=== PATIENT | male | born 1950 | race Caucasian/White ===

== ENCOUNTER 2019-05-14 08:26 | Inpatient (IN) | payer MEDICARE, OTHER ==
[2019-05-14] VITALS (20 sets, daily range): BP systolic 97–162; BP diastolic 40–79
[~2019-05-14] VITALS: Ht 182.9 cm; Wt 151.0 kg
[~2019-05-14 08:26] MED LIST: ASP81TEC PO; GLIM2TAB PO; LISI1TAB10 PO; METO25TA PO; MTF500T PO; MULT-974 PO; NAPR220C11 PO; PRV20T PO
--- OUTSIDE RECORDS SUMMARY | 2019-05-14 09:27 | XMS REPORT ---
Author Author CONSTANCE HERNANDEZ Organization [facility] Address [address] [place] [address] Care Team Providers Care Traverse Rod Assembler Name Role Phone CONSTANCE HERNANDEZ Unavailable PROBLEMS Type Condition ICD9-CM Code QLN17-SU Code Onset Dates Condition Status SNOMED Code Assessment Dental examination Z01.20 Oct, Active [id number] ALLERGIES Substance Reaction Event Type Date Status N.K.D.A. Unknown Non Drug Allergy Oct, Unknown SOCIAL HISTORY No smoking Hx information available PLAN OF CARE VITAL SIGNS Blood pressure systolic 158 mmHg 2016-11-06 Blood pressure diastolic 88 mmHg 2016-11-06 MEDICATIONS Medication Instructions Dosage Frequency Start Date End Date Duration Status Amoxicillin 500 MG Orally 4 times a day 1 capsule 6h 7 days Active Metoprolol-HCTZ ER Active Pravastatin Sodium Active Metformin HCl Active Lisinopril Active RESULTS No Results PROCEDURES Procedure Date Ordered Related Diagnosis Body Site COMP ORAL EVALUATION - NEW/EST PT Nov 06, 2016 BITEWINGS - FOUR FILMS Nov 06, 2016 Full mouth debridement Nov 06, 2016 PANORAMIC FILM SEE ALSO CODE [id number] Nov 06, 2016 IMMUNIZATIONS No Known Immunizations
--- OUTSIDE RECORDS SUMMARY | 2019-05-14 09:28 | XMS REPORT ---
Author Author EDILSON Fong [facility] Address Unknown Care Team Providers Care Stitch Bonding Machine Tender Helper Name Role Phone EDILSON Fong Unavailable PROBLEMS Unknown Problems ALLERGIES Substance Reaction Event Type Date Status N.K.D.A. Unknown Non Drug Allergy Oct, Unknown SOCIAL HISTORY No smoking Hx information available PLAN OF CARE Activity Details Follow Up prn Reason:celestino/hygiene VITAL SIGNS Blood pressure systolic 154 mmHg 2016-10-14 Blood pressure diastolic 75 mmHg 2016-10-14 MEDICATIONS Medication Instructions Dosage Frequency Start Date End Date Duration Status Lisinopril Active Pravastatin Sodium Active Amoxicillin 500 MG Orally 4 times a day 1 capsule 6h 7 days Active Metformin HCl Active Metoprolol-HCTZ ER Active RESULTS No Results PROCEDURES Procedure Date Ordered Related Diagnosis Body Site EXTRAC ERUPTED TOOTH/EXPOSED ROOT Oct 14, 2016 IMMUNIZATIONS No Known Immunizations
--- OUTSIDE RECORDS SUMMARY | 2019-05-14 09:28 | XMS REPORT ---
Author Author EDILSON Fong [facility] Address Unknown Care Team Providers Care Centrifugal Screen Tender Name Role Phone EDILSON Fong Unavailable PROBLEMS Unknown Problems ALLERGIES Substance Reaction Event Type Date Status N.K.D.A. Unknown Non Drug Allergy Dec, Unknown SOCIAL HISTORY No smoking Hx information available PLAN OF CARE VITAL SIGNS Blood pressure systolic 140 mmHg 2016-12-31 Blood pressure diastolic 93 mmHg 2016-12-31 MEDICATIONS Medication Instructions Dosage Frequency Start Date End Date Duration Status Metoprolol-HCTZ ER Active Amoxicillin 500 MG Orally 4 times a day 1 capsule 6h 7 days Active Pravastatin Sodium Active Metformin HCl Active Lisinopril Active RESULTS No Results PROCEDURES Procedure Date Ordered Related Diagnosis Body Site RESIN COMPOS - 3 SURFACES POSTERIOR Dec 31, 2016 Billing Notes on claim Dec 31, 2016 IMMUNIZATIONS No Known Immunizations
--- OUTSIDE RECORDS SUMMARY | 2019-05-14 09:28 | XMS REPORT | Continuity of Care Document ---
Author Author [facility] Organization [facility] Address Unknown Phone Unavailable Care Team Providers Care Refuge Manager Name Role Phone NO, LOCAL PHYSICIAN PP Unavailable Insurance Providers Payer Name Policy Number Subscriber Name Relationship Self Pay ShefaliMaranda Carrie 01 Self / Same As Patient Advance Directives Directive Response Recorded Date Advance Directives N 08/23/13 3:39pm Health Care Power of Mercury Cracking Tester N 08/23/13 3:39pm Organ Donor N 08/23/13 3:39pm Problems No Known Problems or Medical conditions. Family History History Response Recorded Date/Time Hx Family Cancer Y 08/23/13 3:34pm Hx Family Breast Cancer Y Mother 08/23/13 3:34pm Hx Family Colorectal Cancer Y Mother's side 08/23/13 3:34pm Hx Family Cardiac Disorders Y 08/23/13 3:34pm Hx Family Stroke N 08/23/13 3:34pm Hx Family Hypertension Y 08/23/13 3:34pm Hx Family Myocardial Infarction Y 08/23/13 3:34pm Hx Family Cystic Fibrosis N 08/23/13 3:34pm Social History History Response Recorded Date/Time Alcohol Use Denies Use 08/23/13 3:26pm Recreational Drug Use N 08/23/13 3:26pm Recent Foreign Travel N 08/23/13 3:26pm Recent Infectious Disease Exposure N 08/23/13 3:26pm Hospitalization with Isolation Denies 08/24/13 8:59pm Allergies, Adverse Reactions, Alerts Allergen Type Severity Reaction Last Updated No Known Drug Allergies 08/23/13 Medications Medication Dose Units Route Sig Qty Days Naproxen Sodium (Aleve) 2 Tab PO DAILY PRN Multivitamin (Multi Vitamin Daily) 1 Each PO DAILY Aspirin (Aspirin Ec 81 Mg) 81 Mg PO DAILY Glimepiride 2 Mg PO DAILY HCTZ/Lisinopril (Lisinopril-Hctz 20-25MG Tab) 20 Each PO DAILY Pravastatin Sod (Pravachol (Non-Formulary)) 40 Mg PO DAILY Metformin HCl (Metformin 500 Mg) 2 Each PO BID Metoprolol Succinate 12.5 Mg PO DAILY Response Recorded Date/Time Status not known Unknown Results Test Date Result Interp. Ref. Range Activated Partial Thromboplast Time August 23, 2013 11:40am 32 SEC N 24-35 Alanine Aminotransferase (ALT/SGPT) August 23, 2013 11:40am 52 U/L N 30-65 Albumin August 23, 2013 11:40am 3.7 G/DL N 3.4-5.0 Alkaline Phosphatase August 23, 2013 11:40am 96 U/L N 50-136 Amylase Level August 23, 2013 11:40am 38 U/L N 25-115 Aspartate Amino Transf (AST/SGOT) August 23, 2013 11:40am 29 U/L N 15-37 BUN/Creatinine Ratio August 23, 2013 11:40am 18 - Basophils # (Auto) August 23, 2013 11:40am 0.0 10^3/uL N 0.0-0.1 Basophils (%) (Auto) August 23, 2013 11:40am 1 % N 0-10 Blood Urea Nitrogen August 23, 2013 11:40am 16 MG/DL N 7-18 Calcium Level August 23, 2013 11:40am 8.9 MG/DL N 8.5-10.1 Carbon Dioxide Level August 23, 2013 11:40am 31 MMOL/L N 21-32 Chloride Level August 23, 2013 11:40am 103 MMOL/L N 101-110 Creatine Kinase MB August 23, 2013 11:40am 1.6 NG/ML N 0.0-3.6 Creatinine August 23, 2013 11:40am 0.9 MG/DL N 0.6-1.3 D-Dimer August 23, 2013 11:40am 0.24 UG/ML N 0.00-0.49 Eosinophils # (Auto) August 23, 2013 11:40am 0.3 10^3/uL N 0.0-0.3 Eosinophils (%) (Auto) August 23, 2013 11:40am 4 % N 0-10 Glucose Level August 23, 2013 11:40am 124 MG/DL H 74-106 Hematocrit August 23, 2013 11:40am 47 % N 40-54 Hemoglobin August 23, 2013 11:40am 15.9 G/DL N 13.3-17.7 Lipase August 23, 2013 11:40am 242 U/L N 73-393 Lymphocytes # (Auto) August 23, 2013 11:40am 2.5 X 10^3 N 1.0-4.0 Lymphocytes (%) (Auto) August 23, 2013 11:40am 30 % N 12-44 Magnesium Level August 23, 2013 11:40am 1.4 MG/DL L 1.8-2.4 Mean Corpuscular Hemoglobin August 23, 2013 11:40am 32 PG N 25-34 Mean Corpuscular Hemoglobin Concent August 23, 2013 11:40am 34 G/DL N 32-36 Mean Corpuscular Volume August 23, 2013 11:40am 93 FL N 80-99 Mean Platelet Volume August 23, 2013 11:40am 11.5 FL H 7.4-10.4 Monocytes # (Auto) August 23, 2013 11:40am 0.7 X 10^3 N 0.0-1.0 Monocytes (%) (Auto) August 23, 2013 11:40am 8 % N 0-12 Neutrophils # (Auto) August 23, 2013 11:40am 5.0 X 10^3 N 1.8-7.8 Neutrophils (%) (Auto) August 23, 2013 11:40am 58 % N 42-75 Platelet Count August 23, 2013 11:40am 170 10^3/uL N 130-400 Potassium Level August 23, 2013 11:40am 4.5 MMOL/L N 3.6-5.0 Prothrombin Time August 23, 2013 11:40am 12.6 SEC N 12.2-14.7 Red Blood Count August 23, 2013 11:40am 5.04 10^6/uL N 4.35-5.85 Red Cell Distribution Width August 23, 2013 11:40am 14.8 % H 10.0-14.5 Sodium Level August 23, 2013 11:40am 139 MMOL/L N 135-145 Total Bilirubin August 23, 2013 11:40am 0.3 MG/DL N 0.0-1.0 Total Creatine Kinase August 23, 2013 11:40am 92 U/L N 1-205 Total Protein August 23, 2013 11:40am 7.5 G/DL N 6.4-8.2 Troponin I August 23, 2013 11:40am < 0.10 NG/ML 0.00-0.10 White Blood Count August 23, 2013 11:40am 8.5 10^3/uL N 4.3-11.0 Pro-B-Type Natriuretic Peptide August 23, 2013 11:40am 34.7 PG/ML N -125 Estimat Glomerular Filtration Rate August 23, 2013 11:40am > 60 - INR Comment August 23, 2013 11:40am 1.0 N 0.8-1.4 Encounters Encounter Location Date/Time Discharged Inpatient [facility] 08/23/13 1:35pm
--- OUTSIDE RECORDS SUMMARY | 2019-05-14 09:28 | XMS REPORT | Continuity of Care Document ---
Author Organization Unknown Address Unknown Allergies Active Description Code Type Severity Reaction Onset Reported/Identified Relationship to Patient Clinical Status Yes NO KNOWN DRUG ALLERGIES NO KNOWN DRUG ALLERG UNKNOWN Yes NO KNOWN DRUG ALLERGIES UNKNOWN NO KNOWN DRUG ALLERG Yes NO KNOWN DRUG ALLERGIES UNKNOWN UNKNOWN Yes No Known Drug Allergies [id number] Drug Allergy Unknown N/A 08/23/2013 Medications Medication Packaging Start Date Stop Date Route Dosage Sig ORPHENADRINE INJ 60 MG/2CC (NORFLEX) MG 11/25/2016 11/25/2016 ONCE&2210 KETOROLAC VIAL INJ 30 MG/CC (TORADOL VIAL) MG 11/25/2016 11/25/2016 ONCE&2210 CYCLOBENZAPRINE TAB 10 MG (FLEXERIL) MG 11/25/2016 11/25/2016 PRN ONCE METFORMIN TAB 500 MG (GLUCOPHAGE) Dose(s) 08/03/2018 08/10/2018 BID&0800,2000 FAMOTIDINE TAB 20 MG (PEPCID) Dose(s) 08/03/2018 08/10/2018 BID&0800,2000 GLIMEPIRIDE TAB 2 MG (AMARYL) Dose(s) 08/03/2018 08/10/2018 BID&0800,2000 METOPROLOL TAB 25 MG (LOPRESSOR) Dose(s) 08/03/2018 08/10/2018 BID&0800,2000 NORMAL SALINE 500CC IV BAG INJ 0.9 % (NS 500CC IV BAG) ml 08/03/2018 08/18/2018 CONTINUOUSEVERY 0 Hour DICLOFENAC GEL GEL 1 % (VOLTAREN GEL) Dose(s) 08/03/2018 08/10/2018 PRN Q6H CLOPIDOGREL TAB 75 MG (PLAVIX) Dose(s) 08/04/2018 08/10/2018 Daily&0900 ASPIRIN 81MG CHEWABLE TAB 81 MG (BABY ASPIRIN) Dose(s) 08/04/2018 08/10/2018 Daily&0900 MultiVits (Thera M Plus) (hyvwkpbc-pigb-zukpyhu) oral tablet Dose(s) 08/04/2018 09/02/2018 Daily&0900 LISINOPRIL TAB 10 MG (ZESTRIL) Dose(s) 08/04/2018 08/10/2018 Daily&0900 LACTATED RINGERS 1000CC IV BAG INJ ml 10/05/2018 10/12/2018 CONTINUOUSEVERY 0 Hour Problems Date Dx Coded Attending Type Code Diagnosis Diagnosed By 11/25/2016 NAIMA GAN 250.00 DIABETES MELLITUS WITHOUT MENTION OF COMPLICATION, TYPE II OR UNSPECIFIED TYPE, NOT STATED UNCONTROLLED 11/25/2016 NAIMA GAN 272.4 OTHER AND UNSPECIFIED HYPERLIPIDEMIA 11/25/2016 NAIMA GAN 401.9 UNSPECIFIED ESSENTIAL HYPERTENSION 11/25/2016 NAIMA GAN 719.41 PAIN IN JOINT INVOLVING SHOULDER REGION 11/25/2016 NAIMA GAN 847.0 11/25/2016 NAIMA GAN E11.9 TYPE 2 DIABETES MELLITUS WITHOUT COMPLICATIONS 11/25/2016 NAIMA GAN E78.5 HYPERLIPIDEMIA, UNSPECIFIED 11/25/2016 NAIMA GAN I10 ESSENTIAL (PRIMARY) HYPERTENSION 11/25/2016 NAIMA GAN M25.512 PAIN IN LEFT SHOULDER 11/25/2016 NAIMA GAN S16.1XXA STRAIN OF MUSCLE, FASCIA AND TENDON AT NECK LEVEL, INITIAL ENCOUNTER 09/17/2017 Paris Moreno 443.9 PERIPHERAL VASCULAR DISEASE, UNSPECIFIED 09/17/2017 Paris Moreno 443.9 PERIPHERAL VASCULAR DISEASE, UNSPECIFIED 02/24/2018 A 491.20 OBSTRUCTIVE CHRONIC BRONCHITIS, WITHOUT EXACERBATION 02/24/2018 A J44.9 CHRONIC OBSTRUCTIVE PULMONARY DISEASE, UNSPECIFIED 06/02/2018 Andry Arroyo A 491.20 OBSTRUCTIVE CHRONIC BRONCHITIS, WITHOUT EXACERBATION 06/02/2018 Andry Arroyo J44.9 CHRONIC OBSTRUCTIVE PULMONARY DISEASE, UNSPECIFIED 06/19/2018 ARIADNA KAUFMAN 726.11 CALCIFYING TENDINITIS OF SHOULDER 06/19/2018 ARIADNA KAUFMAN 726.2 OTHER AFFECTIONS OF SHOULDER REGION, NOT ELSEWHERE CLASSIFIED 06/19/2018 ARIADNA KAUFMAN M75.32 CALCIFIC TENDINITIS OF LEFT SHOULDER 06/19/2018 ARIADNA KAUFMAN M75.42 IMPINGEMENT SYNDROME OF LEFT SHOULDER 07/31/2018 ARIADNA KAUFMAN 726.11 CALCIFYING TENDINITIS OF SHOULDER 07/31/2018 ARIADNA KAUFMAN 726.2 OTHER AFFECTIONS OF SHOULDER REGION, NOT ELSEWHERE CLASSIFIED 07/31/2018 ARIADNA KAUFMAN M75.32 CALCIFIC TENDINITIS OF LEFT SHOULDER 07/31/2018 ARIADNA KAUFMAN M75.42 IMPINGEMENT SYNDROME OF LEFT SHOULDER 08/03/2018 Josh, Paris W 250.00 DIABETES MELLITUS WITHOUT MENTION OF COMPLICATION, TYPE II OR UNSPECIFIED TYPE, NOT STATED UNCONTROLLED 08/03/2018 Nidhi Morenoa W 272.4 OTHER AND UNSPECIFIED HYPERLIPIDEMIA 08/03/2018 Josh, Paris W 401.9 UNSPECIFIED ESSENTIAL HYPERTENSION 08/03/2018 Josh, Paris W 496 CHRONIC AIRWAY OBSTRUCTION, NOT ELSEWHERE CLASSIFIED 08/03/2018 Josh Paris W 782.0 DISTURBANCE OF SKIN SENSATION 08/03/2018 Josh Paris W E11.9 TYPE 2 DIABETES MELLITUS WITHOUT COMPLICATIONS 08/03/2018 Josh, Paris W E78.5 HYPERLIPIDEMIA, UNSPECIFIED 08/03/2018 Josh, Paris W I10 ESSENTIAL (PRIMARY) HYPERTENSION 08/03/2018 Josh Paris W J44.9 CHRONIC OBSTRUCTIVE PULMONARY DISEASE, UNSPECIFIED 08/03/2018 Josh, Paris W R20.2 PARESTHESIA OF SKIN 08/04/2018 Josh, Paris W 250.00 DIABETES MELLITUS WITHOUT MENTION OF COMPLICATION, TYPE II OR UNSPECIFIED TYPE, NOT STATED UNCONTROLLED 08/04/2018 Nidhi Morenoa W 272.4 OTHER AND UNSPECIFIED HYPERLIPIDEMIA 08/04/2018 Josh, Paris W 401.9 UNSPECIFIED ESSENTIAL HYPERTENSION 08/04/2018 Josh, Paris W 496 CHRONIC AIRWAY OBSTRUCTION, NOT ELSEWHERE CLASSIFIED 08/04/2018 Josh, Paris W 782.0 DISTURBANCE OF SKIN SENSATION 08/04/2018 Josh, Paris W E11.9 TYPE 2 DIABETES MELLITUS WITHOUT COMPLICATIONS 08/04/2018 Josh, Paris W E78.5 HYPERLIPIDEMIA, UNSPECIFIED 08/04/2018 Josh, Paris W I10 ESSENTIAL (PRIMARY) HYPERTENSION 08/04/2018 Josh Paris W J44.9 CHRONIC OBSTRUCTIVE PULMONARY DISEASE, UNSPECIFIED 08/04/2018 Paris Moreno W R20.2 PARESTHESIA OF SKIN 08/04/2018 Nidhi Morenoa W 250.00 DIABETES MELLITUS WITHOUT MENTION OF COMPLICATION, TYPE II OR UNSPECIFIED TYPE, NOT STATED UNCONTROLLED 08/04/2018 Nidhi Morenoa W 272.4 OTHER AND UNSPECIFIED HYPERLIPIDEMIA 08/04/2018 Nidhi Morenoa W 401.9 UNSPECIFIED ESSENTIAL HYPERTENSION 08/04/2018 Nidhi Morenoa W 443.9 08/04/2018 Josh Paris W 496 CHRONIC AIRWAY OBSTRUCTION, NOT ELSEWHERE CLASSIFIED 08/04/2018 Paris Moreno A 782.0 DISTURBANCE OF SKIN SENSATION 08/04/2018 Nidhi Morenoa W E11.9 TYPE 2 DIABETES MELLITUS WITHOUT COMPLICATIONS 08/04/2018 Paris Moreno W E78.5 HYPERLIPIDEMIA, UNSPECIFIED 08/04/2018 Nidhi Morenoa W I10 ESSENTIAL (PRIMARY) HYPERTENSION 08/04/2018 Paris Moreno W I73.9 PERIPHERAL VASCULAR DISEASE, UNSPECIFIED 08/04/2018 Josh Paris W J44.9 CHRONIC OBSTRUCTIVE PULMONARY DISEASE, UNSPECIFIED 08/04/2018 Paris Moreno A R20.2 PARESTHESIA OF SKIN 09/08/2018 W 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 09/08/2018 W M50.30 OTHER CERVICAL DISC DEGENERATION, UNSP CERVICAL REGION 09/24/2018 A 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 Results Test Result Range Pulmonary Function Hemoglobin - 02/05/18 12:09 Hgb 17.0 g/dL 14.0-17.0 EKG - 08/03/18 18:45 EKG Complete Cardiac Panel - 08/03/18 18:45 CK 101 U/L 26-174 CK-MB 2.9 ng/ml 0.0-9.2 Myoglobin 70.3 ng/ml 1.6-154.9 Troponin <0.020 ng/mL 0.0-0.4 BMP - 08/04/18 05:23 Anion Gap 18 6-14 BUN 33 mg/dL 5-25 Calcium 9.6 mg/dL 8.3-10.4 Chloride 106 mmol/L 95-114 CO2 23 mEq/L 22-33 Creat 1.22 mg/dL 0.50-1.50 eGFR 60 mL/min/1.73m2 >59 Glucose 111 mg/dL 70-110 Osmo 301 280-295 Potassium 4.8 mmol/L 3.5-5.3 Sodium 142 mmol/L 134-148 Comprehensive Metabolic Panel - 09/29/18 13:11 Albumin 4.1 g/dL 3.6-5.1 ALP 64 U/L 35-130 ALT 33 U/L 6-45 Anion Gap 17 6-14 AST 36 U/L 2-40 BUN 21 mg/dL 5-25 Calcium 10.0 mg/dL 8.3-10.4 Chloride 106 mmol/L 95-114 CO2 21 mEq/L 22-33 Creat 1.06 mg/dL 0.50-1.50 eGFR 70 mL/min/1.73m2 >59 Globulin 3.0 g/dL 2.3-3.5 Glucose 124 mg/dL 70-110 Osmo 291 280-295 Potassium 5.2 mmol/L 3.5-5.3 Sodium 139 mmol/L 134-148 TBil 0.3 mg/dL 0.2-1.2 TP 7.1 g/dL 6.0-8.3 Hemoglobin A1C - 04/23/19 10:00 % A1C 7.40 % 5.40-6.60 AvGlu 184 mg/dL 70-110 Encounters ACCT No. Visit Date/Time Discharge Status Pt. Type Provider Facility Loc./Unit Complaint [id number] 04/23/2019 09:56:00 04/23/2019 23:59:00 DIS Outpatient Zen Carrasco [id number] 03/03/2019 14:53:00 03/03/2019 23:59:00 DIS Outpatient Paris Moreno [id number] 10/05/2018 08:45:00 10/05/2018 12:13:00 DIS Outpatient Yesica Soni [id number] 09/29/2018 12:48:00 09/29/2018 23:59:00 DIS Outpatient Yesica Soni [id number] 08/31/2018 11:05:00 08/31/2018 23:59:00 DIS Outpatient Paris Moreno [id number] 08/05/2018 10:32:00 08/05/2018 23:59:00 DIS Outpatient Paris Moreno [id number] 08/03/2018 18:25:00 08/04/2018 10:15:00 DIS Outpatient Josh [facility] [id number] 06/17/2018 12:34:00 07/31/2018 13:48:00 DIS Outpatient ARIADNA KAUFMAN [id number] 02/27/2018 09:16:00 06/02/2018 08:58:00 DIS Outpatient Cruz Andry [id number] 05/25/2018 12:30:00 05/25/2018 23:59:00 DIS Outpatient Paris Moreno [id number] 02/05/2018 12:01:00 02/05/2018 23:59:00 DIS Outpatient aPris Moreno [id number] 09/17/2017 11:49:00 09/17/2017 23:59:00 DIS Outpatient Paris Moreno [id number] 11/25/2016 20:43:00 11/25/2016 22:40:00 [id number]2018 12:40:14 Document Registration [id number] 02/24/2018 12:59:39 Document Registration [id number] 11/25/2016 22:10:53 Document Registration [id number] 02/02/2018 15:30:00 02/02/2018 23:59:59 [facility] Preadmit AMANDEEP TOSCANO APRN [facility] RT SOB [id number] 02/09/2014 13:18:00 02/09/2014 00:01:00 DIS Outpatient [id number] 08/23/2013 13:35:00 08/24/2013 14:50:00 DIS Outpatient
--- OUTSIDE RECORDS SUMMARY | 2019-05-14 09:28 | XMS REPORT | Continuity of Care Document ---
Author Author [facility] Organization [facility] Address Unknown Phone Unavailable Care Team Providers Care Senior Patient Account Representative Name Role Phone NO, LOCAL PHYSICIAN PP Unavailable Insurance Providers Payer Name Policy Number Subscriber Name Relationship Self Pay ShefaliMaranda Carrie 01 Self / Same As Patient Advance Directives Directive Response Recorded Date Advance Directives N 08/23/13 3:39pm Health Care Power of Manager Product Support N 08/23/13 3:39pm Organ Donor N 08/23/13 [...] N 08/23/13 3:26pm Hospitalization with Isolation Denies 08/25/13 11:53am Allergies, Adverse Reactions, Alerts Allergen Type Severity [...] Recorded Date/Time Status not known Unknown Results No Known Relevant Diagnostic Tests, Laboratory Data and/or Discharge Summary.
[2019-05-14] MEDS ORDERED: CATHETER FLUSH 10 ML SYR IV PRN (09:45)
--- NOTE | 2019-05-14 09:46 | Pulmonary Consultation ---
History of Present Illness History of Present Illness Date of Consultation 05/14/19 09:42 Time Seen by Provider: 09:44 Date of Admission History of Present Illness 68yo with morbid obesity directly transferred from [facility] secondary to acute respiratory failure/acidosis. Pt is now on BiPAP and repeat ABG is pending. unable to obtain ROS. Labs and CXR are pending. Allergies and Home Medications Allergies Coded Allergies: No Known Drug Allergies (Verified , 05/17/19) Home Medications Aspirin 81 Mg Tablet.dr, 81 MG PO DAILY, (Reported) Clopidogrel Bisulfate 75 Mg Tablet, 75 MG PO DAILY, (Reported) Famotidine 20 Mg Tablet, 20 MG PO BID, (Reported) Furosemide 40 Mg Tablet, 40 MG PO DAILY PRN for SWELLING, (Reported) Gabapentin 300 Mg Capsule, 300 MG PO DAILY, (Reported) Gabapentin 300 Mg Capsule, 600 MG PO HS, (Reported) TAKES 2 (300MG) CAPSULES Glimepiride 4 Mg Tablet, 4 MG PO BID, (Reported) Lisinopril 10 Mg Tablet, 10 MG PO DAILY, (Reported) Metformin HCl 500 Mg Tablet, 1,000 MG PO BID, (Reported) TAKES 2 (500MG) TABLETS Metoprolol Tartrate 25 Mg Tablet, 12.5 MG PO BID, (Reported) TAKES 1/2 (25MG) TABLET Multivitamin 1 Each Tablet, 1 TAB PO DAILY, (Reported) Potassium Chloride 20 Meq Tab.er.prt, 20 MEQ PO DAILY PRN for WHEN TAKING FUROSEMIDE, (Reported) Pravastatin Sodium 40 Mg Tablet, 40 MG PO DAILY, (Reported) Past Hjwirrf-Tjuctm-Xmqesc Hx Immunizations Up To Date Tetanus Booster (TDap): More than 5yrs Past Medical History Diabetes, Non-Insulin dep Adverse Reaction/Blood Tranf: No Review of Systems Time Seen by Provider: 13:03 Sepsis Event Evaluation Height, Weight, BMI Height: 5'10.00" Weight: 301lbs. 0.0oz. 136.379590kh; 43.2 BMI Method:Stated Exam Exam Height & Weight Height: 5'10.00" Weight: 301lbs. 0.0oz. 136.907305rb; 43.2 BMI Method:Stated General Appearance: Anxious, Moderate Distress HEENT: PERRL/EOMI, Pharynx Normal Neck: Normal Inspection, Non Tender, Supple Respiratory: Accessory Muscle Use, Crackles, Decreased Breath Sounds Cardiovascular: Regular Rate, Rhythm, No Edema Capillary Refill: Less Than 3 Seconds Gastrointestinal: normal bowel sounds, non tender, soft Extremity: Normal Capillary Refill, Normal Inspection, No Pedal Edema Neurologic/Psychiatric: Other (lethargic) Skin: Normal Color, Warm/Dry Lymphatic: No Adenopathy Assessment/Plan Assessment/Plan Acute on chronic respiratory failure with C02 narcosis -SVNS Q 4 -BiPAP -Repeat ABG 1hr after BiPAP is placed -Check labs and CXR -repeat labs, cxr, BNP pending Hyperkalemia -bicarb, kayexalate, and insulin -recheck Dm II SIDNEY/OHS CAD Acute renal failure ANIYA DUDLEY DO May 14, 2019 09:46
--- NOTE | 2019-05-14 10:06 | Diagnostic Imaging Report ---
CLINICAL INDICATION: Patient with shortness of breath. EXAM: Portable chest x-ray upright view. COMPARISONS: Chest x-ray dated 08/23/2013. FINDINGS: Again seen cardiomegaly. There is no significant pulmonary vascular congestion. There is stable elevation of right hemidiaphragm. There is no interval lung infiltrate. There are interval postop changes to the chest with sternotomy wires. There are hypertrophic spurs involving the spine. IMPRESSION: 1: There is cardiomegaly with no significant pulmonary vascular congestion. 2: There is no definite lung infiltrate. 3: There is stable elevation right hemidiaphragm. Dictated by: Dictated on workstation # [id number]
[2019-05-14 10:34] LABS: BASOPHILS % (AUTO) 0 % (0-10); EOSINOPHILS % (AUTO) 0 % (0-10); HEMATOCRIT 34 % (40-54); HEMOGLOBIN 10.4 G/DL (13.3-17.7); LYMPHOCYTES # (AUTO) 1.5 X 10^3 (1.0-4.0); LYMPHOCYTES % (AUTO) 11 % (12-44); MEAN CORPUSCULAR HEMOGLOBIN 30 PG (25-34); MEAN CORPUSCULAR HGB CONC 31 G/DL (32-36); MEAN CORPUSCULAR VOLUME 97 FL (80-99); MONOCYTES # (AUTO) 1.4 X 10^3 (0.0-1.0); MONOCYTES % (AUTO) 11 % (0-12); NEUTROPHILS # (AUTO) 10.1 X 10^3 (1.8-7.8); NEUTROPHILS % (AUTO) 77 % (42-75); PLATELET COUNT 197 10^3/uL (130-400); RED CELL DISTRIBUTION WIDTH 15.9 % (10.0-14.5)
--- NOTE | 2019-05-14 10:41 | CONSULTATION REPORT ---
DATE OF SERVICE: 05/14/2019 ATTENDING PHYSICIAN: Dr. Law. SUMMARY: A 68-year-old white man, underwent spinal surgery and a catheter in. The patient was in [place]. Dr. Law was notified that he had carbon dioxide retention and as well as gross hematuria and clot retention. There was apparently no difficulty putting the catheter. She transferred the patient to the ICU and asked me in consultation for the gross hematuria. I went and saw the patient and the patient looks good. His urine is crystal clear, carolee yellow, no clots, on a regular catheter. The patient denies any voiding symptoms at home. IMPRESSION: History of gross hematuria, resolved. RECOMMENDATION: Leave things as is now regarding urological. PLAN: Leave the catheter. No need for further instrumentation of the urethra. If he develops gross hematuria or clots, he will have to notify me. I will recheck him again in the morning. Job ID: [id number] DocumentID: [id number] Dictated Date: 05/14/2019 09:25:22 Application Technician Date: 05/14/2019 10:40:06 Dictated By: NOÉ BURNS MD
[2019-05-14 10:54] LABS: ALBUMIN 3.4 GM/DL (3.2-4.5); BILIRUBIN,TOTAL 0.3 MG/DL (0.1-1.0); CALCIUM 7.3 MG/DL (8.5-10.1); CREATININE SERUM 2.75 MG/DL (0.60-1.30); MAGNESIUM 1.3 MG/DL (1.8-2.4); PHOSPHORUS 6.4 MG/DL (2.3-4.7)
[2019-05-14] MEDS: NS IV 1000 ML 1,000 ML IV SCH ×3 (11:17→19:40)
[2019-05-14 11:23] LABS: POTASSIUM 7.6 MMOL/L (3.6-5.0)
--- NOTE | 2019-05-14 11:26 | History & Physical-Hospitalist ---
History of Present Illness HPI/Chief Complaint Chief complaint: CO2 narcosis History of present illness: This is a 68-year-old white male clinic patient of Dr. Moreno and Dr. Hernández cardiology who presents after an uncomplicated lumbar spine surgery by Dr. Carrasco yesterday who is becoming more and more somnolent later this morning after an uneventful night then appeared to have CO2 retention causing confusion. ABG was checked revealing pH is 7.1 and CO2 of 56 in addition he had clot retention and the Alves catheter causing decrease in urinary output with elevated creatinine. He was found to be criteria to be transferred to via [facility] ICU and Dr. Ahn and Dr. Duke graciously accepted consultation request along with urology. Potassium is retained due to postobstructive outflow with clot retention but now he is not requiring bladder irrigation to resolve the clot retention and hopefully will help creatinine decline and facilitate hyperkalemia which is also being treated with Kayexalate and IV insulin and albuterol breathing treatments. Source: patient Exam Limitations: no limitations Date Seen 05/14/19 Time Seen by a Provider: 10:30 Attending Physician Cintia Long Lisa A MD Referring Physician Date of Admission May 14, 2019 at 09:24 Home Medications & Allergies Home Medications Reviewed patient Home Medication Reconciliation performed by pharmacy medication reconciliations tractor trailer technician and/or nursing. Patients Allergies have been reviewed. Allergies Allergies Coded Allergies No Known Drug Allergies (Unverified08/23/13) Past Dhrfxxp-Dfaaku-Qoiiez Hx Past Med/Social Hx: Reviewed Nursing Past Med/Soc Hx, Reviewed and Corrections made Patient Social History Employed/Student: retired Smoking Status: Unknown if Ever Smoked Immunizations Up To Date Tetanus Booster (TDap): More than 5yrs Past Medical History Surgeries: CABG Respiratory: COPD, Sleep Apnea Cardiac: Coronary Artery Disease, High Cholesterol, Hypertension Neurological: Neuropathy Genitourinary: Benign Prostatic Hyperpl Gastrointestinal: Gastroesophageal Reflux, Chronic Constipation Musculoskeletal: Arthritis, Chronic Back Pain Endocrine: Diabetes, Non-Insulin dep Adverse Reaction to Blood Crockett: No Review of Systems ROS-Unable to Obtain: unable to obtain details from patient Constitutional: see HPI Physical Exam Physical Exam Vital Signs Vital Signs - First Documented 05/14/19 09:00 Pulse 78 Resp 9 B/P (MAP) 97/65 (76) Pulse Ox 94 O2 Delivery NIV Bilevel O2 Flow Rate 30.00 Capillary Refill : Height, Weight, BMI Height: 5'10.00" Weight: 301lbs. 0.0oz. [id number]; 43.2 BMI Method:Stated General Appearance: No Apparent Distress, WD/WN, Chronically ill, Obese Eyes: Right Eye Normal Inspection, Right Eye PERRL HEENT: PERRL/EOMI, Normal ENT Inspection, Pharynx Normal, Moist Mucous Membranes Neck: Full Range of Motion, Normal Inspection, Non Tender Respiratory: Chest Non Tender, Lungs Clear, No Respiratory Distress, Decreased Breath Sounds, Wheezing, Other (on biPAP) Cardiovascular: Regular Rate, Rhythm, No Edema, No Gallop, No JVD, No Murmur, Normal Peripheral Pulses Gastrointestinal: Normal Bowel Sounds, No Organomegaly, No Pulsatile Mass, Non Tender, Soft Back: Normal Inspection, No CVA Tenderness, No Vertebral Tenderness Extremity: Normal Capillary Refill, Normal Inspection, Normal Range of Motion, Non Tender, No Calf Tenderness, No Pedal Edema Neurologic/Psychiatric: Alert, Oriented x3, No Motor/Sensory Deficits, Normal Mood/Affect Skin: Normal Color, Warm/Dry Lymphatic: No Adenopathy Results Results/Procedures Labs Laboratory Tests 05/14/19 10:27 Patient resulted labs reviewed. Assessment/Plan Admission Diagnosis Assessment: Acute respiratory failure CO2 narcosis Obstructive sleep apnea with CPAP CAD Elevated BNP Acute renal failure Hyperkalemia Hypertension Diabetes mellitus Plan: BiPAP Follow ABG Appreciate Dr. Duke and Dr. Ahn consultations along with urology Maintain Alves catheter Treat hyperkalemia Monitor closely Gentle IV fluids Admission Status: Inpatient Order (span 2 midnights) Reason for Inpatient Admission: Respiratory failure requiring noninvasive ventilation Diagnosis/Problems Diagnosis/Problems (1) CO2 narcosis Status: Acute (2) SIDNEY on CPAP Status: Chronic (3) CAD (coronary artery disease) Status: Chronic Qualifiers: Coronary Disease-Associated Artery/Lesion type: [place] artery [place] vs. transplanted heart: [place] heart Associated angina: without angina Qualified Codes: I25.10 - Atherosclerotic heart disease of [place] coronary artery without angina pectoris (4) Diabetes mellitus Status: Chronic Qualifiers: Diabetes mellitus type: type 2 Diabetes mellitus rat exterminator insulin use: without skilled nursing use Diabetes mellitus complication status: with other specified complication Qualified Codes: E11.69 - Type 2 diabetes mellitus with other specified complication (5) Obesity Status: Chronic Qualifiers: Obesity type: due to excess calories Obesity classification: adult class 3 (BMI >= 40) Serious obesity comorbidity presence: with serious comorbidity B lu mass index: BMI 40.0-44.9 Qualified Codes: E66.01 - Morbid (severe) obesity due to excess calories; Z68.41 - Body mass index (BMI) 40.0-44.9, adult (6) Status post lumbar spine surgery for decompression of spinal cord Status: Acute (7) Renal failure Status: Acute Qualifiers: Acute renal failure type: unspecified Chronic kidney disease stage: stage 4 (severe) (8) Hyperkalemia Status: Acute (9) Clot retention of urine Status: Acute (10) Elevated brain natriuretic peptide (BNP) level Status: Acute CINTIA LONG DO May 14, 2019 11:26
[2019-05-14] MEDS ORDERED: MULT1TAB69 PO (11:30)
[2019-05-14] MEDS ORDERED: FAMO20TA5 PO (11:30)
[2019-05-14] MEDS ORDERED: METO-333 PO (11:30)
[2019-05-14] MEDS ORDERED: ASPI-983 PO (11:30)
[2019-05-14] MEDS ORDERED: GABA-488 PO ×2 (11:30)
[2019-05-14] MEDS ORDERED: CLOP75TA28 PO (11:30)
[2019-05-14] MEDS ORDERED: METF-397 PO (11:30)
[2019-05-14] MEDS ORDERED: LISI10TA2 PO (11:30)
[2019-05-14] MEDS ORDERED: FURO40TA4 PO (11:30)
[2019-05-14] MEDS ORDERED: POTA20TA15 PO (11:30)
[2019-05-14] MEDS ORDERED: PRAV40TA2 PO (11:30)
[2019-05-14] MEDS ORDERED: GLIM4TAB PO (11:30)
[2019-05-14] MEDS ORDERED: SOD POLYSTERENE 15 GM/60 ML (KAYEXALATE) UNIT DOSE PO NR (11:31)
--- NOTE | 2019-05-14 11:36 | NUR ---
THERE WAS A COPY OF THE PATIENTS MEDICATION LIST ON THE CHART, I COMPARED IT WITH THE EXT MED HX AND IT MATCHES COMPLETELY. I ASKED THE PATIENT A FEW QUESTIONS ABOUT HIS METFORMIN AND METOPROLOL, HE VERIFIED HE TAKES 2 METFORMIN BID AND 1/2 METOPROLOL BID. HE ALSO VERIFIED THE MEDICATION LIST ON THE CHART THAT I SHOWED HIM IS UP TO DATE. HE TAKES ASPIRIN 81MG RANKIN AND A MTV DAILY OTC.
[2019-05-14] MEDS ORDERED: inSUlin (REGULAR) HUMAN 1 UNIT/0.01 ML (CHARGE PER UNIT) IV NR (11:40)
[2019-05-14] MEDS ORDERED: SODIUM BICARB 8.4% 50 MEQ/50 ML VIAL ONE (13:09)
[2019-05-14] MEDS ORDERED: DEXTROSE 50% 50 ML (IMS) SYR ONE (13:09)
[2019-05-14] MEDS ORDERED: DEXTROSE 50% 50 ML (IMS) SYR IV ONE (13:15)
[2019-05-14] MEDS ORDERED: SODIUM BICARB 8.4% 50 MEQ/50 ML VIAL IV ONE (13:15)
[2019-05-14 13:22] LABS: ABG BASE EXCESS -1.2 MMOL/L (-2.5-2.5); ABG OXYGEN SATURATION 96 % (94-100); ABG PCO2 66 MMHG (35-45); ABG PO2 79 MMHG (79-93); ABG TCO2 27.6 MMOL/L (21.0-31.0)
[2019-05-14] MEDS: SOD POLYSTERENE 15 GM/60 ML (KAYEXALATE) UNIT DOSE PO SCH ×2 (13:23→22:43)
[2019-05-14 13:24] LABS: ABG PH 7.22 (7.37-7.43); ALLENS TEST YES-POS; INSPIRED O2 40% BIPAP; PATIENT TEMP 98.8; VENTILATOR NO
[2019-05-14] MEDS: RT-ALBUTEROL/IPRATROPIUM 3 ML (DUONEB) VIAL INH SCH ×3 (14:15→20:49)
--- NOTE | 2019-05-14 15:07 | Consultation-Cardiology ---
HPI-Cardiology Cardiology Consultation Date of Consultation 05/14/19 Date of Admission Time Seen by Provider: 15:01 Indication: CAD HPI 68-year-old gentleman with history of coronary artery disease, had CABG 6 done in 2012, has been following with Dr. Adkins with history of interventions in the past. Patient underwent lumbar spine surgery with Dr. Carrasco yesterday, postoperatively he was unsteady and having some dizziness, overnight he continued to be somnolent and tired and confused. Appear to have CO2 retention, patient was transferred, on my evaluation he was noted to use a BiPAP machine, he is awake, tired, denied any chest pain, no palpitation, has history of COPD and sleep apnea. Has been having difficulty with urinary obstruction with blood clots. Progressed into renal failure. From cardiology standpoint patient denied any active pain, EKG did not show any acute abnormality, he is in acute renal failure and acute respiratory failure Home Medications & Allergies Allergies: Coded Allergies: No Known Drug Allergies (Unverified , 08/23/13) Home Medication List Reviewed: Yes IPU-Iavsuj-Knpjbu Hx Patient Social History Marital Status: Employed/Student: retired Smoking Status: Unknown if Ever Smoked Immunizations Up To Date Tetanus Booster (TDap): More than 5yrs Past Medical History discussed below Family Medical History Family Medical Hx noncontributory to his current condition Review of Systems-General Review of Systems Constitutional: see HPI, malaise, weakness EENTM: no symptoms reported Respiratory: cough, dyspnea on exertion, orthopnea, phlegm, short of breath, wheezing Cardiovascular: see HPI; No chest pain; edema; No Hx of Intervention, No p alpitations, No syncope, No vascular heart diseas, No other Gastrointestinal: no symptoms reported, see HPI Genitourinary: see HPI, other (patient had obstructive uropathy) Musculoskeletal: back pain, joint pain, muscle weakness Skin: see HPI Psychiatric/Neurological: See HPI Reviewed Test Results Reviewed Test Results Lab Laboratory Tests Test 05/14/19 10:27 05/14/19 12:00 05/14/19 13:16 Range/Units White Blood Count 13.0 H 4.3-11.0 10^3/uL Red Blood Count 3.48 L 4.35-5.85 10^6/uL Hemoglobin 10.4 L 13.3-17.7 G/DL Hematocrit 34 L 40-54 % Mean Corpuscular Volume 97 80-99 FL Mean Corpuscular Hemoglobin 30 25-34 PG Mean Corpuscular Hemoglobin Concent 31 L 32-36 G/DL Red Cell Distribution Width 15.9 H 10.0-14.5 % Platelet Count 197 130-400 10^3/uL Mean Platelet Volume 7.4-10.4 FL Neutrophils (%) (Auto) 77 H 42-75 % Lymphocytes (%) (Auto) 11 L 12-44 % Monocytes (%) (Auto) 11 0-12 % Eosinophils (%) (Auto) 0 0-10 % Basophils (%) (Auto) 0 0-10 % Neutrophils # (Auto) 10.1 H 1.8-7.8 X 10^3 Lymphocytes # (Auto) 1.5 1.0-4.0 X 10^3 Monocytes # (Auto) 1.4 H 0.0-1.0 X 10^3 Eosinophils # (Auto) 0.0 0.0-0.3 10^3/uL Basophils # (Auto) 0.0 0.0-0.1 10^3/uL Sodium Level 134 L 135-145 MMOL/L Potassium Level 7.6 *H 3.6-5.0 MMOL/L Chloride Level 102 98-107 MMOL/L Carbon Dioxide Level 23 21-32 MMOL/L Anion Gap 9 5-14 MMOL/L Blood Urea Nitrogen 37 H 7-18 MG/DL Creatinine 2.75 H 0.60-1.30 MG/DL Estimat Glomerular Filtration Rate 23 BUN/Creatinine Ratio 13 Glucose Level 216 H 70-105 MG/DL Calcium Level 7.3 L 8.5-10.1 MG/DL Corrected Calcium 7.8 L 8.5-10.1 MG/DL Phosphorus Level 6.4 H 2.3-4.7 MG/DL Magnesium Level 1.3 L 1.8-2.4 MG/DL Total Bilirubin 0.3 0.1-1.0 MG/DL Aspartate Amino Transf (AST/SGOT) 364 H 5-34 U/L Alanine Aminotransferase (ALT/SGPT) 140 H 0-55 U/L Alkaline Phosphatase 62 40-136 U/L B-Type Natriuretic Peptide 263.0 H <100.0 PG/ML Total Protein 6.0 L 6.4-8.2 GM/DL Albumin 3.4 3.2-4.5 GM/DL Glucometer 193 H 70-110 MG/DL Blood Gas Puncture Site R RADIAL Blood Gas Patient Temperature 98.8 Arterial Blood pH 7.22 *L 7.37-7.43 Arterial Blood Partial Pressure CO2 66 H 35-45 MMHG Arterial Blood Partial Pressure O2 79 79-93 MMHG Arterial Blood HCO3 26 23-27 MMOL/L Arterial Blood Total CO2 27.6 21.0-31.0 MMOL/L Arterial Blood Oxygen Saturation 96 94-100 % Arterial Blood Base Excess -1.2 -2.5-2.5 MMOL/L Maurisio Test YES-POS Blood Gas Ventilator Setting NO Blood Gas Inspired Oxygen 40% BIPAP Physical Exam Physical Exam Vital Signs Vital Signs - First Documented 05/14/19 05/14/19 05/14/19 09:00 11:30 12:00 Temp 97.8 Pulse 78 Resp 9 B/P (MAP) 97/65 (76) Pulse Ox 94 O2 Delivery NIV Bilevel O2 Flow Rate 30.00 FiO2 40 Capillary Refill : Less Than 3 Seconds Height, Weight, BMI Height: 5'10.00" Weight: 301lbs. 0.0oz. [id number]; 43.2 BMI Method:Stated General Appearance: Anxious, Mild Distress, Moderate Distress Eyes: Right Eye Normal Inspection, Right Eye PERRL HEENT: PERRL/EOMI, Pharynx Normal Neck: Normal Inspection, Non Tender, Supple Respiratory: Accessory Muscle Use, Crackles, Decreased Breath Sounds Cardiovascular: Regular Rate, Rhythm, No Edema, No Murmur Gastrointestinal: Normal Bowel Sounds, No Organomegaly, No Pulsatile Mass, Non Tender, Soft Back: Normal Inspection, No CVA Tenderness, No Vertebral Tenderness Extremity: Normal Capillary Refill, Normal Inspection, No Pedal Edema Neurologic/Psychiatric: Other (lethargic) Skin: Normal Color, Warm/Dry Lymphatic: No Adenopathy A/P-Cardiology Admission Diagnosis Acute respiratory failure Acute renal failure Coronary artery disease Hypertension Assessment/Plan status post lumbar spine surgery, recovering, postoperative day number 1. Acute respiratory failure, CO2 retention, obesity hypoventilation syndrome, currently on BiPAP, managed by Dr. Ahn Acute renal failure secondary to obstructive uropathy, has a Alves catheter with clots in the Alves catheter, currently on continuous irrigation. Continue to monitor renal function Metabolic acidosis, electrolyte abnormality secondary to above Coronary artery disease history of CABG 6 done in 2012, history of multiple interventions in the past. Currently no active pain, EKG did not show any acute abnormality Hypertension, monitor blood pressure Hyperlipidemia, monitor lipids Diabetes mellitus, followed and managed by primary care physician Morbid obesity Clinical Quality Measures DVT/VTE Risk/Contraindication: Risk Factor Score Per Nursin RFS Level Per Nursing on Admit: 4+=Very High HANANE FUENTES MD May 14, 2019 15:07
--- NOTE | 2019-05-14 16:04 | NUR ---
clarified dose of Kayexalate with dr parra- dose is 15 grams/60ml
[2019-05-14 16:46] LABS: CALCIUM 7.1 MG/DL (8.5-10.1); CREATININE SERUM 2.77 MG/DL (0.60-1.30); POTASSIUM 6.3 MMOL/L (3.6-5.0)
[2019-05-14 20:19] LABS: ABG BASE EXCESS 1.3 MMOL/L (-2.5-2.5); ABG OXYGEN SATURATION 95 % (94-100); ABG PCO2 69 MMHG (35-45); ABG PO2 76 MMHG (79-93); ABG TCO2 30.1 MMOL/L (21.0-31.0); BASOPHILS % (AUTO) 0 % (0-10); EOSINOPHILS % (AUTO) 0 % (0-10); HEMATOCRIT 31 % (40-54); HEMOGLOBIN 9.6 G/DL (13.3-17.7); LYMPHOCYTES # (AUTO) 1.4 X 10^3 (1.0-4.0); LYMPHOCYTES % (AUTO) 13 % (12-44); MEAN CORPUSCULAR HEMOGLOBIN 30 PG (25-34); MEAN CORPUSCULAR HGB CONC 31 G/DL (32-36); MEAN CORPUSCULAR VOLUME 98 FL (80-99); MEAN PLATELET VOLUME 11.2 FL (7.4-10.4); MONOCYTES # (AUTO) 1.4 X 10^3 (0.0-1.0); MONOCYTES % (AUTO) 13 % (0-12); NEUTROPHILS # (AUTO) 7.8 X 10^3 (1.8-7.8); NEUTROPHILS % (AUTO) 74 % (42-75); PLATELET COUNT 139 10^3/uL (130-400); RED CELL DISTRIBUTION WIDTH 15.8 % (10.0-14.5); WHITE BLOOD COUNT 10.6 10^3/uL (4.3-11.0)
[2019-05-14 20:20] LABS: ALLENS TEST YES-POS; INSPIRED O2 35% BIPAP; PATIENT TEMP 99.5; VENTILATOR NO
[2019-05-14 20:21] LABS: ABG PH 7.23 (7.37-7.43)
--- NOTE | 2019-05-14 20:30 | NUR ---
2029: PT CAN TELL THIS RN HIS NAME AT THIS TIME ONLY. 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 HE DOES NOT KNOW WHAT CITY HIS IS IN, THE YEAR, OR THE PRESIDENT. VICENTE RN REPORTED TO THIS RN THAT PATIENT WAS LETHARGIC BUT A&O. E-ICU NOTIFIED OF AMS AND ABG RESULTS. 2039: NEW ORDERS RECEIVED AT THIS TIME FOR BI-PAP SETTING CHANGES; LUNA R/T NOTIFIED OF NEW ORDERS. NEW ORDERS ALSO RECEIVED AT THIS TIME TO REPEAT ABG AT MIDNIGHT, PANTOPRAZOLE 40 MG IV ONCE/NOW, NPO EXCEPT SIPS OF WATER AND MEDS IF ALERT, GLUCOSE MONITORING Q4HRS AND INSULIN LISPRO PER HIGH-DOSE SCALE NOW AND EVERY FOUR HOURS.
[2019-05-14 20:34] LABS: CALCIUM 7.1 MG/DL (8.5-10.1); CREATININE SERUM 2.55 MG/DL (0.60-1.30); MAGNESIUM 1.5 MG/DL (1.8-2.4); PHOSPHORUS 5.2 MG/DL (2.3-4.7); POTASSIUM 5.4 MMOL/L (3.6-5.0)
[2019-05-14] MEDS ORDERED: PANTOPRAZOLE 40 MG (PROTONIX) TAB PO ONE (22:00)
[2019-05-14] MEDS ORDERED: PANTOPRAZOLE 40 MG (PROTONIX) VIAL IV ONE (22:15)
[2019-05-14] MEDS: inSUlin ASPART (NovoLOG) 1 UNIT/0.01 ML (CHARGE PER UNIT) SC SCH (22:41)
[2019-05-14 23:56] LABS: ABG BASE EXCESS 0.4 MMOL/L (-2.5-2.5); ABG OXYGEN SATURATION 95 % (94-100); ABG PO2 76 MMHG (79-93); ABG TCO2 28.6 MMOL/L (21.0-31.0)
[2019-05-14 23:58] LABS: ALLENS TEST YES-POS; INSPIRED O2 30%; PATIENT TEMP 98.6; VENTILATOR NO
[2019-05-15] VITALS (25 sets, daily range): BP systolic 112–197; BP diastolic 39–65
[2019-05-15 00:06] LABS: ABG PCO2 62 MMHG (35-45); ABG PH 7.26 (7.37-7.43)
[2019-05-15] MEDS: inSUlin ASPART (NovoLOG) 1 UNIT/0.01 ML (CHARGE PER UNIT) SC SCH ×6 (00:37→21:01)
--- NOTE | 2019-05-15 01:42 | NUR ---
PT IS MORE ALERT AT THIS TIME AND COMPLAINING OF BACK PAIN. MULTIPLE ATTEMPTS AT REPOSITIONING MADE WITHOUT SUCCESS. THIS RN CALLED E-ICU. SEE ORDER HISTORY FOR NEW ORDER.
[2019-05-15] MEDS ORDERED: fentaNYL INJECTION 100 MCG/2 ML AMP IVP ONE (02:00)
[2019-05-15] MEDS: RT-ALBUTEROL/IPRATROPIUM 3 ML (DUONEB) VIAL INH SCH ×6 (02:31→21:50)
[2019-05-15 02:35] LABS: BASOPHILS % (AUTO) 0 % (0-10); EOSINOPHILS % (AUTO) 0 % (0-10); HEMATOCRIT 29 % (40-54); HEMOGLOBIN 8.7 G/DL (13.3-17.7); LYMPHOCYTES % (AUTO) 10 % (12-44); MEAN CORPUSCULAR HEMOGLOBIN 30 PG (25-34); MEAN CORPUSCULAR HGB CONC 30 G/DL (32-36); MEAN CORPUSCULAR VOLUME 99 FL (80-99); MEAN PLATELET VOLUME 11.2 FL (7.4-10.4); MONOCYTES # (AUTO) 1.1 X 10^3 (0.0-1.0); MONOCYTES % (AUTO) 11 % (0-12); NEUTROPHILS # (AUTO) 7.7 X 10^3 (1.8-7.8); NEUTROPHILS % (AUTO) 79 % (42-75); PLATELET COUNT 129 10^3/uL (130-400); RED CELL DISTRIBUTION WIDTH 15.9 % (10.0-14.5); WHITE BLOOD COUNT 9.8 10^3/uL (4.3-11.0)
[2019-05-15 02:44] LABS: CALCIUM 6.9 MG/DL (8.5-10.1); CREATININE SERUM 2.44 MG/DL (0.60-1.30); MAGNESIUM 1.4 MG/DL (1.8-2.4); PHOSPHORUS 5.4 MG/DL (2.3-4.7); POTASSIUM 4.8 MMOL/L (3.6-5.0)
[2019-05-15 03:00] LABS: ABG BASE EXCESS 0.9 MMOL/L (-2.5-2.5); ABG OXYGEN SATURATION 97 % (94-100); ABG PCO2 62 MMHG (35-45); ABG PO2 80 MMHG (79-93); ABG TCO2 29.3 MMOL/L (21.0-31.0)
[2019-05-15] MEDS: KCL 20 MEQ TAB (K-DUR) PO SCH (03:00)
[2019-05-15] MEDS: MAGNESIUM 1 GM/100 ML IVPB 100 ML IV SCH (03:00)
[2019-05-15] MEDS: POTASSIUM CL 10MEQ/50ML IVPB 50 ML IV SCH (03:00)
[2019-05-15 03:02] LABS: ABG PH 7.26 (7.37-7.43)
[2019-05-15 03:03] LABS: ALLENS TEST YES-POS; INSPIRED O2 30%; PATIENT TEMP 97.6; VENTILATOR NO
[2019-05-15] MEDS: MAGNESIUM 1 GM/D5W 100 ML IVPB IV SCH ×2 (05:34→07:20)
[2019-05-15 06:38] LABS: BILIRUBIN,TOTAL 0.3 MG/DL (0.1-1.0); CALCIUM 6.9 MG/DL (8.5-10.1); CREATININE SERUM 2.21 MG/DL (0.60-1.30); POTASSIUM 4.7 MMOL/L (3.6-5.0); TOTAL PROTEIN 5.4 GM/DL (6.4-8.2)
[2019-05-15] MEDS ORDERED: LACTATED RINGERS 1,000 ML IV SCH (07:00)
[2019-05-15] MEDS: fentaNYL INJECTION 100 MCG/2 ML AMP IVP PRN (07:21)
[2019-05-15 08:20] LABS: ABG BASE EXCESS 1.9 MMOL/L (-2.5-2.5); ABG OXYGEN SATURATION 99 % (94-100); ABG PCO2 62 MMHG (35-45); ABG PO2 99 MMHG (79-93); ABG TCO2 29.9 MMOL/L (21.0-31.0)
[2019-05-15 08:22] LABS: ABG PH 7.28 (7.37-7.43); ALLENS TEST POSITIVE; INSPIRED O2 30% BIPAP; PATIENT TEMP 98.6; VENTILATOR NO
[2019-05-15] MEDS: LACTATED RINGERS 1,000 ML IV SCH ×2 (08:31→12:16)
[2019-05-15 08:55] LABS: BILIRUBIN,URINE NEGATIVE (NEGATIVE); CLARITY,URINE VERY CLOUDY; GLUCOSE, URINE (UA) NEGATIVE (NEGATIVE); KETONES,URINE NEGATIVE (NEGATIVE); LEUKOCYTE ESTERASE ,URINE 3+ (NEGATIVE); NITRITE,URINE NEGATIVE (NEGATIVE); PH,URINE 5 (5-9); PROTEIN,URINE 2+ (NEGATIVE); UROBILINOGEN,URINE NORMAL (NORMAL)
[2019-05-15] MEDS: SOD POLYSTERENE 15 GM/60 ML (KAYEXALATE) UNIT DOSE PO SCH ×3 (09:00→21:01)
--- NOTE | 2019-05-15 09:09 | Diagnostic Imaging Report ---
INDICATION: Dyspnea, shortness of breath. Compared 05/14/2018 FINDINGS: Sternal wires midline. No focal consolidation. The heart size upper limits. No effusion or pneumothorax. Right PICC line is in the lower SVC. IMPRESSION: PICC line in good position, tip at the lower SVC. Dictated by: Dictated on workstation # [id number]
[2019-05-15 09:16] LABS: AMORPHOUS SEDIMENT,UR MOD AMOR URATES /LPF; BACTERIA,URINE MODERATE /HPF; COLOR,URINE YELLOW; RBC,URINE TNTC /HPF; WBC,URINE 25-50 /HPF
[2019-05-15] MEDS ORDERED: PROPOFOL DRIP (ICU) 100 ML IV ONE (10:03)
[2019-05-15] MEDS ORDERED: proPOfol 200 MG/20 ML (DIPRIVAN) VIAL IV ONE (10:03)
--- NOTE | 2019-05-15 10:10 | NUR ---
Ashutosh ARECHIGA at bedside at this time. Pt given 3MG Versed by HAWK, 50mg of Roni and 200 Propofol. Pt intubated at 1015. Arterial line placed at 1020. Pt currently comfortable, VSS. Will continue to monitor.
--- NOTE | 2019-05-15 10:40 | Progress Note-Urology ---
Progress Note-Urology Progress Notes/Assess & Plan Progress/Assessment & Plan URINE STAYING CLEAR AND YELLOW. WE WILL SEE PRN Final Diagnosis GROSS HEMATURIA (RESOLVED) NOÉ BURNS MD May 15, 2019 10:40
--- NOTE | 2019-05-15 10:59 | Diagnostic Imaging Report ---
INDICATION: Intubation FINDINGS: ET tube tip projects over the midthoracic trachea. OG catheter is difficult to define, its distal component reaches at least the EG junction, below that level it is not clearly seen. The sternal wires appeared unremarkable. There is a right PICC at the SVC. There is cardiomegaly and vascular congestion worsened. There is some perihilar opacity increased, edema versus pneumonia. IMPRESSION: Some increased central congestion edema versus pneumonia. ET tube in good alignment. Cannot define with confidence the distal extent of the OG catheter. PICC line in good position. Dictated by: Dictated on workstation # [id number]
[2019-05-15] MEDS ORDERED: HALOPERIDOL 5 MG/ML (HALDOL) AMP IV PRN (11:00)
[2019-05-15] MEDS ORDERED: PROPOFOL DRIP (ICU) 100 ML IV SCH (11:00)
[2019-05-15] MEDS ORDERED: ROCURONIUM 10 MG/ML 5 ML SYRINGE IV ONE (11:05)
[2019-05-15] MEDS ORDERED: MIDAZOLAM 5 MG/5 ML (VERSED) VIAL IJ ONE (11:05)
--- NOTE | 2019-05-15 11:20 | Progress Note-Hospitalist ---
Subjective HPI/CC On Admission Date Seen by Provider: May 15, 2019 Time Seen by Provider: 10:45 Chief complaint: CO2 narcosis History of present illness: This is a 68-year-old white male clinic patient of Dr. Moreno and Dr. Hernández cardiology who presents after an uncomplicated lumbar spine surgery by Dr. Carrasco yesterday who is becoming more and more somnolent later this morning after an uneventful night then appeared to have CO2 retention causing confusion. ABG was checked revealing pH is 7.1 and CO2 of 56 in addition he had clot retention and the Alves catheter causing decrease in urinary output with elevated creatinine. He was found to be criteria to be transferred to via [facility] ICU and Dr. Ahn and Dr. Duke graciously accepted consultation request along with urology. Potassium is retained due to postobstructive outflow with clot retention but now he is not requiring bladder irrigation to resolve the clot retention and hopefully will help creatinine decline and facilitate hyperkalemia which is also being treated with Kayexalate and IV insulin and albuterol breathing treatments. Subjective/Events-last exam Patient required intubation Failed BiPAP and line hyperkalemia improved Renal failure improved Family reports [place] since he was there after respiratory failure after last surgery Conferred with Dr. Carrasco patient did not report this intubation long-term after last surgery to him prior to scheduling surgery. Focused Exam Lactate Level 05/15/19 06:00: Lactic Acid Level 2.37*H 05/15/19 11:21: Lactic Acid Level 2.35*H Lactic Acid Level Laboratory Tests Test 05/15/19 11:21 Lactic Acid Level 2.35 MMOL/L (0.50-2.00) *H Objective Exam Vital Signs Vital Signs Date Time Temp Pulse Resp B/P (MAP) Pulse Ox O2 Delivery O2 Flow Rate FiO2 05/15/19 12:13 98 05/15/19 12:00 13 172/43 (86) 95 Mechanical Ventilator 45.00 05/15/19 11:15 45 05/15/19 04:00 97.3 Capillary Refill : Less Than 3 Seconds General Appearance: No Apparent Distress, WD/WN, Obese, Other (Intubated) Neck: Normal Inspection Respiratory: Accessory Muscle Use, Decreased Breath Sounds Cardiovascular: Regular Rate, Rhythm, No Edema, No Murmur Gastrointestinal: Normal Bowel Sounds, No Organomegaly, No Pulsatile Mass, Soft Extremity: Pedal Edema Neurologic/Psychiatric: Other (Intubated) Skin: Normal Color, Warm/Dry Lymphatic: No Adenopathy Results/Procedures Lab Laboratory Tests 05/14/19 16:24 05/14/19 20:00 05/15/19 02:15 05/15/19 06:00 Patient resulted labs reviewed. Assessment/Plan Assessment and Plan Assess & Plan/Chief Complaint Assessment: Acute respiratory failure- just now intubated CO2 narcosis Obstructive sleep apnea with CPAP CAD Elevated BNP Acute renal failure Hyperkalemia Hypertension Diabetes mellitus Plan: Intubation Follow ABG Appreciate Dr. Duke and Dr. Ahn consultations along with urology Maintain Alves catheter Treated hyperkalemia Monitor closely Gentle IV fluids [place] Diagnosis/Problems Diagnosis/Problems (1) CO2 narcosis Status: Acute (2) SIDNEY on CPAP Status: Chronic (3) CAD (coronary artery disease) Status: Chronic Qualifiers: Coronary Disease-Associated Artery/Lesion type: [place] artery [place] vs. 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 lobsterman insulin use: without penitentiary use Diabetes mellitus complication status: with other specified complication Qualified Codes: E11.69 - Type 2 diabetes mellitus with other specified complication (5) Obesity Status: Chronic Qualifiers: Obesity type: due to excess calories Obesity classification: adult class 3 (BMI >= 40) Serious obesity comorbidity presence: with serious comorbidity Body mass index: BMI 40.0-44.9 Qualified Codes: E66.01 - Morbid (severe) obesity due to excess calories; Z68.41 - Body mass index (BMI) 40.0-44.9, adult (6) Status post lumbar spine surgery for decompression of spinal cord Status: Acute (7) Renal failure Status: Acute Qualifiers: Acute renal failure type: unspecified Chronic kidney disease stage: stage 4 (severe) (8) Hyperkalemia Status: Acute (9) Clot retention of urine Status: Acute (10) Elevated brain natriuretic peptide (BNP) level Status: Acute Clinical Quality Measures DVT/VTE Risk/Contraindication: Risk Factor Score Per Nursin RFS Level Per Nursing on Admit: 4+=Very High JASPER LONG DO May 15, 2019 11:20
[2019-05-15] MEDS: LIDOCAINE 4% (SALONPAS) PATCH TOP SCH (11:26)
[2019-05-15] MEDS: fentaNYL INJECTION 1,250 MCG in NORMAL SALINE 250 ML INJ PRN (12:12)
[2019-05-15] MEDS: PROPOFOL DRIP (ICU) 100 ML IV SCH ×3 (12:13→23:04)
--- NOTE | 2019-05-15 12:24 | Progress Note-Cardiology ---
Cardiology SOAP Progress Note Subjective: Intubated, sedated, on mech vent, not able to provide any history Objective: I&O/Vital Signs 05/15/19 05/15/19 05/15/19 05/15/19 01:00 01:00 02:00 02:30 Pulse 97 95 90 101 Resp 29 24 25 B/P (MAP) 135/57 (83) 121/42 (68) Pulse Ox 94 98 95 O2 Delivery NIV Bilevel NIV Bilevel O2 Flow Rate 30.00 30.00 30.00 05/15/19 05/15/19 05/15/19 05/15/19 03:00 04:00 04:00 04:00 Temp 97.3 Pulse 101 96 Resp 22 16 B/P (MAP) 148/48 (81) 141/65 (90) Pulse Ox 93 96 93 O2 Delivery NIV Bilevel NIV Bilevel NIV Bilevel O2 Flow Rate 30.00 30.00 FiO2 30 05/15/19 05/15/19 05/15/19 05/15/19 05:00 05:38 06:00 06:01 Pulse 99 97 93 Resp 24 19 24 B/P (MAP) 142/58 (86) 147/54 (85) Pulse Ox 98 92 95 O2 Delivery NIV Bilevel NIV Bilevel NIV Bilevel O2 Flow Rate 30.00 25.00 25.00 25.00 05/15/19 05/15/19 05/15/19 05/15/19 07:00 07:00 08:00 08:00 Pulse 93 96 96 Resp 20 B/P (MAP) 112/39 (63) 127/50 (75) Pulse Ox 96 95 O2 Delivery NIV Bilevel NIV Bilevel NIV Bilevel O2 Flow Rate 25.00 25.00 FiO2 30 05/15/19 05/15/19 05/15/19 05/15/19 09:00 09:07 10:00 11:00 Pulse 100 93 96 98 Resp 20 30 24 29 B/P (MAP) 193/50 (97) Pulse Ox 100 99 98 98 O2 Delivery NIV Bilevel NIV Bilevel Mechanical Ventilator O2 Flow Rate 25.00 30.00 25.00 45.00 05/15/19 05/15/19 05/15/19 11:15 12:00 12:13 Pulse 98 98 98 Resp 19 13 B/P (MAP) 172/43 (86) Pulse Ox 97 95 O2 Delivery Mechanical Ventilator O2 Flow Rate 45.00 FiO2 45 05/15/19 00:00 Intake Total 1000 ml Output Total 980 ml Balance 20 ml Weight (Pounds): 300 Weight (Ounces): 0.0 Weight (Calculated Kilograms): 136.408131 Constitutional: other (intubated, sedated, unable to cooperate with exam) Respiratory: No accessory muscle use; other (fair to good bilat air entry, diminished at the basees) Cardiovascular: regular rate-rhythm, S1 and S2, systolic murmur (soft MARA at card base) Gastrointestional: soft; No guarding, No rebound; audible bowel sounds Extremities: No swelling (mild bilat edema), No clubbing, No cyanosis Neurologic/Psychiatric: other (unable to cooperate with a neuro exam) Skin: No rash on exposed areas, No ulcerations on exposed areas Results/Procedures: Labs Laboratory Tests 05/14/19 13:16: Blood Gas Puncture Site R RADIAL, Blood Gas Patient Temperature 98.8, Arterial Blood pH 7.22*L, Arterial Blood Partial Pressure CO2 66H, Arterial Blood Partial Pressure O2 79, Arterial Blood HCO3 26, Arterial Blood Total CO2 27.6, Arterial Blood Oxygen Saturation 96, Arterial Blood Base Excess -1.2, Maurisio Test YES-POS, Blood Gas Ventilator Setting NO, Blood Gas Inspired Oxygen 40% BIPAP 05/14/19 16:24: Sodium Level 138, Potassium Level 6.3H, Chloride Level 102, Carbon Dioxide Level 26, Anion Gap 10, Blood Urea Nitrogen 39H, Creatinine 2.77H, Estimat Glomerular Filtration Rate 23, BUN/Creatinine Ratio 14, Glucose Level 258H, Calcium Level 7.1L 05/14/19 18:15: Glucometer 237H 05/14/19 20:00: Blood Gas Puncture Site L RAD, Blood Gas Patient Temperature 99.5, Arterial Blood pH 7.23*L, Arterial Blood Partial Pressure CO2 69H, Arterial Blood Partial Pressure O2 76L, Arterial Blood HCO3 28H, Arterial Blood Total CO2 30.1, Arterial Blood Oxygen Saturation 95, Arterial Blood Base Excess 1.3, Maurisio Test YES-POS, Blood Gas Ventilator Setting NO, Blood Gas Inspired Oxygen 35% BIPAP, Sodium Level 142, Potassium Level 5.4H, Chloride Level 105, Carbon Dioxide Level 25, Anion Gap 12, Blood Urea Nitrogen 40H, Creatinine 2.55H, Estimat Glomerular Filtration Rate 25, BUN/Creatinine Ratio 16, Glucose Level 220H, Calcium Level 7.1L, White Blood Count 10.6, Red Blood Count 3.19L, Hemoglobin 9.6L, Hematocrit 31L, Mean Corpuscular Volume 98, Mean Corpuscular Hemoglobin 30, Mean Corpuscular Hemoglobin Concent 31L, Red Cell Distribution Width 15.8H, Platelet Count 139, Mean Platelet Volume 11.2H, Neutrophils (%) (Auto) 74, Lymphocytes (%) (Auto) 13, Monocytes (%) (Auto) 13H, Eosinophils (%) (Auto) 0, Basophils (%) (Auto) 0, Neutrophils # (Auto) 7.8, Lymphocytes # (Auto) 1.4, Monocytes # (Auto) 1.4H, Eosinophils # (Auto) 0.0, Basophils # (Auto) 0.0, Phosphorus Level 5.2H, Magnesium Level 1.5L 05/14/19 21:25: Glucometer 229H 05/14/19 23:45: Blood Gas Puncture Site LEFT RADIAL, Blood Gas Patient Temperature 98.6, Arterial Blood pH 7.26*L, Arterial Blood Partial Pressure CO2 62H, Arterial Blood Partial Pressure O2 76L, Arterial Blood HCO3 27, Arterial Blood Total CO2 28.6, Arterial Blood Oxygen Saturation 95, Arterial Blood Base Excess 0.4, Maurisio Test YES-POS, Blood Gas Ventilator Setting NO, Blood Gas Inspired Oxygen 30% 05/15/19 02:15: White Blood Count 9.8, Red Blood Count 2.90L, Hemoglobin 8.7L, Hematocrit 29L, Mean Corpuscular Volume 99, Mean Corpuscular Hemoglobin 30, Mean Corpuscular Hemoglobin Concent 30L, Red Cell Distribution Width 15.9H, Platelet Count 129L, Mean Platelet Volume 11.2H, Neutrophils (%) (Auto) 79H, Lymphocytes (%) (Auto) 10L, Monocytes (%) (Auto) 11, Eosinophils (%) (Auto) 0, Basophils (%) (Auto) 0, Neutrophils # (Auto) 7.7, Lymphocytes # (Auto) 1.0, Monocytes # (Auto) 1.1H, Eosinophils # (Auto) 0.0, Basophils # (Auto) 0.0, Sodium Level 141, Potassium Level 4.8, Chloride Level 105, Carbon Dioxide Level 24, Anion Gap 12, Blood Urea Nitrogen 40H, Creatinine 2.44H, Estimat Glomerular Filtration Rate 27, BUN/Creatinine Ratio 16, Glucose Level 250H, Calcium Level 6.9L, Phosphorus Level 5.4H, Magnesium Level 1.4L 05/15/19 02:58: Blood Gas Puncture Site LEFT RADIAL, Blood Gas Patient Temperature 97.6, Arterial Blood pH 7.26*L, Arterial Blood Partial Pressure CO2 62H, Arterial Blood Partial Pressure O2 80, Arterial Blood HCO3 27, Arterial Blood Total CO2 29.3, Arterial Blood Oxygen Saturation 97, Arterial Blood Base Excess 0.9, Maurisio Test YES-POS, Blood Gas Ventilator Setting NO, Blood Gas Inspired Oxygen 30% 05/15/19 05:33: Glucometer 276H 05/15/19 06:00: Sodium Level 138, Potassium Level 4.7, Chloride Level 103, Carbon Dioxide Level 25, Anion Gap 10, Blood Urea Nitrogen 38H, Creatinine 2.21H, Estimat Glomerular Filtration Rate 30, BUN/Creatinine Ratio 17, Glucose Level 266H, Lactic Acid Level 2.37*H, Calcium Level 6.9L, Corrected Calcium 7.7L, Total Bilirubin 0.3, Aspartate Amino Transf (AST/SGOT) 312H, Alanine Aminotransferase (ALT/SGPT) 101H , Alkaline Phosphatase 51, Ammonia 30, B-Type Natriuretic Peptide 68.7, Total Protein 5.4L, Albumin 3.0L, Triglycerides Level 253H 05/15/19 08:12: Glucometer 270H, Blood Gas Puncture Site LEFT RADIAL, Blood Gas Patient Temperature 98.6, Arterial Blood pH 7.28*L, Arterial Blood Partial Pressure CO2 62H, Arterial Blood Partial Pressure O2 99H, Arterial Blood HCO3 28H, Arterial Blood Total CO2 29.9, Arterial Blood Oxygen Saturation 99, Arterial Blood Base Excess 1.9, Maurisio Test POSITIVE, Blood Gas Ventilator Setting NO, Blood Gas Inspired Oxygen 30% BIPAP 05/15/19 08:45: Urine Color YELLOW, Urine Clarity VERY CLOUDYH, Urine pH 5, Urine Specific [place] 1.020, Urine Protein 2+H, Urine Glucose (UA) NEGATIVE, Urine Ketones NEGATIVE, Urine Nitrite NEGATIVE, Urine Bilirubin NEGATIVE, Urine Urobilinogen NORMAL, Urine Leukocyte Esterase 3+H, Urine RBC (Auto) 5+H, Urine RBC TNTCH, Urine WBC 25-50H, Urine Squamous Epithelial Cells NONE, Urine Crystals NONE, Urine Amorphous Sediment MOD SOLIS URATESH, Urine Bacteria MODERATEH, Urine Casts PRESENT, Urine Coarse Granular Casts 5-10H, Urine Mucus NEGATIVE, Urine Culture Indicated YES 05/15/19 11:21: Lactic Acid Level 2.35*H 05/15/19 11:34: Glucometer 207H Laboratory Tests 05/14/19 10:27 05/14/19 16:24 05/14/19 20:00 05/15/19 02:15 05/15/19 06:00 A/P: Assessment: Status post lumbar spine surgery on 05/13/19 with multiple post-operative issues that are noted below Type 2 acute resp failure. Currently, intubated and on [facility] vent Acute renal failure, probably secondary to obstructive uropathy Obesity with obesity hypovent syndrome Coronary artery disease history of CABG 6 done in 2012, history of multiple interventions in the past Hypertension, by history Hyperlipidemia, by history Diabetes mellitus, Type 2 Plan: * I reviewed his chart and hosp course * Complex management due to multiple comorbidities * Beta-woody, if bp tolerates * Oral ASA when extubated and if ok with the Surg Svce and with Dr Law * Monitor labs JONATHAN EPPERSON MD FACP FAC CCDS May 15, 2019 12:24
[2019-05-15 12:54] LABS: ABG BASE EXCESS 2.1 MMOL/L (-2.5-2.5); ABG OXYGEN SATURATION 98 % (94-100); ABG PCO2 62 MMHG (35-45); ABG PO2 89 MMHG (79-93)
[2019-05-15 12:55] LABS: ABG PH 7.28 (7.37-7.43); ALLENS TEST POSITIVE; INSPIRED O2 45%; PATIENT TEMP 98.8; VENTILATOR YES
--- NOTE | 2019-05-15 13:56 | Anesthesia-Procedure Note ---
Procedures/Interventions Procedure Start/Stop/Diagnosis Date of Procedure: May 15, 2019 Start Time: 10:10 Referring Physician: Anabelle Stop Time: 10:30 Intubation Reason Intubation/Diagnosis: Resp Failure RSI: Yes (modified) 100% pre-Ox, [id number]: Yes Intubation Method: orotracheal Videoscope used: Yes (Hernandez) Grade View: 1 Medications: Propofol (200), Rocuronium (50), Versed (3) Mask Ventilation: positive Positive End Tide CO2: Yes Breath Sounds after Intubation: bilateral-equal ETT Securred @ (cm): 23 Intubated with ease: Yes Intubation Complications: no complications Post Intubation Xray-done: Yes Post Procedure Patient undestood the need for mechanical ventilation and endotracheal tube placement. On BiPAP. Sat 97%. Patient positioned. Medications given. Intubated without difficulty. Care to RT and RN. Care turned over to: RT and RN Arterial Line Arterial Line Catheter: 20G Type: Radial Location: Right Procedure: prepped, draped in sterile fashion, good wave-form was obtained, patient tolerated procedure well, no immediate complications, post procedure area cleaned, post procedure dressing applied ROSALIE OLIVAREZ CRNA May 15, 2019 13:56
[2019-05-15 14:53] LABS: ABG BASE EXCESS 2.5 MMOL/L (-2.5-2.5); ABG OXYGEN SATURATION 95 % (94-100); ABG PCO2 59 MMHG (35-45); ABG PO2 69 MMHG (79-93); ABG TCO2 30.3 MMOL/L (21.0-31.0)
[2019-05-15 14:59] LABS: ALLENS TEST ART LINE; INSPIRED O2 45; PATIENT TEMP 97.7; VENTILATOR YES
[2019-05-15] MEDS: meTOprolol 5 MG/5 ML (LOPRESSOR) VIAL IV SCH ×3 (17:09→23:03)
[2019-05-16] VITALS (38 sets, daily range): BP systolic 111–224; BP diastolic 33–54
[2019-05-16] MEDS: inSUlin ASPART (NovoLOG) 1 UNIT/0.01 ML (CHARGE PER UNIT) SC SCH ×6 (00:05→20:45)
[2019-05-16] MEDS: LACTATED RINGERS 1,000 ML IV SCH ×4 (01:33→17:48)
[2019-05-16] MEDS: RT-ALBUTEROL/IPRATROPIUM 3 ML (DUONEB) VIAL INH SCH ×6 (02:05→22:37)
[2019-05-16 03:17] LABS: ABG BASE EXCESS 4.2 MMOL/L (-2.5-2.5); ABG OXYGEN SATURATION 94 % (94-100); ABG PCO2 53 MMHG (35-45); ABG PH 7.36 (7.37-7.43); ABG PO2 61 MMHG (79-93); ABG TCO2 31.1 MMOL/L (21.0-31.0); BASOPHILS % (AUTO) 0 % (0-10); EOSINOPHILS # (AUTO) 0.1 10^3/uL (0.0-0.3); EOSINOPHILS % (AUTO) 1 % (0-10); HEMATOCRIT 24 % (40-54); HEMOGLOBIN 7.5 G/DL (13.3-17.7); LYMPHOCYTES # (AUTO) 1.1 X 10^3 (1.0-4.0); LYMPHOCYTES % (AUTO) 16 % (12-44); MEAN CORPUSCULAR HEMOGLOBIN 30 PG (25-34); MEAN CORPUSCULAR HGB CONC 31 G/DL (32-36); MEAN CORPUSCULAR VOLUME 98 FL (80-99); MEAN PLATELET VOLUME 10.5 FL (7.4-10.4); MONOCYTES # (AUTO) 0.7 X 10^3 (0.0-1.0); MONOCYTES % (AUTO) 10 % (0-12); NEUTROPHILS # (AUTO) 4.8 X 10^3 (1.8-7.8); NEUTROPHILS % (AUTO) 72 % (42-75); PLATELET COUNT 113 10^3/uL (130-400); RED CELL DISTRIBUTION WIDTH 16.1 % (10.0-14.5); WHITE BLOOD COUNT 6.7 10^3/uL (4.3-11.0)
[2019-05-16 03:21] LABS: ALLENS TEST ART LINE; INSPIRED O2 35%; PATIENT TEMP 97.4; VENTILATOR YES
[2019-05-16 03:41] LABS: CALCIUM 7.3 MG/DL (8.5-10.1); CREATININE SERUM 1.59 MG/DL (0.60-1.30); MAGNESIUM 1.9 MG/DL (1.8-2.4); PHOSPHORUS 2.9 MG/DL (2.3-4.7)
[2019-05-16] MEDS: meTOprolol 5 MG/5 ML (LOPRESSOR) VIAL IV SCH (04:05)
[2019-05-16] MEDS: MAGNESIUM 1 GM/100 ML IVPB 100 ML IV SCH (04:12)
[2019-05-16] MEDS: POTASSIUM CL 10MEQ/50ML IVPB 50 ML IV SCH (04:12)
[2019-05-16] MEDS: KCL 20 MEQ TAB (K-DUR) PO SCH (04:12)
--- NOTE | 2019-05-16 05:53 | Pulmonary Progress Note ---
Subjective Time Seen by a Provider: 05:59 Subjective/Events-last exam Intubated and sedated. Family at bedside. Sepsis Event Evaluation Height, Weight, BMI Height: 6'70.00" Weight: 300lbs. 0.0oz. 136.015179rb; 10.5 BMI Method:Stated Focused Exam Lactate Level 05/15/19 06:00: Lactic Acid Level 2.37*H 05/15/19 11:21: Lactic Acid Level 2.35*H Exam Exam Vital Signs Date Time Temp Pulse Resp B/P (MAP) Pulse Ox O2 Delivery O2 Flow Rate FiO2 05/16/19 05:00 74 19 130/39 (69) 100 Mechanical Ventilator 35.00 05/16/19 04:00 97.4 35.00 05/16/19 04:00 Mechanical Ventilator 40 05/16/19 04:00 75 20 138/43 (74) 90 Mechanical Ventilator 35.00 05/16/19 03:00 75 19 139/44 (75) 91 Mechanical Ventilator 32.00 05/16/19 02:05 76 20 92 35 05/16/19 02:00 73 19 167/50 (89) 99 Mechanical Ventilator 32.00 05/16/19 01:00 74 19 145/44 (77) 93 Mechanical Ventilator 32.00 05/16/19 01:00 75 05/16/19 00:35 73 20 96 32 05/16/19 00:29 Mechanical Ventilator 32.00 05/16/19 00:00 Mechanical Ventilator 40 05/16/19 00:00 73 19 141/43 (75) 96 Mechanical Ventilator 35.00 05/15/19 23:04 76 179/49 05/15/19 23:00 77 21 197/52 (100) 94 Mechanical Ventilator 35.00 05/15/19 22:00 77 20 143/42 (75) 93 Mechanical Ventilator 35.00 05/15/19 21:50 75 20 97 30 05/15/19 21:00 80 19 138/43 (74) 95 Mechanical Ventilator 35.00 05/15/19 20:20 81 20 94 35 05/15/19 20:13 97.4 05/15/19 20:00 Mechanical Ventilator 40 05/15/19 20:00 84 20 135/44 (74) 93 Mechanical Ventilator 35.00 05/15/19 19:00 81 20 123/42 (69) 94 Mechanical Ventilator 35.00 05/15/19 19:00 81 05/15/19 18:45 89 20 96 40 05/15/19 18:00 83 20 117/42 (67) 94 Mechanical Ventilator 45.00 05/15/19 17:00 89 20 127/43 (71) 96 Mechanical Ventilator 45.00 05/15/19 16:00 Mechanical Ventilator 45 05/15/19 16:00 89 20 138/44 (75) 96 Mechanical Ventilator 45.00 05/15/19 15:58 89 05/15/19 15:42 98.7 05/15/19 15:00 90 20 128/41 (70) 96 Mechanical Ventilator 45.00 05/15/19 14:43 90 20 93 45 05/15/19 14:00 89 21 168/46 (86) 92 Mechanical Ventilator 45.00 05/15/19 13:00 90 17 166/43 (84) 96 Mechanical Ventilator 45.00 05/15/19 12:40 99 05/15/19 12:13 98 05/15/19 12:00 Mechanical Ventilator 45 05/15/19 12:00 98 13 172/43 (86) 95 Mechanical Ventilator 45.00 05/15/19 11:34 97.9 05/15/19 11:15 98 19 97 45 05/15/19 11:00 98 29 193/50 (97) 98 Mechanical Ventilator 45.00 05/15/19 10:00 96 24 98 NIV Bilevel 25.00 05/15/19 09:07 93 30 99 30.00 05/15/19 09:00 100 20 100 NIV Bilevel 25.00 05/15/19 08:00 96 20 127/50 (75) 95 NIV Bilevel 25.00 05/15/19 08:00 NIV Bilevel 30 05/15/19 07:00 96 112/39 (63) 96 NIV Bilevel 25.00 05/15/19 07:00 93 05/15/19 06:01 93 24 95 25.00 05/15/19 06:00 97 19 147/54 (85) 92 NIV Bilevel 25.00 I & O 05/16/19 06:59 Intake Total 1330 ml Output Total 2050 ml Balance -720 ml Height & Weight Height: 6'70.00" Weight: 300lbs. 0.0oz. 136.674831hp; 10.5 BMI Method:Stated General Appearance: No Apparent Distress, WD/WN, Obese, Other (Intubated) Neck: Normal Inspection Respiratory: Accessory Muscle Use, Decreased Breath Sounds Cardiovascular: Regular Rate, Rhythm, No Edema, No Murmur Capillary Refill: Less Than 3 Seconds Gastrointestinal: normal bowel sounds, non tender, soft Extremity: Pedal Edema Neurologic/Psychiatric: Other (Intubated) Skin: Normal Color, Warm/Dry Lymphatic: No Adenopathy Results Lab Laboratory Tests 05/14/19 10:27 05/14/19 16:24 05/14/19 20:00 05/15/19 02:15 05/15/19 06:00 05/16/19 03:01 Assessment/Plan Assessment/Plan Acute on chronic respiratory failure with C02 narcosis -SVNS Q 4 -continue vent - pt is not ready for weaning yet -repeat LA, and BNP Hyperkalemia -bicarb, kayexalate, and insulin -recheck Anemia -transfuse 1 unit PRBC and continue to monitor Metabolic lactic acidosis -recheck LA Leukcoytosis - reactive and improving -Continue to monitor Acute renal failure - improving -IVF and continue to monitor HTN - Dm II SIDNEY/OHS CAD Acute renal failure ANIYA DUDLEY DO May 16, 2019 05:53
[2019-05-16] MEDS: LIDOCAINE 4% (SALONPAS) PATCH TOP SCH (08:06)
[2019-05-16] MEDS: PANTOPRAZOLE 40 MG (PROTONIX) VIAL IV SCH (08:35)
[2019-05-16] MEDS: meTOprolol TARTRATE 25 MG (LOPRESSOR) TABLET PO SCH ×2 (08:35→19:48)
[2019-05-16] MEDS ORDERED: NS (IVPB) 250 ML ONE (08:51)
--- NOTE | 2019-05-16 09:00 | NUR ---
75 ml of Fentanyl wasted with Carmita Ivey RN.
[2019-05-16] MEDS: fentaNYL INJECTION 1,250 MCG in NORMAL SALINE 250 ML INJ PRN (09:26)
[2019-05-16] MEDS: PROPOFOL DRIP (ICU) 100 ML IV SCH ×6 (09:31→23:19)
--- NOTE | 2019-05-16 09:32 | Diagnostic Imaging Report ---
INDICATION: OG tube placement Frontal chest obtained at 9:02 a.m. and compared to same day at 3:27 a.m. ET tube tip overlies mid trachea. Right-sided PICC line is unchanged with tip overlying the low SVC. There is an OG tube present although tip is poorly visualized due to technique. Consider KUB for further evaluation. There is cardiomegaly with some left basilar infiltrate. There is poor inspiration. IMPRESSION: Cardiomegaly with some left basilar infiltrate and poor inspiration. ET tube and PICC line are present as above. OG tube is seen but its tip is not well-visualized, due to technique. Suggest abdominal film. Dictated by: Dictated on workstation # [id number]
--- NOTE | 2019-05-16 10:00 | Diagnostic Imaging Report ---
Indication: Dyspnea, shortness of breath. Compared: 05/15/2018 Findings: Sternal wires midline, ET tube above the andi, OG catheter in the stomach, right PICC at the lower SVC. There is decreased cardiomegaly reduction in vascular congestion and resolving edema. Impression: Improvements in failure pattern, no pleural fluid or adverse change. Dictated by: Dictated on workstation # [id number]
--- NOTE | 2019-05-16 13:14 | Progress Note-Cardiology ---
Cardiology SOAP Progress Note Subjective: Intubated, on mech vent, unable to communicate Objective: I&O/Vital Signs 05/16/19 05/16/19 05/16/19 05/16/19 02:00 02:05 03:00 04:00 Pulse 73 76 75 75 Resp 19 20 19 20 B/P (MAP) 167/50 (89) 139/44 (75) 138/43 (74) Pulse Ox 99 92 91 90 O2 Delivery Mechanical Ventilator Mechanical Ventilator Mechanical Ventilator O2 Flow Rate 32.00 32.00 35.00 FiO2 35 05/16/19 05/16/19 05/16/19 05/16/19 04:00 04:00 05:00 06:00 Temp 97.4 Pulse 74 74 Resp 19 18 B/P (MAP) 130/39 (69) 118/38 (64) Pulse Ox 100 100 O2 Delivery Mechanical Ventilator Mechanical Ventilator Mechanical Ventilator O2 Flow Rate 35.00 35.00 35.00 FiO2 40 05/16/19 05/16/19 05/16/19 05/16/19 06:29 06:36 07:00 07:00 Pulse 75 75 75 Resp 18 17 B/P (MAP) 128/36 (66) Pulse Ox 96 96 O2 Delivery Mechanical Ventilator Mechanical Ventilator O2 Flow Rate 30.00 30.00 FiO2 30 05/16/19 05/16/19 05/16/19 05/16/19 07:22 07:27 08:00 09:00 Temp 97.1 Pulse 77 77 74 Resp 18 19 19 B/P (MAP) 142/40 (74) 159/43 (81) 144/40 (74) Pulse Ox 96 91 97 O2 Delivery Mechanical Ventilator Mechanical Ventilator Mechanical Ventilator Mechanical Ventilator O2 Flow Rate 30.00 30.00 30.00 FiO2 30 05/16/19 05/16/19 05/16/19 05/16/19 09:16 09:31 09:31 09:32 Temp 97.1 97.4 97.4 Pulse 73 72 70 73 Resp 18 18 18 B/P (MAP) 145/40 134/44 158/44 Pulse Ox 100 100 100 O2 Delivery Mechanical Ventilator Mechanical Ventilator Mechanical Ventilator FiO2 40 40 40 05/16/19 05/16/19 05/16/19 05/16/19 10:00 10:10 11:00 11:36 Temp 97.8 Pulse 71 72 71 70 Resp 18 18 18 18 B/P (MAP) 143/44 (77) 140/41 (74) 147/44 Pulse Ox 100 100 99 99 O2 Delivery Mechanical Ventilator Mechanical Ventilator Mechanical Ventilator O2 Flow Rate 30.00 30.00 FiO2 30 30 05/16/19 05/16/19 05/16/19 12:00 12:27 12:50 Pulse 66 73 Resp 15 B/P (MAP) 146/48 (80) Pulse Ox 98 O2 Delivery Mechanical Ventilator Mechanical Ventilator O2 Flow Rate 30.00 FiO2 30 05/16/19 00:00 Intake Total 1230 ml Output Total 1275 ml Balance -45 ml Weight (Pounds): 311 Weight (Ounces): 0.0 Weight (Calculated Kilograms): 141.808119 Constitutional: other (intubated, sedated, unable to cooperate with exam) Respiratory: No accessory muscle use; other (fair to good bilat air entry, diminished at the basees) Cardiovascular: regular rate-rhythm, S1 and S2, systolic murmur (soft MARA at card base) Gastrointestional: soft; No guarding, No rebound; audible bowel sounds Extremities: No swelling (mild bilat edema), No clubbing, No cyanosis Neurologic/Psychiatric: other (unable to cooperate with a neuro exam) Skin: No rash on exposed areas, No ulcerations on exposed areas Results/Procedures: Labs Laboratory Tests 05/15/19 14:49: Blood Gas Puncture Site LT [facility] ARTLINE, Blood Gas Patient Temperature 97.7, Arterial Blood pH 7.30*L, Arterial Blood Partial Pressure CO2 59H, Arterial Blood Partial Pressure O2 69L, Arterial Blood HCO3 28H, Arterial Blood Total CO2 30.3, Arterial Blood Oxygen Saturation 95, Arterial Blood Base Excess 2.5, Maurisio Test ART LINE, Blood Gas Ventilator Setting YES, Blood Gas Inspired Oxygen 45 05/15/19 15:41: Glucometer 257H 05/15/19 20:13: Glucometer 225H 05/15/19 23:57: Glucometer 184H 05/16/19 03:01: White Blood Count 6.7, Red Blood Count 2.48L, Hemoglobin 7.5L, Hematocrit 24L, Mean Corpuscular Volume 98, Mean Corpuscular Hemoglobin 30, Mean Corpuscular Hemoglobin Concent 31L, Red Cell Distribution Width 16.1H, Platelet Count 113L, Mean Platelet Volume 10.5H, Neutrophils (%) (Auto) 72, Lymphocytes (%) (Auto) 16, Monocytes (%) (Auto) 10, Eosinophils (%) (Auto) 1, Basophils (%) (Auto) 0, Neutrophils # (Auto) 4.8, Lymphocytes # (Auto) 1.1, Monocytes # (Auto) 0.7, Eosinophils # (Auto) 0.1, Basophils # (Auto) 0.0, Blood Gas Puncture Site ART LINE, Blood Gas Patient Temperature 97.4, Arterial Blood pH 7.36L, Arterial Blood Partial Pressure CO2 53H, Arterial Blood Partial Pressure O2 61L, Arterial Blood HCO3 30H, Arterial Blood Total CO2 31.1H, Arterial Blood Oxygen Saturation 94, Arterial Blood Base Excess 4.2H, Maurisio Test ART LINE, Blood Gas Ventilator Setting YES, Blood Gas Inspired Oxygen 35%, Sodium Level 143, Potassium Level 4.0, Chloride Level 106, Carbon Dioxide Level 26, Anion Gap 11, Blood Urea Nitrogen 28H, Creatinine 1.59H, Estimat Glomerular Filtration Rate 44, BUN/Creatinine Ratio 18, Glucose Level 191H, Calcium Level 7.3L, Phosphorus Level 2.9, Magnesium Level 1.9, B-Type Natriuretic Peptide 109.1H 05/16/19 05:55: Lactic Acid Level 1.29 05/16/19 08:09: Glucometer 195H 05/16/19 12:01: Glucometer 205H Microbiology 05/15/19 Urine Culture - Final, Complete NO GROWTH Laboratory Tests 05/14/19 16:24 05/14/19 20:00 05/15/19 02:15 05/15/19 06:00 05/16/19 03:01 A/P: Assessment: Status post lumbar spine surgery on 05/13/19 with multiple post-operative issues that are noted below Type 2 acute resp failure. Currently, intubated and on [facility] vent Worsening anemia of undetermined etiology, managed by Dr Law Acute renal failure, probably secondary to obstructive uropathy, improving Obesity with obesity hypovent syndrome Coronary artery disease history of CABG 6 done in 2012, history of multiple interventions in the past Hypertension, by history Hyperlipidemia, by history Diabetes mellitus, Type 2 Plan: * Complex management due to multiple comorbidities * Beta-woody, if bp tolerates * Oral ASA when extubated and if ok with the Surg Svce and with Dr Law * Monitor labs JONATHAN EPPERSON MD FACP FACC CCDS May 16, 2019 13:14
--- NOTE | 2019-05-16 15:15 | Progress Note-Hospitalist ---
Subjective HPI/CC On Admission Date Seen by Provider: May 16, 2019 Time Seen by Provider: 11:00 Chief complaint: CO2 narcosis History of present illness: This is a 68-year-old white male clinic patient of Dr. Moreno and Dr. Hernández cardiology who presents after an uncomplicated lumbar spine surgery by Dr. Carrasco yesterday who is becoming more and more somnolent later this morning after an uneventful night then appeared to have CO2 retention causing confusion. ABG was checked revealing pH is 7.1 and CO2 of 56 in addition he had clot retention and the Alves catheter causing decrease in urinary output with elevated creatinine. He was found to be criteria to be transferred to via [facility] ICU and Dr. Ahn and Dr. Duke graciously accepted consultation request along with urology. Potassium is retained due to postobstructive outflow with clot retention but now he is not requiring bladder irrigation to resolve the clot retention and hopefully will help creatinine decline and facilitate hyperkalemia which is also being treated with Kayexalate and IV insulin and albuterol breathing treatments. Subjective/Events-last exam Patient still intubated Reviewed meds and labs Appreciate Dr Ahn consultation and expertise on vent management Focused Exam Lactate Level 05/15/19 06:00: Lactic Acid Level 2.37*H 05/15/19 11:21: Lactic Acid Level 2.35*H 05/16/19 05:55: Lactic Acid Level 1.29 Objective Exam Vital Signs Vital Signs Date Time Temp Pulse Resp B/P (MAP) Pulse Ox O2 Delivery O2 Flow Rate FiO2 05/16/19 15:00 72 17 151/44 (79) 95 Mechanical Ventilator 40.00 05/16/19 14:01 45 05/16/19 13:38 97.1 Capillary Refill : Less Than 3 Seconds General Appearance: No Apparent Distress, WD/WN, Obese, Other (Intubated) Neck: Normal Inspection Respiratory: Accessory Muscle Use, Decreased Breath Sounds Cardiovascular: Regular Rate, Rhythm, No Edema, No Murmur Gastrointestinal: Normal Bowel Sounds, No Organomegaly, No Pulsatile Mass, Soft Extremity: Pedal Edema Neurologic/Psychiatric: Other (Intubated) Skin: Normal Color, Warm/Dry Lymphatic: No Adenopathy Results/Procedures Lab Laboratory Tests 05/16/19 03:01 Patient resulted labs reviewed. Assessment/Plan Assessment and Plan Assess & Plan/Chief Complaint Assessment: Acute respiratory failure- intubated CO2 narcosis Obstructive sleep apnea with CPAP CAD Elevated BNP Acute renal failure Hyperkalemia Hypertension Diabetes mellitus Plan: Intubation Follow ABG Appreciate Dr. Duke and Dr. Ahn consultations along with urology Maintain Alves catheter Treated hyperkalemia Monitor closely Gentle IV fluids [place] if diff wean Diagnosis/Problems Diagnosis/Problems (1) CO2 narcosis Status: Acute (2) SIDNEY on CPAP Status: Chronic (3) CAD (coronary artery disease) Status: Chronic Qualifiers: Coronary Disease-Associated Artery/Lesion type: [place] artery [place] vs. 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 use: without superintendent [employer] use Diabetes mellitus complication status: with other specified complication Qualified Codes: E11.69 - Type 2 diabetes mellitus with other specified complication (5) Obesity Status: Chronic Qualifiers: Obesity type: due to excess calories Obesity classification: adult class 3 (BMI >= 40) Serious obesity comorbidity presence: with serious comorbidity Body mass index: BMI 40.0-44.9 Qualified Codes: E66.01 - Morbid (severe) obesity due to excess calories; Z68.41 - Body mass index (BMI) 40.0-44.9, adult (6) Status post lumbar spine surgery for decompression of spinal cord Status: Acute (7) Renal failure Status: Acute Qualifiers: Acute renal failure type: unspecified Chronic kidney disease stage: stage 4 (severe) (8) Hyperkalemia Status: Acute (9) Clot retention of urine Status: Acute (10) Elevated brain natriuretic peptide (BNP) level Status: Acute Clinical Quality Measures DVT/VTE Risk/Contraindication: Risk Factor Score Per Nursin RFS Level Per Nursing on Admit: 4+=Very High JASPER LONG DO May 16, 2019 15:15
[2019-05-16] MEDS: hydrALAZINE (APESOLINE) 20 MG/ML VIAL IV PRN ×2 (15:59→21:11)
[2019-05-16] MEDS: fentaNYL INJECTION 100 MCG/2 ML AMP IVP PRN ×2 (19:56→23:29)
[2019-05-17] VITALS (27 sets, daily range): BP systolic 87–161; BP diastolic 34–73
[2019-05-17] MEDS: LACTATED RINGERS 1,000 ML IV SCH ×3 (00:26→12:35)
[2019-05-17] MEDS: inSUlin ASPART (NovoLOG) 1 UNIT/0.01 ML (CHARGE PER UNIT) SC SCH ×4 (00:27→12:35)
[2019-05-17] MEDS: fentaNYL INJECTION 1,250 MCG in NORMAL SALINE 250 ML INJ PRN (01:39)
[2019-05-17] MEDS: PROPOFOL DRIP (ICU) 100 ML IV SCH ×5 (02:22→16:23)
[2019-05-17] MEDS: RT-ALBUTEROL/IPRATROPIUM 3 ML (DUONEB) VIAL INH SCH ×4 (02:43→14:12)
[2019-05-17 03:41] LABS: ABG BASE EXCESS 3.1 MMOL/L (-2.5-2.5); ABG OXYGEN SATURATION 98 % (94-100); ABG PCO2 56 MMHG (35-45); ABG PO2 89 MMHG (79-93); ABG TCO2 30.2 MMOL/L (21.0-31.0); BASOPHILS % (AUTO) 0 % (0-10); EOSINOPHILS # (AUTO) 0.2 10^3/uL (0.0-0.3); EOSINOPHILS % (AUTO) 2 % (0-10); HEMATOCRIT 25 % (40-54); HEMOGLOBIN 7.7 G/DL (13.3-17.7); LYMPHOCYTES # (AUTO) 1.3 X 10^3 (1.0-4.0); LYMPHOCYTES % (AUTO) 17 % (12-44); MEAN CORPUSCULAR HEMOGLOBIN 30 PG (25-34); MEAN CORPUSCULAR HGB CONC 31 G/DL (32-36); MEAN CORPUSCULAR VOLUME 98 FL (80-99); MEAN PLATELET VOLUME 10.5 FL (7.4-10.4); MONOCYTES # (AUTO) 0.9 X 10^3 (0.0-1.0); MONOCYTES % (AUTO) 11 % (0-12); NEUTROPHILS # (AUTO) 5.3 X 10^3 (1.8-7.8); NEUTROPHILS % (AUTO) 69 % (42-75); PLATELET COUNT 122 10^3/uL (130-400); RED CELL DISTRIBUTION WIDTH 17.7 % (10.0-14.5); WHITE BLOOD COUNT 7.7 10^3/uL (4.3-11.0)
[2019-05-17 03:43] LABS: ABG PH 7.33 (7.37-7.43)
[2019-05-17 03:44] LABS: ALLENS TEST ART LINE; INSPIRED O2 40%; VENTILATOR YES
[2019-05-17 04:03] LABS: CALCIUM 7.7 MG/DL (8.5-10.1); CREATININE SERUM 1.56 MG/DL (0.60-1.30); MAGNESIUM 1.8 MG/DL (1.8-2.4); PHOSPHORUS 2.8 MG/DL (2.3-4.7)
[2019-05-17] MEDS: POTASSIUM CL 10MEQ/50ML IVPB 50 ML IV SCH (04:59)
[2019-05-17] MEDS: KCL 20 MEQ TAB (K-DUR) PO SCH (05:00)
[2019-05-17] MEDS: MAGNESIUM 1 GM/100 ML IVPB 100 ML IV SCH (05:00)
--- NOTE | 2019-05-17 06:20 | Pulmonary Progress Note ---
Subjective Time Seen by a Provider: 06:18 Subjective/Events-last exam Pt is sedated on vent. Sepsis Event Evaluation Height, Weight, BMI Height: 6'70.00" Weight: 311lbs. 0.0oz. [id number]; 10.5 BMI Method:Stated Focused Exam Lactate Level 05/15/19 06:00: Lactic Acid Level 2.37*H 05/15/19 11:21: Lactic Acid Level 2.35*H 05/16/19 05:55: Lactic Acid Level 1.29 Exam Exam Vital Signs Date Time Temp Pulse Resp B/P (MAP) Pulse Ox O2 Delivery O2 Flow Rate FiO2 05/17/19 06:00 76 19 101/47 (65) 96 Mechanical Ventilator 40.00 05/17/19 05:12 98.8 85 21 108/47 94 Mechanical Ventilator 40.00 05/17/19 05:00 80 19 103/47 (65) 95 Mechanical Ventilator 40.00 05/17/19 04:00 83 20 104/47 (66) 95 Mechanical Ventilator 40.00 05/17/19 03:00 85 21 108/47 (67) 94 Mechanical Ventilator 40.00 05/17/19 02:43 85 21 93 45 05/17/19 02:22 114/53 05/17/19 02:00 86 21 109/48 (68) 92 Mechanical Ventilator 40.00 05/17/19 01:00 86 05/17/19 01:00 86 22 109/48 (68) 93 Mechanical Ventilator 40.00 05/17/19 00:19 87 16 98/36 (56) 92 Mechanical Ventilator 40.00 05/17/19 00:00 Mechanical Ventilator 45 05/17/19 00:00 88 20 87/34 (51) 93 Mechanical Ventilator 40.00 05/16/19 23:19 98.8 85 23 124/34 92 Mechanical Ventilator 40.00 05/16/19 23:00 87 22 119/33 (61) 93 Mechanical Ventilator 40.00 05/16/19 22:38 85 23 92 45 05/16/19 22:00 84 21 127/34 (65) 93 Mechanical Ventilator 40.00 05/16/19 21:09 243/57 05/16/19 21:00 78 26 148/43 (78) 93 Mechanical Ventilator 40.00 05/16/19 20:46 98.8 05/16/19 20:00 84 20 146/34 (71) 93 Mechanical Ventilator 40.00 05/16/19 20:00 Mechanical Ventilator 45 05/16/19 19:02 80 21 93 45 05/16/19 19:00 79 05/16/19 19:00 79 20 150/38 (75) 92 Mechanical Ventilator 40.00 05/16/19 18:19 79 05/16/19 18:00 80 20 142/35 (70) 91 Mechanical Ventilator 40.00 05/16/19 17:00 79 26 161/35 (77) 94 Mechanical Ventilator 40.00 05/16/19 16:01 81 24 94 45 05/16/19 16:00 82 20 224/54 (110) 94 Mechanical Ventilator 40.00 05/16/19 16:00 83 05/16/19 16:00 Mechanical Ventilator 30 05/16/19 15:00 72 17 151/44 (79) 95 Mechanical Ventilator 40.00 05/16/19 14:01 72 18 94 45 05/16/19 14:00 74 18 161/45 (83) 95 Mechanical Ventilator 40.00 05/16/19 13:38 97.1 73 19 166/44 (84) 96 Mechanical Ventilator 45.00 05/16/19 13:00 70 17 176/48 (90) 93 Mechanical Ventilator 30.00 05/16/19 13:00 70 05/16/19 12:50 73 05/16/19 12:27 Mechanical Ventilator 30 05/16/19 12:00 66 15 146/48 (80) 98 Mechanical Ventilator 30.00 05/16/19 11:36 97.8 70 18 147/44 99 Mechanical Ventilator 30 05/16/19 11:00 71 18 140/41 (74) 99 Mechanical Ventilator 30.00 05/16/19 10:10 72 18 100 30 05/16/19 10:00 71 18 143/44 (77) 100 Mechanical Ventilator 30.00 05/16/19 09:32 97.4 73 18 158/44 100 Mechanical Ventilator 40 05/16/19 09:31 70 05/16/19 09:31 97.4 72 18 134/44 100 Mechanical Ventilator 40 05/16/19 09:16 97.1 73 18 145/40 100 Mechanical Ventilator 40 05/16/19 09:00 74 19 144/40 (74) 97 Mechanical Ventilator 30.00 05/16/19 08:00 77 19 159/43 (81) 91 Mechanical Ventilator 30.00 05/16/19 07:27 97.1 77 18 142/40 (74) 96 Mechanical Ventilator 30.00 05/16/19 07:22 Mechanical Ventilator 30 05/16/19 07:00 75 05/16/19 07:00 75 17 128/36 (66) 96 Mechanical Ventilator 30.00 05/16/19 06:36 75 18 96 30 05/16/19 06:29 Mechanical Ventilator 30.00 I & O 05/17/19 07:00 Intake Total 1045 ml Output Total 1270 ml Balance -225 ml Height & Weight Height: 6'70.00" Weight: 311lbs. 0.0oz. 141.738953dj; 10.5 BMI Method:Stated General Appearance: No Apparent Distress, WD/WN, Obese, Other (Intubated) Neck: Normal Inspection Respiratory: Accessory Muscle Use, Decreased Breath Sounds Cardiovascular: Regular Rate, Rhythm, No Edema, No Murmur Capillary Refill: Less Than 3 Seconds Gastrointestinal: normal bowel sounds, non tender, soft Extremity: Pedal Edema Neurologic/Psychiatric: Other (Intubated) Skin: Normal Color, Warm/Dry Lymphatic: No Adenopathy Results Lab Laboratory Tests 05/16/19 03:01 05/17/19 03:31 Assessment/Plan Assessment/Plan Acute on chronic respiratory failure with C02 narcosis -Add precedex and wean Diprivan down -SVNS Q 4 -continue vent - pt is not ready for weaning yet -repeat LA Anemia - monitor Metabolic lactic acidosis -recheck LA Leukcoytosis - reactive and improving -Continue to monitor Acute renal failure - improving -Decreased UO today and concentrated -Continue IVF at 150cc/hr and continue to monitor HTN - Dm II SIDNEY/OHS CAD Acute renal failure ANIYA DUDLEY DO May 17, 2019 06:20
[2019-05-17] MEDS: DEXMEDETOMIDINE INJECTION 1,000 MCG in NS (IVPB) 250 ML IV PRN ×3 (06:36→15:29)
[2019-05-17] MEDS: meTOprolol TARTRATE 25 MG (LOPRESSOR) TABLET PO SCH (07:43)
--- NOTE | 2019-05-17 07:53 | Diagnostic Imaging Report ---
INDICATION: Dyspnea. Shortness of air. COMPARISON: 05/16/2019 FINDINGS: Single frontal radiographic view of the chest was obtained and demonstrates indwelling endotracheal tube in stable position. Gastric tube extends inferiorly beyond the [id number]. Right upper extremity PICC line is noted. Central tip is obscured. Cardiomediastinal structures again show mild cardiomegaly and mild pulmonary vascular congestion. Lungs show low respiratory volumes with asymmetric elevation of the right hemidiaphragm. There is some associated bibasilar patchy airspace disease. No large effusion or pneumothorax is seen on either side. Bony structures show no gross acute abnormalities. IMPRESSION: 1. Lines and tubes as above. 2. Cardiomegaly with probable mild pulmonary vascular congestion. 3. Persistent low lung volumes with probable bibasilar atelectasis. Dictated by: Dictated on workstation # [id number]
[2019-05-17] MEDS: PANTOPRAZOLE 40 MG (PROTONIX) VIAL IV SCH (07:57)
[2019-05-17] MEDS: LIDOCAINE 4% (SALONPAS) PATCH TOP SCH (07:59)
[2019-05-17] MEDS ORDERED: NS IV 500 ML 500 ML IV SCH (08:20)
--- NOTE | 2019-05-17 08:43 | Progress Note-Cardiology ---
Cardiology SOAP Progress Note Subjective: Intubated and sedated. Family x 1 at the bedside. Objective: I&O/Vital Signs 05/16/19 05/16/19 05/16/19 05/16/19 22:00 22:38 23:00 23:19 Temp 98.8 Pulse 84 85 87 85 Resp 21 22 23 B/P (MAP) 127/34 (65) 119/33 (61) 124/34 Pulse Ox 93 92 93 92 O2 Delivery Mechanical Ventilator Mechanical Ventilator Mechanical Ventilator O2 Flow Rate 40.00 40.00 40.00 FiO2 45 05/17/19 05/17/19 05/17/19 05/17/19 00:00 00:00 00:19 01:00 Pulse 88 87 86 Resp B/P (MAP) 87/34 (51) 98/36 (56) 109/48 (68) Pulse Ox 93 92 93 O2 Delivery Mechanical Ventilator Mechanical Ventilator Mechanical Ventilator Mechanical Ventilator O2 Flow Rate 40.00 40.00 40.00 FiO2 45 05/17/19 05/17/19 05/17/19 05/17/19 01:00 02:00 02:22 02:43 Pulse 86 86 85 Resp B/P (MAP) 109/48 (68) 114/53 Pulse Ox 92 93 O2 Delivery Mechanical Ventilator O2 Flow Rate 40.00 FiO2 45 05/17/19 05/17/19 05/17/19 05/17/19 03:00 04:00 04:00 05:00 Pulse 85 83 80 Resp B/P (MAP) 108/47 (67) 104/47 (66) Pulse Ox 94 95 95 O2 Delivery Mechanical Ventilator Mechanical Ventilator Mechanical Ventilator O2 Flow Rate 40.00 40.00 FiO2 45 05/17/19 05/17/19 05/17/19 05/17/19 05:00 05:12 06:00 06:10 Temp 98.8 Pulse 80 85 76 76 Resp B/P (MAP) 103/47 (65) 108/47 101/47 (65) Pulse Ox 95 94 96 96 O2 Delivery Mechanical Ventilator Mechanical Ventilator Mechanical Ventilator O2 Flow Rate 40.00 40.00 40.00 FiO2 45 05/17/19 05/17/19 05/17/19 05/17/19 06:30 07:00 08:00 08:45 Pulse 79 73 70 67 Resp 21 21 22 20 B/P (MAP) 112/49 (70) 99/45 (63) 110/51 (70) Pulse Ox 90 92 93 93 O2 Delivery Mechanical Ventilator Mechanical Ventilator Mechanical Ventilator O2 Flow Rate 35.00 40.00 40.00 FiO2 35 05/17/19 05/17/19 08:53 09:00 Temp 97.4 Pulse 72 Resp 23 B/P (MAP) 111/53 106/53 (70) Pulse Ox 94 O2 Delivery Mechanical Ventilator O2 Flow Rate 40.00 05/17/19 00:00 Intake Total 300 ml Output Total 750 ml Balance -450 ml Weight (Pounds): 333 Weight (Ounces): 0.0 Weight (Calculated Kilograms): 151.197193 Constitutional: other (intubated, sedated, unable to cooperate with exam) Respiratory: No accessory muscle use; rhonchi (scattered over lg airways), other (fair to good bilat air entry, diminished at the basees) Cardiovascular: regular rate-rhythm, S1 and S2, systolic murmur (soft MARA at card base) Gastrointestional: soft; No guarding, No rebound; audible bowel sounds Extremities: No swelling (mild bilat edema), No clubbing, No cyanosis Neurologic/Psychiatric: other (unable to cooperate with a neuro exam) Skin: No rash on exposed areas, No ulcerations on exposed areas Results/Procedures: Labs Laboratory Tests 05/16/19 12:01: Glucometer 205H 05/16/19 16:38: Glucometer 171H 05/16/19 20:41: Glucometer 202H 05/17/19 00:16: Glucometer 204H 05/17/19 03:31: White Blood Count 7.7, Red Blood Count 2.53L, Hemoglobin 7.7L, Hematocrit 25L, Mean Corpuscular Volume 98, Mean Corpuscular Hemoglobin 30, Mean Corpuscular Hemoglobin Concent 31L, Red Cell Distribution Width 17.7H, Platelet Count 122L, Mean Platelet Volume 10.5H, Neutrophils (%) (Auto) 69, Lymphocytes (%) (Auto) 17, Monocytes (%) (Auto) 11, Eosinophils (%) (Auto) 2, Basophils (%) (Auto) 0, Neutrophils # (Auto) 5.3, Lymphocytes # (Auto) 1.3, Monocytes # (Auto) 0.9, Eosinophils # (Auto) 0.2, Basophils # (Auto) 0.0, Blood Gas Puncture Site LT RADIAL, Blood Gas Patient Temperature 99.0, Arterial Blood pH 7.33*L, Arterial Blood Partial Pressure CO2 56H, Arterial Blood Partial Pressure O2 89, Arterial Blood HCO3 29H, Arterial Blood Total CO2 30.2, Arterial Blood Oxygen Saturation 98, Arterial Blood Base Excess 3.1H, Maurisio Test ART LINE, Blood Gas Ventilator Setting YES, Blood Gas Inspired Oxygen 40%, Sodium Level 141, Potassium Level 4.0, Chloride Level 106, Carbon Dioxide Level 26, Anion Gap 9, Blood Urea Nitrogen 25H, Creatinine 1.56H, Estimat Glomerular Filtration Rate 45, BUN/Creatinine Ratio 16, Glucose Level 180H, Calcium Level 7.7L, Phosphorus Level 2.8, Magnesium Level 1.8, Triglycerides Level 356H 05/17/19 06:48: Lactic Acid Level 1.00 05/17/19 08:50: Glucometer 288H Microbiology 05/15/19 Blood Culture - Preliminary, Resulted No growth 05/15/19 Gram Stain - Final, Resulted 05/15/19 Sputum Culture - Preliminary, Resulted Usual upper respiratory megan 05/15/19 Urine Culture - Final, Complete NO GROWTH Laboratory Tests 05/16/19 03:01 05/17/19 03:31 Procedures NAME: MARANDA BURNS [facility] REC#: [id number] PT STATUS: ADM IN : 1950 PHYSICIAN: ANIYA DUDLEY DO ADMIT DATE: 05/14/19/ICU Draft Date of Exam:05/17/19 CHEST 1 VIEW, AP/PA ONLY INDICATION: Dyspnea. Shortness of air. COMPARISON: 05/16/2019 FINDINGS: Single frontal radiographic view of the chest was obtained and demonstrates indwelling endotracheal tube in stable position. Gastric tube extends inferiorly beyond the [id number]. Right upper extremity PICC line is noted. Central tip is obscured. Cardiomediastinal structures again show mild cardiomegaly and mild pulmonary vascular congestion. Lungs show low respiratory volumes with asymmetric elevation of the right hemidiaphragm. There is some associated bibasilar patchy airspace disease. No large effusion or pneumothorax is seen on either side. Bony structures show no gross acute abnormalities. IMPRESSION: 1. Lines and tubes as above. 2. Cardiomegaly with probable mild pulmonary vascular congestion. 3. Persistent low lung volumes with probable bibasilar atelectasis. Dictated on workstation # [id number] Dict: 05/17/19 0748 Trans: 05/17/19 0752 KB [id number] Interpreted by: CLIFTON HOOVER MD with multiple post-operative issues that are noted below Type 2 acute resp failure. Currently, intubated and on mech vent Worsening anemia of undetermined etiology, managed by Dr Law Acute renal failure, probably secondary to obstructive uropathy Obesity with obesity hypovent syndrome Coronary artery disease history of CABG 6 done in 2012, history of multiple interventions in the past Hypertension, by history Hyperlipidemia, by history Diabetes mellitus, Type 2 Plan: * Complex management due to multiple comorbidities * Low dose Beta-woody, if bp tolerates * Oral ASA when extubated and if ok with the Surg Svce and with Medical services * Spoke with Dr. Montez of medical services today; plan is for transfusion and Dr. Lao consult d/t anemia * Monitor labs Physician Assessment Physician Assessment Still on mech vent. Unable to communicate Lungs: fair to good bilat air entry Cor: reg Ext: no c/c/e A&R * As documented in our note above that I updated (italics) and as noted below * Resume ASA when extubated and when active bleeding excluded * I discussed his case with Dr Lao this am. It would be reasonable to proceed with endoscopy in effort to identify the source of anemia and to treat it (Dr Montez suspecting a GI source) DEON STANLEY May 17, 2019 08:43 JONATHAN EPPERSON MD [facility] May 17, 2019 09:31
[2019-05-17] MEDS ORDERED: meTOprolol TARTRATE 25 MG (LOPRESSOR) TABLET PO SCH (09:00)
--- NOTE | 2019-05-17 11:20 | NUR ---
Pastoral care visit.
--- NOTE | 2019-05-17 13:26 | Consultation (Surgery) ---
History of Present Illness History of Present Illness Patient Consulted On(jose ramon/time) 05/17/19 13:24 Date Seen by Provider: May 17, 2019 Time Seen by Provider: 08:59 Reason for Visit: CAD History of Present Illness consult requested by Dr. Montez for anemia patient is a 68-year-old male who underwent recent lumbar spine surgery. Patient went to CO2 narcosis and had to be intubated. Patient's hemoglobin has slowly trended down over hospitalization. patient was found to be anemic and was asked if we could do EGD to further evaluate cause of anemia. Patient is currently intubated and sedated. Allergies and Home Medications Allergies Coded Allergies: No Known Drug Allergies (Verified , 05/17/19) Home Medications Aspirin 81 Mg Tablet.dr, 81 MG PO DAILY, (Reported) Clopidogrel Bisulfate 75 Mg Tablet, 75 MG PO DAILY, (Reported) Famotidine 20 Mg Tablet, 20 MG PO BID, (Reported) Furosemide 40 Mg Tablet, 40 MG PO DAILY PRN for SWELLING, (Reported) Gabapentin 300 Mg Capsule, 300 MG PO DAILY, (Reported) Gabapentin 300 Mg Capsule, 600 MG PO HS, (Reported) TAKES 2 (300MG) CAPSULES Glimepiride 4 Mg Tablet, 4 MG PO BID, (Reported) Lisinopril 10 Mg Tablet, 10 MG PO DAILY, (Reported) Metformin HCl 500 Mg Tablet, 1,000 MG PO BID, (Reported) TAKES 2 (500MG) TABLETS Metoprolol Tartrate 25 Mg Tablet, 12.5 MG PO BID, (Reported) TAKES 1/2 (25MG) TABLET Multivitamin 1 Each Tablet, 1 TAB PO DAILY, (Reported) Potassium Chloride 20 Meq Tab.er.prt, 20 MEQ PO DAILY PRN for WHEN TAKING FUROSEMIDE, (Reported) Pravastatin Sodium 40 Mg Tablet, 40 MG PO DAILY, (Reported) Patient Home Medication List Home Medication List Reviewed: Yes Past Mupsypi-Sokrxj-Vbmquu Hx Patient Social History Smoking Status: Unknown if Ever Smoked Immunizations Up To Date Tetanus Booster (TDap): More than 5yrs Surgeries History of Surgeries: Yes (recent back surgery) Surgeries: CABG Respiratory History of Respiratory Disorde: Yes (history of CO2 narcosis) Cardiovascular Cardiac Disorders: Coronary Artery Disease, High Cholesterol, Hypertension Neurological Neurological Disorders: Neuropathy Genitourinary Genitourinary Disorders: Benign Prostatic Hyperpl Gastrointestinal Gastrointestinal Disorders: Gastroesophageal Reflux, Chronic Constipation Musculoskeletal Musculoskeletal Disorders: Arthritis, Chronic Back Pain Endocrine Endocrine Disorders: Diabetes, Non-Insulin dep Blood Transfusions Adverse Reaction to a Blood Tr: No Family Medical History Significant Family History: No Pertinent Family Hx Review of Systems-General ROS-Unable to Obtain: patient intubated and sedated Physical Exam-General Problems Physical Exam Vital Signs Vital Signs - First Documented 05/14/19 05/14/19 05/14/19 09:00 11:30 12:00 Temp 97.8 Pulse 78 Resp 9 B/P (MAP) 97/65 (76) Pulse Ox 94 O2 Delivery NIV Bilevel O2 Flow Rate 30.00 FiO2 40 Capillary Refill : Less Than 3 Seconds General Appearance: no apparent distress (intubated and sedated) HEENT: normal ENT inspection Neck: normal inspection Respiratory: other (Equal chest rise) Cardiovascular: regular rate, rhythm Gastrointestinal: soft, no organomegaly; No distended Rectal: deferred Extremities: normal inspection Neurologic/Psychiatric: No alert (Sedated), No oriented x 3 Skin: warm/dry Lymphatic: no adenopathy Data Review Labs Laboratory Tests 05/16/19 16:38: Glucometer 171H 05/16/19 20:41: Glucometer 202H 05/17/19 00:16: Glucometer 204H 05/17/19 03:31: White Blood Count 7.7, Red Blood Count 2.53L, Hemoglobin 7.7L, Hematocrit 25L, Mean Corpuscular Volume 98, Mean Corpuscular Hemoglobin 30, Mean Corpuscular Hemoglobin Concent 31L, Red Cell Distribution Width 17.7H, Platelet Count 122L, Mean Platelet Volume 10.5H, Neutrophils (%) (Auto) 69, Lymphocytes (%) (Auto) 17, Monocytes (%) (Auto) 11, Eosinophils (%) (Auto) 2, Basophils (%) (Auto) 0, Neutrophils # (Auto) 5.3, Lymphocytes # (Auto) 1.3, Monocytes # (Auto) 0.9, Eosinophils # (Auto) 0.2, Basophils # (Auto) 0.0, Blood Gas Puncture Site LT RADIAL, Blood Gas Patient Temperature 99.0, Arterial Blood pH 7.33*L, Arterial Blood Partial Pressure CO2 56H, Arterial Blood Partial Pressure O2 89, Arterial Blood HCO3 29H, Arterial Blood Total CO2 30.2, Arterial Blood Oxygen Saturation 98, Arterial Blood Base Excess 3.1H, Maurisio Test ART LINE, Blood Gas Ventilator Setting YES, Blood Gas Inspired Oxygen 40%, Sodium Level 141, Potassium Level 4.0, Chloride Level 106, Carbon Dioxide Level 26, Anion Gap 9, Blood Urea Nitrogen 25H, Creatinine 1.56H, Estimat Glomerular Filtration Rate 45, BUN/Creatinine Ratio 16, Glucose Level 180H, Calcium Level 7.7L, Phosphorus Level 2.8, Magnesium Level 1.8, Triglycerides Level 356H 05/17/19 06:48: Lactic Acid Level 1.00 05/17/19 08:50: Glucometer 288H 05/17/19 11:58: Glucometer 253H Microbiology 05/15/19 Blood Culture - Preliminary, Resulted No growth 05/15/19 Gram Stain - Final, Complete 05/15/19 Sputum Culture - Final, Complete Usual upper respiratory megan 05/15/19 Urine Culture - Final, Complete NO GROWTH Assessment/Plan Assessment/Plan Assessment/Plan Respiratory failure anemia suspect upper GI bleed CO2 narcosis patient family discussed risks and benefits of having egd performed, they understand and wish to proceed. Plan EGD For further evaluation of anemia. Would start Protonix Clinical Quality Measures DVT/VTE Risk/Contraindication: Risk Factor Score Per Nursin RFS Level Per Nursing on Admit: 4+=Very High LEWIS KOHLI DO May 17, 2019 13:26
--- NOTE | 2019-05-17 13:54 | Progress Note-Hospitalist ---
Subjective HPI/CC On Admission Date Seen by Provider: May 17, 2019 Time Seen by Provider: 13:50 Chief complaint: CO2 narcosis History of present illness: This is a 68-year-old white male clinic patient of Dr. Moreno and Dr. Hernández cardiology who presents after an uncomplicated lumbar spine surgery by Dr. Carrasco yesterday who is becoming more and more somnolent later this morning after an uneventful night then appeared to have CO2 retention causing confusion. ABG was checked revealing pH is 7.1 and CO2 of 56 in addition he had clot retention and the Alves catheter causing decrease in urinary output with elevated creatinine. He was found to be criteria to be transferred to via [facility] ICU and Dr. Ahn and Dr. Duke graciously accepted consultation request along with urology. Potassium is retained due to postobstructive outflow with clot retention but now he is not requiring bladder irrigation to resolve the clot retention and hopefully will help creatinine decline and facilitate hyperkalemia which is also being treated with Kayexalate and IV insulin and albuterol breathing treatments. Subjective/Events-last exam Pt is intubated and sedated. Unable to provide ROS. Family at bedside and again requesting evaluation for transfer to [facility] as they have had other family there who did well. Focused Exam Lactate Level 05/15/19 11:21: Lactic Acid Level 2.35*H 05/16/19 05:55: Lactic Acid Level 1.29 05/17/19 06:48: Lactic Acid Level 1.00 Objective Exam Vital Signs Vital Signs Date Time Temp Pulse Resp B/P (MAP) Pulse Ox O2 Delivery O2 Flow Rate FiO2 05/17/19 12:53 97.5 65 20 139/60 95 Mechanical Ventilator 35 05/17/19 12:00 35.00 Capillary Refill : Less Than 3 Seconds General Appearance: No Apparent Distress, WD/WN, Obese, Other (Intubated) Neck: Normal Inspection Respiratory: Accessory Muscle Use, Decreased Breath Sounds Cardiovascular: Regular Rate, Rhythm, No Edema, No Murmur Gastrointestinal: Normal Bowel Sounds, No Organomegaly, No Pulsatile Mass, Soft Extremity: Pedal Edema Neurologic/Psychiatric: Other (Intubated) Skin: Normal Color, Warm/Dry Lymphatic: No Adenopathy Results/Procedures Lab Laboratory Tests 05/17/19 03:31 Patient resulted labs reviewed. Assessment/Plan Assessment and Plan Assess & Plan/Chief Complaint Acute hypercapnic respiratory failure- intubated Pulm consulted, appreciate recs Discussed with [facility] for evaluation for vent weaning per family request Anemia New onset- transfused 1 unit yesterday with minimal improvement Will repeat today Surgery consulted, appreciate recs Protonix started JAMES Improved CAD s/p CABG Transfuse to keep hgb >8 Cardiology consulted, appreciate recs Hypertension Hold home meds due to low/normotensive Diabetes mellitus sliding scale Clinical Quality Measures DVT/VTE Risk/Contraindication: Risk Factor Score Per Nursin RFS Level Per Nursing on Admit: 4+=Very High CHARLES FRAZIER MD May 17, 2019 13:54
--- NOTE | 2019-05-17 13:57 | NUR ---
CM/SS. Referral completed with [facility] at family request. Living Nurse enroute to assess patient in coordination with clinical information. Await decision for next steps.
--- NOTE | 2019-05-17 14:00 | NUR ---
LUMBAR DRAIN PULLED PER DR OROZCO. OLD DRESSING REPLACED W/ FOLDED 4X4 GAUZE AND ISLAND DRESSING.
--- NOTE | 2019-05-17 15:08 | NUR ---
CM/SS. Patient has been accepted for admission to [facility] when [facility] physicians are ready to transfer. Coordination should be with Rep/Rocío: [phone] Montez.
--- NOTE | 2019-05-17 15:40 | Discharge Summary-Hospitalist ---
Diagnosis/Chief Complaint Date of Admission May 14, 2019 at 09:24 Date of Discharge Discharge Date: May 17, 2019 Admission Diagnosis Assessment: Acute respiratory failure CO2 narcosis Obstructive sleep apnea with CPAP CAD Elevated BNP Acute renal failure Hyperkalemia Hypertension Diabetes mellitus Plan: BiPAP Follow ABG Appreciate Dr. Duke and Dr. Ahn consultations along with urology Maintain Alves catheter Treat hyperkalemia Monitor closely Gentle IV fluids Discharge Diagnosis (1) CO2 narcosis Status: Acute (2) SIDNEY on CPAP Status: Chronic (3) CAD (coronary artery disease) Status: Chronic (4) Diabetes mellitus Status: Chronic (5) Obesity Status: Chronic (6) Status post lumbar spine surgery for decompression of spinal cord Status: Acute (7) Renal failure Status: Acute (8) Hyperkalemia Status: Acute (9) Clot retention of urine Status: Acute (10) Elevated brain natriuretic peptide (BNP) level Status: Acute Discharge Summary Procedures/Consulations Dr Mcclure- Cardiology Dr Ahn- Pulm Dr Lao- Surgery Discharge Physical Exam Allergies: Coded Allergies: No Known Drug Allergies (Verified , 05/17/19) Vitals & I&Os Vital Signs Date Time Temp Pulse Resp B/P (MAP) Pulse Ox O2 Delivery O2 Flow Rate FiO2 05/17/19 14:12 65 23 94 35 05/17/19 12:53 97.5 139/60 Mechanical Ventilator 05/17/19 12:00 35.00 General Appearance: WD/WN, Chronically ill, Obese Respiratory: Other (on vent) Cardiovascular: Regular Rate, Rhythm, No Murmur Hospital Course Pt is a 68yoCM s/p lumbar surgery on 05/13 and postoperatively developed acute respiratory failure. He was transferred here from [address] for ICU level care and was intubated on 05/15 overnight. He likely has underlying obesity hypoventilation syndrome and known SIDNEY making vent weaning difficult. He was fo und to be anemic and underwent EGD on 05/17 and was found to have ulcers and was started on PPI. His family requested transfer to [facility] evaluation and transfer. He was evaluation by them and accepted for transfer. Labs (last 24 hrs) Laboratory Tests 05/16/19 16:38: Glucometer 171H 05/16/19 20:41: Glucometer 202H 05/17/19 00:16: Glucometer 204H 05/17/19 03:31: White Blood Count 7.7, Red Blood Count 2.53L, Hemoglobin 7.7L, Hematocrit 25L, Mean Corpuscular Volume 98, Mean Corpuscular Hemoglobin 30, Mean Corpuscular Hemoglobin Concent 31L, Red Cell Distribution Width 17.7H, Platelet Count 122L, Mean Platelet Volume 10.5H, Neutrophils (%) (Auto) 69, Lymphocytes (%) (Auto) 17, Monocytes (%) (Auto) 11, Eosinophils (%) (Auto) 2, Basophils (%) (Auto) 0, Neutrophils # (Auto) 5.3, Lymphocytes # (Auto) 1.3, Monocytes # (Auto) 0.9, Eosinophils # (Auto) 0.2, Basophils # (Auto) 0.0, Blood Gas Puncture Site LT RADIAL, Blood Gas Patient Temperature 99.0, Arterial Blood pH 7.33*L, Arterial Blood Partial Pressure CO2 56H, Arterial Blood Partial Pressure O2 89, Arterial Blood HCO3 29H, Arterial Blood Total CO2 30.2, Arterial Blood Oxygen Saturation 98, Arterial Blood Base Excess 3.1H, Maurisio Test ART LINE, Blood Gas Ventilator Setting YES, Blood Gas Inspired Oxygen 40%, Sodium Level 141, Potassium Level 4.0, Chloride Level 106, Carbon Dioxide Level 26, Anion Gap 9, Blood Urea Nitrogen 25H, Creatinine 1.56H, Estimat Glomerular Filtration Rate 45, BUN/Creatinine Ratio 16, Glucose Level 180H, Calcium Level 7.7L, Phosphorus Level 2.8, Magnesium Level 1.8, Triglycerides Level 356H 05/17/19 06:48: Lactic Acid Level 1.00 05/17/19 08:50: Glucometer 288H 05/17/19 11:58: Glucometer 253H Microbiology 05/15/19 Blood Culture - Preliminary, Resulted No growth 05/15/19 Gram Stain - Final, Complete 05/15/19 Sputum Culture - Final, Complete Usual upper respiratory megan 05/15/19 Urine Culture - Final, Complete NO GROWTH Patient resulted labs reviewed. Pending Labs Laboratory Tests 05/17/19 08:50: Glucometer 288 05/17/19 11:58: Glucometer 253 Discussion & Recommendations Discharge Planning: >30 minutes discharge planning Discharge Home Medications: Active Scripts Active Reported Metoprolol Tartrate 25 Mg Tablet 12.5 Mg PO BID TAKES 1/2 (25MG) TABLET Multivitamins (Multivitamin) 1 Each Tablet 1 Tab PO DAILY Aspirin EC (Aspirin) 81 Mg Tablet.dr 81 Mg PO DAILY Potassium Chloride 20 Meq Tab.er.prt 20 Meq PO DAILY PRN Lisinopril 10 Mg Tablet 10 Mg PO DAILY Glimepiride 4 Mg Tablet 4 Mg PO BID Famotidine 20 Mg Tablet 20 Mg PO BID Gabapentin 300 Mg Capsule 600 Mg PO HS TAKES 2 (300MG) CAPSULES Gabapentin 300 Mg Capsule 300 Mg PO DAILY Metformin HCl 500 Mg Tablet 1,000 Mg PO BID TAKES 2 (500MG) TABLETS Furosemide 40 Mg Tablet 40 Mg PO DAILY PRN Pravastatin Sodium 40 Mg Tablet 40 Mg PO DAILY Clopidogrel (Clopidogrel Bisulfate) 75 Mg Tablet 75 Mg PO DAILY Instructions to patient/family Please see electronic discharge instructions given to patient. Clinical Quality Measures DVT/VTE Risk/Contraindication: Risk Factor Score Per Nursin RFS Level Per Nursing on Admit: 4+=Very High Problem Qualifiers (1) CAD (coronary artery disease): Coronary Disease-Associated Artery/Lesion type: [place] artery [place] vs. 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: without local company intermodal truck driver use Diabetes mellitus complication status: with other specified complication Qualified Codes: E11.69 - Type 2 diabetes mellitus with other specified complication (3) Obesity: Obesity type: due to excess calories Obesity classification: adult class 3 (BMI >= 40) Serious obesity comorbidity presence: with serious comorbidity Body mass index: BMI 40.0-44.9 Qualified Codes: E66.01 - Morbid (severe) obesity due to excess calories; Z68.41 - Body mass index (BMI) 40.0-44.9, adult (4) Renal failure: Acute renal failure type: unspecified Chronic kidney disease stage: stage 4 (severe) CHARLES FRAZIER MD May 17, 2019 15:40
--- NOTE | 2019-05-17 15:51 | NUR ---
[facility] RN TO CALL THIS RN BACK FOR REPORT
--- NOTE | 2019-05-17 16:01 | NUR ---
90 ML CADD PUMP FENTANYL WASTED W/ PRINCE LOUIE.
--- NOTE | 2019-05-17 16:35 | NUR ---
attempted to call report to [facility] rn again.nurse unable to take report. [facility] informed pt is loaded up and about to be en route via [facility].ems aware [facility] did not take report.
--- NOTE | 2019-05-17 16:38 | NUR ---
pt left via cc [facility].
--- NOTE | 2019-05-17 16:46 | NUR ---
REPORT GIVEN TO LILIA LOUIE AT [facility]. NO QUESTIONS/CONCERNS VOICED.
--- NOTE | 2019-05-17 20:44 | Progress Note-Post Operative ---
Post-Operative Progess Note Surgeon (s)/[employer] Hand (s) Surgeon LEWIS KOHLI DO [employer] Hand: not applicable Pre-Operative Diagnosis anemia Post-Operative Diagnosis gastritis/ulcers Procedure & Operative Findings Date of Procedure 05/17/19 Procedure Performed/Findings EGD with biopsies Anesthesia Type sedation Estimated Blood Loss Estimated blood loss (mL): none Specimens/Packing Specimens Removed antrum, body LEWIS KOHLI DO May 17, 2019 20:44
[2019-05-17] MEDS ORDERED: PANTOPRAZOLE 40 MG (PROTONIX) VIAL IV SCH (21:00)
--- NOTE | 2019-05-18 01:02 | OPERATIVE REPORT ---
DATE OF SERVICE: 05/17/2019 PREOPERATIVE DIAGNOSIS: Anemia. POSTOPERATIVE DIAGNOSES: Gastritis, ulcers. PROCEDURE: EGD with biopsy. SURGEON: Lewis Lao DO ANESTHESIA: Sedation. ESTIMATED BLOOD LOSS: None. COMPLICATIONS: None. SPECIMENS: Antrum and body. INDICATIONS: The patient is a 68-year-old male with recent back surgery. He went to CO2 narcosis with respiratory failure. The patient is intubated and sedated at this time. The patient with anemia, which he has continued to trend downwards, which was felt the patient would benefit from having EGD for further evaluation. Consent was signed in the chart. DESCRIPTION OF PROCEDURE: The patient was intubated and sedated currently. Therefore, timeout was performed. Scope was inserted into the mouth, down the esophagus, stomach and into the duodenum without difficulty. There were no polyps, masses or ulcerations within the duodenum. Scope was slowly retracted back into the stomach where it was further insufflated. The antrum had some slight erythematous changes. Biopsy of the antrum was obtained. In the body, three small ulcerations were present, which one have the appearance of possible recent bleeding. There was surrounding erythematous changes of gastritis around these areas as well. Biopsy of the antrum was obtained along with biopsy of this area of the body was obtained. Scope was retroflexed noting no other pathology. Scope was returned to its normal position, slowly withdrawn to the distal esophagus, which had normal appearance. No polyps, masses or ulcerations. Scope was slowly retracted back to completely remove, noting no other pathology. RECOMMENDATIONS: The patient is to continue on Protonix. Continue to follow hemoglobin and transfuse as needed. If continues to have bleeding episode, the patient may need a repeat endoscopy. Job ID: [id number] DocumentID: [id number] Dictated Date: 05/17/2019 20:56:27 Manager Of Environmental Services Date: 05/18/2019 01:01:51 Dictated By: LEWIS LAO DO
== END 2019-05-17 16:38 | DRG 208 ==
LOC: ICU 09:24
PROVIDERS: ADMIT Internal Medicine; ATTEND Internal Medicine
PROC: 5A1945Z Respiratory Ventilation, 24-96 Consecutive Hours (ICD-10-PCS; principal; 2019-05-15)
PROC: 0BH17EZ Insertion of Endotracheal Airway into Trachea, Via Natural or Artificial Opening (ICD-10-PCS; 2019-05-15)
PROC: 0DB78ZX Excision of Stomach, Pylorus, Via Natural or Artificial Opening Endoscopic, Diagnostic (ICD-10-PCS; 2019-05-17)
PROC: 0DB68ZX Excision of Stomach, Via Natural or Artificial Opening Endoscopic, Diagnostic (ICD-10-PCS; 2019-05-17)
DX: J95.822 Acute and chronic postprocedural respiratory failure (principal); R06.89 Other abnormalities of breathing; E66.2 Morbid (severe) obesity with alveolar hypoventilation; Z68.42 Body mass index [BMI] 45.0-49.9, adult; N17.9 Acute kidney failure, unspecified; I12.9 Hypertensive chronic kidney disease with stage 1 through stage 4 chronic kidney disease, or unspecified chronic kidney disease; N18.4 Chronic kidney disease, stage 4 (severe); E87.2 Acidosis; K25.0 Acute gastric ulcer with hemorrhage; R31.0 Gross hematuria; K29.70 Gastritis, unspecified, without bleeding; I25.10 Atherosclerotic heart disease of native coronary artery without angina pectoris; J44.9 Chronic obstructive pulmonary disease, unspecified; E78.00 Pure hypercholesterolemia, unspecified; E11.40 Type 2 diabetes mellitus with diabetic neuropathy, unspecified; K21.9 Gastro-esophageal reflux disease without esophagitis; N40.0 Benign prostatic hyperplasia without lower urinary tract symptoms; K59.09 Other constipation; M19.91 Primary osteoarthritis, unspecified site; M54.9 Dorsalgia, unspecified; N13.9 Obstructive and reflux uropathy, unspecified; E87.5 Hyperkalemia; D64.9 Anemia, unspecified; D72.829 Elevated white blood cell count, unspecified; R79.9 Abnormal finding of blood chemistry, unspecified; Z95.1 Presence of aortocoronary bypass graft; Z79.84 Long term (current) use of oral hypoglycemic drugs
CPT/HCPCS: 36415; 36569; 36600; 71045; 76937; 80048; 80053; 81000; 82140; 82805; 82962; 83605; 83735; 83880; 84100; 84478; 85025; 86850; 86900; 86901; 86920; 87040; 87070; 87088; 87205; 93005; 94002; 94003; 94640; 94660; 94799

== ENCOUNTER 2019-06-18 09:44 | Inpatient (IN) | payer MEDICARE, OTHER ==
[~2019-06-18] VITALS: Ht 177.8 cm; Wt 126.2 kg
[~2019-06-18 09:44] MED LIST changes: +ASPI-983 PO; +CLOP75TA28 PO; +FAMO20TA5 PO; +FURO40TA4 PO; +GABA-488 PO; +GLIM4TAB PO; +LISI10TA2 PO; +METF-397 PO; +METO-333 PO; +MULT1TAB69 PO; +POTA20TA15 PO; +PRAV40TA2 PO
[2019-06-18] MEDS ORDERED: QUET50TA PO (11:08)
[2019-06-18] MEDS ORDERED: ENOX40DI13 SQ (11:08)
[2019-06-18] MEDS ORDERED: METO-333 PO (11:08)
[2019-06-18] MEDS ORDERED: SENN-141 PO (11:08)
[2019-06-18] MEDS ORDERED: SILD20TA14 PO (11:08)
[2019-06-18] MEDS ORDERED: DICL100G18 TP (11:08)
[2019-06-18] MEDS ORDERED: THEO100T16 PO (11:08)
[2019-06-18] MEDS ORDERED: INSU100V39 SQ (11:08)
[2019-06-18] MEDS ORDERED: AMLO10TA7 PO (11:08)
[2019-06-18] MEDS ORDERED: CIPR-225 PO (11:08)
[2019-06-18] MEDS ORDERED: ROFL500T PO (11:08)
[2019-06-18] MEDS ORDERED: HYDR-3812 PO (11:08)
[2019-06-18] MEDS ORDERED: ACET325T38 PO (11:08)
[2019-06-18] MEDS ORDERED: SULF1TAB35 PO (11:08)
[2019-06-18] MEDS ORDERED: NLX.4V IV (11:08)
[2019-06-18] MEDS ORDERED: INSU100I10 SQ (11:08)
[2019-06-18] MEDS ORDERED: IPRA3AMP31 NEB (11:08)
[2019-06-18] MEDS ORDERED: MULT-166 PO (11:08)
[2019-06-18] MEDS ORDERED: PANT40TA2 PO (11:08)
[2019-06-18] MEDS ORDERED: TAMS0.4C98 PO (11:08)
[2019-06-18] MEDS ORDERED: MUPI22OI2 TP (11:30)
[2019-06-18] MEDS ORDERED: ONDN4T PO (11:30)
--- NOTE | 2019-06-18 11:31 | NUR ---
UPDATED THE PATIENTS MED REC TO THE LIST OF MEDICATIONS FROM [facility]. IN THE PAPER WORK FOR [facility] THERE WERE TWO MEDICATION LISTS, ONE THAT WAS THE MAR AND THE OTHER WITH HANDWRITTEN YES OR NO ORDERS ON IT. THE MAR INCLUDED BACTROBAN TID X 7 DAYS START DATE 06-17-19 AND ZOFRAN PO PRN THAT WERE NOT ON THE OTHER LIST. I INCLUDED BOTH ON THE MED REC AT THIS TIME. THE [facility] DID NOT INCLUDE THE DUONEB ORDER THAT WAS ORDERED YES ON THE OTHER REPORT, I ALSO INCLUDED IT ON THE MED REC. ON THE HANDWRITTEN ORDERS THE IV PROTONIX WAS MARKED OUT AND CHANGED TO PO HOWEVER THE IV HAD BEEN BID AND ON THE [facility] THE NEW ORDER FOR PO STATES ONCE DAILY, I PUT IT ON THE MED REC ONE DAILY AT THIS TIME. I WILL UPDATE THE MED REC BACK TO THE LIST OF MEDICATIONS THE PATIENT WAS TAKING PRIOR TO ADMISSION TO [facility] AT A LATER DATE FOR PROPER DISCHARGE TO HOME ORDERS. Addendum: 06/21/19 at 1539 by NAUN HUERTA [facility] REMOVED NEW MEDICATIONS STARTED AT [facility]. I UPDATED THE MED REC TO THE LIST OF MEDICATIONS THAT WERE REPORTED UPON ADMISSION HERE AT [facility] ON 05-14-19 PRIOR TO TRANSFER TO [facility].
--- NOTE | 2019-06-18 12:20 | NUR ---
MARANDA BURNS admitted to room 230-1, with an admitting diagnosis of disuse myopathy, on 06/18/19 from [facility] via , accompanied by STAFF.MARANDA BURNS introduced to surroundings, call light, bed controls, phone, TV, temperature control, lights, meal times, smoking policy, visitor policy, side rail policy, bathrooms and showers. Patient Rights given to patient in the handbook. MARANDA BURNS verbalizes understanding that [facility] is not responsible for the loss or damage to any personal effects or valuables that are kept in the patients posession during their hospitalization. The Patient'S Care Plans were discussed with the PATIENT WELL Discharge Planning. MARANDA BURNS verbalizes understanding of Interdisciplinary Patient Education. Patient and/or family were informed about the Rapid Response Team and its purpose.
--- NOTE | 2019-06-18 13:06 | Physical Therapy Evaluation ---
PT Evaluation-General Medical Diagnosis Admission Date Jun 18, 2019 at 12:20 Medical Diagnosis: resp. failure, post back surgery Onset Date: May 20, 2019 Therapy Diagnosis Therapy Diagnosis: impaired mobility, strength, endurance, balance Height/Weight Height (Feet): 6 Height (Inches): 70.00 Weight (Pounds): 333 Weight (Ounces): 0.0 Referral Physician: Cintia Law DO Reason for Referral: Evaluation/Treatment Medical History Pertinent Medical History: CABG, CAD, DM, GERD, OA Additional Medical History obesity, renal failure, hyperkalemia, BPH, peripheral neuropathy, CHF, hyperlipidemia, DJD right knee Reviewed History: Yes Social History Home: Single Level Current Living Status: Alone Entry Into Home: Stairs Without Railing PT Steps Into Home: 2 Prior/Core FIM Prior Level of Function Therapy Code Descriptions/Definitions Functional [place] Measure: 0=Not Assessed/NA 4=Minimal Assistance 1=Total Assistance 5=Supervision or Setup 2=Maximal Assistance 6=Modified [place] 3=Moderate Assistance 7=Complete [place] Therapy Quality Codes: 6 Independent with activity with or without an assistive device 5 Patient requires set up or clean up by helper. Patient completes activity by themselves 4 Supervision or touching assist (CGA). [place] provide cues , steadying assist 3 The helper provides less than half the effort to complete the activity 2 The helper provides more than half the effort to complete the activity 1 Dependent. The helper does all the effort to complete an activity 7 Patient refused to complete or attempt activity 9 The patient did not perform the activity before the current illness or injury 88 Not attempted due to Medical conditions or safety concerns Functional Abilities and Goals: Independent: Patient completed the activities by him/herself, with or without an assistive device, with no assistance from a helper. Needed Some Help: Patient needed partial assistance from another person to complete activities. Dependent: A helper completed the activities for the patient. Unknown: Not Applicable: Bed Mobility: 7 Transfers (B,C,W/C) (FIM): 7 Gait: 7 Stairs: 7 Indoor Mobility (Ambulation): Independent Stairs: Independent PT Evaluation-Current Subjective Patient in bed pre tx, agrees to PT, has 5/10 pain in his back. Will be co- treating with OT after PT eval due to poor patient mobility, strength, poor standing balance, pain, fall risk. Pt/Family Goals to be independent at home Objective Patient Orientation: Person, Place, Situation ROM/Strength ROM Lower Extremities general lower extremity muscle tightness Strenght Lower Extremities RLE (hip flexion 3+/5, knee flexion 4-/5, knee extension 4-/5, dorsiflexion 3+/5), LLE (hip flexion 3-/5, knee flexion 3/5, knee extension 3+/5, dorsiflexion 0/5) Neuromuscular (Tone, Coordination, Reflexes) NT Sensory Vision: Functional Hearing: Functional Transfers Therapy Code Descriptions/Definitions Functional [place] Measure: 0=Not Assessed/NA 4=Minimal Assistance 1=Total Assistance 5=Supervision or Setup 2=Maximal Assistance 6=Modified [place] 3=Moderate Assistance 7=Complete [place] Therapy Quality Codes: 6 Independent with activity with or without an assistive device 5 Patient requires set up or clean up by helper. Patient completes activity by themselves 4 Supervision or touching assist (CGA). [place] provide cues , steadying assist 3 The helper provides less than half the effort to complete the activity 2 The helper provides more than half the effort to complete the activity 1 Dependent. The helper does all the effort to complete an activity 7 Patient refused to complete or attempt activity 9 The patient did not perform the activity before the current illness or injury 88 Not attempted due to Medical conditions or safety concerns Transfers (B, C, W/C) (FIM): 2 Scootin Rollin Roll Left to Right (QC): 4 Supine to/from Sit: 4 Sit to/from Stand: 2 bed t/f WC(FIM only if WC use): 2 Sit to Lying (QC): 3 Lying to Sitting/Side of Bed(Q: 3 Sit to Stand (QC): 2 Chair/Ezy-tu-Djnjs Xfer(QC): 2 Car Transfer (QC): 2 Patient performs bed mobility with CGA, supine <-> sit with min assist, sit <-> stand with max assist, transfers with max assist, car transfer max assist. Patient needs cues for hand placement and positioning. Patient very anxious about falling. Gait Does the Patient Walk?: No and Walking Goal IS indicated Mode of Locomotion: Wheelchair Anticipated Mode of Locomotion: Both Wheelchair Training Does the Pt Use a Wheelchair?: Yes Wheelchair (FIM): 1 Distance: 20' Wheelchair Level of Assist: 4 Type of Wheelchair: Manual Patient can propel a manual wheelchair 20' with min assist. He has trouble gripping the rim with enough strength to be able to push the wheel forward. Stairs If not tested on admit;explain Patient is non-ambulatory at this time. Balance Sitting Static: Normal Sitting Dynamic: Fair Standing Static: Poor Standing Dynamic: Poor Treatment Patient was toileted for a BM, needed assist with pants up and down, max assist for the whole process. Needs 2 people. Assessment/Needs Patient has impaired mobility, strength, endurance, balance. He is a high fall risk due to BLE weakness. Patient in wheelchair post tx in group therapy. Rehab Potential: Guarded PT Short Term Goals Short Term Goals Time Frame: Jun 25, 2019 Transfers (B,C,W/C) (FIM): 3 Gait (FIM): 1 Gait Distance Comment: 5' Gait Level of Assist: 3 Gait Assistive Device: FWW PT New Car Sales Manager Goals Detention Goals PT New Car Sales Manager Goals Time Frame: Jul 09, 2019 Transfers (B,C,W/C) (FIM): 4 Sit to Lying (QC): 4 Lying-Sitting on Side/Bed(QC): 4 Sit to Stand (QC): 3 Rollin Roll Left to Right (QC): 4 Chair/Thg-bl-[place] Xfer(QC): 3 Car Transfer (QC): 3 Gait (FIM): 1 Distance: 20' Walk 10 feet (QC): 3 Walk 10ft-Uneven Surface(QC): 3 Gait Level of Assist: 4 Gait Assistive Device: FWW Wheelchair (FIM): 5 Distance: 150' Wheelchair Level of Assist: 5 Wheel 50 feet with 2 turns (QC: 4 PT Plan Problem List Problem List: Activity Tolerance, Functional Strength, Safety, Balance, Gait, Transfer, Bed Mobility, ROM Treatment/Plan Treatment Plan: Continue Plan of Care Treatment Plan: Bed Mobility, Concurrent Therapy, Education, Functional Activity Leo, Functional Strength, Group Therapy, Gait, Safety, Therapeutic Exercise, Transfers Treatment Duration: Jul 09, 2019 Frequency: At least 5 of 7 days/Wk (IRF) Estimated Hrs Per Day: 1.5 hours per day Patient and/or Family Agrees t: Yes Safety Risks/Education Patient Education: Transfer Techniques, Correct Positioning, W/C Management, Safety Issues Teaching Recipient: Patient Teaching Methods: Demonstration, Discussion Response to Teaching: Reinforcement Needed Discharge Recommendations Plan Patient will perform bed mobility and transfer training, balance and endurance training, functional strengthening, gait training, and education, to improve functional mobility and independence at home. Therapy D/C Recommendations: Home w/ Family Support Time/GCodes Time In: 1220 Time Out: 1300 Total Billed Treatment Time: 30 Total Billed Treatment 1 visit EVM 10' FA 20' PT eval from [id number], OT eval from [id number], co-treat from [id number]. PT worked on bed mobility and transfers, toileting, wheelchair mobility, OT worked on cleaning, UE positioning, trunk balance. BRIDGETTE CAT PT Jun 18, 2019 13:06
[2019-06-18] MEDS ORDERED: NALOXONE 0.4 MG/ML 1 ML (NARCAN) VIAL IV PRN (13:15)
[2019-06-18] MEDS ORDERED: NON-FORMULARY MEDICATION 1 EA EA (Sennosides (Senna) 8.6 MG) PO PRN (13:15)
[2019-06-18] MEDS ORDERED: NON-FORMULARY MEDICATION 1 EA EA (Sildenafil Citrate (Sildenafil) 20 MG) PO SCH (13:15)
[2019-06-18] MEDS ORDERED: NON-FORMULARY MEDICATION 1 EA EA (Ondansetron HCl (Zofran) 4 MG) PO PRN (13:15)
[2019-06-18] MEDS ORDERED: NON-FORMULARY MEDICATION 1 EA EA (Hydrocodone/Acetaminophen (Hydrocodone-Acetamin 5-325 mg PO PRN (13:15)
--- NOTE | 2019-06-18 13:23 | PM&R H&P / Post Admit Assess ---
History of Present Illness HPI/Chief Complaint CC: Critical illness debility HPI: This is a 68-year-old white male clinic patient of Dr. 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 Received report from Dr. Montesinos at [facility] in [place]. Patient was admitted there after difficulty weaning off the ventilator after he was intubated after failed noninvasive ventilator support after he was transferred from [facility] after his spinal surgery to [facility]. He remained on the ventilator for 3 weeks has some vocal cord dysfunction due to the long intubation status and most recently having urinary retention after Alves catheter was discontinued and currently has Klebsiella UTI maintained on Bactrim and Cipro double coverage because of such a significant organism. He had some significant hallucinations last week but that has been resolved. Patient currently remains on 2 L by nasal cannula of oxygen receives nebulizer treatments of DuoNeb every 6 hours and uses his home CPAP machine. His prior level of functioning was independent of ADLs and ambulation. I reviewed all of his current medications and pharmacy informatics specialist here at the hospital has confirmed accuracy and all those have been continued. He does have a PICC line in his right upper arm. Upon review of the history and physical the following information was obtained: Past medical history: diabetes mellitus on oral therapy, obstructive sleep apnea, COPD with chronic respiratory failure, polycythemia due to chronic respiratory failure, tobacco use, chronic low back pain, peripheral neuropathy, PVD, CAD previous bypass surgery, thrombocytopenia, morbid obesity with hypoventilation syndrome, congestive heart failure with acute on chronic diastolic type with volume overload at admission to [facility], hyperlipidemia, hypertension, carpal tunnel syndrome, severe DJD of the right knee. He also has a history of SVT. Source: patient, RN/MD, old records Exam Limitations: no limitations Date Seen 06/18/19 Time Seen by a Provider: 13:00 Attending Physician Cintia Long Lisa A MD Referring Physician Date of Admission Jun 18, 2019 at 12:20 Home Medications & Allergies Home Medications Reviewed patient Home Medication Reconciliation performed by pharmacy medication reconciliations automatic equipment technician and/or nursing. Patients Allergies have been reviewed. Allergies Allergies Coded Allergies No Known Drug Allergies (Verified05/17/19) Past Ycqufpi-Ytgigl-Wxschn Hx Past Med/Social Hx: Reviewed Nursing Past Med/Soc Hx, Reviewed and Corrections made Patient Social History Employed/Student: retired Smoking Status: Current Everyday Smoker Immunizations Up To Date Tetanus Booster (TDap): More than 5yrs Past Medical History Surgeries: CABG, Orthopedic Appy, CTS b/l, Vasectomy, PVD right leg stent, Respiratory: COPD, Sleep Apnea Currently Using CPAP: Yes Currently Using BIPAP: No Cardiac: Chronic Edema/Swelling, Coronary Artery Disease, High Cholesterol, Hypertension, Peripheral Vascular Neurological: Neuropathy Genitourinary: Benign Prostatic Hyperpl, Bladder Infection Gastrointestinal: Gastroesophageal Reflux, Chronic Constipation Musculoskeletal: Degenerate Disk Disease, Arthritis, Chronic Back Pain Endocrine: Diabetes, Non-Insulin dep Adverse Reaction to Blood [place]: No Family History No Pertinent Family Hx Review of Systems Constitutional: see HPI, malaise, weakness EENTM: no symptoms reported Respiratory: dyspnea on exertion Cardiovascular: no symptoms reported Gastrointestinal: no symptoms reported Genitourinary: other (retention) Musculoskeletal: back pain Skin: no symptoms reported Psychiatric/Neurological: Anxiety, Depressed All Other Systems Reviewed Negative Unless Noted: Yes Physical Exam Exam Vital Signs Vital Signs Date Time Temp Pulse Resp B/P (MAP) Pulse Ox O2 Delivery O2 Flow Rate FiO2 06/18/19 15:28 92 Nasal Cannula 2.00 Capillary Refill : General Appearance: No Apparent Distress, WD/WN, Chronically ill, Obese HEENT: PERRL/EOMI, Normal ENT Inspection, Pharynx Normal, Moist Mucous Membranes Neck: Full Range of Motion, Normal Inspection, Non Tender, Supple Respiratory: Chest Non Tender, Lungs Clear, Normal Breath Sounds, No Accessory Muscle Use, No Respiratory Distress Cardiovascular: Regular Rate, Rhythm, No Edema, No Gallop, No JVD, No Murmur Gastrointestinal: Normal Bowel Sounds, No Organomegaly, No Pulsatile Mass, Non Tender, Soft Back: Normal Inspection, No CVA Tenderness, Decreased Range of Motion Extremity: Normal Capillary Refill, Normal Inspection, Normal Range of Motion, Non Tender, No Calf Tenderness, No Pedal Edema Neurologic/Psychiatric: Alert, Oriented x3, No Motor/Sensory Deficits, horse trader II- XII Norm as Tested, Depressed Affect Skin: Normal Color, Warm/Dry Lymphatic: No Adenopathy Results Results/Procedures Labs Patient resulted labs reviewed. Assessment/Plan Assessment and Plan Assess & Plan/Chief Complaint Assessment: (1) Myopathy (2) COPD (chronic obstructive pulmonary disease) (3) Respiratory failure, acute and chronic (4) Polycythemia (5) Tobacco use (6) Back pain (7) Neuropathy (8) PVD (peripheral vascular disease) (9) Hx of CABG (10) Obesity hypoventilation syndrome (11) Hypertension (12) Renal insufficiency (13) Hyperlipemia (14) Arthritis of right knee (15) Hx of supraventricular tachycardia (16) Obesity (17) Diabetes mellitus (18) SIDNEY on CPAP (19) CO2 narcosis (20) CAD (coronary artery disease) (21) Status post lumbar spine surgery for decompression of spinal cord (22) UTI Klebsiella on Bactrim and Cipro Plan: Maude Nayak, Anabelle, Rachel are appreciated Abx Check labs in am IRF protocol Pain control Monitor closely (1) Myopathy (2) COPD (chronic obstructive pulmonary disease) (3) Respiratory failure, acute and chronic (4) Polycythemia (5) Tobacco use (6) Back pain (7) Neuropathy (8) PVD (peripheral vascular disease) (9) Hx of CABG (10) Obesity hypoventilation syndrome (11) Hypertension (12) Renal insufficiency (13) Hyperlipemia (14) Arthritis of right knee (15) Hx of supraventricular tachycardia (16) Obesity (17) Diabetes mellitus (18) SIDNEY on CPAP (19) CO2 narcosis (20) CAD (coronary artery disease) (21) Status post lumbar spine surgery for decompression of spinal cord (22) UTI due to Klebsiella species (23) Urinary retention (24) BPH (benign prostatic hyperplasia) (25) Decubitus ulcer Post Admission Physician Asses Date seen by provider: Jun 18, 2019 Time seen by provider: 13:00 Admisison Dx: (1) Myopathy The preadmission screen agrees with the post admission assessment that the patient is a good candidate for inpatient rehabilitation. The patient will have a comprehensive program of inpatient rehabilitation with a goal of maximizing level of functional independence prior to discharge home with family. The patient will have PT/OT ninety minutes per day, each discipline, five days a week for gait, strengthening, conditioning, balance, ADLs, any patient/family/caregiver training as necessary. Speech therapy to do cognitive assessment and treat as indicated. Rehabilitation nursing to assist with bowel, bladder, skin, wound care, medication administration, pain management. Bottom Saw Operator to assist with discharge planning, community reentry. SCD's for DVT prophylaxis. He appears to be well motivated to participate in three hours of therapy a day. He should be able to tolerate three hours of therapy a day from a medical standpoint. He should benefit from the three hours of therapy a day. He has a reasonable discharge plan, reasonable discharge rehabilitation goals and a supportive family. He has various comorbidities that need to be closely monitored with medications and treatments adjusted on a daily basis as needed. These include: see list Barriers to discharge for this patient who had been independent prior to this are for him to be modified independent to supervision for ADLs and mobility skills prior to discharge home with family, so as to lessen the burden of the caregivers. Risks for this patient include: 1. Fall 2. Fracture 3. DVT 4. Pulmonary embolism 5. Wound infection 6. Skin breakdown 7. Contractures 8. Poorly controlled pain 9. Urinary retention 10. UTI 11. Respiratory infection 12. Aspiration Estimated Length of Stay: 7 days Prognosis: Rehab prognosis appears good for goal of discharge home with family modified independent to supervision for ADLs and mobility skills. CINTIA LONG DO Jun 18, 2019 13:23
--- NOTE | 2019-06-18 13:27 | Occupational Therapy Eval ---
OT Evaluation-General/PLF Medical Diagnosis Admission Date Jun 18, 2019 at 12:20 Medical Diagnosis: respiratory failure Onset Date: May 13, 2019 Therapy Diagnosis Therapy Diagnosis: impaired self care skills Height/Weight Height (Feet): 6 Height (Inches): 70.00 Weight (Pounds): 333 Weight (Ounces): 0.0 Precautions Comments back precautions Referral Physician: Ani Medical History Pertinent Medical History: CABG, CAD, DM, GERD, OA Additional Medical History renal failure, hyperkalemia, BPH, peripheral neuropathy, CHF, hyperlipidemia, Carpal tunnel, DJD right knee. Current History Pt had lumbar surgery on 05/13/19 with post op respiratory failure. Pt was transferred to [facility] where he received care until transfer to ARU this date. Reviewed History: Yes Social History Home: Single Level Current Living Status: Alone Entry Into Home: Stairs Without Railing Steps Into Home: 2 ADL-Prior Level of Function Therapy Code Descriptions/Definitions Functional [place] Measure: 0=Not Assessed/NA 4=Minimal Assistance 1=Total Assistance 5=Supervision or Setup 2=Maximal Assistance 6=Modified [place] 3=Moderate Assistance 7=Complete [place] Therapy Quality Codes: 6 Independent with activity with or without an assistive device 5 Patient requires set up or clean up by helper. Patient completes activity by themselves 4 Supervision or touching assist (CGA). Welches provide cues , steadying assist 3 The helper provides less than half the effort to complete the activity 2 The helper provides more than half the effort to complete the activity 1 Dependent. The helper does all the effort to complete an activity 7 Patient refused to complete or attempt activity 9 The patient did not perform the activity before the current illness or injury 88 Not attempted due to Medical conditions or safety concerns Functional Abilities and Goals: Independent: Patient completed the activities by him/herself, with or without an assistive device, with no assistance from a helper. Needed Some Help: Patient needed partial assistance from another person to complete activities. Dependent: A helper completed the activities for the patient. Unknown: Not Applicable: ADL PLOF Comments Pt reports being independent prior to surgery. Self Care: Independent Functional Cognition: Independent DME/Equipment: Tub/Shower Drive Self: Yes OT Current Status Subjective Pt admitted from outside facility, agreeable to therapy. 5/10 back pain Mental Status/Objective Patient Orientation: Person, Place, Situation Attachments: Oxygen Current Glasses/Contacts: No Hearing Aids: No Dentures/Partials: Yes Hand Dominance: Left Upper Extremity ROM decreased shoulder ROM secondary to pain. Upper Extremity Coordination Fair ADL-Treatment ADL-Current Co-treat with PT after initial evaluation secondary to impaired mobility, strength, activity tolerance and need for skilled therapists. Pt transferred w/c <-> toilet with max assist. Assist required for toileting hygiene and clothing management. Assist of 2 for toileting, one to assist with standing and one to assist with toileting tasks. Pt fatigues with activity and requires seated rest break. Pt able to propel w/c to commons area with assist. Pt present for group therapy after session. Co-treat with PT. OT focusing on ADL completion, UE management, and safety. PT focusing on transfers, LE management and mobility Toileting (FIM): 1 Toileting Hygiene (QC): 1 Toilet/Commode Transfer (FIM): 2 Toilet Transfer (QC): 2 Education OT Patient Education: Rehab process Teaching Recipient: Patient Teaching Methods: Discussion Response to Teaching: Verbalize Understanding OT Short Term Goals Short Term Goals Time Frame: Jun 25, 2019 Grooming(FIM): 5 Bathing(FIM): 3 Lower Body Dressing(FIM): 3 Toileting(FIM): 3 Toilet/Commode Transfer(FIM): 3 Additional Short Term Goals: 1-Demonstrate ADL Tasks, 2-Verbalize Understanding, 3-ImproveStrength/Leo 1=Demonstrate adherence to instructed precautions during ADL tasks. 2=Patient will verbalize/demonstrate understanding of assistive devices/modifications for ADL. 3=Patient will improve strength/tolerance for activity to enable patient to perform ADL's. OT Retirement Goals Tool Maker Apprentice Goals Time Frame: Jul 09, 2019 Eating (FIM): 6 Eating (QC): 6 Groomin Oral Hygiene (QC): 6 Bathing(FIM): 5 Shower/Bathe Self (QC): 5 Upper Body Dressing(FIM): 6 Upper Body Dressing (QC): 6 Lower Body Dressing(FIM): 5 Lower Body Dressing (QC): 5 On/Off Footwear (QC): 5 Toileting(FIM): 6 Toileting Hygiene (QC): 6 Toilet/Commode Transfer(FIM): 6 Toilet/Commode Transfer (QC): 6 Shower Transfer(FIM): 5 Additional Goals: 1-Demonstrate ADL Tasks, 2-Verbalize Understanding, 3- ImproveStrength/Leo 1=Demonstrate adherence to instructed precautions during ADL tasks. 2=Patient will verbalize/demonstrate understanding of assistive d evices/modifications for ADL. 3=Patient will improve strength/tolerance for activity to enable patient to perform ADL's. OT Education/Plan Problem List/Assessment Assessment: Decreased Activ Tolerance, Decreased UE Strength, Dependent Transfers, Impaired Funct Balance, Impaired I ADL's, Impaired Self-Care Skills Pt admitted secondary to respiratory failure following back surgery. Pt demonstrates decreased activity tolerance, mobility, strength, and ADL functioni ng. Pt to benefit from skilled OT intervention for ADL training, transfers, strengthening, adaptive equipment training, and home safety education to increase level of independence and allow safe discharge. Discharge Recommendations Plan/Recommendations: Continue POC Treatment Plan/Plan of Care Treatment,Training & Education: Yes Patient would benefit from OT for education, treatment and training to promote independence in ADL's, mobility, safety and/or upper extremity function for ADL's. Plan of Care: ADL Retraining, Functional Mobility, Group Exercise/Act as Ind, UE Funct Exercise/Act Treatment Duration: Jul 09, 2019 Frequency: At least 5 of 7 days/Wk (IRF) Estimated Hrs Per Day: 1.5 hours per day Agreement: Yes Rehab Potential: Fair Time/GCodes Start Time: 12:30 Stop Time: 13:00 Total Time Billed (hr/min): 30 Billed Treatment Time 1 visit, EVM(10minutes), ADL(20minutes) Eval [id number]; [place] with PT [id number] FRED NEIL OT Jun 18, 2019 13:27
[2019-06-18] MEDS: ONDANSETRON 4 MG (ZOFRAN) ORAL DISSOLVE TAB PO PRN (13:50)
[2019-06-18] MEDS: ROFLUMILAST 500 MCG TAB (DALIRESP) PO SCH (14:32)
[2019-06-18] MEDS: HYDROcodone/APAP 5 MG/325 MG (LORTAB) TAB PO PRN ×2 (14:33→20:50)
--- NOTE | 2019-06-18 15:00 | NUR ---
THIS RN ASSESSED AREA OF CONCERN RELATING TO PATIENT'S APPROXIMATELY 1 MONTH OLD SURGICAL INCISION. INCISION SITE IS MACERATED WITH OPEN WITH CLEAR,ODORLESS THIN DRAINAGE. SITE IS NOT RED OR WARM TO TOUCH. NOTIFIED DR. LONG AT THIS TIME. STATES TO CONSULT DR. QUINTERO. WILL CARRY OUT ORDER AND CONTINUE TO MONITOR.
[2019-06-18] MEDS: SILDENAFIL 20 MG (REVATIO) TAB NON-FORMULARY PO SCH ×2 (15:19→21:54)
--- NOTE | 2019-06-18 15:23 | Occupational Ther Daily Note ---
OT Current Status-Daily Note Subjective Pt in bed, agrees to therapy. Reports back pain, but does not rate. Mental Status/Objective Therapy Code Descriptions/Definitions Functional [place] Measure: 0=Not Assessed/NA 4=Minimal Assistance 1=Total Assistance 5=Supervision or Setup 2=Maximal Assistance 6=Modified [place] 3=Moderate Assistance 7=Complete [place] Attachments: Oxygen ADL-Treatment Pt agreeable to sponge bath and requests to wash hair. Supine to sit with moderate assistance. Sat EOB with SBA for balance during ADLs. Pt doffed shirt with minimal assistance. Upper body bathing completed with SBA. Assist required for lower body bathing. Don pullover shirt with min assist. Assisted pt wash hair using shampoo cap. Pt able to comb hair with SBA. Pt brushed teeth with SBA. Pt has tremors in bilateral UE impacting coordination. Pt states this is not new and his physician is aware. Pt sit to supine with assist for LE. Assist to scoot to HOB. Pt resting in bed with needs met after session. Therapy Code Descriptions/Definitions Functional [place] Measure: 0=Not Assessed/NA 4=Minimal Assistance 1=Total Assistance 5=Supervision or Setup 2=Maximal Assistance 6=Modified [place] 3=Moderate Assistance 7=Complete [place] Therapy Quality Codes: 6 Independent with activity with or without an assistive device 5 Patient requires set up or clean up by helper. Patient completes activity by themselves 4 Supervision or touching assist (CGA). [place] provide cues , steadying assist 3 The helper provides less than half the effort to complete the activity 2 The helper provides more than half the effort to complete the activity 1 Dependent. The helper does all the effort to complete an activity 7 Patient refused to complete or attempt activity 9 The patient did not perform the activity before the current illness or inj ury 88 Not attempted due to Medical conditions or safety concerns Eating (FIM): 5 (set up) Eating (QC): 5 Grooming (FIM): 5 Oral Hygiene (QC): 4 Bathing (FIM): 2 Bathing Location: L Arm, R Arm, Chest, Abdomen Shower/Bathe Self (QC): 2 Upper Body (FIM): 4 Upper Body Dressing (QC): 3 Lower Body Dressing (FIM): 1 (will need adaptive equipment training in future sessions) Lower Body Dressing (QC): 1 On/Off Footwear (QC): 1 (total assist to doff/don socks.) Shower Transfer(FIM): 0 OT Short Term Goals Short Term Goals Time Frame: Jun 25, 2019 Grooming(FIM): 5 Bathing(FIM): 3 Lower Body Dressing(FIM): 3 Toileting(FIM): 3 Transfers (B,C,W/C) (FIM): 3 Toilet/Commode Transfer(FIM): 3 Additional Short Term Goals: 1-Demonstrate ADL Tasks, 2-Verbalize Understanding, 3-ImproveStrength/Leo 1=Demonstrate adherence to instructed precautions during ADL tasks. 2=Patient will verbalize/demonstrate understanding of assistive d evices/modifications for ADL. 3=Patient will improve strength/tolerance for activity to enable patient to perform ADL's. OT Yarn Texture Machine Operator Goals Yarn Texture Machine Operator Goals Time Frame: Jul 09, 2019 Eating (FIM): 6 Eating (QC): 6 Groomin Oral Hygiene (QC): 6 Bathing(FIM): 5 Shower/Bathe Self (QC): 5 Upper Body Dressing(FIM): 6 Upper Body Dressing (QC): 6 Lower Body Dressing(FIM): 5 Lower Body Dressing (QC): 5 On/Off Footwear (QC): 5 Toileting(FIM): 6 Toileting Hygiene (QC): 6 Toilet/Commode Transfer(FIM): 6 Toilet/Commode Transfer (QC): 6 Shower Transfer(FIM): 5 Additional Goals: 1-Demonstrate ADL Tasks, 2-Verbalize Understanding, 3- ImproveStrength/Leo 1=Demonstrate adherence to instructed precautions during ADL tasks. 2=Patient will verbalize/demonstrate understanding of assistive devices/modifications for ADL. 3=Patient will improve strength/tolerance for activity to enable patient to perform ADL's. OT Education/Plan Discharge Recommendations Plan/Recommendations: Continue POC Treatment Plan/Plan of Care Patient would benefit from OT for education, treatment and training to promote independence in ADL's, mobility, safety and/or upper extremity function for ADL's. Plan of Care: ADL Retraining, Functional Mobility, Group Exercise/Act as Ind, UE Funct Exercise/Act Treatment Duration: Jul 09, 2019 Frequency: At least 5 of 7 days/Wk (IRF) Estimated Hrs Per Day: 1.5 hours per day Agreement: Yes Rehab Potential: Fair Time/GCodes Start Time: 14:25 Stop Time: 15:05 Total Time Billed (hr/min): 40 Billed Treatment Time 1 visit, ADLx3(40minutes) FRED NEIL OT Jun 18, 2019 15:23
[2019-06-18] MEDS: RT-ALBUTEROL/IPRATROPIUM 3 ML (DUONEB) VIAL INH SCH ×2 (15:27→19:51)
[2019-06-18] MEDS ORDERED: INSULIN LISPRO 10 UNIT SQ SCH (16:00)
--- NOTE | 2019-06-18 16:00 | NUR ---
NOTIFIED DR. QUINTERO OF CONSULT AT THIS TIME. STATES HE WILL ROUND ON PATIENT AROUND 5:30 OR [address] WILL AWAIT [address] QUINTERO AND CONTINUE TO MONITOR.
--- NOTE | 2019-06-18 16:01 | Therapy Group Daily Note ---
Therapy Daily Group Note Patient Education Topic Other List Below (ARU expectations/description) Exercises LE Seated Exercise, UE Exercise Session Ratio (pt:therapist): 4:1 Goal of Session: Education on ARU Expectations, UE/LE Strengthing Goal Met for this Session: Yes Pt Benefit of Group: Contributions to Others, Increased Functional Strength, Improved Cognition, Recognition of Peers, Socialization Other/Notes Pt. participated in group PT OT session this date. Pt. transported via w/c to and from group. Pt. was pleasant, introduced self and participated in pt. lead exercises from illustrated exercise cards. Pts. rolled large foam dice to determine the # of reps the exercise they demonstrated would require. Pt's were jovial sharing their names, home town as well as their favorite refreshing drink. ARU education was covered with regard to expectations , schedule, 3 hr requirement and goals. Pt in room after group, lying in bed. Call light/phone in reach. All needs met in room. Start Time: 12:45 Stop Time: 14:00 Total Billed Treatment Time: 75 Total Billed Treatment 1-GRP AMANDA WEINER Jun 18, 2019 16:01
--- NOTE | 2019-06-18 16:12 | Pulmonary Consultation ---
History of Present Illness History of Present Illness Date of Consultation 06/18/19 16:11 Time Seen by Provider: 08:23 Date of Admission History of Present Illness 68yo with hx of obesity, extended hospitalization secondary to critical illness. Pt presented to rehab unit from [facility] in [place]. Pt went to [facility] secondary to difficult to wean vent. Pt was on vent for 3 wks.I am consulted for pulmonary management. Pt is requiring 2 liters NC. Allergies and Home Medications Allergies Coded Allergies: No Known Drug Allergies (Verified , 05/17/19) Home Medications Aspirin 81 Mg Tablet.dr, 81 MG PO DAILY, (Reported) Clopidogrel Bisulfate 75 Mg Tablet, 75 MG PO DAILY, (Reported) Famotidine 20 Mg Tablet, 20 MG PO BID, (Reported) Furosemide 40 Mg Tablet, 40 MG PO DAILY PRN for SWELLING, (Reported) Gabapentin 300 Mg Capsule, 300 MG PO DAILY, (Reported) Gabapentin 300 Mg Capsule, 600 MG PO HS, (Reported) Glimepiride 4 Mg Tablet, 4 MG PO BID, (Reported) Lisinopril 10 Mg Tablet, 10 MG PO DAILY, (Reported) Metformin HCl 500 Mg Tablet, 1,000 MG PO BID, (Reported) Metoprolol Tartrate 25 Mg Tablet, 12.5 MG PO BID, (Reported) TAKES 1/2 (25MG) TABLET Multivitamin with Minerals 1 Each Tablet, 1 TAB PO DAILY, (Reported) Potassium Chloride 20 Meq Tab.er.prt, 20 MEQ PO DAILY PRN for WHEN TAKING FUROSEMIDE, (Reported) Pravastatin Sodium 40 Mg Tablet, 40 MG PO DAILY, (Reported) Past Xqrjtca-Jvajex-Qvwpls Hx Immunizations Up To Date Tetanus Booster (TDap): More than 5yrs Past Medical History Surgeries: Yes (recent back surgery) CABG Respiratory: Yes (history of CO2 narcosis) Coronary Artery Disease, High Cholesterol, Hypertension Neuropathy Benign Prostatic Hyperpl Gastroesophageal Reflux, Chronic Constipation Arthritis, Chronic Back Pain Diabetes, Non-Insulin dep Adverse Reaction/Blood Tranf: No Family Medical History No Pertinent Family Hx Review of Systems Time Seen by Provider: 08:26 Sepsis Event Evaluation Height, Weight, BMI Height: 6'70.00" Weight: 333lbs. 0.0oz. 151.066411ko; 10.5 BMI Method:Stated Exam Exam Vital Signs Date Time Temp Pulse Resp B/P (MAP) Pulse Ox O2 Delivery O2 Flow Rate FiO2 06/18/19 15:28 92 Nasal Cannula 2.00 Height & Weight Height: 6'70.00" Weight: 333lbs. 0.0oz. 151.334309ss; 10.5 BMI Method:Stated General Appearance: No Apparent Distress, WD/WN, Chronically ill, Obese HEENT: PERRL/EOMI, Pharynx Normal Neck: Full Range of Motion, Non Tender Respiratory: Chest Non Tender, No Accessory Muscle Use, No Respiratory Distress, Crackles, Decreased Breath Sounds Cardiovascular: Regular Rate, Rhythm Gastrointestinal: non tender, soft Extremity: Normal Capillary Refill, Pedal Edema Neurologic/Psychiatric: Alert, Oriented x3 Skin: Normal Color, Warm/Dry Lymphatic: No Adenopathy Assessment/Plan Assessment/Plan Hypoxia probably secondary to COPD -Monitor Dehiscence of lumbar surgical wound -Wound care following Morbid obesity with OHS Dural leak with meningeal-cutaneous fistula. Anemia -Monitor DM Tobacco use Debility ANIYA DUDLEY DO Jun 18, 2019 16:12
[2019-06-18] MEDS ORDERED: LIDOCAINE UROJET 2% GEL 10 ML PKG TOP ONE (16:30)
[2019-06-18] MEDS ORDERED: LIDOCAINE UROJET 2% GEL 10 ML PKG ONE (16:46)
[2019-06-18 16:51] LABS: BASOPHILS % (AUTO) 0 % (0-10); EOSINOPHILS # (AUTO) 0.1 10^3/uL (0.0-0.3); EOSINOPHILS % (AUTO) 1 % (0-10); HEMATOCRIT 30 % (40-54); HEMOGLOBIN 9.2 G/DL (13.3-17.7); LYMPHOCYTES # (AUTO) 0.9 X 10^3 (1.0-4.0); LYMPHOCYTES % (AUTO) 12 % (12-44); MEAN CORPUSCULAR HEMOGLOBIN 29 PG (25-34); MEAN CORPUSCULAR HGB CONC 31 G/DL (32-36); MEAN CORPUSCULAR VOLUME 92 FL (80-99); MONOCYTES % (AUTO) 12 % (0-12); NEUTROPHILS % (AUTO) 74 % (42-75); PLATELET COUNT 200 10^3/uL (130-400); WHITE BLOOD COUNT 8.1 10^3/uL (4.3-11.0)
--- NOTE | 2019-06-18 16:57 | ST Cognitive Linguistic Eval ---
Speech Evaluation-General Medical Diagnosis respiratory failure Onset Date: May 13, 2019 Therapy Diagnosis Therapy Diagnosis: Cognitive-communication Precautions Precautions: Aspiration Precautions/Isolations: Fall Prevention, Standard Precautions, Pressure Ulcer Medical History Pertinent Medical History: CABG, CAD, DM, GERD, OA Reviewed History: Yes Social History Current Living Status: Alone Speech PLF-Current Status Prior Level of Function The patient lived alone and was independent for most of his daily needs. Subjective The patient was pleasant and cooperative with the cognitive evaluation completed at bedside. Language Eval: Auditory Comprehends Simple Yes/No Ques: Functional Indent/Objects Multiple Baumann: Functional Ident/Pics in Multiple Baumann: Functional Follows 1-Step Commands: Functional Follows Complex Directions: Functional Follows General Conversations: Functional Language Eval: Verbal Language Completes Spontaneous Greeting: Functional Produces Auto, Serial Info: Functional Imitates Simple Words/Phrases: Functional Word Finding: Functional Requests Basic Needs: Functional States Basic Personal Info: Functional Expresses Complex Ideas: Functional Objective Cognitive Domain Attention: WNL Memory: WNL Problem Solving: Functional Executive Functions: WNL Visuospatial Skills: WNL Composite Severity Rating: WNL Clock Drawing Severity Rating: WNL Objective Formal/Standardized Tests [facility] Status ([facility]) Results Patient's results are 27/30 which falls in the normal range of function Oral Motor/Speech Production Patient has some noted vocal deficits from being intubated for several weeks. Speech is understandable. Impression The patient is a pleasant 68 year old man who was admitted to the ARU for strengthening s/p hospitalization over the past several weeks. The patient is within normal limits for cognitive function. He does exhibit decreased vocal production from weeks on the vent. He also has been on a modified diet due to aspiration. At this time he will be on a regular diet. Communication/Social Cognition Comprehension: 7 Expression: 7 Social Interaction: 7 Problem Solvin Memory: 7 Speech Patient Assess Expression of Ideas/Wants: Expression (4) Understanding Verbal Content: Understands (4) Brief Interview-Mental Status: Yes Repetition of Three Words: Three (3) Temporal Orientation: Year: Correct (3) Temporal Orientation: Month: Accurate within 5 days(2) Temporal Orientation: Day: Correct (1) Recall : Wear to say "Sock": Yes,after cueing (1) Recall : Color: Yes, after cueing (1) Recall : Bed: Yes, no cue required (2) Memory/Recall Ability: Current season, That he or she is in a hsp/hsp unit Speech-Plan Patient/Family Goals Patient/Family Goals: The patient plans on returning home post rehab. Treatment Plan Speech Therapy Treatment Plan: Discontinue ST The patient will be assessed for his least restrictive diet if indicated after the weekend status of oral intake. Treatment Duration: Jun 18, 2019 Frequency: 1 time per week Estimated Hrs Per Day: .25 hour per day Rehab Potential: Fair Barriers to Learning: The patient has a complex medical status Pt/Family Agrees to Plan: Yes Safety Risks/Education Teaching Recipient: Patient Teaching Methods: Discussion Response to Teaching: Verbalize Understanding Education Topics Provided: Safety within his room and with oral intake. Time Speech Therapy Time In: 16:45 Speech Therapy Time Out: 17:00 Total Billed Time: 15 Billed Treatment Time 1, GERALDINE Bar Jun 18, 2019 16:57
[2019-06-18] MEDS ORDERED: NON-FORMULARY MEDICATION 1 EA EA (Enoxaparin Sodium (Lovenox) 40 MG) SQ SCH (17:00)
--- NOTE | 2019-06-18 17:00 | NUR ---
DR. QUINTERO HERE TO SEE PATIENT AT THIS TIME. PATIENT TURNED TO SIDE AND SURGICAL WOUND EXAMINED. NOTED CLEAR COLOR OF DRAINAGE AND THIN CONSISTENCY AND EXPRESSED CONCERN FOR CEREBRAL SPINAL FLUID LEAK. PH LITMUS PAPER OBTAINED AND THE RESULTS READ 7 WHICH STATED INDICATED THAT WOUND DRAINAGE WAS INDEED CSF. AT THIS TIME DR. QUINTERO CURRENTLY CALLING . DR. LONG STATES THAT SHE WILL CALL PT'S SURGEON DR. PEREIRA TO NOTIFY HIM. DR. QUINTERO STEPS BACK INTO ROOM AND ORDERS THIS RN TO DO DRY GAUZE DRESSING AND CHANGE q4HRS AND PRN. WILL CARRY OUT ORDERS AND CONTINUE TO MONITOR.
[2019-06-18 17:13] LABS: ALBUMIN 3.3 GM/DL (3.2-4.5); BILIRUBIN,TOTAL 0.3 MG/DL (0.1-1.0); CALCIUM 9.1 MG/DL (8.5-10.1); CREATININE SERUM 1.37 MG/DL (0.60-1.30); MAGNESIUM 1.1 MG/DL (1.8-2.4); PHOSPHORUS 1.9 MG/DL (2.3-4.7); POTASSIUM 4.5 MMOL/L (3.6-5.0); TOTAL PROTEIN 7.1 GM/DL (6.4-8.2)
[2019-06-18 18:00] VITALS: BP 158/62
[2019-06-18] MEDS: inSUlin ASPART (NovoLOG) 1 UNIT/0.01 ML (CHARGE PER UNIT) SC SCH ×2 (18:43→21:00)
[2019-06-18] MEDS: BETHANECHOL 25 MG (URECHOLINE) TAB PO SCH ×2 (18:43→20:47)
[2019-06-18] MEDS: TRIM/SULFAMETH 160/800 (SEPTRA DS) TAB PO SCH (18:43)
[2019-06-18] MEDS: DICLOFENAC 1% GEL 100 GM (VOLTAREN) TUBE TOP SCH ×2 (18:44→20:49)
[2019-06-18] MEDS: ENOXAPARIN 40 MG/0.4 ML (LOVENOX) SYR SC SCH (18:44)
[2019-06-18] MEDS ORDERED: ALTEPLASE 2 MG (CATHFLO) IV ONE (18:45)
[2019-06-18] MEDS ORDERED: SODIUM PHOSPHATE INJ 30 MM in NS (IVPB) 250 ML IV NR (18:45)
--- NOTE | 2019-06-18 19:02 | Wound Care Assessment ---
Wound Care Assessment Date Seen by Provider: Jun 18, 2019 Time Seen by Provider: 17:15 Chief Complaint Lumbar wound. HPI The patient is a 68 year old male who is one month s/p lumbar spine operation. The patient denies fever or chills or significant pain in the incision. He was transferred to ARU from [facility] today. He is diabetic with most recent blood glucose 230. He is able to walk, but just. I have been asked to see because of draining lumbar wound with slough present. Past Medical History: Admits Diabetes Type II, Admits Heart Disease (CAD, CHF, SVT), Admits Peripheral Artery Disease (Multiple BLE interventions. Additionally has Sleep apnea and COPD.) Smoking Status: Current Everyday Smoker Exam Vital Signs Date Time Temp Pulse Resp B/P (MAP) Pulse Ox O2 Delivery O2 Flow Rate FiO2 06/18/19 18:00 99.3 86 18 158/62 (94) 95 Nasal Cannula 3.00 Capillary Refill : General Appearance: no apparent distress HEENT: normal ENT inspection Neck: non-tender; No carotid bruit, No lymphadenopathy (R), No lymphadenopathy (L), No thyromegaly Cardiovascular: regular rate, rhythm, no gallop, no murmur Respiratory: no respiratory distress, rhonchi (Bilateral); No wheezing Gastrointestinal: normal bowel sounds, non tender; No hepatomegaly, No spleenomegaly Back: other (Large dehisced wound with a large amout of thin, clear, watery fluid draining from it. The upper part of the wound is where the slough was noted and the drainage was coming from.) Extremities: normal inspection, pedal edema Neurologic/Psychiatric: alert, oriented x 3 Results Laboratory Tests 06/18/19 13:15: Glucometer 203H 06/18/19 15:45: Glucometer 228H 06/18/19 16:42: White Blood Count 8.1, Red Blood Count 3.21L, Hemoglobin 9.2L, Hematocrit 30L, Mean Corpuscular Volume 92, Mean Corpuscular Hemoglobin 29, Mean Corpuscular Hemoglobin Concent 31L, Red Cell Distribution Width 17.0H, Platelet Count 200, Mean Platelet Volume 11.0H, Neutrophils (%) (Auto) 74, Lymphocytes (%) (Auto) 12, Monocytes (%) (Auto) 12, Eosinophils (%) (Auto) 1, Basophils (%) (Auto) 0, Neutrophils # (Auto) 6.0, Lymphocytes # (Auto) 0.9L, Monocytes # (Auto) 1.0, Eosinophils # (Auto) 0.1, Basophils # (Auto) 0.0, Sodium Level 131L, Potassium Level 4.5, Chloride Level 96L, Carbon Dioxide Level 27, Anion Gap 8, Blood Urea Nitrogen 27H, Creatinine 1.37H, Estimat Glomerular Filtration Rate 52, BUN/Creatinine Ratio 20, Glucose Level 214H, Lactic Acid Level 1.06, Calcium Level 9.1, Corrected Calcium 9.7, Phosphorus Level 1.9L, Magnesium Level 1.1L, Total Bilirubin 0.3, Aspartate Amino Transf (AST/SGOT) 38H, Alanine Aminotransferase (ALT/SGPT) 19, Alkaline Phosphatase 109, Total Protein 7.1, Albumin 3.3 Assessment/Plan/Dx 1. Dehiscence of surgical wound, lumbar, s/p spinal operation. 2. Dural leak with meningeal-cutaneous fistula. 3. Diabetes, with poor glucose control. 4. Morbid obesity. 5. Tobacco abuse. 6. Disuse myopathy. 7. Congestive heart failure. 8. Recent episode of respiratory failure. Plan: Dry dressings ordered to control drainage. Dr. Law is notified of above findings. The patient is encouraged to stay in bed until seen by operating surgeon. SOLEDAD QUINTERO MD Jun 18, 2019 19:02
--- NOTE | 2019-06-18 19:12 | Diagnostic Imaging Report ---
EXAMINATION: Portable erect AP chest at 6:20 p.m. INDICATION: Respiratory distress. FINDINGS: The heart is enlarged, but the heart does seem less prominent than noted on the prior exam of 05/17/2019. However, there still seems to be an element of mild pulmonary congestion present. There is no confluent pneumonia identified nor is there any sign of a significant pleural effusion, and the lungs do seem somewhat better aerated. The mediastinum is not widened. The osseous structures are intact. The sternotomy wires and surgical clips noted previously are again evident. In the interval since the previous study, the patient has been extubated. The central venous catheter on the right seen previously is again evident and no different. IMPRESSION: 1. The appearance of the chest has improved as the heart has decreased in size. There may still be an element of mild pulmonary congestion present, but both lungs do seem better aerated. A follow-up study would be recommended for continued evaluation. 2. The patient has been extubated. Dictated by: Dictated on workstation # [id number]
[2019-06-18 19:30] VITALS: BP 137/61
[2019-06-18] MEDS: MAGNESIUM 1 GM/100 ML IVPB 100 ML IV SCH ×3 (19:46→21:53)
--- OUTSIDE RECORDS SUMMARY | 2019-06-18 20:41 | XMS REPORT | Continuity of Care Document ---
Author Organization Unknown Address Unknown Allergies Active Description Code Type Severity Reaction Onset Reported/Identified Relationship to Patient Clinical Status Yes NO KNOWN DRUG ALLERGIES NO KNOWN DRUG ALLERG UNKNOWN Yes NO KNOWN DRUG ALLERGIES UNKNOWN NO KNOWN DRUG ALLERG Yes NO KNOWN DRUG ALLERGIES UNKNOWN UNKNOWN Yes No Known Drug Allergies [id number] Drug Allergy Unknown N/A 05/17/2019 Medications Medication Packaging Start Date Stop Date [...] 08/04/2018 08/10/2018 Daily&0900 MultiVits (Thera M Plus) (zwqazmar-funs-yptvbjm) oral tablet Dose(s) 08/04/2018 09/02/2018 Daily&0900 LISINOPRIL TAB 10 MG (ZESTRIL) Dose(s) 08/04/2018 08/10/2018 Daily&0900 LACTATED RINGERS 1000CC IV BAG INJ ml 10/05/2018 10/12/2018 CONTINUOUSEVERY 0 Hour Problems Date Dx Coded Attending Type Code Diagnosis Diagnosed By 02/09/2014 ZHOU LYONS FACC, JONATHAN ALEXANDRA CCDS Ot V45.81 AORTOCORONARY BYPASS 02/09/2014 ZHOU LYONS FACC, JONATHAN ALEXANDRA CCDS Ot V57.89 REHABILITATION PROC NEC 11/25/2016 NAIMA GAN 250.00 DIABETES MELLITUS WITHOUT [...] OBSTRUCTIVE PULMONARY DISEASE, UNSPECIFIED 06/19/2018 ARIADNA KAUFMAN W 726.11 CALCIFYING TENDINITIS OF SHOULDER 06/19/2018 SHAE, ARIADNA W 726.2 OTHER AFFECTIONS OF SHOULDER REGION, NOT ELSEWHERE CLASSIFIED 06/19/2018 SHAEARIADNA MALIN M75.32 CALCIFIC TENDINITIS OF LEFT SHOULDER 06/19/2018 SHAE, ARIADNA Franklin M75.42 IMPINGEMENT SYNDROME OF LEFT SHOULDER 07/31/2018 SHAEARIADNA MALIN W 726.11 CALCIFYING TENDINITIS OF SHOULDER 07/31/2018 SHAE, SARAH 726.2 OTHER AFFECTIONS OF SHOULDER REGION, NOT ELSEWHERE CLASSIFIED 07/31/2018 SHAEARIADNA MALIN M75.32 CALCIFIC TENDINITIS OF LEFT SHOULDER 07/31/2018 SHAE, SARAH M75.42 IMPINGEMENT SYNDROME OF LEFT SHOULDER 08/03/2018 Paris Moreno W 250.00 DIABETES MELLITUS WITHOUT MENTION OF COMPLICATION, TYPE II OR UNSPECIFIED TYPE, NOT STATED UNCONTROLLED 08/03/2018 Paris Moreno W 272.4 OTHER AND UNSPECIFIED HYPERLIPIDEMIA 08/03/2018 Paris Moreno W 401.9 UNSPECIFIED ESSENTIAL HYPERTENSION 08/03/2018 Nidhi Morenoa W 496 CHRONIC AIRWAY OBSTRUCTION, NOT ELSEWHERE CLASSIFIED 08/03/2018 Nidhi Morenoa W 782.0 DISTURBANCE OF SKIN SENSATION 08/03/2018 Paris Moreno W E11.9 TYPE 2 DIABETES MELLITUS WITHOUT COMPLICATIONS 08/03/2018 Paris Moreno W E78.5 HYPERLIPIDEMIA, UNSPECIFIED 08/03/2018 Nidhi Morenoa W I10 ESSENTIAL (PRIMARY) HYPERTENSION 08/03/2018 Paris Moreno J44.9 CHRONIC OBSTRUCTIVE PULMONARY DISEASE, UNSPECIFIED 08/03/2018 Parsi Moreno W R20.2 PARESTHESIA OF SKIN 08/04/2018 Nidhi Morenoa W 250.00 DIABETES MELLITUS WITHOUT MENTION OF COMPLICATION, TYPE II OR UNSPECIFIED TYPE, NOT STATED UNCONTROLLED 08/04/2018 Paris Moreno W 272.4 OTHER AND UNSPECIFIED HYPERLIPIDEMIA 08/04/2018 Nidhi Morenoa W 401.9 UNSPECIFIED ESSENTIAL HYPERTENSION 08/04/2018 Josh [place] W 496 CHRONIC AIRWAY OBSTRUCTION, NOT ELSEWHERE CLASSIFIED 08/04/2018 Nidhi Morenoa W 782.0 DISTURBANCE OF SKIN SENSATION 08/04/2018 Nidhi Morenoa W E11.9 TYPE 2 DIABETES MELLITUS WITHOUT COMPLICATIONS 08/04/2018 Nidhi Morenoa W E78.5 HYPERLIPIDEMIA, UNSPECIFIED 08/04/2018 Josh, [place] W I10 ESSENTIAL (PRIMARY) HYPERTENSION 08/04/2018 Josh, [place] W J44.9 CHRONIC OBSTRUCTIVE PULMONARY DISEASE, UNSPECIFIED 08/04/2018 Josh, [place] W R20.2 PARESTHESIA OF SKIN 08/04/2018 Josh, [place] W 250.00 DIABETES MELLITUS WITHOUT MENTION OF COMPLICATION, TYPE II OR UNSPECIFIED TYPE, NOT STATED UNCONTROLLED 08/04/2018 Josh, [place] W 272.4 OTHER AND UNSPECIFIED HYPERLIPIDEMIA 08/04/2018 Josh, [place] W 401.9 UNSPECIFIED ESSENTIAL HYPERTENSION 08/04/2018 Josh, [place] W 443.9 08/04/2018 Josh, [place] W 496 CHRONIC AIRWAY OBSTRUCTION, NOT ELSEWHERE CLASSIFIED 08/04/2018 Nidhi Morenoa A 782.0 DISTURBANCE OF SKIN SENSATION 08/04/2018 Josh, [place] W E11.9 TYPE 2 DIABETES MELLITUS WITHOUT COMPLICATIONS 08/04/2018 Josh, [place] W E78.5 HYPERLIPIDEMIA, UNSPECIFIED 08/04/2018 Josh, [place] W I10 ESSENTIAL (PRIMARY) HYPERTENSION 08/04/2018 Josh, [place] W I73.9 PERIPHERAL VASCULAR DISEASE, UNSPECIFIED 08/04/2018 Josh, [place] W J44.9 CHRONIC OBSTRUCTIVE PULMONARY DISEASE, [...] MALIGNANT NEOPLASMS OF COLON 10/05/2018 Yesica Soni W Z12.11 ENCOUNTER FOR SCREENING FOR MALIGNANT NEOPLASM OF COLON 05/14/2019 Ot V45.81 AORTOCORONARY BYPASS 05/14/2019 Ot V57.89 REHABILITATION PROC NEC 05/14/2019 Ot V45.81 AORTOCORONARY BYPASS 05/14/2019 Ot V57.89 REHABILITATION PROC NEC 05/14/2019 Ot V45.81 AORTOCORONARY BYPASS 05/14/2019 Ot V57.89 REHABILITATION PROC NEC 05/14/2019 Ot V45.81 AORTOCORONARY BYPASS 05/14/2019 Ot V57.89 REHABILITATION PROC NEC 05/17/2019 ETHAN BARRETT JASPER Ot E11.40 TYPE 2 DIABETES MELLITUS WITH DIABETIC N 05/17/2019 ETHAN BARRETT JASPER Ot E66.2 MORBID (SEVERE) OBESITY WITH ALVEOLAR HY 05/17/2019 ETHAN DO JASPER Ot E78.00 PURE HYPERCHOLESTEROLEMIA, UNSPECIFIED 05/17/2019 ETHAN BARRETT JASPER Ot E87.5 HYPERKALEMIA 05/17/2019 ETHAN BARRETT JASPER Ot I12.9 HYPERTENSIVE CHRONIC KIDNEY DISEASE W ST 05/17/2019 ETHAN BARRETT JASPER Ot I25.10 ATHSCL HEART DISEASE OF [place] CORONARY 05/17/2019 ETHAN BARRETT JASPER Ot J44.9 CHRONIC OBSTRUCTIVE PULMONARY DISEASE, U 05/17/2019 ETHAN BARRETT JASPER Ot J95.822 ACUTE AND CHRONIC POSTPROCEDURAL RESPIRA 05/17/2019 ETHAN BARRETT JASPER Ot K21.9 GASTRO-ESOPHAGEAL REFLUX DISEASE WITHOUT 05/17/2019 ETHAN BARRETT JASPER Ot K59.09 OTHER CONSTIPATION 05/17/2019 ETHAN BARRETT JASPER Ot M19.91 PRIMARY OSTEOARTHRITIS, UNSPECIFIED SITE 05/17/2019 ETHAN BARRETT JASPER Ot M54.9 DORSALGIA, UNSPECIFIED 05/17/2019 ETHAN BARRETT JASPER Ot N17.9 ACUTE KIDNEY FAILURE, UNSPECIFIED 05/17/2019 ETHAN BARRETT JASPER Ot N18.4 CHRONIC KIDNEY DISEASE, STAGE 4 (SEVERE) 05/17/2019 ETHAN BARRETT JASPER Ot N40.0 BENIGN PROSTATIC HYPERPLASIA WITHOUT LOW 05/17/2019 ETHAN BARRETT JASPER Ot R06.89 OTHER ABNORMALITIES OF BREATHING 05/17/2019 ETHAN BARRETT JASPER Ot R31.0 GROSS HEMATURIA 05/17/2019 ETHAN BARRETT JASPER Ot R79.9 ABNORMAL FINDING OF BLOOD CHEMISTRY, UNS 05/17/2019 ETHAN BARRETT JASPER Ot Z68.42 BODY MASS INDEX (BMI) 45.0-49.9, ADULT 05/17/2019 ETHAN BARRETT JASPER Ot Z79.84 [facility] (CURRENT) USE OF ORAL HYPOGLYC 05/17/2019 ETHAN BARRETT JASPER Ot Z95.1 PRESENCE OF AORTOCORONARY BYPASS GRAFT 05/17/2019 ETHAN BARRETT JASPER Ot E11.40 TYPE 2 DIABETES MELLITUS WITH DIABETIC N 05/17/2019 ETHAN BARRETT JASPER Ot E66.2 MORBID (SEVERE) OBESITY WITH ALVEOLAR HY 05/17/2019 ETHAN BARRETT JASPER Ot E78.00 PURE HYPERCHOLESTEROLEMIA, UNSPECIFIED 05/17/2019 ETHAN BARRETT JASPER Ot E87.5 HYPERKALEMIA 05/17/2019 ETHAN BARRETT JASPER Ot I12.9 HYPERTENSIVE CHRONIC KIDNEY DISEASE W ST 05/17/2019 ETHAN BARRETT JASPER Ot I25.10 ATHSCL HEART DISEASE OF [place] CORONARY 05/17/2019 ETHAN BARRETT JASPER Ot J44.9 CHRONIC OBSTRUCTIVE PULMONARY DISEASE, U 05/17/2019 ETHAN BARRETT JASPER Ot J95.822 ACUTE AND CHRONIC POSTPROCEDURAL RESPIRA 05/17/2019 ETHAN BARRETT JASPER Ot K21.9 GASTRO-ESOPHAGEAL REFLUX DISEASE WITHOUT 05/17/2019 ETHAN BARRETT JASPER Ot K59.09 OTHER CONSTIPATION 05/17/2019 ETHAN BARRETT JASPER Ot M19.91 PRIMARY OSTEOARTHRITIS, UNSPECIFIED SITE 05/17/2019 ETHAN BARRETT JASPER Ot M54.9 DORSALGIA, UNSPECIFIED 05/17/2019 ETHAN BARRETT JASPER Ot N17.9 ACUTE KIDNEY FAILURE, UNSPECIFIED 05/17/2019 ETHAN BARRETT JASPER Ot N18.4 CHRONIC KIDNEY DISEASE, STAGE 4 (SEVERE) 05/17/2019 ETHAN BARRETT JSAPER Ot N40.0 BENIGN PROSTATIC HYPERPLASIA WITHOUT LOW 05/17/2019 ETHAN BARRETT JASPER Ot R06.89 OTHER ABNORMALITIES OF BREATHING 05/17/2019 ETHAN BARRETT JASPER Ot R31.0 GROSS HEMATURIA 05/17/2019 ETHAN BARRETT JASPER Ot R79.9 ABNORMAL FINDING OF BLOOD CHEMISTRY, UNS 05/17/2019 ETHAN BARRETT JASPER Ot Z68.42 BODY MASS INDEX (BMI) 45.0-49.9, ADULT 05/17/2019 ETHAN BARRETT JASPER Ot 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 05/17/2019 ETHAN BARRETT JASPER Ot Z95.1 PRESENCE OF AORTOCORONARY BYPASS GRAFT 05/17/2019 ETHAN BARRETT JASPER Ot E11.40 TYPE 2 DIABETES MELLITUS WITH DIABETIC N 05/17/2019 ETHAN BARRETT JASPER Ot E66.2 MORBID (SEVERE) OBESITY WITH ALVEOLAR HY 05/17/2019 ETHAN DO JASPER Ot E78.00 PURE HYPERCHOLESTEROLEMIA, UNSPECIFIED 05/17/2019 ETHAN DO JASPER Ot E87.5 HYPERKALEMIA 05/17/2019 ETHAN BARRETT JASPER Ot I12.9 HYPERTENSIVE CHRONIC KIDNEY DISEASE W ST 05/17/2019 ETHAN BARRETT JASPER Ot I25.10 ATHSCL HEART DISEASE OF [place] CORONARY 05/17/2019 ETHAN DO JASPER Ot J44.9 CHRONIC OBSTRUCTIVE PULMONARY DISEASE, U 05/17/2019 ETHAN DO JASPER Ot J95.822 ACUTE AND CHRONIC POSTPROCEDURAL RESPIRA 05/17/2019 ETHAN DO JASPER Ot K21.9 GASTRO-ESOPHAGEAL REFLUX DISEASE WITHOUT 05/17/2019 ETHAN DO JASPER Ot K59.09 OTHER CONSTIPATION 05/17/2019 ETHAN DO JASPER Ot M19.91 PRIMARY OSTEOARTHRITIS, UNSPECIFIED SITE 05/17/2019 ETHAN BARRETT JASPER Ot M54.9 DORSALGIA, UNSPECIFIED 05/17/2019 ETHAN BARRETT JASPER Ot N17.9 ACUTE KIDNEY FAILURE, UNSPECIFIED 05/17/2019 ETHAN DO JASPER Ot N18.4 CHRONIC KIDNEY DISEASE, STAGE 4 (SEVERE) 05/17/2019 ETHAN DO JASPER Ot N40.0 BENIGN PROSTATIC HYPERPLASIA WITHOUT LOW 05/17/2019 ETHAN DO JASPER Ot R06.89 OTHER ABNORMALITIES OF BREATHING 05/17/2019 ETHAN DO JASPER Ot R31.0 GROSS HEMATURIA 05/17/2019 ETHAN DO JASPER Ot R79.9 ABNORMAL FINDING OF BLOOD CHEMISTRY, UNS 05/17/2019 ETHAN BARRETT JASPER Ot Z68.42 BODY MASS INDEX (BMI) 45.0-49.9, ADULT 05/17/2019 ETHAN BARRETT JASPER Ot 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 05/17/2019 ETHAN BARRETT JASPER Ot Z95.1 PRESENCE OF AORTOCORONARY BYPASS GRAFT 05/17/2019 ETHAN BARRETT JASPER Ot E11.40 TYPE 2 DIABETES MELLITUS WITH DIABETIC N 05/17/2019 ETHAN BARRETT JASPER Ot E66.2 MORBID (SEVERE) OBESITY WITH ALVEOLAR HY 05/17/2019 ETHAN BARRETT JASPER Ot E78.00 PURE HYPERCHOLESTEROLEMIA, UNSPECIFIED 05/17/2019 ETHAN BARRETT JASPER Ot E87.5 HYPERKALEMIA 05/17/2019 ETHAN BARRETT JASPER Ot I12.9 HYPERTENSIVE CHRONIC KIDNEY DISEASE W ST 05/17/2019 ROMMEL LONG DOI Ot I25.10 ATHSCL HEART DISEASE OF [place] CORONARY 05/17/2019 ETHAN BARRETT JASPER Ot J44.9 CHRONIC OBSTRUCTIVE PULMONARY DISEASE, U 05/17/2019 ROMMEL LONG DOI Ot J95.822 ACUTE AND CHRONIC POSTPROCEDURAL RESPIRA 05/17/2019 ETHAN BARRETT JASPRE Ot K21.9 GASTRO-ESOPHAGEAL REFLUX DISEASE WITHOUT 05/17/2019 ETHAN BARRETT JASPER Ot K59.09 OTHER CONSTIPATION 05/17/2019 ETHAN BARRETT JASPER Ot M19.91 PRIMARY OSTEOARTHRITIS, UNSPECIFIED SITE 05/17/2019 ETHAN BARRETT JASPER Ot M54.9 DORSALGIA, UNSPECIFIED 05/17/2019 ETHAN BARRETT JASPER Ot N17.9 ACUTE KIDNEY FAILURE, UNSPECIFIED 05/17/2019 ETHAN BARRETT JASPER Ot N18.4 CHRONIC KIDNEY DISEASE, STAGE 4 (SEVERE) 05/17/2019 ETHAN BARRETT JASPER Ot N40.0 BENIGN PROSTATIC HYPERPLASIA WITHOUT LOW 05/17/2019 ETHAN BARRETT JASPER Ot R06.89 OTHER ABNORMALITIES OF BREATHING 05/17/2019 ETHAN BARRETT JASPER Ot R31.0 GROSS HEMATURIA 05/17/2019 ETHAN BARRETT JASPER Ot R79.9 ABNORMAL FINDING OF BLOOD CHEMISTRY, UNS 05/17/2019 ETHAN BARRETT JASPER Ot Z68.42 BODY MASS INDEX (BMI) 45.0-49.9, ADULT 05/17/2019 ETHAN BARRETT JASPER Ot 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 05/17/2019 ETHAN BARRETT JASPER Ot Z95.1 PRESENCE OF AORTOCORONARY BYPASS GRAFT 05/17/2019 Ot V45.81 AORTOCORONARY BYPASS 05/17/2019 Ot V57.89 REHABILITATION PROC NEC 05/17/2019 Ot V45.81 AORTOCORONARY BYPASS 05/17/2019 Ot V57.89 REHABILITATION PROC NEC 05/17/2019 JASPER LONG DO Ot E11.40 TYPE 2 DIABETES MELLITUS WITH DIABETIC N 05/17/2019 ETHAN BARRETT JASPER Ot E66.2 MORBID (SEVERE) OBESITY WITH ALVEOLAR HY 05/17/2019 ETHAN BARRETT JASPER Ot E78.00 PURE HYPERCHOLESTEROLEMIA, UNSPECIFIED 05/17/2019 ETHAN BARRETT JASPER Ot E87.5 HYPERKALEMIA 05/17/2019 ROMMEL LONG DOI Ot I12.9 HYPERTENSIVE CHRONIC KIDNEY DISEASE W ST 05/17/2019 ETHAN BARRETT JASPER Ot I25.10 ATHSCL HEART DISEASE OF [place] CORONARY 05/17/2019 ROMMEL LONG DOI Ot J44.9 CHRONIC OBSTRUCTIVE PULMONARY DISEASE, U 05/17/2019 ETHAN BARRETT JASPER Ot J95.822 ACUTE AND CHRONIC POSTPROCEDURAL RESPIRA 05/17/2019 ETHAN BARRETT JASPER Ot K21.9 GASTRO-ESOPHAGEAL REFLUX DISEASE WITHOUT 05/17/2019 ETHAN BARRETT JASPER Ot K59.09 OTHER CONSTIPATION 05/17/2019 ETHAN BARRETT JASPER Ot M19.91 PRIMARY OSTEOARTHRITIS, UNSPECIFIED SITE 05/17/2019 ROMMEL LONG DOI Ot M54.9 DORSALGIA, UNSPECIFIED 05/17/2019 ETHAN BARRETT JASPER Ot N17.9 ACUTE KIDNEY FAILURE, UNSPECIFIED 05/17/2019 ETHAN BARRETT JASPER Ot N18.4 CHRONIC KIDNEY DISEASE, STAGE 4 (SEVERE) 05/17/2019 ETHAN BARRETT JASPER Ot N40.0 BENIGN PROSTATIC HYPERPLASIA WITHOUT LOW 05/17/2019 ETHAN BARRETT JASPER Ot R06.89 OTHER ABNORMALITIES OF BREATHING 05/17/2019 ETHAN BARRETT JASPER Ot R31.0 GROSS HEMATURIA 05/17/2019 ETHAN BARRETT JASPER Ot R79.9 ABNORMAL FINDING OF BLOOD CHEMISTRY, UNS 05/17/2019 ROMMEL LONG DOI Ot Z68.42 BODY MASS INDEX (BMI) 45.0-49.9, ADULT 05/17/2019 ETHAN BARRETT JASPER Ot 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 05/17/2019 ETHAN BARRETT JASPER Ot Z95.1 PRESENCE OF AORTOCORONARY BYPASS GRAFT 05/17/2019 ETHAN BARRETT JASPER Ot E11.40 TYPE 2 DIABETES MELLITUS WITH DIABETIC N 05/17/2019 ETHAN BARRETT JASPER Ot E66.2 MORBID (SEVERE) OBESITY WITH ALVEOLAR HY 05/17/2019 ETHAN BARRETT JASPER Ot E78.00 PURE HYPERCHOLESTEROLEMIA, UNSPECIFIED 05/17/2019 ETHAN BARRETT JASPER Ot E87.5 HYPERKALEMIA 05/17/2019 ETHAN BARRETT JASPER Ot I12.9 HYPERTENSIVE CHRONIC KIDNEY DISEASE W ST 05/17/2019 ETHAN BARRETT JASPER Ot I25.10 ATHSCL HEART DISEASE OF [place] CORONARY 05/17/2019 ETHAN BARRETT JASPER Ot J44.9 CHRONIC OBSTRUCTIVE PULMONARY DISEASE, U 05/17/2019 ETHAN BARRETT JASPER Ot J95.822 ACUTE AND CHRONIC POSTPROCEDURAL RESPIRA 05/17/2019 ETHAN BARRETT JASPER Ot K21.9 GASTRO-ESOPHAGEAL REFLUX DISEASE WITHOUT 05/17/2019 ETHAN BARRETT JASPER Ot K59.09 OTHER CONSTIPATION 05/17/2019 ETHAN BARRETT JASPER Ot M19.91 PRIMARY OSTEOARTHRITIS, UNSPECIFIED SITE 05/17/2019 ETHAN BARRETT JASPER Ot M54.9 DORSALGIA, UNSPECIFIED 05/17/2019 ETHAN BARRETT JASPER Ot N17.9 ACUTE KIDNEY FAILURE, UNSPECIFIED 05/17/2019 ETHAN BARRETT JASPER Ot N18.4 CHRONIC KIDNEY DISEASE, STAGE 4 (SEVERE) 05/17/2019 ETHAN BARRETT JASPER Ot N40.0 BENIGN PROSTATIC HYPERPLASIA WITHOUT LOW 05/17/2019 ETHAN BARRETT JASPER Ot R06.89 OTHER ABNORMALITIES OF BREATHING 05/17/2019 ETHAN BARRETT JASPER Ot R31.0 GROSS HEMATURIA 05/17/2019 ETHAN BARRETT JASPER Ot R79.9 ABNORMAL FINDING OF BLOOD CHEMISTRY, UNS 05/17/2019 ROMMEL LONG DOI Ot Z68.42 BODY MASS INDEX (BMI) 45.0-49.9, ADULT 05/17/2019 ETHAN BARRETT JASPER Ot Z79.84 [facility] (CURRENT) USE OF ORAL HYPOGLYC 05/17/2019 ETHAN BARRETT JASPER Ot Z95.1 PRESENCE OF AORTOCORONARY BYPASS GRAFT 05/17/2019 ROMMEL LONG DOI Ot D64.9 ANEMIA, UNSPECIFIED 05/17/2019 ETHAN BARRETT JASPER Ot D72.829 ELEVATED WHITE BLOOD CELL COUNT, UNSPECI 05/17/2019 ETHAN BARRETT JASPER Ot E11.40 TYPE 2 DIABETES MELLITUS WITH DIABETIC N 05/17/2019 ETHAN BARRETT JASPER Ot E66.2 MORBID (SEVERE) OBESITY WITH ALVEOLAR HY 05/17/2019 ETHAN BARRETT JASPER Ot E78.00 PURE HYPERCHOLESTEROLEMIA, UNSPECIFIED 05/17/2019 ETHAN BARRETT JASPER Ot E87.2 ACIDOSIS 05/17/2019 ROMMEL LONG DOI Ot E87.5 HYPERKALEMIA 05/17/2019 ROMMEL LONG DOI Ot I12.9 HYPERTENSIVE CHRONIC KIDNEY DISEASE W ST 05/17/2019 ROMMEL LONG DOI Ot I25.10 ATHSCL HEART DISEASE OF [place] CORONARY 05/17/2019 ETHAN BARRETT JASPER Ot J44.9 CHRONIC OBSTRUCTIVE PULMONARY DISEASE, U 05/17/2019 ETHAN BARRETT JASPER Ot J95.822 ACUTE AND CHRONIC POSTPROCEDURAL RESPIRA 05/17/2019 ETHAN BARRETT JASPER Ot K21.9 GASTRO-ESOPHAGEAL REFLUX DISEASE WITHOUT 05/17/2019 ETHAN BARRETT JASPER Ot K25.0 ACUTE GASTRIC ULCER WITH HEMORRHAGE 05/17/2019 ETHAN BARRETT JASPER Ot K29.70 GASTRITIS, UNSPECIFIED, WITHOUT BLEEDING 05/17/2019 ROMMEL LONG DOI Ot K59.09 OTHER CONSTIPATION 05/17/2019 ETHAN BARRETT JASPER Ot M19.91 PRIMARY OSTEOARTHRITIS, UNSPECIFIED SITE 05/17/2019 ETHAN BARRETT JASPER Ot M54.9 DORSALGIA, UNSPECIFIED 05/17/2019 ETHAN BARRETT JASPER Ot N13.9 OBSTRUCTIVE AND REFLUX UROPATHY, UNSPECI 05/17/2019 ETHAN BARRETT JASPER Ot N17.9 ACUTE KIDNEY FAILURE, UNSPECIFIED 05/17/2019 ETHAN BARRETT JASPER Ot N18.4 CHRONIC KIDNEY DISEASE, STAGE 4 (SEVERE) 05/17/2019 ETHAN BARRETT JASPER Ot N40.0 BENIGN PROSTATIC HYPERPLASIA WITHOUT LOW 05/17/2019 JASPER LONG DO Ot R06.89 OTHER ABNORMALITIES OF BREATHING 05/17/2019 JASPER LONG DO Ot R31.0 GROSS HEMATURIA 05/17/2019 JASPER LONG DO Ot R79.9 ABNORMAL FINDING OF BLOOD CHEMISTRY, UNS 05/17/2019 JASPER LONG DO Ot Z68.42 BODY MASS INDEX (BMI) 45.0-49.9, ADULT 05/17/2019 JASPER LONG DO Ot Z79.84 [facility] (CURRENT) USE OF ORAL HYPOGLYC 05/17/2019 JASPER LONG DO Ot Z95.1 PRESENCE OF AORTOCORONARY BYPASS GRAFT Procedures Code Description Performed By Performed On [id number] INSERTION OF ENDOTRACHEAL AIRWAY INTO TR 05/15/2019 [id number] RESPIRATORY VENTILATION, 24- 96 CONSECUTI 05/15/2019 [id number] EXCISION OF STOMACH, ENDO, DIAGN 05/17/2019 [id number] EXCISION OF STOMACH, PYLORUS, ENDO, DIAG 05/17/2019 Results Test Result Range Pulmonary Function Hemoglobin [...] 7.40 % 5.40-6.60 AvGlu 184 mg/dL 70-110 Complete blood count (CBC) with automated white blood cell (WBC) differential - 05/14/19 10:27 Blood leukocytes automated count (number/volume) 13.0 10*3/uL 4.3-11.0 Blood erythrocytes automated count (number/volume) 3.48 10*6/uL 4.35-5.85 Venous blood hemoglobin measurement (mass/volume) 10.4 g/dL 13.3-17.7 Blood hematocrit (volume fraction) 34 % 40-54 Automated erythrocyte mean corpuscular volume 97 [foz_us] 80-99 Automated erythrocyte mean corpuscular hemoglobin (mass per erythrocyte) 30 pg 25-34 Automated erythrocyte mean corpuscular hemoglobin concentration measurement (mass/volume) 31 g/dL 32-36 Automated erythrocyte distribution width ratio 15.9 % 10.0- 14.5 Automated blood platelet count (count/volume) 197 10*3/uL 130-400 Automated blood platelet mean volume measurement TNP 7.4- 10.4 Automated blood neutrophils/100 leukocytes 77 % 42-75 Automated blood lymphocytes/100 leukocytes 11 % 12-44 Blood monocytes/100 leukocytes 11 % 0-12 Automated blood eosinophils/100 leukocytes 0 % 0-10 Automated blood basophils/100 leukocytes 0 % 0-10 Blood neutrophils automated count (number/volume) 10.1 10*3 1.8-7.8 Blood lymphocytes automated count (number/volume) 1.5 10*3 1.0-4.0 Blood monocytes automated count (number/volume) 1.4 10*3 0.0- 1.0 Automated eosinophil count 0.0 10*3/uL 0.0-0.3 Automated blood basophil count (count/volume) 0.0 10*3/uL 0.0-0.1 Comprehensive metabolic panel - 05/14/19 10:27 Serum or plasma sodium measurement (moles/volume) 134 mmol/L 135-145 Serum or plasma potassium measurement (moles/volume) 7.6 mmol/L 3.6-5.0 Serum or plasma chloride measurement (moles/volume) 102 mmol/L 98-107 Carbon dioxide 23 mmol/L 21-32 Serum or plasma anion gap determination (moles/volume) 9 mmol/L 5-14 Serum or plasma urea nitrogen measurement (mass/volume) 37 mg/dL 7-18 Serum or plasma creatinine measurement (mass/volume) 2.75 mg/dL 0.60-1.30 Serum or plasma urea nitrogen/creatinine mass ratio 13 NRG Serum or plasma creatinine measurement with calculation of estimated glomerular filtration rate 23 NRG Serum or plasma glucose measurement (mass/volume) 216 mg/dL 70-105 Serum or plasma calcium measurement (mass/volume) 7.3 mg/dL 8.5-10.1 Serum or plasma total bilirubin measurement (mass/volume) 0.3 mg/dL 0.1-1.0 Serum or plasma alkaline phosphatase measurement (enzymatic activity/volume) 62 U/L 40-136 Serum or plasma aspartate aminotransferase measurement (enzymatic activity/volume) 364 U/L 5-34 Serum or plasma alanine aminotransferase measurement (enzymatic activity/volume) 140 U/L 0-55 Serum or plasma protein measurement (mass/volume) 6.0 g/dL 6.4-8.2 Serum or plasma albumin measurement (mass/volume) 3.4 g/dL 3.2-4.5 CALCIUM CORRECTED 7.8 mg/dL 8.5-10.1 Serum or plasma phosphate measurement (mass/volume) - 05/14/19 10:27 Serum or plasma phosphate measurement (mass/volume) 6.4 mg/dL 2.3-4.7 Magnesium - 05/14/19 10:27 Magnesium 1.3 mg/dL 1.8-2.4 Serum or plasma lithium measurement (moles/volume) - 05/14/19 10:27 BNP level 263.0 pg/mL <100.0 Arterial blood gas measurement - 05/14/19 23:45 Blood pCO2 62 mm[Hg] 35-45 Blood pO2 76 mm[Hg] 79-93 Arterial blood bicarbonate measurement (moles/volume) 27 mmol/L 23-27 Arterial blood base excess by calculation 0.4 mmol/L -2.5-2.5 Arterial blood oxygen saturation measurement 95 % 94-100 * Inhaled oxygen flow rate 30% NRG Arterial blood pH measurement with patient temperature correction 7.26 7.37-7.43 Arterial blood carbon dioxide, total measurement (moles/volume) 28.6 mmol/L 21.0-31.0 Body site LEFT RADIAL NRG Assessment of wrist artery patency prior to arterial puncture YES-POS NRG Setting of ventilation mode NO NRG Measurement of body temperature 98.6 NRG Capillary blood glucose measurement by glucometer (mass/volume) - 05/14/19 12:00 Capillary blood glucose measurement by glucometer (mass/volume) 193 mg/dL 70-110 Arterial blood gas measurement - 05/14/19 13:16 Blood pCO2 66 mm[Hg] 35-45 Blood pO2 79 mm[Hg] 79-93 Arterial blood bicarbonate measurement (moles/volume) 26 mmol/L 23-27 Arterial blood base excess by calculation -1.2 mmol/L -2.5-2.5 Arterial blood oxygen saturation measurement 96 % 94-100 * Inhaled oxygen flow rate 40% BIPAP NRG Arterial blood pH measurement with patient temperature correction 7.22 7.37-7.43 Arterial blood carbon dioxide, total measurement (moles/volume) 27.6 mmol/L 21.0-31.0 Body site R RADIAL NRG Assessment of wrist artery patency prior to arterial puncture YES-POS NRG Setting of ventilation mode NO NRG Measurement of body temperature 98.8 NRG Whole blood basic metabolic panel - 05/14/19 16:24 Serum or plasma sodium measurement (moles/volume) 138 mmol/L 135-145 Serum or plasma potassium measurement (moles/volume) 6.3 mmol/L 3.6-5.0 Serum or plasma chloride measurement (moles/volume) 102 mmol/L 98-107 Carbon dioxide 26 mmol/L 21-32 Serum or plasma anion gap determination (moles/volume) 10 mmol/L 5-14 Serum or plasma urea nitrogen measurement (mass/volume) 39 mg/dL 7-18 Serum or plasma creatinine measurement (mass/volume) 2.77 mg/dL 0.60-1.30 Serum or plasma urea nitrogen/creatinine mass ratio 14 NRG Serum or plasma creatinine measurement with calculation of estimated glomerular filtration rate 23 NRG Serum or plasma glucose measurement (mass/volume) 258 mg/dL 70-105 Serum or plasma calcium measurement (mass/volume) 7.1 mg/dL 8.5-10.1 Capillary blood glucose measurement by glucometer (mass/volume) - 05/14/19 18:15 Capillary blood glucose measurement by glucometer (mass/volume) 237 mg/dL 70-110 Complete blood count (CBC) with automated white blood cell (WBC) differential - 05/14/19 20:00 Blood leukocytes automated count (number/volume) 10.6 10*3/uL 4.3-11.0 Blood erythrocytes automated count (number/volume) 3.19 10*6/uL 4.35-5.85 Venous blood hemoglobin measurement (mass/volume) 9.6 g/dL 13.3-17.7 Blood hematocrit (volume fraction) 31 % 40-54 Automated erythrocyte mean corpuscular volume 98 [foz_us] 80-99 Automated erythrocyte mean corpuscular hemoglobin (mass per erythrocyte) 30 pg 25-34 Automated erythrocyte mean corpuscular hemoglobin concentration measurement (mass/volume) 31 g/dL 32-36 Automated erythrocyte distribution width ratio 15.8 % 10.0- 14.5 Automated blood platelet count (count/volume) 139 10*3/uL 130-400 Automated blood platelet mean volume measurement 11.2 [foz_us] 7.4-10.4 Automated blood neutrophils/100 leukocytes 74 % 42-75 Automated blood lymphocytes/100 leukocytes 13 % 12-44 Blood monocytes/100 leukocytes 13 % 0-12 Automated blood eosinophils/100 leukocytes 0 % 0-10 Automated blood basophils/100 leukocytes 0 % 0-10 Blood neutrophils automated count (number/volume) 7.8 10*3 1.8-7.8 Blood lymphocytes automated count (number/volume) 1.4 10*3 1.0-4.0 Blood monocytes automated count (number/volume) 1.4 10*3 0.0- 1.0 Automated eosinophil count 0.0 10*3/uL 0.0-0.3 Automated blood basophil count (count/volume) 0.0 10*3/uL 0.0-0.1 Arterial blood gas measurement - 05/14/19 20:00 Blood pCO2 69 mm[Hg] 35-45 Blood pO2 76 mm[Hg] 79-93 Arterial blood bicarbonate measurement (moles/volume) 28 mmol/L 23-27 Arterial blood base excess by calculation 1.3 mmol/L -2.5-2.5 Arterial blood oxygen saturation measurement 95 % 94-100 * Inhaled oxygen flow rate 35% BIPAP NRG Arterial blood pH measurement with patient temperature correction 7.23 7.37-7.43 Arterial blood carbon dioxide, total measurement (moles/volume) 30.1 mmol/L 21.0-31.0 Body site L RAD NRG Assessment of wrist artery patency prior to arterial puncture YES-POS NRG Setting of ventilation mode NO NRG Measurement of body temperature 99.5 NRG Whole blood basic metabolic panel - 05/14/19 20:00 Serum or plasma sodium measurement (moles/volume) 142 mmol/L 135-145 Serum or plasma potassium measurement (moles/volume) 5.4 mmol/L 3.6-5.0 Serum or plasma chloride measurement (moles/volume) 105 mmol/L 98-107 Carbon dioxide 25 mmol/L 21-32 Serum or plasma anion gap determination (moles/volume) 12 mmol/L 5-14 Serum or plasma urea nitrogen measurement (mass/volume) 40 mg/dL 7-18 Serum or plasma creatinine measurement (mass/volume) 2.55 mg/dL 0.60-1.30 Serum or plasma urea nitrogen/creatinine mass ratio 16 NRG Serum or plasma creatinine measurement with calculation of estimated glomerular filtration rate 25 NRG Serum or plasma glucose measurement (mass/volume) 220 mg/dL 70-105 Serum or plasma calcium measurement (mass/volume) 7.1 mg/dL 8.5-10.1 Serum or plasma phosphate measurement (mass/volume) - 05/14/19 20:00 Serum or plasma phosphate measurement (mass/volume) 5.2 mg/dL 2.3-4.7 Magnesium - 05/14/19 20:00 Magnesium 1.5 mg/dL 1.8-2.4 Capillary blood glucose measurement by glucometer (mass/volume) - 05/14/19 21:25 Capillary blood glucose measurement by glucometer (mass/volume) 229 mg/dL 70-110 Complete blood count (CBC) with automated white blood cell (WBC) differential - 05/15/19 02:15 Blood leukocytes automated count (number/volume) 9.8 10*3/uL 4.3-11.0 Blood erythrocytes automated count (number/volume) 2.90 10*6/uL 4.35-5.85 Venous blood hemoglobin measurement (mass/volume) 8.7 g/dL 13.3-17.7 Blood hematocrit (volume fraction) 29 % 40-54 Automated erythrocyte mean corpuscular volume 99 [foz_us] 80-99 Automated erythrocyte mean corpuscular hemoglobin (mass per erythrocyte) 30 pg 25-34 Automated erythrocyte mean corpuscular hemoglobin concentration measurement (mass/volume) 30 g/dL 32-36 Automated erythrocyte distribution width ratio 15.9 % 10.0- 14.5 Automated blood platelet count (count/volume) 129 10*3/uL 130-400 Automated blood platelet mean volume measurement 11.2 [foz_us] 7.4-10.4 Automated blood neutrophils/100 leukocytes 79 % 42-75 Automated blood lymphocytes/100 leukocytes 10 % 12-44 Blood monocytes/100 leukocytes 11 % 0-12 Automated blood eosinophils/100 leukocytes 0 % 0-10 Automated blood basophils/100 leukocytes 0 % 0-10 Blood neutrophils automated count (number/volume) 7.7 10*3 1.8-7.8 Blood lymphocytes automated count (number/volume) 1.0 10*3 1.0-4.0 Blood monocytes automated count (number/volume) 1.1 10*3 0.0- 1.0 Automated eosinophil count 0.0 10*3/uL 0.0-0.3 Automated blood basophil count (count/volume) 0.0 10*3/uL 0.0-0.1 Whole blood basic metabolic panel - 05/15/19 02:15 Serum or plasma sodium measurement (moles/volume) 141 mmol/L 135-145 Serum or plasma potassium measurement (moles/volume) 4.8 mmol/L 3.6-5.0 Serum or plasma chloride measurement (moles/volume) 105 mmol/L 98-107 Carbon dioxide 24 mmol/L 21-32 Serum or plasma anion gap determination (moles/volume) 12 mmol/L 5-14 Serum or plasma urea nitrogen measurement (mass/volume) 40 mg/dL 7-18 Serum or plasma creatinine measurement (mass/volume) 2.44 mg/dL 0.60-1.30 Serum or plasma urea nitrogen/creatinine mass ratio 16 NRG Serum or plasma creatinine measurement with calculation of estimated glomerular filtration rate 27 NRG Serum or plasma glucose measurement (mass/volume) 250 mg/dL 70-105 Serum or plasma calcium measurement (mass/volume) 6.9 mg/dL 8.5-10.1 Serum or plasma phosphate measurement (mass/volume) - 05/15/19 02:15 Serum or plasma phosphate measurement (mass/volume) 5.4 mg/dL 2.3-4.7 Magnesium - 05/15/19 02:15 Magnesium 1.4 mg/dL 1.8-2.4 Arterial blood gas measurement - 05/15/19 02:58 Blood pCO2 62 mm[Hg] 35-45 Blood pO2 80 mm[Hg] 79-93 Arterial blood bicarbonate measurement (moles/volume) 27 mmol/L 23-27 Arterial blood base excess by calculation 0.9 mmol/L -2.5-2.5 Arterial blood oxygen saturation measurement 97 % 94-100 * Inhaled oxygen flow rate 30% NRG Arterial blood pH measurement with patient temperature correction 7.26 7.37-7.43 Arterial blood carbon dioxide, total measurement (moles/volume) 29.3 mmol/L 21.0-31.0 Body site LEFT RADIAL NRG Assessment of wrist artery patency prior to arterial puncture YES-POS NRG Setting of ventilation mode NO NRG Measurement of body temperature 97.6 NRG Capillary blood glucose measurement by glucometer (mass/volume) - 05/15/19 05:33 Capillary blood glucose measurement by glucometer (mass/volume) 276 mg/dL 70-110 Blood lactic acid measurement (moles/volume) - 05/15/19 06:00 Blood lactic acid measurement (moles/volume) 2.37 mmol/L 0.50- 2.00 Comprehensive metabolic panel - 05/15/19 06:00 Serum or plasma sodium measurement (moles/volume) 138 mmol/L 135-145 Serum or plasma potassium measurement (moles/volume) 4.7 mmol/L 3.6-5.0 Serum or plasma chloride measurement (moles/volume) 103 mmol/L 98-107 Carbon dioxide 25 mmol/L 21-32 Serum or plasma anion gap determination (moles/volume) 10 mmol/L 5-14 Serum or plasma urea nitrogen measurement (mass/volume) 38 mg/dL 7-18 Serum or plasma creatinine measurement (mass/volume) 2.21 mg/dL 0.60-1.30 Serum or plasma urea nitrogen/creatinine mass ratio 17 NRG Serum or plasma creatinine measurement with calculation of estimated glomerular filtration rate 30 NRG Serum or plasma glucose measurement (mass/volume) 266 mg/dL 70-105 Serum or plasma calcium measurement (mass/volume) 6.9 mg/dL 8.5-10.1 Serum or plasma total bilirubin measurement (mass/volume) 0.3 mg/dL 0.1-1.0 Serum or plasma alkaline phosphatase measurement (enzymatic activity/volume) 51 U/L 40-136 Serum or plasma aspartate aminotransferase measurement (enzymatic activity/volume) 312 U/L 5-34 Serum or plasma alanine aminotransferase measurement (enzymatic activity/volume) 101 U/L 0-55 Serum or plasma protein measurement (mass/volume) 5.4 g/dL 6.4-8.2 Serum or plasma albumin measurement (mass/volume) 3.0 g/dL 3.2-4.5 CALCIUM CORRECTED 7.7 mg/dL 8.5-10.1 Ammonia - 05/15/19 06:00 Ammonia 30 umol/L 11-32 Serum or plasma lithium measurement (moles/volume) - 05/15/19 06:00 BNP level 68.7 pg/mL <100.0 Serum or plasma triglyceride measurement (mass/volume) - 05/15/19 06:00 Serum or plasma triglyceride measurement (mass/volume) 253 mg/dL <150 Bacterial blood culture - 05/15/19 06:30 Bacterial blood culture NG NRG Bacterial blood culture - 05/15/19 06:35 Bacterial blood culture NG NRG Capillary blood glucose measurement by glucometer (mass/volume) - 05/15/19 08:12 Capillary blood glucose measurement by glucometer (mass/volume) 270 mg/dL 70-110 Arterial blood gas measurement - 05/15/19 08:12 Blood pCO2 62 mm[Hg] 35-45 Blood pO2 99 mm[Hg] 79-93 Arterial blood bicarbonate measurement (moles/volume) 28 mmol/L 23-27 Arterial blood base excess by calculation 1.9 mmol/L -2.5-2.5 Arterial blood oxygen saturation measurement 99 % 94-100 * Inhaled oxygen flow rate 30% BIPAP NRG Arterial blood pH measurement with patient temperature correction 7.28 7.37-7.43 Arterial blood carbon dioxide, total measurement (moles/volume) 29.9 mmol/L 21.0-31.0 Body site LEFT RADIAL NRG Assessment of wrist artery patency prior to arterial puncture POSITIVE NRG Setting of ventilation mode NO NRG Measurement of body temperature 98.6 NRG Bacterial blood culture - 05/15/19 08:30 Bacterial blood culture NG NRG Complete urinalysis with reflex to culture - 05/15/19 08:45 Urine color determination YELLOW NRG Urine clarity determination VERY CLOUDY NRG Urine pH measurement by test strip 5 5-9 Specific gravity of urine by test strip 1.020 1.016-1.022 Urine protein assay by test strip, semi-quantitative 2+ NEGATIVE Urine glucose detection by automated test strip NEGATIVE NEGATIVE Erythrocytes detection in urine sediment by light microscopy 5+ NEGATIVE Urine ketones detection by automated test strip NEGATIVE NEGATIVE Urine nitrite detection by test strip NEGATIVE NEGATIVE Urine total bilirubin detection by test strip NEGATIVE NEGATIVE Urine urobilinogen measurement by automated test strip (mass/volume) NORMAL NORMAL Urine leukocyte esterase detection by dipstick 3+ NEGATIVE Automated urine sediment erythrocyte count by microscopy (number/high power field) TNTC NRG Automated urine sediment leukocyte count by microscopy (number/high power field) [HPF] NRG Bacteria detection in urine sediment by light microscopy MODERATE NRG Squamous epithelial cells detection in urine sediment by light microscopy NONE NRG Crystals detection in urine sediment by light microscopy NONE NRG Casts detection in urine sediment by light microscopy PRESENT NRG Mucus detection in urine sediment by light microscopy NEGATIVE NRG Complete urinalysis with reflex to culture YES NRG Amorphous sediment detection in urine sediment by light microscopy MOD SOLIS URATES NRG Coarse granular casts detection in urine sediment by light microscopy 5-10 NRG Bacterial urine culture - 05/15/19 08:45 Bacterial urine culture NG NRG Serum or plasma lactate measurement (moles/volume) - 05/15/19 11:21 Serum or plasma lactate measurement (moles/volume) 2.35 mmol/L 0.50-2.00 Capillary blood glucose measurement by glucometer (mass/volume) - 05/15/19 11:34 Capillary blood glucose measurement by glucometer (mass/volume) 207 mg/dL 70-110 Arterial blood gas measurement - 05/15/19 12:49 Blood pCO2 62 mm[Hg] 35-45 Blood pO2 89 mm[Hg] 79-93 Arterial blood bicarbonate measurement (moles/volume) 28 mmol/L 23-27 Arterial blood base excess by calculation 2.1 mmol/L -2.5-2.5 Arterial blood oxygen saturation measurement 98 % 94-100 * Inhaled oxygen flow rate 45% NRG Arterial blood pH measurement with patient temperature correction 7.28 7.37-7.43 Arterial blood carbon dioxide, total measurement (moles/volume) 30.0 mmol/L 21.0-31.0 Body site LEFT RADIAL NRG Assessment of wrist artery patency prior to arterial puncture POSITIVE NRG Setting of ventilation mode YES NRG Measurement of body temperature 98.8 NRG Sputum Gram stain - 05/15/19 13:47 Sputum Gram stain Mixed Bacterial Hillary NRG Bacterial sputum culture - 05/15/19 13:47 QUANTITY OF GROWTH . NRG Bacterial sputum culture USUAL RESP NRG Arterial blood gas measurement - 05/15/19 14:49 Blood pCO2 59 mm[Hg] 35-45 Blood pO2 69 mm[Hg] 79-93 Arterial blood bicarbonate measurement (moles/volume) 28 mmol/L 23-27 Arterial blood base excess by calculation 2.5 mmol/L -2.5-2.5 Arterial blood oxygen saturation measurement 95 % 94-100 * Inhaled oxygen flow rate 45 NRG Arterial blood pH measurement with patient temperature correction 7.30 7.37-7.43 Arterial blood carbon dioxide, total measurement (moles/volume) 30.3 mmol/L 21.0-31.0 Body site LT RAD ARTLINE NRG Assessment of wrist artery patency prior to arterial puncture ART LINE NRG Setting of ventilation mode YES NRG Measurement of body temperature 97.7 NRG Capillary blood glucose measurement by glucometer (mass/volume) - 05/15/19 15:41 Capillary blood glucose measurement by glucometer (mass/volume) 257 mg/dL 70-110 Capillary blood glucose measurement by glucometer (mass/volume) - 05/15/19 20:13 Capillary blood glucose measurement by glucometer (mass/volume) 225 mg/dL 70-110 Capillary blood glucose measurement by glucometer (mass/volume) - 05/15/19 23:57 Capillary blood glucose measurement by glucometer (mass/volume) 184 mg/dL 70-110 Arterial blood gas measurement - 05/16/19 03:01 Blood pCO2 53 mm[Hg] 35-45 Blood pO2 61 mm[Hg] 79-93 Arterial blood bicarbonate measurement (moles/volume) 30 mmol/L 23-27 Arterial blood base excess by calculation 4.2 mmol/L -2.5-2.5 Arterial blood oxygen saturation measurement 94 % 94-100 * Inhaled oxygen flow rate 35% NRG Arterial blood pH measurement with patient temperature correction 7.36 7.37-7.43 Arterial blood carbon dioxide, total measurement (moles/volume) 31.1 mmol/L 21.0-31.0 Body site ART LINE NRG Assessment of wrist artery patency prior to arterial puncture ART LINE NRG Setting of ventilation mode YES NRG Measurement of body temperature 97.4 NRG Complete blood count (CBC) with automated white blood cell (WBC) differential - 05/16/19 03:01 Blood leukocytes automated count (number/volume) 6.7 10*3/uL 4.3-11.0 Blood erythrocytes automated count (number/volume) 2.48 10*6/uL 4.35-5.85 Venous blood hemoglobin measurement (mass/volume) 7.5 g/dL 13.3-17.7 Blood hematocrit (volume fraction) 24 % 40-54 Automated erythrocyte mean corpuscular volume 98 [foz_us] 80-99 Automated erythrocyte mean corpuscular hemoglobin (mass per erythrocyte) 30 pg 25-34 Automated erythrocyte mean corpuscular hemoglobin concentration measurement (mass/volume) 31 g/dL 32-36 Automated erythrocyte distribution width ratio 16.1 % 10.0- 14.5 Automated blood platelet count (count/volume) 113 10*3/uL 130-400 Automated blood platelet mean volume measurement 10.5 [foz_us] 7.4-10.4 Automated blood neutrophils/100 leukocytes 72 % 42-75 Automated blood lymphocytes/100 leukocytes 16 % 12-44 Blood monocytes/100 leukocytes 10 % 0-12 Automated blood eosinophils/100 leukocytes 1 % 0-10 Automated blood basophils/100 leukocytes 0 % 0-10 Blood neutrophils automated count (number/volume) 4.8 10*3 1.8-7.8 Blood lymphocytes automated count (number/volume) 1.1 10*3 1.0-4.0 Blood monocytes automated count (number/volume) 0.7 10*3 0.0- 1.0 Automated eosinophil count 0.1 10*3/uL 0.0-0.3 Automated blood basophil count (count/volume) 0.0 10*3/uL 0.0-0.1 Whole blood basic metabolic panel - 05/16/19 03:01 Serum or plasma sodium measurement (moles/volume) 143 mmol/L 135-145 Serum or plasma potassium measurement (moles/volume) 4.0 mmol/L 3.6-5.0 Serum or plasma chloride measurement (moles/volume) 106 mmol/L 98-107 Carbon dioxide 26 mmol/L 21-32 Serum or plasma anion gap determination (moles/volume) 11 mmol/L 5-14 Serum or plasma urea nitrogen measurement (mass/volume) 28 mg/dL 7-18 Serum or plasma creatinine measurement (mass/volume) 1.59 mg/dL 0.60-1.30 Serum or plasma urea nitrogen/creatinine mass ratio 18 NRG Serum or plasma creatinine measurement with calculation of estimated glomerular filtration rate 44 NRG Serum or plasma glucose measurement (mass/volume) 191 mg/dL 70-105 Serum or plasma calcium measurement (mass/volume) 7.3 mg/dL 8.5-10.1 Serum or plasma phosphate measurement (mass/volume) - 05/16/19 03:01 Serum or plasma phosphate measurement (mass/volume) 2.9 mg/dL 2.3-4.7 Magnesium - 05/16/19 03:01 Magnesium 1.9 mg/dL 1.8-2.4 Serum or plasma lithium measurement (moles/volume) - 05/16/19 03:01 BNP level 109.1 pg/mL <100.0 Blood lactic acid measurement (moles/volume) - 05/16/19 05:55 Blood lactic acid measurement (moles/volume) 1.29 mmol/L 0.50- 2.00 RED CELLS LEUKO REDUCED AS1 - 05/16/19 08:00 RED CELLS LEUKO REDUCED AS1 TRANSFUSED 05/16/19 0910 NRG Blood type T Indirect antibody screen panel - 05/16/19 08:00 WRISTBAND NUMBER [id number] NRG ABO+Rh group ON NRG Blood group antibody screen NEGATIVE NRG Capillary blood glucose measurement by glucometer (mass/volume) - 05/16/19 08:09 Capillary blood glucose measurement by glucometer (mass/volume) 195 mg/dL 70-110 Capillary blood glucose measurement by glucometer (mass/volume) - 05/16/19 12:01 Capillary blood glucose measurement by glucometer (mass/volume) 205 mg/dL 70-110 Capillary blood glucose measurement by glucometer (mass/volume) - 05/16/19 16:38 Capillary blood glucose measurement by glucometer (mass/volume) 171 mg/dL 70-110 Capillary blood glucose measurement by glucometer (mass/volume) - 05/16/19 20:41 Capillary blood glucose measurement by glucometer (mass/volume) 202 mg/dL 70-110 Capillary blood glucose measurement by glucometer (mass/volume) - 05/17/19 00:16 Capillary blood glucose measurement by glucometer (mass/volume) 204 mg/dL 70-110 Arterial blood gas measurement - 05/17/19 03:31 Blood pCO2 56 mm[Hg] 35-45 Blood pO2 89 mm[Hg] 79-93 Arterial blood bicarbonate measurement (moles/volume) 29 mmol/L 23-27 Arterial blood base excess by calculation 3.1 mmol/L -2.5-2.5 Arterial blood oxygen saturation measurement 98 % 94-100 * Inhaled oxygen flow rate 40% NRG Arterial blood pH measurement with patient temperature correction 7.33 7.37-7.43 Arterial blood carbon dioxide, total measurement (moles/volume) 30.2 mmol/L 21.0-31.0 Body site LT RADIAL NRG Assessment of wrist artery patency prior to arterial puncture ART LINE NRG Setting of ventilation mode YES NRG Measurement of body temperature 99.0 NRG Complete blood count (CBC) with automated white blood cell (WBC) differential - 05/17/19 03:31 Blood leukocytes automated count (number/volume) 7.7 10*3/uL 4.3-11.0 Blood erythrocytes automated count (number/volume) 2.53 10*6/uL 4.35-5.85 Venous blood hemoglobin measurement (mass/volume) 7.7 g/dL 13.3-17.7 Blood hematocrit (volume fraction) 25 % 40-54 Automated erythrocyte mean corpuscular volume 98 [foz_us] 80-99 Automated erythrocyte mean corpuscular hemoglobin (mass per erythrocyte) 30 pg 25-34 Automated erythrocyte mean corpuscular hemoglobin concentration measurement (mass/volume) 31 g/dL 32-36 Automated erythrocyte distribution width ratio 17.7 % 10.0- 14.5 Automated blood platelet count (count/volume) 122 10*3/uL 130-400 Automated blood platelet mean volume measurement 10.5 [foz_us] 7.4-10.4 Automated blood neutrophils/100 leukocytes 69 % 42-75 Automated blood lymphocytes/100 leukocytes 17 % 12-44 Blood monocytes/100 leukocytes 11 % 0-12 Automated blood eosinophils/100 leukocytes 2 % 0-10 Automated blood basophils/100 leukocytes 0 % 0-10 Blood neutrophils automated count (number/volume) 5.3 10*3 1.8-7.8 Blood lymphocytes automated count (number/volume) 1.3 10*3 1.0-4.0 Blood monocytes automated count (number/volume) 0.9 10*3 0.0- 1.0 Automated eosinophil count 0.2 10*3/uL 0.0-0.3 Automated blood basophil count (count/volume) 0.0 10*3/uL 0.0-0.1 Whole blood basic metabolic panel - 05/17/19 03:31 Serum or plasma sodium measurement (moles/volume) 141 mmol/L 135-145 Serum or plasma potassium measurement (moles/volume) 4.0 mmol/L 3.6-5.0 Serum or plasma chloride measurement (moles/volume) 106 mmol/L 98-107 Carbon dioxide 26 mmol/L 21-32 Serum or plasma anion gap determination (moles/volume) 9 mmol/L 5-14 Serum or plasma urea nitrogen measurement (mass/volume) 25 mg/dL 7-18 Serum or plasma creatinine measurement (mass/volume) 1.56 mg/dL 0.60-1.30 Serum or plasma urea nitrogen/creatinine mass ratio 16 NRG Serum or plasma creatinine measurement with calculation of estimated glomerular filtration rate 45 NRG Serum or plasma glucose measurement (mass/volume) 180 mg/dL 70-105 Serum or plasma calcium measurement (mass/volume) 7.7 mg/dL 8.5-10.1 Serum or plasma phosphate measurement (mass/volume) - 05/17/19 03:31 Serum or plasma phosphate measurement (mass/volume) 2.8 mg/dL 2.3-4.7 Magnesium - 05/17/19 03:31 Magnesium 1.8 mg/dL 1.8-2.4 Serum or plasma triglyceride measurement (mass/volume) - 05/17/19 03:31 Serum or plasma triglyceride measurement (mass/volume) 356 mg/dL <150 Blood lactic acid measurement (moles/volume) - 05/17/19 06:48 Blood lactic acid measurement (moles/volume) 1.00 mmol/L 0.50- 2.00 Capillary blood glucose measurement by glucometer (mass/volume) - 05/17/19 08:50 Capillary blood glucose measurement by glucometer (mass/volume) 288 mg/dL 70-110 Capillary blood glucose measurement by glucometer (mass/volume) - 05/17/19 11:58 Capillary blood glucose measurement by glucometer (mass/volume) 253 mg/dL 70-110 Capillary blood glucose measurement by glucometer (mass/volume) - 05/17/19 16:00 Capillary blood glucose measurement by glucometer (mass/volume) 231 mg/dL 70-110 Capillary blood glucose measurement by glucometer (mass/volume) - 06/18/19 13:15 Capillary blood glucose measurement by glucometer (mass/volume) 203 mg/dL 70-110 Capillary blood glucose measurement by glucometer (mass/volume) - 06/18/19 15:45 Capillary blood glucose measurement by glucometer (mass/volume) 228 mg/dL 70-110 Complete blood count (CBC) with automated white blood cell (WBC) differential - 06/18/19 16:42 Blood leukocytes automated count (number/volume) 8.1 10*3/uL 4.3-11.0 Blood erythrocytes automated count (number/volume) 3.21 10*6/uL 4.35-5.85 Venous blood hemoglobin measurement (mass/volume) 9.2 g/dL 13.3-17.7 Blood hematocrit (volume fraction) 30 % 40-54 Automated erythrocyte mean corpuscular volume 92 [foz_us] 80-99 Automated erythrocyte mean corpuscular hemoglobin (mass per erythrocyte) 29 pg 25-34 Automated erythrocyte mean corpuscular hemoglobin concentration measurement (mass/volume) 31 g/dL 32-36 Automated erythrocyte distribution width ratio 17.0 % 10.0- 14.5 Automated blood platelet count (count/volume) 200 10*3/uL 130-400 Automated blood platelet mean volume measurement 11.0 [foz_us] 7.4-10.4 Automated blood neutrophils/100 leukocytes 74 % 42-75 Automated blood lymphocytes/100 leukocytes 12 % 12-44 Blood monocytes/100 leukocytes 12 % 0-12 Automated blood eosinophils/100 leukocytes 1 % 0-10 Automated blood basophils/100 leukocytes 0 % 0-10 Blood neutrophils automated count (number/volume) 6.0 10*3 1.8-7.8 Blood lymphocytes automated count (number/volume) 0.9 10*3 1.0-4.0 Blood monocytes automated count (number/volume) 1.0 10*3 0.0- 1.0 Automated eosinophil count 0.1 10*3/uL 0.0-0.3 Automated blood basophil count (count/volume) 0.0 10*3/uL 0.0-0.1 Blood lactic acid measurement (moles/volume) - 06/18/19 16:42 Blood lactic acid measurement (moles/volume) 1.06 mmol/L 0.50- 2.00 Comprehensive metabolic panel - 06/18/19 16:42 Serum or plasma sodium measurement (moles/volume) 131 mmol/L 135-145 Serum or plasma potassium measurement (moles/volume) 4.5 mmol/L 3.6-5.0 Serum or plasma chloride measurement (moles/volume) 96 mmol/L 98-107 Carbon dioxide 27 mmol/L 21-32 Serum or plasma anion gap determination (moles/volume) 8 mmol/L 5-14 Serum or plasma urea nitrogen measurement (mass/volume) 27 mg/dL 7-18 Serum or plasma creatinine measurement (mass/volume) 1.37 mg/dL 0.60-1.30 Serum or plasma urea nitrogen/creatinine mass ratio 20 NRG Serum or plasma creatinine measurement with calculation of estimated glomerular filtration rate 52 NRG Serum or plasma glucose measurement (mass/volume) 214 mg/dL 70-105 Serum or plasma calcium measurement (mass/volume) 9.1 mg/dL 8.5-10.1 Serum or plasma total bilirubin measurement (mass/volume) 0.3 mg/dL 0.1-1.0 Serum or plasma alkaline phosphatase measurement (enzymatic activity/volume) 109 U/L 40-136 Serum or plasma aspartate aminotransferase measurement (enzymatic activity/volume) 38 U/L 5-34 Serum or plasma alanine aminotransferase measurement (enzymatic activity/volume) 19 U/L 0-55 Serum or plasma protein measurement (mass/volume) 7.1 g/dL 6.4-8.2 Serum or plasma albumin measurement (mass/volume) 3.3 g/dL 3.2-4.5 CALCIUM CORRECTED 9.7 mg/dL 8.5-10.1 Serum or plasma phosphate measurement (mass/volume) - 06/18/19 16:42 Serum or plasma phosphate measurement (mass/volume) 1.9 mg/dL 2.3-4.7 Magnesium - 06/18/19 16:42 Magnesium 1.1 mg/dL 1.8-2.4 Encounters ACCT No. Visit Date/Time Discharge Status Pt. Type Provider Facility Loc./Unit Complaint [id number] 04/23/2019 09:56:00 04/23/2019 23:59:00 DIS Outpatient Danilo Zen Ally [id number] 03/03/2019 14:53:00 03/03/2019 23:59:00 DIS Outpatient Paris Moreno [id number] 10/05/2018 08:45:00 10/05/2018 12:13:00 DIS Outpatient Yesica Soni [id number] 09/29/2018 12:48:00 09/29/2018 23:59:00 DIS Outpatient Yesica Soni [id number] 08/31/2018 11:05:00 08/31/2018 23:59:00 DIS Outpatient Paris Moreno [id number] 08/05/2018 10:32:00 08/05/2018 23:59:00 DIS Outpatient Paris Moreno [id number] 08/03/2018 18:25:00 08/04/2018 10:15:00 DIS Outpatient Josh [facility] [id number] 06/17/2018 12:34:00 07/31/2018 13:48:00 DIS Outpatient ARIADNA KAUFMAN [id number] 02/27/2018 09:16:00 06/02/2018 08:58:00 DIS Outpatient Andry Arroyo [id number] 05/25/2018 12:30:00 05/25/2018 23:59:00 DIS Outpatient Paris Moreno [id number] 02/05/2018 12:01:00 02/05/2018 23:59:00 DIS Outpatient Paris Moreno [id number] 09/17/2017 11:49:00 09/17/2017 23:59:00 DIS Outpatient Paris Moreno [id number] 11/25/2016 20:43:00 11/25/2016 22:40:00 [id number] 08/05/2018 12:40:14 Document Registration [id number] 02/24/2018 12:59:39 Document Registration [id number] 11/25/2016 22:10:53 Document Registration [id number] 05/14/2019 09:24:00 05/17/2019 16:38:00 DIS Inpatient LONGKAILEY BARRETT JASPER [facility] ICU CO2 RETENTION [id number] 02/02/2018 15:30:00 02/02/2018 23:59:59 CLS Preadmit AMANDEEP TOSCANO APRN [facility] RT SOB [id number] 02/09/2014 13:18:00 02/09/2014 00:01:00 DIS Outpatient ZHOU LYONS FACC, JONATHAN ALEXANDRA CCDS [facility] CR CABG [id number] 08/23/2013 13:35:00 08/24/2013 14:50:00 DIS Outpatient [id number] 06/18/2019 12:20:00 ACT Inpatient ETHAN BARRETT JASPER [facility] IRF DISUSE MYOPATHY [id number] 02/10/2014 11:00:00 Document Registration [id number] 02/09/2014 11:00:00 Document Registration
[2019-06-18] MEDS: QUEtiapine 25 MG (SEROquel) TAB IMMEDIATE RELEASE PO SCH (20:47)
[2019-06-18] MEDS: CIPROFLOXACIN 500 MG (CIPRO) TABLET PO SCH (20:47)
[2019-06-18] MEDS: meTOprolol TARTRATE 25 MG (LOPRESSOR) TABLET PO SCH (20:47)
[2019-06-18] MEDS ORDERED: CIPROFLOXACIN HCL 500 MG PO SCH (21:00)
[2019-06-18] MEDS ORDERED: NON-FORMULARY MEDICATION 1 EA EA (Quetiapine Fumarate (Seroquel) 50 MG) PO SCH (21:00)
[2019-06-18] MEDS ORDERED: NON-FORMULARY MEDICATION 1 EA EA (Sulfamethoxazole/Trimethoprim (Bactrim Ds Tablet) 1 TAB) PO SCH (21:00)
[2019-06-19] VITALS: BP 122/66
[2019-06-19] MEDS: RT-ALBUTEROL/IPRATROPIUM 3 ML (DUONEB) VIAL INH SCH ×4 (02:54→19:25)
[2019-06-19 03:55] VITALS: BP 128/60
[2019-06-19] MEDS: SILDENAFIL 20 MG (REVATIO) TAB NON-FORMULARY PO SCH ×3 (06:13→21:11)
[2019-06-19] MEDS: TRIM/SULFAMETH 160/800 (SEPTRA DS) TAB PO SCH (06:13)
[2019-06-19] MEDS: MULTIVIT W/MINERALS TAB (THERAGRAN M) PO SCH (06:13)
[2019-06-19] MEDS: BETHANECHOL 25 MG (URECHOLINE) TAB PO SCH ×4 (06:13→21:11)
[2019-06-19] MEDS: inSUlin ASPART (NovoLOG) 1 UNIT/0.01 ML (CHARGE PER UNIT) SC SCH ×4 (06:13→21:13)
[2019-06-19] MEDS: PANTOPRAZOLE 40 MG (PROTONIX) TAB PO SCH (06:13)
[2019-06-19 06:43] LABS: BASOPHILS % (AUTO) 1 % (0-10); EOSINOPHILS # (AUTO) 0.2 10^3/uL (0.0-0.3); EOSINOPHILS % (AUTO) 2 % (0-10); HEMATOCRIT 28 % (40-54); HEMOGLOBIN 8.5 G/DL (13.3-17.7); LYMPHOCYTES # (AUTO) 1.1 X 10^3 (1.0-4.0); LYMPHOCYTES % (AUTO) 16 % (12-44); MEAN CORPUSCULAR HEMOGLOBIN 28 PG (25-34); MEAN CORPUSCULAR HGB CONC 31 G/DL (32-36); MEAN CORPUSCULAR VOLUME 92 FL (80-99); MEAN PLATELET VOLUME 10.8 FL (7.4-10.4); MONOCYTES # (AUTO) 0.7 X 10^3 (0.0-1.0); MONOCYTES % (AUTO) 11 % (0-12); NEUTROPHILS # (AUTO) 4.7 X 10^3 (1.8-7.8); NEUTROPHILS % (AUTO) 71 % (42-75); PLATELET COUNT 198 10^3/uL (130-400); RED CELL DISTRIBUTION WIDTH 16.7 % (10.0-14.5); WHITE BLOOD COUNT 6.6 10^3/uL (4.3-11.0)
[2019-06-19 07:04] LABS: ALBUMIN 3.2 GM/DL (3.2-4.5); BILIRUBIN,TOTAL 0.3 MG/DL (0.1-1.0); CALCIUM 8.9 MG/DL (8.5-10.1); CREATININE SERUM 1.36 MG/DL (0.60-1.30); MAGNESIUM 1.8 MG/DL (1.8-2.4); PHOSPHORUS 4.2 MG/DL (2.3-4.7); TOTAL PROTEIN 6.7 GM/DL (6.4-8.2)
[2019-06-19 07:57] VITALS: BP 133/57
[2019-06-19] MEDS ORDERED: NON-FORMULARY MEDICATION 1 EA EA (Amlodipine Besylate 10 MG) PO SCH (09:00)
[2019-06-19] MEDS ORDERED: NON-FORMULARY MEDICATION 1 EA EA (Insulin Glargine,Hum.rec.anlog (Lantus Solostar) 10 UNIT SQ SCH (09:00)
[2019-06-19] MEDS ORDERED: THEOPHYLLINE ANHYDROUS 400 MG PO SCH (09:00)
--- NOTE | 2019-06-19 09:01 | Pulmonary Progress Note ---
Subjective Time Seen by a Provider: 07:08 Subjective/Events-last exam Denies SOB or productive cough Sepsis Event Evaluation Height, Weight, BMI Height: 5'10.00" Weight: 265lbs. 0.0oz. 120.105246tl; 38.0 BMI Method:Stated Focused Exam Lactate Level 06/18/19 16:42: Lactic Acid Level 1.06 Exam Exam Vital Signs Date Time Temp Pulse Resp B/P (MAP) Pulse Ox O2 Delivery O2 Flow Rate FiO2 06/19/19 07:57 98.0 77 20 133/57 (82) 96 Nasal Cannula 3.00 06/19/19 03:55 97.3 79 20 128/60 (82) 91 Nasal Cannula 3.00 06/19/19 02:54 92 Nasal Cannula 3.00 06/19/19 00:00 98.0 70 18 122/66 (84) 92 Nasal Cannula 3.00 06/18/19 21:00 93 Nasal Cannula 3.00 06/18/19 19:52 90 Nasal Cannula 3.00 06/18/19 19:30 98.8 97 16 137/61 (86) 95 Nasal Cannula 3.00 06/18/19 18:00 99.3 86 18 158/62 (94) 95 Nasal Cannula 3.00 06/18/19 15:28 92 Nasal Cannula 2.00 06/18/19 12:20 92 Room Air 06/18/19 12:20 92 Room Air I & O 06/19/19 07:00 Intake Total 1150 ml Output Total 1300 ml Balance -150 ml Height & Weight Height: 5'10.00" Weight: 265lbs. 0.0oz. 120.895032cl; 38.0 BMI Method:Stated General Appearance: No Apparent Distress, WD/WN, Chronically ill, Obese HEENT: PERRL/EOMI, Normal ENT Inspection, Pharynx Normal, Moist Mucous Membranes Neck: Full Range of Motion, Normal Inspection, Non Tender, Supple Respiratory: Chest Non Tender, Lungs Clear, Normal Breath Sounds, No Accessory Muscle Use, No Respiratory Distress Cardiovascular: Regular Rate, Rhythm, No Edema, No Gallop, No JVD, No Murmur Gastrointestinal: normal bowel sounds, non tender; No hepatomegaly, No spleenomegaly Extremity: Normal Capillary Refill, Normal Inspection, Normal Range of Motion, Non Tender, No Calf Tenderness, No Pedal Edema Neurologic/Psychiatric: Alert, Oriented x3, No Motor/Sensory Deficits, lockstitch hemmer II- XII Norm as Tested, Depressed Affect Skin: Normal Color, Warm/Dry Lymphatic: No Adenopathy Results Lab Laboratory Tests 06/18/19 16:42 06/19/19 06:35 Assessment/Plan Assessment/Plan Hypoxia probably secondary to COPD -Monitor Dehiscence of lumbar surgical wound -Wound care following Morbid obesity with OHS Dural leak with meningeal-cutaneous fistula. Anemia -Monitor DM Tobacco use Debility ANIYA DUDLEY DO Jun 19, 2019 09:01
--- NOTE | 2019-06-19 09:23 | NUR ---
PATIENT IS IN BED LAYING ON HIS RIGHT SIDE; HE STATES THAT THE NEW MEDICATION THEY PUT ON HIS BACK IS BURNING REALLY BAD; RN WAS NOTIFIED OF THIS.
--- NOTE | 2019-06-19 09:59 | NUR ---
Dr. Zen Carrasco has been in, assessed back incision, irrigated w SNS, gently debrided, removed sutures, requested order for wound vac. Nsg Biology Professor notified. Dr. Carrasco instructed pt re: treatment, IV ATB's, wound vac, surgery, answered questions. Pt is very hesitant about having another surgery for fear of being on the ventilator.
--- NOTE | 2019-06-19 10:14 | NUR ---
Dr. Carrasco states that pt can work w therapy, be OOB, & may dc NPO status after wound vac applied, & return to diet as previously ordered.
--- NOTE | 2019-06-19 10:42 | Consultation ---
History of Present Illness History of Present Illness Patient Consulted On(jose ramon/time) 06/19/19 10:32 Date Seen by Provider: Jun 19, 2019 Time Seen by Provider: 10:32 Reason for Visit: S/P spinal fusion, rehab History of Present Illness Mr. Meehan is a pleasant 68 y/o male patient of mine who underwent a successful spinal fusion about 4-5 weeks ago a [facility]. He was transferred to [facility] and later [facility] secondary to acute respiratory failure. He was extubated a few days ago after being on the vent for over 3 weeks and transferred to the [facility] inpatient rehab unit. Upon arrival, it was noted that the patient had significant surgical wound issue, concern for infection and possible CSF leak. The patient is also being treated for a G neg UTI. He denies postural HAs, n/v, f/c/ns, neck pain or additional symptoms of CSF leak. He appears to be otherwise doing OK. I was co nsulted to evaluate the patient's wound. Allergies and Home Medications Allergies Coded Allergies: No Known Drug Allergies (Verified , 05/17/19) Home Medications Acetaminophen 325 Mg Tablet, 650 MG PO Q6H PRN for PAIN-MILD OR TEMPATURE, (Reported) Amlodipine Besylate 10 Mg Tablet, 10 MG PO DAILY, (Reported) Ciprofloxacin HCl 500 Mg Tablet, 500 MG PO BID, (Reported) START DATE 06-15-19 STOP DATE 06-21-19 Diclofenac Sodium 100 Gm Gel..gram., TP TID, (Reported) APPLY TO BILATERAL LEGS AND FEET Enoxaparin Sodium 40 Mg/0.4 Ml Syringe, 40 MG SQ 1700, (Reported) Hydrocodone/Acetaminophen 1 Each Tablet, 1 TAB PO Q6H PRN for PAIN-MODERATE, (Reported) Insulin Glargine,Hum.rec.anlog 100 Unit/1 Ml Insuln.pen, 10 UNIT SQ DAILY, (Reported) Insulin Lispro 100 Unit/1 Ml Vial, 0-14 UNIT SQ ACHS, (Reported) 70-140 - 0 UNITS 141-180 = 6 UNITS 181-220 - 8 UNITS 221-260 = 10 UNITS 261- 300 = 12 UNITS 301-340 = 14 UNITS 341-380 = 16 UNITS 381-400 = 18 UNITS IF BS GREATER THAN 400 NOTIFY PROVIDER Ipratropium/Albuterol Sulfate 3 Ml Ampul.neb, 3 ML NEB Q6H, (Reported) Metoprolol Tartrate 25 Mg Tablet, 25 MG PO BID, (Reported) Multivitamin with Minerals 1 Each Tablet, 1 TAB PO DAILY, (Reported) Mupirocin 22 Gm Oint...g., TP TID, (Reported) 7 DAY THERAPY START DATE 06-17-19 END DATE 06-23-19 Naloxone HCl 0.4 Mg/Ml Soln, 0.4 MG IV UD PRN for NARCOTIC INDUCED RESP DEPRESSI, (Reported) Ondansetron HCl 4 Mg Tab, 4 MG PO Q6H PRN for NAUSEA/VOMITING-1ST LINE, (Reported) Pantoprazole Sodium 40 Mg Tablet.dr, 40 MG PO DAILY, (Reported) Quetiapine Fumarate 50 Mg Tablet, 50 MG PO HS, (Reported) Roflumilast 500 Mcg Tablet, 500 MCG PO 1400, (Reported) Sennosides 8.6 Mg Tablet, 8.6 MG PO DAILY PRN for CONSTIPATION-5TH LINE, (Reported) Sildenafil Citrate 20 Mg Tablet, 20 MG PO Q8H, (Reported) Sulfamethoxazole/Trimethoprim 1 Each Tablet, 1 TAB PO BID, (Reported) START DATE 06-15-19 STOP DATE 06-21-19 Tamsulosin HCl 0.4 Mg Cap, 0.8 MG PO DAILY, (Reported) Theophylline Anhydrous 100 Mg Tab.er.12h, 400 MG PO DAILY, (Reported) Patient Home Medication List Home Medication List Reviewed: Yes Past Fqghlgh-Mpiwew-Ublypp Hx Past Med/Social Hx: Reviewed Nursing Past Med/Soc Hx, Reviewed and Corrections made Patient Social History Alcohol Use: Denies Use Recreational Drug Use: No Smoking Status: Current Everyday Smoker Recent Foreign Travel: No Contact w/Someone Who Travel: No Recent Infectious Disease Expo: No Recent Hopitalizations: Yes Immunizations Up To Date Tetanus Booster (TDap): More than 5yrs Seasonal Allergies Seasonal Allergies: No Past Medical History Surgeries: Yes (recent back surgery) CABG, Orthopedic Respiratory: Yes Sleep Apnea, COPD Currently Using CPAP: Yes Currently Using BIPAP: No Cardiac: Yes (patient states hx:SVT) Chronic Edema/Swelling, Coronary Artery Disease, High Cholesterol, Hypertension, Peripheral Vascular Neurological: No Neuropathy Genitourinary: Yes Benign Prostatic Hyperpl, Bladder Infection Gastrointestinal: No Gastroesophageal Reflux, Chronic Constipation Musculoskeletal: No Degenerate Disk Disease, Arthritis, Chronic Back Pain Endocrine: Yes Diabetes, Non-Insulin dep Are Your Blood Sugars Over 250: Yes HEENT: No Cancer: No Psychosocial: No Integumentary: No Blood Disorders: No Adverse Reaction/Blood Tranf: No Family Medical History No Pertinent Family Hx Review of Systems-General Constitutional: no symptoms reported EENTM: no symptoms reported Respiratory: no symptoms reported Cardiovascular: no symptoms reported Gastrointestinal: no symptoms reported Genitourinary: see HPI Musculoskeletal: no symptoms reported Skin: no symptoms reported Psychiatric/Neurological: No Symptoms Reported Physical Exam-General Problems Physical Exam Vital Signs Vital Signs - First Documented 06/18/19 06/18/19 15:28 18:00 Temp 99.3 Pulse 86 Resp 18 B/P (MAP) 158/62 (94) O2 Flow Rate 2.00 Capillary Refill : General Appearance: WD/WN, no apparent distress Eyes: Bilateral Eye PERRL, Bilateral Eye EOMI HEENT: PERRL/EOMI, normal ENT inspection Neck: non-tender, full range of motion, supple Respiratory: no respiratory distress, no accessory muscle use Cardiovascular: normal peripheral pulses, regular rate, rhythm, no edema Peripheral Pulses: 2+ Dorsalis Pedis (R), 2+ Left Dors-Pedis (L) Gastrointestinal: non tender, soft Back: other (posterior lumbar surgical wound with significant dehiscence involving the cranial 1/3 of the wound, distally is a mature well healed scar, moderate serosanguinous drainage from the wound, no evidence of CSF leakage, no erythema or gross purulence noted) Assessment/Plan Assessment/Plan Admission Diagnosis/Plan 68 y/o male about 4-5 weeks out s/p lumbar fusion. He has developed a post-op wound infection/dehiscence. No evidence of CSF leak. I performed a small bedside irrigation/debridement of the surgical wound today. The wound meets the indication for formal surgical I&D in the OR. However, given the patient's substantial surgical risk as evidenced by his recent history, I have recommended nonsurgical management at this time. I have recommended application of a wound vac and treatment with empiric IV antibiotics. Recommend the WV be changed 3X/week per WC service. Will follow along with the medical/WC team and be available to intervene as clinically indicated should nonsurgical treatment fail to provide an acceptable outcome. Clinical Quality Measures DVT/VTE Risk/Contraindication: Risk Factor Score Per Nursin RFS Level Per Nursing on Admit: 4+=Very High Vital Signs Vitals Signs Temperature: 98.0, Source: Temporal, Heart Rate: 77, Respiratory Rate: 20, BP: 133/57, Pulse Oximetry: 91 Labs Laboratory Tests 06/18/19 16:42 06/19/19 06:35 OTILIO PEREIRA DO Jun 19, 2019 10:42
[2019-06-19] MEDS: HYDROcodone/APAP 5 MG/325 MG (LORTAB) TAB PO PRN ×2 (11:24→21:11)
[2019-06-19] MEDS: THEOPHYLLINE 400 MG PO SCH (11:25)
[2019-06-19] MEDS ORDERED: THEOPHYLLINE ER 400 MG TAB (THEO-24) PO ONE (11:25)
[2019-06-19] MEDS: DICLOFENAC 1% GEL 100 GM (VOLTAREN) TUBE TOP SCH ×4 (11:31→21:12)
--- NOTE | 2019-06-19 11:32 | NUR ---
Pt took pain pill w water & ate 2 crackers. Pt declined offer to eat lunch now.
--- NOTE | 2019-06-19 11:47 | NUR ---
Pt inct of lg loose bm in bed, Ax2 to clean up, provide skin care, & reposition
[2019-06-19 12:00] VITALS: BP 105/63
[2019-06-19] MEDS: CIPROFLOXACIN 500 MG (CIPRO) TABLET PO SCH (12:40)
[2019-06-19] MEDS: amLODIPine 10 MG (NORVASC) TAB PO SCH (12:41)
[2019-06-19] MEDS: TAMSULOSIN 0.4 MG (FLOMAX) CAP PO SCH (12:41)
[2019-06-19] MEDS: meTOprolol TARTRATE 25 MG (LOPRESSOR) TABLET PO SCH ×2 (12:42→21:10)
--- NOTE | 2019-06-19 12:54 | PM&R Progress Note ---
Subjective HPI/CC On Admission Date Seen by Provider: Jun 19, 2019 Time Seen by Provider: 11:30 CC: Critical illness debility HPI: This is a 68-year-old white male clinic patient of Dr. 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 Received report from Dr. Montesinos at [facility] in [place]. Patient was admitted there after difficulty weaning off the ventilator after he was intubated after failed noninvasive ventilator support after he was transferred from [facility] after his spinal surgery to [facility]. He remained on the ventilator for 3 weeks has some vocal cord dysfunction due to the long intubation status and most recently having urinary retention after Alves catheter was discontinued and currently has Klebsiella UTI maintained on Bactrim and Cipro double coverage because of such a significant organism. He had some significant hallucinations last week but that has been resolved. Patient currently remains on 2 L by nasal cannula of oxygen receives nebulizer treatments of DuoNeb every 6 hours and uses his home CPAP machine. His prior level of functioning was independent of ADLs and ambulation. I reviewed all of his current medications and doctor of pharmacy here at the hospital has confirmed accuracy and all those have been continued. He does have a PICC line in his right upper arm. Upon review of the history and physical the following information was obtained: Past medical history: diabetes mellitus on oral therapy, obstructive sleep apnea, COPD with chronic respiratory failure, polycythemia due to chronic respiratory failure, tobacco use, chronic low back pain, peripheral neuropathy, PVD, CAD previous bypass surgery, thrombocytopenia, morbid obesity with hypoventilation syndrome, congestive heart failure with acute on chronic diastolic type with volume overload at admission to [facility], hyperlipidemia, hypertension, carpal tunnel syndrome, severe DJD of the right knee. He also has a history of SVT. Subjective/Events-last exam Spoke with Dr. Ramos yesterday and he was concerned it was a dural leak and spinal fluid was produced from the wound so I did speak with Dr. Zen Carrasco his spine surgeon and he assessed in today but the fluid was just from the wound i tself and was not a dural leak and had no symptoms of such so that was debridement at the bedside and wound VAC placed and will be given IV antibiotics of vancomycin and meropenem due to recent extensive antibiotic use and facility acquired status and we will discontinue Cipro and Bactrim he was on for the Klebsiella UTI. Appreciate urology help with urinary retention Had a nosebleed today so we'll humidify oxygen Appreciate Dr. Ahn's consultation also Patient is a very anxious individual so will initiate Ativan is 0.25 MG by mouth every 4 hours when necessary PICC line is now working after that was worked on by the nurse Pain is pretty well controlled Bowels are moving now every day Conferred with senior statistical programmer therapy notes Conferred with multiple physicians Review of Systems General: Fatigue Pulmonary: Dyspnea Musculoskeletal: back pain Neurological: Weakness Focused Exam Lactate Level 06/18/19 16:42: Lactic Acid Level 1.06 Objective Exam Vital Signs Vital Signs Date Time Temp Pulse Resp B/P (MAP) Pulse Ox O2 Delivery O2 Flow Rate FiO2 06/19/19 14:25 92 Nasal Cannula 3.00 06/19/19 12:00 98.4 83 20 105/63 (77) Capillary Refill : General Appearance: No Apparent Distress, WD/WN, Chronically ill, Obese HEENT: PERRL/EOMI, Normal ENT Inspection, Pharynx Normal, Moist Mucous Membranes Neck: Full Range of Motion, Normal Inspection, Non Tender, Supple Respiratory: Chest Non Tender, Lungs Clear, Normal Breath Sounds, No Accessory Muscle Use, No Respiratory Distress Cardiovascular: Regular Rate, Rhythm, No Edema, No Gallop, No JVD, No Murmur Gastrointestinal: Normal Bowel Sounds, No Organomegaly, No Pulsatile Mass, Non Tender, Soft Back: Normal Inspection, No CVA Tenderness, Decreased Range of Motion Extremity: Normal Capillary Refill, Normal Inspection, Normal Range of Motion, Non Tender, No Calf Tenderness, No Pedal Edema Neurologic/Psychiatric: Alert, Oriented x3, No Motor/Sensory Deficits, search manager II- XII Norm as Tested, Depressed Affect Skin: Normal Color, Warm/Dry, Other (Review picture of the wound with dehiscence but no erythema but clear drainage noted) Lymphatic: No Adenopathy Results/Procedures Lab Laboratory Tests 06/18/19 16:42 06/19/19 06:35 Patient resulted labs reviewed. FIM Transfers Therapy Code Descriptions/Definitions Functional [place] Measure: 0=Not Assessed/NA 4=Minimal Assistance 1=Total Assistance 5=Supervision or Setup 2=Maximal Assistance 6=Modified [place] 3=Moderate Assistance 7=Complete [place] Therapy Quality Codes: 6 Independent with activity with or without an assistive device 5 Patient requires set up or clean up by helper. Patient completes activity by themselves 4 Supervision or touching assist (CGA). [place] provide cues , steadying assist 3 The helper provides less than half the effort to complete the activity 2 The helper provides more than half the effort to complete the activity 1 Dependent. The helper does all the effort to complete an activity 7 Patient refused to complete or attempt activity 9 The patient did not perform the activity before the current illness or injury 88 Not attempted due to Medical conditions or safety concerns Transfers (B, C, W/C) (FIM): 2 Scootin Rollin Roll Left to Right (QC): 4 Supine to/from Sit: 4 Sit to/from Stand: 2 Sit to Lying (QC): 3 Sit to Stand (QC): 2 Chair/Tqk-hw-Qptet Xfer(QC): 2 Bed to/from Chair: 2 Car Transfer (QC): 2 Gait Training Does the Patient Walk?: No and Walking Goal IS indicated Wheelchair Training Does the Pt Use a Wheelchair?: Yes Wheelchair (FIM): 1 Distance: 20' Wheelchair Level of Assist: 4 Type of Wheelchair: Manual Mental Status/Objective Comprehension: 7 Expression: 7 Social Interaction: 7 Problem Solvin Memory: 7 ADL-Treatment Feedin (set up) Eating (QC): 5 Groomin Oral Hygiene (QC): 4 Bathin Bathing Location: L Arm, R Arm, Chest, Abdomen Shower/Bathe Self (QC): 2 Upper Extremity Dressin Upper Body Dressing (QC): 3 Lower Extremity Dressin (will need adaptive equipment training in future sessions) Lower Body Dressing (QC): 1 On/Off Footwear (QC): 1 (total assist to doff/don socks.) Toiletin Toileting Hygiene (QC): 1 Toilet/Commode Transfer: 2 Toilet Transfer (QC): 2 Shower: 0 Assessment/Plan Assessment and Plan Assess & Plan/Chief Complaint Assessment: (1) Myopathy (2) COPD (chronic obstructive pulmonary disease) (3) Respiratory failure, acute and chronic (4) Polycythemia (5) Tobacco use (6) Back pain (7) Neuropathy (8) PVD (peripheral vascular disease) (9) Hx of CABG (10) Obesity hypoventilation syndrome (11) Hypertension (12) Renal insufficiency (13) Hyperlipemia (14) Arthritis of right knee (15) Hx of supraventricular tachycardia (16) Obesity (17) Diabetes mellitus (18) SIDNEY on CPAP (19) CO2 narcosis (20) CAD (coronary artery disease) (21) Status post lumbar spine surgery for decompression of spinal cord (22) UTI Klebsiella s/p Bactrim and Cipro then DC when added Jorge and Vanc due to wound (23) Anxiety (24) Wound dehiscence requiring bedside debridement and placement of wound vac by Dr Carrasco 06/19/19 Plan: Drs Malini, Anabelle, Rachel, Danilo are appreciated Abx changed to Jorge and Vanc for wound dehiscence and DC Cipro and Bactrim Check labs in am IRF protocol Pain control Monitor closely (1) Myopathy (2) Postoperative wound dehiscence (3) Wound drainage (4) CO2 retention (5) Hyperkalemia (6) Renal failure (7) Elevated brain natriuretic peptide (BNP) level (8) Clot retention of urine (9) COPD (chronic obstructive pulmonary disease) (10) Polycythemia (11) Diabetes mellitus (12) Back pain (13) CAD (coronary artery disease) (14) Hyperlipemia (15) Neuropathy (16) Renal insufficiency (17) PVD (peripheral vascular disease) (18) Hypertension (19) Obesity (20) Respiratory failure, acute and chronic (21) Arthritis of right knee (22) Obesity hypoventilation syndrome (23) CO2 narcosis (24) SIDNEY on CPAP (25) Hx of supraventricular tachycardia (26) Decubitus ulcer (27) Urinary retention (28) BPH (benign prostatic hyperplasia) (29) UTI due to Klebsiella species (30) Hx of CABG (31) Status post lumbar spine surgery for decompression of spinal cord (32) Tobacco use JASPER LONG DO Jun 19, 2019 12:54
--- NOTE | 2019-06-19 12:54 | Individualized Plan of Care ---
Individualized Plan of Care Rehab Nursing IPOC Order Admission Date Jun 18, 2019 at 12:20 Current Orders Orders Admission Order(Inpt,Obs,Sdc) (06/18/19 11:05) Vital Signs: Per Unit Policy ( ,16,00 (06/18/19 11:05) [employer]-Inpt Rehab Con (06/18/19 11:05) Rehab Nursing Orders-Ipoc (06/18/19 11:05) Physical Therapy Rehab Orders (06/18/19 11:05) Occupational Therapy Rehab Ord (06/18/19 11:05) Speech Therapy Rehab Orders (06/18/19 11:05) Precautions (Aru) (06/18/19 11:05) Weekly Weight (Lbs) WEEK (06/18/19 11:05) Rehab-Intensity Of Therapy (06/18/19 11:05) Initiate Admission Nursing Pro .admission (06/18/19 11:05) Consult Urology (06/18/19 11:05) Consult Pulmonology (06/18/19 11:05) Cho 60g/M 1snack (16-2000 Giorgio) (06/18/19 Lunch) Acetaminophen Tablet/Caplet (Tylenol T (06/18/19 13:15) Albuterol/Ipra Inhalation Soln (Duoneb I (06/18/19 15:00) Metoprolol Tartrate (Ir) Tab (Lopressor (06/18/19 21:00) Pantoprazole Tablet (Protonix Tablet) (06/19/19 07:00) Roflumilast Tablet (Daliresp Tablet) (06/18/19 14:00) Tamsulosin Capsule (Flomax Capsule) (06/19/19 09:00) (Nf) Amlodipine Besylate (06/19/19 09:00) (Nf) Ciprofloxacin Hcl (Cipro) (06/18/19 21:00) (Nf) Enoxaparin Sodium (Lovenox) (06/18/19 17:00) (Nf) Hydrocodone/Acetaminophen (Hydrocod (06/18/19 13:15) (Nf) Insulin Glargine,Hum.Rec.Anlog (Jeet (06/19/19 09:00) (Nf) Insulin Lispro (06/18/19 16:00) (Nf) Ondansetron Hcl (Zofran) (06/18/19 13:15) (Nf) Quetiapine Fumarate (Seroquel) (06/18/19 21:00) (Nf) Sennosides (Senna) (06/18/19 13:15) (Nf) Sildenafil Citrate (Sildenafil) (06/18/19 13:15) (Nf) Sulfamethoxazole/Trimethoprim (Bact (06/18/19 21:00) (Nf) Theophylline Anhydrous (06/19/19 09:00) Svn Small Volume Nebulizer (06/18/19 13:04) Therapeutic Multivitamin Tab (Vitamins, (06/19/19 07:00) Naloxone Injection (Narcan Injection) (06/18/19 13:15) Accucheck Achs ACHS (06/18/19 13:07) Insulin Aspart (Novolog) (Novolog (Charg (06/18/19 16:00) Ondansetron Oral Dissolve Tab (Zofran (06/18/19 13:30) Amlodipine Tablet (Norvasc Tablet) (06/19/19 09:00) Quetiapine Immediate Release (Seroquel I (06/18/19 21:00) Enoxaparin Injection (Lovenox Injection) (06/18/19 17:00) Sennosides Tablet (Senokot Tablet) (06/18/19 14:00) Hydrocodone/Apap 5/325 Tablet (Lortab 5 (06/18/19 14:00) Sulfamethoxazole/Trimet Ds Tab (Bactrim (06/18/19 17:00) Ciprofloxacin Tablet (Cipro Tablet) (06/18/19 21:00) Insulin Determir (Per Unit) (Levemir (Pe (06/18/19 21:00) Patient Visit (06/18/19 ) Pt Eval Moderate Complexity (06/18/19 ) Functional Activities, Ea 15 (06/18/19 ) Sildenafil Tablet (Non-Form) (Revatio Ta (06/18/19 14:30) Bethanechol Tablet (Urecholine Tablet) (06/18/19 16:00) Catheter(Urinary) Insert & Ass 03,15 (06/18/19 15:41) Cbc With Automated Diff (06/18/19 16:20) Blood Culture (06/18/19 16:20) Lactic Acid Analyzer (06/18/19 16:20) Comprehensive Metabolic Panel (06/18/19 16:20) Magnesium (06/18/19 16:20) Phosphorus (06/18/19 16:20) Diclofenac 1% Gel (Voltaren 1% Gel) (06/18/19 17:00) Lidocaine 2% (Urojet) (Xylocaine Urojet) (06/18/19 16:30) Patient Visit (06/18/19 ) Speech Sound Lang Comp (06/18/19 ) Lidocaine 2% (Urojet) (Xylocaine Urojet) (06/18/19 16:46) Chest 1 View, Ap/Pa Only (06/18/19 17:59) Alteplase (Cathflo) Injection (Cathflo (06/18/19 18:45) Magnesium 1 Gm/100 Ml Ivpb (Magnesium Cardona (06/18/19 18:45) Sodium Phosphate Inj (Sodium Phosphate I (06/18/19 18:45) Magnesium (06/19/19 05:00) Phosphorus (06/19/19 05:00) Consult Wound Care Physician (06/18/19 18:45) Advanced Wound Care Dressing O Q4H (06/18/19 18:48) (Nf) Theophylline Anhydrous (06/19/19 09:00) Consult Physician (06/18/19 19:14) Consult Physician (06/18/19 19:14) Ambulate 08,12,20 (06/18/19 20:07) Sequential Compression Device 08,20 (06/18/19 20:07) Dvt/Vte Risk - Notifiy Physici 08 (06/18/19 20:07) Cbc With Automated Diff (06/19/19 06:00) Comprehensive Metabolic Panel (06/19/19 06:00) Rehab Nursing Orders-Ipoc (06/19/19 ) Catheter(Urinary) Discontinue (06/19/19 10:03) Irf Req Eval/Acute Rehab (06/19/19 ) Cho 60g/M 1snack (16-2000 Giorgio) (06/19/19 Lunch) Request Pt Additional Orders (06/19/19 11:30) Wound V.A.C Application Ord/In .APPLICATION ORDER (06/19/19 11:32) Vancomycin Injection (Vancomycin Injecti (06/19/19 13:00) Meropenem (Merrem 1000 Mg) (06/19/19 13:00) Lorazepam Tablet (Ativan Tablet) (06/19/19 13:15) Patient Visit (06/19/19 ) Exercise Therap, Ea 15 Min (06/19/19 ) Sodium Chloride Flush (Catheter Flush Sy (06/19/19 13:30) Sodium Chloride Flush (Catheter Flush Sy (06/19/19 14:00) Vancomycin Injection (Vancomycin Injecti (06/19/19 13:30) Vancomycin Injection (Vancomycin Injecti (06/20/19 01:00) Trough Order (Trough Order-Pharmacy Orde (06/21/19 00:00) Vancomycin,Trough (06/21/19 00:00) Meropenem (Merrem 500 Mg) (06/19/19 13:30) Cbc With Automated Diff (06/20/19 06:00) Comprehensive Metabolic Panel (06/20/19 06:00) Rt Request For Service (06/19/19 14:21) Rehab Nursing Orders: Ongoing Assess. of Cognitive Status, Ongoing Assess. of Function Status, Bladder Management, Bladder Scan, Bladder Training, Bowel Manag ement, Bowel Training, Disease Management & Educaiton, DVT Prophylaxis, Fall Prevention, Fluid/Electrolyte/Nutrition Mgmt, Infection Prevention, Medication Management & Education, Management of Risks & Complications, Management of Skin Intergrity, Nutrition Management, Pain Management, Patient/Family Support, Safety Management, Wound Management Intensity of Therapy to be met Patient to be seen: Min.3h per day/5 of 7d PT IPOC Problem List: Activity Tolerance, Functional Strength, Safety, Balance, Gait, Transfer, Bed Mobility, ROM Treatment Plan: Continue Plan of Care Bed Mobility, Concurrent Therapy, Education, Functional Activity Leo, Functional Strength, Group Therapy, Gait, Safety, Therapeutic Exercise, Transfers Treatment Duration: Jul 09, 2019 Frequency: At least 5 of 7 days/Wk (IRF) Estimated Hrs Per Day: 1.5 hours per day OT IPOC Problems: Decreased Activ Tolerance, Decreased UE Strength, Dependent Transfers, Impaired Funct Balance, Impaired I ADL's, Impaired Self-Care Skills OT Treatment, Training and Edu: Yes Plan of Care: ADL Retraining, Functional Mobility, Group Exercise/Act as Ind, UE Funct Exercise/Act Treatment Duration: Jul 09, 2019 Frequency: At least 5 of 7 days/Wk (IRF) Estimated Hrs Per Day: 1.[address] IPOC Speech Therapy Treatment Plan: Discontinue ST Treatment Duration: Jun 18, 2019 Frequency: 1 time per week Estimated Hrs Per Day: .25 hour per day [employer]/Case Mgmt [employer]/Case Managemen: Discharge Planning Dietitian/Revenue Settlements Administrator Dietitian/Revenue Settlements Administrator to monitor nutritional status and make changes and/or recommendations as needed and work with speech pathology on dietary upgrades as the occur. Physician IPOC Medical Issues being managed closely and that require the 24 hour availability of a physician: Patient now with surgical wound dehiscence requiring IV antibiotics with PICC line in addition to monitoring blood pressure, lung disease, oxygen dependent and severely debilitated state complicated with anxiety. Medical Issues: Bowel/Bladder Function, DVT Prophylaxis, Falls Precautions, Fluid/Electrolyte/Nutrition Balance, Infection Protection, Pain Management, Wound Care Brief Synthesis of Preadmission Screen, Post-Admission Evaluation, and Therapy Evaluations: Physical therapy will focus on severe debility and work on muscle strengthening and ambulation Occupational therapy will work on regaining independence and ADL activity Medical Prognosis: Good Anticipated Length of Stay: 14 days JASPER LONG DO Jun 19, 2019 12:54
[2019-06-19] MEDS ORDERED: VANCOMYCIN INJECTION 0.1 MG in NS (IVPB) 250 ML IV SCH (13:00)
[2019-06-19] MEDS ORDERED: MEROPENEM 1,000 MG in WATER (STERILE) FOR INJECTION 20 ML IV SCH (13:00)
[2019-06-19] MEDS ORDERED: VANCOMYCIN 2000 MG/NS 500 ML IVPB IV NR ×2 (13:30)
--- NOTE | 2019-06-19 13:55 | Physical Therapy Daily Note ---
PT Daily Note-Current Subjective Pt resting on his (R) side. Pt shakes head "no" upon my entering room. Pt says he has been wrestled all around with the wound vac placement and requests to allow his to rest. Pt agrees to ther ex in bed. Pain rated 5-6/10 in LB. Mental Status Patient Orientation: Person, Place, Situation Transfers Therapy Code Descriptions/Definitions Functional [place] Measure: 0=Not Assessed/NA 4=Minimal Assistance 1=Total Assistance 5=Supervision or Setup 2=Maximal Assistance 6=Modified Z[place]ala 3=Moderate Assistance 7=Complete Z[place]ala Therapy Quality Codes: 6 Independent with activity with or without an assistive device 5 Patient requires set up or clean up by helper. Patient completes activity by themselves 4 Supervision or touching assist (CGA). [place] provide cues , steadying assist 3 The helper provides less than half the effort to complete the activity 2 The helper provides more than half the effort to complete the activity 1 Dependent. The helper does all the effort to complete an activity 7 Patient refused to complete or attempt activity 9 The patient did not perform the activity before the current illness or injury 88 Not attempted due to Medical conditions or safety concerns Treatments Ther ex: Manual resistance applied to LE all planes: (R) AP, (B) heel slides, hip abd, hip add, SAQ, knee flexion. Pt instructed in Transversus Abdominis tr aining 5 x 10. Assessment Current Status: Fair Progress Pt strength graded (R) LE grossly 4/5 and (L) LE hip grossly 4/5, (L) knee grossly 4/5, (L) ankle 1+/5. Pt chasity well. No complaints of pain voiced with resistance applied during ther ex, pt indicated he felt better post ther ex. Pt verbalized understand of TA training and plans to continue practicing and moving his legs in bed today and tomorrow. Pt resting with all needs met, call light in reach post therapy. PT Short Term Goals Short Term Goals Time Frame: Jun 25, 2019 Transfers (B,C,W/C) (FIM): 3 Gait (FIM): 1 Gait Distance Comment: 5' Gait Level of Assist: 3 Gait Assistive Device: FWW Wheelchair Distance: 20' PT Irs Agent Goals Irs Agent Goals PT Irs Agent Goals Time Frame: Jul 09, 2019 Transfers (B,C,W/C) (FIM): 4 Sit to Lying (QC): 4 Lying-Sitting on Side/Bed(QC): 4 Sit to Stand (QC): 3 Rollin Roll Left to Right (QC): 4 Chair/Wff-et-Bhbxs Xfer(QC): 3 Car Transfer (QC): 3 Gait (FIM): 1 Distance: 20' Walk 10 feet (QC): 3 Walk 10ft-Uneven Surface(QC): 3 Gait Level of Assist: 4 Gait Assistive Device: FWW Wheelchair (FIM): 6 Distance: 150' Wheelchair Level of Assist: 5 Wheel 50 feet with 2 turns (QC: 4 PT Plan Treatment/Plan Treatment Plan: Continue Plan of Care Treatment Plan: Bed Mobility, Concurrent Therapy, Education, Functional Activity Leo, Functional Strength, Group Therapy, Gait, Safety, Therapeutic Exercise, Transfers Treatment Duration: Jul 09, 2019 Frequency: At least 5 of 7 days/Wk (IRF) Estimated Hrs Per Day: 1.5 hours per day Patient and/or Family Agrees t: Yes Time/GCodes Time In: 1245 Time Out: 1305 Total Billed Treatment Time: 20 Total Billed Treatment 1, ther ex 20min JULIUS GREGORIO CPTA Jun 19, 2019 13:55
[2019-06-19] MEDS: LORazepam 0.5 MG (ATIVAN) TABLET PO PRN (15:18)
[2019-06-19] MEDS: ROFLUMILAST 500 MCG TAB (DALIRESP) PO SCH (15:18)
[2019-06-19 15:30] VITALS: BP 114/63
[2019-06-19] MEDS: CATHETER FLUSH 10 ML SYR IV SCH ×2 (15:55→21:16)
[2019-06-19] MEDS: MEROPENEM 500 MG/SWFI 10 ML IV PUSH IV SCH ×4 (16:02→19:35)
[2019-06-19] MEDS: ENOXAPARIN 40 MG/0.4 ML (LOVENOX) SYR SC SCH (17:30)
[2019-06-19 19:56] VITALS: BP 140/59
[2019-06-19] MEDS: QUEtiapine 25 MG (SEROquel) TAB IMMEDIATE RELEASE PO SCH (21:10)
--- NOTE | 2019-06-19 23:00 | NUR ---
When this RN asked patient to use his C-PAP, he stated "I sleep better without it, I really want to sleep tonight". Will monitor his O2 sat during the night. O2sat 93% at this time.
[2019-06-20] VITALS (7 sets, daily range): BP systolic 127–155; BP diastolic 37–67
--- NOTE | 2019-06-20 02:00 | NUR ---
O2 sat 85%, Pt was advised to use his C-Pap. He refused it and stated "I sleep better without it". O2 at 3L via NC, O2sat 94.
[2019-06-20] MEDS: MEROPENEM 500 MG/SWFI 10 ML IV PUSH IV SCH ×8 (02:08→19:44)
[2019-06-20] MEDS: VANCOMYCIN 1250 MG/NS 250 ML IVPB IV SCH ×4 (02:09→13:24)
[2019-06-20] MEDS: RT-ALBUTEROL/IPRATROPIUM 3 ML (DUONEB) VIAL INH SCH ×4 (02:41→20:20)
[2019-06-20] MEDS: MULTIVIT W/MINERALS TAB (THERAGRAN M) PO SCH (05:51)
[2019-06-20] MEDS: CATHETER FLUSH 10 ML SYR IV SCH ×3 (05:51→20:56)
[2019-06-20] MEDS: BETHANECHOL 25 MG (URECHOLINE) TAB PO SCH ×4 (05:51→20:55)
[2019-06-20] MEDS: SILDENAFIL 20 MG (REVATIO) TAB NON-FORMULARY PO SCH ×3 (05:51→21:17)
[2019-06-20] MEDS: PANTOPRAZOLE 40 MG (PROTONIX) TAB PO SCH (05:51)
[2019-06-20] MEDS: inSUlin ASPART (NovoLOG) 1 UNIT/0.01 ML (CHARGE PER UNIT) SC SCH ×4 (05:55→21:00)
[2019-06-20 06:41] LABS: BASOPHILS % (AUTO) 1 % (0-10); EOSINOPHILS # (AUTO) 0.2 10^3/uL (0.0-0.3); EOSINOPHILS % (AUTO) 3 % (0-10); HEMATOCRIT 28 % (40-54); HEMOGLOBIN 8.7 G/DL (13.3-17.7); LYMPHOCYTES # (AUTO) 1.2 X 10^3 (1.0-4.0); LYMPHOCYTES % (AUTO) 20 % (12-44); MEAN CORPUSCULAR HEMOGLOBIN 28 PG (25-34); MEAN CORPUSCULAR HGB CONC 31 G/DL (32-36); MEAN CORPUSCULAR VOLUME 92 FL (80-99); MEAN PLATELET VOLUME 10.7 FL (7.4-10.4); MONOCYTES # (AUTO) 0.6 X 10^3 (0.0-1.0); MONOCYTES % (AUTO) 9 % (0-12); NEUTROPHILS # (AUTO) 4.1 X 10^3 (1.8-7.8); NEUTROPHILS % (AUTO) 67 % (42-75); PLATELET COUNT 224 10^3/uL (130-400); RED CELL DISTRIBUTION WIDTH 16.8 % (10.0-14.5); WHITE BLOOD COUNT 6.1 10^3/uL (4.3-11.0)
[2019-06-20 07:06] LABS: ALBUMIN 3.2 GM/DL (3.2-4.5); BILIRUBIN,TOTAL 0.3 MG/DL (0.1-1.0); CREATININE SERUM 1.35 MG/DL (0.60-1.30); POTASSIUM 4.2 MMOL/L (3.6-5.0); TOTAL PROTEIN 6.9 GM/DL (6.4-8.2)
--- NOTE | 2019-06-20 07:32 | Pulmonary Progress Note ---
Subjective Time Seen by a Provider: 07:07 Subjective/Events-last exam Pt has wound vac in place now. Sepsis Event Evaluation Height, Weight, BMI Height: 5'10.00" Weight: 265lbs. 0.0oz. [id number]; 38.0 BMI Method:Stated Focused Exam Lactate Level 06/18/19 16:42: Lactic Acid Level 1.06 Exam Exam Vital Signs Date Time Temp Pulse Resp B/P (MAP) Pulse Ox O2 Delivery O2 Flow Rate FiO2 06/20/19 07:20 94 Nasal Cannula 3.00 06/20/19 04:00 97.1 70 16 143/64 (90) 94 Nasal Cannula 2.00 06/20/19 02:47 93 Nasal Cannula 3.00 06/20/19 00:00 98.9 84 16 128/60 (82) 93 Room Air 06/19/19 21:00 94 Room Air 06/19/19 19:56 99.9 95 16 140/59 (86) 93 Room Air 06/19/19 19:27 92 Nasal Cannula 3.00 06/19/19 15:30 98.0 81 16 114/63 (80) 93 Room Air 06/19/19 14:25 92 Nasal Cannula 3.00 06/19/19 12:00 98.4 83 20 105/63 (77) 96 Room Air 06/19/19 09:19 91 Nasal Cannula 3.00 06/19/19 08:42 Nasal Cannula 3.00 06/19/19 07:57 98.0 77 20 133/57 (82) 96 Nasal Cannula 3.00 I & O 06/20/19 07:00 Intake Total 1600 ml Output Total 1400 ml Balance 200 ml Height & Weight Height: 5'10.00" Weight: 265lbs. 0.0oz. [id number]; 38.0 BMI Method:Stated General Appearance: No Apparent Distress, WD/WN, Chronically ill, Obese HEENT: PERRL/EOMI, Normal ENT Inspection, Pharynx Normal, Moist Mucous Membranes Neck: Full Range of Motion, Normal Inspection, Non Tender, Supple Respiratory: Chest Non Tender, Lungs Clear, Normal Breath Sounds, No Accessory Muscle Use, No Respiratory Distress Cardiovascular: Regular Rate, Rhythm, No Edema, No Gallop, No JVD, No Murmur Peripheral Pulses: 2+ Dorsalis Pedis (R), 2+ Left Dors-Pedis (L) Gastrointestinal: non tender, soft Extremity: Normal Capillary Refill, Normal Inspection, Normal Range of Motion, Non Tender, No Calf Tenderness, No Pedal Edema Neurologic/Psychiatric: Alert, Oriented x3, No Motor/Sensory Deficits, derrick worker well service II- XII Norm as Tested, Depressed Affect Skin: Normal Color, Warm/Dry, Other (Review picture of the wound with dehiscence but no erythema but clear drainage noted) Lymphatic: No Adenopathy Results Lab Laboratory Tests 06/18/19 16:42 06/19/19 06:35 06/20/19 06:35 Assessment/Plan Assessment/Plan Hypoxia probably secondary to COPD -Monitor Dehiscence of lumbar surgical wound -Wound care following Morbid obesity with OHS -Home CPAP machine Dural leak with meningeal-cutaneous fistula. Anemia -Monitor DM Tobacco use Debility ANIYA DUDLEY DO Jun 20, 2019 07:32
[2019-06-20] MEDS: TAMSULOSIN 0.4 MG (FLOMAX) CAP PO SCH (09:31)
[2019-06-20] MEDS: amLODIPine 10 MG (NORVASC) TAB PO SCH (09:31)
[2019-06-20] MEDS: DICLOFENAC 1% GEL 100 GM (VOLTAREN) TUBE TOP SCH ×4 (09:31→20:55)
[2019-06-20] MEDS: meTOprolol TARTRATE 25 MG (LOPRESSOR) TABLET PO SCH ×2 (09:31→20:54)
[2019-06-20] MEDS: THEOPHYLLINE 400 MG PO SCH (09:35)
[2019-06-20] MEDS ORDERED: THEOPHYLLINE ER 400 MG TAB (THEO-24) PO ONE (09:35)
--- NOTE | 2019-06-20 10:12 | NUR ---
Dr. Carrasco has been in & assessed pt, notified of elevated temp during the night.
--- NOTE | 2019-06-20 10:12 | Progress Note ---
Standard Progress Note Progress Notes/Assess & Plan Date Seen by a Provider: Jun 20, 2019 Time Seen by a Provider: 10:06 Progress/Assessment & Plan Pt PIERCE, pain controlled, no c/o LBP/leg pain, no overnight issues to report, no HAs, no N/V, no complaints today. VSSAF Motor/sensation grossly intact all 4 extremities Abd soft/NT Breathing well on 2L O2 per NC RRR, good peripheral pulses. WV intact with good seal, only modest output S/P lumbar fusion now with surgical wound infection. Will continue to treat conservatively for now with WV and IV antibiotics given the patient's substantial operative risk. WV change 3X/week per service. Will continue to follow along. Should treatment plan fail to satisfactorily resolve the issue then formal surgical debridement recommended. Focused Exam Lactate Level 06/18/19 16:42: Lactic Acid Level 1.06 Vital Signs Vitals Signs Temperature: 97.1, Source: Tympanic, Heart Rate: 70, Respiratory Rate: 16, BP: 143/64, Pulse Oximetry: 94 Labs Laboratory Tests 06/20/19 06:35 OTILIO PEREIRA DO Jun 20, 2019 10:12
--- NOTE | 2019-06-20 11:01 | NUR ---
Pt asked for bedpan, as placing bedpan w Ax2, pt inct of soft bm. Required assist of 2 to cleanse, turn & change sheets. Encouraged pt to sit up in chair, pt declined now, states that he will soon, but, not now.
[2019-06-20] MEDS: ONDANSETRON 4 MG (ZOFRAN) ORAL DISSOLVE TAB PO PRN (11:15)
--- NOTE | 2019-06-20 12:38 | PM&R Progress Note ---
Subjective HPI/CC On Admission Date Seen by Provider: Jun 20, 2019 Time Seen by Provider: 12:15 CC: Critical illness debility HPI: This is a 68-year-old white male clinic patient of Dr. 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 Received report from Dr. Montesinos at [facility] in [place]. Patient was admitted there after difficulty weaning off the ventilator after he was intubated after failed noninvasive ventilator support after he was transferred from [facility] after his spinal surgery to [facility]. He remained on the ventilator for 3 weeks has some vocal cord dysfunction due to the long intubation status and most recently having urinary retention after Alves catheter was discontinued and currently has Klebsiella UTI maintained on Bactrim and Cipro double coverage because of such a significant organism. He had some significant hallucinations last week but that has been resolved. Patient currently remains on 2 L by nasal cannula of oxygen receives nebulizer treatments of DuoNeb every 6 hours and uses his home CPAP machine. His prior level of functioning was independent of ADLs and ambulation. I reviewed all of his current medications and pharmacy intake technician here at the hospital has confirmed accuracy and all those have been continued. He does have a PICC line in his right upper arm. Upon review of the history and physical the following information was obtained: Past medical history: diabetes mellitus on oral therapy, obstructive sleep apnea, COPD with chronic respiratory failure, polycythemia due to chronic respiratory failure, tobacco use, chronic low back pain, peripheral neuropathy, PVD, CAD previous bypass surgery, thrombocytopenia, morbid obesity with hypoventilation syndrome, congestive heart failure with acute on chronic diastolic type with volume overload at admission to [facility], hyperlipidemia, hypertension, carpal tunnel syndrome, severe DJD of the right knee. He also has a history of SVT. Subjective/Events-last exam Patient doing well Wound VAC in place Refused CPAP last night and has severe sleep apnea based on nursing evaluation at the bedside so Dr. Ahn ordered BiPAP at night with pressure setting of 15/8 99.9 temperature noted but maintain on meropenem and vancomycin Having bowels move every day Pain is well controlled Talked about the process of the wound VAC and the IV antibiotics Appreciate Dr. Carrasco evaluated him today Will await urology recommendation regarding the catheter and urinary retention Appreciate Dr. Ahn consultation and his expertise Conferred with RN Reviewed therapy notes Check meds and labs Review of Systems General: Malaise Pulmonary: Dyspnea Neurological: Incoordination Focused Exam Lactate Level 06/18/19 16:42: Lactic Acid Level 1.06 Objective Exam Vital Signs Vital Signs Date Time Temp Pulse Resp B/P (MAP) Pulse Ox O2 Delivery O2 Flow Rate FiO2 06/20/19 11:59 98.3 78 16 154/67 (96) 06/20/19 10:49 96 Nasal Cannula 2.00 Capillary Refill : General Appearance: No Apparent Distress, WD/WN, Chronically ill, Obese HEENT: PERRL/EOMI, Normal ENT Inspection, Pharynx Normal, Moist Mucous Membranes Neck: Full Range of Motion, Normal Inspection, Non Tender, Supple Respiratory: Chest Non Tender, Lungs Clear, Normal Breath Sounds, No Accessory Muscle Use, No Respiratory Distress Cardiovascular: Regular Rate, Rhythm, No Edema, No Gallop, No JVD, No Murmur Gastrointestinal: Normal Bowel Sounds, No Organomegaly, No Pulsatile Mass, Non Tender, Soft Back: Normal Inspection, No CVA Tenderness, Decreased Range of Motion Extremity: Normal Capillary Refill, Normal Inspection, Normal Range of Motion, Non Tender, No Calf Tenderness, No Pedal Edema Neurologic/Psychiatric: Alert, Oriented x3, No Motor/Sensory Deficits, front end mechanic II- XII Norm as Tested, Depressed Affect Skin: Normal Color, Warm/Dry, Other (Review picture of the wound with dehiscence but no erythema but clear drainage noted) Lymphatic: No Adenopathy Results/Procedures Lab Laboratory Tests 06/20/19 06:35 Patient resulted labs reviewed. FIM Transfers Therapy Code Descriptions/Definitions Functional Vance Measure: 0=Not Assessed/NA 4=Minimal Assistance 1=Total Assistance 5=Supervision or Setup 2=Maximal Assistance 6=Modified Vance 3=Moderate Assistance 7=Complete Vance Therapy Quality Codes: 6 Independent with activity with or without an assistive device 5 Patient requires set up or clean up by helper. Patient completes activity by themselves 4 Supervision or touching assist (CGA). [place] provide cues , steadying assist 3 The helper provides less than half the effort to complete the activity 2 The helper provides more than half the effort to complete the activity 1 Dependent. The helper does all the effort to complete an activity 7 Patient refused to complete or attempt activity 9 The patient did not perform the activity before the current illness or injury 88 Not attempted due to Medical conditions or safety concerns Transfers (B, C, W/C) (FIM): 2 Scootin Rollin Roll Left to Right (QC): 4 Supine to/from Sit: 4 Sit to/from Stand: 2 Sit to Lying (QC): 3 Sit to Stand (QC): 2 Chair/Qil-fs-Kodzw Xfer(QC): 2 Bed to/from Chair: 2 Car Transfer (QC): 2 Gait Training Does the Patient Walk?: No and Walking Goal IS indicated Wheelchair Training Does the Pt Use a Wheelchair?: Yes Wheelchair (FIM): 1 Distance: 20' Wheelchair Level of Assist: 4 Type of Wheelchair: Manual Mental Status/Objective Comprehension: 7 Expression: 7 Social Interaction: 7 Problem Solvin Memory: 7 ADL-Treatment Feedin (set up) Eating (QC): 5 Groomin Oral Hygiene (QC): 4 Bathin Bathing Location: L Arm, R Arm, Chest, Abdomen Shower/Bathe Self (QC): 2 Upper Extremity Dressin Upper Body Dressing (QC): 3 Lower Extremity Dressin (will need adaptive equipment training in future sessions) Lower Body Dressing (QC): 1 On/Off Footwear (QC): 1 (total assist to doff/don socks.) Toiletin Toileting Hygiene (QC): 1 Toilet/Commode Transfer: 2 Toilet Transfer (QC): 2 Shower: 0 Assessment/Plan Assessment and Plan Assess & Plan/Chief Complaint Assessment: (1) Myopathy (2) COPD (chronic obstructive pulmonary disease) (3) Respiratory failure, acute and chronic (4) Polycythemia (5) Tobacco use (6) Back pain (7) Neuropathy (8) PVD (peripheral vascular disease) (9) Hx of CABG (10) Obesity hypoventilation syndrome (11) Hypertension (12) Renal insufficiency (13) Hyperlipemia (14) Arthritis of right knee (15) Hx of supraventricular tachycardia (16) Obesity (17) Diabetes mellitus (18) SIDNEY on CPAP (19) CO2 narcosis (20) CAD (coronary artery disease) (21) Status post lumbar spine surgery for decompression of spinal cord (22) UTI Klebsiella s/p Bactrim and Cipro then DC when added Jorge and Vanc due to wound (23) Anxiety (24) Wound dehiscence requiring bedside debridement and placement of wound vac by Dr Carrasco 06/19/19 Plan: Drs Malini, Anabelle, Rachel, Danilo are appreciated Abx changed to Jorge and Vanc for wound dehiscence and DC Cipro and Bactrim Check labs prn IRF protocol Pain control Monitor closely (1) Myopathy (2) Postoperative wound dehiscence (3) Wound drainage (4) CO2 retention (5) Hyperkalemia (6) Renal failure (7) Elevated brain natriuretic peptide (BNP) level (8) Clot retention of urine (9) COPD (chronic obstructive pulmonary disease) (10) Polycythemia (11) Diabetes mellitus (12) Back pain (13) CAD (coronary artery disease) (14) Hyperlipemia (15) Neuropathy (16) Renal insufficiency (17) PVD (peripheral vascular disease) (18) Hypertension (19) Obesity (20) Respiratory failure, acute and chronic (21) Arthritis of right knee (22) Obesity hypoventilation syndrome (23) CO2 narcosis (24) SIDNEY on CPAP (25) Hx of supraventricular tachycardia (26) Decubitus ulcer (27) Urinary retention (28) BPH (benign prostatic hyperplasia) (29) UTI due to Klebsiella species (30) Hx of CABG (31) Status post lumbar spine surgery for decompression of spinal cord (32) Tobacco use JASPER LONG DO Jun 20, 2019 12:38
[2019-06-20] MEDS: ROFLUMILAST 500 MCG TAB (DALIRESP) PO SCH (13:31)
[2019-06-20] MEDS: HYDROcodone/APAP 5 MG/325 MG (LORTAB) TAB PO PRN ×2 (13:38→20:54)
--- NOTE | 2019-06-20 13:54 | Progress Note - Urology ---
Progress Note-Urology Progress Notes/Assess & Plan Progress/Assessment & Plan TOLERATES URECHOLINE WELL. NO BREATHING ISSUES. GLASER JUST REMOVED Final Diagnosis URINE RETENTION NOÉ BURNS MD Jun 20, 2019 13:54
[2019-06-20] MEDS: ENOXAPARIN 40 MG/0.4 ML (LOVENOX) SYR SC SCH (16:31)
[2019-06-20] MEDS: QUEtiapine 25 MG (SEROquel) TAB IMMEDIATE RELEASE PO SCH (20:54)
[2019-06-20] MEDS: LORazepam 0.5 MG (ATIVAN) TABLET PO PRN (21:50)
[2019-06-20] MEDS ORDERED: LOPERAMIDE 2 MG (IMODIUM) TABLET PO PRN (23:45)
[2019-06-21] VITALS (7 sets, daily range): BP systolic 108–144; BP diastolic 48–74
--- NOTE | 2019-06-21 | NUR ---
Bladder scanner shows 207 ml. Will continue monitoring.
--- NOTE | 2019-06-21 | NUR ---
O2 sat 85%, Pt was advised to use his C-Pap. Pt agrees to use his C-pap. O2 at 2L connected to C-Pap, O2sat 93%.
[2019-06-21] MEDS ORDERED: LOPERAMIDE 2 MG (IMODIUM) TABLET ONE (00:09)
--- NOTE | 2019-06-21 01:00 | NUR ---
Vancomycin level 23.4. 0100 Vancomycin dose held.
[2019-06-21] MEDS: VANCOMYCIN 1250 MG/NS 250 ML IVPB IV SCH ×2 (01:02)
[2019-06-21] MEDS: MEROPENEM 500 MG/SWFI 10 ML IV PUSH IV SCH ×8 (01:48→20:02)
[2019-06-21] MEDS: RT-ALBUTEROL/IPRATROPIUM 3 ML (DUONEB) VIAL INH SCH ×4 (03:26→20:14)
[2019-06-21] MEDS: HYDROcodone/APAP 5 MG/325 MG (LORTAB) TAB PO PRN ×3 (03:55→21:36)
[2019-06-21] MEDS: PANTOPRAZOLE 40 MG (PROTONIX) TAB PO SCH (05:40)
[2019-06-21] MEDS: CATHETER FLUSH 10 ML SYR IV SCH ×3 (05:40→22:50)
[2019-06-21] MEDS: SILDENAFIL 20 MG (REVATIO) TAB NON-FORMULARY PO SCH ×3 (05:40→23:19)
[2019-06-21] MEDS: MULTIVIT W/MINERALS TAB (THERAGRAN M) PO SCH (05:40)
[2019-06-21] MEDS: BETHANECHOL 25 MG (URECHOLINE) TAB PO SCH ×4 (05:40→20:07)
[2019-06-21] MEDS: inSUlin ASPART (NovoLOG) 1 UNIT/0.01 ML (CHARGE PER UNIT) SC SCH ×4 (05:42→21:28)
--- NOTE | 2019-06-21 06:00 | NUR ---
0600 Bladder scanner shows 374 ml. Pt does not feel any urinary urgency or discomfort. Will notify Dr. Law. 06 Dr Law notified about no urine output since Alves was discontinued yesterday afternoon, bladder scanner results (207 ml at midnight and 374 ml this am), and multiple episodes of diarrhea during the night. New order to encourage PO intake.
[2019-06-21] MEDS ORDERED: CHOLESTYRAMINE 4 GM (QUESTRAN LITE, PREVALITE) PKT PO ONE (07:00)
--- NOTE | 2019-06-21 07:11 | Pulmonary Progress Note ---
Subjective Time Seen by a Provider: 07:09 Subjective/Events-last exam Denies SOB or productive cough. No complications noted. Sepsis Event Evaluation Height, Weight, BMI Height: 5'" Weight: 265lbs. 0.0oz. 120.040309hj; 38.0 BMI Method:Stated Focused Exam Lactate Level 06/18/19 16:42: Lactic Acid Level 1.06 Exam Exam Vital Signs Date Time Temp Pulse Resp B/P (MAP) Pulse Ox O2 Delivery O2 Flow Rate FiO2 06/21/19 04:00 98.0 69 18 144/58 (86) 91 Nasal Cannula 2.00 06/21/19 03:26 90 Nasal Cannula 3.00 06/21/19 00:00 98.1 70 18 108/48 (68) 93 NIV CPAP 2.00 06/20/19 21:00 95 Nasal Cannula 2.00 06/20/19 20:21 92 Nasal Cannula 3.00 06/20/19 20:00 99.1 86 20 145/58 (87) 95 Nasal Cannula 2.00 06/20/19 16:28 98.6 86 20 136/62 (86) 97 Nasal Cannula 2.00 06/20/19 15:41 95 Nasal Cannula 3.00 06/20/19 11:59 98.3 78 16 154/67 (96) 06/20/19 10:49 78 18 127/37 (67) 96 Nasal Cannula 2.00 06/20/19 09:31 98.3 76 20 155/64 (94) 96 Nasal Cannula 2.00 06/20/19 08:32 Nasal Cannula 3.00 06/20/19 07:20 94 Nasal Cannula 3.00 I & O 06/21/19 06:59 Intake Total 1600 ml Output Total 500 ml Balance 1100 ml Height & Weight Height: 5'" Weight: 265lbs. 0.0oz. 120.380903ls; 38.0 BMI Method:Stated General Appearance: No Apparent Distress, WD/WN, Chronically ill, Obese HEENT: PERRL/EOMI, Normal ENT Inspection, Pharynx Normal, Moist Mucous Membranes Neck: Full Range of Motion, Normal Inspection, Non Tender, Supple Respiratory: Chest Non Tender, Lungs Clear, Normal Breath Sounds, No Accessory Muscle Use, No Respiratory Distress Cardiovascular: Regular Rate, Rhythm, No Edema, No Gallop, No JVD, No Murmur Peripheral Pulses: 2+ Dorsalis Pedis (R), 2+ Left Dors-Pedis (L) Gastrointestinal: normal bowel sounds, non tender; No hepatomegaly, No spleenomegaly Extremity: Normal Capillary Refill, Normal Inspection, Normal Range of Motion, Non Tender, No Calf Tenderness, No Pedal Edema Neurologic/Psychiatric: Alert, Oriented x3, No Motor/Sensory Deficits, fabric pattern grader II- XII Norm as Tested, Depressed Affect Skin: Normal Color, Warm/Dry Lymphatic: No Adenopathy Results Lab Laboratory Tests 06/20/19 06:35 Assessment/Plan Assessment/Plan Hypoxia probably secondary to COPD -Monitor Dehiscence of lumbar surgical wound -Wound care following -Wound vac in place -surgery following Morbid obesity with OHS -Home CPAP machine Anemia -Monitor DM Tobacco use Debility ANIYA DUDLEY DO Jun 21, 2019 07:11
[2019-06-21 07:33] LABS: BASOPHILS # (AUTO) 0.1 10^3/uL (0.0-0.1); BASOPHILS % (AUTO) 1 % (0-10); EOSINOPHILS # (AUTO) 0.3 10^3/uL (0.0-0.3); EOSINOPHILS % (AUTO) 5 % (0-10); HEMATOCRIT 27 % (40-54); HEMOGLOBIN 8.2 G/DL (13.3-17.7); LYMPHOCYTES # (AUTO) 1.1 X 10^3 (1.0-4.0); LYMPHOCYTES % (AUTO) 20 % (12-44); MEAN CORPUSCULAR HEMOGLOBIN 28 PG (25-34); MEAN CORPUSCULAR HGB CONC 31 G/DL (32-36); MEAN CORPUSCULAR VOLUME 92 FL (80-99); MEAN PLATELET VOLUME 10.3 FL (7.4-10.4); MONOCYTES # (AUTO) 0.7 X 10^3 (0.0-1.0); MONOCYTES % (AUTO) 12 % (0-12); NEUTROPHILS # (AUTO) 3.6 X 10^3 (1.8-7.8); NEUTROPHILS % (AUTO) 62 % (42-75); PLATELET COUNT 247 10^3/uL (130-400); RED CELL DISTRIBUTION WIDTH 16.8 % (10.0-14.5); WHITE BLOOD COUNT 5.7 10^3/uL (4.3-11.0)
[2019-06-21 07:53] LABS: ALBUMIN 3.1 GM/DL (3.2-4.5); BILIRUBIN,TOTAL 0.3 MG/DL (0.1-1.0); CALCIUM 8.9 MG/DL (8.5-10.1); CREATININE SERUM 1.34 MG/DL (0.60-1.30); POTASSIUM 3.9 MMOL/L (3.6-5.0); TOTAL PROTEIN 6.4 GM/DL (6.4-8.2)
[2019-06-21] MEDS: POTASSIUM CHLORIDE INJ 10 MEQ in NS IV 1000 ML 1,000 ML IV SCH ×2 (08:47→17:04)
[2019-06-21] MEDS ORDERED: THEOPHYLLINE ER 400 MG TAB (THEO-24) PO SCH (09:00)
--- NOTE | 2019-06-21 09:12 | PM&R Progress Note ---
Subjective HPI/CC On Admission Date Seen by Provider: Jun 21, 2019 Time Seen by Provider: 09:15 CC: Critical illness debility HPI: This is a 68-year-old white male clinic patient of Dr. 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 Received report from Dr. Montesinos at [facility] in [place]. Patient was admitted there after difficulty weaning off the ventilator after he was intubated after failed noninvasive ventilator support after he was transferred from [facility] after his spinal surgery to [facility]. He remained on the ventilator for 3 weeks has some vocal cord dysfunction due to the long intubation status and most recently having urinary retention after Alves catheter was discontinued and currently has Klebsiella UTI maintained on Bactrim and Cipro double coverage because of such a significant organism. He had some significant hallucinations last week but that has been resolved. Patient currently remains on 2 L by nasal cannula of oxygen receives nebulizer treatments of DuoNeb every 6 hours and uses his home CPAP machine. His prior level of functioning was independent of ADLs and ambulation. I reviewed all of his current medications and doctor of pharmacy here at the hospital has confirmed accuracy and all those have been continued. He does have a PICC line in his right upper arm. Upon review of the history and physical the following information was obtained: Past medical history: diabetes mellitus on oral therapy, obstructive sleep apnea, COPD with chronic respiratory failure, polycythemia due to chronic respiratory failure, tobacco use, chronic low back pain, peripheral neuropathy, PVD, CAD previous bypass surgery, thrombocytopenia, morbid obesity with hypoventilation syndrome, congestive heart failure with acute on chronic diastolic type with volume overload at admission to [facility], hyperlipidemia, hypertension, carpal tunnel syndrome, severe DJD of the right knee. He also has a history of SVT. Subjective/Events-last exam Severe diarrhea of 7x last night prompted increase oral fluids in addition to IV fluids 100 CCs per hour. Creatinine remains at 1.34, Hgb remains at 8.2. Vancomycin and Meropenem empirically placed due to spinal fusion incision infection, wound vac placed. Dr. Nayak consulted, likely will perform cystoscopy today. Catheter was discontinued yesterday but still having a lot of retention. Updated Pt on the plan. Agrees with therapy and cystoscopy. Will initiate Questran and Imodium and probiotic to minimize diarrhea while on broad-spectrum Vancomycin and Meropenem. High risk for C-Diff colitis. Very complex situation. Conferred with RN Reviewed therapy notes Check meds and labs Review of Systems General: Fatigue Pulmonary: Dyspnea Gastrointestinal: Diarrhea Focused Exam Lactate Level Objective Exam Vital Signs Vital Signs Date Time Temp Pulse Resp B/P (MAP) Pulse Ox O2 Delivery O2 Flow Rate FiO2 06/21/19 19:46 98.8 78 18 138/65 (89) 94 Nasal Cannula 3.00 Capillary Refill : General Appearance: No Apparent Distress, WD/WN, Chronically ill, Obese HEENT: PERRL/EOMI, Normal ENT Inspection, Pharynx Normal, Moist Mucous Membranes Neck: Full Range of Motion, Normal Inspection, Non Tender, Supple Respiratory: Chest Non Tender, Lungs Clear, Normal Breath Sounds, No Accessory Muscle Use, No Respiratory Distress Cardiovascular: Regular Rate, Rhythm, No Edema, No Gallop, No JVD, No Murmur Gastrointestinal: Normal Bowel Sounds, No Organomegaly, No Pulsatile Mass, Non Tender, Soft Back: Normal Inspection, No CVA Tenderness, Decreased Range of Motion Extremity: Normal Capillary Refill, Normal Inspection, Normal Range of Motion, Non Tender, No Calf Tenderness, No Pedal Edema Neurologic/Psychiatric: Alert, Oriented x3, No Motor/Sensory Deficits, line erector apprentice II- XII Norm as Tested, Depressed Affect Skin: Normal Color, Warm/Dry Lymphatic: No Adenopathy Results/Procedures Lab Laboratory Tests 06/21/19 07:26 Patient resulted labs reviewed. FIM Transfers Therapy Code Descriptions/Definitions Functional [place] Measure: 0=Not Assessed/NA 4=Minimal Assistance 1=Total Assistance 5=Supervision or Setup 2=Maximal Assistance 6=Modified [place] 3=Moderate Assistance 7=Complete [place] Therapy Quality Codes: 6 Independent with activity with or without an assistive device 5 Patient requires set up or clean up by helper. Patient completes activity by themselves 4 Supervision or touching assist (CGA). [place] provide cues , steadying assist 3 The helper provides less than half the effort to complete the activity 2 The helper provides more than half the effort to complete the activity 1 Dependent. The helper does all the effort to complete an activity 7 Patient refused to complete or attempt activity 9 The patient did not perform the activity before the current illness or injury 88 Not attempted due to Medical conditions or safety concerns Transfers (B, C, W/C) (FIM): 2 Scootin Rollin Roll Left to Right (QC): 4 Supine to/from Sit: 4 Sit to/from Stand: 2 Sit to Lying (QC): 3 Sit to Stand (QC): 2 Chair/Ntg-bt-Jidpm Xfer(QC): 2 Bed to/from Chair: 2 Car Transfer (QC): 2 Gait Training Does the Patient Walk?: No and Walking Goal IS indicated Wheelchair Training Does the Pt Use a Wheelchair?: Yes Wheelchair (FIM): 1 Distance: 20' Wheelchair Level of Assist: 4 Type of Wheelchair: Manual Mental Status/Objective Comprehension: 7 Expression: 7 Social Interaction: 7 Problem Solvin Memory: 7 ADL-Treatment Feedin (set up) Eating (QC): 5 Groomin Oral Hygiene (QC): 4 Bathin Bathing Location: L Arm, R Arm, Chest, Abdomen Shower/Bathe Self (QC): 2 Upper Extremity Dressin Upper Body Dressing (QC): 3 Lower Extremity Dressin (will need adaptive equipment training in future sessions) Lower Body Dressing (QC): 1 On/Off Footwear (QC): 1 (total assist to doff/don socks.) Toiletin Toileting Hygiene (QC): 1 Toilet/Commode Transfer: 2 Toilet Transfer (QC): 2 Shower: 0 Assessment/Plan Assessment and Plan Assess & Plan/Chief Complaint Assessment: (1) Myopathy (2) COPD (chronic obstructive pulmonary disease) (3) Respiratory failure, acute and chronic (4) Polycythemia (5) Tobacco use (6) Back pain (7) Neuropathy (8) PVD (peripheral vascular disease) (9) Hx of CABG (10) Obesity hypoventilation syndrome (11) Hypertension (12) Renal insufficiency (13) Hyperlipemia (14) Arthritis of right knee (15) Hx of supraventricular tachycardia (16) Obesity (17) Diabetes mellitus (18) SIDNEY on CPAP (19) CO2 narcosis (20) CAD (coronary artery disease) (21) Status post lumbar spine surgery for decompression of spinal cord (22) UTI Klebsiella s/p Bactrim and Cipro then DC when added Jorge and Vanc due to wound (23) Anxiety (24) Wound dehiscence requiring bedside debridement and placement of wound vac by Dr Carrasco 06/19/19 (25) Diarrhea w/mild dehydration Plan: Maude Nayak, Anabelle, Rachel, Danilo are appreciated Abx changed to Jorge and Vanc for wound dehiscence and DC Cipro and Bactrim Check labs prn IRF protocol Pain control Monitor closely Questran with Imodium and gentle IVF (1) Myopathy (2) Postoperative wound dehiscence (3) Wound drainage (4) CO2 retention (5) Hyperkalemia (6) Renal failure (7) Elevated brain natriuretic peptide (BNP) level (8) Clot retention of urine (9) COPD (chronic obstructive pulmonary disease) (10) Polycythemia (11) Diabetes mellitus (12) Back pain (13) CAD (coronary artery disease) (14) Hyperlipemia (15) Neuropathy (16) Renal insufficiency (17) PVD (peripheral vascular disease) (18) Hypertension (19) Obesity (20) Respiratory failure, acute and chronic (21) Arthritis of right knee (22) Obesity hypoventilation syndrome (23) CO2 narcosis (24) SIDNEY on CPAP (25) Hx of supraventricular tachycardia (26) Decubitus ulcer (27) Urinary retention (28) BPH (benign prostatic hyperplasia) (29) UTI due to Klebsiella species (30) Hx of CABG (31) Status post lumbar spine surgery for decompression of spinal cord (32) Tobacco use JASPER LONG DO Jun 21, 2019 09:12
[2019-06-21] MEDS: meTOprolol TARTRATE 25 MG (LOPRESSOR) TABLET PO SCH ×2 (09:54→20:09)
[2019-06-21] MEDS: DICLOFENAC 1% GEL 100 GM (VOLTAREN) TUBE TOP SCH ×4 (09:54→21:37)
[2019-06-21] MEDS: TAMSULOSIN 0.4 MG (FLOMAX) CAP PO SCH (09:54)
[2019-06-21] MEDS: amLODIPine 10 MG (NORVASC) TAB PO SCH (09:54)
[2019-06-21] MEDS: THEOPHYLLINE 400 MG PO SCH (09:54)
[2019-06-21] MEDS ORDERED: THEOPHYLLINE ER 400 MG TAB (THEO-24) PO ONE (09:54)
--- NOTE | 2019-06-21 10:18 | Progress Note - Urology ---
Progress Note-Urology Progress Notes/Assess & Plan Progress/Assessment & Plan CYSTOSCOPY TODAY. FULLY EXPLAINED Final Diagnosis URINE RETENTION NOÉ BURNS MD Jun 21, 2019 10:18
--- NOTE | 2019-06-21 10:41 | Physical Therapy Daily Note ---
PT Daily Note-Current Subjective Pt agreeable to PT session Pain Numeric Pain Scale: 5-Moderate Pain Comment: left leg and back, denies need for pain med Appearance Pt in bed, awake and alert at beginning of session. Pt sitting up in w/c per pt request, at end of session with call light, phone and bedside table within reach Mental Status Patient Orientation: Person, Place, Time, Eyes Open, Situation Attachments: Oxygen (3L/NC), IV Transfers Therapy Code Descriptions/Definitions Functional [place] Measure: 0=Not Assessed/NA 4=Minimal Assistance 1=Total Assistance 5=Supervision or Setup 2=Maximal Assistance 6=Modified [place] 3=Moderate Assistance 7=Complete [place] Therapy Quality Codes: 6 Independent with activity with or without an assistive device 5 Patient requires set up or clean up by helper. Patient completes activity by themselves 4 Supervision or touching assist (CGA). [place] provide cues , steadying assist 3 The helper provides less than half the effort to complete the activity 2 The helper provides more than half the effort to complete the activity 1 Dependent. The helper does all the effort to complete an activity 7 Patient refused to complete or attempt activity 9 The patient did not perform the activity before the current illness or injury 88 Not attempted due to Medical conditions or safety concerns Transfers (B, C, W/C) (FIM): 2 Scootin (scooting in w/c) Rollin (with use of bedrail rolling to his right) Supine to/from Sit: 3 (use of bedrail, HOB elevated, physical A to complete sitting up at EOB) Sit to/from Stand: 1 (pt attempted several times but unable to use LE's to bear wt through) Bed to/from Chair: 4 (sliding transfer bed to w/c, no sliding board) pt unable to bear wt through LE's this date. Attempted with physical A with therapist in front, attempted in // bars. Pt unable to lift buttocks out of chair at all Wheelchair Training Does the Pt Use a Wheelchair?: Yes Wheelchair (FIM): 4 Wheelchair Distance: 3=150 ft Distance: 150 Wheelchair Level of Assist: 4 Type of Wheelchair: Manual IV pole, wound vac, O2 tank Exercises attempting sit to stand and chair pushups, pt unable to complete. unable to push enough wt through UE's. unable to bear wt through LE's. Treatments transfers, strengthening, safety, balance, w/c mobility, education, activity tolerance, functional mobility Assessment pt unable to bear wt through LE's. Transfer performed sliding from EOB to w/c. Unable to stand or begin surgical instrument mechanic // bars with use of UE's pulling PT Short Term Goals Short Term Goals Time Frame: Jun 25, 2019 Transfers (B,C,W/C) (FIM): 3 Gait (FIM): 1 Gait Distance Comment: 5' Gait Level of Assist: 3 Gait Assistive Device: FWW Wheelchair Distance: 20' PT Mcc Goals Mcc Goals PT Resident Associate Goals Time Frame: Jul 09, 2019 Transfers (B,C,W/C) (FIM): 4 Sit to Lying (QC): 4 Lying-Sitting on Side/Bed(QC): 4 Sit to Stand (QC): 3 Rollin Roll Left to Right (QC): 4 Chair/Inr-mj-Nzirw Xfer(QC): 3 Car Transfer (QC): 3 Gait (FIM): 1 Distance: 20' Walk 10 feet (QC): 3 Walk 10ft-Uneven Surface(QC): 3 Gait Level of Assist: 4 Gait Assistive Device: FWW Wheelchair (FIM): 6 Distance: 150' Wheelchair Level of Assist: 5 Wheel 50 feet with 2 turns (QC: 4 PT Plan Treatment/Plan Treatment Plan: Continue Plan of Care Treatment Plan: Bed Mobility, Concurrent Therapy, Education, Functional Ac tivity Leo, Functional Strength, Group Therapy, Gait, Safety, Therapeutic Exercise, Transfers Treatment Duration: Jul 09, 2019 Frequency: At least 5 of 7 days/Wk (IRF) Estimated Hrs Per Day: 1.5 hours per day Patient and/or Family Agrees t: Yes Safety Risks/Education Patient Education: Transfer Techniques, W/C Management, Safety Issues Teaching Recipient: Patient Teaching Methods: Demonstration, Discussion Response to Teaching: Verbalize Understanding, Unable to Return Demonstration, Reinforcement Needed Time/GCodes Time In: 1030 Time Out: 1130 Total Billed Treatment Time: 60 Total Billed Treatment 1 visit, WC x2 units, FA x2 units ARISTIDES LONDONO FABRIC STRETCHER Jun 21, 2019 10:41
[2019-06-21] MEDS: CHOLESTYRAMINE 4 GM (QUESTRAN LITE, PREVALITE) PKT PO SCH ×3 (11:14→21:33)
--- NOTE | 2019-06-21 11:22 | NUR ---
COMPARISON SHOPPER met with patient to complete initial assessment. Patient was alert and oriented and agreeable to assessment. Patient admitted to ARU from [facility]. Patient originally admitted to [facility] for spine surgery by Dr. Carrasco on 05/13 and experienced complications with respiratory failure, he was then transferred to [facility] on 05/17 for vent weaning. Following lengthy hospitalization, patient admit to ARU with debility and diagnosis of disuse myopathy. Prior to hospitalization patient resided alone in a one level home in [place], [place]. The home has a total of 4 steps at the entrance with hand rails. Prior to hospitalization patient reports independence with ambulation and ADLs. Patient currently presents with 2 L of O2; however did not utilize home O2, only a nocturnal CPAP. Primary contact identified as daughter, [place] at [phone], secondary contact identified as ex-, Vickie Meehan of [place], [place]; however patient is unable to recall contact information at this time. PCP identified as Dr. Paris Moreno, [employer] H[employer] Developer as Dr. Ahn and [place] emission technician. Insurance verified as Medicare and [employer] with prescription coverage and preferred pharmacy as [facility]. Patient and staff do no concerns regarding current and anxiety levels, Dr. Law has placed a consult for behavioral health. COMPARISON SHOPPER reviewed this recommendation with patient, patient is agreeable. COMPARISON SHOPPER will contact [facility] to schedule consult. COMPARISON SHOPPER reviewed typical ARU length of stay and weekly team conferences, patient expresses no concerns at this time. COMPARISON SHOPPER will continue to follow.
[2019-06-21] MEDS ORDERED: TROUGH ORDER-PHARMACY XX NR ×2 (12:00)
--- NOTE | 2019-06-21 12:00 | Progress Note-Post Operative ---
Post-Operative Progess Note Surgeon (s)/Placement Assistant (s) Surgeon NOÉ BURNS MD Placement Assistant: NONE Pre-Operative Diagnosis URINE RETENTION Post-Operative Diagnosis SAME Procedure & Operative Findings Date of Procedure 06/21/19 Procedure Performed/Findings CYSTOSCOPY Anesthesia Type LOCAL Estimated Blood Loss Estimated blood loss (mL): NONE Specimens/Packing Specimens Removed NONE Packing: NONE NOÉ BURNS MD Jun 21, 2019 12:00
--- NOTE | 2019-06-21 14:06 | Occupational Ther Daily Note ---
OT Current Status-Daily Note Subjective No pain reported. Appearance Pt. in bed. Agrees to work with OT. Mental Status/Objective Patient Orientation: Person, Place Therapy Code Descriptions/Definitions Functional [place] Measure: 0=Not Assessed/NA 4=Minimal Assistance 1=Total Assistance 5=Supervision or Setup 2=Maximal Assistance 6=Modified [place] 3=Moderate Assistance 7=Complete [place] Attachments: IV, Oxygen ADL-Treatment Therapy Code Descriptions/Definitions Functional [place] Measure: 0=Not Assessed/NA 4=Minimal Assistance 1=Total Assistance 5=Supervision or Setup 2=Maximal Assistance 6=Modified [place] 3=Moderate Assistance 7=Complete [place] Therapy Quality Codes: 6 Independent with activity with or without an assistive device 5 Patient requires set up or clean up by helper. Patient completes activity by themselves 4 Supervision or touching assist (CGA). [place] provide cues , steadying assist 3 The helper provides less than half the effort to complete the activity 2 The helper provides more than half the effort to complete the activity 1 Dependent. The helper does all the effort to complete an activity 7 Patient refused to complete or attempt activity 9 The patient did not perform the activity before the current illness or injury 88 Not attempted due to Medical conditions or safety concerns Grooming (FIM): 5 (SBA to brush hair.) Bathing (FIM): 4 (OT cleanses pt's rear brandyn area in supine position. Pt. able to wash front brandyn area while seated and with weight shifts. Utilizes LH sponge in sitting to wash bilateral LE.) Shower/Bathe Self (QC): 4 Upper Body (FIM): 5 Upper Body Dressing (QC): 4 Lower Body Dressing (FIM): 2 (Dependent assist at supine level to don brief. Mod assist to don shorts over feet, and then max assist at bed level to don over hips. Max assist to don slipper socks.) Lower Body Dressing (QC): 2 On/Off Footwear (QC): 2 Toileting (FIM): 1 (Pt. was incontinent of bowel while in bed. OT removed depend in bed, and placed bed betts per pt. request, as he had to go quickly. After toileting, OT cleansed brandyn area at bed level.) Toileting Hygiene (QC): 1 Transfers (B, C, W/C) (FIM): 1 (Max assist x 2 at times to roll in bed and pos ition self in bed. Max assist supine-sit. SBA/CGA at times to maintain sitting balance on side of bed.) Pt. agrees to cleanse self while seated on side of bed. After toileting task, pt. transferred to side of bed. OT assisted as needed for cleansing self and dressing self. Pt. back in bed and positioned with max x 2 for comfort. Awaiting PT. Education OT Patient Education: Correct positioning, Modified ADL techniques, Progress toward Goal/Update tx plan, Purpose of tx/functional activities, Reviewed precautions, Rehab process, Transfer techniques, Use of adapted equipment Teaching Recipient: Patient Teaching Methods: Demonstration, Discussion Response to Teaching: Verbalize Understanding, Return Demonstration OT Short Term Goals Short Term Goals Time Frame: Jun 25, 2019 Grooming(FIM): 5 Bathing(FIM): 3 Lower Body Dressing(FIM): 3 Toileting(FIM): 3 Transfers (B,C,W/C) (FIM): 3 Toilet/Commode Transfer(FIM): 3 Additional Short Term Goals: 1-Demonstrate ADL Tasks, 2-Verbalize Understanding, 3-ImproveStrength/Leo 1=Demonstrate adherence to instructed precautions during ADL tasks. 2=Patient will verbalize/demonstrate understanding of assistive devices/modifications for ADL. 3=Patient will improve strength/tolerance for activity to enable patient to perform ADL's. OT Fci Goals Stitcher Standard Machine Goals Time Frame: Jul 09, 2019 Eating (FIM): 6 Eating (QC): 6 Groomin Oral Hygiene (QC): 6 Bathing(FIM): 5 Shower/Bathe Self (QC): 5 Upper Body Dressing(FIM): 6 Upper Body Dressing (QC): 6 Lower Body Dressing(FIM): 6 Lower Body Dressing (QC): 5 On/Off Footwear (QC): 5 Toileting(FIM): 6 Toileting Hygiene (QC): 6 Toilet/Commode Transfer(FIM): 6 Toilet/Commode Transfer (QC): 6 Shower Transfer(FIM): 5 Comprehension(FIM): 7 Expression (FIM): 7 Social Interaction(FIM): 7 Problem Solving(FIM): 7 Memory(FIM): 7 Additional Goals: 1-Demonstrate ADL Tasks, 2-Verbalize Understanding, 3- ImproveStrength/Leo 1=Demonstrate adherence to instructed precautions during ADL tasks. 2=Patient will verbalize/demonstrate understanding of assistive devices/modifications for ADL. 3=Patient will improve strength/tolerance for activity to enable patient to perform ADL's. OT Education/Plan Problem List/Assessment Assessment: Decreased Activ Tolerance, Decreased UE Strength, Dependent Transfers, Impaired Bed Mobility, Impaired Funct Balance, Impaired I ADL's, Impaired Self-Care Skills Discharge Recommendations Plan/Recommendations: Continue POC Treatment Plan/Plan of Care Treatment,Training & Education: Yes Patient would benefit from OT for education, treatment and training to promote independence in ADL's, mobility, safety and/or upper extremity function for ADL's. Plan of Care: ADL Retraining, Functional Mobility, Group Exercise/Act as Ind, UE Funct Exercise/Act Treatment Duration: Jul 09, 2019 Frequency: At least 5 of 7 days/Wk (IRF) Estimated Hrs Per Day: 1.5 hours per day Agreement: Yes Rehab Potential: Fair Time/GCodes Start Time: 09:30 Stop Time: 10:30 Total Time Billed (hr/min): 60 Billed Treatment Time 1, ADL x 4 ERI CORONA OT Jun 21, 2019 14:06
[2019-06-21] MEDS ORDERED: LIDOCAINE UROJET 2% GEL 10 ML PKG ONE (14:11)
--- NOTE | 2019-06-21 14:20 | NUR ---
STRAIGHT CATH DONE USING STERILE TECHNIQUE PER DR BURNS. PT TOLERATED WELL. 1100ML KIMMIE YELLOW URINE OUTPUT. WILL CONTINUE TO MONITOR PT.
[2019-06-21] MEDS: ROFLUMILAST 500 MCG TAB (DALIRESP) PO SCH (14:28)
[2019-06-21] MEDS: VANCOMYCIN INJECTION 2,250 MG in NS IV 500 ML 500 ML IV SCH (14:37)
[2019-06-21] MEDS ORDERED: POTA20TA15 PO (15:37)
[2019-06-21] MEDS ORDERED: GABA-488 PO ×2 (15:37)
[2019-06-21] MEDS ORDERED: FURO40TA4 PO (15:37)
[2019-06-21] MEDS ORDERED: PRAV40TA2 PO (15:37)
[2019-06-21] MEDS ORDERED: GLIM4TAB PO (15:37)
[2019-06-21] MEDS ORDERED: LISI10TA2 PO (15:37)
[2019-06-21] MEDS ORDERED: CLOP75TA28 PO (15:37)
[2019-06-21] MEDS ORDERED: FAMO20TA5 PO (15:37)
[2019-06-21] MEDS ORDERED: METF-397 PO (15:37)
[2019-06-21] MEDS ORDERED: ASPI-983 PO (15:38)
--- NOTE | 2019-06-21 15:43 | Therapy Group Daily Note ---
Therapy Daily Group Note Patient Education Topic Incontinence (dehydration) Session Ratio (pt:therapist): 3:1 Goal of Session: Education on ARU Expectations, Other (list) (risks of dehydration) Educate and inform on risks of dehydration and the effects on well being. Iimportance of regular toileting, plenty of water and ways to enhance hydration. Goal Met for this Session: Yes Pt Benefit of Group: Contributions to Others, Socialization Pt able to interact with other patients and discuss concerns and successes they have experienced. Other/Notes Pt. participated in group PT session this date. Pt. came and went via ; he was transferred to/from bed with sit to stand lift. Pt. was social introducing himself and was very social and interacted with other patients as well as clinicians.. Pts. were educated in the causes signs and symptoms of incontinence and dehydration as well as prevention; pt interacted with voicing some signs of dehydration. Pts. were introduced to incont briefs and their role in above topics. Pts were instructed in Kegel exercises . Pt. to room after Rxmuna at hand. Start Time: 13:00 Stop Time: 14:00 Total Billed Treatment Time: 60 Total Billed Treatment visit GRP 60 AMANDA NAILS PT Jun 21, 2019 15:43
--- NOTE | 2019-06-21 16:35 | ST Dysphagia Evaluation ---
Speech Evaluation-General Medical Diagnosis respiratory failure Onset Date: May 13, 2019 Therapy Diagnosis Therapy Diagnosis: Oropharyngeal Dysphagia Precautions Precautions: Aspiration Precautions/Isolations: Fall Prevention, Standard Precautions, Pressure Ulcer Medical History Pertinent Medical History: CABG, CAD, DM, GERD, OA Reviewed History: Yes Social History Current Living Status: Alone Speech PLF/Current-Dysphagia Prior Level of Function The patient was admitted from [facility] where he had been on a modified diet. Subjective The patient was compliant with the Bedside Dysphagia Evaluation Cognitive Status Patient Orientation: Person, Place, Time, Situation Oral Motor Skills Dentition: Edentalous, Natural, Tumbled, Stained Denture Type: Full- Upper Current Food Consistancy: Regular Ability to Follow Directions: Good Oral Expression Ability: No Impairment Voice Voice Phonatory-Based Quality: Hoarse Face Facial Symmetry: Symmetrical The patient states he has always had a hoarse voice. Oral-Facial Assessment Oral-Facial Dentition: Normal Labial Seal Description: Normal Smile: Normal Puff Cheeks: Normal Lingual Protrusion: Normal Lingual ROM: Normal Lingual Strength: Normal Pharynx Velopharyngeal Move.: Normal Volitional Dry Swallow: Yes Voluntary Cough: Yes Can Clear Throat Volitionally: Yes Productive Cough: No Productive Throat Clear: No Dysphagia Evaluation Consistencies Presented: Regular, Thin Liquid, Mechanical Soft, Pureed Patient exhibits normal function at the oral stage. Patient exhibits normal function at the pharyngeal stage. Dietary Recommendations: Regular Liquid Recommendations: Thin Swallowing Precautions: Alternate Liquids/Solids, Liquids from Straw, Sitting Upright 90 Degrees, Sitting 90 Degrees 30 Post Intake Dysphagia Evaluation Summary The patient was admitted to the ARU from another facility where he was on a modified diet. He was placed on a regular per physician and given a few days to see how he did. He was evaluated at bedside today per swallow function. He does not exhibit any deficits with his swallow at this time. He will continue on regular diet level with thin. No skilled ST is recommended at this time. Barriers to Learning None identified Speech Business Area Director Goals Fpc Goals Comprehension: 7 Expression: 7 Social Interaction: 7 Problem Solvin Memory: 7 Speech-Plan Patient/Family Goals Patient/Family Goals: The patient plans on returning to his home alone post rehab, however he will have family support for his needs. Treatment Plan Speech Therapy Treatment Plan: Discontinue ST The patient does not require dysphagia therapy at this time. Treatment Duration: Jun 21, 2019 Frequency: 1 time per week Estimated Hrs Per Day: .25 hour per day Rehab Potential: Fair Barriers to Learning: None identified Pt/Family Agrees to Plan: Yes Safety Risks/Education Teaching Recipient: Patient Teaching Methods: Discussion Response to Teaching: Verbalize Understanding Education Topics Provided: Safety with oral intake Time Speech Therapy Time In: 16:00 Speech Therapy Time Out: 16:30 Total Billed Time: 30 Billed Treatment Time MICHAEL Colindres [facility] Jun 21, 2019 16:35
[2019-06-21] MEDS: ENOXAPARIN 40 MG/0.4 ML (LOVENOX) SYR SC SCH (17:01)
--- NOTE | 2019-06-21 19:14 | NUR ---
bedside report received from YASEMIN LOUIE, assume care of pt
[2019-06-21] MEDS: GABAPENTIN 600 MG (NEURONTIN) TAB PO SCH (20:07)
[2019-06-21] MEDS: QUEtiapine 25 MG (SEROquel) TAB IMMEDIATE RELEASE PO SCH (20:08)
[2019-06-21] MEDS: LORazepam 0.5 MG (ATIVAN) TABLET PO PRN (20:09)
--- NOTE | 2019-06-21 20:09 | NUR ---
meds given & Ativan 0.25mg given
--- NOTE | 2019-06-21 20:35 | NUR ---
assessments & interventions completed, see assessments & interventions, resting in bed, asking for gabapentin & something for his nerves
--- NOTE | 2019-06-21 21:00 | NUR ---
fsbs 182 no ss insulin given but given Levemir 10 units
--- NOTE | 2019-06-21 21:36 | NUR ---
c/o neuropathy pain in feet level 5/10 on numeric scale, Lortab 5 1 tab po given
--- NOTE | 2019-06-21 22:20 | NUR ---
resting quietly in bed, pain level 0/10 on flacc scale
--- NOTE | 2019-06-21 23:30 | NUR ---
bladder scan shows 286 ml will continue to monitor
--- NOTE | 2019-06-21 23:45 | NUR ---
cpap on with 2l/m of 02
[2019-06-22] VITALS (8 sets, daily range): BP systolic 100–152; BP diastolic 49–66
[2019-06-22] MEDS ORDERED: NS W/KCL 40 MEQ/L 0 ML IV ONE (01:00)
[2019-06-22] MEDS: POTASSIUM CHLORIDE INJ 10 MEQ in NS IV 1000 ML 1,000 ML IV SCH (01:16)
[2019-06-22] MEDS ORDERED: LIDOCAINE UROJET 2% GEL 10 ML PKG ONE (01:25)
[2019-06-22] MEDS: MEROPENEM 500 MG/SWFI 10 ML IV PUSH IV SCH ×8 (01:28→19:59)
--- NOTE | 2019-06-22 01:40 | NUR ---
bladder scan shows 552 ml
--- NOTE | 2019-06-22 01:52 | NUR ---
straight cath & received 625 light carolee colored urine
[2019-06-22] MEDS: RT-ALBUTEROL/IPRATROPIUM 3 ML (DUONEB) VIAL INH SCH ×4 (03:10→21:15)
--- NOTE | 2019-06-22 05:45 | NUR ---
bladder scan showed 148ml
[2019-06-22] MEDS: PANTOPRAZOLE 40 MG (PROTONIX) TAB PO SCH (05:53)
[2019-06-22] MEDS: BETHANECHOL 25 MG (URECHOLINE) TAB PO SCH ×4 (05:53→20:44)
[2019-06-22] MEDS: SILDENAFIL 20 MG (REVATIO) TAB NON-FORMULARY PO SCH ×3 (05:54→21:50)
[2019-06-22] MEDS: MULTIVIT W/MINERALS TAB (THERAGRAN M) PO SCH (05:54)
[2019-06-22] MEDS: inSUlin ASPART (NovoLOG) 1 UNIT/0.01 ML (CHARGE PER UNIT) SC SCH ×4 (05:56→20:53)
[2019-06-22] MEDS: CATHETER FLUSH 10 ML SYR IV SCH ×3 (05:57→22:36)
[2019-06-22] MEDS: CHOLESTYRAMINE 4 GM (QUESTRAN LITE, PREVALITE) PKT PO SCH ×4 (06:50→23:41)
--- NOTE | 2019-06-22 07:10 | NUR ---
BEDSIDE REPORT GIVEN TO YOVANI LOUIE
[2019-06-22] MEDS: meTOprolol TARTRATE 25 MG (LOPRESSOR) TABLET PO SCH ×2 (07:56→20:50)
[2019-06-22] MEDS: amLODIPine 10 MG (NORVASC) TAB PO SCH (07:56)
[2019-06-22] MEDS: GABAPENTIN 300 MG (NEURONTIN) CAP PO SCH (07:56)
[2019-06-22] MEDS: HYDROcodone/APAP 5 MG/325 MG (LORTAB) TAB PO PRN ×3 (07:57→21:49)
[2019-06-22] MEDS: THEOPHYLLINE ER 400 MG TAB (THEO-24) PO SCH (07:59)
[2019-06-22] MEDS: DICLOFENAC 1% GEL 100 GM (VOLTAREN) TUBE TOP SCH ×4 (08:00→20:53)
[2019-06-22] MEDS: TAMSULOSIN 0.4 MG (FLOMAX) CAP PO SCH (08:11)
--- NOTE | 2019-06-22 09:24 | PM&R Progress Note ---
Subjective HPI/CC On Admission Date Seen by Provider: Jun 22, 2019 Time Seen by Provider: 09:00 CC: Critical illness debility HPI: This is a 68-year-old white male clinic patient of Dr. 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 Received report from Dr. Montesinos at [facility] in [place]. Patient was admitted there after difficulty weaning off the ventilator after he was intubated after failed noninvasive ventilator support after he was transferred from [facility] after his spinal surgery to [facility]. He remained on the ventilator for 3 weeks has some vocal cord dysfunction due to the long intubation status and most recently having urinary retention after Alves catheter was discontinued and currently has Klebsiella UTI maintained on Bactrim and Cipro double coverage because of such a significant organism. He had some significant hallucinations last week but that has been resolved. Patient currently remains on 2 L by nasal cannula of oxygen receives nebulizer treatments of DuoNeb every 6 hours and uses his home CPAP machine. His prior level of functioning was independent of ADLs and ambulation. I reviewed all of his current medications and pharmacy care coordinator here at the hospital has confirmed accuracy and all those have been continued. He does have a PICC line in his right upper arm. Upon review of the history and physical the following information was obtained: Past medical history: diabetes mellitus on oral therapy, obstructive sleep apnea, COPD with chronic respiratory failure, polycythemia due to chronic respiratory failure, tobacco use, chronic low back pain, peripheral neuropathy, PVD, CAD previous bypass surgery, thrombocytopenia, morbid obesity with hypoventilation syndrome, congestive heart failure with acute on chronic diastolic type with volume overload at admission to [facility], hyperlipidemia, hypertension, carpal tunnel syndrome, severe DJD of the right knee. He also has a history of SVT. Subjective/Events-last exam Will heplock IV fluid and encourage PO fluid to prevent volume overload Will evaluate him for agreeing for psychiatric evaluation due to situational depression Left elbow cyst is maintained with protection from elbow guard Dr. Nayak consult is appreciated. He is still not voiding well requiring in and out catheters Diarrhea is much improved with Questrian schedule Lactinex probiotic will be initiated before meals and at bedtime Vanc and Meropenem maintained and tolerated well otherwise Wound vac in place Refusing CPAP and oxygen supplementation most of the time Very complex case No evidence of any respiratory failure at this time Vocal cord dysfunction and speech therapy is working with him for that High risk for C-Diff colitis. Very complex situation. Conferred with RN Reviewed therapy notes Check meds and labs Review of Systems General: Fatigue Pulmonary: Dyspnea Gastrointestinal: Diarrhea Musculoskeletal: back pain Objective Exam Vital Signs Vital Signs Date Time Temp Pulse Resp B/P (MAP) Pulse Ox O2 Delivery O2 Flow Rate FiO2 06/22/19 19:13 99.2 84 22 148/62 (90) 95 Nasal Cannula 1.50 Capillary Refill : General Appearance: No Apparent Distress, WD/WN, Chronically ill, Obese HEENT: PERRL/EOMI, Normal ENT Inspection, Pharynx Normal, Moist Mucous Membranes Neck: Full Range of Motion, Normal Inspection, Non Tender, Supple Respiratory: Chest Non Tender, Lungs Clear, Normal Breath Sounds, No Accessory Muscle Use, No Respiratory Distress, Crackles (LLL subtle) Cardiovascular: Regular Rate, Rhythm, No Edema, No Gallop, No JVD, No Murmur Gastrointestinal: Normal Bowel Sounds, No Organomegaly, No Pulsatile Mass, Non Tender, Soft Back: Normal Inspection, No CVA Tenderness, Decreased Range of Motion Extremity: Normal Capillary Refill, Normal Inspection, Normal Range of Motion, Non Tender, No Calf Tenderness, No Pedal Edema Neurologic/Psychiatric: Alert, Oriented x3, No Motor/Sensory Deficits, chief commercial officer II- XII Norm as Tested, Depressed Affect Skin: Normal Color, Warm/Dry Lymphatic: No Adenopathy Results/Procedures Lab Patient resulted labs reviewed. FIM Transfers Therapy Code Descriptions/Definitions Functional Sterling Measure: 0=Not Assessed/NA 4=Minimal Assistance 1=Total Assistance 5=Supervision or Setup 2=Maximal Assistance 6=Modified Sterling 3=Moderate Assistance 7=Complete Sterling Therapy Quality Codes: 6 Independent with activity with or without an assistive device 5 Patient requires set up or clean up by helper. Patient completes activity by themselves 4 Supervision or touching assist (CGA). [place] provide cues , steadying assist 3 The helper provides less than half the effort to complete the activity 2 The helper provides more than half the effort to complete the activity 1 Dependent. The helper does all the effort to complete an activity 7 Patient refused to complete or attempt activity 9 The patient did not perform the activity before the current illness or injury 88 Not attempted due to Medical conditions or safety concerns Transfers (B, C, W/C) (FIM): 1 (Max assist x 2 at times to roll in bed and position self in bed. Max assist supine-sit. SBA/CGA at times to maintain sitting balance on side of bed.) Scootin (scooting in w/c) Rollin (with use of bedrail rolling to his right) Roll Left to Right (QC): 4 Supine to/from Sit: 3 (use of bedrail, HOB elevated, physical A to complete sitting up at EOB) Sit to/from Stand: 1 (pt attempted several times but unable to use LE's to bear wt through) Sit to Lying (QC): 3 Sit to Stand (QC): 2 Chair/[id number] Xfer(QC): 2 Bed to/from Chair: 4 (sliding transfer bed to w/c, no sliding board) Car Transfer (QC): 2 Gait Training Does the Patient Walk?: No and Walking Goal IS indicated Wheelchair Training Does the Pt Use a Wheelchair?: Yes Wheelchair (FIM): 4 Wheelchair Distance: 3=150 ft Distance: 150 Wheelchair Level of Assist: 4 Type of Wheelchair: Manual Mental Status/Objective Comprehension: 7 Expression: 7 Social Interaction: 7 Problem Solvin Memory: 7 ADL-Treatment Feedin (set up) Eating (QC): 5 Groomin (SBA to brush hair.) Oral Hygiene (QC): 4 Bathin (OT cleanses pt's rear brandyn area in supine position. Pt. able to wash front brandyn area while seated and with weight shifts. Utilizes LH sponge in sitting to wash bilateral LE.) Bathing Location: L Arm, R Arm, Chest, Abdomen Shower/Bathe Self (QC): 4 Upper Extremity Dressin Upper Body Dressing (QC): 4 Lower Extremity Dressin (Dependent assist at supine level to don brief. Mod assist to don shorts over feet, and then max assist at bed level to don over hips. Max assist to don slipper socks.) Lower Body Dressing (QC): 2 On/Off Footwear (QC): 2 Toiletin (Pt. was incontinent of bowel while in bed. OT removed depend in bed, and placed bed betts per pt. request, as he had to go quickly. After amy leting, OT cleansed brandyn area at bed level.) Toileting Hygiene (QC): 1 Toilet/Commode Transfer: 2 Toilet Transfer (QC): 2 Shower: 0 Assessment/Plan Assessment and Plan Assess & Plan/Chief Complaint Assessment: (1) Myopathy (2) COPD (chronic obstructive pulmonary disease) (3) Respiratory failure, acute and chronic (4) Polycythemia (5) Tobacco use (6) Back pain (7) Neuropathy (8) PVD (peripheral vascular disease) (9) Hx of CABG (10) Obesity hypoventilation syndrome (11) Hypertension (12) Renal insufficiency (13) Hyperlipemia (14) Arthritis of right knee (15) Hx of supraventricular tachycardia (16) Obesity (17) Diabetes mellitus (18) SIDNEY on CPAP (19) CO2 narcosis (20) CAD (coronary artery disease) (21) Status post lumbar spine surgery for decompression of spinal cord (22) UTI Klebsiella s/p Bactrim and Cipro then DC when added Jorge and Vanc due to wound (23) Anxiety (24) Wound dehiscence requiring bedside debridement and placement of wound vac by Dr Carrasco 06/19/19 (25) Diarrhea w/mild dehydration now resolving Plan: Anabelle Eubanks, Rachel, Danilo are appreciated Abx changed to Jorge and Vanc for wound dehiscence and DC Cipro and Bactrim Check labs prn IRF protocol Pain control Monitor closely Questran with Imodium to continue and HL gentle IVF High risk for C diff IS use along with Nebs (1) Myopathy (2) Postoperative wound dehiscence (3) Wound drainage (4) CO2 retention (5) Hyperkalemia (6) Renal failure (7) Elevated brain natriuretic peptide (BNP) level (8) Clot retention of urine (9) COPD (chronic obstructive pulmonary disease) (10) Polycythemia (11) Diabetes mellitus (12) Back pain (13) CAD (coronary artery disease) (14) Hyperlipemia (15) Neuropathy (16) Renal insufficiency (17) PVD (peripheral vascular disease) (18) Hypertension (19) Obesity (20) Respiratory failure, acute and chronic (21) Arthritis of right knee (22) Obesity hypoventilation syndrome (23) CO2 narcosis (24) SIDNEY on CPAP (25) Hx of supraventricular tachycardia (26) Decubitus ulcer (27) Urinary retention (28) BPH (benign prostatic hyperplasia) (29) UTI due to Klebsiella species (30) Hx of CABG (31) Status post lumbar spine surgery for decompression of spinal cord (32) Tobacco use JASPER LONG DO Jun 22, 2019 09:24
--- NOTE | 2019-06-22 10:00 | Occupational Ther Daily Note ---
OT Current Status-Daily Note Subjective Pt in bed, agrees to therapy. Pt reports 3/10 pain in left foot. Mental Status/Objective Therapy Code Descriptions/Definitions Functional Sterling Measure: 0=Not Assessed/NA 4=Minimal Assistance 1=Total Assistance 5=Supervision or Setup 2=Maximal Assistance 6=Modified Sterling 3=Moderate Assistance 7=Complete Sterling Attachments: IV, Oxygen, Other-See Comments (wound vac) ADL-Treatment Pt supine to sit with max assist, cues for technique. Sponge bath completed seated EOB. Doff shirt with SBA. Doff socks with SBA using dressing stick. Upper body bathing completed with SBA. Pt able to wash upper legs and brandyn area. Uses long handled sponge to wash lower legs and feet. Don pullover shirt with SBA. Pt instructed in use of AE for LE ADLs. Pt used agriculture internship to thread bilateral LE into shorts. Stood with max assist with bed raised to complete pant hike. Assist x2 required for safety. One person assisted with standing while another assisted to pull pants up over hips. Uses FWW for balance. Fatigues quickly. Grooming tasks completed seated EOB. Pt brushed teeth and combed hair with set up. Increased time required for ADL task completion. At end of session pt requests to use bed betts. Sit to supine with max assist. Rolls with mod assist for bed betts placement. Call light in reach. Therapy Code Descriptions/Definitions Functional Sterling Measure: 0=Not Assessed/NA 4=Minimal Assistance 1=Total Assistance 5=Supervision or Setup 2=Maximal Assistance 6=Modified Sterling 3=Moderate Assistance 7=Complete Sterling Therapy Quality Codes: 6 Independent with activity with or without an assistive device 5 Patient requires set up or clean up by helper. Patient completes activity by themselves 4 Supervision or touching assist (CGA). [place] provide cues , steadying assist 3 The helper provides less than half the effort to complete the activity 2 The helper provides more than half the effort to complete the activity 1 Dependent. The helper does all the effort to complete an activity 7 Patient refused to complete or attempt activity 9 The patient did not perform the activity before the current illness or injury 88 Not attempted due to Medical conditions or safety concerns Eating (FIM): 6 (Pt able to feed self without assist) Eating (QC): 6 Grooming (FIM): 5 Oral Hygiene (QC): 5 Bathing (FIM): 4 Upper Body (FIM): 5 Upper Body Dressing (QC): 4 Lower Body Dressing (FIM): 1 Lower Body Dressing (QC): 1 On/Off Footwear (QC): 1 Other Treatment Pt completed bilateral UE exercises to increase strength and activity tolerance needed for functional task completion. Pt performed shoulder flexion, forward press, and biceps curls x15 reps, 2 sets with dowel martina. Rest breaks between exercises secondary to fatigue. Bilateral hand ic designer standard cells exercises x20 reps with moderate resistance therapy foam. Education OT Patient Education: Modified ADL techniques Teaching Recipient: Patient Teaching Methods: Discussion Response to Teaching: Verbalize Understanding OT Short Term Goals Short Term Goals Time Frame: Jun 25, 2019 Grooming(FIM): 5 Bathing(FIM): 3 Lower Body Dressing(FIM): 3 Toileting(FIM): 3 Transfers (B,C,W/C) (FIM): 3 Toilet/Commode Transfer(FIM): 3 Additional Short Term Goals: 1-Demonstrate ADL Tasks, 2-Verbalize Understanding, 3-ImproveStrength/Leo 1=Demonstrate adherence to instructed precautions during ADL tasks. 2=Patient will verbalize/demonstrate understanding of assistive devices/modifications for ADL. 3=Patient will improve strength/tolerance for activity to enable patient to perform ADL's. OT Tobacco Packing Machine Operator Goals Fpc Goals Time Frame: Jul 09, 2019 Eating (FIM): 6 Eating (QC): 6 Groomin Oral Hygiene (QC): 6 Bathing(FIM): 5 Shower/Bathe Self (QC): 5 Upper Body Dressing(FIM): 6 Upper Body Dressing (QC): 6 Lower Body Dressing(FIM): 6 Lower Body Dressing (QC): 5 On/Off Footwear (QC): 5 Toileting(FIM): 6 Toileting Hygiene (QC): 6 Toilet/Commode Transfer(FIM): 6 Toilet/Commode Transfer (QC): 6 Shower Transfer(FIM): 5 Comprehension(FIM): 7 Expression (FIM): 7 Social Interaction(FIM): 7 Problem Solving(FIM): 7 Memory(FIM): 7 Additional Goals: 1-Demonstrate ADL Tasks, 2-Verbalize Understanding, 3- ImproveStrength/Leo 1=Demonstrate adherence to instructed precautions during ADL tasks. 2=Patient will verbalize/demonstrate understanding of assistive devices/modifications for ADL. 3=Patient will improve strength/tolerance for activity to enable patient to perform ADL's. OT Education/Plan Discharge Recommendations Plan/Recommendations: Continue POC Treatment Plan/Plan of Care Patient would benefit from OT for education, treatment and training to promote independence in ADL's, mobility, safety and/or upper extremity function for ADL's. Plan of Care: ADL Retraining, Functional Mobility, Group Exercise/Act as Ind, UE Funct Exercise/Act Treatment Duration: Jul 09, 2019 Frequency: At least 5 of 7 days/Wk (IRF) Estimated Hrs Per Day: 1.5 hours per day Agreement: Yes Rehab Potential: Fair Time/GCodes Start Time: 08:15 Stop Time: 09:45 Total Time Billed (hr/min): 90 Billed Treatment Time 1 visit, ADLx5(70minutes), EX(20minutes) FRED NEIL OT Jun 22, 2019 10:00
--- NOTE | 2019-06-22 10:14 | Progress Note - Urology ---
Progress Note-Urology Progress Notes/Assess & Plan Progress/Assessment & Plan CONTINUES WELL. WE WILL SEE AT OFFICE PREVIOUSLY SCHEDULED. Final Diagnosis INCONTINENCE NOÉ BURNS MD Jun 22, 2019 10:14
--- NOTE | 2019-06-22 10:17 | Progress Note - Urology ---
Progress Note-Urology Progress Notes/Assess & Plan Progress/Assessment & Plan UNABLE TO VOID. WE WILL INCREASE URECHOLINE TO 50MG AC AND HS Final Diagnosis RETENTION NOÉ BURNS MD Jun 22, 2019 10:17
--- NOTE | 2019-06-22 11:01 | Wound Care Assessment ---
Wound Care Assessment Date Seen by Provider: Jun 22, 2019 Time Seen by Provider: 10:15 Chief Complaint Lumbar wound. HPI The patient is a 68 year old male who is one month s/p lumbar spine operation. The patient denies fever or chills or significant pain in the incision. He was transferred to ARU from [facility] today. He is diabetic with most recent blood glucose 230. He is able to walk, but just. I have been asked to see because of draining lumbar wound with slough present. .06/22/19 Interval Note: The patient denies fever, chills, significant chest or abdominal complaints. The irritated sebaceous cyst of the L elbow is less inflamed Wound managed with Wound VAC. Will defer to Neurosurgery service in regards to wound management. Will see as needed. Past Medical History: Admits Diabetes Type II, Admits Heart Disease (CAD, CHF, SVT), Admits Peripheral Artery Disease (Multiple BLE interventions. Additionally has Sleep apnea and COPD.) Smoking Status: Current Everyday Smoker Recreational Drug Use: No Alcohol Use: Denies Use Review of Systems General: No Chills Pulmonary: No Dyspnea Cardiovascular: No: Chest Pain Gastrointestinal: No: Abdominal Pain Exam Vital Signs Date Time Temp Pulse Resp B/P (MAP) Pulse Ox O2 Delivery O2 Flow Rate FiO2 06/22/19 10:00 92 Nasal Cannula 2.00 06/22/19 07:53 99.4 74 18 148/66 (93) Capillary Refill : General Appearance: no apparent distress HEENT: normal ENT inspection Neck: normal inspection Cardiovascular: regular rate, rhythm Respiratory: lungs clear Gastrointestinal: non tender Back: other (Wound VAC dressing intact.) Results Laboratory Tests 06/21/19 10:51: Glucometer 230H 06/21/19 12:45: Vancomycin Level Trough 18.3 06/21/19 15:21: Glucometer 205H 06/21/19 20:36: Glucometer 182H 06/22/19 05:45: Glucometer 168H Microbiology 06/18/19 Blood Culture - Preliminary, Resulted No growth Assessment/Plan/Dx 1. Dehiscence of surgical wound, lumbar, s/p spinal operation. 2. 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 3. Diabetes, with poor glucose control. 4. Morbid obesity. 5. Tobacco abuse. 6. Disuse myopathy. 7. Congestive heart failure. 8. Recent episode of respiratory failure. Plan: Will defer to Neurosurgery service in regards wound management. Will see as needed. SOLEDAD QUINTERO MD Jun 22, 2019 11:01
--- NOTE | 2019-06-22 11:13 | Physical Therapy Daily Note ---
PT Daily Note-Current Subjective Pt agreeable to PT session. No new c/o's. Still hesitant on performing ex's on LLE due to continues with increased pain and heaviness since doing them the first time. Pain Numeric Pain Scale: 3 Comment: left leg pain, back and L thigh med and lat is just sore Appearance pt in bed upon arrival, awake and alert. At end of session, pt sitting up at EOB with pillows and wedges for support, per pt request, call light, phone and bedside table within reach. Mental Status Patient Orientation: Person, Place, Time, Eyes Open, Situation Attachments: Saline Lock, Oxygen (1.5L/NC), Drains wound vac Transfers Therapy Code Descriptions/Definitions Functional [place] Measure: 0=Not Assessed/NA 4=Minimal Assistance 1=Total Assistance 5=Supervision or Setup 2=Maximal Assistance 6=Modified [place] 3=Moderate Assistance 7=Complete [place] Therapy Quality Codes: 6 Independent with activity with or without an assistive device 5 Patient requires set up or clean up by helper. Patient completes activity by themselves 4 Supervision or touching assist (CGA). [place] provide cues , steadying assist 3 The helper provides less than half the effort to complete the activity 2 The helper provides more than half the effort to complete the activity 1 Dependent. The helper does all the effort to complete an activity 7 Patient refused to complete or attempt activity 9 The patient did not perform the activity before the current illness or injury 88 Not attempted due to Medical conditions or safety concerns Transfers (B, C, W/C) (FIM): 3 Scootin (great effort, use of bedrails and HOB flat) Rollin (use of bedrails) Supine to/from Sit: 4 (min A to complete sitting up right) Sit to/from Stand: 3 (min to mod A with use of gait belt) Exercises Supine Ex: Bridging, Ankle pumps ((+) toe curls), Quad Set, Rolling, Glut sets, Heel Slides, Short Arc Quads, Straight leg raise, Hip abd/add Supine Reps: 20 (AAROM LLE with some ex's) Seated Therapy Exercises: Ankle pumps, Sit to stand, Long arc quads, Hip flexion, Reaching activity, Hip abd/add, Glut set Seated Reps: 20 ((+) trunk flex, ext, lateral leans, rotation) Standing: Sit to Stand Standing Reps: 4 (raised EOB to walker, allowing pt to maintain hand placement on walker at this times, min to mod A to complete standing, CGA stand to sit) Neuromuscular trunk control, reaching activities, LLE movements, standing with wt shifting Treatments balance, standing, transfers, trunk control, strengthening, ROM, activity tolerance, functional mobility Assessment Current Status: Good Progress improved abilities with sit to from stand transfers and active movement of LLE PT Short Term Goals Short Term Goals Time Frame: Jun 25, 2019 Transfers (B,C,W/C) (FIM): 3 Gait (FIM): 1 Gait Distance Comment: 5' Gait Level of Assist: 3 Gait Assistive Device: FWW Wheelchair Distance: 150 PT Metal And Plastic Heater Goals Half-Way Goals PT [employer] And Plastic Heater Goals Time Frame: Jul 09, 2019 Transfers (B,C,W/C) (FIM): 4 Sit to Lying (QC): 4 Lying-Sitting on Side/Bed(QC): 4 Sit to Stand (QC): 3 Rollin (with use of bedrail rolling to his right) Roll Left to Right (QC): 4 Chair/Pwy-sw-Jytfc Xfer(QC): 3 Car Transfer (QC): 3 Gait (FIM): 1 Distance: 20' Walk 10 feet (QC): 3 Walk 10ft-Uneven Surface(QC): 3 Gait Level of Assist: 4 Gait Assistive Device: FWW Wheelchair (FIM): 6 Distance: 150' Wheelchair Level of Assist: 5 Wheel 50 feet with 2 turns (QC: 4 PT Plan Treatment/Plan Treatment Plan: Continue Plan of Care Treatment Plan: Bed Mobility, Concurrent Therapy, Education, Functional Activity Leo, Functional Strength, Group Therapy, Gait, Safety, Therapeutic Exercise, Transfers Treatment Duration: Jul 09, 2019 Frequency: At least 5 of 7 days/Wk (IRF) Estimated Hrs Per Day: 1.5 hours per day Patient and/or Family Agrees t: Yes Safety Risks/Education Patient Education: Transfer Techniques, Correct Positioning, Safety Issues Teaching Recipient: Patient Teaching Methods: Demonstration, Discussion Response to Teaching: Verbalize Understanding, Return Demonstration Time/GCodes Time In: 1100 Time Out: 1230 Total Billed Treatment Time: 90 Total Billed Treatment 1 visit, FA x2 units, EX x2 units, NM x2 units ARISTIDES LONDONO ACCOUNTS PAYABLE SUPERVISOR Jun 22, 2019 11:13
[2019-06-22] MEDS: ROFLUMILAST 500 MCG TAB (DALIRESP) PO SCH (14:23)
--- NOTE | 2019-06-22 15:08 | Pulmonary Progress Note ---
Subjective Time Seen by a Provider: 11:36 Sepsis Event Evaluation Height, Weight, BMI Height: 5'10.00" Weight: 265lbs. 0.0oz. 120.044268ul; 38.0 BMI Method:Stated Exam Exam Vital Signs Date Time Temp Pulse Resp B/P (MAP) Pulse Ox O2 Delivery O2 Flow Rate FiO2 06/22/19 12:00 98.8 76 20 132/56 (81) 95 Nasal Cannula 3.00 06/22/19 10:00 92 Nasal Cannula 2.00 06/22/19 07:53 99.4 74 18 148/66 (93) 94 Nasal Cannula 3.00 06/22/19 04:32 98.3 75 20 124/49 (74) 94 Nasal Cannula 3.00 06/22/19 03:10 94 Nasal Cannula 3.00 06/22/19 00:37 98.0 74 18 131/66 (87) 95 Nasal Cannula 3.00 06/21/19 20:35 96 Nasal Cannula 2.00 06/21/19 20:14 96 Nasal Cannula 2.50 06/21/19 20:05 80 18 129/62 (84) 96 Nasal Cannula 2.00 06/21/19 19:46 98.8 78 18 138/65 (89) 94 Nasal Cannula 3.00 06/21/19 15:52 99.7 83 16 144/56 (85) 96 Nasal Cannula 3.00 06/21/19 15:14 92 Nasal Cannula 3.00 I & O 06/22/19 07:00 Intake Total 1805 ml Output Total 1725 ml Balance 80 ml Height & Weight Height: 5'10.00" Weight: 265lbs. 0.0oz. 120.252170vs; 38.0 BMI Method:Stated General Appearance: No Apparent Distress, WD/WN, Chronically ill, Obese HEENT: PERRL/EOMI, Normal ENT Inspection, Pharynx Normal, Moist Mucous Membranes Neck: Full Range of Motion, Normal Inspection, Non Tender, Supple Respiratory: Chest Non Tender, Lungs Clear, Normal Breath Sounds, No Accessory Muscle Use, No Respiratory Distress Cardiovascular: Regular Rate, Rhythm, No Edema, No Gallop, No JVD, No Murmur Peripheral Pulses: 2+ Dorsalis Pedis (R), 2+ Left Dors-Pedis (L) Gastrointestinal: non tender Extremity: Normal Capillary Refill, Normal Inspection, Normal Range of Motion, Non Tender, No Calf Tenderness, No Pedal Edema Neurologic/Psychiatric: Alert, Oriented x3, No Motor/Sensory Deficits, rocket scientist II- XII Norm as Tested, Depressed Affect Skin: Normal Color, Warm/Dry Lymphatic: No Adenopathy Results Lab Laboratory Tests 06/21/19 07:26 Assessment/Plan Assessment/Plan Hypoxia probably secondary to COPD -Monitor Pt has worsening Fatigue with SOB -He has not been using CPAP at night -Check ABG, labs and CXR Dehiscence of lumbar surgical wound -Wound care following -Labs pending Morbid obesity with OHS -Home CPAP machine Anemia -Monitor DM Tobacco use Debility ANIYA DUDLEY DO Jun 22, 2019 15:07
[2019-06-22] MEDS: ENOXAPARIN 40 MG/0.4 ML (LOVENOX) SYR SC SCH (16:59)
--- NOTE | 2019-06-22 19:13 | NUR ---
bedside report received from YOVANI LOUIE, ASSUME CARE OF PT
[2019-06-22] MEDS: GABAPENTIN 600 MG (NEURONTIN) TAB PO SCH (20:44)
[2019-06-22] MEDS: LACTOBACILLUS ACIDOPHILUS (PROBIOTIC) CAPSULE PO SCH (20:45)
[2019-06-22] MEDS: QUEtiapine 25 MG (SEROquel) TAB IMMEDIATE RELEASE PO SCH (20:47)
--- NOTE | 2019-06-22 21:00 | NUR ---
assessments & interventions completed, see assessments & interventions, up to bedside sitting on edge of bed, fsbs 212 NovoLog 3 units & scheduled Levemir 10 units given, will wait for 1hr between Questran & scheduled meds
--- NOTE | 2019-06-22 21:49 | NUR ---
c/o foot pain level 6/10 on numeric scale, Lortab 5 1 tab po given, bladder scan shows 267ml
--- NOTE | 2019-06-22 22:30 | NUR ---
rates pain at 2/10 on numeric scale
[2019-06-22] MEDS: LORazepam 0.5 MG (ATIVAN) TABLET PO PRN (22:35)
--- NOTE | 2019-06-22 22:35 | NUR ---
requesting nerve pill, Ativan 0.25mg given po
[2019-06-23] MEDS: MEROPENEM 500 MG/SWFI 10 ML IV PUSH IV SCH ×8 (01:38→19:55)
[2019-06-23] MEDS ORDERED: LIDOCAINE UROJET 2% GEL 10 ML PKG ONE ×2 (01:40→22:51)
--- NOTE | 2019-06-23 01:40 | NUR ---
bladder scan shows 519
--- NOTE | 2019-06-23 01:52 | NUR ---
straight cath & received 525 light carolee colored urine
[2019-06-23] MEDS: RT-ALBUTEROL/IPRATROPIUM 3 ML (DUONEB) VIAL INH SCH ×3 (02:29→16:32)
[2019-06-23 03:55] VITALS: BP 125/61
[2019-06-23] MEDS: BETHANECHOL 25 MG (URECHOLINE) TAB PO SCH ×4 (05:45→20:49)
[2019-06-23] MEDS: PANTOPRAZOLE 40 MG (PROTONIX) TAB PO SCH (05:46)
[2019-06-23] MEDS: LACTOBACILLUS ACIDOPHILUS (PROBIOTIC) CAPSULE PO SCH ×4 (05:46→20:49)
[2019-06-23] MEDS: SILDENAFIL 20 MG (REVATIO) TAB NON-FORMULARY PO SCH ×3 (05:46→20:54)
[2019-06-23] MEDS: MULTIVIT W/MINERALS TAB (THERAGRAN M) PO SCH (05:46)
[2019-06-23] MEDS: CATHETER FLUSH 10 ML SYR IV SCH ×3 (05:50→22:28)
[2019-06-23 06:01] LABS: BASOPHILS % (AUTO) 1 % (0-10); EOSINOPHILS # (AUTO) 0.3 10^3/uL (0.0-0.3); EOSINOPHILS % (AUTO) 5 % (0-10); HEMATOCRIT 27 % (40-54); LYMPHOCYTES # (AUTO) 1.5 X 10^3 (1.0-4.0); LYMPHOCYTES % (AUTO) 26 % (12-44); MEAN CORPUSCULAR HEMOGLOBIN 27 PG (25-34); MEAN CORPUSCULAR HGB CONC 30 G/DL (32-36); MEAN CORPUSCULAR VOLUME 92 FL (80-99); MEAN PLATELET VOLUME 9.6 FL (7.4-10.4); MONOCYTES # (AUTO) 0.7 X 10^3 (0.0-1.0); MONOCYTES % (AUTO) 11 % (0-12); NEUTROPHILS # (AUTO) 3.2 X 10^3 (1.8-7.8); NEUTROPHILS % (AUTO) 57 % (42-75); PLATELET COUNT 272 10^3/uL (130-400); WHITE BLOOD COUNT 5.7 10^3/uL (4.3-11.0)
[2019-06-23] MEDS: inSUlin ASPART (NovoLOG) 1 UNIT/0.01 ML (CHARGE PER UNIT) SC SCH ×4 (06:04→20:57)
[2019-06-23 06:29] LABS: BILIRUBIN,TOTAL 0.2 MG/DL (0.1-1.0); BUN/CREATININE RATIO 19; CALCIUM 8.9 MG/DL (8.5-10.1); CARBON DIOXIDE 22 MMOL/L (21-32); CHLORIDE 105 MMOL/L (98-107); CREATININE SERUM 1.11 MG/DL (0.60-1.30); GFR ESTIMATED > 60; GLUCOSE 160 MG/DL (70-105); POTASSIUM 4.7 MMOL/L (3.6-5.0); SODIUM 136 MMOL/L (135-145)
[2019-06-23 06:30] LABS: ALANINE AMINOTRANSFERASE 16 U/L (0-55); ALKALINE PHOSPHATASE 106 U/L (40-136); TOTAL PROTEIN 6.3 GM/DL (6.4-8.2)
[2019-06-23] MEDS: CHOLESTYRAMINE 4 GM (QUESTRAN LITE, PREVALITE) PKT PO SCH ×3 (06:57→22:28)
--- NOTE | 2019-06-23 07:15 | NUR ---
bedside report given to YOVANI LOUIE
[2019-06-23 08:00] VITALS: BP 157/64
[2019-06-23] MEDS: THEOPHYLLINE ER 400 MG TAB (THEO-24) PO SCH (08:46)
[2019-06-23] MEDS: GABAPENTIN 300 MG (NEURONTIN) CAP PO SCH (08:46)
[2019-06-23] MEDS: TAMSULOSIN 0.4 MG (FLOMAX) CAP PO SCH (08:46)
[2019-06-23] MEDS: amLODIPine 10 MG (NORVASC) TAB PO SCH (08:46)
[2019-06-23] MEDS: meTOprolol TARTRATE 25 MG (LOPRESSOR) TABLET PO SCH ×2 (08:46→20:53)
--- NOTE | 2019-06-23 08:55 | PM&R Progress Note ---
Subjective HPI/CC On Admission Date Seen by Provider: Jun 23, 2019 Time Seen by Provider: 08:30 CC: Critical illness debility HPI: This is a 68-year-old white male clinic patient of Dr. 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 Received report from Dr. Montesinos at [facility] in [place]. Patient was admitted there after difficulty weaning off the ventilator after he was intubated after failed noninvasive ventilator support after he was transferred from [facility] after his spinal surgery to [facility]. He remained on the ventilator for 3 weeks has some vocal cord dysfunction due to the long intubation status and most recently having urinary retention after Alves catheter was discontinued and currently has Klebsiella UTI maintained on Bactrim and Cipro double coverage because of such a significant organism. He had some significant hallucinations last week but that has been resolved. Patient currently remains on 2 L by nasal cannula of oxygen receives nebulizer treatments of DuoNeb every 6 hours and uses his home CPAP machine. His prior level of functioning was independent of ADLs and ambulation. I reviewed all of his current medications and retail pharmacy merchandiser here at the hospital has confirmed accuracy and all those have been continued. He does have a PICC line in his right upper arm. Upon review of the history and physical the following information was obtained: Past medical history: diabetes mellitus on oral therapy, obstructive sleep apnea, COPD with chronic respiratory failure, polycythemia due to chronic respiratory failure, tobacco use, chronic low back pain, peripheral neuropathy, PVD, CAD previous bypass surgery, thrombocytopenia, morbid obesity with hypoventilation syndrome, congestive heart failure with acute on chronic diastolic type with volume overload at admission to [facility], hyperlipidemia, hypertension, carpal tunnel syndrome, severe DJD of the right knee. He also has a history of SVT. Subjective/Events-last exam Left foot neuropathy is an issue but he does take Gabapentin Increasing his oral fluids Hgb remains low at 8.0 Wound vac was changed today Decreased diarrhea maintained on Questran will minimize that if he dos get constipated Psych eval for anxiety was performed today at 11:30 Picc line dysfunction will be addressed by Picc line nurses Pain is okay he reports Walked 15 feet but it was difficult for him Weening O2 Urinary retention is still an issue but Dr. Burton is managing OT reports he is making progress He is reporting he will go home to live alone after DC High risk for C-Diff colitis. Very complex situation. Conferred with RN Reviewed therapy notes Check meds and labs Review of Systems General: Fatigue Pulmonary: Dyspnea Gastrointestinal: Diarrhea Musculoskeletal: back pain Objective Exam Vital Signs Vital Signs Date Time Temp Pulse Resp B/P (MAP) Pulse Ox O2 Delivery O2 Flow Rate FiO2 06/23/19 21:26 97 Nasal Cannula 2.00 06/23/19 20:00 98.5 82 20 155/67 (96) Capillary Refill : General Appearance: No Apparent Distress, WD/WN, Chronically ill, Obese HEENT: PERRL/EOMI, Normal ENT Inspection, Pharynx Normal, Moist Mucous Membranes Neck: Full Range of Motion, Normal Inspection, Non Tender, Supple Respiratory: Chest Non Tender, Lungs Clear, Normal Breath Sounds, No Accessory Muscle Use, No Respiratory Distress, Crackles (LLL subtle) Cardiovascular: Regular Rate, Rhythm, No Edema, No Gallop, No JVD, No Murmur Gastrointestinal: Normal Bowel Sounds, No Organomegaly, No Pulsatile Mass, Non Tender, Soft Back: Normal Inspection, No CVA Tenderness, Decreased Range of Motion Extremity: Normal Capillary Refill, Normal Inspection, Normal Range of Motion, Non Tender, No Calf Tenderness, No Pedal Edema Neurologic/Psychiatric: Alert, Oriented x3, No Motor/Sensory Deficits, match maker II- XII Norm as Tested, Depressed Affect Skin: Normal Color, Warm/Dry Lymphatic: No Adenopathy Results/Procedures Lab Laboratory Tests 06/23/19 05:50 Patient resulted labs reviewed. FIM Transfers Therapy Code Descriptions/Definitions Functional [place] Measure: 0=Not Assessed/NA 4=Minimal Assistance 1=Total Assistance 5=Supervision or Setup 2=Maximal Assistance 6=Modified [place] 3=Moderate Assistance 7=Complete [place] Therapy Quality Codes: 6 Independent with activity with or without an assistive device 5 Patient requires set up or clean up by helper. Patient completes activity by themselves 4 Supervision or touching assist (CGA). [place] provide cues , steadying assist 3 The helper provides less than half the effort to complete the activity 2 The helper provides more than half the effort to complete the activity 1 Dependent. The helper does all the effort to complete an activity 7 Patient refused to complete or attempt activity 9 The patient did not perform the activity before the current illness or injury 88 Not attempted due to Medical conditions or safety concerns Transfers (B, C, W/C) (FIM): 3 Scootin (great effort, use of bedrails and HOB flat) Rollin (use of bedrails) Roll Left to Right (QC): 4 Supine to/from Sit: 4 (min A to complete sitting up right) Sit to/from Stand: 3 (min to mod A with use of gait belt) Sit to Lying (QC): 3 Sit to Stand (QC): 2 Chair/Btb-id-Jclym Xfer(QC): 2 Bed to/from Chair: 4 (sliding transfer bed to w/c, no sliding board) Car Transfer (QC): 2 Gait Training Does the Patient Walk?: No and Walking Goal IS indicated Wheelchair Training Does the Pt Use a Wheelchair?: Yes Wheelchair (FIM): 4 Wheelchair Distance: 3=150 ft Distance: 150 Wheelchair Level of Assist: 4 Type of Wheelchair: Manual Mental Status/Objective Comprehension: 7 Expression: 7 Social Interaction: 7 Problem Solvin Memory: 7 ADL-Treatment Feedin (Pt able to feed self without assist) Eating (QC): 6 Groomin Oral Hygiene (QC): 5 Bathin Bathing Location: L Arm, R Arm, Chest, Abdomen Shower/Bathe Self (QC): 4 Upper Extremity Dressin Upper Body Dressing (QC): 4 Lower Extremity Dressin Lower Body Dressing (QC): 1 On/Off Footwear (QC): 1 Toiletin (Pt. was incontinent of bowel while in bed. OT removed depend in bed, and placed bed betts per pt. request, as he had to go quickly. After toileting, OT cleansed brandyn area at bed level.) Toileting Hygiene (QC): 1 Toilet/Commode Transfer: 2 Toilet Transfer (QC): 2 Shower: 0 Assessment/Plan Assessment and Plan Assess & Plan/Chief Complaint Assessment: (1) Myopathy (2) COPD (chronic obstructive pulmonary disease) (3) Respiratory failure, acute and chronic (4) Polycythemia (5) Tobacco use (6) Back pain (7) Neuropathy (8) PVD (peripheral vascular disease) (9) Hx of CABG (10) Obesity hypoventilation syndrome (11) Hypertension (12) Renal insufficiency (13) Hyperlipemia (14) Arthritis of right knee (15) Hx of supraventricular tachycardia (16) Obesity (17) Diabetes mellitus (18) SIDNEY on CPAP (19) CO2 narcosis (20) CAD (coronary artery disease) (21) Status post lumbar spine surgery for decompression of spinal cord (22) UTI Klebsiella s/p Bactrim and Cipro then DC when added Jorge and Vanc due to wound (23) Anxiety (24) Wound dehiscence requiring bedside debridement and placement of wound vac by Dr Carrasco 06/19/19 (25) Diarrhea w/mild dehydration now resolving Plan: Drs Malini, Anabelle, Rachel, Danilo are appreciated Abx changed to Jorge and Vanc for wound dehiscence and DC Cipro and Bactrim Check labs prn IRF protocol Pain control Monitor closely Questran with Imodium to continue and HL gentle IVF High risk for C diff IS use along with Nebs Continue progress of PT with ambulation (1) Myopathy (2) Postoperative wound dehiscence (3) Wound drainage (4) CO2 retention (5) Hyperkalemia (6) Renal failure (7) Elevated brain natriuretic peptide (BNP) level (8) Clot retention of urine (9) COPD (chronic obstructive pulmonary disease) (10) Polycythemia (11) Diabetes mellitus (12) Back pain (13) CAD (coronary artery disease) (14) Hyperlipemia (15) Neuropathy (16) Renal insufficiency (17) PVD (peripheral vascular disease) (18) Hypertension (19) Obesity (20) Respiratory failure, acute and chronic (21) Arthritis of right knee (22) Obesity hypoventilation syndrome (23) CO2 narcosis (24) SIDNEY on CPAP (25) Hx of supraventricular tachycardia (26) Decubitus ulcer (27) Urinary retention (28) BPH (benign prostatic hyperplasia) (29) UTI due to Klebsiella species (30) Hx of CABG (31) Status post lumbar spine surgery for decompression of spinal cord (32) Tobacco use JASPER LONG DO Jun 23, 2019 08:55
[2019-06-23] MEDS: DICLOFENAC 1% GEL 100 GM (VOLTAREN) TUBE TOP SCH ×4 (09:00→20:59)
--- NOTE | 2019-06-23 09:41 | Pulmonary Progress Note ---
Subjective Time Seen by a Provider: 13:03 Subjective/Events-last exam No complications noted. SOB appears to be stable. Sepsis Event Evaluation Height, Weight, BMI Height: 5'" Weight: 265lbs. 0.0oz. 120.249571ck; 38.0 BMI Method:Stated Exam Exam Vital Signs Date Time Temp Pulse Resp B/P (MAP) Pulse Ox O2 Delivery O2 Flow Rate FiO2 06/23/19 09:08 96 Nasal Cannula 2.00 06/23/19 08:00 97.8 81 20 157/64 (95) 96 Nasal Cannula 2.00 06/23/19 03:55 97.6 69 20 125/61 (82) 94 Nasal Cannula 2.00 06/23/19 02:29 95 NIV CPAP 2.00 06/22/19 23:55 97.2 72 18 100/58 (72) 95 Nasal Cannula 2.00 06/22/19 21:16 92 Nasal Cannula 2.00 06/22/19 21:00 Nasal Cannula 2.00 06/22/19 20:45 85 20 147/63 (91) 94 Nasal Cannula 1.50 06/22/19 19:13 99.2 84 22 148/62 (90) 95 Nasal Cannula 1.50 06/22/19 15:59 92 Nasal Cannula 2.00 06/22/19 15:47 98.5 89 20 152/65 (94) 93 Nasal Cannula 3.00 06/22/19 12:00 98.8 76 20 132/56 (81) 95 Nasal Cannula 3.00 06/22/19 10:00 92 Nasal Cannula 2.00 I & O 06/23/19 07:00 Intake Total 2110 ml Output Total 1225 ml Balance 885 ml Height & Weight Height: 5" Weight: 265lbs. 0.0oz. 120.887410cl; 38.0 BMI Method:Stated General Appearance: No Apparent Distress, WD/WN, Chronically ill, Obese HEENT: PERRL/EOMI, Normal ENT Inspection, Pharynx Normal, Moist Mucous Membranes Neck: Full Range of Motion, Normal Inspection, Non Tender, Supple Respiratory: Chest Non Tender, Lungs Clear, Normal Breath Sounds, No Accessory Muscle Use, No Respiratory Distress, Crackles (LLL subtle) Cardiovascular: Regular Rate, Rhythm, No Edema, No Gallop, No JVD, No Murmur Peripheral Pulses: 2+ Dorsalis Pedis (R), 2+ Left Dors-Pedis (L) Gastrointestinal: non tender Extremity: Normal Capillary Refill, Normal Inspection, Normal Range of Motion, Non Tender, No Calf Tenderness, No Pedal Edema Neurologic/Psychiatric: Alert, Oriented x3, No Motor/Sensory Deficits, spd manager II- XII Norm as Tested, Depressed Affect Skin: Normal Color, Warm/Dry Lymphatic: No Adenopathy Results Lab Laboratory Tests 06/23/19 05:50 Assessment/Plan Assessment/Plan Hypoxia probably secondary to COPD -Monitor Dehiscence of lumbar surgical wound -Wound care following -Wound vac -surgery following Morbid obesity with OHS -Home CPAP machine Anemia -Monitor DM Tobacco use Debility ANIYA DUDLEY DO Jun 23, 2019 09:41
--- NOTE | 2019-06-23 10:07 | Occupational Ther Daily Note ---
OT Current Status-Daily Note Subjective Pt in bed, agrees to treatment. Pt reports 3/10 pain in left foot. Mental Status/Objective Therapy Code Descriptions/Definitions Functional [place] Measure: 0=Not Assessed/NA 4=Minimal Assistance 1=Total Assistance 5=Supervision or Setup 2=Maximal Assistance 6=Modified [place] 3=Moderate Assistance 7=Complete [place] Attachments: Oxygen, Other-See Comments (wound vac) ADL-Treatment Pt supine to sit with assist for trunk. Sat EOB with supervision for balance during ADL tasks. Sponge bath completed at EOB. Doff shirt with SBA. Doff sock with SBA using AE. Upper body bathing completed with SBA. Pt able to wash bilateral upper legs and brandyn area. Uses long handled sponge to wash lower legs/feet. Assist to wash buttocks. Don pullover shirt with SBA. Pt used travel assistant to thread bilateral LE into Depends and pants with minimal assistance. Sit to stand with mod assist with bed raised. Assist to pull pants up over hips. Pt brushed teeth and combed hair with set up while seated EOB. Occasional rest breaks required. Increased time for ADL tasks. Therapy Code Descriptions/Definitions Functional [place] Measure: 0=Not Assessed/NA 4=Minimal Assistance 1=Total Assistance 5=Supervision or Setup 2=Maximal Assistance 6=Modified [place] 3=Moderate Assistance 7=Complete [place] Therapy Quality Codes: 6 Independent with activity with or without an assistive device 5 Patient requires set up or clean up by helper. Patient completes activity by themselves 4 Supervision or touching assist (CGA). [place] provide cues , steadying assist 3 The helper provides less than half the effort to complete the activity 2 The helper provides more than half the effort to complete the activity 1 Dependent. The helper does all the effort to complete an activity 7 Patient refused to complete or attempt activity 9 The patient did not perform the activity before the current illness or injury 88 Not attempted due to Medical conditions or safety concerns Grooming (FIM): 5 Oral Hygiene (QC): 5 Bathing (FIM): 4 Shower/Bathe Self (QC): 3 Upper Body (FIM): 5 Upper Body Dressing (QC): 4 Lower Body Dressing (FIM): 2 Lower Body Dressing (QC): 2 Other Treatment Pt performed sit to stand x3 trials with min to mod assist with bed raised. Pt stood with FWW, CGA for balance. Pt able to sidestep with FWW and min assist for safety. Pt fatigues with activity and requires seated rest breaks between trials. Pt sitting EOB with needs met after session. OT Short Term Goals Short Term Goals Time Frame: Jun 25, 2019 Grooming(FIM): 5 Bathing(FIM): 3 Lower Body Dressing(FIM): 3 Toileting(FIM): 3 Transfers (B,C,W/C) (FIM): 3 Toilet/Commode Transfer(FIM): 3 Additional Short Term Goals: 1-Demonstrate ADL Tasks, 2-Verbalize Understanding, 3-ImproveStrength/Leo 1=Demonstrate adherence to instructed precautions during ADL tasks. 2=Patient will verbalize/demonstrate understanding of assistive devices/modifications for ADL. 3=Patient will improve strength/tolerance for activity to enable patient to perform ADL's. OT Construction Equipment Mechanic Helper Goals Intermediate Goals Time Frame: Jul 09, 2019 Eating (FIM): 6 Eating (QC): 6 Groomin Oral Hygiene (QC): 6 Bathing(FIM): 5 Shower/Bathe Self (QC): 5 Upper Body Dressing(FIM): 6 Upper Body Dressing (QC): 6 Lower Body Dressing(FIM): 6 Lower Body Dressing (QC): 5 On/Off Footwear (QC): 5 Toileting(FIM): 6 Toileting Hygiene (QC): 6 Toilet/Commode Transfer(FIM): 6 Toilet/Commode Transfer (QC): 6 Shower Transfer(FIM): 5 Comprehension(FIM): 7 Expression (FIM): 7 Social Interaction(FIM): 7 Problem Solving(FIM): 7 Memory(FIM): 7 Additional Goals: 1-Demonstrate ADL Tasks, 2-Verbalize Understanding, 3- ImproveStrength/Leo 1=Demonstrate adherence to instructed precautions during ADL tasks. 2=Patient will verbalize/demonstrate understanding of assistive devices/modifications for ADL. 3=Patient will improve strength/tolerance for activity to enable patient to perform ADL's. OT Education/Plan Discharge Recommendations Plan/Recommendations: Continue POC Treatment Plan/Plan of Care Patient would benefit from OT for education, treatment and training to promote independence in ADL's, mobility, safety and/or upper extremity function for ADL's. Plan of Care: ADL Retraining, Functional Mobility, Group Exercise/Act as Ind, UE Funct Exercise/Act Treatment Duration: Jul 09, 2019 Frequency: At least 5 of 7 days/Wk (IRF) Estimated Hrs Per Day: 1.5 hours per day Agreement: Yes Rehab Potential: Fair Time/GCodes Start Time: 08:00 Stop Time: 09:00 Total Time Billed (hr/min): 60 Billed Treatment Time 1 visit, ADLx3(45minutes), FA(15minutes) FRED NEIL OT Jun 23, 2019 10:07
--- NOTE | 2019-06-23 10:10 | NUR ---
Pastoral care visit.
[2019-06-23] MEDS ORDERED: CHOLESTYRAMINE 4 GM (QUESTRAN LITE, PREVALITE) PKT ONE (12:08)
--- NOTE | 2019-06-23 12:43 | Physical Therapy Daily Note ---
PT Daily Note-Current Subjective Pt. in bed, agrees to Rx. States he feels he is making a little progress, does not use O2 at home and hopes to be off it when he returns home.States his left leg and foot arent working like he has hoped Pain Numeric Pain Scale: 3 Location: Left Location Body Site: Hip Pain Description: Ache Mental Status Patient Orientation: Normal For Age Attachments: Oxygen (2L), Other-See Comments ([place]) Transfers Therapy Code Descriptions/Definitions Functional [place] Measure: 0=Not Assessed/NA 4=Minimal Assistance 1=Total Assistance 5=Supervision or Setup 2=Maximal Assistance 6=Modified [place] 3=Moderate Assistance 7=Complete [place] Therapy Quality Codes: 6 Independent with activity with or without an assistive device 5 Patient requires set up or clean up by helper. Patient completes activity by themselves 4 Supervision or touching assist (CGA). [place] provide cues , steadying assist 3 The helper provides less than half the effort to complete the activity 2 The helper provides more than half the effort to complete the activity 1 Dependent. The helper does all the effort to complete an activity 7 Patient refused to complete or attempt activity 9 The patient did not perform the activity before the current illness or injury 88 Not attempted due to Medical conditions or safety concerns Transfers (B, C, W/C) (FIM): 3 Scootin Rollin Supine to/from Sit: 3 Sit to/from Stand: 3 raised height of seating surface really helps sit to stand ability. Gait Training Does the Patient Walk?: Yes Gait (FIM): 1 Distance (FIM): 1=up to 49 ft (15ft, 12ft) Gait Level of Assist: 4 Gait Persons Needed: 2 (assist for O2 and [place] as well as w/c to f/u) Gait Assistive Device: FWW slow, small strides, instruction for sequence, antalgia Wheelchair Training Does the Pt Use a Wheelchair?: Yes Wheelchair (FIM): 2 Wheelchair Distance: 2=315-24 ft (100ft) Wheelchair Level of Assist: 3 Type of Wheelchair: Manual Exercises Supine Ex: Bridging, Ankle pumps (HC stretch L 3x20s), Quad Set, Rolling (min asssit), Glut sets, Heel Slides, Short Arc Quads, Scooting, Hip abd/add Supine Reps: 12 Seated Therapy Exercises: Ankle pumps, Sit to stand, Long arc quads, Hip abd/add Seated Reps: 12 Treatments standing and pregait activities for wt shift left to right , SPTs bed to w/c and back with FWW CGA and instruction Assessment Current Status: Good Progress pt. fatigued but shows good progress toward gait PT Short Term Goals Short Term Goals Time Frame: Jun 25, 2019 Transfers (B,C,W/C) (FIM): 3 Gait (FIM): 1 Gait Distance Comment: 5' Gait Level of Assist: 3 Gait Assistive Device: FWW Wheelchair Distance: 150 PT Administrative Associate Goals Administrative Associate Goals PT Administrative Associate Goals Time Frame: Jul 09, 2019 Transfers (B,C,W/C) (FIM): 4 Sit to Lying (QC): 4 Lying-Sitting on Side/Bed(QC): 4 Sit to Stand (QC): 3 Rollin (use of bedrails) Roll Left to Right (QC): 4 Chair/[id number]-Mbdsi Xfer(QC): 3 Car Transfer (QC): 3 Gait (FIM): 1 Distance: 20' Walk 10 feet (QC): 3 Walk 10ft-Uneven Surface(QC): 3 Gait Level of Assist: 4 Gait Assistive Device: FWW Wheelchair (FIM): 6 Distance: 150' Wheelchair Level of Assist: 5 Wheel 50 feet with 2 turns (QC: 4 PT Plan Treatment/Plan Treatment Plan: Continue Plan of Care Treatment Plan: Bed Mobility, Concurrent Therapy, Education, Functional Activity Leo, Functional Strength, Group Therapy, Gait, Safety, Therapeutic Exercise, Transfers Treatment Duration: Jul 09, 2019 Frequency: At least 5 of 7 days/Wk (IRF) Estimated Hrs Per Day: 1.5 hours per day Patient and/or Family Agrees t: Yes Safety Risks/Education Patient Education: Gait Training, Transfer Techniques, Correct Positioning, W/C Management, Disease Process, Safety Issues Teaching Recipient: Patient Teaching Methods: Demonstration, Discussion Response to Teaching: Verbalize Understanding, Return Demonstration, Reinforcem ent Needed Time/GCodes Time In: 1000 Time Out: 1100 Total Billed Treatment Time: 60 Total Billed Treatment 1,GT20m,FA25m,EX15m G Codes Necessary: REGIS Mancera MAINSPRING FABRICATION SUPERVISOR Jun 23, 2019 12:43
--- NOTE | 2019-06-23 13:25 | Occupational Ther Daily Note ---
OT Current Status-Daily Note Subjective Pt alert, sitting in w/c. Pt c/o pain sitting in w/c and needing bladder scan though is able to wait to get out of w/c after afternoon therapies are finished. Pt agrees to therapy. Mental Status/Objective Patient Orientation: Person, Place, Time, Situation Therapy Code Descriptions/Definitions Functional [place] Measure: 0=Not Assessed/NA 4=Minimal Assistance 1=Total Assistance 5=Supervision or Setup 2=Maximal Assistance 6=Modified [place] 3=Moderate Assistance 7=Complete [place] ADL-Treatment Therapy Code Descriptions/Definitions Functional [place] Measure: 0=Not Assessed/NA 4=Minimal Assistance 1=Total Assistance 5=Supervision or Setup 2=Maximal Assistance 6=Modified [place] 3=Moderate Assistance 7=Complete [place] Therapy Quality Codes: 6 Independent with activity with or without an assistive device 5 Patient requires set up or clean up by helper. Patient completes activity by themselves 4 Supervision or touching assist (CGA). [place] provide cues , steadying assist 3 The helper provides less than half the effort to complete the activity 2 The helper provides more than half the effort to complete the activity 1 Dependent. The helper does all the effort to complete an activity 7 Patient refused to complete or attempt activity 9 The patient did not perform the activity before the current illness or injury 88 Not attempted due to Medical conditions or safety concerns Other Treatment Pt completed functional UE tasks and exercises to increase strength and activity tolerance for daily functional tasks. Pt demonstrated functional AROM of B UE with functional tasks. Arm bike completed for 8 min at minimal resistance with 2 recovery breaks. After therapy, pt sitting in w/c with call light/phone in reach. Nrsg in room. All needs met. OT Short Term Goals Short Term Goals Time Frame: Jun 25, 2019 Grooming(FIM): 5 Bathing(FIM): 3 Lower Body Dressing(FIM): 3 Toileting(FIM): 3 Transfers (B,C,W/C) (FIM): 3 Toilet/Commode Transfer(FIM): 3 Additional Short Term Goals: 1-Demonstrate ADL Tasks, 2-Verbalize Understanding, 3-ImproveStrength/Leo 1=Demonstrate adherence to instructed precautions during ADL tasks. 2=Patient will verbalize/demonstrate understanding of assistive devices/modif ications for ADL. 3=Patient will improve strength/tolerance for activity to enable patient to perform ADL's. OT Residential Goals Residential Goals Time Frame: Jul 09, 2019 Eating (FIM): 6 Eating (QC): 6 Groomin Oral Hygiene (QC): 6 Bathing(FIM): 5 Shower/Bathe Self (QC): 5 Upper Body Dressing(FIM): 6 Upper Body Dressing (QC): 6 Lower Body Dressing(FIM): 6 Lower Body Dressing (QC): 5 On/Off Footwear (QC): 5 Toileting(FIM): 6 Toileting Hygiene (QC): 6 Toilet/Commode Transfer(FIM): 6 Toilet/Commode Transfer (QC): 6 Shower Transfer(FIM): 5 Comprehension(FIM): 7 Expression (FIM): 7 Social Interaction(FIM): 7 Problem Solving(FIM): 7 Memory(FIM): 7 Additional Goals: 1-Demonstrate ADL Tasks, 2-Verbalize Understanding, 3- ImproveStrength/Leo 1=Demonstrate adherence to instructed precautions during ADL tasks. 2=Patient will verbalize/demonstrate understanding of assistive de vices/modifications for ADL. 3=Patient will improve strength/tolerance for activity to enable patient to perform ADL's. OT Education/Plan Discharge Recommendations Plan/Recommendations: Continue POC Treatment Plan/Plan of Care Patient would benefit from OT for education, treatment and training to promote independence in ADL's, mobility, safety and/or upper extremity function for ADL's. Plan of Care: ADL Retraining, Functional Mobility, Group Exercise/Act as Ind, UE Funct Exercise/Act Treatment Duration: Jul 09, 2019 Frequency: At least 5 of 7 days/Wk (IRF) Estimated Hrs Per Day: 1.5 hours per day Agreement: Yes Rehab Potential: Fair Time/GCodes Start Time: 12:45 Stop Time: 13:15 Total Time Billed (hr/min): 30 Billed Treatment Time 1 visit-FA 1 (15 min) EX 1 (15 min) AMANDA WEINER Jun 23, 2019 13:25
--- NOTE | 2019-06-23 13:58 | Physical Therapy Daily Note ---
PT Daily Note-Current Subjective Pt. up in chair and agrees to Rx but states he is so miserable because he needs to urinate and feels he cant. Nursing suggests standing to attempt urination , pt. agrees. Mental Status Patient Orientation: Normal For Age Attachments: Oxygen, Other-See Comments ([place],) Transfers Therapy Code Descriptions/Definitions Functional [place] Measure: 0=Not Assessed/NA 4=Minimal Assistance 1=Total Assistance 5=Supervision or Setup 2=Maximal Assistance 6=Modified [place] 3=Moderate Assistance 7=Complete [place] Therapy Quality Codes: 6 Independent with activity with or without an assistive device 5 Patient requires set up or clean up by helper. Patient completes activity by themselves 4 Supervision or touching assist (CGA). [place] provide cues , steadying assist 3 The helper provides less than half the effort to complete the activity 2 The helper provides more than half the effort to complete the activity 1 Dependent. The helper does all the effort to complete an activity 7 Patient refused to complete or attempt activity 9 The patient did not perform the activity before the current illness or injury 88 Not attempted due to Medical conditions or safety concerns sit to stand from w/c x 4 required mod to min assist. Gait Training Gait Assistive Device: FWW side stepping and SPT to bed all with CGA and instruction Exercises Seated Therapy Exercises: Ankle pumps, Long arc quads Seated Reps: 10 Treatments static stance to attempt to urinate in urinal with no results, pt then TRFd with a few steps and FWW to bed, during sit to sup pt. began to be incont so sat at EOB to try urination from there with very little result. Pt instructed in sit to sup log roll x 2 trials with mod assist to bed. Nursing present for bladder scan and possible straight cath etc Assessment Current Status: Good Progress more mobile on feet , sit to stand still difficult but improving PT Short Term Goals Short Term Goals Time Frame: Jun 25, 2019 Transfers (B,C,W/C) (FIM): 3 Gait (FIM): 1 Gait Distance Comment: 5' Gait Level of Assist: 3 Gait Assistive Device: FWW Wheelchair Distance: 150 PT High Lift Driver Goals Senior Living Goals PT High Lift Driver Goals Time Frame: Jul 09, 2019 Transfers (B,C,W/C) (FIM): 4 Sit to Lying (QC): 4 Lying-Sitting on Side/Bed(QC): 4 Sit to Stand (QC): 3 Rollin Roll Left to Right (QC): 4 Chair/Seh-ih-Sqbxu Xfer(QC): 3 Car Transfer (QC): 3 Gait (FIM): 1 Distance: 20' Walk 10 feet (QC): 3 Walk 10ft-Uneven Surface(QC): 3 Gait Level of Assist: 4 Gait Assistive Device: FWW Wheelchair (FIM): 6 Distance: 150' Wheelchair Level of Assist: 5 Wheel 50 feet with 2 turns (QC: 4 PT Plan Treatment/Plan Treatment Plan: Continue Plan of Care Treatment Plan: Bed Mobility, Concurrent Therapy, Education, Functional Activity Leo, Functional Strength, Group Therapy, Gait, Safety, Therapeutic Exercise, Transfers Treatment Duration: Jul 09, 2019 Frequency: At least 5 of 7 days/Wk (IRF) Estimated Hrs Per Day: 1.5 hours per day Patient and/or Family Agrees t: Yes Safety Risks/Education Patient Education: Gait Training, Transfer Techniques, Correct Positioning, Disease Process, Safety Issues Teaching Recipient: Patient Teaching Methods: Demonstration, Discussion Response to Teaching: Verbalize Understanding, Return Demonstration, Reinforcement Needed Time/GCodes Time In: 1330 Time Out: 1400 Total Billed Treatment Time: 30 Total Billed Treatment 1,FA30m G Codes Necessary: REGIS Mancera CASEWORK SUPERVISOR Jun 23, 2019 13:58
[2019-06-23] MEDS: HYDROcodone/APAP 5 MG/325 MG (LORTAB) TAB PO PRN ×2 (14:15→20:53)
--- NOTE | 2019-06-23 14:55 | NUR ---
USER SUPPORT ANALYST SUPERVISOR met with patient and patient's daughter, Sharron was visiting from [place] to review team conference summary. As patient is continuing to require mod assist for transfers, min assist with ambulating short distances, max assist for lower body ADLs, min to mod assist for sit to stand, assistance needed with wheelchair mobility and min assist for bathing, team has recommended patient be reevaluated at next team conference on 731. Patient and daughter are agreeable to this. USER SUPPORT ANALYST SUPERVISOR will continue to follow.
[2019-06-23] MEDS: VANCOMYCIN INJECTION 2,250 MG in NS IV 500 ML 500 ML IV SCH (15:23)
[2019-06-23] MEDS: ROFLUMILAST 500 MCG TAB (DALIRESP) PO SCH (15:24)
[2019-06-23 15:30] VITALS: BP 134/67
[2019-06-23] MEDS: ENOXAPARIN 40 MG/0.4 ML (LOVENOX) SYR SC SCH (17:44)
--- NOTE | 2019-06-23 19:10 | NUR ---
bedside report received from YOVANI LOUIE, assume care of pt
[2019-06-23] MEDS: ACETAMINOPHEN 325 MG TABLET PO PRN (19:54)
--- NOTE | 2019-06-23 19:54 | NUR ---
c/o foot pain level 5/10 on numeric scale, Tylenol 650mg po given
[2019-06-23 20:00] VITALS: BP 155/67
[2019-06-23 20:40] VITALS: BP 149/55
[2019-06-23] MEDS: GABAPENTIN 600 MG (NEURONTIN) TAB PO SCH (20:49)
[2019-06-23] MEDS: QUEtiapine 25 MG (SEROquel) TAB IMMEDIATE RELEASE PO SCH (20:50)
--- NOTE | 2019-06-23 20:53 | NUR ---
c/o pain to back & foot level 4/10 on numeric scale, Lortab 5 1 tab po given
--- NOTE | 2019-06-23 21:00 | NUR ---
assessments & interventions completed, see assessments & interventions, fsbs 178 no ss insulin req
--- NOTE | 2019-06-23 21:30 | NUR ---
rates pain at 2/10 on numeric scale
--- NOTE | 2019-06-23 23:00 | NUR ---
tried x2 to void without any success
--- NOTE | 2019-06-23 23:10 | NUR ---
bladder scan shows 415ml
--- NOTE | 2019-06-23 23:20 | NUR ---
straight cath & received 900ml light carolee colored urine
[2019-06-24] VITALS (7 sets, daily range): BP systolic 128–170; BP diastolic 56–75
[2019-06-24] MEDS: MEROPENEM 500 MG/SWFI 10 ML IV PUSH IV SCH ×8 (01:44→20:25)
[2019-06-24] MEDS: ACETAMINOPHEN 325 MG TABLET PO PRN ×2 (01:44→20:26)
--- NOTE | 2019-06-24 01:44 | NUR ---
c/o back & foot pain level 4/10 on numeric scale, Tylenol 650mg given
--- NOTE | 2019-06-24 02:25 | NUR ---
resting quietly in bed, pain level 0/10 on flacc scale
[2019-06-24] MEDS: RT-ALBUTEROL/IPRATROPIUM 3 ML (DUONEB) VIAL INH SCH ×4 (02:32→21:51)
[2019-06-24] MEDS: HYDROcodone/APAP 5 MG/325 MG (LORTAB) TAB PO PRN ×3 (03:00→15:35)
--- NOTE | 2019-06-24 03:00 | NUR ---
c/o back & foot pain level 4/10 on numeric scale, Lortab 5 1 tab po given
--- NOTE | 2019-06-24 03:40 | NUR ---
resting quietly in bed, pain level 0/10 on flacc scale
[2019-06-24] MEDS ORDERED: LIDOCAINE UROJET 2% GEL 10 ML PKG ONE (05:22)
--- NOTE | 2019-06-24 05:45 | NUR ---
bladder scan showed 566 straight cath & received 800ml straw colored urine
[2019-06-24] MEDS ORDERED: ALTEPLASE 2 MG (CATHFLO) IV NR (06:00)
[2019-06-24] MEDS: inSUlin ASPART (NovoLOG) 1 UNIT/0.01 ML (CHARGE PER UNIT) SC SCH ×4 (06:00→20:37)
[2019-06-24] MEDS: CATHETER FLUSH 10 ML SYR IV SCH ×3 (06:08→22:00)
[2019-06-24] MEDS: BETHANECHOL 25 MG (URECHOLINE) TAB PO SCH ×4 (06:23→20:36)
[2019-06-24] MEDS: MULTIVIT W/MINERALS TAB (THERAGRAN M) PO SCH (06:23)
[2019-06-24] MEDS: PANTOPRAZOLE 40 MG (PROTONIX) TAB PO SCH (06:23)
[2019-06-24] MEDS: LACTOBACILLUS ACIDOPHILUS (PROBIOTIC) CAPSULE PO SCH ×4 (06:23→20:25)
[2019-06-24] MEDS: SILDENAFIL 20 MG (REVATIO) TAB NON-FORMULARY PO SCH ×3 (06:24→22:30)
[2019-06-24] MEDS: amLODIPine 10 MG (NORVASC) TAB PO SCH (06:27)
--- NOTE | 2019-06-24 07:15 | NUR ---
bedside report given to EARNEST LOUIE
[2019-06-24] MEDS: CHOLESTYRAMINE 4 GM (QUESTRAN LITE, PREVALITE) PKT PO SCH ×5 (07:23→22:48)
--- NOTE | 2019-06-24 08:48 | PM&R Progress Note ---
Subjective HPI/CC On Admission Date Seen by Provider: Jun 24, 2019 Time Seen by Provider: 08:45 CC: Critical illness debility HPI: This is a 68-year-old white male clinic patient of Dr. 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 Received report from Dr. Montesinos at [facility] in [place]. Patient was admitted there after difficulty weaning off the ventilator after he was intubated after failed noninvasive ventilator support after he was transferred from [facility] after his spinal surgery to [facility]. He remained on the ventilator for 3 weeks has some vocal cord dysfunction due to the long intubation status and most recently having urinary retention after Alves catheter was discontinued and currently has Klebsiella UTI maintained on Bactrim and Cipro double coverage because of such a significant organism. He had some significant hallucinations last week but that has been resolved. Patient currently remains on 2 L by nasal cannula of oxygen receives nebulizer treatments of DuoNeb every 6 hours and uses his home CPAP machine. His prior level of functioning was independent of ADLs and ambulation. I reviewed all of his current medications and pharmacy technician assistant here at the hospital has confirmed accuracy and all those have been continued. He does have a PICC line in his right upper arm. Upon review of the history and physical the following information was obtained: Past medical history: diabetes mellitus on oral therapy, obstructive sleep apnea, COPD with chronic respiratory failure, polycythemia due to chronic respiratory failure, tobacco use, chronic low back pain, peripheral neuropathy, PVD, CAD previous bypass surgery, thrombocytopenia, morbid obesity with hypoventilation syndrome, congestive heart failure with acute on chronic diastolic type with volume overload at admission to [facility], hyperlipidemia, hypertension, carpal tunnel syndrome, severe DJD of the right knee. He also has a history of SVT. Subjective/Events-last exam Wants to decrease interruptions at night from 2-6 in the morning. May need to treat the volume overload he overall feels very swollen. Picc line dysfunction will be addressed today. BM was 06/22. Questran BID helps but will prevent constipation. Weaning O2. Straight cath produced 900 last night and then again 900 at 6 o'clock in the morning. Appreciate Dr. Nayak consult. Lortab is given for the pain. Conferred with RN Reviewed therapy notes Check meds and labs Review of Systems General: Fatigue Pulmonary: Dyspnea Musculoskeletal: back pain Objective Exam Vital Signs Vital Signs Date Time Temp Pulse Resp B/P (MAP) Pulse Ox O2 Delivery O2 Flow Rate FiO2 06/24/19 19:47 99.2 80 20 134/56 (82) 95 Nasal Cannula 2.00 Capillary Refill : General Appearance: No Apparent Distress, WD/WN, Chronically ill, Obese HEENT: PERRL/EOMI, Normal ENT Inspection, Pharynx Normal, Moist Mucous Membranes Neck: Full Range of Motion, Normal Inspection, Non Tender, Supple Respiratory: Chest Non Tender, Lungs Clear, Normal Breath Sounds, No Accessory Muscle Use, No Respiratory Distress, Crackles (LLL subtle) Cardiovascular: Regular Rate, Rhythm, No Edema, No Gallop, No JVD, No Murmur Gastrointestinal: Normal Bowel Sounds, No Organomegaly, No Pulsatile Mass, Non Tender, Soft Back: Normal Inspection, No CVA Tenderness, Decreased Range of Motion Extremity: Normal Capillary Refill, Normal Inspection, Normal Range of Motion, Non Tender, No Calf Tenderness, No Pedal Edema Neurologic/Psychiatric: Alert, Oriented x3, No Motor/Sensory Deficits, laboratory scientist II- XII Norm as Tested, Depressed Affect Skin: Normal Color, Warm/Dry Lymphatic: No Adenopathy Results/Procedures Lab Patient resulted labs reviewed. FIM Transfers Therapy Code Descriptions/Definitions Functional [place] Measure: 0=Not Assessed/NA 4=Minimal Assistance 1=Total Assistance 5=Supervision or Setup 2=Maximal Assistance 6=Modified [place] 3=Moderate Assistance 7=Complete [place] Therapy Quality Codes: 6 Independent with activity with or without an assistive device 5 Patient requires set up or clean up by helper. Patient completes activity by themselves 4 Supervision or touching assist (CGA). [place] provide cues , steadying assist 3 The helper provides less than half the effort to complete the activity 2 The helper provides more than half the effort to complete the activity 1 Dependent. The helper does all the effort to complete an activity 7 Patient refused to complete or attempt activity 9 The patient did not perform the activity before the current illness or injury 88 Not attempted due to Medical conditions or safety concerns Transfers (B, C, W/C) (FIM): 3 Scootin Rollin Roll Left to Right (QC): 4 Supine to/from Sit: 3 Sit to/from Stand: 3 Sit to Lying (QC): 3 Sit to Stand (QC): 2 Chair/Dsh-tl-Jsjgb Xfer(QC): 2 Bed to/from Chair: 4 (sliding transfer bed to w/c, no sliding board) Car Transfer (QC): 2 Gait Training Does the Patient Walk?: Yes Gait (FIM): 1 Distance (FIM): 1=up to 49 ft (15ft, 12ft) Gait Level of Assist: 4 Gait Persons Needed: 2 (assist for O2 and [place] as well as w/c to f/u) Gait Assistive Device: FWW Wheelchair Training Does the Pt Use a Wheelchair?: Yes Wheelchair (FIM): 2 Wheelchair Distance: 7=043-13 ft (100ft) Distance: 150 Wheelchair Level of Assist: 3 Type of Wheelchair: Manual Mental Status/Objective Comprehension: 7 Expression: 7 Social Interaction: 7 Problem Solvin Memory: 7 ADL-Treatment Feedin (Pt able to feed self without assist) Eating (QC): 6 Groomin Oral Hygiene (QC): 5 Bathin Bathing Location: L Arm, R Arm, Chest, Abdomen Shower/Bathe Self (QC): 3 Upper Extremity Dressin Upper Body Dressing (QC): 4 Lower Extremity Dressin Lower Body Dressing (QC): 2 On/Off Footwear (QC): 1 Toiletin (Pt. was incontinent of bowel while in bed. OT removed depend in bed, and placed bed betts per pt. request, as he had to go quickly. After toileting, OT cleansed brandyn area at bed level.) Toileting Hygiene (QC): 1 Toilet/Commode Transfer: 2 Toilet Transfer (QC): 2 Shower: 0 Assessment/Plan Assessment and Plan Assess & Plan/Chief Complaint Assessment: (1) Myopathy (2) COPD (chronic obstructive pulmonary disease) (3) Respiratory failure, acute and chronic (4) Polycythemia (5) Tobacco use (6) Back pain (7) Neuropathy (8) PVD (peripheral vascular disease) (9) Hx of CABG (10) Obesity hypoventilation syndrome (11) Hypertension (12) Renal insufficiency (13) Hyperlipemia (14) Arthritis of right knee (15) Hx of supraventricular tachycardia (16) Obesity (17) Diabetes mellitus (18) SIDNEY on CPAP (19) CO2 narcosis (20) CAD (coronary artery disease) (21) Status post lumbar spine surgery for decompression of spinal cord (22) UTI Klebsiella s/p Bactrim and Cipro then DC when added Jorge and Vanc due to wound (23) Anxiety (24) Wound dehiscence requiring bedside debridement and placement of wound vac by Dr Carrasco 06/19/19 (25) Diarrhea w/mild dehydration now resolving Plan: Maude Nayak, Anabelle, Rachel, Danilo are appreciated Abx changed to Jorge and Vanc for wound dehiscence and DC Cipro and Bactrim Check labs prn IRF protocol Pain control Monitor closely Questran with Imodium to continue and HL gentle IVF High risk for C diff IS use along with Nebs Continue progress of PT with ambulation (1) Myopathy (2) Postoperative wound dehiscence (3) Wound drainage (4) CO2 retention (5) Hyperkalemia (6) Renal failure (7) Elevated brain natriuretic peptide (BNP) level (8) Clot retention of urine (9) COPD (chronic obstructive pulmonary disease) (10) Polycythemia (11) Diabetes mellitus (12) Back pain (13) CAD (coronary artery disease) (14) Hyperlipemia (15) Neuropathy (16) Renal insufficiency (17) PVD (peripheral vascular disease) (18) Hypertension (19) Obesity (20) Respiratory failure, acute and chronic (21) Arthritis of right knee (22) Obesity hypoventilation syndrome (23) CO2 narcosis (24) SIDNEY on CPAP (25) Hx of supraventricular tachycardia (26) Decubitus ulcer (27) Urinary retention (28) BPH (benign prostatic hyperplasia) (29) UTI due to Klebsiella species (30) Hx of CABG (31) Status post lumbar spine surgery for decompression of spinal cord (32) Tobacco use JASPER LONG DO Jun 24, 2019 08:48
--- NOTE | 2019-06-24 09:12 | Physical Therapy Daily Note ---
PT Daily Note-Current Subjective Pt agreeable to PT session this am. States he is feeling a little hoarse. Pain Numeric Pain Scale: 4 Comment: Left foot Appearance Pt sitting EOB eating breakfast upon arrival. At end of session, pt sitting up in w/c with call light, phone and bedside table within reach. Mental Status Patient Orientation: Person, Place, Time, Eyes Open, Situation Attachments: Oxygen (2.5L/nc), Drains wound vac Transfers Therapy Code Descriptions/Definitions Functional [place] Measure: 0=Not Assessed/NA 4=Minimal Assistance 1=Total Assistance 5=Supervision or Setup 2=Maximal Assistance 6=Modified [place] 3=Moderate Assistance 7=Complete [place] Therapy Quality Codes: 6 Independent with activity with or without an assistive device 5 Patient requires set up or clean up by helper. Patient completes activity by themselves 4 Supervision or touching assist (CGA). Winn provide cues , steadying assist 3 The helper provides less than half the effort to complete the activity 2 The helper provides more than half the effort to complete the activity 1 Dependent. The helper does all the effort to complete an activity 7 Patient refused to complete or attempt activity 9 The patient did not perform the activity before the current illness or injury 88 Not attempted due to Medical conditions or safety concerns Transfers (B, C, W/C) (FIM): 3 Sit to/from Stand: 3 (CGA and therapist bracing walker from raised EOB. Mod A of 2 and therapist bracing walker to stand from w/c) Gait Training Does the Patient Walk?: Yes Gait (FIM): 1 Distance (FIM): 1=up to 49 ft Distance: 34, 16 Gait Level of Assist: 4 (CGA) Gait Persons Needed: 2 (following with w/c, O2 tank, wound vac) Gait Assistive Device: FWW (bariatric) antalgic shuffling, decreased step height and length, heavily relying on walker Exercises Seated Therapy Exercises: Ankle pumps, Long arc quads, Chair press-ups, Hip flexion Seated Reps: 20 ((+) trunk flex and ext without UE support) Standing Reps: 5 (wt shifting with some marching with ability to clear floor, SLS each LE x3 reps with up to 5-7 sec holds with use of walker for support x5 min total) Treatments transfer, safety, gait, strength, balance, functional mobility, activity tolerance, education Assessment Current Status: Good Progress PT Short Term Goals Short Term Goals Time Frame: Jun 25, 2019 Transfers (B,C,W/C) (FIM): 3 Gait (FIM): 1 Gait Distance Comment: 5' Gait Level of Assist: 3 Gait Assistive Device: FWW Wheelchair Distance: 150 PT Er Rn Goals Er Rn Goals PT Assisted Goals Time Frame: Jul 09, 2019 Transfers (B,C,W/C) (FIM): 4 Sit to Lying (QC): 4 Lying-Sitting on Side/Bed(QC): 4 Sit to Stand (QC): 3 Rollin Roll Left to Right (QC): 4 Chair/[id number]-jp-[id number] Xfer(QC): 3 Car Transfer (QC): 3 Gait (FIM): 1 Distance: 20' Walk 10 feet (QC): 3 Walk 10ft-Uneven Surface(QC): 3 Gait Level of Assist: 4 Gait Assistive Device: FWW Wheelchair (FIM): 6 Distance: 150' Wheelchair Level of Assist: 5 Wheel 50 feet with 2 turns (QC: 4 PT Plan Treatment/Plan Treatment Plan: Continue Plan of Care Treatment Plan: Bed Mobility, Concurrent Therapy, Education, Functional Activity Leo, Functional Strength, Group Therapy, Gait, Safety, Therapeutic Exercise, Transfers Treatment Duration: Jul 09, 2019 Frequency: At least 5 of 7 days/Wk (IRF) Estimated Hrs Per Day: 1.5 hours per day Patient and/or Family Agrees t: Yes Safety Risks/Education Patient Education: Gait Training, Transfer Techniques, Correct Positioning, Safety Issues Teaching Recipient: Patient Teaching Methods: Demonstration, Discussion Response to Teaching: Verbalize Understanding, Return Demonstration Time/GCodes Time In: 900 Time Out: 1000 Total Billed Treatment Time: 60 Total Billed Treatment 1 visit, FA x2 units, GT x1 unit, EX x1 unit ARISTIDES LONDONO DESIGN MAINTENANCE ENGINEER Jun 24, 2019 09:12
[2019-06-24] MEDS: TAMSULOSIN 0.4 MG (FLOMAX) CAP PO SCH (09:19)
[2019-06-24] MEDS: GABAPENTIN 300 MG (NEURONTIN) CAP PO SCH (09:19)
[2019-06-24] MEDS: THEOPHYLLINE ER 400 MG TAB (THEO-24) PO SCH (09:20)
[2019-06-24] MEDS: meTOprolol TARTRATE 25 MG (LOPRESSOR) TABLET PO SCH ×2 (09:21→20:27)
[2019-06-24] MEDS: DICLOFENAC 1% GEL 100 GM (VOLTAREN) TUBE TOP SCH ×4 (09:38→20:28)
--- NOTE | 2019-06-24 10:55 | NUR ---
Allevyn patch placed to bottom, as pt reports that it is becoming sore. No redness noted. Pt states that he thinks the soreness is from having diarrhea the past few days, but, is slowing down since taking the Questran.
--- NOTE | 2019-06-24 12:25 | Occupational Ther Daily Note ---
OT Current Status-Daily Note Subjective Pt sitting in w/c, agrees to therapy. Pt reports 3/10 pain in left foot. Mental Status/Objective Therapy Code Descriptions/Definitions Functional [place] Measure: 0=Not Assessed/NA 4=Minimal Assistance 1=Total Assistance 5=Supervision or Setup 2=Maximal Assistance 6=Modified [place] 3=Moderate Assistance 7=Complete [place] Attachments: Oxygen, Other-See Comments (wound vac) ADL-Treatment Sponge bath completed while seated in w/c. Doff shirt without assist. Doffed socks with SBA using dressing stick. Upper body bathing completed with SBA. Pt washed bilateral upper legs and brandyn area, used long handled sponge to wash lower legs and feet. Assist required to wash buttocks. Don pullover shirt with set up. Pt able to thread bilateral LE into Depends and shorts using sharemilker. Max assist required to stand and complete pant hike. Pt fatigues with standing and requires seated rest break. Pt brushed teeth and combed hair with set up while seated in chair. Pt sitting in w/c with needs met after session. Therapy Code Descriptions/Definitions Functional [place] Measure: 0=Not Assessed/NA 4=Minimal Assistance 1=Total Assistance 5=Supervision or Setup 2=Maximal Assistance 6=Modified [place] 3=Moderate Assistance 7=Complete [place] Therapy Quality Codes: 6 Independent with activity with or without an assistive device 5 Patient requires set up or clean up by helper. Patient completes activity by themselves 4 Supervision or touching assist (CGA). [place] provide cues , steadying assist 3 The helper provides less than half the effort to complete the activity 2 The helper provides more than half the effort to complete the activity 1 Dependent. The helper does all the effort to complete an activity 7 Patient refused to complete or attempt activity 9 The patient did not perform the activity before the current illness or injury 88 Not attempted due to Medical conditions or safety concerns Grooming (FIM): 5 Oral Hygiene (QC): 5 Bathing (FIM): 4 Shower/Bathe Self (QC): 3 Upper Body (FIM): 5 Upper Body Dressing (QC): 4 Lower Body Dressing (FIM): 2 Lower Body Dressing (QC): 2 OT Short Term Goals Short Term Goals Time Frame: Jun 25, 2019 Grooming(FIM): 5 Bathing(FIM): 3 Lower Body Dressing(FIM): 3 Toileting(FIM): 3 Transfers (B,C,W/C) (FIM): 3 Toilet/Commode Transfer(FIM): 3 Additional Short Term Goals: 1-Demonstrate ADL Tasks, 2-Verbalize Understanding, 3-ImproveStrength/Leo 1=Demonstrate adherence to instructed precautions during ADL tasks. 2=Patient will verbalize/demonstrate understanding of assistive devices/modifications for ADL. 3=Patient will improve strength/tolerance for activity to enable patient to perform ADL's. OT Cracker Sprayer Goals Detention Goals Time Frame: Jul 09, 2019 Eating (FIM): 6 Eating (QC): 6 Groomin Oral Hygiene (QC): 6 Bathing(FIM): 5 Shower/Bathe Self (QC): 5 Upper Body Dressing(FIM): 6 Upper Body Dressing (QC): 6 Lower Body Dressing(FIM): 6 Lower Body Dressing (QC): 5 On/Off Footwear (QC): 5 Toileting(FIM): 6 Toileting Hygiene (QC): 6 Toilet/Commode Transfer(FIM): 6 Toilet/Commode Transfer (QC): 6 Shower Transfer(FIM): 5 Comprehension(FIM): 7 Expression (FIM): 7 Social Interaction(FIM): 7 Problem Solving(FIM): 7 Memory(FIM): 7 Additional Goals: 1-Demonstrate ADL Tasks, 2-Verbalize Understanding, 3- ImproveStrength/Leo 1=Demonstrate adherence to instructed precautions during ADL tasks. 2=Patient will verbalize/demonstrate understanding of assistive devices/modifications for ADL. 3=Patient will improve strength/tolerance for activity to enable patient to perform ADL's. OT Education/Plan Discharge Recommendations Plan/Recommendations: Continue POC Treatment Plan/Plan of Care Patient would benefit from OT for education, treatment and training to promote independence in ADL's, mobility, safety and/or upper extremity function for ADL's. Plan of Care: ADL Retraining, Functional Mobility, Group Exercise/Act as Ind, UE Funct Exercise/Act Treatment Duration: Jul 09, 2019 Frequency: At least 5 of 7 days/Wk (IRF) Estimated Hrs Per Day: 1.5 hours per day Agreement: Yes Rehab Potential: Fair Time/GCodes Start Time: 10:00 Stop Time: 11:00 Total Time Billed (hr/min): 60 Billed Treatment Time 1 visit, ADLx4(60minutes) FRED NEIL OT Jun 24, 2019 12:25
--- NOTE | 2019-06-24 12:27 | Progress Note - Urology ---
Progress Note-Urology Progress Notes/Assess & Plan Progress/Assessment & Plan STARTED SOME VOIDING BUT STILL LARGE RESIDUAL. TOLERATES MEDICINES WELL. KEEP SAME PLAN Final Diagnosis URINE RETENTION NOÉ BURNS MD Jun 24, 2019 12:27
--- NOTE | 2019-06-24 13:08 | NUR ---
PICC RN in room to assess PICC.
--- NOTE | 2019-06-24 13:10 | Pulmonary Progress Note ---
Subjective Time Seen by a Provider: 13:09 Subjective/Events-last exam No complications noted. Sepsis Event Evaluation Height, Weight, BMI Height: 5'10.00" Weight: 265lbs. 0.0oz. 120.544300mn; 38.0 BMI Method:Stated Exam Exam Vital Signs Date Time Temp Pulse Resp B/P (MAP) Pulse Ox O2 Delivery O2 Flow Rate FiO2 06/24/19 12:02 72 20 170/75 (106) 95 Nasal Cannula 2.00 06/24/19 08:00 96.9 74 18 128/56 (80) 94 Nasal Cannula 2.00 06/24/19 06:15 97.6 72 22 137/63 (87) 93 Nasal Cannula 2.00 06/24/19 04:00 97.6 72 22 137/63 (87) 93 Nasal Cannula 2.00 06/24/19 02:29 93 Nasal Cannula 2.00 06/24/19 00:30 98.1 72 22 137/63 (87) 96 Nasal Cannula 2.00 06/23/19 21:26 97 Nasal Cannula 2.00 06/23/19 21:00 97 Nasal Cannula 2.00 06/23/19 20:40 76 20 149/55 (86) 97 Nasal Cannula 2.00 06/23/19 20:00 98.5 82 20 155/67 (96) 97 Nasal Cannula 2.00 06/23/19 15:30 98.8 81 20 134/67 (89) 97 Nasal Cannula 2.00 I & O 06/24/19 07:00 Intake Total 1670 ml Output Total 2950 ml Balance -1280 ml Height & Weight Height: 5'10.00" Weight: 265lbs. 0.0oz. 120.877411so; 38.0 BMI Method:Stated General Appearance: No Apparent Distress, WD/WN, Chronically ill, Obese HEENT: PERRL/EOMI, Normal ENT Inspection, Pharynx Normal, Moist Mucous Membranes Neck: Full Range of Motion, Normal Inspection, Non Tender, Supple Respiratory: Chest Non Tender, Lungs Clear, Normal Breath Sounds, No Accessory Muscle Use, No Respiratory Distress, Crackles (LLL subtle) Cardiovascular: Regular Rate, Rhythm, No Edema, No Gallop, No JVD, No Murmur Peripheral Pulses: 2+ Dorsalis Pedis (R), 2+ Left Dors-Pedis (L) Gastrointestinal: non tender Extremity: Normal Capillary Refill, Normal Inspection, Normal Range of Motion, Non Tender, No Calf Tenderness, No Pedal Edema Neurologic/Psychiatric: Alert, Oriented x3, No Motor/Sensory Deficits, clutch specialist II- XII Norm as Tested, Depressed Affect Skin: Normal Color, Warm/Dry Lymphatic: No Adenopathy Results Lab Laboratory Tests 06/23/19 05:50 Assessment/Plan Assessment/Plan Hypoxia probably secondary to COPD -Monitor Dehiscence of lumbar surgical wound -Wound care following -Wound vac -surgery following Morbid obesity with OHS -Home CPAP machine Anemia -Monitor DM Tobacco use Debility ANIYA DUDLEY DO Jun 24, 2019 13:10
[2019-06-24] MEDS ORDERED: WATER (STERILE) FOR INJECTION 10 ML ONE (13:18)
--- NOTE | 2019-06-24 13:37 | NUR ---
Spoke w PICC line RN, re: 1330 scheduled Mersharlene. She states that she is going to administer the cathflo, & that it has to sit for 30 min before using, then can use.
--- NOTE | 2019-06-24 15:02 | Physical Therapy Progress Note ---
Therapy Progress Note Pt is having medical procedure completed during Group tx this afternoon. Pt will not be seen in PM but PT will return to check on pt tomorrow to resume tx. LUNA ROY CHARGE AUDITOR Jun 24, 2019 15:02
--- NOTE | 2019-06-24 15:26 | Occ Therapy Progress Note ---
Therapy Progress Note Due to pt having medical procedure in afternoon, pt unable to attend group therapy. AMANDA WEINER Jun 24, 2019 15:26
[2019-06-24] MEDS ORDERED: BENZONATATE 100 MG (TESSALON) CAPSULE PO NR (15:30)
[2019-06-24] MEDS: ROFLUMILAST 500 MCG TAB (DALIRESP) PO SCH (15:34)
--- NOTE | 2019-06-24 15:43 | NUR ---
Pt c/o Lt foot pain. Obtained Allevyn patch to place on area, pt refused, stated that he wanted the Voltaren cream on the area. This was done. Will cont to monitor area, & apply Allevyn patch if pt consents & not relieved by Voltaren gel.
--- NOTE | 2019-06-24 16:00 | NUR ---
Applied Allevyn patch to Lt heel area.
[2019-06-24] MEDS: ENOXAPARIN 40 MG/0.4 ML (LOVENOX) SYR SC SCH (16:54)
--- NOTE | 2019-06-24 17:53 | NUR ---
Pt refused Elizabethran, states doesn't think he needs it, as doesn't want to get constipated.
[2019-06-24] MEDS: QUEtiapine 25 MG (SEROquel) TAB IMMEDIATE RELEASE PO SCH (20:25)
[2019-06-24] MEDS: BENZONATATE 100 MG (TESSALON) CAPSULE PO SCH (20:26)
[2019-06-24] MEDS: GABAPENTIN 600 MG (NEURONTIN) TAB PO SCH (20:36)
[2019-06-25] VITALS (8 sets, daily range): BP systolic 130–159; BP diastolic 55–69
[2019-06-25] MEDS: RT-ALBUTEROL/IPRATROPIUM 3 ML (DUONEB) VIAL INH SCH ×4 (02:50→21:09)
[2019-06-25] MEDS: MEROPENEM 500 MG/SWFI 10 ML IV PUSH IV SCH ×8 (03:05→20:29)
[2019-06-25] MEDS: LACTOBACILLUS ACIDOPHILUS (PROBIOTIC) CAPSULE PO SCH ×4 (06:48→20:29)
[2019-06-25] MEDS: SILDENAFIL 20 MG (REVATIO) TAB NON-FORMULARY PO SCH ×3 (06:48→22:35)
[2019-06-25] MEDS: MULTIVIT W/MINERALS TAB (THERAGRAN M) PO SCH (06:48)
[2019-06-25] MEDS: amLODIPine 10 MG (NORVASC) TAB PO SCH (06:49)
[2019-06-25] MEDS: CATHETER FLUSH 10 ML SYR IV SCH ×4 (06:49→22:35)
[2019-06-25] MEDS: BETHANECHOL 25 MG (URECHOLINE) TAB PO SCH ×4 (06:49→20:30)
[2019-06-25] MEDS: HYDROcodone/APAP 5 MG/325 MG (LORTAB) TAB PO PRN ×2 (06:49→15:18)
[2019-06-25] MEDS: PANTOPRAZOLE 40 MG (PROTONIX) TAB PO SCH (06:50)
[2019-06-25] MEDS: inSUlin ASPART (NovoLOG) 1 UNIT/0.01 ML (CHARGE PER UNIT) SC SCH ×4 (06:51→20:31)
[2019-06-25] MEDS: CHOLESTYRAMINE 4 GM (QUESTRAN LITE, PREVALITE) PKT PO SCH (07:55)
[2019-06-25] MEDS: meTOprolol TARTRATE 25 MG (LOPRESSOR) TABLET PO SCH ×2 (09:39→20:30)
[2019-06-25] MEDS: GABAPENTIN 300 MG (NEURONTIN) CAP PO SCH (09:39)
[2019-06-25] MEDS: THEOPHYLLINE ER 400 MG TAB (THEO-24) PO SCH (09:40)
[2019-06-25] MEDS: TAMSULOSIN 0.4 MG (FLOMAX) CAP PO SCH (09:40)
[2019-06-25] MEDS: BENZONATATE 100 MG (TESSALON) CAPSULE PO SCH ×3 (09:40→20:30)
--- NOTE | 2019-06-25 09:41 | Progress Note - Urology ---
Progress Note-Urology Progress Notes/Assess & Plan Progress/Assessment & Plan STILL NOT VOIDING WELL WITH LARGE RESIDUALS. KEEP SAME. Final Diagnosis RETENTION NOÉ BURNS MD Jun 25, 2019 09:41
[2019-06-25] MEDS: DICLOFENAC 1% GEL 100 GM (VOLTAREN) TUBE TOP SCH ×4 (09:42→20:31)
--- NOTE | 2019-06-25 10:19 | PM&R Progress Note ---
Subjective HPI/CC On Admission Date Seen by Provider: Jun 25, 2019 Time Seen by Provider: 08:45 CC: Critical illness debility HPI: This is a 68-year-old white male clinic patient of Dr. 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 Received report from Dr. Montesinos at [facility] in [place]. Patient was admitted there after difficulty weaning off the ventilator after he was intubated after failed noninvasive ventilator support after he was transferred from [facility] after his spinal surgery to [facility]. He remained on the ventilator for 3 weeks has some vocal cord dysfunction due to the long intubation status and most recently having urinary retention after Alves catheter was discontinued and currently has Klebsiella UTI maintained on Bactrim and Cipro double coverage because of such a significant organism. He had some significant hallucinations last week but that has been resolved. Patient currently remains on 2 L by nasal cannula of oxygen receives nebulizer treatments of DuoNeb every 6 hours and uses his home CPAP machine. His prior level of functioning was independent of ADLs and ambulation. I reviewed all of his current medications and endoscopy tech here at the hospital has confirmed accuracy and all those have been continued. He does have a PICC line in his right upper arm. Upon review of the history and physical the following information was obtained: Past medical history: diabetes mellitus on oral therapy, obstructive sleep apnea, COPD with chronic respiratory failure, polycythemia due to chronic respiratory failure, tobacco use, chronic low back pain, peripheral neuropathy, PVD, CAD previous bypass surgery, thrombocytopenia, morbid obesity with hypoventilation syndrome, congestive heart failure with acute on chronic diastolic type with volume overload at admission to [facility], hyperlipidemia, hypertension, carpal tunnel syndrome, severe DJD of the right knee. He also has a history of SVT. Subjective/Events-last exam PICC line dysfunction resolved today BM was 06/24 and feels like he is getting constipated with the Questran so will stop that. Weaning O2. Straight caths still required Appreciate Dr. Nayak consult. Lortab is given for the pain. Conferred with RN Reviewed therapy notes Check meds and labs I assessed the spinal wound when wound vac changed Review of Systems Pulmonary: Dyspnea Musculoskeletal: back pain Objective Exam Vital Signs Vital Signs Date Time Temp Pulse Resp B/P (MAP) Pulse Ox O2 Delivery O2 Flow Rate FiO2 06/25/19 12:27 98.8 73 18 139/69 (92) 97 Nasal Cannula 2.00 Capillary Refill : General Appearance: No Apparent Distress, WD/WN, Chronically ill, Obese HEENT: PERRL/EOMI, Normal ENT Inspection, Pharynx Normal, Moist Mucous Membranes Neck: Full Range of Motion, Normal Inspection, Non Tender, Supple Respiratory: Chest Non Tender, Lungs Clear, Normal Breath Sounds, No Accessory Muscle Use, No Respiratory Distress, Crackles (LLL subtle) Cardiovascular: Regular Rate, Rhythm, No Edema, No Gallop, No JVD, No Murmur Gastrointestinal: Normal Bowel Sounds, No Organomegaly, No Pulsatile Mass, Non Tender, Soft Back: Normal Inspection, No CVA Tenderness, Decreased Range of Motion Extremity: Normal Capillary Refill, Normal Inspection, Normal Range of Motion, Non Tender, No Calf Tenderness, No Pedal Edema Neurologic/Psychiatric: Alert, Oriented x3, No Motor/Sensory Deficits, education liaison II- XII Norm as Tested, Depressed Affect Skin: Normal Color, Warm/Dry Lymphatic: No Adenopathy Results/Procedures Lab Patient resulted labs reviewed. FIM Transfers Therapy Code Descriptions/Definitions Functional [place] Measure: 0=Not Assessed/NA 4=Minimal Assistance 1=Total Assistance 5=Supervision or Setup 2=Maximal Assistance 6=Modified [place] 3=Moderate Assistance 7=Complete [place] Therapy Quality Codes: 6 Independent with activity with or without an assistive device 5 Patient requires set up or clean up by helper. Patient completes activity by themselves 4 Supervision or touching assist (CGA). Swan provide cues , steadying assist 3 The helper provides less than half the effort to complete the activity 2 The helper provides more than half the effort to complete the activity 1 Dependent. The helper does all the effort to complete an activity 7 Patient refused to complete or attempt activity 9 The patient did not perform the activity before the current illness or injury 88 Not attempted due to Medical conditions or safety concerns Transfers (B, C, W/C) (FIM): 3 Scootin Rollin Roll Left to Right (QC): 4 Supine to/from Sit: 3 Sit to/from Stand: 3 (CGA and therapist bracing walker from raised EOB. Mod A of 2 and therapist bracing walker to stand from w/c) Sit to Lying (QC): 3 Sit to Stand (QC): 2 Chair/Oxy-xm-Nzkpf Xfer(QC): 2 Bed to/from Chair: 4 (sliding transfer bed to w/c, no sliding board) Car Transfer (QC): 2 Gait Training Does the Patient Walk?: Yes Gait (FIM): 1 Distance (FIM): 1=up to 49 ft Distance: 34, 16 Gait Level of Assist: 4 (CGA) Gait Persons Needed: 2 (following with w/c, O2 tank, wound vac) Gait Assistive Device: FWW (bariatric) Wheelchair Training Does the Pt Use a Wheelchair?: Yes Wheelchair (FIM): 2 Wheelchair Distance: 6=456-89 ft (100ft) Distance: 150 Wheelchair Level of Assist: 3 Type of Wheelchair: Manual Mental Status/Objective Comprehension: 7 Expression: 7 Social Interaction: 7 Problem Solvin Memory: 7 ADL-Treatment Feedin (Pt able to feed self without assist) Eating (QC): 6 Groomin Oral Hygiene (QC): 5 Bathin Bathing Location: L Arm, R Arm, Chest, Abdomen Shower/Bathe Self (QC): 3 Upper Extremity Dressin Upper Body Dressing (QC): 4 Lower Extremity Dressin Lower Body Dressing (QC): 2 On/Off Footwear (QC): 1 Toiletin (Pt. was incontinent of bowel while in bed. OT removed depend in bed, and placed bed betts per pt. request, as he had to go quickly. After toileting, OT cleansed brandyn area at bed level.) Toileting Hygiene (QC): 1 Toilet/Commode Transfer: 2 Toilet Transfer (QC): 2 Shower: 0 Assessment/Plan Assessment and Plan Assess & Plan/Chief Complaint Assessment: (1) Myopathy (2) COPD (chronic obstructive pulmonary disease) (3) Respiratory failure, acute and chronic (4) Polycythemia (5) Tobacco use (6) Back pain (7) Neuropathy (8) PVD (peripheral vascular disease) (9) Hx of CABG (10) Obesity hypoventilation syndrome (11) Hypertension (12) Renal insufficiency (13) Hyperlipemia (14) Arthritis of right knee (15) Hx of supraventricular tachycardia (16) Obesity (17) Diabetes mellitus (18) SIDNEY on CPAP (19) CO2 narcosis (20) CAD (coronary artery disease) (21) Status post lumbar spine surgery for decompression of spinal cord (22) UTI Klebsiella s/p Bactrim and Cipro then DC when added Jorge and Vanc due t o wound (23) Anxiety (24) Wound dehiscence requiring bedside debridement and placement of wound vac by Dr Carrasco 06/19/19 (25) Diarrhea w/mild dehydration now resolving Plan: Maude Nayak, Anabelle, Rachel, Danilo are appreciated Abx changed to Jorge and Vanc for wound dehiscence and DC Cipro and Bactrim and wound vac maintained Check labs prn IRF protocol Pain control Monitor closely Questran DC High risk for C diff IS use along with Nebs Continue progress of PT with ambulation (1) Myopathy (2) Postoperative wound dehiscence (3) Wound drainage (4) CO2 retention (5) Hyperkalemia (6) Renal failure (7) Elevated brain natriuretic peptide (BNP) level (8) Clot retention of urine (9) COPD (chronic obstructive pulmonary disease) (10) Polycythemia (11) Diabetes mellitus (12) Back pain (13) CAD (coronary artery disease) (14) Hyperlipemia (15) Neuropathy (16) Renal insufficiency (17) PVD (peripheral vascular disease) (18) Hypertension (19) Obesity (20) Respiratory failure, acute and chronic (21) Arthritis of right knee (22) Obesity hypoventilation syndrome (23) CO2 narcosis (24) SIDNEY on CPAP (25) Hx of supraventricular tachycardia (26) Decubitus ulcer (27) Urinary retention (28) BPH (benign prostatic hyperplasia) (29) UTI due to Klebsiella species (30) Hx of CABG (31) Status post lumbar spine surgery for decompression of spinal cord (32) Tobacco use JASPER LONG DO Jun 25, 2019 10:18
--- NOTE | 2019-06-25 10:27 | Pulmonary Progress Note ---
Subjective Time Seen by a Provider: 10:26 Subjective/Events-last exam PT has no complaints. Sepsis Event Evaluation Height, Weight, BMI Height: 5'10.00" Weight: 265lbs. 0.0oz. 120.926052jv; 38.0 BMI Method:Stated Exam Exam Vital Signs Date Time Temp Pulse Resp B/P (MAP) Pulse Ox O2 Delivery O2 Flow Rate FiO2 06/25/19 08:59 74 151/67 (95) 06/25/19 06:58 93 Nasal Cannula 2.00 06/25/19 06:10 97.8 70 18 130/58 (82) 95 Nasal Cannula 2.00 06/25/19 04:00 97.8 70 18 130/58 (82) 95 Nasal Cannula 2.00 06/25/19 02:50 93 Nasal Cannula 2.00 06/25/19 00:43 97.7 76 20 154/67 (96) 95 Nasal Cannula 2.00 06/24/19 21:51 93 Nasal Cannula 2.00 06/24/19 21:00 96 Nasal Cannula 2.00 06/24/19 19:47 99.2 80 20 134/56 (82) 95 Nasal Cannula 2.00 06/24/19 15:56 98.0 74 20 149/69 (95) 96 Nasal Cannula 2.00 06/24/19 14:41 96 Nasal Cannula 2.00 06/24/19 12:02 72 20 170/75 (106) 95 Nasal Cannula 2.00 I & O 06/25/19 07:00 Intake Total 1810 ml Output Total 1400 ml Balance 410 ml Height & Weight Height: 5'10.00" Weight: 265lbs. 0.0oz. 120.644358ya; 38.0 BMI Method:Stated General Appearance: No Apparent Distress, WD/WN HEENT: PERRL/EOMI, Pharynx Normal Neck: Full Range of Motion, Non Tender, Supple Respiratory: Chest Non Tender, No Accessory Muscle Use, No Respiratory Distress, Crackles, Decreased Breath Sounds Cardiovascular: Regular Rate, Rhythm, No Edema, No Gallop Capillary Refill: Less Than 3 Seconds Gastrointestinal: normal bowel sounds, non tender, soft, no organomegaly Extremity: Normal Capillary Refill, Normal Inspection, Normal Range of Motion, No Pedal Edema Neurologic/Psychiatric: Alert, Oriented x3 Skin: Normal Color, Warm/Dry Lymphatic: No Adenopathy Assessment/Plan Assessment/Plan Hypoxia probably secondary to COPD -Monitor Dehiscence of lumbar surgical wound -Wound care following -Wound vac -surgery following Morbid obesity with OHS -Home CPAP machine Anemia -Monitor DM Tobacco use Debility ANIYA DUDLEY DO Jun 25, 2019 10:27
--- NOTE | 2019-06-25 10:39 | Physical Therapy Daily Note ---
PT Daily Note-Current Subjective pt agreeable to PT session. States wound care here earlier and changed entire bandaging and not feeling very well now after all that. Pain Numeric Pain Scale: 3 Comment: Left foot Appearance Pt in bed finishing breakfast upon arrival. At end of session, pt sitting up in w/c, per pt request, call light, phone and bedside table within reach. Mental Status Patient Orientation: Person, Place, Time, Eyes Open, Situation Attachments: Saline Lock, Oxygen (2L o2/nc) wound vac Transfers Therapy Code Descriptions/Definitions Functional [place] Measure: 0=Not Assessed/NA 4=Minimal Assistance 1=Total Assistance 5=Supervision or Setup 2=Maximal Assistance 6=Modified [place] 3=Moderate Assistance 7=Complete [place] Therapy Quality Codes: 6 Independent with activity with or without an assistive device 5 Patient requires set up or clean up by helper. Patient completes activity by themselves 4 Supervision or touching assist (CGA). [place] provide cues , steadying assist 3 The helper provides less than half the effort to complete the activity 2 The helper provides more than half the effort to complete the activity 1 Dependent. The helper does all the effort to complete an activity 7 Patient refused to complete or attempt activity 9 The patient did not perform the activity before the current illness or injury 88 Not attempted due to Medical conditions or safety concerns Transfers (B, C, W/C) (FIM): 3 Scootin (min A further forward onto EOB, SBA to scoot buttock fwd in w/c) Rollin (min A) Supine to/from Sit: 3 (supine to sit mod A with Upper Body) Sit to/from Stand: 3 (sit to stand from EOB elevated and therapist stabilizing walker Min A, sit to stand from w/c Mod A of 2) sit to supervisor telephone information // bars mod to max A of 1 with therapist blocking feet/knees and assisting with transfer belt Gait Training Does the Patient Walk?: Yes Gait (FIM): 1 Distance (FIM): 1=up to 49 ft Distance: 20, 45 Gait Level of Assist: 4 (CGA with gait belt) Gait Persons Needed: 2 (follow with w/c, O2 tank, wound vac) Gait Assistive Device: FWW shuffling, slow, x1 LOB self corrected, decreased O2 level to 90% but quickly increasing to 96% with sitting rest Exercises Standing: Marching (x10), Mini squats (x10), Sit to Stand (x3) Standing Reps: 10 (in // bars) Treatments bed mobility, transfers, safety, gait, balance, strength, activity tolerance, functional mobility Assessment Current Status: Fair Progress fatigues easily, SPO2 drops with activity but increases with rest. PT Short Term Goals Short Term Goals Time Frame: Jun 25, 2019 Transfers (B,C,W/C) (FIM): 3 Gait (FIM): 1 Gait Distance Comment: 5' Gait Level of Assist: 3 Gait Assistive Device: FWW Wheelchair Distance: 150 PT Personal Banker Goals Personal Banker Goals PT Group Home Goals Time Frame: Jul 09, 2019 Transfers (B,C,W/C) (FIM): 4 Sit to Lying (QC): 4 Lying-Sitting on Side/Bed(QC): 4 Sit to Stand (QC): 3 Rollin Roll Left to Right (QC): 4 Chair/Kwe-jp-Hvnab Xfer(QC): 3 Car Transfer (QC): 3 Gait (FIM): 1 Distance: 20' Walk 10 feet (QC): 3 Walk 10ft-Uneven Surface(QC): 3 Gait Level of Assist: 4 Gait Assistive Device: FWW Wheelchair (FIM): 6 Distance: 150' Wheelchair Level of Assist: 5 Wheel 50 feet with 2 turns (QC: 4 PT Plan Treatment/Plan Treatment Plan: Continue Plan of Care Treatment Plan: Bed Mobility, Concurrent Therapy, Education, Functional Activity Leo, Functional Strength, Group Therapy, Gait, Safety, Therapeutic Ex ercise, Transfers Treatment Duration: Jul 09, 2019 Frequency: At least 5 of 7 days/Wk (IRF) Estimated Hrs Per Day: 1.5 hours per day Patient and/or Family Agrees t: Yes Safety Risks/Education Patient Education: Gait Training, Transfer Techniques, Safety Issues Teaching Recipient: Patient Teaching Methods: Demonstration, Discussion Response to Teaching: Verbalize Understanding, Return Demonstration Time/GCodes Time In: 1030 Time Out: 1130 Total Billed Treatment Time: 60 Total Billed Treatment 1 visit, GT x2 units, FA x2 units ARISTIDES LONDONO SALESPERSON [employer]SE[employer]PLIANCES Jun 25, 2019 10:39
--- NOTE | 2019-06-25 12:02 | Occupational Ther Daily Note ---
OT Current Status-Daily Note Subjective Pt in bed, agrees to therapy. Reports pain in left foot. Mental Status/Objective Therapy Code Descriptions/Definitions Functional [place] Measure: 0=Not Assessed/NA 4=Minimal Assistance 1=Total Assistance 5=Supervision or Setup 2=Maximal Assistance 6=Modified [place] 3=Moderate Assistance 7=Complete [place] ADL-Treatment Pt supine to sit with assist for trunk. Sit to stand with mod assist with bed raised. Transfer to w/c with min assist using FWW. To shower room via w/c. Stood with mod assist using grab bar and shower chair was placed behind him to sit on. PICC line covered. Back incision covered per nursing. Seated bathing completed using hand held shower. Upper body bathing completed with SBA. Pt able to wash bilateral upper legs and brandyn area. Assist for lower legs and buttocks. Increased time for shower. Don pullover shirt with set up. Don Depends and shorts with max assist. Transfer to w/c with mod assist using grab bar. Pt returned to room via w/c. Brushed teeth and combed hair with set up while seated in w/c. Pt fatigues with activity and requires rest breaks throughout session. Sit to stand from w/c with max assist secondary to fatigue. Transfer to EOB with mod assist. Sit to supine with assist for LE. Pt resting in bed with wound care present after session. Therapy Code Descriptions/Definitions Functional [place] Measure: 0=Not Assessed/NA 4=Minimal Assistance 1=Total Assistance 5=Supervision or Setup 2=Maximal Assistance 6=Modified [place] 3=Moderate Assistance 7=Complete [place] Therapy Quality Codes: 6 Independent with activity with or without an assistive device 5 Patient requires set up or clean up by helper. Patient completes activity by themselves 4 Supervision or touching assist (CGA). [place] provide cues , steadying assist 3 The helper provides less than half the effort to complete the activity 2 The helper provides more than half the effort to complete the activity 1 Dependent. The helper does all the effort to complete an activity 7 Patient refused to complete or attempt activity 9 The patient did not perform the activity before the current illness or injury 88 Not attempted due to Medical conditions or safety concerns Grooming (FIM): 5 Oral Hygiene (QC): 5 Bathing (FIM): 3 Shower/Bathe Self (QC): 3 Upper Body (FIM): 5 Upper Body Dressing (QC): 4 Lower Body Dressing (FIM): 2 Lower Body Dressing (QC): 2 OT Short Term Goals Short Term Goals Time Frame: Jun 25, 2019 Grooming(FIM): 5 Bathing(FIM): 3 Lower Body Dressing(FIM): 3 Toileting(FIM): 3 Transfers (B,C,W/C) (FIM): 3 Toilet/Commode Transfer(FIM): 3 Additional Short Term Goals: 1-Demonstrate ADL Tasks, 2-Verbalize Understanding, 3-ImproveStrength/Leo 1=Demonstrate adherence to instructed precautions during ADL tasks. 2=Patient will verbalize/demonstrate understanding of assistive devices/modifications for ADL. 3=Patient will improve strength/tolerance for activity to enable patient to perform ADL's. OT Penitentiary Goals Penitentiary Goals Time Frame: Jul 09, 2019 Eating (FIM): 6 Eating (QC): 6 Groomin Oral Hygiene (QC): 6 Bathing(FIM): 5 Shower/Bathe Self (QC): 5 Upper Body Dressing(FIM): 6 Upper Body Dressing (QC): 6 Lower Body Dressing(FIM): 6 Lower Body Dressing (QC): 5 On/Off Footwear (QC): 5 Toileting(FIM): 6 Toileting Hygiene (QC): 6 Toilet/Commode Transfer(FIM): 6 Toilet/Commode Transfer (QC): 6 Shower Transfer(FIM): 5 Comprehension(FIM): 7 Expression (FIM): 7 Social Interaction(FIM): 7 Problem Solving(FIM): 7 Memory(FIM): 7 Additional Goals: 1-Demonstrate ADL Tasks, 2-Verbalize Understanding, 3- ImproveStrength/Leo 1=Demonstrate adherence to instructed precautions during ADL tasks. 2=Patient will verbalize/demonstrate understanding of assistive devices/modifications for ADL. 3=Patient will improve strength/tolerance for activity to enable patient to perform ADL's. OT Education/Plan Discharge Recommendations Plan/Recommendations: Continue POC Treatment Plan/Plan of Care Patient would benefit from OT for education, treatment and training to promote independence in ADL's, mobility, safety and/or upper extremity function for ADL's. Plan of Care: ADL Retraining, Functional Mobility, Group Exercise/Act as Ind, UE Funct Exercise/Act Treatment Duration: Jul 09, 2019 Frequency: At least 5 of 7 days/Wk (IRF) Estimated Hrs Per Day: 1.5 hours per day Agreement: Yes Rehab Potential: Fair Time/GCodes Start Time: 08:00 Stop Time: 09:00 Total Time Billed (hr/min): 60 Billed Treatment Time 1 visit, ADLx4(60minutes) FRED NEIL OT Jun 25, 2019 12:02
[2019-06-25] MEDS: ROFLUMILAST 500 MCG TAB (DALIRESP) PO SCH (14:17)
[2019-06-25] MEDS: VANCOMYCIN INJECTION 2,250 MG in NS IV 500 ML 500 ML IV SCH (14:46)
--- NOTE | 2019-06-25 14:47 | Therapy Group Daily Note ---
Therapy Daily Group Note Patient Education Topic Other List Below (memory) Session Ratio (pt:therapist): 4:1 Goal of Session: Memory Strategies Goal Met for this Session: Yes Pt Benefit of Group: Contributions to Others, Improved Cognition, Recognition of Peers, Socialization Other/Notes Pt transported via w/c to [facility] for OT/PT group. Group consisted of introductions (name, place living, love water? Why?), socialization, educational topic of memory and memory activities. Pt introduced self correctly and actively listened to peers. Pt acknowledged educational topic and was able to verbalize personal strategies and memory exercises that can be completed to increase STM. Pt was able to participate in memory activity fully and demonstrated good memory techniques. After group, pt was transported via w/c to room to lay in bed. Call light/phone in reach. All needs met in room. Start Time: 13:00 Stop Time: 14:10 Total Billed Treatment Time: 70 Total Billed Treatment 1-GRP AMANDA WEINER Jun 25, 2019 14:47
--- NOTE | 2019-06-25 14:51 | NUR ---
Incontinent of urine. Post void bladder scan done, showing 181mls. Will continue to monitor. Large BM in bedpan.
--- NOTE | 2019-06-25 15:06 | NUR ---
Per PCCT, bladder scan shows 181mls. Patient feels uncomfortable and requesting straight cath. Straight cath done without difficulty. 1250mls of urine immediate return. Patient tolerated well.
[2019-06-25] MEDS: ENOXAPARIN 40 MG/0.4 ML (LOVENOX) SYR SC SCH (16:47)
[2019-06-25] MEDS: GABAPENTIN 600 MG (NEURONTIN) TAB PO SCH (20:30)
[2019-06-25] MEDS: QUEtiapine 25 MG (SEROquel) TAB IMMEDIATE RELEASE PO SCH (20:30)
[2019-06-25] MEDS: LORazepam 0.5 MG (ATIVAN) TABLET PO PRN (22:35)
[2019-06-26] MEDS: HYDROcodone/APAP 5 MG/325 MG (LORTAB) TAB PO PRN ×4 (00:16→20:46)
[2019-06-26] MEDS: RT-ALBUTEROL/IPRATROPIUM 3 ML (DUONEB) VIAL INH SCH ×4 (01:29→20:29)
[2019-06-26] MEDS: MEROPENEM 500 MG/SWFI 10 ML IV PUSH IV SCH ×4 (02:28→06:37)
[2019-06-26 04:07] VITALS: BP 138/65
[2019-06-26] MEDS: LACTOBACILLUS ACIDOPHILUS (PROBIOTIC) CAPSULE PO SCH ×4 (06:21→20:39)
[2019-06-26] MEDS: amLODIPine 10 MG (NORVASC) TAB PO SCH (06:21)
[2019-06-26] MEDS: MULTIVIT W/MINERALS TAB (THERAGRAN M) PO SCH (06:21)
[2019-06-26] MEDS: PANTOPRAZOLE 40 MG (PROTONIX) TAB PO SCH (06:21)
[2019-06-26] MEDS: CATHETER FLUSH 10 ML SYR IV SCH ×6 (06:21→22:00)
[2019-06-26] MEDS: BETHANECHOL 25 MG (URECHOLINE) TAB PO SCH ×4 (06:22→20:38)
[2019-06-26] MEDS: SILDENAFIL 20 MG (REVATIO) TAB NON-FORMULARY PO SCH ×3 (06:22→23:12)
[2019-06-26] MEDS: inSUlin ASPART (NovoLOG) 1 UNIT/0.01 ML (CHARGE PER UNIT) SC SCH ×4 (06:41→20:47)
--- NOTE | 2019-06-26 08:01 | Pulmonary Progress Note ---
Subjective Time Seen by a Provider: 11:40 Sepsis Event Evaluation Height, Weight, BMI Height: 5'10.00" Weight: 265lbs. 0.0oz. 120.723261mx; 38.0 BMI Method:Stated Exam Exam Vital Signs Date Time Temp Pulse Resp B/P (MAP) Pulse Ox O2 Delivery O2 Flow Rate FiO2 06/26/19 04:07 97.8 73 18 138/65 (89) 93 Nasal Cannula 3.00 06/26/19 01:29 90 Nasal Cannula 1.50 06/25/19 23:46 98.4 75 22 159/55 (89) 92 Nasal Cannula 3.00 06/25/19 21:09 92 Nasal Cannula 1.50 06/25/19 21:00 Nasal Cannula 2.00 06/25/19 20:30 97.5 81 16 135/66 (89) 92 Nasal Cannula 3.00 06/25/19 16:38 98.6 77 16 136/56 (82) 90 Nasal Cannula 3.00 06/25/19 14:43 90 Nasal Cannula 2.00 06/25/19 12:27 98.8 73 18 139/69 (92) 97 Nasal Cannula 2.00 06/25/19 09:00 Nasal Cannula 2.00 06/25/19 08:59 74 151/67 (95) I & O 06/26/19 07:00 Intake Total 2612.5 ml Output Total 2750 ml Balance -137.5 ml Height & Weight Height: 5'10.00" Weight: 265lbs. 0.0oz. 120.263938rs; 38.0 BMI Method:Stated General Appearance: No Apparent Distress, WD/WN HEENT: PERRL/EOMI, Normal ENT Inspection, Pharynx Normal Neck: Full Range of Motion, Non Tender, Supple Respiratory: Chest Non Tender, No Accessory Muscle Use, No Respiratory Distress, Decreased Breath Sounds Cardiovascular: Regular Rate, Rhythm, No Edema Capillary Refill: Less Than 3 Seconds Gastrointestinal: normal bowel sounds, non tender, soft Extremity: Normal Capillary Refill, No Pedal Edema Neurologic/Psychiatric: Alert, Oriented x3 Skin: Normal Color Assessment/Plan Assessment/Plan Hypoxia probably secondary to COPD -Monitor Dehiscence of lumbar surgical wound -Wound care following -Wound vac -surgery following Morbid obesity with OHS -Home CPAP machine Anemia -Monitor DM Tobacco use Debility ANIYA DUDLEY DO Jun 26, 2019 08:01
[2019-06-26] MEDS: TAMSULOSIN 0.4 MG (FLOMAX) CAP PO SCH (08:47)
[2019-06-26] MEDS: BENZONATATE 100 MG (TESSALON) CAPSULE PO SCH ×3 (08:47→20:38)
[2019-06-26] MEDS: GABAPENTIN 300 MG (NEURONTIN) CAP PO SCH (08:47)
[2019-06-26] MEDS: meTOprolol TARTRATE 25 MG (LOPRESSOR) TABLET PO SCH ×2 (08:47→20:39)
[2019-06-26] MEDS: THEOPHYLLINE ER 400 MG TAB (THEO-24) PO SCH (08:49)
[2019-06-26 08:59] VITALS: BP 143/66
[2019-06-26] MEDS: DICLOFENAC 1% GEL 100 GM (VOLTAREN) TUBE TOP SCH ×4 (08:59→20:39)
--- NOTE | 2019-06-26 11:41 | PM&R Progress Note ---
Subjective HPI/CC On Admission Date Seen by Provider: Jun 26, 2019 Time Seen by Provider: 11:00 CC: Critical illness debility HPI: This is a 68-year-old white male clinic patient of Dr. 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 Received report from Dr. Montesinos at [facility] in [place]. Patient was admitted there after difficulty weaning off the ventilator after he was intubated after failed noninvasive ventilator support after he was transferred from [facility] after his spinal surgery to [facility]. He remained on the ventilator for 3 weeks has some vocal cord dysfunction due to the long intubation status and most recently having urinary retention after Alves catheter was discontinued and currently has Klebsiella UTI maintained on Bactrim and Cipro double coverage because of such a significant organism. He had some significant hallucinations last week but that has been resolved. Patient currently remains on 2 L by nasal cannula of oxygen receives nebulizer treatments of DuoNeb every 6 hours and uses his home CPAP machine. His prior level of functioning was independent of ADLs and ambulation. I reviewed all of his current medications and pharmacy technologist here at the hospital has confirmed accuracy and all those have been continued. He does have a PICC line in his right upper arm. Upon review of the history and physical the following information was obtained: Past medical history: diabetes mellitus on oral therapy, obstructive sleep apnea, COPD with chronic respiratory failure, polycythemia due to chronic respiratory failure, tobacco use, chronic low back pain, peripheral neuropathy, PVD, CAD previous bypass surgery, thrombocytopenia, morbid obesity with hypoventilation syndrome, congestive heart failure with acute on chronic diastolic type with volume overload at admission to [facility], hyperlipidemia, hypertension, carpal tunnel syndrome, severe DJD of the right knee. He also has a history of SVT. Subjective/Events-last exam PICC line dysfunction resolved BM + multiple so doing well on that Ativan helped with the restlessness at night Weaning O2. Refuses CPAP Straight caths still required Appreciate Dr. Nayak consult. Lortab is given for the pain. Conferred with RN Reviewed therapy notes Check meds and labs I assessed the spinal wound when wound vac changed Review of Systems General: Fatigue Pulmonary: Dyspnea Objective Exam Vital Signs Vital Signs Date Time Temp Pulse Resp B/P (MAP) Pulse Ox O2 Delivery O2 Flow Rate FiO2 06/26/19 12:40 97.7 79 18 160/70 (100) 90 Nasal Cannula 2.00 Capillary Refill : Less Than 3 Seconds General Appearance: No Apparent Distress, WD/WN, Chronically ill, Obese HEENT: PERRL/EOMI, Normal ENT Inspection, Pharynx Normal, Moist Mucous Membranes Neck: Full Range of Motion, Normal Inspection, Non Tender, Supple Respiratory: Chest Non Tender, Lungs Clear, Normal Breath Sounds, No Accessory Muscle Use, No Respiratory Distress, Crackles (LLL subtle) Cardiovascular: Regular Rate, Rhythm, No Edema, No Gallop, No JVD, No Murmur Gastrointestinal: Normal Bowel Sounds, No Organomegaly, No Pulsatile Mass, Non Tender, Soft Back: Normal Inspection, No CVA Tenderness, Decreased Range of Motion Extremity: Normal Capillary Refill, Normal Inspection, Normal Range of Motion, Non Tender, No Calf Tenderness, No Pedal Edema Neurologic/Psychiatric: Alert, Oriented x3, No Motor/Sensory Deficits, senior telecommunications engineer II- XII Norm as Tested, Depressed Affect Skin: Normal Color, Warm/Dry Lymphatic: No Adenopathy Results/Procedures Lab Patient resulted labs reviewed. FIM Transfers Therapy Code Descriptions/Definitions Functional [place] Measure: 0=Not Assessed/NA 4=Minimal Assistance 1=Total Assistance 5=Supervision or Setup 2=Maximal Assistance 6=Modified [place] 3=Moderate Assistance 7=Complete [place] Therapy Quality Codes: 6 Independent with activity with or without an assistive device 5 Patient requires set up or clean up by helper. Patient completes activity by themselves 4 Supervision or touching assist (CGA). [place] provide cues , steadying assist 3 The helper provides less than half the effort to complete the activity 2 The helper provides more than half the effort to complete the activity 1 Dependent. The helper does all the effort to complete an activity 7 Patient refused to complete or attempt activity 9 The patient did not perform the activity before the current illness or injury 88 Not attempted due to Medical conditions or safety concerns Transfers (B, C, W/C) (FIM): 3 Scootin (min A further forward onto EOB, SBA to scoot buttock fwd in w/c) Rollin (min A) Roll Left to Right (QC): 4 Supine to/from Sit: 3 (supine to sit mod A with Upper Body) Sit to/from Stand: 3 (sit to stand from EOB elevated and therapist stabilizing walker Min A, sit to stand from w/c Mod A of 2) Sit to Lying (QC): 3 Sit to Stand (QC): 2 Chair/Mvu-cv-Jnypp Xfer(QC): 2 Bed to/from Chair: 4 (sliding transfer bed to w/c, no sliding board) Car Transfer (QC): 2 Gait Training Does the Patient Walk?: Yes Gait (FIM): 1 Distance (FIM): 1=up to 49 ft Distance: 20, 45 Gait Level of Assist: 4 (CGA with gait belt) Gait Persons Needed: 2 (follow with w/c, O2 tank, wound vac) Gait Assistive Device: FWW Wheelchair Training Does the Pt Use a Wheelchair?: Yes Wheelchair (FIM): 2 Wheelchair Distance: 0=754-97 ft (100ft) Distance: 150 Wheelchair Level of Assist: 3 Type of Wheelchair: Manual Mental Status/Objective Comprehension: 7 Expression: 7 Social Interaction: 7 Problem Solvin Memory: 7 ADL-Treatment Feedin (Pt able to feed self without assist) Eating (QC): 6 Groomin Oral Hygiene (QC): 5 Bathin Bathing Location: L Arm, R Arm, Chest, Abdomen Shower/Bathe Self (QC): 3 Upper Extremity Dressin Upper Body Dressing (QC): 4 Lower Extremity Dressin Lower Body Dressing (QC): 2 On/Off Footwear (QC): 1 Toiletin (Pt. was incontinent of bowel while in bed. OT removed depend in bed, and placed bed betts per pt. request, as he had to go quickly. After toileting, OT cleansed brandyn area at bed level.) Toileting Hygiene (QC): 1 Toilet/Commode Transfer: 2 Toilet Transfer (QC): 2 Shower: 0 Assessment/Plan Assessment and Plan Assess & Plan/Chief Complaint Assessment: (1) Myopathy (2) COPD (chronic obstructive pulmonary disease) (3) Respiratory failure, acute and chronic (4) Polycythemia (5) Tobacco use (6) Back pain (7) Neuropathy (8) PVD (peripheral vascular disease) (9) Hx of CABG (10) Obesity hypoventilation syndrome (11) Hypertension (12) Renal insufficiency (13) Hyperlipemia (14) Arthritis of right knee (15) Hx of supraventricular tachycardia (16) Obesity (17) Diabetes mellitus (18) SIDNEY on CPAP (19) CO2 narcosis (20) CAD (coronary artery disease) (21) Status post lumbar spine surgery for decompression of spinal cord (22) UTI Klebsiella s/p Bactrim and Cipro then DC when added Jorge and Vanc due to wound (23) Anxiety (24) Wound dehiscence requiring bedside debridement and placement of wound vac by Dr Carrasco 06/19/19 (25) Diarrhea w/mild dehydration now resolving Plan: Drs Anabelle Nayak, Rachel, Danilo are appreciated Abx changed to Jorge and Vanc for wound dehiscence and DC Cipro and Bactrim and wound vac maintained Check labs prn IRF protocol Pain control Monitor closely [place] DC High risk for C diff IS use along with Nebs Continue progress of PT with ambulation Encourage use of CPAP (1) Myopathy (2) Postoperative wound dehiscence (3) Wound drainage (4) CO2 retention (5) Hyperkalemia (6) Renal failure (7) Elevated brain natriuretic peptide (BNP) level (8) Clot retention of urine (9) COPD (chronic obstructive pulmonary disease) (10) Polycythemia (11) Diabetes mellitus (12) Back pain (13) CAD (coronary artery disease) (14) Hyperlipemia (15) Neuropathy (16) Renal insufficiency (17) PVD (peripheral vascular disease) (18) Hypertension (19) Obesity (20) Respiratory failure, acute and chronic (21) Arthritis of right knee (22) Obesity hypoventilation syndrome (23) CO2 narcosis (24) SIDNEY on CPAP (25) Hx of supraventricular tachycardia (26) Decubitus ulcer (27) Urinary retention (28) BPH (benign prostatic hyperplasia) (29) UTI due to Klebsiella species (30) Hx of CABG (31) Status post lumbar spine surgery for decompression of spinal cord (32) Tobacco use JASPER LONG DO Jun 26, 2019 11:41
[2019-06-26 12:40] VITALS: BP 160/70
[2019-06-26] MEDS: ROFLUMILAST 500 MCG TAB (DALIRESP) PO SCH (13:33)
--- NOTE | 2019-06-26 13:46 | Physical Therapy Daily Note ---
PT Daily Note-Current Subjective Pt. agreed to rx. States as Rx Rx begins that he needs to use BSC. Pt. c/o fatigue with standing Pain Location: No Pain Reported Mental Status Patient Orientation: Normal For Age Attachments: Oxygen, Other-See Comments ([place]) Transfers Therapy Code Descriptions/Definitions Functional [place] Measure: 0=Not Assessed/NA 4=Minimal Assistance 1=Total Assistance 5=Supervision or Setup 2=Maximal Assistance 6=Modified [place] 3=Moderate Assistance 7=Complete [place] Therapy Quality Codes: 6 Independent with activity with or without an assistive device 5 Patient requires set up or clean up by helper. Patient completes activity by themselves 4 Supervision or touching assist (CGA). [place] provide cues , steadying assist 3 The helper provides less than half the effort to complete the activity 2 The helper provides more than half the effort to complete the activity 1 Dependent. The helper does all the effort to complete an activity 7 Patient refused to complete or attempt activity 9 The patient did not perform the activity before the current illness or inj ury 88 Not attempted due to Medical conditions or safety concerns Transfers (B, C, W/C) (FIM): 3 Scootin Sit to/from Stand: 3 sit to stand with lower seating surface Mod to max assist 1. with pt. pulling on rail of bed to get up with both hands min assist, with seat level raised pt. has easier time sit to stand. Pushing from w/c arms was trialed and required mod assist and very taxing for pt. Gait Training side to side leftand right 4-5 ft at side of bed hanging on to bed rails CGA Exercises Seated Therapy Exercises: Ankle pumps, Sit to stand, Long arc quads, Hip flexion, Hip abd/add Seated Reps: 12 Assessment Current Status: Good Progress very fatigued with Rx, up in w/c after O2 insitu PT Short Term Goals Short Term Goals Time Frame: Jun 25, 2019 Transfers (B,C,W/C) (FIM): 3 Gait (FIM): 1 Gait Distance Comment: 5' Gait Level of Assist: 3 Gait Assistive Device: FWW Wheelchair Distance: 150 PT Mail Order Clerk Goals Snf Goals PT Snf Goals Time Frame: Jul 09, 2019 Transfers (B,C,W/C) (FIM): 4 Sit to Lying (QC): 4 Lying-Sitting on Side/Bed(QC): 4 Sit to Stand (QC): 3 Rollin (min A) Roll Left to Right (QC): 4 Chair/Gmg-ml-Bwglq Xfer(QC): 3 Car Transfer (QC): 3 Gait (FIM): 1 Distance: 20' Walk 10 feet (QC): 3 Walk 10ft-Uneven Surface(QC): 3 Gait Level of Assist: 4 Gait Assistive Device: FWW Wheelchair (FIM): 6 Distance: 150' Wheelchair Level of Assist: 5 Wheel 50 feet with 2 turns (QC: 4 PT Plan Treatment/Plan Treatment Plan: Continue Plan of Care Treatment Plan: Bed Mobility, Concurrent Therapy, Education, Functional Activity Leo, Functional Strength, Group Therapy, Gait, Safety, Therapeutic Exercise, Transfers Treatment Duration: Jul 09, 2019 Frequency: At least 5 of 7 days/Wk (IRF) Estimated Hrs Per Day: 1.5 hours per day Patient and/or Family Agrees t: Yes Safety Risks/Education Patient Education: Gait Training, Transfer Techniques, Correct Positioning, Disease Process, Safety Issues Teaching Recipient: Patient Teaching Methods: Demonstration, Discussion Response to Teaching: Verbalize Understanding, Return Demonstration, Reinforcement Needed Time/GCodes Time In: 1305 Time Out: 1330 Total Billed Treatment Time: 25 Total Billed Treatment 1,FA25m G Codes Necessary: REGIS Mancera SOLAR ELECTRIC INSTALLER Jun 26, 2019 13:46
[2019-06-26 15:51] VITALS: BP 156/62
[2019-06-26] MEDS: ENOXAPARIN 40 MG/0.4 ML (LOVENOX) SYR SC SCH (16:48)
[2019-06-26] MEDS: LORazepam 0.5 MG (ATIVAN) TABLET PO PRN (18:27)
[2019-06-26 19:57] VITALS: BP 147/63
[2019-06-26] MEDS: GABAPENTIN 600 MG (NEURONTIN) TAB PO SCH (20:38)
[2019-06-26] MEDS: QUEtiapine 25 MG (SEROquel) TAB IMMEDIATE RELEASE PO SCH (20:38)
[2019-06-27] VITALS: BP 142/71
[2019-06-27] MEDS: RT-ALBUTEROL/IPRATROPIUM 3 ML (DUONEB) VIAL INH SCH ×3 (03:03→14:28)
[2019-06-27 03:04] VITALS: BP 139/68
[2019-06-27] MEDS: inSUlin ASPART (NovoLOG) 1 UNIT/0.01 ML (CHARGE PER UNIT) SC SCH ×4 (06:06→22:15)
[2019-06-27] MEDS: LACTOBACILLUS ACIDOPHILUS (PROBIOTIC) CAPSULE PO SCH ×4 (06:29→22:13)
[2019-06-27] MEDS: amLODIPine 10 MG (NORVASC) TAB PO SCH (06:29)
[2019-06-27] MEDS: PANTOPRAZOLE 40 MG (PROTONIX) TAB PO SCH (06:29)
[2019-06-27] MEDS: HYDROcodone/APAP 5 MG/325 MG (LORTAB) TAB PO PRN ×3 (06:29→21:44)
[2019-06-27] MEDS: CATHETER FLUSH 10 ML SYR IV SCH ×6 (06:30→22:16)
[2019-06-27] MEDS: SILDENAFIL 20 MG (REVATIO) TAB NON-FORMULARY PO SCH ×3 (06:30→22:19)
[2019-06-27] MEDS: MULTIVIT W/MINERALS TAB (THERAGRAN M) PO SCH (06:31)
[2019-06-27] MEDS: BETHANECHOL 25 MG (URECHOLINE) TAB PO SCH (06:31)
[2019-06-27 08:00] VITALS: BP 146/70
[2019-06-27] MEDS: meTOprolol TARTRATE 25 MG (LOPRESSOR) TABLET PO SCH ×2 (08:30→22:14)
[2019-06-27] MEDS: GABAPENTIN 300 MG (NEURONTIN) CAP PO SCH (08:30)
[2019-06-27] MEDS: BENZONATATE 100 MG (TESSALON) CAPSULE PO SCH ×3 (08:30→22:14)
[2019-06-27] MEDS: TAMSULOSIN 0.4 MG (FLOMAX) CAP PO SCH (08:30)
[2019-06-27] MEDS: THEOPHYLLINE ER 400 MG TAB (THEO-24) PO SCH (08:32)
[2019-06-27] MEDS: DICLOFENAC 1% GEL 100 GM (VOLTAREN) TUBE TOP SCH ×4 (08:32→22:15)
--- NOTE | 2019-06-27 09:45 | Pulmonary Progress Note ---
Subjective Time Seen by a Provider: 11:41 Sepsis Event Evaluation Height, Weight, BMI Height: 5'10.00" Weight: 265lbs. 0.0oz. [id number]; 38.0 BMI Method:Stated Exam Exam Vital Signs Date Time Temp Pulse Resp B/P (MAP) Pulse Ox O2 Delivery O2 Flow Rate FiO2 06/27/19 08:00 98.2 83 20 146/70 (95) 95 Nasal Cannula 2.00 06/27/19 07:32 93 Nasal Cannula 3.00 06/27/19 03:04 97.7 79 20 139/68 (91) 92 Nasal Cannula 2.00 06/27/19 03:03 93 Nasal Cannula 3.00 06/27/19 00:00 97.6 81 22 142/71 (94) 91 Nasal Cannula 2.00 06/26/19 21:00 Nasal Cannula 3.00 06/26/19 20:29 90 Nasal Cannula 2.00 06/26/19 19:57 98.8 79 22 147/63 (91) 93 Nasal Cannula 2.00 06/26/19 15:51 99.6 83 22 156/62 (93) 94 Nasal Cannula 2.00 06/26/19 15:20 91 Nasal Cannula 2.00 06/26/19 12:40 97.7 79 18 160/70 (100) 90 Nasal Cannula 2.00 I & O 06/27/19 07:00 Intake Total 1410 ml Output Total 1700 ml Balance -290 ml Height & Weight Height: 5'10.00" Weight: 265lbs. 0.0oz. 120.037820xm; 38.0 BMI Method:Stated General Appearance: WD/WN HEENT: PERRL/EOMI, Normal ENT Inspection, Pharynx Normal Neck: Full Range of Motion, Non Tender, Supple Respiratory: Chest Non Tender, Normal Breath Sounds, No Accessory Muscle Use, No Respiratory Distress Cardiovascular: Regular Rate, Rhythm, No Gallop, No JVD Capillary Refill: Less Than 3 Seconds Gastrointestinal: normal bowel sounds, non tender, soft Extremity: Normal Capillary Refill, Normal Inspection, No Pedal Edema Neurologic/Psychiatric: Alert, Oriented x3 Skin: Normal Color, Warm/Dry Assessment/Plan Assessment/Plan Hypoxia probably secondary to COPD -Monitor Dehiscence of lumbar surgical wound -Wound care following -Wound vac -surgery following Morbid obesity with OHS -Home CPAP machine Anemia -Monitor DM Tobacco use Debility ANIYA DUDLEY DO Jun 27, 2019 09:45
--- NOTE | 2019-06-27 10:48 | NUR ---
Patient more SOA this AM. 02 was increased from 2-3L last night. Encouraged I/S use. Average inspired volume- 250 to 500 max with poor breath hold. Patient continues to refuse to wear CPAP at HS. Dr. Law to floor and informed. Orders to hold Urecholine and update Dr. Ahn. Dr. Ahn notified. Also informed of 2-3+ edema to bilateral lower extremities. Orders for a chest XRAY (2 view), CBC, CMP, Mag, and Phos.
--- NOTE | 2019-06-27 10:54 | NUR ---
Dr. Nayak notified that Urecholine was put on hold.
--- NOTE | 2019-06-27 11:35 | PM&R Progress Note ---
Subjective HPI/CC On Admission Date Seen by Provider: Jun 27, 2019 Time Seen by Provider: 10:10 CC: Critical illness debility HPI: This is a 68-year-old white male clinic patient of Dr. 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 Received report from Dr. Montesinos at [facility] in [place]. Patient was admitted there after difficulty weaning off the ventilator after he was intubated after failed noninvasive ventilator support after he was transferred from [facility] after his spinal surgery to [facility]. He remained on the ventilator for 3 weeks has some vocal cord dysfunction due to the long intubation status and most recently having urinary retention after Alves catheter was discontinued and currently has Klebsiella UTI maintained on Bactrim and Cipro double coverage because of such a significant organism. He had some significant hallucinations last week but that has been resolved. Patient currently remains on 2 L by nasal cannula of oxygen receives nebulizer treatments of DuoNeb every 6 hours and uses his home CPAP machine. His prior level of functioning was independent of ADLs and ambulation. I reviewed all of his current medications and manager of pharmacy here at the hospital has confirmed accuracy and all those have been continued. He does have a PICC line in his right upper arm. Upon review of the history and physical the following information was obtained: Past medical history: diabetes mellitus on oral therapy, obstructive sleep apnea, COPD with chronic respiratory failure, polycythemia due to chronic respiratory failure, tobacco use, chronic low back pain, peripheral neuropathy, PVD, CAD previous bypass surgery, thrombocytopenia, morbid obesity with hypoventilation syndrome, congestive heart failure with acute on chronic diastolic type with volume overload at admission to [facility], hyperlipidemia, hypertension, carpal tunnel syndrome, severe DJD of the right knee. He also has a history of SVT. Subjective/Events-last exam Patient having difficulty trying to get comfortable Left leg pain is chronic and that is the reason he required spinal surgery so this will be difficult to manage Gabapentin is maintained Venous stasis changes in his legs noted Vanc and meropenem were discontinued since he is completed that therapy Oxygen maintains at 91% on 3 L He states he is using his incentive spirometer and getting up to 1500 but he now is only getting up to 250 and the nurse made sure she clarified that for me Unsure if he will be able to maintain the current treatment if we have plateaued with his recovery may need to look at chcf Conferred with RN Reviewed therapy notes Check meds and labs Review of Systems General: Fatigue Pulmonary: Dyspnea Musculoskeletal: back pain, leg pain Objective Exam Vital Signs Vital Signs Date Time Temp Pulse Resp B/P (MAP) Pulse Ox O2 Delivery O2 Flow Rate FiO2 06/27/19 19:37 98.4 84 18 152/60 (90) 94 Nasal Cannula 2.00 Capillary Refill : Less Than 3 Seconds General Appearance: No Apparent Distress, WD/WN, Chronically ill, Obese HEENT: PERRL/EOMI, Normal ENT Inspection, Pharynx Normal, Moist Mucous Membranes Neck: Full Range of Motion, Normal Inspection, Non Tender, Supple Respiratory: Chest Non Tender, Lungs Clear, Normal Breath Sounds, No Accessory Muscle Use, No Respiratory Distress, Crackles (LLL subtle) Cardiovascular: Regular Rate, Rhythm, No Edema, No Gallop, No JVD, No Murmur Gastrointestinal: Normal Bowel Sounds, No Organomegaly, No Pulsatile Mass, Non Tender, Soft Back: Normal Inspection, No CVA Tenderness, Decreased Range of Motion Extremity: Normal Capillary Refill, Normal Inspection, Normal Range of Motion, Non Tender, No Calf Tenderness, No Pedal Edema Neurologic/Psychiatric: Alert, Oriented x3, No Motor/Sensory Deficits, 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 FIM Transfers Therapy Code Descriptions/Definitions Functional [place] Measure: 0=Not Assessed/NA 4=Minimal Assistance 1=Total Assistance 5=Supervision or Setup 2=Maximal Assistance 6=Modified [place] 3=Moderate Assistance 7=Complete [place] Therapy Quality Codes: 6 Independent with activity with or without an assistive device 5 Patient requires set up or clean up by helper. Patient completes activity by themselves 4 Supervision or touching assist (CGA). [place] provide cues , steadying assist 3 The helper provides less than half the effort to complete the activity 2 The helper provides more than half the effort to complete the activity 1 Dependent. The helper does all the effort to complete an activity 7 Patient refused to complete or attempt activity 9 The patient did not perform the activity before the current illness or injury 88 Not attempted due to Medical conditions or safety concerns Transfers (B, C, W/C) (FIM): 3 Scootin Rollin (min A) Roll Left to Right (QC): 4 Supine to/from Sit: 3 (supine to sit mod A with Upper Body) Sit to/from Stand: 3 Sit to Lying (QC): 3 Sit to Stand (QC): 2 Chair/Zry-bg-Aaqel Xfer(QC): 2 Bed to/from Chair: 4 (sliding transfer bed to w/c, no sliding board) Car Transfer (QC): 2 Gait Training Does the Patient Walk?: Yes Gait (FIM): 1 Distance (FIM): 1=up to 49 ft Distance: 20, 45 Gait Level of Assist: 4 (CGA with gait belt) Gait Persons Needed: 2 (follow with w/c, O2 tank, wound vac) Gait Assistive Device: FWW Wheelchair Training Does the Pt Use a Wheelchair?: Yes Wheelchair (FIM): 2 Wheelchair Distance: 1=935-03 ft (100ft) Distance: 150 Wheelchair Level of Assist: 3 Type of Wheelchair: Manual Mental Status/Objective Comprehension: 7 Expression: 7 Social Interaction: 7 Problem Solvin Memory: 7 ADL-Treatment Feedin (Pt able to feed self without assist) Eating (QC): 6 Groomin Oral Hygiene (QC): 5 Bathin Bathing Location: L Arm, R Arm, Chest, Abdomen Shower/Bathe Self (QC): 3 Upper Extremity Dressin Upper Body Dressing (QC): 4 Lower Extremity Dressin Lower Body Dressing (QC): 2 On/Off Footwear (QC): 1 Toiletin (Pt. was incontinent of bowel while in bed. OT removed depend in bed, and placed bed betts per pt. request, as he had to go quickly. After toileti ng, OT cleansed brandyn area at bed level.) Toileting Hygiene (QC): 1 Toilet/Commode Transfer: 2 Toilet Transfer (QC): 2 Shower: 0 Assessment/Plan Assessment and Plan Assess & Plan/Chief Complaint Assessment: (1) Myopathy (2) COPD (chronic obstructive pulmonary disease) (3) Respiratory failure, acute and chronic (4) Polycythemia (5) Tobacco use (6) Back pain (7) Neuropathy (8) PVD (peripheral vascular disease) (9) Hx of CABG (10) Obesity hypoventilation syndrome (11) Hypertension (12) Renal insufficiency (13) Hyperlipemia (14) Arthritis of right knee (15) Hx of supraventricular tachycardia (16) Obesity (17) Diabetes mellitus (18) SIDNEY on CPAP (19) CO2 narcosis (20) CAD (coronary artery disease) (21) Status post lumbar spine surgery for decompression of spinal cord (22) UTI Klebsiella s/p Bactrim and Cipro then DC when added Jorge and Vanc due to wound (23) Anxiety (24) Wound dehiscence requiring bedside debridement and placement of wound vac by Dr Carrasco 06/19/19 (25) Diarrhea w/mild dehydration now resolving Plan: Drs Malini, Anabelle, Rachel, Danilo are appreciated Abx changed to Jorge and Vanc for wound dehiscence and DC Cipro and Bactrim and wound vac maintained now abx regimen completed 06/27/19 Check labs prn IRF protocol Pain control Monitor closely Questran DC High risk for C diff IS use along with Nebs Continue progress of PT with ambulation Encourage use of CPAP Unsure how much recovery he will be able to obtain in IRF? (1) Myopathy (2) Postoperative wound dehiscence (3) Wound drainage (4) CO2 retention (5) Hyperkalemia (6) Renal failure (7) Elevated brain natriuretic peptide (BNP) level (8) Clot retention of urine (9) COPD (chronic obstructive pulmonary disease) (10) Polycythemia (11) Diabetes mellitus (12) Back pain (13) CAD (coronary artery disease) (14) Hyperlipemia (15) Neuropathy (16) Renal insufficiency (17) PVD (peripheral vascular disease) (18) Hypertension (19) Obesity (20) Respiratory failure, acute and chronic (21) Arthritis of right knee (22) Obesity hypoventilation syndrome (23) CO2 narcosis (24) SIDNEY on CPAP (25) Hx of supraventricular tachycardia (26) Decubitus ulcer (27) Urinary retention (28) BPH (benign prostatic hyperplasia) (29) UTI due to Klebsiella species (30) Hx of CABG (31) Status post lumbar spine surgery for decompression of spinal cord (32) Tobacco use JASPER LONG DO Jun 27, 2019 11:34
[2019-06-27 12:01] LABS: BASOPHILS % (AUTO) 1 % (0-10); EOSINOPHILS # (AUTO) 0.2 10^3/uL (0.0-0.3); EOSINOPHILS % (AUTO) 4 % (0-10); HEMATOCRIT 27 % (40-54); HEMOGLOBIN 8.1 G/DL (13.3-17.7); LYMPHOCYTES # (AUTO) 1.2 X 10^3 (1.0-4.0); LYMPHOCYTES % (AUTO) 19 % (12-44); MEAN CORPUSCULAR HEMOGLOBIN 27 PG (25-34); MEAN CORPUSCULAR HGB CONC 30 G/DL (32-36); MEAN CORPUSCULAR VOLUME 92 FL (80-99); MONOCYTES # (AUTO) 0.6 X 10^3 (0.0-1.0); MONOCYTES % (AUTO) 9 % (0-12); NEUTROPHILS # (AUTO) 4.2 X 10^3 (1.8-7.8); NEUTROPHILS % (AUTO) 68 % (42-75); PLATELET COUNT 312 10^3/uL (130-400); RED CELL DISTRIBUTION WIDTH 17.2 % (10.0-14.5); WHITE BLOOD COUNT 6.2 10^3/uL (4.3-11.0)
[2019-06-27 12:15] VITALS: BP 167/64
[2019-06-27 12:19] LABS: ALANINE AMINOTRANSFERASE 24 U/L (0-55); ALBUMIN 3.2 GM/DL (3.2-4.5); ALKALINE PHOSPHATASE 140 U/L (40-136); BILIRUBIN,TOTAL 0.3 MG/DL (0.1-1.0); BUN/CREATININE RATIO 18; CALCIUM 9.2 MG/DL (8.5-10.1); CARBON DIOXIDE 22 MMOL/L (21-32); CHLORIDE 102 MMOL/L (98-107); CREATININE SERUM 0.99 MG/DL (0.60-1.30); GFR ESTIMATED > 60; GLUCOSE 217 MG/DL (70-105); MAGNESIUM 1.4 MG/DL (1.8-2.4); PHOSPHORUS 2.4 MG/DL (2.3-4.7); POTASSIUM 4.7 MMOL/L (3.6-5.0); SODIUM 137 MMOL/L (135-145); TOTAL PROTEIN 6.9 GM/DL (6.4-8.2)
--- NOTE | 2019-06-27 13:20 | Diagnostic Imaging Report ---
PA and lateral chest. Comparison made to the prior radiograph from 06/18/2019. Findings: Right-sided PICC line remains in place and appears to extend to the right atrium. The patient is status post prior sternotomy. Heart size stable. Central pulmonary vascularity appears appropriate. There is no focal alveolar consolidation or significant effusion evident on today's exam. There is no pneumothorax. Impression: 1. Prior operative changes of bypass grafting. Heart size mildly prominent but unchanged from the prior examination. Pulmonary vascularity appears within normal limits on today's study. There is no focal alveolar infiltrate. Dictated by: Dictated on workstation # [id number]
[2019-06-27] MEDS: ROFLUMILAST 500 MCG TAB (DALIRESP) PO SCH (13:28)
--- NOTE | 2019-06-27 14:07 | NUR ---
Dr. Ahn notified of lab and XRAY results. New order for Mag Sulfate- 2 GM IV X1 now.
[2019-06-27] MEDS: MAGNESIUM 1 GM/100 ML IVPB 100 ML IV SCH ×2 (14:15→15:17)
--- NOTE | 2019-06-27 14:29 | NUR ---
Straight cath done per patient's request. 350mls of urine immediate return. Patient tolerated well.
[2019-06-27 16:07] VITALS: BP 146/62
[2019-06-27] MEDS: ENOXAPARIN 40 MG/0.4 ML (LOVENOX) SYR SC SCH (17:12)
[2019-06-27] MEDS: LORazepam 0.5 MG (ATIVAN) TABLET PO PRN ×2 (17:13→21:43)
[2019-06-27 19:37] VITALS: BP 152/60
[2019-06-27] MEDS: GABAPENTIN 600 MG (NEURONTIN) TAB PO SCH (22:13)
[2019-06-27] MEDS: QUEtiapine 25 MG (SEROquel) TAB IMMEDIATE RELEASE PO SCH (22:14)
--- NOTE | 2019-06-27 22:45 | NUR ---
Patient bladder scanned et showed 313ml. Straight cathed at this time using sterile technique. 850ml yellow colored urine obtained. Patient reports pressure relieved.
[2019-06-28] VITALS (9 sets, daily range): BP systolic 117–156; BP diastolic 65–75
[2019-06-28] MEDS: RT-ALBUTEROL/IPRATROPIUM 3 ML (DUONEB) VIAL INH SCH ×5 (02:40→23:05)
[2019-06-28] MEDS: LORazepam 0.5 MG (ATIVAN) TABLET PO PRN ×2 (02:44→20:52)
[2019-06-28] MEDS: HYDROcodone/APAP 5 MG/325 MG (LORTAB) TAB PO PRN ×3 (04:32→20:53)
[2019-06-28] MEDS: PANTOPRAZOLE 40 MG (PROTONIX) TAB PO SCH (06:20)
[2019-06-28] MEDS: LACTOBACILLUS ACIDOPHILUS (PROBIOTIC) CAPSULE PO SCH ×4 (06:20→20:47)
[2019-06-28] MEDS: CATHETER FLUSH 10 ML SYR IV SCH ×5 (06:21→21:54)
[2019-06-28] MEDS: amLODIPine 10 MG (NORVASC) TAB PO SCH (06:21)
[2019-06-28] MEDS: MULTIVIT W/MINERALS TAB (THERAGRAN M) PO SCH (06:21)
[2019-06-28] MEDS: inSUlin ASPART (NovoLOG) 1 UNIT/0.01 ML (CHARGE PER UNIT) SC SCH ×5 (06:23→21:54)
[2019-06-28] MEDS: SILDENAFIL 20 MG (REVATIO) TAB NON-FORMULARY PO SCH ×3 (06:23→21:54)
--- NOTE | 2019-06-28 08:27 | NUR ---
Pt working w OT, Assessed sacral area after pt stood w assist of OT, Removed Allevyn patch to assess. Area looks good, pink.
--- NOTE | 2019-06-28 08:28 | PM&R Progress Note ---
Subjective HPI/CC On Admission Date Seen by Provider: Jun 28, 2019 Time Seen by Provider: 08:30 CC: Critical illness debility HPI: This is a 68-year-old white male clinic patient of Dr. 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 Received report from Dr. Montesinos at [facility] in [place]. Patient was admitted there after difficulty weaning off the ventilator after he was intubated after failed noninvasive ventilator support after he was transferred from [facility] after his spinal surgery to [facility]. He remained on the ventilator for 3 weeks has some vocal cord dysfunction due to the long intubation status and most recently having urinary retention after Alves catheter was discontinued and currently has Klebsiella UTI maintained on Bactrim and Cipro double coverage because of such a significant organism. He had some significant hallucinations last week but that has been resolved. Patient currently remains on 2 L by nasal cannula of oxygen receives nebulizer treatments of DuoNeb every 6 hours and uses his home CPAP machine. His prior level of functioning was independent of ADLs and ambulation. I reviewed all of his current medications and outpatient pharmacy manager here at the hospital has confirmed accuracy and all those have been continued. He does have a PICC line in his right upper arm. Upon review of the history and physical the following information was obtained: Past medical history: diabetes mellitus on oral therapy, obstructive sleep apnea, COPD with chronic respiratory failure, polycythemia due to chronic respiratory failure, tobacco use, chronic low back pain, peripheral neuropathy, PVD, CAD previous bypass surgery, thrombocytopenia, morbid obesity with hypoventilation syndrome, congestive heart failure with acute on chronic diastolic type with volume overload at admission to [facility], hyperlipidemia, hypertension, carpal tunnel syndrome, severe DJD of the right knee. He also has a history of SVT. Subjective/Events-last exam Picc line dysfunction will be addressed by picc line nurses Refuses CPAP Refuses BiPAP Can't sleep Slept through his straight cath early this morning Urecholine on hold due to possibility of making respiratory status worse Completed antibiotics He feels like he is always short of breath He feels the shoe on his foot makes it feel better Will add back home Lasix and wide VARUN wraps for edema Conferred with RN Reviewed therapy notes Check meds and labs Review of Systems General: Fatigue Pulmonary: Dyspnea Objective Exam Vital Signs Vital Signs Date Time Temp Pulse Resp B/P (MAP) Pulse Ox O2 Delivery O2 Flow Rate FiO2 06/28/19 16:15 98.0 76 16 153/66 (95) 93 Nasal Cannula 2.00 Capillary Refill : Less Than 3 Seconds General Appearance: No Apparent Distress, WD/WN, Chronically ill, Obese HEENT: PERRL/EOMI, Normal ENT Inspection, Pharynx Normal, Moist Mucous Membranes Neck: Full Range of Motion, Normal Inspection, Non Tender, Supple Respiratory: Chest Non Tender, Lungs Clear, Normal Breath Sounds, No Accessory Muscle Use, No Respiratory Distress, Crackles (LLL subtle) Cardiovascular: Regular Rate, Rhythm, No Gallop, No JVD, No Murmur Gastrointestinal: Normal Bowel Sounds, No Organomegaly, No Pulsatile Mass, Non Tender, Soft Back: Normal Inspection, No CVA Tenderness, Decreased Range of Motion Extremity: Normal Capillary Refill, Normal Inspection, Normal Range of Motion, Non Tender, No Calf Tenderness, Pedal Edema Neurologic/Psychiatric: Alert, Oriented x3, No Motor/Sensory Deficits, 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 FIM Transfers Therapy Code Descriptions/Definitions Functional [place] Measure: 0=Not Assessed/NA 4=Minimal Assistance 1=Total Assistance 5=Supervision or Setup 2=Maximal Assistance 6=Modified [place] 3=Moderate Assistance 7=Complete [place] Therapy Quality Codes: 6 Independent with activity with or without an assistive device 5 Patient requires set up or clean up by helper. Patient completes activity by themselves 4 Supervision or touching assist (CGA). [place] provide cues , steadying assist 3 The helper provides less than half the effort to complete the activity 2 The helper provides more than half the effort to complete the activity 1 Dependent. The helper does all the effort to complete an activity 7 Patient refused to complete or attempt activity 9 The patient did not perform the activity before the current illness or injury 88 Not attempted due to Medical conditions or safety concerns Transfers (B, C, W/C) (FIM): 3 Scootin Rollin (min A) Roll Left to Right (QC): 4 Supine to/from Sit: 3 (supine to sit mod A with Upper Body) Sit to/from Stand: 3 Sit to Lying (QC): 3 Sit to Stand (QC): 2 Chair/Wxm-mo-Ucbit Xfer(QC): 2 Bed to/from Chair: 4 (sliding transfer bed to w/c, no sliding board) Car Transfer (QC): 2 Gait Training Does the Patient Walk?: Yes Gait (FIM): 1 Distance (FIM): 1=up to 49 ft Distance: 20, 45 Gait Level of Assist: 4 (CGA with gait belt) Gait Persons Needed: 2 (follow with w/c, O2 tank, wound vac) Gait Assistive Device: FWW Wheelchair Training Does the Pt Use a Wheelchair?: Yes Wheelchair (FIM): 2 Wheelchair Distance: 2=059-53 ft (100ft) Distance: 150 Wheelchair Level of Assist: 3 Type of Wheelchair: Manual Mental Status/Objective Comprehension: 7 Expression: 7 Social Interaction: 7 Problem Solvin Memory: 7 ADL-Treatment Feedin (Pt able to feed self without assist) Eating (QC): 6 Groomin Oral Hygiene (QC): 5 Bathin Bathing Location: L Arm, R Arm, Chest, Abdomen Shower/Bathe Self (QC): 3 Upper Extremity Dressin Upper Body Dressing (QC): 4 Lower Extremity Dressin Lower Body Dressing (QC): 2 On/Off Footwear (QC): 1 Toiletin (Pt. was incontinent of bowel while in bed. OT removed depend in bed, and placed bed betts per pt. request, as he had to go quickly. After toileting, OT cleansed brandyn area at bed level.) Toileting Hygiene (QC): 1 Toilet/Commode Transfer: 2 Toilet Transfer (QC): 2 Shower: 0 Assessment/Plan Assessment and Plan Assess & Plan/Chief Complaint Assessment: (1) Myopathy (2) COPD (chronic obstructive pulmonary disease) (3) Respiratory failure, acute and chronic (4) Polycythemia (5) Tobacco use (6) Back pain (7) Neuropathy (8) PVD (peripheral vascular disease) (9) Hx of CABG (10) Obesity hypoventilation syndrome (11) Hypertension (12) Renal insufficiency (13) Hyperlipemia (14) Arthritis of right knee (15) Hx of supraventricular tachycardia (16) Obesity (17) Diabetes mellitus (18) SIDNEY on CPAP (19) CO2 narcosis (20) CAD (coronary artery disease) (21) Status post lumbar spine surgery for decompression of spinal cord (22) UTI Klebsiella s/p Bactrim and Cipro then DC when added Jorge and Vanc due to wound (23) Anxiety (24) Wound dehiscence requiring bedside debridement and placement of wound vac by Dr Carrasco 06/19/19 (25) Diarrhea w/mild dehydration now resolving (26) edema Plan: Drs Malini, Anabelle, Rachel, Danilo are appreciated Abx changed to Jorge and Vanc for wound dehiscence and DC Cipro and Bactrim and wound vac maintained now abx regimen completed 06/27/19 Check labs prn IRF protocol Pain control Monitor closely Questran DC High risk for C diff IS use along with Nebs Continue progress of PT with ambulation Encourage use of CPAP Unsure how much recovery he will be able to obtain in IRF? Restart Lasix and potassium along with VARUN wraps (1) Myopathy (2) Postoperative wound dehiscence (3) Wound drainage (4) CO2 retention (5) Hyperkalemia (6) Renal failure (7) Elevated brain natriuretic peptide (BNP) level (8) Clot retention of urine (9) COPD (chronic obstructive pulmonary disease) (10) Polycythemia (11) Diabetes mellitus (12) Back pain (13) CAD (coronary artery disease) (14) Hyperlipemia (15) Neuropathy (16) Renal insufficiency (17) PVD (peripheral vascular disease) (18) Hypertension (19) Obesity (20) Respiratory failure, acute and chronic (21) Arthritis of right knee (22) Obesity hypoventilation syndrome (23) CO2 narcosis (24) SIDNEY on CPAP (25) Hx of supraventricular tachycardia (26) Decubitus ulcer (27) Urinary retention (28) BPH (benign prostatic hyperplasia) (29) UTI due to Klebsiella species (30) Hx of CABG (31) Status post lumbar spine surgery for decompression of spinal cord (32) Tobacco use JASPER LONG DO Jun 28, 2019 08:27
--- NOTE | 2019-06-28 08:59 | Occupational Ther Daily Note ---
OT Current Status-Daily Note Subjective Pt dozing in bed, woke to name. Pt had difficulty with waking fully, stated that he got to sleep late last night. Pt agrees to therapy. No c/o pain. Mental Status/Objective Patient Orientation: Person, Place, Time, Situation Therapy Code Descriptions/Definitions Functional [place] Measure: 0=Not Assessed/NA 4=Minimal Assistance 1=Total Assistance 5=Supervision or Setup 2=Maximal Assistance 6=Modified [place] 3=Moderate Assistance 7=Complete [place] Attachments: Drains (wound vac), IV (midline), Oxygen ADL-Treatment Pt takes increased time to complete ADLs tasks. Pt in supine, given cleansing clothes bathed brandyn area. Mod A for supine to sitting, sitting EOB by self. Using AE pt able to don pants/briefs over feet then assist to hike over hips. Assist to don/doff socks. Assist to cleanse buttocks in standing. Pt required recovery break after standing to complete lower body ADLs before transferring to w/c. With bed elevated, CGA for sit to stand and min A for transfer. Pt completed grooming and upper body bathing/dressing sitting at sink. After therapy, pt sitting in w/c with call light/phone in reach. All needs met in room. Therapy Code Descriptions/Definitions Functional [place] Measure: 0=Not Assessed/NA 4=Minimal Assistance 1=Total Assistance 5=Supervision or Setup 2=Maximal Assistance 6=Modified [place] 3=Moderate Assistance 7=Complete [place] Therapy Quality Codes: 6 Independent with activity with or without an assistive device 5 Patient requires set up or clean up by helper. Patient completes activity by themselves 4 Supervision or touching assist (CGA). [place] provide cues , steadying assist 3 The helper provides less than half the effort to complete the activity 2 The helper provides more than half the effort to complete the activity 1 Dependent. The helper does all the effort to complete an activity 7 Patient refused to complete or attempt activity 9 The patient did not perform the activity before the current illness or injury 88 Not attempted due to Medical conditions or safety concerns Grooming (FIM): 6 Oral Hygiene (QC): 6 Upper Body (FIM): 5 Upper Body Dressing (QC): 5 Lower Body Dressing (FIM): 2 Lower Body Dressing (QC): 2 On/Off Footwear (QC): 2 OT Short Term Goals Short Term Goals Time Frame: Jun 25, 2019 Grooming(FIM): 5 Bathing(FIM): 3 Lower Body Dressing(FIM): 3 Toileting(FIM): 3 Transfers (B,C,W/C) (FIM): 3 Toilet/Commode Transfer(FIM): 3 Additional Short Term Goals: 1-Demonstrate ADL Tasks, 2-Verbalize Understanding, 3-ImproveStrength/Leo 1=Demonstrate adherence to instructed precautions during ADL tasks. 2=Patient will verbalize/demonstrate understanding of assistive devices/modifications for ADL. 3=Patient will improve strength/tolerance for activity to enable patient to perform ADL's. OT Senior Living Goals Boiler Control Technician Goals Time Frame: Jul 09, 2019 Eating (FIM): 6 Eating (QC): 6 Groomin Oral Hygiene (QC): 6 Bathing(FIM): 5 Shower/Bathe Self (QC): 5 Upper Body Dressing(FIM): 6 Upper Body Dressing (QC): 6 Lower Body Dressing(FIM): 6 Lower Body Dressing (QC): 5 On/Off Footwear (QC): 5 Toileting(FIM): 6 Toileting Hygiene (QC): 6 Toilet/Commode Transfer(FIM): 6 Toilet/Commode Transfer (QC): 6 Shower Transfer(FIM): 5 Comprehension(FIM): 7 Expression (FIM): 7 Social Interaction(FIM): 7 Problem Solving(FIM): 7 Memory(FIM): 7 Additional Goals: 1-Demonstrate ADL Tasks, 2-Verbalize Understanding, 3- ImproveStrength/Leo 1=Demonstrate adherence to instructed precautions during ADL tasks. 2=Patient will verbalize/demonstrate understanding of assistive devices/modifications for ADL. 3=Patient will improve strength/tolerance for activity to enable patient to perform ADL's. OT Education/Plan Problem List/Assessment Assessment: Decreased Activ Tolerance, Impaired Funct Balance, Impaired Self- Care Skills, Restricted Funct UE ROM Discharge Recommendations Plan/Recommendations: Continue POC Treatment Plan/Plan of Care Patient would benefit from OT for education, treatment and training to promote independence in ADL's, mobility, safety and/or upper extremity function for ADL's. Plan of Care: ADL Retraining, Functional Mobility, Group Exercise/Act as Ind, UE Funct Exercise/Act Treatment Duration: Jul 09, 2019 Frequency: At least 5 of 7 days/Wk (IRF) Estimated Hrs Per Day: 1.5 hours per day Agreement: Yes Rehab Potential: Fair Time/GCodes Start Time: 08:00 Stop Time: 09:00 Total Time Billed (hr/min): 60 Billed Treatment Time 1 visit-ADL 4 (60 min) AMANDA WEINER Jun 28, 2019 08:59
[2019-06-28] MEDS: GABAPENTIN 300 MG (NEURONTIN) CAP PO SCH (09:33)
[2019-06-28] MEDS: BENZONATATE 100 MG (TESSALON) CAPSULE PO SCH ×3 (09:33→20:47)
[2019-06-28] MEDS: meTOprolol TARTRATE 25 MG (LOPRESSOR) TABLET PO SCH ×2 (09:33→20:52)
[2019-06-28] MEDS: TAMSULOSIN 0.4 MG (FLOMAX) CAP PO SCH (09:33)
[2019-06-28] MEDS: THEOPHYLLINE ER 400 MG TAB (THEO-24) PO SCH (09:45)
[2019-06-28] MEDS: DICLOFENAC 1% GEL 100 GM (VOLTAREN) TUBE TOP SCH ×4 (10:02→20:57)
--- NOTE | 2019-06-28 10:21 | Progress Note - Urology ---
Progress Note-Urology Progress Notes/Assess & Plan Progress/Assessment & Plan UNABLE TO VOID ON OWN. DID NOT TOLERATE URECHOLINE (SOB). MAY BENEFIT FROM UROLIFT ONCE MEDICALLY WELL FOR IT. NO NEED FOR TURP. GLASER BACK IN FOR NOW Final Diagnosis URINE RETENTION NOÉ BURNS MD Jun 28, 2019 10:21
--- NOTE | 2019-06-28 11:57 | Physical Therapy Daily Note ---
PT Daily Note-Current Subjective Patient in wheelchair at bedside pre tx, agrees to PT, states he has very little pain. Appearance Patient in wheelchair at bedside post tx with nurse call, phone, tray, all needs met, nurse in room. Mental Status Patient Orientation: Person, Place, Situation Attachments: Oxygen wound vac Transfers Therapy Code Descriptions/Definitions Functional [place] Measure: 0=Not Assessed/NA 4=Minimal Assistance 1=Total Assistance 5=Supervision or Setup 2=Maximal Assistance 6=Modified [place] 3=Moderate Assistance 7=Complete [place] Therapy Quality Codes: 6 Independent with activity with or without an assistive device 5 Patient requires set up or clean up by helper. Patient completes activity by themselves 4 Supervision or touching assist (CGA). [place] provide cues , steadying assist 3 The helper provides less than half the effort to complete the activity 2 The helper provides more than half the effort to complete the activity 1 Dependent. The helper does all the effort to complete an activity 7 Patient refused to complete or attempt activity 9 The patient did not perform the activity before the current illness or injury 88 Not attempted due to Medical conditions or safety concerns Transfers (B, C, W/C) (FIM): 2 Sit to/from Stand: 2 Bed to/from Chair: 4 Patient needs max assist to stand from lower surfaces, cues for hand placement and positioning. Gait Training Gait (FIM): 1 Distance: 40', 20', 10' Gait Level of Assist: 4 Gait Persons Needed: 1 Gait Assistive Device: FWW CGA, slow, SOB, wide ANIBAL. Patient fatigues very quickly. Wheelchair Training Does the Pt Use a Wheelchair?: Yes Wheelchair (FIM): 2 Distance: 100' Wheelchair Level of Assist: 5 Type of Wheelchair: Manual very slow, needed several rest breaks Exercises Standing: Heel/toe raises, Mini squats Standing Reps: 15 LAQ alternating for 5 min Treatments LE exercise, transfers, wheelchair mobility, ambulation Assessment Current Status: Fair Progress Patient fatigues very quickly and gets SOB with activity. PT Short Term Goals Short Term Goals Time Frame: Jun 25, 2019 Transfers (B,C,W/C) (FIM): 3 Gait (FIM): 1 Gait Distance Comment: 5' Gait Level of Assist: 3 Gait Assistive Device: FWW Wheelchair Distance: 150 PT Residential Goals Residential Goals PT Sports Medicine Specialist Goals Time Frame: Jul 09, 2019 Transfers (B,C,W/C) (FIM): 4 Sit to Lying (QC): 4 Lying-Sitting on Side/Bed(QC): 4 Sit to Stand (QC): 3 Rollin (min A) Roll Left to Right (QC): 4 Chair/Uzn-pp-Dnbar Xfer(QC): 3 Car Transfer (QC): 3 Gait (FIM): 1 Distance: 20' Walk 10 feet (QC): 3 Walk 10ft-Uneven Surface(QC): 3 Gait Level of Assist: 4 Gait Assistive Device: FWW Wheelchair (FIM): 6 Distance: 150' Wheelchair Level of Assist: 5 Wheel 50 feet with 2 turns (QC: 4 PT Plan Problem List Problem List: Activity Tolerance, Functional Strength, Safety, Balance, Gait, Transfer, Bed Mobility, ROM Treatment/Plan Treatment Plan: Continue Plan of Care Treatment Plan: Bed Mobility, Concurrent Therapy, Education, Functional Activity Leo, Functional Strength, Group Therapy, Gait, Safety, Therapeutic Exercise, Transfers Treatment Duration: Jul 09, 2019 Frequency: At least 5 of 7 days/Wk (IRF) Estimated Hrs Per Day: 1.5 hours per day Patient and/or Family Agrees t: Yes Safety Risks/Education Patient Education: Gait Training, Transfer Techniques, Correct Positioning, W/C Management, Safety Issues Teaching Recipient: Patient Teaching Methods: Demonstration, Discussion Response to Teaching: Reinforcement Needed Time/GCodes Time In: 1100 Time Out: 1200 Total Billed Treatment Time: 60 Total Billed Treatment 1 visit [facility] 10' GT 30' EX 20' BRIDGETTE CAT PT Jun 28, 2019 11:57
[2019-06-28] MEDS ORDERED: FUROSEMIDE 40 MG (LASIX) TAB PO NR (14:30)
[2019-06-28] MEDS ORDERED: LIDOCAINE UROJET 2% GEL 10 ML PKG TOP PRN (14:30)
[2019-06-28] MEDS ORDERED: KCL 20 MEQ TAB (K-DUR) PO NR (14:30)
--- NOTE | 2019-06-28 14:45 | Therapy Group Daily Note ---
Therapy Daily Group Note Patient Education Topic Exercises Exercises LE Seated Exercise, UE Exercise Session Ratio (pt:therapist): 4:1 Goal of Session: UE/LE Strengthing Goal Met for this Session: Yes Pt Benefit of Group: Contributions to Others, F/U Use of Strategies @Home, Increased Functional Strength, Improved Cognition, Recognition of Peers, Socialization Other/Notes Pt transported via w/c to OT/PT group in [facility]. Group consisted of introductions (name, place living, first care driven), socialization, UE/LE seated exercises, education on modifying exercises at home and different ways of incorporating everyday items for wts. Pt introduced self appropriately and actively listened to peers. Pt acknowledged understanding of educational topics by leading own exercise and verbalizing strategies to modify at home. After therapy, pt lying in bed with call light/phone in reach. All needs met in room. Start Time: 13:00 Stop Time: 14:10 Total Billed Treatment Time: 70 Total Billed Treatment 1-GRP AMANDA WEINER Jun 28, 2019 14:45
[2019-06-28] MEDS: ROFLUMILAST 500 MCG TAB (DALIRESP) PO SCH (15:02)
[2019-06-28] MEDS: ENOXAPARIN 40 MG/0.4 ML (LOVENOX) SYR SC SCH (17:23)
--- NOTE | 2019-06-28 19:14 | NUR ---
BEDSIDE REPORT RECEIVED FROM EARNEST LOUIE, ASSUME CARE OF PT
[2019-06-28] MEDS: GABAPENTIN 600 MG (NEURONTIN) TAB PO SCH (20:48)
[2019-06-28] MEDS: QUEtiapine 25 MG (SEROquel) TAB IMMEDIATE RELEASE PO SCH (20:52)
--- NOTE | 2019-06-28 20:53 | NUR ---
C/O PAIN & ANXIETY LORTAB 5 1 TAB GIVEN & ATIVAN 0.25MG PO GIVEN, REPORTS PAIN IN BACK & FEET LEVEL 4/10 ON NUMERIC SCALE
--- NOTE | 2019-06-28 21:00 | NUR ---
ASSESSMENTS & INTERVENTIONS COMPLETED, PT UP & DOWN SITTING ON EDGE OF BED THEN LIES DOWN, REPOSITIONED Q 2HRS WITH ASSIST OF 2
--- NOTE | 2019-06-28 21:40 | NUR ---
RATES PAIN LEVEL 2/10 ON NUMERIC SCALE, FSBS 223 NOVOLOG 3 UNITS SQ GIVEN
[2019-06-29] MEDS: RT-ALBUTEROL/IPRATROPIUM 3 ML (DUONEB) VIAL INH SCH ×4 (03:28→21:38)
[2019-06-29 04:00] VITALS: BP 143/74
[2019-06-29] MEDS: inSUlin ASPART (NovoLOG) 1 UNIT/0.01 ML (CHARGE PER UNIT) SC SCH ×4 (06:00→21:00)
[2019-06-29 06:15] VITALS: BP 143/74
[2019-06-29] MEDS: PANTOPRAZOLE 40 MG (PROTONIX) TAB PO SCH (06:26)
[2019-06-29] MEDS: LACTOBACILLUS ACIDOPHILUS (PROBIOTIC) CAPSULE PO SCH ×4 (06:26→20:43)
[2019-06-29] MEDS: amLODIPine 10 MG (NORVASC) TAB PO SCH (06:26)
[2019-06-29] MEDS: SILDENAFIL 20 MG (REVATIO) TAB NON-FORMULARY PO SCH ×3 (06:26→22:00)
[2019-06-29] MEDS: MULTIVIT W/MINERALS TAB (THERAGRAN M) PO SCH (06:26)
[2019-06-29] MEDS: KCL 20 MEQ TAB (K-DUR) PO SCH (06:27)
[2019-06-29] MEDS: CATHETER FLUSH 10 ML SYR IV SCH ×3 (06:29→22:00)
--- NOTE | 2019-06-29 06:30 | NUR ---
pt refused jeffrey wraps due to neuropathy pain
--- NOTE | 2019-06-29 07:12 | NUR ---
bedside report given to EARNEST LOUIE
[2019-06-29 08:00] VITALS: BP 166/66
[2019-06-29] MEDS: THEOPHYLLINE ER 400 MG TAB (THEO-24) PO SCH (08:53)
[2019-06-29] MEDS: FUROSEMIDE 40 MG (LASIX) TAB PO SCH (08:53)
[2019-06-29] MEDS: meTOprolol TARTRATE 25 MG (LOPRESSOR) TABLET PO SCH ×2 (08:53→20:43)
[2019-06-29] MEDS: GABAPENTIN 300 MG (NEURONTIN) CAP PO SCH (08:53)
[2019-06-29] MEDS: BENZONATATE 100 MG (TESSALON) CAPSULE PO SCH ×2 (08:54→14:58)
[2019-06-29] MEDS: TAMSULOSIN 0.4 MG (FLOMAX) CAP PO SCH (08:54)
--- NOTE | 2019-06-29 08:58 | Physical Therapy Daily Note ---
PT Daily Note-Current Subjective Patient in bed pre tx, agrees to PT, has 3/10 pain. Patient needs dressed and he needs max assist for shorts. Appearance Patient in wheelchair post tx at bedside with nurse call, phone, tray, all needs met. Mental Status Patient Orientation: Person, Place, Situation Attachments: Oxygen, Alves Catheter wound vac Transfers Therapy Code Descriptions/Definitions Functional [place] Measure: 0=Not Assessed/NA 4=Minimal Assistance 1=Total Assistance 5=Supervision or Setup 2=Maximal Assistance 6=Modified [place] 3=Moderate Assistance 7=Complete [place] Therapy Quality Codes: 6 Independent with activity with or without an assistive device 5 Patient requires set up or clean up by helper. Patient completes activity by themselves 4 Supervision or touching assist (CGA). [place] provide cues , steadying assist 3 The helper provides less than half the effort to complete the activity 2 The helper provides more than half the effort to complete the activity 1 Dependent. The helper does all the effort to complete an activity 7 Patient refused to complete or attempt activity 9 The patient did not perform the activity before the current illness or injury 88 Not attempted due to Medical conditions or safety concerns Transfers (B, C, W/C) (FIM): 2 Scootin Rollin Supine to/from Sit: 2 Sit to/from Stand: 2 Bed to/from Chair: 4 Patient has more trouble leaning forward today when standing or sitting. Retropulsive immediately upon standing. Gait Training Gait (FIM): 1 Distance: 20'x2 Gait Level of Assist: 4 Gait Persons Needed: 1 Gait Assistive Device: FWW Worse ambulation, poor foot clearance, SOB, very difficult for patient. Wheelchair Training Does the Pt Use a Wheelchair?: Yes Wheelchair (FIM): 2 Distance: 50' Wheelchair Level of Assist: 5 Type of Wheelchair: Manual Exercises sit to stand from an elevated surface 2 sets of 5 Treatments bed mobility and transfers, ambulation, LE strengthening, WC mobility Assessment Current Status: Poor Progress worse ambulation and endurance, very SOB PT Short Term Goals Short Term Goals Time Frame: Jun 25, 2019 Transfers (B,C,W/C) (FIM): 3 Gait (FIM): 1 Gait Distance Comment: 5' Gait Level of Assist: 3 Gait Assistive Device: FWW Wheelchair Distance: 100' PT Special Education Teaching Assistant Goals Special Education Teaching Assistant Goals PT Senior Care Goals Time Frame: Jul 09, 2019 Transfers (B,C,W/C) (FIM): 4 Sit to Lying (QC): 4 Lying-Sitting on Side/Bed(QC): 4 Sit to Stand (QC): 3 Rollin (min A) Roll Left to Right (QC): 4 Chair/Qol-er-Owpru Xfer(QC): 3 Car Transfer (QC): 3 Gait (FIM): 1 Distance: 20' Walk 10 feet (QC): 3 Walk 10ft-Uneven Surface(QC): 3 Gait Level of Assist: 4 Gait Assistive Device: FWW Wheelchair (FIM): 6 Distance: 150' Wheelchair Level of Assist: 5 Wheel 50 feet with 2 turns (QC: 4 PT Plan Problem List Problem List: Activity Tolerance, Functional Strength, Safety, Balance, Gait, Transfer, Bed Mobility, ROM Treatment/Plan Treatment Plan: Continue Plan of Care Treatment Plan: Bed Mobility, Concurrent Therapy, Education, Functional Activ ity Leo, Functional Strength, Group Therapy, Gait, Safety, Therapeutic Exercise, Transfers Treatment Duration: Jul 09, 2019 Frequency: At least 5 of 7 days/Wk (IRF) Estimated Hrs Per Day: 1.5 hours per day Patient and/or Family Agrees t: Yes Safety Risks/Education Patient Education: Gait Training, Transfer Techniques, Correct Positioning, W/C Management, Safety Issues Teaching Recipient: Patient Teaching Methods: Demonstration, Discussion Response to Teaching: Reinforcement Needed Time/GCodes Time In: 0800 Time Out: 0900 Total Billed Treatment Time: 60 Total Billed Treatment 1 visit FA 30' EX 10' GT 20' BRIDGETTE CAT PT Jun 29, 2019 08:58
--- NOTE | 2019-06-29 09:04 | PM&R Progress Note ---
Subjective HPI/CC On Admission Date Seen by Provider: Jun 29, 2019 Time Seen by Provider: 08:30 CC: Critical illness debility HPI: This is a 68-year-old white male clinic patient of Dr. 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 Received report from Dr. Montesinos at [facility] in [place]. Patient was admitted there after difficulty weaning off the ventilator after he was intubated after failed noninvasive ventilator support after he was transferred from [facility] after his spinal surgery to [facility]. He remained on the ventilator for 3 weeks has some vocal cord dysfunction due to the long intubation status and most recently having urinary retention after Alves catheter was discontinued and currently has Klebsiella UTI maintained on Bactrim and Cipro double coverage because of such a significant organism. He had some significant hallucinations last week but that has been resolved. Patient currently remains on 2 L by nasal cannula of oxygen receives nebulizer treatments of DuoNeb every 6 hours and uses his home CPAP machine. His prior level of functioning was independent of ADLs and ambulation. I reviewed all of his current medications and vice president pharmacy here at the hospital has confirmed accuracy and all those have been continued. He does have a PICC line in his right upper arm. Upon review of the history and physical the following information was obtained: Past medical history: diabetes mellitus on oral therapy, obstructive sleep apnea, COPD with chronic respiratory failure, polycythemia due to chronic respiratory failure, tobacco use, chronic low back pain, peripheral neuropathy, PVD, CAD previous bypass surgery, thrombocytopenia, morbid obesity with hypoventilation syndrome, congestive heart failure with acute on chronic diastolic type with volume overload at admission to [facility], hyperlipidemia, hypertension, carpal tunnel syndrome, severe DJD of the right knee. He also has a history of SVT. Subjective/Events-last exam Venous stasis dermatitis of the lower extremities noted Buttocks look really good Psych eval will be ordered Alves catheter placed per urology I did speak with urology recommends urolift and because the prostate does not require a turp Picc line dysfunction will be addressed today Urine is clear Lasix and Potassium as he takes at home restarted Refusing vaurn wraps Still refuses BiPAP and CPAP Conferred with RN Reviewed therapy notes Check meds and labs Review of Systems General: Fatigue Pulmonary: Dyspnea Cardiovascular: Edema Musculoskeletal: back pain Objective Exam Vital Signs Vital Signs Date Time Temp Pulse Resp B/P (MAP) Pulse Ox O2 Delivery O2 Flow Rate FiO2 06/29/19 17:18 98.4 81 16 147/67 (93) 93 Nasal Cannula 3.00 Capillary Refill : Less Than 3 Seconds General Appearance: No Apparent Distress, WD/WN, Chronically ill, Obese HEENT: PERRL/EOMI, Normal ENT Inspection, Pharynx Normal, Moist Mucous Membranes Neck: Full Range of Motion, Normal Inspection, Non Tender, Supple Respiratory: Chest Non Tender, Lungs Clear, Normal Breath Sounds, No Accessory Muscle Use, No Respiratory Distress, Crackles (LLL subtle) Cardiovascular: Regular Rate, Rhythm, No Gallop, No JVD, No Murmur Gastrointestinal: Normal Bowel Sounds, No Organomegaly, No Pulsatile Mass, Non Tender, Soft Back: Normal Inspection, No CVA Tenderness, Decreased Range of Motion Extremity: Normal Capillary Refill, Normal Inspection, Normal Range of Motion, Non Tender, No Calf Tenderness, Pedal Edema Neurologic/Psychiatric: Alert, Oriented x3, No Motor/Sensory Deficits, jig filler II-XII Norm as Tested, Depressed Affect Skin: Normal Color, Warm/Dry, Other (venous stasis dermatitis) Lymphatic: No Adenopathy Results/Procedures Lab Patient resulted labs reviewed. FIM Transfers Therapy Code Descriptions/Definitions Functional [place] Measure: 0=Not Assessed/NA 4=Minimal Assistance 1=Total Assistance 5=Supervision or Setup 2=Maximal Assistance 6=Modified [place] 3=Moderate Assistance 7=Complete [place] Therapy Quality Codes: 6 Independent with activity with or without an assistive device 5 Patient requires set up or clean up by helper. Patient completes activity by themselves 4 Supervision or touching assist (CGA). [place] provide cues , steadying assist 3 The helper provides less than half the effort to complete the activity 2 The helper provides more than half the effort to complete the activity 1 Dependent. The helper does all the effort to complete an activity 7 Patient refused to complete or attempt activity 9 The patient did not perform the activity before the current illness or injury 88 Not attempted due to Medical conditions or safety concerns Transfers (B, C, W/C) (FIM): 2 Scootin Rollin Roll Left to Right (QC): 4 Supine to/from Sit: 2 Sit to/from Stand: 2 Sit to Lying (QC): 3 Sit to Stand (QC): 2 Chair/Zzc-qa-Zzqlz Xfer(QC): 2 Bed to/from Chair: 4 Car Transfer (QC): 2 Gait Training Does the Patient Walk?: Yes Gait (FIM): 1 Distance (FIM): 1=up to 49 ft Distance: 20'x2 Gait Level of Assist: 4 Gait Persons Needed: 1 Gait Assistive Device: FWW Wheelchair Training Does the Pt Use a Wheelchair?: Yes Wheelchair (FIM): 2 Wheelchair Distance: 1=431-87 ft (100ft) Distance: 50' Wheelchair Level of Assist: 5 Type of Wheelchair: Manual Mental Status/Objective Comprehension: 7 Expression: 7 Social Interaction: 7 Problem Solvin Memory: 7 ADL-Treatment Feedin (Pt able to feed self without assist) Eating (QC): 6 Groomin Oral Hygiene (QC): 6 Bathin Bathing Location: L Arm, R Arm, Chest, Abdomen Shower/Bathe Self (QC): 3 Upper Extremity Dressin Upper Body Dressing (QC): 5 Lower Extremity Dressin Lower Body Dressing (QC): 2 On/Off Footwear (QC): 2 Toiletin (Pt. was incontinent of bowel while in bed. OT removed depend in bed, and placed bed betts per pt. request, as he had to go quickly. After toileting, OT cleansed brandyn area at bed level.) Toileting Hygiene (QC): 1 Toilet/Commode Transfer: 2 Toilet Transfer (QC): 2 Shower: 0 Assessment/Plan Assessment and Plan Assess & Plan/Chief Complaint Assessment: (1) Myopathy (2) COPD (chronic obstructive pulmonary disease) (3) Respiratory failure, acute and chronic (4) Polycythemia (5) Tobacco use (6) Back pain (7) Neuropathy (8) PVD (peripheral vascular disease) (9) Hx of CABG (10) Obesity hypoventilation syndrome (11) Hypertension (12) Renal insufficiency (13) Hyperlipemia (14) Arthritis of right knee (15) Hx of supraventricular tachycardia (16) Obesity (17) Diabetes mellitus (18) SIDNEY on CPAP (19) CO2 narcosis (20) CAD (coronary artery disease) (21) Status post lumbar spine surgery for decompression of spinal cord (22) UTI Klebsiella s/p Bactrim and Cipro then DC when added Jorge and Vanc due to wound (23) Anxiety (24) Wound dehiscence requiring bedside debridement and placement of wound vac b y Dr Carrasco 06/19/19 (25) Diarrhea w/mild dehydration now resolving (26) edema Plan: Drs Malini, Anabelle, Rachel, Danilo are appreciated Abx changed to Jorge and Vanc for wound dehiscence and DC Cipro and Bactrim and wound vac maintained now abx regimen completed 06/27/19 Check labs prn IRF protocol Pain control Monitor closely Questran DC High risk for C diff IS use along with Nebs Continue progress of PT with ambulation Encourage use of CPAP Unsure how much recovery he will be able to obtain in IRF? Restart Lasix and potassium along with VARUN wraps but he refuses VARUN wraps (1) Myopathy (2) Postoperative wound dehiscence (3) Wound drainage (4) CO2 retention (5) Hyperkalemia (6) Renal failure (7) Elevated brain natriuretic peptide (BNP) level (8) Clot retention of urine (9) COPD (chronic obstructive pulmonary disease) (10) Polycythemia (11) Diabetes mellitus (12) Back pain (13) CAD (coronary artery disease) (14) Hyperlipemia (15) Neuropathy (16) Renal insufficiency (17) PVD (peripheral vascular disease) (18) Hypertension (19) Obesity (20) Respiratory failure, acute and chronic (21) Arthritis of right knee (22) Obesity hypoventilation syndrome (23) CO2 narcosis (24) SIDNEY on CPAP (25) Hx of supraventricular tachycardia (26) Decubitus ulcer (27) Urinary retention (28) BPH (benign prostatic hyperplasia) (29) UTI due to Klebsiella species (30) Hx of CABG (31) Status post lumbar spine surgery for decompression of spinal cord (32) Tobacco use JASPER LONG DO Jun 29, 2019 09:03
[2019-06-29] MEDS: DICLOFENAC 1% GEL 100 GM (VOLTAREN) TUBE TOP SCH ×4 (09:41→20:44)
[2019-06-29] MEDS: HYDROcodone/APAP 5 MG/325 MG (LORTAB) TAB PO PRN ×3 (10:01→20:50)
[2019-06-29] MEDS: LORazepam 0.5 MG (ATIVAN) TABLET PO PRN ×3 (10:02→20:43)
--- NOTE | 2019-06-29 11:09 | Progress Note - Urology ---
Progress Note-Urology Progress Notes/Assess & Plan Progress/Assessment & Plan CONSIDER UROLIFT AT A LATER DATE. WE WILL SEE PRN FOR NOW Final Diagnosis URINE RETENTION NOÉ BURNS MD Jun 29, 2019 11:09
--- NOTE | 2019-06-29 13:35 | Occupational Ther Daily Note ---
OT Current Status-Daily Note Subjective Pt sitting in chair, agrees to therapy. Pt reports 3/10 pain in left foot. Mental Status/Objective Therapy Code Descriptions/Definitions Functional [place] Measure: 0=Not Assessed/NA 4=Minimal Assistance 1=Total Assistance 5=Supervision or Setup 2=Maximal Assistance 6=Modified [place] 3=Moderate Assistance 7=Complete [place] Attachments: Oxygen, Other-See Comments (wound vac) ADL-Treatment Pt completed partial sponge bath while seated in w/c. Doffed shirt with SBA. Upper body bathing completed with SBA. Donned pullover shirt with SBA. Pt sit to stand with moderate assistance. Pt required assist to wash buttocks and pull pants up. W/c mobility to restroom with increased time. Grooming tasks completed seated at sink. Pt brushed teeth and combed hair with set up and increased time. Therapy Code Descriptions/Definitions Functional [place] Measure: 0=Not Assessed/NA 4=Minimal Assistance 1=Total Assistance 5=Supervision or Setup 2=Maximal Assistance 6=Modified [place] 3=Moderate Assistance 7=Complete [place] Therapy Quality Codes: 6 Independent with activity with or without an assistive device 5 Patient requires set up or clean up by helper. Patient completes activity by themselves 4 Supervision or touching assist (CGA). [place] provide cues , steadying assist 3 The helper provides less than half the effort to complete the activity 2 The helper provides more than half the effort to complete the activity 1 Dependent. The helper does all the effort to complete an activity 7 Patient refused to complete or attempt activity 9 The patient did not perform the activity before the current illness or injury 88 Not attempted due to Medical conditions or safety concerns Grooming (FIM): 5 Oral Hygiene (QC): 5 Upper Body (FIM): 5 Upper Body Dressing (QC): 4 Other Treatment Pt to therapy gym via w/c. Arm bike activity [id number] to increase strength and activity tolerance for functional tasks. Pt completed activity without resistance and with slow pace. One rest break taken during activity. Graded clothespins activity with bilateral hands to increase clinical account executive/pinch strength for ADLs. Pt completed task with increased time. Pt returned to room and requested to sit EOB. Sit to stand from w/c with max assist. Transfer to EOB with min assist with FWW. Pt then requested to sit in chair. Sit to stand with mod assist from raised bed. Transfer to chair with min assist with FWW. Pt positioned in chair with needs met after session. OT Short Term Goals Short Term Goals Time Frame: Jun 25, 2019 Grooming(FIM): 5 Bathing(FIM): 3 Lower Body Dressing(FIM): 3 Toileting(FIM): 3 Transfers (B,C,W/C) (FIM): 3 Toilet/Commode Transfer(FIM): 3 Additional Short Term Goals: 1-Demonstrate ADL Tasks, 2-Verbalize Understanding, 3-ImproveStrength/Leo 1=Demonstrate adherence to instructed precautions during ADL tasks. 2=Patient will verbalize/demonstrate understanding of assistive devices/ modifications for ADL. 3=Patient will improve strength/tolerance for activity to enable patient to perform ADL's. OT Skilled Nursing Goals Buoy Tender Goals Time Frame: Jul 09, 2019 Eating (FIM): 6 Eating (QC): 6 Groomin Oral Hygiene (QC): 6 Bathing(FIM): 5 Shower/Bathe Self (QC): 5 Upper Body Dressing(FIM): 6 Upper Body Dressing (QC): 6 Lower Body Dressing(FIM): 6 Lower Body Dressing (QC): 5 On/Off Footwear (QC): 5 Toileting(FIM): 6 Toileting Hygiene (QC): 6 Toilet/Commode Transfer(FIM): 6 Toilet/Commode Transfer (QC): 6 Shower Transfer(FIM): 5 Comprehension(FIM): 7 Expression (FIM): 7 Social Interaction(FIM): 7 Problem Solving(FIM): 7 Memory(FIM): 7 Additional Goals: 1-Demonstrate ADL Tasks, 2-Verbalize Understanding, 3- ImproveStrength/Leo 1=Demonstrate adherence to instructed precautions during ADL tasks. 2=Patient will verbalize/demonstrate understanding of assistive devices/modifications for ADL. 3=Patient will improve strength/tolerance for activity to enable patient to perform ADL's. OT Education/Plan Discharge Recommendations Plan/Recommendations: Continue POC Treatment Plan/Plan of Care Patient would benefit from OT for education, treatment and training to promote independence in ADL's, mobility, safety and/or upper extremity function for ADL's. Plan of Care: ADL Retraining, Functional Mobility, Group Exercise/Act as Ind, UE Funct Exercise/Act Treatment Duration: Jul 09, 2019 Frequency: At least 5 of 7 days/Wk (IRF) Estimated Hrs Per Day: 1.5 hours per day Agreement: Yes Rehab Potential: Fair Time/GCodes Start Time: 10:20 Stop Time: 11:50 Total Time Billed (hr/min): 90 Billed Treatment Time 1 visit, ADLx4(60minutes), EXx2(30minutes) FRED NEIL OT Jun 29, 2019 13:34
--- NOTE | 2019-06-29 14:56 | Physical Therapy Daily Note ---
PT Daily Note-Current Subjective Patient agrees to PT. Pain Numeric Pain Scale: 6 Location: Left Location Body Site: Calf Pain Description: Stabbing, Throbbing Mental Status Patient Orientation: Normal For Age Attachments: Oxygen, Alves Catheter wound vac on lower back Transfers Therapy Code Descriptions/Definitions Functional [place] Measure: 0=Not Assessed/NA 4=Minimal Assistance 1=Total Assistance 5=Supervision or Setup 2=Maximal Assistance 6=Modified [place] 3=Moderate Assistance 7=Complete [place] Therapy Quality Codes: 6 Independent with activity with or without an assistive device 5 Patient requires set up or clean up by helper. Patient completes activity by themselves 4 Supervision or touching assist (CGA). [place] provide cues , steadying assist 3 The helper provides less than half the effort to complete the activity 2 The helper provides more than half the effort to complete the activity 1 Dependent. The helper does all the effort to complete an activity 7 Patient refused to complete or attempt activity 9 The patient did not perform the activity before the current illness or injury 88 Not attempted due to Medical conditions or safety concerns Transfers (B, C, W/C) (FIM): 4 Scootin Sit to/from Stand: 4 (with use of lift chair initially and from low w/c with use of arm rests and verbal cueing for body placement.) Sit to Stand (QC): 4 Wheelchair Training Does the Pt Use a Wheelchair?: Yes Wheelchair (FIM): 4 Wheelchair Distance: 3=150 ft Distance: 150' Wheelchair Level of Assist: 4 Wheel 50 ft with 2 turns (QC): 4 Wheel 150 ft (QC): 4 Type of Wheelchair: Manual very slow with use of bilateral UE's and LE's Assessment Patient very fatigued on this date. He tolerated treatment and returned to recliner with needs met and family present. PT Short Term Goals Short Term Goals Time Frame: Jun 25, 2019 Transfers (B,C,W/C) (FIM): 3 Gait (FIM): 1 Gait Distance Comment: 5' Gait Level of Assist: 3 Gait Assistive Device: FWW Wheelchair Distance: 50' PT Human Resource Consultant Goals Long-Term Goals PT Long-Term Goals Time Frame: Jul 09, 2019 Transfers (B,C,W/C) (FIM): 4 Sit to Lying (QC): 4 Lying-Sitting on Side/Bed(QC): 4 Sit to Stand (QC): 3 Rollin Roll Left to Right (QC): 4 Chair/[id number]-[id number] Xfer(QC): 3 Car Transfer (QC): 3 Gait (FIM): 1 Distance: 20' Walk 10 feet (QC): 3 Walk 10ft-Uneven Surface(QC): 3 Gait Level of Assist: 4 Gait Assistive Device: FWW Wheelchair (FIM): 6 Distance: 150' Wheelchair Level of Assist: 5 Wheel 50 feet with 2 turns (QC: 4 PT Plan Treatment/Plan Treatment Plan: Continue Plan of Care Treatment Plan: Bed Mobility, Concurrent Therapy, Education, Functional Activity Leo, Functional Strength, Group Therapy, Gait, Safety, Therapeutic Exercise, Transfers Treatment Duration: Jul 09, 2019 Frequency: At least 5 of 7 days/Wk (IRF) Estimated Hrs Per Day: 1.5 hours per day Patient and/or Family Agrees t: Yes Time/GCodes Time In: 1415 Time Out: 1445 Total Billed Treatment Time: 30 Total Billed Treatment 1 visit FA 17 min [facility] 13 min OTIS BALDWIN PT Jun 29, 2019 14:56
[2019-06-29] MEDS: ROFLUMILAST 500 MCG TAB (DALIRESP) PO SCH (15:21)
--- NOTE | 2019-06-29 15:46 | NUR ---
Call to Behavioral Health, & notified that unable to find their note from visit. Also, that Dr. Law requested for B/H to re-consult pt re: anxiety/depression. Pt had episode of teariness, & frustration yesterday when told that we were going to be putting the polo catheter back in, per orders of Dr. Nayak, since pt had not been able to void, but only small amounts, & retention, & was requiring straight caths to empty bladder. Addendum: 06/29/19 at 1926 by DEMETRIUS RUIZ RN They stated that they will call back tomorrow w date & time they will be able to see pt.
[2019-06-29] MEDS: ENOXAPARIN 40 MG/0.4 ML (LOVENOX) SYR SC SCH (16:12)
--- NOTE | 2019-06-29 16:41 | NUR ---
Ativan po given as ordered. Pt restless, anxious. Turned director executive communications lt & asked to be turned to Rt side, this was done w A X2. Pt c/o that this wasn't working & wanted to sit on side of bed. This was done w Ax2. Pt anxious, c/o Lt foot pain, which he states is his chronic PVD pain that he's had for years. Pt reports that he is feeling better after sitting up on side of bed.
[2019-06-29] MEDS ORDERED: BENZONATATE 100 MG (TESSALON) CAPSULE PO PRN (16:45)
[2019-06-29 17:18] VITALS: BP 147/67
--- NOTE | 2019-06-29 19:27 | NUR ---
Pt refused offer to apply Allevyn patch to heels, as had done previously. Also refused the offer to apply heel protectors. Pt states, "they make it hurt worse."
[2019-06-29 20:36] VITALS: BP 154/68
[2019-06-29] MEDS: QUEtiapine 25 MG (SEROquel) TAB IMMEDIATE RELEASE PO SCH (20:44)
[2019-06-29] MEDS: GABAPENTIN 600 MG (NEURONTIN) TAB PO SCH (20:51)
[2019-06-30] MEDS: LORazepam 0.5 MG (ATIVAN) TABLET PO PRN ×2 (00:33→19:21)
[2019-06-30] MEDS: RT-ALBUTEROL/IPRATROPIUM 3 ML (DUONEB) VIAL INH SCH ×4 (03:17→20:12)
[2019-06-30 04:00] VITALS: BP 149/64
[2019-06-30] MEDS: MULTIVIT W/MINERALS TAB (THERAGRAN M) PO SCH (05:40)
[2019-06-30] MEDS: HYDROcodone/APAP 5 MG/325 MG (LORTAB) TAB PO PRN ×3 (05:40→22:00)
[2019-06-30] MEDS: KCL 20 MEQ TAB (K-DUR) PO SCH (05:40)
[2019-06-30] MEDS: amLODIPine 10 MG (NORVASC) TAB PO SCH (05:41)
[2019-06-30] MEDS: LACTOBACILLUS ACIDOPHILUS (PROBIOTIC) CAPSULE PO SCH ×4 (05:41→22:01)
[2019-06-30] MEDS: inSUlin ASPART (NovoLOG) 1 UNIT/0.01 ML (CHARGE PER UNIT) SC SCH ×4 (05:42→22:00)
[2019-06-30] MEDS: SILDENAFIL 20 MG (REVATIO) TAB NON-FORMULARY PO SCH ×3 (05:45→22:01)
[2019-06-30] MEDS: CATHETER FLUSH 10 ML SYR IV SCH ×3 (05:51→22:23)
[2019-06-30] MEDS: PANTOPRAZOLE 40 MG (PROTONIX) TAB PO SCH (05:52)
[2019-06-30 06:08] LABS: BASOPHILS % (AUTO) 1 % (0-10); EOSINOPHILS # (AUTO) 0.2 10^3/uL (0.0-0.3); EOSINOPHILS % (AUTO) 3 % (0-10); HEMATOCRIT 25 % (40-54); HEMOGLOBIN 7.6 G/DL (13.3-17.7); LYMPHOCYTES # (AUTO) 1.5 X 10^3 (1.0-4.0); LYMPHOCYTES % (AUTO) 25 % (12-44); MEAN CORPUSCULAR HEMOGLOBIN 28 PG (25-34); MEAN CORPUSCULAR HGB CONC 30 G/DL (32-36); MEAN CORPUSCULAR VOLUME 92 FL (80-99); MEAN PLATELET VOLUME 9.8 FL (7.4-10.4); MONOCYTES # (AUTO) 0.6 X 10^3 (0.0-1.0); MONOCYTES % (AUTO) 11 % (0-12); NEUTROPHILS # (AUTO) 3.7 X 10^3 (1.8-7.8); NEUTROPHILS % (AUTO) 61 % (42-75); PLATELET COUNT 273 10^3/uL (130-400); RED CELL DISTRIBUTION WIDTH 17.2 % (10.0-14.5)
[2019-06-30 06:31] LABS: ALANINE AMINOTRANSFERASE 23 U/L (0-55); ALBUMIN 3.1 GM/DL (3.2-4.5); ALKALINE PHOSPHATASE 131 U/L (40-136); BILIRUBIN,TOTAL 0.2 MG/DL (0.1-1.0); BUN/CREATININE RATIO 23; CALCIUM 9.3 MG/DL (8.5-10.1); CARBON DIOXIDE 27 MMOL/L (21-32); CHLORIDE 101 MMOL/L (98-107); GFR ESTIMATED > 60; GLUCOSE 155 MG/DL (70-105); POTASSIUM 4.3 MMOL/L (3.6-5.0); SODIUM 139 MMOL/L (135-145); TOTAL PROTEIN 6.6 GM/DL (6.4-8.2)
[2019-06-30 06:46] VITALS: BP 149/64
[2019-06-30 06:48] VITALS: BP 149/64
[2019-06-30 08:00] VITALS: BP 127/62
--- NOTE | 2019-06-30 08:00 | NUR ---
VITAL SIGNS CHANGED TO BID PER DR. LONG.
[2019-06-30] MEDS: FUROSEMIDE 40 MG (LASIX) TAB PO SCH (08:58)
[2019-06-30] MEDS: TAMSULOSIN 0.4 MG (FLOMAX) CAP PO SCH (08:58)
[2019-06-30] MEDS: THEOPHYLLINE ER 400 MG TAB (THEO-24) PO SCH (08:58)
[2019-06-30] MEDS: GABAPENTIN 300 MG (NEURONTIN) CAP PO SCH (08:58)
[2019-06-30] MEDS: meTOprolol TARTRATE 25 MG (LOPRESSOR) TABLET PO SCH ×2 (08:58→22:01)
--- NOTE | 2019-06-30 09:00 | Physical Therapy Daily Note ---
PT Daily Note-Current Subjective Patient in bed pre tx, agrees to PT reluctantly, says he didn't get any sleep, has no complaints of pain at rest. Appearance Patient in recliner post tx with nurse call, phone, tray, all needs met. Mental Status Patient Orientation: Person, Place, Situation Attachments: Oxygen, Alves Catheter wound vac Transfers Therapy Code Descriptions/Definitions Functional [place] Measure: 0=Not Assessed/NA 4=Minimal Assistance 1=Total Assistance 5=Supervision or Setup 2=Maximal Assistance 6=Modified [place] 3=Moderate Assistance 7=Complete [place] Therapy Quality Codes: 6 Independent with activity with or without an assistive device 5 Patient requires set up or clean up by helper. Patient completes activity by themselves 4 Supervision or touching assist (CGA). [place] provide cues , steadying assist 3 The helper provides less than half the effort to complete the activity 2 The helper provides more than half the effort to complete the activity 1 Dependent. The helper does all the effort to complete an activity 7 Patient refused to complete or attempt activity 9 The patient did not perform the activity before the current illness or injury 88 Not attempted due to Medical conditions or safety concerns Transfers (B, C, W/C) (FIM): 3 Scootin Rollin Supine to/from Sit: 3 Sit to/from Stand: 3 Bed to/from Chair: 4 cues for hand placement almost every time he stands and performs a transfer Gait Training Gait (FIM): 1 Distance: 20', 10'x2 Gait Level of Assist: 4 Gait Persons Needed: 1 Gait Assistive Device: FWW slow, left foot drop, poor foot clearance, short shuffling steps, Wheelchair Training Does the Pt Use a Wheelchair?: Yes Wheelchair (FIM): 2 Distance: 60' Wheelchair Level of Assist: 5 Type of Wheelchair: Manual Exercises LAQ alternating for 5 min, sit to stands from elevated surface 2 sets of 5 Treatments LE exercise, bed mobility, transfers, ambulation, wheelchair mobility Assessment Current Status: Poor Progress Patient seems to bed declining with endurance and ambulation, poor trunk strength, strains a lot with every movement PT Short Term Goals Short Term Goals Time Frame: Jun 25, 2019 Transfers (B,C,W/C) (FIM): 3 Gait (FIM): 1 Gait Distance Comment: 5' Gait Level of Assist: 3 Gait Assistive Device: FWW Wheelchair Distance: 150' PT Fci Goals Fci Goals PT Fci Goals Time Frame: Jul 09, 2019 Transfers (B,C,W/C) (FIM): 4 Sit to Lying (QC): 4 Lying-Sitting on Side/Bed(QC): 4 Sit to Stand (QC): 3 Rollin Roll Left to Right (QC): 4 Chair/Wqr-ta-Aatrt Xfer(QC): 3 Car Transfer (QC): 3 Gait (FIM): 1 Distance: 20' Walk 10 feet (QC): 3 Walk 10ft-Uneven Surface(QC): 3 Gait Level of Assist: 4 Gait Assistive Device: FWW Wheelchair (FIM): 6 Distance: 150' Wheelchair Level of Assist: 5 Wheel 50 feet with 2 turns (QC: 4 PT Plan Problem List Problem List: Activity Tolerance, Functional Strength, Safety, Balance, Gait, Transfer, Bed Mobility, ROM Treatment/Plan Treatment Plan: Continue Plan of Care Treatment Plan: Bed Mobility, Concurrent Therapy, Education, Functional Activity Leo, Functional Strength, Group Therapy, Gait, Safety, Therapeutic Exercise, Transfers Treatment Duration: Jul 09, 2019 Frequency: At least 5 of 7 days/Wk (IRF) Estimated Hrs Per Day: 1.5 hours per day Patient and/or Family Agrees t: Yes Safety Risks/Education Patient Education: Gait Training, Transfer Techniques, Correct Positioning, W/C Management, Safety Issues Teaching Recipient: Patient Teaching Methods: Demonstration, Discussion Response to Teaching: Reinforcement Needed Time/GCodes Time In: 0800 Time Out: 0900 Total Billed Treatment Time: 60 Total Billed Treatment 1 visit [facility] 10' GT 20' FA 20' EX 10' BRIDGETTE CAT PT Jun 30, 2019 09:00
[2019-06-30] MEDS: DICLOFENAC 1% GEL 100 GM (VOLTAREN) TUBE TOP SCH ×4 (09:01→22:03)
--- NOTE | 2019-06-30 09:05 | PM&R Progress Note ---
Subjective HPI/CC On Admission Date Seen by Provider: Jun 30, 2019 Time Seen by Provider: 08:30 CC: Critical illness debility HPI: This is a 68-year-old white male clinic patient of Dr. 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 Received report from Dr. Montesinos at [facility] in [place]. Patient was admitted there after difficulty weaning off the ventilator after he was intubated after failed noninvasive ventilator support after he was transferred from [facility] after his spinal surgery to [facility]. He remained on the ventilator for 3 weeks has some vocal cord dysfunction due to the long intubation status and most recently having urinary retention after Alves catheter was discontinued and currently has Klebsiella UTI maintained on Bactrim and Cipro double coverage because of such a significant organism. He had some significant hallucinations last week but that has been resolved. Patient currently remains on 2 L by nasal cannula of oxygen receives nebulizer treatments of DuoNeb every 6 hours and uses his home CPAP machine. His prior level of functioning was independent of ADLs and ambulation. I reviewed all of his current medications and pharmacy helper here at the hospital has confirmed accuracy and all those have been continued. He does have a PICC line in his right upper arm. Upon review of the history and physical the following information was obtained: Past medical history: diabetes mellitus on oral therapy, obstructive sleep apnea, COPD with chronic respiratory failure, polycythemia due to chronic respiratory failure, tobacco use, chronic low back pain, peripheral neuropathy, PVD, CAD previous bypass surgery, thrombocytopenia, morbid obesity with hypoventilation syndrome, congestive heart failure with acute on chronic diastolic type with volume overload at admission to [facility], hyperlipidemia, hypertension, carpal tunnel syndrome, severe DJD of the right knee. He also has a history of SVT. Subjective/Events-last exam Behavioral health will evaluate him today at 10:15 Severe depression appears to be an issue Hemoglobin remains at 7.6 It appears he is failing at times so unsure what the next step will be we will discuss in team meeting Pt overall doing well able to eat and drink but bowels haven't moved in two days so we will issue regimen for that I did speak to Dr. Carrasco about his case Refusing varun wraps Still refuses BiPAP and CPAP Conferred with RN Reviewed therapy notes Check meds and labs Review of Systems General: Fatigue Pulmonary: Dyspnea Musculoskeletal: back pain Objective Exam Vital Signs Vital Signs Date Time Temp Pulse Resp B/P (MAP) Pulse Ox O2 Delivery O2 Flow Rate FiO2 06/30/19 20:12 88 Nasal Cannula 2.00 06/30/19 17:57 99.0 88 18 148/56 (86) Capillary Refill : Less Than 3 SecondsLess Than 3 Seconds General Appearance: No Apparent Distress, WD/WN, Chronically ill, Obese HEENT: PERRL/EOMI, Normal ENT Inspection, Pharynx Normal, Moist Mucous Membranes Neck: Full Range of Motion, Normal Inspection, Non Tender, Supple Respiratory: Chest Non Tender, Lungs Clear, Normal Breath Sounds, No Accessory Muscle Use, No Respiratory Distress, Crackles (LLL subtle) Cardiovascular: Regular Rate, Rhythm, No Gallop, No JVD, No Murmur Gastrointestinal: Normal Bowel Sounds, No Organomegaly, No Pulsatile Mass, Non Tender, Soft Back: Normal Inspection, No CVA Tenderness, Decreased Range of Motion Extremity: Normal Capillary Refill, Normal Inspection, Normal Range of Motion, Non Tender, No Calf Tenderness, Pedal Edema Neurologic/Psychiatric: Alert, Oriented x3, No Motor/Sensory Deficits, corrugator operator II- XII Norm as Tested, Depressed Affect Skin: Normal Color, Warm/Dry, Other (venous stasis dermatitis) Lymphatic: No Adenopathy Results/Procedures Lab Laboratory Tests 06/30/19 05:50 Patient resulted labs reviewed. FIM Transfers Therapy Code Descriptions/Definitions Functional [place] Measure: 0=Not Assessed/NA 4=Minimal Assistance 1=Total Assistance 5=Supervision or Setup 2=Maximal Assistance 6=Modified [place] 3=Moderate Assistance 7=Complete [place] Therapy Quality Codes: 6 Independent with activity with or without an assistive device 5 Patient requires set up or clean up by helper. Patient completes activity by themselves 4 Supervision or touching assist (CGA). [place] provide cues , steadying assist 3 The helper provides less than half the effort to complete the activity 2 The helper provides more than half the effort to complete the activity 1 Dependent. The helper does all the effort to complete an activity 7 Patient refused to complete or attempt activity 9 The patient did not perform the activity before the current illness or injury 88 Not attempted due to Medical conditions or safety concerns Transfers (B, C, W/C) (FIM): 3 Scootin Rollin Roll Left to Right (QC): 4 Supine to/from Sit: 3 Sit to/from Stand: 3 Sit to Lying (QC): 3 Sit to Stand (QC): 4 Chair/Gxz-bo-Slxsz Xfer(QC): 2 Bed to/from Chair: 4 Car Transfer (QC): 2 Gait Training Does the Patient Walk?: Yes Gait (FIM): 1 Distance (FIM): 1=up to 49 ft Distance: 20', 10'x2 Gait Level of Assist: 4 Gait Persons Needed: 1 Gait Assistive Device: FWW Wheelchair Training Does the Pt Use a Wheelchair?: Yes Wheelchair (FIM): 2 Wheelchair Distance: 3=150 ft Distance: 60' Wheelchair Level of Assist: 5 Wheel 50 ft with 2 turns (QC): 4 Wheel 150 ft (QC): 4 Type of Wheelchair: Manual Mental Status/Objective Comprehension: 7 Expression: 7 Social Interaction: 7 Problem Solvin Memory: 7 ADL-Treatment Feedin (Pt able to feed self without assist) Eating (QC): 6 Groomin Oral Hygiene (QC): 5 Bathin Bathing Location: L Arm, R Arm, Chest, Abdomen Shower/Bathe Self (QC): 3 Upper Extremity Dressin Upper Body Dressing (QC): 4 Lower Extremity Dressin Lower Body Dressing (QC): 2 On/Off Footwear (QC): 2 Toiletin (Pt. was incontinent of bowel while in bed. OT removed depend in bed, and placed bed betts per pt. request, as he had to go quickly. After toileting, OT cleansed brandyn area at bed level.) Toileting Hygiene (QC): 1 Toilet/Commode Transfer: 2 Toilet Transfer (QC): 2 Shower: 0 Assessment/Plan Assessment and Plan Assess & Plan/Chief Complaint Assessment: (1) Myopathy (2) COPD (chronic obstructive pulmonary disease) (3) Respiratory failure, acute and chronic (4) Polycythemia (5) Tobacco use (6) Back pain (7) Neuropathy (8) PVD (peripheral vascular disease) (9) Hx of CABG (10) Obesity hypoventilation syndrome (11) Hypertension (12) Renal insufficiency (13) Hyperlipemia (14) Arthritis of right knee (15) Hx of supraventricular tachycardia (16) Obesity (17) Diabetes mellitus (18) SIDNEY on CPAP (19) CO2 narcosis (20) CAD (coronary artery disease) (21) Status post lumbar spine surgery for decompression of spinal cord (22) UTI Klebsiella s/p Bactrim and Cipro then DC when added Jorge and Vanc due to wound (23) Anxiety (24) Wound dehiscence requiring bedside debridement and placement of wound vac by Dr Carrasco 06/19/19 (25) Diarrhea w/mild dehydration now resolving (26) edema Plan: Drs Malini, Anabelle, Rachel, Danilo are appreciated Abx changed to Jorge and Vanc for wound dehiscence and DC Cipro and Bactrim and wound vac maintained now abx regimen completed 06/27/19 Check labs prn IRF protocol Pain control Monitor closely Questran DC High risk for C diff IS use along with Nebs Continue progress of PT with ambulation Encourage use of CPAP Unsure how much recovery he will be able to obtain in IRF? Restart Lasix and potassium along with VARUN wraps but he refuses VARUN wraps Psych consult (1) Myopathy (2) Postoperative wound dehiscence (3) Wound drainage (4) CO2 retention (5) Hyperkalemia (6) Renal failure (7) Elevated brain natriuretic peptide (BNP) level (8) Clot retention of urine (9) COPD (chronic obstructive pulmonary disease) (10) Polycythemia (11) Diabetes mellitus (12) Back pain (13) CAD (coronary artery disease) (14) Hyperlipemia (15) Neuropathy (16) Renal insufficiency (17) PVD (peripheral vascular disease) (18) Hypertension (19) Obesity (20) Respiratory failure, acute and chronic (21) Arthritis of right knee (22) Obesity hypoventilation syndrome (23) CO2 narcosis (24) SIDNEY on CPAP (25) Hx of supraventricular tachycardia (26) Decubitus ulcer (27) Urinary retention (28) BPH (benign prostatic hyperplasia) (29) UTI due to Klebsiella species (30) Hx of CABG (31) Status post lumbar spine surgery for decompression of spinal cord (32) Tobacco use JASPER LONG DO Jun 30, 2019 09:04
--- NOTE | 2019-06-30 10:00 | NUR ---
BEHAVIORAL HEALTH HERE TO SEE PATIENT.
--- NOTE | 2019-06-30 10:58 | NUR ---
0900 SVN NOT GIVEN. RT BUSY IN ER, THEN WHEN PATIENT DID ARRIVE TO THE ROOM PATIENT UNAVAILABLE BUSY WITH PT/OT
--- NOTE | 2019-06-30 11:00 | NUR ---
PATIENT STATES IS CLAUSTROPHOBIC AND THAT IS WHY HE GETS UP AND DOWN TO THE CHAIR SO OFTEN. WANTS TO GO OUTSIDE, "BUT DOESN'T WANT TO BOTHER THERAPY BY TELLING THEM". THERAPY WAS NOTIFIED OF HIS WISH. DENIES DEPRESSION. "JUST MAD ABOUT BEING SICK".
--- NOTE | 2019-06-30 12:00 | NUR ---
DR. PEREIRA INFORMED THAT WOUND VAC STILL HAS A LARGE AMOUNT OF YELLOW DRAINAGE. HE STATES THIS IS WHAT HE WOULD EXPECT.
--- NOTE | 2019-06-30 12:03 | Occupational Ther Daily Note ---
OT Current Status-Daily Note Subjective Pt sitting in chair, agrees to therapy. Pt reports 3/10 pain in left foot. States he did not sleep well and is tired today. Mental Status/Objective Therapy Code Descriptions/Definitions Functional [place] Measure: 0=Not Assessed/NA 4=Minimal Assistance 1=Total Assistance 5=Supervision or Setup 2=Maximal Assistance 6=Modified [place] 3=Moderate Assistance 7=Complete [place] Attachments: Alves Catheter, Oxygen, Other-See Comments (wound vac) ADL-Treatment Pt completed sponge bath while seated in chair. Doff shirt with SBA. Pt stood with mod assist to pull pants down. Used dressing stick to doff over feet. Pt bathed upper body with SBA. Pt able to wash bilateral upper legs and brandyn area. Used long handled sponge to wash lower legs and feet. Assist to wash buttocks. Don pullover shirt with SBA. Assist required to thread catheter through Dep[place] and shorts. Used mine production engineer to thread LE into shorts. Max assist to stand complete pant hike. Pt fatigues quickly with standing and requires seated rest break. Grooming tasks completed seated in chair with set up. Increased time required for ADL tasks. Therapy Code Descriptions/Definitions Functional [place] Measure: 0=Not Assessed/NA 4=Minimal Assistance 1=Total Assistance 5=Supervision or Setup 2=Maximal Assistance 6=Modified [place] 3=Moderate Assistance 7=Complete [place] Therapy Quality Codes: 6 Independent with activity with or without an assistive device 5 Patient requires set up or clean up by helper. Patient completes activity by themselves 4 Supervision or touching assist (CGA). [place] provide cues , steadying assist 3 The helper provides less than half the effort to complete the activity 2 The helper provides more than half the effort to complete the activity 1 Dependent. The helper does all the effort to complete an activity 7 Patient refused to complete or attempt activity 9 The patient did not perform the activity before the current illness or injury 88 Not attempted due to Medical conditions or safety concerns Grooming (FIM): 5 Oral Hygiene (QC): 5 Bathing (FIM): 4 Shower/Bathe Self (QC): 3 Upper Body (FIM): 5 Upper Body Dressing (QC): 4 Lower Body Dressing (FIM): 2 Lower Body Dressing (QC): 2 Other Treatment Pt to therapy gym via w/c. Pt completed fine motor task with nuts and bolts using bilateral UE to increase coordination/manipulation skills and UE activity tolerance. Pt able to complete without assist, but requires increased time. Pt completed putty activity with bilateral hands to increase strength and coordination. Pt able to remove small beads from minimal resistance putty with increased time. Pt returned to room. Sit to stand from w/c with max assist. Transfer to w/c with min assist using FWW, cues for safety. Pt sitting in chair with needs met after session. OT Short Term Goals Short Term Goals Time Frame: Jun 25, 2019 Grooming(FIM): 5 Bathing(FIM): 3 Lower Body Dressing(FIM): 3 Toileting(FIM): 3 Transfers (B,C,W/C) (FIM): 3 Toilet/Commode Transfer(FIM): 3 Additional Short Term Goals: 1-Demonstrate ADL Tasks, 2-Verbalize Understanding, 3-ImproveStrength/Leo 1=Demonstrate adherence to instructed precautions during ADL tasks. 2=Patient will verbalize/demonstrate understanding of assistive devices/modifications for ADL. 3=Patient will improve strength/tolerance for activity to enable patient to perform ADL's. OT Fdc Goals Fdc Goals Time Frame: Jul 09, 2019 Eating (FIM): 6 Eating (QC): 6 Groomin Oral Hygiene (QC): 6 Bathing(FIM): 5 Shower/Bathe Self (QC): 5 Upper Body Dressing(FIM): 6 Upper Body Dressing (QC): 6 Lower Body Dressing(FIM): 6 Lower Body Dressing (QC): 5 On/Off Footwear (QC): 5 Toileting(FIM): 6 Toileting Hygiene (QC): 6 Toilet/Commode Transfer(FIM): 6 Toilet/Commode Transfer (QC): 6 Shower Transfer(FIM): 5 Comprehension(FIM): 7 Expression (FIM): 7 Social Interaction(FIM): 7 Problem Solving(FIM): 7 Memory(FIM): 7 Additional Goals: 1-Demonstrate ADL Tasks, 2-Verbalize Understanding, 3- ImproveStrength/Leo 1=Demonstrate adherence to instructed precautions during ADL tasks. 2=Patient will verbalize/demonstrate understanding of assistive devices/modifications for ADL. 3=Patient will improve strength/tolerance for activity to enable patient to perform ADL's. OT Education/Plan Discharge Recommendations Plan/Recommendations: Continue POC Treatment Plan/Plan of Care Patient would benefit from OT for education, treatment and training to promote independence in ADL's, mobility, safety and/or upper extremity function for ADL's. Plan of Care: ADL Retraining, Functional Mobility, Group Exercise/Act as Ind, UE Funct Exercise/Act Treatment Duration: Jul 09, 2019 Frequency: At least 5 of 7 days/Wk (IRF) Estimated Hrs Per Day: 1.5 hours per day Agreement: Yes Rehab Potential: Fair Time/GCodes Start Time: 10:30 Stop Time: 12:00 Total Time Billed (hr/min): 90 Billed Treatment Time 1 visit, ADLx4(55minutes), EXx2(35minutes) FRED NEIL OT Jun 30, 2019 12:03
[2019-06-30] MEDS: ROFLUMILAST 500 MCG TAB (DALIRESP) PO SCH (14:43)
--- NOTE | 2019-06-30 14:49 | Pulmonary Progress Note ---
Subjective Date Seen by a Provider: Jun 29, 2019 (Late note) Time Seen by a Provider: 14:49 Sepsis Event Evaluation Height, Weight, BMI Height: 5'10.00" Weight: 266lbs. 3.2oz. 120.091361jf; 38.0 BMI Method:Stated Exam Exam Vital Signs Date Time Temp Pulse Resp B/P (MAP) Pulse Ox O2 Delivery O2 Flow Rate FiO2 06/30/19 09:00 Nasal Cannula 2.00 06/30/19 08:00 98.7 85 22 127/62 (83) 93 Nasal Cannula 3.00 06/30/19 06:48 98.1 79 21 149/64 (92) 93 Nasal Cannula 3.00 06/30/19 06:46 98.1 79 21 149/64 (92) 93 Nasal Cannula 3.00 06/30/19 04:00 98.1 79 21 149/64 (92) 93 Nasal Cannula 3.00 06/30/19 03:17 92 Nasal Cannula 3.00 06/30/19 00:00 98.2 06/29/19 21:38 93 Nasal Cannula 3.00 06/29/19 20:36 98.0 85 16 154/68 (96) 95 Nasal Cannula 3.00 06/29/19 20:00 93 Nasal Cannula 3.00 06/29/19 17:18 98.4 81 16 147/67 (93) 93 Nasal Cannula 3.00 06/29/19 15:45 93 Nasal Cannula 3.00 I & O 06/30/19 07:00 Intake Total 1580 ml Output Total 2600 ml Balance -1020 ml Height & Weight Height: 5'10.00" Weight: 266lbs. 3.2oz. 120.518498mp; 38.0 BMI Method:Stated General Appearance: No Apparent Distress, WD/WN HEENT: PERRL/EOMI, Pharynx Normal Neck: Full Range of Motion, Non Tender, Supple Respiratory: Chest Non Tender, No Accessory Muscle Use, No Respiratory Distress Cardiovascular: Regular Rate, Rhythm, No Edema, No Gallop Capillary Refill: Less Than 3 Seconds Gastrointestinal: normal bowel sounds, non tender, soft Extremity: Normal Capillary Refill, Normal Inspection, No Pedal Edema Neurologic/Psychiatric: Alert, Oriented x3 Skin: Normal Color, Warm/Dry Lymphatic: No Adenopathy Results Lab Laboratory Tests 06/30/19 05:50 Assessment/Plan Assessment/Plan Hypoxia probably secondary to COPD -Monitor Dehiscence of lumbar surgical wound -Wound care following -Wound vac -surgery following Morbid obesity with OHS -Home CPAP machine Anemia -Monitor DM Tobacco use Debility ANIYA DUDLEY DO Jun 30, 2019 14:49
--- NOTE | 2019-06-30 14:50 | Pulmonary Progress Note ---
Subjective Time Seen by a Provider: 11:45 Sepsis Event Evaluation Height, Weight, BMI Height: 5'10.00" Weight: 266lbs. 3.2oz. 120.502114pc; 38.0 BMI Method:Stated Exam Exam Vital Signs Date Time Temp Pulse Resp B/P (MAP) Pulse Ox O2 Delivery O2 Flow Rate FiO2 06/30/19 09:00 Nasal Cannula 2.00 06/30/19 08:00 98.7 85 22 127/62 (83) 93 Nasal Cannula 3.00 06/30/19 06:48 98.1 79 21 149/64 (92) 93 Nasal Cannula 3.00 06/30/19 06:46 98.1 79 21 149/64 (92) 93 Nasal Cannula 3.00 06/30/19 04:00 98.1 79 21 149/64 (92) 93 Nasal Cannula 3.00 06/30/19 03:17 92 Nasal Cannula 3.00 06/30/19 00:00 98.2 06/29/19 21:38 93 Nasal Cannula 3.00 06/29/19 20:36 98.0 85 16 154/68 (96) 95 Nasal Cannula 3.00 06/29/19 20:00 93 Nasal Cannula 3.00 06/29/19 17:18 98.4 81 16 147/67 (93) 93 Nasal Cannula 3.00 06/29/19 15:45 93 Nasal Cannula 3.00 I & O 06/30/19 07:00 Intake Total 1580 ml Output Total 2600 ml Balance -1020 ml Height & Weight Height: 5'10.00" Weight: 266lbs. 3.2oz. 120.805940wn; 38.0 BMI Method:Stated General Appearance: No Apparent Distress, WD/WN HEENT: PERRL/EOMI, Normal ENT Inspection, Pharynx Normal Neck: Full Range of Motion, Non Tender, Supple Respiratory: Chest Non Tender, No Accessory Muscle Use, No Respiratory Distress, Decreased Breath Sounds Cardiovascular: Regular Rate, Rhythm Capillary Refill: Less Than 3 Seconds Gastrointestinal: normal bowel sounds, non tender, soft Extremity: Normal Capillary Refill, Normal Inspection Results Lab Laboratory Tests 06/30/19 05:50 Assessment/Plan Assessment/Plan Hypoxia probably secondary to COPD -Monitor Dehiscence of lumbar surgical wound -Wound care following -Wound vac -surgery following Morbid obesity with OHS -Home CPAP machine Anemia -Monitor DM Tobacco use Debility ANIYA DUDLEY DO Jun 30, 2019 14:50
--- NOTE | 2019-06-30 14:54 | Physical Therapy Daily Note ---
PT Daily Note-Current Subjective Pt. in bed after wound care. Pt. states he has had much more difficulty moving and walking as of late Transfers Therapy Code Descriptions/Definitions Functional [place] Measure: 0=Not Assessed/NA 4=Minimal Assistance 1=Total Assistance 5=Supervision or Setup 2=Maximal Assistance 6=Modified [place] 3=Moderate Assistance 7=Complete [place] Therapy Quality Codes: 6 Independent with activity with or without an assistive device 5 Patient requires set up or clean up by helper. Patient completes activity by themselves 4 Supervision or touching assist (CGA). [place] provide cues , steadying assist 3 The helper provides less than half the effort to complete the activity 2 The helper provides more than half the effort to complete the activity 1 Dependent. The helper does all the effort to complete an activity 7 Patient refused to complete or attempt activity 9 The patient did not perform the activity before the current illness or injury 88 Not attempted due to Medical conditions or safety concerns rolling in bed CGA, scooting up in bed with bed layed flat using top rails and instruction to bend legs and push up CGA Exercises Supine Ex: Bridging (min lift, ), Ankle pumps, Quad Set, Rolling, Glut sets, Heel Slides, Short Arc Quads, Scooting, Straight leg raise, Hip abd/add Supine Reps: 20 Assessment Current Status: Fair Progress PT Short Term Goals Short Term Goals Time Frame: Jun 25, 2019 Transfers (B,C,W/C) (FIM): 3 Gait (FIM): 1 Gait Distance Comment: 5' Gait Level of Assist: 3 Gait Assistive Device: FWW Wheelchair Distance: 60' PT Wireless Team Member Goals Wireless Team Member Goals PT Wireless Team Member Goals Time Frame: Jul 09, 2019 Transfers (B,C,W/C) (FIM): 4 Sit to Lying (QC): 4 Lying-Sitting on Side/Bed(QC): 4 Sit to Stand (QC): 3 Rollin Roll Left to Right (QC): 4 Chair/Phj-ze-Qgdvq Xfer(QC): 3 Car Transfer (QC): 3 Gait (FIM): 1 Distance: 20' Walk 10 feet (QC): 3 Walk 10ft-Uneven Surface(QC): 3 Gait Level of Assist: 4 Gait Assistive Device: FWW Wheelchair (FIM): 6 Distance: 150' Wheelchair Level of Assist: 5 Wheel 50 feet with 2 turns (QC: 4 PT Plan Treatment/Plan Treatment Plan: Continue Plan of Care Treatment Plan: Bed Mobility, Concurrent Therapy, Education, Functional Activity Leo, Functional Strength, Group Therapy, Gait, Safety, Therapeutic Exercise, Transfers Treatment Duration: Jul 09, 2019 Frequency: At least 5 of 7 days/Wk (IRF) Estimated Hrs Per Day: 1.5 hours per day Patient and/or Family Agrees t: Yes Safety Risks/Education Response to Teaching: Reinforcement Needed Time/GCodes Time In: 1425 Time Out: 1455 Total Billed Treatment Time: 30 Total Billed Treatment 1,FA10m,EX20m G Codes Necessary: REGIS Mancera FIREBOAT OPERATOR Jun 30, 2019 14:54
[2019-06-30] MEDS ORDERED: RT-ALBUTEROL/IPRATROPIUM 3 ML (DUONEB) VIAL INH PRN (16:30)
[2019-06-30] MEDS: ENOXAPARIN 40 MG/0.4 ML (LOVENOX) SYR SC SCH (17:34)
--- NOTE | 2019-06-30 17:40 | NUR ---
MINE CAPTAIN met with patient and patient's daughter to review team conference summary. As patient continues to have drainage from back incisional site, requiring wound VAC, urinary retention, requires mod assist for transfers, ambulating only short distances, requires standby assist for wheelchair mobility, max assist for lower body dressing and mod to max assist for standing team is recommended patient be reevaluated at next team conference on 87. Patient and daughter are agreeable to this; however, do inquire about further steps needed in regards to progress and discharge planning. Patient's daughter expresses concerns regarding progress plateauing, increased lower extremity edema and pain. MINE CAPTAIN did discuss the need for discharge arrangements to be made if patient's progress remains unchanged, but team is hopeful that additional progress can be made. MINE CAPTAIN did discuss the potential need for a ramp at patients home, additional equipment and frequent caregiving support if patient is not functionally able to progress. Patient's daughter expressed understanding. Patient and daughter are agreeable for team to reevaluate at next team conference.
[2019-06-30 17:57] VITALS: BP 148/56
[2019-06-30] MEDS: QUEtiapine 25 MG (SEROquel) TAB IMMEDIATE RELEASE PO SCH (22:01)
[2019-06-30] MEDS: GABAPENTIN 600 MG (NEURONTIN) TAB PO SCH (22:01)
[2019-07-01] MEDS: inSUlin ASPART (NovoLOG) 1 UNIT/0.01 ML (CHARGE PER UNIT) SC SCH ×4 (05:35→21:17)
[2019-07-01 05:40] VITALS: BP 138/55
[2019-07-01] MEDS: LACTOBACILLUS ACIDOPHILUS (PROBIOTIC) CAPSULE PO SCH ×4 (06:49→21:17)
[2019-07-01] MEDS: amLODIPine 10 MG (NORVASC) TAB PO SCH (06:49)
[2019-07-01] MEDS: SILDENAFIL 20 MG (REVATIO) TAB NON-FORMULARY PO SCH ×3 (06:49→21:18)
[2019-07-01] MEDS: CATHETER FLUSH 10 ML SYR IV SCH ×3 (06:49→21:20)
[2019-07-01] MEDS: MULTIVIT W/MINERALS TAB (THERAGRAN M) PO SCH (06:50)
[2019-07-01] MEDS: KCL 20 MEQ TAB (K-DUR) PO SCH (06:50)
[2019-07-01] MEDS: PANTOPRAZOLE 40 MG (PROTONIX) TAB PO SCH (06:50)
[2019-07-01 08:00] VITALS: BP 117/68
--- NOTE | 2019-07-01 08:00 | NUR ---
STATES STILL DISAPPOINTED THAT IS NOT WALKING BETTER. LESS DRAINAGE THIS AM PER WOUND VAC - STILL YELLOW DRAINAGE.
--- NOTE | 2019-07-01 09:14 | PM&R Progress Note ---
Subjective HPI/CC On Admission Date Seen by Provider: Jul 01, 2019 Time Seen by Provider: 08:45 CC: Critical illness debility HPI: This is a 68-year-old white male clinic patient of Dr. 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 Received report from Dr. Montesinos at [facility] in [place]. Patient was admitted there after difficulty weaning off the ventilator after he was intubated after failed noninvasive ventilator support after he was transferred from [facility] after his spinal surgery to [facility]. He remained on the ventilator for 3 weeks has some vocal cord dysfunction due to the long intubation status and most recently having urinary retention after Alves catheter was discontinued and currently has Klebsiella UTI maintained on Bactrim and Cipro double coverage because of such a significant organism. He had some significant hallucinations last week but that has been resolved. Patient currently remains on 2 L by nasal cannula of oxygen receives nebulizer treatments of DuoNeb every 6 hours and uses his home CPAP machine. His prior level of functioning was independent of ADLs and ambulation. I reviewed all of his current medications and certified pharmacy tech here at the hospital has confirmed accuracy and all those have been continued. He does have a PICC line in his right upper arm. Upon review of the history and physical the following information was obtained: Past medical history: diabetes mellitus on oral therapy, obstructive sleep apnea, COPD with chronic respiratory failure, polycythemia due to chronic respiratory failure, tobacco use, chronic low back pain, peripheral neuropathy, PVD, CAD previous bypass surgery, thrombocytopenia, morbid obesity with hypoventilation syndrome, congestive heart failure with acute on chronic diastolic type with volume overload at admission to [facility], hyperlipidemia, hypertension, carpal tunnel syndrome, severe DJD of the right knee. He also has a history of SVT. Subjective/Events-last exam Social work spoke with the daughter she wants a meeting so I will have the nurse reach out to her she always has a lot of questions which most of them the nurse can answer and will be available tomorrow morning if she is around but pt is showing very slow progress having a lot of pain which has been a chronic condition making it very difficult to make any headway while he's in inpatient rehab May consider steroids but that will cause significant hyperglycemia so we will confer with Dr. Ahn regarding the option of that but that would only be a temporary situation and juggling the wound vac on the spinal surgery wound to decrease the chance of infection also Refusing varun wraps Still refuses BiPAP and CPAP Conferred with RN Reviewed therapy notes Check meds and labs Review of Systems General: Fatigue Pulmonary: Dyspnea Musculoskeletal: back pain, leg pain Objective Exam Vital Signs Vital Signs Date Time Temp Pulse Resp B/P (MAP) Pulse Ox O2 Delivery O2 Flow Rate FiO2 07/01/19 17:09 98.4 75 18 145/65 (91) 93 Nasal Cannula 2.00 Capillary Refill : Less Than 3 SecondsLess Than 3 Seconds General Appearance: No Apparent Distress, WD/WN, Chronically ill, Obese HEENT: PERRL/EOMI, Normal ENT Inspection, Pharynx Normal, Moist Mucous Membranes Neck: Full Range of Motion, Normal Inspection, Non Tender, Supple Respiratory: Chest Non Tender, Lungs Clear, Normal Breath Sounds, No Accessory Muscle Use, No Respiratory Distress, Crackles (LLL subtle) Cardiovascular: Regular Rate, Rhythm, No Gallop, No JVD, No Murmur Gastrointestinal: Normal Bowel Sounds, No Organomegaly, No Pulsatile Mass, Non Tender, Soft Back: Normal Inspection, No CVA Tenderness, Decreased Range of Motion Extremity: Normal Capillary Refill, Normal Inspection, Normal Range of Motion, Non Tender, No Calf Tenderness, Pedal Edema Neurologic/Psychiatric: Alert, Oriented x3, No Motor/Sensory Deficits, chief wellness officer II- XII Norm as Tested, Depressed Affect Skin: Normal Color, Warm/Dry, Other (venous stasis dermatitis) Lymphatic: No Adenopathy Results/Procedures Lab Patient resulted labs reviewed. FIM Transfers Therapy Code Descriptions/Definitions Functional [place] Measure: 0=Not Assessed/NA 4=Minimal Assistance 1=Total Assistance 5=Supervision or Setup 2=Maximal Assistance 6=Modified [place] 3=Moderate Assistance 7=Complete [place] Therapy Quality Codes: 6 Independent with activity with or without an assistive device 5 Patient requires set up or clean up by helper. Patient completes activity by themselves 4 Supervision or touching assist (CGA). [place] provide cues , steadying assist 3 The helper provides less than half the effort to complete the activity 2 The helper provides more than half the effort to complete the activity 1 Dependent. The helper does all the effort to complete an activity 7 Patient refused to complete or attempt activity 9 The patient did not perform the activity before the current illness or injury 88 Not attempted due to Medical conditions or safety concerns Transfers (B, C, W/C) (FIM): 3 Scootin Rollin Roll Left to Right (QC): 4 Supine to/from Sit: 3 Sit to/from Stand: 3 Sit to Lying (QC): 3 Sit to Stand (QC): 4 Chair/Raa-ab-Rfsav Xfer(QC): 2 Bed to/from Chair: 4 Car Transfer (QC): 2 Gait Training Does the Patient Walk?: Yes Gait (FIM): 1 Distance (FIM): 1=up to 49 ft Distance: 20', 10'x2 Gait Level of Assist: 4 Gait Persons Needed: 1 Gait Assistive Device: FWW Wheelchair Training Does the Pt Use a Wheelchair?: Yes Wheelchair (FIM): 2 Wheelchair Distance: 3=150 ft Distance: 60' Wheelchair Level of Assist: 5 Wheel 50 ft with 2 turns (QC): 4 Wheel 150 ft (QC): 4 Type of Wheelchair: Manual Mental Status/Objective Comprehension: 7 Expression: 7 Social Interaction: 7 Problem Solvin Memory: 7 ADL-Treatment Feedin (Pt able to feed self without assist) Eating (QC): 6 Groomin Oral Hygiene (QC): 5 Bathin Bathing Location: L Arm, R Arm, Chest, Abdomen Shower/Bathe Self (QC): 3 Upper Extremity Dressin Upper Body Dressing (QC): 4 Lower Extremity Dressin Lower Body Dressing (QC): 2 On/Off Footwear (QC): 2 Toiletin (Pt. was incontinent of bowel while in bed. OT removed depend in bed, and placed bed betts per pt. request, as he had to go quickly. After toileting, OT cleansed brandyn area at bed level.) Toileting Hygiene (QC): 1 Toilet/Commode Transfer: 2 Toilet Transfer (QC): 2 Shower: 0 Assessment/Plan Assessment and Plan Assess & Plan/Chief Complaint Assessment: (1) Myopathy (2) COPD (chronic obstructive pulmonary disease) (3) Respiratory failure, acute and chronic (4) Polycythemia (5) Tobacco use (6) Back pain (7) Neuropathy (8) PVD (peripheral vascular disease) (9) Hx of CABG (10) Obesity hypoventilation syndrome (11) Hypertension (12) Renal insufficiency (13) Hyperlipemia (14) Arthritis of right knee (15) Hx of supraventricular tachycardia (16) Obesity (17) Diabetes mellitus (18) SIDNEY on CPAP (19) CO2 narcosis (20) CAD (coronary artery disease) (21) Status post lumbar spine surgery for decompression of spinal cord (22) UTI Klebsiella s/p Bactrim and Cipro then DC when added Jorge and Vanc due to wound (23) Anxiety (24) Wound dehiscence requiring bedside debridement and placement of wound vac by Dr Carrasco 06/19/19 (25) Diarrhea w/mild dehydration now resolving (26) edema (27) Left leg radiculopathy severe will place on short low dose course of IV steroids Plan: Drs Malini, Anabelle, Rachel, Danilo are appreciated Abx changed to Jorge and Vanc for wound dehiscence and DC Cipro and Bactrim and wound vac maintained now abx regimen completed 06/27/19 Check labs prn IRF protocol Pain control Monitor closely Questran DC High risk for C diff IS use along with Nebs Continue progress of PT with ambulation Encourage use of CPAP Unsure how much recovery he will be able to obtain in IRF? Restart Lasix and potassium along with VARUN wraps but he refuses VARUN wraps Psych consult IV steroids (1) Myopathy (2) Postoperative wound dehiscence (3) Wound drainage (4) CO2 retention (5) Hyperkalemia (6) Renal failure (7) Elevated brain natriuretic peptide (BNP) level (8) Clot retention of urine (9) COPD (chronic obstructive pulmonary disease) (10) Polycythemia (11) Diabetes mellitus (12) Back pain (13) CAD (coronary artery disease) (14) Hyperlipemia (15) Neuropathy (16) Renal insufficiency (17) PVD (peripheral vascular disease) (18) Hypertension (19) Obesity (20) Respiratory failure, acute and chronic (21) Arthritis of right knee (22) Obesity hypoventilation syndrome (23) CO2 narcosis (24) SIDNEY on CPAP (25) Hx of supraventricular tachycardia (26) Decubitus ulcer (27) Urinary retention (28) BPH (benign prostatic hyperplasia) (29) UTI due to Klebsiella species (30) Hx of CABG (31) Status post lumbar spine surgery for decompression of spinal cord (32) Tobacco use JASPER LONG DO Jul 01, 2019 09:13
--- NOTE | 2019-07-01 09:36 | Physical Therapy Daily Note ---
PT Daily Note-Current Subjective Patient continues to report he is not sleeping well at night. Agrees to PT. Pain Numeric Pain Scale: 7 Location: Left Location Body Site: Calf Pain Description: Burning, Chronic Mental Status Patient Orientation: Normal For Age Attachments: Oxygen, Alves Catheter wound vac Transfers Therapy Code Descriptions/Definitions Functional [place] Measure: 0=Not Assessed/NA 4=Minimal Assistance 1=Total Assistance 5=Supervision or Setup 2=Maximal Assistance 6=Modified [place] 3=Moderate Assistance 7=Complete [place] Therapy Quality Codes: 6 Independent with activity with or without an assistive device 5 Patient requires set up or clean up by helper. Patient completes activity by themselves 4 Supervision or touching assist (CGA). [place] provide cues , steadying assist 3 The helper provides less than half the effort to complete the activity 2 The helper provides more than half the effort to complete the activity 1 Dependent. The helper does all the effort to complete an activity 7 Patient refused to complete or attempt activity 9 The patient did not perform the activity before the current illness or injury 88 Not attempted due to Medical conditions or safety concerns Transfers (B, C, W/C) (FIM): 3 Scootin Rollin Roll Left to Right (QC): 5 Supine to/from Sit: 3 Sit to/from Stand: 3 Sit to Lying (QC): 3 Sit to Stand (QC): 3 Chair/Dmq-fc-Zggwj Xfer(QC): 4 Bed to/from Chair: 4 Patient continues to have difficulty with sit to stand from low position. 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 Gait Training Does the Patient Walk?: Yes Gait (FIM): 1 Distance (FIM): 1=up to 49 ft Distance: 30' Walk 10 feet (QC): 4 Gait Level of Assist: 4 Gait Persons Needed: 1 (with SBA of 1 and assist to push w/c behind patient for safety) Gait Assistive Device: FWW very slow, left LE lag/fatigues very quickly with activity Wheelchair Training Does the Pt Use a Wheelchair?: Yes Wheelchair (FIM): 2 Wheelchair Distance: 1=421-46 ft Distance: 80' x 5 Wheelchair Level of Assist: 3 Wheel 50 ft with 2 turns (QC): 3 Type of Wheelchair: Manual patient performs by utilizing bilateral LE's and UE's/patient requires time to complete all tasks due to weakness and fatigue Exercises Supine Ex: Ankle pumps, Quad Set, Heel Slides Supine Reps: 15 (2 sets in bed) Seated Therapy Exercises: Ankle pumps, Sit to stand (x 7 in parallel bars and x 4 from w/c), Long arc quads, Hip flexion Seated Reps: 15 (2 sets) Assessment Patient is very fatigued on this date and requires time to complete all functional tasks. PT to continue to increase activity as tolerated by patient. Patient is limited due to weakness and painful left LE due to neuropathy. PT Short Term Goals Short Term Goals Time Frame: Jun 25, 2019 Transfers (B,C,W/C) (FIM): 3 Gait (FIM): 1 Gait Distance Comment: 5' Gait Level of Assist: 3 Gait Assistive Device: FWW Wheelchair Distance: 60' PT Database Coordinator Goals Senior Living Goals PT Database Coordinator Goals Time Frame: Jul 09, 2019 Transfers (B,C,W/C) (FIM): 4 Sit to Lying (QC): 4 Lying-Sitting on Side/Bed(QC): 4 Sit to Stand (QC): 3 Rollin Roll Left to Right (QC): 4 Chair/Igq-us-Cygba Xfer(QC): 3 Car Transfer (QC): 3 Gait (FIM): 1 Distance: 20' Walk 10 feet (QC): 3 Walk 10ft-Uneven Surface(QC): 3 Gait Level of Assist: 4 Gait Assistive Device: FWW Wheelchair (FIM): 6 Distance: 150' Wheelchair Level of Assist: 5 Wheel 50 feet with 2 turns (QC: 4 PT Plan Treatment/Plan Treatment Plan: Continue Plan of Care Treatment Plan: Bed Mobility, Concurrent Therapy, Education, Functional Act ivity Leo, Functional Strength, Group Therapy, Gait, Safety, Therapeutic Exercise, Transfers Treatment Duration: Jul 09, 2019 Frequency: At least 5 of 7 days/Wk (IRF) Estimated Hrs Per Day: 1.5 hours per day Patient and/or Family Agrees t: Yes Time/GCodes Time In: 800 Time Out: 930 Total Billed Treatment Time: 90 Total Billed Treatment 1 visit EX x 3 50 min WCH x 2 30 min GT 10 min OTIS BALDWIN PT Jul 01, 2019 09:36
[2019-07-01] MEDS: GABAPENTIN 300 MG (NEURONTIN) CAP PO SCH (09:37)
[2019-07-01] MEDS: FUROSEMIDE 40 MG (LASIX) TAB PO SCH (09:37)
[2019-07-01] MEDS: meTOprolol TARTRATE 25 MG (LOPRESSOR) TABLET PO SCH ×2 (09:37→21:18)
[2019-07-01] MEDS: TAMSULOSIN 0.4 MG (FLOMAX) CAP PO SCH (09:37)
[2019-07-01] MEDS: DICLOFENAC 1% GEL 100 GM (VOLTAREN) TUBE TOP SCH ×4 (09:38→21:18)
[2019-07-01] MEDS: THEOPHYLLINE ER 400 MG TAB (THEO-24) PO SCH (09:41)
[2019-07-01] MEDS: RT-ALBUTEROL/IPRATROPIUM 3 ML (DUONEB) VIAL INH SCH ×3 (10:44→22:51)
[2019-07-01] MEDS ORDERED: methylPREDNISolone 40 MG/ML (Solu-MEDROL) VIAL IV ONE (11:00)
[2019-07-01] MEDS: HYDROcodone/APAP 5 MG/325 MG (LORTAB) TAB PO PRN ×2 (11:32→21:47)
--- NOTE | 2019-07-01 11:45 | Occupational Ther Daily Note ---
OT Current Status-Daily Note Subjective Pt alert, lying in bed. Pt c/o pain in R foot, nrsg brought pain meds. Pt agrees to therapy though appears fatigued. Mental Status/Objective Patient Orientation: Person, Place, Time, Situation Therapy Code Descriptions/Definitions Functional [place] Measure: 0=Not Assessed/NA 4=Minimal Assistance 1=Total Assistance 5=Supervision or Setup 2=Maximal Assistance 6=Modified [place] 3=Moderate Assistance 7=Complete [place] ADL-Treatment Pt declined grooming or sponge bath. Pt attempted to assist with bed mobility, assist x2 for rolling and scooting up in bed. Nrsg in room to give medications and assist with positioning pt on L side. Therapy Code Descriptions/Definitions Functional [place] Measure: 0=Not Assessed/NA 4=Minimal Assistance 1=Total Assistance 5=Supervision or Setup 2=Maximal Assistance 6=Modified [place] 3=Moderate Assistance 7=Complete [place] Therapy Quality Codes: 6 Independent with activity with or without an assistive device 5 Patient requires set up or clean up by helper. Patient completes activity by themselves 4 Supervision or touching assist (CGA). [place] provide cues , steadying assist 3 The helper provides less than half the effort to complete the activity 2 The helper provides more than half the effort to complete the activity 1 Dependent. The helper does all the effort to complete an activity 7 Patient refused to complete or attempt activity 9 The patient did not perform the activity before the current illness or injury 88 Not attempted due to Medical conditions or safety concerns Other Treatment UE strengthening of hands and arms to increase strength and activity tolerance for daily functional tasks. Resistive clothespins completed with light resistance, 10x's with each finger (tip-tip pinch). Pt completed UE functional tasks against gravity, pt tolerate though fatigued quickly and was SOA. Pt took increased time to complete all activities due to increase LE pain and decreased activity tolerance requiring multiple recovery breaks. After therapy, pt lying in bed with call light/phone in reach. All needs met in room. OT Short Term Goals Short Term Goals Time Frame: Jun 25, 2019 Grooming(FIM): 5 Bathing(FIM): 3 Lower Body Dressing(FIM): 3 Toileting(FIM): 3 Transfers (B,C,W/C) (FIM): 3 Toilet/Commode Transfer(FIM): 3 Additional Short Term Goals: 1-Demonstrate ADL Tasks, 2-Verbalize Understanding, 3-ImproveStrength/Leo 1=Demonstrate adherence to instructed precautions during ADL tasks. 2=Patient will verbalize/demonstrate understanding of assistive devices/modifications for ADL. 3=Patient will improve strength/tolerance for activity to enable patient to perform ADL's. OT Care Home Goals Care Home Goals Time Frame: Jul 09, 2019 Eating (FIM): 6 Eating (QC): 6 Groomin Oral Hygiene (QC): 6 Bathing(FIM): 5 Shower/Bathe Self (QC): 5 Upper Body Dressing(FIM): 6 Upper Body Dressing (QC): 6 Lower Body Dressing(FIM): 6 Lower Body Dressing (QC): 5 On/Off Footwear (QC): 5 Toileting(FIM): 6 Toileting Hygiene (QC): 6 Toilet/Commode Transfer(FIM): 6 Toilet/Commode Transfer (QC): 6 Shower Transfer(FIM): 5 Comprehension(FIM): 7 Expression (FIM): 7 Social Interaction(FIM): 7 Problem Solving(FIM): 7 Memory(FIM): 7 Additional Goals: 1-Demonstrate ADL Tasks, 2-Verbalize Understanding, 3- ImproveStrength/Leo 1=Demonstrate adherence to instructed precautions during ADL tasks. 2=Patient will verbalize/demonstrate understanding of assistive devices/modifications for ADL. 3=Patient will improve strength/tolerance for activity to enable patient to perform ADL's. OT Education/Plan Problem List/Assessment Assessment: Decreased Activ Tolerance, Impaired Bed Mobility, Impaired Self- Care Skills Discharge Recommendations Plan/Recommendations: Continue POC Treatment Plan/Plan of Care Patient would benefit from OT for education, treatment and training to promote independence in ADL's, mobility, safety and/or upper extremity function for ADL's. Plan of Care: ADL Retraining, Functional Mobility, Group Exercise/Act as Ind, UE Funct Exercise/Act Treatment Duration: Jul 09, 2019 Frequency: At least 5 of 7 days/Wk (IRF) Estimated Hrs Per Day: 1.5 hours per day Agreement: Yes Rehab Potential: Fair Time/GCodes Start Time: 11:15 Stop Time: 12:15 Total Time Billed (hr/min): 60 Billed Treatment Time 1 visit-FA 3 (40 min) EX 1 (20 min) AMANDA WEINER Jul 01, 2019 11:45
--- NOTE | 2019-07-01 12:31 | Pulmonary Progress Note ---
Subjective Time Seen by a Provider: 08:11 Subjective/Events-last exam No complications noted. Sepsis Event Evaluation Height, Weight, BMI Height: 5'10.00" Weight: 270lbs. 3.2oz. 122.632881ab; 38.0 BMI Method:Stated Exam Exam Vital Signs Date Time Temp Pulse Resp B/P (MAP) Pulse Ox O2 Delivery O2 Flow Rate FiO2 07/01/19 09:45 91 Room Air 07/01/19 09:00 Nasal Cannula 2.00 07/01/19 08:00 97.9 86 20 117/68 (84) 93 Nasal Cannula 2.00 07/01/19 05:40 97.5 74 18 138/55 (82) 96 Nasal Cannula 2.00 06/30/19 20:20 Nasal Cannula 3.00 06/30/19 20:12 88 Nasal Cannula 2.00 06/30/19 17:57 99.0 88 18 148/56 (86) 95 Nasal Cannula 2.00 06/30/19 16:04 91 Nasal Cannula 3.00 I & O 07/01/19 07:00 Intake Total 825 ml Output Total 2700 ml Balance -1875 ml Height & Weight Height: 5'10.00" Weight: 270lbs. 3.2oz. 122.497364nh; 38.0 BMI Method:Stated General Appearance: No Apparent Distress, WD/WN HEENT: PERRL/EOMI, Normal ENT Inspection, Pharynx Normal Neck: Full Range of Motion, Non Tender, Supple Respiratory: Chest Non Tender, No Accessory Muscle Use, No Respiratory Distress, Decreased Breath Sounds Cardiovascular: Regular Rate, Rhythm Capillary Refill: Less Than 3 Seconds Gastrointestinal: normal bowel sounds, non tender, soft Extremity: Normal Capillary Refill, Non Tender Neurologic/Psychiatric: Alert Skin: Normal Color, Warm/Dry Lymphatic: No Adenopathy Results Lab Laboratory Tests 06/30/19 05:50 Assessment/Plan Assessment/Plan Hypoxia probably secondary to COPD -Monitor Dehiscence of lumbar surgical wound -Wound care following -Wound vac -surgery following Morbid obesity with OHS -Home CPAP machine Anemia -Monitor DM Tobacco use Debility ANIYA DUDLEY DO Jul 01, 2019 12:31
--- NOTE | 2019-07-01 13:24 | Occupational Ther Daily Note ---
OT Current Status-Daily Note Subjective Pt alert, lying in bed. Pt agrees to therapy. Pt's L LE continues to be in pain. Mental Status/Objective Patient Orientation: Person, Place, Time, Situation Therapy Code Descriptions/Definitions Functional [place] Measure: 0=Not Assessed/NA 4=Minimal Assistance 1=Total Assistance 5=Supervision or Setup 2=Maximal Assistance 6=Modified [place] 3=Moderate Assistance 7=Complete [place] ADL-Treatment Therapy Code Descriptions/Definitions Functional [place] Measure: 0=Not Assessed/NA 4=Minimal Assistance 1=Total Assistance 5=Supervision or Setup 2=Maximal Assistance 6=Modified [place] 3=Moderate Assistance 7=Complete [place] Therapy Quality Codes: 6 Independent with activity with or without an assistive device 5 Patient requires set up or clean up by helper. Patient completes activity by themselves 4 Supervision or touching assist (CGA). [place] provide cues , steadying assist 3 The helper provides less than half the effort to complete the activity 2 The helper provides more than half the effort to complete the activity 1 Dependent. The helper does all the effort to complete an activity 7 Patient refused to complete or attempt activity 9 The patient did not perform the activity before the current illness or injury 88 Not attempted due to Medical conditions or safety concerns Other Treatment Pt able to reach above head to hand holds on HOB then with lower bed elevated pt able to pull with B UE's and push with R LE to scoot self up in bed. Pt completed 4 medium resistance theraband exercises for B UE's, 3 sets 10 reps. Pt required recovery breaks between each set. After therapy, pt lying in bed with call light/phone in reach. All needs met in room. OT Short Term Goals Short Term Goals Time Frame: Jun 25, 2019 Grooming(FIM): 5 Bathing(FIM): 3 Lower Body Dressing(FIM): 3 Toileting(FIM): 3 Transfers (B,C,W/C) (FIM): 3 Toilet/Commode Transfer(FIM): 3 Additional Short Term Goals: 1-Demonstrate ADL Tasks, 2-Verbalize Understanding, 3-ImproveStrength/Leo 1=Demonstrate adherence to instructed precautions during ADL tasks. 2=Patient will verbalize/demonstrate understanding of assistive devices/modifications for ADL. 3=Patient will improve strength/tolerance for activity to enable patient to perform ADL's. OT Nursing Home Goals [place] Goals Time Frame: Jul 09, 2019 Eating (FIM): 6 Eating (QC): 6 Groomin Oral Hygiene (QC): 6 Bathing(FIM): 5 Shower/Bathe Self (QC): 5 Upper Body Dressing(FIM): 6 Upper Body Dressing (QC): 6 Lower Body Dressing(FIM): 6 Lower Body Dressing (QC): 5 On/Off Footwear (QC): 5 Toileting(FIM): 6 Toileting Hygiene (QC): 6 Toilet/Commode Transfer(FIM): 6 Toilet/Commode Transfer (QC): 6 Shower Transfer(FIM): 5 Comprehension(FIM): 7 Expression (FIM): 7 Social Interaction(FIM): 7 Problem Solving(FIM): 7 Memory(FIM): 7 Additional Goals: 1-Demonstrate ADL Tasks, 2-Verbalize Understanding, 3- ImproveStrength/Leo 1=Demonstrate adherence to instructed precautions during ADL tasks. 2=Patient will verbalize/demonstrate understanding of assistive devices/modifications for ADL. 3=Patient will improve strength/tolerance for activity to enable patient to perform ADL's. OT Education/Plan Problem List/Assessment Assessment: Decreased Activ Tolerance, Decreased UE Strength, Impaired Bed Mobility, Impaired Self-Care Skills Discharge Recommendations Plan/Recommendations: Continue POC Treatment Plan/Plan of Care Patient would benefit from OT for education, treatment and training to promote independence in ADL's, mobility, safety and/or upper extremity function for ADL's. Plan of Care: ADL Retraining, Functional Mobility, Group Exercise/Act as Ind, UE Funct Exercise/Act Treatment Duration: Jul 09, 2019 Frequency: At least 5 of 7 days/Wk (IRF) Estimated Hrs Per Day: 1.5 hours per day Agreement: Yes Rehab Potential: Fair Time/GCodes Start Time: 12:45 Stop Time: 13:15 Total Time Billed (hr/min): 30 Billed Treatment Time 1 visit-FA 1 (10 min) EX 1 (20 min) AMANDA WEINER Jul 01, 2019 13:24
[2019-07-01] MEDS: ROFLUMILAST 500 MCG TAB (DALIRESP) PO SCH (14:58)
--- NOTE | 2019-07-01 16:00 | NUR ---
HAD AGREED TO TRY VARUN WRAPS ON LEGS AGAIN, BUT NOW STATES TOO PAINFUL ON LEFT LEG AND REMOVED ON THAT LEG. MEDICATED WITH TYLENOL FOR PAIN.
[2019-07-01] MEDS: ENOXAPARIN 40 MG/0.4 ML (LOVENOX) SYR SC SCH (16:03)
[2019-07-01] MEDS: ACETAMINOPHEN 325 MG TABLET PO PRN (16:06)
[2019-07-01 17:09] VITALS: BP 145/65
[2019-07-01] MEDS: QUEtiapine 25 MG (SEROquel) TAB IMMEDIATE RELEASE PO SCH (21:18)
[2019-07-01] MEDS: GABAPENTIN 600 MG (NEURONTIN) TAB PO SCH (21:20)
[2019-07-01] MEDS: LORazepam 0.5 MG (ATIVAN) TABLET PO PRN (21:47)
[2019-07-02 05:47] VITALS: BP 145/65
[2019-07-02] MEDS: MULTIVIT W/MINERALS TAB (THERAGRAN M) PO SCH (06:35)
[2019-07-02] MEDS: inSUlin ASPART (NovoLOG) 1 UNIT/0.01 ML (CHARGE PER UNIT) SC SCH ×4 (06:35→21:31)
[2019-07-02] MEDS: PANTOPRAZOLE 40 MG (PROTONIX) TAB PO SCH (06:35)
[2019-07-02] MEDS: CATHETER FLUSH 10 ML SYR IV SCH ×3 (06:35→21:35)
[2019-07-02] MEDS: amLODIPine 10 MG (NORVASC) TAB PO SCH (06:35)
[2019-07-02] MEDS: KCL 20 MEQ TAB (K-DUR) PO SCH (06:35)
[2019-07-02] MEDS: LACTOBACILLUS ACIDOPHILUS (PROBIOTIC) CAPSULE PO SCH ×4 (06:35→21:31)
[2019-07-02] MEDS: SILDENAFIL 20 MG (REVATIO) TAB NON-FORMULARY PO SCH ×3 (06:37→21:41)
[2019-07-02] MEDS: RT-ALBUTEROL/IPRATROPIUM 3 ML (DUONEB) VIAL INH SCH ×3 (07:26→22:03)
--- NOTE | 2019-07-02 08:05 | NUR ---
project coordinator rn IN TO SEE PT
--- NOTE | 2019-07-02 09:02 | PM&R Progress Note ---
Subjective HPI/CC On Admission Date Seen by Provider: Jul 02, 2019 Time Seen by Provider: 09:00 CC: Critical illness debility HPI: This is a 68-year-old white male clinic patient of Dr. 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 Received report from Dr. Montesinos at [facility] in [place]. Patient was admitted there after difficulty weaning off the ventilator after he was intubated after failed noninvasive ventilator support after he was transferred from [facility] after his spinal surgery to [facility]. He remained on the ventilator for 3 weeks has some vocal cord dysfunction due to the long intubation status and most recently having urinary retention after Alves catheter was discontinued and currently has Klebsiella UTI maintained on Bactrim and Cipro double coverage because of such a significant organism. He had some significant hallucinations last week but that has been resolved. Patient currently remains on 2 L by nasal cannula of oxygen receives nebulizer treatments of DuoNeb every 6 hours and uses his home CPAP machine. His prior level of functioning was independent of ADLs and ambulation. I reviewed all of his current medications and technical assoc here at the hospital has confirmed accuracy and all those have been continued. He does have a PICC line in his right upper arm. Upon review of the history and physical the following information was obtained: Past medical history: diabetes mellitus on oral therapy, obstructive sleep apnea, COPD with chronic respiratory failure, polycythemia due to chronic respiratory failure, tobacco use, chronic low back pain, peripheral neuropathy, PVD, CAD previous bypass surgery, thrombocytopenia, morbid obesity with hypoventilation syndrome, congestive heart failure with acute on chronic diastolic type with volume overload at admission to [facility], hyperlipidemia, hypertension, carpal tunnel syndrome, severe DJD of the right knee. He also has a history of SVT. Subjective/Events-last exam Conferred with Dr. Carrasco and given the fact that Edgar and wound care has been working on the wound since he arrived 2 weeks ago and there really has been no progress in secondary intention healing but he does not have any evidence of erythema or drainage anymore to suggest infection I did come to the same conclusion of Dr. Carrasco did and he will require surgery likely Friday Psych evaluation at 1015 Oxygen maintained at 2-3 L Refused CPAP Refused Estrada wraps Bowel movement on 07/01 Conferred with RN in depth about the plan for surgery Reviewed therapy notes Review of Systems Pulmonary: Dyspnea Musculoskeletal: leg pain Objective Exam Vital Signs Vital Signs Date Time Temp Pulse Resp B/P (MAP) Pulse Ox O2 Delivery O2 Flow Rate FiO2 07/02/19 14:48 90 Nasal Cannula 2.00 07/02/19 05:47 96.9 73 16 145/65 (91) Capillary Refill : Less Than 3 SecondsLess Than 3 Seconds General Appearance: No Apparent Distress, WD/WN, Chronically ill, Obese HEENT: PERRL/EOMI, Normal ENT Inspection, Pharynx Normal, Moist Mucous Membranes Neck: Full Range of Motion, Normal Inspection, Non Tender, Supple Respiratory: Chest Non Tender, Lungs Clear, Normal Breath Sounds, No Accessory Muscle Use, No Respiratory Distress, Crackles (LLL subtle) Cardiovascular: Regular Rate, Rhythm, No Gallop, No JVD, No Murmur Gastrointestinal: Normal Bowel Sounds, No Organomegaly, No Pulsatile Mass, Non Tender, Soft Back: Normal Inspection, No CVA Tenderness, Decreased Range of Motion Extremity: Normal Capillary Refill, Normal Inspection, Normal Range of Motion, Non Tender, No Calf Tenderness, Pedal Edema Neurologic/Psychiatric: Alert, Oriented x3, No Motor/Sensory Deficits, topstitcher zigzag II- XII Norm as Tested, Depressed Affect Skin: Normal Color, Warm/Dry, Other (venous stasis dermatitis) Lymphatic: No Adenopathy Results/Procedures Lab Patient resulted labs reviewed. FIM Transfers Therapy Code Descriptions/Definitions Functional [place] Measure: 0=Not Assessed/NA 4=Minimal Assistance 1=Total Assistance 5=Supervision or Setup 2=Maximal Assistance 6=Modified [place] 3=Moderate Assistance 7=Complete [place] Therapy Quality Codes: 6 Independent with activity with or without an assistive device 5 Patient requires set up or clean up by helper. Patient completes activity by themselves 4 Supervision or touching assist (CGA). [place] provide cues , steadying assist 3 The helper provides less than half the effort to complete the activity 2 The helper provides more than half the effort to complete the activity 1 Dependent. The helper does all the effort to complete an activity 7 Patient refused to complete or attempt activity 9 The patient did not perform the activity before the current illness or injury 88 Not attempted due to Medical conditions or safety concerns Transfers (B, C, W/C) (FIM): 3 Scootin Rollin Roll Left to Right (QC): 5 Supine to/from Sit: 3 Sit to/from Stand: 3 Sit to Lying (QC): 3 Sit to Stand (QC): 3 Chair/Hky-hw-Anmkd Xfer(QC): 4 Bed to/from Chair: 4 Car Transfer (QC): 2 Gait Training Does the Patient Walk?: Yes Gait (FIM): 1 Distance (FIM): 1=up to 49 ft Distance: 30' Walk 10 feet (QC): 4 Gait Level of Assist: 4 Gait Persons Needed: 1 (with SBA of 1 and assist to push w/c behind patient for safety) Gait Assistive Device: FWW Wheelchair Training Does the Pt Use a Wheelchair?: Yes Wheelchair (FIM): 2 Wheelchair Distance: 2=361-72 ft Distance: 80' x 5 Wheelchair Level of Assist: 3 Wheel 50 ft with 2 turns (QC): 3 Wheel 150 ft (QC): 4 Type of Wheelchair: Manual Mental Status/Objective Comprehension: 7 Expression: 7 Social Interaction: 7 Problem Solvin Memory: 7 ADL-Treatment Feedin (Pt able to feed self without assist) Eating (QC): 6 Groomin Oral Hygiene (QC): 5 Bathin Bathing Location: L Arm, R Arm, Chest, Abdomen Shower/Bathe Self (QC): 3 Upper Extremity Dressin Upper Body Dressing (QC): 4 Lower Extremity Dressin Lower Body Dressing (QC): 2 On/Off Footwear (QC): 2 Toiletin (Pt. was incontinent of bowel while in bed. OT removed depend in bed, and placed bed betts per pt. request, as he had to go quickly. After toileting, OT cleansed brandyn area at bed level.) Toileting Hygiene (QC): 1 Toilet/Commode Transfer: 2 Toilet Transfer (QC): 2 Shower: 0 Assessment/Plan Assessment and Plan Assess & Plan/Chief Complaint Assessment: (1) Myopathy (2) COPD (chronic obstructive pulmonary disease) (3) Respiratory failure, acute and chronic (4) Polycythemia (5) Tobacco use (6) Back pain (7) Neuropathy (8) PVD (peripheral vascular disease) (9) Hx of CABG (10) Obesity hypoventilation syndrome (11) Hypertension (12) Renal insufficiency (13) Hyperlipemia (14) Arthritis of right knee (15) Hx of supraventricular tachycardia (16) Obesity (17) Diabetes mellitus (18) SIDNEY on CPAP (19) CO2 narcosis (20) CAD (coronary artery disease) (21) Status post lumbar spine surgery for decompression of spinal cord (22) UTI Klebsiella s/p Bactrim and Cipro then DC when added Jorge and Vanc due to wound (23) Anxiety (24) Wound dehiscence requiring bedside debridement and placement of wound vac by Dr Carrasco 06/19/19 (25) Diarrhea w/mild dehydration now resolving (26) edema (27) Left leg radiculopathy severe will place on short low dose course of IV steroids Plan: Drs Malini, Anabelle, Rachel, Danilo are appreciated Abx changed to Jorge and Vanc for wound dehiscence and DC Cipro and Bactrim and wound vac maintained now abx regimen completed 06/27/19 Check labs prn IRF protocol Pain control Monitor closely Questran DC High risk for C diff IS use along with Nebs Continue progress of PT with ambulation Encourage use of CPAP Unsure how much recovery he will be able to obtain in IRF? Restart Lasix and potassium along with ESTRADA wraps but he refuses ESTRADA wraps Psych consult IV steroids Needs surgery Friday afternoon by Dr Carrasco because it is necessary to heal the spine wound in order to fully recover but he is high risk for correction intubation after OR just like last surgery (1) Myopathy (2) Postoperative wound dehiscence (3) Wound drainage (4) CO2 retention (5) Hyperkalemia (6) Renal failure (7) Elevated brain natriuretic peptide (BNP) level (8) Clot retention of urine (9) COPD (chronic obstructive pulmonary disease) (10) Polycythemia (11) Diabetes mellitus (12) Back pain (13) CAD (coronary artery disease) (14) Hyperlipemia (15) Neuropathy (16) Renal insufficiency (17) PVD (peripheral vascular disease) (18) Hypertension (19) Obesity (20) Respiratory failure, acute and chronic (21) Arthritis of right knee (22) Obesity hypoventilation syndrome (23) CO2 narcosis (24) SIDNEY on CPAP (25) Hx of supraventricular tachycardia (26) Decubitus ulcer (27) Urinary retention (28) BPH (benign prostatic hyperplasia) (29) UTI due to Klebsiella species (30) Hx of CABG (31) Status post lumbar spine surgery for decompression of spinal cord (32) Tobacco use JASPER LONG DO Jul 02, 2019 09:02
[2019-07-02] MEDS: THEOPHYLLINE ER 400 MG TAB (THEO-24) PO SCH (09:59)
[2019-07-02] MEDS: meTOprolol TARTRATE 25 MG (LOPRESSOR) TABLET PO SCH ×2 (09:59→21:31)
[2019-07-02] MEDS: FUROSEMIDE 40 MG (LASIX) TAB PO SCH (09:59)
[2019-07-02] MEDS: TAMSULOSIN 0.4 MG (FLOMAX) CAP PO SCH (09:59)
[2019-07-02] MEDS: GABAPENTIN 300 MG (NEURONTIN) CAP PO SCH (09:59)
[2019-07-02] MEDS: methylPREDNISolone 40 MG/ML (Solu-MEDROL) VIAL IV SCH (10:00)
[2019-07-02] MEDS: DICLOFENAC 1% GEL 100 GM (VOLTAREN) TUBE TOP SCH ×4 (10:00→21:30)
--- NOTE | 2019-07-02 10:52 | Physical Therapy Daily Note ---
PT Daily Note-Current Subjective Pt. in bed states he is ready work, states he hates this bed and would like to lay down on the mat in the gym for sup to sit practice. Pain Numeric Pain Scale: 5-Moderate Pain Location: Left Location Body Site: Calf Pain Description: Pressure Mental Status Patient Orientation: Normal For Age Attachments: Oxygen, Alves Catheter, Other-See Comments (wound vacc, ) Transfers Therapy Code Descriptions/Definitions Functional [place] Measure: 0=Not Assessed/NA 4=Minimal Assistance 1=Total Assistance 5=Supervision or Setup 2=Maximal Assistance 6=Modified [place] 3=Moderate Assistance 7=Complete [place] Therapy Quality Codes: 6 Independent with activity with or without an assistive device 5 Patient requires set up or clean up by helper. Patient completes activity by themselves 4 Supervision or touching assist (CGA). [place] provide cues , steadying assist 3 The helper provides less than half the effort to complete the activity 2 The helper provides more than half the effort to complete the activity 1 Dependent. The helper does all the effort to complete an activity 7 Patient refused to complete or attempt activity 9 The patient did not perform the activity before the current illness or injury 88 Not attempted due to Medical conditions or safety concerns Transfers (B, C, W/C) (FIM): 4 Scootin Rollin Supine to/from Sit: 4 Sit to/from Stand: 4 Gait Training Does the Patient Walk?: Yes Distance (FIM): 5=268-28 ft (100,50x2) Gait Level of Assist: 4 Gait Persons Needed: 1 (plus assist for w/c, O2 and [place]) Gait Assistive Device: FWW decreased DF left foot, slow gait, fatigue and minimal SOB Exercises Supine Ex: Bridging, Ankle pumps, Quad Set, Rolling, Glut sets, Heel Slides, Short Arc Quads, Scooting, Straight leg raise, Hip abd/add Supine Reps: 15 Seated Therapy Exercises: Ankle pumps, Sit to stand, Long arc quads, Hip abd/add Seated Reps: 10 Assessment Current Status: Good Progress c/o pain left LE limit some function this date, overall improved gait and TRFs PT Short Term Goals Short Term Goals Time Frame: Jun 25, 2019 Transfers (B,C,W/C) (FIM): 3 Gait (FIM): 1 Gait Distance Comment: 5' Gait Level of Assist: 3 Gait Assistive Device: FWW Wheelchair Distance: 80' x 5 PT Usp Goals Web Site Specialist Goals PT Usp Goals Time Frame: Jul 09, 2019 Transfers (B,C,W/C) (FIM): 4 Sit to Lying (QC): 4 Lying-Sitting on Side/Bed(QC): 4 Sit to Stand (QC): 3 Rollin Roll Left to Right (QC): 4 Chair/Khe-vs-Iqegc Xfer(QC): 3 Car Transfer (QC): 3 Gait (FIM): 1 Distance: 20' Walk 10 feet (QC): 3 Walk 10ft-Uneven Surface(QC): 3 Gait Level of Assist: 4 Gait Assistive Device: FWW Wheelchair (FIM): 6 Distance: 150' Wheelchair Level of Assist: 5 Wheel 50 feet with 2 turns (QC: 4 PT Plan Treatment/Plan Treatment Plan: Continue Plan of Care Treatment Plan: Bed Mobility, Concurrent Therapy, Education, Functional Activity Leo, Functional Strength, Group Therapy, Gait, Safety, Therapeutic Exercise, Transfers Treatment Duration: Jul 09, 2019 Frequency: At least 5 of 7 days/Wk (IRF) Estimated Hrs Per Day: 1.5 hours per day Patient and/or Family Agrees t: Yes Safety Risks/Education Patient Education: Gait Training, Transfer Techniques, Correct Positioning, W/C Management, Disease Process, Safety Issues Teaching Recipient: Patient Teaching Methods: Demonstration, Discussion Response to Teaching: Verbalize Understanding, Return Demonstration, Reinforcement Needed Time/GCodes Time In: 945 Time Out: 1045 Total Billed Treatment Time: 60 Total Billed Treatment 1,GT20m,FA25m,EX15m G Codes Necessary: REGIS Mancera PORTER BAGGAGE Jul 02, 2019 10:52
--- NOTE | 2019-07-02 11:38 | Occupational Ther Daily Note ---
OT Current Status-Daily Note Subjective Pt in bed, agrees to treatment. Pt reports pain in left foot, but states "it's tolerable." Mental Status/Objective Therapy Code Descriptions/Definitions Functional [place] Measure: 0=Not Assessed/NA 4=Minimal Assistance 1=Total Assistance 5=Supervision or Setup 2=Maximal Assistance 6=Modified [place] 3=Moderate Assistance 7=Complete [place] Attachments: Alves Catheter, IV ADL-Treatment Pt would like to shower this morning. Supine to sit with assist for trunk. Transfer to w/c with min assist using FWW. To shower room via w/c. Pt stood with min assist using grab bars and shower bench was placed behind pt. Seated bathing completed using hand held shower. Upper body bathing completed with set up. Pt able to wash bilateral upper legs and brandyn area. Uses long handled sponge to wash lower legs and feet. Assist to wash buttocks. Pt required assist to dry feet and buttocks. Don pullover shirt with set up. Pt required max assist to don Depends and shorts. Stood with min assist using grab bar during pant hike. Grooming tasks completed at w/c level. Pt able to brush teeth and comb hair with set up. Sit to stand from w/c with mod assist. Transfer to EOB with min assist. Sit to supine with assist for LE. Pt requires increased time for ADLs and takes rest breaks secondary to fatigue. Pt positioned in bed with needs met after session. Therapy Code Descriptions/Definitions Functional [place] Measure: 0=Not Assessed/NA 4=Minimal Assistance 1=Total Assistance 5=Supervision or Setup 2=Maximal Assistance 6=Modified [place] 3=Moderate Assistance 7=Complete [place] Therapy Quality Codes: 6 Independent with activity with or without an assistive device 5 Patient requires set up or clean up by helper. Patient completes activity by themselves 4 Supervision or touching assist (CGA). [place] provide cues , steadying assist 3 The helper provides less than half the effort to complete the activity 2 The helper provides more than half the effort to complete the activity 1 Dependent. The helper does all the effort to complete an activity 7 Patient refused to complete or attempt activity 9 The patient did not perform the activity before the current illness or injury 88 Not attempted due to Medical conditions or safety concerns Grooming (FIM): 5 Oral Hygiene (QC): 5 Bathing (FIM): 3 Shower/Bathe Self (QC): 3 Upper Body (FIM): 5 Upper Body Dressing (QC): 4 Lower Body Dressing (FIM): 2 Lower Body Dressing (QC): 2 OT Short Term Goals Short Term Goals Time Frame: Jun 25, 2019 Grooming(FIM): 5 Bathing(FIM): 3 Lower Body Dressing(FIM): 3 Toileting(FIM): 3 Transfers (B,C,W/C) (FIM): 3 Toilet/Commode Transfer(FIM): 3 Additional Short Term Goals: 1-Demonstrate ADL Tasks, 2-Verbalize Under standing, 3-ImproveStrength/Leo 1=Demonstrate adherence to instructed precautions during ADL tasks. 2=Patient will verbalize/demonstrate understanding of assistive devices/modifications for ADL. 3=Patient will improve strength/tolerance for activity to enable patient to perform ADL's. OT [facility] Goals Equipment Or Machinery Cleaner Goals Time Frame: Jul 09, 2019 Eating (FIM): 6 Eating (QC): 6 Groomin Oral Hygiene (QC): 6 Bathing(FIM): 5 Shower/Bathe Self (QC): 5 Upper Body Dressing(FIM): 6 Upper Body Dressing (QC): 6 Lower Body Dressing(FIM): 6 Lower Body Dressing (QC): 5 On/Off Footwear (QC): 5 Toileting(FIM): 6 Toileting Hygiene (QC): 6 Toilet/Commode Transfer(FIM): 6 Toilet/Commode Transfer (QC): 6 Shower Transfer(FIM): 5 Comprehension(FIM): 7 Expression (FIM): 7 Social Interaction(FIM): 7 Problem Solving(FIM): 7 Memory(FIM): 7 Additional Goals: 1-Demonstrate ADL Tasks, 2-Verbalize Understanding, 3- ImproveStrength/Leo 1=Demonstrate adherence to instructed precautions during ADL tasks. 2=Patient will verbalize/demonstrate understanding of assistive devices/modifications for ADL. 3=Patient will improve strength/tolerance for activity to enable patient to perform ADL's. OT Education/Plan Discharge Recommendations Plan/Recommendations: Continue POC Treatment Plan/Plan of Care Patient would benefit from OT for education, treatment and training to promote independence in ADL's, mobility, safety and/or upper extremity function for ADL's. Plan of Care: ADL Retraining, Functional Mobility, Group Exercise/Act as Ind, UE Funct Exercise/Act Treatment Duration: Jul 09, 2019 Frequency: At least 5 of 7 days/Wk (IRF) Estimated Hrs Per Day: 1.5 hours per day Agreement: Yes Rehab Potential: Fair Time/GCodes Start Time: 08:00 Stop Time: 09:00 Total Time Billed (hr/min): 60 Billed Treatment Time 1 visit, ADLx4(60minutes) FRED NEIL OT Jul 02, 2019 11:38
[2019-07-02] MEDS: HYDROcodone/APAP 5 MG/325 MG (LORTAB) TAB PO PRN ×2 (11:41→18:50)
--- NOTE | 2019-07-02 13:00 | Behavioral Health Consult ---
Consult- Consult Date Seen by Provider: Jun 23, 2019 Time Seen by Provider: 11:00 Date: 06-23-19 Referral: Dr. Law [facility]#: [id number] CPT Code: 56910 Psychodiagnostic Examination 10113 Interactive Complexity, 1 unit(s) Start Time: 11:00 am Stop Time: 1:00 pm Chief Complaint: depression, anxiety Referral: Florentino Meehan is a 68-year-old, , male referred by Dr. Law for a clinical diagnostic assessment. Information for this evaluation was gather ed from self-report, clinical observation, hospital nurse, and medical records. Presenting Problem: Therapist spoke with [place] nurse, Shanae before meeting him. Shanae reported he had back surgery one month ago, was hospitalized at [facility] after complications, then transferred to [facility]. She reported he obtained a wound on his back which delayed his progress and discouraged him a bit, but she stated he has been overall positive. She reported he has made jokes with her and been very pleasant. She reported he has appeared anxious at night and has taken a low dose of Ativan to help with his anxiety. Shanae reported Florentino is not currently prescribed anything for depression. Therapist saw Florentino alone. He reported he has been feeling good and stated he has been at [facility] for about 8 days. He reported he has felt some depression since being hospitalized the past month but denied any problems with depression before that. He reported he has noticed some loss of interest in activities and stated he has not done woodworking the past year due to not taking the time to do it. He also stated he has been unable to ride Yuri motorcycles anymore, but stated that was due to his physical health, not that he does not feel like doing it. He reported some problems sleeping that have worsened while being in the hospital. Florentino reported he did not have much of an appetite and that has been coming back recently, which is good. He denied any problems with worthlessness, guilt, problems concentrating, or suicidal or homicidal ideation. Florentino denied any problems with worry, and when asked about taking the Ativan at night stated it is due to his foot hurting, feeling the pain in his foot is worsening, and then he worrying about his foot and then struggling to fall asleep. He reported he has talked with several doctors about the pain in his foot and they are trying to improve the functioning and decrease the pain, but nothing has worked yet. He reported he does struggle with claustrophobia but stated he does not fly, ride in trains, or very small cars, so it is not an issue. Florentino reported his claustrophobia increases last December after having a surgery for opening veins in his legs, having a bad reaction to anesthesia, and then having to be hospitalized. He reported he was not worried about his more recent surgery a month ago and was hopeful it would go better than his previous one. He reported he has been told he may have to have surgery again and that has him a bit worried. We discussed his concern and he stated he was trying to stay calm because he did not know anything yet and worrying now would not do any good. Observations/Mental Status: Florentino arrived seen on the rehab unit and was alone. Overall appearance was appropriate and indicated adequate self-care. Florentino appeared to be a fair historian. Observed gait and gross motor movements indicated no clinically significant difficulties. Morenita general approach to the evaluation indicated interest. Orientation was intact for person, place, time, and situation. Florentino evidenced fair understanding of the reason for the appointment. Morenita in-session behavior was cooperative. The predominant mood was calm with affect appropriate to expressed concerns and presenting problem. Immediate attention and concentration was unremarkable clinically during the interview. Memory functioning appeared to be intact. Level of intellectual functioning compared to same age peers was estimated to be in the average range. Thought processes were found to be generally logical, coherent and goal directed. Thought content appeared normal. Psychomotor functioning was within normal limits. Tone of voice was normal and controlled. Expressive speech was marked by fluent speech and language. Eye contact was fair. Insight was fair. Overall, style of interacting during the appointment was appropriate and motivated. Current/Previous Mental Health Treatment: Past psychiatric history was denied any past treatment . History of self or other harm was denied. Current destructive behavior patterns: none indicated or reported. Family psychiatric history was reported as unremarkable. Educational and Vocational Histories: Current vocational status: currently retired. 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 Family and Social Histories: Florentino reported he is not currently but has been three times. He reported he and his first had three daughters and he now has five grandchildren. He reported most of his family lives far away now, but one is about 50 miles away. He reported he lives alone. Social contacts were reported as fair. He reported he has three or four close friends and is very close with an older brother. He reported when he had to quit riding his motorcycle he lost some friends but stated he was no longer able to pick his bike up and knew he had to stop riding. Summary of Assessment Information/Prognosis: Florentino is a 68-year-old male. 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 Overall, prognosis is estimated to be guarded. 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 At this time Florentino stated he did not feel therapy was necessary. Therapist stated since he has had a bit of depression while being hospitalized only, that is common, but if it worsens he is recommended to follow up with therapy. Therapist also stated that if his anxiety worsens or becomes more of a problem therapy would be recommended. He was told if he was told he would need to have another surgery while currently hospitalized, therapist could talk with him if he would like. He was given therapists card and agreed to call if needed. Florentino is recommended to return as needed should additional problems develop. Further disposition will be made at that time. Florentino verbalized understanding of these recommendations and an intention to comply with the proposed treatment plan and course of treatment. GARRET GIRARD Jul 02, 2019 13:00
--- NOTE | 2019-07-02 13:04 | Behavioral Health ProgressNote ---
Standard Progress Note HPI/CC on Admission CC: Critical illness debility HPI: This is a 68-year-old white male clinic patient of Dr. 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 Received report from Dr. Montesinos at [facility] in [place]. Patient was admitted there after difficulty weaning off the ventilator after he was intubated after failed noninvasive ventilator support after he was transferred from [facility] after his spinal surgery to [facility]. He remained on the ventilator for 3 weeks has some vocal cord dysfunction due to the long intubation status and most recently having urinary retention after Alves catheter was discontinued and currently has Klebsiella UTI maintained on Bactrim and Cipro double coverage because of such a significant organism. He had some significant hallucinations last week but that has been resolved. Patient currently remains on 2 L by nasal cannula of oxygen receives nebulizer treatments of DuoNeb every 6 hours and uses his home CPAP machine. His prior level of functioning was independent of ADLs and ambulation. I reviewed all of his current medications and pharmacy manager here at the hospital has confirmed accuracy and all those have been continued. He does have a PICC line in his right upper arm. Upon review of the history and physical the following information was obtained: Past medical history: diabetes mellitus on oral therapy, obstructive sleep a pnea, COPD with chronic respiratory failure, polycythemia due to chronic respiratory failure, tobacco use, chronic low back pain, peripheral neuropathy, PVD, CAD previous bypass surgery, thrombocytopenia, morbid obesity with hypoventilation syndrome, congestive heart failure with acute on chronic diastolic type with volume overload at admission to [facility], hyperlipidemia, hypertension, carpal tunnel syndrome, severe DJD of the right knee. He also has a history of SVT. Progress Notes/Assess & Plan Date Seen 07/02/19 Time Seen by Provider: 09:00 Assess & Plan/Chief Complaint Therapist spoke with his nurse yesterday to discuss results of the consult from last week, which were in his chart and dated 06-24-19, the day after he had been seen. Therapist printed out a copy of the consult from last week to give to his nurse today due to there being some difficulty in finding the consult. Florentino's current nurse, Renee, stated Florentino was asking to see therapist again. Therapist spoke with Florentino and he stated he thought he was getting scheduled for a follow up appt with therapist and was told that could be done once he has a discharge date. Therapist asked how he had been doing and feeling and he stated his mood was good. He reported he has not felt any more depressed than he previously had but stated his back has been hurting more. He reported he is not aware of his discharge date but is aware he needs to be able to use the restroom alone to be able to be discharged. Florentino reported he has continued to be worried at night about his foot and stated he feels that the capps are closing in on him. He denied any other worry. We discussed his mood and he continued to deny symptoms of depression, but he stated he feels a bit down but feels his mood will improve once he leaves the hospital. We discussed how being hosp italized for a month or longer would be difficult and would have some effect on his mood. He stated he was hopeful and did not feel he would need therapy after he was discharged but agreed to make an appt if anything changed or his mood did not improve upon discharge. He stated he would like to get outside, even if in a wheelchair, and therapist offered to speak to his nurse on that, which happened after meeting with Florentino. GARRET GIRARD Jul 02, 2019 13:04
--- NOTE | 2019-07-02 14:31 | Therapy Group Daily Note ---
Therapy Daily Group Note Patient Education Topic Exercises Exercises LE Seated Exercise, UE Exercise Session Ratio (pt:therapist): 4:1 Goal of Session: Education on ARU Expectations, UE/LE Strengthing Goal Met for this Session: Yes Pt Benefit of Group: Contributions to Others, Increased Functional Strength, Improved Cognition, Recognition of Peers, Socialization Other/Notes Pt ambulated using FWW to ARU [facility] area for OT/PT group. Group consisted of introductions (name, place living, favorite place), socialization, seated UE/LE/eye/breathing exercises, education on benefits of exercise and ARU description/expectations. Pt introduced self appropriately and actively listened to peers. Pt was able to complete exercises and tolerated well. Pt acknowledged understanding of educational topics and voiced own experiences. After therapy, pt lying in bed with call light/phone in reach. All needs met in room. Start Time: 13:00 Stop Time: 14:05 Total Billed Treatment Time: 65 Total Billed Treatment 1-GRP AMANDA WEINER Jul 02, 2019 14:31
[2019-07-02] MEDS: ROFLUMILAST 500 MCG TAB (DALIRESP) PO SCH (14:38)
[2019-07-02] MEDS: ACETAMINOPHEN 325 MG TABLET PO PRN (15:52)
[2019-07-02 17:33] VITALS: BP 130/57
[2019-07-02] MEDS: ENOXAPARIN 40 MG/0.4 ML (LOVENOX) SYR SC SCH (17:38)
[2019-07-02] MEDS: GABAPENTIN 600 MG (NEURONTIN) TAB PO SCH (21:31)
[2019-07-02] MEDS: LORazepam 0.5 MG (ATIVAN) TABLET PO PRN (21:31)
[2019-07-02] MEDS: QUEtiapine 25 MG (SEROquel) TAB IMMEDIATE RELEASE PO SCH (21:31)
[2019-07-03] MEDS: inSUlin ASPART (NovoLOG) 1 UNIT/0.01 ML (CHARGE PER UNIT) SC SCH ×4 (05:47→21:55)
[2019-07-03 06:20] VITALS: BP 121/56
[2019-07-03] MEDS: LACTOBACILLUS ACIDOPHILUS (PROBIOTIC) CAPSULE PO SCH ×4 (06:22→20:44)
[2019-07-03] MEDS: CATHETER FLUSH 10 ML SYR IV SCH ×3 (06:22→21:57)
[2019-07-03] MEDS: SILDENAFIL 20 MG (REVATIO) TAB NON-FORMULARY PO SCH ×3 (06:22→21:56)
[2019-07-03] MEDS: KCL 20 MEQ TAB (K-DUR) PO SCH (06:23)
[2019-07-03] MEDS: amLODIPine 10 MG (NORVASC) TAB PO SCH (06:23)
[2019-07-03] MEDS: PANTOPRAZOLE 40 MG (PROTONIX) TAB PO SCH (06:23)
[2019-07-03] MEDS: HYDROcodone/APAP 5 MG/325 MG (LORTAB) TAB PO PRN ×3 (06:24→20:47)
[2019-07-03 08:00] VITALS: BP 129/56
[2019-07-03] MEDS: MULTIVIT W/MINERALS TAB (THERAGRAN M) PO SCH (08:00)
--- NOTE | 2019-07-03 08:00 | NUR ---
0700 MVT WAS PULLED FROM Recorded Future, BUT NOT ADMINISTERED ON EMAR. NOT SURE IF GIVEN BY NIGHT NURSE OR NOT.
--- NOTE | 2019-07-03 08:06 | PM&R Progress Note ---
Subjective HPI/CC On Admission Date Seen by Provider: Jul 03, 2019 Time Seen by Provider: 07:30 CC: Critical illness debility HPI: This is a 68-year-old white male clinic patient of Dr. 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 Received report from Dr. Montesinos at [facility] in [place]. Patient was admitted there after difficulty weaning off the ventilator after he was intubated after failed noninvasive ventilator support after he was transferred from [facility] after his spinal surgery to [facility]. He remained on the ventilator for 3 weeks has some vocal cord dysfunction due to the long intubation status and most recently having urinary retention after Alves catheter was discontinued and currently has Klebsiella UTI maintained on Bactrim and Cipro double coverage because of such a significant organism. He had some significant hallucinations last week but that has been resolved. Patient currently remains on 2 L by nasal cannula of oxygen receives nebulizer treatments of DuoNeb every 6 hours and uses his home CPAP machine. His prior level of functioning was independent of ADLs and ambulation. I reviewed all of his current medications and pharmacy aide here at the hospital has confirmed accuracy and all those have been continued. He does have a PICC line in his right upper arm. Upon review of the history and physical the following information was obtained: Past medical history: diabetes mellitus on oral therapy, obstructive sleep apnea, COPD with chronic respiratory failure, polycythemia due to chronic respiratory failure, tobacco use, chronic low back pain, peripheral neuropathy, PVD, CAD previous bypass surgery, thrombocytopenia, morbid obesity with hypoventilation syndrome, congestive heart failure with acute on chronic diastolic type with volume overload at admission to [facility], hyperlipidemia, hypertension, carpal tunnel syndrome, severe DJD of the right knee. He also has a history of SVT. Subjective/Events-last exam Talked more about upcoming surgery to close the spinal wound Psych evaluation reviewed Oxygen maintained at 2-3 L and refuses the CPAP and BiPAP Refused Estrada wraps Bowel movements normal Conferred with RN in depth about the plan for surgery Reviewed therapy notes Review of Systems General: Fatigue Pulmonary: Dyspnea Musculoskeletal: back pain, leg pain Objective Exam Vital Signs Vital Signs Date Time Temp Pulse Resp B/P (MAP) Pulse Ox O2 Delivery O2 Flow Rate FiO2 07/04/19 14:46 93 Nasal Cannula 2.00 07/04/19 10:00 81 137/65 (89) 07/04/19 05:10 97.4 20 Capillary Refill : Less Than 3 SecondsLess Than 3 Seconds General Appearance: No Apparent Distress, WD/WN, Chronically ill, Obese HEENT: PERRL/EOMI, Normal ENT Inspection, Pharynx Normal, Moist Mucous Membranes Neck: Full Range of Motion, Normal Inspection, Non Tender, Supple Respiratory: Chest Non Tender, Lungs Clear, Normal Breath Sounds, No Accessory Muscle Use, No Respiratory Distress, Crackles (LLL subtle) Cardiovascular: Regular Rate, Rhythm, No Gallop, No JVD, No Murmur Gastrointestinal: Normal Bowel Sounds, No Organomegaly, No Pulsatile Mass, Non Tender, Soft Back: Normal Inspection, No CVA Tenderness, Decreased Range of Motion Extremity: Normal Capillary Refill, Normal Inspection, Normal Range of Motion, Non Tender, No Calf Tenderness, Pedal Edema Neurologic/Psychiatric: Alert, Oriented x3, No Motor/Sensory Deficits, factorer II- XII Norm as Tested, Depressed Affect Skin: Normal Color, Warm/Dry, Other (venous stasis dermatitis) Lymphatic: No Adenopathy Results/Procedures Lab Patient resulted labs reviewed. FIM Transfers Therapy Code Descriptions/Definitions Functional [place] Measure: 0=Not Assessed/NA 4=Minimal Assistance 1=Total Assistance 5=Supervision or Setup 2=Maximal Assistance 6=Modified [place] 3=Moderate Assistance 7=Complete [place] Therapy Quality Codes: 6 Independent with activity with or without an assistive device 5 Patient requires set up or clean up by helper. Patient completes activity by themselves 4 Supervision or touching assist (CGA). [place] provide cues , steadying assist 3 The helper provides less than half the effort to complete the activity 2 The helper provides more than half the effort to complete the activity 1 Dependent. The helper does all the effort to complete an activity 7 Patient refused to complete or attempt activity 9 The patient did not perform the activity before the current illness or injury 88 Not attempted due to Medical conditions or safety concerns Transfers (B, C, W/C) (FIM): 4 Scootin Rollin Roll Left to Right (QC): 5 Supine to/from Sit: 4 Sit to/from Stand: 4 Sit to Lying (QC): 3 Sit to Stand (QC): 3 Chair/Fqu-ib-Ayfbk Xfer(QC): 4 Bed to/from Chair: 4 Car Transfer (QC): 2 Gait Training Does the Patient Walk?: Yes Gait (FIM): 1 Distance (FIM): 2=149-77 ft (100,50x2) Distance: 30' Walk 10 feet (QC): 4 Gait Level of Assist: 4 Gait Persons Needed: 1 (plus assist for w/c, O2 and WV) Gait Assistive Device: FWW Wheelchair Training Does the Pt Use a Wheelchair?: Yes Wheelchair (FIM): 2 Wheelchair Distance: 0=374-69 ft Distance: 80' x 5 Wheelchair Level of Assist: 3 Wheel 50 ft with 2 turns (QC): 3 Wheel 150 ft (QC): 4 Type of Wheelchair: Manual Mental Status/Objective Comprehension: 7 Expression: 7 Social Interaction: 7 Problem Solvin Memory: 7 ADL-Treatment Feedin (Pt able to feed self without assist) Eating (QC): 6 Groomin Oral Hygiene (QC): 5 Bathin Bathing Location: L Arm, R Arm, Chest, Abdomen Shower/Bathe Self (QC): 3 Upper Extremity Dressin Upper Body Dressing (QC): 4 Lower Extremity Dressin Lower Body Dressing (QC): 2 On/Off Footwear (QC): 2 Toiletin (Pt. was incontinent of bowel while in bed. OT removed depend in bed, and placed bed betts per pt. request, as he had to go quickly. After toileting, OT cleansed brandyn area at bed level.) Toileting Hygiene (QC): 1 Toilet/Commode Transfer: 2 Toilet Transfer (QC): 2 Shower: 0 Assessment/Plan Assessment and Plan Assess & Plan/Chief Complaint Assessment: (1) Myopathy (2) COPD (chronic obstructive pulmonary disease) (3) Respiratory failure, acute and chronic (4) Polycythemia (5) Tobacco use (6) Back pain (7) Neuropathy (8) PVD (peripheral vascular disease) (9) Hx of CABG (10) Obesity hypoventilation syndrome (11) Hypertension (12) Renal insufficiency (13) Hyperlipemia (14) Arthritis of right knee (15) Hx of supraventricular tachycardia (16) Obesity (17) Diabetes mellitus (18) SIDNEY on CPAP (19) CO2 narcosis (20) CAD (coronary artery disease) (21) Status post lumbar spine surgery for decompression of spinal cord (22) UTI Klebsiella s/p Bactrim and Cipro then DC when added Jorge and Vanc due to wound (23) Anxiety (24) Wound dehiscence requiring bedside debridement and placement of wound vac by Dr Carrasco 06/19/19 (25) Diarrhea w/mild dehydration now resolving (26) edema (27) Left leg radiculopathy severe will place on short low dose course of IV steroids Plan: Maude Nayak, Anabelle, Rachel, Danilo are appreciated Abx changed to Jorge and Vanc for wound dehiscence and DC Cipro and Bactrim and wound vac maintained now abx regimen completed 06/27/19 Check labs prn IRF protocol Pain control Monitor closely Questran DC High risk for C diff IS use along with Nebs Continue progress of PT with ambulation Encourage use of CPAP Unsure how much recovery he will be able to obtain in IRF? Restart Lasix and potassium along with ESTRADA wraps but he refuses ESTRADA wraps Psych consult IV steroids Needs surgery Friday afternoon by Dr Carrasco because it is necessary to heal the spine wound in order to fully recover but he is high risk for fpc intubation after OR just like last surgery (1) Myopathy (2) Postoperative wound dehiscence (3) Wound drainage (4) CO2 retention (5) Hyperkalemia (6) Renal failure (7) Elevated brain natriuretic peptide (BNP) level (8) Clot retention of urine (9) COPD (chronic obstructive pulmonary disease) (10) Polycythemia (11) Diabetes mellitus (12) Back pain (13) CAD (coronary artery disease) (14) Hyperlipemia (15) Neuropathy (16) Renal insufficiency (17) PVD (peripheral vascular disease) (18) Hypertension (19) Obesity (20) Respiratory failure, acute and chronic (21) Arthritis of right knee (22) Obesity hypoventilation syndrome (23) CO2 narcosis (24) ISDNEY on CPAP (25) Hx of supraventricular tachycardia (26) Decubitus ulcer (27) Urinary retention (28) BPH (benign prostatic hyperplasia) (29) UTI due to Klebsiella species (30) Hx of CABG (31) Status post lumbar spine surgery for decompression of spinal cord (32) Tobacco use JASPER LONG DO Jul 03, 2019 08:06
[2019-07-03] MEDS: FUROSEMIDE 40 MG (LASIX) TAB PO SCH (09:08)
[2019-07-03] MEDS: TAMSULOSIN 0.4 MG (FLOMAX) CAP PO SCH (09:08)
[2019-07-03] MEDS: GABAPENTIN 300 MG (NEURONTIN) CAP PO SCH (09:08)
[2019-07-03] MEDS: THEOPHYLLINE ER 400 MG TAB (THEO-24) PO SCH (09:09)
[2019-07-03] MEDS: CATHETER FLUSH 10 ML SYR IV PRN (09:10)
[2019-07-03] MEDS: methylPREDNISolone 40 MG/ML (Solu-MEDROL) VIAL IV SCH (09:10)
[2019-07-03] MEDS: meTOprolol TARTRATE 25 MG (LOPRESSOR) TABLET PO SCH ×2 (09:17→20:47)
[2019-07-03] MEDS: DICLOFENAC 1% GEL 100 GM (VOLTAREN) TUBE TOP SCH ×4 (09:17→20:49)
--- NOTE | 2019-07-03 10:00 | NUR ---
ABLE TO STAND UP ON OWN MUCH BETTER COMPARED TO 2 DAYS AGO. CONTINUES TO HAVE LEFT FOOT PAIN, BUT STATES SOMEWHAT BETTER TODAY. REFUSES VARUN WRAPS AT THIS TIME. O2 ON AT 2L. ADMITS TO SOME SOB WITH EXERTION.
[2019-07-03] MEDS: RT-ALBUTEROL/IPRATROPIUM 3 ML (DUONEB) VIAL INH SCH ×3 (10:04→19:53)
--- NOTE | 2019-07-03 10:05 | Physical Therapy Daily Note ---
PT Daily Note-Current Subjective States that he is doing well. Pain Numeric Pain Scale: 0-No Pain Transfers Therapy Code Descriptions/Definitions Functional [place] Measure: 0=Not Assessed/NA 4=Minimal Assistance 1=Total Assistance 5=Supervision or Setup 2=Maximal Assistance 6=Modified [place] 3=Moderate Assistance 7=Complete [place] Therapy Quality Codes: 6 Independent with activity with or without an assistive device 5 Patient requires set up or clean up by helper. Patient completes activity by themselves 4 Supervision or touching assist (CGA). [place] provide cues , steadying assist 3 The helper provides less than half the effort to complete the activity 2 The helper provides more than half the effort to complete the activity 1 Dependent. The helper does all the effort to complete an activity 7 Patient refused to complete or attempt activity 9 The patient did not perform the activity before the current illness or injury 88 Not attempted due to Medical conditions or safety concerns Transfers (B, C, W/C) (FIM): 4 Scootin Rollin Sit to/from Stand: 5 Gait Training Gait (FIM): 2 Distance (FIM): 3=229-55 ft Distance: 75' Gait Level of Assist: 5 Gait Persons Needed: 2 Gait Assistive Device: FWW Assessment Current Status: Excellent Progress The patient had fatigue after ambulating. PT Short Term Goals Short Term Goals Time Frame: Jun 25, 2019 Transfers (B,C,W/C) (FIM): 3 Gait (FIM): 1 Gait Distance Comment: 5' Gait Level of Assist: 3 Gait Assistive Device: FWW Wheelchair Distance: 80' x 5 PT Supervisor Tan Room Goals Supervisor Tan Room Goals PT Skilled Nursing Goals Time Frame: Jul 09, 2019 Transfers (B,C,W/C) (FIM): 4 Sit to Lying (QC): 4 Lying-Sitting on Side/Bed(QC): 4 Sit to Stand (QC): 3 Rollin Roll Left to Right (QC): 4 Chair/Eum-fy-Zukae Xfer(QC): 3 Car Transfer (QC): 3 Gait (FIM): 1 Distance: 20' Walk 10 feet (QC): 3 Walk 10ft-Uneven Surface(QC): 3 Gait Level of Assist: 4 Gait Assistive Device: FWW Wheelchair (FIM): 6 Distance: 150' Wheelchair Level of Assist: 5 Wheel 50 feet with 2 turns (QC: 4 PT Plan Treatment/Plan Treatment Plan: Continue Plan of Care Treatment Plan: Bed Mobility, Concurrent Therapy, Education, Functional Activity Leo, Functional Strength, Group Therapy, Gait, Safety, Therapeutic Exercise, Transfers Treatment Duration: Jul 09, 2019 Frequency: At least 5 of 7 days/Wk (IRF) Estimated Hrs Per Day: 1.5 hours per day Patient and/or Family Agrees t: Yes Time/GCodes Time In: 0942 Time Out: 1000 Total Billed Treatment Time: 18 Total Billed Treatment 1, GT DAYNA FOSTER PT Jul 03, 2019 10:04
[2019-07-03] MEDS: ROFLUMILAST 500 MCG TAB (DALIRESP) PO SCH (13:50)
[2019-07-03] MEDS: LORazepam 0.5 MG (ATIVAN) TABLET PO PRN ×2 (15:00→21:25)
[2019-07-03 16:02] VITALS: BP 126/59
[2019-07-03] MEDS: ENOXAPARIN 40 MG/0.4 ML (LOVENOX) SYR SC SCH (16:51)
--- NOTE | 2019-07-03 19:19 | NUR ---
bedside report received from KELLIE LOUIE, assume care of pt
[2019-07-03] MEDS: GABAPENTIN 600 MG (NEURONTIN) TAB PO SCH (20:44)
[2019-07-03] MEDS: QUEtiapine 25 MG (SEROquel) TAB IMMEDIATE RELEASE PO SCH (20:44)
[2019-07-03 20:45] VITALS: BP 136/62
--- NOTE | 2019-07-03 20:45 | NUR ---
assessments & interventions completed, see assessments & interventions up & down to w/c & back to bed with 1 person assist & walker
--- NOTE | 2019-07-03 20:47 | NUR ---
c/o back pain level 4/10 on numeric scale, Lortab 5 1 tab po given
--- NOTE | 2019-07-03 21:10 | NUR ---
rates pain level 2/10 on numeric scale
--- NOTE | 2019-07-03 21:25 | NUR ---
asking for something for nerves Ativan 0.25mg po given
--- NOTE | 2019-07-03 21:55 | NUR ---
fsbs 265 NovoLog 5 units given
[2019-07-04] MEDS: HYDROcodone/APAP 5 MG/325 MG (LORTAB) TAB PO PRN ×2 (03:41→10:20)
--- NOTE | 2019-07-04 03:41 | NUR ---
c/o back pain level 5/10 on numeric scale, Lortab 5 1 tab po given
--- NOTE | 2019-07-04 04:15 | NUR ---
resting quietly in bed, pain level 0/10 on flacc scale
[2019-07-04 05:10] VITALS: BP 121/56
[2019-07-04] MEDS: amLODIPine 10 MG (NORVASC) TAB PO SCH (06:14)
[2019-07-04] MEDS: PANTOPRAZOLE 40 MG (PROTONIX) TAB PO SCH (06:14)
[2019-07-04] MEDS: LACTOBACILLUS ACIDOPHILUS (PROBIOTIC) CAPSULE PO SCH ×4 (06:14→20:10)
[2019-07-04] MEDS: SILDENAFIL 20 MG (REVATIO) TAB NON-FORMULARY PO SCH ×3 (06:15→22:25)
[2019-07-04] MEDS: inSUlin ASPART (NovoLOG) 1 UNIT/0.01 ML (CHARGE PER UNIT) SC SCH ×4 (06:15→20:30)
[2019-07-04] MEDS: KCL 20 MEQ TAB (K-DUR) PO SCH (06:15)
[2019-07-04] MEDS: MULTIVIT W/MINERALS TAB (THERAGRAN M) PO SCH (06:15)
[2019-07-04] MEDS: CATHETER FLUSH 10 ML SYR IV SCH ×3 (06:16→22:26)
--- NOTE | 2019-07-04 07:15 | NUR ---
bedside report given to KELLIE LOUIE
[2019-07-04] MEDS: RT-ALBUTEROL/IPRATROPIUM 3 ML (DUONEB) VIAL INH SCH ×3 (07:24→19:25)
[2019-07-04] MEDS: DICLOFENAC 1% GEL 100 GM (VOLTAREN) TUBE TOP SCH ×4 (09:00→20:13)
[2019-07-04 10:00] VITALS: BP 137/65
[2019-07-04] MEDS: FUROSEMIDE 40 MG (LASIX) TAB PO SCH (10:09)
[2019-07-04] MEDS: GABAPENTIN 300 MG (NEURONTIN) CAP PO SCH (10:09)
[2019-07-04] MEDS: THEOPHYLLINE ER 400 MG TAB (THEO-24) PO SCH (10:09)
[2019-07-04] MEDS: meTOprolol TARTRATE 25 MG (LOPRESSOR) TABLET PO SCH ×2 (10:09→20:11)
[2019-07-04] MEDS: methylPREDNISolone 40 MG/ML (Solu-MEDROL) VIAL IV SCH (10:10)
[2019-07-04] MEDS: CATHETER FLUSH 10 ML SYR IV PRN (10:10)
[2019-07-04] MEDS: TAMSULOSIN 0.4 MG (FLOMAX) CAP PO SCH (10:15)
--- NOTE | 2019-07-04 12:52 | PM&R Progress Note ---
Subjective HPI/CC On Admission Date Seen by Provider: Jul 04, 2019 Time Seen by Provider: 12:30 CC: Critical illness debility HPI: This is a 68-year-old white male clinic patient of Dr. 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 Received report from Dr. Montesinos at [facility] in [place]. Patient was admitted there after difficulty weaning off the ventilator after he was intubated after failed noninvasive ventilator support after he was transferred from [facility] after his spinal surgery to [facility]. He remained on the ventilator for 3 weeks has some vocal cord dysfunction due to the long intubation status and most recently having urinary retention after Alves catheter was discontinued and currently has Klebsiella UTI maintained on Bactrim and Cipro double coverage because of such a significant organism. He had some significant hallucinations last week but that has been resolved. Patient currently remains on 2 L by nasal cannula of oxygen receives nebulizer treatments of DuoNeb every 6 hours and uses his home CPAP machine. His prior level of functioning was independent of ADLs and ambulation. I reviewed all of his current medications and pharmacy sales representative here at the hospital has confirmed accuracy and all those have been continued. He does have a PICC line in his right upper arm. Upon review of the history and physical the following information was obtained: Past medical history: diabetes mellitus on oral therapy, obstructive sleep apnea, COPD with chronic respiratory failure, polycythemia due to chronic respiratory failure, tobacco use, chronic low back pain, peripheral neuropathy, PVD, CAD previous bypass surgery, thrombocytopenia, morbid obesity with hypoventilation syndrome, congestive heart failure with acute on chronic diastolic type with volume overload at admission to [facility], hyperlipidemia, hypertension, carpal tunnel syndrome, severe DJD of the right knee. He also has a history of SVT. Subjective/Events-last exam Having real difficulty with pain today Just cannot get comfortable We will discontinue IV steroids in preparation for surgery tomorrow Understands that he must have the surgery since the spinal wound dehiscence will not heal Put a hold on Lovenox Plan for surgery by Dr. Carrasco tomorrow Check meds and labs DC'd hydrocodone and started Percocet for additional pain control Conferred with RN Reviewed therapy notes Patient transferring a lot better now Review of Systems Pulmonary: Dyspnea Musculoskeletal: back pain Objective Exam Vital Signs Vital Signs Date Time Temp Pulse Resp B/P (MAP) Pulse Ox O2 Delivery O2 Flow Rate FiO2 07/04/19 14:46 93 Nasal Cannula 2.00 07/04/19 10:00 81 137/65 (89) 07/04/19 05:10 97.4 20 Capillary Refill : Less Than 3 SecondsLess Than 3 Seconds General Appearance: No Apparent Distress, WD/WN, Chronically ill, Obese HEENT: PERRL/EOMI, Normal ENT Inspection, Pharynx Normal, Moist Mucous Membranes Neck: Full Range of Motion, Normal Inspection, Non Tender, Supple Respiratory: Chest Non Tender, Lungs Clear, Normal Breath Sounds, No Accessory Muscle Use, No Respiratory Distress, Crackles (LLL subtle) Cardiovascular: Regular Rate, Rhythm, No Gallop, No JVD, No Murmur Gastrointestinal: Normal Bowel Sounds, No Organomegaly, No Pulsatile Mass, Non Tender, Soft Back: Normal Inspection, No CVA Tenderness, Decreased Range of Motion Extremity: Normal Capillary Refill, Normal Inspection, Normal Range of Motion, Non Tender, No Calf Tenderness, Pedal Edema Neurologic/Psychiatric: Alert, Oriented x3, No Motor/Sensory Deficits, spider assembler II- XII Norm as Tested, Depressed Affect Skin: Normal Color, Warm/Dry, Other (venous stasis dermatitis) Lymphatic: No Adenopathy Results/Procedures Lab Patient resulted labs reviewed. FIM Transfers Therapy Code Descriptions/Definitions Functional [place] Measure: 0=Not Assessed/NA 4=Minimal Assistance 1=Total Assistance 5=Supervision or Setup 2=Maximal Assistance 6=Modified [place] 3=Moderate Assistance 7=Complete [place] Therapy Quality Codes: 6 Independent with activity with or without an assistive device 5 Patient requires set up or clean up by helper. Patient completes activity by themselves 4 Supervision or touching assist (CGA). [place] provide cues , steadying assist 3 The helper provides less than half the effort to complete the activity 2 The helper provides more than half the effort to complete the activity 1 Dependent. The helper does all the effort to complete an activity 7 Patient refused to complete or attempt activity 9 The patient did not perform the activity before the current illness or injury 88 Not attempted due to Medical conditions or safety concerns Transfers (B, C, W/C) (FIM): 4 Scootin Rollin Roll Left to Right (QC): 5 Supine to/from Sit: 4 Sit to/from Stand: 5 Sit to Lying (QC): 3 Sit to Stand (QC): 3 Chair/Obm-td-Rsrzh Xfer(QC): 4 Bed to/from Chair: 4 Car Transfer (QC): 2 Gait Training Does the Patient Walk?: Yes Gait (FIM): 2 Distance (FIM): 1=449-36 ft Distance: 75' Walk 10 feet (QC): 4 Gait Level of Assist: 5 Gait Persons Needed: 2 Gait Assistive Device: FWW Wheelchair Training Does the Pt Use a Wheelchair?: Yes Wheelchair (FIM): 2 Wheelchair Distance: 7=735-83 ft Distance: 80' x 5 Wheelchair Level of Assist: 3 Wheel 50 ft with 2 turns (QC): 3 Wheel 150 ft (QC): 4 Type of Wheelchair: Manual Mental Status/Objective Comprehension: 7 Expression: 7 Social Interaction: 7 Problem Solvin Memory: 7 ADL-Treatment Feedin (Pt able to feed self without assist) Eating (QC): 6 Groomin Oral Hygiene (QC): 5 Bathin Bathing Location: L Arm, R Arm, Chest, Abdomen Shower/Bathe Self (QC): 3 Upper Extremity Dressin Upper Body Dressing (QC): 4 Lower Extremity Dressin Lower Body Dressing (QC): 2 On/Off Footwear (QC): 2 Toiletin (Pt. was incontinent of bowel while in bed. OT removed depend in bed, and placed bed betts per pt. request, as he had to go quickly. After toileting, OT cleansed brandyn area at bed level.) Toileting Hygiene (QC): 1 Toilet/Commode Transfer: 2 Toilet Transfer (QC): 2 Shower: 0 Assessment/Plan Assessment and Plan Assess & Plan/Chief Complaint Assessment: (1) Myopathy (2) COPD (chronic obstructive pulmonary disease) (3) Respiratory failure, acute and chronic (4) Polycythemia (5) Tobacco use (6) Back pain (7) Neuropathy (8) PVD (peripheral vascular disease) (9) Hx of CABG (10) Obesity hypoventilation syndrome (11) Hypertension (12) Renal insufficiency (13) Hyperlipemia (14) Arthritis of right knee (15) Hx of supraventricular tachycardia (16) Obesity (17) Diabetes mellitus (18) SIDNEY on CPAP (19) CO2 narcosis (20) CAD (coronary artery disease) (21) Status post lumbar spine surgery for decompression of spinal cord (22) UTI Klebsiella s/p Bactrim and Cipro then DC when added Jorge and Vanc due to wound (23) Anxiety (24) Wound dehiscence requiring bedside debridement and placement of wound vac by Dr Carrasco 06/19/19 (25) Diarrhea w/mild dehydration now resolving (26) edema (27) Left leg radiculopathy severe will place on short low dose course of IV hansel roids Plan: Maude Nayak, Anabelle, Rachel, Danilo are appreciated Abx changed to Jorge and Vanc for wound dehiscence and DC Cipro and Bactrim and wound vac maintained now abx regimen completed 06/27/19 Check labs in am IRF protocol Pain control with DC Lortab and started Percocet Monitor closely Questran DC High risk for C diff for any abx in future IS use along with Nebs Continue progress of PT with ambulation Encourage use of CPAP but refuses most of the time OR tomorrow Dr Carrasco Restart Lasix and potassium along with VARUN wraps but he refuses VARUN wraps and that seems to really helped the edema Psych consult reviewed IV steroids DC Needs surgery Friday afternoon by Dr Carrasco because it is necessary to heal the spine wound in order to fully recover but he is high risk for rodent exterminator intubation after OR just like last surgery (1) Myopathy (2) Postoperative wound dehiscence (3) Wound drainage (4) CO2 retention (5) Hyperkalemia (6) Renal failure (7) Elevated brain natriuretic peptide (BNP) level (8) Clot retention of urine (9) COPD (chronic obstructive pulmonary disease) (10) Polycythemia (11) Diabetes mellitus (12) Back pain (13) CAD (coronary artery disease) (14) Hyperlipemia (15) Neuropathy (16) Renal insufficiency (17) PVD (peripheral vascular disease) (18) Hypertension (19) Obesity (20) Respiratory failure, acute and chronic (21) Arthritis of right knee (22) Obesity hypoventilation syndrome (23) CO2 narcosis (24) SIDNEY on CPAP (25) Hx of supraventricular tachycardia (26) Decubitus ulcer (27) Urinary retention (28) BPH (benign prostatic hyperplasia) (29) UTI due to Klebsiella species (30) Hx of CABG (31) Status post lumbar spine surgery for decompression of spinal cord (32) Tobacco use LONG,JASPER DO Jul 04, 2019 12:51
--- NOTE | 2019-07-04 14:00 | NUR ---
CHECKED WITH DR. PEREIRA ON CLARIFICATION OF SURGERY AND WILL BE NPO AFTER MIDNIGHT AND CONSENT WILL BE SIGNED. CONTINUES TO GET UP FREQUENTLY TO SIDE OF BED AND TO WHEELCHAIR. STATES NO CHAIR OR BED IS COMFORTABLE. STATES HE DOES LIKE THE BED IN THE GYM, BUT OTHERWISE CANNOT GET COMFORTABLE ON ANYTHING. FEELS PAIN IS LEFT FOOT AND BOTTOM IS NOT ADEQUATELY CONTROLLED AND HAS BEEN CHANGED TO PERCOCET.
[2019-07-04] MEDS: ROFLUMILAST 500 MCG TAB (DALIRESP) PO SCH (14:40)
[2019-07-04] MEDS: LORazepam 0.5 MG (ATIVAN) TABLET PO PRN (14:44)
[2019-07-04 16:21] VITALS: BP 145/64
[2019-07-04] MEDS: oxyCODONE/APAP 5/325MG (PERCOCET 5) TABLET PO PRN ×2 (16:37→20:11)
--- NOTE | 2019-07-04 19:11 | NUR ---
bedside report received from KELLIE LOUIE, assume care of pt
[2019-07-04] MEDS: GABAPENTIN 600 MG (NEURONTIN) TAB PO SCH (20:10)
[2019-07-04] MEDS: QUEtiapine 25 MG (SEROquel) TAB IMMEDIATE RELEASE PO SCH (20:11)
--- NOTE | 2019-07-04 20:11 | NUR ---
c/o back pain level 3/10 on numeric scale, Percocet 5/325 1 tab po given
--- NOTE | 2019-07-04 20:20 | NUR ---
assessments & interventions completed, see assessments & interventions
--- NOTE | 2019-07-04 20:30 | NUR ---
fsbs 368 NovoLog 9 units given
--- NOTE | 2019-07-04 21:00 | NUR ---
rates pain level 2/10 on numeric scale
[2019-07-05] VITALS (9 sets, daily range): BP systolic 119–156; BP diastolic 52–73
[2019-07-05] MEDS: oxyCODONE/APAP 5/325MG (PERCOCET 5) TABLET PO PRN ×3 (00:03→23:45)
--- NOTE | 2019-07-05 00:03 | NUR ---
c/o back pain level 3/10 on numeric scale, Percocet 5/325 1 tab po given
--- NOTE | 2019-07-05 00:42 | NUR ---
resting quietly in bed, pain level 0/10 on flacc scale
[2019-07-05 05:15] LABS: BASOPHILS % (AUTO) 0 % (0-10); EOSINOPHILS % (AUTO) 0 % (0-10); HEMATOCRIT 27 % (40-54); HEMOGLOBIN 7.9 G/DL (13.3-17.7); LYMPHOCYTES # (AUTO) 1.2 X 10^3 (1.0-4.0); LYMPHOCYTES % (AUTO) 19 % (12-44); MEAN CORPUSCULAR HEMOGLOBIN 27 PG (25-34); MEAN CORPUSCULAR HGB CONC 29 G/DL (32-36); MEAN CORPUSCULAR VOLUME 92 FL (80-99); MEAN PLATELET VOLUME 9.9 FL (7.4-10.4); MONOCYTES # (AUTO) 0.5 X 10^3 (0.0-1.0); MONOCYTES % (AUTO) 8 % (0-12); NEUTROPHILS # (AUTO) 4.8 X 10^3 (1.8-7.8); NEUTROPHILS % (AUTO) 73 % (42-75); PLATELET COUNT 262 10^3/uL (130-400); RED CELL DISTRIBUTION WIDTH 17.6 % (10.0-14.5); WHITE BLOOD COUNT 6.5 10^3/uL (4.3-11.0)
[2019-07-05 05:34] LABS: ALANINE AMINOTRANSFERASE 44 U/L (0-55); ALBUMIN 3.3 GM/DL (3.2-4.5); ALKALINE PHOSPHATASE 117 U/L (40-136); BILIRUBIN,TOTAL 0.3 MG/DL (0.1-1.0); BUN/CREATININE RATIO 28; CALCIUM 9.1 MG/DL (8.5-10.1); CARBON DIOXIDE 28 MMOL/L (21-32); CHLORIDE 98 MMOL/L (98-107); CREATININE SERUM 1.13 MG/DL (0.60-1.30); GFR ESTIMATED > 60; GLUCOSE 162 MG/DL (70-105); POTASSIUM 4.4 MMOL/L (3.6-5.0); SODIUM 140 MMOL/L (135-145); TOTAL PROTEIN 7.2 GM/DL (6.4-8.2)
[2019-07-05] MEDS: SILDENAFIL 20 MG (REVATIO) TAB NON-FORMULARY PO SCH ×3 (06:00→22:32)
[2019-07-05] MEDS: LACTOBACILLUS ACIDOPHILUS (PROBIOTIC) CAPSULE PO SCH ×4 (06:00→20:35)
[2019-07-05] MEDS: CATHETER FLUSH 10 ML SYR IV SCH ×3 (06:00→22:32)
[2019-07-05] MEDS: inSUlin ASPART (NovoLOG) 1 UNIT/0.01 ML (CHARGE PER UNIT) SC SCH ×4 (06:00→21:52)
[2019-07-05] MEDS: KCL 20 MEQ TAB (K-DUR) PO SCH (06:00)
[2019-07-05] MEDS: amLODIPine 10 MG (NORVASC) TAB PO SCH (06:00)
--- NOTE | 2019-07-05 06:00 | NUR ---
SURGICAL BED BATH GIVEN TO PT, HOSPITAL GOWN ON, FSBS 174 NO SS INSULIN & PT NPO
[2019-07-05] MEDS: MULTIVIT W/MINERALS TAB (THERAGRAN M) PO SCH (07:00)
[2019-07-05] MEDS: PANTOPRAZOLE 40 MG (PROTONIX) TAB PO SCH (07:00)
--- NOTE | 2019-07-05 07:12 | NUR ---
BEDSIDE REPORT GIVEN TO EARNEST LOUIE
--- NOTE | 2019-07-05 07:47 | PM&R Progress Note ---
[facility] 07/05/19 0747: Subjective HPI/CC On Admission Date Seen by Provider: Jul 05, 2019 Time Seen by Provider: 07:40 CC: Critical illness debility HPI: This is a 68-year-old white male clinic patient of Dr. 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 Received report from Dr. Montesinos at [facility] in [place]. Patient was admitted there after difficulty weaning off the ventilator after he was intubated after failed noninvasive ventilator support after he was transferred from [facility] after his spinal surgery to [facility]. He remained on the ventilator for 3 weeks has some vocal cord dysfunction due to the long intubation status and most recently having urinary retention after Alves catheter was discontinued and currently has Klebsiella UTI maintained on Bactrim and Cipro double coverage because of such a significant organism. He had some significant hallucinations last week but that has been resolved. Patient currently remains on 2 L by nasal cannula of oxygen receives nebulizer treatments of DuoNeb every 6 hours and uses his home CPAP machine. His prior level of functioning was independent of ADLs and ambulation. I reviewed all of his current medications and pharmacy customer care specialist here at the hospital has confirmed accuracy and all those have been continued. He does have a PICC line in his right upper arm. Upon review of the history and physical the following information was obtained: Past medical history: diabetes mellitus on oral therapy, obstructive sleep apnea, COPD with chronic respiratory failure, polycythemia due to chronic respiratory failure, tobacco use, chronic low back pain, peripheral neuropathy, PVD, CAD previous bypass surgery, thrombocytopenia, morbid obesity with hypoventilation syndrome, congestive heart failure with acute on chronic diastolic type with volume overload at admission to [facility], hyperlipidemia, hypertension, carpal tunnel syndrome, severe DJD of the right knee. He also has a history of SVT. Subjective/Events-last exam Spoke with Florentino this morning and he is in a very calm mood. I spoke to him about his surgery today and he stated that he is nervous because of what anesthesia does to him. Has bowel movements and is urinating (catheter) Still has pain in left foot 2/10 Back pain is still present but states it is more like a nagging pain Patient is NPO for surgery Patient could not tolerate VARUN wraps on his legs Reviewed PT notes and patient is making excellent progress Patient denies any additional problems or questions at this time Labs show that Hgb is still low at 7.9 Glucose is better today but still at 174 AST is slightly elevated at 57 BUN/CR is 32/1.13 Focused Exam Respiratory: Lungs Clear Cardiovascular: Regular Rate, Rhythm Peripheral Pulses: 2+ Radial Pulses (R), 2+ Radial Pulses (L) Objective Exam Vital Signs Vital Signs Date Time Temp Pulse Resp B/P (MAP) Pulse Ox O2 Delivery O2 Flow Rate FiO2 07/05/19 08:40 71 20 147/62 (90) 98 Nasal Cannula 2.00 07/05/19 05:55 97.6 Capillary Refill : Less Than 3 SecondsLess Than 3 Seconds General Appearance: No Apparent Distress, WD/WN, Chronically ill, Obese, Other (nervous about surgery this afternoon) HEENT: PERRL/EOMI, Normal ENT Inspection, Pharynx Normal, Moist Mucous Membranes Neck: Full Range of Motion, Normal Inspection, Non Tender, Supple Respiratory: Chest Non Tender, Lungs Clear, Normal Breath Sounds, No Accessory Muscle Use, No Respiratory Distress, Crackles (LLL subtle) Cardiovascular: Regular Rate, Rhythm, No Gallop, No JVD, No Murmur Gastrointestinal: Normal Bowel Sounds, No Organomegaly, No Pulsatile Mass, Non Tender, Soft Back: Normal Inspection, No CVA Tenderness, Decreased Range of Motion Extremity: Normal Capillary Refill, Normal Inspection, Normal Range of Motion, Non Tender, No Calf Tenderness, Pedal Edema Neurologic/Psychiatric: Alert, Oriented x3, No Motor/Sensory Deficits, backfiller II- XII Norm as Tested, Depressed Affect Skin: Normal Color, Warm/Dry, Other (venous stasis dermatitis) Lymphatic: No Adenopathy Results/Procedures Lab Laboratory Tests 07/05/19 05:03 Patient resulted labs reviewed. FIM Transfers Therapy Code Descriptions/Definitions Functional [place] Measure: 0=Not Assessed/NA 4=Minimal Assistance 1=Total Assistance 5=Supervision or Setup 2=Maximal Assistance 6=Modified [place] 3=Moderate Assistance 7=Complete [place] Therapy Quality Codes: 6 Independent with activity with or without an assistive device 5 Patient requires set up or clean up by helper. Patient completes activity by themselves 4 Supervision or touching assist (CGA). [place] provide cues , steadying ann-marie t 3 The helper provides less than half the effort to complete the activity 2 The helper provides more than half the effort to complete the activity 1 Dependent. The helper does all the effort to complete an activity 7 Patient refused to complete or attempt activity 9 The patient did not perform the activity before the current illness or injury 88 Not attempted due to Medical conditions or safety concerns Transfers (B, C, W/C) (FIM): 4 Scootin Rollin Roll Left to Right (QC): 5 Supine to/from Sit: 4 Sit to/from Stand: 5 Sit to Lying (QC): 3 Sit to Stand (QC): 3 Chair/Dpi-xf-Qizhx Xfer(QC): 4 Bed to/from Chair: 4 Car Transfer (QC): 2 Gait Training Does the Patient Walk?: Yes Gait (FIM): 2 Distance (FIM): 9=367-64 ft Distance: 75' Walk 10 feet (QC): 4 Gait Level of Assist: 5 Gait Persons Needed: 2 Gait Assistive Device: FWW Wheelchair Training Does the Pt Use a Wheelchair?: Yes Wheelchair (FIM): 2 Wheelchair Distance: 1=237-51 ft Distance: 80' x 5 Wheelchair Level of Assist: 3 Wheel 50 ft with 2 turns (QC): 3 Wheel 150 ft (QC): 4 Type of Wheelchair: Manual Mental Status/Objective Comprehension: 7 Expression: 7 Social Interaction: 7 Problem Solvin Memory: 7 ADL-Treatment Feedin (Pt able to feed self without assist) Eating (QC): 6 Groomin Oral Hygiene (QC): 5 Bathin Bathing Location: L Arm, R Arm, Chest, Abdomen Shower/Bathe Self (QC): 3 Upper Extremity Dressin Upper Body Dressing (QC): 4 Lower Extremity Dressin Lower Body Dressing (QC): 2 On/Off Footwear (QC): 2 Toiletin (Pt. was incontinent of bowel while in bed. OT removed depend in bed, and placed bed betts per pt. request, as he had to go quickly. After toileting, OT cleansed brandyn area at bed level.) Toileting Hygiene (QC): 1 Toilet/Commode Transfer: 2 Toilet Transfer (QC): 2 Shower: 0 Assessment/Plan Assessment and Plan Assess & Plan/Chief Complaint Assessment and Plan Assess & Plan/Chief Complaint Assessment: (1) Myopathy (2) COPD (chronic obstructive pulmonary disease) (3) Respiratory failure, acute and chronic (4) Polycythemia (5) Tobacco use (6) Back pain (7) Neuropathy (8) PVD (peripheral vascular disease) (9) Hx of CABG (10) Obesity hypoventilation syndrome (11) Hypertension (12) Renal insufficiency (13) Hyperlipemia (14) Arthritis of right knee (15) Hx of supraventricular tachycardia (16) Obesity (17) Diabetes mellitus (18) SIDNEY on CPAP (19) CO2 narcosis (20) CAD (coronary artery disease) (21) Status post lumbar spine surgery for decompression of spinal cord (22) UTI Klebsiella s/p Bactrim and Cipro then DC when added Jorge and Vanc due to wound (23) Anxiety (24) Wound dehiscence requiring bedside debridement and placement of wound vac by Dr Carrasco 06/19/19 (25) Diarrhea w/mild dehydration now resolving (26) edema (27) Left leg radiculopathy severe will place on short low dose course of IV steroids Plan: Check labs this afternoon (CBC w/diff, CMP) Monitor closely after surgery IRF protocol Pain control High risk for C diff for any abx in future IS use along with Nebs Continue progress of PT with ambulation once cleared by surgery Encourage use of CPAP but refuses most of the time Continue to try and encourage VARUN wrap usage even though he is refusing Pay close attention after surgery due to patients history of intubation after surgical procedures Monitor I/O Continue to monitor glucose control Evaluate patients left foot if pain worsens Consult wound care to make sure they are aware of patient coming out from surgery so they can continue to monitor. (1) Myopathy (2) Postoperative wound dehiscence (3) Wound drainage (4) CO2 retention (5) Hyperkalemia (6) Renal failure (7) Elevated brain natriuretic peptide (BNP) level (8) Clot retention of urine (9) COPD (chronic obstructive pulmonary disease) (10) Polycythemia (11) Diabetes mellitus (12) Back pain (13) CAD (coronary artery disease) (14) Hyperlipemia (15) Neuropathy (16) Renal insufficiency (17) PVD (peripheral vascular disease) (18) Hypertension (19) Obesity (20) Respiratory failure, acute and chronic (21) Arthritis of right knee (22) Obesity hypoventilation syndrome (23) CO2 narcosis (24) SIDNEY on CPAP (25) Hx of supraventricular tachycardia (26) Decubitus ulcer (27) Urinary retention (28) BPH (benign prostatic hyperplasia) (29) UTI due to Klebsiella species (30) Hx of CABG (31) Status post lumbar spine surgery for decompression of spinal cord (32) Tobacco use CINTIA LONG DO 07/05/192023: Supervisory-Addendum Brief Verification & Attestation Time: Verification & Attestat.: 09:00 Participated in pt care: history, MDM, physical Personally performed: exam, history, MDM, supervision of care Care discussed with: Medical Student Procedures: n/a Results interpretation: Verified all documentation Verification and Attestation of Medical Student E/M Service A medical student performed and documented this service in my presence. I reviewed and verified all information documented by the medical student and made modifications to such information, when appropriate. I personally performed the physical exam and medical decision making. Cintia Long Jul 05, 2019,20:24 [facility] Jul 05, 2019 07:47 CINTIA LONG DO Jul 05, 2019 20:24
[2019-07-05] MEDS: RT-ALBUTEROL/IPRATROPIUM 3 ML (DUONEB) VIAL INH SCH ×3 (08:31→23:34)
--- NOTE | 2019-07-05 09:37 | PM&R Progress Note ---
Subjective HPI/CC On Admission Date Seen by Provider: Jul 05, 2019 Time Seen by Provider: 09:00 CC: Critical illness debility HPI: This is a 68-year-old white male clinic patient of Dr. 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 Received report from Dr. Montesinos at [facility] in [place]. Patient was admitted there after difficulty weaning off the ventilator after he was intubated after failed noninvasive ventilator support after he was transferred from [facility] after his spinal surgery to [facility]. He remained on the ventilator for 3 weeks has some vocal cord dysfunction due to the long intubation status and most recently having urinary retention after Alves catheter was discontinued and currently has Klebsiella UTI maintained on Bactrim and Cipro double coverage because of such a significant organism. He had some significant hallucinations last week but that has been resolved. Patient currently remains on 2 L by nasal cannula of oxygen receives nebulizer treatments of DuoNeb every 6 hours and uses his home CPAP machine. His prior level of functioning was independent of ADLs and ambulation. I reviewed all of his current medications and configuration technician here at the hospital has confirmed accuracy and all those have been continued. He does have a PICC line in his right upper arm. Upon review of the history and physical the following information was obtained: Past medical history: diabetes mellitus on oral therapy, obstructive sleep apnea, COPD with chronic respiratory failure, polycythemia due to chronic respiratory failure, tobacco use, chronic low back pain, peripheral neuropathy, PVD, CAD previous bypass surgery, thrombocytopenia, morbid obesity with hypoventilation syndrome, congestive heart failure with acute on chronic diastolic type with volume overload at admission to [facility], hyperlipidemia, hypertension, carpal tunnel syndrome, severe DJD of the right knee. He also has a history of SVT. Subjective/Events-last exam Spoke with Florentino this morning and he is in a very calm mood. I spoke to him about his surgery today and he stated that he is nervous because of what anesthesia does to him. Has bowel movements and is urinating (catheter) Still has pain the left foot and states it is a 2/10 Back pain is still present but states it is more like a nagging pain Patient is NPO for surgery Patient could not tolerate VARUN wraps on his legs Reviewed PT notes and patient is making excellent progress Patient denies any additional problems or questions at this time Labs show that Hgb is still low at 7.9 Glucose is better today but still at 174 AST is slightly elevated at 57 BUN/CR is 32/1.13 Sugar 250 at noon so gave SSI A 3 units even though he is NPO Hgb 7.9 Refuses CARLENE hose and CPAP Maintained on O2 Looks really good walking around the unit today Having real difficulty with pain today Just cannot get comfortable We will discontinue IV steroids in preparation for surgery tomorrow Understands that he must have the surgery since the spinal wound dehiscence will not heal Put a hold on Lovenox Plan for surgery by Dr. Carrasco tomorrow Check meds and labs DC'd hydrocodone and started Percocet for additional pain control Conferred with RN Reviewed therapy notes Patient transferring a lot better now Review of Systems General: Fatigue Musculoskeletal: back pain Objective Exam Vital Signs Vital Signs Date Time Temp Pulse Resp B/P (MAP) Pulse Ox O2 Delivery O2 Flow Rate FiO2 07/05/19 08:40 71 20 147/62 (90) 98 Nasal Cannula 2.00 07/05/19 05:55 97.6 Capillary Refill : Less Than 3 SecondsLess Than 3 Seconds General Appearance: No Apparent Distress, WD/WN, Chronically ill, Obese HEENT: PERRL/EOMI, Normal ENT Inspection, Pharynx Normal, Moist Mucous Membranes Neck: Full Range of Motion, Normal Inspection, Non Tender, Supple Respiratory: Chest Non Tender, Lungs Clear, Normal Breath Sounds, No Accessory Muscle Use, No Respiratory Distress, Crackles (LLL subtle) Cardiovascular: Regular Rate, Rhythm, No Gallop, No JVD, No Murmur Gastrointestinal: Normal Bowel Sounds, No Organomegaly, No Pulsatile Mass, Non Tender, Soft Back: Normal Inspection, No CVA Tenderness, Decreased Range of Motion Extremity: Normal Capillary Refill, Normal Inspection, Normal Range of Motion, Non Tender, No Calf Tenderness, Pedal Edema Neurologic/Psychiatric: Alert, Oriented x3, No Motor/Sensory Deficits, 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 FIM Transfers Therapy Code Descriptions/Definitions Functional [place] Measure: 0=Not Assessed/NA 4=Minimal Assistance 1=Total Assistance 5=Supervision or Setup 2=Maximal Assistance 6=Modified [place] 3=Moderate Assistance 7=Complete [place] Therapy Quality Codes: 6 Independent with activity with or without an assistive device 5 Patient requires set up or clean up by helper. Patient completes activity by themselves 4 Supervision or touching assist (CGA). Amelia provide cues , steadying assist 3 The helper provides less than half the effort to complete the activity 2 The helper provides more than half the effort to complete the activity 1 Dependent. The helper does all the effort to complete an activity 7 Patient refused to complete or attempt activity 9 The patient did not perform the activity before the current illness or injury 88 Not attempted due to Medical conditions or safety concerns Transfers (B, C, W/C) (FIM): 4 Scootin Rollin Roll Left to Right (QC): 5 Supine to/from Sit: 4 Sit to/from Stand: 5 Sit to Lying (QC): 3 Sit to Stand (QC): 3 Chair/Pqi-ia-Htspz Xfer(QC): 4 Bed to/from Chair: 4 Car Transfer (QC): 2 Gait Training Does the Patient Walk?: Yes Gait (FIM): 2 Distance (FIM): 3=754-74 ft Distance: 75' Walk 10 feet (QC): 4 Gait Level of Assist: 5 Gait Persons Needed: 2 Gait Assistive Device: FWW Wheelchair Training Does the Pt Use a Wheelchair?: Yes Wheelchair (FIM): 2 Wheelchair Distance: 9=217-97 ft Distance: 80' x 5 Wheelchair Level of Assist: 3 Wheel 50 ft with 2 turns (QC): 3 Wheel 150 ft (QC): 4 Type of Wheelchair: Manual Mental Status/Objective Comprehension: 7 Expression: 7 Social Interaction: 7 Problem Solvin Memory: 7 ADL-Treatment Feedin (Pt able to feed self without assist) Eating (QC): 6 Groomin Oral Hygiene (QC): 5 Bathin Bathing Location: L Arm, R Arm, Chest, Abdomen Shower/Bathe Self (QC): 3 Upper Extremity Dressin Upper Body Dressing (QC): 4 Lower Extremity Dressin Lower Body Dressing (QC): 2 On/Off Footwear (QC): 2 Toiletin (Pt. was incontinent of bowel while in bed. OT removed depend in bed, and placed bed betts per pt. request, as he had to go quickly. After toileting, OT cleansed brandyn area at bed level.) Toileting Hygiene (QC): 1 Toilet/Commode Transfer: 2 Toilet Transfer (QC): 2 Shower: 0 Assessment/Plan Assessment and Plan Assess & Plan/Chief Complaint Assessment: (1) Myopathy (2) COPD (chronic obstructive pulmonary disease) (3) Respiratory failure, acute and chronic (4) Polycythemia (5) Tobacco use (6) Back pain (7) Neuropathy (8) PVD (peripheral vascular disease) (9) Hx of CABG (10) Obesity hypoventilation syndrome (11) Hypertension (12) Renal insufficiency (13) Hyperlipemia (14) Arthritis of right knee (15) Hx of supraventricular tachycardia (16) Obesity (17) Diabetes mellitus (18) SIDNEY on CPAP (19) CO2 narcosis (20) CAD (coronary artery disease) (21) Status post lumbar spine surgery for decompression of spinal cord (22) UTI Klebsiella s/p Bactrim and Cipro then DC when added Jorge and Vanc due to wound (23) Anxiety (24) Wound dehiscence requiring bedside debridement and placement of wound vac by Dr Carrasco 06/19/19 (25) Diarrhea w/mild dehydration now resolving (26) edema (27) Left leg radiculopathy severe s/p short low dose course of IV steroids which did not help last week Plan: Maude Nayak, Anabelle, Rachel, Danilo are appreciated Abx changed to Jorge and Vanc for wound dehiscence and DC Cipro and Bactrim and wound vac maintained now abx regimen completed 06/27/19 Check labs in am IRF protocol Pain control with DC Lortab and started Percocet Monitor closely Questran DC High risk for C diff for any abx in future IS use along with Nebs Continue progress of PT with ambulation Encourage use of CPAP but refuses most of the time OR tomorrow Dr Carrasco Restart Lasix and potassium along with VARUN wraps but he refuses VARUN wraps and that seems to really helped the edema Psych consult reviewed IV steroids DC Needs surgery today by Dr Carrasco because it is necessary to heal the spine wound in order to fully recover but 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 after OR just like last surgery (1) Myopathy (2) Postoperative wound dehiscence (3) Wound drainage (4) CO2 retention (5) Hyperkalemia (6) Renal failure (7) Elevated brain natriuretic peptide (BNP) level (8) Clot retention of urine (9) COPD (chronic obstructive pulmonary disease) (10) Polycythemia (11) Diabetes mellitus (12) Back pain (13) CAD (coronary artery disease) (14) Hyperlipemia (15) Neuropathy (16) Renal insufficiency (17) PVD (peripheral vascular disease) (18) Hypertension (19) Obesity (20) Respiratory failure, acute and chronic (21) Arthritis of right knee (22) Obesity hypoventilation syndrome (23) CO2 narcosis (24) SIDNEY on CPAP (25) Hx of supraventricular tachycardia (26) Decubitus ulcer (27) Urinary retention (28) BPH (benign prostatic hyperplasia) (29) UTI due to Klebsiella species (30) Hx of CABG (31) Status post lumbar spine surgery for decompression of spinal cord (32) Tobacco use JASPER LONG DO Jul 05, 2019 09:36
--- NOTE | 2019-07-05 09:51 | Occupational Ther Daily Note ---
OT Current Status-Daily Note Subjective Pt alert, lying in bed. Pt agrees to therapy. Pt is having procedure on wound later on today, had surgical bath prior to 0700. Pt c/o pain in feet, reported to nrsg. Mental Status/Objective Patient Orientation: Person, Place, Time, Situation Therapy Code Descriptions/Definitions Functional [place] Measure: 0=Not Assessed/NA 4=Minimal Assistance 1=Total Assistance 5=Supervision or Setup 2=Maximal Assistance 6=Modified [place] 3=Moderate Assistance 7=Complete [place] Attachments: Alves Catheter, IV, Oxygen (3L) ADL-Treatment Pt had surgical bath earlier in AM. Pt did complete own grooming sitting at sink. With HOB elevated pt able to go from supine to EOB with some difficulty by self. Therapy Code Descriptions/Definitions Functional [place] Measure: 0=Not Assessed/NA 4=Minimal Assistance 1=Total Assistance 5=Supervision or Setup 2=Maximal Assistance 6=Modified [place] 3=Moderate Assistance 7=Complete [place] Therapy Quality Codes: 6 Independent with activity with or without an assistive device 5 Patient requires set up or clean up by helper. Patient completes activity by themselves 4 Supervision or touching assist (CGA). [place] provide cues , steadying assist 3 The helper provides less than half the effort to complete the activity 2 The helper provides more than half the effort to complete the activity 1 Dependent. The helper does all the effort to complete an activity 7 Patient refused to complete or attempt activity 9 The patient did not perform the activity before the current illness or injury 88 Not attempted due to Medical conditions or safety concerns Grooming (FIM): 6 Oral Hygiene (QC): 6 Other Treatment Pt ambulated to/from therapy gym using FWW with CGA, one rest break. UE exercises completed to increase pt strength and activity tolerance for daily functional tasks. Arm bike completed 15 min at 25 nathan resistance. Resistive clothespins with 1# wt attached to wrists, 50 each hand. Pt takes increased time to complete functional tasks. After therapy, pt sitting in w/c with call light/phone in reach. All needs met in room. OT Short Term Goals Short Term Goals Time Frame: Jun 25, 2019 Grooming(FIM): 5 Bathing(FIM): 3 Lower Body Dressing(FIM): 3 Toileting(FIM): 3 Transfers (B,C,W/C) (FIM): 3 Toilet/Commode Transfer(FIM): 3 Additional Short Term Goals: 1-Demonstrate ADL Tasks, 2-Verbalize Understanding, 3-ImproveStrength/Leo 1=Demonstrate adherence to instructed precautions during ADL tasks. 2=Patient will verbalize/demonstrate understanding of assistive devices/mo difications for ADL. 3=Patient will improve strength/tolerance for activity to enable patient to perform ADL's. OT Manager Game Goals Manager Game Goals Time Frame: Jul 09, 2019 Eating (FIM): 6 Eating (QC): 6 Groomin Oral Hygiene (QC): 6 Bathing(FIM): 5 Shower/Bathe Self (QC): 5 Upper Body Dressing(FIM): 6 Upper Body Dressing (QC): 6 Lower Body Dressing(FIM): 6 Lower Body Dressing (QC): 5 On/Off Footwear (QC): 5 Toileting(FIM): 6 Toileting Hygiene (QC): 6 Toilet/Commode Transfer(FIM): 6 Toilet/Commode Transfer (QC): 6 Shower Transfer(FIM): 5 Comprehension(FIM): 7 Expression (FIM): 7 Social Interaction(FIM): 7 Problem Solving(FIM): 7 Memory(FIM): 7 Additional Goals: 1-Demonstrate ADL Tasks, 2-Verbalize Understanding, 3- ImproveStrength/Leo 1=Demonstrate adherence to instructed precautions during ADL tasks. 2=Patient will verbalize/demonstrate understanding of assistive devices/modifications for ADL. 3=Patient will improve strength/tolerance for activity to enable patient to perform ADL's. OT Education/Plan Problem List/Assessment Assessment: Decreased Activ Tolerance, Impaired Self-Care Skills Discharge Recommendations Plan/Recommendations: Continue POC Treatment Plan/Plan of Care Patient would benefit from OT for education, treatment and training to promote independence in ADL's, mobility, safety and/or upper extremity function for ADL's. Plan of Care: ADL Retraining, Functional Mobility, Group Exercise/Act as Ind, UE Funct Exercise/Act Treatment Duration: Jul 09, 2019 Frequency: At least 5 of 7 days/Wk (IRF) Estimated Hrs Per Day: 1.5 hours per day Agreement: Yes Rehab Potential: Fair Time/GCodes Start Time: 08:30 Stop Time: 10:00 Total Time Billed (hr/min): 90 Billed Treatment Time 1 visit-ADL 3 (45 min) EX 3 (45 min) AMANDA WEINER Jul 05, 2019 09:51
[2019-07-05] MEDS: meTOprolol TARTRATE 25 MG (LOPRESSOR) TABLET PO SCH ×2 (09:58→20:40)
--- NOTE | 2019-07-05 10:31 | Physical Therapy Daily Note ---
PT Daily Note-Current Subjective Pt reports having surgery this afternoon so is NPO and has to wait to hear back from the doctor to see if he can take a pain pill. Agreeable to PT session this am, even though is in a lot of pain. Pain Numeric Pain Scale: 4 Location: Left Location Body Site: Foot Comment: throbs @ times, increases spontaneously to 25/10, feels like a sciatic pain Appearance Pt sitting up in w/c awake and alert upon arrival. Requested pain med from nsg, nsg states she has not received message back from doctor ok'ing oral pain med. Pt requesting ice chips of dr will allow it with his NPO status, nsg notified. Pt in bed with call light, phone and bedside table within reach. Mental Status Patient Orientation: Person, Place, Time, Eyes Open, Situation Attachments: Saline Lock, Oxygen (2 1/2), Drains, Alves Catheter wound vac Transfers Therapy Code Descriptions/Definitions Functional [place] Measure: 0=Not Assessed/NA 4=Minimal Assistance 1=Total Assistance 5=Supervision or Setup 2=Maximal Assistance 6=Modified [place] 3=Moderate Assistance 7=Complete [place] Therapy Quality Codes: 6 Independent with activity with or without an assistive device 5 Patient requires set up or clean up by helper. Patient completes activity by themselves 4 Supervision or touching assist (CGA). [place] provide cues , steadying assist 3 The helper provides less than half the effort to complete the activity 2 The helper provides more than half the effort to complete the activity 1 Dependent. The helper does all the effort to complete an activity 7 Patient refused to complete or attempt activity 9 The patient did not perform the activity before the current illness or injury 88 Not attempted due to Medical conditions or safety concerns Transfers (B, C, W/C) (FIM): 4 Scootin Rollin Supine to/from Sit: 5 (SBA, pt demonstrating ability to pull LE's up into bed without physical assist) Sit to/from Stand: 4 (min A required sit to stand from w/c, CGA stand to sit into w/c and onto bed) pt does not use technique pushing up from arms of chair during sit to stand, pulls from walker which therapist stabilizes Gait Training Does the Patient Walk?: Yes Gait (FIM): 4 Distance (FIM): 3=150 ft Distance: 100, 150 x2, 115 Gait Level of Assist: 4 (CGA to SBA) Gait Persons Needed: 2 (extra person to assist with following with w/c, O2 tank and Wound vac) Gait Assistive Device: FWW (barriatric) standing rest breaks required, SOA, slow pace, step to gait pattern occasionally, L foot drop with pt increasing step height to clear foot from floor, no LOB episodes Treatments transfers, gait, w/c mobility, safety, balance, activity tolerance, functional mobility, strengthening, breathing techniques, bed mobility Assessment Current Status: Good Progress O2 sat decreases with activity PT Short Term Goals Short Term Goals Time Frame: Jun 25, 2019 Transfers (B,C,W/C) (FIM): 3 Gait (FIM): 1 Gait Distance Comment: 5' Gait Level of Assist: 3 Gait Assistive Device: FWW Wheelchair Distance: 80' x 5 PT Tobacco Farmworker Goals Residential Goals PT Residential Goals Time Frame: Jul 09, 2019 Transfers (B,C,W/C) (FIM): 4 Sit to Lying (QC): 4 Lying-Sitting on Side/Bed(QC): 4 Sit to Stand (QC): 3 Rollin Roll Left to Right (QC): 4 Chair/Qzr-km-Nntqh Xfer(QC): 3 Car Transfer (QC): 3 Gait (FIM): 1 Distance: 20' Walk 10 feet (QC): 3 Walk 10ft-Uneven Surface(QC): 3 Gait Level of Assist: 4 Gait Assistive Device: FWW Wheelchair (FIM): 6 Distance: 150' Wheelchair Level of Assist: 5 Wheel 50 feet with 2 turns (QC: 4 PT Plan Treatment/Plan Treatment Plan: Continue Plan of Care Treatment Plan: Bed Mobility, Concurrent Therapy, Education, Functional Activity Leo, Functional Strength, Group Therapy, Gait, Safety, Therapeutic Exercise, Transfers Treatment Duration: Jul 09, 2019 Frequency: At least 5 of 7 days/Wk (IRF) Estimated Hrs Per Day: 1.5 hours per day Patient and/or Family Agrees t: Yes Safety Risks/Education Patient Education: Gait Training, Transfer Techniques, Safety Issues Teaching Recipient: Patient Teaching Methods: Demonstration, Discussion Response to Teaching: Verbalize Understanding, Return Demonstration Time/GCodes Time In: 1015 Time Out: 1145 Total Billed Treatment Time: 90 Total Billed Treatment 1 visit, GT x3, FA x3 ARISTIDES LONDONO PTA Jul 05, 2019 10:31
[2019-07-05] MEDS: TAMSULOSIN 0.4 MG (FLOMAX) CAP PO SCH (11:16)
[2019-07-05] MEDS: GABAPENTIN 300 MG (NEURONTIN) CAP PO SCH (11:16)
[2019-07-05] MEDS: DICLOFENAC 1% GEL 100 GM (VOLTAREN) TUBE TOP SCH ×4 (11:17→21:53)
--- NOTE | 2019-07-05 11:57 | NUR ---
Notified Dr. Carrasco of FSBS OF 250, asked if he wanted the 3 units of Novolog given per SSI orders. Had also asked 2 hours ago if he wanted the scheduled Metoprolol given ? Dr. Carrasco replied to check w Dr. Law.
[2019-07-05] MEDS: FUROSEMIDE 40 MG (LASIX) TAB PO SCH (12:08)
[2019-07-05] MEDS: THEOPHYLLINE ER 400 MG TAB (THEO-24) PO SCH (12:08)
--- NOTE | 2019-07-05 12:19 | NUR ---
Dr. Law gave orders to give the SSI
--- NOTE | 2019-07-05 13:29 | Pulmonary Progress Note ---
Subjective Time Seen by a Provider: 13:28 Subjective/Events-last exam No complications noted. Sepsis Event Evaluation Height, Weight, BMI Height: 5'10.00" Weight: 270lbs. 14.4oz. 122.634396vg; 38.0 BMI Method:Stated Exam Exam Vital Signs Date Time Temp Pulse Resp B/P (MAP) Pulse Ox O2 Delivery O2 Flow Rate FiO2 07/05/19 08:40 71 20 147/62 (90) 98 Nasal Cannula 2.00 07/05/19 08:37 Nasal Cannula 2.00 07/05/19 08:31 90 Nasal Cannula 3.00 07/05/19 05:55 97.6 66 18 143/66 (91) 96 Nasal Cannula 2.00 07/04/19 20:20 Nasal Cannula 2.00 07/04/19 19:25 90 Nasal Cannula 3.00 07/04/19 17:04 Nasal Cannula 2.00 07/04/19 16:21 98.3 78 18 145/64 (91) 93 Nasal Cannula 2.00 07/04/19 14:46 93 Nasal Cannula 2.00 I & O 07/05/19 07:00 Intake Total 1380 ml Output Total 2500 ml Balance -1120 ml Height & Weight Height: 5'10.00" Weight: 270lbs. 14.4oz. [id number]; 38.0 BMI Method:Stated General Appearance: No Apparent Distress HEENT: PERRL/EOMI, Pharynx Normal Neck: Full Range of Motion, Non Tender, Supple Respiratory: Chest Non Tender, No Accessory Muscle Use, No Respiratory Distress, Decreased Breath Sounds Cardiovascular: Regular Rate, Rhythm, No Edema, No Gallop Capillary Refill: Less Than 3 Seconds Gastrointestinal: normal bowel sounds, non tender, soft, no organomegaly Extremity: Normal Capillary Refill, No Pedal Edema Neurologic/Psychiatric: Alert, Oriented x3 Skin: Normal Color, Warm/Dry Lymphatic: No Adenopathy Results Lab Laboratory Tests 07/05/19 05:03 Assessment/Plan Assessment/Plan Hypoxia probably secondary to COPD -Monitor Dehiscence of lumbar surgical wound -Wound care following -Wound vac Morbid obesity with OHS -Home CPAP machine Anemia -Monitor DM Tobacco use Debility ANIYA DUDLEY DO Jul 05, 2019 13:29
--- NOTE | 2019-07-05 13:51 | NUR ---
Anesthesia in to see & talk w pt, & ex-.
[2019-07-05] MEDS: ROFLUMILAST 500 MCG TAB (DALIRESP) PO SCH (14:23)
[2019-07-05] MEDS ORDERED: ONDANSETRON 4 MG/2 ML (SDV) Z0FRAN ONE ×2 (14:35→14:42)
[2019-07-05] MEDS ORDERED: morphine INJ 4 MG/ML 1 ML (VIAL/SYRINGE) ONE (14:36)
[2019-07-05] MEDS ORDERED: morphine INJ 10 MG/ML 1ML (SYR OR VIAL) IVP STA (14:38)
[2019-07-05] MEDS ORDERED: SUCCINYLCHOLINE INJ 100 MG/5 ML SYR ONE (14:42)
[2019-07-05] MEDS ORDERED: proPOfol 200 MG/20 ML (DIPRIVAN) VIAL IV ONE (14:42)
[2019-07-05] MEDS ORDERED: ROCURONIUM 10 MG/ML 5 ML SYRINGE IV ONE (14:42)
[2019-07-05] MEDS ORDERED: LIDOCAINE PF 2% 5 ML (XYLOCAINE) VIAL ONE (14:42)
[2019-07-05] MEDS ORDERED: fentaNYL INJECTION 100 MCG/2 ML AMP ONE (14:44)
[2019-07-05] MEDS ORDERED: MIDAZOLAM 2 MG/2 ML (VERSED) VIAL ONE (14:44)
[2019-07-05] MEDS ORDERED: ONDANSETRON 4 MG/2 ML (SDV) Z0FRAN IVP ONE (14:45)
--- NOTE | 2019-07-05 15:04 | NUR ---
Pt transferred down to surgery per bed accomp by 2 surgical techs, ex-, & dgtr. Notified 2 surgical techs that Zofran 4 mg, & M/S 3 mg IV just given as ordered by Ariel Green, water treatment technician.
[2019-07-05] MEDS ORDERED: SEVOFLURANE (ULTANE) 15 ML INHAL SOLN ONE ×4 (16:10→17:22)
--- NOTE | 2019-07-05 17:25 | NUR ---
Samira, critical care cns called & stated that pt is in Recovery Room, & that they would be bringing him back to floor in ~ 1 hour.
--- NOTE | 2019-07-05 18:16 | NUR ---
Pt returned per bed to room 230 from Recovery Room accomp by 2 RN's. Pt is A/O. talking, skin w/d. Wound vac has been removed & pt has hemovac in place to mid lower back. quality compliance coordinator states that she emptied 10cc from hemovac drain prior to transferring to room. States that pt was given general anesthetic. Pt talking w family.
--- NOTE | 2019-07-05 19:18 | NUR ---
bedside report received from EARNEST LOUIE, assume care of pt
--- NOTE | 2019-07-05 20:35 | NUR ---
assessments & interventions completed, see assessments & interventions, sitting up on edge of bed, back dressing has moderate amt bloody drainage, Hemovac drain has small amt bloody drainage, family at bedside
[2019-07-05] MEDS: QUEtiapine 25 MG (SEROquel) TAB IMMEDIATE RELEASE PO SCH (20:36)
[2019-07-05] MEDS: GABAPENTIN 600 MG (NEURONTIN) TAB PO SCH (20:36)
--- NOTE | 2019-07-05 21:35 | NUR ---
fsbs 237 NovoLog 3 units given
--- NOTE | 2019-07-05 23:45 | NUR ---
c/o back pain level 4/10 on numeric scale, Percocet 5/325 1 tab po given
--- NOTE | 2019-07-06 00:30 | NUR ---
rates pain level 2/10 on numeric scale
[2019-07-06 06:00] VITALS: BP 130/67
[2019-07-06] MEDS: inSUlin ASPART (NovoLOG) 1 UNIT/0.01 ML (CHARGE PER UNIT) SC SCH ×4 (06:00→21:29)
[2019-07-06] MEDS: LACTOBACILLUS ACIDOPHILUS (PROBIOTIC) CAPSULE PO SCH ×4 (06:05→21:30)
[2019-07-06] MEDS: PANTOPRAZOLE 40 MG (PROTONIX) TAB PO SCH (06:06)
[2019-07-06] MEDS: SILDENAFIL 20 MG (REVATIO) TAB NON-FORMULARY PO SCH ×3 (06:06→21:31)
[2019-07-06] MEDS: KCL 20 MEQ TAB (K-DUR) PO SCH (06:06)
[2019-07-06] MEDS: MULTIVIT W/MINERALS TAB (THERAGRAN M) PO SCH (06:06)
[2019-07-06] MEDS: CATHETER FLUSH 10 ML SYR IV SCH ×3 (06:07→22:23)
[2019-07-06] MEDS: amLODIPine 10 MG (NORVASC) TAB PO SCH (06:07)
[2019-07-06] MEDS: oxyCODONE/APAP 5/325MG (PERCOCET 5) TABLET PO PRN ×4 (06:07→20:44)
--- NOTE | 2019-07-06 06:07 | NUR ---
c/o back pain level 4/10 on numeric scale, Percocet 5/325 1 tab po given
--- NOTE | 2019-07-06 06:30 | NUR ---
family member concerned with blood on sheet, found Hemovac tubing dislodged from container, attached again & taped site, bed changed, called orders received for stat CBC & CMP
--- NOTE | 2019-07-06 06:45 | NUR ---
rates pain level 3/10 on numeric scale
--- NOTE | 2019-07-06 06:45 | PM&R Progress Note ---
[facility] 07/06/19 0645: Subjective HPI/CC On Admission Date Seen by Provider: Jul 06, 2019 Time Seen by Provider: 06:15 CC: Critical illness debility HPI: This is a 68-year-old white male clinic patient of Dr. 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 Received report from Dr. Montesinos at [facility] in [place]. Patient was admitted there after difficulty weaning off the ventilator after he was intubated after failed noninvasive ventilator support after he was transferred from [facility] after his spinal surgery to [facility]. He remained on the ventilator for 3 weeks has some vocal cord dysfunction due to the long intubation status and most recently having urinary retention after Alves catheter was discontinued and currently has Klebsiella UTI maintained on Bactrim and Cipro double coverage because of such a significant organism. He had some significant hallucinations last week but that has been resolved. Patient currently remains on 2 L by nasal cannula of oxygen receives nebulizer treatments of DuoNeb every 6 hours and uses his home CPAP machine. His prior level of functioning was independent of ADLs and ambulation. I reviewed all of his current medications and technical service specialist here at the hospital has confirmed accuracy and all those have been continued. He does have a PICC line in his right upper arm. Upon review of the history and physical the following information was obtained: Past medical history: diabetes mellitus on oral therapy, obstructive sleep apnea, COPD with chronic respiratory failure, polycythemia due to chronic respiratory failure, tobacco use, chronic low back pain, peripheral neuropathy, PVD, CAD previous bypass surgery, thrombocytopenia, morbid obesity with hypoventilation syndrome, congestive heart failure with acute on chronic diastolic type with volume overload at admission to [facility], hyperlipidemia, hypertension, carpal tunnel syndrome, severe DJD of the right knee. He also has a history of SVT. Subjective/Events-last exam Florentino appeared well and was recovering from surgery yesterday. I asked him how it went and he though it went well. Patient stated he was cold but when feeling his forehead he was clammy. Patient is currently on a clear diet and states he is tolerating it well Has not had a bowel movement since his surgery Urinating through catheter (800ml) Pain in the left foot is 2/10 Denied SOB, chest pain and N/V Patient feels warm and clammy Enoxaparin and Bethanechol still on hold PT and OT notes reviewed, patient making good progress Focused Exam Respiratory: Chest Non Tender, Lungs Clear, Normal Breath Sounds Cardiovascular: Regular Rate, Rhythm Skin: normal color, other (Warm and clammy ) Objective Exam Vital Signs Vital Signs Date Time Temp Pulse Resp B/P (MAP) Pulse Ox O2 Delivery O2 Flow Rate FiO2 07/06/19 09:00 Nasal Cannula 3.50 07/06/19 08:55 129/65 (86) 97 07/06/19 06:00 78 20 07/05/19 18:23 97.6 Capillary Refill : Less Than 3 SecondsLess Than 3 Seconds General Appearance: No Apparent Distress Respiratory: Chest Non Tender, Lungs Clear, Normal Breath Sounds, No Accessory Muscle Use, No Respiratory Distress Cardiovascular: Regular Rate, Rhythm Neurologic/Psychiatric: Alert Results/Procedures Lab Laboratory Tests 07/06/19 07:13 Patient resulted labs reviewed. FIM Transfers Therapy Code Descriptions/Definitions Functional Moca Measure: 0=Not Assessed/NA 4=Minimal Assistance 1=Total Assistance 5=Supervision or Setup 2=Maximal Assistance 6=Modified Moca 3=Moderate Assistance 7=Complete Moca Therapy Quality Codes: 6 Independent with activity with or without an assistive device 5 Patient requires set up or clean up by helper. Patient completes activity by themselves 4 Supervision or touching assist (CGA). Rogers provide cues , steadying assist 3 The helper provides less than half the effort to complete the activity 2 The helper provides more than half the effort to complete the activity 1 Dependent. The helper does all the effort to complete an activity 7 Patient refused to complete or attempt activity 9 The patient did not perform the activity before the current illness or injury 88 Not attempted due to Medical conditions or safety concerns Transfers (B, C, W/C) (FIM): 4 Scootin Rollin Roll Left to Right (QC): 5 Supine to/from Sit: 5 (SBA, pt demonstrating ability to pull LE's up into bed without physical assist) Sit to/from Stand: 4 (min A required sit to stand from w/c, CGA stand to sit into w/c and onto bed) Sit to Lying (QC): 3 Sit to Stand (QC): 3 Chair/Ice-cz-Sqdii Xfer(QC): 4 Bed to/from Chair: 4 Car Transfer (QC): 2 Gait Training Does the Patient Walk?: Yes Gait (FIM): 4 Distance (FIM): 3=150 ft Distance: 100, 150 x2, 115 Walk 10 feet (QC): 4 Gait Level of Assist: 4 (CGA to SBA) Gait Persons Needed: 2 (extra person to assist with following with w/c, O2 tank and Wound vac) Gait Assistive Device: FWW (barriatric) Wheelchair Training Does the Pt Use a Wheelchair?: Yes Wheelchair (FIM): 2 Wheelchair Distance: 8=131-62 ft Distance: 80' x 5 Wheelchair Level of Assist: 3 Wheel 50 ft with 2 turns (QC): 3 Wheel 150 ft (QC): 4 Type of Wheelchair: Manual Mental Status/Objective Comprehension: 7 Expression: 7 Social Interaction: 7 Problem Solvin Memory: 7 ADL-Treatment Feedin (Pt able to feed self without assist) Eating (QC): 6 Groomin Oral Hygiene (QC): 6 Bathin Bathing Location: L Arm, R Arm, Chest, Abdomen Shower/Bathe Self (QC): 3 Upper Extremity Dressin Upper Body Dressing (QC): 4 Lower Extremity Dressin Lower Body Dressing (QC): 2 On/Off Footwear (QC): 2 Toiletin (Pt. was incontinent of bowel while in bed. OT removed depend in bed, and placed bed betts per pt. request, as he had to go quickly. After toileting, OT cleansed brandyn area at bed level.) Toileting Hygiene (QC): 1 Toilet/Commode Transfer: 2 Toilet Transfer (QC): 2 Shower: 0 Assessment/Plan Assessment and Plan Assess & Plan/Chief Complaint Assessment and Plan Assess & Plan/Chief Complaint Assessment: (1) Myopathy (2) COPD (chronic obstructive pulmonary disease) (3) Respiratory failure, acute and chronic (4) Polycythemia (5) Tobacco use (6) Back pain (7) Neuropathy (8) PVD (peripheral vascular disease) (9) Hx of CABG (10) Obesity hypoventilation syndrome (11) Hypertension (12) Renal insufficiency (13) Hyperlipemia (14) Arthritis of right knee (15) Hx of supraventricular tachycardia (16) Obesity (17) Diabetes mellitus (18) SIDNEY on CPAP (19) CO2 narcosis (20) CAD (coronary artery disease) (21) Status post lumbar spine surgery for decompression of spinal cord (22) UTI Klebsiella s/p Bactrim and Cipro then DC when added Jorge and Vanc due to wound (23) Anxiety (24) Wound dehiscence requiring bedside debridement and placement of wound vac by Dr Carrasco 06/19/19 (25) Diarrhea w/mild dehydration now resolving (26) edema (27) Left leg radiculopathy severe will place on short low dose course of IV steroids Plan: Check labs this afternoon (CBC w/diff, CMP) Continue to closely monitor due to recent surgery IRF protocol Pain control High risk for C diff for any abx in future IS use along with Nebs Continue progress of PT with ambulation once cleared by surgery Encourage use of CPAP but refuses most of the time Continue to try and encourage VARUN wrap usage even though he is refusing Pay close attention after surgery due to patients history of intubation after surgical procedures Monitor I/O Continue to monitor glucose control Evaluate patients left foot if pain worsens Consult wound care to make sure they are aware of patient coming out from surgery so they can continue to monitor. Monitor patient for bowel movements (has not gone since surgery) Consult doctors to restart meds on hold Continue to monitor vitals. Barriers that he needs addressed before he gets home include: 1. Patient has 2 steps at home and this does not have railings 2. Patient drives but will need assistance in and out and a consult to see if he is even capable of driving still 3. Patient really likes the walker and feels he would really benefit from one if he had one for himself. 4. Patient does not have someone who checks in on him. Would be good to organize family or friends to check in on him. 5. Does patient need at home oxygen (pulmonary consult to evaluate patients ability to be home and not on oxygen). 6. Patient needs an evaluation of his home to make sure he has items that pose a fall risk removed or placed somewhere сергей. 7. Patient needs an at home evaluation of his bathroom to make sure it is adequate for him to function. Areas of living that already have assistance include: 1. currently does not have items that he may need to meet his needs at home. Areas that still need to be discussed: 1. Patient being able to manage drug regimen without at home help (1) Myopathy (2) Postoperative wound dehiscence (3) Wound drainage (4) CO2 retention (5) Hyperkalemia (6) Renal failure (7) Elevated brain natriuretic peptide (BNP) level (8) Clot retention of urine (9) COPD (chronic obstructive pulmonary disease) (10) Polycythemia (11) Diabetes mellitus (12) Back pain (13) CAD (coronary artery disease) (14) Hyperlipemia (15) Neuropathy (16) Renal insufficiency (17) PVD (peripheral vascular disease) (18) Hypertension (19) Obesity (20) Respiratory failure, acute and chronic (21) Arthritis of right knee (22) Obesity hypoventilation syndrome (23) CO2 narcosis (24) SIDNEY on CPAP (25) Hx of supraventricular tachycardia (26) Decubitus ulcer (27) Urinary retention (28) BPH (benign prostatic hyperplasia) (29) UTI due to Klebsiella species (30) Hx of CABG (31) Status post lumbar spine surgery for decompression of spinal cord (32) Tobacco use CINTIA LONG DO 07/06/191952: Subjective Subjective/Events-last exam No wound vac and a hemo vac was placed after surgery yesterday Requiring 3.5 L of oxygen but not tachypnea Hemoglobin 8.1 Dr. Ahn was consulted No antibiotics on board Left foot pain continues but not to bad Clear liquid diet will be advanced cause there is no dysphasia Bowels moved yesterday Lungs remain cleared Lovenox will be restarted for DVT prophylaxis Will review barriers to returning home Review of Systems General: Fatigue Pulmonary: Dyspnea Musculoskeletal: back pain, leg pain Neurological: Weakness Objective Exam General Appearance: No Apparent Distress, WD/WN, Chronically ill, Obese Respiratory: Chest Non Tender, Lungs Clear, Normal Breath Sounds, No Accessory Muscle Use, No Respiratory Distress Cardiovascular: Regular Rate, Rhythm, No Edema Back: Decreased Range of Motion Neurologic/Psychiatric: Alert, Oriented x3, No Motor/Sensory Deficits, Normal Mood/Affect, trestleman II-XII Norm as Tested Assessment/Plan Assessment and Plan Assess & Plan/Chief Complaint Monitor hemovac and wound closure Appreciate Anabelle Chawla and Malini Patient appears to have a great deal of barriers to returning home and will need to seriously discuss these items in team meeting tomorrow Check hospital days available since he was at [facility] for 30+ days. (1) Myopathy (2) COPD (chronic obstructive pulmonary disease) (3) Polycythemia (4) Diabetes mellitus (5) Back pain (6) CAD (coronary artery disease) (7) Hyperlipemia (8) Neuropathy (9) Renal insufficiency (10) PVD (peripheral vascular disease) (11) Hypertension (12) Obesity (13) Respiratory failure, acute and chronic (14) Arthritis of right knee (15) Obesity hypoventilation syndrome (16) CO2 narcosis (17) SIDNEY on CPAP (18) Hx of supraventricular tachycardia (19) Decubitus ulcer (20) Urinary retention (21) BPH (benign prostatic hyperplasia) (22) UTI due to Klebsiella species (23) Hyperkalemia (24) Renal failure (25) CO2 retention (26) Postoperative wound dehiscence (27) Elevated brain natriuretic peptide (BNP) level (28) Clot retention of urine (29) Wound drainage (30) Hx of CABG (31) Status post lumbar spine surgery for decompression of spinal cord (32) Tobacco use Supervisory-Addendum Brief Verification & Attestation Time: Verification & Attestat.: 09:00 Participated in pt care: history, MDM, physical Personally performed: exam, history, MDM, supervision of care Care discussed with: Medical Student Procedures: n/a Results interpretation: Verified all documentation Verification and Attestation of Medical Student E/M Service A medical student performed and documented this service in my presence. I reviewed and verified all information documented by the medical student and made modifications to such information, when appropriate. I personally performed the physical exam and medical decision making. Cintia Long Jul 06, 2019,19:53 [facility] Jul 06, 2019 06:45 CINTIA LONG DO Jul 06, 2019 19:53
[2019-07-06] MEDS: RT-ALBUTEROL/IPRATROPIUM 3 ML (DUONEB) VIAL INH SCH ×2 (07:06→14:54)
--- NOTE | 2019-07-06 07:17 | NUR ---
bedside report given to IVETH LOUIE
[2019-07-06 07:21] LABS: BASOPHILS % (AUTO) 0 % (0-10); EOSINOPHILS # (AUTO) 0.1 10^3/uL (0.0-0.3); EOSINOPHILS % (AUTO) 2 % (0-10); HEMATOCRIT 28 % (40-54); HEMOGLOBIN 8.1 G/DL (13.3-17.7); LYMPHOCYTES # (AUTO) 1.3 X 10^3 (1.0-4.0); LYMPHOCYTES % (AUTO) 16 % (12-44); MEAN CORPUSCULAR HEMOGLOBIN 27 PG (25-34); MEAN CORPUSCULAR HGB CONC 29 G/DL (32-36); MEAN CORPUSCULAR VOLUME 94 FL (80-99); MEAN PLATELET VOLUME 10.1 FL (7.4-10.4); MONOCYTES # (AUTO) 0.9 X 10^3 (0.0-1.0); MONOCYTES % (AUTO) 12 % (0-12); NEUTROPHILS # (AUTO) 5.6 X 10^3 (1.8-7.8); NEUTROPHILS % (AUTO) 70 % (42-75); PLATELET COUNT 246 10^3/uL (130-400)
[2019-07-06 07:40] LABS: ALANINE AMINOTRANSFERASE 57 U/L (0-55); ALBUMIN 3.3 GM/DL (3.2-4.5); ALKALINE PHOSPHATASE 114 U/L (40-136); BILIRUBIN,TOTAL 0.4 MG/DL (0.1-1.0); BUN/CREATININE RATIO 28; CALCIUM 8.8 MG/DL (8.5-10.1); CARBON DIOXIDE 30 MMOL/L (21-32); CHLORIDE 99 MMOL/L (98-107); GFR ESTIMATED > 60; GLUCOSE 134 MG/DL (70-105); POTASSIUM 4.5 MMOL/L (3.6-5.0); SODIUM 139 MMOL/L (135-145); TOTAL PROTEIN 6.4 GM/DL (6.4-8.2)
--- NOTE | 2019-07-06 08:04 | Physical Therapy Daily Note ---
PT Daily Note-Current Subjective Pt reports he is in pain all over, burning pain. States he is on clear liquids and would like something for pain. Nsg notified. Pain Numeric Pain Scale: 3 Comment: whole back, burning pain Appearance Upon arrival, pt supine in bed, in pain, requesting pain med, family at bedside. At end of session, pt sitting up in w/c, per pt request, nsg present, call light, phone and bedside table within reach. Mental Status Patient Orientation: Person, Place, Time, Eyes Open, Situation, Normal For Age Attachments: Saline Lock, Oxygen (3L O2/nc), Drains, Alves Catheter Transfers Therapy Code Descriptions/Definitions Functional [place] Measure: 0=Not Assessed/NA 4=Minimal Assistance 1=Total Assistance 5=Supervision or Setup 2=Maximal Assistance 6=Modified [place] 3=Moderate Assistance 7=Complete [place] Therapy Quality Codes: 6 Independent with activity with or without an assistive device 5 Patient requires set up or clean up by helper. Patient completes activity by themselves 4 Supervision or touching assist (CGA). Bryson provide cues , steadying assist 3 The helper provides less than half the effort to complete the activity 2 The helper provides more than half the effort to complete the activity 1 Dependent. The helper does all the effort to complete an activity 7 Patient refused to complete or attempt activity 9 The patient did not perform the activity before the current illness or inju ry 88 Not attempted due to Medical conditions or safety concerns Transfers (B, C, W/C) (FIM): 3 Scootin Rollin Supine to/from Sit: 3 (Pt very stiff and gaurded ) Sit to/from Stand: 3 (CGA from EOB elevated, Mod A of 2 with gait belt sit to stand from w/c x3 reps with pt pulling from walker and therapist stabilizing it, stand to sit verb inst for hand placement and contolled descent) Gait Training Does the Patient Walk?: Yes Gait (FIM): 2 Distance (FIM): 2=397-03 ft Distance: 50,40 Gait Level of Assist: 4 (CGA provided) Gait Persons Needed: 2 (extra person to follow with w/c and O2 tank, as well as with sit to stand transfer from w/c) Gait Assistive Device: FWW (bariatric) slow, WBOS, standing rest breaks, SOA, shaky, O2 sats decreasing to 80's%, unsteady without LOB Exercises Seated Therapy Exercises: Ankle pumps, Sit to stand (5 consecutive), Long arc quads, Hip flexion Seated Reps: 20 Treatments bed mobility, transfers, safety, sitting balance at EOB, gait, activity tolerance, standing balance, strengthening, education Assessment Current Status: Good Progress Pt had surgery yesterday and feeling weak and increased pain today. PT Short Term Goals Short Term Goals Time Frame: Jun 25, 2019 Transfers (B,C,W/C) (FIM): 3 Gait (FIM): 1 Gait Distance Comment: 5' Gait Level of Assist: 3 Gait Assistive Device: FWW Wheelchair Distance: 80' x 5 PT Industrial Property Appraiser Goals Industrial Property Appraiser Goals PT Halfway Goals Time Frame: Jul 09, 2019 Transfers (B,C,W/C) (FIM): 4 Sit to Lying (QC): 4 Lying-Sitting on Side/Bed(QC): 4 Sit to Stand (QC): 3 Rollin Roll Left to Right (QC): 4 Chair/Auf-oj-Tavlk Xfer(QC): 3 Car Transfer (QC): 3 Gait (FIM): 1 Distance: 20' Walk 10 feet (QC): 3 Walk 10ft-Uneven Surface(QC): 3 Gait Level of Assist: 4 Gait Assistive Device: FWW Wheelchair (FIM): 6 Distance: 150' Wheelchair Level of Assist: 5 Wheel 50 feet with 2 turns (QC: 4 PT Plan Treatment/Plan Treatment Plan: Continue Plan of Care Treatment Plan: Bed Mobility, Concurrent Therapy, Education, Functional Activity Leo, Functional Strength, Group Therapy, Gait, Safety, Therapeutic Exercise, Transfers Treatment Duration: Jul 09, 2019 Frequency: At least 5 of 7 days/Wk (IRF) Estimated Hrs Per Day: 1.5 hours per day Patient and/or Family Agrees t: Yes Safety Risks/Education Patient Education: Gait Training, Transfer Techniques, Correct Positioning, Safety Issues Teaching Recipient: Patient Teaching Methods: Demonstration, Discussion Response to Teaching: Verbalize Understanding, Return Demonstration Time/GCodes Time In: 800 Time Out: 900 Total Billed Treatment Time: 60 Total Billed Treatment 1 visit, GT x3, FA x1 ARISTIDES LONDONO JUDICIAL CLERK Jul 06, 2019 08:04
--- NOTE | 2019-07-06 08:14 | Pulmonary Progress Note ---
Subjective Time Seen by a Provider: 08:13 Subjective/Events-last exam No complications noted. Sepsis Event Evaluation Height, Weight, BMI Height: 5'10.00" Weight: 272lbs. 0.0oz. 123.709347ao; 38.0 BMI Method:Stated Exam Exam Vital Signs Date Time Temp Pulse Resp B/P (MAP) Pulse Ox O2 Delivery O2 Flow Rate FiO2 07/06/19 07:08 90 Nasal Cannula 3.00 07/06/19 06:00 78 20 130/67 (88) 90 Nasal Cannula 3.00 07/05/19 22:25 80 18 136/58 (84) 95 Nasal Cannula 3.00 07/05/19 21:20 82 18 132/52 (78) 94 Nasal Cannula 3.00 07/05/19 20:45 Nasal Cannula 3.00 07/05/19 20:30 84 16 134/56 (82) 95 Nasal Cannula 3.00 07/05/19 19:05 77 20 156/73 (100) 93 Nasal Cannula 3.00 07/05/19 18:38 76 20 155/68 (97) 93 Nasal Cannula 3.00 07/05/19 18:33 75 20 153/69 (97) 95 Nasal Cannula 3.00 07/05/19 18:23 97.6 80 20 119/65 (83) 94 Nasal Cannula 3.00 07/05/19 08:40 71 20 147/62 (90) 98 Nasal Cannula 2.00 07/05/19 08:37 Nasal Cannula 2.00 07/05/19 08:31 90 Nasal Cannula 3.00 I & O 07/06/19 07:00 Intake Total 1000 ml Output Total 1900 ml Balance -900 ml Height & Weight Height: 5'.00" Weight: 272lbs. 0.0oz. 123.745739da; 38.0 BMI Method:Stated General Appearance: No Apparent Distress, WD/WN HEENT: PERRL/EOMI, Normal ENT Inspection, Pharynx Normal Neck: Full Range of Motion, Non Tender, Supple Respiratory: Chest Non Tender, No Accessory Muscle Use, No Respiratory Distress, Decreased Breath Sounds Cardiovascular: Regular Rate, Rhythm Capillary Refill: Less Than 3 Seconds Peripheral Pulses: 2+ Dorsalis Pedis (R), 2+ Left Dors-Pedis (L), 2+ Radial Pulses (R), 2+ Radial Pulses (L) Gastrointestinal: normal bowel sounds, non tender, soft Extremity: Normal Capillary Refill, Non Tender Neurologic/Psychiatric: Alert Skin: Normal Color, Warm/Dry Lymphatic: No Adenopathy Results Lab Laboratory Tests 07/05/19 05:03 07/06/19 07:13 Assessment/Plan Assessment/Plan Hypoxia probably secondary to COPD -Monitor Dehiscence of lumbar surgical wound -Wound care following -Wound vac - removed yesterday \\ -Labs pending Morbid obesity with OHS -Home CPAP machine Anemia -Monitor DM Tobacco use Debility ANIYA DUDLEY DO Jul 06, 2019 08:14
[2019-07-06 08:55] VITALS: BP 129/65
[2019-07-06] MEDS: TAMSULOSIN 0.4 MG (FLOMAX) CAP PO SCH (08:55)
[2019-07-06] MEDS: meTOprolol TARTRATE 25 MG (LOPRESSOR) TABLET PO SCH ×2 (08:55→21:29)
[2019-07-06] MEDS: FUROSEMIDE 40 MG (LASIX) TAB PO SCH (08:55)
[2019-07-06] MEDS: THEOPHYLLINE ER 400 MG TAB (THEO-24) PO SCH (08:55)
[2019-07-06] MEDS: GABAPENTIN 300 MG (NEURONTIN) CAP PO SCH (08:55)
[2019-07-06] MEDS: DICLOFENAC 1% GEL 100 GM (VOLTAREN) TUBE TOP SCH ×4 (09:02→21:31)
--- NOTE | 2019-07-06 11:55 | Occupational Ther Daily Note ---
OT Current Status-Daily Note Subjective Pt sitting in w/c, agrees to therapy. Pt reports 3/10 pain in back and left foot. Mental Status/Objective Therapy Code Descriptions/Definitions Functional [place] Measure: 0=Not Assessed/NA 4=Minimal Assistance 1=Total Assistance 5=Supervision or Setup 2=Maximal Assistance 6=Modified [place] 3=Moderate Assistance 7=Complete [place] Attachments: Drains, Alves Catheter, Oxygen ADL-Treatment Pt completed sponge bath while seated in w/c. Doff shirt without assist. Upper body bathing completed with SBA. Pt used long handled sponge to wash/dry lower legs and feet. Doffed socks with SBA using dressing stick. Don pullover shirt with SBA. Assist required to thread catheter through shorts. Pt required min assist to thread LE into shorts using lacrosse player. Stood with mod assist, required assist to pull pants up over hips. Pt donned right sock with min assist using sock aid. Did not use sock aid for left sock secondary to pain in left foot. Pt ambulated to restroom with FWW. Sat at sink to complete grooming tasks. Pt able to brush teeth and comb hair with modified independence. Pt fatigues quickly with ADL tasks and requires rest breaks and increased time. Therapy Code Descriptions/Definitions Functional [place] Measure: 0=Not Assessed/NA 4=Minimal Assistance 1=Total Assistance 5=Supervision or Setup 2=Maximal Assistance 6=Modified [place] 3=Moderate Assistance 7=Complete [place] Therapy Quality Codes: 6 Independent with activity with or without an assistive device 5 Patient requires set up or clean up by helper. Patient completes activity by themselves 4 Supervision or touching assist (CGA). [place] provide cues , steadying assist 3 The helper provides less than half the effort to complete the activity 2 The helper provides more than half the effort to complete the activity 1 Dependent. The helper does all the effort to complete an activity 7 Patient refused to complete or attempt activity 9 The patient did not perform the activity before the current illness or injury 88 Not attempted due to Medical conditions or safety concerns Grooming (FIM): 6 Oral Hygiene (QC): 6 Bathing (FIM): 4 Shower/Bathe Self (QC): 3 Upper Body (FIM): 5 Upper Body Dressing (QC): 4 Lower Body Dressing (FIM): 2 Lower Body Dressing (QC): 2 Other Treatment To therapy gym via w/c. Pt completed resistance peg activity with bilateral hands with 1# weights in place to increase strength and coordination skills. Pt completed task with brief rest break as needed. Arm bike x5 minutes to promote increased overall strength and activity tolerance needed for functional tasks. Pt returned to room. Sit to stand with mod assistx2. Transferred to bed with FWW. When completing sit to supine pt lowered upper body unexpectedly and required assist for LE and to reposition upper body in bed. All needs met. OT Short Term Goals Short Term Goals Time Frame: Jun 25, 2019 Grooming(FIM): 5 Bathing(FIM): 3 Lower Body Dressing(FIM): 3 Toileting(FIM): 3 Transfers (B,C,W/C) (FIM): 3 Toilet/Commode Transfer(FIM): 3 Additional Short Term Goals: 1-Demonstrate ADL Tasks, 2-Verbalize Understanding, 3-ImproveStrength/Leo 1=Demonstrate adherence to instructed precautions during ADL tasks. 2=Patient will verbalize/demonstrate understanding of assistive devices/modifications for ADL. 3=Patient will improve strength/tolerance for activity to enable patient to perform ADL's. OT Accounts Payable Bookkeeper Goals Accounts Payable Bookkeeper Goals Time Frame: Jul 09, 2019 Eating (FIM): 6 Eating (QC): 6 Groomin Oral Hygiene (QC): 6 Bathing(FIM): 5 Shower/Bathe Self (QC): 5 Upper Body Dressing(FIM): 6 Upper Body Dressing (QC): 6 Lower Body Dressing(FIM): 6 Lower Body Dressing (QC): 5 On/Off Footwear (QC): 5 Toileting(FIM): 6 Toileting Hygiene (QC): 6 Toilet/Commode Transfer(FIM): 6 Toilet/Commode Transfer (QC): 6 Shower Transfer(FIM): 5 Comprehension(FIM): 7 Expression (FIM): 7 Social Interaction(FIM): 7 Problem Solving(FIM): 7 Memory(FIM): 7 Additional Goals: 1-Demonstrate ADL Tasks, 2-Verbalize Understanding, 3- ImproveStrength/Leo 1=Demonstrate adherence to instructed precautions during ADL tasks. 2=Patient will verbalize/demonstrate understanding of assistive devices/modifications for ADL. 3=Patient will improve strength/tolerance for activity to enable patient to perform ADL's. OT Education/Plan Discharge Recommendations Plan/Recommendations: Continue POC Treatment Plan/Plan of Care Patient would benefit from OT for education, treatment and training to promote independence in ADL's, mobility, safety and/or upper extremity function for ADL's. Plan of Care: ADL Retraining, Functional Mobility, Group Exercise/Act as Ind, UE Funct Exercise/Act Treatment Duration: Jul 09, 2019 Frequency: At least 5 of 7 days/Wk (IRF) Estimated Hrs Per Day: 1.5 hours per day Agreement: Yes Rehab Potential: Fair Time/GCodes Start Time: 09:40 Stop Time: 11:10 Total Time Billed (hr/min): 90 Billed Treatment Time 1 visit, ADLx4(60minutes), EXx2(30minutes) FRED NEIL OT Jul 06, 2019 11:55
[2019-07-06] MEDS: ROFLUMILAST 500 MCG TAB (DALIRESP) PO SCH (14:11)
--- NOTE | 2019-07-06 14:22 | Physical Therapy Daily Note ---
PT Daily Note-Current Subjective Pt R sidelying upon arrival. Pt agrees to PT for Supine Ex due to fatigue. Pain Numeric Pain Scale: 7 Location: Dorsal Location Body Site: Back Pain Description: Ache, Pressure Mental Status Patient Orientation: Person, Place, Time, Situation Attachments: Oxygen, Drains, Alves Catheter Transfers Therapy Code Descriptions/Definitions Functional [place] Measure: 0=Not Assessed/NA 4=Minimal Assistance 1=Total Assistance 5=Supervision or Setup 2=Maximal Assistance 6=Modified [place] 3=Moderate Assistance 7=Complete [place] Therapy Quality Codes: 6 Independent with activity with or without an assistive device 5 Patient requires set up or clean up by helper. Patient completes activity by themselves 4 Supervision or touching assist (CGA). [place] provide cues , steadying assist 3 The helper provides less than half the effort to complete the activity 2 The helper provides more than half the effort to complete the activity 1 Dependent. The helper does all the effort to complete an activity 7 Patient refused to complete or attempt activity 9 The patient did not perform the activity before the current illness or injury 88 Not attempted due to Medical conditions or safety concerns Exercises Supine Ex: Ankle pumps, Quad Set, Heel Slides, Straight leg raise, Hip abd/add Supine Reps: 15 Treatments Pt completes Supine EX in bed with RB as needed. Doctoral student checks on pt during tx. Pt resting with all needs met, call light next to pt at end of tx. Assessment Current Status: Good Progress Pt continues to try Ex & movement despite reported pain in back during tx. PT Short Term Goals Short Term Goals Time Frame: Jun 25, 2019 Transfers (B,C,W/C) (FIM): 3 Gait (FIM): 1 Gait Distance Comment: 5' Gait Level of Assist: 3 Gait Assistive Device: FWW Wheelchair Distance: 80' x 5 PT Correction Goals Correction Goals PT Macadam Raker Goals Time Frame: Jul 09, 2019 Transfers (B,C,W/C) (FIM): 4 Sit to Lying (QC): 4 Lying-Sitting on Side/Bed(QC): 4 Sit to Stand (QC): 3 Rollin Roll Left to Right (QC): 4 Chair/Osc-fd-Brdwg Xfer(QC): 3 Car Transfer (QC): 3 Gait (FIM): 1 Distance: 20' Walk 10 feet (QC): 3 Walk 10ft-Uneven Surface(QC): 3 Gait Level of Assist: 4 Gait Assistive Device: FWW Wheelchair (FIM): 6 Distance: 150' Wheelchair Level of Assist: 5 Wheel 50 feet with 2 turns (QC: 4 PT Plan Problem List Problem List: Activity Tolerance, Functional Strength, Safety, Balance, Gait, Transfer, Bed Mobility, ROM Treatment/Plan Treatment Plan: Continue Plan of Care Treatment Plan: Bed Mobility, Concurrent Therapy, Education, Functional Activity Leo, Functional Strength, Group Therapy, Gait, Safety, Therapeutic Exercise, Transfers Treatment Duration: Jul 09, 2019 Frequency: At least 5 of 7 days/Wk (IRF) Estimated Hrs Per Day: 1.5 hours per day Patient and/or Family Agrees t: Yes Safety Risks/Education Patient Education: Transfer Techniques, Correct Positioning, Safety Issues Teaching Recipient: Patient Teaching Methods: Discussion Response to Teaching: Verbalize Understanding Time/GCodes Time In: 1320 Time Out: 1400 Total Billed Treatment Time: 40 Total Billed Treatment 1, EX x2 (30m) & FA (10m) G Codes Necessary: LUNA Richter PTA Jul 06, 2019 14:22
[2019-07-06 16:13] VITALS: BP 106/53
[2019-07-06] MEDS: ENOXAPARIN 40 MG/0.4 ML (LOVENOX) SYR SC SCH (16:25)
[2019-07-06] MEDS: QUEtiapine 25 MG (SEROquel) TAB IMMEDIATE RELEASE PO SCH (21:29)
[2019-07-06] MEDS: LORazepam 0.5 MG (ATIVAN) TABLET PO PRN (21:30)
[2019-07-06] MEDS: GABAPENTIN 600 MG (NEURONTIN) TAB PO SCH (21:30)
[2019-07-07] MEDS: RT-ALBUTEROL/IPRATROPIUM 3 ML (DUONEB) VIAL INH SCH ×4 (01:35→21:20)
[2019-07-07] MEDS: oxyCODONE/APAP 5/325MG (PERCOCET 5) TABLET PO PRN ×3 (03:32→20:19)
[2019-07-07 05:50] VITALS: BP 110/58
[2019-07-07] MEDS: CATHETER FLUSH 10 ML SYR IV SCH ×3 (06:50→20:17)
[2019-07-07] MEDS: KCL 20 MEQ TAB (K-DUR) PO SCH (06:51)
[2019-07-07] MEDS: amLODIPine 10 MG (NORVASC) TAB PO SCH (06:51)
[2019-07-07] MEDS: LACTOBACILLUS ACIDOPHILUS (PROBIOTIC) CAPSULE PO SCH ×4 (06:51→20:16)
[2019-07-07] MEDS: PANTOPRAZOLE 40 MG (PROTONIX) TAB PO SCH (06:51)
[2019-07-07] MEDS: SILDENAFIL 20 MG (REVATIO) TAB NON-FORMULARY PO SCH ×3 (06:51→20:17)
[2019-07-07] MEDS: MULTIVIT W/MINERALS TAB (THERAGRAN M) PO SCH (06:51)
[2019-07-07] MEDS: inSUlin ASPART (NovoLOG) 1 UNIT/0.01 ML (CHARGE PER UNIT) SC SCH ×4 (06:51→20:11)
[2019-07-07 07:08] LABS: BASOPHILS % (AUTO) 0 % (0-10); EOSINOPHILS % (AUTO) 0 % (0-10); HEMATOCRIT 26 % (40-54); HEMOGLOBIN 7.4 G/DL (13.3-17.7); LYMPHOCYTES # (AUTO) 1.3 X 10^3 (1.0-4.0); LYMPHOCYTES % (AUTO) 15 % (12-44); MEAN CORPUSCULAR HEMOGLOBIN 27 PG (25-34); MEAN CORPUSCULAR HGB CONC 29 G/DL (32-36); MEAN CORPUSCULAR VOLUME 92 FL (80-99); MEAN PLATELET VOLUME 10.1 FL (7.4-10.4); MONOCYTES # (AUTO) 0.9 X 10^3 (0.0-1.0); MONOCYTES % (AUTO) 10 % (0-12); NEUTROPHILS # (AUTO) 6.9 X 10^3 (1.8-7.8); NEUTROPHILS % (AUTO) 75 % (42-75); PLATELET COUNT 238 10^3/uL (130-400); RED CELL DISTRIBUTION WIDTH 18.2 % (10.0-14.5); WHITE BLOOD COUNT 9.2 10^3/uL (4.3-11.0)
--- NOTE | 2019-07-07 07:22 | NUR ---
Patients Nasal Cannula was not in the nares and so he was satting 87% on RA; RT replaced Nasal Cannula at 3 L and O2 sat came up to 92%; Patients BS was Exp Wheezes before and after Duoneb SVN BT. After SVN was given patient wanted a drink and he appeared to have trouble swallowing it, RT asked patient if he had trouble swallowing the water and he stated Yes he did and so RT asked if patient had been having trouble and he said No. RT informed assistant casino shift manager and day shift RN's about patient having trouble swallowing the water and the Day RN said she would keep an eye on him throughout the day
[2019-07-07 07:34] LABS: ALBUMIN 3.2 GM/DL (3.2-4.5); BILIRUBIN,TOTAL 0.4 MG/DL (0.1-1.0); CALCIUM 8.5 MG/DL (8.5-10.1); CREATININE SERUM 1.4 MG/DL (0.60-1.30); POTASSIUM 4.4 MMOL/L (3.6-5.0); TOTAL PROTEIN 6.3 GM/DL (6.4-8.2)
--- NOTE | 2019-07-07 07:45 | PM&R Progress Note ---
[facility] 07/07/19 0745: Subjective HPI/CC On Admission Date Seen by Provider: Jul 07, 2019 Time Seen by Provider: 07:20 CC: Critical illness debility HPI: This is a 68-year-old white male clinic patient of Dr. 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 Received report from Dr. Montesinos at [facility] in [place]. Patient was admitted there after difficulty weaning off the ventilator after he was intubated after failed noninvasive ventilator support after he was transferred from [facility] after his spinal surgery to [facility]. He remained on the ventilator for 3 weeks has some vocal cord dysfunction due to the long intubation status and most recently having urinary retention after Alves catheter was discontinued and currently has Klebsiella UTI maintained on Bactrim and Cipro double coverage because of such a significant organism. He had some significant hallucinations last week but that has been resolved. Patient currently remains on 2 L by nasal cannula of oxygen receives nebulizer treatments of DuoNeb every 6 hours and uses his home CPAP machine. His prior level of functioning was independent of ADLs and ambulation. I reviewed all of his current medications and on call pharmacy technician here at the hospital has confirmed accuracy and all those have been continued. He does have a PICC line in his right upper arm. Upon review of the history and physical the following information was obtained: Past medical history: diabetes mellitus on oral therapy, obstructive sleep apnea, COPD with chronic respiratory failure, polycythemia due to chronic respiratory failure, tobacco use, chronic low back pain, peripheral neuropathy, PVD, CAD previous bypass surgery, thrombocytopenia, morbid obesity with hypoventilation syndrome, congestive heart failure with acute on chronic diastolic type with volume overload at admission to [facility], hyperlipidemia, hypertension, carpal tunnel syndrome, severe DJD of the right knee. He also has a history of SVT. Subjective/Events-last exam Seen patient today and he was abnormally tired and groggy. Patient still has the hemo vac and denies any pain. PT/OT notes reviewed and patient is doing good No bowel movements since surgery Patient is urinating (catheter) handling new diet well. No problems swallowing Vitals are stable HgB 7.4, must monitor Glucose 184 Patient still has Bethanechol on hold Denies SOB, N/V and chest pain No new symptoms or concerns, patient denies chills. Lungs, heart and bowel sound normal No abdominal pain and patient states he is passing gas. Focused Exam Respiratory: Chest Non Tender, Lungs Clear, Normal Breath Sounds Cardiovascular: Regular Rate, Rhythm Objective Exam Vital Signs Vital Signs Date Time Temp Pulse Resp B/P (MAP) Pulse Ox O2 Delivery O2 Flow Rate FiO2 07/07/19 12:15 98.8 80 22 149/69 (95) 94 Nasal Cannula 3.50 Capillary Refill : Less Than 3 SecondsLess Than 3 Seconds General Appearance: No Apparent Distress, WD/WN, Chronically ill, Obese Respiratory: Chest Non Tender, Lungs Clear, Normal Breath Sounds, No Accessory Muscle Use, No Respiratory Distress Cardiovascular: Regular Rate, Rhythm (Bilateral lower leg edema) Gastrointestinal: Normal Bowel Sounds, Non Tender Back: Decreased Range of Motion Neurologic/Psychiatric: Alert Results/Procedures Lab Laboratory Tests 07/07/19 07:00 07/07/19 12:55 Patient resulted labs reviewed. FIM Transfers Therapy Code Descriptions/Definitions Functional [place] Measure: 0=Not Assessed/NA 4=Minimal Assistance 1=Total Assistance 5=Supervision or Setup 2=Maximal Assistance 6=Modified [place] 3=Moderate Assistance 7=Complete [place] Therapy Quality Codes: 6 Independent with activity with or without an assistive device 5 Patient requires set up or clean up by helper. Patient completes activity by themselves 4 Supervision or touching assist (CGA). [place] provide cues , steadying assist 3 The helper provides less than half the effort to complete the activity 2 The helper provides more than half the effort to complete the activity 1 Dependent. The helper does all the effort to complete an activity 7 Patient refused to complete or attempt activity 9 The patient did not perform the activity before the current illness or injury 88 Not attempted due to Medical conditions or safety concerns Transfers (B, C, W/C) (FIM): 3 Scootin Rollin Roll Left to Right (QC): 5 Supine to/from Sit: 3 (Pt very stiff and gaurded ) Sit to/from Stand: 3 (CGA from EOB elevated, Mod A of 2 with gait belt sit to stand from w/c x3 reps with pt pulling from walker and therapist stabilizing it, stand to sit verb inst for hand placement and contolled descent) Sit to Lying (QC): 3 Sit to Stand (QC): 3 Chair/Fyu-ao-Numxs Xfer(QC): 4 Bed to/from Chair: 4 Car Transfer (QC): 2 Gait Training Does the Patient Walk?: Yes Gait (FIM): 2 Distance (FIM): 8=995-71 ft Distance: 50,40 Walk 10 feet (QC): 4 Gait Level of Assist: 4 (CGA provided) Gait Persons Needed: 2 (extra person to follow with w/c and O2 tank, as well as with sit to stand transfer from w/c) Gait Assistive Device: FWW (bariatric) Wheelchair Training Does the Pt Use a Wheelchair?: Yes Wheelchair (FIM): 2 Wheelchair Distance: 2=873-78 ft Distance: 80' x 5 Wheelchair Level of Assist: 3 Wheel 50 ft with 2 turns (QC): 3 Wheel 150 ft (QC): 4 Type of Wheelchair: Manual Mental Status/Objective Comprehension: 7 Expression: 7 Social Interaction: 7 Problem Solvin Memory: 7 ADL-Treatment Feedin (Pt able to feed self without assist) Eating (QC): 6 Groomin Oral Hygiene (QC): 6 Bathin Bathing Location: L Arm, R Arm, Chest, Abdomen Shower/Bathe Self (QC): 3 Upper Extremity Dressin Upper Body Dressing (QC): 4 Lower Extremity Dressin Lower Body Dressing (QC): 2 On/Off Footwear (QC): 2 Toiletin (Pt. was incontinent of bowel while in bed. OT removed depend in bed, and placed bed betts per pt. request, as he had to go quickly. After toileting, OT cleansed brandyn area at bed level.) Toileting Hygiene (QC): 1 Toilet/Commode Transfer: 2 Toilet Transfer (QC): 2 Shower: 0 Assessment/Plan Assessment and Plan Assess & Plan/Chief Complaint Assessment and Plan Assess & Plan/Chief Complaint Assessment: (1) Myopathy (2) COPD (chronic obstructive pulmonary disease) (3) Respiratory failure, acute and chronic (4) Polycythemia (5) Tobacco use (6) Back pain (7) Neuropathy (8) PVD (peripheral vascular disease) (9) Hx of CABG (10) Obesity hypoventilation syndrome (11) Hypertension (12) Renal insufficiency (13) Hyperlipemia (14) Arthritis of right knee (15) Hx of supraventricular tachycardia (16) Obesity (17) Diabetes mellitus (18) SIDNEY on CPAP (19) CO2 narcosis (20) CAD (coronary artery disease) (21) Status post lumbar spine surgery for decompression of spinal cord (22) UTI Klebsiella s/p Bactrim and Cipro then DC when added Jorge and Vanc due to wound (23) Anxiety (24) Wound dehiscence requiring bedside debridement and placement of wound vac by Dr Carrasco 06/19/19 (25) Diarrhea w/mild dehydration now resolving (26) edema (27) Left leg radiculopathy severe will place on short low dose course of IV steroids Plan: Continue monitoring labs (CBC w/diff, CMP) Continue to closely monitor due to recent surgery IRF protocol Pain control High risk for C diff for any abx in future IS use along with Nebs Continue progress of PT with ambulation once cleared by surgery Encourage use of CPAP but refuses most of the time Continue to try and encourage VARUN wrap usage even though he is refusing Pay close attention after surgery due to patients history of intubation after surgical procedures Monitor I/O Continue to monitor glucose control Evaluate patients left foot if pain worsens continue wound care Monitor patient for bowel movements (has not gone since surgery) Consult doctors to restart meds on hold Continue to monitor vitals. Monitoring closely due to respiratory issue. Consult pulmonary for patients breathing Barriers that he needs addressed before he gets home include: 1. Patient has 2 steps at home and this does not have railings 2. Patient drives but will need assistance in and out and a consult to see if he is even capable of driving still 3. Patient really likes the walker and feels he would really benefit from one if he had one for himself. 4. Patient does not have someone who checks in on him. Would be good to organize family or friends to check in on him. 5. Does patient need at home oxygen (pulmonary consult to evaluate patients ability to be home and not on oxygen). 6. Patient needs an evaluation of his home to make sure he has items that pose a fall risk removed or placed somewhere сергей. 7. Patient needs an at home evaluation of his bathroom to make sure it is adequate for him to function. Areas of living that already have assistance include: 1. currently does not have items that he may need to meet his needs at home. Areas that still need to be discussed: 1. Patient being able to manage drug regimen without at home help (1) Myopathy (2) COPD (chronic obstructive pulmonary disease) (3) Polycythemia (4) Diabetes mellitus (5) Back pain (6) CAD (coronary artery disease) (7) Hyperlipemia (8) Neuropathy (9) Renal insufficiency (10) PVD (peripheral vascular disease) (11) Hypertension (12) Obesity (13) Respiratory failure, acute and chronic (14) Arthritis of right knee (15) Obesity hypoventilation syndrome (16) CO2 narcosis (17) SIDNEY on CPAP (18) Hx of supraventricular tachycardia (19) Decubitus ulcer (20) Urinary retention (21) BPH (benign prostatic hyperplasia) (22) UTI due to Klebsiella species (23) Hyperkalemia (24) Renal failure (25) CO2 retention (26) Postoperative wound dehiscence (27) Elevated brain natriuretic peptide (BNP) level (28) Clot retention of urine (29) Wound drainage (30) Hx of CABG (31) Status post lumbar spine surgery for decompression of spinal cord (32) Tobacco use CINTIA LONG DO 07/07/192049: Subjective Subjective/Events-last exam Alves catheter maintained. Hemovac is decreasing drainage. Hgb is 7.4, Creatine is 1.4. Ativan of 0.5 was given last night, appeared to have some over-sedation but that was transitioned to Xanax. I did speak with Dr. Ahn because he has had a change in status with being so lethargic and SOB and having to be two-person assist instead of one like yesterday, ABG showed low oxygen level. Dr. Ahn will monitor him closely and encourage use of BiPAP but this is noted to be a common theme of his to have respiratory difficulties two to three days after surgery and ends up being ventilated long-term. Family did look into [facility] at time of discharge from [facility] so likely will require that looking at all the barriers to his issues in order to return home. Review of Systems General: Fatigue Pulmonary: Dyspnea Neurological: Weakness Objective Exam General Appearance: No Apparent Distress, WD/WN, Chronically ill, Obese Respiratory: Chest Non Tender, Lungs Clear, Normal Breath Sounds, No Accessory Muscle Use, No Respiratory Distress Cardiovascular: Regular Rate, Rhythm (Bilateral lower leg edema) Gastrointestinal: Normal Bowel Sounds, Non Tender Extremity: Pedal Edema Neurologic/Psychiatric: Alert, Oriented x3, No Motor/Sensory Deficits, Normal Mood/Affect, cardiology consultants II-XII Norm as Tested Skin: Normal Color, Warm/Dry Assessment/Plan Assessment and Plan Assess & Plan/Chief Complaint Assessment and plan reviewed Patient with significant resp issues that may improve or if worsens will need ICU transfer Monitor closely Appreciate DR Ahn (1) Respiratory failure, acute and chronic (2) COPD (chronic obstructive pulmonary disease) (3) Polycythemia (4) Diabetes mellitus (5) Back pain (6) CAD (coronary artery disease) (7) Hyperlipemia (8) Myopathy (9) Neuropathy (10) Renal insufficiency (11) PVD (peripheral vascular disease) (12) Hypertension (13) Obesity (14) Arthritis of right knee (15) Obesity hypoventilation syndrome (16) CO2 narcosis (17) SIDNEY on CPAP (18) Hx of supraventricular tachycardia (19) Decubitus ulcer (20) Urinary retention (21) BPH (benign prostatic hyperplasia) (22) UTI due to Klebsiella species (23) Hyperkalemia (24) Renal failure (25) CO2 retention (26) Postoperative wound dehiscence (27) Elevated brain natriuretic peptide (BNP) level (28) Clot retention of urine (29) Wound drainage (30) Hx of CABG (31) Status post lumbar spine surgery for decompression of spinal cord (32) Tobacco use Supervisory-Addendum Brief Verification & Attestation Time: Verification & Attestat.: 08:30 Participated in pt care: history, MDM, physical Personally performed: exam, history, MDM, supervision of care Care discussed with: Medical Student Procedures: n/a Results interpretation: Verified all documentation Verification and Attestation of Medical Student E/M Service A medical student performed and documented this service in my presence. I reviewed and verified all information documented by the medical student and made modifications to such information, when appropriate. I personally performed the physical exam and medical decision making. Cintia Long, Jul 07, 2019,20:48 [facility] Jul 07, 2019 07:45 CINTIA LONG DO Jul 07, 2019 20:50
[2019-07-07] MEDS: meTOprolol TARTRATE 25 MG (LOPRESSOR) TABLET PO SCH ×2 (08:59→20:16)
[2019-07-07] MEDS: FUROSEMIDE 40 MG (LASIX) TAB PO SCH (08:59)
[2019-07-07] MEDS: TAMSULOSIN 0.4 MG (FLOMAX) CAP PO SCH (08:59)
[2019-07-07] MEDS: GABAPENTIN 300 MG (NEURONTIN) CAP PO SCH (08:59)
[2019-07-07] MEDS: DICLOFENAC 1% GEL 100 GM (VOLTAREN) TUBE TOP SCH ×4 (09:00→20:17)
[2019-07-07] MEDS: THEOPHYLLINE ER 400 MG TAB (THEO-24) PO SCH (09:02)
--- NOTE | 2019-07-07 09:58 | Physical Therapy Daily Note ---
PT Daily Note-Current Subjective Pt. up in w/c asleep. Pt. awakens with verbal stimuli but fall s asleep during conversation. Pt. noted to have poor head control in sitting in w/c, head bobbing back sharply. Nurse informs that pt. had ativan . Pain Location: No Pain Reported Appearance not alert, groggy , fading in out Mental Status Patient Orientation: Mumbles Attachments: Oxygen, Drains, Alves Catheter Transfers Therapy Code Descriptions/Definitions Functional [place] Measure: 0=Not Assessed/NA 4=Minimal Assistance 1=Total Assistance 5=Supervision or Setup 2=Maximal Assistance 6=Modified [place] 3=Moderate Assistance 7=Complete [place] Therapy Quality Codes: 6 Independent with activity with or without an assistive device 5 Patient requires set up or clean up by helper. Patient completes activity by themselves 4 Supervision or touching assist (CGA). [place] provide cues , steadying assist 3 The helper provides less than half the effort to complete the activity 2 The helper provides more than half the effort to complete the activity 1 Dependent. The helper does all the effort to complete an activity 7 Patient refused to complete or attempt activity 9 The patient did not perform the activity before the current illness or injury 88 Not attempted due to Medical conditions or safety concerns Transfers (B, C, W/C) (FIM): 2 Scootin Sit to/from Stand: 2 Bed to/from Chair: 2 pt. in w/c and appeared neck up supported so pt. was TRFd w/c to recliner for more support. This required max to mod assist of 2 for sit to stand and SPT. Pt. then in recliner with LEs elevated and pillow support, call toro at hand, O2 insitu Exercises Supine Ex: Bridging, Ankle pumps, Quad Set, Glut sets, Heel Slides, Short Arc Quads, Scooting, Hip abd/add Supine Reps: 15 Seated Therapy Exercises: Ankle pumps, Sit to stand, Long arc quads, Hip flexion, Hip abd/add Seated Reps: 10 needs constant stimuli to stay awake for even short time Treatments pt. to be seen in 3 30 minute Rxs this day in hopes he will be more alert next visit. 2nd visit as pt. is up in recliner it was reclined for U&L extremity ther ex and functional scooting. Pt. conts groggy and difficult to stay on task Assessment Current Status: Fair Progress pt. unable to stay awake long enough to participate well, move from w/c to recliner for safety reasons PT Short Term Goals Short Term Goals Time Frame: Jun 25, 2019 Transfers (B,C,W/C) (FIM): 3 Gait (FIM): 1 Gait Distance Comment: 5' Gait Level of Assist: 3 Gait Assistive Device: FWW Wheelchair Distance: 80' x 5 PT Materials Handling Coordinator Goals Materials Handling Coordinator Goals PT Halfway Goals Time Frame: Jul 09, 2019 Transfers (B,C,W/C) (FIM): 4 Sit to Lying (QC): 4 Lying-Sitting on Side/Bed(QC): 4 Sit to Stand (QC): 3 Rollin Roll Left to Right (QC): 4 Chair/Sxu-oz-Ijhst Xfer(QC): 3 Car Transfer (QC): 3 Gait (FIM): 1 Distance: 20' Walk 10 feet (QC): 3 Walk 10ft-Uneven Surface(QC): 3 Gait Level of Assist: 4 Gait Assistive Device: FWW Wheelchair (FIM): 6 Distance: 150' Wheelchair Level of Assist: 5 Wheel 50 feet with 2 turns (QC: 4 PT Plan Treatment/Plan Treatment Plan: Continue Plan of Care Treatment Plan: Bed Mobility, Concurrent Therapy, Education, Functional Activity Leo, Functional Strength, Group Therapy, Gait, Safety, Therapeutic Exercise, Transfers Treatment Duration: Jul 09, 2019 Frequency: At least 5 of 7 days/Wk (IRF) Estimated Hrs Per Day: 1.5 hours per day Patient and/or Family Agrees t: Yes Safety Risks/Education Patient Education: Transfer Techniques, Correct Positioning, Safety Issues Time/GCodes Time In: 930 (1100) Time Out: 1000 (1130) Total Billed Treatment Time: 60 Total Billed Treatment 1,EX40m,FA20m G Codes Necessary: REGIS Mancera BOBBIN CLEANER Jul 07, 2019 09:58
--- NOTE | 2019-07-07 11:14 | Occupational Ther Daily Note ---
OT Current Status-Daily Note Subjective Pt in bed, lethargic this morning. Nurse states pt had Ativan. Agreeable to treatment. Mental Status/Objective Therapy Code Descriptions/Definitions Functional [place] Measure: 0=Not Assessed/NA 4=Minimal Assistance 1=Total Assistance 5=Supervision or Setup 2=Maximal Assistance 6=Modified [place] 3=Moderate Assistance 7=Complete [place] Attachments: Drains, Alves Catheter, Oxygen ADL-Treatment Pt performed supine to sit with max assist. Pt sat EOB with min assist for balance, but fatigues quickly and requests to return to supine. Sit to supine with assist x2 for safety. Assist to scoot up in bed. Pt washed face with SBA using bilateral UE. Pt requires cues to stay awake and complete tasks. Supine to sit with max assist and increased time. Sit to stand with mod assist with bed raised. Pt transferred to w/c with mod assist using FWW. Pt requires increased time and cues for posture and safe walker use. Pt sitting in w/c, awake and talking with visitors after session. Therapy Code Descriptions/Definitions Functional [place] Measure: 0=Not Assessed/NA 4=Minimal Assistance 1=Total Assistance 5=Supervision or Setup 2=Maximal Assistance 6=Modified [place] 3=Moderate Assistance 7=Complete [place] Therapy Quality Codes: 6 Independent with activity with or without an assistive device 5 Patient requires set up or clean up by helper. Patient completes activity by themselves 4 Supervision or touching assist (CGA). [place] provide cues , steadying assist 3 The helper provides less than half the effort to complete the activity 2 The helper provides more than half the effort to complete the activity 1 Dependent. The helper does all the effort to complete an activity 7 Patient refused to complete or attempt activity 9 The patient did not perform the activity before the current illness or injury 88 Not attempted due to Medical conditions or safety concerns OT Short Term Goals Short Term Goals Time Frame: Jun 25, 2019 Grooming(FIM): 5 Bathing(FIM): 3 Lower Body Dressing(FIM): 3 Toileting(FIM): 3 Transfers (B,C,W/C) (FIM): 3 Toilet/Commode Transfer(FIM): 3 Additional Short Term Goals: 1-Demonstrate ADL Tasks, 2-Verbalize Understanding, 3-ImproveStrength/Leo 1=Demonstrate adherence to instructed precautions during ADL tasks. 2=Patient will verbalize/demonstrate understanding of assistive devices/modifications for ADL. 3=Patient will improve strength/tolerance for activity to enable patient to perform ADL's. OT Fdc Goals Caustic Plant Worker Goals Time Frame: Jul 09, 2019 Eating (FIM): 6 Eating (QC): 6 Groomin Oral Hygiene (QC): 6 Bathing(FIM): 5 Shower/Bathe Self (QC): 5 Upper Body Dressing(FIM): 6 Upper Body Dressing (QC): 6 Lower Body Dressing(FIM): 6 Lower Body Dressing (QC): 5 On/Off Footwear (QC): 5 Toileting(FIM): 6 Toileting Hygiene (QC): 6 Toilet/Commode Transfer(FIM): 6 Toilet/Commode Transfer (QC): 6 Shower Transfer(FIM): 5 Comprehension(FIM): 7 Expression (FIM): 7 Social Interaction(FIM): 7 Problem Solving(FIM): 7 Memory(FIM): 7 Additional Goals: 1-Demonstrate ADL Tasks, 2-Verbalize Understanding, 3- ImproveStrength/Leo 1=Demonstrate adherence to instructed precautions during ADL tasks. 2=Patient will verbalize/demonstrate understanding of assistive devices/modifications for ADL. 3=Patient will improve strength/tolerance for activity to enable patient to perform ADL's. OT Education/Plan Discharge Recommendations Plan/Recommendations: Continue POC Treatment Plan/Plan of Care Patient would benefit from OT for education, treatment and training to promote independence in ADL's, mobility, safety and/or upper extremity function for ADL's. Plan of Care: ADL Retraining, Functional Mobility, Group Exercise/Act as Ind, UE Funct Exercise/Act Treatment Duration: Jul 09, 2019 Frequency: At least 5 of 7 days/Wk (IRF) Estimated Hrs Per Day: 1.5 hours per day Agreement: Yes Rehab Potential: Fair Time/GCodes Start Time: 08:00 Stop Time: 08:40 Total Time Billed (hr/min): 40 Billed Treatment Time 1 visit, FAx3(40minutes) FRED NEIL OT Jul 07, 2019 11:14
--- NOTE | 2019-07-07 11:43 | Occupational Ther Daily Note ---
OT Current Status-Daily Note Subjective Pt sitting in recliner, agrees to treatment. Pt reports 7/10 pain in left foot, but states he has no other pain. Mental Status/Objective Therapy Code Descriptions/Definitions Functional [place] Measure: 0=Not Assessed/NA 4=Minimal Assistance 1=Total Assistance 5=Supervision or Setup 2=Maximal Assistance 6=Modified [place] 3=Moderate Assistance 7=Complete [place] Attachments: Drains, Alves Catheter, Oxygen ADL-Treatment Pt agreed to seated ADLs. Pt doffed shirt with assist to date puller head. Upper body bathing completed with SBA and increased time. Pt able to apply deodorant to bilateral underarms without assist. Pt threads bilateral UE into sleeves and pulls over head, but requires assist to pull down in back. Pt uses long handled sponge to wash lower legs and feet. Pt sit to stand with max assist from lift chair. Assist x2 for lower body dressing, one to assist with standing and one to pull up pants. Total assist for socks. Pt completed grooming tasks while seated. Applied toothpaste to toothbrush and brushed teeth with set up. Assisted pt to wash hair using shampoo cap. Pt combed hair with set up using bilateral UE. Pt is lethargic during session, but awakens, converses, and completes tasks with cues and increased time. Assisted pt to reposition in chair. Sitting in recliner with needs met after session. Therapy Code Descriptions/Definitions Functional [place] Measure: 0=Not Assessed/NA 4=Minimal Assistance 1=Total Assistance 5=Supervision or Setup 2=Maximal Assistance 6=Modified [place] 3=Moderate Assistance 7=Complete [place] Therapy Quality Codes: 6 Independent with activity with or without an assistive device 5 Patient requires set up or clean up by helper. Patient completes activity by themselves 4 Supervision or touching assist (CGA). [place] provide cues , steadying assist 3 The helper provides less than half the effort to complete the activity 2 The helper provides more than half the effort to complete the activity 1 Dependent. The helper does all the effort to complete an activity 7 Patient refused to complete or attempt activity 9 The patient did not perform the activity before the current illness or injury 88 Not attempted due to Medical conditions or safety concerns Grooming (FIM): 5 Oral Hygiene (QC): 4 Bathing (FIM): 2 Upper Body (FIM): 3 Lower Body Dressing (FIM): 1 OT Short Term Goals Short Term Goals Time Frame: Jun 25, 2019 Grooming(FIM): 5 Bathing(FIM): 3 Lower Body Dressing(FIM): 3 Toileting(FIM): 3 Transfers (B,C,W/C) (FIM): 3 Toilet/Commode Transfer(FIM): 3 Additional Short Term Goals: 1-Demonstrate ADL Tasks, 2-Verbalize Understanding, 3-ImproveStrength/Leo 1=Demonstrate adherence to instructed precautions during ADL tasks. 2=Patient will verbalize/demonstrate understanding of assistive devices/modifications for ADL. 3=Patient will improve strength/tolerance for activity to enable patient to perform ADL's. OT Exterior Door Installer Goals Alf Goals Time Frame: Jul 09, 2019 Eating (FIM): 6 Eating (QC): 6 Groomin Oral Hygiene (QC): 6 Bathing(FIM): 5 Shower/Bathe Self (QC): 5 Upper Body Dressing(FIM): 6 Upper Body Dressing (QC): 6 Lower Body Dressing(FIM): 6 Lower Body Dressing (QC): 5 On/Off Footwear (QC): 5 Toileting(FIM): 6 Toileting Hygiene (QC): 6 Toilet/Commode Transfer(FIM): 6 Toilet/Commode Transfer (QC): 6 Shower Transfer(FIM): 5 Comprehension(FIM): 7 Expression (FIM): 7 Social Interaction(FIM): 7 Problem Solving(FIM): 7 Memory(FIM): 7 Additional Goals: 1-Demonstrate ADL Tasks, 2-Verbalize Understanding, 3-ImproveStrength/Leo 1=Demonstrate adherence to instructed precautions during ADL tasks. 2=Patient will verbalize/demonstrate understanding of assistive devices/modifications for ADL. 3=Patient will improve strength/tolerance for activity to enable patient to perf orm ADL's. OT Education/Plan Discharge Recommendations Plan/Recommendations: Continue POC Treatment Plan/Plan of Care Patient would benefit from OT for education, treatment and training to promote independence in ADL's, mobility, safety and/or upper extremity function for ADL's. Plan of Care: ADL Retraining, Functional Mobility, Group Exercise/Act as Ind, UE Funct Exercise/Act Treatment Duration: Jul 09, 2019 Frequency: At least 5 of 7 days/Wk (IRF) Estimated Hrs Per Day: 1.5 hours per day Agreement: Yes Rehab Potential: Fair Time/GCodes Start Time: 10:00 Stop Time: 10:50 Total Time Billed (hr/min): 50 Billed Treatment Time 1 visit, ADLx3(50minutes) FRED NEIL OT Jul 07, 2019 11:43
--- NOTE | 2019-07-07 12:05 | NUR ---
This RN and aide, helped pt back to bed. Pt is requiring 2 assist, when pt was only requiring 1 assist yesterday. Pt has increased SOB and weakness. Pt is in and out of sleep. Pt will wake up with verbal stimuli and hold a conversation but is unable to stay awake post conversation. Dr. Law called and orders received. Dr. Ahn called and orders received.
[2019-07-07 12:15] VITALS: BP 149/69
--- NOTE | 2019-07-07 12:45 | NUR ---
Respiratory on floor to obtain ABG.
--- NOTE | 2019-07-07 12:49 | NUR ---
BRIDGE TEACHER met with patient and daughter to review team conference summary. Patient is currently performing all PT activities with moderate assistance, transfers with min assist and lower body ADL's with max assist. Patient is also experiencing an increase in LE edema, increased shortness breath and elevated CO2 levels, Dr. Ahn is following closely as respiratory status appears to be worsening. As patient has struggled to make significant progress throughout ARU stay, Team has recommended patient proceed with SNF placement, as his recovery will take longer than time allotted in rehab. BRIDGE TEACHER reviewed this recommendations, both patient and daughter were expecting this information. BRIDGE TEACHER provided a Medicare approved local SNF list for patient and daughter to review. BRIDGE TEACHER will re-visit tomorrow to obtain choices. Team intends to discuss patient's progress on Friday, 07/12. If clinically stable at that time, patient can proceed with discharge early in the week, if acceptance for placement.
[2019-07-07 13:09] LABS: BASOPHILS % (AUTO) 0 % (0-10); EOSINOPHILS % (AUTO) 0 % (0-10); HEMATOCRIT 26 % (40-54); HEMOGLOBIN 7.6 G/DL (13.3-17.7); LYMPHOCYTES # (AUTO) 1.4 X 10^3 (1.0-4.0); LYMPHOCYTES % (AUTO) 15 % (12-44); MEAN CORPUSCULAR HEMOGLOBIN 27 PG (25-34); MEAN CORPUSCULAR HGB CONC 30 G/DL (32-36); MEAN CORPUSCULAR VOLUME 92 FL (80-99); MEAN PLATELET VOLUME 10.2 FL (7.4-10.4); MONOCYTES # (AUTO) 0.9 X 10^3 (0.0-1.0); MONOCYTES % (AUTO) 10 % (0-12); NEUTROPHILS % (AUTO) 75 % (42-75); PLATELET COUNT 226 10^3/uL (130-400); WHITE BLOOD COUNT 9.4 10^3/uL (4.3-11.0)
[2019-07-07 13:09] LABS: ABG BASE EXCESS 6.4 MMOL/L (-2.5-2.5); ABG OXYGEN SATURATION 84 % (94-100); ABG PCO2 56 MMHG (35-45); ABG PH 7.37 (7.37-7.43); ABG PO2 53 MMHG (79-93); ABG TCO2 33.3 MMOL/L (21.0-31.0); ALLENS TEST YES-POS; PATIENT TEMP 98.8; VENTILATOR NO
[2019-07-07 13:10] LABS: INSPIRED O2 3
[2019-07-07 13:24] LABS: CALCIUM 8.8 MG/DL (8.5-10.1); CREATININE SERUM 1.43 MG/DL (0.60-1.30); MAGNESIUM 1.3 MG/DL (1.8-2.4); PHOSPHORUS 3.1 MG/DL (2.3-4.7); POTASSIUM 4.5 MMOL/L (3.6-5.0)
--- NOTE | 2019-07-07 13:27 | Diagnostic Imaging Report ---
INDICATION: Shortness of breath. EXAMINATION: Portable chest at 1:12 p.m. FINDINGS: Right upper extremity PICC line tip projects over the SVC. There are postop changes from median sternotomy. There is cardiomegaly with pulmonary vascular congestion. Lungs are clear. There are no effusions or pneumothoraces. IMPRESSION: Postsurgical changes in the chest. There is cardiomegaly with pulmonary venous hypertension. Dictated by: Dictated on workstation # [id number]
[2019-07-07] MEDS ORDERED: FUROSEMIDE 40 MG/4 ML INJ (LASIX) IVP NR (14:02)
--- NOTE | 2019-07-07 14:13 | Pulmonary Progress Note ---
Subjective Time Seen by a Provider: 14:12 Subjective/Events-last exam Pt has more SOB today. Sepsis Event Evaluation Height, Weight, BMI Height: 5'10.00" Weight: 287lbs. 8.0oz. [id number]; 38.0 BMI Method:Stated Exam Exam Vital Signs Date Time Temp Pulse Resp B/P (MAP) Pulse Ox O2 Delivery O2 Flow Rate FiO2 07/07/19 12:15 98.8 80 22 149/69 (95) 94 Nasal Cannula 3.50 07/07/19 09:00 Nasal Cannula 3.50 07/07/19 07:10 92 Nasal Cannula 3.00 07/07/19 05:50 99.2 71 20 110/58 (75) 95 Nasal Cannula 3.00 07/06/19 20:20 Nasal Cannula 3.00 07/06/19 16:13 99.1 80 16 106/53 (70) 90 Nasal Cannula 3.00 07/06/19 14:55 91 Nasal Cannula 3.00 I & O 07/07/19 07:00 Intake Total 1440 ml Output Total 1900 ml Balance -460 ml Height & Weight Height: 5'10.00" Weight: 287lbs. 8.0oz. [id number]; 38.0 BMI Method:Stated General Appearance: No Apparent Distress, WD/WN HEENT: PERRL/EOMI, Normal ENT Inspection, Pharynx Normal Neck: Full Range of Motion, Non Tender, Supple Respiratory: Chest Non Tender, No Accessory Muscle Use, No Respiratory Distress, Decreased Breath Sounds Cardiovascular: Regular Rate, Rhythm Capillary Refill: Less Than 3 Seconds Peripheral Pulses: 2+ Dorsalis Pedis (R), 2+ Left Dors-Pedis (L), 2+ Radial Pulses (R), 2+ Radial Pulses (L) Gastrointestinal: normal bowel sounds, non tender, soft Extremity: Normal Capillary Refill, Non Tender Neurologic/Psychiatric: Alert Skin: Normal Color, Warm/Dry Lymphatic: No Adenopathy Results Lab Laboratory Tests 07/06/19 07:13 07/07/19 07:00 07/07/19 12:55 Assessment/Plan Assessment/Plan Hypoxia probably secondary to COPD -Monitor Pt has worsening Fatigue with SOB -He has not been using CPAP at night -Pt also got a dose of ativan yesterday -lasix 40mg IV x 1 -Check ABG, labs and CXR Dehiscence of lumbar surgical wound -Wound care following -Wound vac - removed yesterday \\ -Labs pending Morbid obesity with OHS -Home CPAP machine Anemia -Monitor DM Tobacco use Debility ANIYA DUDLEY DO Jul 07, 2019 14:12
[2019-07-07] MEDS: MAGNESIUM 1 GM/100 ML IVPB 100 ML IV SCH ×4 (14:14→16:13)
[2019-07-07] MEDS: ROFLUMILAST 500 MCG TAB (DALIRESP) PO SCH (14:14)
--- NOTE | 2019-07-07 14:23 | Physical Therapy Daily Note ---
PT Daily Note-Current Subjective Pt. in bed , continues lethargic, c/o pain in left foot and leg and 4-5/10 and increases with attempts at ther ex Pain Numeric Pain Scale: 5-Moderate Pain Location: Left Location Body Site: Foot Pain Description: Ache Mental Status Patient Orientation: Person, Place, Listless Attachments: Oxygen, Drains Transfers Therapy Code Descriptions/Definitions Functional [place] Measure: 0=Not Assessed/NA 4=Minimal Assistance 1=Total Assistance 5=Supervision or Setup 2=Maximal Assistance 6=Modified [place] 3=Moderate Assistance 7=Complete [place] Therapy Quality Codes: 6 Independent with activity with or without an assistive device 5 Patient requires set up or clean up by helper. Patient completes activity by themselves 4 Supervision or touching assist (CGA). [place] provide cues , steadying assist 3 The helper provides less than half the effort to complete the activity 2 The helper provides more than half the effort to complete the activity 1 Dependent. The helper does all the effort to complete an activity 7 Patient refused to complete or attempt activity 9 The patient did not perform the activity before the current illness or injury 88 Not attempted due to Medical conditions or safety concerns Rollin Exercises Supine Ex: Ankle pumps (assisted), Rolling (assisted), Heel Slides (assisted), Scooting (assisted), Straight leg raise (ssisted), Hip abd/add (assited) Supine Reps: 12 Treatments pt. with poor tolerance of exercise, Rx done in 2 short Rxs, Dr Ahn present and shares that pt. should be encouraged to use CPAP at night and feels this has contributed to pts extreme fatigue Assessment Current Status: Poor Progress poor tolerance for any part of Rx. pain and lethargy prevail PT Short Term Goals Short Term Goals Time Frame: Jun 25, 2019 Transfers (B,C,W/C) (FIM): 3 Gait (FIM): 1 Gait Distance Comment: 5' Gait Level of Assist: 3 Gait Assistive Device: FWW Wheelchair Distance: 80' x 5 PT Fpc Goals Quantitative Equity Head Goals PT Quantitative Equity Head Goals Time Frame: Jul 09, 2019 Transfers (B,C,W/C) (FIM): 4 Sit to Lying (QC): 4 Lying-Sitting on Side/Bed(QC): 4 Sit to Stand (QC): 3 Rollin Roll Left to Right (QC): 4 Chair/Hbn-vp-Eaidr Xfer(QC): 3 Car Transfer (QC): 3 Gait (FIM): 1 Distance: 20' Walk 10 feet (QC): 3 Walk 10ft-Uneven Surface(QC): 3 Gait Level of Assist: 4 Gait Assistive Device: FWW Wheelchair (FIM): 6 Distance: 150' Wheelchair Level of Assist: 5 Wheel 50 feet with 2 turns (QC: 4 PT Plan Treatment/Plan Treatment Plan: Continue Plan of Care (as tolerated) Treatment Plan: Bed Mobility, Concurrent Therapy, Education, Functional Activity Leo, Functional Strength, Group Therapy, Gait, Safety, Therapeutic Exercise, Transfers Treatment Duration: Jul 09, 2019 Frequency: At least 5 of 7 days/Wk (IRF) Estimated Hrs Per Day: 1.5 hours per day Patient and/or Family Agrees t: Yes Safety Risks/Education Patient Education: Correct Positioning, Disease Process Teaching Recipient: Patient Teaching Methods: Discussion Response to Teaching: Verbalize Understanding, Reinforcement Needed reinforced use of CPAP Time/GCodes Time In: 1330 (1355) Time Out: 1340 (1415) Total Billed Treatment Time: 30 Total Billed Treatment 1,FA15m,EX15m G Codes Necessary: REGIS Mancera CAR BODY DESIGNER Jul 07, 2019 14:23
[2019-07-07] MEDS: ENOXAPARIN 40 MG/0.4 ML (LOVENOX) SYR SC SCH (16:14)
[2019-07-07 17:30] VITALS: BP 132/61
[2019-07-07] MEDS ORDERED: risperiDONE 1 MG (RisperDAL) TAB PO ONE (20:00)
[2019-07-07] MEDS: QUEtiapine 25 MG (SEROquel) TAB IMMEDIATE RELEASE PO SCH (20:16)
[2019-07-07] MEDS: GABAPENTIN 600 MG (NEURONTIN) TAB PO SCH (20:18)
[2019-07-08 05:55] VITALS: BP 102/40
[2019-07-08] MEDS: KCL 20 MEQ TAB (K-DUR) PO SCH (06:41)
[2019-07-08] MEDS: MULTIVIT W/MINERALS TAB (THERAGRAN M) PO SCH (06:41)
[2019-07-08] MEDS: amLODIPine 10 MG (NORVASC) TAB PO SCH (06:41)
[2019-07-08] MEDS: SILDENAFIL 20 MG (REVATIO) TAB NON-FORMULARY PO SCH ×3 (06:41→20:27)
[2019-07-08] MEDS: LACTOBACILLUS ACIDOPHILUS (PROBIOTIC) CAPSULE PO SCH ×4 (06:41→20:27)
[2019-07-08] MEDS: PANTOPRAZOLE 40 MG (PROTONIX) TAB PO SCH (06:41)
[2019-07-08] MEDS: CATHETER FLUSH 10 ML SYR IV SCH ×3 (06:42→20:27)
[2019-07-08] MEDS: inSUlin ASPART (NovoLOG) 1 UNIT/0.01 ML (CHARGE PER UNIT) SC SCH ×4 (06:42→21:23)
[2019-07-08] MEDS: RT-ALBUTEROL/IPRATROPIUM 3 ML (DUONEB) VIAL INH SCH ×3 (06:46→21:15)
[2019-07-08] MEDS: GABAPENTIN 300 MG (NEURONTIN) CAP PO SCH (08:29)
[2019-07-08] MEDS: meTOprolol TARTRATE 25 MG (LOPRESSOR) TABLET PO SCH ×2 (08:29→20:27)
[2019-07-08] MEDS: TAMSULOSIN 0.4 MG (FLOMAX) CAP PO SCH (08:29)
[2019-07-08] MEDS: FUROSEMIDE 40 MG (LASIX) TAB PO SCH (08:29)
[2019-07-08] MEDS: DICLOFENAC 1% GEL 100 GM (VOLTAREN) TUBE TOP SCH ×4 (08:29→20:28)
[2019-07-08] MEDS: THEOPHYLLINE ER 400 MG TAB (THEO-24) PO SCH (08:30)
[2019-07-08] MEDS: SENNOSIDES 8.6 MG (SENOKOT) TAB PO PRN (08:48)
--- NOTE | 2019-07-08 09:22 | PM&R Progress Note ---
Subjective HPI/CC On Admission Date Seen by Provider: Jul 08, 2019 Time Seen by Provider: 09:00 CC: Critical illness debility HPI: This is a 68-year-old white male clinic patient of Dr. 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 Received report from Dr. Montesinos at [facility] in [place]. Patient was admitted there after difficulty weaning off the ventilator after he was intubated after failed noninvasive ventilator support after he was transferred from [facility] after his spinal surgery to [facility]. He remained on the ventilator for 3 weeks has some vocal cord dysfunction due to the long intubation status and most recently having urinary retention after Alves catheter was discontinued and currently has Klebsiella UTI maintained on Bactrim and Cipro double coverage because of such a significant organism. He had some significant hallucinations last week but that has been resolved. Patient currently remains on 2 L by nasal cannula of oxygen receives nebulizer treatments of DuoNeb every 6 hours and uses his home CPAP machine. His prior level of functioning was independent of ADLs and ambulation. I reviewed all of his current medications and pharmacy salesperson here at the hospital has confirmed accuracy and all those have been continued. He does have a PICC line in his right upper arm. Upon review of the history and physical the following information was obtained: Past medical history: diabetes mellitus on oral therapy, obstructive sleep apnea, COPD with chronic respiratory failure, polycythemia due to chronic respiratory failure, tobacco use, chronic low back pain, peripheral neuropathy, PVD, CAD previous bypass surgery, thrombocytopenia, morbid obesity with hypoventilation syndrome, congestive heart failure with acute on chronic diastolic type with volume overload at admission to [facility], hyperlipidemia, hypertension, carpal tunnel syndrome, severe DJD of the right knee. He also has a history of SVT. Subjective/Events-last exam [facility] is preferred for skilled and the family and the Pt know that's the next step. On 5 L of oxygen now. Pt appears to be much improved and now sitting in chair and eating his breakfast. Reports he is hungry. Pain is well controlled. Hemovac is still in place and managed by spine surgery. No significant issues persist but I did review all of his labs work and chest X- ray and I really appreciate Dr. Ahn since it appears that he is not as high risk for respiratory failure as he was yesterday. He did use his CPAP for four hours. Review of Systems General: Fatigue Pulmonary: Dyspnea Neurological: Weakness Objective Exam Vital Signs Vital Signs Date Time Temp Pulse Resp B/P (MAP) Pulse Ox O2 Delivery O2 Flow Rate FiO2 07/08/19 15:46 98.4 76 16 124/64 (84) 90 Nasal Cannula 3.00 Capillary Refill : Less Than 3 SecondsLess Than 3 Seconds General Appearance: No Apparent Distress, WD/WN, Chronically ill, Obese HEENT: PERRL/EOMI, Normal ENT Inspection, Pharynx Normal Neck: Full Range of Motion, Non Tender, Supple Respiratory: Chest Non Tender, Lungs Clear, Normal Breath Sounds, No Accessory Muscle Use, No Respiratory Distress Cardiovascular: Regular Rate, Rhythm (Bilateral lower leg edema) Gastrointestinal: Normal Bowel Sounds, Non Tender Back: Decreased Range of Motion Extremity: Pedal Edema Neurologic/Psychiatric: Alert, Oriented x3, No Motor/Sensory Deficits, Normal Mood/Affect, quantitative research analyst II-XII Norm as Tested Skin: Normal Color, Warm/Dry Lymphatic: No Adenopathy Results/Procedures Lab Patient resulted labs reviewed. FIM Transfers Therapy Code Descriptions/Definitions Functional [place] Measure: 0=Not Assessed/NA 4=Minimal Assistance 1=Total Assistance 5=Supervision or Setup 2=Maximal Assistance 6=Modified [place] 3=Moderate Assistance 7=Complete [place] Therapy Quality Codes: 6 Independent with activity with or without an assistive device 5 Patient requires set up or clean up by helper. Patient completes activity by themselves 4 Supervision or touching assist (CGA). [place] provide cues , steadying assist 3 The helper provides less than half the effort to complete the activity 2 The helper provides more than half the effort to complete the activity 1 Dependent. The helper does all the effort to complete an activity 7 Patient refused to complete or attempt activity 9 The patient did not perform the activity before the current illness or injury 88 Not attempted due to Medical conditions or safety concerns Transfers (B, C, W/C) (FIM): 2 Scootin Rollin Roll Left to Right (QC): 5 Supine to/from Sit: 3 (Pt very stiff and gaurded ) Sit to/from Stand: 2 Sit to Lying (QC): 3 Sit to Stand (QC): 3 Chair/Elu-ce-Mxitv Xfer(QC): 4 Bed to/from Chair: 2 Car Transfer (QC): 2 Gait Training Does the Patient Walk?: Yes Gait (FIM): 2 Distance (FIM): 4=708-12 ft Distance: 50,40 Walk 10 feet (QC): 4 Gait Level of Assist: 4 (CGA provided) Gait Persons Needed: 2 (extra person to follow with w/c and O2 tank, as well as with sit to stand transfer from w/c) Gait Assistive Device: FWW (bariatric) Wheelchair Training Does the Pt Use a Wheelchair?: Yes Wheelchair (FIM): 2 Wheelchair Distance: 3=396-01 ft Distance: 80' x 5 Wheelchair Level of Assist: 3 Wheel 50 ft with 2 turns (QC): 3 Wheel 150 ft (QC): 4 Type of Wheelchair: Manual Mental Status/Objective Comprehension: 7 Expression: 7 Social Interaction: 7 Problem Solvin Memory: 7 ADL-Treatment Feedin (Pt able to feed self without assist) Eating (QC): 6 Groomin Oral Hygiene (QC): 4 Bathin Bathing Location: L Arm, R Arm, Chest, Abdomen Shower/Bathe Self (QC): 3 Upper Extremity Dressin Upper Body Dressing (QC): 4 Lower Extremity Dressin Lower Body Dressing (QC): 2 On/Off Footwear (QC): 2 Toiletin (Pt. was incontinent of bowel while in bed. OT removed depend in bed, and placed bed betts per pt. request, as he had to go quickly. After toile ting, OT cleansed brandyn area at bed level.) Toileting Hygiene (QC): 1 Toilet/Commode Transfer: 2 Toilet Transfer (QC): 2 Shower: 0 Assessment/Plan Assessment and Plan Assess & Plan/Chief Complaint Assessment: (1) Myopathy (2) COPD (chronic obstructive pulmonary disease) (3) Respiratory failure, acute and chronic (4) Polycythemia (5) Tobacco use (6) Back pain (7) Neuropathy (8) PVD (peripheral vascular disease) (9) Hx of CABG (10) Obesity hypoventilation syndrome (11) Hypertension (12) Renal insufficiency (13) Hyperlipemia (14) Arthritis of right knee (15) Hx of supraventricular tachycardia (16) Obesity (17) Diabetes mellitus (18) SIDNEY on CPAP (19) CO2 narcosis (20) CAD (coronary artery disease) (21) Status post lumbar spine surgery for decompression of spinal cord (22) UTI Klebsiella s/p Bactrim and Cipro then DC when added Jorge and Vanc due to wound (23) Anxiety (24) Wound dehiscence requiring bedside debridement and placement of wound vac by Dr Carrasco 06/19/19 (25) Diarrhea w/mild dehydration now resolving (26) edema (27) Left leg radiculopathy severe will place on short low dose course of IV steroids Plan: Continue monitoring labs (CBC w/diff, CMP) Continue to closely monitor due to recent surgery IRF protocol Pain control High risk for C diff for any abx in future IS use along with Nebs Continue progress of PT with ambulation once cleared by surgery Encourage use of CPAP but refuses most of the time Continue to try and encourage VARUN wrap usage even though he is refusing Pay close attention after surgery due to patients history of intubation after surgical procedures Monitor I/O Continue to monitor glucose control Evaluate patients left foot if pain worsens continue wound care Monitor patient for bowel movements (has not gone since surgery) Consult doctors to restart meds on hold Continue to monitor vitals. Monitoring closely due to respiratory issue. Consult pulmonary for patients breathing Barriers that he needs addressed before he gets home include: 1. Patient has 2 steps at home and this does not have railings 2. Patient drives but will need assistance in and out and a consult to see if he is even capable of driving still 3. Patient really likes the walker and feels he would really benefit from one if he had one for himself. 4. Patient does not have someone who checks in on him. Would be good to organize family or friends to check in on him. 5. Does patient need at home oxygen (pulmonary consult to evaluate patients ability to be home and not on oxygen). 6. Patient needs an evaluation of his home to make sure he has items that pose a fall risk removed or placed somewhere сергей. 7. Patient needs an at home evaluation of his bathroom to make sure it is adequate for him to function. Areas of living that already have assistance include: 1. currently does not have items that he may need to meet his needs at home. Areas that still need to be discussed: 1. Patient being able to manage drug regimen without at home help (1) Myopathy (2) COPD (chronic obstructive pulmonary disease) (3) Polycythemia (4) Diabetes mellitus (5) Back pain (6) CAD (coronary artery disease) (7) Hyperlipemia (8) Neuropathy (9) Renal insufficiency (10) PVD (peripheral vascular disease) (11) Hypertension (12) Obesity (13) Respiratory failure, acute and chronic (14) Arthritis of right knee (15) Obesity hypoventilation syndrome (16) CO2 narcosis (17) SIDNEY on CPAP (18) Hx of supraventricular tachycardia (19) Decubitus ulcer (20) Urinary retention (21) BPH (benign prostatic hyperplasia) (22) UTI due to Klebsiella species (23) Hyperkalemia (24) Renal failure (25) CO2 retention (26) Postoperative wound dehiscence (27) Elevated brain natriuretic peptide (BNP) level (28) Clot retention of urine (29) Wound drainage (30) Hx of CABG (31) Status post lumbar spine surgery for decompression of spinal cord (32) Tobacco use Assessment and plan reviewed Patient with significant resp issues that may improve or if worsens will need ICU transfer but improved today Monitor closely Appreciate DR Ahn (1) Respiratory failure, acute and chronic (2) COPD (chronic obstructive pulmonary disease) (3) Polycythemia (4) Diabetes mellitus Status: Chronic (5) Back pain (6) CAD (coronary artery disease) Status: Chronic (7) Hyperlipemia (8) Myopathy (9) Neuropathy (10) Renal insufficiency (11) PVD (peripheral vascular disease) (12) Hypertension (13) Obesity Status: Chronic (14) Arthritis of right knee (15) Obesity hypoventilation syndrome (16) CO2 narcosis Status: Acute (17) SIDNEY on CPAP Status: Chronic (18) Hx of supraventricular tachycardia (19) Decubitus ulcer (20) Urinary retention (21) BPH (benign prostatic hyperplasia) (22) UTI due to Klebsiella species (23) Hyperkalemia Status: Acute (24) Renal failure Status: Acute (25) CO2 retention (26) Postoperative wound dehiscence (27) Elevated brain natriuretic peptide (BNP) level Status: Acute (28) Clot retention of urine Status: Acute (29) Wound drainage (30) Hx of CABG (31) Status post lumbar spine surgery for decompression of spinal cord Status: Acute (32) Tobacco use JASPER LONG DO Jul 08, 2019 09:22
[2019-07-08] MEDS: ENOXAPARIN 40 MG/0.4 ML (LOVENOX) SYR SC SCH ×2 (09:45→20:27)
--- NOTE | 2019-07-08 09:48 | Occupational Ther Daily Note ---
OT Current Status-Daily Note Subjective Pt alert, sitting in recliner. Family present in room. Pt agrees to therapy. Pt c/o pain, rated 6/10, reported to nrsg and nrsg brought pain meds. Mental Status/Objective Patient Orientation: Person, Place, Time, Situation Therapy Code Descriptions/Definitions Functional [place] Measure: 0=Not Assessed/NA 4=Minimal Assistance 1=Total Assistance 5=Supervision or Setup 2=Maximal Assistance 6=Modified [place] 3=Moderate Assistance 7=Complete [place] Attachments: IV (midline), Oxygen (5L) ADL-Treatment After set up, pt able to complete upper body bathing and upper body dressing with assist to lean forward to pull shirt down in back. Pt declined changing lower body clothing and bathing. Pt completed grooming sitting at sink, assist to apply tooth paste to toothbrush due to increased tremors of hands. Pt takes increased time to complete tasks due to pain and decreased mobility. Pt requires assist to lean forward in chair. Therapy Code Descriptions/Definitions Functional [place] Measure: 0=Not Assessed/NA 4=Minimal Assistance 1=Total Assistance 5=Supervision or Setup 2=Maximal Assistance 6=Modified [place] 3=Moderate Assistance 7=Complete [place] Therapy Quality Codes: 6 Independent with activity with or without an assistive device 5 Patient requires set up or clean up by helper. Patient completes activity by themselves 4 Supervision or touching assist (CGA). [place] provide cues , steadying assist 3 The helper provides less than half the effort to complete the activity 2 The helper provides more than half the effort to complete the activity 1 Dependent. The helper does all the effort to complete an activity 7 Patient refused to complete or attempt activity 9 The patient did not perform the activity before the current illness or injury 88 Not attempted due to Medical conditions or safety concerns Grooming (FIM): 4 Oral Hygiene (QC): 3 Upper Body (FIM): 4 Upper Body Dressing (QC): 3 Other Treatment PT/OT co-treat for 60 min, requires skills of 2 clinicians for core stability, balance during standing exercises. PT working on LE strengthening, transfers and standing balance. OT working on sit to stand, UE strengthening, position of UE's during transfers and standing. Pt requires activities to increase activity tolerance and strength. Resistive pegs completed while standing at parallel bars using one hand at a time. Pt requires multiple recovery breaks throughout treatment due to decreased activity tolerance, increased SOA and decreased mobility. After therapy, pt sitting in w/c waiting on chest x-ray in room. Call light/phone in reach. All needs met in room. OT Short Term Goals Short Term Goals Time Frame: Jun 25, 2019 Grooming(FIM): 5 Bathing(FIM): 3 Lower Body Dressing(FIM): 3 Toileting(FIM): 3 Transfers (B,C,W/C) (FIM): 3 Toilet/Commode Transfer(FIM): 3 Additional Short Term Goals: 1-Demonstrate ADL Tasks, 2-Verbalize Understanding, 3-ImproveStrength/Leo 1=Demonstrate adherence to instructed precautions during ADL tasks. 2=Patient will verbalize/demonstrate understanding of assistive devices/modifications for ADL. 3=Patient will improve strength/tolerance for activity to enable patient to perform ADL's. OT Biomedical Technician Goals Senior Care Goals Time Frame: Jul 09, 2019 Eating (FIM): 6 Eating (QC): 6 Groomin Oral Hygiene (QC): 6 Bathing(FIM): 5 Shower/Bathe Self (QC): 5 Upper Body Dressing(FIM): 6 Upper Body Dressing (QC): 6 Lower Body Dressing(FIM): 6 Lower Body Dressing (QC): 5 On/Off Footwear (QC): 5 Toileting(FIM): 6 Toileting Hygiene (QC): 6 Toilet/Commode Transfer(FIM): 6 Toilet/Commode Transfer (QC): 6 Shower Transfer(FIM): 5 Comprehension(FIM): 7 Expression (FIM): 7 Social Interaction(FIM): 7 Problem Solving(FIM): 7 Memory(FIM): 7 Additional Goals: 1-Demonstrate ADL Tasks, 2-Verbalize Understanding, 3- ImproveStrength/Leo 1=Demonstrate adherence to instructed precautions during ADL tasks. 2=Patient will verbalize/demonstrate understanding of assistive devices/modifications for ADL. 3=Patient will improve strength/tolerance for activity to enable patient to perform ADL's. OT Education/Plan Problem List/Assessment Assessment: Decreased Activ Tolerance, Impaired Coordination, Impaired Funct Balance, Impaired Self-Care Skills Discharge Recommendations Plan/Recommendations: Continue POC Treatment Plan/Plan of Care Patient would benefit from OT for education, treatment and training to promote independence in ADL's, mobility, safety and/or upper extremity function for ADL's. Plan of Care: ADL Retraining, Functional Mobility, Group Exercise/Act as Ind, UE Funct Exercise/Act Treatment Duration: Jul 09, 2019 Frequency: At least 5 of 7 days/Wk (IRF) Estimated Hrs Per Day: 1.5 hours per day Agreement: Yes Rehab Potential: Fair Time/GCodes Start Time: 09:45 Stop Time: 11:30 Total Time Billed (hr/min): 105 Billed Treatment Time 1 visit-ADL 4 (60 min) FA 3 (45 min) AMANDA WEINER Jul 08, 2019 09:47
--- NOTE | 2019-07-08 10:07 | NUR ---
Dr. Ahn notified that 02 has been increased from 3 to 5L since this RN last took care of patient. Currently 94% on 5L.
[2019-07-08] MEDS: oxyCODONE/APAP 5/325MG (PERCOCET 5) TABLET PO PRN ×3 (10:19→20:26)
--- NOTE | 2019-07-08 10:51 | Progress Note - Hospitalist ---
DESI MASON, 07/08/19 1051: Progress Note Subjective/Events - Last Exam: Pt was very sleepy and had trouble waking up Has some SOB but denied chest pain or n/v Up moving around when he can but is difficult Has not had a bowel movement since surgery Eating food to help bowel issues along CPAP worn from 10p-2a with O2 on afterward Better through the night IV Mg given Lasix given Objective: Vitals: stable except BP 102/40 Gen: sleepy but alert Cardiac: RRR, no murmurs, no bruits Respiratory: clear bilaterally on auscultation, no wheezes Glucometer 230 today ABG: pCO2 56, pO2 53, HCO3 32 CXR: cardiomegaly and pulmonary venous HTN Assessment: Myopathy COPD (chronic obstructive pulmonary disease) Respiratory failure, acute and chronic Polycythemia Tobacco use Back pain Neuropathy PVD (peripheral vascular disease) Hx of CABG Obesity hypoventilation syndrome Hypertension Renal insufficiency Hyperlipidemia Arthritis of right knee Hx of supraventricular tachycardia Obesity Diabetes mellitus SIDNEY on CPAP CO2 narcosis CAD (coronary artery disease) Status post lumbar spine surgery for decompression of spinal cord UTI Klebsiella s/p Bactrim and Cipro then DC when added Jorge and Vanc due to wound Anxiety Wound dehiscence requiring bedside debridement and placement of wound vac by Dr Carrasco 06/19/2019 Diarrhea w/ mild dehydration now resolving Edema Left leg radiculopathy severe s/p short low dose course of IV steroids which did not help last week Plan: Continue PT/OT advancement Anabelle Eubanks, Rachel, Danilo are appreciated Abx changed to Jorge and Vanc for wound dehiscence and DC Cipro and Bactrim and wound VAC maintained now abx regimen completed 06/27/2019 Check labs in am IRF protocol Pain control with DC Lortab and started Percocet Monitor closely Questran DC High risk for C diff for any abx in future IS use along with Nebs Continue progress of PT with ambulation Encourage use of CPAP but refuses most of time - worse pm 07/07/19 Restart Lasix and potassium along with VARUN wraps but he refuses VARUN wraps and that seems to really help the edema Psych consult reviewed IV steroids DC Signed: Desi Mason, OMS-III, medical student CINTIA LONG DO 07/08/192049: Supervisory-Addendum Brief Verification & Attestation Time: Verification & Attestat.: 09:00 Participated in pt care: history, MDM, physical Personally performed: exam, history, MDM, supervision of care Care discussed with: Medical Student Procedures: n/a Results interpretation: Verified all documentation Verification and Attestation of Medical Student E/M Service A medical student performed and documented this service in my presence. I reviewed and verified all information documented by the medical student and made modifications to such information, when appropriate. I personally performed the physical exam and medical decision making. Cintia Long, Jul 08, 2019,20:50 DESI MASON, Jul 08, 2019 10:51 CINTIA LONG DO Jul 08, 2019 20:50
--- NOTE | 2019-07-08 11:29 | Physical Therapy Daily Note ---
PT Daily Note-Current Subjective Patient in room working with OT, agrees to PT, has pain of 2/10 in back, will be co-treating with OT due to poor patient mobility, strength, endurance, SOB, the need to coordinate UE and LE during activity, and a general decline in status. Appearance Patient in wheelchair at bedside post tx with nurse call, phone, tray, all needs met. Mental Status Patient Orientation: Person, Place, Situation Attachments: Oxygen, Alves Catheter Transfers Therapy Code Descriptions/Definitions Functional [place] Measure: 0=Not Assessed/NA 4=Minimal Assistance 1=Total Assistance 5=Supervision or Setup 2=Maximal Assistance 6=Modified [place] 3=Moderate Assistance 7=Complete [place] Therapy Quality Codes: 6 Independent with activity with or without an assistive device 5 Patient requires set up or clean up by helper. Patient completes activity by themselves 4 Supervision or touching assist (CGA). [place] provide cues , steadying assist 3 The helper provides less than half the effort to complete the activity 2 The helper provides more than half the effort to complete the activity 1 Dependent. The helper does all the effort to complete an activity 7 Patient refused to complete or attempt activity 9 The patient did not perform the activity before the current illness or injury 88 Not attempted due to Medical conditions or safety concerns Transfers (B, C, W/C) (FIM): 3 Sit to/from Stand: 3 Bed to/from Chair: 4 Patient needs mod assist to stand from wheelchair, cues for hand placement and to scoot forward Gait Training Gait (FIM): 1 Distance: 20'x3 Gait Level of Assist: 4 Gait Assistive Device: FWW ambulated 20'x3 with min assist and wheelchair follow, patient SOB very quickly, fatigues easily, O2 stayed at 96% Exercises stood in parallel bars x3 while performing UE activity. Treatments ambulation, transfers, standing Assessment Current Status: Poor Progress Patient fatigues faster than he used to, gets very SOB PT Short Term Goals Short Term Goals Time Frame: Jun 25, 2019 Transfers (B,C,W/C) (FIM): 3 Gait (FIM): 1 Gait Distance Comment: 5' Gait Level of Assist: 3 Gait Assistive Device: FWW Wheelchair Distance: 80' x 5 PT Care Home Goals Care Home Goals PT Care Home Goals Time Frame: Jul 09, 2019 Transfers (B,C,W/C) (FIM): 4 Sit to Lying (QC): 4 Lying-Sitting on Side/Bed(QC): 4 Sit to Stand (QC): 3 Rollin Roll Left to Right (QC): 4 Chair/Tlm-ku-Mzvih Xfer(QC): 3 Car Transfer (QC): 3 Gait (FIM): 1 Distance: 20' Walk 10 feet (QC): 3 Walk 10ft-Uneven Surface(QC): 3 Gait Level of Assist: 4 Gait Assistive Device: FWW Wheelchair (FIM): 6 Distance: 150' Wheelchair Level of Assist: 5 Wheel 50 feet with 2 turns (QC: 4 PT Plan Problem List Problem List: Activity Tolerance, Functional Strength, Safety, Balance, Gait, Transfer, Bed Mobility, ROM Treatment/Plan Treatment Plan: Continue Plan of Care Treatment Plan: Bed Mobility, Concurrent Therapy, Education, Functional Activity Leo, Functional Strength, Group Therapy, Gait, Safety, Therapeutic Exercise, Transfers Treatment Duration: Jul 09, 2019 Frequency: At least 5 of 7 days/Wk (IRF) Estimated Hrs Per Day: 1.5 hours per day Patient and/or Family Agrees t: Yes Safety Risks/Education Patient Education: Gait Training, Transfer Techniques, Correct Positioning, Safety Issues Teaching Recipient: Patient Teaching Methods: Demonstration, Discussion Response to Teaching: Reinforcement Needed Time/GCodes Time In: 1030 Time Out: 1130 Total Billed Treatment Time: 60 Total Billed Treatment 1 visit GT 30' FA 30' Co-treat with OT for 60 min. PT worked ambulation, transfers, standing, OT worked on UE activity, assist with ambulation and safety positioning. BRIDGETTE CAT PT Jul 08, 2019 11:29
--- NOTE | 2019-07-08 13:04 | Diagnostic Imaging Report ---
EXAMINATION: PA and lateral chest at 11:47 a.m. INDICATION: Shortness of breath. FINDINGS: The cardiomegaly and the sternotomy wires and surgical clips noted on the prior exam of 07/07/2019 are again evident and not significantly changed. The central pulmonary vascularity remains prominent consistent with mild pulmonary congestion. There is also increased density in the left retrocardiac region. This does suggest that there is an element of coexistent pneumonia/atelectasis present as well. There may be a small amount of atelectasis/infiltrate and fluid in the right lung base also. The upper lungs are relatively clear. The mediastinum is not widened. The osseous structures are intact. The right-sided PICC line is unchanged in position. IMPRESSION: There is persisting cardiomegaly and mild pulmonary congestion. There are also now appear to be areas of atelectasis/pneumonia involving both lung bases and there may be a small amount of fluid in the right lower lobe as well. A follow-up study will be recommended for continued evaluation. Dictated by: Dictated on workstation # [id number]
--- NOTE | 2019-07-08 13:47 | Physical Therapy Daily Note ---
PT Daily Note-Current Subjective Agrees to PT. Reports he has noticed a decline in strength the last few days. Transfers Therapy Code Descriptions/Definitions Functional [place] Measure: 0=Not Assessed/NA 4=Minimal Assistance 1=Total Assistance 5=Supervision or Setup 2=Maximal Assistance 6=Modified [place] 3=Moderate Assistance 7=Complete [place] Therapy Quality Codes: 6 Independent with activity with or without an assistive device 5 Patient requires set up or clean up by helper. Patient completes activity by themselves 4 Supervision or touching assist (CGA). [place] provide cues , steadying assist 3 The helper provides less than half the effort to complete the activity 2 The helper provides more than half the effort to complete the activity 1 Dependent. The helper does all the effort to complete an activity 7 Patient refused to complete or attempt activity 9 The patient did not perform the activity before the current illness or injury 88 Not attempted due to Medical conditions or safety concerns Transfers (B, C, W/C) (FIM): 3 Supine to/from Sit: 3 (assist with both legs to get into bed. ) Sit to/from Stand: 3 (sit to stand x 3 in // bars with skilled cues for sequencing and mod assist. STood for 30 sec each rep) Chair/Gcc-nv-Oepoj Xfer(QC): 4 (min assist to transfer wc to bed with skilled cues for technique, hand placement and sequencing. ) Assessment Current Status: Fair Progress LE weakness impairs sit to stand transfers. Needs a fair amount of assist with bed mobilty. PT Short Term Goals Short Term Goals Time Frame: Jun 25, 2019 Transfers (B,C,W/C) (FIM): 3 (met) Gait (FIM): 1 Gait Distance Comment: 5' Gait Level of Assist: 3 Gait Assistive Device: FWW Wheelchair Distance: 80' x 5 PT Correction Goals Correction Goals PT [facility] Att[facility] Goals Time Frame: Jul 09, 2019 Transfers (B,C,W/C) (FIM): 4 Sit to Lying (QC): 4 Lying-Sitting on Side/Bed(QC): 4 Sit to Stand (QC): 3 Rollin Roll Left to Right (QC): 4 Chair/Afb-ld-Wtufv Xfer(QC): 3 Car Transfer (QC): 3 Gait (FIM): 1 Distance: 20' Walk 10 feet (QC): 3 Walk 10ft-Uneven Surface(QC): 3 Gait Level of Assist: 4 Gait Assistive Device: FWW Wheelchair (FIM): 6 Distance: 150' Wheelchair Level of Assist: 5 Wheel 50 feet with 2 turns (QC: 4 PT Plan Problem List Problem List: Activity Tolerance, Functional Strength, Safety, Balance, Gait, Transfer, Bed Mobility Treatment/Plan Treatment Plan: Continue Plan of Care Treatment Plan: Bed Mobility, Concurrent Therapy, Education, Functional Activity Leo, Functional Strength, Group Therapy, Gait, Safety, Therapeutic Exercise, Transfers Treatment Duration: Jul 09, 2019 Frequency: At least 5 of 7 days/Wk (IRF) Estimated Hrs Per Day: 1.5 hours per day Patient and/or Family Agrees t: Yes Safety Risks/Education Patient Education: Transfer Techniques Teaching Recipient: Patient Teaching Methods: Demonstration, Discussion Response to Teaching: Return Demonstration, Reinforcement Needed Time/GCodes Time In: 1310 Time Out: 1344 Total Billed Treatment Time: 34 Total Billed Treatment visit FA 34 AMANDA NAILS PT Jul 08, 2019 13:47
[2019-07-08] MEDS: ROFLUMILAST 500 MCG TAB (DALIRESP) PO SCH (14:21)
--- NOTE | 2019-07-08 14:55 | NUR ---
Dr. Ahn here to see patient. Informed of chest XRAY results.
--- NOTE | 2019-07-08 15:14 | Pulmonary Progress Note ---
Subjective Time Seen by a Provider: 15:13 Subjective/Events-last exam No complications noted. Sepsis Event Evaluation Height, Weight, BMI Height: 5'10.00" Weight: 287lbs. 6.4oz. 130.609549lx; 38.0 BMI Method:Stated Exam Exam Vital Signs Date Time Temp Pulse Resp B/P (MAP) Pulse Ox O2 Delivery O2 Flow Rate FiO2 07/08/19 15:01 91 Nasal Cannula 3.00 07/08/19 09:40 Nasal Cannula 5.00 07/08/19 06:46 94 Nasal Cannula 3.00 07/08/19 05:55 97.4 77 18 102/40 (60) 93 Nasal Cannula 5.00 07/07/19 21:21 94 Nasal Cannula 07/07/19 20:20 Nasal Cannula 3.00 07/07/19 17:30 99.2 88 20 132/61 (84) 93 Nasal Cannula 5.00 I & O 07/08/19 07:00 Intake Total 1050 ml Output Total 2600 ml Balance -1550 ml Height & Weight Height: 5'10.00" Weight: 287lbs. 6.4oz. 130.623916wk; 38.0 BMI Method:Stated General Appearance: No Apparent Distress, WD/WN, Chronically ill, Obese HEENT: PERRL/EOMI, Normal ENT Inspection, Pharynx Normal Neck: Full Range of Motion, Non Tender, Supple Respiratory: Chest Non Tender, Lungs Clear, Normal Breath Sounds, No Accessory Muscle Use, No Respiratory Distress Cardiovascular: Regular Rate, Rhythm (Bilateral lower leg edema) Capillary Refill: Less Than 3 Seconds Peripheral Pulses: 2+ Dorsalis Pedis (R), 2+ Left Dors-Pedis (L), 2+ Radial Pulses (R), 2+ Radial Pulses (L) Gastrointestinal: normal bowel sounds, non tender, soft Extremity: Pedal Edema Neurologic/Psychiatric: Alert, Oriented x3, No Motor/Sensory Deficits, Normal 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
[2019-07-08 15:46] VITALS: BP 124/64
--- NOTE | 2019-07-08 16:00 | NUR ---
Dr. Ahn was here and decreased 02 from 5 to 3L with instructions to monitor. Sats 87-89%. 02 increased to 4L. Sats 90-91%.
--- NOTE | 2019-07-08 16:57 | NUR ---
Dressing change to back incision. Incision cleansed with Alcohol pads. AllKare applied to surrounding tissue. Covered with Xeroform (as done previously by Surgeon), gauze, and Island dressing. Min-mod amount of serosanguineous drainage noted. Hemovac drain intact.
--- NOTE | 2019-07-08 17:50 | NUR ---
LUMBER CARRIER OPERATOR met with patient to inquire about choices for SNF placement. Patient's first choice is [facility] and secondary choice of [facility]. LUMBER CARRIER OPERATOR has requested Janice GUILLERMO Reed to send referrals tomorrow as LUMBER CARRIER OPERATOR will be out of the office.
[2019-07-08] MEDS: GABAPENTIN 600 MG (NEURONTIN) TAB PO SCH (20:27)
[2019-07-08] MEDS: QUEtiapine 25 MG (SEROquel) TAB IMMEDIATE RELEASE PO SCH (20:27)
[2019-07-08] MEDS: ALPRAZolam 0.25 MG (XANAX) TAB PO PRN (23:44)
[2019-07-09] MEDS: SILDENAFIL 20 MG (REVATIO) TAB NON-FORMULARY PO SCH ×3 (06:34→21:25)
[2019-07-09] MEDS: MULTIVIT W/MINERALS TAB (THERAGRAN M) PO SCH (06:35)
[2019-07-09] MEDS: KCL 20 MEQ TAB (K-DUR) PO SCH (06:35)
[2019-07-09] MEDS: CATHETER FLUSH 10 ML SYR IV SCH ×3 (06:35→21:25)
[2019-07-09] MEDS: amLODIPine 10 MG (NORVASC) TAB PO SCH (06:35)
[2019-07-09] MEDS: SENNOSIDES 8.6 MG (SENOKOT) TAB PO PRN (06:35)
[2019-07-09] MEDS: PANTOPRAZOLE 40 MG (PROTONIX) TAB PO SCH (06:35)
[2019-07-09] MEDS: LACTOBACILLUS ACIDOPHILUS (PROBIOTIC) CAPSULE PO SCH ×4 (06:35→21:22)
--- NOTE | 2019-07-09 06:36 | Pulmonary Progress Note ---
Subjective Time Seen by a Provider: 06:36 Subjective/Events-last exam No complications noted. Sepsis Event Evaluation Height, Weight, BMI Height: 5'10.00" Weight: 287lbs. 6.4oz. 130.985433cp; 38.0 BMI Method:Stated Exam Exam Vital Signs Date Time Temp Pulse Resp B/P (MAP) Pulse Ox O2 Delivery O2 Flow Rate FiO2 07/08/19 21:15 90 Nasal Cannula 4.00 07/08/19 20:10 Nasal Cannula 4.00 07/08/19 15:46 98.4 76 16 124/64 (84) 90 Nasal Cannula 3.00 07/08/19 15:01 91 Nasal Cannula 3.00 07/08/19 09:40 Nasal Cannula 5.00 07/08/19 06:46 94 Nasal Cannula 3.00 I & O 07/09/19 07:00 Intake Total 600 ml Output Total 720 ml Balance -120 ml Height & Weight Height: 5'10.00" Weight: 287lbs. 6.4oz. 130.386652xe; 38.0 BMI Method:Stated General Appearance: No Apparent Distress, WD/WN, Chronically ill, Obese HEENT: PERRL/EOMI, Normal ENT Inspection, Pharynx Normal Neck: Full Range of Motion, Non Tender, Supple Respiratory: Chest Non Tender, Lungs Clear, Normal Breath Sounds, No Accessory Muscle Use, No Respiratory Distress Cardiovascular: Regular Rate, Rhythm (Bilateral lower leg edema) Capillary Refill: Less Than 3 Seconds Peripheral Pulses: 2+ Dorsalis Pedis (R), 2+ Left Dors-Pedis (L), 2+ Radial Pulses (R), 2+ Radial Pulses (L) Gastrointestinal: normal bowel sounds, non tender, soft Extremity: Pedal Edema Neurologic/Psychiatric: Alert, Oriented x3, No Motor/Sensory Deficits, Normal 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
[2019-07-09 06:54] VITALS: BP 145/65
[2019-07-09] MEDS: RT-ALBUTEROL/IPRATROPIUM 3 ML (DUONEB) VIAL INH SCH ×3 (07:04→21:10)
[2019-07-09] MEDS: inSUlin ASPART (NovoLOG) 1 UNIT/0.01 ML (CHARGE PER UNIT) SC SCH ×4 (07:07→21:24)
[2019-07-09 07:09] LABS: BASOPHILS % (AUTO) 0 % (0-10); EOSINOPHILS # (AUTO) 0.2 10^3/uL (0.0-0.3); EOSINOPHILS % (AUTO) 3 % (0-10); HEMATOCRIT 25 % (40-54); HEMOGLOBIN 7.1 G/DL (13.3-17.7); LYMPHOCYTES # (AUTO) 1.6 X 10^3 (1.0-4.0); LYMPHOCYTES % (AUTO) 27 % (12-44); MEAN CORPUSCULAR HEMOGLOBIN 26 PG (25-34); MEAN CORPUSCULAR HGB CONC 28 G/DL (32-36); MEAN CORPUSCULAR VOLUME 93 FL (80-99); MEAN PLATELET VOLUME 10.8 FL (7.4-10.4); MONOCYTES # (AUTO) 0.6 X 10^3 (0.0-1.0); MONOCYTES % (AUTO) 11 % (0-12); NEUTROPHILS # (AUTO) 3.5 X 10^3 (1.8-7.8); NEUTROPHILS % (AUTO) 59 % (42-75); PLATELET COUNT 259 10^3/uL (130-400); RED CELL DISTRIBUTION WIDTH 17.6 % (10.0-14.5); WHITE BLOOD COUNT 5.9 10^3/uL (4.3-11.0)
--- NOTE | 2019-07-09 07:19 | NUR ---
RT entered the patients room and he was satting 88% on 4 L so RT increased O2 to 5 L NC and patients sat came up to 90%; Dr Law was notified and she said to let Dr Ahn know, RT did and he said to have RN text him. So RN was notified of what was going on and for her to text him.
[2019-07-09 07:25] LABS: ALBUMIN 3.2 GM/DL (3.2-4.5); BILIRUBIN,TOTAL 0.4 MG/DL (0.1-1.0); CALCIUM 9.3 MG/DL (8.5-10.1); CREATININE SERUM 1.34 MG/DL (0.60-1.30); POTASSIUM 4.7 MMOL/L (3.6-5.0); TOTAL PROTEIN 6.7 GM/DL (6.4-8.2)
--- NOTE | 2019-07-09 07:30 | NUR ---
DR. DUDLEY INFORMED OF O2 REQUIREMENTS OF 5L AND ORDERS RECEIVED FOR CT CHEST AND IV LASIX. PATIENT DENIES SOB. STATES DID COUGH UP GREEN MUCOUS YESTERDAY. STATES BACK PAIN IS WORSE AND CONTINUED LEFT FOOT PAIN AND MEDICATED WITH PERCOCET.
[2019-07-09] MEDS ORDERED: FUROSEMIDE 40 MG/4 ML INJ (LASIX) IVP NR (07:45)
[2019-07-09] MEDS: CATHETER FLUSH 10 ML SYR IV PRN (07:57)
[2019-07-09 08:00] VITALS: BP 124/62
[2019-07-09] MEDS: TAMSULOSIN 0.4 MG (FLOMAX) CAP PO SCH (08:07)
[2019-07-09] MEDS: meTOprolol TARTRATE 25 MG (LOPRESSOR) TABLET PO SCH ×2 (08:08→21:23)
[2019-07-09] MEDS: oxyCODONE/APAP 5/325MG (PERCOCET 5) TABLET PO PRN ×3 (08:08→18:25)
[2019-07-09] MEDS: GABAPENTIN 300 MG (NEURONTIN) CAP PO SCH (08:08)
--- NOTE | 2019-07-09 08:10 | Progress Note - Hospitalist ---
[facility] [place] 07/09/19 0810: Progress Note 07/09/18 @ 7:40 Subjective: Patient was alert and tired. Seemed like he was short of breath. Patient denied: SOB, N/V, abdominal pain, and chest pain Patient is urinating (catheter) No bowel movement since the surgery on July 05 Eating and Drinking fine, patient states he is tolerating new diet No changes is pain from norm, but when checking feet just a slight movement of the blanket caused patient to wince. Bethanechol is still on hold OT/PT notes reviewed, needs a lot of assistance in certain maneuvers Objective: Vitals: Stable Patient is on 5L O2 stating around 90% Labs: HgB is at 7.1 , which is down frp, 7.6, BUN/Cr is at 36/1.34 Glucose:: 168 Heart: HRRR Lungs: hard to hear because patient was not taking full breaths Abdomen: bowels sounds heard and no pain MSK: lower extremity edema, with pain in the left leg Assessment: Myopathy COPD (chronic obstructive pulmonary disease) Respiratory failure, acute and chronic Polycythemia Tobacco use Back pain Neuropathy PVD (peripheral vascular disease) Hx of CABG Obesity hypoventilation syndrome Hypertension Renal insufficiency Hyperlipidemia Arthritis of right knee Hx of supraventricular tachycardia Obesity Diabetes mellitus SIDNEY on CPAP CO2 narcosis CAD (coronary artery disease) Status post lumbar spine surgery for decompression of spinal cord UTI Klebsiella s/p Bactrim and Cipro then DC when added Jorge and Vanc due to wound Anxiety Wound dehiscence requiring bedside debridement and placement of wound vac by Dr Carrasco 06/19/2019 Diarrhea w/ mild dehydration now resolving Edema Left leg radiculopathy severe s/p short low dose course of IV steroids which did not help last week Plan: Continue PT/OT advancement Anabelle Eubanks, Rachel, Danilo are appreciated Abx changed to Jorge and Vanc for wound dehiscence and DC Cipro and Bactrim and wound VAC maintained now abx regimen completed 06/27/2019 Check labs in am IRF protocol Pain control with DC Lortab and started Percocet Monitor closely Questran DC High risk for C diff for any abx in future IS use along with Nebs Continue progress of PT with ambulation Encourage use of CPAP but refuses most of time Restart Lasix and potassium along with VARUN wraps but he refuses VARUN wraps and that seems to really help the edema Psych consult reviewed IV steroids DC Monitor HgB due to it dropping Monitor for bowel movements and talk to Attending Continue to monitor breathing CINTIA LONG DO 07/09/19 1723: Supervisory-Addendum Brief Verification & Attestation Time: Verification & Attestat.: 09:00 Participated in pt care: history, MDM, physical Personally performed: exam, history, MDM, supervision of care Care discussed with: Medical Student Procedures: n/a Results interpretation: Verified all documentation Verification and Attestation of Medical Student E/M Service A medical student performed and documented this service in my presence. I reviewed and verified all information documented by the medical student and made modifications to such information, when appropriate. I personally performed the physical exam and medical decision making. Cintia Long, Jul 09, 2019,17:23 [facility] [place] Jul 09, 2019 08:10 CINTIA LONG DO Jul 09, 2019 17:23
--- NOTE | 2019-07-09 09:15 | NUR ---
DOWNSTAIRS FOR CT SCAN.
--- NOTE | 2019-07-09 09:28 | PM&R Progress Note ---
Subjective HPI/CC On Admission Date Seen by Provider: Jul 09, 2019 Time Seen by Provider: 09:30 CC: Critical illness debility HPI: This is a 68-year-old white male clinic patient of Dr. 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 Received report from Dr. Montesinos at [facility] in [place]. Patient was admitted there after difficulty weaning off the ventilator after he was intubated after failed noninvasive ventilator support after he was transferred from [facility] after his spinal surgery to [facility]. He remained on the ventilator for 3 weeks has some vocal cord dysfunction due to the long intubation status and most recently having urinary retention after Alves catheter was discontinued and currently has Klebsiella UTI maintained on Bactrim and Cipro double coverage because of such a significant organism. He had some significant hallucinations last week but that has been resolved. Patient currently remains on 2 L by nasal cannula of oxygen receives nebulizer treatments of DuoNeb every 6 hours and uses his home CPAP machine. His prior level of functioning was independent of ADLs and ambulation. I reviewed all of his current medications and renal dialysis technician here at the hospital has confirmed accuracy and all those have been continued. He does have a PICC line in his right upper arm. Upon review of the history and physical the following information was obtained: Past medical history: diabetes mellitus on oral therapy, obstructive sleep apnea, COPD with chronic respiratory failure, polycythemia due to chronic respiratory failure, tobacco use, chronic low back pain, peripheral neuropathy, PVD, CAD previous bypass surgery, thrombocytopenia, morbid obesity with hypoventilation syndrome, congestive heart failure with acute on chronic diastolic type with volume overload at admission to [facility], hyperlipidemia, hypertension, carpal tunnel syndrome, severe DJD of the right knee. He also has a history of SVT. Subjective/Events-last exam [facility] has accepted the patient once stable Chest x-ray showed a questionable infiltrate so CT chest is been ordered by Dr. Ahn Lasix 40 mg IV has been initiated also Hemoglobin was 7.1 today 5 L of oxygen maintained Xanax helps a little bit without over sedating No bowel movement yet will initiate some medications Labored breathing is always Leg pain persist Creatinine 1.3 Bowel sounds are present Conferred with RN Reviewed therapy notes Appreciate Dr. Ahn Review of Systems General: Fatigue Pulmonary: Dyspnea Musculoskeletal: back pain Objective Exam Vital Signs Vital Signs Date Time Temp Pulse Resp B/P (MAP) Pulse Ox O2 Delivery O2 Flow Rate FiO2 07/09/19 09:00 Nasal Cannula 5.00 07/09/19 07:04 88 07/09/19 06:54 97.4 80 20 145/65 (91) Capillary Refill : Less Than 3 SecondsLess Than 3 Seconds General Appearance: No Apparent Distress, WD/WN, Chronically ill, Obese HEENT: PERRL/EOMI, Normal ENT Inspection, Pharynx Normal Neck: Full Range of Motion, Non Tender, Supple Respiratory: Chest Non Tender, Lungs Clear, Normal Breath Sounds, No Accessory Muscle Use, No Respiratory Distress Cardiovascular: Regular Rate, Rhythm (Bilateral lower leg edema) Gastrointestinal: Normal Bowel Sounds, Non Tender Back: Decreased Range of Motion Extremity: Pedal Edema Neurologic/Psychiatric: Alert, Oriented x3, No Motor/Sensory Deficits, Normal Mood/Affect, 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 FIM Transfers Therapy Code Descriptions/Definitions Functional [place] Measure: 0=Not Assessed/NA 4=Minimal Assistance 1=Total Assistance 5=Supervision or Setup 2=Maximal Assistance 6=Modified [place] 3=Moderate Assistance 7=Complete [place] Therapy Quality Codes: 6 Independent with activity with or without an assistive device 5 Patient requires set up or clean up by helper. Patient completes activity by themselves 4 Supervision or touching assist (CGA). [place] provide cues , steadying assist 3 The helper provides less than half the effort to complete the activity 2 The helper provides more than half the effort to complete the activity 1 Dependent. The helper does all the effort to complete an activity 7 Patient refused to complete or attempt activity 9 The patient did not perform the activity before the current illness or injury 88 Not attempted due to Medical conditions or safety concerns Transfers (B, C, W/C) (FIM): 3 Scootin Rollin Roll Left to Right (QC): 5 Supine to/from Sit: 3 (assist with both legs to get into bed. ) Sit to/from Stand: 3 (sit to stand x 3 in // bars with skilled cues for sequencing and mod assist. STood for 30 sec each rep) Sit to Lying (QC): 3 Sit to Stand (QC): 3 Chair/Azs-ta-Sjlce Xfer(QC): 4 (min assist to transfer wc to bed with skilled cues for technique, hand placement and sequencing. ) Bed to/from Chair: 4 Car Transfer (QC): 2 Gait Training Does the Patient Walk?: Yes Gait (FIM): 1 Distance (FIM): 6=918-90 ft Distance: 20'x3 Walk 10 feet (QC): 4 Gait Level of Assist: 4 Gait Persons Needed: 2 (extra person to follow with w/c and O2 tank, as well as with sit to stand transfer from w/c) Gait Assistive Device: FWW Wheelchair Training Does the Pt Use a Wheelchair?: Yes Wheelchair (FIM): 2 Wheelchair Distance: 3=415-92 ft Distance: 80' x 5 Wheelchair Level of Assist: 3 Wheel 50 ft with 2 turns (QC): 3 Wheel 150 ft (QC): 4 Type of Wheelchair: Manual Mental Status/Objective Comprehension: 7 Expression: 7 Social Interaction: 7 Problem Solvin Memory: 7 ADL-Treatment Feedin (Pt able to feed self without assist) Eating (QC): 6 Groomin Oral Hygiene (QC): 3 Bathin Bathing Location: L Arm, R Arm, Chest, Abdomen Shower/Bathe Self (QC): 3 Upper Extremity Dressin Upper Body Dressing (QC): 3 Lower Extremity Dressin Lower Body Dressing (QC): 2 On/Off Footwear (QC): 2 Toiletin (Pt. was incontinent of bowel while in bed. OT removed depend in bed, and placed bed betts per pt. request, as he had to go quickly. After toileting, OT cleansed brandyn area at bed level.) Toileting Hygiene (QC): 1 Toilet/Commode Transfer: 2 Toilet Transfer (QC): 2 Shower: 0 Assessment/Plan Assessment and Plan Assess & Plan/Chief Complaint Assessment: (1) Myopathy (2) COPD (chronic obstructive pulmonary disease) (3) Respiratory failure, acute and chronic (4) Polycythemia (5) Tobacco use (6) Back pain (7) Neuropathy (8) PVD (peripheral vascular disease) (9) Hx of CABG (10) Obesity hypoventilation syndrome (11) Hypertension (12) Renal insufficiency (13) Hyperlipemia (14) Arthritis of right knee (15) Hx of supraventricular tachycardia (16) Obesity (17) Diabetes mellitus (18) SIDNEY on CPAP (19) CO2 narcosis (20) CAD (coronary artery disease) (21) Status post lumbar spine surgery for decompression of spinal cord (22) UTI Klebsiella s/p Bactrim and Cipro then DC when added Jorge and Vanc due to wound (23) Anxiety (24) Wound dehiscence requiring bedside debridement and placement of wound vac by Dr Carrasco 06/19/19 (25) Diarrhea w/mild dehydration now resolving (26) edema (27) Left leg radiculopathy severe and chronic Plan: Continue monitoring labs (CBC w/diff, CMP) prn Continue to closely monitor due to recent surgery IRF protocol Pain control High risk for C diff for any abx in future IS use along with Nebs Continue progress of PT with ambulation Encourage use of CPAP but refuses most of the time Continue to try and encourage VARUN wrap usage even though he is refusing Pay close attention after surgery due to patients history of intubation after surgical procedures Monitor I/O Continue to monitor glucose control Evaluate patients left foot if pain worsens continue wound care Monitor patient for bowel movements (has not gone since surgery) give extra meds Consult doctors are appreciated Continue to monitor vitals. Monitoring closely due to respiratory issue. Consult pulmonary for patients breathing Barriers that he needs addressed before he gets home include: 1. Patient has 2 steps at home and this does not have railings 2. Patient drives but will need assistance in and out and a consult to see if he is even capable of driving still 3. Patient really likes the walker and feels he would really benefit from one if he had one for himself. 4. Patient does not have someone who checks in on him. Would be good to organize family or friends to check in on him. 5. Does patient need at home oxygen (pulmonary consult to evaluate patients ability to be home and not on oxygen). 6. Patient needs an evaluation of his home to make sure he has items that pose a fall risk removed or placed somewhere сергей. 7. Patient needs an at home evaluation of his bathroom to make sure it is adequate for him to function. Areas of living that already have assistance include: 1. currently does not have items that he may need to meet his needs at home. Areas that still need to be discussed: 1. Patient being able to manage drug regimen without at home help (1) Myopathy (2) COPD (chronic obstructive pulmonary disease) (3) Polycythemia (4) Diabetes mellitus (5) Back pain (6) CAD (coronary artery disease) (7) Hyperlipemia (8) Neuropathy (9) Renal insufficiency (10) PVD (peripheral vascular disease) (11) Hypertension (12) Obesity (13) Respiratory failure, acute and chronic (14) Arthritis of right knee (15) Obesity hypoventilation syndrome (16) CO2 narcosis (17) SIDNEY on CPAP (18) Hx of supraventricular tachycardia (19) Decubitus ulcer (20) Urinary retention (21) BPH (benign prostatic hyperplasia) (22) UTI due to Klebsiella species (23) Hyperkalemia (24) Renal failure (25) CO2 retention (26) Postoperative wound dehiscence (27) Elevated brain natriuretic peptide (BNP) level (28) Clot retention of urine (29) Wound drainage (30) Hx of CABG (31) Status post lumbar spine surgery for decompression of spinal cord (32) Tobacco use Assessment and plan reviewed Patient with significant resp issues that may improve or if worsens will need ICU transfer but improved today Monitor closely Appreciate DR Ahn (1) Respiratory failure, acute and chronic (2) COPD (chronic obstructive pulmonary disease) (3) Polycythemia (4) Diabetes mellitus Status: Chronic (5) Back pain (6) CAD (coronary artery disease) Status: Chronic (7) Hyperlipemia (8) Myopathy (9) Neuropathy (10) Renal insufficiency (11) PVD (peripheral vascular disease) (12) Hypertension (13) Obesity Status: Chronic (14) Arthritis of right knee (15) Obesity hypoventilation syndrome (16) CO2 narcosis Status: Acute (17) SIDNEY on CPAP Status: Chronic (18) Hx of supraventricular tachycardia (19) Decubitus ulcer (20) Urinary retention (21) BPH (benign prostatic hyperplasia) (22) UTI due to Klebsiella species (23) Hyperkalemia Status: Acute (24) Renal failure Status: Acute (25) CO2 retention (26) Postoperative wound dehiscence (27) Elevated brain natriuretic peptide (BNP) level Status: Acute (28) Clot retention of urine Status: Acute (29) Wound drainage (30) Hx of CABG (31) Status post lumbar spine surgery for decompression of spinal cord Status: Acute (32) Tobacco use JASPER LONG DO Jul 09, 2019 09:28
--- NOTE | 2019-07-09 09:50 | Diagnostic Imaging Report ---
PROCEDURE: CT chest without contrast. TECHNIQUE: Multiple contiguous axial images were obtained through the chest without the use of intravenous contrast. Auto Exposure Controls were utilized during the CT exam to meet ALARA standards for radiation dose reduction. INDICATION: Possible pneumonia. Increased oxygen requirements. COMPARISON: Chest radiograph on 07/08/2019 FINDINGS: The heart size is enlarged with post-CABG changes noted. No pericardial effusion is present. There is calcified aortic and coronary atherosclerotic plaque without aneurysm. A right PICC is visualized tip in the cavoatrial junction. Prominent mediastinal lymph nodes are present. Bronchial wall thickening is seen throughout the lungs with prominent interlobular septa and groundglass opacities throughout the lungs. Scattered centrilobular emphysema is seen, greatest in the apices. No focal consolidation. Bibasilar atelectasis is present. No central endobronchial obstructing lesions are identified. Small bilateral pleural effusions are present. No pneumothorax. The osseous structures demonstrate no acute abnormalities. Limited views of the upper abdominal structures demonstrate no acute abnormalities. Cholelithiasis is noted without CT evidence of acute cholecystitis. Both adrenal glands are unremarkable. IMPRESSION: 1. Bronchial wall thickening with prominent intralobular septa and groundglass opacities throughout the lungs, favored to represent pulmonary edema. Infection is felt to be less likely. Small bilateral pleural effusions are present with bibasilar atelectasis. 2. Cardiomegaly. 3. Cholelithiasis. Dictated by: Dictated on workstation # [id number]
--- NOTE | 2019-07-09 10:00 | NUR ---
DR. DUDLEY NOTIFIED OF CT RESULTS AND ORDER RECEIVED TO GIVE SCHEDULED PO LASIX TODAY ALSO.
[2019-07-09] MEDS: THEOPHYLLINE ER 400 MG TAB (THEO-24) PO SCH (10:04)
[2019-07-09] MEDS: DICLOFENAC 1% GEL 100 GM (VOLTAREN) TUBE TOP SCH ×4 (10:05→21:25)
[2019-07-09] MEDS: ENOXAPARIN 40 MG/0.4 ML (LOVENOX) SYR SC SCH ×2 (10:06→21:24)
--- NOTE | 2019-07-09 10:23 | NUR ---
[facility] or [facility] ([facility]), as potential dc destinations. [facility], being patient's first choce - referral has been made. If [facility] denies, referral will then be made to [facility].
[2019-07-09] MEDS: FUROSEMIDE 40 MG (LASIX) TAB PO SCH (10:31)
--- NOTE | 2019-07-09 12:52 | Physical Therapy Daily Note ---
PT Daily Note-Current Subjective Patient in bed pre tx, agrees to PT, has 5/10 pain in left foot, will be co- treating with OT for part of treatment due to poor patient mobility, strength, endurance, balance, the need to use UE and LE positioning together. Appearance Patient in bed post tx with nurse call, phone, tray, all needs met. Mental Status Patient Orientation: Person, Place, Situation Attachments: Oxygen, Drains, Alves Catheter Transfers Therapy Code Descriptions/Definitions Functional [place] Measure: 0=Not Assessed/NA 4=Minimal Assistance 1=Total Assistance 5=Supervision or Setup 2=Maximal Assistance 6=Modified [place] 3=Moderate Assistance 7=Complete [place] Therapy Quality Codes: 6 Independent with activity with or without an assistive device 5 Patient requires set up or clean up by helper. Patient completes activity by themselves 4 Supervision or touching assist (CGA). [place] provide cues , steadying assist 3 The helper provides less than half the effort to complete the activity 2 The helper provides more than half the effort to complete the activity 1 Dependent. The helper does all the effort to complete an activity 7 Patient refused to complete or attempt activity 9 The patient did not perform the activity before the current illness or injury 88 Not attempted due to Medical conditions or safety concerns Transfers (B, C, W/C) (FIM): 2 Scootin Rollin Supine to/from Sit: 2 Sit to/from Stand: 3 Bed to/from Chair: 3 Patient needs less assist to stand from higher surfaces. Very limited trunk movement, very difficult to lean forward. Gait Training Gait (FIM): 1 Distance: 20'x3 Gait Level of Assist: 4 Gait Assistive Device: FWW slow ambulation, very SOB, unsteady, tends to lean too far forward onto walker, wheelchair follow Wheelchair Training Does the Pt Use a Wheelchair?: Yes Distance: 50' Wheelchair Level of Assist: 4 Type of Wheelchair: Manual Exercises standing in the parallel bars x3 and performing UE activity with one arm Treatments standing, ambulation, WC mobility, bed mobility and transfers Assessment Current Status: Poor Progress very poor endurance, unsteady ambulation PT Short Term Goals Short Term Goals Time Frame: Jun 25, 2019 Transfers (B,C,W/C) (FIM): 3 (met) Gait (FIM): 1 Gait Distance Comment: 5' Gait Level of Assist: 3 Gait Assistive Device: FWW Wheelchair Distance: 80' x 5 PT Client Project Coordinator Goals Client Project Coordinator Goals PT Long-Term Goals Time Frame: Jul 09, 2019 Transfers (B,C,W/C) (FIM): 4 Sit to Lying (QC): 4 Lying-Sitting on Side/Bed(QC): 4 Sit to Stand (QC): 3 Rollin Roll Left to Right (QC): 4 Chair/Rxw-yy-Hpvre Xfer(QC): 3 Car Transfer (QC): 3 Gait (FIM): 1 Distance: 20' Walk 10 feet (QC): 3 Walk 10ft-Uneven Surface(QC): 3 Gait Level of Assist: 4 Gait Assistive Device: FWW Wheelchair (FIM): 6 Distance: 150' Wheelchair Level of Assist: 5 Wheel 50 feet with 2 turns (QC: 4 PT Plan Problem List Problem List: Activity Tolerance, Functional Strength, Safety, Balance, Gait, Transfer, Bed Mobility, ROM Treatment/Plan Treatment Plan: Continue Plan of Care Treatment Plan: Bed Mobility, Concurrent Therapy, Education, Functional Activity Leo, Functional Strength, Group Therapy, Gait, Safety, Therapeutic Exercise, Transfers Treatment Duration: Jul 09, 2019 Frequency: At least 5 of 7 days/Wk (IRF) Estimated Hrs Per Day: 1.5 hours per day Patient and/or Family Agrees t: Yes Safety Risks/Education Patient Education: Gait Training, Transfer Techniques, Correct Positioning, W/C Management, Safety Issues Teaching Recipient: Patient Teaching Methods: Demonstration, Discussion Response to Teaching: Reinforcement Needed Time/GCodes Time In: 1100 Time Out: 1200 Total Billed Treatment Time: 60 Total Billed Treatment 1 visit [facility] 15' GT 25' FA 20' co-treated with OT for 45 min, PT worked on bed mobility and transfers, ambulation, standing, WC mobility, OT worked on UE activity, assist with bed mobility and transfers and ambulation with UE and trunk positioning BRIDGETTE CAT PT Jul 09, 2019 12:52
--- NOTE | 2019-07-09 13:02 | Occupational Ther Daily Note ---
OT Current Status-Daily Note Subjective Pt in bed, agrees to treatment. Reports 6/10 pain in back and left foot. Mental Status/Objective Therapy Code Descriptions/Definitions Functional [place] Measure: 0=Not Assessed/NA 4=Minimal Assistance 1=Total Assistance 5=Supervision or Setup 2=Maximal Assistance 6=Modified [place] 3=Moderate Assistance 7=Complete [place] Attachments: Oxygen (5L) ADL-Treatment Pt able to bring LE to EOB, but requires assist to raise trunk during supine to sit and scoot to EOB. Pt declined bathing, but completed upper body ADLs while seated EOB. Pt doffed/donned shirt with SBA. Pt brushed teeth with increased time and combed hair with set up. Pt fatigues quickly with activity and requires rest breaks and increased time for task completion. Sit to stand with mod assist with bed raised. Pt able to take sidesteps to HOB with FWW. Sit to supine with assist x2 for safety. Assist required to reposition in bed. Pt performed bilateral UE activity to increase strength needed for functional task completion. Pt performed bilateral hand receiving distribution station operator exercises to increase receiving distribution station operator s trength. Bilateral shoulder flexion, forward press, and biceps curls x15 reps with dowel martina. Rest breaks between exercises. Pt resting in bed with needs met after session. Therapy Code Descriptions/Definitions Functional [place] Measure: 0=Not Assessed/NA 4=Minimal Assistance 1=Total Assistance 5=Supervision or Setup 2=Maximal Assistance 6=Modified [place] 3=Moderate Assistance 7=Complete [place] Therapy Quality Codes: 6 Independent with activity with or without an assistive device 5 Patient requires set up or clean up by helper. Patient completes activity by themselves 4 Supervision or touching assist (CGA). [place] provide cues , steadying assist 3 The helper provides less than half the effort to complete the activity 2 The helper provides more than half the effort to complete the activity 1 Dependent. The helper does all the effort to complete an activity 7 Patient refused to complete or attempt activity 9 The patient did not perform the activity before the current illness or injury 88 Not attempted due to Medical conditions or safety concerns Grooming (FIM): 5 Upper Body (FIM): 5 OT Short Term Goals Short Term Goals Time Frame: Jun 25, 2019 Grooming(FIM): 5 Bathing(FIM): 3 Lower Body Dressing(FIM): 3 Toileting(FIM): 3 Transfers (B,C,W/C) (FIM): 3 (met) Toilet/Commode Transfer(FIM): 3 Additional Short Term Goals: 1-Demonstrate ADL Tasks, 2-Verbalize Unders tanding, 3-ImproveStrength/Leo 1=Demonstrate adherence to instructed precautions during ADL tasks. 2=Patient will verbalize/demonstrate understanding of assistive devices/modifications for ADL. 3=Patient will improve strength/tolerance for activity to enable patient to perform ADL's. OT Jail Goals Jail Goals Time Frame: Jul 09, 2019 Eating (FIM): 6 Eating (QC): 6 Groomin Oral Hygiene (QC): 6 Bathing(FIM): 5 Shower/Bathe Self (QC): 5 Upper Body Dressing(FIM): 6 Upper Body Dressing (QC): 6 Lower Body Dressing(FIM): 6 Lower Body Dressing (QC): 5 On/Off Footwear (QC): 5 Toileting(FIM): 6 Toileting Hygiene (QC): 6 Toilet/Commode Transfer(FIM): 6 Toilet/Commode Transfer (QC): 6 Shower Transfer(FIM): 5 Comprehension(FIM): 7 Expression (FIM): 7 Social Interaction(FIM): 7 Problem Solving(FIM): 7 Memory(FIM): 7 Additional Goals: 1-Demonstrate ADL Tasks, 2-Verbalize Understanding, 3- ImproveStrength/Leo 1=Demonstrate adherence to instructed precautions during ADL tasks. 2=Patient will verbalize/demonstrate understanding of assistive devices/modifications for ADL. 3=Patient will improve strength/tolerance for activity to enable patient to perform ADL's. OT Education/Plan Discharge Recommendations Plan/Recommendations: Continue POC Treatment Plan/Plan of Care Patient would benefit from OT for education, treatment and training to promote independence in ADL's, mobility, safety and/or upper extremity function for ADL's. Plan of Care: ADL Retraining, Functional Mobility, Group Exercise/Act as Ind, UE Funct Exercise/Act Treatment Duration: Jul 09, 2019 Frequency: At least 5 of 7 days/Wk (IRF) Estimated Hrs Per Day: 1.5 hours per day Agreement: Yes Rehab Potential: Fair Time/GCodes Start Time: 09:30 Stop Time: 10:15 Total Time Billed (hr/min): 45 Billed Treatment Time 1 visit, ADLx2(30minutes), EX(15minutes) FRED NEIL OT Jul 09, 2019 13:02
--- NOTE | 2019-07-09 13:11 | Occupational Ther Daily Note ---
OT Current Status-Daily Note Subjective Pt in bed, agrees to treatment. Pt reports 5/10 pain in left foot. Mental Status/Objective Therapy Code Descriptions/Definitions Functional [place] Measure: 0=Not Assessed/NA 4=Minimal Assistance 1=Total Assistance 5=Supervision or Setup 2=Maximal Assistance 6=Modified [place] 3=Moderate Assistance 7=Complete [place] Attachments: Drains, Alves Catheter, Oxygen ADL-Treatment Therapy Code Descriptions/Definitions Functional [place] Measure: 0=Not Assessed/NA 4=Minimal Assistance 1=Total Assistance 5=Supervision or Setup 2=Maximal Assistance 6=Modified [place] 3=Moderate Assistance 7=Complete [place] Therapy Quality Codes: 6 Independent with activity with or without an assistive device 5 Patient requires set up or clean up by helper. Patient completes activity by themselves 4 Supervision or touching assist (CGA). [place] provide cues , steadying assist 3 The helper provides less than half the effort to complete the activity 2 The helper provides more than half the effort to complete the activity 1 Dependent. The helper does all the effort to complete an activity 7 Patient refused to complete or attempt activity 9 The patient did not perform the activity before the current illness or injury 88 Not attempted due to Medical conditions or safety concerns Other Treatment Co-treat with PT secondary to due to pt pain, impaired strength, activity tolerance, and balance. OT focusing on UE management/activity, positioning, and safety. PT focusing on transfers, ambulation, and balance. Pt supine to sit with max assist. Pt requires assist to scoot to EOB. Pt stood from raised bed and performed 3 trials of ambulation with FWW. Pt has decreased balance and tends to lean too far forward. Requires cues for safety and positioning. Pt also requires cues for hand placement during sit to stand and mobility. Pt fatigues quickly and is short of breath with activity. Requires seated rest breaks between mobility. Pt stood in parallel bars x3, mod assist with sit to stand. Pt requires increased assist as he fatigued. While standing pt performed UE activity with arm arc and then graded clothespins to increase UE activity, standing balance, and activity tolerance. Pt requires cues for posture during standing. Extended recovery breaks between standing secondary to fatigue and s hortness of breath. Pt with PT for continued treatment after session. OT Short Term Goals Short Term Goals Time Frame: Jun 25, 2019 Grooming(FIM): 5 Bathing(FIM): 3 Lower Body Dressing(FIM): 3 Toileting(FIM): 3 Transfers (B,C,W/C) (FIM): 3 (met) Toilet/Commode Transfer(FIM): 3 Additional Short Term Goals: 1-Demonstrate ADL Tasks, 2-Verbalize Understanding, 3-ImproveStrength/Leo 1=Demonstrate adherence to instructed precautions during ADL tasks. 2=Patient will verbalize/demonstrate understanding of assistive devices/modifications for ADL. 3=Patient will improve strength/tolerance for activity to enable patient to perform ADL's. OT Chief Psychologist Goals Residential Goals Time Frame: Jul 09, 2019 Eating (FIM): 6 Eating (QC): 6 Groomin Oral Hygiene (QC): 6 Bathing(FIM): 5 Shower/Bathe Self (QC): 5 Upper Body Dressing(FIM): 6 Upper Body Dressing (QC): 6 Lower Body Dressing(FIM): 6 Lower Body Dressing (QC): 5 On/Off Footwear (QC): 5 Toileting(FIM): 6 Toileting Hygiene (QC): 6 Toilet/Commode Transfer(FIM): 6 Toilet/Commode Transfer (QC): 6 Shower Transfer(FIM): 5 Comprehension(FIM): 7 Expression (FIM): 7 Social Interaction(FIM): 7 Problem Solving(FIM): 7 Memory(FIM): 7 Additional Goals: 1-Demonstrate ADL Tasks, 2-Verbalize Understanding, 3- ImproveStrength/Leo 1=Demonstrate adherence to instructed precautions during ADL tasks. 2=Patient will verbalize/demonstrate understanding of assistive devices/modifications for ADL. 3=Patient will improve strength/tolerance for activity to enable patient to perform ADL's. OT Education/Plan Discharge Recommendations Plan/Recommendations: Continue POC Treatment Plan/Plan of Care Patient would benefit from OT for education, treatment and training to promote independence in ADL's, mobility, safety and/or upper extremity function for ADL's. Plan of Care: ADL Retraining, Functional Mobility, Group Exercise/Act as Ind, UE Funct Exercise/Act Treatment Duration: Jul 09, 2019 Frequency: At least 5 of 7 days/Wk (IRF) Estimated Hrs Per Day: 1.5 hours per day Agreement: Yes Rehab Potential: Fair Time/GCodes Start Time: 11:00 Stop Time: 11:45 Total Time Billed (hr/min): 45 Billed Treatment Time 1 visit, FAx3(45minutes) Co-treat with PT FRED NEIL OT Jul 09, 2019 13:10
--- NOTE | 2019-07-09 14:04 | Physical Therapy Daily Note ---
PT Daily Note-Current Subjective Patient in bed pre tx, agrees to PT, no complaints of pain at rest. Noticed that patients oxygen was off, turned it back on to 5 liters and notified nurse. Appearance Patient in wheelchair at bedside post tx with nurse call, phone, tray, all needs met. Mental Status Patient Orientation: Person, Place, Situation Attachments: Oxygen, Drains, Alves Catheter Transfers Therapy Code Descriptions/Definitions Functional [place] Measure: 0=Not Assessed/NA 4=Minimal Assistance 1=Total Assistance 5=Supervision or Setup 2=Maximal Assistance 6=Modified [place] 3=Moderate Assistance 7=Complete [place] Therapy Quality Codes: 6 Independent with activity with or without an assistive device 5 Patient requires set up or clean up by helper. Patient completes activity by themselves 4 Supervision or touching assist (CGA). [place] provide cues , steadying as sist 3 The helper provides less than half the effort to complete the activity 2 The helper provides more than half the effort to complete the activity 1 Dependent. The helper does all the effort to complete an activity 7 Patient refused to complete or attempt activity 9 The patient did not perform the activity before the current illness or injury 88 Not attempted due to Medical conditions or safety concerns Transfers (B, C, W/C) (FIM): 2 Scootin Rollin Supine to/from Sit: 2 Sit to/from Stand: 3 Bed to/from Chair: 3 slightly retropulsive with standing at first, SOB, transferred to WC from bed Exercises Seated Therapy Exercises: Ankle pumps, Long arc quads, Hip flexion, Hip abd/add Seated Reps: 20 Treatments bed mobility and transfers, LE exercise Assessment Current Status: Poor Progress SOB, poor trunk movement PT Short Term Goals Short Term Goals Time Frame: Jun 25, 2019 Transfers (B,C,W/C) (FIM): 3 (met) Gait (FIM): 1 Gait Distance Comment: 5' Gait Level of Assist: 3 Gait Assistive Device: FWW Wheelchair Distance: 50' PT Automobile Damage Field Appraiser Goals Automobile Damage Field Appraiser Goals PT Automobile Damage Field Appraiser Goals Time Frame: Jul 09, 2019 Transfers (B,C,W/C) (FIM): 4 Sit to Lying (QC): 4 Lying-Sitting on Side/Bed(QC): 4 Sit to Stand (QC): 3 Rollin Roll Left to Right (QC): 4 Chair/Yeb-oa-Vykbr Xfer(QC): 3 Car Transfer (QC): 3 Gait (FIM): 1 Distance: 20' Walk 10 feet (QC): 3 Walk 10ft-Uneven Surface(QC): 3 Gait Level of Assist: 4 Gait Assistive Device: FWW Wheelchair (FIM): 6 Distance: 150' Wheelchair Level of Assist: 5 Wheel 50 feet with 2 turns (QC: 4 PT Plan Problem List Problem List: Activity Tolerance, Functional Strength, Safety, Balance, Gait, Transfer, Bed Mobility, ROM Treatment/Plan Treatment Plan: Continue Plan of Care Treatment Plan: Bed Mobility, Concurrent Therapy, Education, Functional Activity Leo, Functional Strength, Group Therapy, Gait, Safety, Therapeutic Exercise, Transfers Treatment Duration: Jul 09, 2019 Frequency: At least 5 of 7 days/Wk (IRF) Estimated Hrs Per Day: 1.5 hours per day Patient and/or Family Agrees t: Yes Safety Risks/Education Patient Education: Transfer Techniques, Correct Positioning, Safety Issues Teaching Recipient: Patient Teaching Methods: Demonstration, Discussion Response to Teaching: Reinforcement Needed Time/GCodes Time In: 1330 Time Out: 1400 Total Billed Treatment Time: 30 Total Billed Treatment 1 visit EX 15' FA 15' BRIDGETTE CAT PT Jul 09, 2019 14:04
[2019-07-09] MEDS: ROFLUMILAST 500 MCG TAB (DALIRESP) PO SCH (14:54)
[2019-07-09] MEDS ORDERED: POLYETHYLENE GLYCOL 17 GM (MIRALAX) PACK PO PRN (15:30)
[2019-07-09 18:00] VITALS: BP 153/56
[2019-07-09 18:45] VITALS: BP 147/65
--- NOTE | 2019-07-09 18:45 | NUR ---
MILD CONFUSION. IS FAIRLY ORIENTED, BUT WANTED TO WALK OVER TO A FRIEND'S HOUSE. BP 147/65 - 93 - 22 - O2 SAT 88% ON 5L. O2 INCREASED TO 6L AND DR. DUDLEY NOTIFIED. BLOOD SUGAR CHECKED AND 217. PATIENT AGREED TO TRY CPAP AND SAT CLIMBED UP TO 95%. NIGHT NURSE INFORMED AND MONITORING WILL CONTINUE.
[2019-07-09] MEDS: QUEtiapine 25 MG (SEROquel) TAB IMMEDIATE RELEASE PO SCH (21:22)
[2019-07-09] MEDS: GABAPENTIN 600 MG (NEURONTIN) TAB PO SCH (21:23)
[2019-07-09] MEDS: ALPRAZolam 0.25 MG (XANAX) TAB PO PRN (21:26)
[2019-07-10] MEDS: oxyCODONE/APAP 5/325MG (PERCOCET 5) TABLET PO PRN ×3 (00:06→17:44)
[2019-07-10 06:47] VITALS: BP 143/70
[2019-07-10] MEDS: CATHETER FLUSH 10 ML SYR IV SCH ×3 (07:12→21:28)
[2019-07-10] MEDS: KCL 20 MEQ TAB (K-DUR) PO SCH (07:13)
[2019-07-10] MEDS: MULTIVIT W/MINERALS TAB (THERAGRAN M) PO SCH (07:13)
[2019-07-10] MEDS: amLODIPine 10 MG (NORVASC) TAB PO SCH (07:13)
[2019-07-10] MEDS: PANTOPRAZOLE 40 MG (PROTONIX) TAB PO SCH (07:13)
[2019-07-10] MEDS: LACTOBACILLUS ACIDOPHILUS (PROBIOTIC) CAPSULE PO SCH ×4 (07:14→21:24)
[2019-07-10] MEDS: SILDENAFIL 20 MG (REVATIO) TAB NON-FORMULARY PO SCH ×3 (07:14→21:28)
[2019-07-10] MEDS: inSUlin ASPART (NovoLOG) 1 UNIT/0.01 ML (CHARGE PER UNIT) SC SCH ×4 (07:15→21:24)
[2019-07-10] MEDS: RT-ALBUTEROL/IPRATROPIUM 3 ML (DUONEB) VIAL INH SCH ×3 (07:19→21:03)
[2019-07-10 09:39] VITALS: BP 161/67
--- NOTE | 2019-07-10 09:42 | Physical Therapy Daily Note ---
PT Daily Note-Current Subjective Patient in bed pre tx, agrees to get out of bed and into wheelchair at bedside, has 3/10 back pain. Appearance Patient in wheelchair at bedside post tx with nurse call, phone, tray, all needs met. Mental Status Patient Orientation: Person, Place, Situation Attachments: Oxygen, Drains, Alves Catheter Transfers Therapy Code Descriptions/Definitions Functional [place] Measure: 0=Not Assessed/NA 4=Minimal Assistance 1=Total Assistance 5=Supervision or Setup 2=Maximal Assistance 6=Modified [place] 3=Moderate Assistance 7=Complete [place] Therapy Quality Codes: 6 Independent with activity with or without an assistive device 5 Patient requires set up or clean up by helper. Patient completes activity by themselves 4 Supervision or touching assist (CGA). [place] provide cues , steadying assist 3 The helper provides less than half the effort to complete the activity 2 The helper provides more than half the effort to complete the activity 1 Dependent. The helper does all the effort to complete an activity 7 Patient refused to complete or attempt activity 9 The patient did not perform the activity before the current illness or injury 88 Not attempted due to Medical conditions or safety concerns Transfers (B, C, W/C) (FIM): 2 Scootin Rollin Supine to/from Sit: 2 Sit to/from Stand: 4 Bed to/from Chair: 4 Better sit to stand from elevated surface (raise bed). Gait Training Gait (FIM): 1 Distance: 5' Gait Level of Assist: 4 Gait Persons Needed: 1 Gait Assistive Device: FWW Treatments bed mobility and transfers Assessment Current Status: Poor Progress no change in mobility, SOB with activity PT Short Term Goals Short Term Goals Time Frame: Jun 25, 2019 Transfers (B,C,W/C) (FIM): 3 (met) Gait (FIM): 1 Gait Distance Comment: 5' Gait Level of Assist: 3 Gait Assistive Device: FWW Wheelchair Distance: 50' PT Rn Field Case Manager Goals Shelter Goals PT Rn Field Case Manager Goals Time Frame: Jul 09, 2019 Transfers (B,C,W/C) (FIM): 4 Sit to Lying (QC): 4 Lying-Sitting on Side/Bed(QC): 4 Sit to Stand (QC): 3 Rollin Roll Left to Right (QC): 4 Chair/Ccx-lp-Sshhv Xfer(QC): 3 Car Transfer (QC): 3 Gait (FIM): 1 Distance: 20' Walk 10 feet (QC): 3 Walk 10ft-Uneven Surface(QC): 3 Gait Level of Assist: 4 Gait Assistive Device: FWW Wheelchair (FIM): 6 Distance: 150' Wheelchair Level of Assist: 5 Wheel 50 feet with 2 turns (QC: 4 PT Plan Problem List Problem List: Activity Tolerance, Functional Strength, Safety, Balance, Gait, Transfer, Bed Mobility, ROM Treatment/Plan Treatment Plan: Continue Plan of Care Treatment Plan: Bed Mobility, Concurrent Therapy, Education, Functional Activity Leo, Functional Strength, Group Therapy, Gait, Safety, Therapeutic Exercise, Transfers Treatment Duration: Jul 09, 2019 Frequency: At least 5 of 7 days/Wk (IRF) Estimated Hrs Per Day: 1.5 hours per day Patient and/or Family Agrees t: Yes Safety Risks/Education Patient Education: Gait Training, Transfer Techniques, Correct Positioning, Safety Issues Teaching Recipient: Patient Teaching Methods: Demonstration, Discussion Response to Teaching: Reinforcement Needed Time/GCodes Time In: 0925 Time Out: 0938 Total Billed Treatment Time: 13 Total Billed Treatment 1 visit FA 13' BRIDGETTE CAT PT Jul 10, 2019 09:42
[2019-07-10] MEDS: meTOprolol TARTRATE 25 MG (LOPRESSOR) TABLET PO SCH ×2 (09:43→21:24)
[2019-07-10] MEDS: FUROSEMIDE 40 MG (LASIX) TAB PO SCH (09:43)
[2019-07-10] MEDS: GABAPENTIN 300 MG (NEURONTIN) CAP PO SCH (09:44)
[2019-07-10] MEDS: TAMSULOSIN 0.4 MG (FLOMAX) CAP PO SCH (09:44)
[2019-07-10] MEDS: ENOXAPARIN 40 MG/0.4 ML (LOVENOX) SYR SC SCH ×2 (09:45→21:25)
[2019-07-10] MEDS: DICLOFENAC 1% GEL 100 GM (VOLTAREN) TUBE TOP SCH ×4 (09:46→21:25)
[2019-07-10] MEDS: THEOPHYLLINE ER 400 MG TAB (THEO-24) PO SCH (09:51)
--- NOTE | 2019-07-10 13:03 | PM&R Progress Note ---
Subjective HPI/CC On Admission Date Seen by Provider: Jul 10, 2019 Time Seen by Provider: 12:30 CC: Critical illness debility HPI: This is a 68-year-old white male clinic patient of Dr. 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 Received report from Dr. Montesinos at [facility] in [place]. Patient was admitted there after difficulty weaning off the ventilator after he was intubated after failed noninvasive ventilator support after he was transferred from [facility] after his spinal surgery to [facility]. He remained on the ventilator for 3 weeks has some vocal cord dysfunction due to the long intubation status and most recently having urinary retention after Alves catheter was discontinued and currently has Klebsiella UTI maintained on Bactrim and Cipro double coverage because of such a significant organism. He had some significant hallucinations last week but that has been resolved. Patient currently remains on 2 L by nasal cannula of oxygen receives nebulizer treatments of DuoNeb every 6 hours and uses his home CPAP machine. His prior level of functioning was independent of ADLs and ambulation. I reviewed all of his current medications and pharmacy assistant here at the hospital has confirmed accuracy and all those have been continued. He does have a PICC line in his right upper arm. Upon review of the history and physical the following information was obtained: Past medical history: diabetes mellitus on oral therapy, obstructive sleep apnea, COPD with chronic respiratory failure, polycythemia due to chronic respiratory failure, tobacco use, chronic low back pain, peripheral neuropathy, PVD, CAD previous bypass surgery, thrombocytopenia, morbid obesity with hypoventilation syndrome, congestive heart failure with acute on chronic diastolic type with volume overload at admission to [facility], hyperlipidemia, hypertension, carpal tunnel syndrome, severe DJD of the right knee. He also has a history of SVT. Subjective/Events-last exam [facility] [place] has accepted the patient once stable and it appears that will be at the first of the week Chest x-ray showed a questionable infiltrate so CT chest obtained that revealed only pulmonary edema and he is much improved after Lasix IV given Hemoglobin was 7.1 yesterday 5 L of oxygen maintained but he seems to be stable today Xanax helps a little bit without over sedating +BM Labored breathing is always an issue Leg pain persists Creatinine 1.3 yest Conferred with RN Reviewed therapy notes Appreciate Dr. Ahn Review of Systems Pulmonary: Dyspnea Musculoskeletal: back pain, leg pain Objective Exam Vital Signs Vital Signs Date Time Temp Pulse Resp B/P (MAP) Pulse Ox O2 Delivery O2 Flow Rate FiO2 07/10/19 09:39 78 20 161/67 (98) 94 Nasal Cannula 5.00 07/10/19 06:47 97.0 Capillary Refill : Less Than 3 SecondsLess Than 3 Seconds General Appearance: No Apparent Distress, WD/WN, Chronically ill, Obese HEENT: PERRL/EOMI, Normal ENT Inspection, Pharynx Normal Neck: Full Range of Motion, Non Tender, Supple Respiratory: Chest Non Tender, Lungs Clear, Normal Breath Sounds, No Accessory Muscle Use, No Respiratory Distress Cardiovascular: Regular Rate, Rhythm (Bilateral lower leg edema) Gastrointestinal: Normal Bowel Sounds, Non Tender Back: Decreased Range of Motion Extremity: Pedal Edema Neurologic/Psychiatric: Alert, Oriented x3, No Motor/Sensory Deficits, Normal Mood/Affect, administrative secretary II-XII Norm as Tested Skin: Normal Color, Warm/Dry Lymphatic: No Adenopathy Results/Procedures Lab Patient resulted labs reviewed. FIM Transfers Therapy Code Descriptions/Definitions Functional [place] Measure: 0=Not Assessed/NA 4=Minimal Assistance 1=Total Assistance 5=Supervision or Setup 2=Maximal Assistance 6=Modified [place] 3=Moderate Assistance 7=Complete [place] Therapy Quality Codes: 6 Independent with activity with or without an assistive device 5 Patient requires set up or clean up by helper. Patient completes activity by themselves 4 Supervision or touching assist (CGA). [place] provide cues , steadying assist 3 The helper provides less than half the effort to complete the activity 2 The helper provides more than half the effort to complete the activity 1 Dependent. The helper does all the effort to complete an activity 7 Patient refused to complete or attempt activity 9 The patient did not perform the activity before the current illness or injury 88 Not attempted due to Medical conditions or safety concerns Transfers (B, C, W/C) (FIM): 2 Scootin Rollin Roll Left to Right (QC): 5 Supine to/from Sit: 2 Sit to/from Stand: 4 Sit to Lying (QC): 3 Sit to Stand (QC): 3 Chair/Eza-lr-Jlzmb Xfer(QC): 4 (min assist to transfer wc to bed with skilled cues for technique, hand placement and sequencing. ) Bed to/from Chair: 4 Car Transfer (QC): 2 Gait Training Does the Patient Walk?: Yes Gait (FIM): 1 Distance (FIM): 9=639-61 ft Distance: 5' Walk 10 feet (QC): 4 Gait Level of Assist: 4 Gait Persons Needed: 1 Gait Assistive Device: FWW Wheelchair Training Does the Pt Use a Wheelchair?: Yes Wheelchair (FIM): 2 Wheelchair Distance: 0=342-49 ft Distance: 50' Wheelchair Level of Assist: 4 Wheel 50 ft with 2 turns (QC): 3 Wheel 150 ft (QC): 4 Type of Wheelchair: Manual Mental Status/Objective Comprehension: 7 Expression: 7 Social Interaction: 7 Problem Solvin Memory: 7 ADL-Treatment Feedin (Pt able to feed self without assist) Eating (QC): 6 Groomin Oral Hygiene (QC): 3 Bathin Bathing Location: L Arm, R Arm, Chest, Abdomen Shower/Bathe Self (QC): 3 Upper Extremity Dressin Upper Body Dressing (QC): 3 Lower Extremity Dressin Lower Body Dressing (QC): 2 On/Off Footwear (QC): 2 Toiletin (Pt. was incontinent of bowel while in bed. OT removed depend in bed, and placed bed betts per pt. request, as he had to go quickly. After toileting, OT cleansed brandyn area at bed level.) Toileting Hygiene (QC): 1 Toilet/Commode Transfer: 2 Toilet Transfer (QC): 2 Shower: 0 Assessment/Plan Assessment and Plan Assess & Plan/Chief Complaint Assessment: (1) Myopathy (2) COPD (chronic obstructive pulmonary disease) (3) Respiratory failure, acute and chronic (4) Polycythemia (5) Tobacco use (6) Back pain (7) Neuropathy (8) PVD (peripheral vascular disease) (9) Hx of CABG (10) Obesity hypoventilation syndrome (11) Hypertension (12) Renal insufficiency (13) Hyperlipemia (14) Arthritis of right knee (15) Hx of supraventricular tachycardia (16) Obesity (17) Diabetes mellitus (18) SIDNEY on CPAP (19) CO2 narcosis (20) CAD (coronary artery disease) (21) Status post lumbar spine surgery for decompression of spinal cord (22) UTI Klebsiella s/p Bactrim and Cipro then DC when added Jorge and Vanc due to wound (23) Anxiety (24) Wound dehiscence requiring bedside debridement and placement of wound vac by Dr Carrasco 06/19/19 (25) Diarrhea w/mild dehydration now resolving (26) edema (27) Left leg radiculopathy severe and chronic Plan: Continue monitoring labs (CBC w/diff, CMP) prn Continue to closely monitor due to recent surgery IRF protocol Pain control High risk for C diff for any abx in future IS use along with Nebs Continue progress of PT with ambulation Encourage use of CPAP but refuses most of the time Continue to try and encourage VARUN wrap usage even though he is refusing Pay close attention after surgery due to patients history of intubation after surgical procedures Monitor I/O Continue to monitor glucose control Evaluate patients left foot if pain worsens continue wound care Monitor patient for bowel movements (has not gone since surgery) give extra meds Consult doctors are appreciated Continue to monitor vitals. Monitoring closely due to respiratory issue. Consult pulmonary for patients breathing Prognosis guarded given his severe debility and severe lung disease Barriers that he needs addressed before he gets home include: 1. Patient has 2 steps at home and this does not have railings 2. Patient drives but will need assistance in and out and a consult to see if he is even capable of driving still 3. Patient really likes the walker and feels he would really benefit from one if he had one for himself. 4. Patient does not have someone who checks in on him. Would be good to organize family or friends to check in on him. 5. Does patient need at home oxygen (pulmonary consult to evaluate patients ability to be home and not on oxygen). 6. Patient needs an evaluation of his home to make sure he has items that pose a fall risk removed or placed somewhere сергей. 7. Patient needs an at home evaluation of his bathroom to make sure it is adequate for him to function. Areas of living that already have assistance include: 1. currently does not have items that he may need to meet his needs at home. Areas that still need to be discussed: 1. Patient being able to manage drug regimen without at home help (1) Myopathy (2) COPD (chronic obstructive pulmonary disease) (3) Polycythemia (4) Diabetes mellitus (5) Back pain (6) CAD (coronary artery disease) (7) Hyperlipemia (8) Neuropathy (9) Renal insufficiency (10) PVD (peripheral vascular disease) (11) Hypertension (12) Obesity (13) Respiratory failure, acute and chronic (14) Arthritis of right knee (15) Obesity hypoventilation syndrome (16) CO2 narcosis (17) SIDNEY on CPAP (18) Hx of supraventricular tachycardia (19) Decubitus ulcer (20) Urinary retention (21) BPH (benign prostatic hyperplasia) (22) UTI due to Klebsiella species (23) Hyperkalemia (24) Renal failure (25) CO2 retention (26) Postoperative wound dehiscence (27) Elevated brain natriuretic peptide (BNP) level (28) Clot retention of urine (29) Wound drainage (30) Hx of CABG (31) Status post lumbar spine surgery for decompression of spinal cord (32) Tobacco use Assessment and plan reviewed Patient with significant resp issues that may improve or if worsens will need ICU transfer but improved today Monitor closely Appreciate DR Ahn (1) Respiratory failure, acute and chronic (2) COPD (chronic obstructive pulmonary disease) (3) Polycythemia (4) Diabetes mellitus Status: Chronic (5) Back pain (6) CAD (coronary artery disease) Status: Chronic (7) Hyperlipemia (8) Myopathy (9) Neuropathy (10) Renal insufficiency (11) PVD (peripheral vascular disease) (12) Hypertension (13) Obesity Status: Chronic (14) Arthritis of right knee (15) Obesity hypoventilation syndrome (16) CO2 narcosis Status: Acute (17) SIDNEY on CPAP Status: Chronic (18) Hx of supraventricular tachycardia (19) Decubitus ulcer (20) Urinary retention (21) BPH (benign prostatic hyperplasia) (22) UTI due to Klebsiella species (23) Hyperkalemia Status: Acute (24) Renal failure Status: Acute (25) CO2 retention (26) Postoperative wound dehiscence (27) Elevated brain natriuretic peptide (BNP) level Status: Acute (28) Clot retention of urine Status: Acute (29) Wound drainage (30) Hx of CABG (31) Status post lumbar spine surgery for decompression of spinal cord Status: Acute (32) Tobacco use JASPER LONG DO Jul 10, 2019 13:03
[2019-07-10] MEDS: ROFLUMILAST 500 MCG TAB (DALIRESP) PO SCH (14:55)
[2019-07-10 17:21] VITALS: BP 157/65
[2019-07-10] MEDS: QUEtiapine 25 MG (SEROquel) TAB IMMEDIATE RELEASE PO SCH (21:24)
[2019-07-10] MEDS: ALPRAZolam 0.25 MG (XANAX) TAB PO PRN (21:24)
[2019-07-10] MEDS: GABAPENTIN 600 MG (NEURONTIN) TAB PO SCH (21:24)
[2019-07-11] MEDS: oxyCODONE/APAP 5/325MG (PERCOCET 5) TABLET PO PRN ×3 (04:25→20:32)
[2019-07-11 06:00] VITALS: BP 160/64
[2019-07-11] MEDS: LACTOBACILLUS ACIDOPHILUS (PROBIOTIC) CAPSULE PO SCH ×4 (06:26→20:32)
[2019-07-11] MEDS: PANTOPRAZOLE 40 MG (PROTONIX) TAB PO SCH (06:27)
[2019-07-11] MEDS: KCL 20 MEQ TAB (K-DUR) PO SCH (06:27)
[2019-07-11] MEDS: SILDENAFIL 20 MG (REVATIO) TAB NON-FORMULARY PO SCH ×3 (06:27→20:32)
[2019-07-11] MEDS: MULTIVIT W/MINERALS TAB (THERAGRAN M) PO SCH (06:27)
[2019-07-11] MEDS: amLODIPine 10 MG (NORVASC) TAB PO SCH (06:27)
[2019-07-11] MEDS: CATHETER FLUSH 10 ML SYR IV SCH ×3 (06:28→20:34)
[2019-07-11] MEDS: inSUlin ASPART (NovoLOG) 1 UNIT/0.01 ML (CHARGE PER UNIT) SC SCH ×4 (06:48→20:40)
[2019-07-11] MEDS: RT-ALBUTEROL/IPRATROPIUM 3 ML (DUONEB) VIAL INH SCH ×3 (07:34→22:46)
[2019-07-11 08:05] VITALS: BP 131/60
[2019-07-11] MEDS: FUROSEMIDE 40 MG (LASIX) TAB PO SCH (09:14)
[2019-07-11] MEDS: THEOPHYLLINE ER 400 MG TAB (THEO-24) PO SCH (09:14)
[2019-07-11] MEDS: DICLOFENAC 1% GEL 100 GM (VOLTAREN) TUBE TOP SCH ×4 (09:15→20:33)
[2019-07-11] MEDS: TAMSULOSIN 0.4 MG (FLOMAX) CAP PO SCH (09:15)
[2019-07-11] MEDS: meTOprolol TARTRATE 25 MG (LOPRESSOR) TABLET PO SCH ×2 (09:15→20:32)
[2019-07-11] MEDS: GABAPENTIN 300 MG (NEURONTIN) CAP PO SCH (09:15)
[2019-07-11] MEDS: ENOXAPARIN 40 MG/0.4 ML (LOVENOX) SYR SC SCH ×2 (09:16→20:32)
--- NOTE | 2019-07-11 12:17 | PM&R Progress Note ---
Subjective HPI/CC On Admission Date Seen by Provider: Jul 11, 2019 Time Seen by Provider: 12:00 CC: Critical illness debility HPI: This is a 68-year-old white male clinic patient of Dr. 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 Received report from Dr. Montesinos at [facility] in [place]. Patient was admitted there after difficulty weaning off the ventilator after he was intubated after failed noninvasive ventilator support after he was transferred from [facility] after his spinal surgery to [facility]. He remained on the ventilator for 3 weeks has some vocal cord dysfunction due to the long intubation status and most recently having urinary retention after Alves catheter was discontinued and currently has Klebsiella UTI maintained on Bactrim and Cipro double coverage because of such a significant organism. He had some significant hallucinations last week but that has been resolved. Patient currently remains on 2 L by nasal cannula of oxygen receives nebulizer treatments of DuoNeb every 6 hours and uses his home CPAP machine. His prior level of functioning was independent of ADLs and ambulation. I reviewed all of his current medications and manager of pharmacy here at the hospital has confirmed accuracy and all those have been continued. He does have a PICC line in his right upper arm. Upon review of the history and physical the following information was obtained: Past medical history: diabetes mellitus on oral therapy, obstructive sleep apnea, COPD with chronic respiratory failure, polycythemia due to chronic respiratory failure, tobacco use, chronic low back pain, peripheral neuropathy, PVD, CAD previous bypass surgery, thrombocytopenia, morbid obesity with hypoventilation syndrome, congestive heart failure with acute on chronic diastolic type with volume overload at admission to [facility], hyperlipidemia, hypertension, carpal tunnel syndrome, severe DJD of the right knee. He also has a history of SVT. Subjective/Events-last exam [facility] [place] has accepted the patient once stable and it appears that will be at the first of this week Lung status seems to be going very well now Hemoglobin was 7.1 last lab check 5 L of oxygen maintained but he seems to be stable today Xanax helps a little bit without over sedating +BM Labored breathing is always an issue and it is chronic even before this long illness Leg pain left persists as he had prior to back surgery Creatinine 1.3 yest Conferred with RN Reviewed therapy notes Appreciate Dr. Ahn Review of Systems Pulmonary: Dyspnea Musculoskeletal: back pain Objective Exam Vital Signs Vital Signs Date Time Temp Pulse Resp B/P (MAP) Pulse Ox O2 Delivery O2 Flow Rate FiO2 07/11/19 15:27 92 Nasal Cannula 5.00 07/11/19 08:05 97.2 81 20 131/60 (83) Capillary Refill : Less Than 3 SecondsLess Than 3 Seconds General Appearance: No Apparent Distress, WD/WN, Chronically ill, Obese HEENT: PERRL/EOMI, Normal ENT Inspection, Pharynx Normal Neck: Full Range of Motion, Non Tender, Supple Respiratory: Chest Non Tender, Lungs Clear, Normal Breath Sounds, No Accessory Muscle Use, No Respiratory Distress Cardiovascular: Regular Rate, Rhythm (Bilateral lower leg edema) Gastrointestinal: Normal Bowel Sounds, Non Tender Back: Decreased Range of Motion Extremity: Pedal Edema Neurologic/Psychiatric: Alert, Oriented x3, No Motor/Sensory Deficits, Normal Mood/Affect, 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 FIM Transfers Therapy Code Descriptions/Definitions Functional [place] Measure: 0=Not Assessed/NA 4=Minimal Assistance 1=Total Assistance 5=Supervision or Setup 2=Maximal Assistance 6=Modified [place] 3=Moderate Assistance 7=Complete [place] Therapy Quality Codes: 6 Independent with activity with or without an assistive device 5 Patient requires set up or clean up by helper. Patient completes activity by themselves 4 Supervision or touching assist (CGA). [place] provide cues , steadying assist 3 The helper provides less than half the effort to complete the activity 2 The helper provides more than half the effort to complete the activity 1 Dependent. The helper does all the effort to complete an activity 7 Patient refused to complete or attempt activity 9 The patient did not perform the activity before the current illness or injury 88 Not attempted due to Medical conditions or safety concerns Transfers (B, C, W/C) (FIM): 2 Scootin Rollin Roll Left to Right (QC): 5 Supine to/from Sit: 2 Sit to/from Stand: 4 Sit to Lying (QC): 3 Sit to Stand (QC): 3 Chair/Xvv-py-Mlddn Xfer(QC): 4 (min assist to transfer wc to bed with skilled cues for technique, hand placement and sequencing. ) Bed to/from Chair: 4 Car Transfer (QC): 2 Gait Training Does the Patient Walk?: Yes Gait (FIM): 1 Distance (FIM): 5=669-01 ft Distance: 5' Walk 10 feet (QC): 4 Gait Level of Assist: 4 Gait Persons Needed: 1 Gait Assistive Device: FWW Wheelchair Training Does the Pt Use a Wheelchair?: Yes Wheelchair (FIM): 2 Wheelchair Distance: 3=243-48 ft Distance: 50' Wheelchair Level of Assist: 4 Wheel 50 ft with 2 turns (QC): 3 Wheel 150 ft (QC): 4 Type of Wheelchair: Manual Mental Status/Objective Comprehension: 7 Expression: 7 Social Interaction: 7 Problem Solvin Memory: 7 ADL-Treatment Feedin (Pt able to feed self without assist) Eating (QC): 6 Groomin Oral Hygiene (QC): 3 Bathin Bathing Location: L Arm, R Arm, Chest, Abdomen Shower/Bathe Self (QC): 3 Upper Extremity Dressin Upper Body Dressing (QC): 3 Lower Extremity Dressin Lower Body Dressing (QC): 2 On/Off Footwear (QC): 2 Toiletin (Pt. was incontinent of bowel while in bed. OT removed depend in bed, and placed bed betts per pt. request, as he had to go quickly. After toileting, OT cleansed brandyn area at bed level.) Toileting Hygiene (QC): 1 Toilet/Commode Transfer: 2 Toilet Transfer (QC): 2 Shower: 0 Assessment/Plan Assessment and Plan Assess & Plan/Chief Complaint Assessment: (1) Myopathy (2) COPD (chronic obstructive pulmonary disease) (3) Respiratory failure, acute and chronic (4) Polycythemia (5) Tobacco use (6) Back pain (7) Neuropathy (8) PVD (peripheral vascular disease) (9) Hx of CABG (10) Obesity hypoventilation syndrome (11) Hypertension (12) Renal insufficiency (13) Hyperlipemia (14) Arthritis of right knee (15) Hx of supraventricular tachycardia (16) Obesity (17) Diabetes mellitus (18) SIDNEY on CPAP (19) CO2 narcosis (20) CAD (coronary artery disease) (21) Status post lumbar spine surgery for decompression of spinal cord (22) UTI Klebsiella s/p Bactrim and Cipro then DC when added Jorge and Vanc due to wound (23) Anxiety (24) Wound dehiscence requiring bedside debridement and placement of wound vac b y Dr Carrasco 06/19/19 (25) Diarrhea w/mild dehydration now resolving (26) edema (27) Left leg radiculopathy severe and chronic Plan: Continue monitoring labs (CBC w/diff, CMP) prn Continue to closely monitor due to recent surgery IRF protocol Pain control High risk for C diff for any abx in future IS use along with Nebs Continue progress of PT with ambulation Encourage use of CPAP but refuses most of the time Continue to try and encourage VARUN wrap usage even though he is refusing Pay close attention after surgery due to patients history of intubation after surgical procedures Monitor I/O Continue to monitor glucose control Evaluate patients left foot if pain worsens continue wound care Monitor patient for bowel movements (has not gone since surgery) give extra meds Consult doctors are appreciated Continue to monitor vitals. Monitoring closely due to respiratory issue. Consult pulmonary for patients breathing Prognosis guarded given his severe debility and severe lung disease Barriers that he needs addressed before he gets home include: 1. Patient has 2 steps at home and this does not have railings 2. Patient drives but will need assistance in and out and a consult to see if he is even capable of driving still 3. Patient really likes the walker and feels he would really benefit from one if he had one for himself. 4. Patient does not have someone who checks in on him. Would be good to organize family or friends to check in on him. 5. Does patient need at home oxygen (pulmonary consult to evaluate patients ability to be home and not on oxygen). 6. Patient needs an evaluation of his home to make sure he has items that pose a fall risk removed or placed somewhere сергей. 7. Patient needs an at home evaluation of his bathroom to make sure it is adequate for him to function. Areas of living that already have assistance include: 1. currently does not have items that he may need to meet his needs at home. Areas that still need to be discussed: 1. Patient being able to manage drug regimen without at home help (1) Myopathy (2) COPD (chronic obstructive pulmonary disease) (3) Polycythemia (4) Diabetes mellitus (5) Back pain (6) CAD (coronary artery disease) (7) Hyperlipemia (8) Neuropathy (9) Renal insufficiency (10) PVD (peripheral vascular disease) (11) Hypertension (12) Obesity (13) Respiratory failure, acute and chronic (14) Arthritis of right knee (15) Obesity hypoventilation syndrome (16) CO2 narcosis (17) SIDNEY on CPAP (18) Hx of supraventricular tachycardia (19) Decubitus ulcer (20) Urinary retention (21) BPH (benign prostatic hyperplasia) (22) UTI due to Klebsiella species (23) Hyperkalemia (24) Renal failure (25) CO2 retention (26) Postoperative wound dehiscence (27) Elevated brain natriuretic peptide (BNP) level (28) Clot retention of urine (29) Wound drainage (30) Hx of CABG (31) Status post lumbar spine surgery for decompression of spinal cord (32) Tobacco use Assessment and plan reviewed Patient with significant resp issues that may improve or if worsens will need ICU transfer but improved today Monitor closely Appreciate DR Ahn (1) Respiratory failure, acute and chronic (2) COPD (chronic obstructive pulmonary disease) (3) Polycythemia (4) Diabetes mellitus Status: Chronic (5) Back pain (6) CAD (coronary artery disease) Status: Chronic (7) Hyperlipemia (8) Myopathy (9) Neuropathy (10) Renal insufficiency (11) PVD (peripheral vascular disease) (12) Hypertension (13) Obesity Status: Chronic (14) Arthritis of right knee (15) Obesity hypoventilation syndrome (16) CO2 narcosis Status: Acute (17) SIDNEY on CPAP Status: Chronic (18) Hx of supraventricular tachycardia (19) Decubitus ulcer (20) Urinary retention (21) BPH (benign prostatic hyperplasia) (22) UTI due to Klebsiella species (23) Hyperkalemia Status: Acute (24) Renal failure Status: Acute (25) CO2 retention (26) Postoperative wound dehiscence (27) Elevated brain natriuretic peptide (BNP) level Status: Acute (28) Clot retention of urine Status: Acute (29) Wound drainage (30) Hx of CABG (31) Status post lumbar spine surgery for decompression of spinal cord Status: Acute (32) Tobacco use JASPER LONG DO Jul 11, 2019 12:17
[2019-07-11] MEDS: ROFLUMILAST 500 MCG TAB (DALIRESP) PO SCH (14:07)
[2019-07-11 17:11] VITALS: BP 145/57
[2019-07-11] MEDS: GABAPENTIN 600 MG (NEURONTIN) TAB PO SCH (20:32)
[2019-07-11] MEDS: QUEtiapine 25 MG (SEROquel) TAB IMMEDIATE RELEASE PO SCH (20:32)
[2019-07-12] MEDS: oxyCODONE/APAP 5/325MG (PERCOCET 5) TABLET PO PRN ×3 (02:29→16:28)
[2019-07-12] MEDS: inSUlin ASPART (NovoLOG) 1 UNIT/0.01 ML (CHARGE PER UNIT) SC SCH ×4 (06:24→21:40)
[2019-07-12] MEDS: amLODIPine 10 MG (NORVASC) TAB PO SCH (06:33)
[2019-07-12] MEDS: MULTIVIT W/MINERALS TAB (THERAGRAN M) PO SCH (06:33)
[2019-07-12] MEDS: LACTOBACILLUS ACIDOPHILUS (PROBIOTIC) CAPSULE PO SCH ×4 (06:33→20:14)
[2019-07-12] MEDS: PANTOPRAZOLE 40 MG (PROTONIX) TAB PO SCH (06:33)
[2019-07-12] MEDS: CATHETER FLUSH 10 ML SYR IV SCH ×3 (06:33→20:15)
[2019-07-12] MEDS: KCL 20 MEQ TAB (K-DUR) PO SCH (06:33)
[2019-07-12] MEDS: SILDENAFIL 20 MG (REVATIO) TAB NON-FORMULARY PO SCH ×3 (06:34→20:14)
[2019-07-12 06:44] VITALS: BP 137/70
[2019-07-12] MEDS: RT-ALBUTEROL/IPRATROPIUM 3 ML (DUONEB) VIAL INH SCH ×3 (07:56→23:55)
--- NOTE | 2019-07-12 08:14 | PM&R Progress Note ---
Subjective HPI/CC On Admission Date Seen by Provider: Jul 12, 2019 Time Seen by Provider: 08:30 CC: Critical illness debility HPI: This is a 68-year-old white male clinic patient of Dr. 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 Received report from Dr. Montesinos at [facility] in [place]. Patient was admitted there after difficulty weaning off the ventilator after he was intubated after failed noninvasive ventilator support after he was transferred from [facility] after his spinal surgery to [facility]. He remained on the ventilator for 3 weeks has some vocal cord dysfunction due to the long intubation status and most recently having urinary retention after Alves catheter was discontinued and currently has Klebsiella UTI maintained on Bactrim and Cipro double coverage because of such a significant organism. He had some significant hallucinations last week but that has been resolved. Patient currently remains on 2 L by nasal cannula of oxygen receives nebulizer treatments of DuoNeb every 6 hours and uses his home CPAP machine. His prior level of functioning was independent of ADLs and ambulation. I reviewed all of his current medications and electronics engineering technician here at the hospital has confirmed accuracy and all those have been continued. He does have a PICC line in his right upper arm. Upon review of the history and physical the following information was obtained: Past medical history: diabetes mellitus on oral therapy, obstructive sleep apnea, COPD with chronic respiratory failure, polycythemia due to chronic respiratory failure, tobacco use, chronic low back pain, peripheral neuropathy, PVD, CAD previous bypass surgery, thrombocytopenia, morbid obesity with hypoventilation syndrome, congestive heart failure with acute on chronic diastolic type with volume overload at admission to [facility], hyperlipidemia, hypertension, carpal tunnel syndrome, severe DJD of the right knee. He also has a history of SVT. Subjective/Events-last exam detention placement will be his disposition and they have accepted him tomorrow Maintained on oxygen last night and didn't even bother using the CPAP Had five BM yesterday Sugar was 286 last night and 178 this morning Really declining overall and may have plateaued Conferred with RN Reviewed therapy notes Appreciate Dr. Ahn Review of Systems Pulmonary: Dyspnea Musculoskeletal: back pain Objective Exam Vital Signs Vital Signs Date Time Temp Pulse Resp B/P (MAP) Pulse Ox O2 Delivery O2 Flow Rate FiO2 07/12/19 16:56 97.6 74 20 133/71 (91) 96 Nasal Cannula 5.00 Capillary Refill : Less Than 3 SecondsLess Than 3 Seconds General Appearance: No Apparent Distress, WD/WN, Chronically ill, Obese HEENT: PERRL/EOMI, Normal ENT Inspection, Pharynx Normal Neck: Full Range of Motion, Non Tender, Supple Respiratory: Chest Non Tender, Lungs Clear, Normal Breath Sounds, No Accessory Muscle Use, No Respiratory Distress Cardiovascular: Regular Rate, Rhythm (Bilateral lower leg edema) Gastrointestinal: Normal Bowel Sounds, Non Tender Back: Decreased Range of Motion Extremity: Pedal Edema Neurologic/Psychiatric: Alert, Oriented x3, No Motor/Sensory Deficits, Normal Mood/Affect, youth probation officer II-XII Norm as Tested Skin: Normal Color, Warm/Dry Lymphatic: No Adenopathy Results/Procedures Lab Patient resulted labs reviewed. FIM Transfers Therapy Code Descriptions/Definitions Functional [place] Measure: 0=Not Assessed/NA 4=Minimal Assistance 1=Total Assistance 5=Supervision or Setup 2=Maximal Assistance 6=Modified [place] 3=Moderate Assistance 7=Complete [place] Therapy Quality Codes: 6 Independent with activity with or without an assistive device 5 Patient requires set up or clean up by helper. Patient completes activity by themselves 4 Supervision or touching assist (CGA). [place] provide cues , steadying assist 3 The helper provides less than half the effort to complete the activity 2 The helper provides more than half the effort to complete the activity 1 Dependent. The helper does all the effort to complete an activity 7 Patient refused to complete or attempt activity 9 The patient did not perform the activity before the current illness or injury 88 Not attempted due to Medical conditions or safety concerns Transfers (B, C, W/C) (FIM): 2 Scootin Rollin Roll Left to Right (QC): 5 Supine to/from Sit: 2 Sit to/from Stand: 4 Sit to Lying (QC): 3 Sit to Stand (QC): 3 Chair/Ubi-xa-Wheda Xfer(QC): 4 (min assist to transfer wc to bed with skilled cues for technique, hand placement and sequencing. ) Bed to/from Chair: 4 Car Transfer (QC): 2 Gait Training Does the Patient Walk?: Yes Gait (FIM): 1 Distance (FIM): 9=173-04 ft Distance: 5' Walk 10 feet (QC): 4 Gait Level of Assist: 4 Gait Persons Needed: 1 Gait Assistive Device: FWW Wheelchair Training Does the Pt Use a Wheelchair?: Yes Wheelchair (FIM): 2 Wheelchair Distance: 9=693-93 ft Distance: 50' Wheelchair Level of Assist: 4 Wheel 50 ft with 2 turns (QC): 3 Wheel 150 ft (QC): 4 Type of Wheelchair: Manual Mental Status/Objective Comprehension: 7 Expression: 7 Social Interaction: 7 Problem Solvin Memory: 7 ADL-Treatment Feedin (Pt able to feed self without assist) Eating (QC): 6 Groomin Oral Hygiene (QC): 3 Bathin Bathing Location: L Arm, R Arm, Chest, Abdomen Shower/Bathe Self (QC): 3 Upper Extremity Dressin Upper Body Dressing (QC): 3 Lower Extremity Dressin Lower Body Dressing (QC): 2 On/Off Footwear (QC): 2 Toiletin (Pt. was incontinent of bowel while in bed. OT removed depend in bed, and placed bed betts per pt. request, as he had to go quickly. After toileting, OT cleansed brandyn area at bed level.) Toileting Hygiene (QC): 1 Toilet/Commode Transfer: 2 Toilet Transfer (QC): 2 Shower: 0 Assessment/Plan Assessment and Plan Assess & Plan/Chief Complaint Assessment: (1) Myopathy (2) COPD (chronic obstructive pulmonary disease) (3) Respiratory failure, acute and chronic (4) Polycythemia (5) Tobacco use (6) Back pain (7) Neuropathy (8) PVD (peripheral vascular disease) (9) Hx of CABG (10) Obesity hypoventilation syndrome (11) Hypertension (12) Renal insufficiency (13) Hyperlipemia (14) Arthritis of right knee (15) Hx of supraventricular tachycardia (16) Obesity (17) Diabetes mellitus (18) SIDNEY on CPAP (19) CO2 narcosis (20) CAD (coronary artery disease) (21) Status post lumbar spine surgery for decompression of spinal cord (22) UTI Klebsiella s/p Bactrim and Cipro then DC when added Jorge and Vanc due to wound (23) Anxiety (24) Wound dehiscence requiring bedside debridement and placement of wound vac by Dr Carrasco 06/19/19 (25) Diarrhea w/mild dehydration now resolving (26) edema (27) Left leg radiculopathy severe and chronic Plan: Continue monitoring labs (CBC w/diff, CMP) prn Continue to closely monitor due to recent surgery IRF protocol Pain control High risk for C diff for any abx in future IS use along with Nebs Continue progress of PT with ambulation Encourage use of CPAP but refuses most of the time Continue to try and encourage VARUN wrap usage even though he is refusing Pay close attention after surgery due to patients history of intubation after surgical procedures Monitor I/O Continue to monitor glucose control Evaluate patients left foot if pain worsens continue wound care Monitor patient for bowel movements (has not gone since surgery) give extra meds Consult doctors are appreciated Continue to monitor vitals. Monitoring closely due to respiratory issue. Consult pulmonary for patients breathing Prognosis guarded given his severe debility and severe lung disease Barriers that he needs addressed before he gets home include: 1. Patient has 2 steps at home and this does not have railings 2. Patient drives but will need assistance in and out and a consult to see if he is even capable of driving still 3. Patient really likes the walker and feels he would really benefit from one if he had one for himself. 4. Patient does not have someone who checks in on him. Would be good to organize family or friends to check in on him. 5. Does patient need at home oxygen (pulmonary consult to evaluate patients ability to be home and not on oxygen). 6. Patient needs an evaluation of his home to make sure he has items that pose a fall risk removed or placed somewhere сергей. 7. Patient needs an at home evaluation of his bathroom to make sure it is adequate for him to function. Areas of living that already have assistance include: 1. currently does not have items that he may need to meet his needs at home. Areas that still need to be discussed: 1. Patient being able to manage drug regimen without at home help (1) Myopathy (2) COPD (chronic obstructive pulmonary disease) (3) Polycythemia (4) Diabetes mellitus (5) Back pain (6) CAD (coronary artery disease) (7) Hyperlipemia (8) Neuropathy (9) Renal insufficiency (10) PVD (peripheral vascular disease) (11) Hypertension (12) Obesity (13) Respiratory failure, acute and chronic (14) Arthritis of right knee (15) Obesity hypoventilation syndrome (16) CO2 narcosis (17) SIDNEY on CPAP (18) Hx of supraventricular tachycardia (19) Decubitus ulcer (20) Urinary retention (21) BPH (benign prostatic hyperplasia) (22) UTI due to Klebsiella species (23) Hyperkalemia (24) Renal failure (25) CO2 retention (26) Postoperative wound dehiscence (27) Elevated brain natriuretic peptide (BNP) level (28) Clot retention of urine (29) Wound drainage (30) Hx of CABG (31) Status post lumbar spine surgery for decompression of spinal cord (32) Tobacco use Assessment and plan reviewed Patient with significant resp issues that may improve or if worsens will need ICU transfer but improved Monitor closely Appreciate DR Ahn (1) Respiratory failure, acute and chronic (2) COPD (chronic obstructive pulmonary disease) (3) Polycythemia (4) Diabetes mellitus Status: Chronic (5) Back pain (6) CAD (coronary artery disease) Status: Chronic (7) Hyperlipemia (8) Myopathy (9) Neuropathy (10) Renal insufficiency (11) PVD (peripheral vascular disease) (12) Hypertension (13) Obesity Status: Chronic (14) Arthritis of right knee (15) Obesity hypoventilation syndrome (16) CO2 narcosis Status: Acute (17) SIDNEY on CPAP Status: Chronic (18) Hx of supraventricular tachycardia (19) Decubitus ulcer (20) Urinary retention (21) BPH (benign prostatic hyperplasia) (22) UTI due to Klebsiella species (23) Hyperkalemia Status: Acute (24) Renal failure Status: Acute (25) CO2 retention (26) Postoperative wound dehiscence (27) Elevated brain natriuretic peptide (BNP) level Status: Acute (28) Clot retention of urine Status: Acute (29) Wound drainage (30) Hx of CABG (31) Status post lumbar spine surgery for decompression of spinal cord Status: Acute (32) Tobacco use JASPER LONG DO Jul 12, 2019 08:14
--- NOTE | 2019-07-12 09:58 | Physical Therapy Daily Note ---
PT Daily Note-Current Subjective Patient in bed pre tx, agrees to PT, has no complaints of pain. Appearance Patient in chair at bedside post tx with nurse call, phone, tray, all needs met. Mental Status Patient Orientation: Person, Place, Situation Attachments: Oxygen, Alves Catheter Transfers Therapy Code Descriptions/Definitions Functional [place] Measure: 0=Not Assessed/NA 4=Minimal Assistance 1=Total Assistance 5=Supervision or Setup 2=Maximal Assistance 6=Modified [place] 3=Moderate Assistance 7=Complete [place] Therapy Quality Codes: 6 Independent with activity with or without an assistive device 5 Patient requires set up or clean up by helper. Patient completes activity by themselves 4 Supervision or touching assist (CGA). [place] provide cues , steadying assist 3 The helper provides less than half the effort to complete the activity 2 The helper provides more than half the effort to complete the activity 1 Dependent. The helper does all the effort to complete an activity 7 Patient refused to complete or attempt activity 9 The patient did not perform the activity before the current illness or inj ury 88 Not attempted due to Medical conditions or safety concerns Transfers (B, C, W/C) (FIM): 3 Scootin Rollin Supine to/from Sit: 3 Sit to/from Stand: 3 Bed to/from Chair: 4 Mod assist to stand from lower surfaces, can stand with min assist from a higher chair. Gait Training Gait (FIM): 2 Distance: 60'x4 Gait Level of Assist: 4 Gait Persons Needed: 1 Gait Assistive Device: FWW WC follow because patient fatigues quickly and needs to sit, SOB, slow, wide ANIBAL Exercises Seated Therapy Exercises: Ankle pumps, Hip flexion Seated Reps: 20 Standing: Hip Abduction (just LLE), Heel/toe raises, Marching (just LLE), Mini squats Standing Reps: 15 LAQ alternating for 5 min Treatments bed mobility and transfers, ambulation, LE exercise Assessment Current Status: Fair Progress improved ambulation PT Short Term Goals Short Term Goals Time Frame: Jun 25, 2019 Transfers (B,C,W/C) (FIM): 3 (met) Gait (FIM): 1 Gait Distance Comment: 5' Gait Level of Assist: 3 Gait Assistive Device: FWW Wheelchair Distance: 50' PT News Broadcaster Goals News Broadcaster Goals PT News Broadcaster Goals Time Frame: Jul 09, 2019 Transfers (B,C,W/C) (FIM): 4 Sit to Lying (QC): 4 Lying-Sitting on Side/Bed(QC): 4 Sit to Stand (QC): 3 Rollin Roll Left to Right (QC): 4 Chair/[id number]-Soblb Xfer(QC): 3 Car Transfer (QC): 3 Gait (FIM): 1 Distance: 20' Walk 10 feet (QC): 3 Walk 10ft-Uneven Surface(QC): 3 Gait Level of Assist: 4 Gait Assistive Device: FWW Wheelchair (FIM): 6 Distance: 150' Wheelchair Level of Assist: 5 Wheel 50 feet with 2 turns (QC: 4 PT Plan Problem List Problem List: Activity Tolerance, Functional Strength, Safety, Balance, Gait, Transfer, Bed Mobility, ROM Treatment/Plan Treatment Plan: Continue Plan of Care Treatment Plan: Bed Mobility, Concurrent Therapy, Education, Functional Activity Leo, Functional Strength, Group Therapy, Gait, Safety, Therapeutic Exercise, Transfers Treatment Duration: Jul 09, 2019 Frequency: At least 5 of 7 days/Wk (IRF) Estimated Hrs Per Day: 1.5 hours per day Patient and/or Family Agrees t: Yes Safety Risks/Education Patient Education: Gait Training, Transfer Techniques, Correct Positioning, Safety Issues Teaching Recipient: Patient Teaching Methods: Demonstration, Discussion Response to Teaching: Reinforcement Needed Time/GCodes Time In: 0900 Time Out: 1000 Total Billed Treatment Time: 60 Total Billed Treatment 1 visit GT 30' EX 30' BRIDGETTE CAT PT Jul 12, 2019 09:58
[2019-07-12] MEDS: meTOprolol TARTRATE 25 MG (LOPRESSOR) TABLET PO SCH ×2 (09:59→20:15)
[2019-07-12] MEDS: THEOPHYLLINE ER 400 MG TAB (THEO-24) PO SCH (09:59)
[2019-07-12] MEDS: FUROSEMIDE 40 MG (LASIX) TAB PO SCH (10:00)
[2019-07-12] MEDS: ENOXAPARIN 40 MG/0.4 ML (LOVENOX) SYR SC SCH ×2 (10:00→20:14)
[2019-07-12] MEDS: GABAPENTIN 300 MG (NEURONTIN) CAP PO SCH (10:00)
[2019-07-12] MEDS: DICLOFENAC 1% GEL 100 GM (VOLTAREN) TUBE TOP SCH ×4 (10:20→20:15)
[2019-07-12] MEDS: TAMSULOSIN 0.4 MG (FLOMAX) CAP PO SCH (10:20)
--- NOTE | 2019-07-12 10:20 | NUR ---
Pastoral care visit.
--- NOTE | 2019-07-12 10:25 | NUR ---
Pt declined offer of pain med, although rated pain at 4. Instr that if he changes his mind, to let me kmow.
--- NOTE | 2019-07-12 11:49 | Occupational Ther Daily Note ---
OT Current Status-Daily Note Subjective Pt alert, sitting in w/c. Pt agrees to therapy. No c/o pain. Mental Status/Objective Patient Orientation: Person, Place, Time, Situation Therapy Code Descriptions/Definitions Functional [place] Measure: 0=Not Assessed/NA 4=Minimal Assistance 1=Total Assistance 5=Supervision or Setup 2=Maximal Assistance 6=Modified [place] 3=Moderate Assistance 7=Complete [place] Attachments: IV (midline), Oxygen (5L) ADL-Treatment Pt agrees to sponge bath. After set up, pt able to complete upper body bathing and dressing. Pt able to stand with CGA and complete brandyn care, assist with buttocks. Pt required assist to don/doff lower body clothing. Pt able to doff socks by self and use sock aide to don socks. Pt takes increased time to complete all tasks due to decreased activity tolerance and multiple recovery breaks. Pt completed grooming sitting in chair. Pt has progressed with sit to stand with CGA using FWW. After therapy, pt lying in bed with call light/phone in reach. All needs met in room. Therapy Code Descriptions/Definitions Functional [place] Measure: 0=Not Assessed/NA 4=Minimal Assistance 1=Total Assistance 5=Supervision or Setup 2=Maximal Assistance 6=Modified [place] 3=Moderate Assistance 7=Complete [place] Therapy Quality Codes: 6 Independent with activity with or without an assistive device 5 Patient requires set up or clean up by helper. Patient completes activity by themselves 4 Supervision or touching assist (CGA). [place] provide cues , steadying assist 3 The helper provides less than half the effort to complete the activity 2 The helper provides more than half the effort to complete the activity 1 Dependent. The helper does all the effort to complete an activity 7 Patient refused to complete or attempt activity 9 The patient did not perform the activity before the current illness or injury 88 Not attempted due to Medical conditions or safety concerns Grooming (FIM): 6 Oral Hygiene (QC): 6 Bathing (FIM): 3 Bathing Location: L Arm, R Arm, L Upper Leg, R Upper Leg, Chest, Abdomen, Perineal Area Shower/Bathe Self (QC): 3 Upper Body (FIM): 5 Upper Body Dressing (QC): 5 Lower Body Dressing (FIM): 2 Lower Body Dressing (QC): 2 On/Off Footwear (QC): 4 OT Short Term Goals Short Term Goals Time Frame: Jun 25, 2019 Grooming(FIM): 5 Bathing(FIM): 3 Lower Body Dressing(FIM): 3 Toileting(FIM): 3 Transfers (B,C,W/C) (FIM): 3 (met) Toilet/Commode Transfer(FIM): 3 Additional Short Term Goals: 1-Demonstrate ADL Tasks, 2-Verbalize Understanding, 3-ImproveStrength/Leo 1=Demonstrate adherence to instructed precautions during ADL tasks. 2=Patient will verbalize/demonstrate understanding of assistive devices/modifications for ADL. 3=Patient will improve strength/tolerance for activity to enable patient to perform ADL's. OT Senior Care Goals Senior Care Goals Time Frame: Jul 09, 2019 Eating (FIM): 6 Eating (QC): 6 Groomin Oral Hygiene (QC): 6 Bathing(FIM): 5 Shower/Bathe Self (QC): 5 Upper Body Dressing(FIM): 6 Upper Body Dressing (QC): 6 Lower Body Dressing(FIM): 6 Lower Body Dressing (QC): 5 On/Off Footwear (QC): 5 Toileting(FIM): 6 Toileting Hygiene (QC): 6 Toilet/Commode Transfer(FIM): 6 Toilet/Commode Transfer (QC): 6 Shower Transfer(FIM): 5 Comprehension(FIM): 7 Expression (FIM): 7 Social Interaction(FIM): 7 Problem Solving(FIM): 7 Memory(FIM): 7 Additional Goals: 1-Demonstrate ADL Tasks, 2-Verbalize Understanding, 3-Impr oveStrength/Leo 1=Demonstrate adherence to instructed precautions during ADL tasks. 2=Patient will verbalize/demonstrate understanding of assistive devices/modifications for ADL. 3=Patient will improve strength/tolerance for activity to enable patient to perform ADL's. OT Education/Plan Problem List/Assessment Assessment: Decreased Activ Tolerance, Decreased UE Strength, Impaired Self- Care Skills, Restricted Funct UE ROM Discharge Recommendations Plan/Recommendations: Continue POC Treatment Plan/Plan of Care Patient would benefit from OT for education, treatment and training to promote independence in ADL's, mobility, safety and/or upper extremity function for ADL's. Plan of Care: ADL Retraining, Functional Mobility, Group Exercise/Act as Ind, UE Funct Exercise/Act Treatment Duration: Jul 09, 2019 Frequency: At least 5 of 7 days/Wk (IRF) Estimated Hrs Per Day: 1.5 hours per day Agreement: Yes Rehab Potential: Fair Time/GCodes Start Time: 10:00 Stop Time: 11:00 Total Time Billed (hr/min): 60 Billed Treatment Time 1 visit-ADL 4 (60 min) AMANDA WEINER Jul 12, 2019 11:49
[2019-07-12] MEDS: ROFLUMILAST 500 MCG TAB (DALIRESP) PO SCH (15:01)
--- NOTE | 2019-07-12 15:26 | Therapy Group Daily Note ---
Therapy Daily Group Note Patient Education Topic Other List Below (bed mobility and car transfer techniques) Exercises LE Seated Exercise, UE Exercise Session Ratio (pt:therapist): 4:1 Goal of Session: Safety with Transfers Safety and bed mobility and car transfers. Goal Met for this Session: Yes Pt Benefit of Group: Contributions to Others, Increased Functional Strength, Socialization Other/Notes Pt assisted with transfer out of bed and came to group via wc. Group consisted of introductions (name, place living, hottest day memory), socialization, seated UE/LE exercises, bed transfers/mobility, car transfers and description of ARU. Pt introduced self appropriately and actively listened to peers. Pt rolled dice for amount of reps needed for seated exercises that are led by pt. Pt verbalized understanding of educational topics by own personal stories and strategies. After therapy, pt in bed with call light/phone in reach. All needs met in room. Start Time: 13:00 Stop Time: 14:05 Total Billed Treatment Time: 65 Total Billed Treatment visit GRP 65 AMANDA NAILS PT Jul 12, 2019 15:26
[2019-07-12 16:56] VITALS: BP 133/71
[2019-07-12] MEDS: GABAPENTIN 600 MG (NEURONTIN) TAB PO SCH (20:15)
[2019-07-12] MEDS: QUEtiapine 25 MG (SEROquel) TAB IMMEDIATE RELEASE PO SCH (20:15)
[2019-07-12] MEDS: ALPRAZolam 0.25 MG (XANAX) TAB PO PRN (21:39)
[2019-07-13] MEDS: oxyCODONE/APAP 5/325MG (PERCOCET 5) TABLET PO PRN ×2 (00:03→12:20)
[2019-07-13 05:09] VITALS: BP 132/64
[2019-07-13] MEDS: inSUlin ASPART (NovoLOG) 1 UNIT/0.01 ML (CHARGE PER UNIT) SC SCH ×2 (05:28→11:28)
[2019-07-13] MEDS: LACTOBACILLUS ACIDOPHILUS (PROBIOTIC) CAPSULE PO SCH ×2 (06:37→11:27)
[2019-07-13] MEDS: KCL 20 MEQ TAB (K-DUR) PO SCH (06:37)
[2019-07-13] MEDS: CATHETER FLUSH 10 ML SYR IV SCH (06:37)
[2019-07-13] MEDS: amLODIPine 10 MG (NORVASC) TAB PO SCH (06:37)
[2019-07-13] MEDS: SILDENAFIL 20 MG (REVATIO) TAB NON-FORMULARY PO SCH (06:37)
[2019-07-13] MEDS: PANTOPRAZOLE 40 MG (PROTONIX) TAB PO SCH (06:38)
[2019-07-13] MEDS: MULTIVIT W/MINERALS TAB (THERAGRAN M) PO SCH (06:38)
[2019-07-13 08:01] VITALS: BP 129/62
[2019-07-13] MEDS: FUROSEMIDE 40 MG (LASIX) TAB PO SCH (08:02)
[2019-07-13] MEDS: meTOprolol TARTRATE 25 MG (LOPRESSOR) TABLET PO SCH (08:02)
[2019-07-13] MEDS: ENOXAPARIN 40 MG/0.4 ML (LOVENOX) SYR SC SCH (08:02)
[2019-07-13] MEDS: TAMSULOSIN 0.4 MG (FLOMAX) CAP PO SCH (08:02)
[2019-07-13] MEDS: GABAPENTIN 300 MG (NEURONTIN) CAP PO SCH (08:02)
[2019-07-13] MEDS: DICLOFENAC 1% GEL 100 GM (VOLTAREN) TUBE TOP SCH ×2 (08:03→13:03)
[2019-07-13] MEDS: THEOPHYLLINE ER 400 MG TAB (THEO-24) PO SCH (08:03)
[2019-07-13] MEDS ORDERED: DICL100G18 TOP (08:25)
[2019-07-13] MEDS ORDERED: SILD20TA14 PO (08:25)
[2019-07-13] MEDS ORDERED: ALPR0.254 PO (08:25)
[2019-07-13] MEDS ORDERED: METO-333 PO (08:25)
[2019-07-13] MEDS ORDERED: PANT40TA3 PO (08:25)
[2019-07-13] MEDS ORDERED: THEO400T PO (08:25)
[2019-07-13] MEDS ORDERED: POTA20TA8 PO (08:25)
[2019-07-13] MEDS ORDERED: LACT1CAP7 PO (08:25)
[2019-07-13] MEDS ORDERED: ROFL500T PO (08:25)
[2019-07-13] MEDS ORDERED: ENOX40DI8 SC (08:25)
[2019-07-13] MEDS ORDERED: IPRA3AMP31 INH (08:25)
[2019-07-13] MEDS ORDERED: QUET25TA73 PO (08:25)
[2019-07-13] MEDS ORDERED: TAMS0.4C98 PO (08:25)
[2019-07-13] MEDS ORDERED: POLY17PO31 PO (08:25)
[2019-07-13] MEDS ORDERED: AMLO10TA7 PO (08:25)
[2019-07-13] MEDS ORDERED: FURO40TA4 PO (08:25)
[2019-07-13] MEDS ORDERED: OXYC1TAB87 PO (08:25)
--- NOTE | 2019-07-13 08:28 | Discharge Inst-Skilled Nursing ---
Discharge Inst-Skilled NF Reconcile Patient Problems Problems Reviewed?: Yes Patient Instructions Patient Problems: Chronic respiratory insufficiency Spinal surgery Severe chronic pain Goal: Return to independent living Consult/Follow Up/Orders Follow Up Appt.: Dr Moreno PCP in [address] Anabelle Nayak Skilled NF Admit to: [facility] Certification (SNF) I certify that SNF services are required to be given on an inpatient basis because of the above named patient's need for group home care on a continuing basis for the conditions(s) for which he/she was receiving inpatient hospital services prior to his/her transfer to the SNF. Nursing Home Facility Order: Nursing Services, [facility] Dro[facility]-Evaluate & Treat, Physical Therapy-Evaluate & Treat Oxygen Delivery Method: Nasal Cannula New & Resume Previous Orders Cintia Law Jul 13, 2019 08:26 Pneu Vac Indicated: Yes CINTIA LAW DO Jul 13, 2019 08:28
--- NOTE | 2019-07-13 08:30 | Discharge Summary ---
Diagnosis/Chief Complaint Date of Admission Jun 18, 2019 at 12:20 Date of Discharge Discharge Date: Jul 13, 2019 Discharge Diagnosis 1) Respiratory failure, acute and chronic (2) COPD (chronic obstructive pulmonary disease) (3) Polycythemia (4) Diabetes mellitus Status: Chronic (5) Back pain (6) CAD (coronary artery disease) Status: Chronic (7) Hyperlipemia (8) Myopathy (9) Neuropathy (10) Renal insufficiency (11) PVD (peripheral vascular disease) (12) Hypertension (13) Obesity Status: Chronic (14) Arthritis of right knee (15) Obesity hypoventilation syndrome (16) CO2 narcosis Status: Acute (17) SIDNEY on CPAP Status: Chronic (18) Hx of supraventricular tachycardia (19) Decubitus ulcer (20) Urinary retention (21) BPH (benign prostatic hyperplasia) (22) UTI due to Klebsiella species (23) Hyperkalemia Status: Acute (24) Renal failure Status: Acute (25) CO2 retention (26) Postoperative wound dehiscence (27) Elevated brain natriuretic peptide (BNP) level Status: Acute (28) Clot retention of urine Status: Acute (29) Wound drainage (30) Hx of CABG (31) Status post lumbar spine surgery for decompression of spinal cord Status: Acute (32) Tobacco use Discharge Summary Discharge Physical Examination Allergies: Coded Allergies: No Known Drug Allergies (Verified , 05/17/19) Vitals & I&Os Vital Signs Date Time Temp Pulse Resp B/P (MAP) Pulse Ox O2 Delivery O2 Flow Rate FiO2 07/13/19 13:08 73 18 134/62 98 Nasal Cannula 5.00 07/13/19 12:38 98.0 General Appearance: Alert, Oriented X3, Cooperative Respiratory: Clear to Auscultation, Normal Air Movement Cardiovascular: Regular Rate, Normal S1, Normal S2 Psych/Mental Status: Mental Status NL, Mood NL Hospital Course Was the Problem List Reviewed?: Yes Hospital course: Pt had a lengthy hospital course for 26 days in inpatient rehab after transferred from [facility] after a long intubation period. Dr. Ahn was consulted which resulted in close monitoring due to acute on chronic respiratory failure which he was supported entirely on oxygen and nebulizer treatments remained on 5 liters of oxygen for the last week of his hospital course after spinal wound required modification by Dr. Carrasco. After IV antibiotics broad spectrum along with wound-vac failed to close the wound. Blood sugars remain stable, polo catheter was maintained since he was unable to regain function of urination, managed by Dr. Nayak. Overall he improved in inpatient rehab but still required a great deal of help in order to function and be supportive of his ADLs and ambulation so he was sent to [facility] under Dr. Moreno's service and will remain with a picc line for two weeks in case he has any acute issues making vascular access easier and BiPAP and CPAP will be encouraged but he really refuses that most of the time. Percocet and Xanax were all written for on discharge med list and Pt will be monitored closely and undergo PT and OT [facility] and will be closely monitored but prognosis remains guarded. Labs (last 24 hrs) Laboratory Tests 06/18/19 13:15: Glucometer 203H 06/18/19 15:45: Glucometer 228H 06/18/19 16:42: White Blood Count 8.1, Red Blood Count 3.21L, Hemoglobin 9.2L, Hematocrit 30L, Mean Corpuscular Volume 92, Mean Corpuscular Hemoglobin 29, Mean Corpuscular Hemoglobin Concent 31L, Red Cell Distribution Width 17.0H, Platelet Count 200, Mean Platelet Volume 11.0H, Neutrophils (%) (Auto) 74, Lymphocytes (%) (Auto) 12, Monocytes (%) (Auto) 12, Eosinophils (%) (Auto) 1, Basophils (%) (Auto) 0, Neutrophils # (Auto) 6.0, Lymphocytes # (Auto) 0.9L, Monocytes # (Auto) 1.0, Eosinophils # (Auto) 0.1, Basophils # (Auto) 0.0, Sodium Level 131L, Potassium Level 4.5, Chloride Level 96L, Carbon Dioxide Level 27, Anion Gap 8, Blood Urea Nitrogen 27H, Creatinine 1.37H, Estimat Glomerular Filtration Rate 52, BUN/Creatinine Ratio 20, Glucose Level 214H, Lactic Acid Level 1.06, Calcium Level 9.1, Corrected Calcium 9.7, Phosphorus Level 1.9L, Magnesium Level 1.1L, Total Bilirubin 0.3, Aspartate Amino Transf (AST/SGOT) 38H, Alanine Aminotransferase (ALT/SGPT) 19, Alkaline Phosphatase 109, Total Protein 7.1, Albumin 3.3 06/18/19 20:49: Glucometer 201H 06/19/19 05:34: Glucometer 206H 06/19/19 06:35: White Blood Count 6.6, Red Blood Count 3.01L, Hemoglobin 8.5L, Hematocrit 28L, Mean Corpuscular Volume 92, Mean Corpuscular Hemoglobin 28, Mean Corpuscular Hemoglobin Concent 31L, Red Cell Distribution Width 16.7H, Platelet Count 198, Mean Platelet Volume 10.8H, Neutrophils (%) (Auto) 71, Lymphocytes (%) (Auto) 16, Monocytes (%) (Auto) 11, Eosinophils (%) (Auto) 2, Basophils (%) (Auto) 1, Neutrophils # (Auto) 4.7, Lymphocytes # (Auto) 1.1, Monocytes # (Auto) 0.7, Eosinophils # (Auto) 0.2, Basophils # (Auto) 0.0, Sodium Level 136, Potassium Level 4.0, Chloride Level 98, Carbon Dioxide Level 26, Anion Gap 12, Blood Urea Nitrogen 25H, Creatinine 1.36H, Estimat Glomerular Filtration Rate 52, BUN/Creatinine Ratio 18, Glucose Level 182H, Calcium Level 8.9, Corrected Calcium 9.5, Phosphorus Level 4.2, Magnesium Level 1.8, Total Bilirubin 0.3, Aspartate Amino Transf (AST/SGOT) 33, Alanine Aminotransferase (ALT/SGPT) 18, Alkaline Phosphatase 114, Total Protein 6.7, Albumin 3.2 06/19/19 11:26: Glucometer 177H 06/19/19 15:29: Glucometer 217H 06/19/19 20:48: Glucometer 234H 06/20/19 05:55: Glucometer 193H 06/20/19 06:35: White Blood Count 6.1, Red Blood Count 3.07L, Hemoglobin 8.7L, Hematocrit 28L, Mean Corpuscular Volume 92, Mean Corpuscular Hemoglobin 28, Mean Corpuscular Hemoglobin Concent 31L, Red Cell Distribution Width 16.8H, Platelet Count 224, Mean Platelet Volume 10.7H, Neutrophils (%) (Auto) 67, Lymphocytes (%) (Auto) 20, Monocytes (%) (Auto) 9, Eosinophils (%) (Auto) 3, Basophils (%) (Auto) 1, Neutrophils # (Auto) 4.1, Lymphocytes # (Auto) 1.2, Monocytes # (Auto) 0.6, Eosinophils # (Auto) 0.2, Basophils # (Auto) 0.0, Sodium Level 135, Potassium Level 4.2, Chloride Level 100, Carbon Dioxide Level 25, Anion Gap 10, Blood Urea Nitrogen 22H, Creatinine 1.35H, Estimat Glomerular Filtration Rate 53, BUN/Creatinine Ratio 16, Glucose Level 180H, Calcium Level 9.0, Corrected Calcium 9.6, Total Bilirubin 0.3, Aspartate Amino Transf (AST/SGOT) 28, Alanine Aminotransferase (ALT/SGPT) 16, Alkaline Phosphatase 101, Total Protein 6.9, Albumin 3.2 06/20/19 11:36: Glucometer 189H 06/20/19 16:44: Glucometer 208H 06/20/19 20:59: Glucometer 190H 06/21/19 00:30: Vancomycin Level Trough 23.4H 06/21/19 05:30: Glucometer 172H 06/21/19 07:26: White Blood Count 5.7, Red Blood Count 2.93L, Hemoglobin 8.2L, Hematocrit 27L, Mean Corpuscular Volume 92, Mean Corpuscular Hemoglobin 28, Mean Corpuscular Hemoglobin Concent 31L, Red Cell Distribution Width 16.8H, Platelet Count 247, Mean Platelet Volume 10.3, Neutrophils (%) (Auto) 62, Lymphocytes (%) (Auto) 20, Monocytes (%) (Auto) 12, Eosinophils (%) (Auto) 5, Basophils (%) (Auto) 1, Neutrophils # (Auto) 3.6, Lymphocytes # (Auto) 1.1, Monocytes # (Auto) 0.7, Eos inophils # (Auto) 0.3, Basophils # (Auto) 0.1, Sodium Level 136, Potassium Level 3.9, Chloride Level 100, Carbon Dioxide Level 25, Anion Gap 11, Blood Urea Nitrogen 26H, Creatinine 1.34H, Estimat Glomerular Filtration Rate 53, BUN/Creatinine Ratio 19, Glucose Level 166H, Calcium Level 8.9, Corrected Calcium 9.6, Total Bilirubin 0.3, Aspartate Amino Transf (AST/SGOT) 25, Alanine Aminotransferase (ALT/SGPT) 16, Alkaline Phosphatase 111, Total Protein 6.4, Albumin 3.1L 06/21/19 10:51: Glucometer 230H 06/21/19 12:45: Vancomycin Level Trough 18.3 06/21/19 15:21: Glucometer 205H 06/21/19 20:36: Glucometer 182H 06/22/19 05:45: Glucometer 168H 06/22/19 10:53: Glucometer 241H 06/22/19 15:15: Glucometer 182H 06/22/19 20:31: Glucometer 212H 06/23/19 05:50: White Blood Count 5.7, Red Blood Count 2.92L, Hemoglobin 8.0L, Hematocrit 27L, Mean Corpuscular Volume 92, Mean Corpuscular Hemoglobin 27, Mean Corpuscular Hemoglobin Concent 30L, Red Cell Distribution Width 17.0H, Platelet Count 272, Mean Platelet Volume 9.6, Neutrophils (%) (Auto) 57, Lymphocytes (%) (Auto) 26, Monocytes (%) (Auto) 11, Eosinophils (%) (Auto) 5, Basophils (%) (Auto) 1, Neutrophils # (Auto) 3.2, Lymphocytes # (Auto) 1.5, Monocytes # (Auto) 0.7, Eosinophils # (Auto) 0.3, Basophils # (Auto) 0.0, Sodium Level 136, Potassium Level 4.7, Chloride Level 105, Carbon Dioxide Level 22, Anion Gap 9, Blood Urea Nitrogen 21H, Creatinine 1.11, Estimat Glomerular Filtration Rate > 60, BUN/Creatinine Ratio 19, Glucose Level 160H, Calcium Level 8.9, Corrected Calcium 9.7, Total Bilirubin 0.2, Aspartate Amino Transf (AST/SGOT) 32, Alanine Aminotransferase (ALT/SGPT) 16, Alkaline Phosphatase 106, Total Protein 6.3L, Albumin 3.0L 06/23/19 05:52: Glucometer 164H 06/23/19 11:02: Glucometer 200H 06/23/19 15:34: Glucometer 203H 06/23/19 20:44: Glucometer 178H 06/24/19 05:22: Glucometer 182H 06/24/19 11:04: Glucometer 216H 06/24/19 15:46: Glucometer 148H 06/24/19 20:30: Glucometer 188H 06/25/19 05:33: Glucometer 160H 06/25/19 11:17: Glucometer 182H 06/25/19 16:31: Glucometer 178H 06/25/19 20:13: Glucometer 211H 06/26/19 05:49: Glucometer 152H 06/26/19 11:07: Glucometer 209H 06/26/19 15:34: Glucometer 160H 06/26/19 20:40: Glucometer 176H 06/27/19 05:09: Glucometer 175H 06/27/19 11:34: Glucometer 270H 06/27/19 11:51: White Blood Count 6.2, Red Blood Count 2.98L, Hemoglobin 8.1L, Hematocrit 27L, Mean Corpuscular Volume 92, Mean Corpuscular Hemoglobin 27, Mean Corpuscular Hemoglobin Concent 30L, Red Cell Distribution Width 17.2H, Platelet Count 312, Mean Platelet Volume 10.0, Neutrophils (%) (Auto) 68, Lymphocytes (%) (Auto) 19, Monocytes (%) (Auto) 9, Eosinophils (%) (Auto) 4, Basophils (%) (Auto) 1, Neutrophils # (Auto) 4.2, Lymphocytes # (Auto) 1.2, Monocytes # (Auto) 0.6, Eosinophils # (Auto) 0.2, Basophils # (Auto) 0.0, Sodium Level 137, Potassium Level 4.7, Chloride Level 102, Carbon Dioxide Level 22, Anion Gap 13, Blood Urea Nitrogen 18, Creatinine 0.99, Estimat Glomerular Filtration Rate > 60, BUN/Creatinine Ratio 18, Glucose Level 217H, Calcium Level 9.2, Corrected Giorgio cium 9.8, Phosphorus Level 2.4, Magnesium Level 1.4L, Total Bilirubin 0.3, Aspartate Amino Transf (AST/SGOT) 39H, Alanine Aminotransferase (ALT/SGPT) 24, Alkaline Phosphatase 140H, Total Protein 6.9, Albumin 3.2 06/27/19 15:43: Glucometer 183H 06/27/19 20:49: Glucometer 206H 06/28/19 04:54: Glucometer 188H 06/28/19 10:48: Glucometer 203H 06/28/19 16:14: Glucometer 165H 06/28/19 21:18: Glucometer 223H 06/29/19 05:18: Glucometer 180H 06/29/19 10:54: Glucometer 170H 06/29/19 17:14: Glucometer 284H 06/29/19 20:34: Glucometer 165H 06/30/19 05:39: Glucometer 191H 06/30/19 05:50: White Blood Count 6.0, Red Blood Count 2.76L, Hemoglobin 7.6L, Hematocrit 25L, Mean Corpuscular Volume 92, Mean Corpuscular Hemoglobin 28, Mean Corpuscular Hemoglobin Concent 30L, Red Cell Distribution Width 17.2H, Platelet Count 273, Mean Platelet Volume 9.8, Neutrophils (%) (Auto) 61, Lymphocytes (%) (Auto) 25, Monocytes (%) (Auto) 11, Eosinophils (%) (Auto) 3, Basophils (%) (Auto) 1, Neut rophils # (Auto) 3.7, Lymphocytes # (Auto) 1.5, Monocytes # (Auto) 0.6, Eosinophils # (Auto) 0.2, Basophils # (Auto) 0.0, Sodium Level 139, Potassium Level 4.3, Chloride Level 101, Carbon Dioxide Level 27, Anion Gap 11, Blood Urea Nitrogen 23H, Creatinine 1.00, Estimat Glomerular Filtration Rate > 60, BUN/Creatinine Ratio 23, Glucose Level 155H, Calcium Level 9.3, Corrected Calcium 10.0, Total Bilirubin 0.2, Aspartate Amino Transf (AST/SGOT) 35H, Alanine Aminotransferase (ALT/SGPT) 23, Alkaline Phosphatase 131, Total Protein 6.6, Albumin 3.1L 06/30/19 11:13: Glucometer 188H 06/30/19 16:02: Glucometer 209H 06/30/19 21:03: Glucometer 260H 07/01/19 05:21: Glucometer 160H 07/01/19 11:02: Glucometer 221H 07/01/19 15:50: Glucometer 256H 07/01/19 20:42: Glucometer 261H 07/02/19 05:13: Glucometer 203H 07/02/19 11:04: Glucometer 203H 07/02/19 15:33: Glucometer 257H 07/02/19 20:43: Glucometer 299H 07/03/19 05:41: Glucometer 189H 07/03/19 11:36: Glucometer 229H 07/03/19 16:01: Glucometer 272H 07/03/19 21:38: Glucometer 265H 07/04/19 05:51: Glucometer 149H 07/04/19 10:56: Glucometer 67L 07/04/19 11:08: Glucometer 256H 07/04/19 16:12: Glucometer 309H 07/04/19 20:17: Glucometer 368H 07/05/19 05:03: White Blood Count 6.5, Red Blood Count 2.93L, Hemoglobin 7.9L, Hematocrit 27L, Mean Corpuscular Volume 92, Mean Corpuscular Hemoglobin 27, Mean Corpuscular Hemoglobin Concent 29L, Red Cell Distribution Width 17.6H, Platelet Count 262, Mean Platelet Volume 9.9, Neutrophils (%) (Auto) 73, Lymphocytes (%) (Auto) 19, Monocytes (%) (Auto) 8, Eosinophils (%) (Auto) 0, Basophils (%) (Auto) 0, Neutrophils # (Auto) 4.8, Lymphocytes # (Auto) 1.2, Monocytes # (Auto) 0.5, Eosinophils # (Auto) 0.0, Basophils # (Auto) 0.0, Sodium Level 140, Potassium Level 4.4, Chloride Level 98, Carbon Dioxide Level 28, Anion Gap 14, Blood Urea Nitrogen 32H, Creatinine 1.13, Estimat Glomerular Filtration Rate > 60, BUN/Creatinine Ratio 28, Glucose Level 162H, Calcium Level 9.1, Corrected Calcium 9.7, Total Bilirubin 0.3, Aspartate Amino Transf (AST/SGOT) 57H, Alanine Aminotransferase (ALT/SGPT) 44, Alkaline Phosphatase 117, Total Protein 7.2, Albumin 3.3 07/05/19 05:06: Glucometer 174H 07/05/19 11:21: Glucometer 250H 07/05/19 18:46: Glucometer 169H 07/05/19 21:41: Glucometer 237H 07/06/19 06:13: Glucometer 136H 07/06/19 07:13: White Blood Count 8.0, Red Blood Count 2.96L, Hemoglobin 8.1L, Hematocrit 28L, Mean Corpuscular Volume 94, Mean Corpuscular Hemoglobin 27, Mean Corpuscular Hemoglobin Concent 29L, Red Cell Distribution Width 18.0H, Platelet Count 246, Mean Platelet Volume 10.1, Neutrophils (%) (Auto) 70, Lymphocytes (%) (Auto) 16, Monocytes (%) (Auto) 12, Eosinophils (%) (Auto) 2, Basophils (%) (Auto) 0, Neutrophils # (Auto) 5.6, Lymphocytes # (Auto) 1.3, Monocytes # (Auto) 0.9, Eosinophils # (Auto) 0.1, Basophils # (Auto) 0.0, Sodium Level 139, Potassium Level 4.5, Chloride Level 99, Carbon Dioxide Level 30, Anion Gap 10, Blood Urea Nitrogen 31H, Creatinine 1.10, Estimat Glomerular Filtration Rate > 60, BUN/Creatinine Ratio 28, Glucose Level 134H, Calcium Level 8.8, Corrected Calcium 9.4, Total Bilirubin 0.4, Aspartate Amino Transf (AST/SGOT) 87H, Alanine Aminotransferase (ALT/SGPT) 57H, Alkaline Phosphatase 114, Total Protein 6.4, Albumin 3.3 07/06/19 11:01: Glucometer 184H 07/06/19 16:11: Glucometer 199H 07/06/19 21:12: Glucometer 276H 07/07/19 05:49: Glucometer 203H 07/07/19 07:00: White Blood Count 9.2, Red Blood Count 2.77L, Hemoglobin 7.4L, Hematocrit 26L, Mean Corpuscular Volume 92, Mean Corpuscular Hemoglobin 27, Mean Corpuscular Hemoglobin Concent 29L, Red Cell Distribution Width 18.2H, Platelet Count 238, Mean Platelet Volume 10.1, Neutrophils (%) (Auto) 75, Lymphocytes (%) (Auto) 15, Monocytes (%) (Auto) 10, Eosinophils (%) (Auto) 0, Basophils (%) (Auto) 0, Neutrophils # (Auto) 6.9, Lymphocytes # (Auto) 1.3, Monocytes # (Auto) 0.9, Eosinophils # (Auto) 0.0, Basophils # (Auto) 0.0, Sodium Level 139, Potassium Level 4.4, Chloride Level 99, Carbon Dioxide Level 30, Anion Gap 10, Blood Urea Nitrogen 39H, Creatinine 1.40H, Estimat Glomerular Filtration Rate 51, BUN/Creatinine Ratio 28, Glucose Level 184H, Calcium Level 8.5, Corrected Calcium 9.1, Total Bilirubin 0.4, Aspartate Amino Transf (AST/SGOT) 34, Alanine Aminotransferase (ALT/SGPT) 36, Alkaline Phosphatase 112, Total Protein 6.3L, Albumin 3.2 07/07/19 11:05: Glucometer 179H 07/07/19 12:55: White Blood Count 9.4, Red Blood Count 2.77L, Hemoglobin 7.6L, Hematocrit 26L, Mean Corpuscular Volume 92, Mean Corpuscular Hemoglobin 27, Mean Corpuscular Hemoglobin Concent 30L, Red Cell Distribution Width 18.0H, Platelet Count 226, Mean Platelet Volume 10.2, Neutrophils (%) (Auto) 75, Lymphocytes (%) (Auto) 15, Monocytes (%) (Auto) 10, Eosinophils (%) (Auto) 0, Basophils (%) (Auto) 0, Neutrophils # (Auto) 7.0, Lymphocytes # (Auto) 1.4, Monocytes # (Auto) 0.9, Eosinophils # (Auto) 0.0, Basophils # (Auto) 0.0, Sodium Level 138, Potassium Level 4.5, Chloride Level 98, Carbon Dioxide Level 32, Anion Gap 8, Blood Urea Nitrogen 37H, Creatinine 1.43H, Estimat Glomerular Filtration Rate 49, BUN/Creatinine Ratio 26, Glucose Level 184H, Calcium Level 8.8, Phosphorus Level 3.1, Magnesium Level 1.3L, B-Type Natriuretic Peptide 986.8H 07/07/19 13:01: Blood Gas Puncture Site L RADIAL, Blood Gas Patient Temperature 98.8, Arterial Blood pH 7.37, Arterial Blood Partial Pressure CO2 56H, Arterial Blood Partial Pressure O2 53L, Arterial Blood HCO3 32H, Arterial Blood Total CO2 33.3H, Arterial Blood Oxygen Saturation 84L, Arterial Blood Base Excess 6.4H, Maurisio Test YES-POS, Blood Gas Ventilator Setting NO, Blood Gas Inspired Oxygen 3 07/07/19 15:29: Glucometer 285H 07/07/19 20:10: Glucometer 199H 07/08/19 05:34: Glucometer 230H 07/08/19 11:35: Glucometer 229H 07/08/19 15:43: Glucometer 271H 07/08/19 20:54: Glucometer 224H 07/09/19 06:40: Glucometer 191H 07/09/19 06:57: White Blood Count 5.9, Red Blood Count 2.70L, Hemoglobin 7.1L, Hematocrit 25L, Mean Corpuscular Volume 93, Mean Corpuscular Hemoglobin 26, Mean Corpuscular Hemoglobin Concent 28L, Red Cell Distribution Width 17.6H, Platelet Count 259, Mean Platelet Volume 10.8H, Neutrophils (%) (Auto) 59, Lymphocytes (%) (Auto) 27, Monocytes (%) (Auto) 11, Eosinophils (%) (Auto) 3, Basophils (%) (Auto) 0, Neutrophils # (Auto) 3.5, Lymphocytes # (Auto) 1.6, Monocytes # (Auto) 0.6, Eosinophils # (Auto) 0.2, Basophils # (Auto) 0.0, Sodium Level 137, Potassium Level 4.7, Chloride Level 97L, Carbon Dioxide Level 31, Anion Gap 9, Blood Urea Nitrogen 36H, Creatinine 1.34H, Estimat Glomerular Filtration Rate 53, BUN/Creatinine Ratio 27, Glucose Level 168H, Calcium Level 9.3, Corrected Calcium 9.9, Total Bilirubin 0.4, Aspartate Amino Transf (AST/SGOT) 24, Alanine Aminotransferase (ALT/SGPT) 28, Alkaline Phosphatase 126, Total Protein 6.7, Albumin 3.2 07/09/19 10:59: Glucometer 263H 07/09/19 17:17: Glucometer 226H 07/09/19 18:52: Glucometer 217H 07/09/19 20:37: Glucometer 218H 07/10/19 07:08: Glucometer 184H 07/10/19 11:45: Glucometer 262H 07/10/19 15:54: Glucometer 228H 07/10/19 20:59: Glucometer 218H 07/11/19 05:45: Glucometer 173H 07/11/19 11:05: Glucometer 334H 07/11/19 15:24: Glucometer 175H 07/11/19 20:36: Glucometer 286H 07/12/19 05:32: Glucometer 158H 07/12/19 11:07: Glucometer 208H 07/12/19 17:35: Glucometer 214H 07/12/19 21:07: Glucometer 209H 07/13/19 05:21: Glucometer 160H 07/13/19 11:05: Glucometer 239H Microbiology 06/18/19 Blood Culture - Final, Complete No growth 07/04/19 MRSA Screen - Final, Complete MRSA not isolated Pending Labs Microbiology Date/Time Source Procedure Growth Status 06/18/19 22:21 Port Picc Blood Culture - Final No growth Complete 06/18/19 16:42 Peripheral Lt Hand Blood Culture - Final No growth Complete 06/18/19 16:35 Peripheral Lt Ac Blood Culture - Final No growth Complete 07/04/19 15:55 Nasal MRSA Screen - Final MRSA not isolated Complete 06/27/19 18:50 Nasal MRSA Screen - Final MRSA not isolated Complete Laboratory Tests 06/18/19 13:15: Glucometer 203 06/18/19 15:45: Glucometer 228 06/18/19 16:42: White Blood Count 8.1, Red Blood Count 3.21, Hemoglobin 9.2, Hematocrit 30, Mean Corpuscular Volume 92, Mean Corpuscular Hemoglobin 29, Mean Corpuscular Hemoglobin Concent 31, Red Cell Distribution Width 17.0, Platelet Count 200, Mean Platelet Volume 11.0, Neutrophils (%) (Auto) 74, Lymphocytes (%) (Auto) 12, Monocytes (%) (Auto) 12, Eosinophils (%) (Auto) 1, Basophils (%) (Auto) 0, Neutrophils # (Auto) 6.0, Lymphocytes # (Auto) 0.9, Monocytes # (Auto) 1.0, Eosinophils # (Auto) 0.1, Basophils # (Auto) 0.0, Sodium Level 131, Potassium Level 4.5, Chloride Level 96, Carbon Dioxide Level 27, Anion Gap 8, Blood Urea Nitrogen 27, Creatinine 1.37, Estimat Glomerular Filtration Rate 52, BUN/Creatinine Ratio 20, Glucose Level 214, Lactic Acid Level 1.06, Calcium Level 9.1, Corrected Calcium 9.7, Phosphorus Level 1.9, Magnesium Level 1.1, Total Bilirubin 0.3, Aspartate Amino Transf (AST/SGOT) 38, Alanine Aminotransferase (ALT/SGPT) 19, Alkaline Phosphatase 109, Total Protein 7.1, Albumin 3.3 06/18/19 20:49: Glucometer 201 06/19/19 05:34: Glucometer 206 06/19/19 06:35: White Blood Count 6.6, Red Blood Count 3.01, Hemoglobin 8.5, Hematocrit 28, Mean Corpuscular Volume 92, Mean Corpuscular Hemoglobin 28, Mean Corpuscular Hemoglobin Concent 31, Red Cell Distribution Width 16.7, Platelet Count 198, Mean Platelet Volume 10.8, Neutrophils (%) (Auto) 71, Lymphocytes (%) (Auto) 16, Monocytes (%) (Auto) 11, Eosinophils (%) (Auto) 2, Basophils (%) (Auto) 1, Neutrophils # (Auto) 4.7, Lymphocytes # (Auto) 1.1, Monocytes # (Auto) 0.7, Eosinophils # (Auto) 0.2, Basophils # (Auto) 0.0, Sodium Level 136, Potassium Level 4.0, Chloride Level 98, Carbon Dioxide Level 26, Anion Gap 12, Blood Urea Nitrogen 25, Creatinine 1.36, Estimat Glomerular Filtration Rate 52, BUN/Creatinine Ratio 18, Glucose Level 182, Calcium Level 8.9, Corrected Calcium 9.5, Phosphorus Level 4.2, Magnesium Level 1.8, Total Bilirubin 0.3, Aspartate Amino Transf (AST/SGOT) 33, Alanine Aminotransferase (ALT/SGPT) 18, Alkaline Phosphatase 114, Total Protein 6.7, Albumin 3.2 06/19/19 11:26: Glucometer 177 06/19/19 15:29: Glucometer 217 06/19/19 20:48: Glucometer 234 06/20/19 05:55: Glucometer 193 06/20/19 06:35: White Blood Count 6.1, Red Blood Count 3.07, Hemoglobin 8.7, Hematocrit 28, Mean Corpuscular Volume 92, Mean Corpuscular Hemoglobin 28, Mean Corpuscular Hemoglobin Concent 31, Red Cell Distribution Width 16.8, Platelet Count 224, Mean Platelet Volume 10.7, Neutrophils (%) (Auto) 67, Lymphocytes (%) (Auto) 20, Monocytes (%) (Auto) 9, Eosinophils (%) (Auto) 3, Basophils (%) (Auto) 1, Neutrophils # (Auto) 4.1, Lymphocytes # (Auto) 1.2, Monocytes # (Auto) 0.6, Eosinophils # (Auto) 0.2, Basophils # (Auto) 0.0, Sodium Level 135, Potassium Level 4.2, Chloride Level 100, Carbon Dioxide Level 25, Anion Gap 10, Blood Urea Nitrogen 22, Creatinine 1.35, Estimat Glomerular Filtration Rate 53, BUN/Creatinine Ratio 16, Glucose Level 180, Calcium Level 9.0, Corrected Calcium 9.6, Total Bilirubin 0.3, Aspartate Amino Transf (AST/SGOT) 28, Alanine Aminotransferase (ALT/SGPT) 16, Alkaline Phosphatase 101, Total Protein 6.9, Albumin 3.2 06/20/19 11:36: Glucometer 189 06/20/19 16:44: Glucometer 208 06/20/19 20:59: Glucometer 190 06/21/19 00:30: Vancomycin Level Trough 23.4 06/21/19 05:30: Glucometer 172 06/21/19 07:26: White Blood Count 5.7, Red Blood Count 2.93, Hemoglobin 8.2, Hematocrit 27, Mean Corpuscular Volume 92, Mean Corpuscular Hemoglobin 28, Mean Corpuscular Hemoglobin Concent 31, Red Cell Distribution Width 16.8, Platelet Count 247, Mean Platelet Volume 10.3, Neutrophils (%) (Auto) 62, Lymphocytes (%) (Auto) 20, Monocytes (%) (Auto) 12, Eosinophils (%) (Auto) 5, Basophils (%) (Auto) 1, Neutrophils # (Auto) 3.6, Lymphocytes # (Auto) 1.1, Monocytes # (Auto) 0.7, Eosinophils # (Auto) 0.3, Basophils # (Auto) 0.1, Sodium Level 136, Potassium Level 3.9, Chloride Level 100, Carbon Dioxide Level 25, Anion Gap 11, Blood Urea Nitrogen 26, Creatinine 1.34, Estimat Glomerular Filtration Rate 53, BUN/Creatinine Ratio 19, Glucose Level 166, Calcium Level 8.9, Corrected Calcium 9.6, Total Bilirubin 0.3, Aspartate Amino Transf (AST/SGOT) 25, Alanine Aminotransferase (ALT/SGPT) 16, Alkaline Phosphatase 111, Total Protein 6.4, Albumin 3.1 06/21/19 10:51: Glucometer 230 06/21/19 12:45: Vancomycin Level Trough 18.3 06/21/19 15:21: Glucometer 205 06/21/19 20:36: Glucometer 182 06/22/19 05:45: Glucometer 168 06/22/19 10:53: Glucometer 241 06/22/19 15:15: Glucometer 182 06/22/19 20:31: Glucometer 212 06/23/19 05:50: White Blood Count 5.7, Red Blood Count 2.92, Hemoglobin 8.0, Hematocrit 27, Mean Corpuscular Volume 92, Mean Corpuscular Hemoglobin 27, Mean Corpuscular Hemoglobin Concent 30, Red Cell Distribution Width 17.0, Platelet Count 272, Mean Platelet Volume 9.6, Neutrophils (%) (Auto) 57, Lymphocytes (%) (Auto) 26, Monocytes (%) (Auto) 11, Eosinophils (%) (Auto) 5, Basophils (%) (Auto) 1, Neutrophils # (Auto) 3.2, Lymphocytes # (Auto) 1.5, Monocytes # (Auto) 0.7, Eosinophils # (Auto) 0.3, Basophils # (Auto) 0.0, Sodium Level 136, Potassium Level 4.7, Chloride Level 105, Carbon Dioxide Level 22, Anion Gap 9, Blood Urea Nitrogen 21, Creatinine 1.11, Estimat Glomerular Filtration Rate > 60, BUN/Creatinine Ratio 19, Glucose Level 160, Calcium Level 8.9, Corrected Calcium 9.7, Total Bilirubin 0.2, Aspartate Amino Transf (AST/SGOT) 32, Alanine Aminotransferase (ALT/SGPT) 16, Alkaline Phosphatase 106, Total Protein 6.3, Albumin 3.0 06/23/19 05:52: Glucometer 164 06/23/19 11:02: Glucometer 200 06/23/19 15:34: Glucometer 203 06/23/19 20:44: Glucometer 178 06/24/19 05:22: Glucometer 182 06/24/19 11:04: Glucometer 216 06/24/19 15:46: Glucometer 148 06/24/19 20:30: Glucometer 188 06/25/19 05:33: Glucometer 160 06/25/19 11:17: Glucometer 182 06/25/19 16:31: Glucometer 178 06/25/19 20:13: Glucometer 211 06/26/19 05:49: Glucometer 152 06/26/19 11:07: Glucometer 209 06/26/19 15:34: Glucometer 160 06/26/19 20:40: Glucometer 176 06/27/19 05:09: Glucometer 175 06/27/19 11:34: Glucometer 270 06/27/19 11:51: White Blood Count 6.2, Red Blood Count 2.98, Hemoglobin 8.1, Hematocrit 27, Mean Corpuscular Volume 92, Mean Corpuscular Hemoglobin 27, Mean Corpuscular Hemoglo bin Concent 30, Red Cell Distribution Width 17.2, Platelet Count 312, Mean Platelet Volume 10.0, Neutrophils (%) (Auto) 68, Lymphocytes (%) (Auto) 19, Monocytes (%) (Auto) 9, Eosinophils (%) (Auto) 4, Basophils (%) (Auto) 1, Neutrophils # (Auto) 4.2, Lymphocytes # (Auto) 1.2, Monocytes # (Auto) 0.6, Eosinophils # (Auto) 0.2, Basophils # (Auto) 0.0, Sodium Level 137, Potassium Level 4.7, Chloride Level 102, Carbon Dioxide Level 22, Anion Gap 13, Blood Urea Nitrogen 18, Creatinine 0.99, Estimat Glomerular Filtration Rate > 60, BUN/Creatinine Ratio 18, Glucose Level 217, Calcium Level 9.2, Corrected Calcium 9.8, Phosphorus Level 2.4, Magnesium Level 1.4, Total Bilirubin 0.3, Aspartate Amino Transf (AST/SGOT) 39, Alanine Aminotransferase (ALT/SGPT) 24, Alkaline Phosphatase 140, Total Protein 6.9, Albumin 3.2 06/27/19 15:43: Glucometer 183 06/27/19 20:49: Glucometer 206 06/28/19 04:54: Glucometer 188 06/28/19 10:48: Glucometer 203 06/28/19 16:14: Glucometer 165 06/28/19 21:18: Glucometer 223 06/29/19 05:18: Glucometer 180 06/29/19 10:54: Glucometer 170 06/29/19 17:14: Glucometer 284 06/29/19 20:34: Glucometer 165 06/30/19 05:39: Glucometer 191 06/30/19 05:50: White Blood Count 6.0, Red Blood Count 2.76, Hemoglobin 7.6, Hematocrit 25, Mean Corpuscular Volume 92, Mean Corpuscular Hemoglobin 28, Mean Corpuscular Hemoglobin Concent 30, Red Cell Distribution Width 17.2, Platelet Count 273, Mean Platelet Volume 9.8, Neutrophils (%) (Auto) 61, Lymphocytes (%) (Auto) 25, Monocytes (%) (Auto) 11, Eosinophils (%) (Auto) 3, Basophils (%) (Auto) 1, Neutrophils # (Auto) 3.7, Lymphocytes # (Auto) 1.5, Monocytes # (Auto) 0.6, Eosinophils # (Auto) 0.2, Basophils # (Auto) 0.0, Sodium Level 139, Potassium Level 4.3, Chloride Level 101, Carbon Dioxide Level 27, Anion Gap 11, Blood Urea Nitrogen 23, Creatinine 1.00, Estimat Glomerular Filtration Rate > 60, BUN/Creatinine Ratio 23, Glucose Level 155, Calcium Level 9.3, Corrected Calcium 10.0, Total Bilirubin 0.2, Aspartate Amino Transf (AST/SGOT) 35, Alanine Aminotransferase (ALT/SGPT) 23, Alkaline Phosphatase 131, Total Protein 6.6, Albumin 3.1 06/30/19 11:13: Glucometer 188 06/30/19 16:02: Glucometer 209 06/30/19 21:03: Glucometer 260 07/01/19 05:21: Glucometer 160 07/01/19 11:02: Glucometer 221 07/01/19 15:50: Glucometer 256 07/01/19 20:42: Glucometer 261 07/02/19 05:13: Glucometer 203 07/02/19 11:04: Glucometer 203 07/02/19 15:33: Glucometer 257 07/02/19 20:43: Glucometer 299 07/03/19 05:41: Glucometer 189 07/03/19 11:36: Glucometer 229 07/03/19 16:01: Glucometer 272 07/03/19 21:38: Glucometer 265 07/04/19 05:51: Glucometer 149 07/04/19 10:56: Glucometer 67 07/04/19 11:08: Glucometer 256 07/04/19 16:12: Glucometer 309 07/04/19 20:17: Glucometer 368 07/05/19 05:03: White Blood Count 6.5, Red Blood Count 2.93, Hemoglobin 7.9, Hematocrit 27, Mean Corpuscular Volume 92, Mean Corpuscular Hemoglobin 27, Mean Corpuscular Hemoglobin Concent 29, Red Cell Distribution Width 17.6, Platelet Count 262, Mean Platelet Volume 9.9, Neutrophils (%) (Auto) 73, Lymphocytes (%) (Auto) 19, Monocytes (%) (Auto) 8, Eosinophils (%) (Auto) 0, Basophils (%) (Auto) 0, Neutrophils # (Auto) 4.8, Lymphocytes # (Auto) 1.2, Monocytes # (Auto) 0.5, Eosinophils # (Auto) 0.0, Basophils # (Auto) 0.0, Sodium Level 140, Potassium Level 4.4, Chloride Level 98, Carbon Dioxide Level 28, Anion Gap 14, Blood Urea Nitrogen 32, Creatinine 1.13, Estimat Glomerular Filtration Rate > 60, BUN/Creatinine Ratio 28, Glucose Level 162, Calcium Level 9.1, Corrected Calcium 9.7, Total Bilirubin 0.3, Aspartate Amino Transf (AST/SGOT) 57, Alanine Aminotransferase (ALT/SGPT) 44, Alkaline Phosphatase 117, Total Protein 7.2, Albumin 3.3 07/05/19 05:06: Glucometer 174 07/05/19 11:21: Glucometer 250 07/05/19 18:46: Glucometer 169 07/05/19 21:41: Glucometer 237 07/06/19 06:13: Glucometer 136 07/06/19 07:13: White Blood Count 8.0, Red Blood Count 2.96, Hemoglobin 8.1, Hematocrit 28, Mean Corpuscular Volume 94, Mean Corpuscular Hemoglobin 27, Mean Corpuscular Hemoglobin Concent 29, Red Cell Distribution Width 18.0, Platelet Count 246, Mean Platelet Volume 10.1, Neutrophils (%) (Auto) 70, Lymphocytes (%) (Auto) 16, Monocytes (%) (Auto) 12, Eosinophils (%) (Auto) 2, Basophils (%) (Auto) 0, [place] trophils # (Auto) 5.6, Lymphocytes # (Auto) 1.3, Monocytes # (Auto) 0.9, Eosinophils # (Auto) 0.1, Basophils # (Auto) 0.0, Sodium Level 139, Potassium Level 4.5, Chloride Level 99, Carbon Dioxide Level 30, Anion Gap 10, Blood Urea Nitrogen 31, Creatinine 1.10, Estimat Glomerular Filtration Rate > 60, BUN/Creatinine Ratio 28, Glucose Level 134, Calcium Level 8.8, Corrected Calcium 9.4, Total Bilirubin 0.4, Aspartate Amino Transf (AST/SGOT) 87, Alanine Aminotransferase (ALT/SGPT) 57, Alkaline Phosphatase 114, Total Protein 6.4, Albumin 3.3 07/06/19 11:01: Glucometer 184 07/06/19 16:11: Glucometer 199 07/06/19 21:12: Glucometer 276 07/07/19 05:49: Glucometer 203 07/07/19 07:00: White Blood Count 9.2, Red Blood Count 2.77, Hemoglobin 7.4, Hematocrit 26, Mean Corpuscular Volume 92, Mean Corpuscular Hemoglobin 27, Mean Corpuscular Hemoglobin Concent 29, Red Cell Distribution Width 18.2, Platelet Count 238, Mean Platelet Volume 10.1, Neutrophils (%) (Auto) 75, Lymphocytes (%) (Auto) 15, Monocytes (%) (Auto) 10, Eosinophils (%) (Auto) 0, Basophils (%) (Auto) 0, Neutrophils # (Auto) 6.9, Lymphocytes # (Auto) 1.3, Monocytes # (Auto) 0.9, Eosinophils # (Auto) 0.0, Basophils # (Auto) 0.0, Sodium Level 139, Potassium Level 4.4, Chloride Level 99, Carbon Dioxide Level 30, Anion Gap 10, Blood Urea Nitrogen 39, Creatinine 1.40, Estimat Glomerular Filtration Rate 51, BUN/Creatinine Ratio 28, Glucose Level 184, Calcium Level 8.5, Corrected Calcium 9.1, Total Bilirubin 0.4, Aspartate Amino Transf (AST/SGOT) 34, Alanine Aminotransferase (ALT/SGPT) 36, Alkaline Phosphatase 112, Total Protein 6.3, Albumin 3.2 07/07/19 11:05: Glucometer 179 07/07/19 12:55: White Blood Count 9.4, Red Blood Count 2.77, Hemoglobin 7.6, Hematocrit 26, Mean Corpuscular Volume 92, Mean Corpuscular Hemoglobin 27, Mean Corpuscular Hemoglobin Concent 30, Red Cell Distribution Width 18.0, Platelet Count 226, Mean Platelet Volume 10.2, Neutrophils (%) (Auto) 75, Lymphocytes (%) (Auto) 15, Monocytes (%) (Auto) 10, Eosinophils (%) (Auto) 0, Basophils (%) (Auto) 0, Neutrophils # (Auto) 7.0, Lymphocytes # (Auto) 1.4, Monocytes # (Auto) 0.9, Eosinophils # (Auto) 0.0, Basophils # (Auto) 0.0, Sodium Level 138, Potassium Level 4.5, Chloride Level 98, Carbon Dioxide Level 32, Anion Gap 8, Blood Urea Nitrogen 37, Creatinine 1.43, Estimat Glomerular Filtration Rate 49, BUN/Creatinine Ratio 26, Glucose Level 184, Calcium Level 8.8, Phosphorus Level 3.1, Magnesium Level 1.3, B-Type Natriuretic Peptide 986.8 07/07/19 13:01: Blood Gas Puncture Site L RADIAL, Blood Gas Patient Temperature 98.8, Arterial Blood pH 7.37, Arterial Blood Partial Pressure CO2 56, Arterial Blood Partial Pressure O2 53, Arterial Blood HCO3 32, Arterial Blood Total CO2 33.3, Arterial Blood Oxygen Saturation 84, Arterial Blood Base Excess 6.4, Maurisio Test YES-POS, Blood Gas Ventilator Setting NO, Blood Gas Inspired Oxygen 3 07/07/19 15:29: Glucometer 285 07/07/19 20:10: Glucometer 199 07/08/19 05:34: Glucometer 230 07/08/19 11:35: Glucometer 229 07/08/19 15:43: Glucometer 271 07/08/19 20:54: Glucometer 224 07/09/19 06:40: Glucometer 191 07/09/19 06:57: White Blood Count 5.9, Red Blood Count 2.70, Hemoglobin 7.1, Hematocrit 25, Mean Corpuscular Volume 93, Mean Corpuscular Hemoglobin 26, Mean Corpuscular Hemoglo bin Concent 28, Red Cell Distribution Width 17.6, Platelet Count 259, Mean Platelet Volume 10.8, Neutrophils (%) (Auto) 59, Lymphocytes (%) (Auto) 27, Monocytes (%) (Auto) 11, Eosinophils (%) (Auto) 3, Basophils (%) (Auto) 0, Neutrophils # (Auto) 3.5, Lymphocytes # (Auto) 1.6, Monocytes # (Auto) 0.6, Eosinophils # (Auto) 0.2, Basophils # (Auto) 0.0, Sodium Level 137, Potassium Level 4.7, Chloride Level 97, Carbon Dioxide Level 31, Anion Gap 9, Blood Urea Nitrogen 36, Creatinine 1.34, Estimat Glomerular Filtration Rate 53, BUN/Creatinine Ratio 27, Glucose Level 168, Calcium Level 9.3, Corrected Calcium 9.9, Total Bilirubin 0.4, Aspartate Amino Transf (AST/SGOT) 24, Alanine Aminotransferase (ALT/SGPT) 28, Alkaline Phosphatase 126, Total Protein 6.7, Albumin 3.2 07/09/19 10:59: Glucometer 263 07/09/19 17:17: Glucometer 226 07/09/19 18:52: Glucometer 217 07/09/19 20:37: Glucometer 218 07/10/19 07:08: Glucometer 184 07/10/19 11:45: Glucometer 262 07/10/19 15:54: Glucometer 228 07/10/19 20:59: Glucometer 218 07/11/19 05:45: Glucometer 173 07/11/19 11:05: Glucometer 334 07/11/19 15:24: Glucometer 175 07/11/19 20:36: Glucometer 286 07/12/19 05:32: Glucometer 158 07/12/19 11:07: Glucometer 208 07/12/19 17:35: Glucometer 214 07/12/19 21:07: Glucometer 209 07/13/19 05:21: Glucometer 160 07/13/19 11:05: Glucometer 239 Discharge Home Medications: Active Scripts Active Levemir (Insulin Determir) 1,000 Units/10 Ml Soln 10 Unit SQ HS 30 Days Novolog (Insulin Aspart) 100 Unit/1 Ml Susp 0 Unit SC ACHS 30 Days Alprazolam 0.25 Mg Tablet 0.25 Mg PO Q8H PRN Theophylline (Theophylline Anhydrous) 400 Mg Tablet.er 400 Mg PO DAILY 30 Days Acidophilus-Pectin Capsule (Lactobacillus Acidophilus/Pect) 1 Each Capsule 2 Each PO ACHS 30 Days Pantoprazole Sodium 40 Mg Tablet.dr 40 Mg PO DAILY@0700 30 Days Polyethylene Glycol 3350 17 Gm Powd.pack 17 Gm PO BID PRN 30 Days Daliresp (Roflumilast) 500 Mcg Tablet 500 Mcg PO 1400 30 Days Furosemide 40 Mg Tablet 40 Mg PO DAILY 30 Days Klor-Con M20 (Potassium Chloride) 20 Meq Tab.er.prt 20 Meq PO DAILY@0700 30 Days Quetiapine Fumarate 25 Mg Tablet 50 Mg PO HS 30 Days Percocet 5-325 mg Tablet (Oxycodone HCl/Acetaminophen) 1 Each Tablet 1 Tab PO Q4H PRN Voltaren (Diclofenac Sodium) 100 Gm Gel..gram. 0 Gm TOP QID 30 Days Amlodipine Besylate 10 Mg Tablet 10 Mg PO DAILY@0600 30 Days Metoprolol Tartrate 25 Mg Tablet 25 Mg PO BID 30 Days Sildenafil (Sildenafil Citrate) 20 Mg Tablet 20 Mg PO Q8HR 30 Days Enoxaparin Sodium 40 Mg/0.4 Ml Syringe 40 Mg SC BID 30 Days Flomax (Tamsulosin HCl) 0.4 Mg Cap 0.8 Mg PO DAILY 30 Days Iprat-Albut 0.5-3(2.5) mg/3 ml (Ipratropium/Albuterol Sulfate) 3 Ml Ampul.neb 3 Ml INH RTTID 30 Days Reported Aspirin EC (Aspirin) 81 Mg Tablet.dr 81 Mg PO DAILY Pravastatin Sodium 40 Mg Tablet 40 Mg PO DAILY Lisinopril 10 Mg Tablet 10 Mg PO DAILY Gabapentin 300 Mg Capsule 600 Mg PO HS Gabapentin 300 Mg Capsule 300 Mg PO DAILY Famotidine 20 Mg Tablet 20 Mg PO BID Clopidogrel (Clopidogrel Bisulfate) 75 Mg Tablet 75 Mg PO DAILY Multivitamins with Minerals (Multivitamin with Minerals) 1 Each Tablet 1 Tab PO DAILY Instructions to patient/family Please see electronic discharge instructions given to patient. Diagnosis/Problems Diagnosis/Problems (1) Respiratory failure, acute and chronic (2) COPD (chronic obstructive pulmonary disease) (3) Polycythemia (4) Diabetes mellitus Status: Chronic (5) Back pain (6) CAD (coronary artery disease) Status: Chronic (7) Hyperlipemia (8) Myopathy (9) Neuropathy (10) Renal insufficiency (11) PVD (peripheral vascular disease) (12) Hypertension (13) Obesity Status: Chronic (14) Arthritis of right knee (15) Obesity hypoventilation syndrome (16) CO2 narcosis Status: Acute (17) SIDNEY on CPAP Status: Chronic (18) Hx of supraventricular tachycardia (19) Decubitus ulcer (20) Urinary retention (21) BPH (benign prostatic hyperplasia) (22) UTI due to Klebsiella species (23) Hyperkalemia Status: Acute (24) Renal failure Status: Acute (25) CO2 retention (26) Postoperative wound dehiscence (27) Elevated brain natriuretic peptide (BNP) level Status: Acute (28) Clot retention of urine Status: Acute (29) Wound drainage (30) Hx of CABG (31) Status post lumbar spine surgery for decompression of spinal cord Status: Acute (32) Tobacco use Clinical Quality Measures DVT/VTE Risk/Contraindication: Risk Factor Score Per Nursin RFS Level Per Nursing on Admit: 4+=Very High JASPER LONG DO Jul 13, 2019 08:30
[2019-07-13] MEDS: RT-ALBUTEROL/IPRATROPIUM 3 ML (DUONEB) VIAL INH SCH (09:23)
--- NOTE | 2019-07-13 09:58 | Physical Therapy Daily Note ---
PT Daily Note-Current Subjective Pt laying Supine in bed upon arrival. Ex- is present. Pt agrees to PT. Pain Location: No Pain Reported Mental Status Patient Orientation: Person, Place, Situation Attachments: Oxygen (5L), Alves Catheter Transfers Therapy Code Descriptions/Definitions Functional [place] Measure: 0=Not Assessed/NA 4=Minimal Assistance 1=Total Assistance 5=Supervision or Setup 2=Maximal Assistance 6=Modified [place] 3=Moderate Assistance 7=Complete [place] Therapy Quality Codes: 6 Independent with activity with or without an assistive device 5 Patient requires set up or clean up by helper. Patient completes activity by themselves 4 Supervision or touching assist (CGA). [place] provide cues , steadying assist 3 The helper provides less than half the effort to complete the activity 2 The helper provides more than half the effort to complete the activity 1 Dependent. The helper does all the effort to complete an activity 7 Patient refused to complete or attempt activity 9 The patient did not perform the activity before the current illness or injury 88 Not attempted due to Medical conditions or safety concerns Transfers (B, C, W/C) (FIM): 4 Scootin Rollin Roll Left to Right (QC): 4 Supine to/from Sit: 4 Sit to/from Stand: 4 Sit to Lying (QC): 4 Sit to Stand (QC): 4 Chair/Hmb-wb-Dwjme Xfer(QC): 4 Bed to/from Chair: 4 Car Transfer (QC): 4 Weight Bearing Weight Bearing/Tolerated Weight Bearing/Tolerated Gait Training Does the Patient Walk?: Yes Gait (FIM): 3 Distance (FIM): 8=542-79 ft Distance: 125' Walk 10 feet (QC): 4 Walk 50 ft with 2 Turns(QC): 4 Walking 10ft/uneven surface-QC: 4 Gait Level of Assist: 4 Gait Persons Needed: 1 Gait Assistive Device: FWW Pt fatigues easily and needs frequent RB. Pt ambulates with slow tammy. Wheelchair Training Does the Pt Use a Wheelchair?: Yes Wheelchair (FIM): 4 Wheelchair Distance: 3=150 ft Distance: 150' Wheelchair Level of Assist: 5 Wheel 50 ft with 2 turns (QC): 5 Wheel 150 ft (QC): 5 Type of Wheelchair: Manual Pt propels W/C very slowly. Stair Training Stairs (FIM): 88 This is not safe to complete at this time. Balance Picking up an Object (QC): 88 Special Test Comments Pt does not attempt due to lack of balance at this time. Treatments Pt completes FIM scoring items including: bed mobility, transfers including car transfer, ambulation including across varying surface, but did not complete stairs or picking up object from floor due to lack of balance at this time. Pt returns to room in W/C at end of tx to rest in W/C. Pt has all needs met, call light in hand. Assessment Current Status: Fair Progress Pt continues to fatigue easily and need frequent RBs. PT Short Term Goals Short Term Goals Time Frame: Jun 25, 2019 Transfers (B,C,W/C) (FIM): 3 (met) Gait (FIM): 1 Gait Distance Comment: 5' Gait Level of Assist: 3 Gait Assistive Device: FWW Wheelchair Distance: 50' PT Special Deputy Sheriff Goals Chcf Goals PT Chcf Goals Time Frame: Jul 09, 2019 Transfers (B,C,W/C) (FIM): 4 Sit to Lying (QC): 4 Lying-Sitting on Side/Bed(QC): 4 Sit to Stand (QC): 3 Rollin Roll Left to Right (QC): 4 Chair/Iwv-mw-Uhveu Xfer(QC): 3 Car Transfer (QC): 3 Gait (FIM): 1 Distance: 20' Walk 10 feet (QC): 3 Walk 10ft-Uneven Surface(QC): 3 Gait Level of Assist: 4 Gait Assistive Device: FWW Wheelchair (FIM): 6 Distance: 150' Wheelchair Level of Assist: 5 Wheel 50 feet with 2 turns (QC: 4 PT Plan Problem List Problem List: Activity Tolerance, Functional Strength, Safety, Balance, Gait, Transfer, Bed Mobility Treatment/Plan Treatment Plan: Continue Plan of Care Treatment Plan: Bed Mobility, Concurrent Therapy, Education, Functional Activ ity Leo, Functional Strength, Group Therapy, Gait, Safety, Therapeutic Exercise, Transfers Treatment Duration: Jul 09, 2019 Frequency: At least 5 of 7 days/Wk (IRF) Estimated Hrs Per Day: 1.5 hours per day Patient and/or Family Agrees t: Yes Safety Risks/Education Patient Education: Gait Training, Transfer Techniques, Correct Positioning, W/C Management, Safety Issues Teaching Recipient: Patient Teaching Methods: Discussion Response to Teaching: Verbalize Understanding Time/GCodes Time In: 815 Time Out: 900 Total Billed Treatment Time: 45 Total Billed Treatment 1, GT (20m), WCH (10m) & FA (15m) G Codes Necessary: LUNA Richter MATTRESS FILLER Jul 13, 2019 09:58
--- NOTE | 2019-07-13 10:14 | NUR ---
Dressing change to back incision. Incision cleansed with Alcohol pads. AllKare applied to surrounding tissue. Covered with gauze, and [place] dressing. Minimal amount of serosanguineous drainage noted. Sutures intact. Patient tolerated well.
--- NOTE | 2019-07-13 10:58 | NUR ---
Call from Director at [facility] (Jaye) stating that they can only accept patient if PICC line is to be flushed every [address] every [address] Law notified and ok with above. [facility] informed and ok to proceed with admission. Report to RN at [facility]. Flush PICC Q12H and change dressing weekly on Wednesdays.
[2019-07-13] MEDS ORDERED: INSU100V16 SC (11:21)
[2019-07-13] MEDS ORDERED: INSU100V5 SQ (11:21)
--- NOTE | 2019-07-13 11:39 | NUR ---
CARE assessment completed with pt. His ex- Vickie was also present and supportive of pt. CARE assessment faxed to [facility] and to [facility]. Assisted Checking Department Supervisoryonathan Myles in completing DPOA for Health Care decisions with pt. He updated his previous Directive by adding all three daughters and his ex- Vickie to the new document.Copies given to pt and placed in his chart.
--- NOTE | 2019-07-13 12:01 | Occupational Ther Daily Note ---
OT Current Status-Daily Note Subjective Pt sitting in w/c, agrees to treatment. Pt states he had a rough night last night and is tired this morning. Reports 3/10 pain in left foot. Pt will be discharging today to SNF Mental Status/Objective Therapy Code Descriptions/Definitions Functional [place] Measure: 0=Not Assessed/NA 4=Minimal Assistance 1=Total Assistance 5=Supervision or Setup 2=Maximal Assistance 6=Modified [place] 3=Moderate Assistance 7=Complete [place] Attachments: Oxygen ADL-Treatment Pt declined to attempt shower this morning, states "I just don't think I'm up to it." Agrees to sponge bath. Pt completed sponge bath seated in w/c. Doffed shirt without assist. Pt completed upper body bathing with SBA. Donned shirt with set up. Pt sit to stand with min assist. Doffed shorts and Depends using adaptive equipment. Pt able to wash upper legs and brandyn area. Used long handled sponge to wash lower legs and feet. Assist to wash buttocks. Don socks with min assist using sock aid. Pt used form setter helper to start Depends and shorts over feet. Assist required to thread catheter through pant leg. Stood with mod assist, pt able to pull Depends and pants up over hips with min assist. Pt brushed teeth and combed hair with set up. Pt demonstrated ability to transfer to/from [facility] with min assist using FWW. Pt fatigues with activity and requires occasional rest breaks throughout session. Pt sitting in w/c with needs met after session. Therapy Code Descriptions/Definitions Functional [place] Measure: 0=Not Assessed/NA 4=Minimal Assistance 1=Total Assistance 5=Supervision or Setup 2=Maximal Assistance 6=Modified [place] 3=Moderate Assistance 7=Complete [place] Therapy Quality Codes: 6 Independent with activity with or without an assistive device 5 Patient requires set up or clean up by helper. Patient completes activity by themselves 4 Supervision or touching assist (CGA). [place] provide cues , steadying assist 3 The helper provides less than half the effort to complete the activity 2 The helper provides more than half the effort to complete the activity 1 Dependent. The helper does all the effort to complete an activity 7 Patient refused to complete or attempt activity 9 The patient did not perform the activity before the current illness or injury 88 Not attempted due to Medical conditions or safety concerns Eating (FIM): 6 Eating (QC): 6 Grooming (FIM): 5 Oral Hygiene (QC): 5 Bathing (FIM): 4 Shower/Bathe Self (QC): 3 Upper Body (FIM): 5 Upper Body Dressing (QC): 5 Lower Body Dressing (FIM): 3 Lower Body Dressing (QC): 3 On/Off Footwear (QC): 3 Toilet/Commode Transfer (FIM): 4 Toilet Transfer (QC): 3 OT Short Term Goals Short Term Goals Time Frame: Jun 25, 2019 Grooming(FIM): 5 Bathing(FIM): 3 Lower Body Dressing(FIM): 3 Toileting(FIM): 3 Transfers (B,C,W/C) (FIM): 3 (met) Toilet/Commode Transfer(FIM): 3 Additional Short Term Goals: 1-Demonstrate ADL Tasks, 2-Verbalize Understanding, 3-ImproveStrength/Leo 1=Demonstrate adherence to instructed precautions during ADL tasks. 2=Patient will verbalize/demonstrate understanding of assistive devices/modifications for ADL. 3=Patient will improve strength/tolerance for activity to enable patient to perform ADL's. OT Senior Living Goals Senior Living Goals Time Frame: Jul 09, 2019 Eating (FIM): 6 (met 07/13/19) Eating (QC): 6 (6-MET) Groomin (not met) Oral Hygiene (QC): 6 (5-not met) Bathing(FIM): 5 (not met) Shower/Bathe Self (QC): 5 (not met) Upper Body Dressing(FIM): 6 (not met) Upper Body Dressing (QC): 6 (5-not met) Lower Body Dressing(FIM): 6 (not met) Lower Body Dressing (QC): 5 (3-not met) On/Off Footwear (QC): 5 (not met) Toileting(FIM): 6 Toileting Hygiene (QC): 6 Toilet/Commode Transfer(FIM): 6 (not met) Toilet/Commode Transfer (QC): 6 (not met) Shower Transfer(FIM): 5 Comprehension(FIM): 7 Expression (FIM): 7 Social Interaction(FIM): 7 Problem Solving(FIM): 7 Memory(FIM): 7 Additional Goals: 1-Demonstrate ADL Tasks, 2-Verbalize Understanding, 3- ImproveStrength/Leo 1=Demonstrate adherence to instructed precautions during ADL tasks. 2=Patient will verbalize/demonstrate understanding of assistive devices/modifications for ADL. 3=Patient will improve strength/tolerance for activity to enable patient to perform ADL's. OT Education/Plan Discharge Recommendations Plan/Recommendations: Continue POC Treatment Plan/Plan of Care Patient would benefit from OT for education, treatment and training to promote independence in ADL's, mobility, safety and/or upper extremity function for ADL's. Plan of Care: ADL Retraining, Functional Mobility, Group Exercise/Act as Ind, UE Funct Exercise/Act Treatment Duration: Jul 09, 2019 Frequency: At least 5 of 7 days/Wk (IRF) Estimated Hrs Per Day: 1.5 hours per day Agreement: Yes Rehab Potential: Fair Time/GCodes Start Time: 09:30 Stop Time: 10:30 Total Time Billed (hr/min): 60 Billed Treatment Time 1 visit, ADLx4(60minutes) FRED NEIL OT Jul 13, 2019 12:01
[2019-07-13] MEDS: CATHETER FLUSH 10 ML SYR IV PRN (12:24)
[2019-07-13 12:38] VITALS: BP 134/62
--- NOTE | 2019-07-13 12:48 | Occ Therapy Rehab Re-Cert ---
OT Re-Certification Form Plan of Care: ADL Retraining, Functional Mobility, Group Exercise/Act as Ind, UE Funct Exercise/Act Late entry for 07/09/19 Pt is progressing with therapy, but has not met goals at this time. Pt able to complete UE dressing and grooming with SBA, but requires max assist for LE dressing and mod assist with transfers. Pt has decreased activity tolerance and strength. Pt to continue to benefit from skilled OT intervention for ADL training, transfers, strengthening, adaptive equipment training, and safety education. Continue with established goals. Treatment Duration: 1 week Frequency: At least 5 of 7 days/Wk (IRF) Estimated Hrs Per Day: 1.5 hours per day Agreement: Yes Rehab Potential: Fair OT Short Term Goals Short Term Goals Time Frame: Jun 25, 2019 Grooming(FIM): 5 Bathing(FIM): 3 Lower Body Dressing(FIM): 3 Toileting(FIM): 3 Transfers (B,C,W/C) (FIM): 3 (met) Toilet/Commode Transfer(FIM): 3 Additional Short Term Goals: 1-Demonstrate ADL Tasks, 2-Verbalize Understanding, 3-ImproveStrength/Leo 1=Demonstrate adherence to instructed precautions during ADL tasks. 2=Patient will verbalize/demonstrate understanding of assistive devices/modifications for ADL. 3=Patient will improve strength/tolerance for activity to enable patient to perform ADL's. OT Cloth Measurer Machine Goals Group Home Goals Time Frame: Jul 09, 2019 Eating (FIM): 6 (met 07/13/19) Grooming(FIM): 6 (not met) Bathing(FIM): 5 (not met) Upper Body Dressing(FIM): 6 (not met) Lower Body Dressing(FIM): 6 (not met) Toileting(FIM): 6 Toilet/Commode Transfer(FIM): 6 (not met) Shower Transfer(FIM): 5 Comprehension(FIM): 7 Expression (FIM): 7 Social Interaction(FIM): 7 Problem Solving(FIM): 7 Memory(FIM): 7 Additional Goals: 1-Demonstrate ADL Tasks, 2-Verbalize Understanding, 3- ImproveStrength/Leo 1=Demonstrate adherence to instructed precautions during ADL tasks. 2=Patient will verbalize/demonstrate understanding of assistive devices/modifications for ADL. 3=Patient will improve strength/tolerance for activity to enable patient to perform ADL's. FRED NEIL OT Jul 13, 2019 12:48
[2019-07-13 13:08] VITALS: BP 134/62
--- NOTE | 2019-07-14 09:59 | Physical Therapy Rehab Re-Cert ---
PT Re-Certification Form Physical Therapy Treatment Plan: Continue Plan of Care Bed Mobility, Concurrent Therapy, Education, Functional Activity Leo, Functional Strength, Group Therapy, Gait, Safety, Therapeutic Exercise, Transfers Treatment Duration: 1 week Frequency: At least 5 of 7 days/Wk (IRF) Estimated Hrs Per Day: 1.5 hours per day Patient and/or Family Agrees t: Yes Rehab Potential: Good this note to be effective 07/09/2019; continue same POC with continued goals as established at initial evaluation. PT Short Term Goals Short Term Goals Time Frame: Jun 25, 2019 Transfers (B,C,W/C) (FIM): 3 (met) Gait (FIM): 1 Gait Distance Comment: 5' Gait Level of Assist: 3 Gait Assistive Device: FWW Wheelchair Distance: 150' PT Mcfp Goals Furniture Mechanic Goals PT Furniture Mechanic Goals Time Frame: Jul 09, 2019 Transfers (B,C,W/C) (FIM): 4 Gait (FIM): 1 Distance: 20' Gait Level of Assist: 4 Gait Assistive Device: FWW Wheelchair (FIM): 6 Distance: 150' Wheelchair Level of Assist: 5 AMANDA NAILS PT Jul 14, 2019 09:59
--- NOTE | 2019-07-14 10:04 | Therapy Team Discharge Summary ---
Therapy Discharge Summary Discharge Recommendations Date of Discharge Jul 13, 2019 at 13:14 Therapy D/C Recommendations: [facility]pc (TCU/NH) (recommend continued PT) Physical Therapy This patient was admitted to ARU post lengthy acute and LTAC stay post lumbar surgery that resulted in subsequent respiratory failure. Prior to the surgery, he was living alone and indep with all mobility. Upon admission to this unit, he was max assist with transfers, unable to ambulate, required max assist with wc mobiltiy; he had much difficulty with the ability to fully WB to stand. Treatment has focused on functional LE strength and balance training to improve bed mobiltiy, transfers and progression of gait; in addition, wc mobiltiy incorporated to promote indep mobility. At last visit, pt required min assist to transfer, walked short distances with a FWW with min assist and was min assist with wc mobility. Pt has made functional progress but has not fully met his goals. He is to discharge to a SNF and recommend continued skilled intervention as it is felt that with extended time, functional gains are possible. DC from ARU at this time. Occupational Therapy Decreased Activ Tolerance, Decreased UE Strength, Impaired Self-Care Skills, Restricted Funct UE ROM PT Staff Scientist Goals Custodial Goals PT Custodial Goals Time Frame: Jul 09, 2019 Transfers (B,C,W/C) (FIM): 4 (met) Roll Left to Right (QC): 4 Sit to Lying (QC): 4 Lying-Sitting on Side/Bed(QC): 4 Sit to Stand (QC): 3 Chair/Lqf-ts-Ycjmw Xfer(QC): 3 Car Transfer (QC): 3 Gait (FIM): 1 (met) Distance: 20' Walk 10 feet (QC): 3 Walk 10ft-Uneven Surface(QC): 3 Gait Level of Assist: 4 Gait Assistive Device: FWW Wheelchair (FIM): 6 (unmet) Distance: 150' Wheelchair Level of Assist: 5 Wheel 50 feet with 2 turns (QC: 4 OT Staff Scientist Goals Custodial Goals Time Frame: Jul 09, 2019 Eating (FIM): 6 (met 07/13/19) Eating (QC): 6 (6-MET) Oral Hygiene (QC): 6 (5-not met) Grooming(FIM): 6 (not met) Bathing(FIM): 5 (not met) Shower/Bathe Self (QC): 5 (not met) Upper Body Dressing(FIM): 6 (not met) Upper Body Dressing (QC): 6 (5-not met) Lower Body Dressing(FIM): 6 (not met) Lower Body Dressing (QC): 5 (3-not met) On/Off Footwear (QC): 5 (not met) Toileting(FIM): 6 Toileting Hygiene (QC): 6 Toilet/Commode Transfer(FIM): 6 (not met) Toilet/Commode Transfer (QC): 6 (not met) Shower Transfer(FIM): 5 Comprehension(FIM): 7 Expression (FIM): 7 Social Interaction(FIM): 7 Problem Solving(FIM): 7 Memory(FIM): 7 Additional Goals: 1-Demonstrate ADL Tasks, 2-Verbalize Understanding, 3- ImproveStrength/Leo 1=Demonstrate adherence to instructed precautions during ADL tasks. 2=Patient will verbalize/demonstrate understanding of assistive devices/modifications for ADL. 3=Patient will improve strength/tolerance for activity to enable patient to perform ADL's. Speech Custodial Goals Staff Scientist Goals Comprehension: 7 Expression: 7 Social Interaction: 7 Problem Solvin Memory: 7 AMANDA NAILS PT Jul 14, 2019 10:04
== END 2019-07-13 13:14 | DRG 91 ==
PROVIDERS: ADMIT Internal Medicine; ATTEND Internal Medicine
PROC: 0TJB8ZZ Inspection of Bladder, Via Natural or Artificial Opening Endoscopic (ICD-10-PCS; principal; 2019-06-21)
DX: G72.81 Critical illness myopathy (principal); J96.21 Acute and chronic respiratory failure with hypoxia; J44.9 Chronic obstructive pulmonary disease, unspecified; N39.0 Urinary tract infection, site not specified; D75.1 Secondary polycythemia; T81.31XA Disruption of external operation (surgical) wound, not elsewhere classified, initial encounter; I11.0 Hypertensive heart disease with heart failure; I50.33 Acute on chronic diastolic (congestive) heart failure; N40.1 Benign prostatic hyperplasia with lower urinary tract symptoms; R33.9 Retention of urine, unspecified; E66.2 Morbid (severe) obesity with alveolar hypoventilation; E11.42 Type 2 diabetes mellitus with diabetic polyneuropathy; E11.51 Type 2 diabetes mellitus with diabetic peripheral angiopathy without gangrene; E11.65 Type 2 diabetes mellitus with hyperglycemia; I87.8 Other specified disorders of veins; F17.200 Nicotine dependence, unspecified, uncomplicated; I25.10 Atherosclerotic heart disease of native coronary artery without angina pectoris; D69.6 Thrombocytopenia, unspecified; M17.11 Unilateral primary osteoarthritis, right knee; K21.9 Gastro-esophageal reflux disease without esophagitis; R19.7 Diarrhea, unspecified; F43.21 Adjustment disorder with depressed mood; L72.3 Sebaceous cyst; F41.9 Anxiety disorder, unspecified; D64.9 Anemia, unspecified; B96.1 Klebsiella pneumoniae [K. pneumoniae] as the cause of diseases classified elsewhere; E78.5 Hyperlipidemia, unspecified; Z68.26 Body mass index [BMI] 26.0-26.9, adult; Z79.84 Long term (current) use of oral hypoglycemic drugs; Z95.1 Presence of aortocoronary bypass graft
CPT/HCPCS: 36415; 36600; 71045; 71046; 71250; 80048; 80053; 80202; 82805; 82962; 83605; 83735; 83880; 84100; 85025; 87040; 87081; 94640; 94664; 94760

== ENCOUNTER → 2019-06-21 | Day surgery (SDC) | payer MEDICARE, OTHER ==
[~2019-06-21] MED LIST changes: +ACET325T38 PO; +AMLO10TA7 PO; +CIPR-225 PO; +DICL100G18 TP; +ENOX40DI13 SQ; +HYDR-3812 PO; +INSU100I10 SQ; +INSU100V39 SQ; +IPRA3AMP31 NEB; +LIDOCAINE UROJET 2% GEL 10 ML PKG ONE; +MULT-166 PO; +MUPI22OI2 TP; +NLX.4V IV; +ONDN4T PO; +PANT40TA2 PO; +QUET50TA PO; +ROFL500T PO; +SENN-141 PO; +SILD20TA14 PO; +SULF1TAB35 PO; +TAMS0.4C98 PO; +THEO100T16 PO
--- NOTE | 2019-06-29 10:44 | HISTORY AND PHYSICAL ---
DATE OF SERVICE: 06/19/2019 ATTENDING PHYSICIAN: Dr. Law. SUMMARY: A 68-year-old white man admitted in the inpatient rehabilitation unit for intensive inpatient rehabilitation to maximize his functional independence prior to sending him home. The patient has a long list of medical problems. He has been on Flomax 0.8 mg daily, and intermittent catheterization for inability to void. Yesterday, I went ahead and ordered a Alves catheter just to give some rest to the bladder and decompress it for a good 48 hours. I also started him on Urecholine 25 mg q.i.d. before meals and at bedtime, but watch his COPD and increased shortness of breath or wheezes. He seems to have tolerated well so far. IMPRESSION: Urinary retention. PLAN: Continue present management as long as he tolerates it. Tomorrow, we will try a trial of voiding again. The patient will need a cystoscopy along the line to rule out significant BPH obstruction. Job ID: [id number] DocumentID: [id number] Dictated Date: 06/19/2019 10:02:43 Binder Lockstitch Date: 06/19/2019 10:08:10 Dictated By: NOÉ BURNS MD <Dictated by NOÉ BURNS MD> <Electronically signed by NOÉ BURNS MD> 06/20/19 2201
--- NOTE | 2019-06-29 10:46 | OPERATIVE REPORT ---
DATE OF SERVICE: 06/21/2019 PREOPERATIVE DIAGNOSIS: Urinary retention. POSTOPERATIVE DIAGNOSIS: Urinary retention. OPERATION PERFORMED: Cystoscopy. SURGEON: Phill Burns MD ANESTHESIA: Local. COMPLICATIONS: None. DESCRIPTION OF PROCEDURE: With the patient supine in his bed, genitalia were prepped and draped in the usual sterile fashion. The phallus was circumcised with adequate meatus. Testes down the scrotum and somewhat atrophic. Urethra was infiltrated with 2% lidocaine jelly. Penile clamp was applied. This was then removed and a flexible cystoscope was introduced under vision. The anterior urethra was normal. The prostate was not significantly enlarged causing some mild obstruction. The bladder was entered and it was found to be distended, some trabeculations. A cystoscope was confirmed in an antegrade fashion and cystoscope was removed. The patient tolerated the procedure and anesthesia well, remained in his bed in stable condition. PLAN: Continue Flomax and Urecholine. He does not void in an hour, we will go ahead and straight cath him and continue management as planned was a bladder scan for possible catheterization. This plan was fully explained to the patient. Job ID: [id number] DocumentID: [id number] Dictated Date: 06/21/2019 12:13:08 Road Tester Date: 06/21/2019 22:41:39 Dictated By: PHILL BURNS MD <Dictated by PHILL BURNS MD> <Electronically signed by PHILL BURNS MD> 06/22/19 0700
--- NOTE | 2019-06-30 08:21 | Behavioral Health Consult ---
Consult- Consult Date Seen by Provider: Jun 23, 2019 Time Seen by Provider: 11:00 Date: 06-23-19 Referral: Dr. Law [facility]#: [id number] CPT Code: 63079 Psychodiagnostic Examination 08449 Interactive Complexity, 1 unit(s) Start Time: 11:00 am Stop Time: 1:00 pm Chief Complaint: depression, anxiety Referral: Florentino Meehan is a 68-year-old, , male referred by Dr. Law for a clinical diagnostic assessment. Information for this evaluation was gather ed from self-report, clinical observation, hospital nurse, and medical records. Presenting Problem: Therapist spoke with [place] nurse, Shanae before meeting him. Shanae reported he had back surgery one month ago, was hospitalized at [facility] after complications, then transferred to [facility]. She reported he obtained a wound on his back which delayed his progress and discouraged him a bit, but she stated he has been overall positive. She reported he has made jokes with her and been very pleasant. She reported he has appeared anxious at night and has taken a low dose of Ativan to help with his anxiety. Shanae reported Florentino is not currently prescribed anything for depression. Therapist saw Florentino alone. He reported he has been feeling good and stated he has been at [facility] for about 8 days. He reported he has felt some depression since being hospitalized the past month but denied any problems with depression before that. He reported he has noticed some loss of interest in activities and stated he has not done woodworking the past year due to not taking the time to do it. He also stated he has been unable to ride Yuri motorcycles anymore, but stated that was due to his physical health, not that he does not feel like doing it. He reported some problems sleeping that have worsened while being in the hospital. Florentino reported he did not have much of an appetite and that has been coming back recently, which is good. He denied any problems with worthlessness, guilt, problems concentrating, or suicidal or homicidal ideation. Florentino denied any problems with worry, and when asked about taking the Ativan at night stated it is due to his foot hurting, feeling the pain in his foot is worsening, and then he worrying about his foot and then struggling to fall asleep. He reported he has talked with several doctors about the pain in his foot and they are trying to improve the functioning and decrease the pain, but nothing has worked yet. He reported he does struggle with claustrophobia but stated he does not fly, ride in trains, or very small cars, so it is not an issue. Florentino reported his claustrophobia increases last December after having a surgery for opening veins in his legs, having a bad reaction to anesthesia, and then having to be hospitalized. He reported he was not worried about his more recent surgery a month ago and was hopeful it would go better than his previous one. He reported he has been told he may have to have surgery again and that has him a bit worried. We discussed his concern and he stated he was trying to stay calm because he did not know anything yet and worrying now would not do any good. Observations/Mental Status: Florentino arrived seen on the rehab unit and was alone. Overall appearance was appropriate and indicated adequate self-care. Florentino appeared to be a fair historian. Observed gait and gross motor movements indicated no clinically significant difficulties. Morenita general approach to the evaluation indicated interest. Orientation was intact for person, place, time, and situation. Florentino evidenced fair understanding of the reason for the appointment. Morenita in-session behavior was cooperative. The predominant mood was calm with affect appropriate to expressed concerns and presenting problem. Immediate attention and concentration was unremarkable clinically during the interview. Memory functioning appeared to be intact. Level of intellectual functioning compared to same age peers was estimated to be in the average range. Thought processes were found to be generally logical, coherent and goal directed. Thought content appeared normal. Psychomotor functioning was within normal limits. Tone of voice was normal and controlled. Expressive speech was marked by fluent speech and language. Eye contact was fair. Insight was fair. Overall, style of interacting during the appointment was appropriate and motivated. Current/Previous Mental Health Treatment: Past psychiatric history was denied any past treatment . History of self or other harm was denied. Current destructive behavior patterns: none indicated or reported. Family psychiatric history was reported as unremarkable. Educational and Vocational Histories: Current vocational status: currently retired. 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 Family and Social Histories: Florentino reported he is not currently but has been three times. He reported he and his first had three daughters and he now has five grandchildren. He reported most of his family lives far away now, but one is about 50 miles away. He reported he lives alone. Social contacts were reported as fair. He reported he has three or four close friends and is very close with an older brother. He reported when he had to quit riding his motorcycle he lost some friends but stated he was no longer able to pick his bike up and knew he had to stop riding. Summary of Assessment Information/Prognosis: Florentino is a 68-year-old male. 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 Overall, prognosis is estimated to be guarded. 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 At this time Florentino stated he did not feel therapy was necessary. Therapist stated since he has had a bit of depression while being hospitalized only, that is common, but if it worsens he is recommended to follow up with therapy. Therapist also stated that if his anxiety worsens or becomes more of a problem therapy would be recommended. He was told if he was told he would need to have another surgery while currently hospitalized, therapist could talk with him if he would like. He was given therapists card and agreed to call if needed. Florentino is recommended to return as needed should additional problems develop. Further disposition will be made at that time. Florentino verbalized understanding of these recommendations and an intention to comply with the proposed treatment plan and course of treatment. GARRET GIRARD [facility] Jun 30, 2019 08:21
--- NOTE | 2019-06-30 13:23 | Behavioral Health ProgressNote ---
Standard Progress Note Progress Notes/Assess & Plan Date Seen 06/30/19 Time Seen by Provider: 10:00 Assess & Plan/Chief Complaint Therapist spoke with his nurse yesterday to discuss results of the consult from last week, which were in his chart and dated 06-24-19, the day after he had been seen. Therapist printed out a copy of the consult from last week to give to his nurse today due to there being some difficulty in finding the consult. Florentino's current nurse, Renee, stated Florentino was asking to see therapist again. Therapist spoke with Florentino and he stated he thought he was getting scheduled for a follow up appt with therapist and was told that could be done once he has a discharge date. Therapist asked how he had been doing and feeling and he stated his mood was good. He reported he has not felt any more depressed than he previously had but stated his back has been hurting more. He reported he is not aware of his discharge date but is aware he needs to be able to use the restroom alone to be able to be discharged. Florentino reported he has continued to be worried at night about his foot and stated he feels that the capps are closing in on him. He denied any other worry. We discussed his mood and he continued to deny symptoms of depression, but he stated he feels a bit down but feels his mood will improve once he leaves the hospital. We discussed how being hospitalized for a month or longer would be difficult and would have some effect on his mood. He stated he was hopeful and did not feel he would need therapy after he was discharged but agreed to make an appt if anything changed or his mood did not improve upon discharge. He stated he would like to get outside, even if in a wheelchair, and therapist offered to speak to his nurse on that, which happened after meeting with Florentino. GARRET GIRARD Jun 30, 2019 13:23
== END | disposition home or self-care (01) ==
LOC: SDC 11:02
PROVIDERS: ATTEND Urology
DX: R33.9 Retention of urine, unspecified (principal)

== ENCOUNTER → 2019-07-05 | Day surgery (SDC) | payer MEDICARE, OTHER ==
[~2019-07-05] MED LIST changes: +ACETAMINOPHEN 325 MG TABLET PO PRN; +ALPR0.254 PO; +AMOX-358 PO; +DICL100G18 TOP; +ENOX40DI8 SC; +FLUT1BLS12 INH; +GENTAMICIN 40 MG/ML 2 ML INJ SDV ONE; +HYDROcodone/APAP 5 MG/325 MG (LORTAB) TAB PO PRN; +INSU100I14 SQ; +INSU100I29 SQ; +INSU100V16 SC; +INSU100V5 SQ; +IPRA3AMP31 INH; +LACT1CAP62 PO; +LACT1CAP7 PO; +LACTATED RINGERS 1,000 ML IV PRN; -LIDOCAINE UROJET 2% GEL 10 ML PKG ONE; +METOCLOPRAMIDE 10 MG (REGLAN) TAB PO PRN; +METOCLOPRAMIDE INJ 10 MG/2 ML (REGLAN) IV PRN; +ONDANSETRON 4 MG/2 ML (SDV) Z0FRAN IV ONE; +ONDANSETRON 4 MG/2 ML (SDV) Z0FRAN IV PRN; +OXYC1TAB87 PO; +PANT40TA3 PO; +POLY17PO31 PO; +POLY17PO6 PO; +POTA-51 PO; +POTA20TA8 PO; +PROMETHAZINE 25 MG (PHENERGAN) TAB PO PRN; +QUET25TA73 PO; +QUET50TA55 PO; +THEO400T PO; +VANCOMYCIN 1000 MG/VIAL ONE; +fentaNYL INJECTION 100 MCG/2 ML AMP IVP ONE; +morphine INJ 10 MG/ML 1ML (SYR OR VIAL) IVP ONE; +morphine INJ 10 MG/ML 1ML (SYR OR VIAL) IVP STA
[2019-07-05 17:15] VITALS: BP 150/71
[2019-07-05 17:20] VITALS: BP 161/71
--- NOTE | 2019-07-05 17:27 | Progress Note-Post Operative ---
Post-Operative Progess Note Surgeon (s)/Ticker Maintainer (s) Surgeon OTILIO PEREIRA DO Ticker Maintainer: Venkatesh Ramirez PA-C Pre-Operative Diagnosis Surgical wound infection lumbar spine Post-Operative Diagnosis Same Procedure & Operative Findings Date of Procedure 07/05/19 Procedure Performed/Findings Irrigation and debridement surgical wound infection lumbar spine Anesthesia Type GETA Estimated Blood Loss Estimated blood loss (mL): 150mL Specimens/Packing Specimens Removed None Drains: medium HVD Complications: none Findings: no gross purulence, healthy soft tissue bed, stable spinal hardware L4-5 Disposition: stable, to PACU in stable condition Packing: None OTILIO PEREIRA DO Jul 05, 2019 17:27
[2019-07-05 17:30] VITALS: BP 155/67
[2019-07-05 17:40] VITALS: BP 152/71
[2019-07-05 17:50] VITALS: BP 154/72
[2019-07-05 18:00] VITALS: BP 149/64
--- NOTE | 2019-07-06 13:03 | Anesthesia-General Post-Op ---
General Patient Condition Mental Status/LOC: Same as Preop Cardiovascular: Satisfactory Nausea/Vomiting: Absent Respiratory: Satisfactory Pain: Controlled Complications: Absent Post Op Complications Complications None Follow Up Care/Instructions Patient Instructions None needed. Anesthesia/Patient Condition Patient Condition Patient is doing well, no complaints, stable vital signs, no apparent adverse anesthesia problems. KAILA FOSTER DO Jul 06, 2019 13:03
--- NOTE | 2019-07-30 00:50 | OPERATIVE REPORT ---
DATE OF SERVICE: 07/05/2019 PREPROCEDURE DIAGNOSIS: Postoperative lumbar wound infection. POSTOPERATIVE DIAGNOSIS: Postoperative lumbar wound infection. PROCEDURE: Incision, irrigation and excisional debridement of postoperative wound infection lumbar spine including skin, subcutaneous tissue and fascia; wound size approximately 12 square cm. ATTENDING SURGEON: Dr. Otilio Carrasco. MILL AND COAL TRANSPORT OPERATOR: Venkatesh Ramirez PA-C; Ashley's assistance was required secondary to the complexity of the case, to hold the necessary retractors protecting vital neurovascular structures and to increase the efficiency and efficacy of the case; this case would not have been possible without the presence of an kitchen assistant. ANESTHESIA: General endotracheal. ESTIMATED BLOOD LOSS: 50 mL. COMPLICATIONS: None. SPECIMENS: None. DRAINS: Medium Hemovac. FINDINGS: Stable soft tissue bed, no gross purulence, no significant fluid collections, no evidence of spinal fluid leaks, presence of mild subcutaneous and fascial necrotic tissue. FLUIDS: Per anesthesia record. BRIEF HISTORY AND INDICATIONS: The patient is a 68-year-old male, who had undergone a successful L4-L5 lumbar TLIF procedure on 05/13/2019 at [facility] per myself. The patient had developed acute respiratory distress on postoperative day 1 of his surgery and therefore was subsequently transferred to [facility] where he was reintubated and completed a short intensive care unit stay. The patient was subsequently transferred to [facility] where he remained on the vent for approximately three and half weeks. He was subsequently transferred back to the [facility] Unit for extended inpatient rehabilitation. During this course, the patient had developed significant persistent serosanguineous drainage and dehiscence from his lumbar surgical wound. The patient failed an attempt at nonsurgical management with wound VAC placement. As such, the patient was consented for formal debridement of his lumbar wound infection in the operating room. I discussed the treatment plan with the patient in detail preoperatively including the risks, benefits, potential complications, expected outcomes, indications and alternatives. The patient gave informed written consent to proceed as planned after all of his questions were answered to his satisfaction. The risks that were discussed included, but were not limited to significant bleeding, persistent infection, damage to surrounding neurovascular and soft tissue structures, paralysis, potential serious reactions to anesthesia including and potential need for secondary surgical debridements and/or lumbar surgical procedures. PROCEDURE NOTE: After the patient was correctly identified as the patient in the preoperative holding area and after his operative site was appropriately marked, he was transferred to the operating room. Once in the operating room, he had successful induction of general endotracheal anesthesia and he was transferred to [facility] and placed in the prone position. All bony prominences were meticulously padded. Bilateral upper extremities were placed in the safe position. The operative site was prepped and draped in routine sterile fashion. Prior to beginning the case, we completed an operating room timeout with all parties involved in the case and agreement. No prophylactic antibiotics were used as the patient had been on scheduled IV antibiotic therapy. Using the previous lumbar surgical incision, a 10 blade scalpel was used to incise through the skin and subcutaneous tissue. The superficial proximal dehiscence in the skin was excised with a 10 blade scalpel back to healthy skin. As dissection continued into the subcutaneous tissue, we did encounter some necrotic subcutaneous tissue, which was debrided with both sharp and blunt technique with 10 blade scalpel and Leksell rongeurs. As dissection was carried deeper to the fascia, we also did encounter some necrotic appearing fascia, which was also excised with both sharp and blunt technique. The overall soft tissue bed was healthy in appearance, we did not encounter any significant fluid collections or gross purulence. We did not encounter any spinal fluid leaks. The dissection was carried out deep enough and lateral enough to expose the hardware laterally, which was quite stable. At this point, the wound was irrigated with 6 liters of sterile saline with antibiotic solution with pulse lavage. Subsequent to irrigation, any additional encountered necrotic subcutaneous and fascial tissue was debrided in like fashion. A medium Hemovac drain was then placed deep to the fascia and then the wound was closed in layers in standard fashion using 0 PDS for the deep fascia, 2-0 PDS for the subcutaneous tissue and a 2-0 nylon interrupted horizontal mattress stitch for the skin. The patient had a sterile dressing applied and was awakened and extubated in the operating room without incident. He was then transferred to the PACU in stable condition and he had tolerated the procedure quite well without complications. All counts were correct at the end of the case. PLAN: The patient will continue inpatient rehabilitation, activities as tolerated. He will continue empiric IV antibiotic therapy as managed per the internal medicine team. We will monitor this wound quite closely and proceed with additional debridements if needed. Job ID: [id number] DocumentID: [id number] Dictated Date: 07/29/2019 16:38:09 Film Writer Date: 07/30/2019 00:50:30 Dictated By: OTILIO WELCH
== END ==
LOC: SDC 09:42
PROVIDERS: ATTEND Orthopaedic Surgery Orthopaedic Trauma
DX: T81.49XA Infection following a procedure, other surgical site, initial encounter (principal); I11.0 Hypertensive heart disease with heart failure; I25.10 Atherosclerotic heart disease of native coronary artery without angina pectoris; I50.9 Heart failure, unspecified; I73.9 Peripheral vascular disease, unspecified; G47.33 Obstructive sleep apnea (adult) (pediatric); E66.01 Morbid (severe) obesity due to excess calories; Z11.9 Encounter for screening for infectious and parasitic diseases, unspecified; G62.9 Polyneuropathy, unspecified; J44.9 Chronic obstructive pulmonary disease, unspecified; J96.00 Acute respiratory failure, unspecified whether with hypoxia or hypercapnia; F17.210 Nicotine dependence, cigarettes, uncomplicated; E78.00 Pure hypercholesterolemia, unspecified; K59.00 Constipation, unspecified; K21.9 Gastro-esophageal reflux disease without esophagitis; M19.90 Unspecified osteoarthritis, unspecified site; G89.29 Other chronic pain; M54.9 Dorsalgia, unspecified; Z99.89 Dependence on other enabling machines and devices; Z79.891 Long term (current) use of opiate analgesic; Z79.899 Other long term (current) drug therapy; Z79.4 Long term (current) use of insulin; Z79.01 Long term (current) use of anticoagulants; Z95.1 Presence of aortocoronary bypass graft

== ENCOUNTER 2019-07-30 13:45 | Inpatient (IN) | payer MEDICARE, OTHER | END 2019-08-03 12:45 | disposition short-term general hospital, planned readmission (82) | LOC: ICU 13:45 → 4TH 07-31 11:14 | DX: I13.0 Hypertensive heart and chronic kidney disease with heart failure and stage 1 through stage 4 chronic kidney disease, or unspecified chronic kidney disease (principal); I50.33 Acute on chronic diastolic (congestive) heart failure; N18.3 Chronic kidney disease, stage 3 (moderate); I21.A1 Myocardial infarction type 2; J18.1 Lobar pneumonia, unspecified organism; J81.0 Acute pulmonary edema; N17.9 Acute kidney failure, unspecified; E66.2 Morbid (severe) obesity with alveolar hypoventilation; Z68.41 Body mass index [BMI] 40.0-44.9, adult; J96.20 Acute and chronic respiratory failure, unspecified whether with hypoxia or hypercapnia; D64.9 Anemia, unspecified; J44.9 Chronic obstructive pulmonary disease, unspecified; I25.10 Atherosclerotic heart disease of native coronary artery without angina pectoris; E11.40 Type 2 diabetes mellitus with diabetic neuropathy, unspecified; E11.51 Type 2 diabetes mellitus with diabetic peripheral angiopathy without gangrene; N31.9 Neuromuscular dysfunction of bladder, unspecified; R53.81 Other malaise; F17.200 Nicotine dependence, unspecified, uncomplicated; N40.0 Benign prostatic hyperplasia without lower urinary tract symptoms; R33.9 Retention of urine, unspecified; F32.9 Major depressive disorder, single episode, unspecified; E78.00 Pure hypercholesterolemia, unspecified; K21.9 Gastro-esophageal reflux disease without esophagitis; K59.09 Other constipation; M19.91 Primary osteoarthritis, unspecified site; E87.5 Hyperkalemia; Z99.81 Dependence on supplemental oxygen; Z95.1 Presence of aortocoronary bypass graft; Z91.19 Patient's noncompliance with other medical treatment and regimen ==

== ENCOUNTER 2021-05-15 16:03 | Inpatient (IN) | payer MEDICARE, OTHER ==
[~2021-05-15] VITALS: Ht 182.9 cm; Wt 133.7 kg
[~2021-05-15 16:03] MED LIST changes: -ACETAMINOPHEN 325 MG TABLET PO PRN; +ACHD5005 PO; +ALPR.25T PO; -ALPR0.254 PO; +AMLO-251 PO; -AMLO10TA7 PO; +ASPI-1238 PO; -ASPI-983 PO; -GENTAMICIN 40 MG/ML 2 ML INJ SDV ONE; -GLIM4TAB PO; +GLIM4TAB5 PO; -HYDR-3812 PO; -HYDROcodone/APAP 5 MG/325 MG (LORTAB) TAB PO PRN; -LACTATED RINGERS 1,000 ML IV PRN; -LISI10TA2 PO; +LISI10TA25 PO; -METOCLOPRAMIDE 10 MG (REGLAN) TAB PO PRN; -METOCLOPRAMIDE INJ 10 MG/2 ML (REGLAN) IV PRN; +MULT-567 PO; -MULT1TAB69 PO; -ONDANSETRON 4 MG/2 ML (SDV) Z0FRAN IV ONE; -ONDANSETRON 4 MG/2 ML (SDV) Z0FRAN IV PRN; -PANT40TA3 PO; +PANT40TA52 PO; -POLY17PO31 PO; +POLY17PO54 PO; -PROMETHAZINE 25 MG (PHENERGAN) TAB PO PRN; +QUET25TA34 PO; -QUET25TA73 PO; +QUET50TA22 PO; -QUET50TA55 PO; -SENN-141 PO; +SENN-234 PO; -TAMS0.4C98 PO; +TMSL.4C PO; -VANCOMYCIN 1000 MG/VIAL ONE; -fentaNYL INJECTION 100 MCG/2 ML AMP IVP ONE; -morphine INJ 10 MG/ML 1ML (SYR OR VIAL) IVP ONE; -morphine INJ 10 MG/ML 1ML (SYR OR VIAL) IVP STA
[2021-05-15] MEDS ORDERED: PHARMACY TO DOSE IV SCH (18:30)
--- NOTE | 2021-05-15 18:30 | History & Physical-Hospitalist ---
History of Present Illness HPI/Chief Complaint Chief complaint: Respiratory failure requiring intubation due to CO2 narcosis and respiratory acidosis History of present illness: This is a 70-year-old white male known to me from inpatient rehab admission nearly 2 years ago after a long course at [facility] when he remained ventilator dependent and then stayed 3 weeks in inpatient rehab before requiring penitentiary admission who presented to [facility] [place] [facility] with strokelike symptoms patient was found to have no evidence of a stroke but ABG revealed CO2 narcosis retention with respiratory acidosis with CO2 level of 92. Patient was placed on BiPAP but failed that so he was intubated central line was placed arterial line was placed Alves catheter placed and stabilized given cefepime and vancomycin to treat early pneumonia in addition to Diprivan for conscious sedation with gentle IV fluids and patient will be monitored closely in the ICU. Daughter was at the bedside at [facility]. 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 He remains a full code. He has not used his CPAP machine for many years. He keeps it in the closet. PMH: Diabetes mellitus on oral therapy, obstructive sleep apnea, COPD with chronic respiratory failure, polycythemia due to chronic respiratory failure, tobacco use, chronic low back pain, peripheral neuropathy, PVD, CAD previous bypass surgery, thrombocytopenia, morbid obesity with hypoventilation syndrome, congestive heart failure with acute on chronic diastolic type with volume overload at admission to [facility], hyperlipidemia, hypertension, carpal tunnel syndrome, severe DJD of the right knee, SVT. Source: RN/MD Exam Limitations: clinical condition (Intubated) Date Seen 05/15/21 Time Seen by a Provider: 19:30 Attending Physician Cintia Law Lisa A MD Referring Physician Date of Admission Home Medications & Allergies Home Medications Reviewed patient Home Medication Reconciliation performed by pharmacy medication reconciliations accredited pharmacy technician and/or nursing. Patients Allergies have been reviewed. Allergies Allergies Coded Allergies No Known Drug Allergies (Verified05/17/19) Past Edowbgl-Fynera-Wzspqa Hx Patient Social History Marrital Status: single Employed/Student: unemployed Smoking Status: Former Smoker Immunizations Up To Date Tetanus Booster (TDap): Unknown Date of Pneumonia Vaccine: Jul 15, 2018 Seasonal Allergies Seasonal Allergies: No Current Status Primary Language: Romansh Past Medical History Surgeries: CABG, Orthopedic Chronic Bronchitis, Sleep Apnea, COPD Currently Using CPAP: Yes Currently Using BIPAP: No Chronic Edema/Swelling, Coronary Artery Disease, High Cholesterol, Hypertension, Peripheral Vascular Neuropathy Benign Prostatic Hyperpl, Bladder Infection Gastroesophageal Reflux, Chronic Constipation Degenerate Disk Disease, Arthritis, Chronic Back Pain Diabetes, Non-Insulin dep Blood Disorders: No Adverse Reaction/Blood Tranf: No Family Medical History No Pertinent Family Hx Review of Systems Constitutional: see HPI Physical Exam Physical Exam Vital Signs Vital Signs - First Documented 05/15/21 05/15/21 19:05 21:37 Temp 36.5 Pulse 60 Resp 14 B/P (MAP) 128/45 Pulse Ox 98 O2 Delivery Mechanical Ventilator O2 Flow Rate 60.00 FiO2 60 Capillary Refill : Height, Weight, BMI Height: 5'10.00" Weight: 278lbs. 9.6oz. 126.844028aq; 39.9 BMI Method:Stated General Appearance: No Apparent Distress, WD/WN, Chronically ill, Obese, Other (Sedated on ventilator) Respiratory: No Accessory Muscle Use, No Respiratory Distress, Decreased Breath Sounds Cardiovascular: Regular Rate, Rhythm Results Results/Procedures Labs Laboratory Tests 05/15/21 20:27 05/16/21 02:55 Patient resulted labs reviewed. Assessment/Plan Admission Diagnosis Assessment: Acute on chronic hypoxic hypercapnic respiratory failure Ventilator dependent respiratory failure status post intubation and [facility] ER Early pneumonia on chest x-ray Severe sleep apnea/obesity hypoventilation syndrome noncompliant with CPAP/BiPAP CAD previous bypass Cardiomyopathy Hypertension Diabetes Plan: Antibiotics Ventilator eICU consult appreciated Cardiology consult in the morning Echocardiogram Monitor labs Admission Status: Inpatient Order (span 2 midnights) Reason for Inpatient Admission: Vent dependent respiratory failure Diagnosis/Problems Diagnosis/Problems (1) Respiratory failure, acute and chronic (2) Hx of CABG (3) Acute on chronic diastolic heart failure with preserved ejection fraction Status: Acute (4) Hx of supraventricular tachycardia (5) BPH (benign prostatic hyperplasia) (6) Obesity Status: Chronic (7) Hypertension Status: Chronic (8) PVD (peripheral vascular disease) Status: Chronic (9) Renal insufficiency Status: Chronic (10) Neuropathy Status: Chronic (11) Hyperlipemia Status: Chronic (12) CAD (coronary artery disease) Status: Chronic (13) Noncompliance Status: Chronic CINTIA LAW DO May 15, 2021 18:30
[2021-05-15 19:16] VITALS: BP 162/46
--- NOTE | 2021-05-15 19:56 | Pulmonary Consultation ---
History of Present Illness History of Present Illness Date Seen by Provider: May 15, 2021 Time Seen by Provider: 19:51 Date of Admission 70 y/o male with chronic trach and respiratory failure transfered from [facility] on vent rate of 14/ FIO2 60%, PEEP 5, TV 500 Patient is morbidly obese and being evaluated for PNA. Cefipime started Sedation ordered with fentanyl and propofol CXR and ABG pending LABS: WBC 11.3 Hgb: 10.9 Plts: 329 Na 142 K: 5.2 Cl: 102 CO2 30 BUN: 54 Creat: 1.26 Glu: 284 PLAN: lactate level Blood cultures sliding scal insulin coverage Allergies and Home Medications Allergies Coded Allergies: No Known Drug Allergies (Verified , 05/17/19) Home Medications Albuterol Sulfate 2.5 Mg/0.5 Ml Vial.neb, 2.5 MG INH Q4H PRN for SHORTNESS OF BREATH, (Reported) Albuterol Sulfate 1 Puff Puff, 2 PUFF IH Q4H PRN for SHORTNESS OF BREATH, (Reported) Aspirin 81 Mg Tablet.dr, 81 MG PO DAILY, (Reported) Bumetanide 1 Mg/4 Ml Inj, 1 MG IV DAILY Prescribed by: JASPER LONG on 05/18/211108 Cefepime HCl 2 Gm Vial, 2 GM IV BID Prescribed by: JASPER LONG on 05/18/211108 Clopidogrel Bisulfate 75 Mg Tablet, 75 MG PO DAILY, (Reported) Diclofenac Sodium 100 Gm Gel..gram., 1 APPLIC TP QID, (Reported) Enoxaparin Sodium 40 Mg/0.4 Ml Syringe, 40 MG SC Q24H Prescribed by: JASPER LONG on 05/18/211108 Fentanyl Citrate-0.9 % NaCl/Pf 10 Mcg/1 Ml Plast..bag, 10 MCG IV UD Prescribed by: JASPER LONG on 05/18/211108 Furosemide 40 Mg Tablet, 40 MG PO DAILY, (Reported) Gabapentin 300 Mg Capsule, 600 MG PO BID, (Reported) TAKES 2 (300MG) CAPS Glimepiride 2 Mg Tablet, 2 MG PO DAILY, (Reported) Guaifenesin 600 Mg Tab.er.12h, 600 MG PO BID PRN for CONGESTION, (Reported) Hydrocodone/Acetaminophen 1 Each Tablet, 1 EA PO BID PRN for PAIN-MODERATE (5- 7), (Reported) Ipratropium/Albuterol Sulfate 3 Ml Ampul.neb, 3 ML INH RTQ4HR Prescribed by: JASPER LONG on 05/18/211108 Levetiracetam 500 Mg/5 Ml Vial, 1,000 MG IV BID Prescribed by: JASPER LONG on 05/18/211108 Lorazepam 2 Mg/1 Ml Vial, 2 MG IJ iv Prescribed by: JASPER LONG on 05/18/211108 Metformin HCl 500 Mg Tablet, 500 MG PO HS, (Reported) Metoprolol Tartrate 25 Mg Tablet, 25 MG PO BID, (Reported) Mirtazapine 15 Mg Tablet, 15 MG PO HS, (Reported) Multivitamin with Minerals 1 Each Tablet, 1 TAB PO DAILY, (Reported) Nicardipine HCl 25 Mg/10 Ml Ampul, 25 MG IV UD Prescribed by: JASPER LONG on 05/18/211108 Propofol 10 Mg/1 Ml Vial, 10 MG IV UD Prescribed by: JASPER LONG on 05/18/211108 Sildenafil Citrate 20 Mg Tablet, 20 MG PO TID, (Reported) LAST FILLED 12-24-2020 #270/90 DAY SUPPLY Simvastatin 40 Mg Tablet, 40 MG PO HS, (Reported) Tamsulosin HCl 0.4 Mg Cap, 0.4 MG PO HS, (Reported) Vancomycin/0.9 % Sod Chloride 2 Gm/500 Ml Plast..bag, 2 GM IV DAILY Prescribed by: JASPER LONG on 05/18/211108 Past Medical/Social/Family Hx Immunizations Up To Date Tetanus Booster (TDap): Unknown TB Skin Test: None Date of Pneumonia Vaccine: Jul 15, 2018 Current Status Primary Language: Panamanian Review of Systems Constitutional: No no symptoms reported, No see HPI, No chills, No diaphoresis, No dizziness, No fever, No malaise, No weakness, No weight gain, No weight loss, No other All Other Systems Reviewed Negative Unless Noted: Yes Sepsis Event Evaluation Height, Weight, BMI Height: 5'10.00" Weight: 278lbs. 9.6oz. 126.547110uk; 39.9 BMI Method:Stated Exam Exam Patient acknowledged, consented, and participated in this virtual visit which was conducted using real time audio/video Vital Signs Date Time Temp Pulse Resp B/P (MAP) Pulse Ox O2 Delivery O2 Flow Rate FiO2 05/15/21 19:16 58 14 94 60 Height & Weight Height: 5'10.00" Weight: 278lbs. 9.6oz. 126.717735pi; 39.9 BMI Method:Stated General Appearance: No No Apparent Distress, No WD/WN, No Anxious, No Chronically ill, No Cachetic, No Mild Distress, No Moderate Distress, No Obese, No Severe Distress, No Thin, No Other Assessment/Plan Assessment/Plan video assessment SHANNAN DOAN MD May 15, 2021 19:55
[2021-05-15 20:40] LABS: ABG BASE EXCESS 7.8 MMOL/L (-2.5-2.5); ABG OXYGEN SATURATION 99 % (94-100); ABG PCO2 57 MMHG (35-45); ABG PH 7.38 (7.37-7.43); ABG PO2 112 MMHG (79-93); ABG TCO2 34.8 MMOL/L (21.0-31.0); BASOPHILS % (AUTO) 0 % (0-10); EOSINOPHILS # (AUTO) 0.2 10^3/uL (0.0-0.3); EOSINOPHILS % (AUTO) 2 % (0-10); HEMATOCRIT 35 % (40-54); HEMOGLOBIN 11.2 g/dL (13.3-17.7); LYMPHOCYTES # (AUTO) 1.9 10^3/uL (1.0-4.0); LYMPHOCYTES % (AUTO) 23 % (12-44); MEAN CORPUSCULAR HEMOGLOBIN 32 pg (25-34); MEAN CORPUSCULAR HGB CONC 32 g/dL (32-36); MEAN CORPUSCULAR VOLUME 99 fL (80-99); MEAN PLATELET VOLUME 10.7 fL (9.0-12.2); MONOCYTES # (AUTO) 0.7 10^3/uL (0.0-1.0); MONOCYTES % (AUTO) 9 % (0-12); NEUTROPHILS # (AUTO) 5.3 10^3/uL (1.8-7.8); NEUTROPHILS % (AUTO) 65 % (42-75); PLATELET COUNT 158 10^3/uL (130-400); WHITE BLOOD COUNT 8.1 10^3/uL (4.3-11.0)
[2021-05-15 20:41] LABS: ALLENS TEST ART LINE
[2021-05-15 20:42] LABS: PATIENT TEMP 36.5; VENTILATOR NO
[2021-05-15 20:44] LABS: INSPIRED O2 NOT INDICATED
[2021-05-15 20:46] LABS: BILIRUBIN,URINE NEGATIVE (NEGATIVE); CLARITY,URINE CLEAR; COLOR,URINE YELLOW; GLUCOSE, URINE (UA) NEGATIVE (NEGATIVE); KETONES,URINE NEGATIVE (NEGATIVE); LEUKOCYTE ESTERASE ,URINE NEGATIVE (NEGATIVE); NITRITE,URINE NEGATIVE (NEGATIVE); PH,URINE 5.5 (5-9); PROTEIN,URINE NEGATIVE (NEGATIVE)
[2021-05-15 20:56] LABS: BACTERIA,URINE NEGATIVE /HPF; HYALINE CASTS, URINE RARE /LPF; RBC,URINE RARE /HPF
[2021-05-15 20:57] LABS: BUN/CREATININE RATIO 18; CALCIUM 8.6 MG/DL (8.5-10.1); CARBON DIOXIDE 30 MMOL/L (21-32); CHLORIDE 102 MMOL/L (98-107); CREATININE SERUM 1.13 MG/DL (0.60-1.30); GFR ESTIMATED > 60; GLUCOSE 122 MG/DL (70-105); MAGNESIUM 1.8 MG/DL (1.6-2.4); POTASSIUM 4.1 MMOL/L (3.6-5.0); SODIUM 142 MMOL/L (135-145)
[2021-05-15] MEDS ORDERED: VANCOMYCIN INJECTION 2,250 MG in NS IV 500 ML 500 ML IV NR (21:00)
[2021-05-15] MEDS: CEFEPIME INJECTION 2,000 MG in WATER (STERILE) FOR INJECTION 20 ML IV SCH (21:33)
[2021-05-15] MEDS: NS IV 1000 ML 1,000 ML IV SCH (21:36)
[2021-05-15] MEDS: ENOXAPARIN 40 MG/0.4 ML (LOVENOX) SYR SC SCH (21:36)
[2021-05-15] MEDS: PROPOFOL DRIP (ICU) 100 ML IV SCH (21:37)
[2021-05-15] MEDS: fentaNYL DRIP PRE-MIX 250 ML IV SCH (21:38)
[2021-05-15 21:46] LABS: ALBUMIN 3.4 GM/DL (3.2-4.5); BILIRUBIN,DIRECT 0.2 MG/DL (0.0-0.3); BILIRUBIN,INDIRECT 0.2 MG/DL; BILIRUBIN,TOTAL 0.4 MG/DL (0.1-1.0); TOTAL PROTEIN 6.1 GM/DL (6.4-8.2)
[2021-05-15 21:49] VITALS: BP 120/41
[2021-05-16] MEDS: PROPOFOL DRIP (ICU) 100 ML IV SCH ×5 (01:31→17:44)
[2021-05-16 01:59] VITALS: BP 125/45
[2021-05-16] MEDS ORDERED: RT-ALBUTEROL/IPRATROPIUM 3 ML (DUONEB) VIAL ONE (02:17)
[2021-05-16 03:06] LABS: BASOPHILS % (AUTO) 0 % (0-10); EOSINOPHILS # (AUTO) 0.2 10^3/uL (0.0-0.3); EOSINOPHILS % (AUTO) 3 % (0-10); HEMATOCRIT 36 % (40-54); HEMOGLOBIN 11.3 g/dL (13.3-17.7); LYMPHOCYTES # (AUTO) 2.8 10^3/uL (1.0-4.0); LYMPHOCYTES % (AUTO) 37 % (12-44); MEAN CORPUSCULAR HEMOGLOBIN 31 pg (25-34); MEAN CORPUSCULAR HGB CONC 31 g/dL (32-36); MEAN CORPUSCULAR VOLUME 100 fL (80-99); MEAN PLATELET VOLUME 10.3 fL (9.0-12.2); MONOCYTES # (AUTO) 0.6 10^3/uL (0.0-1.0); MONOCYTES % (AUTO) 8 % (0-12); NEUTROPHILS # (AUTO) 3.8 10^3/uL (1.8-7.8); NEUTROPHILS % (AUTO) 51 % (42-75); PLATELET COUNT 135 10^3/uL (130-400); WHITE BLOOD COUNT 7.5 10^3/uL (4.3-11.0)
[2021-05-16 03:07] LABS: ABG BASE EXCESS 6.5 MMOL/L (-2.5-2.5); ABG OXYGEN SATURATION 92 % (94-100); ABG PCO2 58 MMHG (35-45); ABG PH 7.36 (7.37-7.43); ABG PO2 62 MMHG (79-93); ABG TCO2 33.6 MMOL/L (21.0-31.0); ALLENS TEST ART LINE; INSPIRED O2 40%; PATIENT TEMP 36.7; VENTILATOR YES
[2021-05-16 03:16] LABS: CHLORIDE 103 MMOL/L (98-107); POTASSIUM 3.8 MMOL/L (3.6-5.0); SODIUM 144 MMOL/L (135-145)
[2021-05-16 03:17] LABS: CALCIUM 8.6 MG/DL (8.5-10.1); GLUCOSE 102 MG/DL (70-105)
[2021-05-16 03:19] LABS: CARBON DIOXIDE 28 MMOL/L (21-32)
[2021-05-16 03:21] LABS: CREATININE SERUM 1.17 MG/DL (0.60-1.30); GFR ESTIMATED > 60; PHOSPHORUS 2.2 MG/DL (2.3-4.7)
[2021-05-16 03:22] LABS: BUN/CREATININE RATIO 18
[2021-05-16 03:23] LABS: MAGNESIUM 1.5 MG/DL (1.6-2.4)
[2021-05-16] MEDS ORDERED: fentaNYL DRIP PRE-MIX 250 ML IV ONE (04:14)
[2021-05-16] MEDS: fentaNYL DRIP PRE-MIX 250 ML IV SCH (04:21)
[2021-05-16] MEDS: KCL 20 MEQ TAB (K-DUR) PO SCH (05:41)
[2021-05-16] MEDS: POTASSIUM CL 10MEQ/50ML IVPB 50 ML IV SCH ×5 (05:41→14:02)
[2021-05-16] MEDS: MAGNESIUM 1 GM/100 ML IVPB 100 ML IV SCH ×3 (05:41→07:21)
--- NOTE | 2021-05-16 06:20 | Progress Note - Hospitalist ---
Subjective HPI/CC On Admission Date Seen by Provider: May 16, 2021 Time Seen by Provider: 09:00 Chief complaint: Respiratory failure requiring intubation due to CO2 narcosis and respiratory acidosis History of present illness: This is a 70-year-old white male known to me from inpatient rehab admission nearly 2 years ago after a long course at [facility] when he remained ventilator dependent and then stayed 3 weeks in inpatient rehab before requiring assisted admission who presented to [facility] with strokelike symptoms patient was found to have no evidence of a stroke but ABG revealed CO2 narcosis retention with respiratory acidosis with CO2 level of 92. Patient was placed on BiPAP but failed that so he was intubated central line was placed arterial line was placed Alves catheter placed and stabilized given cefepime and vancomycin to treat early pneumonia in addition to Diprivan for conscious sedation with gentle IV fluids and patient will be monitored closely in the ICU. Daughter was at the bedside at [facility]. 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 He remains a full code. He has not used his CPAP machine for many years. He keeps it in the closet. PMH: Diabetes mellitus on oral therapy, obstructive sleep apnea, COPD with chronic respiratory failure, polycythemia due to chronic respiratory failure, tobacco use, chronic low back pain, peripheral neuropathy, PVD, CAD previous bypass surgery, thrombocytopenia, morbid obesity with hypoventilation syndrome, congestive heart failure with acute on chronic diastolic type with volume overload at admission to [facility], hyperlipidemia, hypertension, carpal tunnel syndrome, severe DJD of the right knee, SVT. Subjective/Events-last exam Pt had a pretty complicated imagery analyst when he started having seizures They did call a code blue because they felt like he had lost a pulse and CPR was initiated Cardene drip is now restarted and he did have another seizure, Ativan given so Ativan drip given PH was 7.08 consistent with CO2 narcosis and respiratory acidosis that lowered the seizure threshold Updated the daughter Really needs DNR Palliative care on board Review of Systems Neurological: Seizures Focused Exam Lactate Level 05/15/21 20:27: Lactic Acid Level 1.49 Objective Exam Vital Signs Vital Signs Date Time Temp Pulse Resp B/P (MAP) Pulse Ox O2 Delivery O2 Flow Rate FiO2 05/17/21 04:01 74 211/55 05/16/21 23:59 95 Mechanical Ventilator 60 05/16/21 23:00 19 70.00 05/16/21 13:00 36.9 Capillary Refill : General Appearance: No Apparent Distress, WD/WN, Chronically ill, Obese, Other (sedated) Respiratory: Lungs Clear, Other (vent) Cardiovascular: Regular Rate, Rhythm Results/Procedures Lab Laboratory Tests 05/17/21 03:31 Patient resulted labs reviewed. Assessment/Plan Assessment and Plan Assess & Plan/Chief Complaint Assessment: Acute on chronic hypoxic hypercapnic respiratory failure Ventilator dependent respiratory failure status post intubation and [facility] ER Early pneumonia on chest x-ray Severe sleep apnea/obesity hypoventilation syndrome noncompliant with CPAP/BiPAP CAD previous bypass Cardiomyopathy Hypertension Diabetes Seizures 05/16/21 s/p code blue 05/16/21 Plan: Antibiotics Ventilator eICU consult appreciated Cardiology consult in the morning Echocardiogram Monitor labs 05/16/21: Ativan drip for seizures from respiratory acidosis Vent management Poor prognosis given so many hospital stays for same reason non-compliance with CPAP and CO2 narcosis Diagnosis/Problems Diagnosis/Problems (1) Respiratory failure, acute and chronic (2) Hx of CABG (3) Acute on chronic diastolic heart failure with preserved ejection fraction Status: Acute (4) Hx of supraventricular tachycardia (5) BPH (benign prostatic hyperplasia) (6) Obesity Status: Chronic (7) Hypertension Status: Chronic (8) PVD (peripheral vascular disease) Status: Chronic (9) Renal insufficiency Status: Chronic (10) Neuropathy Status: Chronic (11) Hyperlipemia Status: Chronic (12) CAD (coronary artery disease) Status: Chronic (13) Noncompliance Status: Chronic JASPER LONG DO May 16, 2021 06:20
[2021-05-16] MEDS: NS IV 1000 ML 1,000 ML IV SCH ×2 (06:34→21:13)
[2021-05-16] MEDS: RT-ALBUTEROL/IPRATROPIUM 3 ML (DUONEB) VIAL INH SCH ×5 (06:40→22:22)
[2021-05-16 06:44] VITALS: BP 125/40
--- NOTE | 2021-05-16 06:54 | Occ Therapy Progress Note ---
Therapy Progress Note Pt is currently intubated. OT will continue to monitor pt status and initiate treatment when pt is medically stable and able to actively participate with skilled therapy. AMANDA WEINER May 16, 2021 06:54
--- NOTE | 2021-05-16 07:31 | Diagnostic Imaging Report ---
EXAMINATION: Chest 1 view HISTORY: Dyspnea COMPARISON: 07/30/2019 FINDINGS: Heart size is enlarged with findings of pulmonary vascular congestion. Endotracheal tube is present and appears to be above the andi. A right IJ central line is present with the tip projecting over the atriocaval junction. There are low lung volumes bilaterally. There are patchy interstitial opacities throughout both lungs. No significant pleural effusion or pneumothorax. Surgical changes from median sternotomy. IMPRESSION: 1. Low lung volumes with patchy interstitial opacities throughout both lungs. Findings could represent pulmonary edema, atelectasis, or pneumonia. 2. Medical support lines and tubes in appropriate position. 3. Cardiomegaly. Dictated by: Dictated on workstation # [id number]
[2021-05-16] MEDS ORDERED: LORazepam INJ 2 MG/ML (ATIVAN) VIAL ONE ×2 (07:37→08:15)
--- NOTE | 2021-05-16 07:53 | Pulmonary Progress Note ---
Subjective Date Seen by a Provider: May 16, 2021 Time Seen by a Provider: 07:48 Subjective/Events-last exam called for Sz like activity in face and arms, intubated for hypercarbic resp failure, On Fentanyl 125 and Propofol 40, orally intubated no problem with ET tube or suctioning, good BS both lungs I viewed what looks like mild Sz activity, will give 1 mg IVP Ativan and repat x 1, BP has been ok will check prolactin level Sidney Parikh MD Sepsis Event Evaluation Height, Weight, BMI Height: 5'10.00" Weight: 278lbs. 9.6oz. 126.922225on; 39.54 BMI Method:Stated Focused Exam Lactate Level 05/15/21 20:27: Lactic Acid Level 1.49 Exam Exam Patient acknowledged, consented, and participated in this virtual visit which was conducted using real time audio/video Vital Signs Date Time Temp Pulse Resp B/P (MAP) Pulse Ox O2 Delivery O2 Flow Rate FiO2 05/16/21 07:34 57 204/57 05/16/21 07:27 94 Mechanical Ventilator 40 05/16/21 06:44 50 14 95 40 05/16/21 06:34 49 129/42 05/16/21 06:00 51 13 95 Mechanical Ventilator 40.00 05/16/21 05:00 53 14 94 Mechanical Ventilator 40.00 05/16/21 04:20 56 156/43 05/16/21 04:00 93 Mechanical Ventilator 40 05/16/21 04:00 55 14 93 Mechanical Ventilator 40.00 05/16/21 03:00 57 13 92 Mechanical Ventilator 40.00 05/16/21 02:05 48 14 96 Mechanical Ventilator 40.00 05/16/21 02:00 48 29 97 Mechanical Ventilator 50.00 05/16/21 01:59 49 14 96 40 05/16/21 01:31 49 127/46 05/16/21 01:00 47 13 98 Mechanical Ventilator 50.00 05/16/21 01:00 47 05/16/21 00:00 50 13 97 Mechanical Ventilator 50.00 05/15/21 23:59 97 Mechanical Ventilator 50 05/15/21 23:00 50 14 96 Mechanical Ventilator 50.00 05/15/21 22:10 52 14 95 Mechanical Ventilator 50.00 05/15/21 22:00 52 13 95 Mechanical Ventilator 60.00 05/15/21 21:49 51 14 96 50 05/15/21 21:37 53 128/45 05/15/21 21:00 51 13 98 Mechanical Ventilator 60.00 05/15/21 20:13 36.5 05/15/21 20:00 54 8 98 Mechanical Ventilator 60.00 05/15/21 19:45 57 14 97 Mechanical Ventilator 60.00 05/15/21 19:21 58 94 60 05/15/21 19:20 58 05/15/21 19:16 58 14 94 60 05/15/21 19:15 58 97 Mechanical Ventilator 60.00 05/15/21 19:05 36.5 60 14 98 Mechanical Ventilator 60.00 05/15/21 19:05 98 Mechanical Ventilator 60 I & O 05/16/21 07:00 Intake Total 0 ml Output Total 1330 ml Balance -1330 ml Height & Weight Height: 5'10.00" Weight: 278lbs. 9.6oz. 126.668554xg; 39.54 BMI Method:Stated General Appearance: No Apparent Distress, WD/WN, Chronically ill, Obese, Other (Sedated on ventilator) Respiratory: No Accessory Muscle Use, No Respiratory Distress, Decreased Breath Sounds Cardiovascular: Regular Rate, Rhythm Neurologic/Psychiatric: Other Other comments ? Sz activity Results Lab Laboratory Tests 05/15/21 20:27 05/16/21 02:55 Assessment/Plan Assessment/Plan ? Sz activity, not full blown Sz Will give 1 mg IVP Ativan and repeat if needed, check prolactin level Time spent with patient (mins): 10 SHANNAN PARIKH MD May 16, 2021 07:53
[2021-05-16] MEDS ORDERED: LORazepam INJ 2 MG/ML (ATIVAN) VIAL IVP ONE (08:00)
--- NOTE | 2021-05-16 08:07 | Physical Therapy Progress Note ---
Therapy Progress Note Order for evaluation received. Patient is currently intubated and this therapist just heard a code blue for this patient on the overhead. Will hold for now and monitor patient condition and start when appropriate. BRIDGETTE CAT PT May 16, 2021 08:07
[2021-05-16] MEDS: LEVETIRACETAM 1,000 MG/NS 100 ML IVPB IV SCH ×4 (08:21→21:10)
--- NOTE | 2021-05-16 08:28 | Code Blue Response-Hospitalist ---
General Date Seen/Responded 05/16/21 History of Present Illness Time seen by provider: 08:05 Allergies and Home Medications Allergies Coded Allergies: No Known Drug Allergies (Verified , 05/17/19) Home Medications Albuterol Sulfate 2.5 Mg/0.5 Ml Vial.neb, 2.5 MG INH Q4H PRN for SHORTNESS OF BREATH, (Reported) Albuterol Sulfate 1 Puff Puff, 2 PUFF IH Q4H PRN for SHORTNESS OF BREATH, (Reported) Aspirin 81 Mg Tablet.dr, 81 MG PO DAILY, (Reported) Clopidogrel Bisulfate 75 Mg Tablet, 75 MG PO DAILY, (Reported) Diclofenac Sodium 100 Gm Gel..gram., 1 APPLIC TP QID, (Reported) Furosemide 40 Mg Tablet, 40 MG PO DAILY, (Reported) Gabapentin 300 Mg Capsule, 600 MG PO BID, (Reported) TAKES 2 (300MG) CAPS Glimepiride 2 Mg Tablet, 2 MG PO DAILY, (Reported) Guaifenesin 600 Mg Tab.er.12h, 600 MG PO BID PRN for CONGESTION, (Reported) Hydrocodone/Acetaminophen 1 Each Tablet, 1 EA PO BID PRN for PAIN-MODERATE (5- 7), (Reported) Metformin HCl 500 Mg Tablet, 500 MG PO HS, (Reported) Metoprolol Tartrate 25 Mg Tablet, 25 MG PO BID, (Reported) Mirtazapine 15 Mg Tablet, 15 MG PO HS, (Reported) Multivitamin with Minerals 1 Each Tablet, 1 TAB PO DAILY, (Reported) Sildenafil Citrate 20 Mg Tablet, 20 MG PO TID, (Reported) LAST FILLED 12-24-2020 #270/90 DAY SUPPLY Simvastatin 40 Mg Tablet, 40 MG PO HS, (Reported) Tamsulosin HCl 0.4 Mg Cap, 0.4 MG PO HS, (Reported) Physical Exam Vital Signs Vital Signs - First Documented 05/15/21 05/15/21 19:05 21:37 Temp 36.5 Pulse 60 Resp 14 B/P (MAP) 128/45 Pulse Ox 98 O2 Delivery Mechanical Ventilator O2 Flow Rate 60.00 FiO2 60 Capillary Refill : Height, Weight, BMI Height: 5'10.00" Weight: 278lbs. 9.6oz. 126.165437od; 39.54 BMI Method:Stated General Appearance: other Procedures/Interventions Date of ETT Placement: May 15, 2021 Tube Size: 8.00 Critical Care Note Critical Care Start Time: 08:05 Stop Time: 08:26 Progress Called to beside as I was rounding on other patients in the ICU. Patient has noticed to be convulsing and was just given Ativan by eICU without improvement. Shortly after lost a pulse. CPR immediately started per ACLS guidelines with high quality chest compressions and backboard in place. As soon as AED attached rhythm check revealed possible v-fib. Shock delivered. CPR resumed. He was given epi in the timeframe as well. He was also give 4mg of ativan do to persistent convulsions. Shortly afterwards ROSC was obtained. He continued to convulse and 2mg Ativan ordered along with 1g of Keppra. Dr Peter at bedside as well maria antonia GODOEN. I called and updated Dr Núñez with eICU and Dr Law who is primary hospitalist. Verbal order given to labs and abg to be called to primary. Progress/Results/Core Measures Results/Orders Lab Results Laboratory Tests Test 05/15/21 20:27 05/15/21 20:40 05/16/21 02:55 05/16/21 07:41 Range/Units White Blood Count 8.1 7.5 4.3-11.0 10^3/uL Red Blood Count 3.56 L 3.64 L 4.30-5.52 10^6/uL Hemoglobin 11.2 L 11.3 L 13.3-17.7 g/dL Hematocrit 35 L 36 L 40-54 % Mean Corpuscular Volume 99 100 H 80-99 fL Mean Corpuscular Hemoglobin 32 31 25-34 pg Mean Corpuscular Hemoglobin Concent 32 31 L 32-36 g/dL Red Cell Distribution Width 14.1 14.0 10.0-14.5 % Platelet Count 158 135 130-400 10^3/uL Mean Platelet Volume 10.7 10.3 9.0-12.2 fL Immature Granulocyte % (Auto) 1 1 % Neutrophils (%) (Auto) 65 51 42-75 % Lymphocytes (%) (Auto) 23 37 12-44 % Monocytes (%) (Auto) 9 8 0-12 % Eosinophils (%) (Auto) 2 3 0-10 % Basophils (%) (Auto) 0 0 0-10 % Neutrophils # (Auto) 5.3 3.8 1.8-7.8 10^3/uL Lymphocytes # (Auto) 1.9 2.8 1.0-4.0 10^3/uL Monocytes # (Auto) 0.7 0.6 0.0-1.0 10^3/uL Eosinophils # (Auto) 0.2 0.2 0.0-0.3 10^3/uL Basophils # (Auto) 0.0 0.0 0.0-0.1 10^3/uL Immature Granulocyte # (Auto) 0.1 0.1 0.0-0.1 10^3/uL Blood Gas Puncture Site ART LINE ART LINE Blood Gas Patient Temperature 36.5 36.7 Arterial Blood pH 7.38 7.36 L 7.37-7.43 Arterial Blood Partial Pressure CO2 57 H 58 H 35-45 MMHG Arterial Blood Partial Pressure O2 112 H 62 L 79-93 MMHG Arterial Blood HCO3 33 H 32 H 23-27 MMOL/L Arterial Blood Total CO2 34.8 H 33.6 H 21.0-31.0 MMOL/L Arterial Blood Oxygen Saturation 99 92 L 94-100 % Arterial Blood Base Excess 7.8 H 6.5 H -2.5-2.5 MMOL/L Maurisio Test ART LINE ART LINE Blood Gas Ventilator Setting NO YES Blood Gas Inspired Oxygen NOT INDICATED 40% Sodium Level 142 144 135-145 MMOL/L Potassium Level 4.1 3.8 3.6-5.0 MMOL/L Chloride Level 102 103 98-107 MMOL/L Carbon Dioxide Level 30 28 21-32 MMOL/L Anion Gap 10 13 5-14 MMOL/L Blood Urea Nitrogen 20 H 21 H 7-18 MG/DL Creatinine 1.13 1.17 0.60-1.30 MG/DL Estimat Glomerular Filtration Rate > 60 > 60 BUN/Creatinine Ratio 18 18 Glucose Level 122 H 102 70-105 MG/DL Lactic Acid Level 1.49 0.50-2.00 MMOL/L Calcium Level 8.6 8.6 8.5-10.1 MG/DL Phosphorus Level 2.0 L 2.2 L 2.3-4.7 MG/DL Magnesium Level 1.8 1.5 L 1.6-2.4 MG/DL Total Bilirubin 0.4 0.1-1.0 MG/DL Direct Bilirubin 0.2 0.0-0.3 MG/DL Indirect Bilirubin 0.2 MG/DL Aspartate Amino Transf (AST/SGOT) 23 5-34 U/L Alanine Aminotransferase (ALT/SGPT) 21 0-55 U/L Alkaline Phosphatase 69 40-136 U/L Total Protein 6.1 L 6.4-8.2 GM/DL Albumin 3.4 3.2-4.5 GM/DL Urine Color YELLOW Urine Clarity CLEAR Urine pH 5.5 5-9 Urine Specific [place] 1.015 L 1.016-1.022 Urine Protein NEGATIVE NEGATIVE Urine Glucose (UA) NEGATIVE NEGATIVE Urine Ketones NEGATIVE NEGATIVE Urine Nitrite NEGATIVE NEGATIVE Urine Bilirubin NEGATIVE NEGATIVE Urine Urobilinogen 0.2 < = 1.0 MG/DL Urine Leukocyte Esterase NEGATIVE NEGATIVE Urine RBC (Auto) TRACE-I NEGATIVE Urine RBC RARE /HPF Urine WBC NONE /HPF Urine Crystals NONE /LPF Urine Bacteria NEGATIVE /HPF Urine Casts PRESENT /LPF Urine Hyaline Casts RARE /LPF Urine Mucus NEGATIVE /LPF Urine Culture Indicated NO Triglycerides Level 419 H <150 MG/DL Glucometer 103 70-110 MG/DL Test 05/16/21 08:19 05/16/21 08:28 05/16/21 09:34 05/16/21 11:45 Range/Units Blood Gas Puncture Site LT RADIAL LT RADIAL ARTLINE Blood Gas Patient Temperature 35.5 36.5 Arterial Blood pH 7.08 *L 7.20 *L 7.37-7.43 Arterial Blood Partial Pressure CO2 86 *H 72 *H 35-45 MMHG Arterial Blood Partial Pressure O2 226 H 190 H 79-93 MMHG Arterial Blood HCO3 25 27 23-27 MMOL/L Arterial Blood Total CO2 27.9 29.4 21.0-31.0 MMOL/L Arterial Blood Oxygen Saturation 99 100 94-100 % Arterial Blood Base Excess -4.2 L -0.1 -2.5-2.5 MMOL/L Maurisio Test YES-POS ART LINE Blood Gas Ventilator Setting YES YES Blood Gas Inspired Oxygen 40% 100% Glucometer 163 H 70-110 MG/DL Test 05/16/21 12:47 Range/Units Blood Gas Puncture Site Lt RAD ARTLINE Blood Gas Patient Temperature 38.6 Arterial Blood pH 7.24 *L 7.37-7.43 Arterial Blood Partial Pressure CO2 58 H 35-45 MMHG Arterial Blood Partial Pressure O2 123 H 79-93 MMHG Arterial Blood HCO3 24 23-27 MMOL/L Arterial Blood Total CO2 25.8 21.0-31.0 MMOL/L Arterial Blood Oxygen Saturation 99 94-100 % Arterial Blood Base Excess -2.3 -2.5-2.5 MMOL/L Maurisio Test ART LINE Blood Gas Ventilator Setting YES Blood Gas Inspired Oxygen 100 My Orders Orders - CHARLES FRAZIER MD Levetiracetam Injection (Keppra Injectio (05/16/21 09:00) Arterial Blood Gas (05/16/21 08:29) Arterial Blood Draw (05/16/21 08:29) Medications Given in ED Current Medications Medications Dose Ordered Sig/Stevie Route Start Time Stop Time Status Last Admin Dose Admin Lorazepam 1 mg ONCE ONCE IVP 05/16/21 08:00 05/16/21 08:01 DC 05/16/21 07:58 1 MG Vital Signs/I&O 05/15/21 05/15/21 05/15/21 05/15/21 19:05 19:05 19:15 19:16 Temp 36.5 Pulse 60 58 58 Resp 14 14 B/P (MAP) Pulse Ox 98 98 97 94 O2 Delivery Mechanical Ventilator Mechanical Ventilator Mechanical Ventilator O2 Flow Rate 60.00 60.00 FiO2 60 60 05/15/21 05/15/21 05/15/21 05/15/21 19:20 19:21 19:45 20:00 Pulse 58 58 57 54 Resp 14 8 B/P (MAP) Pulse Ox 94 97 98 O2 Delivery Mechanical Ventilator Mechanical Ventilator O2 Flow Rate 60.00 60.00 FiO2 60 05/15/21 05/15/21 05/15/21 05/15/21 20:13 21:00 21:37 21:49 Temp 36.5 Pulse 51 53 51 Resp 13 14 B/P (MAP) 128/45 Pulse Ox 98 96 O2 Delivery Mechanical Ventilator O2 Flow Rate 60.00 FiO2 50 05/15/21 05/15/21 05/15/21 05/15/21 22:00 22:10 23:00 23:59 Pulse 52 52 50 Resp 13 14 14 B/P (MAP) Pulse Ox 95 95 96 97 O2 Delivery Mechanical Ventilator Mechanical Ventilator Mechanical Ventilator Mechanical Ventilator O2 Flow Rate 60.00 50.00 50.00 FiO2 50 05/16/21 05/16/21 05/16/21 05/16/21 00:00 01:00 01:00 01:31 Pulse 50 47 47 49 Resp 13 13 B/P (MAP) 127/46 Pulse Ox 97 98 O2 Delivery Mechanical Ventilator Mechanical Ventilator O2 Flow Rate 50.00 50.00 05/16/21 05/16/21 05/16/21 05/16/21 01:59 02:00 02:05 03:00 Pulse 49 48 48 57 Resp 14 29 14 13 B/P (MAP) Pulse Ox 96 97 96 92 O2 Delivery Mechanical Ventilator Mechanical Ventilator Mechanical Ventilator O2 Flow Rate 50.00 40.00 40.00 FiO2 40 05/16/21 05/16/21 05/16/21 05/16/21 04:00 04:00 04:20 05:00 Pulse 55 56 53 Resp 14 14 B/P (MAP) 156/43 Pulse Ox 93 93 94 O2 Delivery Mechanical Ventilator Mechanical Ventilator Mechanical Ventilator O2 Flow Rate 40.00 40.00 FiO2 40 05/16/21 05/16/21 05/16/21 05/16/21 06:00 06:34 06:44 06:45 Pulse 51 49 50 50 Resp 13 14 B/P (MAP) 129/42 Pulse Ox 95 95 O2 Delivery Mechanical Ventilator O2 Flow Rate 40.00 FiO2 40 05/16/21 05/16/21 05/16/21 05/16/21 07:00 07:27 07:34 08:00 Temp 35.6 Pulse 54 57 65 Resp 13 B/P (MAP) 204/57 Pulse Ox 94 94 94 O2 Delivery Mechanical Ventilator Mechanical Ventilator Mechanical Ventilator O2 Flow Rate 40.00 40.00 FiO2 40 05/16/21 05/16/21 05/16/21 05/16/21 08:30 08:40 09:00 10:00 Temp 36.2 36.6 Pulse 109 106 102 96 Resp 16 21 14 B/P (MAP) 222/53 Pulse Ox 97 99 98 O2 Delivery Mechanical Ventilator Mechanical Ventilator O2 Flow Rate 100.00 100.00 FiO2 100 05/16/21 05/16/21 05/16/21 05/16/21 11:00 11:04 11:11 11:47 Temp 36.6 Pulse 78 77 77 Resp 19 20 B/P (MAP) 135/48 Pulse Ox 97 97 O2 Delivery Mechanical Ventilator Mechanical Ventilator O2 Flow Rate 100.00 80.00 FiO2 100 05/16/21 05/16/21 05/16/21 05/16/21 12:00 12:05 12:09 12:14 Temp 36.4 Pulse 88 85 91 84 Resp 19 20 20 B/P (MAP) 192/62 181/55 156/50 Pulse Ox 94 O2 Delivery Mechanical Ventilator O2 Flow Rate 80.00 05/16/21 05/16/21 05/16/21 05/16/21 12:32 12:43 12:53 13:00 Temp 36.9 Pulse 89 82 82 Resp 20 B/P (MAP) 104/41 Pulse Ox 96 95 O2 Delivery Mechanical Ventilator Mechanical Ventilator O2 Flow Rate 80.00 FiO2 80 05/16/21 05/16/21 13:06 13:12 Pulse 83 B/P (MAP) 174/56 O2 Delivery Mechanical Ventilator O2 Flow Rate 70.00 05/16/21 00:00 Intake Total 0 ml Output Total 500 ml Balance -500 ml Blood Pressure Mean: 106 CHARLES FRAZIER MD May 16, 2021 08:27
[2021-05-16 08:34] LABS: ABG BASE EXCESS -4.2 MMOL/L (-2.5-2.5); ABG OXYGEN SATURATION 99 % (94-100); ABG PO2 226 MMHG (79-93); ABG TCO2 27.9 MMOL/L (21.0-31.0)
[2021-05-16 08:35] LABS: ABG PH 7.08 (7.37-7.43)
[2021-05-16 08:36] LABS: ABG PCO2 86 MMHG (35-45); ALLENS TEST YES-POS; INSPIRED O2 40%; PATIENT TEMP 35.5; VENTILATOR YES
[2021-05-16] MEDS: niCARdipine IV 50 MG in NS (IVPB) 230 ML IV SCH ×2 (08:46→18:39)
[2021-05-16] MEDS: CEFEPIME INJECTION 2,000 MG in WATER (STERILE) FOR INJECTION 20 ML IV SCH ×2 (09:31→21:10)
[2021-05-16 09:46] LABS: ABG BASE EXCESS -0.1 MMOL/L (-2.5-2.5); ABG OXYGEN SATURATION 100 % (94-100); ABG PO2 190 MMHG (79-93); ABG TCO2 29.4 MMOL/L (21.0-31.0)
[2021-05-16 09:48] LABS: ABG PCO2 72 MMHG (35-45); ALLENS TEST ART LINE; INSPIRED O2 100%; PATIENT TEMP 36.5; VENTILATOR YES
--- NOTE | 2021-05-16 10:19 | Pulmonary Progress Note ---
Subjective Date Seen by a Provider: May 16, 2021 Time Seen by a Provider: 10:12 Subjective/Events-last exam 70 yo M came intubated for hypercarbic resp failure, has severe SIDNEY, non compliant, went to [facility], intubated there when failed BiPAP Today developed Sz like activity, given Ativan which stopped Sz activity but reoccurred and then had ? VF arrest, shocked x 1 CPR done for 5 min, now better, no further arrythmias, no PVC's or PAC's, Sz better, started on IV Kepra, K 3.3, was not replaced, will order 40 Meq over four hours thru central line and Mg 2.2 did get 2 g IV magnesium initial ABG 7.08, now 7.20 with reduction of pCO2 from 80's to 70;'s Plan is to keep on vent, AC 16, Vt 500 FiO2 40% PEEP 5 Sepsis Event Evaluation Height, Weight, BMI Height: 510.00" Weight: 278lbs. 9.6oz. 126.661369pf; 39.54 BMI Method:Stated Focused Exam Lactate Level 05/15/21 20:27: Lactic Acid Level 1.49 Exam Exam Patient acknowledged, consented, and participated in this virtual visit which was conducted using real time audio/video Vital Signs Date Time Temp Pulse Resp B/P (MAP) Pulse Ox O2 Delivery O2 Flow Rate FiO2 05/16/21 09:00 36.2 102 21 99 Mechanical Ventilator 100.00 05/16/21 08:40 106 222/53 05/16/21 08:30 109 16 97 100 05/16/21 08:00 35.6 65 13 94 Mechanical Ventilator 40.00 05/16/21 07:34 57 204/57 05/16/21 07:27 94 Mechanical Ventilator 40 05/16/21 07:00 54 94 Mechanical Ventilator 40.00 05/16/21 06:45 50 05/16/21 06:44 50 14 95 40 05/16/21 06:34 49 129/42 05/16/21 06:00 51 13 95 Mechanical Ventilator 40.00 05/16/21 05:00 53 14 94 Mechanical Ventilator 40.00 05/16/21 04:20 56 156/43 05/16/21 04:00 93 Mechanical Ventilator 40 05/16/21 04:00 55 14 93 Mechanical Ventilator 40.00 05/16/21 03:00 57 13 92 Mechanical Ventilator 40.00 05/16/21 02:05 48 14 96 Mechanical Ventilator 40.00 05/16/21 02:00 48 29 97 Mechanical Ventilator 50.00 05/16/21 01:59 49 14 96 40 05/16/21 01:31 49 127/46 05/16/21 01:00 47 13 98 Mechanical Ventilator 50.00 05/16/21 01:00 47 05/16/21 00:00 50 13 97 Mechanical Ventilator 50.00 05/15/21 23:59 97 Mechanical Ventilator 50 05/15/21 23:00 50 14 96 Mechanical Ventilator 50.00 05/15/21 22:10 52 14 95 Mechanical Ventilator 50.00 05/15/21 22:00 52 13 95 Mechanical Ventilator 60.00 05/15/21 21:49 51 14 96 50 05/15/21 21:37 53 128/45 05/15/21 21:00 51 13 98 Mechanical Ventilator 60.00 05/15/21 20:13 36.5 05/15/21 20:00 54 8 98 Mechanical Ventilator 60.00 05/15/21 19:45 57 14 97 Mechanical Ventilator 60.00 05/15/21 19:21 58 94 60 05/15/21 19:20 58 05/15/21 19:16 58 14 94 60 05/15/21 19:15 58 97 Mechanical Ventilator 60.00 05/15/21 19:05 36.5 60 14 98 Mechanical Ventilator 60.00 05/15/21 19:05 98 Mechanical Ventilator 60 l I & O 05/16/21 07:00 Intake Total 0 ml Output Total 1330 ml Balance -1330 ml Height & Weight Height: 5'10.00" Weight: 278lbs. 9.6oz. 126.909221wd; 39.54 BMI Method:Stated General Appearance: No Apparent Distress, WD/WN, Chronically ill, Obese, Other (Sedated on ventilator) Respiratory: Lungs Clear, No Accessory Muscle Use, No Respiratory Distress, Decreased Breath Sounds Cardiovascular: Regular Rate, Rhythm Gastrointestinal: normal bowel sounds, non tender, soft Extremity: Pedal Edema Neurologic/Psychiatric: Other Results Lab Laboratory Tests 05/15/21 20:27 05/16/21 02:55 Assessment/Plan Assessment/Plan Hypercarbic resp failue, will raise rate to 20, will watch for autoPEEP recheck ABG in 3 hours will further replace potassium, has central line continue DVT-on Lovenox GIB- Needs Rx will order Pepcicd has DM2 will start low sliding scale Critical Care: Critically Ill Patient Time spent with patient (mins): 30 SHANNAN PARIKH MD May 16, 2021 10:19
[2021-05-16 11:04] VITALS: BP 133/45
[2021-05-16] MEDS: LORazepam INJECTION FOR DRIP 20 MG in NS (IVPB) 90 ML IV SCH ×2 (12:09→15:45)
[2021-05-16] MEDS: inSUlin ASPART (NovoLOG) 1 UNIT/0.01 ML (CHARGE PER UNIT) SC SCH ×2 (12:09→17:44)
[2021-05-16 12:55] LABS: ABG BASE EXCESS -2.3 MMOL/L (-2.5-2.5); ABG OXYGEN SATURATION 99 % (94-100); ABG PCO2 58 MMHG (35-45); ABG PO2 123 MMHG (79-93); ABG TCO2 25.8 MMOL/L (21.0-31.0)
[2021-05-16 12:58] LABS: ABG PH 7.24 (7.37-7.43)
[2021-05-16 12:59] LABS: ALLENS TEST ART LINE
[2021-05-16 13:00] LABS: INSPIRED O2 100; PATIENT TEMP 38.6; VENTILATOR YES
[2021-05-16] MEDS ORDERED: GABA300C PO (13:09)
[2021-05-16] MEDS ORDERED: GLIM2TAB4 PO (13:09)
[2021-05-16] MEDS ORDERED: ACHD5005 PO (13:09)
[2021-05-16] MEDS ORDERED: METF-397 PO (13:09)
[2021-05-16] MEDS ORDERED: MIRT15TA6 PO (13:09)
[2021-05-16] MEDS ORDERED: SIMV40TA25 PO (13:09)
[2021-05-16] MEDS ORDERED: ALB0.5V INH (13:12)
[2021-05-16] MEDS ORDERED: RT-ALBUINH IH (13:12)
[2021-05-16] MEDS ORDERED: GUAI600T43 PO (13:12)
[2021-05-16] MEDS ORDERED: VENL-48 PO (14:04)
--- NOTE | 2021-05-16 15:29 | Consultation-Cardiology ---
HPI-Cardiology Cardiology Consultation Date of Consultation 05/16/21 Date of Admission Time Seen by Provider: 10:12 Indication: Acute resiratory failure HPI Patient is a 70 y/o male with history of COPD with chronic respiratory failure, severe SIDNEY, noncompliant with CPAP, CAD s/p CABG, presented to ER in [place] with stroke like symptoms. W/u negative for stroke, ABGs revealed CO2 narcosis, started on BiPAP and ultimately intubated. Had seizure like activity this morning, followed by questionable vfib arrest, was given ativan and treated with shock. Currently patient is intubated and sedated. Vitals remain stable. Home Medications & Allergies Allergies: Coded Allergies: No Known Drug Allergies (Verified , 05/17/19) Home Medication List Reviewed: Yes [id number] Hx Patient Social History Marital Status: single Employed/Student: unemployed Smoking Status: Former Smoker Recent Hopitalizations: Yes Alcohol Use?: Unable to obtain Immunizations Up To Date Tetanus Booster (TDap): More than 5yrs Date of Pneumonia Vaccine: Jul 15, 2018 Past Medical History Discussed below Family Medical History Significant Family History: No Pertinent Family Hx Family Medical Hx Unable to provide family history Review of Systems-General Review of Systems ROS-Unable to Obtain: unable to obtain Constitutional: see HPI, other (Unable to provide review of system) All Other Systems Reviewed Negative Unless Noted: Yes Reviewed Test Results Reviewed Test Results Lab Laboratory Tests 05/15/21 20:27: White Blood Count 8.1, Red Blood Count 3.56L, Hemoglobin 11.2L, Hematocrit 35L, Mean Corpuscular Volume 99, Mean Corpuscular Hemoglobin 32, Mean Corpuscular Hemoglobin Concent 32, Red Cell Distribution Width 14.1, Platelet Count 158, Mean Platelet Volume 10.7, Immature Granulocyte % (Auto) 1, Neutrophils (%) (Auto) 65, Lymphocytes (%) (Auto) 23, Monocytes (%) (Auto) 9, Eosinophils (%) (A uto) 2, Basophils (%) (Auto) 0, Neutrophils # (Auto) 5.3, Lymphocytes # (Auto) 1.9, Monocytes # (Auto) 0.7, Eosinophils # (Auto) 0.2, Basophils # (Auto) 0.0, Immature Granulocyte # (Auto) 0.1, Blood Gas Puncture Site ART LINE, Blood Gas Patient Temperature 36.5, Arterial Blood pH 7.38, Arterial Blood Partial Pressure CO2 57H, Arterial Blood Partial Pressure O2 112H, Arterial Blood HCO3 33H, Arterial Blood Total CO2 34.8H, Arterial Blood Oxygen Saturation 99, Arterial Blood Base Excess 7.8H, Maurisio Test ART LINE, Blood Gas Ventilator Setting NO, Blood Gas Inspired Oxygen NOT INDICATED, Sodium Level 142, Potassium Level 4.1, Chloride Level 102, Carbon Dioxide Level 30, Anion Gap 10, Blood Urea Nitrogen 20H, Creatinine 1.13, Estimat Glomerular Filtration Rate > 60, BUN/Creatinine Ratio 18, Glucose Level 122H, Lactic Acid Level 1.49, Calcium Level 8.6, Phosphorus Level 2.0L, Magnesium Level 1.8, Total Bilirubin 0.4, Direct Bilirubin 0.2, Indirect Bilirubin 0.2, Aspartate Amino Transf (AST/SGOT) 23, Alanine Aminotransferase (ALT/SGPT) 21, Alkaline Phosphatase 69, Total Protein 6.1L, Albumin 3.4 05/15/21 20:40: Urine Color YELLOW, Urine Clarity CLEAR, Urine pH 5.5, Urine Specific [place] 1.015L, Urine Protein NEGATIVE, Urine Glucose (UA) NEGATIVE, Urine Ketones NEGATIVE, Urine Nitrite NEGATIVE, Urine Bilirubin NEGATIVE, Urine Urobilinogen 0.2, Urine Leukocyte Esterase NEGATIVE, Urine RBC (Auto) TRACE-I, Urine RBC RAR E, Urine WBC NONE, Urine Crystals NONE, Urine Bacteria NEGATIVE, Urine Casts PRESENT, Urine Hyaline Casts RARE, Urine Mucus NEGATIVE, Urine Culture Indicated NO 05/16/21 02:55: White Blood Count 7.5, Red Blood Count 3.64L, Hemoglobin 11.3L, Hematocrit 36L, Mean Corpuscular Volume 100H, Mean Corpuscular Hemoglobin 31, Mean Corpuscular Hemoglobin Concent 31L, Red Cell Distribution Width 14.0, Platelet Count 135, Mean Platelet Volume 10.3, Immature Granulocyte % (Auto) 1, Neutrophils (%) (Auto) 51, Lymphocytes (%) (Auto) 37, Monocytes (%) (Auto) 8, Eosinophils (%) (Auto) 3, Basophils (%) (Auto) 0, Neutrophils # (Auto) 3.8, Lymphocytes # (Auto) 2.8, Monocytes # (Auto) 0.6, Eosinophils # (Auto) 0.2, Basophils # (Auto) 0.0, Immature Granulocyte # (Auto) 0.1, Blood Gas Puncture Site ART LINE, Blood Gas Patient Temperature 36.7, Arterial Blood pH 7.36L, Arterial Blood Partial Pressure CO2 58H, Arterial Blood Partial Pressure O2 62L, Arterial Blood HCO3 32H, Arterial Blood Total CO2 33.6H, Arterial Blood Oxygen Saturation 92L, Arterial Blood Base Excess 6.5H, Maurisio Test ART LINE, Blood Gas Ventilator Setting YES, Blood Gas Inspired Oxygen 40%, Sodium Level 144, Potassium Level 3.8, Chloride Level 103, Carbon Dioxide Level 28, Anion Gap 13, Blood Urea Nitrogen 21H, Creatinine 1.17, Estimat Glomerular Filtration Rate > 60, BUN/Creatinine Ratio 18, Glucose Level 102, Calcium Level 8.6, Phosphorus Level 2.2L, Magnesium Level 1.5L, Triglycerides Level 419H 05/16/21 07:41: Glucometer 103 05/16/21 08:19: Blood Gas Puncture Site LT RADIAL, Blood Gas Patient Temperature 35.5, Arterial Blood pH 7.08*L, Arterial Blood Partial Pressure CO2 86*H, Arterial Blood Partial Pressure O2 226H, Arterial Blood HCO3 25, Arterial Blood Total CO2 27.9, Arterial Blood Oxygen Saturation 99, Arterial Blood Base Excess -4.2L, Maurisio Test YES-POS, Blood Gas Ventilator Setting YES, Blood Gas Inspired Oxygen 40% 05/16/21 08:28: 05/16/21 09:34: Blood Gas Puncture Site LT RADIAL ARTLINE, Blood Gas Patient Temperature 36.5, Arterial Blood pH 7.20*L, Arterial Blood Partial Pressure CO2 72*H, Arterial Blood Partial Pressure O2 190H, Arterial Blood HCO3 27, Arterial Blood Total CO2 29.4, Arterial Blood Oxygen Saturation 100, Arterial Blood Base Excess -0.1, Maurisio Test ART LINE, Blood Gas Ventilator Setting YES, Blood Gas Inspired Oxygen 100% 05/16/21 11:45: Glucometer 163H 05/16/21 12:47: Blood Gas Puncture Site Lt RAD ARTLINE, Blood Gas Patient Temperature 38.6, Arterial Blood pH 7.24*L, Arterial Blood Partial Pressure CO2 58H, Arterial Blood Partial Pressure O2 123H, Arterial Blood HCO3 24, Arterial Blood Total CO2 25.8, Arterial Blood Oxygen Saturation 99, Arterial Blood Base Excess -2.3, Maurisio Test ART LINE, Blood Gas Ventilator Setting YES, Blood Gas Inspired Oxygen 100 Microbiology 05/15/21 Blood Culture - Preliminary, Resulted No growth Physical Exam Physical Exam Vital Signs Vital Signs - First Documented 05/15/21 05/15/21 19:05 21:37 Temp 36.5 Pulse 60 Resp 14 B/P (MAP) 128/45 Pulse Ox 98 O2 Delivery Mechanical Ventilator O2 Flow Rate 60.00 FiO2 60 Capillary Refill : Height, Weight, BMI Height: 5'10.00" Weight: 278lbs. 9.6oz. 126.827643mt; 39.54 BMI Method:Stated General Appearance: WD/WN, Chronically ill, Obese, Other (Sedated on ventilator) Respiratory: Decreased Breath Sounds Cardiovascular: Regular Rate, Rhythm Gastrointestinal: Soft Extremity: Pedal Edema Neurologic/Psychiatric: Other A/P-Cardiology Admission Diagnosis Acute respiratory failure COPD CAD HTN Assessment/Plan Acute respiratory failure requiring intubation, likely multifactorial, hx of COPD with chronic respiratory failure, severe SIDNEY and morbid obesity with hypoventilation syndrome. Currently sedated and intubated Seizure like activity with questionable arrhythmia vs artifact. Received ativan and required shock. Currently vitals are stable, continue to monitor. Coronary artery disease history of CABG 6 done in 2012, has been followed by Dr. Adkins. History of multiple catheterizations and recall having small vessel disease, continue conservative management at this time. Congestive heart failure, echo was done showing left ventricular systolic function mildly reduces, EF 40-45%, grade 1 diastolic dysfunction. Dilated left atrium, pulmonary artery pressure of 25-30 mmHg. chronic kidney disease stage III, continue to monitor Hypertension, continue to monitor Hyperlipidemia, maintained on statin as outpatient, continue to monitor COPD, history of prolonged intubation Generalized weakness and debility Status post lumbar surgery done in May 2019, prolonged and complex recovery Diabetes mellitus, followed and managed by primary care physician Obesity History of tobaccoism Thank you for allowing us to participate in the management of Mr. Meehan. This is Edwina Gutierrez PA-C, as a scribe for Dr. Duke. Patient was seen and evaluated with Edwina, he is intubated and sedated, history was obtained by reviewing his record He is currently in acute respiratory failure, ventilator dependent, has seizure- like activity, arrhythmia was suspected, could be artifact secondary to the seizure, still having irregular rhythm with sinus rhythm and atrial premature contractions, possible underlying ventricular tachycardia especially with his decrease in left ventricular function, echocardiogram was reviewed and it was of poor quality due to his current condition Has extensive history of coronary artery disease, hypertension hyperlipidemia, continue to monitor closely, supportive care for now Had acute exacerbation of COPD with CO2 retention, managed by primary care team EDWINA LOBO May 16, 2021 3:29 pm HANANE DUKE MD May 16, 2021 7:08 pm
[2021-05-16 15:46] VITALS: BP 202/61
[2021-05-16] MEDS: LORazepam INJ 2 MG/ML (ATIVAN) VIAL IVP PRN (15:49)
--- NOTE | 2021-05-16 15:49 | Diagnostic Imaging Report ---
CLINICAL INDICATION: Patient with seizure-like activity. EXAM: Axial CT scan of the brain without IV contrast with coronal and sagittal reformatted images. Auto Exposure Controls were utilized during the CT exam to meet ALARA standards for radiation dose reduction. COMPARISON: None. FINDINGS: There is skull streak artifact which obscures portions of the brainstem, posterior fossa, and portions of the brain near the skull. There is no evidence of acute cerebral infarct, intracranial hemorrhage, or gross mass effect. The brain parenchymal volume appears appropriate for patient's age. There is normal araiza-white matter distinction. There is no significant midline shift or herniation. There is no evidence of hydrocephalus. The basal cisterns are unremarkable. The skull, extracranial soft tissue, and orbits are unremarkable. There are small air-fluid levels and mild mucosal thickening involving both maxillary sinuses. There is a moderate amount of patchy mucosal thickening involving the ethmoid sinus. There is moderate mucosal thickening and an air-fluid level in the sphenoid sinus. Temporal bones show no significant abnormality. IMPRESSION: 1: There is no evidence of acute intracranial process. 2: There is diffuse paranasal sinusitis. Dictated by: Dictated on workstation # [id number]
[2021-05-16 18:35] VITALS: BP 162/49
[2021-05-16] MEDS: ENOXAPARIN 40 MG/0.4 ML (LOVENOX) SYR SC SCH (18:39)
[2021-05-16] MEDS: VANCOMYCIN 2000 MG/NS 500 ML IVPB IV SCH ×2 (21:10)
[2021-05-16] MEDS: FAMOTIDINE 20MG/2ML IV (PEPCID) IVP SCH (21:10)
[2021-05-16 22:22] VITALS: BP 126/44
[2021-05-17 03:40] LABS: BASOPHILS % (AUTO) 0 % (0-10); EOSINOPHILS # (AUTO) 0.2 10^3/uL (0.0-0.3); EOSINOPHILS % (AUTO) 3 % (0-10); HEMATOCRIT 34 % (40-54); LYMPHOCYTES # (AUTO) 1.3 10^3/uL (1.0-4.0); LYMPHOCYTES % (AUTO) 19 % (12-44); MEAN CORPUSCULAR HEMOGLOBIN 31 pg (25-34); MEAN CORPUSCULAR HGB CONC 32 g/dL (32-36); MEAN CORPUSCULAR VOLUME 96 fL (80-99); MEAN PLATELET VOLUME 10.6 fL (9.0-12.2); MONOCYTES # (AUTO) 0.5 10^3/uL (0.0-1.0); MONOCYTES % (AUTO) 8 % (0-12); NEUTROPHILS # (AUTO) 4.8 10^3/uL (1.8-7.8); NEUTROPHILS % (AUTO) 69 % (42-75); PLATELET COUNT 144 10^3/uL (130-400); WHITE BLOOD COUNT 6.9 10^3/uL (4.3-11.0)
[2021-05-17 04:01] LABS: CHLORIDE 104 MMOL/L (98-107); SODIUM 141 MMOL/L (135-145)
[2021-05-17] MEDS: PROPOFOL DRIP (ICU) 100 ML IV SCH ×3 (04:01→18:50)
[2021-05-17 04:02] LABS: CALCIUM 8.4 MG/DL (8.5-10.1)
[2021-05-17 04:03] LABS: GLUCOSE 149 MG/DL (70-105)
[2021-05-17 04:04] LABS: CARBON DIOXIDE 25 MMOL/L (21-32)
[2021-05-17 04:06] LABS: PHOSPHORUS 2.2 MG/DL (2.3-4.7)
[2021-05-17 04:07] LABS: BUN/CREATININE RATIO 15; CREATININE SERUM 1.11 MG/DL (0.60-1.30); GFR ESTIMATED > 60
[2021-05-17 04:09] LABS: MAGNESIUM 1.7 MG/DL (1.6-2.4)
[2021-05-17] MEDS: RT-ALBUTEROL/IPRATROPIUM 3 ML (DUONEB) VIAL INH SCH ×6 (04:45→22:43)
[2021-05-17] MEDS: niCARdipine IV 50 MG in NS (IVPB) 230 ML IV SCH ×2 (05:00→15:22)
[2021-05-17] MEDS: MAGNESIUM 1 GM/100 ML IVPB 100 ML IV SCH (05:32)
[2021-05-17] MEDS: POTASSIUM CL 10MEQ/50ML IVPB 50 ML IV SCH (05:32)
[2021-05-17] MEDS: KCL 20 MEQ TAB (K-DUR) PO SCH (05:33)
[2021-05-17] MEDS: inSUlin ASPART (NovoLOG) 1 UNIT/0.01 ML (CHARGE PER UNIT) SC SCH ×4 (05:33→18:32)
--- NOTE | 2021-05-17 05:54 | Progress Note - Hospitalist ---
Subjective HPI/CC On Admission Date Seen by Provider: May 17, 2021 Time Seen by Provider: 11:30 Chief complaint: Respiratory failure requiring intubation due to CO2 narcosis and respiratory acidosis History of present illness: This is a 70-year-old white male known to me from inpatient rehab admission nearly 2 years ago after a long course at [facility] when he remained ventilator dependent and then stayed 3 weeks in inpatient rehab before requiring prison admission who presented to [facility] with strokelike symptoms patient was found to have no evidence of a stroke but ABG revealed CO2 narcosis retention with respiratory acidosis with CO2 level of 92. Patient was placed on BiPAP but failed that so he was intubated central line was placed arterial line was placed Alves catheter placed and stabilized given cefepime and vancomycin to treat early pneumonia in addition to Diprivan for conscious sedation with gentle IV fluids and patient will be monitored closely in the ICU. Daughter was at the bedside at [facility]. She is his [employer]. He remains a full code. He has not used his CPAP machine for many years. He keeps it in the closet. PMH: Diabetes mellitus on oral therapy, obstructive sleep apnea, COPD with chronic respiratory failure, polycythemia due to chronic respiratory failure, tobacco use, chronic low back pain, peripheral neuropathy, PVD, CAD previous bypass surgery, thrombocytopenia, morbid obesity with hypoventilation syndrome, congestive heart failure with acute on chronic diastolic type with volume overload at admission to [facility], hyperlipidemia, hypertension, carpal tunnel syndrome, severe DJD of the right knee, SVT. Subjective/Events-last exam No seizures today Ativan drip along with the Diprivan Check meds and labs ABG improved [place] will be pursued he has been there before Family does not wish him to be DO NOT RESUSCITATE Focused Exam Lactate Level 05/15/21 20:27: Lactic Acid Level 1.49 Objective Exam Vital Signs Vital Signs Date Time Temp Pulse Resp B/P (MAP) Pulse Ox O2 Delivery O2 Flow Rate FiO2 05/17/21 18:56 71 20 94 60 05/17/21 18:51 170/56 05/17/21 18:00 Mechanical Ventilator 70.00 05/17/21 06:00 36.8 Capillary Refill : General Appearance: No Apparent Distress, WD/WN, Chronically ill, Obese Respiratory: Lungs Clear Cardiovascular: Regular Rate, Rhythm Results/Procedures Lab Laboratory Tests 05/17/21 03:31 Patient resulted labs reviewed. Assessment/Plan Assessment and Plan Assess & Plan/Chief Complaint Assessment: Acute on chronic hypoxic hypercapnic respiratory failure Ventilator dependent respiratory failure status post intubation and [facility] ER Early pneumonia on chest x-ray Severe sleep apnea/obesity hypoventilation syndrome noncompliant with CPAP/BiPAP CAD previous bypass Cardiomyopathy Hypertension Diabetes Seizures 05/16/21 s/p code blue 05/16/21 Plan: Antibiotics Ventilator eICU consult appreciated Cardiology consult in the morning Echocardiogram Monitor labs 05/16/21: Ativan drip for seizures from respiratory acidosis Vent management Poor prognosis given so many hospital stays for same reason non-compliance with CPAP and CO2 narcosis 05/17/2021 Vent management appreciated IV antibiotics IV fluids Critical Care Critically Ill Patient Diagnosis/Problems Diagnosis/Problems (1) Respiratory failure, acute and chronic (2) Hx of CABG (3) Acute on chronic diastolic heart failure with preserved ejection fraction Status: Acute (4) Hx of supraventricular tachycardia (5) BPH (benign prostatic hyperplasia) (6) Obesity Status: Chronic (7) Hypertension Status: Chronic (8) PVD (peripheral vascular disease) Status: Chronic (9) Renal insufficiency Status: Chronic (10) Neuropathy Status: Chronic (11) Hyperlipemia Status: Chronic (12) CAD (coronary artery disease) Status: Chronic (13) Noncompliance Status: Chronic JASPER LONG DO May 17, 2021 05:54
[2021-05-17 06:09] LABS: ABG BASE EXCESS 2.9 MMOL/L (-2.5-2.5); ABG OXYGEN SATURATION 98 % (94-100); ABG PCO2 43 MMHG (35-45); ABG PH 7.41 (7.37-7.43); ABG PO2 84 MMHG (79-93); ABG TCO2 28.6 MMOL/L (21.0-31.0); ALLENS TEST ARTLINE; INSPIRED O2 80%; PATIENT TEMP 36.8; VENTILATOR NO
[2021-05-17 06:36] VITALS: BP 142/43
--- NOTE | 2021-05-17 06:45 | Diagnostic Imaging Report ---
INDICATION: Shortness of breath Portable chest 3:45 AM There is an ET tube projecting over the trachea. Right IJ central line tip projects over the SVC. There is cardiomegaly with pulmonary vascular congestion and alveolar edema. IMPRESSION: Congestive heart failure with pulmonary edema unchanged from previous day. Dictated by: Dictated on workstation # [id number]
--- NOTE | 2021-05-17 06:51 | Occ Therapy Progress Note ---
Therapy Progress Note Pt is currently intubated. OT will continue to monitor pt status and initiate treatment when pt is medically stable and able to actively participate with skilled therapy. AMANDA WEINER May 17, 2021 06:51
--- NOTE | 2021-05-17 08:07 | Physical Therapy Progress Note ---
Therapy Progress Note Patient currently sedated and intubated. PT will continue to monitor patient status and initiate treatment when patient is medically stable and able to actively participate with skilled therapy. OTIS BALDWIN PT May 17, 2021 08:07
[2021-05-17] MEDS: LORazepam INJECTION FOR DRIP 20 MG in NS (IVPB) 90 ML IV SCH ×3 (08:18→18:51)
[2021-05-17] MEDS ORDERED: EPINEPHrine 0.1 MG/ML 10 ML (HOSPIRA) SYR IJ ONE (08:37)
[2021-05-17 09:39] VITALS: BP 114/41
--- NOTE | 2021-05-17 10:31 | Cardiology Progress Note ---
Subjective Date Seen by Provider: May 17, 2021 Time Seen by Provider: 10:29 Subjective/Events-last exam Patient was seen at bedside, sedated and intubated, unable to provide any history Review of Systems General: Other (Unable to provide review of system) Focused Exam Lactate Level 05/15/21 20:27: Lactic Acid Level 1.49 Objective-Cardiology Exam Last Set of Vital Signs Vital Signs 05/17/21 05/17/21 05/17/21 05/17/21 06:00 07:55 08:18 09:39 Temp 36.8 Pulse 79 Resp 20 B/P (MAP) 142/44 Pulse Ox 92 O2 Delivery Mechanical Ventilator O2 Flow Rate 70.00 FiO2 60 Capillary Refill : I&O Intake and Output 05/17/21 00:00 Intake Total 550 ml Output Total 2305 ml Balance -1755 ml Intake Oral 0 ml IV Total 550 ml Output Urine Total 2305 ml General: Other (Sedated and intubated) HEENT: Atraumatic Neck: Supple Lungs: Normal Air Movement, Other Heart: Normal S1, Normal S2 Abdomen: Normal Bowel Sounds Extremities: No Clubbing Neuro: Other (Sedated and intubated) Psych/Mental Status: Other (Sedated and intubated) Results Lab Laboratory Tests 05/17/21 03:31 A/P-Cardiology Admission Diagnosis Acute respiratory failure COPD CAD HTN Assessment/Plan Status post acute respiratory failure, intubated, acute exacerbation of COPD with severe sleep apnea, hypercapnia with hypoventilation, ventilator dependent, managed by primary care team. Seizure like activity with questionable arrhythmia vs artifact. Received ativan and required shock. Currently vitals are stable, continue to monitor. Coronary artery disease history of CABG 6 done in 2012, has been followed by Dr. Adkins. History of multiple catheterizations and recall having small vessel disease, continue conservative management at this time. Congestive heart failure, echo was done showing left ventricular systolic function mildly reduces, EF 40-45%, grade 1 diastolic dysfunction. Dilated left atrium, pulmonary artery pressure of 25-30 mmHg. Chronic kidney disease stage III, continue to monitor Hypertension, continue to monitor Hyperlipidemia, maintained on statin as outpatient, continue to monitor COPD, history of prolonged intubation Generalized weakness and debility Status post lumbar surgery done in May 2019, prolonged and complex recovery Diabetes mellitus, followed and managed by primary care physician Obesity History of tobaccoism HANANE FUENTES MD May 17, 2021 10:31
[2021-05-17] MEDS: LEVETIRACETAM 1,000 MG/NS 100 ML IVPB IV SCH ×4 (10:40→21:00)
[2021-05-17] MEDS: FAMOTIDINE 20MG/2ML IV (PEPCID) IVP SCH ×2 (10:40→21:42)
[2021-05-17] MEDS: CEFEPIME INJECTION 2,000 MG in WATER (STERILE) FOR INJECTION 20 ML IV SCH ×2 (10:40→21:42)
[2021-05-17] MEDS ORDERED: fentaNYL INJ 100 MCG/2 ML AMP IVP PRN (12:45)
[2021-05-17] MEDS ORDERED: NS IV 1000 ML 1,000 ML IV SCH (12:46)
--- NOTE | 2021-05-17 12:46 | Pulmonary Progress Note ---
Subjective Date Seen by a Provider: May 17, 2021 Time Seen by a Provider: 12:46 Sepsis Event Evaluation Height, Weight, BMI Height: 5'10.00" Weight: 278lbs. 9.6oz. 126.371334fr; 39.54 BMI Method:Stated Focused Exam Lactate Level 05/15/21 20:27: Lactic Acid Level 1.49 Exam Exam Patient acknowledged, consented, and participated in this virtual visit which was conducted using real time audio/video Vital Signs Date Time Temp Pulse Resp B/P (MAP) Pulse Ox O2 Delivery O2 Flow Rate FiO2 05/17/21 09:39 79 20 92 60 05/17/21 08:18 82 19 142/44 05/17/21 07:55 92 Mechanical Ventilator 60 05/17/21 06:36 74 20 92 60 05/17/21 06:00 36.8 05/17/21 06:00 36.9 75 20 92 Mechanical Ventilator 70.00 05/17/21 05:00 36.7 76 19 92 Mechanical Ventilator 70.00 05/17/21 05:00 36.5 05/17/21 04:01 74 211/55 05/17/21 04:00 36.5 73 19 95 Mechanical Ventilator 70.00 05/17/21 04:00 95 Mechanical Ventilator 60 05/17/21 03:00 36.5 67 19 96 Mechanical Ventilator 70.00 05/17/21 03:00 37.0 05/17/21 02:00 36.6 70 20 95 Mechanical Ventilator 70.00 05/17/21 01:00 36.4 05/17/21 01:00 74 05/17/21 01:00 36.7 73 20 95 Mechanical Ventilator 70.00 05/17/21 00:00 36.9 79 19 95 Mechanical Ventilator 70.00 05/16/21 23:59 95 Mechanical Ventilator 60 05/16/21 23:00 80 19 96 Mechanical Ventilator 70.00 05/16/21 23:00 36.0 05/16/21 22:22 73 20 96 60 05/16/21 22:00 74 20 96 Mechanical Ventilator 70.00 05/16/21 21:00 35.9 05/16/21 21:00 79 19 96 Mechanical Ventilator 70.00 05/16/21 20:00 82 19 96 Mechanical Ventilator 70.00 05/16/21 20:00 36.2 05/16/21 20:00 96 Mechanical Ventilator 70 05/16/21 19:00 84 05/16/21 19:00 82 26 95 Mechanical Ventilator 70.00 05/16/21 18:35 78 20 94 60 05/16/21 18:00 78 19 94 Mechanical Ventilator 70.00 05/16/21 17:44 88 124/41 05/16/21 17:00 85 20 96 Mechanical Ventilator 70.00 05/16/21 16:53 87 20 86/33 05/16/21 16:37 96 Mechanical Ventilator 70 05/16/21 16:23 91 20 83/34 05/16/21 16:21 91 86/35 05/16/21 16:00 101 23 95 Mechanical Ventilator 70.00 05/16/21 15:46 100 25 94 70 05/16/21 15:45 96 22 200/57 05/16/21 15:44 99 206/59 05/16/21 15:00 80 20 93 Mechanical Ventilator 70.00 05/16/21 14:00 81 19 93 Mechanical Ventilator 70.00 05/16/21 13:12 83 174/56 05/16/21 13:06 Mechanical Ventilator 70.00 05/16/21 13:00 36.9 82 20 95 Mechanical Ventilator 80.00 05/16/21 12:53 82 104/41 I & O 05/17/21 07:00 Intake Total 550 ml Output Total 2080 ml Balance -1530 ml Height & Weight Height: 5'10.00" Weight: 278lbs. 9.6oz. 126.203680ta; 39.54 BMI Method:Stated General Appearance: No Apparent Distress, WD/WN, Chronically ill, Obese, Other (sedated) Respiratory: Lungs Clear, Other (vent) Cardiovascular: Regular Rate, Rhythm Gastrointestinal: normal bowel sounds, non tender, soft Extremity: Pedal Edema Neurologic/Psychiatric: Other Results Lab Laboratory Tests 05/15/21 20:27 05/16/21 02:55 05/17/21 03:31 Assessment/Plan Assessment/Plan (Tele-ICU Physician , Progress Note ) Available chart/ vitals / labs / Images reviewed Video assessment done using teleICU camera, rest of exam as per RN Discussed with RN. Events overnight: I/o neg 1700 VENT SETTINGS- 500 - 16 -60% peep 5 ABG reviewed Sedation: ativan 4/h propofol 25 , RASS -3 propofol TGL 419 05/16 Pressors: Drips: ativan propofol Consultants: [place] Hospital course: -05/14 - transferred form [facility] -70 yo M came intubated for hypercarbic resp failure( failed BIPAP ) 05/16 - developed Sz like activity -> to VF arrest, shocked x 1 CPR done for 5 min, CTH neg , no TTM 05/16 - ECHO - EF 40 % Intubated: 05/14 SBT - not candidate today Blood cx - 05/15 - neg Sputum cx ? A/P Acute on chronic hypercarbic hypoxic resp failure 05/14 intubated after failed BIPAP in OSH , AC 16, Vt 500 FiO2 40% PEEP 5 05/17 - increased need for O@ - will try diuresis since cxr looks wet Suspected arrythmias -05/16 S/p VF arrest, shocked x 1 CPR done for 5 min 05/16 - no TTM was initiated - cards follow Suspected Sz 05/16 - CTH negative -started on IV Kepra 05/16 ativan gtt CAD, CABG 6 , multiple PCTA - as per cardiologuy CHF - EF 05/2021 EF40-45%, grade 1 diastolic dysfunction. Dilated left atrium, pulmonary artery pressure of 25-30 mmHg. CKD - stable Possible PNA = diffuse paranasal sinusitis on CT - vanco cefemipme 05/14 COPD - cont nebs , no steroid today - follow if will respontd to diuresis DM II - as per PCP Status post lumbar surgery done in May 2019 -prolonged intubation and complex recovery Diabetes mellitus, followed and managed by primary care physician Obesity, severe SIDNEY/ OHV ? -nonocompliant Lines : R IF 05/15 , (Central Line Necessity Reviewed) Alves: 05/14 O/16 - can not locate on CXR - will discuss with radiology Analgesia: fentanyl prn Sedation: rass-3 HOB Elevation: confirmed Nutrition: will start TF when confirm OG placemnt VTE Prophylaxis: [id number] Stress Ulcer Prophylaxis: pepsid Glycemic Control: + Plans in collaboration with bedside consultants and IM MDs. Discussed with RN to reach out if any questions or concerns A total of 38 minutes of critical care time was devoted to this patient today, required to treat and/or prevent further deterioration of critical care condition ( as above ) . [id number] SHULZHENKO,BUBBA V MD May 17, 2021 12:46
[2021-05-17 14:51] VITALS: BP 145/51
[2021-05-17] MEDS: BUMETANIDE 1 MG/4 ML (BUMEX) VIAL IV SCH (18:06)
[2021-05-17] MEDS: ENOXAPARIN 40 MG/0.4 ML (LOVENOX) SYR SC SCH (18:06)
[2021-05-17 18:56] VITALS: BP 171/58
[2021-05-17] MEDS: VANCOMYCIN 2000 MG/NS 500 ML IVPB IV SCH ×2 (21:43)
[2021-05-17 22:46] VITALS: BP 171/58
[2021-05-18] MEDS: inSUlin ASPART (NovoLOG) 1 UNIT/0.01 ML (CHARGE PER UNIT) SC SCH ×3 (00:20→14:31)
[2021-05-18] MEDS: niCARdipine IV 50 MG in NS (IVPB) 230 ML IV SCH ×2 (00:45→10:45)
[2021-05-18 02:39] VITALS: BP 134/47
[2021-05-18 03:04] LABS: BASOPHILS % (AUTO) 1 % (0-10); EOSINOPHILS # (AUTO) 0.4 10^3/uL (0.0-0.3); EOSINOPHILS % (AUTO) 5 % (0-10); HEMATOCRIT 36 % (40-54); HEMOGLOBIN 11.5 g/dL (13.3-17.7); LYMPHOCYTES # (AUTO) 1.6 10^3/uL (1.0-4.0); LYMPHOCYTES % (AUTO) 18 % (12-44); MEAN CORPUSCULAR HEMOGLOBIN 31 pg (25-34); MEAN CORPUSCULAR HGB CONC 32 g/dL (32-36); MEAN CORPUSCULAR VOLUME 97 fL (80-99); MEAN PLATELET VOLUME 11.1 fL (9.0-12.2); MONOCYTES # (AUTO) 0.7 10^3/uL (0.0-1.0); MONOCYTES % (AUTO) 8 % (0-12); NEUTROPHILS # (AUTO) 5.9 10^3/uL (1.8-7.8); NEUTROPHILS % (AUTO) 68 % (42-75); PLATELET COUNT 151 10^3/uL (130-400); WHITE BLOOD COUNT 8.6 10^3/uL (4.3-11.0)
[2021-05-18 03:22] LABS: CHLORIDE 105 MMOL/L (98-107); POTASSIUM 3.7 MMOL/L (3.6-5.0); SODIUM 143 MMOL/L (135-145)
[2021-05-18 03:23] LABS: CALCIUM 8.8 MG/DL (8.5-10.1)
[2021-05-18 03:24] LABS: GLUCOSE 159 MG/DL (70-105); TRIGLYCERIDES 394 MG/DL (<150)
[2021-05-18 03:25] LABS: CARBON DIOXIDE 25 MMOL/L (21-32)
[2021-05-18 03:27] LABS: CREATININE SERUM 1.12 MG/DL (0.60-1.30); GFR ESTIMATED > 60; PHOSPHORUS 3.2 MG/DL (2.3-4.7)
[2021-05-18 03:28] LABS: BUN/CREATININE RATIO 13
[2021-05-18 03:30] LABS: MAGNESIUM 1.6 MG/DL (1.6-2.4)
[2021-05-18 03:40] LABS: ABG BASE EXCESS 3.3 MMOL/L (-2.5-2.5); ABG OXYGEN SATURATION 99 % (94-100); ABG PCO2 45 MMHG (35-45); ABG PH 7.41 (7.37-7.43); ABG PO2 115 MMHG (79-93)
[2021-05-18 03:55] LABS: ALLENS TEST ARTLINE
[2021-05-18 03:56] LABS: INSPIRED O2 70%; PATIENT TEMP 37.5; VENTILATOR YES
[2021-05-18] MEDS: fentaNYL DRIP PRE-MIX 250 ML IV SCH (05:05)
[2021-05-18] MEDS: PROPOFOL DRIP (ICU) 100 ML IV SCH ×3 (05:06→11:53)
--- NOTE | 2021-05-18 06:04 | Progress Note - Hospitalist ---
Subjective HPI/CC On Admission Date Seen by Provider: May 18, 2021 Chief complaint: Respiratory failure requiring intubation due to CO2 narcosis and respiratory acidosis History of present illness: This is a 70-year-old white male known to me from inpatient rehab admission nearly 2 years ago after a long course at [facility] when he remained ventilator dependent and then stayed 3 weeks in inpatient rehab before requiring fpc admission who presented to [facility] with strokelike symptoms patient was found to have no evidence of a stroke but ABG revealed CO2 narcosis retention with respiratory acidosis with CO2 level of 92. Patient was placed on BiPAP but failed that so he was intubated central line was placed arterial line was placed Alves catheter placed and stabilized given cefepime and vancomycin to treat early pneumonia in addition to Diprivan for conscious sedation with gentle IV fluids and patient will be monitored closely in the ICU. Daughter was at the bedside at [facility]. She is his [employer]URABLE [employer]. He remains a full code. He has not used his CPAP machine for many years. He keeps it in the closet. PMH: Diabetes mellitus on oral therapy, obstructive sleep apnea, COPD with chronic respiratory failure, polycythemia due to chronic respiratory failure, tobacco use, chronic low back pain, peripheral neuropathy, PVD, CAD previous bypass surgery, thrombocytopenia, morbid obesity with hypoventilation syndrome, congestive heart failure with acute on chronic diastolic type with volume overload at admission to [facility], hyperlipidemia, hypertension, carpal tunnel syndrome, severe DJD of the right knee, SVT. Focused Exam Lactate Level 05/15/21 20:27: Lactic Acid Level 1.49 Objective Exam Vital Signs Vital Signs Date Time Temp Pulse Resp B/P (MAP) Pulse Ox O2 Delivery O2 Flow Rate FiO2 05/18/21 10:19 Mechanical Ventilator 45.00 05/18/21 10:08 80 20 96 55 05/18/21 10:00 37.0 Capillary Refill : Results/Procedures Lab Laboratory Tests 05/18/21 02:42 Patient resulted labs reviewed. Assessment/Plan Assessment and Plan Assess & Plan/Chief Complaint Assessment: Acute on chronic hypoxic hypercapnic respiratory failure Ventilator dependent respiratory failure status post intubation and [facility] ER Early pneumonia on chest x-ray Severe sleep apnea/obesity hypoventilation syndrome noncompliant with CPAP/BiPAP CAD previous bypass Cardiomyopathy Hypertension Diabetes Seizures 05/16/21 s/p code blue 05/16/21 Plan: Antibiotics Ventilator eICU consult appreciated Cardiology consult in the morning Echocardiogram Monitor labs 05/16/21: Ativan drip for seizures from respiratory acidosis Vent management Poor prognosis given so many hospital stays for same reason non-compliance with CPAP and CO2 narcosis 05/17/2021 Vent management appreciated IV antibiotics IV fluids Critical Care Critically Ill Patient Diagnosis/Problems Diagnosis/Problems (1) Respiratory failure, acute and chronic (2) Hx of CABG (3) Acute on chronic diastolic heart failure with preserved ejection fraction Status: Acute (4) Hx of supraventricular tachycardia (5) BPH (benign prostatic hyperplasia) (6) Obesity Status: Chronic (7) Hypertension Status: Chronic (8) PVD (peripheral vascular disease) Status: Chronic (9) Renal insufficiency Status: Chronic (10) Neuropathy Status: Chronic (11) Hyperlipemia Status: Chronic (12) CAD (coronary artery disease) Status: Chronic (13) Noncompliance Status: Chronic JASPER LONG DO May 18, 2021 06:04
[2021-05-18] MEDS: POTASSIUM CL 10MEQ/50ML IVPB 50 ML IV SCH ×4 (06:23→08:26)
[2021-05-18] MEDS: MAGNESIUM 1 GM/100 ML IVPB 100 ML IV SCH (06:23)
[2021-05-18] MEDS: KCL 20 MEQ TAB (K-DUR) PO SCH (06:23)
[2021-05-18 06:51] VITALS: BP 169/59
[2021-05-18] MEDS: RT-ALBUTEROL/IPRATROPIUM 3 ML (DUONEB) VIAL INH SCH ×2 (06:51→10:07)
--- NOTE | 2021-05-18 07:47 | Physical Therapy Progress Note ---
Therapy Progress Note Patient currently sedated and intubated. PT will continue to monitor patient status and initiate treatment when patient is medically stable and able to actively participate with skilled therapy. OTIS BALDWIN PT May 18, 2021 07:47
--- NOTE | 2021-05-18 07:49 | Occ Therapy Progress Note ---
Therapy Progress Note Pt is currently intubated. OT will continue to monitor pt status and initiate treatment when pt is medically stable and able to actively participate with skilled therapy. JOE BARNES OT May 18, 2021 07:48
--- NOTE | 2021-05-18 07:53 | Diagnostic Imaging Report ---
Indication: Ventilated patient. Dyspnea. COMPARISON: 05/17/2021 FINDINGS: Single frontal radiograph view of the chest was obtained and demonstrates indwelling endotracheal tube with tip at the clavicular heads. Sternotomy wires are noted. Lungs show overall slight improved aeration with diminished interstitial opacities. There is persistent dense consolidation of the right lower lung field. There is no large effusion on the left. No pneumothorax is seen on either side. Cardiac silhouette remains mildly enlarged. Sternotomy wires are again noted. IMPRESSION: 1. Diminished interstitial opacities suggestive of improving interstitial edema or pneumonia. 2. Persistent dense consolidation the right base suspicious for effusion with associated atelectasis and/or infiltrate. 3. Cardiomegaly. Dictated by: Dictated on workstation # [id number]
[2021-05-18] MEDS ORDERED: BUMETANIDE 1 MG/4 ML (BUMEX) VIAL IV SCH (09:00)
[2021-05-18] MEDS: LORazepam INJECTION FOR DRIP 20 MG in NS (IVPB) 90 ML IV SCH (09:48)
--- NOTE | 2021-05-18 09:56 | Pulmonary Progress Note ---
Subjective Date Seen by a Provider: May 18, 2021 Time Seen by a Provider: 09:56 Sepsis Event Evaluation Height, Weight, BMI Height: 5'10.00" Weight: 278lbs. 9.6oz. 126.150356kp; 39.54 BMI Method:Stated Focused Exam Lactate Level 05/15/21 20:27: Lactic Acid Level 1.49 Exam Exam Patient acknowledged, consented, and participated in this virtual visit which was conducted using real time audio/video Vital Signs Date Time Temp Pulse Resp B/P (MAP) Pulse Ox O2 Delivery O2 Flow Rate FiO2 05/18/21 09:48 71 20 167/57 05/18/21 09:00 36.9 72 20 93 Mechanical Ventilator 55.00 05/18/21 08:00 36.7 75 30 97 Mechanical Ventilator 55.00 05/18/21 07:00 36.7 73 20 97 Mechanical Ventilator 55.00 05/18/21 07:00 75 05/18/21 06:57 Mechanical Ventilator 55.00 05/18/21 06:51 80 20 96 70 05/18/21 06:00 36.6 69 20 97 Mechanical Ventilator 70.00 05/18/21 05:08 76 05/18/21 05:06 78 05/18/21 05:00 36.8 73 20 96 Mechanical Ventilator 70.00 05/18/21 04:00 37.1 77 19 94 Mechanical Ventilator 70.00 05/18/21 04:00 95 Mechanical Ventilator 70 05/18/21 03:00 37.4 82 20 94 Mechanical Ventilator 70.00 05/18/21 02:39 82 20 94 70 05/18/21 02:00 37.7 82 19 93 Mechanical Ventilator 70.00 05/18/21 01:00 80 05/18/21 01:00 37.9 75 19 91 Mechanical Ventilator 70.00 05/18/21 00:00 37.9 80 19 92 Mechanical Ventilator 70.00 05/17/21 23:59 94 Mechanical Ventilator 70 05/17/21 23:00 37.8 72 20 94 Mechanical Ventilator 70.00 05/17/21 22:46 69 20 95 60 05/17/21 22:00 37.6 71 20 94 Mechanical Ventilator 70.00 05/17/21 21:00 37.7 71 20 94 Mechanical Ventilator 70.00 05/17/21 20:00 96 Mechanical Ventilator 70 05/17/21 20:00 37.5 74 20 94 Mechanical Ventilator 70.00 05/17/21 19:00 37.5 72 19 94 Mechanical Ventilator 70.00 05/17/21 19:00 72 05/17/21 18:56 71 20 94 60 05/17/21 18:51 71 19 170/56 05/17/21 18:50 71 166/55 05/17/21 18:00 70 20 95 Mechanical Ventilator 70.00 05/17/21 17:00 73 20 94 Mechanical Ventilator 70.00 05/17/21 16:00 96 Mechanical Ventilator 60 05/17/21 16:00 74 20 95 Mechanical Ventilator 70.00 05/17/21 15:02 75 20 148/53 05/17/21 15:01 76 147/53 05/17/21 15:00 75 19 94 Mechanical Ventilator 70.00 05/17/21 14:51 75 20 94 60 05/17/21 14:00 75 20 94 Mechanical Ventilator 70.00 05/17/21 13:00 77 05/17/21 13:00 76 26 94 Mechanical Ventilator 70.00 05/17/21 12:00 77 24 94 Mechanical Ventilator 70.00 05/17/21 12:00 92 Mechanical Ventilator 60 05/17/21 11:00 78 19 92 Mechanical Ventilator 70.00 05/17/21 10:00 80 19 92 Mechanical Ventilator 70.00 I & O 05/18/21 07:00 Intake Total 630 ml Output Total 2980 ml Balance -2350 ml Height & Weight Height: 5'10.00" Weight: 278lbs. 9.6oz. 126.299844fz; 39.54 BMI Method:Stated General Appearance: No Apparent Distress, WD/WN, Chronically ill, Obese Respiratory: Lungs Clear Cardiovascular: Regular Rate, Rhythm Gastrointestinal: normal bowel sounds, non tender, soft Extremity: Pedal Edema Neurologic/Psychiatric: Other Results Lab Laboratory Tests 05/17/21 03:31 05/18/21 02:42 Assessment/Plan Assessment/Plan (Tele-ICU Physician , Progress Note ) Available chart/ vitals / labs / Images reviewed Video assessment done using teleICU camera, rest of exam as per RN Discussed with RN. Events overnight: I/o neg 1700 VENT SETTINGS- 500 - 16 -55% peep 5 ABG reviewed Sedation: ativan 1/h propofol 20 , fentanyl RASS -3 propofol TGL 419 05/16 , tgl 300 Pressors: Drips: ativan propofol fentanyl Consultants: mil[place] Hospital course: -05/14 - transferred form [facility] -70 yo M came intubated for hypercarbic resp failure( failed BIPAP ) 05/16 - developed Sz like activity -> to VF arrest, shocked x 1 CPR done for 5 min, CTH neg , no TTM 05/16 - ECHO - EF 40 % 05/18- cardene gtt, fentanyl gtt Intubated: 05/14 SBT - not candidate today Blood cx - 05/15 - neg Sputum cx 05/16 - usual megan A/P Acute on chronic hypercarbic hypoxic resp failure, with CHF ( edema, right effusion /infiltrate on cxr with chronically elevated right hemidiaphragm ) 05/14 intubated after failed BIPAP in OSH , AC 16, Vt 500 FiO2 40% PEEP 5 05/17 - increased need for O@ - will try diuresis since cxr looks wet 05/18 - cont diuresis 55% Suspected arrythmias -05/16 S/p VF arrest, shocked x 1 CPR done for 5 min 05/16 - no TTM was initiated - cards follow Suspected Sz 05/16 - CTH negative -started on IV Kepra 05/16 ativan gtt CAD, CABG 6 , multiple PCTA - as per cardiologuy CHF - EF 05/2021 EF40-45%, grade 1 diastolic dysfunction. Dilated left atrium, pulmonary artery pressure of 25-30 mmHg. CKD - stable Possible PNA = diffuse paranasal sinusitis on CT - vanco cefemipme 05/14 -change line to PICC 05/18 COPD - cont nebs , no steroid today - follow if will respontd to diuresis DM II - as per PCP Status post lumbar surgery done in May 2019 -prolonged intubation and complex recovery Diabetes mellitus, followed and managed by primary care physician Obesity, severe SIDNEY/ OHV ? -nonocompliant Lines : R IF 05/15 - 05/18 readdess at sitte (Central Line Necessity Reviewed) - PICC 05/[address] Alves: 05/14 O/16 Analgesia: fentanyl prn , fentanyl gtt Sedation: rass-3 HOB Elevation: confirmed Nutrition: TF started on 05/18 ( confirmed OG placemnt with radiology MD) VTE Prophylaxis: [id number] Stress Ulcer Prophylaxis: pepsid Glycemic Control: + Plans in collaboration with bedside consultants and IM MDs. Discussed with RN to reach out if any questions or concerns A total of 37 minutes of critical care time was devoted to this patient today, required to treat and/or prevent further deterioration of critical care condition ( as above ) . Critical Care: Critically Ill Patient BUBBA CANDELARIA MD May 18, 2021 09:56
[2021-05-18 10:08] VITALS: BP 169/59
[2021-05-18] MEDS: BUMETANIDE 1 MG/4 ML (BUMEX) VIAL IV SCH (10:22)
[2021-05-18] MEDS: CEFEPIME INJECTION 2,000 MG in WATER (STERILE) FOR INJECTION 20 ML IV SCH (10:22)
[2021-05-18] MEDS: LEVETIRACETAM 1,000 MG/NS 100 ML IVPB IV SCH ×2 (10:23)
[2021-05-18] MEDS: FAMOTIDINE 20MG/2ML IV (PEPCID) IVP SCH (10:23)
[2021-05-18] MEDS: LORazepam INJ 2 MG/ML (ATIVAN) VIAL IVP PRN ×5 (10:46→12:40)
[2021-05-18] MEDS ORDERED: [UNRECOGNIZED DRUG - CODE] IV (11:09)
[2021-05-18] MEDS ORDERED: [UNRECOGNIZED DRUG - CODE] IV (11:09)
[2021-05-18] MEDS ORDERED: CEFE2VIA5 IV (11:09)
[2021-05-18] MEDS ORDERED: PROP10VI IV (11:09)
[2021-05-18] MEDS ORDERED: VANC2PLA5 IV (11:09)
[2021-05-18] MEDS ORDERED: LORA2VIA30 IJ (11:09)
[2021-05-18] MEDS ORDERED: IPRA3AMP31 INH (11:09)
[2021-05-18] MEDS ORDERED: [UNRECOGNIZED DRUG - CODE] IV (11:09)
[2021-05-18] MEDS ORDERED: ENOX40DI8 SC (11:09)
[2021-05-18] MEDS ORDERED: BMT.25V4 IV (11:09)
--- NOTE | 2021-05-18 11:10 | Discharge Summary ---
Discharge Summary Hospital Course Was the Problem List Reviewed?: Yes Problems/Dx: (1) Respiratory failure, acute and chronic (2) Hx of CABG (3) Acute on chronic diastolic heart failure with preserved ejection fraction Status: Acute (4) Hx of supraventricular tachycardia (5) BPH (benign prostatic hyperplasia) (6) Obesity Status: Chronic (7) Hypertension Status: Chronic (8) PVD (peripheral vascular disease) Status: Chronic (9) Renal insufficiency Status: Chronic (10) Neuropathy Status: Chronic (11) Hyperlipemia Status: Chronic (12) CAD (coronary artery disease) Status: Chronic (13) Noncompliance Status: Chronic (14) Seizure Hospital Course Date of Admission: May 15, 2021 at 19:02 Admission Diagnosis : Family Physician/Provider: Paris Moreno MD Date of Discharge: 05/18/21 Discharge Diagnosis: Vent dependent respiratory failure, acute on chronic respiratory failure due to noncompliance with CPAP, CO2 narcosis requiring intubation, new onset seizure with status epilepticus requiring transfer to [facility] with neuro consult Hospital Course: Patient had a standard hospital course when he was moved from [facility] intubated due to CO2 narcosis and altered mental status and to protect his airway. eICU manage the ventilator. Early pneumonia was managed with IV antibiotics. Lovenox maintained for DVT prophylaxis. Patient experienced a new onset seizure which resolved with Ativan and Keppra so was placed on Ativan drip along with propofol. During weaning protocol he began having more seizures so was transferred to [facility] ICU with neuro consult. Labs and Pending Lab Test: Laboratory Tests 05/17/21 12:20: Glucometer 181H 05/17/21 18:27: Glucometer 119H 05/18/21 02:42: White Blood Count 8.6, Red Blood Count 3.73L, Hemoglobin 11.5L, Hematocrit 36L, Mean Corpuscular Volume 97, Mean Corpuscular Hemoglobin 31, Mean Corpuscular Hemoglobin Concent 32, Red Cell Distribution Width 14.3, Platelet Count 151, Mean Platelet Volume 11.1, Immature Granulocyte % (Auto) 0, Neutrophils (%) (Auto) 68, Lymphocytes (%) (Auto) 18, Monocytes (%) (Auto) 8, Eosinophils (%) (Auto) 5, Basophils (%) (Auto) 1, Neutrophils # (Auto) 5.9, Lymphocytes # (Auto) 1.6, Monocytes # (Auto) 0.7, Eosinophils # (Auto) 0.4H, Basophils # (Auto) 0.0, Immature Granulocyte # (Auto) 0.0, Blood Gas Puncture Site ARTLINE, Blood Gas Patient Temperature 37.5, Arterial Blood pH 7.41, Arterial Blood Partial Pressure CO2 45, Arterial Blood Partial Pressure O2 115H, Arterial Blood HCO3 28H, Arterial Blood Total CO2 29.0, Arterial Blood Oxygen Saturation 99, Arterial Blood Base Excess 3.3H, Maurisio Test ARTLINE, Blood Gas Ventilator Setting YES, Blood Gas Inspired Oxygen 70%, Sodium Level 143, Potassium Level 3.7, Chloride Level 105, Carbon Dioxide Level 25, Anion Gap 13, Blood Urea Nitrogen 14, Creatinine 1.12, Estimat Glomerular Filtration Rate > 60, BUN/Creatinine Ratio 13, Glucose Level 159H, Calcium Level 8.8, Phosphorus Level 3.2, Magnesium Level 1.6, Triglycerides Level 394H Microbiology 05/16/21 MRSA Screen - Final, Complete MRSA not isolated 05/15/21 Blood Culture - Preliminary, Resulted No growth Home Meds Active Bumetanide 1 Mg/4 Ml Inj 1 Mg IV DAILY 7 Days Ativan (Lorazepam) 2 Mg/1 Ml Vial 2 Mg IJ IV 7 Days Keppra IV (Levetiracetam) 500 Mg/5 Ml Vial 1,000 Mg IV BID Fentanyl 1 mg/100 ml-0.9% NaCl (Fentanyl Citrate-0.9 % NaCl/Pf) 10 Mcg/1 Ml Plast..bag 10 Mcg IV UD 5 Days Propofol 10 Mg/1 Ml Vial 10 Mg IV UD 5 Days Cardene I.v. (Nicardipine HCl) 25 Mg/10 Ml Ampul 25 Mg IV UD 2 Days Enoxaparin Sodium 40 Mg/0.4 Ml Syringe 40 Mg SC Q24H 7 Days Iprat-Albut 0.5-3(2.5) mg/3 ml (Ipratropium/Albuterol Sulfate) 3 Ml Ampul.neb 3 Ml INH RTQ4HR 7 Days Vanco 2 Gram/500 ml-0.9% NaCl (Vancomycin/0.9 % Sod Chloride) 2 Gm/500 Ml Plast..bag 2 Gm IV DAILY 5 Days Cefepime HCl 2 Gm Vial 2 Gm IV BID 5 Days Reported Proair Hfa (Albuterol Sulfate) 1 Puff Puff 2 Puff IH Q4H PRN Albuterol Sulfate 2.5 Mg/0.5 Ml Vial.neb 2.5 Mg INH Q4H PRN Mucinex (Guaifenesin) 600 Mg Tab.er.12h 600 Mg PO BID PRN Metformin HCl 500 Mg Tablet 500 Mg PO HS Neurontin (Gabapentin) 300 Mg Capsule 600 Mg PO BID TAKES 2 (300MG) CAPS Hydrocodone-Acetamin 5-325 mg (Hydrocodone/Acetaminophen) 1 Each Tablet 1 Ea PO BID PRN Mirtazapine 15 Mg Tablet 15 Mg PO HS Glimepiride 2 Mg Tablet 2 Mg PO DAILY Simvastatin 40 Mg Tablet 40 Mg PO HS Voltaren (Diclofenac Sodium) 100 Gm Gel..gram. 1 Applic TP QID Sildenafil (Sildenafil Citrate) 20 Mg Tablet 20 Mg PO TID LAST FILLED 12-24-2020 #270/90 DAY SUPPLY Metoprolol Tartrate 25 Mg Tablet 25 Mg PO BID Flomax (Tamsulosin HCl) 0.4 Mg Cap 0.4 Mg PO HS Furosemide 40 Mg Tablet 40 Mg PO DAILY Aspirin EC (Aspirin) 81 Mg Tablet.dr 81 Mg PO DAILY Clopidogrel (Clopidogrel Bisulfate) 75 Mg Tablet 75 Mg PO DAILY Multivitamins with Minerals (Multivitamin with Minerals) 1 Each Tablet 1 Tab PO DAILY Assessment/Pt Instructions [facility] ICU with neuro consult Discharge Planning: <30 minutes discharge planning Discharge Physical Examination Vital Signs Vital Signs Date Time Temp Pulse Resp B/P (MAP) Pulse Ox O2 Delivery O2 Flow Rate FiO2 05/18/21 10:19 Mechanical Ventilator 45.00 05/18/21 10:08 80 20 96 55 05/18/21 10:00 37.0 General Appearance: No Apparent Distress, WD/WN, Chronically ill Allergies: Coded Allergies: No Known Drug Allergies (Verified , 05/17/19) Discharge Summary Date of Admission May 15, 2021 at 19:02 Date of Discharge Discharge Date: May 18, 2021 Admission Diagnosis Assessment: Acute on chronic hypoxic hypercapnic respiratory failure Ventilator dependent respiratory failure status post intubation and [facility] ER Early pneumonia on chest x-ray Severe sleep apnea/obesity hypoventilation syndrome noncompliant with CPAP/BiPAP CAD previous bypass Cardiomyopathy Hypertension Diabetes Plan: Antibiotics Ventilator eICU consult appreciated Cardiology consult in the morning Echocardiogram Monitor labs Discharge Diagnosis Assessment: Acute on chronic hypoxic hypercapnic respiratory failure Ventilator dependent respiratory failure status post intubation and [facility] ER Early pneumonia on chest x-ray Severe sleep apnea/obesity hypoventilation syndrome noncompliant with CPAP/BiPAP CAD previous bypass Cardiomyopathy Hypertension Diabetes Seizures 05/16/21 s/p code blue 05/16/21 Plan: Antibiotics Ventilator eICU consult appreciated Cardiology consult in the morning Echocardiogram Monitor labs 05/16/21: Ativan drip for seizures from respiratory acidosis Vent management Poor prognosis given so many hospital stays for same reason non-compliance with CPAP and CO2 narcosis 05/17/2021 Vent management appreciated IV antibiotics IV fluids (1) Respiratory failure, acute and chronic (2) Hx of CABG (3) Acute on chronic diastolic heart failure with preserved ejection fraction Status: Acute (4) Hx of supraventricular tachycardia (5) BPH (benign prostatic hyperplasia) (6) Obesity Status: Chronic (7) Hypertension Status: Chronic (8) PVD (peripheral vascular disease) Status: Chronic (9) Renal insufficiency Status: Chronic (10) Neuropathy Status: Chronic (11) Hyperlipemia Status: Chronic (12) CAD (coronary artery disease) Status: Chronic (13) Noncompliance Status: Chronic JASPER LONG DO May 18, 2021 11:10
[2021-05-18 11:53] VITALS: BP 155/48
--- NOTE | 2021-05-18 13:16 | Cardiology Progress Note ---
Subjective Date Seen by Provider: May 18, 2021 Time Seen by Provider: 11:00 Subjective/Events-last exam Patient is sedated and intubated, had prolonged seizure activity today, being transferred to [facility] Review of Systems General: Other (Unable to provide review of system) Focused Exam Lactate Level 05/15/21 20:27: Lactic Acid Level 1.49 Objective-Cardiology Exam Last Set of Vital Signs Vital Signs 05/18/21 05/18/21 05/18/21 10:08 11:53 12:00 Temp 38.3 Pulse 82 Resp 19 B/P (MAP) 155/48 Pulse Ox 96 O2 Delivery Mechanical Ventilator O2 Flow Rate 45.00 FiO2 55 Capillary Refill : I&O Intake and Output 05/18/21 00:00 Intake Total 630 ml Output Total 2355 ml Balance -1725 ml Intake Oral 0 ml IV Total 630 ml Output Urine Total 2355 ml General: Other (Sedated and intubated) HEENT: Atraumatic Neck: Supple Lungs: Normal Air Movement, Other Heart: Normal S1, Normal S2 Abdomen: Normal Bowel Sounds Extremities: No Clubbing Neuro: Other (Sedated and intubated) Psych/Mental Status: Other (Sedated and intubated) Results Lab Laboratory Tests 05/18/21 02:42 A/P-Cardiology Admission Diagnosis Acute respiratory failure COPD CAD HTN Assessment/Plan Status post acute respiratory failure, intubated, acute exacerbation of COPD with severe sleep apnea, hypercapnia with hypoventilation, ventilator dependent, managed by primary care team. Seizure, had prolonged seizure today, maintained on Ativan drip, being transferred to [facility] for neurology evaluation Coronary artery disease history of CABG 6 done in 2012, has been followed by Dr. Adkins. History of multiple catheterizations and recall having small vessel disease, continue conservative management at this time. Congestive heart failure, echo was done showing left ventricular systolic function mildly reduces, EF 40-45%, grade 1 diastolic dysfunction. Dilated left atrium, pulmonary artery pressure of 25-30 mmHg. Chronic kidney disease stage III, continue to monitor Hypertension, continue to monitor Hyperlipidemia, maintained on statin as outpatient, continue to monitor COPD, history of prolonged intubation Generalized weakness and debility Status post lumbar surgery done in May 2019, prolonged and complex recovery Diabetes mellitus, followed and managed by primary care physician Obesity History of tobaccoism HANANE FUENTES MD May 18, 2021 1:16 pm
[2021-05-18] MEDS ORDERED: TROUGH ORDER-PHARMACY XX NR (20:00)
== END 2021-05-18 12:50 | disposition short-term general hospital (02) | DRG 208 ==
LOC: ICU 19:02
PROVIDERS: ADMIT Internal Medicine; ATTEND Internal Medicine
PROC: 5A1945Z Respiratory Ventilation, 24-96 Consecutive Hours (ICD-10-PCS; principal; 2021-05-15)
PROC: 0BH17EZ Insertion of Endotracheal Airway into Trachea, Via Natural or Artificial Opening (ICD-10-PCS; 2021-05-15)
DX: J96.22 Acute and chronic respiratory failure with hypercapnia (principal); I50.33 Acute on chronic diastolic (congestive) heart failure; E87.2 Acidosis; I13.0 Hypertensive heart and chronic kidney disease with heart failure and stage 1 through stage 4 chronic kidney disease, or unspecified chronic kidney disease; Z68.41 Body mass index [BMI] 40.0-44.9, adult; E11.51 Type 2 diabetes mellitus with diabetic peripheral angiopathy without gangrene; Z79.84 Long term (current) use of oral hypoglycemic drugs; G47.33 Obstructive sleep apnea (adult) (pediatric); G89.29 Other chronic pain; M54.9 Dorsalgia, unspecified; E11.42 Type 2 diabetes mellitus with diabetic polyneuropathy; I25.10 Atherosclerotic heart disease of native coronary artery without angina pectoris; Z95.1 Presence of aortocoronary bypass graft; E66.01 Morbid (severe) obesity due to excess calories; E78.00 Pure hypercholesterolemia, unspecified; N18.30 Chronic kidney disease, stage 3 unspecified; N40.0 Benign prostatic hyperplasia without lower urinary tract symptoms; M19.90 Unspecified osteoarthritis, unspecified site; R53.81 Other malaise; Z87.891 Personal history of nicotine dependence; Z79.82 Long term (current) use of aspirin; Z79.899 Other long term (current) drug therapy
CPT/HCPCS: 36415; 70450; 71045; 80048; 80076; 81000; 82805; 82947; 83605; 83735; 84100; 84146; 84478; 85025; 87040; 87070; 87081; 87205; 93005; 93306; 94002; 94003; 94640; 94799

== ENCOUNTER → 2022-06-24 | Outpatient (CLI) | payer OTHER, MEDICARE ==
[~2022-06-24] MED LIST changes: +ALB0.5V INH; +BMT.25V4 IV; +CEFE2VIA5 IV; +GABA300C PO; +GLIM2TAB4 PO; +GUAI600T43 PO; +LORA2VIA30 IJ; +MIRT-68 PO; +POTA-169 PO; +POTA-179 PO; -POTA20TA15 PO; -POTA20TA8 PO; +PROP10VI IV; -QUET25TA34 PO; +QUET25TA35 PO; -QUET50TA22 PO; +QUET50TA23 PO; +RT-ALBUINH IH; +SIMV40TA25 PO; -SULF1TAB35 PO; +SULF1TAB38 PO; +VANC2PLA5 IV; +VENL-48 PO; +[UNRECOGNIZED DRUG - CODE] IV; +[UNRECOGNIZED DRUG - CODE] IV; +[UNRECOGNIZED DRUG - CODE] IV
[2022-06-24 10:12] LABS: CALCIUM 8.8 MG/DL (8.5-10.1); CREATININE SERUM 1.42 MG/DL (0.60-1.30); MAGNESIUM 1.7 MG/DL (1.6-2.4); POTASSIUM 4.6 MMOL/L (3.6-5.0)
== END ==
LOC: LABNPT 09:42
PROVIDERS: ATTEND Family Medicine
DX: Z01.89 Encounter for other specified special examinations (principal)
CPT/HCPCS: 80048; 83735

== ENCOUNTER 2022-10-28 16:32 | Inpatient (IN) | payer MEDICARE ==
[~2022-10-28] VITALS: Ht 175.3 cm; Wt 132.0 kg
[~2022-10-28 16:32] MED LIST changes: +ALBU8.5H6 IH; -RT-ALBUINH IH
[2022-10-28] MEDS ORDERED: MELATONIN 3 MG TABLET PO PRN (17:15)
[2022-10-28] MEDS ORDERED: CALCIUM CARBONATE 500 MG (TUMS) TAB.CHEW PO PRN (17:15)
[2022-10-28] MEDS ORDERED: ONDANSETRON 4 MG/2 ML (SDV) Z0FRAN IV PRN (17:15)
[2022-10-28] MEDS ORDERED: MILK OF MAGNESIA 400 MG/5 ML 30 ML UDC PO PRN (17:15)
[2022-10-28] MEDS ORDERED: ONDANSETRON 4 MG (ZOFRAN) ORAL DISSOLVE TAB PO PRN (17:15)
[2022-10-28] MEDS ORDERED: morphine INJ 4 MG/ML 1 ML (VIAL/SYRINGE) IV PRN (17:15)
[2022-10-28] MEDS ORDERED: LIDOCAINE UROJET 2% GEL 10 ML PKG TOP ONE (17:15)
[2022-10-28] MEDS ORDERED: ACETAMINOPHEN 325 MG TABLET PO PRN (17:15)
[2022-10-28] MEDS ORDERED: NS IV 500 ML 500 ML IV PRN (17:15)
[2022-10-28] MEDS ORDERED: polyethylene glycoL POWDER 17 GM (MIRALAX) PACK PO PRN (17:15)
[2022-10-28] MEDS ORDERED: PHARMACY TO DOSE IV SCH (17:15)
[2022-10-28] MEDS ORDERED: diphenhydrAMINE 25 MG TAB (BENADRYL) PO PRN (17:15)
[2022-10-28] MEDS ORDERED: BISACODYL 10 MG SUPP (DULCOLAX) PR PRN (17:15)
[2022-10-28] MEDS ORDERED: diphenhydrAMINE 50 MG/ML INJ (BENADRYL) IVP PRN (17:15)
[2022-10-28] MEDS ORDERED: ANTACID SUSP 30 ML UDC (MYLANTA) PO PRN (17:15)
[2022-10-28] MEDS ORDERED: LACTULOSE SYRUP 10GM/15ML (ENULOSE) 30ML UDC PO PRN (17:15)
[2022-10-28 20:16] VITALS: BP 112/53
[2022-10-28 20:20] LABS: ABG BASE EXCESS 5.5 MMOL/L (-2.5-2.5); ABG OXYGEN SATURATION 100 % (94-100); ABG PCO2 62 MMHG (35-45); ABG PO2 134 MMHG (79-93); ABG TCO2 32.5 MMOL/L (21.0-31.0)
--- NOTE | 2022-10-28 20:20 | Diagnostic Imaging Report ---
EXAMINATION: Chest 1 view HISTORY: Hypoxia. Shortness of breath. COMPARISON: 05/18/2021. FINDINGS: Stable cardiomegaly with post-CABG changes. There is central pulmonary vascular congestion. Elevated right hemidiaphragm is noted. No evidence of pneumothorax. IMPRESSION: 1. Cardiomegaly with central pulmonary vascular congestion and pulmonary edema. 2. Stable elevated right hemidiaphragm. Dictated by: Dictated on workstation # [id number]
[2022-10-28 20:26] LABS: ABG PH 7.33 (7.37-7.43)
[2022-10-28 20:27] LABS: ALLENS TEST NEG; INSPIRED O2 10%; PATIENT TEMP 38.9; VENTILATOR YES
[2022-10-28] MEDS: NS IV 1000 ML 1,000 ML IV SCH (20:29)
--- NOTE | 2022-10-28 20:39 | Progress Note ---
Progress Note This is a 71yoWM clinic patient of Dr Moreno who presents to higher level of care from [facility] med-surg status after he was admitted the night before for fever. Patient is 2 weeks post COVID and overall handled that condition well except for weakness who was given Rocephin empirically this morning for bronchitis who progressively worsened throughout the day until he was nearly needing biPAP so the decision was made to move him to higher level of care since [facility] does not have ICU capabilities. IV abx will be broadened out along with supportive care and biPAP. Patient has a long hx of non-compliance with CPAP at home. Patient also has PVD and CAD hx, Past medical history: diabetes mellitus on oral therapy, obstructive sleep apnea, COPD with chronic respiratory failure, polycythemia due to chronic respiratory failure, tobacco use, chronic low back pain, peripheral neuropathy, PVD, CAD previous bypass surgery, thrombocytopenia, morbid obesity with hypoventilation syndrome, congestive heart failure with acute on chronic diastolic type with volume overload at admission to [facility], hyperlipidemia, hypertension, carpal tunnel syndrome, severe DJD of the right knee. He also has a history of SVT. (1) Myopathy (2) COPD (chronic obstructive pulmonary disease) (3) Polycythemia (4) Diabetes mellitus (5) Back pain (6) CAD (coronary artery disease) (7) Hyperlipemia (8) Neuropathy (9) Renal insufficiency (10) PVD (peripheral vascular disease) (11) Hypertension (12) Obesity (13) Respiratory failure, acute and chronic (14) Arthritis of right knee (15) Obesity hypoventilation syndrome (16) CO2 narcosis (17) SIDNEY on CPAP (18) Hx of supraventricular tachycardia (19) Decubitus ulcer (20) Urinary retention (21) BPH (benign prostatic hyperplasia) (22) UTI due to Klebsiella species (23) Hyperkalemia (24) Renal failure (25) CO2 retention (26) Postoperative wound dehiscence (27) Elevated brain natriuretic peptide (BNP) level (28) Clot retention of urine (29) Wound drainage (30) Hx of CABG (31) Status post lumbar spine surgery for decompression of spinal cord (32) Tobacco use JASPER LONG DO Oct 28, 2022 20:39
[2022-10-28] MEDS: ENOXAPARIN 40 MG/0.4 ML (LOVENOX) SYR SC SCH (20:44)
[2022-10-28] MEDS: CEFEPIME INJECTION 2,000 MG in NS (IVPB) 50 ML IV SCH (20:44)
[2022-10-28] MEDS ORDERED: RT-ALBUTEROL/IPRATROPIUM 3 ML (DUONEB) VIAL INH PRN (20:45)
[2022-10-28] MEDS: NOREPINEPHRINE 8 MG/250 ML 250 ML IV SCH (20:49)
[2022-10-28] MEDS: SENNOSIDES 8.6 MG (SENOKOT) TAB PO SCH (20:49)
[2022-10-28] MEDS: DOCUSATE SODIUM 100 MG (COLACE) CAP PO SCH (20:49)
[2022-10-28] MEDS: inSUlin ASPART (NovoLOG) 1 UNIT/0.01 ML (CHARGE PER UNIT) SC SCH (21:17)
--- NOTE | 2022-10-28 21:39 | Tele-ICU Consult ---
History of Present Illness History of Present Illness Date Seen by Provider: Oct 28, 2022 Time Seen by Provider: 21:38 History of Present Illness eICU note called for mild agitation and pCO2 retention. latest ABG 7.33/62/134, no on BiPAP 18/05, FiO2 80 %, Pt is talking though confused but not working that hard to breathe. Will continue on BiPAP but is mental status worsens or Spo2 < 90 will have to intubate. For now continue present mangament BS are diminished in both lungs probably from obestiy and COPD. Pt had COVID 2 wks ago PMH DM2, reactive polycythemia, CAD s/p CABG, PVD, obesity, SIDNEY/CPAP, Hx of SVT, CKD Cr 1.42 Allergies and Home Medications Allergies Coded Allergies: No Known Drug Allergies (Verified , 05/17/19) Home Medications Albuterol Sulfate 2.5 Mg/0.5 Ml Vial.neb, 2.5 MG INH Q4H PRN for SHORTNESS OF BREATH, (Reported) Albuterol Sulfate 1 Puff Puff, 2 PUFF IH Q4H PRN for SHORTNESS OF BREATH, (Reported) Aspirin 81 Mg Tablet.dr, 81 MG PO DAILY, (Reported) Bumetanide 1 Mg/4 Ml Inj, 1 MG IV DAILY Prescribed by: JASPER LONG on 05/18/211108 Cefepime HCl 2 Gm Vial, 2 GM IV BID Prescribed by: JASPER LONG on 05/18/211108 Clopidogrel Bisulfate 75 Mg Tablet, 75 MG PO DAILY, (Reported) Diclofenac Sodium 100 Gm Gel..gram., 1 APPLIC TP QID, (Reported) Enoxaparin Sodium 40 Mg/0.4 Ml Syringe, 40 MG SC Q24H Prescribed by: JASPER LONG on 05/18/211108 Fentanyl Citrate-0.9 % NaCl/Pf 10 Mcg/1 Ml Plast..bag, 10 MCG IV UD Prescribed by: JASPER LONG on 05/18/211108 Furosemide 40 Mg Tablet, 40 MG PO DAILY, (Reported) Gabapentin 300 Mg Capsule, 600 MG PO BID, (Reported) TAKES 2 (300MG) CAPS Glimepiride 2 Mg Tablet, 2 MG PO DAILY, (Reported) Guaifenesin 600 Mg Tab.er.12h, 600 MG PO BID PRN for CONGESTION, (Reported) Hydrocodone/Acetaminophen 1 Each Tablet, 1 EA PO BID PRN for PAIN-MODERATE (5- 7), (Reported) Ipratropium/Albuterol Sulfate 3 Ml Ampul.neb, 3 ML INH RTQ4HR Prescribed by: JASPER LONG on 05/18/211108 Levetiracetam 500 Mg/5 Ml Vial, 1,000 MG IV BID Prescribed by: JASPER LONG on 05/18/211108 Lorazepam 2 Mg/1 Ml Vial, 2 MG IJ iv Prescribed by: JASPER LONG on 05/18/211108 Metformin HCl 500 Mg Tablet, 500 MG PO HS, (Reported) Metoprolol Tartrate 25 Mg Tablet, 25 MG PO BID, (Reported) Mirtazapine 15 Mg Tablet, 15 MG PO HS, (Reported) Multivitamin with Minerals 1 Each Tablet, 1 TAB PO DAILY, (Reported) Nicardipine HCl 25 Mg/10 Ml Ampul, 25 MG IV UD Prescribed by: JASPER LONG on 05/18/211108 Propofol 10 Mg/1 Ml Vial, 10 MG IV UD Prescribed by: JASPER LONG on 05/18/211108 Sildenafil Citrate 20 Mg Tablet, 20 MG PO TID, (Reported) LAST FILLED 12-24-2020 #270/90 DAY SUPPLY Simvastatin 40 Mg Tablet, 40 MG PO HS, (Reported) Tamsulosin HCl 0.4 Mg Cap, 0.4 MG PO HS, (Reported) Vancomycin/0.9 % Sod Chloride 2 Gm/500 Ml Plast..bag, 2 GM IV DAILY Prescribed by: JASPER LONG on 05/18/211108 Past Medical/Social/Family Hx Immunizations Up To Date Tetanus Booster (TDap): Unknown TB Skin Test: None Date of Pneumonia Vaccine: Jul 15, 2018 Current Status Primary Language: Danish Review of Systems Constitutional: see HPI Psychiatric/Neurological: Anxiety Focused Exam Height, Weight, BMI Height: 5'10.00" Weight: 278lbs. 9.6oz. 126.145035kb; 40.64 BMI Method:Stated Exam Exam Patient acknowledged, consented, and participated in this virtual visit which was conducted using real time audio/video Vital Signs Date Time Temp Pulse Resp B/P (MAP) Pulse Ox O2 Delivery O2 Flow Rate FiO2 10/28/22 20:28 88 95 80 10/28/22 20:16 88 44 95 80.00 10/28/22 19:45 92 NIV CPAP Height & Weight Height: 5'10.00" Weight: 278lbs. 9.6oz. 126.696837tv; 40.64 BMI Method:Stated General Appearance: Mild Distress Respiratory: Decreased Breath Sounds Cardiovascular: Irregularly Irregular Gastrointestinal: normal bowel sounds Extremity: Pedal Edema Assessment/Plan Assessment/Plan Pt is talking though confused but not working that hard to breathe. Will continue on BiPAP but is mental status worsens or Spo2 < 90 will have to intubate. For now continue present catarinaament Sidney Parikh MD Critical Care: Critically Ill Patient Time spent with patient (mins): 25 SHANNAN PARIKH MD Oct 28, 2022 21:39
[2022-10-28] MEDS: RT-ALBUTEROL/IPRATROPIUM 3 ML (DUONEB) VIAL INH SCH (21:43)
[2022-10-28 21:44] VITALS: BP 126/61
[2022-10-28 22:28] LABS: ABG BASE EXCESS 7.4 MMOL/L (-2.5-2.5); ABG OXYGEN SATURATION 50 % (94-100); ABG TCO2 36.2 MMOL/L (21.0-31.0); ALLENS TEST YES-POS; INSPIRED O2 80%; VENTILATOR NO
[2022-10-28 22:29] LABS: PATIENT TEMP 37
[2022-10-28 22:31] LABS: ABG PCO2 75 MMHG (35-45); ABG PH 7.28 (7.37-7.43); ABG PO2 31 MMHG (79-93)
[2022-10-28] MEDS: VANCOMYCIN 1 GM/NS 250 ML IVPB IV SCH ×4 (22:58→23:57)
[2022-10-28 23:31] LABS: BASOPHILS % (AUTO) 0 % (0-10); EOSINOPHILS % (AUTO) 1 % (0-10); HEMATOCRIT 34 % (40-54); HEMOGLOBIN 10.4 g/dL (13.3-17.7); LYMPHOCYTES # (AUTO) 1.2 10^3/uL (1.0-4.0); LYMPHOCYTES % (AUTO) 18 % (12-44); MEAN CORPUSCULAR HEMOGLOBIN 29 pg (25-34); MEAN CORPUSCULAR HGB CONC 31 g/dL (32-36); MEAN CORPUSCULAR VOLUME 94 fL (80-99); MEAN PLATELET VOLUME 10.7 fL (9.0-12.2); MONOCYTES # (AUTO) 0.7 10^3/uL (0.0-1.0); MONOCYTES % (AUTO) 10 % (0-12); NEUTROPHILS % (AUTO) 71 % (42-75); PLATELET COUNT 151 10^3/uL (130-400); WHITE BLOOD COUNT 6.9 10^3/uL (4.3-11.0)
[2022-10-28 23:45] LABS: FIBRIN DEGRADATION PRODUCTS 0.85 UG/ML (0.00-0.49); PROTHROMBIN TIME PATIENT 13.3 SEC (12.2-14.7)
[2022-10-28 23:51] LABS: ALBUMIN 3.3 GM/DL (3.2-4.5); BILIRUBIN,TOTAL 0.3 MG/DL (0.1-1.0); CALCIUM 8.2 MG/DL (8.5-10.1); CREATININE SERUM 1.72 MG/DL (0.60-1.30); POTASSIUM 4.9 MMOL/L (3.6-5.0); TOTAL PROTEIN 6.5 GM/DL (6.4-8.2)
[2022-10-29] MEDS ORDERED: VANCOMYCIN 500 MG/NS 100 ML IV ONE ×2
[2022-10-29] MEDS: RT-ALBUTEROL/IPRATROPIUM 3 ML (DUONEB) VIAL INH SCH ×6 (02:32→22:07)
[2022-10-29 02:33] VITALS: BP 110/56
[2022-10-29] MEDS: NOREPINEPHRINE 8 MG/250 ML 250 ML IV SCH ×3 (03:14→23:29)
[2022-10-29 05:37] LABS: ABG BASE EXCESS 4.9 MMOL/L (-2.5-2.5); ABG OXYGEN SATURATION 99 % (94-100); ABG PCO2 69 MMHG (35-45); ABG PO2 106 MMHG (79-93); ABG TCO2 33.4 MMOL/L (21.0-31.0)
[2022-10-29 05:41] LABS: ALLENS TEST YES-POS; INSPIRED O2 80%
[2022-10-29 05:42] LABS: PATIENT TEMP 37; VENTILATOR NO
[2022-10-29 05:43] LABS: ABG PH 7.28 (7.37-7.43)
[2022-10-29 05:53] LABS: BILIRUBIN,URINE NEGATIVE (NEGATIVE); CLARITY,URINE SL CLOUDY; COLOR,URINE YELLOW; GLUCOSE, URINE (UA) NEGATIVE (NEGATIVE); KETONES,URINE NEGATIVE (NEGATIVE); LEUKOCYTE ESTERASE ,URINE TRACE (NEGATIVE); NITRITE,URINE NEGATIVE (NEGATIVE); PH,URINE 5.5 (5-9); PROTEIN,URINE 1+ (NEGATIVE)
[2022-10-29 06:01] LABS: ALBUMIN 2.9 GM/DL (3.2-4.5); BILIRUBIN,TOTAL 0.3 MG/DL (0.1-1.0); CALCIUM 7.9 MG/DL (8.5-10.1); CREATININE SERUM 1.65 MG/DL (0.60-1.30); MAGNESIUM 1.5 MG/DL (1.6-2.4); PHOSPHORUS 3.6 MG/DL (2.3-4.7); POTASSIUM 5.6 MMOL/L (3.6-5.0); TOTAL PROTEIN 6.8 GM/DL (6.4-8.2)
[2022-10-29 06:05] LABS: BASOPHILS % (AUTO) 0 % (0-10); EOSINOPHILS % (AUTO) 1 % (0-10); HEMATOCRIT 33 % (40-54); HEMOGLOBIN 10.3 g/dL (13.3-17.7); LYMPHOCYTES # (AUTO) 2.1 10^3/uL (1.0-4.0); LYMPHOCYTES % (AUTO) 32 % (12-44); MEAN CORPUSCULAR HEMOGLOBIN 29 pg (25-34); MEAN CORPUSCULAR HGB CONC 31 g/dL (32-36); MEAN CORPUSCULAR VOLUME 94 fL (80-99); MEAN PLATELET VOLUME 11.3 fL (9.0-12.2); MONOCYTES # (AUTO) 0.7 10^3/uL (0.0-1.0); MONOCYTES % (AUTO) 11 % (0-12); NEUTROPHILS # (AUTO) 3.7 10^3/uL (1.8-7.8); NEUTROPHILS % (AUTO) 56 % (42-75); PLATELET COUNT 143 10^3/uL (130-400); WHITE BLOOD COUNT 6.7 10^3/uL (4.3-11.0)
[2022-10-29 06:09] LABS: SMEAR SCAN COMMENT YES
[2022-10-29 06:13] LABS: AMORPHOUS SEDIMENT,UR LARGE AMOR URATES /LPF; BACTERIA,URINE MODERATE /HPF; SQUAMOUS EPITHELIAL CELL,UR 0-2 /HPF
[2022-10-29] MEDS: KCL 20 MEQ TAB (K-DUR) PO SCH (06:20)
[2022-10-29] MEDS: POTASSIUM CL 10MEQ/50ML IVPB 50 ML IV SCH (06:20)
[2022-10-29] MEDS: MAGNESIUM 1 GM/100 ML IVPB 100 ML IV SCH ×3 (06:21→08:41)
[2022-10-29] MEDS: inSUlin ASPART (NovoLOG) 1 UNIT/0.01 ML (CHARGE PER UNIT) SC SCH ×4 (06:21→21:24)
[2022-10-29 07:37] VITALS: BP 110/60
[2022-10-29] MEDS: CEFEPIME INJECTION 2,000 MG in NS (IVPB) 50 ML IV SCH (08:41)
[2022-10-29] MEDS: SENNOSIDES 8.6 MG (SENOKOT) TAB PO SCH ×2 (08:49→20:31)
[2022-10-29] MEDS: DOCUSATE SODIUM 100 MG (COLACE) CAP PO SCH ×2 (08:49→20:31)
[2022-10-29] MEDS: NS IV 1000 ML 1,000 ML IV SCH ×2 (08:50→18:21)
--- NOTE | 2022-10-29 09:14 | Tele-ICU Progress Note ---
Subjective Date Seen by a Provider: Oct 29, 2022 Subjective/Events-last exam This virtual visit was conducted using real time audio/video. Thank you for asking us to see this patient for respiratory insufficiency due to AECOPD, SIDNEY, probable OHS. Probable pna/bronchitis. Elev. Troponins. PE: VSS. O2 sat 97% on Bip 16/8, 80%. HEENT: No obvious masses, adenopathy or JVD. Chest: Diminished w wheezing on auscultation. CV: RRR S1 S2 No murmur or added sounds. Abd: Non-tender. Bowel sounds Y. : Unremarkable. Alves Y. [employer]/psychiatric: Grossly intact. No obvious focal findings. Extremities: Trace edema. Capillary refill < 3 seconds. Skin: unremarkable. Results: Elevated BUN 38, Creat 1.65, Trop 0.895. Decreased . B.28/69/106 on 80%.. CXR: Cardiomeg., congested. Available chart/ vitals / labs / images reviewed. Video assessment done using teleICU camera, rest of exam as per RN. A/P: Respiratory insufficiency: Continue present management with BiPAP 16/8, 80%, weaning as chasity. Cont Duonebs, PRN Prec. Monitor for increasing oxygenation needs and/or need for intubation. Critical Care: critically ill patient. Cont. IVF, abx,SSI. Marilou. Discussed with JACY Ralph. Asked RN to reach out to eICU if any questions or concerns later. Time spent with patient/coordination of care with other health professionals (mins): 32 Sepsis Event Evaluation Height, Weight, BMI Height: 5'10.00" Weight: 278lbs. 9.6oz. 126.574766qu; 40.64 BMI Method:Stated Focused Exam Lactate Level 10/28/22 23:15: Lactic Acid Level 0.62 Exam Exam Patient acknowledged, consented, and participated in this virtual visit which was conducted using real time audio/video Vital Signs Date Time Temp Pulse Resp B/P (MAP) Pulse Ox O2 Delivery O2 Flow Rate FiO2 10/29/22 08:00 36.3 10/29/22 08:00 61 20 109/58 (75) 97 NIV Bilevel 80.00 10/29/22 07:37 62 19 98 80.00 10/29/22 07:00 63 10/29/22 07:00 62 26 103/54 (70) 97 NIV Bilevel 80.00 10/29/22 06:00 65 21 110/56 (74) 98 NIV Bilevel 80.00 10/29/22 05:22 65 15 105/52 (69) 96 NIV Bilevel 80.00 10/29/22 04:00 88 NIV CPAP 10.00 10/29/22 04:00 77 20 106/68 (81) 95 NIV Bilevel 80.00 10/29/22 03:30 75 28 116/55 (75) 97 NIV Bilevel 80.00 10/29/22 03:00 37.0 68 21 111/54 (73) 98 NIV Bilevel 80.00 10/29/22 02:33 67 22 97 80.00 10/29/22 02:30 65 21 110/56 (74) 97 NIV Bilevel 80.00 10/29/22 02:00 67 22 118/59 (78) 98 NIV Bilevel 80.00 10/29/22 01:30 68 22 112/56 (74) 98 NIV Bilevel 80.00 10/29/22 01:00 70 10/29/22 01:00 70 23 117/54 (75) 98 NIV Bilevel 80.00 10/29/22 00:30 72 20 108/54 (72) 97 NIV Bilevel 80.00 10/29/22 00:00 73 17 119/55 (76) 98 NIV Bilevel 80.00 10/29/22 00:00 88 NIV CPAP 10.00 10/28/22 23:15 76 15 115/55 (75) 97 NIV Bilevel 80.00 10/28/22 23:00 37.0 79 12 97 NIV Bilevel 80.00 10/28/22 22:15 79 19 128/59 (82) 94 NIV Bilevel 80.00 10/28/22 22:00 79 19 160/55 (90) 95 NIV Bilevel 80.00 10/28/22 21:44 76 21 95 80.00 10/28/22 21:30 75 20 126/61 (82) 94 NIV Bilevel 80.00 10/28/22 21:00 80 19 119/62 (81) 95 NIV Bilevel 80.00 10/28/22 20:30 90 10 93/65 (74) 95 NIV Bilevel 80.00 10/28/22 20:28 88 95 80 10/28/22 20:16 88 44 95 80.00 10/28/22 20:00 93 12 112/53 (72) 94 NIV Bilevel 80.00 10/28/22 19:45 92 NIV CPAP 10/28/22 19:45 96 NIV Bilevel 80 10/28/22 19:42 88 10/28/22 19:38 38.9 100 25 132/51 (78) 86 NIV CPAP 10.00 I & O 10/29/22 07:00 Intake Total 0 ml Output Total 850 ml Balance -850 ml Height & Weight Height: 5'10.00" Weight: 278lbs. 9.6oz. 126.400302uk; 40.64 BMI Method:Stated General Appearance: Mild Distress Respiratory: Decreased Breath Sounds Cardiovascular: Irregularly Irregular Capillary Refill: Less Than 3 Seconds Gastrointestinal: normal bowel sounds Extremity: Pedal Edema Results Lab Laboratory Tests 10/28/22 23:15 10/29/22 05:00 Assessment/Plan Assessment/Plan See free text. Critical Care: Critically Ill Patient JAMES RODRIGUEZ MD Oct 29, 2022 09:14
--- NOTE | 2022-10-29 09:14 | Diagnostic Imaging Report ---
INDICATION: Dyspnea. TECHNIQUE/COMPARISON: A frontal chest was obtained at 3:51 AM and compared to 10/28/2022. FINDINGS: There is cardiomegaly with central vascular congestion. There is patchy infiltrate in the right midlung and base. There is no pneumothorax. There is some pleural fluid on the right side which appears similar to the prior study. IMPRESSION: Cardiomegaly and central vascular congestion with unchanged right-sided infiltrate and right pleural effusion. Dictated by: Dictated on workstation # [id number]
--- NOTE | 2022-10-29 10:15 | Consultation-Cardiology ---
HPI-Cardiology Cardiology Consultation: Date of Consultation 10/29/22 Time Seen by a Provider: 10:10 Date of Admission 10-28-22 Attending Physician Paris Moreno MD Admitting Physician Admitting Physician: Cintia Long DO Attending Physician: Cintia Long DO Consulting Physician Angelique Mcclure MD Primary Form Builder: Dr. Hernández HPI: Chief Complaint: NSTEMI Mr. Meehan is a 71 yr old male admitted to ICU 10 from [facility] d/t increasing SOB and AMS per report from the nurse. Pt is currently on Bi-pap and lethargic. He does nod yes and no to questions, but quickly drifts back to sleep. He denies any c/o CP. He nods yes to SOB. He denies any palpitations. He affirms that Dr. 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 He denies any recent coronary intervention. Review of Systems-Cardiology Review of Systems Other comments ROS to the extent that it could be obtained is as per HPI which is limited d/t need for Bi-pap BOE-Xbcbap-Qfumxe Hx Patient Social History Have you traveled recently?: No Immunizations Up To Date Tetanus Booster (TDap): More than 5yrs Date of Pneumonia Vaccine: Jul 15, 2018 Past Medical History PMH As described under Assessment. Family Medical History Family Medical History: Unable to obtain Allergies and Home Medications Allergies Coded Allergies: No Known Drug Allergies (Verified , 05/17/19) Patient Home Medication List Albuterol Sulfate (Albuterol Sulfate) 2.5 Mg/0.5 Ml Vial.neb, 2.5 MG INH Q4H PRN for SHORTNESS OF BREATH, (Reported) Entered as Reported by: LIBERTY OLIVEIRA on 05/16/21 131 Last Action: Reviewed Albuterol Sulfate (Ventolin Hfa) 1 Puff Puff, 2 PUFF IH Q4H PRN for SHORTNESS OF BREATH, (Reported) Entered as Reported by: LIBERTY OLIVEIRA on 05/16/21 131 Last Action: Reviewed Aspirin (Aspirin EC) 81 Mg Tablet.dr, 81 MG PO DAILY, (Reported) Entered as Reported by: NAUN HUERTA on 06/21/19 4618 Last Action: Reviewed Atorvastatin Calcium (Atorvastatin Calcium) 20 Mg Tablet, 20 MG PO HS, (Rep orted) Entered as Reported by: LIBERTY OLIVEIRA on 10/29/221243 Last Action: Reviewed Budesonide/Formoterol Fumarate (Symbicort 160-4.5 Mcg Inhaler) 160 Mcg-4.5 Mcg/Actuation Hfa.aer.ad, 2 PUFF INH BID, (Reported) Entered as Reported by: LIBERTY OLIVEIRA on 10/29/221243 Last Action: Reviewed Clopidogrel Bisulfate (Clopidogrel) 75 Mg Tablet, 75 MG PO DAILY, (Reported) Entered as Reported by: NAUN HUERTA on 06/21/19 966 Last Action: Reviewed Famotidine (Famotidine) 20 Mg Tablet, 20 MG PO BID, (Reported) Entered as Reported by: LIBERTY OLIVEIRA on 10/29/221243 Last Action: Reviewed Furosemide (Furosemide) 20 Mg Tablet, 40 MG PO DAILY, (Reported) Entered as Reported by: LIBERTY OLIVEIRA on 10/29/221243 Last Action: Reviewed Gabapentin (Neurontin) 300 Mg Capsule, 600 MG PO BID, (Reported) Entered as Reported by: LIBERTY OLIVEIRA on 10/29/221243 Last Action: Reviewed Glimepiride (Glimepiride) 2 Mg Tablet, 2 MG PO DAILY, (Reported) Entered as Reported by: LIBERTY OLIVEIRA on 05/16/21 130 Last Action: Reviewed Guaifenesin (Guaifenesin) 200 Mg Tablet, 200 MG PO BID, (Reported) Entered as Reported by: LIBERTY OLIVEIRA on 10/29/221243 Last Action: Reviewed Hydrocodone/Acetaminophen (Hydrocodone-Acetamin 5-325 mg) 1 Each Tablet, 1 EA PO BID PRN for PAIN-MODERATE (5-7), (Reported) Entered as Reported by: LIBERTY OLIVEIRA on 05/16/21 130 Last Action: Reviewed Levetiracetam (Levetiracetam) 500 Mg Tablet, 1,000 MG PO BID, (Reported) Entered as Reported by: LIBERTY OLIVEIRA on 10/29/221243 Last Action: Reviewed Losartan Potassium (Losartan Potassium) 25 Mg Tablet, 25 MG PO DAILY, (Reported) Entered as Reported by: LIBERTY OLIVEIRA on 10/29/221243 Last Action: Reviewed Mirtazapine (Mirtazapine) 15 Mg Tablet, 15 MG PO HS PRN for SLEEP, (Reported) Entered as Reported by: LIBERTY OLIVERIA on 05/16/21 1309 Last Action: Reviewed Multivitamin with Minerals (Multivitamins with Minerals) 1 Each Tablet, 1 TAB PO DAILY, (Reported) Entered as Reported by: NAUN HUERTA on 06/18/19 110 Last Action: Reviewed Sildenafil Citrate (Sildenafil) 20 Mg Tablet, 20 MG PO TID, (Reported) Entered as Reported by: NAUN HUERTA on 07/30/19 162 Last Action: Reviewed Tamsulosin HCl (Flomax) 0.4 Mg Cap, 0.4 MG PO 1800, (Reported) Entered as Reported by: LIBERTY OLIVEIRA on 10/29/22 1244 Last Action: Reviewed Discontinued Medications Bumetanide (Bumetanide) 1 Mg/4 Ml Inj, 1 MG IV DAILY Discontinued Reason: No Longer Taking Prescribed by: CINTIA LONG on 05/18/211108 Last Action: Discontinued Cefepime HCl (Cefepime HCl) 2 Gm Vial, 2 GM IV BID Discontinued Reason: No Longer Taking Prescribed by: CINTIA LONG on 05/18/211108 Last Action: Discontinued Diclofenac Sodium (Voltaren) 100 Gm Gel..gram., 1 APPLIC TP QID, (Reported) Discontinued Reason: No Longer Taking Entered as Reported by: NAUN HUERTA on 07/30/19 164 Last Action: Discontinued Enoxaparin Sodium (Enoxaparin Sodium) 40 Mg/0.4 Ml Syringe, 40 MG SC Q24H Discontinued Reason: No Longer Taking Prescribed by: CINTIA LONG on 05/18/211108 Last Action: Discontinued Fentanyl Citrate-0.9 % NaCl/Pf (Fentanyl 1 mg/100 ml-0.9% NaCl) 10 Mcg/1 Ml Plast..bag, 10 MCG IV UD Discontinued Reason: No Longer Taking Prescribed by: CINTIA LONG on 05/18/211108 Last Action: Discontinued Furosemide (Furosemide) 40 Mg Tablet, 40 MG PO DAILY, (Reported) Discontinued Reason: No Longer Taking Entered as Reported by: NAUN HUERTA on 07/30/19 162 Last Action: Discontinued Gabapentin (Neurontin) 300 Mg Capsule, 600 MG PO BID, (Reported) Discontinued Reason: No Longer Taking Entered as Reported by: LIBERTY OLIVEIRA on 05/16/211308 Last Action: Discontinued Guaifenesin (Mucinex) 600 Mg Tab.er.12h, 600 MG PO BID PRN for CONGESTION, (Reported) Discontinued Reason: No Longer Taking Entered as Reported by: LIBERTY OLIVEIRA on 05/16/21 1312 Last Action: Discontinued Ipratropium/Albuterol Sulfate (Iprat-Albut 0.5-3(2.5) mg/3 ml) 3 Ml Ampul.neb, 3 ML INH RTQ4HR Discontinued Reason: No Longer Taking Prescribed by: CINTIA LONG on 05/18/211108 Last Action: Discontinued Levetiracetam (Keppra IV) 500 Mg/5 Ml Vial, 1,000 MG IV BID Discontinued Reason: No Longer Taking Prescribed by: CINTIA LONG on 05/18/211108 Last Action: Discontinued Lorazepam (Ativan) 2 Mg/1 Ml Vial, 2 MG IJ iv Discontinued Reason: No Longer Taking Prescribed by: CINTIA LONG on 05/18/211108 Last Action: Discontinued Metformin HCl (Metformin HCl) 500 Mg Tablet, 500 MG PO HS, (Reported) Discontinued Reason: No Longer Taking Entered as Reported by: LIBERTY OLIVEIRA on 05/16/211308 Last Action: Discontinued Metoprolol Tartrate (Metoprolol Tartrate) 25 Mg Tablet, 25 MG PO BID, (Reported) Discontinued Reason: Referral/FU Appt-Addtl Entered as Reported by: NAUN HUERTA on 07/30/19 1628 Last Action: Discontinued Nicardipine HCl (Cardene I.v.) 25 Mg/10 Ml Ampul, 25 MG IV UD Discontinued Reason: No Longer Taking Prescribed by: CINTIA LONG on 05/18/211108 Last Action: Discontinued Propofol (Propofol) 10 Mg/1 Ml Vial, 10 MG IV UD Discontinued Reason: No Longer Taking Prescribed by: CINTIA LONG on 05/18/211108 Last Action: Discontinued Simvastatin (Simvastatin) 40 Mg Tablet, 40 MG PO HS, (Reported) Discontinued Reason: No Longer Taking Entered as Reported by: LIBERTY OLIVEIRA on 05/16/211308 Last Action: Discontinued Tamsulosin HCl (Flomax) 0.4 Mg Cap, 0.4 MG PO HS, (Reported) Discontinued Reason: No Longer Taking Entered as Reported by: NAUN HUERTA on 07/30/19 1628 Last Action: Discontinued Vancomycin/0.9 % Sod Chloride (Vanco 2 Gram/500 ml-0.9% NaCl) 2 Gm/500 Ml Plast..bag, 2 GM IV DAILY Discontinued Reason: No Longer Taking Prescribed by: CINTIA LONG on 05/18/21 1109 Last Action: Discontinued Physical Exam-Cardiology Physical Exam Vital Signs/I&O 10/29/22 10/29/22 10/29/22 10/30/22 23:00 23:51 23:59 00:00 Temp 36.2 Pulse 71 66 Resp 28 22 B/P (MAP) 99/47 (64) 131/59 (83) Pulse Ox 88 96 O2 Delivery NIV Bilevel Vapotherm NIV Bilevel O2 Flow Rate 70.00 30.00 70.00 FiO2 95 10/30/22 10/30/22 10/30/22 10/30/22 01:00 01:00 02:00 02:26 Pulse 64 64 67 67 Resp 23 B/P (MAP) 108/80 (89) 106/80 (89) Pulse Ox 96 95 96 O2 Delivery NIV Bilevel NIV Bilevel O2 Flow Rate 70.00 70.00 70.00 10/30/22 10/30/22 10/30/22 10/30/22 03:00 03:09 04:00 04:00 Temp 36.5 Pulse 75 Resp 24 B/P (MAP) 152/74 (100) Pulse Ox 88 O2 Delivery NIV Bilevel Vapotherm Vapotherm O2 Flow Rate 70.00 40.00 30.00 80.00 FiO2 95 10/30/22 10/30/22 10/30/22 10/30/22 04:00 05:00 06:00 07:00 Pulse 68 70 73 63 Resp 20 27 21 B/P (MAP) 134/63 (86) 121/71 (88) 128/68 (88) Pulse Ox 96 89 96 O2 Delivery Vapotherm Vapotherm Vapotherm O2 Flow Rate 40.00 40.00 40.00 80.00 80.00 80.00 10/30/22 10/30/22 10/30/22 10/30/22 07:00 07:17 08:00 08:00 Temp 36.2 Pulse 64 64 64 Resp 20 20 26 B/P (MAP) 140/73 (95) 140/74 (96) Pulse Ox 96 96 97 O2 Delivery NIV Bilevel NIV Bilevel O2 Flow Rate 70.00 70.00 70.00 10/30/22 10/30/22 10/30/22 10/30/22 08:51 09:00 09:00 10:00 Pulse 63 61 64 Resp 24 45 19 B/P (MAP) 145/72 (96) 145/72 (96) 130/65 (86) Pulse Ox 93 95 95 O2 Delivery Vapotherm Vapotherm Vapotherm Vapotherm O2 Flow Rate 35.00 35.00 35.00 35.00 65.00 65.00 65.00 FiO2 65 10/30/22 00:00 Intake Total 355 ml Output Total 750 ml Balance -395 ml Capillary Refill : Less Than 3 Seconds Constitutional: other (Awakens easily, but drifts back to sleep. Morbidly obese) HEENT: hearing is well preserved Neck: No carotid bruit; carotid pulses are 2 + bilaterally Respiratory: No accessory muscle use, No respiratory distress; other (fair air entry) Cardiovascular: regular rate-rhythm; No JVD; S1 and S2 Gastrointestinal: No tender; soft, round; No guarding; audible bowel sounds Extremities: no lower extremity edema bilateral Neurologic/Psychiatric: other (moves extremities) Skin: No rash on exposed areas, No ulcerations on exposed areas Data Review Labs Laboratory Tests 10/29/22 10:25: Potassium Level 4.4, Glucometer 99 10/29/22 16:46: Glucometer 127H 10/29/22 20:53: Glucometer 99 10/30/22 05:12: Potassium Level 5.1H, White Blood Count 6.7, Red Blood Count 3.59L, Hemoglobin 10.5L, Hematocrit 34L, Mean Corpuscular Volume 94, Mean Corpuscular Hemoglobin 29, Mean Corpuscular Hemoglobin Concent 31L, Red Cell Distribution Width 16.0H, Platelet Count 151, Mean Platelet Volume 10.7, Immature Granulocyte % (Auto) 1, Neutrophils (%) (Auto) 76H, Lymphocytes (%) (Auto) 15, Monocytes (%) (Auto) 7, Eosinophils (%) (Auto) 1, Basophils (%) (Auto) 0, Neutrophils # (Auto) 5.0, Lymphocytes # (Auto) 1.0, Monocytes # (Auto) 0.5, Eosinophils # (Auto) 0.1, Basophils # (Auto) 0.0, Immature Granulocyte # (Auto) 0.0, Sodium Level 144, Chloride Level 106, Carbon Dioxide Level 26, Anion Gap 12, Blood Urea Nitrogen 30H, Creatinine 1.18, Estimat Glomerular Filtration Rate 67, BUN/Creatinine Ratio 25, Glucose Level 95, Calcium Level 8.4L, Corrected Calcium 9.1, Phosphorus Level 2.9, Magnesium Level 1.9, Total Bilirubin 0.4, Aspartate Amino Transf (AST/SGOT) 21, Alanine Aminotransferase (ALT/SGPT) 15, Alkaline Phosphatase 54, Total Protein 6.4, Albumin 3.1L 10/30/22 06:46: Blood Gas Puncture Site R RAD, Blood Gas Patient Temperature 36.5, Arterial Blood pH 7.30*L, Arterial Blood Partial Pressure CO2 62H, Arterial Blood Partial Pressure O2 130H, Arterial Blood HCO3 30H, Arterial Blood Total CO2 32.3H, Arterial Blood Oxygen Saturation 99, Arterial Blood Base Excess 4.3H, Maurisio Test YES-POS, Blood Gas Ventilator Setting NO, Blood Gas Inspired Oxygen 80% Microbiology 10/29/22 MRSA Screen - Final, Complete MRSA not isolated 10/28/22 Blood Culture - Preliminary, Resulted No growth Radiology NAME: MARANDA MEEHAN [facility] REC#: [id number] PT STATUS: ADM IN : 1950 PHYSICIAN: CINTIA LONG DO ADMIT DATE: 10/28/22/ICU Draft Date of Exam:10/29/22 CHEST 1 VIEW, AP/PA ONLY INDICATION: Dyspnea. TECHNIQUE/COMPARISON: A frontal chest was obtained at 3:51 AM and compared to 10/28/2022. FINDINGS: There is cardiomegaly with central vascular congestion. There is patchy infiltrate in the right midlung and base. There is no pneumothorax. There is some pleural fluid on the right side which appears similar to the prior study. IMPRESSION: Cardiomegaly and central vascular congestion with unchanged right-sided infiltrate and right pleural effusion. Dictated on workstation # [id number] Dict: 10/29/2206 Trans: 10/29/22 0913 [id number] Interpreted by: EDILSON SOLITARIO MD Electronically signed by: ECG Impression ECG Initial ECG Rhythm: Normal Sinus A/P-Cardiology Assessment/Admission Diagnosis NSTEMI Pneumonia - 2 weeks post COVID per records Acute on chronic respiratory failure requiring Bi-pap tx Acure on chronic exacerbation of COPD SIDNEY H/O seizures Coronary artery disease - history of CABG 6 done in 2012, has been followed by Dr. Adkins. History of multiple catheterizations and recalls having small vessel disease for which conservative management has been advised in the past per previous notes Acute on chronic systolic congestive heart failure - Echo was done May [address] Duke showing left ventricular systolic function mildly reduces, EF 40-45%, grade 1 diastolic dysfunction. Dilated left atrium, pulmonary artery pressure of 25-30 mmHg. Chronic kidney disease stage 3 Hypertension Hyperlipidemia - statin tx COPD Status post lumbar surgery done in May 2019, prolonged and complex recovery Diabetes mellitus Obesity History of tobaccoism Discussion and Recomendations NSTEMI - advise continued conservative management at this time - currently pain free - start ASA and Plavix - start BB as tolerated - request records from Dr. Hernández at [facility] Pneumonia - management per medical services Multi-factorial acute on chronic resp failure d/t pneumonia, acute on chronic exacerbation of COPD, acute on chronic systolic CHF, obesity-hypoventilation syndrome Echocardiogram today CHF - Lasix as indicated/tolerated Hyperkalemia today - repeat lab Continue current medication regimen We would like to thank medical servcies for this consult DEON STANLEY Oct 29, 2022 10:15
[2022-10-29 10:19] VITALS: BP 109/58
[2022-10-29] MEDS ORDERED: ASPIRIN 81 MG CHEW (CHILDREN'S ASA) PO ONE (10:30)
[2022-10-29] MEDS ORDERED: CLOPIDOGREL 75 MG (PLAVIX) TABLET PO NR (10:30)
--- NOTE | 2022-10-29 11:04 | History & Physical ---
EMIR KAM 10/29/22 1103: History of Present Illness History of Present Illness Reason for visit/HPI Florentino Meehan is a 71 yo male who was admitted from [facility] to the ICU for worsening SOB requiring BiPAP. The patient was notably confused at the time of transfer, with limited responsiveness to questioning. Labs on admission were remarkable for elevated troponin of 0.895, BNP 159.5, Procalcitonin 0.18, D-dimer 0.85, multiple UA abnormalities suggestive of UTI; most recent ABG reveals pH 7.28, pCO2 69, pO2 106. CXR revealed cardiomegaly with central pulmonary vascular congestion and pulmonary edema, as well as a stable elevated right hemidiaphragm. BiPAP settings are 18/6. Patient on encounter is alert but gives confused, [id number] responses. Date of Admission Oct 28, 2022 at 19:33 Date Seen by a Provider: Oct 29, 2022 Time Seen by a Provider: 08:50 I consulted on this patient on 10/29/22 10:50 Attending Physician Paris Moreno MD Admitting Physician Admitting Physician: Cintia Long DO Attending Physician: Cintia Long DO Consult Allergies and Home Medications Allergies Coded Allergies: No Known Drug Allergies (Verified , 05/17/19) Patient Home Medication List Albuterol Sulfate (Albuterol Sulfate) 2.5 Mg/0.5 Ml Vial.neb, 2.5 MG INH Q4H PRN for SHORTNESS OF BREATH, (Reported) Entered as Reported by: LIBERTY OLIVEIRA on 05/16/21 1312 Last Action: Reviewed Albuterol Sulfate (Ventolin Hfa) 1 Puff Puff, 2 PUFF IH Q4H PRN for SHORTNESS OF BREATH, (Reported) Entered as Reported by: LIBERTY OLIVEIRA on 05/16/21 1312 Last Action: Reviewed Aspirin (Aspirin EC) 81 Mg Tablet.dr, 81 MG PO DAILY, (Reported) Entered as Reported by: NAUN HUERTA on 06/21/19 1538 Last Action: Reviewed Atorvastatin Calcium (Atorvastatin Calcium) 20 Mg Tablet, 20 MG PO HS, (Reported) Entered as Reported by: LIBERTY OLIVEIRA on 10/29/22 1244 Last Action: Reviewed Budesonide/Formoterol Fumarate (Symbicort 160-4.5 Mcg Inhaler) 160 Mcg-4.5 Mcg/Actuation Hfa.aer.ad, 2 PUFF INH BID, (Reported) Entered as Reported by: LIBERTY OLIVEIRA on 10/29/221243 Last Action: Reviewed Clopidogrel Bisulfate (Clopidogrel) 75 Mg Tablet, 75 MG PO DAILY, (Reported) Entered as Reported by: NAUN HUERTA on 06/21/19 1537 Last Action: Reviewed Famotidine (Famotidine) 20 Mg Tablet, 20 MG PO BID, (Reported) Entered as Reported by: LIBERTY OLIVEIRA on 10/29/221243 Last Action: Reviewed Furosemide (Furosemide) 20 Mg Tablet, 40 MG PO DAILY, (Reported) Entered as Reported by: LIBERTY OLIVEIRA on 10/29/221243 Last Action: Reviewed Gabapentin (Neurontin) 300 Mg Capsule, 600 MG PO BID, (Reported) Entered as Reported by: LIBERTY OLIVEIRA on 10/29/221243 Last Action: Reviewed Glimepiride (Glimepiride) 2 Mg Tablet, 2 MG PO DAILY, (Reported) Entered as Reported by: LIBERTY OLIVEIRA on 05/16/211308 Last Action: Reviewed Guaifenesin (Guaifenesin) 200 Mg Tablet, 200 MG PO BID, (Reported) Entered as Reported by: LIBERTY OLIVEIRA on 10/29/221243 Last Action: Reviewed Hydrocodone/Acetaminophen (Hydrocodone-Acetamin 5-325 mg) 1 Each Tablet, 1 EA PO BID PRN for PAIN-MODERATE (5-7), (Reported) Entered as Reported by: LIBERTY OLIVEIRA on 05/16/21 130 Last Action: Reviewed Levetiracetam (Levetiracetam) 500 Mg Tablet, 1,000 MG PO BID, (Reported) Entered as Reported by: LIBERTY OLIVEIRA on 10/29/221243 Last Action: Reviewed Losartan Potassium (Losartan Potassium) 25 Mg Tablet, 25 MG PO DAILY, (Reported) Entered as Reported by: LIBERTY OLIVEIRA on 10/29/221243 Last Action: Reviewed Mirtazapine (Mirtazapine) 15 Mg Tablet, 15 MG PO HS PRN for SLEEP, (Reported) Entered as Reported by: LIBERTY OLIVEIRA on 05/16/21 130 Last Action: Reviewed Multivitamin with Minerals (Multivitamins with Minerals) 1 Each Tablet, 1 TAB PO DAILY, (Reported) Entered as Reported by: NAUN HUERTA on 06/18/19 110 Last Action: Reviewed Sildenafil Citrate (Sildenafil) 20 Mg Tablet, 20 MG PO TID, (Reported) Entered as Reported by: NAUN HUERTA on 07/30/191627 Last Action: Reviewed Tamsulosin HCl (Flomax) 0.4 Mg Cap, 0.4 MG PO 1800, (Reported) Entered as Reported by: LIBERTY OLIVEIRA on 10/29/22 1244 Last Action: Reviewed Discontinued Medications Bumetanide (Bumetanide) 1 Mg/4 Ml Inj, 1 MG IV DAILY Discontinued Reason: No Longer Taking Prescribed by: CINTIA LONG on 05/18/211108 Last Action: Discontinued Cefepime HCl (Cefepime HCl) 2 Gm Vial, 2 GM IV BID Discontinued Reason: No Longer Taking Prescribed by: CINTIA LONG on 05/18/211108 Last Action: Discontinued Diclofenac Sodium (Voltaren) 100 Gm Gel..gram., 1 APPLIC TP QID, (Reported) Discontinued Reason: No Longer Taking Entered as Reported by: NAUN HUERTA on 07/30/19 164 Last Action: Discontinued Enoxaparin Sodium (Enoxaparin Sodium) 40 Mg/0.4 Ml Syringe, 40 MG SC Q24H Discontinued Reason: No Longer Taking Prescribed by: CINTIA LONG on 05/18/211108 Last Action: Discontinued Fentanyl Citrate-0.9 % NaCl/Pf (Fentanyl 1 mg/100 ml-0.9% NaCl) 10 Mcg/1 Ml Plast..bag, 10 MCG IV UD Discontinued Reason: No Longer Taking Prescribed by: CINTIA LONG on 05/18/211108 Last Action: Discontinued Furosemide (Furosemide) 40 Mg Tablet, 40 MG PO DAILY, (Reported) Discontinued Reason: No Longer Taking Entered as Reported by: NAUN HUERTA on 07/30/191627 Last Action: Discontinued Gabapentin (Neurontin) 300 Mg Capsule, 600 MG PO BID, (Reported) Discontinued Reason: No Longer Taking Entered as Reported by: LIBERTY OLIVEIRA on 05/16/21 1309 Last Action: Discontinued Guaifenesin (Mucinex) 600 Mg Tab.er.12h, 600 MG PO BID PRN for CONGESTION, (Reported) Discontinued Reason: No Longer Taking Entered as Reported by: LIBERTY OLIVEIRA on 05/16/21 1312 Last Action: Discontinued Ipratropium/Albuterol Sulfate (Iprat-Albut 0.5-3(2.5) mg/3 ml) 3 Ml Ampul.neb, 3 ML INH RTQ4HR Discontinued Reason: No Longer Taking Prescribed by: CINTIA LONG on 05/18/211108 Last Action: Discontinued Levetiracetam (Keppra IV) 500 Mg/5 Ml Vial, 1,000 MG IV BID Discontinued Reason: No Longer Taking Prescribed by: CINTIA LONG on 05/18/211108 Last Action: Discontinued Lorazepam (Ativan) 2 Mg/1 Ml Vial, 2 MG IJ iv Discontinued Reason: No Longer Taking Prescribed by: CINTIA LONG on 05/18/211108 Last Action: Discontinued Metformin HCl (Metformin HCl) 500 Mg Tablet, 500 MG PO HS, (Reported) Discontinued Reason: No Longer Taking Entered as Reported by: LIBERTY OLIVEIRA on 05/16/211308 Last Action: Discontinued Metoprolol Tartrate (Metoprolol Tartrate) 25 Mg Tablet, 25 MG PO BID, (Reported) Discontinued Reason: Referral/FU Appt-Addtl Entered as Reported by: NAUN HUERTA on 07/30/191627 Last Action: Discontinued Nicardipine HCl (Cardene I.v.) 25 Mg/10 Ml Ampul, 25 MG IV UD Discontinued Reason: No Longer Taking Prescribed by: CINTIA LONG on 05/18/211108 Last Action: Discontinued Propofol (Propofol) 10 Mg/1 Ml Vial, 10 MG IV UD Discontinued Reason: No Longer Taking Prescribed by: CINTIA LONG on 05/18/211108 Last Action: Discontinued Simvastatin (Simvastatin) 40 Mg Tablet, 40 MG PO HS, (Reported) Discontinued Reason: No Longer Taking Entered as Reported by: LIBERTY OLIVEIRA on 05/16/211308 Last Action: Discontinued Tamsulosin HCl (Flomax) 0.4 Mg Cap, 0.4 MG PO HS, (Reported) Discontinued Reason: No Longer Taking Entered as Reported by: NAUN HUERTA on 07/30/191627 Last Action: Discontinued Vancomycin/0.9 % Sod Chloride (Vanco 2 Gram/500 ml-0.9% NaCl) 2 Gm/500 Ml Plast..bag, 2 GM IV DAILY Discontinued Reason: No Longer Taking Prescribed by: CINTIA LONG on 05/18/21 1109 Last Action: Discontinued Past Danniaa-Ybyuaj-Imsrdf Hx Immunizations Up To Date Tetanus Booster (TDap): Unknown Hepatitis A: No Hepatitis B: No Date of Pneumonia Vaccine: Jul 15, 2018 Seasonal Allergies Seasonal Allergies: No Current Status Communicates: Verbally Primary Language: Ivorian Preferred Spoken Language: Ivorian Is interpretation needed?: No Implanted or Applied Medical D: None Past Medical History Surgeries: CABG, Orthopedic Chronic Bronchitis, Sleep Apnea, COPD Currently Using CPAP: Yes Currently Using BIPAP: No Chronic Edema/Swelling, Coronary Artery Disease, High Cholesterol, Hypertension, Peripheral Vascular Neuropathy Benign Prostatic Hyperpl, Bladder Infection Gastroesophageal Reflux, Chronic Constipation Degenerate Disk Disease, Arthritis, Chronic Back Pain Diabetes, Non-Insulin dep Blood Disorders: No Adverse Reaction/Blood Tranf: No Family Medical History No Pertinent Family Hx Review of Systems ROS-Unable to Obtain: Patient unable to verbalize responses. Physical Exam Vital Signs Vital Signs - First Documented 10/28/22 10/28/22 19:38 19:45 Temp 38.9 Pulse 100 Resp 25 B/P (MAP) 132/51 (78) Pulse Ox 86 O2 Delivery NIV CPAP O2 Flow Rate 10.00 FiO2 80 Capillary Refill : Less Than 3 Seconds Height, Weight, BMI Height: 5'10.00" Weight: 278lbs. 9.6oz. 126.696265mh; 40.64 BMI Method:Stated General Appearance: Severe Distress, Other (on BiPAP) Respiratory: Decreased Breath Sounds (diffuse), Rhonci (right lower lung larios) Neurologic/Psychiatric: No Oriented x3; Disoriented, Other (Rousable but unable to respond to questions.) Assessment/Plan Assessment and Plan 1. Acute respiratory failure: Continue BiPAP. Monitor O2 saturation and respiratory status. 2. UTI: Continue vancomycin, cefepime regimen. 3. Metabolic encephalopathy: Continue gentle hydration and correction of acute respiratory failure. 4. DVT prophylaxis: Continue Lovenox therapy. 5. Elevated troponin: Consult cardiology. Admission Diagnosis Admission Status: Inpatient Order (span 2 midnights) CINTIA LONG DO 10/30/22 0500: History of Present Illness History of Present Illness Reason for visit/HPI CC: Acute respiratory failure HPI: This is a 71 yr old male clinic pt of Dr. Moreno, who I accepted yesterday evening from [place] for higher level of care at ICU. He remains on BiPAP due to hypercapnic respiratory failure and acute kidney injury. He does have an elevated troponin, likely type 2 NSTEMI. So we'll consult Dr. Mcclure. BiPAP settings are 18/8 and 80%. Allergies and Home Medications Allergies Coded Allergies: No Known Drug Allergies (Verified , 05/17/19) Patient Home Medication List Home Medication List Reviewed: Yes Albuterol Sulfate (Albuterol Sulfate) 2.5 Mg/0.5 Ml Vial.neb, 2.5 MG INH Q4H PRN for SHORTNESS OF BREATH, (Reported) Entered as Reported by: LIBERTY OLIVEIRA on 05/16/21 131 Last Action: Reviewed Albuterol Sulfate (Ventolin Hfa) 1 Puff Puff, 2 PUFF IH Q4H PRN for SHORTNESS OF BREATH, (Reported) Entered as Reported by: LIBERTY OLIVEIRA on 05/16/21 131 Last Action: Reviewed Aspirin (Aspirin EC) 81 Mg Tablet.dr, 81 MG PO DAILY, (Reported) Entered as Reported by: NAUN HUERTA on 06/21/19 1538 Last Action: Reviewed Atorvastatin Calcium (Atorvastatin Calcium) 20 Mg Tablet, 20 MG PO HS, (Reported) Entered as Reported by: LIBERTY OLIVEIRA on 10/29/22 124 Last Action: Reviewed Budesonide/Formoterol Fumarate (Symbicort 160-4.5 Mcg Inhaler) 160 Mcg-4.5 Mcg/Actuation Hfa.aer.ad, 2 PUFF INH BID, (Reported) Entered as Reported by: LIBERTY OLIVEIRA on 10/29/22 124 Last Action: Reviewed Clopidogrel Bisulfate (Clopidogrel) 75 Mg Tablet, 75 MG PO DAILY, (Reported) Entered as Reported by: NAUN HUERTA on 06/21/19 1537 Last Action: Reviewed Famotidine (Famotidine) 20 Mg Tablet, 20 MG PO BID, (Reported) Entered as Reported by: LIBERTY OLIVEIRA on 10/29/22 124 Last Action: Reviewed Furosemide (Furosemide) 20 Mg Tablet, 40 MG PO DAILY, (Reported) Entered as Reported by: LIBERTY OLIVEIRA on 10/29/221243 Last Action: Reviewed Gabapentin (Neurontin) 300 Mg Capsule, 600 MG PO BID, (Reported) Entered as Reported by: LIBERTY OLIVEIRA on 10/29/221243 Last Action: Reviewed Glimepiride (Glimepiride) 2 Mg Tablet, 2 MG PO DAILY, (Reported) Entered as Reported by: LIBERTY OLIVEIRA on 05/16/21 130 Last Action: Reviewed Guaifenesin (Guaifenesin) 200 Mg Tablet, 200 MG PO BID, (Reported) Entered as Reported by: LIBERTY OLIVEIRA on 10/29/221243 Last Action: Reviewed Hydrocodone/Acetaminophen (Hydrocodone-Acetamin 5-325 mg) 1 Each Tablet, 1 EA PO BID PRN for PAIN-MODERATE (5-7), (Reported) Entered as Reported by: LIBERTY OLIVEIRA on 05/16/21 130 Last Action: Reviewed Levetiracetam (Levetiracetam) 500 Mg Tablet, 1,000 MG PO BID, (Reported) Entered as Reported by: LIBERTY OLIVEIRA on 10/29/221243 Last Action: Reviewed Losartan Potassium (Losartan Potassium) 25 Mg Tablet, 25 MG PO DAILY, (Reported) Entered as Reported by: LIBERTY OLIVEIRA on 10/29/221243 Last Action: Reviewed Mirtazapine (Mirtazapine) 15 Mg Tablet, 15 MG PO HS PRN for SLEEP, (Reported) Entered as Reported by: LIBERTY OLIVIERA on 05/16/21 130 Last Action: Reviewed Multivitamin with Minerals (Multivitamins with Minerals) 1 Each Tablet, 1 TAB PO DAILY, (Reported) Entered as Reported by: NAUN HUERTA on 06/18/19 1108 Last Action: Reviewed Sildenafil Citrate (Sildenafil) 20 Mg Tablet, 20 MG PO TID, (Reported) Entered as Reported by: NAUN HUERTA on 07/30/19 1628 Last Action: Reviewed Tamsulosin HCl (Flomax) 0.4 Mg Cap, 0.4 MG PO 1800, (Reported) Entered as Reported by: LIBERTY OLIVEIRA on 10/29/221243 Last Action: Reviewed Discontinued Medications Bumetanide (Bumetanide) 1 Mg/4 Ml Inj, 1 MG IV DAILY Discontinued Reason: No Longer Taking Prescribed by: CINTIA LONG on 05/18/211108 Last Action: Discontinued Cefepime HCl (Cefepime HCl) 2 Gm Vial, 2 GM IV BID Discontinued Reason: No Longer Taking Prescribed by: CINTIA LONG on 05/18/211108 Last Action: Discontinued Diclofenac Sodium (Voltaren) 100 Gm Gel..gram., 1 APPLIC TP QID, (Reported) Discontinued Reason: No Longer Taking Entered as Reported by: NAUN HUERTA on 07/30/19 1649 Last Action: Discontinued Enoxaparin Sodium (Enoxaparin Sodium) 40 Mg/0.4 Ml Syringe, 40 MG SC Q24H Discontinued Reason: No Longer Taking Prescribed by: CINTIA LONG on 05/18/211108 Last Action: Discontinued Fentanyl Citrate-0.9 % NaCl/Pf (Fentanyl 1 mg/100 ml-0.9% NaCl) 10 Mcg/1 Ml Plast..bag, 10 MCG IV UD Discontinued Reason: No Longer Taking Prescribed by: CINTIA LONG on 05/18/211108 Last Action: Discontinued Furosemide (Furosemide) 40 Mg Tablet, 40 MG PO DAILY, (Reported) Discontinued Reason: No Longer Taking Entered as Reported by: NAUN HUERTA on 07/30/19 1628 Last Action: Discontinued Gabapentin (Neurontin) 300 Mg Capsule, 600 MG PO BID, (Reported) Discontinued Reason: No Longer Taking Entered as Reported by: LIBERTY OLIVEIRA on 05/16/21 1309 Last Action: Discontinued Guaifenesin (Mucinex) 600 Mg Tab.er.12h, 600 MG PO BID PRN for CONGESTION, (Reported) Discontinued Reason: No Longer Taking Entered as Reported by: LIBERTY OLIVEIRA on 05/16/21 1312 Last Action: Discontinued Ipratropium/Albuterol Sulfate (Iprat-Albut 0.5-3(2.5) mg/3 ml) 3 Ml Ampul.neb, 3 ML INH RTQ4HR Discontinued Reason: No Longer Taking Prescribed by: CINTIA LONG on 05/18/211108 Last Action: Discontinued Levetiracetam (Keppra IV) 500 Mg/5 Ml Vial, 1,000 MG IV BID Discontinued Reason: No Longer Taking Prescribed by: CINTIA LONG on 05/18/211108 Last Action: Discontinued Lorazepam (Ativan) 2 Mg/1 Ml Vial, 2 MG IJ iv Discontinued Reason: No Longer Taking Prescribed by: CINTIA LONG on 05/18/211108 Last Action: Discontinued Metformin HCl (Metformin HCl) 500 Mg Tablet, 500 MG PO HS, (Reported) Discontinued Reason: No Longer Taking Entered as Reported by: LIBERTY OLIVEIRA on 05/16/21 130 Last Action: Discontinued Metoprolol Tartrate (Metoprolol Tartrate) 25 Mg Tablet, 25 MG PO BID, (Reported) Discontinued Reason: Referral/FU Appt-Addtl Entered as Reported by: NAUN HUERTA on 07/30/191627 Last Action: Discontinued Nicardipine HCl (Cardene I.v.) 25 Mg/10 Ml Ampul, 25 MG IV UD Discontinued Reason: No Longer Taking Prescribed by: CINTIA LONG on 05/18/211108 Last Action: Discontinued Propofol (Propofol) 10 Mg/1 Ml Vial, 10 MG IV UD Discontinued Reason: No Longer Taking Prescribed by: CINTIA LONG on 05/18/211108 Last Action: Discontinued Simvastatin (Simvastatin) 40 Mg Tablet, 40 MG PO HS, (Reported) Discontinued Reason: No Longer Taking Entered as Reported by: LIBERTY OLIVEIRA on 05/16/211308 Last Action: Discontinued Tamsulosin HCl (Flomax) 0.4 Mg Cap, 0.4 MG PO HS, (Reported) Discontinued Reason: No Longer Taking Entered as Reported by: NAUN HUERTA on 07/30/191627 Last Action: Discontinued Vancomycin/0.9 % Sod Chloride (Vanco 2 Gram/500 ml-0.9% NaCl) 2 Gm/500 Ml Plast..bag, 2 GM IV DAILY Discontinued Reason: No Longer Taking Prescribed by: CINTIA LONG on 05/18/211108 Last Action: Discontinued Review of Systems Constitutional: see HPI Physical Exam General Appearance: WD/WN, Chronically ill, Moderate Distress, Obese, Other (on BiPAP) Respiratory: No Accessory Muscle Use, No Respiratory Distress, Decreased Breath Sounds (diffuse) Cardiovascular: Regular Rate, Rhythm Neurologic/Psychiatric: Alert, Disoriented Assessment/Plan Assessment and Plan ICU Dr Mcclure consult BiPAP Monitor closely Problems: (1) Respiratory failure, acute and chronic (2) Acute on chronic diastolic heart failure with preserved ejection fraction Status: Acute (3) Noncompliance Status: Chronic (4) Hypertension Status: Chronic (5) PVD (peripheral vascular disease) Status: Chronic Admission Diagnosis Admission Status: Inpatient Order (span 2 midnights) Reason for Inpatient Admission: resp failure Supervisory-Addendum Brief Verification & Attestation Participated in pt care: history, MDM, physical Personally performed: exam, history, MDM, supervision of care Care discussed with: Medical Student Procedures: n/a Results interpretation: Verified all documentation Verification and Attestation of Medical Student E/M Service A medical student performed and documented this service in my presence. I reviewed and verified all information documented by the medical student and made modifications to such information, when appropriate. I personally performed the physical exam and medical decision making. Cintia Long, Oct 30, 2022,05:00 EMIR KAM Oct 29, 2022 11:03 CINTIA LONG DO Oct 30, 2022 05:00
[2022-10-29] MEDS ORDERED: GABA300C PO (12:44)
[2022-10-29] MEDS ORDERED: FURO20TA4 PO (12:44)
[2022-10-29] MEDS ORDERED: ATOR20TA66 PO (12:44)
[2022-10-29] MEDS ORDERED: LOSA25TA41 PO (12:44)
[2022-10-29] MEDS ORDERED: GUAI200T4 PO (12:44)
[2022-10-29] MEDS ORDERED: BUDE10.2 INH (12:44)
[2022-10-29] MEDS ORDERED: FAMO20TA5 PO (12:44)
[2022-10-29] MEDS ORDERED: TMSL.4C PO (12:44)
[2022-10-29] MEDS ORDERED: LEVE500T6 PO (12:44)
[2022-10-29 13:57] VITALS: BP 117/75
[2022-10-29] MEDS: CEFEPIME 1,000 MG/NS 50 ML IVPB IV SCH ×4 (14:59→20:28)
[2022-10-29] MEDS ORDERED: VANCOMYCIN 1500 MG/NS 500 ML IVPB IV SCH ×2 (17:00)
[2022-10-29] MEDS: ENOXAPARIN 40 MG/0.4 ML (LOVENOX) SYR SC SCH (18:22)
--- NOTE | 2022-10-29 18:44 | Consultation-Cardiology ---
HPI-Cardiology Cardiology Consultation: Date of Consultation 10/29/22 Time Seen by a Provider: 18:15 Date of Admission Attending Physician Paris Moreno MD Admitting Physician Admitting Physician: Cintia Law DO Attending Physician: Cintia Law DO Consulting Physician JONATHAN EPPERSON MD, MA, FACP, FACC, [facility], CCDS Physician requesting Card consult: Dr Law HPI: Chief Complaint: Reason for Card consult: Elevated troponin Mr. Meehan is a 71 yr old male admitted to ICU 10 from [facility] [place], [place] d/t increasing SOB an d AMS per report from the nurse. He notes improvement of shortness of breath since being admitted. He denies any c/o CP. He denies any palpitations. 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 He denies any recent coronary intervention. He has gen malaise and weakness. He denies fever or chills. Has chronic, intermittent leg swelling. Review of Systems-Cardiology Review of Systems Constitutional: no symptoms reported Eyes: No vision change Ears/Nose/Throat: No ear discharge, No nasal drainage, No recent hearing loss Respiratory: As described under HPI Cardiovascular: As described under HPI Gastrointestinal: No diarrhea, No nausea, No vomiting Genitourinary: No dysuria, No hematuria, No urine frequency changes Musculoskeletal: back pain (chronic) Skin: No rash, No ulcerations Psychiatric/Neurological: No seizure, No focal weakness, No syncope Hematologic: No bleeding abnormalities VEI-[id number]-Ticreg Hx Patient Social History Have you traveled recently?: No Immunizations Up To Date Tetanus Booster (TDap): More than 5yrs Date of Pneumonia Vaccine: Jul 15, 2018 Past Medical History PMH As described under Assessment. Family Medical History Family Medical History: He does not report fam h/o early CAD Allergies and Home Medications Allergies Coded Allergies: No Known Drug Allergies (Verified , 05/17/19) Patient Home Medication List Home Medication List Reviewed: Yes Albuterol Sulfate (Albuterol Sulfate) 2.5 Mg/0.5 Ml Vial.neb, 2.5 MG INH Q4H PRN for SHORTNESS OF BREATH, (Reported) Entered as Reported by: LIBERTY OLIVEIRA on 05/16/21 1312 Last Action: Reviewed Albuterol Sulfate (Ventolin Hfa) 1 Puff Puff, 2 PUFF IH Q4H PRN for SHORTNESS OF BREATH, (Reported) Entered as Reported by: LIBERTY OLIVEIRA on 05/16/21 1312 Last Action: Reviewed Aspirin (Aspirin EC) 81 Mg Tablet.dr, 81 MG PO DAILY, (Reported) Entered as Reported by: NAUN HUERTA on 06/21/19 1538 Last Action: Reviewed Atorvastatin Calcium (Atorvastatin Calcium) 20 Mg Tablet, 20 MG PO HS, (Reported) Entered as Reported by: LIBERTY OLIVEIRA on 10/29/221243 Last Action: Reviewed Budesonide/Formoterol Fumarate (Symbicort 160-4.5 Mcg Inhaler) 160 Mcg-4.5 Mcg/Actuation Hfa.aer.ad, 2 PUFF INH BID, (Reported) Entered as Reported by: LIBERTY OLIVEIRA on 10/29/221243 Last Action: Reviewed Clopidogrel Bisulfate (Clopidogrel) 75 Mg Tablet, 75 MG PO DAILY, (Reported) Entered as Reported by: NAUN HUERTA on 06/21/19 206 Last Action: Reviewed Famotidine (Famotidine) 20 Mg Tablet, 20 MG PO BID, (Reported) Entered as Reported by: LIBERTY OLIVEIRA on 10/29/221243 Last Action: Reviewed Furosemide (Furosemide) 20 Mg Tablet, 40 MG PO DAILY, (Reported) Entered as Reported by: LIBERTY OLIVEIRA on 10/29/221243 Last Action: Reviewed Gabapentin (Neurontin) 300 Mg Capsule, 600 MG PO BID, (Reported) Entered as Reported by: LIBERTY OLIVEIRA on 10/29/221243 Last Action: Reviewed Glimepiride (Glimepiride) 2 Mg Tablet, 2 MG PO DAILY, (Reported) Entered as Reported by: LIBERTY OLIVEIRA on 05/16/21 130 Last Action: Reviewed Guaifenesin (Guaifenesin) 200 Mg Tablet, 200 MG PO BID, (Reported) Entered as Reported by: LIBERTY OLIVEIRA on 10/29/221243 Last Action: Reviewed Hydrocodone/Acetaminophen (Hydrocodone-Acetamin 5-325 mg) 1 Each Tablet, 1 EA PO BID PRN for PAIN-MODERATE (5-7), (Reported) Entered as Reported by: LIBERTY OLIVEIRA on 05/16/21 130 Last Action: Reviewed Levetiracetam (Levetiracetam) 500 Mg Tablet, 1,000 MG PO BID, (Reported) Entered as Reported by: LIBERTY OLIVEIRA on 10/29/22 124 Last Action: Reviewed Losartan Potassium (Losartan Potassium) 25 Mg Tablet, 25 MG PO DAILY, (Reported) Entered as Reported by: LIBERTY OLIVEIRA on 10/29/22 124 Last Action: Reviewed Mirtazapine (Mirtazapine) 15 Mg Tablet, 15 MG PO HS PRN for SLEEP, (Reported) Entered as Reported by: LIBERTY OLIVEIRA on 05/16/21 1309 Last Action: Reviewed Multivitamin with Minerals (Multivitamins with Minerals) 1 Each Tablet, 1 TAB PO DAILY, (Reported) Entered as Reported by: NAUN HUERTA on 06/18/19 110 Last Action: Reviewed Sildenafil Citrate (Sildenafil) 20 Mg Tablet, 20 MG PO TID, (Reported) Entered as Reported by: NAUN HUERTA on 07/30/19 1628 Last Action: Reviewed Tamsulosin HCl (Flomax) 0.4 Mg Cap, 0.4 MG PO 1800, (Reported) Entered as Reported by: LIBERTY OLIVEIRA on 10/29/22 124 Last Action: Reviewed Discontinued Medications Bumetanide (Bumetanide) 1 Mg/4 Ml Inj, 1 MG IV DAILY Discontinued Reason: No Longer Taking Prescribed by: CINTIA LAW on 05/18/211108 Last Action: Discontinued Cefepime HCl (Cefepime HCl) 2 Gm Vial, 2 GM IV BID Discontinued Reason: No Longer Taking Prescribed by: CINTIA LAW on 05/18/211108 Last Action: Discontinued Diclofenac Sodium (Voltaren) 100 Gm Gel..gram., 1 APPLIC TP QID, (Reported) Discontinued Reason: No Longer Taking Entered as Reported by: NAUN HUERTA on 07/30/19 1649 Last Action: Discontinued Enoxaparin Sodium (Enoxaparin Sodium) 40 Mg/0.4 Ml Syringe, 40 MG SC Q24H Discontinued Reason: No Longer Taking Prescribed by: CINTIA LAW on 05/18/211108 Last Action: Discontinued Fentanyl Citrate-0.9 % NaCl/Pf (Fentanyl 1 mg/100 ml-0.9% NaCl) 10 Mcg/1 Ml Plast..bag, 10 MCG IV UD Discontinued Reason: No Longer Taking Prescribed by: CINTIA LAW on 05/18/211108 Last Action: Discontinued Furosemide (Furosemide) 40 Mg Tablet, 40 MG PO DAILY, (Reported) Discontinued Reason: No Longer Taking Entered as Reported by: NAUN HUERTA on 07/30/191627 Last Action: Discontinued Gabapentin (Neurontin) 300 Mg Capsule, 600 MG PO BID, (Reported) Discontinued Reason: No Longer Taking Entered as Reported by: LIBERTY OLIVEIRA on 05/16/21 1309 Last Action: Discontinued Guaifenesin (Mucinex) 600 Mg Tab.er.12h, 600 MG PO BID PRN for CONGESTION, (Reported) Discontinued Reason: No Longer Taking Entered as Reported by: LIBERTY OLIVEIRA on 05/16/21 1312 Last Action: Discontinued Ipratropium/Albuterol Sulfate (Iprat-Albut 0.5-3(2.5) mg/3 ml) 3 Ml Ampul.neb, 3 ML INH RTQ4HR Discontinued Reason: No Longer Taking Prescribed by: CINTIA LAW on 05/18/211108 Last Action: Discontinued Levetiracetam (Keppra IV) 500 Mg/5 Ml Vial, 1,000 MG IV BID Discontinued Reason: No Longer Taking Prescribed by: CINTIA LAW on 05/18/211108 Last Action: Discontinued Lorazepam (Ativan) 2 Mg/1 Ml Vial, 2 MG IJ iv Discontinued Reason: No Longer Taking Prescribed by: CINTIA LAW on 05/18/211108 Last Action: Discontinued Metformin HCl (Metformin HCl) 500 Mg Tablet, 500 MG PO HS, (Reported) Discontinued Reason: No Longer Taking Entered as Reported by: LIBERTY OLIVEIRA on 05/16/211308 Last Action: Discontinued Metoprolol Tartrate (Metoprolol Tartrate) 25 Mg Tablet, 25 MG PO BID, (Reported) Discontinued Reason: Referral/FU Appt-Addtl Entered as Reported by: NAUN HUERTA on 07/30/191627 Last Action: Discontinued Nicardipine HCl (Cardene I.v.) 25 Mg/10 Ml Ampul, 25 MG IV UD Discontinued Reason: No Longer Taking Prescribed by: CINTIA LAW on 05/18/211108 Last Action: Discontinued Propofol (Propofol) 10 Mg/1 Ml Vial, 10 MG IV UD Discontinued Reason: No Longer Taking Prescribed by: CINTIA LAW on 05/18/21 1109 Last Action: Discontinued Simvastatin (Simvastatin) 40 Mg Tablet, 40 MG PO HS, (Reported) Discontinued Reason: No Longer Taking Entered as Reported by: LIBERTY OLIVEIRA on 05/16/21 1309 Last Action: Discontinued Tamsulosin HCl (Flomax) 0.4 Mg Cap, 0.4 MG PO HS, (Reported) Discontinued Reason: No Longer Taking Entered as Reported by: NAUN HUERTA on 07/30/19 1628 Last Action: Discontinued Vancomycin/0.9 % Sod Chloride (Vanco 2 Gram/500 ml-0.9% NaCl) 2 Gm/[address]bag, 2 GM IV DAILY Discontinued Reason: No Longer Taking Prescribed by: CINTIA LAW on 05/18/21 1109 Last Action: Discontinued Physical Exam-Cardiology Physical Exam Vital Signs/I&O 10/29/22 10/29/22 10/29/22 10/29/22 07:00 07:00 07:37 07:48 Pulse 62 63 62 Resp 19 B/P (MAP) 103/54 (70) Pulse Ox 97 98 96 O2 Delivery NIV Bilevel NIV Bilevel O2 Flow Rate 80.00 80.00 FiO2 80 10/29/22 10/29/22 10/29/22 10/29/22 08:00 08:00 09:00 10:00 Temp 36.3 Pulse 61 62 62 Resp 20 16 27 B/P (MAP) 109/58 (75) 107/59 (75) 109/58 (75) Pulse Ox 97 96 96 O2 Delivery NIV Bilevel NIV Bilevel NIV Bilevel O2 Flow Rate 80.00 80.00 80.00 10/29/22 10/29/22 10/29/22 10/29/22 10:19 11:00 12:00 12:00 Pulse 64 64 67 Resp 24 29 9 B/P (MAP) 111/56 (74) 130/74 (92) Pulse Ox 95 95 93 95 O2 Delivery NIV Bilevel NIV Bilevel NIV Bilevel O2 Flow Rate 80.00 80.00 75.00 FiO2 75 10/29/22 10/29/22 10/29/22 10/29/22 12:00 13:00 13:00 13:57 Temp 36.2 Pulse 65 65 75 Resp 30 26 B/P (MAP) 111/58 (75) Pulse Ox 96 97 O2 Delivery NIV Bilevel O2 Flow Rate 75.00 75.00 10/29/22 10/29/22 10/29/22 10/29/22 14:00 14:37 15:00 16:00 Pulse 74 63 66 Resp 28 14 21 B/P (MAP) 105/60 (75) 120/102 (108) 116/61 (79) Pulse Ox 97 96 95 95 O2 Delivery Vapotherm Vapotherm Vapotherm Vapotherm O2 Flow Rate 30.00 30.00 30.00 30.00 95.00 95.00 95.00 FiO2 95 10/29/22 16:00 Pulse Ox 93 O2 Delivery Vapotherm O2 Flow Rate 35.00 FiO2 85 10/29/22 00:00 Intake Total 0 ml Output Total 350 ml Balance -350 ml Capillary Refill : Less Than 3 Seconds Constitutional: AAO x 3, other (Awakens easily, but drifts back to sleep. Morbidly obese) HEENT: PERRL, hearing is well preserved Neck: No carotid bruit; carotid pulses are 2 + bilaterally Respiratory: No accessory muscle use, No respiratory distress; other (fair air entry) Cardiovascular: regular rate-rhythm; No JVD; S1 and S2 Gastrointestinal: No tender; soft, round; No guarding; audible bowel sounds Extremities: no lower extremity edema bilateral Neurologic/Psychiatric: other (moves extremities) Skin: No rash on exposed areas, No ulcerations on exposed areas Data Review Labs Laboratory Tests 10/28/22 20:16: Blood Gas Puncture Site R RADIAL, Blood Gas Patient Temperature 38.9, Arterial Blood pH 7.33*L, Arterial Blood Partial Pressure CO2 62H, Arterial Blood Partial Pressure O2 134H, Arterial Blood HCO3 31H, Arterial Blood Total CO2 32.5H, Arterial Blood Oxygen Saturation 100, Arterial Blood Base Excess 5.5H, Maurisio Test NEG, Blood Gas Ventilator Setting YES, Blood Gas Inspired Oxygen 10% 10/28/22 21:16: Glucometer 116H 10/28/22 21:50: Blood Gas Puncture Site R RAD, Blood Gas Patient Temperature 37, Arterial Blood pH 7.28*L, Arterial Blood Partial Pressure CO2 75*H, Arterial Blood Partial Pressure O2 31*L, Arterial Blood HCO3 34H, Arterial Blood Total CO2 36.2H, Arterial Blood Oxygen Saturation 50L, Arterial Blood Base Excess 7.4H, Maurisio Test YES-POS, Blood Gas Ventilator Setting NO, Blood Gas Inspired Oxygen 80% 10/28/22 23:15: White Blood Count 6.9, Red Blood Count 3.57L, Hemoglobin 10.4L, Hematocrit 34L, Mean Corpuscular Volume 94, Mean Corpuscular Hemoglobin 29, Mean Corpuscular Hemoglobin Concent 31L, Red Cell Distribution Width 15.6H, Platelet Count 151, Mean Platelet Volume 10.7, Immature Granulocyte % (Auto) 1, Neutrophils (%) (Auto) 71, Lymphocytes (%) (Auto) 18, Monocytes (%) (Auto) 10, Eosinophils (%) (Auto) 1, Basophils (%) (Auto) 0, Neutrophils # (Auto) 5.0, Lymphocytes # (Auto) 1.2, Monocytes # (Auto) 0.7, Eosinophils # (Auto) 0.0, Basophils # (Auto) 0.0, Immature Granulocyte # (Auto) 0.1, Prothrombin Time 13.3, INR Comment 1.0, Activated Partial Thromboplast Time 30, D-Dimer 0.85H, Sodium Level 142, Potassium Level 4.9, Chloride Level 102, Carbon Dioxide Level 28, Anion Gap 12, Blood Urea Nitrogen 40H, Creatinine 1.72H, Estimat Glomerular Filtration Rate 42, BUN/Creatinine Ratio 23, Glucose Level 109H, Lactic Acid Level 0.62, Calcium Level 8.2L, Corrected Calcium 8.8, Total Bilirubin 0.3, Aspartate Amino Transf (AST/SGOT) 25, Alanine Aminotransferase (ALT/SGPT) 17, Alkaline Phosphatase 56, Troponin I 0.895*H, B-Type Natriuretic Peptide 159.5H, Total Protein 6.5, Albumin 3.3, Procalcitonin 0.18H 10/29/22 05:00: White Blood Count 6.7, Red Blood Count 3.52L, Hemoglobin 10.3L, Hematocrit 33L, Mean Corpuscular Volume 94, Mean Corpuscular Hemoglobin 29, Mean Corpuscular Hemoglobin Concent 31L, Red Cell Distribution Width 16.3H, Platelet Count 143, Mean Platelet Volume 11.3, Immature Granulocyte % (Auto) 1, Neutrophils (%) (Auto) 56, Lymphocytes (%) (Auto) 32, Monocytes (%) (Auto) 11, Eosinophils (%) (Auto) 1, Basophils (%) (Auto) 0, Neutrophils # (Auto) 3.7, Lymphocytes # (Auto) 2.1, Monocytes # (Auto) 0.7, Eosinophils # (Auto) 0.0, Basophils # (Auto) 0.0, Immature Granulocyte # (Auto) 0.1, Sodium Level 143, Potassium Level 5.6H, Chloride Level 103, Carbon Dioxide Level 26, Anion Gap 14, Blood Urea Nitrogen 38H, Creatinine 1.65H, Estimat Glomerular Filtration Rate 45, BUN/Creatinine Ratio 23, Glucose Level 93, Calcium Level 7.9L, Corrected Calcium 8.8, Phosphorus Level 3.6, Magnesium Level 1.5L, Total Bilirubin 0.3, Aspartate Amino Transf (AST/SGOT) 36H, Alanine Aminotransferase (ALT/SGPT) 14, Alkaline Phosphatase 50, Troponin I 0.752*H, Total Protein 6.8, Albumin 2.9L, Smear Scan YES 10/29/22 05:25: Glucometer 81 10/29/22 05:30: Blood Gas Puncture Site R RAD, Blood Gas Patient Temperature 37, Arterial Blood pH 7.28*L, Arterial Blood Partial Pressure CO2 69H, Arterial Blood Partial Pressure O2 106H, Arterial Blood HCO3 31H, Arterial Blood Total CO2 33.4H, Arterial Blood Oxygen Saturation 99, Arterial Blood Base Excess 4.9H, Maurisio Test YES-POS, Blood Gas Ventilator Setting NO, Blood Gas Inspired Oxygen 80% 10/29/22 05:40: Urine Color YELLOW, Urine Clarity SL CLOUDY, Urine pH 5.5, Urine Specific [place] 1.025H, Urine Protein 1+H, Urine Glucose (UA) NEGATIVE, Urine Ketones NEGATIVE, Urine Nitrite NEGATIVE, Urine Bilirubin NEGATIVE, Urine Urobilinogen 0.2, Urine Leukocyte Esterase TRACEH, Urine RBC (Auto) TRACE-IH, Urine RBC 2-5H, Urine WBC 5-10H, Urine Squamous Epithelial Cells 0-2, Urine Crystals PRESENTH, Urine Amorphous Sediment LARGE SOLIS URATESH, Urine Bacteria MODERATEH, Urine Casts NONE, Urine Mucus NEGATIVE, Urine Culture Indicated CULTURE PENDING 10/29/22 10:25: Potassium Level 4.4, Glucometer 99 10/29/22 16:46: Glucometer 127H Microbiology 10/28/22 Blood Culture - Preliminary, Resulted No growth Laboratory Tests 10/28/22 23:15 11/29/22 05:00 10/29/22 10:25 A/P-Cardiology Assessment/Admission Diagnosis Acute on chronic respiratory failure (multifactorial, see below) requiring Bi- pap tx Obesity with hypoventilation syndrome and SIDNEY Acute on chronic exacerbation of COPD - due to pneumonia - 2 weeks post COVID Mild troponin elevation - probably type 2 NH due to transient hypoxia H/O seizures Coronary artery disease - history of CABG 6 done in 2012, has been followed by Dr. Adkins. History of multiple catheterizations and recalls having small vessel disease for which conservative management has been advised in the past per previous notes Acute on chronic systolic congestive heart failure - Echo May [address] Duke showing left ventricular systolic function mildly reduces, EF 40-45%, grade 1 diastolic dysfunction. Dilated left atrium, pulmonary artery pressure of 25-30 mmHg. - Echo 10/29/22: LVEF 50-55%, grade 2 diastolic dysfunction, mild LAE Chronic kidney disease stage 3 Hypertension Hyperlipidemia - statin tx COPD Status post lumbar surgery done in May 2019, prolonged and complex recovery Diabetes mellitus Obesity History of tobaccoism Discussion and Recomendations * DAPT due to h/o CAD * DVT prophylaxis due to considerable risk of DVT * BB, if tolerated, due to h/o CAD * Diuretics as needed and tolerate * Management of pneumonia / ac exac of COPD is with the Med svce * Monitor labs closely JONATHAN EPPERSON MD [facility] Oct 29, 2022 18:44
[2022-10-29] MEDS: meTOprolol TARTRATE 25 MG (LOPRESSOR) TABLET PO SCH (20:37)
[2022-10-29] MEDS: ALPRAZolam 1 MG (XANAX) TAB PO PRN (20:42)
[2022-10-30 02:26] VITALS: BP 99/63
[2022-10-30] MEDS: RT-ALBUTEROL/IPRATROPIUM 3 ML (DUONEB) VIAL INH SCH ×6 (02:26→22:33)
[2022-10-30] MEDS: CEFEPIME 1,000 MG/NS 50 ML IVPB IV SCH ×8 (04:00→21:10)
[2022-10-30] MEDS: ALPRAZolam 1 MG (XANAX) TAB PO PRN (04:58)
[2022-10-30 05:33] LABS: BASOPHILS % (AUTO) 0 % (0-10); EOSINOPHILS # (AUTO) 0.1 10^3/uL (0.0-0.3); EOSINOPHILS % (AUTO) 1 % (0-10); HEMATOCRIT 34 % (40-54); HEMOGLOBIN 10.5 g/dL (13.3-17.7); LYMPHOCYTES % (AUTO) 15 % (12-44); MEAN CORPUSCULAR HEMOGLOBIN 29 pg (25-34); MEAN CORPUSCULAR HGB CONC 31 g/dL (32-36); MEAN CORPUSCULAR VOLUME 94 fL (80-99); MEAN PLATELET VOLUME 10.7 fL (9.0-12.2); MONOCYTES # (AUTO) 0.5 10^3/uL (0.0-1.0); MONOCYTES % (AUTO) 7 % (0-12); NEUTROPHILS % (AUTO) 76 % (42-75); PLATELET COUNT 151 10^3/uL (130-400); WHITE BLOOD COUNT 6.7 10^3/uL (4.3-11.0)
[2022-10-30] MEDS: DexMEDEtomidine 250 ML DRIP 250 ML IV SCH (05:57)
[2022-10-30 05:59] LABS: ALBUMIN 3.1 GM/DL (3.2-4.5); BILIRUBIN,TOTAL 0.4 MG/DL (0.1-1.0); CALCIUM 8.4 MG/DL (8.5-10.1); CREATININE SERUM 1.18 MG/DL (0.60-1.30); MAGNESIUM 1.9 MG/DL (1.6-2.4); PHOSPHORUS 2.9 MG/DL (2.3-4.7); POTASSIUM 5.1 MMOL/L (3.6-5.0); TOTAL PROTEIN 6.4 GM/DL (6.4-8.2)
[2022-10-30] MEDS: inSUlin ASPART (NovoLOG) 1 UNIT/0.01 ML (CHARGE PER UNIT) SC SCH ×4 (06:30→21:11)
[2022-10-30] MEDS: MAGNESIUM 1 GM/100 ML IVPB 100 ML IV SCH (06:30)
[2022-10-30] MEDS ORDERED: MAGNESIUM 1 GM/100 ML IVPB 100 ML IV ONE ×2 (06:30)
[2022-10-30] MEDS: POTASSIUM CL 10MEQ/50ML IVPB 50 ML IV SCH (06:30)
[2022-10-30] MEDS: KCL 20 MEQ TAB (K-DUR) PO SCH (06:30)
[2022-10-30 06:54] LABS: ABG BASE EXCESS 4.3 MMOL/L (-2.5-2.5); ABG OXYGEN SATURATION 99 % (94-100); ABG PCO2 62 MMHG (35-45); ABG PO2 130 MMHG (79-93); ABG TCO2 32.3 MMOL/L (21.0-31.0)
[2022-10-30 06:55] LABS: ALLENS TEST YES-POS; INSPIRED O2 80%; PATIENT TEMP 36.5; VENTILATOR NO
[2022-10-30 07:17] VITALS: BP 137/72
--- NOTE | 2022-10-30 07:58 | Diagnostic Imaging Report ---
INDICATION: Respiratory distress. Comparison with 3:51 a.m. on 10/29/22. FINDINGS: Cardiomegaly with pulmonary venous congestion as well as a bilateral diffuse pulmonary infiltrates. Elevation right hemidiaphragm with considerable right basilar atelectasis. Probable right pleural effusion. Median sternotomy changes. IMPRESSION: Findings are consistent with congestive failure with considerable bilateral infiltrates. Right pleural effusion. Overall appearance appears slightly worse than previous exam. Dictated by: Dictated on workstation # [id number]
--- NOTE | 2022-10-30 08:58 | Tele-ICU Progress Note ---
Subjective Date Seen by a Provider: Oct 30, 2022 Subjective/Events-last exam This virtual visit was conducted using real time audio/video. Thank you for asking us to see this patient for respiratory insufficiency due to AECOPD, SIDNEY, probable OHS. Probable pna/bronchitis. Elev. Troponins. PMH: COPD, CAD/CABG/CHF/PAD. Covid recently. DM2, HL, HTN PE: Appears comfortable on BiPAP. VSS. O2 sat 97% on Bip 18/6, 70%. HEENT: No obvious masses, adenopathy or JVD. Chest: Diminished on auscultation. No wheeze. CV: RRR S1 S2 No murmur or added sounds. Abd: Non-tender. Bowel sounds Y. : Unremarkable. Alves Y. CATEGORY ANALYST/psychiatric: Grossly intact. No obvious focal findings. Extremities: Trace edema. Capillary refill < 3 seconds. Skin: unremarkable. Results: Elevated BUN 38, Creat 1.65, Trop 0.752, decreased. Decreased Hb 10.5. B.31/62/130 on 80%. CXR: Cardiomeg., post CABG changes, congested: no change. Available chart/ vitals / labs / images reviewed. Video assessment done using teleICU camera, rest of exam as per RN. A/P: Respiratory insufficiency: Continue present management with BiPAP 16/8, 80%, weaning as chasity. Cont Duonebs, PRN Prec. OK to attempt Vapotherm. Monitor for increasing oxygenation needs and/or need for intubation. Critical Care: critically ill patient. Cont. IVF, abx, SSI. Marilou, ASA, metop., Plavix. Discussed with JACY Nelson. Asked RN to reach out to eICU if any questions or conc erns later. Time spent with patient/coordination of care with other health professionals (mins): 22 Sepsis Event Evaluation Height, Weight, BMI Height: 5'10.00" Weight: 278lbs. 9.6oz. 126.165314gu; 40.64 BMI Method:Stated Focused Exam Lactate Level 10/28/22 23:15: Lactic Acid Level 0.62 Exam Exam Patient acknowledged, consented, and participated in this virtual visit which was conducted using real time audio/video Vital Signs Date Time Temp Pulse Resp B/P (MAP) Pulse Ox O2 Delivery O2 Flow Rate FiO2 10/30/22 08:00 36.2 10/30/22 07:17 64 20 96 70.00 10/30/22 07:00 63 10/30/22 06:00 73 21 128/68 (88) 96 Vapotherm 40.00 80.00 10/30/22 05:00 70 27 121/71 (88) 89 Vapotherm 40.00 80.00 10/30/22 04:00 68 20 134/63 (86) 96 Vapotherm 40.00 80.00 10/30/22 04:00 Vapotherm 30.00 95 10/30/22 04:00 36.5 10/30/22 03:09 Vapotherm 40.00 80.00 10/30/22 03:00 75 24 152/74 (100) 88 NIV Bilevel 70.00 10/30/22 02:26 67 23 96 70.00 10/30/22 02:00 67 28 106/80 (89) 95 NIV Bilevel 70.00 10/30/22 01:00 64 10/30/22 01:00 64 18 108/80 (89) 96 NIV Bilevel 70.00 10/30/22 00:00 66 22 131/59 (83) 96 NIV Bilevel 70.00 10/29/22 23:59 Vapotherm 30.00 95 10/29/22 23:51 36.2 10/29/22 23:00 71 28 99/47 (64) 88 NIV Bilevel 70.00 10/29/22 22:15 Vapotherm 30.00 60.00 10/29/22 22:07 97 Vapotherm 35.00 70 10/29/22 22:00 68 29 106/46 (66) 94 Vapotherm 30.00 95.00 10/29/22 21:00 64 19 142/103 (116) 96 Vapotherm 30.00 95.00 10/29/22 20:05 Vapotherm 30.00 95 10/29/22 20:00 64 21 86/56 (66) 96 Vapotherm 30.00 95.00 10/29/22 19:46 37.0 10/29/22 19:00 62 10/29/22 19:00 64 16 122/55 (77) 93 Vapotherm 30.00 95.00 10/29/22 18:52 95 Vapotherm 35.00 70 10/29/22 18:00 65 35 131/59 (83) 95 Vapotherm 30.00 95.00 10/29/22 17:56 Vapotherm 30.00 95 10/29/22 17:00 66 24 134/68 (90) 96 Vapotherm 30.00 95.00 10/29/22 16:00 93 Vapotherm 35.00 85 10/29/22 16:00 66 21 116/61 (79) 95 Vapotherm 30.00 95.00 10/29/22 15:00 63 14 120/102 (108) 95 Vapotherm 30.00 95.00 10/29/22 14:37 96 Vapotherm 30.00 95 10/29/22 14:00 74 28 105/60 (75) 97 Vapotherm 30.00 95.00 10/29/22 13:57 75 26 97 75.00 10/29/22 13:00 65 10/29/22 13:00 65 30 111/58 (75) 96 NIV Bilevel 75.00 10/29/22 12:00 36.2 10/29/22 12:00 67 9 130/74 (92) 95 NIV Bilevel 75.00 10/29/22 12:00 93 NIV Bilevel 75 10/29/22 11:00 64 29 111/56 (74) 95 NIV Bilevel 80.00 10/29/22 10:19 64 24 95 80.00 10/29/22 10:00 62 27 109/58 (75) 96 NIV Bilevel 80.00 10/29/22 09:00 62 16 107/59 (75) 96 NIV Bilevel 80.00 I & O 10/30/22 07:00 Intake Total 605 ml Output Total 1525 ml Balance -920 ml Height & Weight Height: 5'10.00" Weight: 278lbs. 9.6oz. 126.801857so; 40.64 BMI Method:Stated General Appearance: WD/WN, Chronically ill, Moderate Distress, Obese, Other (on BiPAP) Respiratory: No Accessory Muscle Use, No Respiratory Distress, Decreased Breath Sounds (diffuse) Cardiovascular: Regular Rate, Rhythm Capillary Refill: Less Than 3 Seconds Gastrointestinal: normal bowel sounds Extremity: Pedal Edema Neurologic/Psychiatric: Alert, Disoriented Results Lab Laboratory Tests 10/28/22 23:15 10/29/22 05:00 10/29/22 10:25 10/30/22 05:12 Assessment/Plan Assessment/Plan See free text. Critical Care: Critically Ill Patient JAMES RODRIGUEZ MD Oct 30, 2022 08:58
[2022-10-30] MEDS: DOCUSATE SODIUM 100 MG (COLACE) CAP PO SCH ×3 (09:03→21:10)
[2022-10-30] MEDS: meTOprolol TARTRATE 25 MG (LOPRESSOR) TABLET PO SCH ×4 (09:03→23:48)
[2022-10-30] MEDS: ASPIRIN 81 MG CHEW (CHILDREN'S ASA) PO SCH (09:03)
[2022-10-30] MEDS: SENNOSIDES 8.6 MG (SENOKOT) TAB PO SCH ×3 (09:03→21:10)
[2022-10-30] MEDS: CLOPIDOGREL 75 MG (PLAVIX) TABLET PO SCH (09:03)
[2022-10-30] MEDS: NOREPINEPHRINE 8 MG/250 ML 250 ML IV SCH ×2 (09:04→16:02)
--- NOTE | 2022-10-30 10:23 | Progress Note - Cardiology ---
Cardiology SOAP Progress Note Subjective: Sitting up in bed, on Vapo-therm Feels breathing is better C/O fatigue No c/o CP Objective: I&O/Vital Signs 10/30/22 10/30/22 10/30/22 10/30/22 20:00 20:00 21:00 21:21 Pulse 74 66 Resp 24 27 B/P (MAP) 157/68 (97) 164/82 (109) Pulse Ox 94 94 O2 Delivery NIV Bilevel Vapotherm NIV Bilevel NIV Bilevel O2 Flow Rate 30.00 35.00 30.00 35.00 FiO2 45 10/30/22 10/30/22 10/30/22 10/30/22 22:00 22:33 23:00 23:59 Pulse 64 63 64 Resp 23 20 25 B/P (MAP) 171/84 (113) 188/99 (128) Pulse Ox 94 94 94 O2 Delivery NIV Bilevel NIV Bilevel Vapotherm O2 Flow Rate 35.00 35.00 35.00 35.00 FiO2 45 10/31/22 10/31/22 10/31/22 10/31/22 00:00 01:00 01:00 01:10 Temp 36.4 Pulse 64 70 61 Resp 25 25 B/P (MAP) 184/80 (114) 186/95 (125) Pulse Ox 92 92 O2 Delivery NIV Bilevel NIV Bilevel O2 Flow Rate 35.00 35.00 10/31/22 10/31/22 10/31/22 10/31/22 02:00 02:22 03:00 03:36 Temp 36.4 Pulse 62 63 74 Resp 29 32 35 B/P (MAP) 190/96 (127) 166/78 (107) Pulse Ox 94 93 91 O2 Delivery NIV Bilevel NIV Bilevel O2 Flow Rate 35.00 35.00 35.00 10/31/22 10/31/22 10/31/22 10/31/22 04:00 04:00 05:00 06:00 Pulse 66 66 65 Resp 34 34 B/P (MAP) 178/86 (116) 186/92 (123) 187/98 (127) Pulse Ox 90 93 92 O2 Delivery Vapotherm NIV Bilevel NIV Bilevel NIV Bilevel O2 Flow Rate 35.00 35.00 35.00 35.00 FiO2 45 10/31/22 06:30 Pulse 64 Resp 33 Pulse Ox 92 O2 Flow Rate 35.00 10/31/22 00:00 Intake Total 1375 ml Output Total 850 ml Balance 525 ml Weight (Pounds): 278 Weight (Ounces): 9.6 Weight (Calculated Kilograms): 126.501698 Constitutional: AAO x 3, other (morbid obesity) Respiratory: No accessory muscle use, No respiratory distress; other (fair air entry) Cardiovascular: regular rate-rhythm; No JVD; S1 and S2 Gastrointestional: No tender; soft, round; No guarding; audible bowel sounds Extremities: no lower extremity edema bilateral Neurologic/Psychiatric: other (moves extremities) Skin: No rash on exposed areas, No ulcerations on exposed areas; other (dressing to LLE which is D&I) Results/Procedures: Labs Laboratory Tests 10/30/22 10:31: Glucometer 98 10/30/22 16:00: Glucometer 107 10/30/22 21:07: Glucometer 148H 10/31/22 03:46: White Blood Count 7.8, Red Blood Count 3.82L, Hemoglobin 11.1L, Hematocrit 35L, Mean Corpuscular Volume 93, Mean Corpuscular Hemoglobin 29, Mean Corpuscular Hemoglobin Concent 31L, Red Cell Distribution Width 15.6H, Platelet Count 167, Mean Platelet Volume 10.4, Immature Granulocyte % (Auto) 1, Neutrophils (%) (Auto) 74, Lymphocytes (%) (Auto) 16, Monocytes (%) (Auto) 7, Eosinophils (%) (Auto) 2, Basophils (%) (Auto) 0, Neutrophils # (Auto) 5.8, Lymphocytes # (Auto) 1.3, Monocytes # (Auto) 0.6, Eosinophils # (Auto) 0.2, Basophils # (Auto) 0.0, Immature Granulocyte # (Auto) 0.1, Sodium Level 141, Potassium Level 5.1H, Chloride Level 106, Carbon Dioxide Level 22, Anion Gap 13, Blood Urea Nitrogen 23H, Creatinine 1.08, Estimat Glomerular Filtration Rate 74, BUN/Creatinine Ratio 21, Glucose Level 187H, Calcium Level 8.8, Corrected Calcium 9.4, Ph osphorus Level 2.5, Magnesium Level 2.1, Total Bilirubin 0.4, Aspartate Amino Transf (AST/SGOT) 18, Alanine Aminotransferase (ALT/SGPT) 11, Alkaline Phosphatase 60, Total Protein 6.9, Albumin 3.3 10/31/22 03:47: Blood Gas Puncture Site LRAD, Blood Gas Patient Temperature 37.1, Arterial Blood pH 7.31*L, Arterial Blood Partial Pressure CO2 59H, Arterial Blood Partial Pressure O2 55L, Arterial Blood HCO3 29H, Arterial Blood Total CO2 30.8, Arterial Blood Oxygen Saturation 89L, Arterial Blood Base Excess 3.3H, Maurisio Test YES-POS, Blood Gas Ventilator Setting NO, Blood Gas Inspired Oxygen 35% 10/31/22 06:14: Glucometer 175H Microbiology 10/29/22 Urine Culture - Preliminary, Resulted NO GROWTH 10/29/22 MRSA Screen - Final, Complete MRSA not isolated 10/28/22 Blood Culture - Preliminary, Resulted No growth A/P: Assessment: Acute on chronic respiratory failure (multifactorial, see below) requiring Bi- pap tx Obesity with hypoventilation syndrome and SIDNEY Acute on chronic exacerbation of COPD - due to pneumonia - 2 weeks post COVID Mild troponin elevation - probably type 2 [place] due to transient hypoxia H/O seizures Coronary artery disease - history of CABG 6 done in 2012, has been followed by Dr. Adkins. History of multiple catheterizations and recalls having small vessel disease for which conservative management has been advised in the past per previous notes Acute on chronic systolic congestive heart failure - Echo May [address] Duke showing left ventricular systolic function mildly reduces, EF 40-45%, grade 1 diastolic dysfunction. Dilated left atrium, pulmonary artery pressure of 25-30 mmHg. - Echo 10/29/22: LVEF 50-55%, grade 2 diastolic dysfunction, mild LAE Chronic kidney disease stage 3 Hypertension Hyperlipidemia - statin tx COPD Status post lumbar surgery done in May 2019, prolonged and complex recovery Diabetes mellitus Obesity History of tobaccoism Plan: * Continue DAPT due to h/o CAD * Continue DVT prophylaxis due to considerable risk of DVT * Tolerating low dose BB * Diuretics as needed and tolerate * Management of pneumonia / ac exac of COPD is with the Med svce * Monitor labs closely DEON STANLEY Oct 30, 2022 10:23
--- NOTE | 2022-10-30 10:40 | Progress Note ---
EMIR KAM 10/30/22 1040: Subjective Date Seen by a Provider: Oct 30, 2022 Time Seen by a Provider: 09:20 Subjective/Events-last exam Florentino Meehan is a 71 yo male who was transferred to the ICU from [facility] for respiratory failure requiring BiPAP. The patient's labwork is remark able for only HGB 10.5, K+ 5.1, BUN 30; ABG reveals pH 7.30, pCO2 62, pO2 130. CXR from 10/29 showed cardiomegaly, central vascular congestion, and unchanged right-sided infiltrate with right pleural effusion. Patient's BiPAP settings are 18/6. Patient is alert but somnolent on evaluation. He is unable to provide further history. Review of Systems Unable to obtain due to patient's condition. Focused Exam Lactate Level 10/28/22 23:15: Lactic Acid Level 0.62 Objective Exam Last Set of Vital Signs Vital Signs Date Time Temp Pulse Resp B/P (MAP) Pulse Ox O2 Delivery O2 Flow Rate FiO2 10/30/22 10:00 64 19 130/65 (86) 95 Vapotherm 35.00 65.00 10/30/22 08:51 65 10/30/22 08:00 36.2 Capillary Refill : Less Than 3 Seconds I&O Intake and Output 10/29/22 23:59 Intake Total 605 ml Output Total 1450 ml Balance -845 ml Intake Oral 355 ml IV Total 250 ml Output Urine Total 1450 ml General: Moderate Distress, Other (Alert but confused, not oriented to place, time, or purpose. Oriented to self.) Lungs: Other (Right lung with rhonchi in all larios. Decreased breath sounds throughout.) Heart: Regular Rate, Normal S1, Normal S2, No Murmurs Extremities: No Edema, Normal Pulses Results Lab Laboratory Tests 10/29/22 16:46: Glucometer 127H 10/29/22 20:53: Glucometer 99 10/30/22 05:12: White Blood Count 6.7, Red Blood Count 3.59L, Hemoglobin 10.5L, Hematocrit 34L, Mean Corpuscular Volume 94, Mean Corpuscular Hemoglobin 29, Mean Corpuscular Hemoglobin Concent 31L, Red Cell Distribution Width 16.0H, Platelet Count 151, Mean Platelet Volume 10.7, Immature Granulocyte % (Auto) 1, Neutrophils (%) (Auto) 76H, Lymphocytes (%) (Auto) 15, Monocytes (%) (Auto) 7, Eosinophils (%) (Auto) 1, Basophils (%) (Auto) 0, Neutrophils # (Auto) 5.0, Lymphocytes # (Auto) 1.0, Monocytes # (Auto) 0.5, Eosinophils # (Auto) 0.1, Basophils # (Auto) 0.0, Immature Granulocyte # (Auto) 0.0, Sodium Level 144, Potassium Level 5.1H, Chloride Level 106, Carbon Dioxide Level 26, Anion Gap 12, Blood Urea Nitrogen 30H, Creatinine 1.18, Estimat Glomerular Filtration Rate 67, BUN/Creatinine Ratio 25, Glucose Level 95, Calcium Level 8.4L, Corrected Calcium 9.1, Phosphorus Level 2.9, Magnesium Level 1.9, Total Bilirubin 0.4, Aspartate Amino Transf (AST/SGOT) 21, Alanine Aminotransferase (ALT/SGPT) 15, Alkaline Phosphatase 54, Total Protein 6.4, Albumin 3.1L 10/30/22 06:46: Blood Gas Puncture Site R RAD, Blood Gas Patient Temperature 36.5, Arterial Blood pH 7.30*L, Arterial Blood Partial Pressure CO2 62H, Arterial Blood Partial Pressure O2 130H, Arterial Blood HCO3 30H, Arterial Blood Total CO2 32.3H, Arterial Blood Oxygen Saturation 99, Arterial Blood Base Excess 4.3H, Maurisio Test YES-POS, Blood Gas Ventilator Setting NO, Blood Gas Inspired Oxygen 80% 10/30/22 10:31: Glucometer 98 Microbiology 10/29/22 MRSA Screen - Final, Complete MRSA not isolated 10/28/22 Blood Culture - Preliminary, Resulted No growth Radiology Date of Exam:10/29/22 CHEST 1 VIEW, AP/PA ONLY IMPRESSION: Cardiomegaly and central vascular congestion with unchanged right-sided infiltrate and right pleural effusion. Date of Exam:10/30/22 CHEST 1 VIEW, AP/PA ONLY IMPRESSION: Findings are consistent with congestive failure with considerable bilateral infiltrates. Right pleural effusion. Overall appearance appears slightly worse than previous exam. Assessment/Plan Assessment/Plan Assess & Plan/Chief Complaint 1. Acute respiratory failure: Continue BiPAP as needed; test patient's tolerance off of BiPAP. Monitor O2 saturation and respiratory status. 2. UTI: Continue vancomycin, cefepime regimen. 3. Metabolic encephalopathy: Continue gentle hydration and correction of acute respiratory failure. 4. DVT prophylaxis: Continue Lovenox therapy. 5. Elevated troponin: Consult cardiology. Clinical Quality Measures Admission Status Admission Dx 1. Acute respiratory failure: Continue BiPAP. Monitor O2 saturation and respiratory status. 2. UTI: Continue vancomycin, cefepime regimen. 3. Metabolic encephalopathy: Continue gentle hydration and correction of acute respiratory failure. 4. DVT prophylaxis: Continue Lovenox therapy. 5. Elevated troponin: Consult cardiology. CINTIA LONG DO 10/31/22 0458: Subjective Subjective/Events-last exam Pt remains on BiPAP 18/05 ABG is 7.3/62/130 Chest x-ray confirms right infiltrate Vancomycin and Cefepime maintained but MRSA of the nares is negative, so we'll discontinue the Vanc Objective Exam General: Alert, Oriented X3, Cooperative Lungs: Clear to Auscultation Heart: Regular Rate Psych/Mental Status: Mental Status NL Supervisory-Addendum Brief Verification & Attestation Participated in pt care: history, MDM, physical Personally performed: exam, history, MDM, supervision of care Care discussed with: Medical Student Procedures: n/a Results interpretation: Verified all documentation Verification and Attestation of Medical Student E/M Service A medical student performed and documented this service in my presence. I reviewed and verified all information documented by the medical student and made modifications to such information, when appropriate. I personally performed the physical exam and medical decision making. Cintia Long, Oct 31, 2022,04:58 EMIR KAM Oct 30, 2022 10:40 CINTIA LONG DO Oct 31, 2022 04:58
[2022-10-30] MEDS: ENOXAPARIN 40 MG/0.4 ML (LOVENOX) SYR SC SCH ×2 (11:13→23:40)
[2022-10-30] MEDS: NS IV 1000 ML 1,000 ML IV SCH (13:30)
[2022-10-30] MEDS ORDERED: TROUGH ORDER-PHARMACY XX ONE (16:00)
[2022-10-30] MEDS ORDERED: guaiFENesin/DM (ROBITUSSIN DM) 10 ML UDC PO PRN (16:30)
--- NOTE | 2022-10-30 17:32 | Progress Note - Cardiology ---
Cardiology SOAP Progress Note Subjective: Feels less short of breath No cp Gen weakness and malaise No n/v/d His RN reported agitation and anxiety this am Objective: I&O/Vital Signs 10/30/22 10/30/22 10/30/22 10/30/22 06:00 07:00 07:00 07:17 Pulse 73 63 64 64 Resp 21 20 20 B/P (MAP) 128/68 (88) 140/73 (95) Pulse Ox 96 96 96 O2 Delivery Vapotherm NIV Bilevel O2 Flow Rate 40.00 70.00 70.00 80.00 10/30/22 10/30/22 10/30/22 10/30/22 08:00 08:00 08:51 09:00 Temp 36.2 Pulse 64 63 Resp 26 24 B/P (MAP) 140/74 (96) 145/72 (96) Pulse Ox 97 93 O2 Delivery NIV Bilevel Vapotherm Vapotherm O2 Flow Rate 70.00 35.00 35.00 65.00 FiO2 65 10/30/22 10/30/22 10/30/22 10/30/22 09:00 10:00 10:00 10:45 Pulse 61 64 64 Resp 45 19 B/P (MAP) 145/72 (96) 130/65 130/65 (86) Pulse Ox 95 95 93 O2 Delivery Vapotherm Vapotherm Vapotherm O2 Flow Rate 35.00 35.00 35.00 65.00 65.00 55.00 10/30/22 10/30/22 10/30/22 10/30/22 10:51 11:00 11:17 11:49 Temp 36.2 Pulse 60 Resp 36 B/P (MAP) 129/77 (94) Pulse Ox 92 94 94 O2 Delivery Vapotherm Vapotherm O2 Flow Rate 35.00 35.00 35.00 55.00 FiO2 55 55 10/30/22 10/30/22 10/30/22 10/30/22 12:00 13:00 13:00 13:31 Pulse 66 75 65 Resp 8 33 B/P (MAP) 128/57 (80) 125/87 (100) Pulse Ox 92 95 92 O2 Delivery Vapotherm Vapotherm Vapotherm O2 Flow Rate 35.00 35.00 35.00 55.00 45.00 45.00 11/10/30/22 10/30/22 10/30/22 14:00 14:56 15:00 15:26 Pulse 65 66 Resp 13 B/P (MAP) 119/59 (79) 103/70 (81) Pulse Ox 92 93 93 96 O2 Delivery Vapotherm Vapotherm Vapotherm Vapotherm O2 Flow Rate 35.00 35.00 35.00 30.00 45.00 35.00 35.00 FiO2 55 10/30/22 10/30/22 10/30/22 10/30/22 15:31 16:00 16:04 16:10 Pulse 67 B/P (MAP) 113/70 (84) Pulse Ox 94 94 93 O2 Delivery Vapotherm Vapotherm Vapotherm Vapotherm O2 Flow Rate 30.00 30.00 30.00 35.00 55.00 55.00 40.00 FiO2 45 10/30/22 00:00 Intake Total 355 ml Output Total 750 ml Balance -395 ml Weight (Pounds): 278 Weight (Ounces): 9.6 Weight (Calculated Kilograms): 126.860191 Constitutional: AAO x 3, other (morbid obesity) Respiratory: No accessory muscle use, No respiratory distress; other (fair air entry) Cardiovascular: regular rate-rhythm; No JVD; S1 and S2 Gastrointestional: No tender; soft, round; No guarding; audible bowel sounds Extremities: no lower extremity edema bilateral Neurologic/Psychiatric: other (moves extremities) Skin: No rash on exposed areas, No ulcerations on exposed areas; other (dressing to LLE which is D&I) Results/Procedures: Labs Laboratory Tests 10/29/22 20:53: Glucometer 99 10/30/22 05:12: White Blood Count 6.7, Red Blood Count 3.59L, Hemoglobin 10.5L, Hematocrit 34L, Mean Corpuscular Volume 94, Mean Corpuscular Hemoglobin 29, Mean Corpuscular Hemoglobin Concent 31L, Red Cell Distribution Width 16.0H, Platelet Count 151, Mean Platelet Volume 10.7, Immature Granulocyte % (Auto) 1, Neutrophils (%) (Auto) 76H, Lymphocytes (%) (Auto) 15, Monocytes (%) (Auto) 7, Eosinophils (%) (Auto) 1, Basophils (%) (Auto) 0, Neutrophils # (Auto) 5.0, Lymphocytes # (Auto) 1.0, Monocytes # (Auto) 0.5, Eosinophils # (Auto) 0.1, Basophils # (Auto) 0.0, Immature Granulocyte # (Auto) 0.0, Sodium Level 144, Potassium Level 5.1H, Chloride Level 106, Carbon Dioxide Level 26, Anion Gap 12, Blood Urea Nitrogen 30H, Creatinine 1.18, Estimat Glomerular Filtration Rate 67, BUN/Creatinine Ratio 25, Glucose Level 95, Calcium Level 8.4L, Corrected Calcium 9.1, Phosphorus Level 2.9, Magnesium Level 1.9, Total Bilirubin 0.4, Aspartate Amino Transf (AST/SGOT) 21, Alanine Aminotransferase (ALT/SGPT) 15, Alkaline Phosphatase 54, Total Protein 6.4, Albumin 3.1L 10/30/22 06:46: Blood Gas Puncture Site R RAD, Blood Gas Patient Temperature 36.5, Arterial Blood pH 7.30*L, Arterial Blood Partial Pressure CO2 62H, Arterial Blood Partial Pressure O2 130H, Arterial Blood HCO3 30H, Arterial Blood Total CO2 32.3H, Arterial Blood Oxygen Saturation 99, Arterial Blood Base Excess 4.3H, Maurisio Test YES-POS, Blood Gas Ventilator Setting NO, Blood Gas Inspired Oxygen 80% 10/30/22 10:31: Glucometer 98 10/30/22 16:00: Glucometer 107 Microbiology 10/29/22 Urine Culture - Preliminary, Resulted NO GROWTH 10/29/22 MRSA Screen - Final, Complete MRSA not isolated 10/28/22 Blood Culture - Preliminary, Resulted No growth A/P: Assessment: Acute on chronic respiratory failure (multifactorial, see below) requiring Bi- pap tx Obesity with hypoventilation syndrome and SIDNEY Acute on chronic exacerbation of COPD - due to pneumonia - 2 weeks post COVID Mild troponin elevation - probably type 2 [place] due to transient hypoxia H/O seizures Coronary artery disease - history of CABG 6 done in 2012, has been followed by Dr. Adkins. History of multiple catheterizations and recalls having small vessel disease for which conservative management has been advised in the past per previous notes Acute on chronic systolic congestive heart failure - Echo May [address] Duke showing left ventricular systolic function mildly reduces, EF 40-45%, grade 1 diastolic dysfunction. Dilated left atrium, pulmonary artery pressure of 25-30 mmHg. - Echo 10/29/22: LVEF 50-55%, grade 2 diastolic dysfunction, mild LAE Chronic kidney disease stage 3 Hypertension Hyperlipidemia - statin tx COPD Status post lumbar surgery done in May 2019, prolonged and complex recovery Diabetes mellitus Obesity History of tobaccoism Plan: * Continue DAPT due to h/o CAD * Continue DVT prophylaxis due to considerable risk of DVT * Tolerating low dose BB * Diuretics as needed and tolerate * Management of pneumonia / ac exac of COPD is with the Med svce * Monitor labs closely * His RN was reporting A Flutter / Torsade this am. This was during his episodes of anxiety and agitation. I have reviewed the strips. Only artifact is seen and a regular, narrow-complex rhythm (probably sinus) can be seen marching through JONATHAN EPPERSON MD FACP FAC CCDS Oct 30, 2022 17:32
[2022-10-30 19:09] VITALS: BP 165/70
[2022-10-30 22:33] VITALS: BP 179/85
--- NOTE | 2022-10-31 02:14 | Tele-ICU Progress Note ---
Subjective Date Seen by a Provider: Oct 31, 2022 Time Seen by a Provider: 02:12 Subjective/Events-last exam called for BP 190/101, metoprolol was held due to HR will give 10 mg IV hydralazine Sepsis Event Evaluation Height, Weight, BMI Height: 5'10.00" Weight: 278lbs. 9.6oz. 126.386887ec; 40.64 BMI Method:Stated Focused Exam Lactate Level 10/28/22 23:15: Lactic Acid Level 0.62 Exam Exam Patient acknowledged, consented, and participated in this virtual visit which was conducted using real time audio/video Vital Signs Date Time Temp Pulse Resp B/P (MAP) Pulse Ox O2 Delivery O2 Flow Rate FiO2 10/31/22 00:00 64 25 184/80 (114) 92 NIV Bilevel 35.00 10/30/22 23:59 Vapotherm 35.00 45 10/30/22 23:00 64 25 188/99 (128) 94 NIV Bilevel 35.00 10/30/22 22:33 63 20 94 35.00 10/30/22 22:00 64 23 171/84 (113) 94 NIV Bilevel 35.00 10/30/22 21:21 NIV Bilevel 35.00 10/30/22 21:00 66 27 164/82 (109) 94 NIV Bilevel 30.00 10/30/22 20:00 Vapotherm 35.00 45 10/30/22 20:00 74 24 157/68 (97) 94 NIV Bilevel 30.00 10/30/22 19:09 74 20 91 35.00 10/30/22 19:00 80 10/30/22 19:00 75 15 165/70 (101) 92 NIV Bilevel 30.00 10/30/22 18:57 94 NIV Bilevel 30.00 10/30/22 18:00 69 127/88 (101) 94 Vapotherm 30.00 40.00 10/30/22 17:00 70 166/81 (109) 93 Vapotherm 30.00 40.00 10/30/22 16:10 Vapotherm 35.00 45 10/30/22 16:04 93 Vapotherm 30.00 40.00 10/30/22 16:00 67 113/70 (84) 94 Vapotherm 30.00 55.00 10/30/22 15:31 94 Vapotherm 30.00 55.00 10/30/22 15:26 96 Vapotherm 30.00 55 10/30/22 15:00 66 103/70 (81) 93 Vapotherm 35.00 35.00 10/30/22 14:56 93 Vapotherm 35.00 35.00 10/30/22 14:00 65 13 119/59 (79) 92 Vapotherm 35.00 45.00 10/30/22 13:31 92 Vapotherm 35.00 45.00 10/30/22 13:00 65 10/30/22 13:00 75 33 125/87 (100) 95 Vapotherm 35.00 45.00 10/30/22 12:00 66 8 128/57 (80) 92 Vapotherm 35.00 55.00 10/30/22 11:49 36.2 10/30/22 11:17 94 Vapotherm 35.00 55 10/30/22 11:00 60 36 129/77 (94) 94 Vapotherm 35.00 55.00 10/30/22 10:51 92 35.00 55 10/30/22 10:45 93 Vapotherm 35.00 55.00 10/30/22 10:00 64 19 130/65 (86) 95 Vapotherm 35.00 65.00 10/30/22 10:00 64 130/65 10/30/22 09:00 61 45 145/72 (96) 95 Vapotherm 35.00 65.00 10/30/22 09:00 63 24 145/72 (96) Vapotherm 35.00 65.00 10/30/22 08:51 93 Vapotherm 35.00 65 10/30/22 08:00 36.2 10/30/22 08:00 64 26 140/74 (96) 97 NIV Bilevel 70.00 10/30/22 07:17 64 20 96 70.00 10/30/22 07:00 64 20 140/73 (95) 96 NIV Bilevel 70.00 10/30/22 07:00 63 10/30/22 06:00 73 21 128/68 (88) 96 Vapotherm 40.00 80.00 10/30/22 05:00 70 27 121/71 (88) 89 Vapotherm 40.00 80.00 10/30/22 04:00 68 20 134/63 (86) 96 Vapotherm 40.00 80.00 10/30/22 04:00 Vapotherm 30.00 95 10/30/22 04:00 36.5 10/30/22 03:09 Vapotherm 40.00 80.00 10/30/22 03:00 75 24 152/74 (100) 88 NIV Bilevel 70.00 10/30/22 02:26 67 23 96 70.00 I & O 10/31/22 07:00 Intake Total 1500 ml Output Total 1175 ml Balance 325 ml Height & Weight Height: 5'10.00" Weight: 278lbs. 9.6oz. 126.581444rt; 40.64 BMI Method:Stated General Appearance: WD/WN, Chronically ill, Moderate Distress, Obese, Other (on BiPAP) Respiratory: No Accessory Muscle Use, No Respiratory Distress, Decreased Breath Sounds (diffuse) Cardiovascular: Regular Rate, Rhythm Capillary Refill: Less Than 3 Seconds Gastrointestinal: normal bowel sounds Extremity: Pedal Edema Neurologic/Psychiatric: Alert, Disoriented Results Lab Laboratory Tests 10/29/22 05:00 10/29/22 10:25 10/30/22 05:12 Assessment/Plan Assessment/Plan HTN, will give IV hydralazine 10 mg Critical Care: Critically Ill Patient Time spent with patient (mins): 10 SHANNAN PARIKH MD Oct 31, 2022 02:14
[2022-10-31] MEDS ORDERED: hydrALAZINE (APESOLINE) 20 MG/ML VIAL IV ONE (02:15)
[2022-10-31] MEDS: RT-ALBUTEROL/IPRATROPIUM 3 ML (DUONEB) VIAL INH SCH ×6 (02:22→21:58)
[2022-10-31] MEDS: CEFEPIME 1,000 MG/NS 50 ML IVPB IV SCH ×8 (02:39→20:01)
[2022-10-31 03:54] LABS: ABG BASE EXCESS 3.3 MMOL/L (-2.5-2.5); ABG OXYGEN SATURATION 89 % (94-100); ABG PCO2 59 MMHG (35-45); ABG PO2 55 MMHG (79-93); ABG TCO2 30.8 MMOL/L (21.0-31.0)
[2022-10-31 03:56] LABS: BASOPHILS % (AUTO) 0 % (0-10); EOSINOPHILS # (AUTO) 0.2 10^3/uL (0.0-0.3); EOSINOPHILS % (AUTO) 2 % (0-10); HEMATOCRIT 35 % (40-54); HEMOGLOBIN 11.1 g/dL (13.3-17.7); LYMPHOCYTES # (AUTO) 1.3 10^3/uL (1.0-4.0); LYMPHOCYTES % (AUTO) 16 % (12-44); MEAN CORPUSCULAR HEMOGLOBIN 29 pg (25-34); MEAN CORPUSCULAR HGB CONC 31 g/dL (32-36); MEAN CORPUSCULAR VOLUME 93 fL (80-99); MEAN PLATELET VOLUME 10.4 fL (9.0-12.2); MONOCYTES # (AUTO) 0.6 10^3/uL (0.0-1.0); MONOCYTES % (AUTO) 7 % (0-12); NEUTROPHILS # (AUTO) 5.8 10^3/uL (1.8-7.8); NEUTROPHILS % (AUTO) 74 % (42-75); PLATELET COUNT 167 10^3/uL (130-400); WHITE BLOOD COUNT 7.8 10^3/uL (4.3-11.0)
[2022-10-31 03:56] LABS: ALLENS TEST YES-POS
[2022-10-31 03:57] LABS: INSPIRED O2 35%; PATIENT TEMP 37.1; VENTILATOR NO
[2022-10-31 03:58] LABS: ABG PH 7.31 (7.37-7.43)
[2022-10-31 04:08] LABS: ALBUMIN 3.3 GM/DL (3.2-4.5); POTASSIUM 5.1 MMOL/L (3.6-5.0)
[2022-10-31 04:09] LABS: CALCIUM 8.8 MG/DL (8.5-10.1)
[2022-10-31 04:11] LABS: TOTAL PROTEIN 6.9 GM/DL (6.4-8.2)
[2022-10-31 04:12] LABS: BILIRUBIN,TOTAL 0.4 MG/DL (0.1-1.0)
[2022-10-31 04:14] LABS: CREATININE SERUM 1.08 MG/DL (0.60-1.30); PHOSPHORUS 2.5 MG/DL (2.3-4.7)
[2022-10-31 04:17] LABS: MAGNESIUM 2.1 MG/DL (1.6-2.4)
[2022-10-31] MEDS: MAGNESIUM 1 GM/100 ML IVPB 100 ML IV SCH (04:28)
[2022-10-31] MEDS: POTASSIUM CL 10MEQ/50ML IVPB 50 ML IV SCH (04:28)
[2022-10-31] MEDS: NOREPINEPHRINE 8 MG/250 ML 250 ML IV SCH ×3 (04:28→23:16)
[2022-10-31] MEDS: KCL 20 MEQ TAB (K-DUR) PO SCH (04:28)
[2022-10-31] MEDS: DexMEDEtomidine 250 ML DRIP 250 ML IV SCH ×2 (05:07→22:24)
[2022-10-31] MEDS: inSUlin ASPART (NovoLOG) 1 UNIT/0.01 ML (CHARGE PER UNIT) SC SCH ×4 (06:14→20:24)
[2022-10-31] MEDS: NS IV 1000 ML 1,000 ML IV SCH ×2 (06:14→22:24)
[2022-10-31 06:30] VITALS: BP 192/97
--- NOTE | 2022-10-31 08:05 | Progress Note ---
Subjective Date Seen by a Provider: Oct 31, 2022 Time Seen by a Provider: 10:30 Subjective/Events-last exam No major changes BiPAP dependent Patient has expressed desire to go to comfort care Checked meds and labs Review of Systems General: Fatigue, Malaise Pulmonary: Dyspnea Neurological: Confusion Focused Exam Lactate Level 10/28/22 23:15: Lactic Acid Level 0.62 Objective Exam Last Set of Vital Signs Vital Signs Date Time Temp Pulse Resp B/P (MAP) Pulse Ox O2 Delivery O2 Flow Rate FiO2 10/31/22 06:30 64 33 92 35.00 10/31/22 06:00 187/98 (127) NIV Bilevel 10/31/22 04:00 45 10/31/22 03:36 36.4 Capillary Refill : Less Than 3 Seconds I&O Intake and Output 10/30/22 23:59 Intake Total 1500 ml Output Total 1750 ml Balance -250 ml Intake Oral 300 ml IV Total 1200 ml Output Urine Total 1750 ml General: Alert, Other (Decreased level of consciousness) Lungs: Clear to Auscultation Heart: Regular Rate Results Lab Laboratory Tests 10/30/22 10:31: Glucometer 98 10/30/22 16:00: Glucometer 107 10/30/22 21:07: Glucometer 148H 10/31/22 03:46: White Blood Count 7.8, Red Blood Count 3.82L, Hemoglobin 11.1L, Hematocrit 35L, Mean Corpuscular Volume 93, Mean Corpuscular Hemoglobin 29, Mean Corpuscular Hemoglobin Concent 31L, Red Cell Distribution Width 15.6H, Platelet Count 167, Mean Platelet Volume 10.4, Immature Granulocyte % (Auto) 1, Neutrophils (%) (Auto) 74, Lymphocytes (%) (Auto) 16, Monocytes (%) (Auto) 7, Eosinophils (%) (Auto) 2, Basophils (%) (Auto) 0, Neutrophils # (Auto) 5.8, Lymphocytes # (Auto) 1.3, Monocytes # (Auto) 0.6, Eosinophils # (Auto) 0.2, Basophils # (Auto) 0.0, Immature Granulocyte # (Auto) 0.1, Sodium Level 141, Potassium Level 5.1H, Chloride Level 106, Carbon Dioxide Level 22, Anion Gap 13, Blood Urea Nitrogen 23H, Creatinine 1.08, Estimat Glomerular Filtration Rate 74, BUN/Creatinine Ratio 21, Glucose Level 187H, Calcium Level 8.8, Corrected Calcium 9.4, Phosp horus Level 2.5, Magnesium Level 2.1, Total Bilirubin 0.4, Aspartate Amino Transf (AST/SGOT) 18, Alanine Aminotransferase (ALT/SGPT) 11, Alkaline Phosphatase 60, Total Protein 6.9, Albumin 3.3 10/31/22 03:47: Blood Gas Puncture Site LRAD, Blood Gas Patient Temperature 37.1, Arterial Blood pH 7.31*L, Arterial Blood Partial Pressure CO2 59H, Arterial Blood Partial Pressure O2 55L, Arterial Blood HCO3 29H, Arterial Blood Total CO2 30.8, Arterial Blood Oxygen Saturation 89L, Arterial Blood Base Excess 3.3H, Maurisio Test YES-POS, Blood Gas Ventilator Setting NO, Blood Gas Inspired Oxygen 35% 10/31/22 06:14: Glucometer 175H Microbiology 10/29/22 Urine Culture - Preliminary, Resulted NO GROWTH 10/29/22 MRSA Screen - Final, Complete MRSA not isolated 10/28/22 Blood Culture - Preliminary, Resulted No growth Assessment/Plan Assessment/Plan Assess & Plan/Chief Complaint 1. Acute respiratory failure: Continue BiPAP. Monitor O2 saturation and respiratory status. 2. UTI: Continue vancomycin, cefepime regimen. 3. Metabolic encephalopathy: Continue gentle hydration and correction of acute respiratory failure. 4. DVT prophylaxis: Continue Lovenox therapy. 5. Elevated troponin: Consult cardiology. Plan: Supportive care BiPAP dependent Diagnosis/Problems Diagnosis/Problems (1) Respiratory failure, acute and chronic (2) Acute on chronic diastolic heart failure with preserved ejection fraction Status: Acute (3) Noncompliance Status: Chronic (4) Hypertension Status: Chronic (5) PVD (peripheral vascular disease) Status: Chronic Clinical Quality Measures Admission Status Admission Dx ICU Dr Mcclure consult BiPAP Monitor closely JASPER LONG DO Oct 31, 2022 08:05
--- NOTE | 2022-10-31 08:22 | Diagnostic Imaging Report ---
INDICATION: Dyspnea Frontal chest obtained at 0553 a.m. compared to 10/30/2022. There is cardiomegaly and poststernotomy change. There is central vascular congestion. There is increasing right pleural effusion and right basilar infiltrate. There is no pneumothorax. IMPRESSION: Cardiomegaly. Increasing central vascular congestion with edema, increasing right pleural effusion and right basilar infiltrate versus atelectasis. Dictated by: Dictated on workstation # [id number]
[2022-10-31] MEDS: meTOprolol TARTRATE 25 MG (LOPRESSOR) TABLET PO SCH ×2 (09:03→20:01)
[2022-10-31] MEDS: ASPIRIN 81 MG CHEW (CHILDREN'S ASA) PO SCH (09:04)
[2022-10-31] MEDS: CLOPIDOGREL 75 MG (PLAVIX) TABLET PO SCH (09:04)
[2022-10-31] MEDS: SENNOSIDES 8.6 MG (SENOKOT) TAB PO SCH ×2 (09:06→20:01)
[2022-10-31] MEDS: DOCUSATE SODIUM 100 MG (COLACE) CAP PO SCH ×2 (09:06→20:01)
[2022-10-31 10:30] VITALS: BP 168/79
--- NOTE | 2022-10-31 10:31 | Progress Note - Cardiology ---
Cardiology SOAP Progress Note Subjective: In bed Remains on Bi-pap C/O BURNHAM Objective: I&O/Vital Signs 11/03/22 11/03/22 11/03/22 11/03/22 21:55 22:00 22:44 23:00 Pulse 58 56 56 57 Resp 16 16 16 B/P (MAP) 168/70 158/67 (97) 160/69 (99) Pulse Ox 92 92 92 O2 Delivery Mechanical Ventilator Mechanical Ventilator O2 Flow Rate 75.00 75.00 FiO2 75 11/03/22 11/03/22 11/03/22 11/03/22 23:10 23:11 23:56 23:59 Pulse 56 56 56 B/P (MAP) 162/69 162/69 162/69 Pulse Ox 91 O2 Delivery Mechanical Ventilator FiO2 75 11/04/22 11/04/22 11/04/22 11/04/22 00:00 00:19 01:00 01:55 Temp 36.0 Pulse 64 56 63 59 Resp 16 16 B/P (MAP) 153/59 (90) 153/59 (90) 165/69 Pulse Ox 92 92 O2 Delivery Mechanical Ventilator Mechanical Ventilator O2 Flow Rate 75.00 75.00 11/04/22 11/04/22 11/04/22 11/04/22 02:00 02:08 02:27 03:00 Pulse 62 59 59 63 Resp 16 16 16 B/P (MAP) 155/65 (95) 165/69 155/64 (94) Pulse Ox 91 91 91 O2 Delivery Mechanical Ventilator Mechanical Ventilator O2 Flow Rate 75.00 75.00 FiO2 75 11/04/22 11/04/22 11/04/22 11/04/22 03:10 03:56 04:00 04:00 Pulse 59 59 61 Resp 16 B/P (MAP) 165/69 165/69 155/65 (95) Pulse Ox 91 92 O2 Delivery Mechanical Ventilator Mechanical Ventilator O2 Flow Rate 75.00 FiO2 75 11/04/22 11/04/22 11/04/22 11/04/22 05:00 05:00 06:00 06:27 Pulse 75 60 77 77 Resp 16 16 22 B/P (MAP) 145/65 (91) 127/75 (92) 127/75 Pulse Ox 91 91 92 O2 Delivery Mechanical Ventilator Mechanical Ventilator O2 Flow Rate 75.00 75.00 12/5/22 11/04/22 11/04/22 11/04/22 06:35 06:59 07:00 07:38 Pulse 77 67 68 69 Resp 16 16 B/P (MAP) 127/75 124/61 (82) Pulse Ox 91 92 O2 Delivery Mechanical Ventilator O2 Flow Rate 75.00 FiO2 85 11/04/22 11/04/22 11/04/22 11/04/22 07:48 08:00 08:00 09:00 Temp 37.2 Pulse 68 66 Resp 18 16 B/P (MAP) 122/55 (77) 125/56 (79) Pulse Ox 92 93 95 O2 Delivery Mechanical Ventilator Mechanical Ventilator Mechanical Ventilator O2 Flow Rate 75.00 75.00 FiO2 85 11/04/22 09:03 Pulse 69 B/P (MAP) 125/56 11/04/22 00:00 Intake Total 2610 ml Output Total 2475 ml Balance 135 ml Weight (Pounds): 278 Weight (Ounces): 9.6 Weight (Calculated Kilograms): 126.375159 Constitutional: AAO x 3, other (morbid obesity) Respiratory: No accessory muscle use, No respiratory distress; other (fair air entry) Cardiovascular: regular rate-rhythm; No JVD; S1 and S2 Gastrointestional: No tender; soft, round; No guarding; audible bowel sounds Extremities: no lower extremity edema bilateral Neurologic/Psychiatric: other (moves extremities) Skin: No rash on exposed areas, No ulcerations on exposed areas; other (dressing to LLE which is D&I) Results/Procedures: Labs Laboratory Tests 11/03/22 11:52: Glucometer 152H 11/03/22 18:42: Glucometer 157H 11/03/22 23:55: Glucometer 142H 11/04/22 03:29: White Blood Count 7.3, Red Blood Count 3.54L, Hemoglobin 10.6L, Hematocrit 32L, Mean Corpuscular Volume 90, Mean Corpuscular Hemoglobin 30, Mean Corpuscular Hemoglobin Concent 33, Red Cell Distribution Width 15.1H, Platelet Count 245, Mean Platelet Volume 10.3, Immature Granulocyte % (Auto) 1, Neutrophils (%) (Auto) 74, Lymphocytes (%) (Auto) 12, Monocytes (%) (Auto) 7, Eosinophils (%) (Auto) 6, Basophils (%) (Auto) 0, Neutrophils # (Auto) 5.4, Lymphocytes # (Auto) 0.9L, Monocytes # (Auto) 0.5, Eosinophils # (Auto) 0.4H, Basophils # (Auto) 0.0, Immature Granulocyte # (Auto) 0.1, Sodium Level 137, Potassium Level 3.5L, Chloride Level 98, Carbon Dioxide Level 23, Anion Gap 16H, Blood Urea Nitrogen 23H, Creatinine 1.14, Estimat Glomerular Filtration Rate 70, BUN/Creatinine Ratio 20, Glucose Level 164H, Calcium Level 8.7, Corrected Calcium 9.7, Phosphorus Level 3.8, Magnesium Level 1.8, Total Bilirubin 0.9, Aspartate Amino Transf (AST/SGOT) 14, Alanine Aminotransferase (ALT/SGPT) 10, Alkaline Phos phatase 54, Total Protein 6.9, Albumin 2.7L 11/04/22 03:32: Blood Gas Puncture Site RIGHT RADIAL, Blood Gas Patient Temperature 36.2, Arterial Blood pH 7.44H, Arterial Blood Partial Pressure CO2 46H, Arterial Blood Partial Pressure O2 58L, Arterial Blood HCO3 31H, Arterial Blood Total CO2 32.6H , Arterial Blood Oxygen Saturation 90L, Arterial Blood Base Excess 6.8H, Maurisio Test YES-POS, Blood Gas Ventilator Setting YES, Blood Gas Inspired Oxygen 75% Microbiology 10/29/22 Urine Culture - Final, Complete NO GROWTH 10/29/22 MRSA Screen - Final, Complete MRSA not isolated 10/28/22 Blood Culture - Final, Complete No growth Procedures NAME: MARANDA BURNS [facility] REC#: [id number] PT STATUS: ADM IN : 1950 PHYSICIAN: JASPER LONG DO ADMIT DATE: 10/28/22/ICU Draft Date of Exam:11/01/22 CHEST 1 VIEW, AP/PA ONLY Indication: Dyspnea, wound management, respiratory failure. Study compared 10/31/2022. Findings: Sternal wires intact. Cardiomegaly unchanged. There is a presumed subpulmonic effusion at the right base not clearly changed. There is vascular congestion and likely perihilar edema unchanged. Impression: No significant change in right greater than left pleural-parenchymal opacities, vascular congestion and cardiomegaly. Dictated on workstation # [id number] Dict: 11/01/22801 Trans: 11/01/22 08 CV [id number] Interpreted by: DAVID ONEILL Electronically signed by: A/P: Assessment: Acute on chronic respiratory failure (multifactorial, see below) requiring Bi- pap tx Obesity with hypoventilation syndrome and SIDNEY Acute on chronic exacerbation of COPD - due to pneumonia - 2 weeks post COVID Mild troponin elevation - probably type 2 AR due to transient hypoxia H/O seizures Coronary artery disease - history of CABG 6 done in 2012, has been followed by Dr. Adkins. History of multiple catheterizations and recalls having small vessel disease for which conservative management has been advised in the past per previous notes Acute on chronic systolic congestive heart failure - Echo May [address] Duke showing left ventricular systolic function mildly reduces, EF 40-45%, grade 1 diastolic dysfunction. Dilated left atrium, pulmonary artery pressure of 25-30 mmHg. - Echo 10/29/22: LVEF 50-55%, grade 2 diastolic dysfunction, mild LAE Chronic kidney disease stage 3 Hypertension Hyperlipidemia - statin tx COPD Status post lumbar surgery done in May 2019, prolonged and complex recovery Diabetes mellitus Obesity History of tobaccoism Plan: * Continue DAPT due to h/o CAD * Continue DVT prophylaxis due to considerable risk of DVT * BP not well controlled * Add Norvasc; unable to increase BB d/t somewhat low HR * Diuretics as needed and tolerate * Give lasix today * Management of pneumonia / ac exac of COPD is with the Med svce * Monitor labs closely DEON STANLEY Oct 31, 2022 10:31
[2022-10-31] MEDS: ENOXAPARIN 40 MG/0.4 ML (LOVENOX) SYR SC SCH ×2 (12:16→23:16)
--- NOTE | 2022-10-31 17:15 | Progress Note - Cardiology ---
Cardiology SOAP Progress Note Subjective: Gen weakness and malaise No cp or palp or syncope No n/v/d Intermittent anxiety No focal weakness Objective: I&O/Vital Signs 10/31/22 10/31/22 10/31/22 10/31/22 06:00 06:30 07:00 07:00 Pulse 65 64 66 64 Resp 34 33 34 B/P (MAP) 187/98 (127) 188/96 (126) Pulse Ox 92 92 92 O2 Delivery NIV Bilevel NIV Bilevel O2 Flow Rate 35.00 35.00 35.00 10/31/22 10/31/22 10/31/22 10/31/22 08:00 08:46 08:58 09:00 Pulse 67 68 70 Resp 34 36 B/P (MAP) 179/78 (111) 174/79 176/78 (110) Pulse Ox 92 96 O2 Delivery NIV Bilevel NIV Bilevel NIV Bilevel O2 Flow Rate 35.00 35.00 FiO2 35 10/31/22 10/31/22 10/31/22 10/31/22 10:00 10:30 10:42 11:00 Pulse 65 65 69 Resp 31 30 29 B/P (MAP) 168/79 (108) 166/77 (106) Pulse Ox 93 92 93 O2 Delivery NIV Bilevel NIV Bilevel NIV Bilevel O2 Flow Rate 35.00 40.00 40.00 40.00 10/31/22 10/31/22 10/31/22 10/31/22 12:00 12:00 12:18 12:50 Temp 37.1 Pulse 66 Resp 28 B/P (MAP) 161/76 (104) Pulse Ox 95 93 O2 Delivery NIV Bilevel NIV Bilevel NIV Bilevel O2 Flow Rate 40.00 35.00 FiO2 35 10/31/22 10/31/22 10/31/22 10/31/22 13:00 13:00 14:00 14:30 Pulse 66 71 70 Resp 25 B/P (MAP) 146/64 (91) 148/59 (88) Pulse Ox 93 96 95 O2 Delivery NIV Bilevel NIV Bilevel Vapotherm O2 Flow Rate 35.00 35.00 30.00 FiO2 50 10/31/22 10/31/22 10/31/22 10/31/22 15:00 15:06 15:26 16:00 Pulse 70 74 B/P (MAP) 146/95 (112) 153/73 (99) Pulse Ox 94 95 O2 Delivery NIV Bilevel Vapotherm Vapotherm Vapotherm O2 Flow Rate 35.00 35.00 30.00 30.00 60.00 60.00 60.00 10/31/22 10/31/22 16:15 17:00 Pulse 98 B/P (MAP) 133/59 (83) Pulse Ox 95 O2 Delivery NIV Bilevel NIV Bilevel O2 Flow Rate 40.00 50.00 10/31/22 00:00 Intake Total 1375 ml Output Total 850 ml Balance 525 ml Weight (Pounds): 278 Weight (Ounces): 9.6 Weight (Calculated Kilograms): 126.244740 Constitutional: AAO x 3, other (morbid obesity) Respiratory: No accessory muscle use, No respiratory distress; other (fair air entry) Cardiovascular: regular rate-rhythm; No JVD; S1 and S2 Gastrointestional: No tender; soft, round; No guarding; audible bowel sounds Extremities: no lower extremity edema bilateral Neurologic/Psychiatric: other (moves extremities) Skin: No rash on exposed areas, No ulcerations on exposed areas; other (lionel ssing to LLE which is D&I) Results/Procedures: Labs Laboratory Tests 10/30/22 21:07: Glucometer 148H 10/31/22 03:46: White Blood Count 7.8, Red Blood Count 3.82L, Hemoglobin 11.1L, Hematocrit 35L, Mean Corpuscular Volume 93, Mean Corpuscular Hemoglobin 29, Mean Corpuscular Hemoglobin Concent 31L, Red Cell Distribution Width 15.6H, Platelet Count 167, Mean Platelet Volume 10.4, Immature Granulocyte % (Auto) 1, Neutrophils (%) (Auto) 74, Lymphocytes (%) (Auto) 16, Monocytes (%) (Auto) 7, Eosinophils (%) (Auto) 2, Basophils (%) (Auto) 0, Neutrophils # (Auto) 5.8, Lymphocytes # (Auto) 1.3, Monocytes # (Auto) 0.6, Eosinophils # (Auto) 0.2, Basophils # (Auto) 0.0, Immature Granulocyte # (Auto) 0.1, Sodium Level 141, Potassium Level 5.1H, Chloride Level 106, Carbon Dioxide Level 22, Anion Gap 13, Blood Urea Nitrogen 23H, Creatinine 1.08, Estimat Glomerular Filtration Rate 74, BUN/Creatinine Ratio 21, Glucose Level 187H, Calcium Level 8.8, Corrected Calcium 9.4, Phosphorus Level 2.5, Magnesium Level 2.1, Total Bilirubin 0.4, Aspartate Amino Transf (AST/SGOT) 18, Alanine Aminotransferase (ALT/SGPT) 11, Alkaline Phosphatase 60, Total Protein 6.9, Albumin 3.3 10/31/22 03:47: Blood Gas Puncture Site LRAD, Blood Gas Patient Temperature 37.1, Arterial Blood pH 7.31*L, Arterial Blood Partial Pressure CO2 59H, Arterial Blood Partial Pressure O2 55L, Arterial Blood HCO3 29H, Arterial Blood Total CO2 30.8, Arterial Blood Oxygen Saturation 89L, Arterial Blood Base Excess 3.3H, Maurisio Test YES-POS, Blood Gas Ventilator Setting NO, Blood Gas Inspired Oxygen 35% 10/31/22 06:14: Glucometer 175H 10/31/22 10:27: Glucometer 161H 10/31/22 15:46: Glucometer 119H Microbiology 10/29/22 Urine Culture - Final, Complete NO GROWTH 10/29/22 MRSA Screen - Final, Complete MRSA not isolated 10/28/22 Blood Culture - Preliminary, Resulted No growth Laboratory Tests 10/30/22 05:12 10/31/22 03:46 A/P: Assessment: Acute on chronic respiratory failure (multifactorial, see below) requiring Bi- pap tx Obesity with hypoventilation syndrome and SIDNEY Acute on chronic exacerbation of COPD - due to pneumonia - 2 weeks post COVID Mild troponin elevation - probably type 2 [place] due to transient hypoxia H/O seizures Coronary artery disease - history of CABG 6 done in 2012, has been followed by Dr. Adkins. History of multiple catheterizations and recalls having small vessel disease for which conservative management has been advised in the past per previous notes Acute on chronic systolic congestive heart failure - Echo May [address] Duke showing left ventricular systolic function mildly reduces, EF 40-45%, grade 1 diastolic dysfunction. Dilated left atrium, pulmonary artery pressure of 25-30 mmHg. - Echo 10/29/22: LVEF 50-55%, grade 2 diastolic dysfunction, mild LAE Chronic kidney disease stage 3 Hypertension Hyperlipidemia - statin tx COPD Status post lumbar surgery done in May 2019, prolonged and complex recovery Diabetes mellitus Obesity History of tobaccoism Plan: * Continue DAPT due to h/o CAD * Continue DVT prophylaxis due to considerable risk of DVT * BP not well controlled * increase BB * Diuretics as needed and tolerate * Management of pneumonia / ac exac of COPD is with the Med svce * Monitor labs closely JONATH[facility] EPPERSON MD [facility] CCDS Oct 31, 2022 17:15
[2022-10-31 18:52] VITALS: BP 158/88
[2022-10-31 21:58] VITALS: BP 197/86
[2022-11-01] VITALS (7 sets, daily range): BP systolic 157–193; BP diastolic 60–189
[2022-11-01] MEDS: RT-ALBUTEROL/IPRATROPIUM 3 ML (DUONEB) VIAL INH SCH ×6 (01:51→22:51)
[2022-11-01] MEDS ORDERED: LABETALOL HCL 20 MG/4 ML VIAL IV PRN (03:15)
[2022-11-01] MEDS ORDERED: LABETALOL HCL 20 MG/4 ML VIAL ONE (03:25)
[2022-11-01] MEDS: CEFEPIME 1,000 MG/NS 50 ML IVPB IV SCH ×8 (03:27→21:18)
[2022-11-01 04:04] LABS: BASOPHILS % (AUTO) 0 % (0-10); EOSINOPHILS # (AUTO) 0.1 10^3/uL (0.0-0.3); EOSINOPHILS % (AUTO) 1 % (0-10); HEMATOCRIT 37 % (40-54); HEMOGLOBIN 11.8 g/dL (13.3-17.7); LYMPHOCYTES # (AUTO) 1.5 10^3/uL (1.0-4.0); LYMPHOCYTES % (AUTO) 17 % (12-44); MEAN CORPUSCULAR HEMOGLOBIN 29 pg (25-34); MEAN CORPUSCULAR HGB CONC 32 g/dL (32-36); MEAN CORPUSCULAR VOLUME 92 fL (80-99); MEAN PLATELET VOLUME 10.1 fL (9.0-12.2); MONOCYTES # (AUTO) 0.9 10^3/uL (0.0-1.0); MONOCYTES % (AUTO) 9 % (0-12); NEUTROPHILS # (AUTO) 6.6 10^3/uL (1.8-7.8); NEUTROPHILS % (AUTO) 72 % (42-75); PLATELET COUNT 165 10^3/uL (130-400); WHITE BLOOD COUNT 9.2 10^3/uL (4.3-11.0)
[2022-11-01 04:32] LABS: ALBUMIN 3.2 GM/DL (3.2-4.5); BILIRUBIN,TOTAL 0.6 MG/DL (0.1-1.0); CREATININE SERUM 1.01 MG/DL (0.60-1.30); PHOSPHORUS 2.8 MG/DL (2.3-4.7); POTASSIUM 5.1 MMOL/L (3.6-5.0); TOTAL PROTEIN 6.8 GM/DL (6.4-8.2)
[2022-11-01 05:13] LABS: ABG BASE EXCESS 1.9 MMOL/L (-2.5-2.5); ABG OXYGEN SATURATION 92 % (94-100); ABG PCO2 50 MMHG (35-45); ABG PH 7.35 (7.37-7.43); ABG PO2 60 MMHG (79-93); ABG TCO2 28.7 MMOL/L (21.0-31.0); ALLENS TEST YES-POS
[2022-11-01 05:14] LABS: INSPIRED O2 40%; PATIENT TEMP 36.2; VENTILATOR NO
[2022-11-01] MEDS: MAGNESIUM 1 GM/100 ML IVPB 100 ML IV SCH (05:19)
[2022-11-01] MEDS: KCL 20 MEQ TAB (K-DUR) PO SCH (05:19)
[2022-11-01] MEDS: POTASSIUM CL 10MEQ/50ML IVPB 50 ML IV SCH (05:19)
[2022-11-01] MEDS: inSUlin ASPART (NovoLOG) 1 UNIT/0.01 ML (CHARGE PER UNIT) SC SCH ×2 (06:24→11:12)
[2022-11-01] MEDS: DexMEDEtomidine 250 ML DRIP 250 ML IV SCH ×2 (07:30→17:45)
--- NOTE | 2022-11-01 08:09 | Diagnostic Imaging Report ---
Indication: Dyspnea, wound management, respiratory failure. Study compared 10/31/2022. Findings: Sternal wires intact. Cardiomegaly unchanged. There is a presumed subpulmonic effusion at the right base not clearly changed. There is vascular congestion and likely perihilar edema unchanged. Impression: No significant change in right greater than left pleural-parenchymal opacities, vascular congestion and cardiomegaly. Dictated by: Dictated on workstation # [id number]
--- NOTE | 2022-11-01 08:41 | Tele-ICU Progress Note ---
Subjective Date Seen by a Provider: Nov 01, 2022 Time Seen by a Provider: 08:36 Subjective/Events-last exam This virtual visit was conducted using real time audio/video. Remains on BIPAP 18/6 FiO2 75% for COPD exacerbation, also morbid obesity, CHF, CAD, PAD, Probable SIDNEY I reviewed CXR today showing bilateral opacities, probably from CHF, Tried on vapotherm but could not tolerate after 10 min. Called by RN at 11 40 that SpO2 has dropped into the 80's and legs are mottled, at this point I would intubate pt Sepsis Event Evaluation Height, Weight, BMI Height: 5'10.00" Weight: 278lbs. 9.6oz. 126.505049bh; 40.77 BMI Method:Stated Exam Exam Patient acknowledged, consented, and participated in this virtual visit which was conducted using real time audio/video Vital Signs Date Time Temp Pulse Resp B/P (MAP) Pulse Ox O2 Delivery O2 Flow Rate FiO2 11/01/22 08:00 57 146/82 (103) 93 NIV Bilevel 50.00 11/01/22 07:41 36.0 11/01/22 07:30 54 179/89 11/01/22 07:00 54 11/01/22 07:00 52 179/94 (122) 95 NIV Bilevel 50.00 11/01/22 06:51 54 30 95 30.00 11/01/22 06:00 52 29 189/92 (124) 96 NIV Bilevel 50.00 11/01/22 05:00 48 28 175/85 (115) 96 NIV Bilevel 50.00 11/01/22 04:00 NIV Bilevel 35 11/01/22 04:00 57 26 180/89 (119) 96 NIV Bilevel 50.00 11/01/22 03:00 50 31 173/88 (116) 97 NIV Bilevel 50.00 11/01/22 02:00 56 195/87 (123) 97 NIV Bilevel 50.00 11/01/22 01:51 50 29 98 40.00 11/01/22 01:00 51 11/01/22 01:00 52 189/87 (121) 97 NIV Bilevel 50.00 11/01/22 00:00 51 31 191/85 (120) 96 NIV Bilevel 50.00 10/31/22 23:59 NIV Bilevel 35 10/31/22 23:00 53 28 195/86 (122) 96 NIV Bilevel 50.00 10/31/22 22:00 56 36 192/89 (123) 95 NIV Bilevel 50.00 10/31/22 21:58 58 31 97 40.00 10/31/22 21:00 58 30 179/77 (111) 97 NIV Bilevel 50.00 10/31/22 20:00 71 34 158/80 (106) 96 NIV Bilevel 50.00 10/31/22 20:00 36.4 10/31/22 19:50 NIV Bilevel 35 10/31/22 19:00 65 10/31/22 19:00 63 31 175/80 (111) 92 NIV Bilevel 50.00 10/31/22 18:52 61 33 95 40.00 10/31/22 18:00 67 161/77 (105) 97 NIV Bilevel 50.00 10/31/22 17:00 98 133/59 (83) 95 NIV Bilevel 50.00 10/31/22 16:15 NIV Bilevel 40.00 10/31/22 16:00 74 153/73 (99) 95 Vapotherm 30.00 60.00 10/31/22 15:26 Vapotherm 30.00 60.00 10/31/22 15:06 Vapotherm 35.00 60.00 10/31/22 15:00 70 146/95 (112) 94 NIV Bilevel 35.00 10/31/22 14:30 95 Vapotherm 30.00 50 10/31/22 14:00 70 148/59 (88) 96 NIV Bilevel 35.00 10/31/22 13:00 71 10/31/22 13:00 66 25 146/64 (91) 93 NIV Bilevel 35.00 10/31/22 12:50 NIV Bilevel 35 10/31/22 12:18 93 NIV Bilevel 35.00 10/31/22 12:00 37.1 10/31/22 12:00 66 28 161/76 (104) 95 NIV Bilevel 40.00 10/31/22 11:00 69 29 166/77 (106) 93 NIV Bilevel 40.00 10/31/22 10:42 NIV Bilevel 40.00 10/31/22 10:30 65 30 92 40.00 10/31/22 10:00 65 31 168/79 (108) 93 NIV Bilevel 35.00 10/31/22 09:00 70 36 176/78 (110) 96 NIV Bilevel 35.00 10/31/22 08:58 68 174/79 10/31/22 08:46 NIV Bilevel 35 I & O 11/01/22 07:00 Intake Total 425 ml Output Total 1950 ml Balance -1525 ml Height & Weight Height: 5'10.00" Weight: 278lbs. 9.6oz. 126.812830fa; 40.77 BMI Method:Stated General Appearance: WD/WN, Chronically ill, Moderate Distress, Obese, Other (on BiPAP) Respiratory: No Accessory Muscle Use, No Respiratory Distress, Decreased Breath Sounds (diffuse), Rhonci Cardiovascular: Regular Rate, Rhythm Capillary Refill: Less Than 3 Seconds Gastrointestinal: normal bowel sounds, non tender, soft, other (mild distension) Extremity: No Pedal Edema, Pedal Edema Neurologic/Psychiatric: Alert, Disoriented Results Lab Laboratory Tests 10/31/22 03:46 11/01/22 03:48 Assessment/Plan Assessment/Plan Acute on choric resp failure, morbid obesity, CAD will continue BIPAP but poor reserve, may need intubationj control BP, May need IV Lasix if UO drops Critical Care: Critically Ill Patient Time spent with patient (mins): 45 SHANNAN PARIKH MD Nov 01, 2022 08:41
[2022-11-01] MEDS: DOCUSATE SODIUM 100 MG (COLACE) CAP PO SCH ×2 (08:45→21:18)
[2022-11-01] MEDS: SENNOSIDES 8.6 MG (SENOKOT) TAB PO SCH ×2 (08:45→21:17)
[2022-11-01] MEDS: ASPIRIN 81 MG CHEW (CHILDREN'S ASA) PO SCH (08:46)
[2022-11-01] MEDS: CLOPIDOGREL 75 MG (PLAVIX) TABLET PO SCH (08:46)
[2022-11-01] MEDS: meTOprolol TARTRATE 25 MG (LOPRESSOR) TABLET PO SCH ×2 (08:46→21:17)
--- NOTE | 2022-11-01 11:07 | Progress Note ---
Subjective Date Seen by a Provider: Nov 01, 2022 Time Seen by a Provider: 11:00 Subjective/Events-last exam Pt was doing pretty well, stable on BiPAP but required intubation after rounds Overall prognosis guarded Review of Systems Pulmonary: Dyspnea Objective Exam Last Set of Vital Signs Vital Signs Date Time Temp Pulse Resp B/P (MAP) Pulse Ox O2 Delivery O2 Flow Rate FiO2 11/01/22 10:08 57 36 98 65.00 11/01/22 10:00 173/102 (125) NIV Bilevel 11/01/22 07:41 36.0 11/01/22 04:00 35 Capillary Refill : Less Than 3 Seconds I&O Intake and Output 11/01/22 00:00 Intake Total 425 ml Output Total 2000 ml Balance -1575 ml Intake Oral 425 ml Output Urine Total 2000 ml General: Alert, Other (on biPAP prior to intubation) Lungs: Clear to Auscultation Heart: Regular Rate Results Lab Laboratory Tests 10/31/22 15:46: Glucometer 119H 10/31/22 20:21: Glucometer 165H 11/01/22 03:48: White Blood Count 9.2, Red Blood Count 4.02L, Hemoglobin 11.8L, Hematocrit 37L, Mean Corpuscular Volume 92, Mean Corpuscular Hemoglobin 29, Mean Corpuscular Hemoglobin Concent 32, Red Cell Distribution Width 15.1H, Platelet Count 165, Mean Platelet Volume 10.1, Immature Granulocyte % (Auto) 1, Neutrophils (%) (Auto) 72, Lymphocytes (%) (Auto) 17, Monocytes (%) (Auto) 9, Eosinophils (%) (Auto) 1, Basophils (%) (Auto) 0, Neutrophils # (Auto) 6.6, Lymphocytes # (Auto) 1.5, Monocytes # (Auto) 0.9, Eosinophils # (Auto) 0.1, Basophils # (Auto) 0.0, Immature Granulocyte # (Auto) 0.1, Sodium Level 144, Potassium Level 5.1H, Chloride Level 108H, Carbon Dioxide Level 22, Anion Gap 14, Blood Urea Nitrogen 21H, Creatinine 1.01, Estimat Glomerular Filtration Rate 81, BUN/Creatinine Ratio 21, Glucose Level 164H, Calcium Level 9.0, Corrected Calcium 9.6, Phosphorus Level 2.8, Magnesium Level 2.0, Total Bilirubin 0.6, Aspartate Amino Transf (AST/SGOT) 17, Alanine Aminotransferase (ALT/SGPT) 15, Alkaline Phosphatase 58, Total Protein 6.8, Albumin 3.2 11/01/22 05:00: Blood Gas Puncture Site LEFT RADIAL, Blood Gas Patient Temperature 36.2, Arterial Blood pH 7.35L, Arterial Blood Partial Pressure CO2 50H, Arterial Blood Partial Pressure O2 60L, Arterial Blood HCO3 27, Arterial Blood Total CO2 28.7, Arterial Blood Oxygen Saturation 92L, Arterial Blood Base Excess 1.9, Maurisio Test YES-POS, Blood Gas Ventilator Setting NO, Blood Gas Inspired Oxygen 40% 11/01/22 10:47: Glucometer 137H Microbiology 10/29/22 Urine Culture - Final, Complete NO GROWTH 10/29/22 MRSA Screen - Final, Complete MRSA not isolated 10/28/22 Blood Culture - Preliminary, Resulted No growth Assessment/Plan Assessment/Plan Assess & Plan/Chief Complaint 1. Acute respiratory failure: failed biPAP now intubated 11/01/22 2. UTI: Continue cefepime regimen. 3. Metabolic encephalopathy: Continue gentle hydration and correction of acute respiratory failure. 4. DVT prophylaxis: Continue Lovenox therapy. 5. Elevated troponin: Consult cardiology. Plan: Supportive care Vent management Diagnosis/Problems Diagnosis/Problems (1) Respiratory failure, acute and chronic (2) Acute on chronic diastolic heart failure with preserved ejection fraction Status: Acute (3) Noncompliance Status: Chronic (4) Hypertension Status: Chronic (5) PVD (peripheral vascular disease) Status: Chronic Clinical Quality Measures Admission Status Admission Dx ICU Dr Mcclure consult BiPAP Monitor closely JASPER LONG DO Nov 01, 2022 11:07
[2022-11-01] MEDS: NOREPINEPHRINE 8 MG/250 ML 250 ML IV SCH ×2 (11:13→21:18)
[2022-11-01] MEDS ORDERED: amLODIPine 5 MG (NORVASC) TAB PO NR (11:30)
[2022-11-01] MEDS ORDERED: FUROSEMIDE 40 MG/4 ML INJ (LASIX) IVP NR (11:30)
[2022-11-01] MEDS: fentaNYL DRIP PRE-MIX 250 ML IV SCH ×2 (12:18→22:46)
[2022-11-01] MEDS: ENOXAPARIN 40 MG/0.4 ML (LOVENOX) SYR SC SCH ×2 (12:22→23:06)
[2022-11-01] MEDS: PROPOFOL DRIP (ICU) 100 ML IV SCH ×2 (12:23→17:45)
--- NOTE | 2022-11-01 12:32 | Diagnostic Imaging Report ---
INDICATION: ET tube placement. COMPARED: 11/01/2022 FINDINGS: ET tube tip projects over the lower thoracic trachea in good alignment. Sternal wires midline. The heart is enlarged. There is right basilar consolidation with slight improved expansion. There may be a slight reduction in subpulmonic right pleural fluid. Vascular congestion and perihilar edema showed no change. No pneumothorax. There is an OG catheter which I cannot visually confirm beyond the EG junction but this may be owing to underpenetration and body habitus. Its positioning may be best evaluated with abdominal radiograph. IMPRESSION: Cardiomegaly and vascular congestion, likely perihilar edema unchanged. Right subpulmonic pleural fluid and right basilar consolidation slightly improved. ET tube in good alignment. I cannot follow the OG catheter beyond the EG junction but this may be technical. Dictated by: Dictated on workstation # [id number]
--- NOTE | 2022-11-01 12:58 | Anesthesia-Procedure Note ---
Procedures/Interventions Procedure Start/Stop/Diagnosis Date of Procedure: Nov 01, 2022 Start Time: 11:50 Referring Physician: Dr Law Preprocedural Diagnosis: Respiratory Failure Brief History Called for an emergent intubation in ICU 10. Pt SaO2 82-84% on BiPAP prior to intubation. Versed 2 mg IV, Etomidate 20 mg IV and Succinylcholine 100 mg IV given. Stop Time: 12:00 Postprocedural Diagnosis: Same Intubation Reason Intubation/Diagnosis: Respiratory Failure RSI: Yes 100% pre-Ox, [id number]: Yes (via BiPAP) Intubation Method: orotracheal Videoscope used: Yes ([place]) Grade View: 1 Medications: Etomidate (20 mg), Succinylcholine (100 mg), Versed (2 mg) Positive End Tide CO2: Yes (color change) Breath Sounds after Intubation: bilateral-equal ETT Securred @ (cm): 23 Intubation Complications: no complications KAILA FOSTER DO Nov 01, 2022 12:58
[2022-11-01] MEDS: NS IV 1000 ML 1,000 ML IV SCH ×2 (13:30→17:45)
--- NOTE | 2022-11-01 14:04 | Occ Therapy Progress Note ---
Therapy Progress Note OT orders received and chart reviewed. Pt is currently intubated and sedated. OT will continue to monitor pt progress and initiate tx when pt is more medically stable and able to actively participate in skilled therapy. JOE BARNES OT Nov 01, 2022 14:04
[2022-11-01 14:16] LABS: BASOPHILS % (AUTO) 0 % (0-10); EOSINOPHILS # (AUTO) 0.1 10^3/uL (0.0-0.3); EOSINOPHILS % (AUTO) 1 % (0-10); HEMATOCRIT 37 % (40-54); HEMOGLOBIN 11.6 g/dL (13.3-17.7); LYMPHOCYTES # (AUTO) 0.5 10^3/uL (1.0-4.0); LYMPHOCYTES % (AUTO) 6 % (12-44); MEAN CORPUSCULAR HEMOGLOBIN 29 pg (25-34); MEAN CORPUSCULAR HGB CONC 32 g/dL (32-36); MEAN CORPUSCULAR VOLUME 92 fL (80-99); MEAN PLATELET VOLUME 10.3 fL (9.0-12.2); MONOCYTES # (AUTO) 0.6 10^3/uL (0.0-1.0); MONOCYTES % (AUTO) 6 % (0-12); NEUTROPHILS # (AUTO) 8.4 10^3/uL (1.8-7.8); NEUTROPHILS % (AUTO) 86 % (42-75); PLATELET COUNT 197 10^3/uL (130-400); WHITE BLOOD COUNT 9.8 10^3/uL (4.3-11.0)
[2022-11-01] MEDS ORDERED: SUCCINYLCHOLINE INJ 100 MG/5 ML SYR/VIAL INJ ONE (14:19)
[2022-11-01] MEDS ORDERED: MIDAZOLAM 5 MG/5 ML (VERSED) VIAL INJ ONE (14:19)
[2022-11-01] MEDS ORDERED: ETOMIDATE IV SOLN 20 MG/10 ML VIAL IV ONE (14:19)
[2022-11-01] MEDS: LABETALOL HCL 20 MG/4 ML VIAL IV PRN (14:33)
[2022-11-01 14:38] LABS: CALCIUM 9.1 MG/DL (8.5-10.1); CREATININE SERUM 1.1 MG/DL (0.60-1.30)
[2022-11-01 14:50] LABS: BAND NEUTROPHILS 11 %; BASOPHILS % (MANUAL) 1 %; EOSINOPHILS % (MANUAL) 1 %; LYMPHOCYTES % (MANUAL) 8 %; MONOCYTES % (MANUAL) 6 %; NEUTROPHILS % (MANUAL) 73 %
[2022-11-01 14:51] LABS: ANISOCYTOSIS SLIGHT; POLYCHROMASIA SLIGHT; TOXIC GRANULATION/VACUOLAZATIO 1+
[2022-11-01 14:55] LABS: ABG BASE EXCESS 2.4 MMOL/L (-2.5-2.5); ABG OXYGEN SATURATION 97 % (94-100); ABG PCO2 47 MMHG (35-45); ABG PH 7.38 (7.37-7.43); ABG PO2 80 MMHG (79-93); ABG TCO2 28.7 MMOL/L (21.0-31.0)
[2022-11-01 14:56] LABS: ALLENS TEST YES-POS; INSPIRED O2 65%; PATIENT TEMP 36.1; VENTILATOR NO
--- NOTE | 2022-11-01 17:30 | Tele-ICU Progress Note ---
Subjective Date Seen by a Provider: Nov 01, 2022 Time Seen by a Provider: 17:28 Subjective/Events-last exam called for elevated BP, 192/77 HR 60-70 will give 10 mg IV hydralazine Sepsis Event Evaluation Height, Weight, BMI Height: 5'10.00" Weight: 278lbs. 9.6oz. 126.144431pv; 40.77 BMI Method:Stated Exam Exam Patient acknowledged, consented, and participated in this virtual visit which was conducted using real time audio/video Vital Signs Date Time Temp Pulse Resp B/P (MAP) Pulse Ox O2 Delivery O2 Flow Rate FiO2 11/01/22 17:00 67 16 192/77 (115) 99 Mechanical Ventilator 100.00 11/01/22 16:00 67 16 196/78 (117) 99 Mechanical Ventilator 100.00 11/01/22 16:00 36.3 11/01/22 15:00 60 16 193/79 (117) 99 Mechanical Ventilator 100.00 11/01/22 14:28 53 16 98 100 11/01/22 14:00 50 98 Mechanical Ventilator 100.00 11/01/22 13:00 55 11/01/22 13:00 53 175/80 (111) 97 Mechanical Ventilator 100.00 11/01/22 12:23 60 146/86 11/01/22 12:18 61 146/110 11/01/22 12:00 60 30 94 100 11/01/22 12:00 50 13 152/77 (102) 88 NIV Bilevel 65.00 11/01/22 12:00 97 Mechanical Ventilator 100 11/01/22 11:00 57 18 151/76 (101) 93 NIV Bilevel 65.00 11/01/22 10:08 57 36 98 65.00 11/01/22 10:00 57 18 173/102 (125) 93 NIV Bilevel 65.00 11/01/22 09:12 94 NIV Bilevel 65.00 11/01/22 09:07 84 NIV Bilevel 100.00 11/01/22 09:01 96 Vapotherm 30.00 60.00 11/01/22 09:00 57 184/82 (116) 97 NIV Bilevel 50.00 11/01/22 08:55 91 NIV Bilevel 30.00 11/01/22 08:00 57 146/82 (103) 93 NIV Bilevel 50.00 11/01/22 07:41 36.0 11/01/22 07:30 54 179/89 11/01/22 07:00 54 11/01/22 07:00 52 179/94 (122) 95 NIV Bilevel 50.00 11/01/22 06:51 54 30 95 30.00 11/01/22 06:00 52 29 189/92 (124) 96 NIV Bilevel 50.00 11/01/22 05:00 48 28 175/85 (115) 96 NIV Bilevel 50.00 11/01/22 04:00 NIV Bilevel 35 11/01/22 04:00 57 26 180/89 (119) 96 NIV Bilevel 50.00 11/01/22 03:00 50 31 173/88 (116) 97 NIV Bilevel 50.00 11/01/22 02:00 56 195/87 (123) 97 NIV Bilevel 50.00 11/01/22 01:51 50 29 98 40.00 11/01/22 01:00 51 11/01/22 01:00 52 189/87 (121) 97 NIV Bilevel 50.00 11/01/22 00:00 51 31 191/85 (120) 96 NIV Bilevel 50.00 10/31/22 23:59 NIV Bilevel 35 10/31/22 23:00 53 28 195/86 (122) 96 NIV Bilevel 50.00 10/31/22 22:00 56 36 192/89 (123) 95 NIV Bilevel 50.00 10/31/22 21:58 58 31 97 40.00 10/31/22 21:00 58 30 179/77 (111) 97 NIV Bilevel 50.00 10/31/22 20:00 71 34 158/80 (106) 96 NIV Bilevel 50.00 10/31/22 20:00 36.4 10/31/22 19:50 NIV Bilevel 35 10/31/22 19:00 65 10/31/22 19:00 63 31 175/80 (111) 92 NIV Bilevel 50.00 10/31/22 18:52 61 33 95 40.00 10/31/22 18:00 67 161/77 (105) 97 NIV Bilevel 50.00 I & O 11/01/22 07:00 Intake Total 425 ml Output Total 1950 ml Balance -1525 ml Height & Weight Height: 5'10.00" Weight: 278lbs. 9.6oz. 126.997706jq; 40.77 BMI Method:Stated General Appearance: WD/WN, Chronically ill, Moderate Distress, Obese, Other (on BiPAP) Respiratory: No Accessory Muscle Use, No Respiratory Distress, Decreased Breath Sounds (diffuse), Rhonci Cardiovascular: Regular Rate, Rhythm Capillary Refill: Less Than 3 Seconds Gastrointestinal: normal bowel sounds, non tender, soft, other (mild distension) Extremity: No Pedal Edema, Pedal Edema Neurologic/Psychiatric: Alert, Disoriented Results Lab Laboratory Tests 10/31/22 03:46 11/01/22 03:48 11/01/22 13:50 Assessment/Plan Assessment/Plan will give 10 mg IV hydralazine for HTN Critical Care: Ventilator Management Time spent with patient (mins): 10 SHANNAN PARIKH MD Nov 01, 2022 17:30
--- NOTE | 2022-11-01 18:06 | Progress Note - Cardiology ---
Cardiology SOAP Progress Note Subjective: On [facility] vent Sedated Unable to communicate Objective: I&O/Vital Signs 11/01/22 11/01/22 11/01/22 11/01/22 06:51 07:00 07:00 07:30 Pulse 54 52 54 54 Resp 30 B/P (MAP) 179/94 (122) 179/89 Pulse Ox 95 95 O2 Delivery NIV Bilevel O2 Flow Rate 30.00 50.00 11/01/22 11/01/22 11/01/22 11/01/22 07:41 08:00 08:55 09:00 Temp 36.0 Pulse 57 57 B/P (MAP) 146/82 (103) 184/82 (116) Pulse Ox 93 91 97 O2 Delivery NIV Bilevel NIV Bilevel NIV Bilevel O2 Flow Rate 50.00 30.00 50.00 11/01/22 11/01/22 11/01/22 11/01/22 09:01 09:07 09:12 10:00 Pulse 57 Resp 18 B/P (MAP) 173/102 (125) Pulse Ox 96 84 94 93 O2 Delivery Vapotherm NIV Bilevel NIV Bilevel NIV Bilevel O2 Flow Rate 30.00 100.00 65.00 65.00 60.00 11/01/22 11/01/22 11/01/22 11/01/22 10:08 11:00 12:00 12:00 Pulse 57 57 50 Resp 36 18 13 B/P (MAP) 151/76 (101) 152/77 (102) Pulse Ox 98 93 97 88 O2 Delivery NIV Bilevel Mechanical Ventilator NIV Bilevel O2 Flow Rate 65.00 65.00 65.00 FiO2 100 11/01/22 11/01/22 11/01/22 11/01/22 12:00 12:18 12:23 13:00 Pulse 60 61 60 53 Resp 30 B/P (MAP) 146/110 146/86 175/80 (111) Pulse Ox 94 97 O2 Delivery Mechanical Ventilator O2 Flow Rate 100.00 FiO2 100 11/01/22 11/01/22 11/01/22 11/01/22 13:00 14:00 14:28 15:00 Pulse 55 50 53 60 Resp 16 16 B/P (MAP) 193/79 (117) Pulse Ox 98 98 99 O2 Delivery Mechanical Ventilator Mechanical Ventilator O2 Flow Rate 100.00 100.00 FiO2 100 11/01/22 11/01/22 11/01/22 11/01/22 16:00 16:00 17:00 17:45 Temp 36.3 Pulse 67 67 67 Resp 16 16 B/P (MAP) 196/78 (117) 192/77 (115) 192/77 Pulse Ox 99 99 O2 Delivery Mechanical Ventilator Mechanical Ventilator O2 Flow Rate 100.00 100.00 11/01/22 17:45 Pulse 67 B/P (MAP) 192/77 11/01/22 00:00 Intake Total 375 ml Output Total 1000 ml Balance -625 ml Weight (Pounds): 278 Weight (Ounces): 9.6 Weight (Calculated Kilograms): 126.572342 Constitutional: AAO x 3, other (morbid obesity) Respiratory: No accessory muscle use, No respiratory distress; other (fair air entry) Cardiovascular: regular rate-rhythm; No JVD; S1 and S2 Gastrointestional: No tender; soft, round; No guarding; audible bowel sounds Extremities: no lower extremity edema bilateral Neurologic/Psychiatric: other (moves extremities) Skin: No rash on exposed areas, No ulcerations on exposed areas; other (dressing to LLE which is D&I) Results/Procedures: Labs Laboratory Tests 10/31/22 20:21: Glucometer 165H 11/01/22 03:48: White Blood Count 9.2, Red Blood Count 4.02L, Hemoglobin 11.8L, Hematocrit 37L, Mean Corpuscular Volume 92, Mean Corpuscular Hemoglobin 29, Mean Corpuscular Hemoglobin Concent 32, Red Cell Distribution Width 15.1H, Platelet Count 165, Mean Platelet Volume 10.1, Immature Granulocyte % (Auto) 1, Neutrophils (%) (Auto) 72, Lymphocytes (%) (Auto) 17, Monocytes (%) (Auto) 9, Eosinophils (%) (Auto) 1, Basophils (%) (Auto) 0, Neutrophils # (Auto) 6.6, Lymphocytes # (Auto) 1.5, Monocytes # (Auto) 0.9, Eosinophils # (Auto) 0.1, Basophils # (Auto) 0.0, Immature Granulocyte # (Auto) 0.1, Sodium Level 144, Potassium Level 5.1H, Chloride Level 108H, Carbon Dioxide Level 22, Anion Gap 14, Blood Urea Nitrogen 21H, Creatinine 1.01, Estimat Glomerular Filtration Rate 81, BUN/Creatinine Ratio 21, Glucose Level 164H, Calcium Level 9.0, Corrected Calcium 9.6, Phosphorus Level 2.8, Magnesium Level 2.0, Total Bilirubin 0.6, Aspartate Amino Transf (AST/SGOT) 17, Alanine Aminotransferase (ALT/SGPT) 15, Alkaline Phosphatase 58, Total Protein 6.8, Albumin 3.2 11/01/22 05:00: Blood Gas Puncture Site LEFT RADIAL, Blood Gas Patient Temperature 36.2, Arterial Blood pH 7.35L, Arterial Blood Partial Pressure CO2 50H, Arterial Blood Partial Pressure O2 60L, Arterial Blood HCO3 27, Arterial Blood Total CO2 28.7, Arterial Blood Oxygen Saturation 92L, Arterial Blood Base Excess 1.9, Maurisio Test YES-POS, Blood Gas Ventilator Setting NO, Blood Gas Inspired Oxygen 40% 11/01/22 10:47: Glucometer 137H 11/01/22 13:50: White Blood Count 9.8, Red Blood Count 3.99L, Hemoglobin 11.6L, Hematocrit 37L, Mean Corpuscular Volume 92, Mean Corpuscular Hemoglobin 29, Mean Corpuscular Hemoglobin Concent 32, Red Cell Distribution Width 15.0H, Platelet Count 197, Mean Platelet Volume 10.3, Immature Granulocyte % (Auto) 1, Neutrophils (%) (Auto) 86H, Lymphocytes (%) (Auto) 6L, Monocytes (%) (Auto) 6, Eosinophils (%) (Auto) 1, Basophils (%) (Auto) 0, Neutrophils # (Auto) 8.4H, Lymphocytes # (Auto) 0.5L, Monocytes # (Auto) 0.6, Eosinophils # (Auto) 0.1, Basophils # (Auto) 0.0, Immature Granulocyte # (Auto) 0.1, Neutrophils % (Manual) 73, Lymphocytes % (Manual) 8, Monocytes % (Manual) 6, Eosinophils % (Manual) 1, Basophils % (Manual) 1, Band Neutrophils 11, Toxic Granulation 1+, Polychromasia SLIGHT, Basophilic Stippling SLIGHT, Anisocytosis SLIGHT, Sodium Level 143, Potassium Level 6.0H, Chloride Level 106, Carbon Dioxide Level 24, Anion Gap 13, Blood Urea Nitrogen 25H, Creatinine 1.10, Estimat Glomerular Filtration Rate 73, BUN/Creatinine Ratio 23, Glucose Level 169H, Calcium Level 9.1, Triglycerides Level 158H 11/01/22 14:51: Blood Gas Puncture Site RT RADIAL, Blood Gas Patient Temperature 36.1, Arterial Blood pH 7.38, Arterial Blood Partial Pressure CO2 47H, Arterial Blood Partial Pressure O2 80, Arterial Blood HCO3 27, Arterial Blood Total CO2 28.7, Arterial Blood Oxygen Saturation 97, Arterial Blood Base Excess 2.4, Maurisio Test YES-POS, Blood Gas Ventilator Setting NO, Blood Gas Inspired Oxygen 65% Microbiology 10/29/22 Urine Culture - Final, Complete NO GROWTH 10/29/22 MRSA Screen - Final, Complete MRSA not isolated 10/28/22 Blood Culture - Preliminary, Resulted No growth A/P: Assessment: Acute on chronic respiratory failure (multifactorial, see below) re - worsening, now on mech vent Obesity with hypoventilation syndrome and SIDNEY Acute on chronic exacerbation of COPD - due to pneumonia - 2 weeks post COVID Mild troponin elevation - probably type 2 IN due to transient hypoxia H/O seizures Coronary artery disease - history of CABG 6 done in 2012, has been followed by Dr. Adkins. History of multiple catheterizations and recalls having small vessel disease for which conservative management has been advised in the past per previous notes Acute on chronic systolic congestive heart failure - Echo May [address] Duke showing left ventricular systolic function mildly reduces, EF 40-45%, grade 1 diastolic dysfunction. Dilated left atrium, pulmonary artery pressure of 25-30 mmHg. - Echo 10/29/22: LVEF 50-55%, grade 2 diastolic dysfunction, mild LAE Chronic kidney disease stage 3 Hypertension, uncontrolled Hyperlipidemia - statin tx COPD Status post lumbar surgery done in May 2019, prolonged and complex recovery Diabetes mellitus Obesity History of tobaccoism Plan: * Complex management due to worsening resp failure * Continue DAPT due to h/o CAD * Continue DVT prophylaxis due to considerable risk of DVT * BP not well controlled * iv hydralazine as needed * Diuretics as needed and tolerate * Give lasix today * Management of pneumonia / ac exac of COPD is with the Med svce * Monitor labs closely JONATHAN EPPERSON MD [facility] Nov 01, 2022 18:06
[2022-11-01] MEDS: hydrALAZINE (APESOLINE) 20 MG/ML VIAL IV PRN ×2 (18:09→20:05)
--- NOTE | 2022-11-01 19:51 | Physician Query Clarification ---
Physician Query-General Query to Physician: The medical record reflects the following clinical scenario: The patient, in the setting of History/Risk factors, CAD, HTN, Hypoxia with AHRF, HF Clinical Findings On Admission S0A at rest, SpO2 86% sat on 10 L, troponin I 0.895 then 0.752 Treatment Enoxaparin, Norvasc, Plavix, metoprolol, aspirin, Lasix IV, hydralazine IV, labetalol IV, Cardiology consult, Question: Do you agree with the impression of Type II GA per Phil Walter Hammad? 1. Yes; will document Type II GA, present on admission in the Progress Notes 2. No; will continue current documentation in the Progress Notes 3. Other; will document explanation of clinical findings 4. Clinically undetermined; no explanation for clinical findings Please clarify and document your clinical opinion in the Progress Notes and Discharge Summary including the definitive and/or presumptive diagnosis, (suspected or probable), related to the above clinical findings. Please include clinical findings supporting your diagnosis. In responding to this query, please exercise your independent professional judgment. The purpose of this communication is to more accurately reflect the complexity of your patients condition. The fact that a question is asked does not imply that any particular answer is desired or expected. Thank you for timely response to this clarification. Dianna Bailey RN, MSN Clinical Fan Balancer [phone] [email or web address] PHYSICIAN RESPONSE: Based on the clinical findings in the record, please respond to the query above on this document as an addendum. Physician Response: Physician Response 1 If you have questions please contact: Tugboat Engineer: Ext: Thank you for your time and cooperation. Clinical Fan Balancer/Tugboat Engineer This is a permanent part of the medical record DIANNA BAILEY Nov 01, 2022 19:51 JASPER LONG DO Nov 01, 2022 21:31
[2022-11-02] MEDS: inSUlin ASPART (NovoLOG) 1 UNIT/0.01 ML (CHARGE PER UNIT) SC SCH ×5 (00:31→23:57)
[2022-11-02] MEDS: PROPOFOL DRIP (ICU) 100 ML IV SCH ×4 (00:40→19:49)
[2022-11-02 01:13] LABS: ABG BASE EXCESS 3.4 MMOL/L (-2.5-2.5); ABG OXYGEN SATURATION 95 % (94-100); ABG PCO2 50 MMHG (35-45); ABG PH 7.37 (7.37-7.43); ABG PO2 74 MMHG (79-93); ABG TCO2 29.8 MMOL/L (21.0-31.0)
[2022-11-02 01:17] LABS: ALLENS TEST YES-POS; PATIENT TEMP 37; VENTILATOR YES
[2022-11-02] MEDS: RT-ALBUTEROL/IPRATROPIUM 3 ML (DUONEB) VIAL INH SCH ×6 (02:15→22:21)
[2022-11-02 02:16] VITALS: BP 158/54
[2022-11-02] MEDS: DexMEDEtomidine 250 ML DRIP 250 ML IV SCH ×3 (03:46→23:57)
[2022-11-02] MEDS: CEFEPIME 1,000 MG/NS 50 ML IVPB IV SCH ×8 (03:47→20:55)
[2022-11-02 04:03] LABS: ABG BASE EXCESS 4.1 MMOL/L (-2.5-2.5); ABG OXYGEN SATURATION 94 % (94-100); ABG PCO2 50 MMHG (35-45); ABG PH 7.38 (7.37-7.43); ABG PO2 69 MMHG (79-93); ABG TCO2 30.4 MMOL/L (21.0-31.0)
[2022-11-02 04:22] LABS: ALLENS TEST YES-POS; PATIENT TEMP 98.6; VENTILATOR YES
[2022-11-02 04:45] LABS: BASOPHILS # (AUTO) 0.1 10^3/uL (0.0-0.1); BASOPHILS % (AUTO) 1 % (0-10); EOSINOPHILS % (AUTO) 0 % (0-10); HEMATOCRIT 35 % (40-54); HEMOGLOBIN 11.7 g/dL (13.3-17.7); LYMPHOCYTES % (AUTO) 5 % (12-44); MEAN CORPUSCULAR HEMOGLOBIN 31 pg (25-34); MEAN CORPUSCULAR HGB CONC 34 g/dL (32-36); MEAN CORPUSCULAR VOLUME 92 fL (80-99); MEAN PLATELET VOLUME 9.6 fL (9.0-12.2); MONOCYTES # (AUTO) 0.7 10^3/uL (0.0-1.0); MONOCYTES % (AUTO) 4 % (0-12); NEUTROPHILS # (AUTO) 15.4 10^3/uL (1.8-7.8); NEUTROPHILS % (AUTO) 77 % (42-75); PLATELET COUNT 306 10^3/uL (130-400); WHITE BLOOD COUNT 20.1 10^3/uL (4.3-11.0)
[2022-11-02 05:12] LABS: ALBUMIN 2.9 GM/DL (3.2-4.5); BILIRUBIN,TOTAL 0.3 MG/DL (0.1-1.0); CALCIUM 8.8 MG/DL (8.5-10.1); CREATININE SERUM 1.09 MG/DL (0.60-1.30); MAGNESIUM 2.2 MG/DL (1.6-2.4); PHOSPHORUS 4.3 MG/DL (2.3-4.7); POTASSIUM 5.3 MMOL/L (3.6-5.0); TOTAL PROTEIN 5.3 GM/DL (6.4-8.2)
[2022-11-02] MEDS: MAGNESIUM 1 GM/100 ML IVPB 100 ML IV SCH (05:23)
[2022-11-02] MEDS: POTASSIUM CL 10MEQ/50ML IVPB 50 ML IV SCH (05:23)
[2022-11-02] MEDS: KCL 20 MEQ TAB (K-DUR) PO SCH (05:24)
--- NOTE | 2022-11-02 06:46 | Progress Note ---
Subjective Date Seen by a Provider: Nov 02, 2022 Time Seen by a Provider: 11:00 Subjective/Events-last exam Remains intubated Reviewed meds No concerns per nurse We will try to perform wean protocol saline Objective Exam Last Set of Vital Signs Vital Signs Date Time Temp Pulse Resp B/P (MAP) Pulse Ox O2 Delivery O2 Flow Rate FiO2 11/02/22 06:00 67 15 157/61 (93) 98 Mechanical Ventilator 80.00 11/02/22 04:00 75 11/02/22 03:37 36.3 Capillary Refill : Less Than 3 Seconds I&O Intake and Output 11/02/22 00:00 Intake Total 1840 ml Output Total 5300 ml Balance -3460 ml Intake Oral 50 ml IV Total 1700 ml Tube Feeding 90 ml Output Urine Total 5300 ml General: Other (Sedated and intubated) Lungs: Clear to Auscultation Heart: Regular Rate Abdomen: Normal Bowel Sounds Extremities: No Clubbing Skin: No Rashes Results Lab Laboratory Tests 11/01/22 10:47: Glucometer 137H 11/01/22 13:50: White Blood Count 9.8, Red Blood Count 3.99L, Hemoglobin 11.6L, Hematocrit 37L, Mean Corpuscular Volume 92, Mean Corpuscular Hemoglobin 29, Mean Corpuscular Hemoglobin Concent 32, Red Cell Distribution Width 15.0H, Platelet Count 197, Mean Platelet Volume 10.3, Immature Granulocyte % (Auto) 1, Neutrophils (%) (Auto) 86H, Lymphocytes (%) (Auto) 6L, Monocytes (%) (Auto) 6, Eosinophils (%) (Auto) 1, Basophils (%) (Auto) 0, Neutrophils # (Auto) 8.4H, Lymphocytes # (Auto) 0.5L, Monocytes # (Auto) 0.6, Eosinophils # (Auto) 0.1, Basophils # (Auto) 0.0, Immature Granulocyte # (Auto) 0.1, Neutrophils % (Manual) 73, Lymphocytes % (Manual) 8, Monocytes % (Manual) 6, Eosinophils % (Manual) 1, Basophils % (Manual) 1, Band Neutrophils 11, Toxic Granulation 1+, Polychromasia SLIGHT, Basophilic Stippling SLIGHT, Anisocytosis SLIGHT, Sodium Level 143, Potassium Level 6.0H, Chloride Level 106, Carbon Dioxide Level 24, Anion Gap 13, Blood Urea Nitrogen 25H, Creatinine 1.10, Estimat Glomerular Filtration Rate 73, BUN/Creatinine Ratio 23, Glucose Level 169H, Calcium Level 9.1, Triglycerides Level 158H 11/01/22 14:51: Blood Gas Puncture Site RT RADIAL, Blood Gas Patient Temperature 36.1, Arterial Blood pH 7.38, Arterial Blood Partial Pressure CO2 47H, Arterial Blood Partial Pressure O2 80, Arterial Blood HCO3 27, Arterial Blood Total CO2 28.7, Arterial Blood Oxygen Saturation 97, Arterial Blood Base Excess 2.4, Maurisio Test YES-POS, Blood Gas Ventilator Setting NO, Blood Gas Inspired Oxygen 65% 11/01/22 18:14: Glucometer 163H 11/02/22 00:04: Glucometer 141H 11/02/22 01:05: Blood Gas Puncture Site RIGHT RADIAL, Blood Gas Patient Temperature 37, Arterial Blood pH 7.37, Arterial Blood Partial Pressure CO2 50H, Arterial Blood Partial Pressure O2 74L, Arterial Blood HCO3 28H, Arterial Blood Total CO2 29.8, Arterial Blood Oxygen Saturation 95, Arterial Blood Base Excess 3.4H, Maurisio Test YES-POS, Blood Gas Ventilator Setting YES, Blood Gas Inspired Oxygen NA 11/02/22 03:55: Blood Gas Puncture Site RIGHT RADIAL, Blood Gas Patient Temperature 98.6, Arterial Blood pH 7.38, Arterial Blood Partial Pressure CO2 50H, Arterial Blood Partial Pressure O2 69L, Arterial Blood HCO3 29H, Arterial Blood Total CO2 30.4, Arterial Blood Oxygen Saturation 94, Arterial Blood Base Excess 4.1H, Maurisio Test YES-POS, Blood Gas Ventilator Setting YES, Blood Gas Inspired Oxygen NA 11/02/22 04:11: White Blood Count 20.1H, Red Blood Count 3.77L, Hemoglobin 11.7L, Hematocrit 35L , Mean Corpuscular Volume 92, Mean Corpuscular Hemoglobin 31, Mean Corpuscular Hemoglobin Concent 34, Red Cell Distribution Width 16.0H, Platelet Count 306, Mean Platelet Volume 9.6, Immature Granulocyte % (Auto) 14, Neutrophils (%) (Auto) 77H, Lymphocytes (%) (Auto) 5L, Monocytes (%) (Auto) 4, Eosinophils (%) (Auto) 0, Basophils (%) (Auto) 1, Neutrophils # (Auto) 15.4H, Lymphocytes # (Auto) 1.0, Monocytes # (Auto) 0.7, Eosinophils # (Auto) 0.0, Basophils # (Auto) 0.1, Immature Granulocyte # (Auto) 2.9H, Sodium Level 137, Potassium Level 5.3H, Chloride Level 103, Carbon Dioxide Level 22, Anion Gap 12, Blood Urea Nitrogen 45H, Creatinine 1.09, Estimat Glomerular Filtration Rate 73, BUN/Creatinine Ratio 41, Glucose Level 166H, Calcium Level 8.8, Corrected Calcium 9.7, Phosphorus Level 4.3, Magnesium Level 2.2, Total Bilirubin 0.3, Aspartate Amino Transf (AST/SGOT) 20, Alanine Aminotransferase (ALT/SGPT) 22, Alkaline Phosphatase 53, Total Protein 5.3L, Albumin 2.9L Microbiology 10/29/22 Urine Culture - Final, Complete NO GROWTH 10/29/22 MRSA Screen - Final, Complete MRSA not isolated 10/28/22 Blood Culture - Preliminary, Resulted No growth Assessment/Plan Assessment/Plan Assess & Plan/Chief Complaint 1. Acute respiratory failure: failed biPAP now intubated 11/01/22 2. UTI: Continue cefepime regimen. 3. Metabolic encephalopathy: Continue gentle hydration and correction of acute r espiratory failure. 4. DVT prophylaxis: Continue Lovenox therapy. 5. Elevated troponin: Consult cardiology. Plan: Supportive care Vent management Diagnosis/Problems Diagnosis/Problems (1) Respiratory failure, acute and chronic (2) Acute on chronic diastolic heart failure with preserved ejection fraction Status: Acute (3) Noncompliance Status: Chronic (4) Hypertension Status: Chronic (5) PVD (peripheral vascular disease) Status: Chronic Clinical Quality Measures Admission Status Admission Dx ICU Dr Mcclure consult BiPAP Monitor closely JASPER LONG DO Nov 02, 2022 06:46
[2022-11-02] MEDS: NOREPINEPHRINE 8 MG/250 ML 250 ML IV SCH ×2 (07:49→16:30)
[2022-11-02 07:51] VITALS: BP 137/47
[2022-11-02] MEDS: DOCUSATE SODIUM 100 MG (COLACE) CAP PO SCH ×2 (07:55→20:54)
[2022-11-02] MEDS: ASPIRIN 81 MG CHEW (CHILDREN'S ASA) PO SCH (08:48)
[2022-11-02] MEDS: CLOPIDOGREL 75 MG (PLAVIX) TABLET PO SCH (08:49)
[2022-11-02] MEDS: amLODIPine 5 MG (NORVASC) TAB PO SCH (08:49)
[2022-11-02] MEDS: SENNOSIDES 8.6 MG (SENOKOT) TAB PO SCH ×2 (08:49→20:54)
[2022-11-02] MEDS: meTOprolol TARTRATE 25 MG (LOPRESSOR) TABLET PO SCH ×2 (08:49→20:56)
--- NOTE | 2022-11-02 08:50 | Diagnostic Imaging Report ---
CHEST 1 VIEW, AP/PA ONLY Indication: Intubation Comparison: 11/01/2022 Findings: Stable ET and enteric tubes. Right PICC has tip terminating near the superior cavoatrial junction. No change in bilateral consolidations. Layering right pleural effusion is unchanged. No pneumothorax. Stable cardiomegaly. Impression: 1. Well-positioned support devices. 2. No change in pulmonary consolidations that may be due to edema. Dictated by: Dictated on workstation # [id number]
--- NOTE | 2022-11-02 08:52 | Tele-ICU Progress Note ---
Subjective Date Seen by a Provider: Nov 02, 2022 Time Seen by a Provider: 08:47 Subjective/Events-last exam This virtual visit was conducted using real time audio/video. Had to be intubated yesterday due to increaed WOB, now on AC 16, Vt 500 FiO2 80% Sedated RASS -1, IV Propofol 20, IV Fentnayl 100 Precedes 0.8 CXR shows diffuse haziness, increased HS, high diaphragms from obesity Needs suctioning every 4 hours, Has a good cough Not a candidate for SBT continue on Lasix, Cefpime, off pressors, will give one dose of IV Lasix Also Sepsis Event Evaluation Height, Weight, BMI Height: 5'10.00" Weight: 278lbs. 9.6oz. 126.844392li; 40.51 BMI Method:Stated Exam Exam Patient acknowledged, consented, and participated in this virtual visit which was conducted using real time audio/video Vital Signs Date Time Temp Pulse Resp B/P (MAP) Pulse Ox O2 Delivery O2 Flow Rate FiO2 11/02/22 07:56 37.0 11/02/22 07:55 67 157/61 11/02/22 07:54 67 157/61 11/02/22 07:51 65 16 97 80 11/02/22 07:00 67 11/02/22 06:00 67 15 157/61 (93) 98 Mechanical Ventilator 80.00 11/02/22 05:04 Mechanical Ventilator 80.00 11/02/22 05:04 88 22 90 11/02/22 05:00 77 16 120/70 (87) 95 Mechanical Ventilator 75.00 11/02/22 04:00 94 Mechanical Ventilator 75 11/02/22 04:00 73 14 146/55 (85) 95 Mechanical Ventilator 75.00 11/02/22 03:46 70 164/57 11/02/22 03:37 36.3 11/02/22 03:00 70 16 161/58 (92) 96 Mechanical Ventilator 75.00 11/02/22 02:16 68 16 96 75 11/02/22 02:00 70 16 158/56 (90) 96 Mechanical Ventilator 75.00 11/02/22 01:00 80 11/02/22 01:00 77 16 142/51 (81) 96 Mechanical Ventilator 75.00 11/02/22 00:50 36.6 11/02/22 00:40 69 164/60 11/02/22 00:00 96 Mechanical Ventilator 75 11/02/22 00:00 73 16 164/60 (94) 96 Mechanical Ventilator 75.00 11/01/22 23:06 Mechanical Ventilator 75.00 11/01/22 23:00 70 16 164/58 (93) 95 Mechanical Ventilator 85.00 11/01/22 22:51 69 16 96 75 11/01/22 22:46 63 151/55 11/01/22 22:00 71 16 152/54 (86) 96 Mechanical Ventilator 85.00 11/01/22 21:18 151/55 11/01/22 21:00 75 16 142/54 (83) 98 Mechanical Ventilator 85.00 11/01/22 20:00 97 Mechanical Ventilator 85 11/01/22 20:00 73 16 149/54 (85) 98 Mechanical Ventilator 85.00 11/01/22 19:57 36.7 11/01/22 19:30 36.2 Mechanical Ventilator 85.00 11/01/22 19:00 62 16 163/60 (94) 96 Mechanical Ventilator 100.00 11/01/22 19:00 63 11/01/22 18:57 61 16 97 85 11/01/22 18:00 64 16 171/62 (98) 99 Mechanical Ventilator 100.00 11/01/22 17:45 67 192/77 11/01/22 17:45 67 192/77 11/01/22 17:00 67 16 192/77 (115) 99 Mechanical Ventilator 100.00 11/01/22 16:00 67 16 196/78 (117) 99 Mechanical Ventilator 100.00 11/01/22 16:00 36.3 11/01/22 16:00 99 Mechanical Ventilator 100 11/01/22 15:00 60 16 193/79 (117) 99 Mechanical Ventilator 100.00 11/01/22 14:28 53 16 98 100 11/01/22 14:00 50 98 Mechanical Ventilator 100.00 11/01/22 13:00 55 11/01/22 13:00 53 175/80 (111) 97 Mechanical Ventilator 100.00 11/01/22 12:23 60 146/86 11/01/22 12:18 61 146/110 11/01/22 12:00 60 30 94 100 11/01/22 12:00 50 13 152/77 (102) 88 NIV Bilevel 65.00 11/01/22 12:00 97 Mechanical Ventilator 100 11/01/22 11:00 57 18 151/76 (101) 93 NIV Bilevel 65.00 11/01/22 10:08 57 36 98 65.00 11/01/22 10:00 57 18 173/102 (125) 93 NIV Bilevel 65.00 11/01/22 09:12 94 NIV Bilevel 65.00 11/01/22 09:07 84 NIV Bilevel 100.00 11/01/22 09:01 96 Vapotherm 30.00 60.00 11/01/22 09:00 57 184/82 (116) 97 NIV Bilevel 50.00 11/01/22 08:55 91 NIV Bilevel 30.00 I & O 11/02/22 07:00 Intake Total 1840 ml Output Total 5950 ml Balance -4110 ml Height & Weight Height: 5'10.00" Weight: 278lbs. 9.6oz. 126.089168pu; 40.51 BMI Method:Stated General Appearance: WD/WN, Chronically ill, Moderate Distress, Obese, Other (on BiPAP) Respiratory: No Accessory Muscle Use, No Respiratory Distress, Decreased Breath Sounds (diffuse), Rhonci Cardiovascular: Regular Rate, Rhythm Capillary Refill: Less Than 3 Seconds Gastrointestinal: normal bowel sounds, non tender, soft, other (mild distension) Extremity: No Pedal Edema, Pedal Edema Neurologic/Psychiatric: Alert, Disoriented Results Lab Laboratory Tests 11/01/22 03:48 11/01/22 13:50 11/02/22 04:11 Assessment/Plan Assessment/Plan CXR shows too much congestion to try SBT, will give one dose of IV Lasix, start on TF Critical Care: Ventilator Management Time spent with patient (mins): 30 SHANNAN PARIKH MD Nov 02, 2022 08:52
[2022-11-02] MEDS: NS IV 1000 ML 1,000 ML IV SCH (08:59)
[2022-11-02] MEDS ORDERED: FUROSEMIDE 40 MG (LASIX) TAB PO SCH (09:00)
[2022-11-02] MEDS ORDERED: FUROSEMIDE 40 MG/4 ML INJ (LASIX) IVP NR (09:45)
[2022-11-02] MEDS: ENOXAPARIN 40 MG/0.4 ML (LOVENOX) SYR SC SCH ×2 (10:01→22:56)
[2022-11-02 10:34] VITALS: BP 178/65
[2022-11-02] MEDS: LABETALOL HCL 20 MG/4 ML VIAL IV PRN ×2 (10:57→23:44)
--- NOTE | 2022-11-02 11:03 | Progress Note - Cardiology ---
Cardiology SOAP Progress Note [facility] Unable to communicate Objective: I&O/Vital Signs 11/01/22 11/02/22 11/02/22 11/02/22 23:06 00:00 00:00 00:40 Pulse 73 69 Resp 16 B/P (MAP) 164/60 (94) 164/60 Pulse Ox 96 96 O2 Delivery Mechanical Ventilator Mechanical Ventilator Mechanical Ventilator O2 Flow Rate 75.00 75.00 FiO2 75 11/02/22 11/02/22 11/02/22 11/02/22 00:50 01:00 01:00 02:00 Temp 36.6 Pulse 77 80 70 Resp 16 16 B/P (MAP) 142/51 (81) 158/56 (90) Pulse Ox 96 96 O2 Delivery Mechanical Ventilator Mechanical Ventilator O2 Flow Rate 75.00 75.00 11/02/22 11/02/22 11/02/22 11/02/22 02:16 03:00 03:37 03:46 Temp 36.3 Pulse 68 70 70 Resp 16 16 B/P (MAP) 161/58 (92) 164/57 Pulse Ox 96 96 O2 Delivery Mechanical Ventilator O2 Flow Rate 75.00 FiO2 75 11/02/22 11/02/22 11/02/22 11/02/22 04:00 04:00 05:00 05:04 Pulse 73 77 88 Resp 22 B/P (MAP) 146/55 (85) 120/70 (87) Pulse Ox 95 94 95 90 O2 Delivery Mechanical Ventilator Mechanical Ventilator Mechanical Ventilator O2 Flow Rate 75.00 75.00 FiO2 75 11/02/22 11/02/22 11/02/22 11/02/22 05:04 06:00 07:00 07:00 Pulse 67 67 70 Resp 15 16 B/P (MAP) 157/61 (93) 131/47 (75) Pulse Ox 98 98 O2 Delivery Mechanical Ventilator Mechanical Ventilator Mechanical Ventilator O2 Flow Rate 80.00 80.00 80.00 11/02/22 11/02/22 11/02/22 11/02/22 07:51 07:54 07:55 07:56 Temp 37.0 Pulse 65 67 67 Resp 16 B/P (MAP) 157/61 157/61 Pulse Ox 97 FiO2 80 11/02/22 11/02/22 11/02/22 11/02/22 08:00 08:00 09:00 10:46 Pulse 66 74 Resp 16 16 B/P (MAP) 121/42 (68) 155/55 (88) Pulse Ox 93 96 O2 Delivery Mechanical Ventilator Mechanical Ventilator Mechanical Ventilator Mechanical Ventilator O2 Flow Rate 80.00 80.00 75.00 FiO2 80 11/02/22 00:00 Intake Total 1540 ml Output Total 3800 ml Balance -2260 ml Weight (Pounds): 278 Weight (Ounces): 9.6 Weight (Calculated Kilograms): 126.211394 Constitutional: other (Intubated and on mech vent) Respiratory: No accessory muscle use, No respiratory distress; other (fair air entry, basal coarse and fine crackles) Cardiovascular: regular rate-rhythm; No JVD; S1 and S2 Gastrointestional: No tender; soft, round, distended; No guarding; audible bowel sounds Extremities: swelling (mild, bilateral leg edema) Neurologic/Psychiatric: other (moves extremities) Skin: No rash on exposed areas, No ulcerations on exposed areas; other (dressing to LLE which is D&I) Results/Procedures: Labs Laboratory Tests 11/01/22 13:50: White Blood Count 9.8, Red Blood Count 3.99L, Hemoglobin 11.6L, Hematocrit 37L, Mean Corpuscular Volume 92, Mean Corpuscular Hemoglobin 29, Mean Corpuscular Hemoglobin Concent 32, Red Cell Distribution Width 15.0H, Platelet Count 197, Mean Platelet Volume 10.3, Immature Granulocyte % (Auto) 1, Neutrophils (%) (Auto) 86H, Lymphocytes (%) (Auto) 6L, Monocytes (%) (Auto) 6, Eosinophils (%) (Auto) 1, Basophils (%) (Auto) 0, Neutrophils # (Auto) 8.4H, Lymphocytes # (Auto) 0.5L, Monocytes # (Auto) 0.6, Eosinophils # (Auto) 0.1, Basophils # (Auto) 0.0, Immature Granulocyte # (Auto) 0.1, Neutrophils % (Manual) 73, Lymphocytes % (Manual) 8, Monocytes % (Manual) 6, Eosinophils % (Manual) 1, Basophils % (Manual) 1, Band Neutrophils 11, Toxic Granulation 1+, Polychromasia SLIGHT, Basophilic Stippling SLIGHT, Anisocytosis SLIGHT, Sodium Level 143, Potassium Level 6.0H, Chloride Level 106, Carbon Dioxide Level 24, Anion Gap 13, Blood Urea Nitrogen 25H, Creatinine 1.10, Estimat Glomerular Filtration Rate 73, BUN/Creatinine Ratio 23, Glucose Level 169H, Calcium Level 9.1, Triglycerides Level 158H 11/01/22 14:51: Blood Gas Puncture Site RT RADIAL, Blood Gas Patient Temperature 36.1, Arterial Blood pH 7.38, Arterial Blood Partial Pressure CO2 47H, Arterial Blood Partial Pressure O2 80, Arterial Blood HCO3 27, Arterial Blood Total CO2 28.7, Arterial Blood Oxygen Saturation 97, Arterial Blood Base Excess 2.4, Maurisio Test YES-POS, Blood Gas Ventilator Setting NO, Blood Gas Inspired Oxygen 65% 11/01/22 18:14: Glucometer 163H 11/02/22 00:04: Glucometer 141H 11/02/22 01:05: Blood Gas Puncture Site RIGHT RADIAL, Blood Gas Patient Temperature 37, Arterial Blood pH 7.37, Arterial Blood Partial Pressure CO2 50H, Arterial Blood Partial Pressure O2 74L, Arterial Blood HCO3 28H, Arterial Blood Total CO2 29.8, Arterial Blood Oxygen Saturation 95, Arterial Blood Base Excess 3.4H, Maurisio Test YES-POS, Blood Gas Ventilator Setting YES, Blood Gas Inspired Oxygen NA 11/02/22 03:55: Blood Gas Puncture Site RIGHT RADIAL, Blood Gas Patient Temperature 98.6, Arterial Blood pH 7.38, Arterial Blood Partial Pressure CO2 50H, Arterial Blood Partial Pressure O2 69L, Arterial Blood HCO3 29H, Arterial Blood Total CO2 30.4, Arterial Blood Oxygen Saturation 94, Arterial Blood Base Excess 4.1H, Maurisio Test YES-POS, Blood Gas Ventilator Setting YES, Blood Gas Inspired Oxygen NA 11/02/22 04:11: White Blood Count 20.1H, Red Blood Count 3.77L, Hemoglobin 11.7L, Hematocrit 35L , Mean Corpuscular Volume 92, Mean Corpuscular Hemoglobin 31, Mean Corpuscular Hemoglobin Concent 34, Red Cell Distribution Width 16.0H, Platelet Count 306, Mean Platelet Volume 9.6, Immature Granulocyte % (Auto) 14, Neutrophils (%) (Auto) 77H, Lymphocytes (%) (Auto) 5L, Monocytes (%) (Auto) 4, Eosinophils (%) (Auto) 0, Basophils (%) (Auto) 1, Neutrophils # (Auto) 15.4H, Lymphocytes # (Auto) 1.0, Monocytes # (Auto) 0.7, Eosinophils # (Auto) 0.0, Basophils # (Auto) 0.1, Immature Granulocyte # (Auto) 2.9H, Sodium Level 137, Potassium Level 5.3H, Chloride Level 103, Carbon Dioxide Level 22, Anion Gap 12, Blood Urea Nitrogen 45H, Creatinine 1.09, Estimat Glomerular Filtration Rate 73, BUN/Creatinine Ratio 41, Glucose Level 166H, Calcium Level 8.8, Corrected Calcium 9.7, Phosphorus Level 4.3, Magnesium Level 2.2, Total Bilirubin 0.3, Aspartate Amino Transf (AST/SGOT) 20, Alanine Aminotransferase (ALT/SGPT) 22, Alkaline Phosphatase 53, Total Protein 5.3L, Albumin 2.9L Microbiology 10/29/22 Urine Culture - Final, Complete NO GROWTH 10/29/22 MRSA Screen - Final, Complete MRSA not isolated 10/28/22 Blood Culture - Preliminary, Resulted No growth Laboratory Tests 11/01/22 03:48 11/01/22 13:50 11/02/22 04:11 A/P: Assessment: Acute on chronic respiratory failure (multifactorial, see below) - worsening, now on mech vent Obesity with hypoventilation syndrome and SIDNEY Acute on chronic exacerbation of COPD - due to pneumonia - 2 weeks post COVID Mild troponin elevation - probably type 2 [place] due to transient hypoxia H/O seizures Coronary artery disease - history of CABG 6 done in 2012, has been followed by Dr. Adkins. History of multiple catheterizations and recalls having small vessel disease for which conservative management has been advised in the past per previous notes Acute on chronic systolic and diastolic congestive heart failure - Echo May [address] Duke showing left ventricular systolic function mildly reduced, EF 40-45%, grade 1 diastolic dysfunction. Dilated left atrium, pulmonary artery pressure of 25-30 mmHg. - Echo 10/29/22: LVEF 50-55%, grade 2 diastolic dysfunction, mild LAE Chronic kidney disease stage 3 Hypertension, uncontrolled Hyperlipidemia - statin tx COPD Status post lumbar surgery done in May 2019, prolonged and complex recovery Diabetes mellitus Obesity History of tobaccoism Plan: * Complex management due to worsening resp failure * iv diuretics to treat decomp CHF * Continue DAPT due to h/o CAD * Continue DVT prophylaxis due to considerable risk of DVT * Management of pneumonia / ac exac of COPD is with the Med svce * Monitor labs closely JONATHAN EPPERSON MD [facility] Nov 02, 2022 11:03
[2022-11-02] MEDS: fentaNYL DRIP PRE-MIX 250 ML IV SCH ×2 (11:43→22:56)
[2022-11-02] MEDS: hydrALAZINE (APESOLINE) 20 MG/ML VIAL IV PRN ×2 (12:13→16:34)
--- NOTE | 2022-11-02 12:57 | Physical Therapy Progress Note ---
Therapy Progress Note Pt remains sedated and on ventilator. PT will continue to monitor and will begin treatment as patients ability to actively particpate improves. JOSÉ LUIS PINTO PT Nov 02, 2022 12:57
[2022-11-02 14:57] VITALS: BP 167/65
[2022-11-02] MEDS: FUROSEMIDE 40 MG/4 ML INJ (LASIX) IVP SCH (16:34)
[2022-11-02 19:59] VITALS: BP 148/61
[2022-11-02 22:21] VITALS: BP 164/67
[2022-11-03] MEDS: hydrALAZINE (APESOLINE) 20 MG/ML VIAL IV PRN (00:14)
[2022-11-03] MEDS: NS IV 1000 ML 1,000 ML IV SCH ×2 (01:21→21:23)
[2022-11-03] MEDS: CEFEPIME 1,000 MG/NS 50 ML IVPB IV SCH ×4 (02:04→09:34)
[2022-11-03] MEDS: PROPOFOL DRIP (ICU) 100 ML IV SCH ×6 (02:11→21:55)
[2022-11-03 02:24] VITALS: BP 177/76
[2022-11-03] MEDS: RT-ALBUTEROL/IPRATROPIUM 3 ML (DUONEB) VIAL INH SCH ×5 (02:24→22:44)
[2022-11-03 03:34] LABS: ABG BASE EXCESS 6.2 MMOL/L (-2.5-2.5); ABG OXYGEN SATURATION 91 % (94-100); ABG PCO2 45 MMHG (35-45); ABG PH 7.44 (7.37-7.43); ABG PO2 57 MMHG (79-93)
[2022-11-03 03:35] LABS: BASOPHILS % (AUTO) 0 % (0-10); EOSINOPHILS # (AUTO) 0.3 10^3/uL (0.0-0.3); EOSINOPHILS % (AUTO) 4 % (0-10); HEMATOCRIT 32 % (40-54); HEMOGLOBIN 10.4 g/dL (13.3-17.7); LYMPHOCYTES # (AUTO) 0.9 10^3/uL (1.0-4.0); LYMPHOCYTES % (AUTO) 12 % (12-44); MEAN CORPUSCULAR HEMOGLOBIN 30 pg (25-34); MEAN CORPUSCULAR HGB CONC 33 g/dL (32-36); MEAN CORPUSCULAR VOLUME 90 fL (80-99); MEAN PLATELET VOLUME 10.3 fL (9.0-12.2); MONOCYTES # (AUTO) 0.5 10^3/uL (0.0-1.0); MONOCYTES % (AUTO) 7 % (0-12); NEUTROPHILS # (AUTO) 5.9 10^3/uL (1.8-7.8); NEUTROPHILS % (AUTO) 77 % (42-75); PLATELET COUNT 220 10^3/uL (130-400); WHITE BLOOD COUNT 7.6 10^3/uL (4.3-11.0)
[2022-11-03 03:36] LABS: ALLENS TEST YES-POS; PATIENT TEMP 36.2; VENTILATOR YES
[2022-11-03] MEDS: NOREPINEPHRINE 8 MG/250 ML 250 ML IV SCH ×3 (03:37→23:11)
[2022-11-03 03:46] LABS: ALBUMIN 2.6 GM/DL (3.2-4.5); POTASSIUM 3.3 MMOL/L (3.6-5.0)
[2022-11-03 03:49] LABS: TOTAL PROTEIN 6.4 GM/DL (6.4-8.2)
[2022-11-03 03:51] LABS: BILIRUBIN,TOTAL 0.8 MG/DL (0.1-1.0)
[2022-11-03 03:52] LABS: CREATININE SERUM 0.92 MG/DL (0.60-1.30); PHOSPHORUS 3.1 MG/DL (2.3-4.7)
[2022-11-03 03:55] LABS: MAGNESIUM 1.2 MG/DL (1.6-2.4)
[2022-11-03] MEDS: inSUlin ASPART (NovoLOG) 1 UNIT/0.01 ML (CHARGE PER UNIT) SC SCH ×4 (04:54→23:56)
[2022-11-03] MEDS: KCL 20 MEQ TAB (K-DUR) PO SCH (05:00)
[2022-11-03] MEDS: POTASSIUM CL 10MEQ/50ML IVPB 50 ML IV SCH ×5 (05:00→08:29)
[2022-11-03] MEDS: MAGNESIUM 1 GM/100 ML IVPB 100 ML IV SCH ×5 (05:00→08:30)
[2022-11-03] MEDS: LABETALOL HCL 20 MG/4 ML VIAL IV PRN (05:52)
[2022-11-03] MEDS: FUROSEMIDE 40 MG/4 ML INJ (LASIX) IVP SCH ×2 (06:07→16:53)
--- NOTE | 2022-11-03 06:15 | Progress Note ---
Subjective Date Seen by a Provider: Nov 03, 2022 Time Seen by a Provider: 11:30 Subjective/Events-last exam Still intubated No pain reported Labs and meds reviewed Did not tolerate wean Objective Exam Last Set of Vital Signs Vital Signs Date Time Temp Pulse Resp B/P (MAP) Pulse Ox O2 Delivery O2 Flow Rate FiO2 11/03/22 05:16 68 16 181/72 (108) 96 Mechanical Ventilator 65.00 11/03/22 04:00 36.2 11/03/22 04:00 80 Capillary Refill : Less Than 3 Seconds I&O Intake and Output 11/03/22 00:00 Intake Total 2550 ml Output Total 5725 ml Balance -3175 ml IV Total 2350 ml Tube Feeding 90 ml Other 110 ml Output Urine Total 5325 ml Gastric Drainage Total 400 ml General: Other (Sedated and intubated) Lungs: Clear to Auscultation Heart: Regular Rate Skin: No Breakdown Results Lab Laboratory Tests 11/02/22 17:39: Glucometer 144H 11/02/22 23:55: Glucometer 151H 11/03/22 03:19: White Blood Count 7.6, Red Blood Count 3.51L, Hemoglobin 10.4L, Hematocrit 32L, Mean Corpuscular Volume 90, Mean Corpuscular Hemoglobin 30, Mean Corpuscular Hemoglobin Concent 33, Red Cell Distribution Width 15.2H, Platelet Count 220, Mean Platelet Volume 10.3, Immature Granulocyte % (Auto) 0, Neutrophils (%) (Auto) 77H, Lymphocytes (%) (Auto) 12, Monocytes (%) (Auto) 7, Eosinophils (%) (Auto) 4, Basophils (%) (Auto) 0, Neutrophils # (Auto) 5.9, Lymphocytes # (Auto) 0.9L, Monocytes # (Auto) 0.5, Eosinophils # (Auto) 0.3, Basophils # (Auto) 0.0, Immature Granulocyte # (Auto) 0.0, Sodium Level 140, Potassium Level 3.3L, Chloride Level 104, Carbon Dioxide Level 22, Anion Gap 14, Blood Urea Nitrogen 21H, Creatinine 0.92, Estimat Glomerular Filtration Rate 90, BUN/Creatinine R atio 23, Glucose Level 131H, Calcium Level 8.0L, Corrected Calcium 9.1, Phosphorus Level 3.1, Magnesium Level 1.2L, Total Bilirubin 0.8, Aspartate Amino Transf (AST/SGOT) 12, Alanine Aminotransferase (ALT/SGPT) 6, Alkaline Phosphatase 52, Total Protein 6.4, Albumin 2.6L, Triglycerides Level 689#H 11/03/22 03:25: Blood Gas Puncture Site LEFT RADIAL, Blood Gas Patient Temperature 36.2, Arterial Blood pH 7.44H, Arterial Blood Partial Pressure CO2 45, Arterial Blood Partial Pressure O2 57L, Arterial Blood HCO3 31H, Arterial Blood Total CO2 32.0H , Arterial Blood Oxygen Saturation 91L, Arterial Blood Base Excess 6.2H, Maurisio Test YES-POS, Blood Gas Ventilator Setting YES, Blood Gas Inspired Oxygen NA Microbiology 10/29/22 Urine Culture - Final, Complete NO GROWTH 10/29/22 MRSA Screen - Final, Complete MRSA not isolated 10/28/22 Blood Culture - Preliminary, Resulted No growth Assessment/Plan Assessment/Plan Assess & Plan/Chief Complaint 1. Acute respiratory failure: failed biPAP now intubated 11/01/22 2. UTI: Continue cefepime regimen. 3. Metabolic encephalopathy: Continue gentle hydration and correction of acute respiratory failure. 4. DVT prophylaxis: Continue Lovenox therapy. 5. Elevated troponin: Consult cardiology. Plan: Supportive care Vent management Diagnosis/Problems Diagnosis/Problems (1) Respiratory failure, acute and chronic (2) Acute on chronic diastolic heart failure with preserved ejection fraction Status: Acute (3) Noncompliance Status: Chronic (4) Hypertension Status: Chronic (5) PVD (peripheral vascular disease) Status: Chronic Clinical Quality Measures Admission Status Admission Dx ICU Dr Mcclure consult BiPAP Monitor closely JASPER LONG DO Nov 03, 2022 06:15
[2022-11-03 06:52] VITALS: BP 120/56
[2022-11-03] MEDS: DOCUSATE SODIUM 100 MG (COLACE) CAP PO SCH ×2 (07:47→20:46)
[2022-11-03] MEDS: ASPIRIN 81 MG CHEW (CHILDREN'S ASA) PO SCH (09:33)
[2022-11-03] MEDS: CLOPIDOGREL 75 MG (PLAVIX) TABLET PO SCH (09:33)
[2022-11-03] MEDS: amLODIPine 5 MG (NORVASC) TAB PO SCH (09:33)
[2022-11-03] MEDS: meTOprolol TARTRATE 25 MG (LOPRESSOR) TABLET PO SCH ×2 (09:33→20:46)
[2022-11-03] MEDS: SENNOSIDES 8.6 MG (SENOKOT) TAB PO SCH ×2 (09:33→21:23)
--- NOTE | 2022-11-03 09:42 | Diagnostic Imaging Report ---
EXAMINATION: Chest 1 view HISTORY: Ventilated COMPARISON: 11/02/2022 FINDINGS: Endotracheal tube tip terminates 5 cm above the andi. Right upper extremity peripherally inserted central venous catheter tip terminates in the superior vena cava. Median sternotomy wires are aligned. There are moderate bilateral airspace opacities. There are small pleural effusions. No pneumothorax. Heart is enlarged. IMPRESSION: 1. Unchanged moderate bilateral airspace opacities favored to represent edema. Dictated by: Dictated on workstation # [id number]
[2022-11-03] MEDS: ENOXAPARIN 40 MG/0.4 ML (LOVENOX) SYR SC SCH ×2 (10:04→22:20)
--- NOTE | 2022-11-03 10:12 | Tele-ICU Progress Note ---
Progress Note video rounds completed 71 y/o male with a respiratory failure Had limbar wound debridement recently Now intubated Vent: 16/500/80%/5 ABG today: 7.44/45/57/31 PE: sedated on vent HR: 65 NSR BP: 103/58 Sat: 93% IMP: respiratory failure PLAN: wean as feasble but still on 80% FIO2 Focused Exam Height, Weight, BMI Height: 5'10.00" Weight: 278lbs. 9.6oz. 126.456107cn; 39.73 BMI Method:Stated Labs Laboratory Tests 11/03/22 03:19 Results Labs Labs Laboratory Tests 11/02/22 17:39: Glucometer 144H 11/02/22 23:55: Glucometer 151H 11/03/22 03:19: White Blood Count 7.6, Red Blood Count 3.51L, Hemoglobin 10.4L, Hematocrit 32L, Mean Corpuscular Volume 90, Mean Corpuscular Hemoglobin 30, Mean Corpuscular Hemoglobin Concent 33, Red Cell Distribution Width 15.2H, Platelet Count 220, Mean Platelet Volume 10.3, Immature Granulocyte % (Auto) 0, Neutrophils (%) (Auto) 77H, Lymphocytes (%) (Auto) 12, Monocytes (%) (Auto) 7, Eosinophils (%) (Auto) 4, Basophils (%) (Auto) 0, Neutrophils # (Auto) 5.9, Lymphocytes # (Auto) 0.9L, Monocytes # (Auto) 0.5, Eosinophils # (Auto) 0.3, Basophils # (Auto) 0.0, Immature Granulocyte # (Auto) 0.0, Sodium Level 140, Potassium Level 3.3L, Chloride Level 104, Carbon Dioxide Level 22, Anion Gap 14, Blood Urea Nitrogen 21H, Creatinine 0.92, Estimat Glomerular Filtration Rate 90, BUN/Creatinine Ratio 23, Glucose Level 131H, Calcium Level 8.0L, Corrected Calcium 9.1, Phosphorus Level 3.1, Magnesium Level 1.2L, Total Bilirubin 0.8, Aspartate Amino Transf (AST/SGOT) 12, Alanine Aminotransferase (ALT/SGPT) 6, Alkaline Phosphatase 52, Total Protein 6.4, Albumin 2.6L, Triglycerides Level 689#H 11/03/22 03:25: Blood Gas Puncture Site LEFT RADIAL, Blood Gas Patient Temperature 36.2, Arterial Blood pH 7.44H, Arterial Blood Partial Pressure CO2 45, Arterial Blood Partial Pressure O2 57L, Arterial Blood HCO3 31H, Arterial Blood Total CO2 32.0H , Arterial Blood Oxygen Saturation 91L, Arterial Blood Base Excess 6.2H, Maurisio Test YES-POS, Blood Gas Ventilator Setting YES, Blood Gas Inspired Oxygen NA Microbiology 10/29/22 Urine Culture - Final, Complete NO GROWTH 10/29/22 MRSA Screen - Final, Complete MRSA not isolated 10/28/22 Blood Culture - Preliminary, Resulted No growth Results Results/Procedures Labs Laboratory Tests 11/01/22 13:50 11/02/22 04:11 11/03/22 03:19 Patient resulted labs reviewed. SHANNAN DOAN MD Nov 03, 2022 10:12
[2022-11-03] MEDS: fentaNYL DRIP PRE-MIX 250 ML IV SCH ×2 (10:59→23:10)
[2022-11-03 11:12] VITALS: BP 130/56
--- NOTE | 2022-11-03 13:46 | Progress Note - Cardiology ---
Cardiology SOAP Progress Note Subjective: Intubated, on mech vent, unable to communicate Objective: I&O/Vital Signs 11/03/22 11/03/22 11/03/22 11/03/22 02:00 02:11 02:24 02:56 Pulse 68 67 67 67 Resp 16 16 B/P (MAP) 170/74 (106) 170/74 177/76 Pulse Ox 94 93 O2 Delivery Mechanical Ventilator O2 Flow Rate 65.00 FiO2 65 11/03/22 11/03/22 11/03/22 11/03/22 03:00 03:37 03:57 04:00 Pulse 73 67 67 Resp 16 B/P (MAP) 144/70 (94) 177/76 177/76 Pulse Ox 92 97 O2 Delivery Mechanical Ventilator Mechanical Ventilator O2 Flow Rate 65.00 FiO2 80 11/03/22 11/03/22 11/03/22 11/03/22 04:00 05:00 05:00 05:16 Temp 36.2 Pulse 69 69 75 68 Resp 16 16 16 16 B/P (MAP) 176/78 (110) 199/74 (115) 181/72 (108) Pulse Ox 96 97 95 96 O2 Delivery Mechanical Ventilator Mechanical Ventilator Mechanical Ventilator O2 Flow Rate 80.00 65.00 65.00 11/03/22 11/03/22 11/03/22 11/03/22 06:00 06:52 07:00 07:00 Pulse 64 70 69 69 Resp 16 16 16 B/P (MAP) 171/68 (102) 110/52 (71) Pulse Ox 97 92 94 O2 Delivery Mechanical Ventilator Mechanical Ventilator O2 Flow Rate 65.00 80.00 FiO2 60 11/03/22 11/03/22 11/03/22 11/03/22 07:05 07:45 08:00 08:00 Temp 36.4 Pulse 70 70 70 Resp 16 B/P (MAP) 120/56 120/56 101/50 (67) Pulse Ox 95 O2 Delivery Mechanical Ventilator O2 Flow Rate 80.00 11/03/22 11/03/22 11/03/22 11/03/22 08:00 08:49 09:00 10:00 Pulse 67 67 Resp 16 16 B/P (MAP) 119/55 (76) 109/50 (69) Pulse Ox 97 97 95 O2 Delivery Mechanical Ventilator Mechanical Ventilator Mechanical Ventilator Mechanical Ventilator O2 Flow Rate 80.00 80.00 80.00 FiO2 80 11/03/22 11/03/22 11/03/22 11/03/22 10:03 10:59 11:00 11:27 Pulse 67 67 63 67 Resp 16 B/P (MAP) 119/55 119/55 130/56 (80) 119/55 Pulse Ox 96 O2 Delivery Mechanical Ventilator O2 Flow Rate 80.00 11/03/22 11/03/22 11/03/22 11:47 11:49 12:00 Pulse 62 Resp 16 B/P (MAP) 138/59 (85) Pulse Ox 95 95 O2 Delivery Mechanical Ventilator Mechanical Ventilator Mechanical Ventilator O2 Flow Rate 75.00 75.00 FiO2 75 11/03/22 00:00 Intake Total 1250 ml Output Total 4200 ml Balance -2950 ml Weight (Pounds): 278 Weight (Ounces): 9.6 Weight (Calculated Kilograms): 126.494739 Constitutional: other (Intubated and on mech vent) Respiratory: No accessory muscle use, No respiratory distress; other (fair air entry, basal coarse and fine crackles) Cardiovascular: regular rate-rhythm; No JVD; S1 and S2 Gastrointestional: No tender; soft, round, distended; No guarding; audible bowel sounds Extremities: swelling (mild, bilateral leg edema) Neurologic/Psychiatric: other (moves extremities) Skin: No rash on exposed areas, No ulcerations on exposed areas; other (d ressing to LLE which is D&I) Results/Procedures: Labs Laboratory Tests 11/02/22 17:39: Glucometer 144H 11/02/22 23:55: Glucometer 151H 11/03/22 03:19: White Blood Count 7.6, Red Blood Count 3.51L, Hemoglobin 10.4L, Hematocrit 32L, Mean Corpuscular Volume 90, Mean Corpuscular Hemoglobin 30, Mean Corpuscular Hemoglobin Concent 33, Red Cell Distribution Width 15.2H, Platelet Count 220, Mean Platelet Volume 10.3, Immature Granulocyte % (Auto) 0, Neutrophils (%) (Auto) 77H, Lymphocytes (%) (Auto) 12, Monocytes (%) (Auto) 7, Eosinophils (%) (Auto) 4, Basophils (%) (Auto) 0, Neutrophils # (Auto) 5.9, Lymphocytes # (Auto) 0.9L, Monocytes # (Auto) 0.5, Eosinophils # (Auto) 0.3, Basophils # (Auto) 0.0, Immature Granulocyte # (Auto) 0.0, Sodium Level 140, Potassium Level 3.3L, Chloride Level 104, Carbon Dioxide Level 22, Anion Gap 14, Blood Urea Nitrogen 21H, Creatinine 0.92, Estimat Glomerular Filtration Rate 90, BUN/Creatinine Ratio 23, Glucose Level 131H, Calcium Level 8.0L, Corrected Calcium 9.1, Phosphorus Level 3.1, Magnesium Level 1.2L, Total Bilirubin 0.8, Aspartate Amino Transf (AST/SGOT) 12, Alanine Aminotransferase (ALT/SGPT) 6, Alkaline Phosphatase 52, Total Protein 6.4, Albumin 2.6L, Triglycerides Level 689#H 11/03/22 03:25: Blood Gas Puncture Site LEFT RADIAL, Blood Gas Patient Temperature 36.2, Arterial Blood pH 7.44H, Arterial Blood Partial Pressure CO2 45, Arterial Blood Partial Pressure O2 57L, Arterial Blood HCO3 31H, Arterial Blood Total CO2 32.0H , Arterial Blood Oxygen Saturation 91L, Arterial Blood Base Excess 6.2H, Maurisio Test YES-POS, Blood Gas Ventilator Setting YES, Blood Gas Inspired Oxygen NA 11/03/22 11:52: Glucometer 152H Microbiology 10/29/22 Urine Culture - Final, Complete NO GROWTH 10/29/22 MRSA Screen - Final, Complete MRSA not isolated 10/28/22 Blood Culture - Preliminary, Resulted No growth Laboratory Tests 11/01/22 13:50 11/02/22 04:11 11/03/22 03:19 A/P: Assessment: Acute on chronic respiratory failure (multifactorial, see below) - worsening[facility] Obesity with hypoventilation syndrome and SIDNEY Acute on chronic exacerbation of COPD - due to pneumonia - 2 weeks post COVID Mild troponin elevation - probably type 2 [place] due to transient hypoxia H/O seizures Coronary artery disease - history of CABG 6 done in 2012, has been followed by Dr. Adkins. History of multiple catheterizations and recalls having small vessel disease for which conservative management has been advised in the past per previous notes Acute on chronic systolic and diastolic congestive heart failure - Echo May [address] Duke showing left ventricular systolic function mildly reduced, EF 40-45%, grade 1 diastolic dysfunction. Dilated left atrium, pulmonary artery pressure of 25-30 mmHg. - Echo 10/29/22: LVEF 50-55%, grade 2 diastolic dysfunction, mild LAE Chronic kidney disease stage 3 Hypertension, uncontrolled Hyperlipidemia - statin tx COPD Status post lumbar surgery done in May 2019, prolonged and complex recovery Diabetes mellitus Obesity History of tobaccoism Plan: * Complex management due to worsening resp failure * iv diuretics to treat decomp CHF * Continue DAPT due to h/o CAD * Continue DVT prophylaxis due to considerable risk of DVT * Management of pneumonia / ac exac of COPD is with the Med svce * Lindsayish K * Monitor labs closely JONATHAN EPPERSON MD FACP FAC CCDS Nov 03, 2022 13:46
[2022-11-03] MEDS: DexMEDEtomidine 250 ML DRIP 250 ML IV SCH ×2 (13:50→23:56)
[2022-11-03 18:59] VITALS: BP 162/68
[2022-11-03 22:44] VITALS: BP 162/69
[2022-11-04 02:08] VITALS: BP 165/69
[2022-11-04] MEDS: RT-ALBUTEROL/IPRATROPIUM 3 ML (DUONEB) VIAL INH SCH ×6 (02:08→22:48)
[2022-11-04] MEDS: PROPOFOL DRIP (ICU) 100 ML IV SCH ×5 (02:27→18:54)
[2022-11-04 03:41] LABS: ABG BASE EXCESS 6.8 MMOL/L (-2.5-2.5); ABG OXYGEN SATURATION 90 % (94-100); ABG PCO2 46 MMHG (35-45); ABG PH 7.44 (7.37-7.43); ABG PO2 58 MMHG (79-93); ABG TCO2 32.6 MMOL/L (21.0-31.0); ALLENS TEST YES-POS
[2022-11-04 03:42] LABS: INSPIRED O2 75%; PATIENT TEMP 36.2; VENTILATOR YES
[2022-11-04 03:44] LABS: BASOPHILS % (AUTO) 0 % (0-10); EOSINOPHILS # (AUTO) 0.4 10^3/uL (0.0-0.3); EOSINOPHILS % (AUTO) 6 % (0-10); HEMATOCRIT 32 % (40-54); HEMOGLOBIN 10.6 g/dL (13.3-17.7); LYMPHOCYTES # (AUTO) 0.9 10^3/uL (1.0-4.0); LYMPHOCYTES % (AUTO) 12 % (12-44); MEAN CORPUSCULAR HEMOGLOBIN 30 pg (25-34); MEAN CORPUSCULAR HGB CONC 33 g/dL (32-36); MEAN CORPUSCULAR VOLUME 90 fL (80-99); MEAN PLATELET VOLUME 10.3 fL (9.0-12.2); MONOCYTES # (AUTO) 0.5 10^3/uL (0.0-1.0); MONOCYTES % (AUTO) 7 % (0-12); NEUTROPHILS # (AUTO) 5.4 10^3/uL (1.8-7.8); NEUTROPHILS % (AUTO) 74 % (42-75); PLATELET COUNT 245 10^3/uL (130-400); WHITE BLOOD COUNT 7.3 10^3/uL (4.3-11.0)
[2022-11-04 03:58] LABS: ALBUMIN 2.7 GM/DL (3.2-4.5); BILIRUBIN,TOTAL 0.9 MG/DL (0.1-1.0); CALCIUM 8.7 MG/DL (8.5-10.1); CREATININE SERUM 1.14 MG/DL (0.60-1.30); MAGNESIUM 1.8 MG/DL (1.6-2.4); PHOSPHORUS 3.8 MG/DL (2.3-4.7); POTASSIUM 3.5 MMOL/L (3.6-5.0); TOTAL PROTEIN 6.9 GM/DL (6.4-8.2)
[2022-11-04] MEDS: KCL 20 MEQ TAB (K-DUR) PO SCH (04:19)
[2022-11-04] MEDS: MAGNESIUM 1 GM/100 ML IVPB 100 ML IV SCH (04:19)
[2022-11-04] MEDS: POTASSIUM CL 10MEQ/50ML IVPB 50 ML IV SCH ×3 (04:21→05:27)
[2022-11-04] MEDS: inSUlin ASPART (NovoLOG) 1 UNIT/0.01 ML (CHARGE PER UNIT) SC SCH ×3 (04:26→17:58)
[2022-11-04] MEDS: FUROSEMIDE 40 MG/4 ML INJ (LASIX) IVP SCH ×2 (06:12→16:59)
--- NOTE | 2022-11-04 06:54 | Occ Therapy Progress Note ---
Therapy Progress Note Pt currently intubated. OT to monitor pt's status then will initiate treatment when pt is medically stable and able to actively participate in skilled therapy. AMANDA WEINER Nov 04, 2022 06:53
[2022-11-04 06:59] VITALS: BP 125/60
--- NOTE | 2022-11-04 07:45 | Physical Therapy Progress Note ---
Therapy Progress Note Pt remains sedated and on ventilator. PT will continue to monitor and will begin treatment as patients ability to actively particpate improves. OTIS BALDWIN PT Nov 04, 2022 07:45
[2022-11-04] MEDS: CLOPIDOGREL 75 MG (PLAVIX) TABLET PO SCH (08:03)
[2022-11-04] MEDS: meTOprolol TARTRATE 25 MG (LOPRESSOR) TABLET PO SCH ×2 (08:03→20:30)
[2022-11-04] MEDS: SENNOSIDES 8.6 MG (SENOKOT) TAB PO SCH ×2 (08:03→20:30)
[2022-11-04] MEDS: PANTOPRAZOLE 40 MG (PROTONIX) VIAL IV SCH (08:03)
[2022-11-04] MEDS: DOCUSATE SODIUM 100 MG (COLACE) CAP PO SCH (08:03)
[2022-11-04] MEDS: amLODIPine 5 MG (NORVASC) TAB PO SCH (08:03)
[2022-11-04] MEDS: ASPIRIN 81 MG CHEW (CHILDREN'S ASA) PO SCH (08:04)
[2022-11-04] MEDS: DOCUSATE SODIUM 10 MG/ML 10 ML UDC (COLACE) PO SCH ×2 (09:03→20:30)
[2022-11-04] MEDS: CEFDINIR 300 MG (OMNICEF) CAP PO SCH ×2 (09:03→20:30)
[2022-11-04] MEDS: NOREPINEPHRINE 8 MG/250 ML 250 ML IV SCH ×2 (09:03→19:40)
--- NOTE | 2022-11-04 09:03 | Diagnostic Imaging Report ---
INDICATION: Shortness of breath. COMPARISON: 11/03/2022. FINDINGS: There is cardiomegaly. There are bilateral pulmonary infiltrates. There is a right pleural effusion. There is no pneumothorax. There has been previous median sternotomy. An endotracheal tube is in place. Some venous congestion cannot be excluded. IMPRESSION: Cardiomegaly and bilateral pulmonary infiltrates with a right pleural effusion. Some underlying central pulmonary venous congestion cannot be excluded. Recommend clinical correlation. Dictated by: Dictated on workstation # [id number]
--- NOTE | 2022-11-04 09:36 | Tele-ICU Progress Note ---
Subjective Date Seen by a Provider: Nov 04, 2022 Time Seen by a Provider: 14:37 Subjective/Events-last exam (Tele-ICU Physician , consultation) Available chart/ vitals / labs / Images reviewed H&P is from ER notes Patient's information available about PMH, allergy reviewed in EMR. ROS as per chart and RN report Video assessment done using teleICU camera, rest of exam as per RN Discussed with RN. HE is admitted with acute respiratory distress requiring mechanical ventilation. He has a history of COPD and congestive heart failure. Chest x-ray showing cardiomegaly and fluid overload. Today this a.m. he has FiO2 of 85% on mechanical ventilation and PEEP of 8. At this time I instructed the respiratory therapist to increase PEEP to 12 and decrease FiO2 as tolerated. He is already getting Lasix 40 mg IV push twice daily. His a peak pressures today is 40 on mechanical ventilation. Impression 1. Acute hypoxic respiratory failure 2. Acute pulmonary edema 3. COPD exacerbation. 4. Hypertension uncontrolled 5. Chronic kidney disease stage III 6. Obesity 7. Diabetes mellitus type 2. Recommendations 1. We will increase PEEP to 12 and decrease FiO2 as tolerated 2. Continue IV Lasix per cardiology 3. Monitor electrolytes renal blood gases. 4. Control of blood pressure per cardiology 5. Antibiotics and diabetes management per primary care 6. DVT prophylaxis and ulcer prophylaxis. Sepsis Event Evaluation Height, Weight, BMI Height: 5'10.00" Weight: 278lbs. 9.6oz. 126.131197pm; 118.74 BMI Method:Stated Exam Exam Patient acknowledged, consented, and participated in this virtual visit which was conducted using real time audio/video Vital Signs Date Time Temp Pulse Resp B/P (MAP) Pulse Ox O2 Delivery O2 Flow Rate FiO2 11/04/22 09:03 69 125/56 11/04/22 09:00 66 16 125/56 (79) 95 Mechanical Ventilator 75.00 11/04/22 08:00 37.2 11/04/22 08:00 68 18 122/55 (77) 93 Mechanical Ventilator 75.00 11/04/22 07:48 92 Mechanical Ventilator 85 11/04/22 07:38 69 11/04/22 07:00 68 16 124/61 (82) 92 Mechanical Ventilator 75.00 11/04/22 06:59 67 16 91 85 11/04/22 06:35 77 127/75 11/04/22 06:27 77 127/75 11/04/22 06:00 77 22 127/75 (92) 92 Mechanical Ventilator 75.00 11/04/22 05:00 60 16 145/65 (91) 91 Mechanical Ventilator 75.00 11/04/22 05:00 75 16 91 11/04/22 04:00 92 Mechanical Ventilator 75 11/04/22 04:00 61 16 155/65 (95) 91 Mechanical Ventilator 75.00 11/04/22 03:56 59 165/69 11/04/22 03:10 59 165/69 11/04/22 03:00 63 16 155/64 (94) 91 Mechanical Ventilator 75.00 11/04/22 02:27 59 165/69 11/04/22 02:08 59 16 91 75 11/04/22 02:00 62 16 155/65 (95) 91 Mechanical Ventilator 75.00 11/04/22 01:55 59 165/69 11/04/22 01:00 63 11/04/22 00:19 36.0 56 16 153/59 (90) 92 Mechanical Ventilator 75.00 11/04/22 00:00 64 16 153/59 (90) 92 Mechanical Ventilator 75.00 11/03/22 23:59 91 Mechanical Ventilator 75 11/03/22 23:56 56 162/69 11/03/22 23:11 56 162/69 11/03/22 23:10 56 162/69 11/03/22 23:00 57 16 160/69 (99) 92 Mechanical Ventilator 75.00 11/03/22 22:44 56 16 92 75 11/03/22 22:00 56 16 158/67 (97) 92 Mechanical Ventilator 75.00 11/03/22 21:55 58 168/70 11/03/22 21:37 58 168/70 11/03/22 20:58 36.4 58 16 168/70 (102) 92 Mechanical Ventilator 75.00 11/03/22 20:00 57 16 168/70 (102) 93 Mechanical Ventilator 75.00 11/03/22 19:20 93 Mechanical Ventilator 75 11/03/22 19:00 55 16 158/67 (97) 93 Mechanical Ventilator 75.00 11/03/22 19:00 65 11/03/22 18:59 55 16 92 75 11/03/22 18:06 55 171/73 11/03/22 18:06 55 171/73 11/03/22 18:00 56 16 168/70 (102) 94 Mechanical Ventilator 75.00 11/03/22 17:37 55 171/73 11/03/22 17:00 55 16 171/73 (105) 95 Mechanical Ventilator 75.00 11/03/22 16:29 95 Mechanical Ventilator 75 11/03/22 16:00 58 16 149/66 (93) 94 Mechanical Ventilator 75.00 11/03/22 15:56 57 171/85 11/03/22 15:37 36.8 11/03/22 15:00 57 17 171/85 (113) 95 Mechanical Ventilator 75.00 11/03/22 14:11 61 138/59 11/03/22 14:00 61 138/59 11/03/22 14:00 60 16 160/67 (98) 96 Mechanical Ventilator 75.00 11/03/22 13:50 61 138/59 11/03/22 13:00 60 16 160/67 (98) 95 Mechanical Ventilator 75.00 11/03/22 13:00 61 11/03/22 12:00 62 16 138/59 (85) 95 Mechanical Ventilator 75.00 11/03/22 12:00 36.3 11/03/22 11:49 95 Mechanical Ventilator 75 11/03/22 11:47 Mechanical Ventilator 75.00 11/03/22 11:27 67 119/55 11/03/22 11:12 63 16 95 75 11/03/22 11:00 63 16 130/56 (80) 96 Mechanical Ventilator 80.00 11/03/22 10:59 67 119/55 11/03/22 10:03 67 119/55 11/03/22 10:00 67 16 109/50 (69) 95 Mechanical Ventilator 80.00 I & O 11/04/22 07:00 Intake Total 4230 ml Output Total 3740 ml Balance 490 ml Height & Weight Height: 5'10.00" Weight: 278lbs. 9.6oz. 126.498139yv; 118.74 BMI Method:Stated General Appearance: WD/WN, Chronically ill, Moderate Distress, Obese, Other (on BiPAP) Respiratory: No Accessory Muscle Use, No Respiratory Distress, Decreased Breath Sounds (diffuse), Rhonci Cardiovascular: Regular Rate, Rhythm Capillary Refill: Less Than 3 Seconds Gastrointestinal: normal bowel sounds, non tender, soft, other (mild distension) Extremity: No Pedal Edema, Pedal Edema Neurologic/Psychiatric: Alert, Disoriented Results Lab Laboratory Tests 11/03/22 03:19 11/04/22 03:29 Assessment/Plan Assessment/Plan as above Critical Care: Ventilator Management Time spent with patient (mins): 35 CHICHI DRISCOLL MD Nov 04, 2022 09:36
[2022-11-04 09:53] VITALS: BP 135/55
[2022-11-04] MEDS: fentaNYL DRIP PRE-MIX 250 ML IV SCH ×3 (10:40→23:00)
--- NOTE | 2022-11-04 10:45 | Progress Note ---
EMIR KAM 11/04/22 1045: Subjective Date Seen by a Provider: Nov 04, 2022 Time Seen by a Provider: 09:35 Subjective/Events-last exam Florentino Meehan is a 71 yo male admitted to the ICU for acute respiratory failure. The patient required intubation and mechanical ventilation on 11/01 and is still on ventilation. The patient's vital signs are stable on ventilation. Ventilator settings are Tidal Volume 500, Rate 16, PEEP 12.0, FiO2 85. Labs are remarkable for HGB 10.6, K 3.5, BUN 21, Albumin 2.7; ABG revealed pH 7.44, pCO2 46, pO2 57. CXR shows no changes to bilateral opacities. Patient is sedated and unable to provide further history. Review of Systems Unable to obtain due to patient's condition. Objective Exam Last Set of Vital Signs Vital Signs Date Time Temp Pulse Resp B/P (MAP) Pulse Ox O2 Delivery O2 Flow Rate FiO2 11/04/22 10:40 67 129/58 11/04/22 09:53 64 95 70 11/04/22 09:00 Mechanical Ventilator 75.00 11/04/22 08:00 37.2 Capillary Refill : Less Than 3 Seconds I&O Intake and Output 11/04/22 00:00 Intake Total 5180 ml Output Total 3790 ml Balance 1390 ml IV Total 4190 ml Tube Feeding 810 ml Other 180 ml Output Urine Total 3790 ml General: Other (Sedated. Intubated. On ventilator.) HEENT: Atraumatic Lungs: Other (Right sided inspiratory rhonchi. Diffuse expiratory wheezing.) Heart: Regular Rate, Normal S1, Normal S2, No Murmurs Extremities: Normal Pulses Skin: No Rashes Results Lab Laboratory Tests 11/03/22 11:52: Glucometer 152H 11/03/22 18:42: Glucometer 157H 11/03/22 23:55: Glucometer 142H 11/04/22 03:29: White Blood Count 7.3, Red Blood Count 3.54L, Hemoglobin 10.6L, Hematocrit 32L, Mean Corpuscular Volume 90, Mean Corpuscular Hemoglobin 30, Mean Corpuscular Hemoglobin Concent 33, Red Cell Distribution Width 15.1H, Platelet Count 245, Mean Platelet Volume 10.3, Immature Granulocyte % (Auto) 1, Neutrophils (%) (Auto) 74, Lymphocytes (%) (Auto) 12, Monocytes (%) (Auto) 7, Eosinophils (%) (Auto) 6, Basophils (%) (Auto) 0, Neutrophils # (Auto) 5.4, Lymphocytes # (Auto) 0.9L, Monocytes # (Auto) 0.5, Eosinophils # (Auto) 0.4H, Basophils # (Auto) 0.0, Immature Granulocyte # (Auto) 0.1, Sodium Level 137, Potassium Level 3.5L, Chloride Level 98, Carbon Dioxide Level 23, Anion Gap 16H, Blood Urea Nitrogen 23H, Creatinine 1.14, Estimat Glomerular Filtration Rate 70, BUN/Creatinine R atio 20, Glucose Level 164H, Calcium Level 8.7, Corrected Calcium 9.7, Phosphorus Level 3.8, Magnesium Level 1.8, Total Bilirubin 0.9, Aspartate Amino Transf (AST/SGOT) 14, Alanine Aminotransferase (ALT/SGPT) 10, Alkaline Phosphatase 54, Total Protein 6.9, Albumin 2.7L 11/04/22 03:32: Blood Gas Puncture Site RIGHT RADIAL, Blood Gas Patient Temperature 36.2, Arterial Blood pH 7.44H, Arterial Blood Partial Pressure CO2 46H, Arterial Blood Partial Pressure O2 58L, Arterial Blood HCO3 31H, Arterial Blood Total CO2 32.6H , Arterial Blood Oxygen Saturation 90L, Arterial Blood Base Excess 6.8H, Maurisio Test YES-POS, Blood Gas Ventilator Setting YES, Blood Gas Inspired Oxygen 75% Microbiology 10/29/22 Urine Culture - Final, Complete NO GROWTH 10/29/22 MRSA Screen - Final, Complete MRSA not isolated 10/28/22 Blood Culture - Final, Complete No growth Radiology Date of Exam:11/04/22 CHEST 1 VIEW, AP/PA ONLY IMPRESSION: Cardiomegaly and bilateral pulmonary infiltrates with a right pleural effusion. Some underlying central pulmonary venous congestion cannot be excluded. Recommend clinical correlation. Assessment/Plan Assessment/Plan Assess & Plan/Chief Complaint 1. Acute respiratory failure: Continue mechanical ventilation. Perform SBT. Continue monitoring respiratory status. 2. UTI: Continue cefepime regimen. 3. Metabolic encephalopathy: Continue gentle hydration and correction of acute respiratory failure. 4. DVT prophylaxis: Continue Lovenox therapy. 5. Elevated troponin: Consult cardiology. Consider placement at [facility]. Clinical Quality Measures Admission Status Admission Dx 1. Acute respiratory failure: Continue BiPAP. Monitor O2 saturation and respiratory status. 2. UTI: Continue vancomycin, cefepime regimen. 3. Metabolic encephalopathy: Continue gentle hydration and correction of acute respiratory failure. 4. DVT prophylaxis: Continue Lovenox therapy. 5. Elevated troponin: Consult cardiology. CINTIA LONG DO 11/05/22 0523: Supervisory-Addendum Brief Verification & Attestation Participated in pt care: history, MDM, physical Personally performed: exam, history, MDM, supervision of care Care discussed with: Medical Student Procedures: n/a Results interpretation: Verified all documentation Verification and Attestation of Medical Student E/M Service A medical student performed and documented this service in my presence. I reviewed and verified all information documented by the medical student and made modifications to such information, when appropriate. I personally performed the physical exam and medical decision making. Cintia oLng, Nov 05, 2022,05:23 EMIR KAM Nov 04, 2022 10:45 CINTIA LONG DO Nov 05, 2022 05:23
[2022-11-04] MEDS: ENOXAPARIN 40 MG/0.4 ML (LOVENOX) SYR SC SCH ×2 (11:15→22:03)
[2022-11-04] MEDS: DexMEDEtomidine 250 ML DRIP 250 ML IV SCH ×2 (12:04→22:03)
--- NOTE | 2022-11-04 12:26 | Progress Note - Cardiology ---
Cardiology SOAP Progress Note Subjective: Intubated, on mech vent, non-communicative Objective: I&O/Vital Signs 11/04/22 11/04/22 11/04/22 11/04/22 01:00 01:55 02:00 02:08 Pulse 63 59 62 59 Resp 16 16 B/P (MAP) 165/69 155/65 (95) Pulse Ox 91 91 O2 Delivery Mechanical Ventilator O2 Flow Rate 75.00 FiO2 75 11/04/22 11/04/22 11/04/22 11/04/22 02:27 03:00 03:10 03:56 Pulse 59 63 59 59 Resp 16 B/P (MAP) 165/69 155/64 (94) 165/69 165/69 Pulse Ox 91 O2 Delivery Mechanical Ventilator O2 Flow Rate 75.00 11/04/22 11/04/22 11/04/22 11/04/22 04:00 04:00 05:00 05:00 Pulse 61 75 60 Resp 16 16 16 B/P (MAP) 155/65 (95) 145/65 (91) Pulse Ox 91 92 91 91 O2 Delivery Mechanical Ventilator Mechanical Ventilator Mechanical Ventilator O2 Flow Rate 75.00 75.00 FiO2 75 11/04/22 11/04/22 11/04/22 11/04/22 06:00 06:27 06:35 06:59 Pulse 77 77 77 67 Resp 22 16 B/P (MAP) 127/75 (92) 127/75 127/75 Pulse Ox 92 91 O2 Delivery Mechanical Ventilator O2 Flow Rate 75.00 FiO2 85 11/04/22 11/04/22 11/04/22 11/04/22 07:00 07:38 07:48 08:00 Pulse 68 69 68 Resp 16 18 B/P (MAP) 124/61 (82) 122/55 (77) Pulse Ox 92 92 93 O2 Delivery Mechanical Ventilator Mechanical Ventilator Mechanical Ventilator O2 Flow Rate 75.00 75.00 FiO2 85 11/04/22 11/04/22 11/04/22 11/04/22 08:00 09:00 09:03 09:53 Temp 37.2 Pulse 66 69 67 Resp 16 64 B/P (MAP) 125/56 (79) 125/56 Pulse Ox 95 95 O2 Delivery Mechanical Ventilator O2 Flow Rate 75.00 FiO2 70 11/04/22 11/04/22 11/04/22 11/04/22 10:00 10:04 10:40 10:40 Pulse 64 67 67 71 Resp 16 B/P (MAP) 115/51 (72) 129/58 129/58 116/54 Pulse Ox 95 O2 Delivery Mechanical Ventilator O2 Flow Rate 75.00 11/04/22 11/04/22 11/04/22 11:00 11:42 12:04 Temp 37.4 Pulse 71 71 Resp 16 B/P (MAP) 116/54 (74) 116/54 Pulse Ox 98 O2 Delivery Mechanical Ventilator O2 Flow Rate 75.00 11/04/22 00:00 Intake Total 2610 ml Output Total 2475 ml Balance 135 ml Weight (Pounds): 278 Weight (Ounces): 9.6 Weight (Calculated Kilograms): 126.821024 Constitutional: other (Intubated, on mech vent, non-communicative) Respiratory: No accessory muscle use, No respiratory distress; other (fair air entry, basal coarse and fine crackles) Cardiovascular: regular rate-rhythm; No JVD; S1 and S2 Gastrointestional: No tender; soft, round, distended; No guarding; audible bowel sounds Extremities: swelling (mild, bilateral leg edema) Neurologic/Psychiatric: other (moves extremities) Skin: No rash on exposed areas, No ulcerations on exposed areas; other (dressing to LLE which is D&I) Results/Procedures: Labs Laboratory Tests 11/03/22 18:42: Glucometer 157H 11/03/22 23:55: Glucometer 142H 11/04/22 03:29: White Blood Count 7.3, Red Blood Count 3.54L, Hemoglobin 10.6L, Hematocrit 32L, Mean Corpuscular Volume 90, Mean Corpuscular Hemoglobin 30, Mean Corpuscular Hemoglobin Concent 33, Red Cell Distribution Width 15.1H, Platelet Count 245, Mean Platelet Volume 10.3, Immature Granulocyte % (Auto) 1, Neutrophils (%) (Auto) 74, Lymphocytes (%) (Auto) 12, Monocytes (%) (Auto) 7, Eosinophils (%) (Auto) 6, Basophils (%) (Auto) 0, Neutrophils # (Auto) 5.4, Lymphocytes # (Auto) 0.9L, Monocytes # (Auto) 0.5, Eosinophils # (Auto) 0.4H, Basophils # (Auto) 0.0, Immature Granulocyte # (Auto) 0.1, Sodium Level 137, Potassium Level 3.5L, Chloride Level 98, Carbon Dioxide Level 23, Anion Gap 16H, Blood Urea Nitrogen 23H, Creatinine 1.14, Estimat Glomerular Filtration Rate 70, BUN/Creatinine Ratio 20, Glucose Level 164H, Calcium Level 8.7, Corrected Calcium 9.7, Phosphorus Level 3.8, Magnesium Level 1.8, Total Bilirubin 0.9, Aspartate Amino Transf (AST/SGOT) 14, Alanine Aminotransferase (ALT/SGPT) 10, Alkaline Phosphatase 54, Total Protein 6.9, Albumin 2.7L 11/04/22 03:32: Blood Gas Puncture Site RIGHT RADIAL, Blood Gas Patient Temperature 36.2, Arterial Blood pH 7.44H, Arterial Blood Partial Pressure CO2 46H, Arterial Blood Partial Pressure O2 58L, Arterial Blood HCO3 31H, Arterial Blood Total CO2 32.6H , Arterial Blood Oxygen Saturation 90L, Arterial Blood Base Excess 6.8H, Maurisio Test YES-POS, Blood Gas Ventilator Setting YES, Blood Gas Inspired Oxygen 75% 11/04/22 12:02: Glucometer 183H Microbiology 10/29/22 Urine Culture - Final, Complete NO GROWTH 10/29/22 MRSA Screen - Final, Complete MRSA not isolated 10/28/22 Blood Culture - Final, Complete No growth Laboratory Tests 11/03/22 03:19 11/04/22 03:29 A/P: Assessment: Acute on chronic respiratory failure (multifactorial, see below) - worsening during this hosp, now on mech vent Obesity with hypoventilation syndrome and SIDNEY Acute on chronic exacerbation of COPD - due to pneumonia - 2 weeks post COVID Mild troponin elevation - probably type 2 NM due to transient hypoxia H/O seizures Coronary artery disease - history of CABG 6 done in 2012, has been followed by Dr. Adkins. History of multiple catheterizations and recalls having small vessel disease for which conservative management has been advised in the past per previous notes Acute on chronic systolic and diastolic congestive heart failure - Echo May [address] Duke showing left ventricular systolic function mildly reduced, EF 40-45%, grade 1 diastolic dysfunction. Dilated left atrium, pulmonary artery pressure of 25-30 mmHg. - Echo 10/29/22: LVEF 50-55%, grade 2 diastolic dysfunction, mild LAE Chronic kidney disease stage 3 Hypertension, uncontrolled Hyperlipidemia - statin tx COPD Status post lumbar surgery done in May 2019, prolonged and complex recovery Diabetes mellitus Obesity History of tobaccoism Plan: * Complex management due to worsening resp failure and continuing mech vent (managed by Hosp and eICU svces) * iv diuretics to treat decomp CHF * Continue DAPT due to h/o CAD * Continue DVT prophylaxis due to considerable risk of DVT * Management of pneumonia / ac exac of COPD is with the Med svce * Replenish K * Monitor labs closely JONATHAN EPPERSON MD FACP FAC CCDS Nov 04, 2022 12:26
[2022-11-04] MEDS: NS IV 1000 ML 1,000 ML IV SCH (15:02)
[2022-11-04 15:05] VITALS: BP 124/57
[2022-11-04 19:04] VITALS: BP 129/57
[2022-11-04 22:49] VITALS: BP 125/53
[2022-11-05] MEDS: inSUlin ASPART (NovoLOG) 1 UNIT/0.01 ML (CHARGE PER UNIT) SC SCH ×4 (00:12→17:52)
[2022-11-05] MEDS: PROPOFOL DRIP (ICU) 100 ML IV SCH ×5 (00:13→22:57)
[2022-11-05] MEDS: RT-ALBUTEROL/IPRATROPIUM 3 ML (DUONEB) VIAL INH SCH ×6 (02:12→22:19)
[2022-11-05 02:13] VITALS: BP 124/54
[2022-11-05 04:53] LABS: BASOPHILS % (AUTO) 1 % (0-10); EOSINOPHILS # (AUTO) 0.4 10^3/uL (0.0-0.3); EOSINOPHILS % (AUTO) 5 % (0-10); HEMATOCRIT 31 % (40-54); HEMOGLOBIN 9.6 g/dL (13.3-17.7); LYMPHOCYTES # (AUTO) 1.2 10^3/uL (1.0-4.0); LYMPHOCYTES % (AUTO) 18 % (12-44); MEAN CORPUSCULAR HEMOGLOBIN 29 pg (25-34); MEAN CORPUSCULAR HGB CONC 31 g/dL (32-36); MEAN CORPUSCULAR VOLUME 92 fL (80-99); MEAN PLATELET VOLUME 10.4 fL (9.0-12.2); MONOCYTES # (AUTO) 0.6 10^3/uL (0.0-1.0); MONOCYTES % (AUTO) 8 % (0-12); NEUTROPHILS # (AUTO) 4.5 10^3/uL (1.8-7.8); NEUTROPHILS % (AUTO) 67 % (42-75); PLATELET COUNT 269 10^3/uL (130-400); WHITE BLOOD COUNT 6.7 10^3/uL (4.3-11.0)
[2022-11-05 04:55] LABS: ABG BASE EXCESS 3.8 MMOL/L (-2.5-2.5); ABG OXYGEN SATURATION 93 % (94-100); ABG PCO2 50 MMHG (35-45); ABG PH 7.38 (7.37-7.43); ABG PO2 71 MMHG (79-93); ABG TCO2 30.1 MMOL/L (21.0-31.0)
[2022-11-05 04:56] LABS: ALLENS TEST YES-POS; INSPIRED O2 60%; PATIENT TEMP 37; VENTILATOR YES
[2022-11-05 05:02] LABS: ALBUMIN 2.6 GM/DL (3.2-4.5); POTASSIUM 4.1 MMOL/L (3.6-5.0)
[2022-11-05 05:04] LABS: CALCIUM 8.7 MG/DL (8.5-10.1)
[2022-11-05 05:05] LABS: TOTAL PROTEIN 6.6 GM/DL (6.4-8.2)
[2022-11-05 05:07] LABS: BILIRUBIN,TOTAL 0.8 MG/DL (0.1-1.0)
[2022-11-05] MEDS: fentaNYL DRIP PRE-MIX 250 ML IV SCH ×4 (05:07→22:58)
[2022-11-05] MEDS: NOREPINEPHRINE 8 MG/250 ML 250 ML IV SCH ×2 (05:07→16:51)
[2022-11-05 05:08] LABS: PHOSPHORUS 3.9 MG/DL (2.3-4.7)
[2022-11-05 05:09] LABS: CREATININE SERUM 1.47 MG/DL (0.60-1.30)
[2022-11-05 05:11] LABS: MAGNESIUM 1.8 MG/DL (1.6-2.4)
[2022-11-05] MEDS: MAGNESIUM 1 GM/100 ML IVPB 100 ML IV SCH (05:17)
[2022-11-05] MEDS: KCL 20 MEQ TAB (K-DUR) PO SCH (05:17)
[2022-11-05] MEDS: POTASSIUM CL 10MEQ/50ML IVPB 50 ML IV SCH (05:17)
[2022-11-05] MEDS: FUROSEMIDE 40 MG/4 ML INJ (LASIX) IVP SCH ×2 (06:08→16:42)
[2022-11-05] MEDS: NS IV 1000 ML 1,000 ML IV SCH ×2 (06:08→22:58)
--- NOTE | 2022-11-05 06:46 | Occ Therapy Progress Note ---
Therapy Progress Note Pt currently intubated. OT to monitor pt's status then will initiate treatment when pt is medically stable and able to actively participate in skilled therapy. AMANDA WEINER Nov 05, 2022 06:46
[2022-11-05 06:59] VITALS: BP 122/54
--- NOTE | 2022-11-05 07:40 | Physical Therapy Progress Note ---
Therapy Progress Note Pt remains sedated and on ventilator. PT will continue to monitor and will begin treatment as patients ability to actively particpate improves. OTIS BALDWIN PT Nov 05, 2022 07:40
[2022-11-05] MEDS: PANTOPRAZOLE 40 MG (PROTONIX) VIAL IV SCH (08:16)
[2022-11-05] MEDS: amLODIPine 5 MG (NORVASC) TAB PO SCH (08:17)
[2022-11-05] MEDS: SENNOSIDES 8.6 MG (SENOKOT) TAB PO SCH ×2 (08:17→20:32)
[2022-11-05] MEDS: ASPIRIN 81 MG CHEW (CHILDREN'S ASA) PO SCH (08:17)
[2022-11-05] MEDS: CEFDINIR 300 MG (OMNICEF) CAP PO SCH ×2 (08:17→20:32)
[2022-11-05] MEDS: meTOprolol TARTRATE 25 MG (LOPRESSOR) TABLET PO SCH ×2 (08:17→20:32)
[2022-11-05] MEDS: CLOPIDOGREL 75 MG (PLAVIX) TABLET PO SCH (08:17)
[2022-11-05] MEDS: DOCUSATE SODIUM 10 MG/ML 10 ML UDC (COLACE) PO SCH ×2 (08:18→20:32)
[2022-11-05] MEDS: DexMEDEtomidine 250 ML DRIP 250 ML IV SCH ×2 (08:21→18:04)
--- NOTE | 2022-11-05 08:42 | Diagnostic Imaging Report ---
INDICATION: Respiratory failure Frontal chest obtained at 0316 a.m. and compared to 11/04/2022. There is no change in ET tube or NG tube compared to yesterday. Right-sided PICC line is unchanged. There is very shallow inspiration. There is cardiomegaly with bilateral perihilar infiltrates, right greater than left, and right basilar infiltrate. There is no pneumothorax. There is a question of right pleural fluid. IMPRESSION: Limited study with very poor inspiration. Bilateral perihilar infiltrates and right basilar infiltrate with question right pleural effusion. Stable life support lines. Dictated by: Dictated on workstation # [id number]
--- NOTE | 2022-11-05 09:59 | Progress Note ---
EMIR KAM 11/05/22 0959: Subjective Date Seen by a Provider: Nov 05, 2022 Time Seen by a Provider: 09:30 Subjective/Events-last exam Florentino Meehan is a 71 yo male who was admitted to the ICU for acute respiratory failure requiring BiPAP. He was intubated on 11/01. The patient on encounter today remains on mechanical ventilation; ventilator settings of Tidal Volume 500, Rate 16, PEEP 10.0, FiO2 65. Labs are significant for HGB 9.6, BUN 28, Glucose 205, and Albumin 2.6. ABG reveals pH 7.38, pCO2 50, pO2 71. Chest XR shows cardiomegaly and bilateral pulmonary infiltrates with a right pleural effusion. The patient is sedated and unable to provide further history. Patient's prognosis and likely plan moving forward was discussed with the patient's daughters in the patient room at [address] Law. Review of Systems Unable to obtain due to patient's condition. Objective Exam Last Set of Vital Signs Vital Signs Date Time Temp Pulse Resp B/P (MAP) Pulse Ox O2 Delivery O2 Flow Rate FiO2 11/05/22 09:19 70 122/54 11/05/22 09:00 16 97 Mechanical Ventilator 60.00 11/05/22 07:48 60 11/05/22 07:43 36.7 Capillary Refill : Less Than 3 Seconds I&O Intake and Output 11/05/22 00:00 Intake Total 3720 ml Output Total 2430 ml Balance 1290 ml Intake Oral 0 ml IV Total 2600 ml Tube Feeding 880 ml Other 240 ml Output Urine Total 2430 ml General: Other (Sedated on mechanical ventilation) HEENT: Atraumatic Lungs: Other (Diffuse inspiratory rhonchi.) Heart: Regular Rate, Normal S1, Normal S2 Extremities: Normal Pulses Results Lab Laboratory Tests 11/04/22 12:02: Glucometer 183H 11/04/22 17:45: Glucometer 185H 11/05/22 00:02: Glucometer 181H 11/05/22 04:20: Blood Gas Puncture Site RIGHT RADIAL, Blood Gas Patient Temperature 37, Arterial Blood pH 7.38, Arterial Blood Partial Pressure CO2 50H, Arterial Blood Partial Pressure O2 71L, Arterial Blood HCO3 29H, Arterial Blood Total CO2 30.1, Arterial Blood Oxygen Saturation 93L, Arterial Blood Base Excess 3.8H, Maurisio Test YES-POS, Blood Gas Ventilator Setting YES, Blood Gas Inspired Oxygen 60% 11/05/22 04:40: White Blood Count 6.7, Red Blood Count 3.37L, Hemoglobin 9.6L, Hematocrit 31L, Mean Corpuscular Volume 92, Mean Corpuscular Hemoglobin 29, Mean Corpuscular Hemoglobin Concent 31L, Red Cell Distribution Width 15.6H, Platelet Count 269, Mean Platelet Volume 10.4, Immature Granulocyte % (Auto) 1, Neutrophils (%) (Auto) 67, Lymphocytes (%) (Auto) 18, Monocytes (%) (Auto) 8, Eosinophils (%) (Auto) 5, Basophils (%) (Auto) 1, Neutrophils # (Auto) 4.5, Lymphocytes # (Auto) 1.2, Monocytes # (Auto) 0.6, Eosinophils # (Auto) 0.4H, Basophils # (Auto) 0.0, Immature Granulocyte # (Auto) 0.1, Sodium Level 140, Potassium Level 4.1, Chloride Level 102, Carbon Dioxide Level 26, Anion Gap 12, Blood Urea Nitrogen 28H, Creatinine 1.47H, Estimat Glomerular Filtration Rate 51, BUN/Creatinine Ratio 19, Glucose Level 205H, Calcium Level 8.7, Corrected Calcium 9.8, Phosphorus Level 3.9, Magnesium Level 1.8, Total Bilirubin 0.8, Aspartate Amino Transf (AST/SGOT) 26, Alanine Aminotransferase (ALT/SGPT) 9, Alkaline Phosphatase 61, Total Protein 6.6, Albumin 2.6L Microbiology 10/29/22 Urine Culture - Final, Complete NO GROWTH 10/29/22 MRSA Screen - Final, Complete MRSA not isolated 10/28/22 Blood Culture - Final, Complete No growth Radiology CHEST 1 VIEW, AP/PA ONLY IMPRESSION: Limited study with very poor inspiration. Bilateral perihilar infiltrates and right basilar infiltrate with question right pleural effusion. Stable life support lines. Assessment/Plan Assessment/Plan Assess & Plan/Chief Complaint 1. Acute respiratory failure: Continue mechanical ventilation. Continue monitoring respiratory status. 2. UTI: Continue cefdinir regimen. 3. Metabolic encephalopathy: Continue gentle hydration and correction of acute respiratory failure. 4. DVT prophylaxis: Continue Lovenox therapy. 5. Elevated troponin: Consult cardiology. Consider placement at [facility]. Clinical Quality Measures Admission Status Admission Dx 1. Acute respiratory failure: Continue BiPAP. Monitor O2 saturation and respiratory status. 2. UTI: Continue vancomycin, cefepime regimen. 3. Metabolic encephalopathy: Continue gentle hydration and correction of acute respiratory failure. 4. DVT prophylaxis: Continue Lovenox therapy. 5. Elevated troponin: Consult cardiology. CINTIA LAW DO 11/06/22 0542: Assessment/Plan Assessment/Plan Assess & Plan/Chief Complaint Updated daughters at the bedside LTCH pending Supervisory-Addendum Brief Verification & Attestation Participated in pt care: history, MDM, physical Personally performed: exam, history, MDM, supervision of care Care discussed with: Medical Student Procedures: n/a Results interpretation: Verified all documentation Verification and Attestation of Medical Student E/M Service A medical student performed and documented this service in my presence. I reviewed and verified all information documented by the medical student and made modifications to such information, when appropriate. I personally performed the physical exam and medical decision making. Cintia Law Nov 06, 2022,05:42 EMIR KAM Nov 05, 2022 09:59 CINTIA LAW DO Nov 06, 2022 05:42
--- NOTE | 2022-11-05 10:25 | Progress Note - Cardiology ---
Cardiology SOAP Progress Note Subjective: Remains intubated and sedated Objective: I&O/Vital Signs 11/05/22 11/05/22 11/05/22 11/05/22 03:00 03:00 04:00 04:00 Temp 37.0 Pulse 62 Resp 16 B/P (MAP) 136/56 (82) Pulse Ox 96 95 O2 Delivery Mechanical Ventilator Mechanical Ventilator Mechanical Ventilator O2 Flow Rate 60.00 60.00 FiO2 60 11/05/22 11/05/22 11/05/22 11/05/22 04:00 04:52 05:00 05:07 Pulse 63 70 65 66 Resp 16 16 16 B/P (MAP) 128/55 (79) 124/54 (77) 124/54 Pulse Ox 97 94 96 O2 Delivery Mechanical Ventilator Mechanical Ventilator O2 Flow Rate 60.00 60.00 11/05/22 11/05/22 11/05/22 11/05/22 06:00 06:22 06:59 07:00 Pulse 68 68 70 68 Resp 16 16 16 B/P (MAP) 118/53 (74) 139/59 122/54 (76) Pulse Ox 96 93 96 O2 Delivery Mechanical Ventilator Mechanical Ventilator O2 Flow Rate 60.00 60.00 FiO2 65 11/05/22 11/05/22 11/05/22 11/05/22 07:20 07:43 07:44 07:48 Temp 36.7 Pulse 73 129 Pulse Ox 95 O2 Delivery Mechanical Ventilator FiO2 60 11/05/22 11/05/22 11/05/22 11/05/22 08:00 08:21 09:00 09:19 Pulse 72 70 71 70 Resp 16 16 B/P (MAP) 137/61 (86) 122/54 125/65 (85) 122/54 Pulse Ox 100 97 O2 Delivery Mechanical Ventilator Mechanical Ventilator O2 Flow Rate 60.00 60.00 11/05/22 11/05/22 11/05/22 11/05/22 10:26 11:09 11:10 11:46 Temp 37.2 Pulse 71 71 71 Resp 16 B/P (MAP) 143/65 143/65 Pulse Ox 96 FiO2 65 11/05/22 11/05/22 11/05/22 11/05/22 12:15 12:35 14:00 14:21 Pulse 71 71 75 Resp 16 B/P (MAP) 143/65 143/65 Pulse Ox 95 100 O2 Delivery Mechanical Ventilator FiO2 60 65 11/05/22 00:00 Intake Total 2500 ml Output Total 1275 ml Balance 1225 ml Weight (Pounds): 278 Weight (Ounces): 9.6 Weight (Calculated Kilograms): 126.617472 Constitutional: other (Intubated, on mech vent, non-communicative) Respiratory: No accessory muscle use, No respiratory distress; other (fair air entry, basal coarse and fine crackles) Cardiovascular: regular rate-rhythm; No JVD; S1 and S2 Gastrointestional: No tender; soft, round, distended; No guarding; audible bowel sounds Extremities: swelling (mild, bilateral leg edema) Neurologic/Psychiatric: other (moves extremities) Skin: No rash on exposed areas, No ulcerations on exposed areas; other (dressing to LLE which is D&I) Results/Procedures: Labs Laboratory Tests 11/04/22 17:45: Glucometer 185H 11/05/22 00:02: Glucometer 181H 11/05/22 04:20: Blood Gas Puncture Site RIGHT RADIAL, Blood Gas Patient Temperature 37, Arterial Blood pH 7.38, Arterial Blood Partial Pressure CO2 50H, Arterial Blood Partial Pressure O2 71L, Arterial Blood HCO3 29H, Arterial Blood Total CO2 30.1, Arterial Blood Oxygen Saturation 93L, Arterial Blood Base Excess 3.8H, Maurisio Test YES-POS, Blood Gas Ventilator Setting YES, Blood Gas Inspired Oxygen 60% 11/05/22 04:40: White Blood Count 6.7, Red Blood Count 3.37L, Hemoglobin 9.6L, Hematocrit 31L, Mean Corpuscular Volume 92, Mean Corpuscular Hemoglobin 29, Mean Corpuscular Hemoglobin Concent 31L, Red Cell Distribution Width 15.6H, Platelet Count 269, Mean Platelet Volume 10.4, Immature Granulocyte % (Auto) 1, Neutrophils (%) (Auto) 67, Lymphocytes (%) (Auto) 18, Monocytes (%) (Auto) 8, Eosinophils (%) (Auto) 5, Basophils (%) (Auto) 1, Neutrophils # (Auto) 4.5, Lymphocytes # (Auto) 1.2, Monocytes # (Auto) 0.6, Eosinophils # (Auto) 0.4H, Basophils # (Auto) 0.0, Immature Granulocyte # (Auto) 0.1, Sodium Level 140, Potassium Level 4.1, Chloride Level 102, Carbon Dioxide Level 26, Anion Gap 12, Blood Urea Nitrogen 28H, Creatinine 1.47H, Estimat Glomerular Filtration Rate 51, BUN/Creatinine Ratio 19, Glucose Level 205H, Calcium Level 8.7, Corrected Calcium 9.8, Phosphorus Level 3.9, Magnesium Level 1.8, Total Bilirubin 0.8, Aspartate Amino Transf (AST/SGOT) 26, Alanine Aminotransferase (ALT/SGPT) 9, Alkaline Phosphatase 61, Total Protein 6.6, Albumin 2.6L, Triglycerides Level 196H 11/05/22 11:48: Glucometer 200H Microbiology 10/29/22 Urine Culture - Final, Complete NO GROWTH 10/29/22 MRSA Screen - Final, Complete MRSA not isolated 10/28/22 Blood Culture - Final, Complete No growth A/P: Assessment: Acute on chronic respiratory failure (multifactorial, see below) - worsening during this hosp, now on mech vent Obesity with hypoventilation syndrome and SIDNEY Acute on chronic exacerbation of COPD - due to pneumonia - 2 weeks post COVID Mild troponin elevation - probably type 2 [place] due to transient hypoxia H/O seizures Coronary artery disease - history of CABG 6 done in 2012, has been followed by Dr. Adkins. History of multiple catheterizations and recalls having small vessel disease for which conservative management has been advised in the past per previous notes Acute on chronic systolic and diastolic congestive heart failure - Echo May [address] Duke showing left ventricular systolic function mildly reduced, EF 40-45%, grade 1 diastolic dysfunction. Dilated left atrium, pulmonary artery pressure of 25-30 mmHg. - Echo 10/29/22: LVEF 50-55%, grade 2 diastolic dysfunction, mild LAE Chronic kidney disease stage 3 Hypertension, uncontrolled Hyperlipidemia - statin tx COPD Status post lumbar surgery done in May 2019, prolonged and complex recovery Diabetes mellitus Obesity History of tobaccoism Plan: * Complex management due to worsening resp failure and continuing mech vent (managed by Hosp and eICU svces) * Continue iv diuretics to treat decomp CHF * Continue DAPT due to h/o CAD * Continue DVT prophylaxis due to considerable risk of DVT * Management of pneumonia / ac exac of COPD is with the Med svce * Replenish K * Monitor labs closely * Possible transfer to [place]? DEON STANLEY Nov 05, 2022 10:25
[2022-11-05 10:26] VITALS: BP 124/56
--- NOTE | 2022-11-05 10:59 | Tele-ICU Progress Note ---
Subjective Date Seen by a Provider: Nov 05, 2022 Time Seen by a Provider: 10:54 Subjective/Events-last exam (Tele-ICU Physician , consultation) Available chart/ vitals / labs / Images reviewed H&P is from ER notes Patient's information available about PMH, allergy reviewed in EMR. ROS as per chart and RN report Video assessment done using teleICU camera, rest of exam as per RN Discussed with RN. He is today remained on mechanical ventilation. Chest x-ray still showing cardiomegaly with the fluid overload. He is currently on mechanical ventilation with tidal volume 500/respiratory rate 16 FiO2 65% and PEEP of 10. Based on his clinical status and chest x-ray I do not think he is ready for SBT. 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 mpression 1. Acute hypoxic respiratory failure 2. Acute pulmonary edema only a minimal improvement. 3. COPD exacerbation. 4. Hypertension uncontrolled 5. Chronic kidney disease stage III 6. Obesity 7. Diabetes mellitus type 2. Recommendations 1. We deisy continue to wean fio2 as tolerated. 2. Continue IV Lasix per cardiology 3. Monitor electrolytes renal blood gases. 4. Control of blood pressure per cardiology 5. Antibiotics and diabetes management per primary care 6. DVT prophylaxis and ulcer prophylaxis. 7. ? transfer to LTAC per family Sepsis Event Evaluation Height, Weight, BMI Height: 5'10.00" Weight: 278lbs. 9.6oz. 126.841824ga; 86.36 BMI Method:Stated Exam Exam Patient acknowledged, consented, and participated in this virtual visit which was conducted using real time audio/video Vital Signs Date Time Temp Pulse Resp B/P (MAP) Pulse Ox O2 Delivery O2 Flow Rate FiO2 11/05/22 10:26 71 16 96 65 11/05/22 09:19 70 122/54 11/05/22 09:00 71 16 125/65 (85) 97 Mechanical Ventilator 60.00 11/05/22 08:21 70 122/54 11/05/22 08:00 72 16 137/61 (86) 100 Mechanical Ventilator 60.00 11/05/22 07:48 95 Mechanical Ventilator 60 11/05/22 07:44 129 11/05/22 07:43 36.7 11/05/22 07:20 73 11/05/22 07:00 68 16 122/54 (76) 96 Mechanical Ventilator 60.00 11/05/22 06:59 70 16 93 65 11/05/22 06:22 68 139/59 11/05/22 06:00 68 16 118/53 (74) 96 Mechanical Ventilator 60.00 11/05/22 05:07 66 124/54 11/05/22 05:00 65 16 124/54 (77) 96 Mechanical Ventilator 60.00 11/05/22 04:52 70 16 94 11/05/22 04:00 63 16 128/55 (79) 97 Mechanical Ventilator 60.00 11/05/22 04:00 37.0 11/05/22 04:00 95 Mechanical Ventilator 60 11/05/22 03:00 62 16 136/56 (82) 96 Mechanical Ventilator 60.00 11/05/22 03:00 Mechanical Ventilator 60.00 11/05/22 02:13 60 16 96 65 11/05/22 02:03 62 131/58 11/05/22 02:00 61 16 124/54 (77) 96 Mechanical Ventilator 65.00 11/05/22 01:00 61 16 124/52 (76) 96 Mechanical Ventilator 65.00 11/05/22 01:00 61 11/05/22 00:13 62 134/56 11/05/22 00:00 62 16 134/56 (82) 97 Mechanical Ventilator 65.00 11/04/22 23:59 96 Mechanical Ventilator 65 11/04/22 23:59 36.8 11/04/22 23:00 61 16 134/58 (83) 97 Mechanical Ventilator 65.00 11/04/22 23:00 61 125/53 11/04/22 22:49 61 16 97 65 11/04/22 22:00 63 16 122/51 (74) 98 Mechanical Ventilator 65.00 11/04/22 21:00 78 16 130/55 (80) 98 Mechanical Ventilator 65.00 11/04/22 20:15 Mechanical Ventilator 65.00 11/04/22 20:12 36.5 11/04/22 20:00 63 16 142/62 (88) 97 Mechanical Ventilator 75.00 11/04/22 20:00 98 Mechanical Ventilator 75 11/04/22 19:04 64 16 98 65 11/04/22 19:00 64 11/04/22 19:00 64 16 129/57 (81) 98 Mechanical Ventilator 75.00 11/04/22 18:54 64 131/57 11/04/22 18:43 65 126/56 11/04/22 18:00 65 16 126/56 (79) 98 Mechanical Ventilator 75.00 11/04/22 17:47 66 126/52 11/04/22 17:00 66 16 126/52 (76) 97 Mechanical Ventilator 75.00 11/04/22 16:04 68 132/60 11/04/22 16:01 37.2 11/04/22 16:00 97 Mechanical Ventilator 75 11/04/22 16:00 37.2 11/04/22 16:00 68 16 132/60 (84) 92 Mechanical Ventilator 75.00 11/04/22 15:05 68 16 91 75 11/04/22 15:03 70 129/61 11/04/22 15:03 70 129/61 11/04/22 15:00 69 16 122/55 (77) 91 Mechanical Ventilator 75.00 11/04/22 14:43 37.8 11/04/22 14:31 70 129/61 11/04/22 14:00 70 16 119/56 (77) 85 Mechanical Ventilator 75.00 11/04/22 13:24 70 11/04/22 13:00 70 16 129/61 (83) 94 Mechanical Ventilator 75.00 11/04/22 12:05 94 Mechanical Ventilator 75 11/04/22 12:04 71 116/54 11/04/22 12:00 71 16 125/56 (79) 98 Mechanical Ventilator 75.00 11/04/22 11:42 37.4 11/04/22 11:00 71 16 116/54 (74) 98 Mechanical Ventilator 75.00 I & O 11/05/22 07:00 Intake Total 4790 ml Output Total 2005 ml Balance 2785 ml Height & Weight Height: 5'10.00" Weight: 278lbs. 9.6oz. 126.449594fh; 86.36 BMI Method:Stated General Appearance: WD/WN, Chronically ill, Moderate Distress, Obese, Other (on BiPAP) Respiratory: No Accessory Muscle Use, No Respiratory Distress, Decreased Breath Sounds (diffuse), Rhonci Cardiovascular: Regular Rate, Rhythm Capillary Refill: Less Than 3 Seconds Gastrointestinal: normal bowel sounds, non tender, soft, other (mild distension) Extremity: No Pedal Edema, Pedal Edema Neurologic/Psychiatric: Alert, Disoriented Results Lab Laboratory Tests 11/04/22 03:29 11/05/22 04:40 Assessment/Plan Assessment/Plan as above Critical Care: Ventilator Management Time spent with patient (mins): 32 CHICHI DRISCOLL MD Nov 05, 2022 10:59
[2022-11-05] MEDS: ENOXAPARIN 40 MG/0.4 ML (LOVENOX) SYR SC SCH ×2 (11:08→22:58)
[2022-11-05 14:21] VITALS: BP 160/68
--- NOTE | 2022-11-05 14:25 | Progress Note - Cardiology ---
Cardiology SOAP Progress Note Subjective: Intubated, on mech vent, non-communicative Objective: I&O/Vital Signs 11/05/22 11/05/22 11/05/22 11/05/22 03:00 03:00 04:00 04:00 Temp 37.0 Pulse 62 Resp 16 B/P (MAP) 136/56 (82) Pulse Ox 96 95 O2 Delivery Mechanical Ventilator Mechanical Ventilator Mechanical Ventilator O2 Flow Rate 60.00 60.00 FiO2 60 11/05/22 11/05/22 11/05/22 11/05/22 04:00 04:52 05:00 05:07 Pulse 63 70 65 66 Resp 16 16 16 B/P (MAP) 128/55 (79) 124/54 (77) 124/54 Pulse Ox 97 94 96 O2 Delivery Mechanical Ventilator Mechanical Ventilator O2 Flow Rate 60.00 60.00 11/05/22 11/05/22 11/05/22 11/05/22 06:00 06:22 06:59 07:00 Pulse 68 68 70 68 Resp 16 16 16 B/P (MAP) 118/53 (74) 139/59 122/54 (76) Pulse Ox 96 93 96 O2 Delivery Mechanical Ventilator Mechanical Ventilator O2 Flow Rate 60.00 60.00 FiO2 65 11/05/22 11/05/22 11/05/22 11/05/22 07:20 07:43 07:44 07:48 Temp 36.7 Pulse 73 129 Pulse Ox 95 O2 Delivery Mechanical Ventilator FiO2 60 11/05/22 11/05/22 11/05/22 11/05/22 08:00 08:21 09:00 09:19 Pulse 72 70 71 70 Resp 16 16 B/P (MAP) 137/61 (86) 122/54 125/65 (85) 122/54 Pulse Ox 100 97 O2 Delivery Mechanical Ventilator Mechanical Ventilator O2 Flow Rate 60.00 60.00 11/05/22 11/05/22 11/05/22 11/05/22 10:26 11:09 11:10 11:46 Temp 37.2 Pulse 71 71 71 Resp 16 B/P (MAP) 143/65 143/65 Pulse Ox 96 FiO2 65 11/05/22 11/05/22 11/05/22 12:15 12:35 14:00 Pulse 71 71 B/P (MAP) 143/65 143/65 Pulse Ox 95 O2 Delivery Mechanical Ventilator FiO2 60 11/05/22 00:00 Intake Total 2500 ml Output Total 1275 ml Balance 1225 ml Weight (Pounds): 278 Weight (Ounces): 9.6 Weight (Calculated Kilograms): 126.262001 Constitutional: other (Intubated, on [facility], non-communicative) Respiratory: No accessory muscle use, No respiratory distress; other (fair air entry, basal coarse and fine crackles) Cardiovascular: regular rate-rhythm; No JVD; S1 and S2 Gastrointestional: No tender; soft, round, distended; No guarding; audible bowel sounds Extremities: swelling (mild, bilateral leg edema) Neurologic/Psychiatric: other (moves extremities) Skin: No rash on exposed areas, No ulcerations on exposed areas; other (dressing to LLE which is D&I) Results/Procedures: Labs Laboratory Tests 11/04/22 17:45: Glucometer 185H 11/05/22 00:02: Glucometer 181H 11/05/22 04:20: Blood Gas Puncture Site RIGHT RADIAL, Blood Gas Patient Temperature 37, Arterial Blood pH 7.38, Arterial Blood Partial Pressure CO2 50H, Arterial Blood Partial Pressure O2 71L, Arterial Blood HCO3 29H, Arterial Blood Total CO2 30.1, Arterial Blood Oxygen Saturation 93L, Arterial Blood Base Excess 3.8H, Maurisio Test YES-POS, Blood Gas Ventilator Setting YES, Blood Gas Inspired Oxygen 60% 11/05/22 04:40: White Blood Count 6.7, Red Blood Count 3.37L, Hemoglobin 9.6L, Hematocrit 31L, Mean Corpuscular Volume 92, Mean Corpuscular Hemoglobin 29, Mean Corpuscular Hemoglobin Concent 31L, Red Cell Distribution Width 15.6H, Platelet Count 269, Mean Platelet Volume 10.4, Immature Granulocyte % (Auto) 1, Neutrophils (%) (Auto) 67, Lymphocytes (%) (Auto) 18, Monocytes (%) (Auto) 8, Eosinophils (%) (Auto) 5, Basophils (%) (Auto) 1, Neutrophils # (Auto) 4.5, Lymphocytes # (Auto) 1.2, Monocytes # (Auto) 0.6, Eosinophils # (Auto) 0.4H, Basophils # (Auto) 0.0, Immature Granulocyte # (Auto) 0.1, Sodium Level 140, Potassium Level 4.1, Chloride Level 102, Carbon Dioxide Level 26, Anion Gap 12, Blood Urea Nitrogen 28H, Creatinine 1.47H, Estimat Glomerular Filtration Rate 51, BUN/Creatinine Ratio 19, Glucose Level 205H, Calcium Level 8.7, Corrected Calcium 9.8, Phosphorus Level 3.9, Magnesium Level 1.8, Total Bilirubin 0.8, Aspartate Amino Transf (AST/SGOT) 26, Alanine Aminotransferase (ALT/SGPT) 9, Alkaline Phosphatase 61, Total Protein 6.6, Albumin 2.6L, Triglycerides Level 196H 11/05/22 11:48: Glucometer 200H Microbiology 10/29/22 Urine Culture - Final, Complete NO GROWTH 10/29/22 MRSA Screen - Final, Complete MRSA not isolated 10/28/22 Blood Culture - Final, Complete No growth Laboratory Tests 11/04/22 03:29 11/05/22 04:40 A/P: Assessment: Acute on chronic respiratory failure (multifactorial, see below) - worsening during this hosp, now on mech vent Obesity with hypoventilation syndrome and SIDNEY Acute on chronic exacerbation of COPD - due to pneumonia - 2 weeks post COVID Mild troponin elevation - probably type 2 [place] due to transient hypoxia H/O seizures Coronary artery disease - history of CABG 6 done in 2012, has been followed by Dr. Adkins. History of multiple catheterizations and recalls having small vessel disease for which conservative management has been advised in the past per previous notes Acute on chronic systolic and diastolic congestive heart failure - Echo May [address] Duke showing left ventricular systolic function mildly reduced, EF 40-45%, grade 1 diastolic dysfunction. Dilated left atrium, pulmonary artery pressure of 25-30 mmHg. - Echo 10/29/22: LVEF 50-55%, grade 2 diastolic dysfunction, mild LAE Chronic kidney disease stage 3 - now (11/05/22) appears to be developing pre-renal azotemia due to diuretics (consider intravascular volume depletion) Hypertension, uncontrolled Hyperlipidemia - statin tx COPD Status post lumbar surgery done in May 2019, prolonged and complex recovery Diabetes mellitus Obesity History of tobaccoism Plan: * Complex management due to worsening resp failure and continuing mech vent (managed by Hosp and eICU svces) * Continue iv diuretics to treat decomp CHF, but may need to reduce dose if evidence or pre-renal azotemia * Continue DAPT due to h/o CAD * Continue DVT prophylaxis due to considerable risk of DVT * Management of pneumonia / ac exac of COPD is with the Med svce * Replenish K * Monitor labs closely * Consider transfer to tertiary care hospital JONATHAN EPPERSON MD FACP FAC CCDS Nov 05, 2022 14:25
[2022-11-05] MEDS: LABETALOL HCL 20 MG/4 ML VIAL IV PRN (17:58)
[2022-11-05] MEDS: hydrALAZINE (APESOLINE) 20 MG/ML VIAL IV PRN (18:34)
[2022-11-05 19:10] VITALS: BP 120/51
[2022-11-05 22:19] VITALS: BP 130/55
[2022-11-06] MEDS: inSUlin ASPART (NovoLOG) 1 UNIT/0.01 ML (CHARGE PER UNIT) SC SCH ×4 (00:11→18:32)
[2022-11-06] MEDS: NOREPINEPHRINE 8 MG/250 ML 250 ML IV SCH ×3 (00:13→21:21)
[2022-11-06 03:16] VITALS: BP 146/61
[2022-11-06] MEDS: RT-ALBUTEROL/IPRATROPIUM 3 ML (DUONEB) VIAL INH SCH ×6 (03:16→21:46)
[2022-11-06] MEDS: PROPOFOL DRIP (ICU) 100 ML IV SCH ×5 (03:29→21:34)
[2022-11-06] MEDS: DexMEDEtomidine 250 ML DRIP 250 ML IV SCH ×3 (03:45→22:10)
[2022-11-06 04:43] LABS: ABG OXYGEN SATURATION 92 % (94-100); ABG PCO2 54 MMHG (35-45); ABG PO2 68 MMHG (79-93)
[2022-11-06 04:44] LABS: ABG PH 7.34 (7.37-7.43); ALLENS TEST YES-POS; BASOPHILS % (AUTO) 1 % (0-10); EOSINOPHILS # (AUTO) 0.3 10^3/uL (0.0-0.3); EOSINOPHILS % (AUTO) 4 % (0-10); HEMATOCRIT 31 % (40-54); HEMOGLOBIN 9.7 g/dL (13.3-17.7); LYMPHOCYTES % (AUTO) 15 % (12-44); MEAN CORPUSCULAR HEMOGLOBIN 29 pg (25-34); MEAN CORPUSCULAR HGB CONC 31 g/dL (32-36); MEAN CORPUSCULAR VOLUME 92 fL (80-99); MEAN PLATELET VOLUME 10.4 fL (9.0-12.2); MONOCYTES # (AUTO) 0.7 10^3/uL (0.0-1.0); MONOCYTES % (AUTO) 10 % (0-12); NEUTROPHILS # (AUTO) 4.7 10^3/uL (1.8-7.8); NEUTROPHILS % (AUTO) 69 % (42-75); PLATELET COUNT 277 10^3/uL (130-400); WHITE BLOOD COUNT 6.8 10^3/uL (4.3-11.0)
[2022-11-06 04:45] LABS: INSPIRED O2 65%; PATIENT TEMP 36.6; VENTILATOR YES
[2022-11-06 04:57] LABS: ALBUMIN 2.6 GM/DL (3.2-4.5); POTASSIUM 3.9 MMOL/L (3.6-5.0)
[2022-11-06 04:58] LABS: CALCIUM 8.8 MG/DL (8.5-10.1)
[2022-11-06 04:59] LABS: TOTAL PROTEIN 6.7 GM/DL (6.4-8.2)
[2022-11-06 05:01] LABS: BILIRUBIN,TOTAL 0.8 MG/DL (0.1-1.0)
[2022-11-06 05:02] LABS: PHOSPHORUS 3.4 MG/DL (2.3-4.7)
[2022-11-06 05:03] LABS: CREATININE SERUM 1.39 MG/DL (0.60-1.30)
[2022-11-06 05:05] LABS: MAGNESIUM 1.6 MG/DL (1.6-2.4)
[2022-11-06] MEDS: fentaNYL DRIP PRE-MIX 250 ML IV SCH ×4 (05:24→22:11)
[2022-11-06] MEDS: MAGNESIUM 1 GM/100 ML IVPB 100 ML IV SCH ×3 (05:24→06:22)
[2022-11-06] MEDS: hydrALAZINE (APESOLINE) 20 MG/ML VIAL IV PRN (05:37)
[2022-11-06] MEDS: KCL 20 MEQ TAB (K-DUR) PO SCH (05:40)
[2022-11-06] MEDS: POTASSIUM CL 10MEQ/50ML IVPB 50 ML IV SCH (05:40)
[2022-11-06] MEDS: FUROSEMIDE 40 MG/4 ML INJ (LASIX) IVP SCH ×2 (06:22→17:10)
[2022-11-06 06:31] VITALS: BP 126/55
--- NOTE | 2022-11-06 06:40 | Occ Therapy Progress Note ---
Therapy Progress Note Pt currently intubated. OT to monitor pt's status then will initiate treatment when pt is medically stable and able to actively participate in skilled therapy. AMANDA WEINER Nov 06, 2022 06:40
--- NOTE | 2022-11-06 08:40 | Diagnostic Imaging Report ---
INDICATION: Congestive heart failure Portable AP view of chest is obtained with comparison made to study of 11/05/2022 There is cardiomegaly and pulmonary venous congestion. Bilateral airspace disease has shown mild improvement although there is persistent consolidation in the right lower lobe. Endotracheal tube remains in place with tip at the level of thoracic inlet. IMPRESSION: Findings are most suggestive of improving congestive heart failure and pulmonary edema with superimposed infiltrate in the right lung base which could be secondary to pneumonitis or pneumonia. Dictated by: Dictated on workstation # [id number]
--- NOTE | 2022-11-06 09:08 | Physical Therapy Progress Note ---
Therapy Progress Note Pt remains sedated on ventilator. Physical therapy will continue to follow daily and as patient becomes conscious, therapy will begin treatment. JOSÉ LUIS PINTO PT Nov 06, 2022 09:08
[2022-11-06] MEDS: meTOprolol TARTRATE 25 MG (LOPRESSOR) TABLET PO SCH ×2 (09:27→20:59)
[2022-11-06] MEDS: CEFDINIR 300 MG (OMNICEF) CAP PO SCH ×2 (09:27→20:59)
[2022-11-06] MEDS: amLODIPine 5 MG (NORVASC) TAB PO SCH (09:27)
[2022-11-06] MEDS: SENNOSIDES 8.6 MG (SENOKOT) TAB PO SCH ×2 (09:27→20:59)
[2022-11-06] MEDS: ASPIRIN 81 MG CHEW (CHILDREN'S ASA) PO SCH (09:27)
[2022-11-06] MEDS: PANTOPRAZOLE 40 MG (PROTONIX) VIAL IV SCH (09:27)
[2022-11-06] MEDS: CLOPIDOGREL 75 MG (PLAVIX) TABLET PO SCH (09:27)
[2022-11-06] MEDS: DOCUSATE SODIUM 10 MG/ML 10 ML UDC (COLACE) PO SCH ×2 (09:27→20:59)
[2022-11-06] MEDS: NS IV 1000 ML 1,000 ML IV SCH (09:29)
--- NOTE | 2022-11-06 10:02 | Progress Note ---
EMIR KAM 11/06/22 1002: Subjective Date Seen by a Provider: Nov 06, 2022 Time Seen by a Provider: 09:25 Subjective/Events-last exam Hospital Course: Florentino Meehan is a 71 yo male who was admitted from [facility] to the ICU for worsening SOB requiring BiPAP. The patient was notably confused at the time of transfer, with limited responsiveness to questioning. Labs on admission were remarkable for elevated troponin of 0.895, BNP 159.5, Procalcitonin 0.18, D-dimer 0.85, and multiple UA abnormalities suggestive of UTI. The patient was initially started on vancomycin and cefepime on arrival, ultimately switched to cefdinir on 11/04. The patient remained on BiPAP until 11/01 when he was placed on mechanical ventilation, which he has continued to require. Urine culture returned negative for bacterial growth. Daily ABGs obtained, most recently showing pH 7.34, pCO2 54, pO2 68. Bloodwork remained largely unchanged throug hout his hospitalization, most recently significant only for HGB 9.7, BUN 28, Creatinine 1.39 (decreased from previous day 1.47). Daily Chest X-rays were obtained, most recently showing perihilar infiltrates and right basilar infiltrate with possible right pleural effusion. DVT prophylaxis was initiated with Lovenox. Long-term care hospital transfer and continued intubation was dis cussed with the patient's daughters, who are agreeable to this plan, though they prefer transfer to a [facility]. The patient remains sedated on mechanical ventilation on evaluation and is unable to provide further history. Review of Systems Unable to obtain due to patient's condition. Objective Exam Last Set of Vital Signs Vital Signs Date Time Temp Pulse Resp B/P (MAP) Pulse Ox O2 Delivery O2 Flow Rate FiO2 11/06/22 09:00 70 16 132/58 (82) 92 Mechanical Ventilator 65.00 11/06/22 08:00 36.6 11/06/22 06:31 65 Capillary Refill : Less Than 3 Seconds I&O Intake and Output 11/06/22 00:00 Intake Total 3070 ml Output Total 3150 ml Balance -80 ml Intake Oral 0 ml IV Total 1850 ml Tube Feeding 1040 ml Other 180 ml Output Urine Total 3150 ml General: Other (Patient sedated on mechanical ventilation) HEENT: Atraumatic Lungs: Other (Right-sided expiratory rhonchi.) Extremities: No Edema Psych/Mental Status: Other (Sedated) Results Lab Laboratory Tests 11/05/22 11:48: Glucometer 200H 11/05/22 17:26: Glucometer 196H 11/06/22 00:07: Glucometer 194H 11/06/22 04:30: White Blood Count 6.8, Red Blood Count 3.37L, Hemoglobin 9.7L, Hematocrit 31L, Mean Corpuscular Volume 92, Mean Corpuscular Hemoglobin 29, Mean Corpuscular Hemoglobin Concent 31L, Red Cell Distribution Width 15.9H, Platelet Count 277, Mean Platelet Volume 10.4, Immature Granulocyte % (Auto) 1, Neutrophils (%) (Auto) 69, Lymphocytes (%) (Auto) 15, Monocytes (%) (Auto) 10, Eosinophils (%) (Auto) 4, Basophils (%) (Auto) 1, Neutrophils # (Auto) 4.7, Lymphocytes # (Auto) 1.0, Monocytes # (Auto) 0.7, Eosinophils # (Auto) 0.3, Basophils # (Auto) 0.0, Immature Granulocyte # (Auto) 0.1, Blood Gas Puncture Site LEFT RADIAL, Blood Gas Patient Temperature 36.6, Arterial Blood pH 7.34*L, Arterial Blood Partial Pressure CO2 54H, Arterial Blood Partial Pressure O2 68L, Arterial Blood HCO3 28H, Arterial Blood Total CO2 30.0, Arterial Blood Oxygen Saturation 92L, Arterial Blood Base Excess 3.0H, Maurisio Test YES-POS, Blood Gas Ventilator Setting YES, Blood Gas Inspired Oxygen 65%, Sodium Level 141, Potassium Level 3.9, Chloride Level 105, Carbon Dioxide Level 25, Anion Gap 11, Blood Urea Nitrogen 28H, Creatinine 1.39H, Estimat Glomerular Filtration Rate 55, BUN/Creatinine Ratio 20, Glucose Level 206H, Calcium Level 8.8, Corrected Calcium 9.9, Phosphorus Level 3.4, Magnesium Level 1.6, Total Bilirubin 0.8, Aspartate Amino Transf (AST/SGOT) 33, Alanine Aminotransferase (ALT/SGPT) 14, Alkaline Phosphatase 68, Total Protein 6.7, Albumin 2.6L Microbiology 10/29/22 Urine Culture - Final, Complete NO GROWTH 10/29/22 MRSA Screen - Final, Complete MRSA not isolated 10/28/22 Blood Culture - Final, Complete No growth Radiology Date of Exam:11/06/22 CHEST 1 VIEW, AP/PA ONLY IMPRESSION: Findings are most suggestive of improving congestive heart failure and pulmonary edema with superimposed infiltrate in the right lung base which could be secondary to pneumonitis or pneumonia. Assessment/Plan Assessment/Plan Assess & Plan/Chief Complaint 1. Acute respiratory failure: Continue mechanical ventilation. Continue monitoring respiratory status. Continue cefdinir regimen. 2. UTI: Ruled out by urine culture. 3. Metabolic encephalopathy: Continue gentle hydration and correction of acute respiratory failure. 4. DVT prophylaxis: Continue Lovenox therapy. 5. Elevated troponin: Consult cardiology. Consider placement at [facility]. Clinical Quality Measures Admission Status Admission Dx 1. Acute respiratory failure: Continue BiPAP. Monitor O2 saturation and respi ratory status. 2. UTI: Continue vancomycin, cefepime regimen. 3. Metabolic encephalopathy: Continue gentle hydration and correction of acute respiratory failure. 4. DVT prophylaxis: Continue Lovenox therapy. 5. Elevated troponin: Consult cardiology. CINTIA LONG DO 11/07/22 0452: Assessment/Plan Assessment/Plan Assess & Plan/Chief Complaint Dispo pending Supervisory-Addendum Brief Verification & Attestation Participated in pt care: history, MDM, physical Personally performed: exam, history, MDM, supervision of care Care discussed with: Medical Student Procedures: n/a Results interpretation: Verified all documentation Verification and Attestation of Medical Student E/M Service A medical student performed and documented this service in my presence. I reviewed and verified all information documented by the medical student and made modifications to such information, when appropriate. I personally performed the physical exam and medical decision making. Cintia Long Nov 07, 2022,04:51 EMIR KAM Nov 06, 2022 10:02 CINTIA LONG DO Nov 07, 2022 04:52
[2022-11-06 10:45] VITALS: BP 126/57
[2022-11-06] MEDS: ENOXAPARIN 40 MG/0.4 ML (LOVENOX) SYR SC SCH ×2 (11:22→23:30)
--- NOTE | 2022-11-06 11:29 | Tele-ICU Progress Note ---
Subjective Subjective/Events-last exam (Tele-ICU Physician , consultation) Available chart/ vitals / labs / Images reviewed H&P is from ER notes Patient's information available about PMH, allergy reviewed in EMR. ROS as per chart and RN report Video assessment done using teleICU camera, rest of exam as per RN Discussed with RN. He is today remained on mechanical ventilation. Chest x-ray still showing cardiomegaly with the fluid overload. He is currently on mechanical ventilation with tidal volume 500/respiratory rate 16 FiO2 65% and PEEP of 10. Based on his clinical status and chest x-ray I do not think he is ready for SBT. cxr suggestive of right pleural effusion PUBLIC TRANSIT SPECIALIST tells me that family is considering placing in an LTAC. mpression 1. Acute hypoxic respiratory failure 2. Acute pulmonary edema only a minimal improvement. 3. COPD exacerbation. 4. Hypertension uncontrolled 5. Chronic kidney disease stage III 6. Obesity 7. Diabetes mellitus type 2. Recommendations 1. We deisy continue to wean fio2 as tolerated. 2. Continue IV Lasix per cardiology 3. Monitor electrolytes renal blood gases. 4. Control of blood pressure per cardiology 5. Antibiotics and diabetes management per primary care 6. DVT prophylaxis and ulcer prophylaxis. 7. ? transfer to LTAC per family. 8. consider US of chest and possible us guided thoracentesis on the Right Sepsis Event Evaluation Sepsis Event Evaluation Height, Weight, BMI Height: 5'10.00" Weight: 278lbs. 9.6oz. 126.412706bs; 86.36 BMI Method:Stated Exam Exam Patient acknowledged, consented, and participated in this virtual visit which was conducted using real time audio/video Vital Signs Date Time Temp Pulse Resp B/P (MAP) Pulse Ox O2 Delivery O2 Flow Rate FiO2 11/06/22 11:24 67 126/57 11/06/22 11:22 67 126/57 11/06/22 11:14 67 126/57 11/06/22 11:07 94 Mechanical Ventilator 65 11/06/22 10:45 67 16 89 65 11/06/22 10:00 68 16 121/53 (75) 88 Mechanical Ventilator 65.00 11/06/22 09:24 67 126/57 11/06/22 09:00 70 16 132/58 (82) 92 Mechanical Ventilator 65.00 11/06/22 08:00 71 16 125/53 (77) 90 Mechanical Ventilator 65.00 12/7/22 08:00 36.6 11/06/22 08:00 71 126/55 11/06/22 08:00 93 Mechanical Ventilator 65 11/06/22 07:45 71 126/55 11/06/22 07:29 71 126/55 11/06/22 07:05 72 11/06/22 07:00 72 16 129/57 (81) 91 Mechanical Ventilator 65.00 11/06/22 06:31 71 16 91 65 11/06/22 06:00 70 16 120/57 (78) 92 Mechanical Ventilator 65.00 11/06/22 05:24 69 146/61 11/06/22 05:00 65 16 93 11/06/22 05:00 70 16 137/59 (85) 91 Mechanical Ventilator 65.00 11/06/22 04:00 95 Mechanical Ventilator 65 11/06/22 04:00 70 16 126/55 (78) 92 Mechanical Ventilator 65.00 11/06/22 04:00 36.3 Mechanical Ventilator 65.00 11/06/22 03:45 69 146/61 11/06/22 03:29 69 146/61 11/06/22 03:16 69 16 92 65 11/06/22 03:00 68 16 142/60 (87) 91 Mechanical Ventilator 75.00 11/06/22 02:00 67 16 133/59 (83) 91 Mechanical Ventilator 75.00 11/06/22 01:00 67 11/06/22 01:00 67 16 142/55 (84) 91 Mechanical Ventilator 75.00 11/06/22 00:00 68 16 135/59 (84) 91 Mechanical Ventilator 75.00 11/06/22 00:00 36.8 75.00 11/05/22 23:59 95 Mechanical Ventilator 65 11/05/22 23:00 68 16 126/55 (78) 92 Mechanical Ventilator 75.00 11/05/22 22:58 67 130/55 11/05/22 22:57 67 130/55 11/05/22 22:19 67 16 92 65 11/05/22 22:00 68 16 135/54 (81) 92 Mechanical Ventilator 75.00 11/05/22 21:00 68 16 129/54 (79) 92 Mechanical Ventilator 75.00 11/05/22 20:00 Mechanical Ventilator 75.00 11/05/22 20:00 95 Mechanical Ventilator 65 11/05/22 20:00 68 16 126/54 (78) 92 Mechanical Ventilator 75.00 11/05/22 19:58 36.3 11/05/22 19:10 67 16 94 65 11/05/22 19:00 66 11/05/22 19:00 66 16 120/51 (74) 94 Mechanical Ventilator 60.00 11/05/22 18:06 73 151/65 11/05/22 18:04 73 151/65 11/05/22 18:00 61 16 193/79 (117) 92 Mechanical Ventilator 60.00 11/05/22 17:00 73 16 151/65 (93) 88 Mechanical Ventilator 60.00 11/05/22 16:51 73 172/75 11/05/22 16:42 73 172/75 11/05/22 16:42 73 172/75 11/05/22 16:10 95 Mechanical Ventilator 65 11/05/22 16:00 73 30 171/72 (105) 100 Mechanical Ventilator 60.00 11/05/22 15:54 36.9 11/05/22 15:00 73 15 172/75 (107) 100 Mechanical Ventilator 60.00 11/05/22 14:21 75 16 100 65 11/05/22 14:00 71 143/65 11/05/22 14:00 75 28 151/66 (94) 100 Mechanical Ventilator 60.00 11/05/22 13:20 78 11/05/22 13:00 78 16 121/59 (79) 100 Mechanical Ventilator 60.00 11/05/22 12:35 71 143/65 11/05/22 12:15 95 Mechanical Ventilator 60 11/05/22 12:00 73 16 143/65 (91) 100 Mechanical Ventilator 60.00 11/05/22 11:46 37.2 I & O 11/06/22 07:00 Intake Total 1880 ml Output Total 3225 ml Balance -1345 ml Height & Weight Height: 5'10.00" Weight: 278lbs. 9.6oz. 126.595143vw; 86.36 BMI Method:Stated General Appearance: WD/WN, Chronically ill, Moderate Distress, Obese, Other (on BiPAP) Respiratory: No Accessory Muscle Use, No Respiratory Distress, Decreased Breath Sounds (diffuse), Rhonci Cardiovascular: Regular Rate, Rhythm Capillary Refill: Less Than 3 Seconds Gastrointestinal: normal bowel sounds, non tender, soft, other (mild distension) Extremity: No Pedal Edema, Pedal Edema Neurologic/Psychiatric: Alert, Disoriented Results Lab Laboratory Tests 11/05/22 04:40 11/06/22 04:30 Assessment/Plan Assessment/Plan as above Critical Care: Ventilator Management Time spent with patient (mins): 30 CHICHI DRISCLOL MD Nov 06, 2022 11:29
[2022-11-06 14:31] VITALS: BP 126/55
--- NOTE | 2022-11-06 17:01 | Progress Note - Cardiology ---
Cardiology SOAP Progress Note Subjective: Intubated, on mech vent, non-communicative Objective: I&O/Vital Signs 11/06/22 11/06/22 11/06/22 11/06/22 05:24 06:00 06:31 07:00 Pulse 69 70 71 72 Resp 16 16 16 B/P (MAP) 146/61 120/57 (78) 129/57 (81) Pulse Ox 92 91 91 O2 Delivery Mechanical Ventilator Mechanical Ventilator O2 Flow Rate 65.00 65.00 FiO2 65 11/06/22 11/06/22 11/06/22 11/06/22 07:05 07:29 07:45 08:00 Pulse 72 71 71 B/P (MAP) 126/55 126/55 Pulse Ox 93 O2 Delivery Mechanical Ventilator FiO2 65 11/06/22 11/06/22 11/06/22 11/06/22 08:00 08:00 08:00 09:00 Temp 36.6 Pulse 71 71 70 Resp 16 16 B/P (MAP) 126/55 125/53 (77) 132/58 (82) Pulse Ox 90 92 O2 Delivery Mechanical Ventilator Mechanical Ventilator O2 Flow Rate 65.00 65.00 11/06/22 11/06/22 11/06/22 11/06/22 09:24 10:00 10:45 11:00 Pulse 67 68 67 69 Resp 16 16 16 B/P (MAP) 126/57 121/53 (75) 117/54 (75) Pulse Ox 88 89 89 O2 Delivery Mechanical Ventilator Mechanical Ventilator O2 Flow Rate 65.00 65.00 FiO2 65 11/06/22 11/06/22 11/06/22 11/06/22 11:07 11:14 11:22 11:24 Pulse 67 67 67 B/P (MAP) 126/57 126/57 126/57 Pulse Ox 94 O2 Delivery Mechanical Ventilator FiO2 65 11/06/22 11/06/22 11/06/22 11/06/22 12:00 12:00 12:49 13:00 Pulse 67 69 67 67 Resp 16 16 B/P (MAP) 126/57 120/54 (76) 126/57 122/57 (78) Pulse Ox 94 94 O2 Delivery Mechanical Ventilator Mechanical Ventilator O2 Flow Rate 65.00 65.00 11/06/22 11/06/22 11/06/22 11/06/22 13:20 14:00 14:31 15:00 Pulse 67 67 66 68 Resp 16 16 16 B/P (MAP) 116/54 (74) 124/53 (76) Pulse Ox 94 94 94 O2 Delivery Mechanical Ventilator Mechanical Ventilator O2 Flow Rate 65.00 65.00 FiO2 65 11/06/22 11/06/22 16:00 16:42 Temp 36.7 Pulse 67 Resp 16 B/P (MAP) 122/53 (76) Pulse Ox 94 O2 Delivery Mechanical Ventilator O2 Flow Rate 65.00 11/06/22 00:00 Intake Total 690 ml Output Total 1925 ml Balance -1235 ml Weight (Pounds): 278 Weight (Ounces): 9.6 Weight (Calculated Kilograms): 126.521556 Constitutional: other (Intubated, on [facility] vent, non-communicative) Respiratory: No accessory muscle use, No respiratory distress; other (fair air entry, basal coarse and fine crackles) Cardiovascular: regular rate-rhythm; No JVD; S1 and S2 Gastrointestional: No tender; soft, round, distended; No guarding; audible bowel sounds Extremities: swelling (mild, bilateral leg edema) Neurologic/Psychiatric: other (unable to cooperate with exam) Skin: No rash on exposed areas, No ulcerations on exposed areas; other (dressing to LLE which is D&I) Results/Procedures: Labs Laboratory Tests 11/05/22 17:26: Glucometer 196H 11/06/22 00:07: Glucometer 194H 11/06/22 04:30: White Blood Count 6.8, Red Blood Count 3.37L, Hemoglobin 9.7L, Hematocrit 31L, Mean Corpuscular Volume 92, Mean Corpuscular Hemoglobin 29, Mean Corpuscular Hemoglobin Concent 31L, Red Cell Distribution Width 15.9H, Platelet Count 277, Mean Platelet Volume 10.4, Immature Granulocyte % (Auto) 1, Neutrophils (%) (Auto) 69, Lymphocytes (%) (Auto) 15, Monocytes (%) (Auto) 10, Eosinophils (%) (Auto) 4, Basophils (%) (Auto) 1, Neutrophils # (Auto) 4.7, Lymphocytes # (Auto) 1.0, Monocytes # (Auto) 0.7, Eosinophils # (Auto) 0.3, Basophils # (Auto) 0.0, Immature Granulocyte # (Auto) 0.1, Blood Gas Puncture Site LEFT RADIAL, Blood Gas Patient Temperature 36.6, Arterial Blood pH 7.34*L, Arterial Blood Partial Pressure CO2 54H, Arterial Blood Partial Pressure O2 68L, Arterial Blood HCO3 28H, Arterial Blood Total CO2 30.0, Arterial Blood Oxygen Saturation 92L, Arterial Blood Base Excess 3.0H, Maurisio Test YES-POS, Blood Gas Ventilator Setting YES, Blood Gas Inspired Oxygen 65%, Sodium Level 141, Potassium Level 3.9, Chloride Level 105, Carbon Dioxide Level 25, Anion Gap 11, Blood Urea Nitrogen 28H, Creatinine 1.39H, Estimat Glomerular Filtration Rate 55, BUN/Creatinine Ratio 20, Glucose Level 206H, Calcium Level 8.8, Corrected Calcium 9.9, Phosphorus Level 3.4, Magnesium Level 1.6, Total Bilirubin 0.8, Aspartate Amino Transf (AST/SGOT) 33, Alanine Aminotransferase (ALT/SGPT) 14, Alkaline Phosphatase 68, Total Protein 6.7, Albumin 2.6L 11/06/22 13:01: Glucometer 213H Microbiology 10/29/22 Urine Culture - Final, Complete NO GROWTH 10/29/22 MRSA Screen - Final, Complete MRSA not isolated 10/28/22 Blood Culture - Final, Complete No growth Laboratory Tests 11/05/22 04:40 11/06/22 04:30 A/P: Assessment: Acute on chronic respiratory failure (multifactorial, see below) - worsening during this hosp, now on mech vent Obesity with hypoventilation syndrome and SIDNEY Acute on chronic exacerbation of COPD - due to pneumonia - 2 weeks post COVID Mild troponin elevation - probably type 2 OR due to transient hypoxia H/O seizures Coronary artery disease - history of CABG 6 done in 2012, has been followed by Dr. Adkins. History of multiple catheterizations and recalls having small vessel disease for which conservative management has been advised in the past per previous notes Acute on chronic systolic and diastolic congestive heart failure - Echo May [address] Duke showing left ventricular systolic function mildly reduced, EF 40-45%, grade 1 diastolic dysfunction. Dilated left atrium, pulmonary artery pressure of 25-30 mmHg. - Echo 10/29/22: LVEF 50-55%, grade 2 diastolic dysfunction, mild LAE Chronic kidney disease stage 3 - now (11/05/22) appears to be developing pre-renal azotemia due to diuretics (consider intravascular volume depletion) Hypertension Hyperlipidemia - h/o statin tx COPD Status post lumbar surgery done in May 2019, prolonged and complex recovery Diabetes mellitus Obesity History of tobaccoism Plan: * Complex management due to worsening resp failure and continuing mech vent (managed by Hosp and eICU svces) * Continue iv diuretics to treat decomp CHF, but may need to reduce dose if evidence or pre-renal azotemia (currently renal function appears stable) * Continue DAPT due to h/o CAD * Continue DVT prophylaxis due to considerable risk of DVT * Management of pneumonia / ac exac of COPD is with the Med svce * Replenish K * Monitor labs closely * Consider transfer to tertiary care hospital JONATHAN EPPERSON MD FACP FACC CCDS Nov 06, 2022 17:01
[2022-11-06 18:44] VITALS: BP 120/49
[2022-11-06 21:47] VITALS: BP 121/50
[2022-11-07] MEDS: RT-ALBUTEROL/IPRATROPIUM 3 ML (DUONEB) VIAL INH SCH ×5 (02:23→21:50)
[2022-11-07 02:24] VITALS: BP 123/54
[2022-11-07] MEDS: PROPOFOL DRIP (ICU) 100 ML IV SCH ×6 (03:14→23:22)
[2022-11-07] MEDS: inSUlin ASPART (NovoLOG) 1 UNIT/0.01 ML (CHARGE PER UNIT) SC SCH ×4 (03:15→18:35)
[2022-11-07 04:30] LABS: ABG BASE EXCESS 0.6 MMOL/L (-2.5-2.5); ABG OXYGEN SATURATION 92 % (94-100); ABG PCO2 51 MMHG (35-45); ABG PO2 64 MMHG (79-93); ABG TCO2 27.7 MMOL/L (21.0-31.0); ALLENS TEST YES-POS; INSPIRED O2 65%; PATIENT TEMP 36.6; VENTILATOR YES
[2022-11-07 04:30] LABS: BASOPHILS # (AUTO) 0.1 10^3/uL (0.0-0.1); BASOPHILS % (AUTO) 1 % (0-10); EOSINOPHILS # (AUTO) 0.4 10^3/uL (0.0-0.3); EOSINOPHILS % (AUTO) 5 % (0-10); HEMATOCRIT 29 % (40-54); HEMOGLOBIN 8.9 g/dL (13.3-17.7); LYMPHOCYTES # (AUTO) 1.3 10^3/uL (1.0-4.0); LYMPHOCYTES % (AUTO) 16 % (12-44); MEAN CORPUSCULAR HEMOGLOBIN 28 pg (25-34); MEAN CORPUSCULAR HGB CONC 30 g/dL (32-36); MEAN CORPUSCULAR VOLUME 93 fL (80-99); MEAN PLATELET VOLUME 10.4 fL (9.0-12.2); MONOCYTES # (AUTO) 0.8 10^3/uL (0.0-1.0); MONOCYTES % (AUTO) 11 % (0-12); NEUTROPHILS # (AUTO) 5.2 10^3/uL (1.8-7.8); NEUTROPHILS % (AUTO) 66 % (42-75); PLATELET COUNT 269 10^3/uL (130-400); WHITE BLOOD COUNT 7.9 10^3/uL (4.3-11.0)
[2022-11-07 04:31] LABS: ABG PH 7.32 (7.37-7.43)
[2022-11-07] MEDS: fentaNYL DRIP PRE-MIX 250 ML IV SCH ×3 (04:35→18:38)
[2022-11-07 04:46] LABS: ALBUMIN 2.4 GM/DL (3.2-4.5); POTASSIUM 4.4 MMOL/L (3.6-5.0)
[2022-11-07 04:47] LABS: CALCIUM 8.7 MG/DL (8.5-10.1)
[2022-11-07 04:49] LABS: TOTAL PROTEIN 6.5 GM/DL (6.4-8.2)
[2022-11-07 04:50] LABS: BILIRUBIN,TOTAL 1.1 MG/DL (0.1-1.0)
[2022-11-07 04:52] LABS: CREATININE SERUM 2.08 MG/DL (0.60-1.30); PHOSPHORUS 3.9 MG/DL (2.3-4.7)
[2022-11-07 04:55] LABS: MAGNESIUM 1.8 MG/DL (1.6-2.4)
[2022-11-07] MEDS: KCL 20 MEQ TAB (K-DUR) PO SCH (05:20)
[2022-11-07] MEDS: POTASSIUM CL 10MEQ/50ML IVPB 50 ML IV SCH (05:20)
[2022-11-07] MEDS: MAGNESIUM 1 GM/100 ML IVPB 100 ML IV SCH (05:20)
[2022-11-07] MEDS: NOREPINEPHRINE 8 MG/250 ML 250 ML IV SCH ×2 (06:20→17:03)
[2022-11-07] MEDS: FUROSEMIDE 40 MG/4 ML INJ (LASIX) IVP SCH (06:25)
--- NOTE | 2022-11-07 06:41 | Occ Therapy Progress Note ---
Therapy Progress Note Pt currently intubated. OT to monitor pt's status then will initiate treatment when pt is medically stable and able to actively participate in skilled therapy. AMANDA WEINER Nov 07, 2022 06:41
[2022-11-07 07:15] VITALS: BP 125/59
--- NOTE | 2022-11-07 07:35 | Physical Therapy Progress Note ---
Therapy Progress Note Pt remains sedated on ventilator. Physical therapy will continue to follow daily and as patient becomes conscious, therapy will begin treatment. OTIS BALDWIN PT Nov 07, 2022 07:35
--- NOTE | 2022-11-07 08:55 | Tele-ICU Progress Note ---
Subjective Date Seen by a Provider: Nov 07, 2022 Time Seen by a Provider: 08:50 Subjective/Events-last exam Available chart/ vitals / labs / Images reviewed H&P is from ER notes, RN and progress notes Patient's information available about PMH, allergy reviewed in EMR. ROS as per chart and RN report Video assessment done using teleICU camera, rest of exam as per RN Discussed with RN. Remains on vent AC 16 Vt 500 FiO2 655 PEEP10, off levophed, On Precedex 0.8, Fentanyl @ 200, May be cause of hypomotility of bowel Propofol, @ 39 I reivewed CXR which shows RLL PNA, obesity with elevated diaphragms getting cefdinir Nurses note no bowel sounds and no BM, TF have been stopped. will get KUB Has PICC line, site look ok Sepsis Event Evaluation Height, Weight, BMI Height: 5'10.00" Weight: 278lbs. 9.6oz. 126.762352bx; 86.36 BMI Method:Stated Exam Exam Patient acknowledged, consented, and participated in this virtual visit which was conducted using real time audio/video Vital Signs Date Time Temp Pulse Resp B/P (MAP) Pulse Ox O2 Delivery O2 Flow Rate FiO2 11/07/22 08:00 38.0 11/07/22 06:42 70 119/57 11/07/22 06:00 70 16 119/57 (77) 93 Mechanical Ventilator 65.00 11/07/22 05:00 71 16 127/57 (80) 92 Mechanical Ventilator 65.00 11/07/22 05:00 65 16 93 11/07/22 04:35 64 123/54 11/07/22 04:00 93 Mechanical Ventilator 65 11/07/22 04:00 64 16 107/50 (69) 95 Mechanical Ventilator 65.00 11/07/22 03:14 64 123/54 11/07/22 03:00 66 16 123/54 (77) 95 Mechanical Ventilator 65.00 11/07/22 02:24 64 16 95 65 11/07/22 02:00 64 16 124/50 (74) 95 Mechanical Ventilator 65.00 11/07/22 01:00 64 16 119/53 (75) 95 Mechanical Ventilator 65.00 11/07/22 00:51 64 11/07/22 00:00 65 16 121/53 (75) 95 Mechanical Ventilator 65.00 11/06/22 23:59 93 Mechanical Ventilator 65 11/06/22 23:58 36.7 11/06/22 23:00 67 16 122/53 (76) 95 Mechanical Ventilator 65.00 11/06/22 22:11 65 121/50 11/06/22 22:10 65 121/50 11/06/22 22:00 66 16 126/54 (78) 95 Mechanical Ventilator 65.00 11/06/22 21:47 65 16 95 65 11/06/22 21:34 68 120/49 11/06/22 21:00 65 16 121/50 (73) 95 Mechanical Ventilator 65.00 11/06/22 20:00 93 Mechanical Ventilator 65 11/06/22 20:00 67 16 122/52 (75) 95 Mechanical Ventilator 65.00 11/06/22 20:00 36.9 11/06/22 19:00 68 11/06/22 19:00 67 16 121/50 (73) 95 Mechanical Ventilator 65.00 11/06/22 18:44 66 16 96 65 11/06/22 18:00 66 17 120/52 (74) 96 Mechanical Ventilator 65.00 11/06/22 17:11 66 131/53 11/06/22 17:10 66 131/53 11/06/22 17:00 66 16 131/53 (79) 95 Mechanical Ventilator 65.00 11/06/22 16:49 66 131/53 11/06/22 16:42 36.7 11/06/22 16:00 67 16 122/53 (76) 94 Mechanical Ventilator 65.00 11/06/22 16:00 93 Mechanical Ventilator 65 11/06/22 15:24 66 131/53 11/06/22 15:22 66 131/53 11/06/22 15:00 68 16 124/53 (76) 94 Mechanical Ventilator 65.00 11/06/22 14:31 66 16 94 65 11/06/22 14:00 67 16 116/54 (74) 94 Mechanical Ventilator 65.00 11/06/22 13:20 67 11/06/22 13:00 67 16 122/57 (78) 94 Mechanical Ventilator 65.00 11/06/22 12:49 67 126/57 11/06/22 12:00 69 16 120/54 (76) 94 Mechanical Ventilator 65.00 11/06/22 12:00 67 126/57 11/06/22 11:24 67 126/57 11/06/22 11:22 67 126/57 11/06/22 11:14 67 126/57 11/06/22 11:07 94 Mechanical Ventilator 65 11/06/22 11:00 69 16 117/54 (75) 89 Mechanical Ventilator 65.00 11/06/22 10:45 67 16 89 65 11/06/22 10:00 68 16 121/53 (75) 88 Mechanical Ventilator 65.00 11/06/22 09:24 67 126/57 11/06/22 09:00 70 16 132/58 (82) 92 Mechanical Ventilator 65.00 I & O 11/07/22 07:00 Intake Total 1380 ml Output Total 1075 ml Balance 305 ml Height & Weight Height: 5'10.00" Weight: 278lbs. 9.6oz. 126.214043pw; 86.36 BMI Method:Stated General Appearance: WD/WN, Chronically ill, Moderate Distress, Obese, Other (on BiPAP) Respiratory: No Accessory Muscle Use, No Respiratory Distress, Decreased Breath Sounds (diffuse), Rhonci Cardiovascular: Regular Rate, Rhythm Capillary Refill: Less Than 3 Seconds Gastrointestinal: normal bowel sounds, non tender, soft, other (mild distension persists, no bowel sounds today) Extremity: No Pedal Edema, Pedal Edema, Other (+ 1 andle edeam in both legs) Neurologic/Psychiatric: Alert, Disoriented, Other (RASS -3) Results Lab Laboratory Tests 11/06/22 04:30 11/07/22 04:15 Assessment/Plan Assessment/Plan Acute hypoxic resp failure, needs full vent support, No SBT today, secretions are mild, does have cough refle will try sedation holiday, especially Fentnyl, morbid obersity-no change Critical Care: Ventilator Management Time spent with patient (mins): 30 SHANNAN PARIKH MD Nov 07, 2022 08:55
[2022-11-07] MEDS: DexMEDEtomidine 250 ML DRIP 250 ML IV SCH ×2 (08:57→19:48)
[2022-11-07] MEDS: DOCUSATE SODIUM 10 MG/ML 10 ML UDC (COLACE) PO SCH ×2 (08:58→23:22)
[2022-11-07] MEDS: CLOPIDOGREL 75 MG (PLAVIX) TABLET PO SCH (08:58)
[2022-11-07] MEDS: ASPIRIN 81 MG CHEW (CHILDREN'S ASA) PO SCH (08:58)
[2022-11-07] MEDS: PANTOPRAZOLE 40 MG (PROTONIX) VIAL IV SCH (08:58)
[2022-11-07] MEDS: amLODIPine 5 MG (NORVASC) TAB PO SCH (08:58)
[2022-11-07] MEDS: SENNOSIDES 8.6 MG (SENOKOT) TAB PO SCH ×2 (08:59→23:22)
[2022-11-07] MEDS: meTOprolol TARTRATE 25 MG (LOPRESSOR) TABLET PO SCH ×2 (08:59→23:22)
[2022-11-07] MEDS: NS IV 1000 ML 1,000 ML IV SCH (09:26)
--- NOTE | 2022-11-07 09:34 | Diagnostic Imaging Report ---
INDICATION: Congestive failure with respiratory distress. Comparison with 11/06/2022. FINDINGS: ET tube and NG tube remain present as well as right PICC line. There has been increase in bilateral alveolar infiltrates with increasing right basilar atelectasis. Cardiomegaly with median sternotomy changes again noted. No pneumothorax. Could not exclude small pleural effusion on the right. IMPRESSION: Findings are consistent with chronic congestive failure with increasing atelectasis and infiltrate since previous exam. Dictated by: Dictated on workstation # [id number]
--- NOTE | 2022-11-07 09:50 | Progress Note - Cardiology ---
Cardiology SOAP Progress Note Subjective: Remains intubated and sedated Objective: I&O/Vital Signs 11/07/22 11/07/22 11/07/22 11/07/22 21:00 21:50 22:00 23:00 Pulse 61 61 63 63 Resp 16 16 16 16 B/P (MAP) 122/54 (76) 121/59 (79) 135/64 (87) Pulse Ox 90 90 91 90 O2 Delivery Mechanical Ventilator Mechanical Ventilator Mechanical Ventilator O2 Flow Rate 75.00 75.00 75.00 FiO2 75 11/07/22 11/07/22 11/08/22 11/08/22 23:22 23:59 00:00 01:00 Pulse 61 62 63 Resp 16 16 B/P (MAP) 122/54 125/55 (78) 126/57 (80) Pulse Ox 92 89 90 O2 Delivery Mechanical Ventilator Mechanical Ventilator Mechanical Ventilator O2 Flow Rate 75.00 75.00 FiO2 75 11/08/22 11/08/22 11/08/22 11/08/22 01:00 02:00 02:20 03:00 Pulse 63 63 63 65 Resp 16 16 16 B/P (MAP) 121/59 (79) 126/54 (78) Pulse Ox 90 91 89 O2 Delivery Mechanical Ventilator Mechanical Ventilator O2 Flow Rate 75.00 75.00 FiO2 75 11/08/22 11/08/22 11/08/22 11/08/22 03:47 04:00 04:00 04:00 Temp 37.2 Pulse 63 64 Resp 16 B/P (MAP) 121/59 123/57 (79) Pulse Ox 91 89 O2 Delivery Mechanical Ventilator Mechanical Ventilator O2 Flow Rate 75.00 FiO2 75 11/08/22 11/08/22 11/08/22 11/08/22 05:00 05:00 05:50 06:00 Pulse 66 65 65 64 Resp 17 16 17 B/P (MAP) 117/55 (75) 123/57 120/54 (76) Pulse Ox 89 93 89 O2 Delivery Mechanical Ventilator Mechanical Ventilator O2 Flow Rate 75.00 75.00 11/08/22 11/08/22 11/08/22 11/08/22 06:34 07:00 07:00 07:16 Pulse 665 66 67 67 Resp 16 13 B/P (MAP) 126/57 (80) 117/56 Pulse Ox 89 89 O2 Delivery Mechanical Ventilator O2 Flow Rate 75.00 FiO2 75 11/08/22 11/08/22 11/08/22 11/08/22 07:26 07:29 07:57 07:59 Temp 36.5 Pulse 67 67 B/P (MAP) 117/56 117/56 Pulse Ox 90 O2 Delivery Mechanical Ventilator FiO2 75 11/08/22 08:00 Pulse 67 Resp 16 B/P (MAP) 113/53 (73) Pulse Ox 91 O2 Delivery Mechanical Ventilator O2 Flow Rate 75.00 11/08/22 00:00 Intake Total 450 ml Output Total 850 ml Balance -400 ml Weight (Pounds): 278 Weight (Ounces): 9.6 Weight (Calculated Kilograms): 126.264550 Constitutional: other (Intubated, on mech vent, non-communicative) Respiratory: No accessory muscle use, No respiratory distress; other (fair air entry, basal coarse and fine crackles) Cardiovascular: regular rate-rhythm; No JVD; S1 and S2 Gastrointestional: No tender; soft, round, distended; No guarding; audible bowel sounds Extremities: swelling (mild, bilateral leg edema) Neurologic/Psychiatric: other (unable to cooperate with exam) Skin: No rash on exposed areas, No ulcerations on exposed areas; other (dressing to LLE which is D&I) Results/Procedures: Labs Laboratory Tests 11/07/22 11:37: Glucometer 175H 11/07/22 17:45: Glucometer 166H 11/08/22 04:55: White Blood Count 8.4, Red Blood Count 2.92L, Hemoglobin 8.7L, Hematocrit 27L, Mean Corpuscular Volume 93, Mean Corpuscular Hemoglobin 30, Mean Corpuscular Hemoglobin Concent 32, Red Cell Distribution Width 16.0H, Platelet Count 289, Mean Platelet Volume 11.0, Immature Granulocyte % (Auto) 3, Neutrophils (%) (Auto) 71, Lymphocytes (%) (Auto) 14, Monocytes (%) (Auto) 9, Eosinophils (%) (Auto) 3, Basophils (%) (Auto) 1, Neutrophils # (Auto) 5.9, Lymphocytes # (Auto) 1.2, Monocytes # (Auto) 0.7, Eosinophils # (Auto) 0.3, Basophils # (Auto) 0.1, Immature Granulocyte # (Auto) 0.2H, Sodium Level 138, Potassium Level 4.2, Chloride Level 106, Carbon Dioxide Level 19L, Anion Gap 13, Blood Urea Nitrogen 35H, Creatinine 2.01H, Estimat Glomerular Filtration Rate 35, BUN/Creatinine Ratio 17, Glucose Level 170H, Calcium Level 8.2L, Corrected Calcium 9.6, Phosphorus Level 4.1, Magnesium Level 1.9, Total Bilirubin 1.0, Aspartate Amino Transf (AST/SGOT) 41H, Alanine Aminotransferase (ALT/SGPT) 26, Alkaline Phosphatase 74, Total Protein 6.5, Albumin 2.2L 11/08/22 05:00: Blood Gas Puncture Site L RAD, Blood Gas Patient Temperature 37.2, Arterial Blood pH 7.30*L, Arterial Blood Partial Pressure CO2 51H, Arterial Blood Partial Pressure O2 73L, Arterial Blood HCO3 24, Arterial Blood Total CO2 25.6, Arterial Blood Oxygen Saturation 92L, Arterial Blood Base Excess -1.5, Maurisio Test YES- POS, Blood Gas Ventilator Setting YES, Blood Gas Inspired Oxygen 75% Microbiology 10/29/22 Urine Culture - Final, Complete NO GROWTH 10/29/22 MRSA Screen - Final, Complete MRSA not isolated 10/28/22 Blood Culture - Final, Complete No growth A/P: Assessment: Acute on chronic respiratory failure (multifactorial, see below) - worsening during this hosp, now on mech vent Obesity with hypoventilation syndrome and SIDNEY Acute on chronic exacerbation of COPD - due to pneumonia - 2 weeks post COVID Mild troponin elevation - probably type 2 MD due to transient hypoxia H/O seizures Coronary artery disease - history of CABG 6 done in 2012, has been followed by Dr. Adkins. History of multiple catheterizations and recalls having small vessel disease for which conservative management has been advised in the past per previous notes Acute on chronic systolic and diastolic congestive heart failure - Echo May [address] Duke showing left ventricular systolic function mildly reduced, EF 40-45%, grade 1 diastolic dysfunction. Dilated left atrium, pulmonary artery pressure of 25-30 mmHg. - Echo 10/29/22: LVEF 50-55%, grade 2 diastolic dysfunction, mild LAE Chronic kidney disease stage 3 - again appears to be developing pre-renal azotemia due to diuretics (consider intravascular volume depletion) - reducse dose Hypertension Hyperlipidemia - h/o statin tx COPD Status post lumbar surgery done in May 2019, prolonged and complex recovery Diabetes mellitus Obesity History of tobaccoism Plan: * Complex management due to worsening resp failure and continuing mech vent (managed by Hosp and eICU svces) * Renal function worsening - likely in some d/t intravascular vol depletion d/t aggressive diuresis - reduce dose * Continue DAPT due to h/o CAD * Continue DVT prophylaxis due to considerable risk of DVT * Management of pneumonia / ac exac of COPD is with the Med svce * Replenish K * Monitor labs closely * Consider transfer to tertiary care hospital DEON STANLEY Nov 07, 2022 09:50
[2022-11-07 10:15] VITALS: BP 166/77
[2022-11-07] MEDS: ENOXAPARIN 40 MG/0.4 ML (LOVENOX) SYR SC SCH (10:53)
--- NOTE | 2022-11-07 12:11 | Progress Note ---
EMIR KAM 11/07/22 1211: Subjective Date Seen by a Provider: Nov 07, 2022 Time Seen by a Provider: 10:15 Subjective/Events-last exam Florentino Meehan is a 71 yo male who was admitted to the ICU for acute respiratory failure ultimately requiring intubation on 11/01. The patient's VS remain stable at time of evaluation today. Ventilator settings are TV 500, Rate 16, PEEP 10.0, FiO2 65%. Labs are significant for HGB 8.9, BUN 34, Creat 2.08, Total Bilirubin 1.1, AST 60, Albumin 2.4. ABG revealed pH 7.32, pCO2 51, pO2 64. CXR radiology report reads improving CHF and pulmonary edema with right lung base infiltrate secondary to pneumonitis or pneumonia. The patient is sedated and unable to provide further history. The patient's daughter is present at bedside at 1015. Dr. Law had extensive discussion regarding transfer options to [facility] and the likely necessity of a tracheotomy and PEG placement. Review of Systems Unable to obtain due to patient's condition. Objective Exam Last Set of Vital Signs Vital Signs Date Time Temp Pulse Resp B/P (MAP) Pulse Ox O2 Delivery O2 Flow Rate FiO2 11/07/22 11:53 37.6 11/07/22 11:28 79 176/83 11/07/22 10:15 19 93 65 11/07/22 10:00 Mechanical Ventilator 65.00 Capillary Refill : Less Than 3 Seconds I&O Intake and Output 11/07/22 00:00 Intake Total 1380 ml Output Total 1375 ml Balance 5 ml Intake Oral 0 ml Tube Feeding 1200 ml Other 180 ml Output Urine Total 1375 ml General: Other (Sedated on mechanical ventilator) HEENT: Atraumatic Lungs: Other (Diffuse right-sided rhonchi.) Heart: Regular Rate, Normal S1, Normal S2, No Murmurs Extremities: No Edema, Normal Pulses Neuro: Other (Sedated) Results Lab Laboratory Tests 11/06/22 13:01: Glucometer 213H 11/06/22 18:27: Glucometer 187H 11/07/22 04:15: White Blood Count 7.9, Red Blood Count 3.16L, Hemoglobin 8.9L, Hematocrit 29L, Mean Corpuscular Volume 93, Mean Corpuscular Hemoglobin 28, Mean Corpuscular Hemoglobin Concent 30L, Red Cell Distribution Width 16.0H, Platelet Count 269, Mean Platelet Volume 10.4, Immature Granulocyte % (Auto) 2, Neutrophils (%) (Auto) 66, Lymphocytes (%) (Auto) 16, Monocytes (%) (Auto) 11, Eosinophils (%) (Auto) 5, Basophils (%) (Auto) 1, Neutrophils # (Auto) 5.2, Lymphocytes # (Auto) 1.3, Monocytes # (Auto) 0.8, Eosinophils # (Auto) 0.4H, Basophils # (Auto) 0.1, Immature Granulocyte # (Auto) 0.1, Sodium Level 140, Potassium Level 4.4, Chloride Level 106, Carbon Dioxide Level 23, Anion Gap 11, Blood Urea Nitrogen 34H, Creatinine 2.08H, Estimat Glomerular Filtration Rate 34, BUN/Creatinine Ratio 16, Glucose Level 192H, Calcium Level 8.7, Corrected Calcium 10.0, Phosphorus Level 3.9, Magnesium Level 1.8, Total Bilirubin 1.1H, Aspartate Amino Transf (AST/SGOT) 60H, Alanine Aminotransferase (ALT/SGPT) 17, Alkaline Phosphatase 70, Total Protein 6.5, Albumin 2.4L, Triglycerides Level 174H 11/07/22 04:22: Blood Gas Puncture Site LRAD, Blood Gas Patient Temperature 36.6, Arterial Blood pH 7.32*L, Arterial Blood Partial Pressure CO2 51H, Arterial Blood Partial Pressure O2 64L, Arterial Blood HCO3 26, Arterial Blood Total CO2 27.7, Arterial Blood Oxygen Saturation 92L, Arterial Blood Base Excess 0.6, Maurisio Test YES-POS, Blood Gas Ventilator Setting YES, Blood Gas Inspired Oxygen 65% 11/07/22 11:37: Glucometer 175H Microbiology 10/29/22 Urine Culture - Final, Complete NO GROWTH 10/29/22 MRSA Screen - Final, Complete MRSA not isolated 10/28/22 Blood Culture - Final, Complete No growth Radiology Date of Exam:11/07/22 CHEST 1 VIEW, AP/PA ONLY Comparison with 11/06/2022. IMPRESSION: Findings are consistent with chronic congestive failure with increasing atelectasis and infiltrate since previous exam. Assessment/Plan Assessment/Plan Assess & Plan/Chief Complaint 1. Acute respiratory failure: Continue mechanical ventilation. Continue monitoring respiratory status. Continue cefdinir regimen. 2. UTI: Ruled out by urine culture. 3. Metabolic encephalopathy: Continue gentle hydration and correction of acute respiratory failure. 4. DVT prophylaxis: Continue Lovenox therapy. 5. Elevated troponin: Consult cardiology. 6. Elevated BUN, Creatinine: Continue IV hydration. Recheck CMP in 24 hours. Seek placement at [facility]. Clinical Quality Measures Admission Status Admission Dx 1. Acute respiratory failure: Continue BiPAP. Monitor O2 saturation and respiratory status. 2. UTI: Continue vancomycin, cefepime regimen. 3. Metabolic encephalopathy: Continue gentle hydration and correction of acute respiratory failure. 4. DVT prophylaxis: Continue Lovenox therapy. 5. Elevated troponin: Consult cardiology. CINTIA LAW DO 11/08/22 0441: Assessment/Plan Assessment/Plan Assess & Plan/Chief Complaint peg trach Supervisory-Addendum Brief Verification & Attestation Participated in pt care: history, MDM, physical Personally performed: exam, history, MDM, supervision of care Care discussed with: Medical Student Procedures: n/a Results interpretation: Verified all documentation Verification and Attestation of Medical Student E/M Service A medical student performed and documented this service in my presence. I reviewed and verified all information documented by the medical student and made modifications to such information, when appropriate. I personally performed the physical exam and medical decision making. Cintia Law, Nov 08, 2022,04:41 EMIR KAM Nov 07, 2022 12:11 CINTIA LAW DO Nov 08, 2022 04:41
--- NOTE | 2022-11-07 12:23 | Diagnostic Imaging Report ---
Indication: Abdominal distention Abdominal film obtained at 11:50 a.m. NG tube tip overlies the mid stomach. Bowel gas pattern is unremarkable. There are postop changes in the lumbar spine. IMPRESSION: No overt obstruction or ileus. NG tube tip overlying the mid stomach. Dictated by: Dictated on workstation # [id number]
[2022-11-07 14:15] VITALS: BP 114/46
--- NOTE | 2022-11-07 15:37 | Progress Note - Cardiology ---
Cardiology SOAP Progress Note Subjective: Remains intubated, on mech vent, and non-communicative Objective: I&O/Vital Signs 11/07/22 11/07/22 11/07/22 11/07/22 04:00 04:00 04:35 05:00 Pulse 64 64 65 Resp 16 16 B/P (MAP) 107/50 (69) 123/54 Pulse Ox 95 93 93 O2 Delivery Mechanical Ventilator Mechanical Ventilator O2 Flow Rate 65.00 FiO2 65 11/07/22 11/07/22 11/07/22 11/07/22 05:00 06:00 06:42 07:00 Pulse 71 70 70 69 Resp 16 16 16 B/P (MAP) 127/57 (80) 119/57 (77) 119/57 124/57 (79) Pulse Ox 92 93 93 O2 Delivery Mechanical Ventilator Mechanical Ventilator Mechanical Ventilator O2 Flow Rate 65.00 65.00 65.00 11/07/22 11/07/22 11/07/22 11/07/22 07:23 08:00 08:00 08:00 Temp 38.0 Pulse 68 69 Resp 16 B/P (MAP) 110/51 (70) Pulse Ox 94 O2 Delivery Mechanical Ventilator Mechanical Ventilator O2 Flow Rate 65.00 FiO2 65 11/07/22 11/07/22 11/07/22 11/07/22 08:57 08:59 09:00 10:00 Pulse 70 70 69 68 Resp 16 16 B/P (MAP) 119/57 119/57 117/52 (73) 114/55 (74) Pulse Ox 94 95 O2 Delivery Mechanical Ventilator Mechanical Ventilator O2 Flow Rate 65.00 65.00 11/07/22 11/07/22 11/07/22 11/07/22 10:15 10:51 11:00 11:27 Pulse 79 68 78 83 Resp 19 16 B/P (MAP) 114/55 114/75 (88) 176/83 Pulse Ox 93 93 O2 Delivery Mechanical Ventilator O2 Flow Rate 65.00 FiO2 65 11/07/22 11/07/22 11/07/22 11/07/22 11:28 11:53 12:00 12:00 Temp 37.6 Pulse 79 68 Resp 16 B/P (MAP) 176/83 109/52 (71) Pulse Ox 94 92 O2 Delivery Mechanical Ventilator Mechanical Ventilator O2 Flow Rate 65.00 FiO2 65 1211/07/22 11/07/22 11/07/22 12:51 13:00 14:20 14:57 Pulse 66 66 66 66 Resp 16 B/P (MAP) 123/57 (79) 123/57 123/57 Pulse Ox 95 O2 Delivery Mechanical Ventilator O2 Flow Rate 65.00 11/07/22 11/07/22 15:18 15:18 Pulse 66 66 B/P (MAP) 123/57 123/57 11/07/22 00:00 Intake Total 690 ml Output Total 550 ml Balance 140 ml Weight (Pounds): 278 Weight (Ounces): 9.6 Weight (Calculated Kilograms): 126.396697 Constitutional: other (Intubated, on [facility] vent, non-communicative) Respiratory: No accessory muscle use, No respiratory distress; other (fair air entry, basal coarse and fine crackles) Cardiovascular: regular rate-rhythm; No JVD; S1 and S2 Gastrointestional: No tender; soft, round, distended; No guarding; audible bowel sounds Extremities: swelling (mild, bilateral leg edema) Neurologic/Psychiatric: other (unable to cooperate with exam) Skin: No rash on exposed areas, No ulcerations on exposed areas; other (dressing to LLE which is D&I) Results/Procedures: Labs Laboratory Tests 11/06/22 18:27: Glucometer 187H 11/07/22 04:15: White Blood Count 7.9, Red Blood Count 3.16L, Hemoglobin 8.9L, Hematocrit 29L, Mean Corpuscular Volume 93, Mean Corpuscular Hemoglobin 28, Mean Corpuscular Hemoglobin Concent 30L, Red Cell Distribution Width 16.0H, Platelet Count 269, Mean Platelet Volume 10.4, Immature Granulocyte % (Auto) 2, Neutrophils (%) (Auto) 66, Lymphocytes (%) (Auto) 16, Monocytes (%) (Auto) 11, Eosinophils (%) (Auto) 5, Basophils (%) (Auto) 1, Neutrophils # (Auto) 5.2, Lymphocytes # (Auto) 1.3, Monocytes # (Auto) 0.8, Eosinophils # (Auto) 0.4H, Basophils # (Auto) 0.1, Immature Granulocyte # (Auto) 0.1, Sodium Level 140, Potassium Level 4.4, Chloride Level 106, Carbon Dioxide Level 23, Anion Gap 11, Blood Urea Nitrogen 34H, Creatinine 2.08H, Estimat Glomerular Filtration Rate 34, BUN/Creatinine Ratio 16, Glucose Level 192H, Calcium Level 8.7, Corrected Calcium 10.0, Phosphorus Level 3.9, Magnesium Level 1.8, Total Bilirubin 1.1H, Aspartate Amino Transf (AST/SGOT) 60H, Alanine Aminotransferase (ALT/SGPT) 17, Alkaline Phosphatase 70, Total Protein 6.5, Albumin 2.4L, Triglycerides Level 174H 11/07/22 04:22: Blood Gas Puncture Site LRAD, Blood Gas Patient Temperature 36.6, Arterial Blood pH 7.32*L, Arterial Blood Partial Pressure CO2 51H, Arterial Blood Partial Pressure O2 64L, Arterial Blood HCO3 26, Arterial Blood Total CO2 27.7, Arterial Blood Oxygen Saturation 92L, Arterial Blood Base Excess 0.6, Maurisio Test YES-POS, Blood Gas Ventilator Setting YES, Blood Gas Inspired Oxygen 65% 11/07/22 11:37: Glucometer 175H Microbiology 10/29/22 Urine Culture - Final, Complete NO GROWTH 10/29/22 MRSA Screen - Final, Complete MRSA not isolated 10/28/22 Blood Culture - Final, Complete No growth Laboratory Tests 11/06/22 04:30 11/07/22 04:15 A/P: Assessment: Acute on chronic respiratory failure (multifactorial, see below) - worsening during this hosp, now on mech vent Obesity with hypoventilation syndrome and SIDNEY Acute on chronic exacerbation of COPD - due to pneumonia - 2 weeks post COVID Mild troponin elevation - probably type 2 [place] due to transient hypoxia H/O seizures Coronary artery disease - history of CABG 6 done in 2012, has been followed by Dr. Adkins. History of multiple catheterizations and recalls having small vessel disease for which conservative management has been advised in the past per previous notes Acute on chronic systolic and diastolic congestive heart failure - Echo May [address] Dkue showing left ventricular systolic function mildly reduced, EF 40-45%, grade 1 diastolic dysfunction. Dilated left atrium, pulmonary artery pressure of 25-30 mmHg. - Echo 10/29/22: LVEF 50-55%, grade 2 diastolic dysfunction, mild LAE Chronic kidney disease stage 3 - again appears to be developing pre-renal azotemia due to diuretics (intravascular volume depletion) - reduce dose Hypertension Hyperlipidemia - h/o statin tx COPD Status post lumbar surgery done in May 2019, prolonged and complex recovery Diabetes mellitus Obesity History of tobaccoism Plan: * Complex management due to worsening resp failure and continuing mech vent (managed by Hosp and eICU svces) * Renal function worsening - likely in some d/t intravascular vol depletion d/t aggressive diuresis - reduce dose * Continue DAPT due to h/o CAD * Continue DVT prophylaxis due to considerable risk of DVT * Management of pneumonia / ac exac of COPD is with the Med svce * Replenish K * Monitor labs closely * Consider transfer to tertiary care hospital JONATHAN EPPERSON MD FACP FAC CCDS Nov 07, 2022 15:37
[2022-11-07 18:43] VITALS: BP 121/56
[2022-11-07 21:50] VITALS: BP 122/54
[2022-11-08] MEDS: inSUlin ASPART (NovoLOG) 1 UNIT/0.01 ML (CHARGE PER UNIT) SC SCH ×5 (00:50→23:53)
[2022-11-08 02:20] VITALS: BP 121/59
[2022-11-08] MEDS: RT-ALBUTEROL/IPRATROPIUM 3 ML (DUONEB) VIAL INH SCH ×6 (02:20→22:20)
[2022-11-08] MEDS: NS IV 1000 ML 1,000 ML IV SCH ×2 (02:35→18:10)
[2022-11-08] MEDS: PROPOFOL DRIP (ICU) 100 ML IV SCH ×6 (03:47→23:47)
[2022-11-08 05:02] LABS: BASOPHILS # (AUTO) 0.1 10^3/uL (0.0-0.1); BASOPHILS % (AUTO) 1 % (0-10); EOSINOPHILS # (AUTO) 0.3 10^3/uL (0.0-0.3); EOSINOPHILS % (AUTO) 3 % (0-10); HEMATOCRIT 27 % (40-54); HEMOGLOBIN 8.7 g/dL (13.3-17.7); LYMPHOCYTES # (AUTO) 1.2 10^3/uL (1.0-4.0); LYMPHOCYTES % (AUTO) 14 % (12-44); MEAN CORPUSCULAR HEMOGLOBIN 30 pg (25-34); MEAN CORPUSCULAR HGB CONC 32 g/dL (32-36); MEAN CORPUSCULAR VOLUME 93 fL (80-99); MONOCYTES # (AUTO) 0.7 10^3/uL (0.0-1.0); MONOCYTES % (AUTO) 9 % (0-12); NEUTROPHILS # (AUTO) 5.9 10^3/uL (1.8-7.8); NEUTROPHILS % (AUTO) 71 % (42-75); PLATELET COUNT 289 10^3/uL (130-400); WHITE BLOOD COUNT 8.4 10^3/uL (4.3-11.0)
[2022-11-08 05:10] LABS: ABG BASE EXCESS -1.5 MMOL/L (-2.5-2.5); ABG OXYGEN SATURATION 92 % (94-100); ABG PCO2 51 MMHG (35-45); ABG PO2 73 MMHG (79-93); ABG TCO2 25.6 MMOL/L (21.0-31.0)
[2022-11-08 05:12] LABS: ALLENS TEST YES-POS; INSPIRED O2 75%; PATIENT TEMP 37.2; VENTILATOR YES
[2022-11-08 05:31] LABS: ALBUMIN 2.2 GM/DL (3.2-4.5); CALCIUM 8.2 MG/DL (8.5-10.1); CREATININE SERUM 2.01 MG/DL (0.60-1.30); MAGNESIUM 1.9 MG/DL (1.6-2.4); PHOSPHORUS 4.1 MG/DL (2.3-4.7); POTASSIUM 4.2 MMOL/L (3.6-5.0); TOTAL PROTEIN 6.5 GM/DL (6.4-8.2)
[2022-11-08] MEDS: NOREPINEPHRINE 8 MG/250 ML 250 ML IV SCH ×3 (05:32→22:48)
[2022-11-08] MEDS: POTASSIUM CL 10MEQ/50ML IVPB 50 ML IV SCH (05:32)
[2022-11-08] MEDS: MAGNESIUM 1 GM/100 ML IVPB 100 ML IV SCH (05:33)
[2022-11-08] MEDS: KCL 20 MEQ TAB (K-DUR) PO SCH (05:33)
[2022-11-08] MEDS: DexMEDEtomidine 250 ML DRIP 250 ML IV SCH ×2 (05:50→15:52)
[2022-11-08 06:34] VITALS: BP 117/56
--- NOTE | 2022-11-08 07:00 | Occ Therapy Progress Note ---
Therapy Progress Note OT to dismiss pt at this time. OT will require new orders with patient is deemed medically stable and able to actively participate with skilled therapy. Per report, patient will receive trach and PEG on this date. AMANDA WEINER Nov 08, 2022 07:00
[2022-11-08] MEDS: fentaNYL DRIP PRE-MIX 250 ML IV SCH ×2 (07:16→18:10)
--- NOTE | 2022-11-08 07:55 | Physical Therapy Progress Note ---
Therapy Progress Note PT to remove patient from services at this time. PT will require new orders with patient is deemed medically stable and able to actively participate with skilled therapy. Per report, patient will receive trach and PEG on this date. OTIS BALDWIN PT Nov 08, 2022 07:55
--- NOTE | 2022-11-08 08:35 | Progress Note - Cardiology ---
Cardiology SOAP Progress Note Subjective: Remains intubated and sedated Objective: I&O/Vital Signs 11/07/22 11/08/22 11/08/22 11/08/22 23:59 00:00 01:00 01:00 Pulse 62 63 63 Resp 16 16 B/P (MAP) 125/55 (78) 126/57 (80) Pulse Ox 92 89 90 O2 Delivery Mechanical Ventilator Mechanical Ventilator Mechanical Ventilator O2 Flow Rate 75.00 75.00 FiO2 75 11/08/22 11/08/22 11/08/22 11/08/22 02:00 02:20 03:00 03:47 Pulse 63 63 65 63 Resp 16 16 16 B/P (MAP) 121/59 (79) 126/54 (78) 121/59 Pulse Ox 90 91 89 O2 Delivery Mechanical Ventilator Mechanical Ventilator O2 Flow Rate 75.00 75.00 FiO2 75 11/08/22 11/08/22 11/08/22 11/08/22 04:00 04:00 04:00 05:00 Temp 37.2 Pulse 64 66 Resp 16 17 B/P (MAP) 123/57 (79) 117/55 (75) Pulse Ox 91 89 89 O2 Delivery Mechanical Ventilator Mechanical Ventilator Mechanical Ventilator O2 Flow Rate 75.00 75.00 FiO2 75 11/08/22 11/08/22 11/08/22 11/08/22 05:00 05:50 06:00 06:34 Pulse 65 65 64 665 Resp 16 17 16 B/P (MAP) 123/57 120/54 (76) Pulse Ox 93 89 89 O2 Delivery Mechanical Ventilator O2 Flow Rate 75.00 FiO2 75 11/08/22 11/08/22 11/08/22 11/08/22 07:00 07:00 07:16 07:26 Pulse 66 67 67 67 Resp 13 B/P (MAP) 126/57 (80) 117/56 117/56 Pulse Ox 89 O2 Delivery Mechanical Ventilator O2 Flow Rate 75.00 11/08/22 11/08/22 11/08/22 11/08/22 07:29 07:57 07:59 08:00 Temp 36.5 Pulse 67 67 Resp 16 B/P (MAP) 117/56 113/53 (73) Pulse Ox 90 91 O2 Delivery Mechanical Ventilator Mechanical Ventilator O2 Flow Rate 75.00 FiO2 75 11/08/22 11/08/22 11/08/2222 09:00 09:56 10:00 10:23 Pulse 64 64 63 63 Resp 17 16 16 B/P (MAP) 124/58 (80) 124/58 108/49 (68) Pulse Ox 91 91 91 O2 Delivery Mechanical Ventilator Mechanical Ventilator O2 Flow Rate 75.00 75.00 FiO2 75 11/08/22 11/08/22 11/08/22 11/08/22 11:00 11:05 11:33 11:34 Pulse 65 63 63 Resp 16 B/P (MAP) 116/50 (72) 113/51 113/51 Pulse Ox 91 92 O2 Delivery Mechanical Ventilator Mechanical Ventilator O2 Flow Rate 75.00 FiO2 75 11/08/22 11/08/22 11:53 11:54 Temp 36.5 Pulse 63 B/P (MAP) 113/51 11/08/22 00:00 Intake Total 450 ml Output Total 850 ml Balance -400 ml Weight (Pounds): 278 Weight (Ounces): 9.6 Weight (Calculated Kilograms): 126.423895 Constitutional: other (Intubated, on mech vent, non-communicative) Respiratory: No accessory muscle use, No respiratory distress; other (fair air entry, basal coarse and fine crackles) Cardiovascular: regular rate-rhythm; No JVD; S1 and S2 Gastrointestional: No tender; soft, round, distended; No guarding; audible bowel sounds Extremities: swelling (mild, bilateral leg edema) Neurologic/Psychiatric: other (unable to cooperate with exam) Skin: No rash on exposed areas, No ulcerations on exposed areas; other (d ressing to [facility] which is D&I) Results/Procedures: Labs Laboratory Tests 11/07/22 17:45: Glucometer 166H 11/08/22 04:55: White Blood Count 8.4, Red Blood Count 2.92L, Hemoglobin 8.7L, Hematocrit 27L, Mean Corpuscular Volume 93, Mean Corpuscular Hemoglobin 30, Mean Corpuscular Hemoglobin Concent 32, Red Cell Distribution Width 16.0H, Platelet Count 289, Mean Platelet Volume 11.0, Immature Granulocyte % (Auto) 3, Neutrophils (%) (Auto) 71, Lymphocytes (%) (Auto) 14, Monocytes (%) (Auto) 9, Eosinophils (%) (Auto) 3, Basophils (%) (Auto) 1, Neutrophils # (Auto) 5.9, Lymphocytes # (Auto) 1.2, Monocytes # (Auto) 0.7, Eosinophils # (Auto) 0.3, Basophils # (Auto) 0.1, Immature Granulocyte # (Auto) 0.2H, Sodium Level 138, Potassium Level 4.2, Chloride Level 106, Carbon Dioxide Level 19L, Anion Gap 13, Blood Urea Nitrogen 35H, Creatinine 2.01H, Estimat Glomerular Filtration Rate 35, BUN/Creatinine Ratio 17, Glucose Level 170H, Calcium Level 8.2L, Corrected Calcium 9.6, Phosphorus Level 4.1, Magnesium Level 1.9, Total Bilirubin 1.0, Aspartate Amino Transf (AST/SGOT) 41H, Alanine Aminotransferase (ALT/SGPT) 26, Alkaline Phosphatase 74, Total Protein 6.5, Albumin 2.2L 11/08/22 05:00: Blood Gas Puncture Site L RAD, Blood Gas Patient Temperature 37.2, Arterial Blood pH 7.30*L, Arterial Blood Partial Pressure CO2 51H, Arterial Blood Partial Pressure O2 73L, Arterial Blood HCO3 24, Arterial Blood Total CO2 25.6, Arterial Blood Oxygen Saturation 92L, Arterial Blood Base Excess -1.5, Maurisio Test YES- POS, Blood Gas Ventilator Setting YES, Blood Gas Inspired Oxygen 75% 11/08/22 11:24: Glucometer 156H Microbiology 10/29/22 Urine Culture - Final, Complete NO GROWTH 10/29/22 MRSA Screen - Final, Complete MRSA not isolated 10/28/22 Blood Culture - Final, Complete No growth A/P: Assessment: Acute on chronic respiratory failure (multifactorial, see below) - [facility] Obesity with hypoventilation syndrome and SIDNEY Acute on chronic exacerbation of COPD - due to pneumonia - 2 weeks post COVID Mild troponin elevation - probably type 2 [place] due to transient hypoxia H/O seizures Coronary artery disease - history of CABG 6 done in 2012, has been followed by Dr. Adkins. History of multiple catheterizations and recalls having small vessel disease for which conservative management has been advised in the past per previous notes Acute on chronic systolic and diastolic congestive heart failure - Echo May [address] Duke showing left ventricular systolic function mildly reduced, EF 40-45%, grade 1 diastolic dysfunction. Dilated left atrium, p ulmonary artery pressure of 25-30 mmHg. - Echo 10/29/22: LVEF 50-55%, grade 2 diastolic dysfunction, mild LAE Chronic kidney disease stage 3 - again appears to be developing pre-renal azotemia due to diuretics (intravascular volume depletion) - reduce dose - minimal improvement Hypertension Hyperlipidemia - h/o statin tx COPD Status post lumbar surgery done in May 2019, prolonged and complex recovery Diabetes mellitus Obesity History of tobaccoism Plan: * Complex management due to worsening resp failure and continuing mech vent (managed by Hosp and eICU svces) * Minimal improvedment in renal function - following reduction in diuretics * Continue DAPT due to h/o CAD * Continue DVT prophylaxis due to considerable risk of DVT * Management of pneumonia / ac exac of COPD is with the Med svce * Replenish K * Monitor labs closely * Consider transfer to tertiary care hospital - possible trach and PEG tube placement today in preparation for transfer to [place] DEON GONZALEZ Nov 08, 2022 08:35
--- NOTE | 2022-11-08 08:36 | Diagnostic Imaging Report ---
INDICATION: CHF Frontal chest obtained at 0442 a.m. COMPARISON: 11/07/22 There is cardiomegaly and poststernotomy change. ET tube and NG tube are unchanged. There is extensive right-sided infiltrate. There is no pneumothorax. IMPRESSION: Technically limited study. Cardiomegaly and central vascular congestion with perihilar infiltrates right greater than left. Stable life support lines. Dictated by: Dictated on workstation # [id number]
[2022-11-08] MEDS: ASPIRIN 81 MG CHEW (CHILDREN'S ASA) PO SCH (08:59)
[2022-11-08] MEDS: CLOPIDOGREL 75 MG (PLAVIX) TABLET PO SCH (08:59)
[2022-11-08] MEDS: SENNOSIDES 8.6 MG (SENOKOT) TAB PO SCH ×2 (09:00→20:15)
[2022-11-08] MEDS: meTOprolol TARTRATE 25 MG (LOPRESSOR) TABLET PO SCH (09:00)
[2022-11-08] MEDS: DOCUSATE SODIUM 10 MG/ML 10 ML UDC (COLACE) PO SCH ×2 (09:00→20:15)
[2022-11-08] MEDS: amLODIPine 5 MG (NORVASC) TAB PO SCH (09:00)
--- NOTE | 2022-11-08 09:11 | Consultation - Surgery ---
NAVJOT SNYDER 11/08/22 0911: History of Present Illness History of Present Illness Patient Consulted On(jose ramon/time) 11/08/22 09:10 Date Seen by Provider: Nov 08, 2022 Time Seen by Provider: 09:10 History of Present Illness 71yo with h/o COPD, DM, SIDNEY, COPD with chronic respiratory failure, polycythemia d/t chronic respiratory failure, acute on chronic CHF, and SVT that was admitted on 10/28 from [facility] d/t worsening SOB and confusion. Pt was receiving treatment at [facility] two weeks prior to admission at [facility] for COVID. During hospital stay, pt began treatment for UTI and has needed increasing respiratory support, requiring intubation on 11/01. Pt has been on mechanical ventilation and TPN for approximately a week and is now requiring tra cheotomy and PEG tube placement prior to transfer to tertiary care [place]. History is limited due to pt condition. Per prior notes, on 11/07 pt was noted by the nurse that the pt had not had a BM since admission and there was an absence of bowel sounds. Tube feedings were held at that time and KUB was ordered. KUB on 11/07 showed no overt obstruction or ileus and an NG tube tip overlying the mid stomach. Pt had a repeat CXR today showing cardiomegaly and central vascular congestion with perihilar infiltrates (R>L). In room, pt is sedated and on mechanical ventilation. Hypoactive bowel sounds can be heard in all 4 quadrants. Per nurse, family is planning on transferring pt to [facility] and the facility is requesting tracheotomy and peg tube placement prior to transfer. Allergies and Home Medications Allergies Coded Allergies: No Known Drug Allergies (Verified , 05/17/19) Patient Home Medication List Home Medication List Reviewed: Yes Albuterol Sulfate (Albuterol Sulfate) 2.5 Mg/0.5 Ml Vial.neb, 2.5 MG INH Q4H PRN for SHORTNESS OF BREATH, (Reported) Entered as Reported by: LIBERTY OLIVEIRA on 05/16/211311 Last Action: Reviewed Albuterol Sulfate (Ventolin Hfa) 1 Puff Puff, 2 PUFF IH Q4H PRN for SHORTNESS OF BREATH, (Reported) Entered as Reported by: LIBERTY OLIVEIRA on 6/16/21 1312 Last Action: Reviewed Aspirin (Aspirin EC) 81 Mg Tablet.dr, 81 MG PO DAILY, (Reported) Entered as Reported by: NAUN HUERTA on 06/21/19 395 Last Action: Reviewed Atorvastatin Calcium (Atorvastatin Calcium) 20 Mg Tablet, 20 MG PO HS, (Reported) Entered as Reported by: LIBERTY OLIVEIRA on 10/29/221243 Last Action: Reviewed Budesonide/Formoterol Fumarate (Symbicort 160-4.5 Mcg Inhaler) 160 Mcg-4.5 Mcg/Actuation Hfa.aer.ad, 2 PUFF INH BID, (Reported) Entered as Reported by: LIBERTY OLIVEIRA on 10/29/221243 Last Action: Reviewed Clopidogrel Bisulfate (Clopidogrel) 75 Mg Tablet, 75 MG PO DAILY, (Reported) Entered as Reported by: NAUN HUERTA on 06/21/19 927 Last Action: Reviewed Famotidine (Famotidine) 20 Mg Tablet, 20 MG PO BID, (Reported) Entered as Reported by: LIBERTY OLIVEIRA on 10/29/221243 Last Action: Reviewed Furosemide (Furosemide) 20 Mg Tablet, 40 MG PO DAILY, (Reported) Entered as Reported by: LIBERTY OLIVEIRA on 10/29/221243 Last Action: Reviewed Gabapentin (Neurontin) 300 Mg Capsule, 600 MG PO BID, (Reported) Entered as Reported by: LIBERTY OLIVEIRA on 10/29/221243 Last Action: Reviewed Glimepiride (Glimepiride) 2 Mg Tablet, 2 MG PO DAILY, (Reported) Entered as Reported by: LIBERTY OLIVEIRA on 05/16/21 130 Last Action: Reviewed Guaifenesin (Guaifenesin) 200 Mg Tablet, 200 MG PO BID, (Reported) Entered as Reported by: LIBERTY OLIVEIRA on 10/29/221243 Last Action: Reviewed Hydrocodone/Acetaminophen (Hydrocodone-Acetamin 5-325 mg) 1 Each Tablet, 1 EA PO BID PRN for PAIN-MODERATE (5-7), (Reported) Entered as Reported by: LIBERTY OLIVEIRA on 05/16/21 130 Last Action: Reviewed Levetiracetam (Levetiracetam) 500 Mg Tablet, 1,000 MG PO BID, (Reported) Entered as Reported by: LIBERTY OLIVEIRA on 11/29/22 1244 Last Action: Reviewed Losartan Potassium (Losartan Potassium) 25 Mg Tablet, 25 MG PO DAILY, (Reported) Entered as Reported by: LIBERTY OLIVEIRA on 10/29/22 124 Last Action: Reviewed Mirtazapine (Mirtazapine) 15 Mg Tablet, 15 MG PO HS PRN for SLEEP, (Reported) Entered as Reported by: LIBERTY OLIVEIRA on 05/16/21 1309 Last Action: Reviewed Multivitamin with Minerals (Multivitamins with Minerals) 1 Each Tablet, 1 TAB PO DAILY, (Reported) Entered as Reported by: NAUN HUERTA on 06/18/19 1108 Last Action: Reviewed Sildenafil Citrate (Sildenafil) 20 Mg Tablet, 20 MG PO TID, (Reported) Entered as Reported by: NAUN HUERTA on 07/30/19 1628 Last Action: Reviewed Tamsulosin HCl (Flomax) 0.4 Mg Cap, 0.4 MG PO 1800, (Reported) Entered as Reported by: LIBERTY OLIVEIRA on 10/29/22 124 Last Action: Reviewed Past Hiklkux-Naygbb-Oxvtrh Hx Patient Social History Recent Hopitalizations: Yes Have you traveled recently?: No Immunizations Up To Date Tetanus Booster (TDap): More than 5yrs Date of Pneumonia Vaccine: Jul 15, 2018 Seasonal Allergies Seasonal Allergies: No Surgeries History of Surgeries: Yes (recent back surgery (coded post surgery)) Surgeries: CABG, Orthopedic Respiratory History of Respiratory Disorde: Yes Respiratory Disorders: Chronic Bronchitis, Sleep Apnea, COPD Cardiovascular History of Cardiac Disorders: Yes (patient states hx:SVT) Cardiac Disorders: Chronic Edema/Swelling, Coronary Artery Disease, High Cholesterol, Hypertension, Peripheral Vascular Neurological History of Neurological Disord: No Neurological Disorders: Neuropathy Genitourinary History of Genitourinary Disor: Yes Genitourinary Disorders: Benign Prostatic Hyperpl, Bladder Infection Gastrointestinal History of Gastrointestinal Di: No Gastrointestinal Disorders: Gastroesophageal Reflux, Chronic Constipation Musculoskeletal History of Musculoskeletal Dis: No Musculoskeletal Disorders: Degenerate Disk Disease, Arthritis, Chronic Back Pain Endocrine History of Endocrine Disorders: Yes Endocrine Disorders: Diabetes, Non-Insulin dep HEENT History of HEENT Disorders: No Cancer History of Cancer: No Psychosocial History of Psychiatric Problem: No Integumentary History of Skin or Integumenta: No Blood Transfusions History of Blood Disorders: No Adverse Reaction to a Blood Tr: No Family Medical History Significant Family History: No Pertinent Family Hx Review of Systems-General ROS-Unable to Obtain: d/t pt condition (mechanical ventilation) Physical Exam-General Problems Physical Exam Vital Signs Vital Signs - First Documented 11/02/22 11/02/22 00:00 00:50 Temp 36.6 Pulse 73 Resp 16 B/P (MAP) 164/60 (94) Pulse Ox 96 O2 Delivery Mechanical Ventilator O2 Flow Rate 75.00 FiO2 75 Capillary Refill : Less Than 3 Seconds General Appearance: no apparent distress, obese, other (on mechanical ventilation and NG tube present) Respiratory: no respiratory distress, no accessory muscle use, other (auscultation limited due to mechanical ventilation) Cardiovascular: regular rate, rhythm, no murmur Gastrointestinal: soft, abnormal bowel sounds (hypoactive x4); No distended Extremities: pedal edema (+2 pitting B/L) Neurologic/Psychiatric: No alert; other (sedated due to mechanical ventilation) Skin: normal color, warm/dry Data Review Labs Laboratory Tests 11/07/22 11:37: Glucometer 175H 11/07/22 17:45: Glucometer 166H 11/08/22 04:55: White Blood Count 8.4, Red Blood Count 2.92L, Hemoglobin 8.7L, Hematocrit 27L, Mean Corpuscular Volume 93, Mean Corpuscular Hemoglobin 30, Mean Corpuscular Hemoglobin Concent 32, Red Cell Distribution Width 16.0H, Platelet Count 289, Mean Platelet Volume 11.0, Immature Granulocyte % (Auto) 3, Neutrophils (%) (Auto) 71, Lymphocytes (%) (Auto) 14, Monocytes (%) (Auto) 9, Eosinophils (%) (Auto) 3, Basophils (%) (Auto) 1, Neutrophils # (Auto) 5.9, Lymphocytes # (Auto) 1.2, Monocytes # (Auto) 0.7, Eosinophils # (Auto) 0.3, Basophils # (Auto) 0.1, Immature Granulocyte # (Auto) 0.2H, Sodium Level 138, Potassium Level 4.2, Chloride Level 106, Carbon Dioxide Level 19L, Anion Gap 13, Blood Urea Nitrogen 35H, Creatinine 2.01H, Estimat Glomerular Filtration Rate 35, BUN/Creatinine Ratio 17, Glucose Level 170H, Calcium Level 8.2L, Corrected Calcium 9.6, Phosphorus Level 4.1, Magnesium Level 1.9, Total Bilirubin 1.0, Aspartate Amino Transf (AST/SGOT) 41H, Alanine Aminotransferase (ALT/SGPT) 26, Alkaline Phosphatase 74, Total Protein 6.5, Albumin 2.2L 11/08/22 05:00: Blood Gas Puncture Site L RAD, Blood Gas Patient Temperature 37.2, Arterial Blood pH 7.30*L, Arterial Blood Partial Pressure CO2 51H, Arterial Blood Partial Pressure O2 73L, Arterial Blood HCO3 24, Arterial Blood Total CO2 25.6, Arterial Blood Oxygen Saturation 92L, Arterial Blood Base Excess -1.5, Maurisio Test YES- POS, Blood Gas Ventilator Setting YES, Blood Gas Inspired Oxygen 75% Microbiology 10/29/22 Urine Culture - Final, Complete NO GROWTH 10/29/22 MRSA Screen - Final, Complete MRSA not isolated 10/28/22 Blood Culture - Final, Complete No growth Radiology NAME: MARANDA BURNS [facility] REC#: [id number] PT STATUS: ADM IN : 1950 PHYSICIAN: SHANNAN PARIKH MD ADMIT DATE: 10/28/22/ICU Signed Date of Exam:11/07/22 ABDOMEN/KUB 1VIEW Indication: Abdominal distention Abdominal film obtained at 11:50 a.m. NG tube tip overlies the mid stomach. Bowel gas pattern is unremarkable. There are postop changes in the lumbar spine. IMPRESSION: No overt obstruction or ileus. NG tube tip overlying the mid stomach. Dictated by: Dictated on workstation # [id number] Dict: 11/07/22 1221 Trans: 11/07/22 173 [facility] [id number] Interpreted by: EDILSON SOLITARIO MD Electronically signed by: EDILSON SOLITARIO MD 11/07/22 1737 NAME: MARANDA BURNS [facility] REC#: [id number] PT STATUS: ADM IN : 1950 PHYSICIAN: CHICHI DRISCOLL MD ADMIT DATE: 10/28/22/ICU Signed Date of Exam:11/08/22 CHEST 1 VIEW, AP/PA ONLY INDICATION: CHF Frontal chest obtained at 0442 a.m. COMPARISON: 11/07/22 There is cardiomegaly and poststernotomy change. ET tube and NG tube are unchanged. There is extensive right-sided infiltrate. There is no pneumothorax. IMPRESSION: Technically limited study. Cardiomegaly and central vascular congestion with perihilar infiltrates right greater than left. Stable life support lines. Dictated by: Dictated on workstation # [id number] Dict: 11/08/2229 Trans: 11/08/22 1011 [facility] [id number] Interpreted by: EDILSON SOLITARIO MD Electronically signed by: EDILSON SOLITARIO MD 11/08/22 1011 Assessment/Plan Assessment/Plan Assessment/Plan 1. Respiratory failure requiring mechanical ventilation 2. Prolonged absence of BMs 3. Requiring tube feedings 4. Acute on chronic CHF 5.CKD III Pt had KUB on 11/07 that showed no overt obstruction or ileus. Spoke to nurse and pt is planned to be transferred to [facility]. Per nurse, facility requires pt's to be have tracheotomy and peg tube placement prior to transfer. Due to pt's prolonged and continued need for mechanical ventilation and tube feedings, consider proceeding with tracheotomy and peg tube placement. Continue to hold TF. HOSSEIN PANCHAL DO 11/08/22 1400: History of Present Illness History of Present Illness Time Seen by Provider: 11:59 History of Present Illness Surgery asked to consult regarding Tracheostomy and PEG placement. Pt is intubated and sedated, not able to be weaned from vent. Family is not at bedside, so info attained from chart. Allergies and Home Medications Allergies Coded Allergies: No Known Drug Allergies (Verified , 05/17/19) Patient Home Medication List Home Medication List Reviewed: Yes Albuterol Sulfate (Albuterol Sulfate) 2.5 Mg/0.5 Ml Vial.neb, 2.5 MG INH Q4H PRN for SHORTNESS OF BREATH, (Reported) Entered as Reported by: LIBERTY OLIVEIRA on 05/16/21 1312 Last Action: Reviewed Albuterol Sulfate (Ventolin Hfa) 1 Puff Puff, 2 PUFF IH Q4H PRN for SHORTNESS OF BREATH, (Reported) Entered as Reported by: LIBERTY OLIVEIRA on 05/16/21 1312 Last Action: Reviewed Aspirin (Aspirin EC) 81 Mg Tablet., 81 MG PO DAILY, (Reported) Entered as Reported by: NAUN HUERTA on 06/21/191537 Last Action: Reviewed Atorvastatin Calcium (Atorvastatin Calcium) 20 Mg Tablet, 20 MG PO HS, (Re ported) Entered as Reported by: LIBERTY OLIVEIRA on 10/29/221243 Last Action: Reviewed Budesonide/Formoterol Fumarate (Symbicort 160-4.5 Mcg Inhaler) 160 Mcg-4.5 Mcg/Actuation Hfa.aer.ad, 2 PUFF INH BID, (Reported) Entered as Reported by: LIBERTY OLIVEIRA on 10/29/221243 Last Action: Reviewed Clopidogrel Bisulfate (Clopidogrel) 75 Mg Tablet, 75 MG PO DAILY, (Reported) Entered as Reported by: NAUN HUERTA on 06/21/19 212 Last Action: Reviewed Famotidine (Famotidine) 20 Mg Tablet, 20 MG PO BID, (Reported) Entered as Reported by: LIBERTY OLIVEIRA on 10/29/221243 Last Action: Reviewed Furosemide (Furosemide) 20 Mg Tablet, 40 MG PO DAILY, (Reported) Entered as Reported by: LIBERTY OLIVEIRA on 10/29/221243 Last Action: Reviewed Gabapentin (Neurontin) 300 Mg Capsule, 600 MG PO BID, (Reported) Entered as Reported by: LIBERTY OLIVEIRA on 10/29/221243 Last Action: Reviewed Glimepiride (Glimepiride) 2 Mg Tablet, 2 MG PO DAILY, (Reported) Entered as Reported by: LIBERTY OLIVEIRA on 05/16/21 130 Last Action: Reviewed Guaifenesin (Guaifenesin) 200 Mg Tablet, 200 MG PO BID, (Reported) Entered as Reported by: LIBERTY OLIVEIRA on 10/29/221243 Last Action: Reviewed Hydrocodone/Acetaminophen (Hydrocodone-Acetamin 5-325 mg) 1 Each Tablet, 1 EA PO BID PRN for PAIN-MODERATE (5-7), (Reported) Entered as Reported by: LIBERTY OLIVEIRA on 05/16/21 130 Last Action: Reviewed Levetiracetam (Levetiracetam) 500 Mg Tablet, 1,000 MG PO BID, (Reported) Entered as Reported by: LIBERTY OLIVEIRA on 10/29/221243 Last Action: Reviewed Losartan Potassium (Losartan Potassium) 25 Mg Tablet, 25 MG PO DAILY, (Reported) Entered as Reported by: LIBERTY OLIVEIRA on 10/29/22 1244 Last Action: Reviewed Mirtazapine (Mirtazapine) 15 Mg Tablet, 15 MG PO HS PRN for SLEEP, (Reported) Entered as Reported by: LIBERTY OLIVEIRA on 05/16/21 1309 Last Action: Reviewed Multivitamin with Minerals (Multivitamins with Minerals) 1 Each Tablet, 1 TAB PO DAILY, (Reported) Entered as Reported by: NAUN HUERTA on 06/18/19 1108 Last Action: Reviewed Sildenafil Citrate (Sildenafil) 20 Mg Tablet, 20 MG PO TID, (Reported) Entered as Reported by: NAUN HUERTA on 07/30/19 1628 Last Action: Reviewed Tamsulosin HCl (Flomax) 0.4 Mg Cap, 0.4 MG PO 1800, (Reported) Entered as Reported by: LIBERTY OLIVEIRA on 10/29/22 1244 Last Action: Reviewed Past Ksgoyqp-Ggxdmy-Lemngi Hx Patient Social History Smoking Status: Unknown if Ever Smoked Surgeries History of Surgeries: Yes Surgeries: CABG Respiratory History of Respiratory Disorde: Yes Respiratory Disorders: COPD Cardiovascular History of Cardiac Disorders: Yes Cardiac Disorders: Coronary Artery Disease, High Cholesterol, Hypertension Neurological History of Neurological Disord: No Genitourinary History of Genitourinary Disor: Yes Genitourinary Disorders: Benign Prostatic Hyperpl, UTI-Chronic Gastrointestinal History of Gastrointestinal Di: Yes Gastrointestinal Disorders: Gastroesophageal Reflux Musculoskeletal History of Musculoskeletal Dis: Yes Musculoskeletal Disorders: Arthritis Cancer History of Cancer: No Family Medical History Significant Family History: Heart Disease, Diabetes, Vascular Disease Review of Systems-General ROS-Unable to Obtain: unknown pt intubated and sedated Physical Exam-General Problems Physical Exam General Appearance: obese, other (on mechanical ventilation and NG tube present) Eyes: Bilateral Eye PERRL HEENT: pharynx normal, other (ET tube in place) Respiratory: no respiratory distress, no accessory muscle use, decreased breath sounds, other (auscultation limited due to mechanical ventilation) Cardiovascular: regular rate, rhythm, no murmur Gastrointestinal: soft, abnormal bowel sounds (hypoactive x4); No distended Extremities: pedal edema (+2 pitting B/L) Neurologic/Psychiatric: other (sedated due to mechanical ventilation) Skin: normal color, warm/dry Assessment/Plan Assessment/Plan Assessment/Plan 1. Respiratory failure requiring mechanical ventilation 2. Prolonged absence of BMs 3. Requiring tube feedings 4. Acute on chronic CHF 5.CKD III Pt had KUB on 11/07 that showed no overt obstruction or ileus. Spoke to nurse and pt is planned to be transferred to [facility]. Per nurse, facility requires pt's to be have tracheotomy and peg tube placement prior to transfer. Due to pt's prolonged and continued need for mechanical ventilation and tube feedings, consider proceeding with tracheotomy and peg tube placement. Continue to hold TF. Supervisory-Addendum Brief Verification & Attestation Participated in pt care: history, MDM, physical Personally performed: exam, history, MDM, supervision of care Care discussed with: Medical Student Procedures: n/a Verification and Attestation of Medical Student E/M Service A medical student performed and documented this service. I then reviewed and verified all information documented by the medical student and made modifications to such information, when appropriate. I personally performed a physical exam, medical decision making and then discussed any differences between the notes and made revisions as necessary to create one note. Hossein Panchal , 11/08/22 , 14:01 NAVJOT SNYDER Nov 08, 2022 09:11 HOSSEIN PANCHAL DO Nov 08, 2022 14:00
[2022-11-08] MEDS: meTOprolol 5 MG/5 ML (LOPRESSOR) VIAL IV SCH ×5 (09:16→23:56)
[2022-11-08] MEDS: PANTOPRAZOLE 40 MG (PROTONIX) VIAL IV SCH (09:16)
--- NOTE | 2022-11-08 09:21 | Progress Note - Cardiology ---
Cardiology SOAP Progress Note [facility] unable to communicate Objective: I&O/Vital Signs 11/07/22 11/07/22 11/07/22 11/07/22 21:50 22:00 23:00 23:22 Pulse 61 63 63 61 Resp 16 16 16 B/P (MAP) 121/59 (79) 135/64 (87) 122/54 Pulse Ox 90 91 90 O2 Delivery Mechanical Ventilator Mechanical Ventilator O2 Flow Rate 75.00 75.00 FiO2 75 11/07/22 11/08/22 11/08/22 11/08/22 23:59 00:00 01:00 01:00 Pulse 62 63 63 Resp 16 16 B/P (MAP) 125/55 (78) 126/57 (80) Pulse Ox 92 89 90 O2 Delivery Mechanical Ventilator Mechanical Ventilator Mechanical Ventilator O2 Flow Rate 75.00 75.00 FiO2 75 11/08/22 11/08/22 11/08/22 11/08/22 02:00 02:20 03:00 03:47 Pulse 63 63 65 63 Resp 16 16 16 B/P (MAP) 121/59 (79) 126/54 (78) 121/59 Pulse Ox 90 91 89 O2 Delivery Mechanical Ventilator Mechanical Ventilator O2 Flow Rate 75.00 75.00 FiO2 75 11/08/22 11/08/22 11/08/22 11/08/22 04:00 04:00 04:00 05:00 Temp 37.2 Pulse 64 66 Resp 16 17 B/P (MAP) 123/57 (79) 117/55 (75) Pulse Ox 91 89 89 O2 Delivery Mechanical Ventilator Mechanical Ventilator Mechanical Ventilator O2 Flow Rate 75.00 75.00 FiO2 75 11/08/22 11/08/22 11/08/22 11/08/22 05:00 05:50 06:00 06:34 Pulse 65 65 64 665 Resp 16 17 16 B/P (MAP) 123/57 120/54 (76) Pulse Ox 93 89 89 O2 Delivery Mechanical Ventilator O2 Flow Rate 75.00 FiO2 75 11/08/22 11/08/22 11/08/22 11/08/22 07:00 07:00 07:16 07:26 Pulse 66 67 67 67 Resp 13 B/P (MAP) 126/57 (80) 117/56 117/56 Pulse Ox 89 O2 Delivery Mechanical Ventilator O2 Flow Rate 75.00 11/08/22 11/08/22 11/08/22 11/08/22 07:29 07:57 07:59 08:00 Temp 36.5 Pulse 67 67 Resp 16 B/P (MAP) 117/56 113/53 (73) Pulse Ox 90 91 O2 Delivery Mechanical Ventilator Mechanical Ventilator O2 Flow Rate 75.00 FiO2 75 11/08/22 00:00 Intake Total 450 ml Output Total 850 ml Balance -400 ml Weight (Pounds): 278 Weight (Ounces): 9.6 Weight (Calculated Kilograms): 126.861584 Constitutional: other (Intubated, [facility], non-communicative) Respiratory: No accessory muscle use, No respiratory distress; other (fair air entry, basal coarse and fine crackles) Cardiovascular: regular rate-rhythm; No JVD; S1 and S2 Gastrointestional: No tender; soft, round, distended; No guarding; audible bowel sounds Extremities: swelling (mild, bilateral leg edema) Neurologic/Psychiatric: other (unable to cooperate with exam) Skin: No rash on exposed areas, No ulcerations on exposed areas; other (dressing to LLE) Results/Procedures: Labs Laboratory Tests 11/07/22 11:37: Glucometer 175H 11/07/22 17:45: Glucometer 166H 11/08/22 04:55: White Blood Count 8.4, Red Blood Count 2.92L, Hemoglobin 8.7L, Hematocrit 27L, Mean Corpuscular Volume 93, Mean Corpuscular Hemoglobin 30, Mean Corpuscular Hemoglobin Concent 32, Red Cell Distribution Width 16.0H, Platelet Count 289, Mean Platelet Volume 11.0, Immature Granulocyte % (Auto) 3, Neutrophils (%) (Auto) 71, Lymphocytes (%) (Auto) 14, Monocytes (%) (Auto) 9, Eosinophils (%) (Auto) 3, Basophils (%) (Auto) 1, Neutrophils # (Auto) 5.9, Lymphocytes # (Auto) 1.2, Monocytes # (Auto) 0.7, Eosinophils # (Auto) 0.3, Basophils # (Auto) 0.1, Immature Granulocyte # (Auto) 0.2H, Sodium Level 138, Potassium Level 4.2, Chloride Level 106, Carbon Dioxide Level 19L, Anion Gap 13, Blood Urea Nitrogen 35H, Creatinine 2.01H, Estimat Glomerular Filtration Rate 35, BUN/Creatinine Ratio 17, Glucose Level 170H, Calcium Level 8.2L, Corrected Calcium 9.6, Ph osphorus Level 4.1, Magnesium Level 1.9, Total Bilirubin 1.0, Aspartate Amino Transf (AST/SGOT) 41H, Alanine Aminotransferase (ALT/SGPT) 26, Alkaline Phosphatase 74, Total Protein 6.5, Albumin 2.2L 11/08/22 05:00: Blood Gas Puncture Site L RAD, Blood Gas Patient Temperature 37.2, Arterial Blood pH 7.30*L, Arterial Blood Partial Pressure CO2 51H, Arterial Blood Partial Pressure O2 73L, Arterial Blood HCO3 24, Arterial Blood Total CO2 25.6, Arterial Blood Oxygen Saturation 92L, Arterial Blood Base Excess -1.5, Maurisio Test YES- POS, Blood Gas Ventilator Setting YES, Blood Gas Inspired Oxygen 75% Microbiology 10/29/22 Urine Culture - Final, Complete NO GROWTH 10/29/22 MRSA Screen - Final, Complete MRSA not isolated 10/28/22 Blood Culture - Final, Complete No growth Laboratory Tests 11/07/22 04:15 11/08/22 04:55 Laboratory Tests 11/07/22 04:15 11/08/22 04:55 A/P: Assessment: Acute on chronic respiratory failure (multifactorial, see below) - worsening during this hosp, now on mech vent from which he has not been able come off Obesity with hypoventilation syndrome and SIDNEY Acute on chronic exacerbation of COPD - due to pneumonia - COVID in Oct 2022 Mild troponin elevation at admission - probably type 2 OK due to transient hypoxia H/O seizures Coronary artery disease - history of CABG 6 done in 2012, has been followed by Dr. Adkins. History of multiple catheterizations and recalls having small vessel disease for which conservative management has been advised in the past per previous notes Acute on chronic systolic and diastolic congestive heart failure - Echo May [address] Duke showing left ventricular systolic function mildly reduced, EF 40-45%, grade 1 diastolic dysfunction. Dilated left atrium, pulmonary artery pressure of 25-30 mmHg. - Echo 10/29/22: LVEF 50-55%, grade 2 diastolic dysfunction, mild LAE Chronic kidney disease stage 3 - again appears to be developing pre-renal azotemia due to diuretics (intravascular volume depletion) - dose reduced on 11/07/22 - minimal improvement Hypertension Hyperlipidemia - h/o statin tx COPD Status post lumbar surgery done in May 2019, prolonged and complex recovery Diabetes mellitus Obesity History of tobaccoism Plan: * Complex management due to worsening resp failure and continuing mech vent (managed by Hosp and eICU svces) * Trach and PEG tube placement today in preparation for transfer to [facility] * Change bp meds to iv until PEG in place and functional * Minimal improvedment in renal function - following reduction in diuretics * Continue DAPT due to h/o CAD * Continue DVT prophylaxis due to considerable risk of DVT * Management of pneumonia / ac exac of COPD is with the Med svce * Replenish K * Monitor labs closely JONATHAN EPPERSON MD [facility] Nov 08, 2022 09:21
--- NOTE | 2022-11-08 10:01 | Tele-ICU Progress Note ---
Subjective Date Seen by a Provider: Nov 08, 2022 Subjective/Events-last exam This virtual visit was conducted using real time audio/video. Thank you for asking us to see this patient for respiratory insufficiency due to AECOPD, SIDNEY, probable OHS. Intubated 11/01. PMH: COPD, CAD/CABG/CHF/PAD. Covid recently. DM2, HL, HTN PE: Morbid obesity. Appears comfortable sedated on vent. VSS. O2 sat 97% on Bip 18/6, 70%. HEENT: No obvious masses, adenopathy or JVD. Chest: Diminished on auscultation. CV: RRR S1 S2 No murmur or added sounds. Abd: Non-tender. Bowel sounds Y. : Unremarkable. Alves Y. SAS ADMINISTRATOR/psychiatric: Grossly intact. No obvious focal findings. Extremities: 1+ edema. Capillary refill < 3 seconds. Skin: unremarkable. Results: Elevated BUN 23, bg 175. Decreased Hb 10.5. B.3/51/73 on VENT 75%. CXR: Cardiomeg., post CABG changes, No change. Available chart/ vitals / labs / images reviewed. Video assessment done using teleICU camera, rest of exam as per RN. A/P: Respiratory insufficiency: Continue present management with VENT. possible trach/PEG 11/08/2022 Cont Duonebs, Prec., Prop., fent Monitor for increasing oxygenation needs. Critical Care: critically ill patient. Cont. IVF, SSI. Marilou, ASA, metop., Plavix PPI, norvasc. Discussed with RN Adrianna. Asked RN to reach out to eICU if any questions or concerns later. Time spent with patient/coordination of care with other health professionals (mins): 21 Sepsis Event Evaluation Height, Weight, BMI Height: 5'10.00" Weight: 278lbs. 9.6oz. 126.027878rw; 39.50 BMI Method:Stated Exam Exam Patient acknowledged, consented, and participated in this virtual visit which was conducted using real time audio/video Vital Signs Date Time Temp Pulse Resp B/P (MAP) Pulse Ox O2 Delivery O2 Flow Rate FiO2 11/08/22 09:00 64 17 124/58 (80) 91 Mechanical Ventilator 75.00 11/08/22 08:00 67 16 113/53 (73) 91 Mechanical Ventilator 75.00 11/08/22 07:59 36.5 11/08/22 07:57 67 117/56 11/08/22 07:29 90 Mechanical Ventilator 75 11/08/22 07:26 67 117/56 11/08/22 07:16 67 117/56 11/08/22 07:00 67 13 126/57 (80) 89 Mechanical Ventilator 75.00 11/08/22 07:00 66 11/08/22 06:34 665 16 89 75 11/08/22 06:00 64 17 120/54 (76) 89 Mechanical Ventilator 75.00 11/08/22 05:50 65 123/57 11/08/22 05:00 65 16 93 11/08/22 05:00 66 17 117/55 (75) 89 Mechanical Ventilator 75.00 11/08/22 04:00 64 16 123/57 (79) 89 Mechanical Ventilator 75.00 11/08/22 04:00 37.2 11/08/22 04:00 91 Mechanical Ventilator 75 11/08/22 03:47 63 121/59 11/08/22 03:00 65 16 126/54 (78) 89 Mechanical Ventilator 75.00 11/08/22 02:20 63 16 91 75 11/08/22 02:00 63 16 121/59 (79) 90 Mechanical Ventilator 75.00 11/08/22 01:00 63 11/08/22 01:00 63 16 126/57 (80) 90 Mechanical Ventilator 75.00 11/08/22 00:00 62 16 125/55 (78) 89 Mechanical Ventilator 75.00 11/07/22 23:59 92 Mechanical Ventilator 75 11/07/22 23:22 61 122/54 11/07/22 23:00 63 16 135/64 (87) 90 Mechanical Ventilator 75.00 11/07/22 22:00 63 16 121/59 (79) 91 Mechanical Ventilator 75.00 11/07/22 21:50 61 16 90 75 11/07/22 21:00 61 16 122/54 (76) 90 Mechanical Ventilator 75.00 11/07/22 20:00 62 16 121/56 (77) 90 Mechanical Ventilator 75.00 11/07/22 20:00 92 Mechanical Ventilator 75 11/07/22 19:48 61 121/56 11/07/22 19:41 36.2 11/07/22 19:00 62 16 129/60 (83) 92 Mechanical Ventilator 75.00 11/07/22 19:00 Mechanical Ventilator 75.00 11/07/22 19:00 63 11/07/22 18:43 61 16 91 75 11/07/22 18:38 63 134/67 11/07/22 18:38 63 134/67 11/07/22 18:35 63 134/67 11/07/22 18:00 63 18 134/67 (89) 92 Mechanical Ventilator 65.00 11/07/22 17:00 64 15 126/51 (76) 92 Mechanical Ventilator 65.00 11/07/22 16:57 92 Mechanical Ventilator 65 11/07/22 16:00 64 16 125/65 (85) 90 Mechanical Ventilator 65.00 11/07/22 15:18 66 123/57 11/07/22 15:18 66 123/57 11/07/22 15:00 64 16 119/51 (73) 93 Mechanical Ventilator 65.00 11/07/22 14:57 66 123/57 11/07/22 14:20 66 123/57 11/07/22 14:15 64 16 93 65 11/07/22 14:00 64 16 121/46 (71) 94 Mechanical Ventilator 65.00 11/07/22 13:00 66 16 123/57 (79) 95 Mechanical Ventilator 65.00 11/07/22 12:51 66 11/07/22 12:00 92 Mechanical Ventilator 65 11/07/22 12:00 68 16 109/52 (71) 94 Mechanical Ventilator 65.00 11/07/22 11:53 37.6 11/07/22 11:28 79 176/83 11/07/22 11:27 83 176/83 11/07/22 11:00 78 16 114/75 (88) 93 Mechanical Ventilator 65.00 11/07/22 10:51 68 114/55 11/07/22 10:15 79 19 93 65 11/07/22 10:00 68 16 114/55 (74) 95 Mechanical Ventilator 65.00 I & O 11/08/22 07:00 Intake Total 2020 ml Output Total 1550 ml Balance 470 ml Height & Weight Height: 5'10.00" Weight: 278lbs. 9.6oz. 126.013174ko; 39.50 BMI Method:Stated General Appearance: WD/WN, Chronically ill, Moderate Distress, Obese, Other (on BiPAP) Respiratory: No Accessory Muscle Use, No Respiratory Distress, Decreased Breath Sounds (diffuse), Rhonci Cardiovascular: Regular Rate, Rhythm Capillary Refill: Less Than 3 Seconds Gastrointestinal: normal bowel sounds, non tender, soft, other (mild distension persists, no bowel sounds today) Extremity: No Pedal Edema, Pedal Edema, Other (+ 1 andle edeam in both legs) Neurologic/Psychiatric: Alert, Disoriented, Other (RASS -3) Results Lab Laboratory Tests 11/07/22 04:15 11/08/22 04:55 Assessment/Plan Assessment/Plan See free text. Critical Care: Ventilator Management JAMES RODRIGUEZ MD Nov 08, 2022 10:01
[2022-11-08 10:23] VITALS: BP 113/51
--- NOTE | 2022-11-08 12:56 | Progress Note ---
EMIR KAM 11/08/22 1256: Subjective Date Seen by a Provider: Nov 08, 2022 Time Seen by a Provider: 11:15 Subjective/Events-last exam Florentino Meehan is a 71 yo male who was admitted from [facility] to the ICU for worsening SOB requiring BiPAP. The patient was notably confused at the time of transfer, with limited responsiveness to questioning. Labs on admission were remarkable for elevated troponin of 0.895, BNP 159.5, Procalcitonin 0.18, D-dimer 0.85, and multiple UA abnormalities suggestive of UTI. The patient was initially started on vancomycin and cefepime on arrival, ultimately switched to cefdinir on 11/04, course completed on 11/07. The patient remained on BiPAP until 11/01 when he was placed on mechanical ventilation, which he has continued to require since. Urine culture returned negative for bacterial growth. Daily ABGs obtained, most recently showing pH 7.30, pCO2 51, pO2 73. Bloodwork remained largely unchanged throughout his hospitalization, most recently significant only for HGB 8.7, BUN 35, Creatinine 2.01 (decreased from previous day 2.08). Daily Chest X-rays were obtained, most recently showing perihilar infiltrates, right greater than left, and cardiomegaly with central vascular congestion. DVT prophylaxis was initiated with Lovenox. Long-term care hospital transfer and continued ventilation was discussed with the patient's daughters, who are agreeable to this plan, though they prefer transfer to a [facility]. The patient remains sedated on mechanical ventilation on evaluation and is unable to provide further history. Surgery was consulted with plan to perform tracheotomy and PEG placement on 11/08 prior to transfer. Review of Systems Unable to obtain due to patient's condition. Objective Exam Last Set of Vital Signs Vital Signs Date Time Temp Pulse Resp B/P (MAP) Pulse Ox O2 Delivery O2 Flow Rate FiO2 11/08/22 12:00 63 16 118/55 (76) 90 Mechanical Ventilator 75.00 11/08/22 11:53 36.5 11/08/22 11:34 75 Capillary Refill : Less Than 3 Seconds I&O Intake and Output 11/08/22 00:00 Intake Total 2480 ml Output Total 1450 ml Balance 1030 ml Intake Oral 0 ml IV Total 1940 ml Tube Feeding 400 ml Other 140 ml Output Urine Total 1450 ml General: Other (Sedated on mechanical ventilation) HEENT: Atraumatic Lungs: Other (Diffuse right-sided rhonchi. Decreased breath sounds throughout all lung larios.) Heart: Regular Rate, Normal S1, Normal S2, No Murmurs Abdomen: Soft, Other (mild distension) Extremities: No Edema, Normal Pulses Psych/Mental Status: Other (Sedated) Results Lab Laboratory Tests 11/07/22 17:45: Glucometer 166H 11/08/22 04:55: White Blood Count 8.4, Red Blood Count 2.92L, Hemoglobin 8.7L, Hematocrit 27L, Mean Corpuscular Volume 93, Mean Corpuscular Hemoglobin 30, Mean Corpuscular Hemoglobin Concent 32, Red Cell Distribution Width 16.0H, Platelet Count 289, Mean Platelet Volume 11.0, Immature Granulocyte % (Auto) 3, Neutrophils (%) ( Auto) 71, Lymphocytes (%) (Auto) 14, Monocytes (%) (Auto) 9, Eosinophils (%) (Auto) 3, Basophils (%) (Auto) 1, Neutrophils # (Auto) 5.9, Lymphocytes # (Auto) 1.2, Monocytes # (Auto) 0.7, Eosinophils # (Auto) 0.3, Basophils # (Auto) 0.1, Immature Granulocyte # (Auto) 0.2H, Sodium Level 138, Potassium Level 4.2, Chloride Level 106, Carbon Dioxide Level 19L, Anion Gap 13, Blood Urea Nitrogen 35H, Creatinine 2.01H, Estimat Glomerular Filtration Rate 35, BUN/Creatinine Ratio 17, Glucose Level 170H, Calcium Level 8.2L, Corrected Calcium 9.6, Phosphorus Level 4.1, Magnesium Level 1.9, Total Bilirubin 1.0, Aspartate Amino Transf (AST/SGOT) 41H, Alanine Aminotransferase (ALT/SGPT) 26, Alkaline Phosphatase 74, Total Protein 6.5, Albumin 2.2L 11/08/22 05:00: Blood Gas Puncture Site L RAD, Blood Gas Patient Temperature 37.2, Arterial Blood pH 7.30*L, Arterial Blood Partial Pressure CO2 51H, Arterial Blood Partial Pressure O2 73L, Arterial Blood HCO3 24, Arterial Blood Total CO2 25.6, Arterial Blood Oxygen Saturation 92L, Arterial Blood Base Excess -1.5, Maurisio Test YES- POS, Blood Gas Ventilator Setting YES, Blood Gas Inspired Oxygen 75% 11/08/22 11:24: Glucometer 156H Microbiology 10/29/22 Urine Culture - Final, Complete NO GROWTH 10/29/22 MRSA Screen - Final, Complete MRSA not isolated 10/28/22 Blood Culture - Final, Complete No growth Radiology Date of Exam:11/07/22 ABDOMEN/KUB 1VIEW Indication: Abdominal distention IMPRESSION: No overt obstruction or ileus. NG tube tip overlying the mid stomach. Date of Exam:11/08/22 CHEST 1 VIEW, AP/PA ONLY IMPRESSION: Technically limited study. Cardiomegaly and central vascular congestion with perihilar infiltrates right greater than left. Stable life support lines. Assessment/Plan Assessment/Plan Assess & Plan/Chief Complaint 1. Acute respiratory failure: Continue mechanical ventilation. Continue monitoring respiratory status. Continue cefdinir regimen. Dr. Aviles of surgery consulted with tracheotomy and PEG tube placement planned for 11/08. 2. UTI: Ruled out by urine culture. 3. Metabolic encephalopathy: Continue gentle hydration and correction of acute respiratory failure. 4. DVT prophylaxis: Continue Lovenox therapy. 5. Elevated troponin: Consult cardiology. 6. Elevated BUN, Creatinine: Continue IV hydration. Recheck CMP in 24 hours. Seek placement at [facility]. Clinical Quality Measures Admission Status Admission Dx 1. Acute respiratory failure: Continue BiPAP. Monitor O2 saturation and respiratory status. 2. UTI: Continue vancomycin, cefepime regimen. 3. Metabolic encephalopathy: Continue gentle hydration and correction of acute respiratory failure. 4. DVT prophylaxis: Continue Lovenox therapy. 5. Elevated troponin: Consult cardiology. CINTIA LONG DO 11/09/22 0617: Assessment/Plan Assessment/Plan Assess & Plan/Chief Complaint peg trach Supervisory-Addendum Brief Verification & Attestation Participated in pt care: history, MDM, physical Personally performed: exam, history, MDM, supervision of care Care discussed with: Medical Student Procedures: n/a Results interpretation: Verified all documentation Verification and Attestation of Medical Student E/M Service A medical student performed and documented this service in my presence. I reviewed and verified all information documented by the medical student and made modifications to such information, when appropriate. I personally performed the physical exam and medical decision making. Cintia Long, Nov 09, 2022,06:17 EMIR KAM Nov 08, 2022 12:56 CINTIA LONG DO Nov 09, 2022 06:17
[2022-11-08] MEDS ORDERED: NS IV 1000 ML 1,000 ML IV SCH ×2 (13:15→18:15)
--- NOTE | 2022-11-08 13:26 | Diagnostic Imaging Report ---
EXAMINATION: Chest 1 view HISTORY: Increased hypoxia. COMPARISON: 11/08/2022. FINDINGS: Heart size and pulmonary vasculature are stable. Medical support lines and tubes are unchanged. Stable appearance of the diffuse interstitial and airspace opacities seen throughout both lungs. Possible right pleural effusion. No pneumothorax. Surgical changes from median sternotomy. The lungs are clear without consolidation, pleural effusion, or pneumothorax. The osseous structures are intact. IMPRESSION: 1. Stable appearance of the patchy interstitial and airspace opacities throughout both lungs compared to prior radiograph on 11/08/2022. Dictated by: Dictated on workstation # [id number]
[2022-11-08 13:33] VITALS: BP 131/58
[2022-11-08 18:51] VITALS: BP 129/58
[2022-11-08 22:21] VITALS: BP 124/61
[2022-11-08] MEDS: ENOXAPARIN 40 MG/0.4 ML (LOVENOX) SYR SC SCH (22:48)
[2022-11-09] VITALS (7 sets, daily range): BP systolic 119–139; BP diastolic 58–63
[2022-11-09 00:41] LABS: ABG BASE EXCESS -4.9 MMOL/L (-2.5-2.5); ABG OXYGEN SATURATION 94 % (94-100); ABG PCO2 51 MMHG (35-45); ABG PO2 77 MMHG (79-93); ABG TCO2 23.1 MMOL/L (21.0-31.0)
[2022-11-09 00:58] LABS: ABG PH 7.24 (7.37-7.43); ALLENS TEST YES-POS; INSPIRED O2 100%; PATIENT TEMP 36.4; VENTILATOR YES
[2022-11-09] MEDS: DexMEDEtomidine 250 ML DRIP 250 ML IV SCH ×3 (01:35→21:37)
[2022-11-09] MEDS: PROPOFOL DRIP (ICU) 100 ML IV SCH ×6 (02:41→23:44)
[2022-11-09] MEDS: RT-ALBUTEROL/IPRATROPIUM 3 ML (DUONEB) VIAL INH SCH ×6 (02:46→21:50)
[2022-11-09] MEDS: meTOprolol 5 MG/5 ML (LOPRESSOR) VIAL IV SCH ×6 (03:41→23:57)
[2022-11-09 03:59] LABS: ABG BASE EXCESS -4.8 MMOL/L (-2.5-2.5); ABG OXYGEN SATURATION 96 % (94-100); ABG PCO2 42 MMHG (35-45); ABG PO2 78 MMHG (79-93); ABG TCO2 21.9 MMOL/L (21.0-31.0)
[2022-11-09 04:02] LABS: BASOPHILS % (AUTO) 1 % (0-10); EOSINOPHILS # (AUTO) 0.2 10^3/uL (0.0-0.3); EOSINOPHILS % (AUTO) 3 % (0-10); HEMATOCRIT 26 % (40-54); HEMOGLOBIN 8.5 g/dL (13.3-17.7); LYMPHOCYTES # (AUTO) 1.2 10^3/uL (1.0-4.0); LYMPHOCYTES % (AUTO) 15 % (12-44); MEAN CORPUSCULAR HEMOGLOBIN 30 pg (25-34); MEAN CORPUSCULAR HGB CONC 32 g/dL (32-36); MEAN CORPUSCULAR VOLUME 92 fL (80-99); MEAN PLATELET VOLUME 11.1 fL (9.0-12.2); MONOCYTES # (AUTO) 0.7 10^3/uL (0.0-1.0); MONOCYTES % (AUTO) 9 % (0-12); NEUTROPHILS # (AUTO) 5.6 10^3/uL (1.8-7.8); NEUTROPHILS % (AUTO) 70 % (42-75); PLATELET COUNT 310 10^3/uL (130-400)
[2022-11-09 04:03] LABS: ALLENS TEST YES-POS; INSPIRED O2 100%; PATIENT TEMP 36.1; VENTILATOR YES
[2022-11-09 04:04] LABS: ABG PH 7.31 (7.37-7.43)
[2022-11-09 04:20] LABS: CALCIUM 7.9 MG/DL (8.5-10.1); CREATININE SERUM 2.22 MG/DL (0.60-1.30); MAGNESIUM 1.6 MG/DL (1.6-2.4); POTASSIUM 4.2 MMOL/L (3.6-5.0)
[2022-11-09] MEDS: inSUlin ASPART (NovoLOG) 1 UNIT/0.01 ML (CHARGE PER UNIT) SC SCH ×4 (05:37→23:59)
[2022-11-09] MEDS: MAGNESIUM 1 GM/100 ML IVPB 100 ML IV SCH (05:37)
[2022-11-09] MEDS: POTASSIUM CL 10MEQ/50ML IVPB 50 ML IV SCH (05:37)
[2022-11-09] MEDS: KCL 20 MEQ TAB (K-DUR) PO SCH (05:37)
--- NOTE | 2022-11-09 05:46 | Diagnostic Imaging Report ---
INDICATION: Congestive heart failure, hypoxia. TECHNIQUE: Single view chest 5:20 AM. CORRELATION STUDY: 11/08/2022 FINDINGS: Significant limitations on the study. Poststernotomy change. Endotracheal tube tip remains at the level of the thoracic inlet. Right-sided central line is present, tip can be traced to the SVC but tip not visualized. Gastric tube is also likely present with tip not visualized. Heart size and mediastinum are enlarged and prominent. Opacities at both lung bases are present. Some of this may be largely due to soft tissue attenuations with possibility of edema and/or infiltrate also suspect. Overall appears slightly increased. IMPRESSION: 1. Significant limitations on this chest radiograph. Overall appears to be increasing infiltrate and/or edema through the lung larios. 2. Grossly stable appearance about the lines and tubes. Dictated by: Dictated on workstation # [id number]
[2022-11-09] MEDS ORDERED: MAGNESIUM 1 GM/100 ML IVPB 100 ML IV SCH (06:00)
[2022-11-09] MEDS: fentaNYL DRIP PRE-MIX 250 ML IV SCH ×2 (06:27→16:38)
--- NOTE | 2022-11-09 06:41 | Progress Note ---
Subjective Date Seen by a Provider: Nov 09, 2022 Time Seen by a Provider: 11:00 Subjective/Events-last exam Patient still on ventilator PEG and trach will be placed on Friday since Plavix had to be held Appreciate Dr. Aviles Still not tolerating feeds we will reach out to Dr. Aviles Objective Exam Last Set of Vital Signs Vital Signs Date Time Temp Pulse Resp B/P (MAP) Pulse Ox O2 Delivery O2 Flow Rate FiO2 11/09/22 06:28 58 134/66 11/09/22 06:00 20 89 Mechanical Ventilator 100.00 11/09/22 04:00 80 11/09/22 03:40 36.1 Capillary Refill : Less Than 3 Seconds I&O Intake and Output 11/09/22 00:00 Intake Total 4240 ml Output Total 725 ml Balance 3515 ml Intake Oral 0 ml IV Total 4240 ml Output Urine Total 725 ml General: Other (Chronically ill on ventilator) Lungs: Clear to Auscultation Heart: Regular Rate Results Lab Laboratory Tests 11/08/22 11:24: Glucometer 156H 11/08/22 18:21: Glucometer 170H 11/08/22 23:52: Glucometer 137H 11/09/22 00:32: Blood Gas Puncture Site RR, Blood Gas Patient Temperature 36.4, Arterial Blood pH 7.24*L, Arterial Blood Partial Pressure CO2 51H, Arterial Blood Partial Pressure O2 77L, Arterial Blood HCO3 22L, Arterial Blood Total CO2 23.1, Arterial Blood Oxygen Saturation 94, Arterial Blood Base Excess -4.9L, Maurisio Test YES-POS, Blood Gas Ventilator Setting YES, Blood Gas Inspired Oxygen 100% 11/09/22 03:51: White Blood Count 8.0, Red Blood Count 2.84L, Hemoglobin 8.5L, Hematocrit 26L, Mean Corpuscular Volume 92, Mean Corpuscular Hemoglobin 30, Mean Corpuscular Hemoglobin Concent 32, Red Cell Distribution Width 16.3H, Platelet Count 310, Mean Platelet Volume 11.1, Immature Granulocyte % (Auto) 3, Neutrophils (%) (Auto) 70, Lymphocytes (%) (Auto) 15, Monocytes (%) (Auto) 9, Eosinophils (%) (Auto) 3, Basophils (%) (Auto) 1, Neutrophils # (Auto) 5.6, Lymphocytes # (Auto) 1.2, Monocytes # (Auto) 0.7, Eosinophils # (Auto) 0.2, Basophils # (Auto) 0.0, Immature Granulocyte # (Auto) 0.3H, Sodium Level 138, Potassium Level 4.2, Chloride Level 109H, Carbon Dioxide Level 17L, Anion Gap 12, Blood Urea Nitrogen 39H, Creatinine 2.22H, Estimat Glomerular Filtration Rate 31, BUN/Creatinine Ratio 18, Glucose Level 149H, Calcium Level 7.9L, Magnesium Level 1.6, Triglycerides Level 945#H 11/09/22 03:55: Blood Gas Puncture Site RR, Blood Gas Patient Temperature 36.1, Arterial Blood pH 7.31*L, Arterial Blood Partial Pressure CO2 42, Arterial Blood Partial Pressure O2 78L, Arterial Blood HCO3 21L, Arterial Blood Total CO2 21.9, Arterial Blood Oxygen Saturation 96, Arterial Blood Base Excess -4.8L, Maurisio Test YES-POS, Blood Gas Ventilator Setting YES, Blood Gas Inspired Oxygen 100% Microbiology 10/29/22 Urine Culture - Final, Complete NO GROWTH 10/29/22 MRSA Screen - Final, Complete MRSA not isolated 10/28/22 Blood Culture - Final, Complete No growth Assessment/Plan Assessment/Plan Assess & Plan/Chief Complaint 1. Acute respiratory failure: Continue mechanical ventilation. Continue monitoring respiratory status. Continue cefdinir regimen. Dr. Aviles of surgery consulted with tracheotomy and PEG tube placement planned for 11/11. 2. UTI: Ruled out by urine culture. 3. Metabolic encephalopathy: Continue gentle hydration and correction of acute respiratory failure. 4. DVT prophylaxis: Continue Lovenox therapy. 5. Elevated troponin: Consult cardiology. 6. Elevated BUN, Creatinine: Continue IV hydration. Recheck CMP in 24 hours. Diagnosis/Problems Diagnosis/Problems (1) Respiratory failure, acute and chronic (2) Acute on chronic diastolic heart failure with preserved ejection fraction Status: Acute (3) Noncompliance Status: Chronic (4) Hypertension Status: Chronic (5) PVD (peripheral vascular disease) Status: Chronic Clinical Quality Measures Admission Status Admission Dx ICU Dr Mcclure consult BiPAP Monitor closely JASPER LONG DO Nov 09, 2022 06:41
[2022-11-09] MEDS: DOCUSATE SODIUM 10 MG/ML 10 ML UDC (COLACE) PO SCH ×2 (08:12→20:01)
[2022-11-09] MEDS: SENNOSIDES 8.6 MG (SENOKOT) TAB PO SCH ×2 (08:12→20:01)
[2022-11-09] MEDS: PANTOPRAZOLE 40 MG (PROTONIX) VIAL IV SCH (08:13)
--- NOTE | 2022-11-09 08:43 | Tele-ICU Progress Note ---
Subjective Date Seen by a Provider: Nov 09, 2022 Subjective/Events-last exam his virtual visit was conducted using real time audio/video. Thank you for asking us to see this patient for respiratory insufficiency due to AECOPD, SIDNEY, probable OHS. Intubated 11/01. PMH: COPD, CAD/CABG/CHF/PAD. Covid recently. DM2, HL, HTN PE: Morbid obesity. Appears comfortable sedated on vent. VSS. O2 sat 95% on AC 16/500/80/12 HEENT: No obvious masses, adenopathy or JVD. Chest: Diminished on auscultation, coarse wheezing.. CV: RRR S1 S2 No murmur or added sounds. Abd: Non-tender. Bowel sounds diminished. : Unremarkable. Alves Y. CARE INFORMATION ASSOCIATE/psychiatric: Grossly intact. No obvious focal findings. Extremities: 1+ edema. Capillary refill < 3 seconds. Skin: unremarkable. Results: Elevated BUN 39, Creat 2.22, bg 175. Decreased Hb 8.3. B.31/42/78 on VENT 100%. CXR: Cardiomeg., post CABG changes, congested(recd 2 L NS 11/08 for oliguria). Available chart/ vitals / labs / images reviewed. Video assessment done using teleICU camera, rest of exam as per RN. A/P: Respiratory insufficiency: Continue present management with VENT. possible trach/PEG. Recommend Palliative Care consult due to very poor prognosis Cont Duonebs, Prec., Prop., fent Critical Care: critically ill patient. Cont. IVF, SSI. Marilou, ASA, metop., Plavix, PPI, norvasc. Discussed with JACY Ralph. Asked RN to reach out to eICU if any questions or concerns later. Time spent with patient/coordination of care with other health professionals (mins): 23 Sepsis Event Evaluation Height, Weight, BMI Height: 5'10.00" Weight: 278lbs. 9.6oz. 126.772822td; 86.70 BMI Method:Stated Exam Exam Patient acknowledged, consented, and participated in this virtual visit which was conducted using real time audio/video Vital Signs Date Time Temp Pulse Resp B/P (MAP) Pulse Ox O2 Delivery O2 Flow Rate FiO2 11/09/22 08:00 59 20 137/63 (87) 94 Mechanical Ventilator 100.00 11/09/22 07:57 57 20 94 100 11/09/22 07:53 36.8 11/09/22 07:00 58 11/09/22 07:00 58 20 139/62 (87) 88 Mechanical Ventilator 100.00 11/09/22 06:28 58 134/66 11/09/22 06:27 58 134/66 11/09/22 06:00 58 20 140/60 (86) 89 Mechanical Ventilator 100.00 11/09/22 05:35 58 134/66 11/09/22 05:00 57 20 134/66 (88) 90 Mechanical Ventilator 100.00 11/09/22 05:00 58 20 86 11/09/22 04:00 57 20 134/60 (84) 90 Mechanical Ventilator 100.00 11/09/22 04:00 90 Mechanical Ventilator 80 11/09/22 03:47 59 141/61 11/09/22 03:40 36.1 11/09/22 03:00 59 20 141/61 (87) 90 Mechanical Ventilator 100.00 11/09/22 02:46 57 20 95 100 11/09/22 02:41 56 119/58 11/09/22 02:00 57 20 134/61 (85) 92 Mechanical Ventilator 100.00 11/09/22 01:35 56 119/58 11/09/22 01:06 56 20 90 100 11/09/22 01:00 60 11/09/22 01:00 56 16 136/64 (88) 90 Mechanical Ventilator 100.00 11/09/22 00:00 57 16 125/61 (82) 91 Mechanical Ventilator 100.00 11/08/22 23:59 91 Mechanical Ventilator 80 11/08/22 23:54 36.9 11/08/22 23:47 56 124/61 11/08/22 23:40 56 124/61 11/08/22 23:00 58 16 120/56 (77) 91 Mechanical Ventilator 100.00 11/08/22 22:48 56 124/61 11/08/22 22:23 Mechanical Ventilator 100.00 11/08/22 22:21 56 16 91 100 11/08/22 22:10 56 124/61 11/08/22 22:00 56 16 124/61 (82) 90 Mechanical Ventilator 80.00 11/08/22 21:00 56 16 122/56 (78) 90 Mechanical Ventilator 80.00 11/08/22 20:00 58 16 130/59 (82) 93 Mechanical Ventilator 80.00 11/08/22 20:00 93 Mechanical Ventilator 80 11/08/22 19:52 58 129/58 11/08/22 19:42 36.6 11/08/22 19:40 58 129/58 11/08/22 19:13 58 129/58 11/08/22 19:00 60 11/08/22 19:00 60 16 133/60 (84) 95 Mechanical Ventilator 80.00 11/08/22 18:51 58 16 93 80 11/08/22 18:10 60 118/58 11/08/22 18:00 59 16 123/56 (78) 92 Mechanical Ventilator 80.00 11/08/22 17:00 60 16 118/58 (78) 94 Mechanical Ventilator 80.00 11/08/22 16:06 94 Mechanical Ventilator 80 11/08/22 16:00 36.7 11/08/22 16:00 60 17 117/55 (75) 94 Mechanical Ventilator 80.00 11/08/22 15:52 62 112/55 11/08/22 15:52 62 112/55 11/08/22 15:00 62 17 112/55 (74) 90 Mechanical Ventilator 80.00 11/08/22 14:00 64 16 122/56 (78) 92 Mechanical Ventilator 80.00 11/08/22 13:33 62 16 91 80 11/08/22 13:07 Mechanical Ventilator 80.00 11/08/22 13:00 61 16 123/58 (79) 90 Mechanical Ventilator 75.00 11/08/22 13:00 63 11/08/22 12:47 89 11/08/22 12:00 63 16 118/55 (76) 90 Mechanical Ventilator 75.00 11/08/22 11:54 63 113/51 11/08/22 11:53 36.5 11/08/22 11:34 92 Mechanical Ventilator 75 11/08/22 11:33 63 113/51 11/08/22 11:05 63 113/51 11/08/22 11:00 65 16 116/50 (72) 91 Mechanical Ventilator 75.00 11/08/22 10:23 63 16 91 75 11/08/22 10:00 63 16 108/49 (68) 91 Mechanical Ventilator 75.00 11/08/22 09:56 64 124/58 11/08/22 09:00 64 17 124/58 (80) 91 Mechanical Ventilator 75.00 I & O 11/09/22 07:00 Intake Total 4940 ml Output Total 675 ml Balance 4265 ml Height & Weight Height: 5'10.00" Weight: 278lbs. 9.6oz. 126.898644jg; 86.70 BMI Method:Stated General Appearance: WD/WN, Chronically ill, Moderate Distress, Obese, Other (on BiPAP) Respiratory: No Accessory Muscle Use, No Respiratory Distress, Decreased Breath Sounds (diffuse), Rhonci Cardiovascular: Regular Rate, Rhythm Capillary Refill: Less Than 3 Seconds Gastrointestinal: soft, abnormal bowel sounds (hypoactive x4); No distended Extremity: No Pedal Edema, Pedal Edema, Other (+ 1 andle edeam in both legs) Neurologic/Psychiatric: Alert, Disoriented, Other (RASS -3) Results Lab Laboratory Tests 11/08/22 04:55 11/09/22 03:51 Assessment/Plan Assessment/Plan see free text. Critical Care: Ventilator Management JAMES RODRIGUEZ MD Nov 09, 2022 08:43
[2022-11-09] MEDS: NOREPINEPHRINE 8 MG/250 ML 250 ML IV SCH ×2 (09:31→19:03)
--- NOTE | 2022-11-09 09:47 | Progress Note - Surgery ---
NAVJOT SNYDER 11/09/22 0947: Subjective Date Seen by a Provider: Nov 09, 2022 Time Seen by a Provider: 09:15 Subjective/Events-last exam Pt is laying on bed sedated on mechanical ventilation. Pt's condition remains unchanged from yesterday. Pt had repeat CXR that showed increasing infiltrates and/or edema through the lung larios. Pt has been scheduled for a tracheotomy and peg tube placement with Dr. Panchal. Review of Systems unable to obtain due to pt condition Objective Exam Vital Signs Date Time Temp Pulse Resp B/P (MAP) Pulse Ox O2 Delivery O2 Flow Rate FiO2 11/09/22 09:31 59 137/63 11/09/22 08:00 59 20 137/63 (87) 94 Mechanical Ventilator 100.00 11/09/22 07:57 57 20 94 100 11/09/22 07:53 36.8 11/09/22 07:00 58 11/09/22 07:00 58 20 139/62 (87) 88 Mechanical Ventilator 100.00 11/09/22 06:28 58 134/66 11/09/22 06:27 58 134/66 11/09/22 06:00 58 20 140/60 (86) 89 Mechanical Ventilator 100.00 11/09/22 05:35 58 134/66 11/09/22 05:00 57 20 134/66 (88) 90 Mechanical Ventilator 100.00 11/09/22 05:00 58 20 86 11/09/22 04:00 57 20 134/60 (84) 90 Mechanical Ventilator 100.00 11/09/22 04:00 90 Mechanical Ventilator 80 11/09/22 03:47 59 141/61 11/09/22 03:40 36.1 11/09/22 03:00 59 20 141/61 (87) 90 Mechanical Ventilator 100.00 11/09/22 02:46 57 20 95 100 11/09/22 02:41 56 119/58 11/09/22 02:00 57 20 134/61 (85) 92 Mechanical Ventilator 100.00 11/09/22 01:35 56 119/58 11/09/22 01:06 56 20 90 100 11/09/22 01:00 60 11/09/22 01:00 56 16 136/64 (88) 90 Mechanical Ventilator 100.00 11/09/22 00:00 57 16 125/61 (82) 91 Mechanical Ventilator 100.00 11/08/22 23:59 91 Mechanical Ventilator 80 11/08/22 23:54 36.9 11/08/22 23:47 56 124/61 11/08/22 23:40 56 124/61 11/08/22 23:00 58 16 120/56 (77) 91 Mechanical Ventilator 100.00 11/08/22 22:48 56 124/61 11/08/22 22:23 Mechanical Ventilator 100.00 11/08/22 22:21 56 16 91 100 11/08/22 22:10 56 124/61 11/08/22 22:00 56 16 124/61 (82) 90 Mechanical Ventilator 80.00 11/08/22 21:00 56 16 122/56 (78) 90 Mechanical Ventilator 80.00 11/08/22 20:00 58 16 130/59 (82) 93 Mechanical Ventilator 80.00 11/08/22 20:00 93 Mechanical Ventilator 80 11/08/22 19:52 58 129/58 11/08/22 19:42 36.6 11/08/22 19:40 58 129/58 11/08/22 19:13 58 129/58 11/08/22 19:00 60 11/08/22 19:00 60 16 133/60 (84) 95 Mechanical Ventilator 80.00 11/08/22 18:51 58 16 93 80 11/08/22 18:10 60 118/58 11/08/22 18:00 59 16 123/56 (78) 92 Mechanical Ventilator 80.00 11/08/22 17:00 60 16 118/58 (78) 94 Mechanical Ventilator 80.00 11/08/22 16:06 94 Mechanical Ventilator 80 11/08/22 16:00 36.7 11/08/22 16:00 60 17 117/55 (75) 94 Mechanical Ventilator 80.00 11/08/22 15:52 62 112/55 11/08/22 15:52 62 112/55 11/08/22 15:00 62 17 112/55 (74) 90 Mechanical Ventilator 80.00 11/08/22 14:00 64 16 122/56 (78) 92 Mechanical Ventilator 80.00 11/08/22 13:33 62 16 91 80 11/08/22 13:07 Mechanical Ventilator 80.00 11/08/22 13:00 61 16 123/58 (79) 90 Mechanical Ventilator 75.00 11/08/22 13:00 63 11/08/22 12:47 89 11/08/22 12:00 63 16 118/55 (76) 90 Mechanical Ventilator 75.00 11/08/22 11:54 63 113/51 11/08/22 11:53 36.5 11/08/22 11:34 92 Mechanical Ventilator 75 11/08/22 11:33 63 113/51 11/08/22 11:05 63 113/51 11/08/22 11:00 65 16 116/50 (72) 91 Mechanical Ventilator 75.00 11/08/22 10:23 63 16 91 75 11/08/22 10:00 63 16 108/49 (68) 91 Mechanical Ventilator 75.00 11/08/22 09:56 64 124/58 I & O 11/09/22 07:00 Intake Total 4940 ml Output Total 675 ml Balance 4265 ml Capillary Refill : Less Than 3 Seconds General Appearance: WD/WN, Chronically ill, Obese, Other (mechanical ventilation) Respiratory: Normal Breath Sounds, No Accessory Muscle Use, No Respiratory Distress, Other (course lung sounds diffusely, limited ) Cardiovascular: Regular Rate, Rhythm, No Murmur Gastrointestinal: abnormal bowel sounds (hypoactive x4), distended Extremity: Pedal Edema (+2 b/l pitting edema ), Swelling (+2 b/l pitting edema UE) Neurologic/Psychiatric: Other (sedated and on mechanical ventilation) Skin: Normal Color, Warm/Dry Results Lab Laboratory Tests 11/08/22 11:24: Glucometer 156H 11/08/22 18:21: Glucometer 170H 11/08/22 23:52: Glucometer 137H 11/09/22 00:32: Blood Gas Puncture Site RR, Blood Gas Patient Temperature 36.4, Arterial Blood p H 7.24*L, Arterial Blood Partial Pressure CO2 51H, Arterial Blood Partial Pressure O2 77L, Arterial Blood HCO3 22L, Arterial Blood Total CO2 23.1, Arterial Blood Oxygen Saturation 94, Arterial Blood Base Excess -4.9L, Maurisio Test YES-POS, Blood Gas Ventilator Setting YES, Blood Gas Inspired Oxygen 100% 11/09/22 03:51: White Blood Count 8.0, Red Blood Count 2.84L, Hemoglobin 8.5L, Hematocrit 26L, Mean Corpuscular Volume 92, Mean Corpuscular Hemoglobin 30, Mean Corpuscular Hemoglobin Concent 32, Red Cell Distribution Width 16.3H, Platelet Count 310, Mean Platelet Volume 11.1, Immature Granulocyte % (Auto) 3, Neutrophils (%) (Auto) 70, Lymphocytes (%) (Auto) 15, Monocytes (%) (Auto) 9, Eosinophils (%) (Auto) 3, Basophils (%) (Auto) 1, Neutrophils # (Auto) 5.6, Lymphocytes # (Auto) 1.2, Monocytes # (Auto) 0.7, Eosinophils # (Auto) 0.2, Basophils # (Auto) 0.0, Immature Granulocyte # (Auto) 0.3H, Sodium Level 138, Potassium Level 4.2, Chloride Level 109H, Carbon Dioxide Level 17L, Anion Gap 12, Blood Urea Nitrogen 39H, Creatinine 2.22H, Estimat Glomerular Filtration Rate 31, BUN/Creatinine Rat io 18, Glucose Level 149H, Calcium Level 7.9L, Magnesium Level 1.6, Triglyc erides Level 945#H 11/09/22 03:55: Blood Gas Puncture Site RR, Blood Gas Patient Temperature 36.1, Arterial Blood pH 7.31*L, Arterial Blood Partial Pressure CO2 42, Arterial Blood Partial Pressure O2 78L, Arterial Blood HCO3 21L, Arterial Blood Total CO2 21.9, Arterial Blood Oxygen Saturation 96, Arterial Blood Base Excess -4.8L, Maurisio Test YES-POS, Blood Gas Ventilator Setting YES, Blood Gas Inspired Oxygen 100% Microbiology 10/29/22 Urine Culture - Final, Complete NO GROWTH 10/29/22 MRSA Screen - Final, Complete MRSA not isolated 10/28/22 Blood Culture - Final, Complete No growth Radiology NAME: MARANDA BURNS [facility] REC#: [id number] PT STATUS: ADM IN : 1950 PHYSICIAN: CHICHI DRISCOLL MD ADMIT DATE: 10/28/22/ICU Signed Date of Exam:11/09/22 CHEST 1 VIEW, AP/PA ONLY INDICATION: Congestive heart failure, hypoxia. TECHNIQUE: Single view chest 5:20 AM. CORRELATION STUDY: 11/08/2022 FINDINGS: Significant limitations on the study. Poststernotomy change. Endotracheal tube tip remains at the level of the thoracic inlet. Right-sided central line is present, tip can be traced to the SVC but tip not visualized. Gastric tube is also likely present with tip not visualized. Heart size and mediastinum are enlarged and prominent. Opacities at both lung bases are present. Some of this may be largely due to soft tissue attenuations with possibility of edema and/or infiltrate also suspect. Overall appears slightly increased. IMPRESSION: 1. Significant limitations on this chest radiograph. Overall appears to be increasing infiltrate and/or edema through the lung larios. 2. Grossly stable appearance about the lines and tubes. Dictated by: Dictated on workstation # [id number] Dict: 11/09/22 0541 Trans: 11/09/22829 ALINE [id number] Interpreted by: GRACIE PERKINS DO Electronically signed by: GRACIE PERKINS DO 11/09/22829 Assessment/Plan Assessment/Plan Assessment/Plan 1. Respiratory failure requiring mechanical ventilation 2. Prolonged absence of BMs 3. Requiring tube feedings 4. Acute on chronic CHF 5.CKD III Pt has been scheduled for tracheotomy and PEG tube placement HOSSEIN PANCHAL DO 11/09/22 1327: Subjective Time Seen by a Provider: 12:08 Subjective/Events-last exam Pt seen and examined, sedated on vent. Pt has not had a BM since admission and nurse feels like abdomen is slightly distended. Review of Systems unable to obtain, pt sedated Objective Exam General Appearance: Chronically ill, Obese, Other (mechanical ventilation) Respiratory: No Accessory Muscle Use, No Respiratory Distress, Other (course lung sounds diffusely, limited ) Cardiovascular: Regular Rate, Rhythm, No Murmur Gastrointestinal: abnormal bowel sounds (hypoactive x4), distended Extremity: Pedal Edema (+2 b/l pitting edema ), Swelling (+2 b/l pitting edema UE) Assessment/Plan Assessment/Plan Assessment/Plan 1. Respiratory failure requiring mechanical ventilation 2. Prolonged absence of BMs 3. Requiring tube feedings 4. Acute on chronic CHF 5.CKD III Pt has been scheduled for tracheotomy and PEG tube placement. Will try some enemas and can do some miralax or Lactulose down NGT. I am not too concerned about the constipation at this time. Supervisory-Addendum Brief Verification & Attestation Participated in pt care: history, MDM, physical Personally performed: exam, history, MDM, supervision of care Care discussed with: Medical Student Procedures: n/a Verification and Attestation of Medical Student E/M Service A medical student performed and documented this service. I then reviewed and verified all information documented by the medical student and made modifications to such information, when appropriate. I personally performed a physical exam, medical decision making and then discussed any differences between the notes and made revisions as necessary to create one note. Hossein Panchal , 11/09/22 , 13:27 NAVJOT SNYDER Nov 09, 2022 09:47 HOSSEIN PANCHAL DO Nov 09, 2022 13:27
[2022-11-09] MEDS: ENOXAPARIN 40 MG/0.4 ML (LOVENOX) SYR SC SCH ×2 (10:30→23:43)
[2022-11-09] MEDS: NS IV 1000 ML 1,000 ML IV SCH (11:46)
[2022-11-10 02:07] VITALS: BP 109/81
[2022-11-10] MEDS: RT-ALBUTEROL/IPRATROPIUM 3 ML (DUONEB) VIAL INH SCH ×4 (02:07→14:58)
[2022-11-10] MEDS: fentaNYL DRIP PRE-MIX 250 ML IV SCH ×2 (02:19→12:32)
[2022-11-10 04:15] LABS: ABG BASE EXCESS -7.1 MMOL/L (-2.5-2.5); ABG OXYGEN SATURATION 94 % (94-100); ABG PCO2 43 MMHG (35-45); ABG PO2 76 MMHG (79-93)
[2022-11-10 04:16] LABS: ALLENS TEST YES-POS; INSPIRED O2 100%; PATIENT TEMP 37; VENTILATOR NO
[2022-11-10 04:17] LABS: ABG PH 7.26 (7.37-7.43)
[2022-11-10 04:28] LABS: BASOPHILS # (AUTO) 0.1 10^3/uL (0.0-0.1); BASOPHILS % (AUTO) 1 % (0-10); EOSINOPHILS # (AUTO) 0.3 10^3/uL (0.0-0.3); EOSINOPHILS % (AUTO) 3 % (0-10); HEMATOCRIT 27 % (40-54); HEMOGLOBIN 8.4 g/dL (13.3-17.7); LYMPHOCYTES % (AUTO) 13 % (12-44); MEAN CORPUSCULAR HEMOGLOBIN 29 pg (25-34); MEAN CORPUSCULAR HGB CONC 32 g/dL (32-36); MEAN CORPUSCULAR VOLUME 92 fL (80-99); MONOCYTES # (AUTO) 0.8 10^3/uL (0.0-1.0); MONOCYTES % (AUTO) 10 % (0-12); NEUTROPHILS # (AUTO) 5.8 10^3/uL (1.8-7.8); NEUTROPHILS % (AUTO) 70 % (42-75); PLATELET COUNT 322 10^3/uL (130-400); WHITE BLOOD COUNT 8.3 10^3/uL (4.3-11.0)
[2022-11-10] MEDS: NS IV 1000 ML 1,000 ML IV SCH (04:32)
[2022-11-10 04:49] LABS: CALCIUM 7.9 MG/DL (8.5-10.1); CREATININE SERUM 2.17 MG/DL (0.60-1.30); MAGNESIUM 1.5 MG/DL (1.6-2.4); POTASSIUM 4.3 MMOL/L (3.6-5.0)
[2022-11-10] MEDS: NOREPINEPHRINE 8 MG/250 ML 250 ML IV SCH (05:26)
[2022-11-10] MEDS: meTOprolol 5 MG/5 ML (LOPRESSOR) VIAL IV SCH ×3 (05:26→12:39)
[2022-11-10] MEDS: POTASSIUM CL 10MEQ/50ML IVPB 50 ML IV SCH (05:26)
[2022-11-10] MEDS: KCL 20 MEQ TAB (K-DUR) PO SCH (05:26)
[2022-11-10] MEDS: MAGNESIUM 1 GM/100 ML IVPB 100 ML IV SCH ×3 (05:26→07:05)
[2022-11-10] MEDS: inSUlin ASPART (NovoLOG) 1 UNIT/0.01 ML (CHARGE PER UNIT) SC SCH ×2 (05:26→12:40)
[2022-11-10] MEDS: PROPOFOL DRIP (ICU) 100 ML IV SCH ×3 (05:38→16:07)
--- NOTE | 2022-11-10 06:23 | Progress Note ---
Subjective Date Seen by a Provider: Nov 10, 2022 Time Seen by a Provider: 11:00 Subjective/Events-last exam Patient declining Kidney function worse Family updated and after I spoke to Taylor his daughter they wish to change him to comfort care and DC ventilator Objective Exam Last Set of Vital Signs Vital Signs Date Time Temp Pulse Resp B/P (MAP) Pulse Ox O2 Delivery O2 Flow Rate FiO2 11/10/22 06:00 72 32 143/80 (101) 96 Mechanical Ventilator 100.00 11/10/22 04:42 100 11/10/22 04:24 37.0 Capillary Refill : Less Than 3 Seconds I&O Intake and Output 11/10/22 00:00 Intake Total 1560 ml Output Total 1175 ml Balance 385 ml Intake Oral 0 ml IV Total 1500 ml Other 60 ml Output Urine Total 1175 ml General: Other (sedated) Lungs: Clear to Auscultation Heart: Regular Rate Results Lab Laboratory Tests 11/09/22 11:51: Glucometer 156H 11/09/22 17:40: Glucometer 151H 11/09/22 23:59: Glucometer 131H 11/10/22 04:05: Blood Gas Puncture Site LRAD, Blood Gas Patient Temperature 37, Arterial Blood pH 7.26*L, Arterial Blood Partial Pressure CO2 43, Arterial Blood Partial Pressure O2 76L, Arterial Blood HCO3 19L, Arterial Blood Total CO2 20.0L, Arterial Blood Oxygen Saturation 94, Arterial Blood Base Excess -7.1L, Maurisio T est YES-POS, Blood Gas Ventilator Setting NO, Blood Gas Inspired Oxygen 100% 11/10/22 04:12: White Blood Count 8.3, Red Blood Count 2.89L, Hemoglobin 8.4L, Hematocrit 27L, Mean Corpuscular Volume 92, Mean Corpuscular Hemoglobin 29, Mean Corpuscular Hemoglobin Concent 32, Red Cell Distribution Width 16.0H, Platelet Count 322, Mean Platelet Volume 11.0, Immature Granulocyte % (Auto) 4, Neutrophils (%) (Au to) 70, Lymphocytes (%) (Auto) 13, Monocytes (%) (Auto) 10, Eosinophils (%) (Auto) 3, Basophils (%) (Auto) 1, Neutrophils # (Auto) 5.8, Lymphocytes # (Auto) 1.0, Monocytes # (Auto) 0.8, Eosinophils # (Auto) 0.3, Basophils # (Auto) 0.1, Immature Granulocyte # (Auto) 0.3H, Sodium Level 139, Potassium Level 4.3, Chloride Level 111H, Carbon Dioxide Level 14L, Anion Gap 14, Blood Urea Nitrogen 40H, Creatinine 2.17H, Estimat Glomerular Filtration Rate 32, BUN/Creatinine Ratio 18, Glucose Level 132H, Calcium Level 7.9L, Magnesium Level 1.5L Microbiology 10/29/22 Urine Culture - Final, Complete NO GROWTH 10/29/22 MRSA Screen - Final, Complete MRSA not isolated 10/28/22 Blood Culture - Final, Complete No growth Assessment/Plan Assessment/Plan Assess & Plan/Chief Complaint 1. Acute respiratory failure: needs comfort care 2. UTI: Ruled out by urine culture. 3. Metabolic encephalopathy: Continue gentle hydration and correction of acute respiratory failure. 4. DVT prophylaxis: Continue Lovenox therapy. 5. Elevated troponin: Consult cardiology. 6. Elevated BUN, Creatinine: worse Diagnosis/Problems Diagnosis/Problems (1) Respiratory failure, acute and chronic (2) Acute on chronic diastolic heart failure with preserved ejection fraction Status: Acute (3) Noncompliance Status: Chronic (4) Hypertension Status: Chronic (5) PVD (peripheral vascular disease) Status: Chronic Clinical Quality Measures Admission Status Admission Dx ICU Dr Mcclure consult BiPAP Monitor JASPER Gibson DO Nov 10, 2022 06:23
[2022-11-10] MEDS: SENNOSIDES 8.6 MG (SENOKOT) TAB PO SCH (08:00)
[2022-11-10] MEDS: PANTOPRAZOLE 40 MG (PROTONIX) VIAL IV SCH (08:00)
[2022-11-10] MEDS: DOCUSATE SODIUM 10 MG/ML 10 ML UDC (COLACE) PO SCH (08:00)
[2022-11-10 08:04] VITALS: BP 99/50
--- NOTE | 2022-11-10 08:13 | Diagnostic Imaging Report ---
EXAMINATION: Chest, 1 view. HISTORY: Intubated. Respiratory failure. COMPARISON: 11/09/2022. FINDINGS: Stable position of the endotracheal tube. Stable right PICC. The enteric tube is not well seen distally. There is improved aeration in the lung bases. Stable cardiomegaly with central pulmonary vascular congestion. Likely small right pleural effusion. No pneumothorax. IMPRESSION: 1. Improved aeration in the lung bases which may represent improving atelectasis and/or edema. 2. Cardiomegaly with persistent central pulmonary vascular congestion. 3. Stable support devices as visualized. Dictated by: Dictated on workstation # [id number]
[2022-11-10] MEDS: DexMEDEtomidine 250 ML DRIP 250 ML IV SCH (10:08)
--- NOTE | 2022-11-10 10:12 | Tele-ICU Progress Note ---
Progress Note video rounds completed 71 y/o m with respiratory failure being mechanically ventilated Settings: 20/500/100%/12 Has been on vent for several weeks, awaiting possible trach and PEG Focused Exam Height, Weight, BMI Height: 5'10.00" Weight: 278lbs. 9.6oz. 126.597589je; 42.95 BMI Method:Stated Labs Laboratory Tests 11/10/22 04:12 Results Results/Procedures Lab Laboratory Tests 11/09/22 03:51 11/10/22 04:12 Results Labs Labs Laboratory Tests 11/09/22 11:51: Glucometer 156H 11/09/22 17:40: Glucometer 151H 11/09/22 23:59: Glucometer 131H 11/10/22 04:05: Blood Gas Puncture Site LRAD, Blood Gas Patient Temperature 37, Arterial Blood pH 7.26*L, Arterial Blood Partial Pressure CO2 43, Arterial Blood Partial Pressure O2 76L, Arterial Blood HCO3 19L, Arterial Blood Total CO2 20.0L, Arterial Blood Oxygen Saturation 94, Arterial Blood Base Excess -7.1L, Maurisio Test YES-POS, Blood Gas Ventilator Setting NO, Blood Gas Inspired Oxygen 100% 11/10/22 04:12: White Blood Count 8.3, Red Blood Count 2.89L, Hemoglobin 8.4L, Hematocrit 27L, Mean Corpuscular Volume 92, Mean Corpuscular Hemoglobin 29, Mean Corpuscular Hemoglobin Concent 32, Red Cell Distribution Width 16.0H, Platelet Count 322, Mean Platelet Volume 11.0, Immature Granulocyte % (Auto) 4, Neutrophils (%) (Auto) 70, Lymphocytes (%) (Auto) 13, Monocytes (%) (Auto) 10, Eosinophils (%) (Auto) 3, Basophils (%) (Auto) 1, Neutrophils # (Auto) 5.8, Lymphocytes # (Auto) 1.0, Monocytes # (Auto) 0.8, Eosinophils # (Auto) 0.3, Basophils # (Auto) 0.1, Immature Granulocyte # (Auto) 0.3H, Sodium Level 139, Potassium Level 4.3, Chloride Level 111H, Carbon Dioxide Level 14L, Anion Gap 14, Blood Urea Nitrogen 40H, Creatinine 2.17H, Estimat Glomerular Filtration Rate 32, BUN/Creatinine Ratio 18, Glucose Level 132H, Calcium Level 7.9L, Magnesium Level 1.5L Microbiology 11/29/22 Urine Culture - Final, Complete NO GROWTH 10/29/22 MRSA Screen - Final, Complete MRSA not isolated 10/28/22 Blood Culture - Final, Complete No growth Impression & Plan Impression & Plan respiratory failure, mecahnical ventilation Multiple medical problems PLAN: possible trach and PEG SHANNAN DOAN MD Nov 10, 2022 10:12
[2022-11-10 11:17] VITALS: BP 115/55
--- NOTE | 2022-11-10 12:08 | Progress Note - Surgery ---
NAVJOT SNYDER 11/10/22 1208: Subjective Date Seen by a Provider: Nov 10, 2022 Time Seen by a Provider: 10:00 Subjective/Events-last exam Pt is laying in bed sedated and on mechanical ventilator. Per nurse, pt's family spoke with Dr. Law and they will be moving him to comfort care later today. Pt's BP has been low this morning. Nurse states that she decreased his sedation and currently his BP seems to be improving, now 109/50 at 11am up from 96/59. Nurse gave the pt a soap suds enemax2 yesterday but pt still has not had a BM. Pt had repeat CXR that showed improvement of edema/atelectasis in lung bases. Per nurses notes, pt experienced an episode of afib this morning, does not seem to currently be in afib now. Review of Systems unable to obtain due sedation for mechanical ventilation Objective Exam Vital Signs Date Time Temp Pulse Resp B/P (MAP) Pulse Ox O2 Delivery O2 Flow Rate FiO2 11/10/22 11:26 37.6 11/10/22 11:17 78 20 89 100 11/10/22 11:00 78 20 109/50 (69) 91 Mechanical Ventilator 100.00 11/10/22 10:27 71 120/53 11/10/22 10:08 71 120/53 11/10/22 10:00 70 120/53 (75) 94 Mechanical Ventilator 100.00 11/10/22 10:00 93 96/59 11/10/22 09:00 93 20 96/59 (71) 94 Mechanical Ventilator 100.00 11/10/22 08:04 85 20 99 100 11/10/22 08:00 83 20 99/50 (66) 98 Mechanical Ventilator 100.00 11/10/22 07:48 99 Mechanical Ventilator 100 11/10/22 07:15 37.5 11/10/22 07:00 87 20 104/58 (73) 95 Mechanical Ventilator 100.00 11/10/22 07:00 88 11/10/22 06:00 72 32 143/80 (101) 96 Mechanical Ventilator 100.00 11/10/22 05:38 90 104/64 11/10/22 05:00 99 26 93 11/10/22 05:00 75 34 137/82 (100) 95 Mechanical Ventilator 100.00 11/10/22 04:42 94 Mechanical Ventilator 100 11/10/22 04:24 37.0 11/10/22 04:00 90 20 105/63 (77) 95 Mechanical Ventilator 100.00 11/10/22 03:00 95 20 109/61 (77) 94 Mechanical Ventilator 100.00 11/10/22 02:19 92 111/60 11/10/22 02:07 91 20 93 100 11/10/22 02:00 89 20 111/60 (77) 95 Mechanical Ventilator 100.00 11/10/22 01:00 87 20 113/62 (79) 95 Mechanical Ventilator 100.00 11/10/22 01:00 88 11/10/22 00:25 82 11/10/22 00:00 36.8 11/10/22 00:00 62 20 126/55 (78) 94 Mechanical Ventilator 100.00 11/09/22 23:59 95 Mechanical Ventilator 100 11/09/22 23:44 63 124/55 11/09/22 23:00 62 20 129/55 (79) 94 Mechanical Ventilator 100.00 11/09/22 22:00 61 20 134/63 (86) 95 Mechanical Ventilator 100.00 11/09/22 21:50 60 20 94 100 11/09/22 21:37 60 134/58 11/09/22 21:00 60 20 126/59 (81) 94 Mechanical Ventilator 100.00 11/09/22 20:00 60 20 133/62 (85) 95 Mechanical Ventilator 100.00 11/09/22 20:00 94 Mechanical Ventilator 100 11/09/22 19:44 36.6 11/09/22 19:03 59 136/62 11/09/22 19:00 61 20 132/60 (84) 96 Mechanical Ventilator 100.00 11/09/22 19:00 60 11/09/22 18:52 59 20 96 100 11/09/22 18:33 59 135/63 11/09/22 18:00 59 20 135/63 (87) 95 Mechanical Ventilator 100.00 11/09/22 17:00 59 20 135/62 (86) 96 Mechanical Ventilator 100.00 11/09/22 16:51 94 Mechanical Ventilator 100 11/09/22 16:42 61 141/63 11/09/22 16:38 61 141/63 11/09/22 16:00 61 20 141/63 (89) 95 Mechanical Ventilator 100.00 11/09/22 16:00 36.1 11/09/22 15:36 58 20 94 100 11/09/22 15:28 37.2 11/09/22 15:00 67 15 140/63 (88) 94 Mechanical Ventilator 100.00 11/09/22 14:37 58 139/62 11/09/22 14:37 58 139/62 11/09/22 14:00 59 20 138/64 (88) 92 Mechanical Ventilator 100.00 11/09/22 13:00 60 20 141/60 (87) 96 Mechanical Ventilator 100.00 11/09/22 12:59 59 11/09/22 12:16 95 Mechanical Ventilator 100 l I & O 11/10/22 07:00 Intake Total 1210 ml Output Total 1150 ml Balance 60 ml Capillary Refill : Less Than 3 Seconds General Appearance: Chronically ill, Obese Respiratory: No Accessory Muscle Use, No Respiratory Distress, Wheezing (faint and diffuse), Other (on mechanical ventilation ) Cardiovascular: Regular Rate, Rhythm, No Murmur, Other (heart sounds sound distant today ) Peripheral Pulses: 2+ Dorsalis Pedis (R), 2+ Left Dors-Pedis (L) Gastrointestinal: abnormal bowel sounds (absent), distended Extremity: Pedal Edema (b/l +1 pitting edema- improved from yesterday), Swelling (b/l UE +1 pitting edema-improved from yesterday ) Neurologic/Psychiatric: No Alert; Other (sedated and on mechanical ventilation) Skin: Normal Color, Warm/Dry Results Lab Laboratory Tests 11/09/22 17:40: Glucometer 151H 11/09/22 23:59: Glucometer 131H 11/10/22 04:05: Blood Gas Puncture Site LRAD, Blood Gas Patient Temperature 37, Arterial Blood pH 7.26*L, Arterial Blood Partial Pressure CO2 43, Arterial Blood Partial Pressure O2 76L, Arterial Blood HCO3 19L, Arterial Blood Total CO2 20.0L, Arterial Blood Oxygen Saturation 94, Arterial Blood Base Excess -7.1L, Maurisio Test YES-POS, Blood Gas Ventilator Setting NO, Blood Gas Inspired Oxygen 100% 11/10/22 04:12: White Blood Count 8.3, Red Blood Count 2.89L, Hemoglobin 8.4L, Hematocrit 27L, Mean Corpuscular Volume 92, Mean Corpuscular Hemoglobin 29, Mean Corpuscular Hemoglobin Concent 32, Red Cell Distribution Width 16.0H, Platelet Count 322, Mean Platelet Volume 11.0, Immature Granulocyte % (Auto) 4, Neutrophils (%) (Auto) 70, Lymphocytes (%) (Auto) 13, Monocytes (%) (Auto) 10, Eosinophils (%) (Auto) 3, Basophils (%) (Auto) 1, Neutrophils # (Auto) 5.8, Lymphocytes # (Auto) 1.0, Monocytes # (Auto) 0.8, Eosinophils # (Auto) 0.3, Basophils # (Auto) 0.1, Immature Granulocyte # (Auto) 0.3H, Sodium Level 139, Potassium Level 4.3, Chloride Level 111H, Carbon Dioxide Level 14L, Anion Gap 14, Blood Urea Nitrogen 40H, Creatinine 2.17H, Estimat Glomerular Filtration Rate 32, BUN/Creatinine Ratio 18, Glucose Level 132H, Calcium Level 7.9L, Magnesium Level 1.5L 11/10/22 11:25: Glucometer 157H Microbiology 10/29/22 Urine Culture - Final, Complete NO GROWTH 10/29/22 MRSA Screen - Final, Complete MRSA not isolated 10/28/22 Blood Culture - Final, Complete No growth Assessment/Plan Assessment/Plan Assessment/Plan 1. Respiratory failure requiring mechanical ventilation 2. Prolonged absence of BMs 3. Requiring tube feedings 4. Acute on chronic CHF 5.CKD III Per nurse, pt's family has decided to move him to comfort care. Pt has tracheotomy and PEG tube placement scheduled for 11/11 but plans are pending family's decision now that he is comfort care. MITCHEL AVILES DO 11/10/22 1256: Subjective Time Seen by a Provider: 12:13 Subjective/Events-last exam Pt seen and examined, sedated and intubated. Nurse states he has gained 16lbs, probably all fluid and is now having decreasing urine output. Review of Systems unable to obtain due sedation for mechanical ventilation Objective Exam General Appearance: Chronically ill, Obese Respiratory: No Accessory Muscle Use, No Respiratory Distress, Wheezing (faint and diffuse), Other (on mechanical ventilation ) Cardiovascular: Regular Rate, Rhythm, No Murmur, Other (heart sounds sound distant today ) Gastrointestinal: abnormal bowel sounds (absent), distended Extremity: Pedal Edema (b/l +1 pitting edema- improved from yesterday), Swelling (b/l UE +1 pitting edema-improved from yesterday ) Neurologic/Psychiatric: Other (sedated and on mechanical ventilation) Assessment/Plan Assessment/Plan Assessment/Plan 1. Respiratory failure requiring mechanical ventilation 2. Prolonged absence of BMs 3. Requiring tube feedings 4. Acute on chronic CHF 5.CKD III Per nurse, pt's family has decided to move him to comfort care. Will cancel tr acheotomy and PEG tube placement and can reschedule if anything changes. Will sign off for now. Supervisory-Addendum Brief Verification & Attestation Participated in pt care: history, MDM, physical Personally performed: exam, history, MDM, supervision of care Care discussed with: Medical Student Procedures: n/a Verification and Attestation of Medical Student E/M Service A medical student performed and documented this service. I then reviewed and verified all information documented by the medical student and made modifications to such information, when appropriate. I personally performed a physical exam, medical decision making and then discussed any differences between the notes and made revisions as necessary to create one note. Mitchel Aviles , 11/10/22 , 12:56 NAVJOT SNYDER Nov 10, 2022 12:08 MITCHEL AVILES DO Nov 10, 2022 12:56
[2022-11-10 14:58] VITALS: BP 114/56
[2022-11-10] MEDS ORDERED: ACETAMINOPHEN 650 MG SUPP (TYLENOL) PR PRN (15:00)
[2022-11-10] MEDS ORDERED: ONDANSETRON 4 MG/2 ML (SDV) Z0FRAN IVP PRN (15:00)
[2022-11-10] MEDS ORDERED: ARTIFICAL TEARS 0.4 ML UNIT DOSE (REFRESH PLUS) OU PRN (15:00)
[2022-11-10] MEDS ORDERED: SALIVA SUBSTITUTE 60 ML SPRAY(MOUTHKOTE) MM PRN (15:00)
[2022-11-10] MEDS ORDERED: RT-ALBUTEROL/IPRATROPIUM 3 ML (DUONEB) VIAL INH PRN (15:00)
[2022-11-10] MEDS ORDERED: morphine INJ 4 MG/ML 1 ML (VIAL/SYRINGE) IV PRN (15:00)
[2022-11-10] MEDS ORDERED: LORazepam 1 MG (ATIVAN) TAB SL PRN (15:00)
[2022-11-10] MEDS ORDERED: LORazepam INJ 2 MG/ML (ATIVAN) VIAL IVP PRN (15:00)
[2022-11-10] MEDS ORDERED: morphine (ROXINOL) 10 MG/0.5 ML oral conc 0.5 ML PO PRN (15:00)
[2022-11-10] MEDS ORDERED: GLYCOPYRROLATE 0.2 MG/ML (ROBINUL) 2 ML VIAL IV PRN (15:00)
[2022-11-10] MEDS ORDERED: BISACODYL 10 MG SUPP (DULCOLAX) PR PRN (15:00)
[2022-11-10] MEDS ORDERED: LORazepam ORAL CONCENTRATE 2 MG/ML 30 ML (ATIVAN) PO PRN (15:00)
[2022-11-10] MEDS ORDERED: PROMETHAZINE INJ 25 MG/ML (PHENERGAN) AMP IVP PRN (15:00)
--- NOTE | 2022-11-10 15:09 | Discharge Summary ---
Diagnosis/Chief Complaint Date of Admission Oct 28, 2022 at 19:33 Date of Discharge Discharge Diagnosis Acute on chronic respiratory failure SIDNEY noncompliant with CPAP PNA HTN JAMES CKD Anemia Reason Hospital Visit CC: Acute respiratory failure HPI: This is a 71 yr old male clinic pt of Dr. Moreno, who I accepted yesterday evening from [place] for higher level of care at ICU. He remains on BiPAP due to hypercapnic respiratory failure and acute kidney injury. He does have an elevated troponin, likely type 2 NSTEMI. So we'll consult Dr. Mcclure. BiPAP settings are 18/8 and 80%. Discharge Summary Discharge Physical Examination Allergies: Coded Allergies: No Known Drug Allergies (Verified , 05/17/19) Vitals & I&Os Vital Signs Date Time Temp Pulse Resp B/P (MAP) Pulse Ox O2 Delivery O2 Flow Rate FiO2 11/10/22 16:07 71 117/58 11/10/22 16:00 88 Mechanical Ventilator 100 11/10/22 16:00 20 100.00 11/10/22 11:26 37.6 Hospital Course Was the Problem List Reviewed?: Yes Lengthy course after he was transferred [place] [facility] [place] higher level of care and intubated. PNA was treated with broad spectrum abx. Patient was maintained on ventilator but started to decline. Kidney function worsened with oliguria and family decided against placement of PEG and trach and [facility] a [facility] and patient was terminally extubated and placed on comfort care and with family at bedside. Labs (last 24 hrs) Laboratory Tests 10/28/22 19:33: Lab Scanned Report Referred Lab Report 10/28/22 20:16: Blood Gas Puncture Site R RADIAL, Blood Gas Patient Temperature 38.9, Arterial Blood pH 7.33*L, Arterial Blood Partial Pressure CO2 62H, Arterial Blood Partial Pressure O2 134H, Arterial Blood HCO3 31H, Arterial Blood Total CO2 32.5H, Arterial Blood Oxygen Saturation 100, Arterial Blood Base Excess 5.5H, Maurisio Test NEG, Blood Gas Ventilator Setting YES, Blood Gas Inspired Oxygen 10% 10/28/22 21:16: Glucometer 116H 10/28/22 21:50: Blood Gas Puncture Site R RAD, Blood Gas Patient Temperature 37, Arterial Blood pH 7.28*L, Arterial Blood Partial Pressure CO2 75*H, Arterial Blood Partial Pressure O2 31*L, Arterial Blood HCO3 34H, Arterial Blood Total CO2 36.2H, Arterial Blood Oxygen Saturation 50L, Arterial Blood Base Excess 7.4H, Maurisio Test YES-POS, Blood Gas Ventilator Setting NO, Blood Gas Inspired Oxygen 80% 10/28/22 23:15: White Blood Count 6.9, Red Blood Count 3.57L, Hemoglobin 10.4L, Hematocrit 34L, Mean Corpuscular Volume 94, Mean Corpuscular Hemoglobin 29, Mean Corpuscular Hemoglobin Concent 31L, Red Cell Distribution Width 15.6H, Platelet Count 151, Mean Platelet Volume 10.7, Immature Granulocyte % (Auto) 1, Neutrophils (%) (Auto) 71, Lymphocytes (%) (Auto) 18, Monocytes (%) (Auto) 10, Eosinophils (%) (Auto) 1, Basophils (%) (Auto) 0, Neutrophils # (Auto) 5.0, Lymphocytes # (Auto) 1.2, Monocytes # (Auto) 0.7, Eosinophils # (Auto) 0.0, Basophils # (Auto) 0.0, Immature Granulocyte # (Auto) 0.1, Prothrombin Time 13.3, INR Comment 1.0, Activated Partial Thromboplast Time 30, D-Dimer 0.85H, Sodium Level 142, Potassium Level 4.9, Chloride Level 102, Carbon Dioxide Level 28, Anion Gap 12, Blood Urea Nitrogen 40H, Creatinine 1.72H, Estimat Glomerular Filtration Rate 42, BUN/Creatinine Ratio 23, Glucose Level 109H, Lactic Acid Level 0.62, Calcium Level 8.2L, Corrected Calcium 8.8, Total Bilirubin 0.3, Aspartate Amino Transf (AST/SGOT) 25, Alanine Aminotransferase (ALT/SGPT) 17, Alkaline Phosphatase 56, Troponin I 0.895*H, B-Type Natriuretic Peptide 159.5H, Total Protein 6.5, Albumin 3.3, Procalcitonin 0.18H 10/29/22 05:00: White Blood Count 6.7, Red Blood Count 3.52L, Hemoglobin 10.3L, Hematocrit 33L, Mean Corpuscular Volume 94, Mean Corpuscular Hemoglobin 29, Mean Corpuscular Hemoglobin Concent 31L, Red Cell Distribution Width 16.3H, Platelet Count 143, Mean Platelet Volume 11.3, Immature Granulocyte % (Auto) 1, Neutrophils (%) (Auto) 56, Lymphocytes (%) (Auto) 32, Monocytes (%) (Auto) 11, Eosinophils (%) (Auto) 1, Basophils (%) (Auto) 0, Neutrophils # (Auto) 3.7, Lymphocytes # (Auto) 2.1, Monocytes # (Auto) 0.7, Eosinophils # (Auto) 0.0, Basophils # (Auto) 0.0, Immature Granulocyte # (Auto) 0.1, Sodium Level 143, Potassium Level 5.6H, Chloride Level 103, Carbon Dioxide Level 26, Anion Gap 14, Blood Urea Nitrogen 38H, Creatinine 1.65H, Estimat Glomerular Filtration Rate 45, BUN/Creatinine Ratio 23, Glucose Level 93, Calcium Level 7.9L, Corrected Calcium 8.8, Total Bilirubin 0.3, Aspartate Amino Transf (AST/SGOT) 36H, Alanine Aminotransferase (ALT/SGPT) 14, Alkaline Phosphatase 50, Troponin I 0.752*H, Total Protein 6.8, Albumin 2.9L, Phosphorus Level 3.6, Magnesium Level 1.5L, Smear Scan YES 10/29/22 05:25: Glucometer 81 10/29/22 05:30: Blood Gas Puncture Site R RAD, Blood Gas Patient Temperature 37, Arterial Blood pH 7.28*L, Arterial Blood Partial Pressure CO2 69H, Arterial Blood Partial Pressure O2 106H, Arterial Blood HCO3 31H, Arterial Blood Total CO2 33.4H, Arterial Blood Oxygen Saturation 99, Arterial Blood Base Excess 4.9H, Maurisio Test YES-POS, Blood Gas Ventilator Setting NO, Blood Gas Inspired Oxygen 80% 10/29/22 05:40: Urine Color YELLOW, Urine Clarity SL CLOUDY, Urine pH 5.5, Urine Specific [place] 1.025H, Urine Protein 1+H, Urine Glucose (UA) NEGATIVE, Urine Ketones NEGATIVE, Urine Nitrite NEGATIVE, Urine Bilirubin NEGATIVE, Urine Urobilinogen 0.2, Urine Leukocyte Esterase TRACEH, Urine RBC (Auto) TRACE-IH, Urine RBC 2-5H, Urine WBC 5-10H, Urine Squamous Epithelial Cells 0-2, Urine Crystals PRESENTH, Urine Amorphous Sediment LARGE SOLIS URATESH, Urine Bacteria MODERATEH, Urine Casts NONE, Urine Mucus NEGATIVE, Urine Culture Indicated CULTURE PENDING 10/29/22 10:25: Potassium Level 4.4, Glucometer 99 10/29/22 16:46: Glucometer 127H 10/29/22 20:53: Glucometer 99 10/30/22 05:12: White Blood Count 6.7, Red Blood Count 3.59L, Hemoglobin 10.5L, Hematocrit 34L, Mean Corpuscular Volume 94, Mean Corpuscular Hemoglobin 29, Mean Corpuscular Hemoglobin Concent 31L, Red Cell Distribution Width 16.0H, Platelet Count 151, Mean Platelet Volume 10.7, Immature Granulocyte % (Auto) 1, Neutrophils (%) (Auto) 76H, Lymphocytes (%) (Auto) 15, Monocytes (%) (Auto) 7, Eosinophils (%) (Auto) 1, Basophils (%) (Auto) 0, Neutrophils # (Auto) 5.0, Lymphocytes # (Auto) 1.0, Monocytes # (Auto) 0.5, Eosinophils # (Auto) 0.1, Basophils # (Auto) 0.0, Immature Granulocyte # (Auto) 0.0, Sodium Level 144, Potassium Level 5.1H, Chloride Level 106, Carbon Dioxide Level 26, Anion Gap 12, Blood Urea Nitrogen 30H, Creatinine 1.18, Estimat Glomerular Filtration Rate 67, BUN/Creatinine Ratio 25, Glucose Level 95, Calcium Level 8.4L, Corrected Calcium 9.1, Phosphorus Level 2.9, Magnesium Level 1.9, Total Bilirubin 0.4, Aspartate Amino Transf (AST/SGOT) 21, Alanine Aminotransferase (ALT/SGPT) 15, Alkaline Phos phatase 54, Total Protein 6.4, Albumin 3.1L 10/30/22 06:46: Blood Gas Puncture Site R RAD, Blood Gas Patient Temperature 36.5, Arterial Blood pH 7.30*L, Arterial Blood Partial Pressure CO2 62H, Arterial Blood Partial Pressure O2 130H, Arterial Blood HCO3 30H, Arterial Blood Total CO2 32.3H, Arterial Blood Oxygen Saturation 99, Arterial Blood Base Excess 4.3H, Maurisio Test YES-POS, Blood Gas Ventilator Setting NO, Blood Gas Inspired Oxygen 80% 10/30/22 10:31: Glucometer 98 10/30/22 16:00: Glucometer 107 10/30/22 21:07: Glucometer 148H 10/31/22 03:46: White Blood Count 7.8, Red Blood Count 3.82L, Hemoglobin 11.1L, Hematocrit 35L, Mean Corpuscular Volume 93, Mean Corpuscular Hemoglobin 29, Mean Corpuscular Hemoglobin Concent 31L, Red Cell Distribution Width 15.6H, Platelet Count 167, Mean Platelet Volume 10.4, Immature Granulocyte % (Auto) 1, Neutrophils (%) (Auto) 74, Lymphocytes (%) (Auto) 16, Monocytes (%) (Auto) 7, Eosinophils (%) (Auto) 2, Basophils (%) (Auto) 0, Neutrophils # (Auto) 5.8, Lymphocytes # (Auto) 1.3, Monocytes # (Auto) 0.6, Eosinophils # (Auto) 0.2, Basophils # (Auto) 0.0, Immature Granulocyte # (Auto) 0.1, Sodium Level 141, Potassium Level 5.1H, Chloride Level 106, Carbon Dioxide Level 22, Anion Gap 13, Blood Urea Nitrogen 23H, Creatinine 1.08, Estimat Glomerular Filtration Rate 74, BUN/Creatinine Ratio 21, Glucose Level 187H, Calcium Level 8.8, Corrected Calcium 9.4, Phospho niels Level 2.5, Magnesium Level 2.1, Total Bilirubin 0.4, Aspartate Amino Transf (AST/SGOT) 18, Alanine Aminotransferase (ALT/SGPT) 11, Alkaline Phosphatase 60, Total Protein 6.9, Albumin 3.3 10/31/22 03:47: Blood Gas Puncture Site LRAD, Blood Gas Patient Temperature 37.1, Arterial Blood pH 7.31*L, Arterial Blood Partial Pressure CO2 59H, Arterial Blood Partial Pressure O2 55L, Arterial Blood HCO3 29H, Arterial Blood Total CO2 30.8, Arterial Blood Oxygen Saturation 89L, Arterial Blood Base Excess 3.3H, Maurisio Test YES-POS, Blood Gas Ventilator Setting NO, Blood Gas Inspired Oxygen 35% 10/31/22 06:14: Glucometer 175H 10/31/22 10:27: Glucometer 161H 10/31/22 15:46: Glucometer 119H 10/31/22 20:21: Glucometer 165H 11/01/22 03:48: White Blood Count 9.2, Red Blood Count 4.02L, Hemoglobin 11.8L, Hematocrit 37L, Mean Corpuscular Volume 92, Mean Corpuscular Hemoglobin 29, Mean Corpuscular Hemoglobin Concent 32, Red Cell Distribution Width 15.1H, Platelet Count 165, Mean Platelet Volume 10.1, Immature Granulocyte % (Auto) 1, Neutrophils (%) (Auto) 72, Lymphocytes (%) (Auto) 17, Monocytes (%) (Auto) 9, Eosinophils (%) (Auto) 1, Basophils (%) (Auto) 0, Neutrophils # (Auto) 6.6, Lymphocytes # (Auto) 1.5, Monocytes # (Auto) 0.9, Eosinophils # (Auto) 0.1, Basophils # (Auto) 0.0, Immature Granulocyte # (Auto) 0.1, Sodium Level 144, Potassium Level 5.1H, Chloride Level 108H, Carbon Dioxide Level 22, Anion Gap 14, Blood Urea Nitrogen 21H, Creatinine 1.01, Estimat Glomerular Filtration Rate 81, BUN/Creatinine Ratio 21, Glucose Level 164H, Calcium Level 9.0, Corrected Calcium 9.6, Ph osphorus Level 2.8, Magnesium Level 2.0, Total Bilirubin 0.6, Aspartate Amino Transf (AST/SGOT) 17, Alanine Aminotransferase (ALT/SGPT) 15, Alkaline Phosphatase 58, Total Protein 6.8, Albumin 3.2 11/01/22 05:00: Blood Gas Puncture Site LEFT RADIAL, Blood Gas Patient Temperature 36.2, Arterial Blood pH 7.35L, Arterial Blood Partial Pressure CO2 50H, Arterial Blood Partial Pressure O2 60L, Arterial Blood HCO3 27, Arterial Blood Total CO2 28.7, Arterial Blood Oxygen Saturation 92L, Arterial Blood Base Excess 1.9, Maurisio Test YES-POS, Blood Gas Ventilator Setting NO, Blood Gas Inspired Oxygen 40% 11/01/22 10:47: Glucometer 137H 11/01/22 13:50: White Blood Count 9.8, Red Blood Count 3.99L, Hemoglobin 11.6L, Hematocrit 37L, Mean Corpuscular Volume 92, Mean Corpuscular Hemoglobin 29, Mean Corpuscular Hemoglobin Concent 32, Red Cell Distribution Width 15.0H, Platelet Count 197, Mean Platelet Volume 10.3, Immature Granulocyte % (Auto) 1, Neutrophils (%) (Auto) 86H, Lymphocytes (%) (Auto) 6L, Monocytes (%) (Auto) 6, Eosinophils (%) (Auto) 1, Basophils (%) (Auto) 0, Neutrophils # (Auto) 8.4H, Lymphocytes # (Auto) 0.5L, Monocytes # (Auto) 0.6, Eosinophils # (Auto) 0.1, Basophils # (Auto) 0.0, Immature Granulocyte # (Auto) 0.1, Neutrophils % (Manual) 73, Lymphocytes % (Manual) 8, Monocytes % (Manual) 6, Eosinophils % (Manual) 1, Basophils % (Manual) 1, Band Neutrophils 11, Toxic Granulation 1+, Polychromasia SLIGHT, Basophilic Stippling SLIGHT, Anisocytosis SLIGHT, Sodium Level 143, Potassium Level 6.0H, Chloride Level 106, Carbon Dioxide Level 24, Anion Gap 13, Blood Urea Nitrogen 25H, Creatinine 1.10, Estimat Glomerular Filtration Rate 73, BUN/Creatinine Ratio 23, Glucose Level 169H, Calcium Level 9.1, Triglycerides Level 158H 11/01/22 14:51: Blood Gas Puncture Site RT RADIAL, Blood Gas Patient Temperature 36.1, Arterial Blood pH 7.38, Arterial Blood Partial Pressure CO2 47H, Arterial Blood Partial Pressure O2 80, Arterial Blood HCO3 27, Arterial Blood Total CO2 28.7, Arterial Blood Oxygen Saturation 97, Arterial Blood Base Excess 2.4, Maurisio Test YES-POS, Blood Gas Ventilator Setting NO, Blood Gas Inspired Oxygen 65% 11/01/22 18:14: Glucometer 163H 11/02/22 00:04: Glucometer 141H 11/02/22 01:05: Blood Gas Puncture Site RIGHT RADIAL, Blood Gas Patient Temperature 37, Arterial Blood pH 7.37, Arterial Blood Partial Pressure CO2 50H, Arterial Blood Partial Pressure O2 74L, Arterial Blood HCO3 28H, Arterial Blood Total CO2 29.8, Arterial Blood Oxygen Saturation 95, Arterial Blood Base Excess 3.4H, Maurisio Test YES-POS, Blood Gas Ventilator Setting YES, Blood Gas Inspired Oxygen NA 11/02/22 03:55: Blood Gas Puncture Site RIGHT RADIAL, Blood Gas Patient Temperature 98.6, Arterial Blood pH 7.38, Arterial Blood Partial Pressure CO2 50H, Arterial Blood Partial Pressure O2 69L, Arterial Blood HCO3 29H, Arterial Blood Total CO2 30.4, Arterial Blood Oxygen Saturation 94, Arterial Blood Base Excess 4.1H, Maurisio Test YES-POS, Blood Gas Ventilator Setting YES, Blood Gas Inspired Oxygen NA 11/02/22 04:11: White Blood Count 20.1H, Red Blood Count 3.77L, Hemoglobin 11.7L, Hematocrit 35L , Mean Corpuscular Volume 92, Mean Corpuscular Hemoglobin 31, Mean Corpuscular Hemoglobin Concent 34, Red Cell Distribution Width 16.0H, Platelet Count 306, Mean Platelet Volume 9.6, Immature Granulocyte % (Auto) 14, Neutrophils (%) (Auto) 77H, Lymphocytes (%) (Auto) 5L, Monocytes (%) (Auto) 4, Eosinophils (%) (Auto) 0, Basophils (%) (Auto) 1, Neutrophils # (Auto) 15.4H, Lymphocytes # (Auto) 1.0, Monocytes # (Auto) 0.7, Eosinophils # (Auto) 0.0, Basophils # (Auto) 0.1, Immature Granulocyte # (Auto) 2.9H, Sodium Level 137, Potassium Level 5.3H, Chloride Level 103, Carbon Dioxide Level 22, Anion Gap 12, Blood Urea Nitrogen 45H, Creatinine 1.09, Estimat Glomerular Filtration Rate 73, BUN/Creatinine Ratio 41, Glucose Level 166H, Calcium Level 8.8, Corrected Calcium 9.7, Phosphorus Level 4.3, Magnesium Level 2.2, Total Bilirubin 0.3, Aspartate Amino Transf (AST/SGOT) 20, Alanine Aminotransferase (ALT/SGPT) 22, Alkaline Phosphatase 53, Total Protein 5.3L, Albumin 2.9L 11/02/22 17:39: Glucometer 144H 11/02/22 23:55: Glucometer 151H 11/03/22 03:19: White Blood Count 7.6, Red Blood Count 3.51L, Hemoglobin 10.4L, Hematocrit 32L, Mean Corpuscular Volume 90, Mean Corpuscular Hemoglobin 30, Mean Corpuscular Hemoglobin Concent 33, Red Cell Distribution Width 15.2H, Platelet Count 220, Mean Platelet Volume 10.3, Immature Granulocyte % (Auto) 0, Neutrophils (%) (Auto) 77H, Lymphocytes (%) (Auto) 12, Monocytes (%) (Auto) 7, Eosinophils (%) (Auto) 4, Basophils (%) (Auto) 0, Neutrophils # (Auto) 5.9, Lymphocytes # (Auto) 0.9L, Monocytes # (Auto) 0.5, Eosinophils # (Auto) 0.3, Basophils # (Auto) 0.0, Immature Granulocyte # (Auto) 0.0, Sodium Level 140, Potassium Level 3.3L, Chloride Level 104, Carbon Dioxide Level 22, Anion Gap 14, Blood Urea Nitrogen 21H, Creatinine 0.92, Estimat Glomerular Filtration Rate 90, BUN/Creatinine Rat io 23, Glucose Level 131H, Calcium Level 8.0L, Corrected Calcium 9.1, Phosphorus Level 3.1, Magnesium Level 1.2L, Total Bilirubin 0.8, Aspartate Amino Transf (AST/SGOT) 12, Alanine Aminotransferase (ALT/SGPT) 6, Alkaline Phosphatase 52, Total Protein 6.4, Albumin 2.6L, Triglycerides Level 689#H 11/03/22 03:25: Blood Gas Puncture Site LEFT RADIAL, Blood Gas Patient Temperature 36.2, Arterial Blood pH 7.44H, Arterial Blood Partial Pressure CO2 45, Arterial Blood Partial Pressure O2 57L, Arterial Blood HCO3 31H, Arterial Blood Total CO2 32.0H , Arterial Blood Oxygen Saturation 91L, Arterial Blood Base Excess 6.2H, Maurisio Test YES-POS, Blood Gas Ventilator Setting YES, Blood Gas Inspired Oxygen NA 11/03/22 11:52: Glucometer 152H 11/03/22 18:42: Glucometer 157H 11/03/22 23:55: Glucometer 142H 11/04/22 03:29: White Blood Count 7.3, Red Blood Count 3.54L, Hemoglobin 10.6L, Hematocrit 32L, Mean Corpuscular Volume 90, Mean Corpuscular Hemoglobin 30, Mean Corpuscular Hemoglobin Concent 33, Red Cell Distribution Width 15.1H, Platelet Count 245, Mean Platelet Volume 10.3, Immature Granulocyte % (Auto) 1, Neutrophils (%) (Auto) 74, Lymphocytes (%) (Auto) 12, Monocytes (%) (Auto) 7, Eosinophils (%) ( Auto) 6, Basophils (%) (Auto) 0, Neutrophils # (Auto) 5.4, Lymphocytes # (Auto) 0.9L, Monocytes # (Auto) 0.5, Eosinophils # (Auto) 0.4H, Basophils # (Auto) 0.0, Immature Granulocyte # (Auto) 0.1, Sodium Level 137, Potassium Level 3.5L, Chloride Level 98, Carbon Dioxide Level 23, Anion Gap 16H, Blood Urea Nitrogen 23H, Creatinine 1.14, Estimat Glomerular Filtration Rate 70, BUN/Creatinine Ratio 20, Glucose Level 164H, Calcium Level 8.7, Corrected Calcium 9.7, Phosphorus Level 3.8, Magnesium Level 1.8, Total Bilirubin 0.9, Aspartate Amino Transf (AST/SGOT) 14, Alanine Aminotransferase (ALT/SGPT) 10, Alkaline Phosphatase 54, Total Protein 6.9, Albumin 2.7L 11/04/22 03:32: Blood Gas Puncture Site RIGHT RADIAL, Blood Gas Patient Temperature 36.2, Arterial Blood pH 7.44H, Arterial Blood Partial Pressure CO2 46H, Arterial Blood Partial Pressure O2 58L, Arterial Blood HCO3 31H, Arterial Blood Total CO2 32.6H , Arterial Blood Oxygen Saturation 90L, Arterial Blood Base Excess 6.8H, Maurisio Test YES-POS, Blood Gas Ventilator Setting YES, Blood Gas Inspired Oxygen 75% 11/04/22 12:02: Glucometer 183H 11/04/22 17:45: Glucometer 185H 11/05/22 00:02: Glucometer 181H 11/05/22 04:20: Blood Gas Puncture Site RIGHT RADIAL, Blood Gas Patient Temperature 37, Arterial Blood pH 7.38, Arterial Blood Partial Pressure CO2 50H, Arterial Blood Partial Pressure O2 71L, Arterial Blood HCO3 29H, Arterial Blood Total CO2 30.1, Arterial Blood Oxygen Saturation 93L, Arterial Blood Base Excess 3.8H, Maurisio Test YES-POS, Blood Gas Ventilator Setting YES, Blood Gas Inspired Oxygen 60% 11/05/22 04:40: White Blood Count 6.7, Red Blood Count 3.37L, Hemoglobin 9.6L, Hematocrit 31L, Mean Corpuscular Volume 92, Mean Corpuscular Hemoglobin 29, Mean Corpuscular Hemoglobin Concent 31L, Red Cell Distribution Width 15.6H, Platelet Count 269, Mean Platelet Volume 10.4, Immature Granulocyte % (Auto) 1, Neutrophils (%) (Auto) 67, Lymphocytes (%) (Auto) 18, Monocytes (%) (Auto) 8, Eosinophils (%) (Auto) 5, Basophils (%) (Auto) 1, Neutrophils # (Auto) 4.5, Lymphocytes # (Auto) 1.2, Monocytes # (Auto) 0.6, Eosinophils # (Auto) 0.4H, Basophils # (Auto) 0.0, Immature Granulocyte # (Auto) 0.1, Sodium Level 140, Potassium Level 4.1, Chloride Level 102, Carbon Dioxide Level 26, Anion Gap 12, Blood Urea Nitrogen 28H, Creatinine 1.47H, Estimat Glomerular Filtration Rate 51, BUN/Creatinine Ratio 19, Glucose Level 205H, Calcium Level 8.7, Corrected Calcium 9.8, Phospho niels Level 3.9, Magnesium Level 1.8, Total Bilirubin 0.8, Aspartate Amino Transf (AST/SGOT) 26, Alanine Aminotransferase (ALT/SGPT) 9, Alkaline Phosphatase 61, Total Protein 6.6, Albumin 2.6L, Triglycerides Level 196H 11/05/22 11:48: Glucometer 200H 11/05/22 17:26: Glucometer 196H 11/06/22 00:07: Glucometer 194H 11/06/22 04:30: White Blood Count 6.8, Red Blood Count 3.37L, Hemoglobin 9.7L, Hematocrit 31L, Mean Corpuscular Volume 92, Mean Corpuscular Hemoglobin 29, Mean Corpuscular Hemoglobin Concent 31L, Red Cell Distribution Width 15.9H, Platelet Count 277, Mean Platelet Volume 10.4, Immature Granulocyte % (Auto) 1, Neutrophils (%) (Auto) 69, Lymphocytes (%) (Auto) 15, Monocytes (%) (Auto) 10, Eosinophils (%) (Auto) 4, Basophils (%) (Auto) 1, Neutrophils # (Auto) 4.7, Lymphocytes # (Auto) 1.0, Monocytes # (Auto) 0.7, Eosinophils # (Auto) 0.3, Basophils # (Auto) 0.0, I mmature Granulocyte # (Auto) 0.1, Blood Gas Puncture Site LEFT RADIAL, Blood Gas Patient Temperature 36.6, Arterial Blood pH 7.34*L, Arterial Blood Partial Pressure CO2 54H, Arterial Blood Partial Pressure O2 68L, Arterial Blood HCO3 28H, Arterial Blood Total CO2 30.0, Arterial Blood Oxygen Saturation 92L, Arterial Blood Base Excess 3.0H, Maurisio Test YES-POS, Blood Gas Ventilator Sett ing YES, Blood Gas Inspired Oxygen 65%, Sodium Level 141, Potassium Level 3.9, Chloride Level 105, Carbon Dioxide Level 25, Anion Gap 11, Blood Urea Nitrogen 28H, Creatinine 1.39H, Estimat Glomerular Filtration Rate 55, BUN/Creatinine Ratio 20, Glucose Level 206H, Calcium Level 8.8, Corrected Calcium 9.9, Phosphorus Level 3.4, Magnesium Level 1.6, Total Bilirubin 0.8, Aspartate Amino Transf (AST/SGOT) 33, Alanine Aminotransferase (ALT/SGPT) 14, Alkaline Phosphatase 68, Total Protein 6.7, Albumin 2.6L 11/06/22 13:01: Glucometer 213H 11/06/22 18:27: Glucometer 187H 11/07/22 04:15: White Blood Count 7.9, Red Blood Count 3.16L, Hemoglobin 8.9L, Hematocrit 29L, Mean Corpuscular Volume 93, Mean Corpuscular Hemoglobin 28, Mean Corpuscular Hemoglobin Concent 30L, Red Cell Distribution Width 16.0H, Platelet Count 269, Mean Platelet Volume 10.4, Immature Granulocyte % (Auto) 2, Neutrophils (%) (Auto) 66, Lymphocytes (%) (Auto) 16, Monocytes (%) (Auto) 11, Eosinophils (%) (Auto) 5, Basophils (%) (Auto) 1, Neutrophils # (Auto) 5.2, Lymphocytes # (Auto) 1.3, Monocytes # (Auto) 0.8, Eosinophils # (Auto) 0.4H, Basophils # (Auto) 0.1, Immature Granulocyte # (Auto) 0.1, Sodium Level 140, Potassium Level 4.4, Chloride Level 106, Carbon Dioxide Level 23, Anion Gap 11, Blood Urea Nitrogen 34H, Creatinine 2.08H, Estimat Glomerular Filtration Rate 34, BUN/Creatinine Ratio 16, Glucose Level 192H, Calcium Level 8.7, Corrected Calcium 10.0, Phosphorus Level 3.9, Magnesium Level 1.8, Total Bilirubin 1.1H, Aspartate Amino Transf (AST/SGOT) 60H, Alanine Aminotransferase (ALT/SGPT) 17, Alkaline Phosphatase 70, Total Protein 6.5, Albumin 2.4L, Triglycerides Level 174H 11/07/22 04:22: Blood Gas Puncture Site LRAD, Blood Gas Patient Temperature 36.6, Arterial Blood pH 7.32*L, Arterial Blood Partial Pressure CO2 51H, Arterial Blood Partial Pressure O2 64L, Arterial Blood HCO3 26, Arterial Blood Total CO2 27.7, Arterial Blood Oxygen Saturation 92L, Arterial Blood Base Excess 0.6, Maurisio Test YES-POS, Blood Gas Ventilator Setting YES, Blood Gas Inspired Oxygen 65% 11/07/22 11:37: Glucometer 175H 11/07/22 17:45: Glucometer 166H 11/08/22 04:55: White Blood Count 8.4, Red Blood Count 2.92L, Hemoglobin 8.7L, Hematocrit 27L, Mean Corpuscular Volume 93, Mean Corpuscular Hemoglobin 30, Mean Corpuscular Hemoglobin Concent 32, Red Cell Distribution Width 16.0H, Platelet Count 289, Mean Platelet Volume 11.0, Immature Granulocyte % (Auto) 3, Neutrophils (%) (Auto) 71, Lymphocytes (%) (Auto) 14, Monocytes (%) (Auto) 9, Eosinophils (%) (Auto) 3, Basophils (%) (Auto) 1, Neutrophils # (Auto) 5.9, Lymphocytes # (Auto) 1.2, Monocytes # (Auto) 0.7, Eosinophils # (Auto) 0.3, Basophils # (Auto) 0.1, Immature Granulocyte # (Auto) 0.2H, Sodium Level 138, Potassium Level 4.2, Chloride Level 106, Carbon Dioxide Level 19L, Anion Gap 13, Blood Urea Nitrogen 35H, Creatinine 2.01H, Estimat Glomerular Filtration Rate 35, BUN/Creatinine Ratio 17, Glucose Level 170H, Calcium Level 8.2L, Corrected Calcium 9.6, Phosphorus Level 4.1, Magnesium Level 1.9, Total Bilirubin 1.0, Aspartate Amino Transf (AST/SGOT) 41H, Alanine Aminotransferase (ALT/SGPT) 26, Alkaline P hosphatase 74, Total Protein 6.5, Albumin 2.2L 11/08/22 05:00: Blood Gas Puncture Site L RAD, Blood Gas Patient Temperature 37.2, Arterial Blood pH 7.30*L, Arterial Blood Partial Pressure CO2 51H, Arterial Blood Partial Pressure O2 73L, Arterial Blood HCO3 24, Arterial Blood Total CO2 25.6, Arterial Blood Oxygen Saturation 92L, Arterial Blood Base Excess -1.5, Maurisio Test YES- POS, Blood Gas Ventilator Setting YES, Blood Gas Inspired Oxygen 75% 11/08/22 11:24: Glucometer 156H 11/08/22 18:21: Glucometer 170H 11/08/22 23:52: Glucometer 137H 11/09/22 00:32: Blood Gas Puncture Site RR, Blood Gas Patient Temperature 36.4, Arterial Blood pH 7.24*L, Arterial Blood Partial Pressure CO2 51H, Arterial Blood Partial Pressure O2 77L, Arterial Blood HCO3 22L, Arterial Blood Total CO2 23.1, Arterial Blood Oxygen Saturation 94, Arterial Blood Base Excess -4.9L, Maurisio Test YES-POS, Blood Gas Ventilator Setting YES, Blood Gas Inspired Oxygen 100% 11/09/22 03:51: White Blood Count 8.0, Red Blood Count 2.84L, Hemoglobin 8.5L, Hematocrit 26L, Mean Corpuscular Volume 92, Mean Corpuscular Hemoglobin 30, Mean Corpuscular Hemoglobin Concent 32, Red Cell Distribution Width 16.3H, Platelet Count 310, Mean Platelet Volume 11.1, Immature Granulocyte % (Auto) 3, Neutrophils (%) (Auto) 70, Lymphocytes (%) (Auto) 15, Monocytes (%) (Auto) 9, Eosinophils (%) (Auto) 3, Basophils (%) (Auto) 1, Neutrophils # (Auto) 5.6, Lymphocytes # (Auto) 1.2, Monocytes # (Auto) 0.7, Eosinophils # (Auto) 0.2, Basophils # (Auto) 0.0, Immature Granulocyte # (Auto) 0.3H, Sodium Level 138, Potassium Level 4.2, Chloride Level 109H, Carbon Dioxide Level 17L, Anion Gap 12, Blood Urea Nitrogen 39H, Creatinine 2.22H, Estimat Glomerular Filtration Rate 31, BUN/Creatinine Ratio 18, Glucose Level 149H, Calcium Level 7.9L, Magnesium Level 1.6, T riglycerides Level 945#H 11/09/22 03:55: Blood Gas Puncture Site RR, Blood Gas Patient Temperature 36.1, Arterial Blood pH 7.31*L, Arterial Blood Partial Pressure CO2 42, Arterial Blood Partial Pressure O2 78L, Arterial Blood HCO3 21L, Arterial Blood Total CO2 21.9, Arterial Blood Oxygen Saturation 96, Arterial Blood Base Excess -4.8L, Maurisio Test YES-POS, Blood Gas Ventilator Setting YES, Blood Gas Inspired Oxygen 100% 11/09/22 11:51: Glucometer 156H 11/09/22 17:40: Glucometer 151H 11/09/22 23:59: Glucometer 131H 11/10/22 04:05: Blood Gas Puncture Site LRAD, Blood Gas Patient Temperature 37, Arterial Blood pH 7.26*L, Arterial Blood Partial Pressure CO2 43, Arterial Blood Partial Pressure O2 76L, Arterial Blood HCO3 19L, Arterial Blood Total CO2 20.0L, Arterial Blood Oxygen Saturation 94, Arterial Blood Base Excess -7.1L, Maurisio Test YES-POS, Blood Gas Ventilator Setting NO, Blood Gas Inspired Oxygen 100% 11/10/22 04:12: White Blood Count 8.3, Red Blood Count 2.89L, Hemoglobin 8.4L, Hematocrit 27L, Mean Corpuscular Volume 92, Mean Corpuscular Hemoglobin 29, Mean Corpuscular Hemoglobin Concent 32, Red Cell Distribution Width 16.0H, Platelet Count 322, Mean Platelet Volume 11.0, Immature Granulocyte % (Auto) 4, Neutrophils (%) (Auto) 70, Lymphocytes (%) (Auto) 13, Monocytes (%) (Auto) 10, Eosinophils (%) (Auto) 3, Basophils (%) (Auto) 1, Neutrophils # (Auto) 5.8, Lymphocytes # (Auto) 1.0, Monocytes # (Auto) 0.8, Eosinophils # (Auto) 0.3, Basophils # (Auto) 0.1, Immature Granulocyte # (Auto) 0.3H, Sodium Level 139, Potassium Level 4.3, Chl oride Level 111H, Carbon Dioxide Level 14L, Anion Gap 14, Blood Urea Nitrogen 40H, Creatinine 2.17H, Estimat Glomerular Filtration Rate 32, BUN/Creatinine Ratio 18, Glucose Level 132H, Calcium Level 7.9L, Magnesium Level 1.5L 11/10/22 11:25: Glucometer 157H Microbiology 10/29/22 Urine Culture - Final, Complete NO GROWTH 10/29/22 MRSA Screen - Final, Complete MRSA not isolated 10/28/22 Blood Culture - Final, Complete No growth Pending Labs Microbiology Date/Time Source Procedure Growth Status 10/29/22 05:40 Urine Not Otherwise Specified Urine Culture - Final NO GROWTH Complete 10/29/22 05:40 Nasal MRSA Screen - Final MRSA not isolated Complete 10/28/22 23:15 Peripheral Rt Hand Blood Culture - Final No growth Complete 10/28/22 23:15 Peripheral Rt Ac Blood Culture - Final No growth Complete Laboratory Tests 10/28/22 19:33: Lab Scanned Report Referred Lab Report 10/28/22 20:16: Blood Gas Puncture Site R RADIAL, Blood Gas Patient Temperature 38.9, Arterial Blood pH 7.33, Arterial Blood Partial Pressure CO2 62, Arterial Blood Partial Pressure O2 134, Arterial Blood HCO3 31, Arterial Blood Total CO2 32.5, Arterial Blood Oxygen Saturation 100, Arterial Blood Base Excess 5.5, Maurisio Test NEG, Blood Gas Ventilator Setting YES, Blood Gas Inspired Oxygen 10% 10/28/22 21:16: Glucometer 116 10/28/22 21:50: Blood Gas Puncture Site R RAD, Blood Gas Patient Temperature 37, Arterial Blood pH 7.28, Arterial Blood Partial Pressure CO2 75, Arterial Blood Partial Pressure O2 31, Arterial Blood HCO3 34, Arterial Blood Total CO2 36.2, Arterial Blood Oxygen Saturation 50, Arterial Blood Base Excess 7.4, Maurisio Test YES-POS, Blood Gas Ventilator Setting NO, Blood Gas Inspired Oxygen 80% 10/28/22 23:15: White Blood Count 6.9, Red Blood Count 3.57, Hemoglobin 10.4, Hematocrit 34, Mean Corpuscular Volume 94, Mean Corpuscular Hemoglobin 29, Mean Corpuscular Hemoglobin Concent 31, Red Cell Distribution Width 15.6, Platelet Count 151, Mean Platelet Volume 10.7, Immature Granulocyte % (Auto) 1, Neutrophils (%) (Auto) 71, Lymphocytes (%) (Auto) 18, Monocytes (%) (Auto) 10, Eosinophils (%) (Auto) 1, Basophils (%) (Auto) 0, Neutrophils # (Auto) 5.0, Lymphocytes # (Auto) 1.2, Monocytes # (Auto) 0.7, Eosinophils # (Auto) 0.0, Basophils # (Auto) 0.0, Immature Granulocyte # (Auto) 0.1, Prothrombin Time 13.3, INR Comment 1.0, Act ivated Partial Thromboplast Time 30, D-Dimer 0.85, Sodium Level 142, Potassium Level 4.9, Chloride Level 102, Carbon Dioxide Level 28, Anion Gap 12, Blood Urea Nitrogen 40, Creatinine 1.72, Estimat Glomerular Filtration Rate 42, BUN/Creatinine Ratio 23, Glucose Level 109, Lactic Acid Level 0.62, Calcium Level 8.2, Corrected Calcium 8.8, Total Bilirubin 0.3, Aspartate Amino Transf ( AST/SGOT) 25, Alanine Aminotransferase (ALT/SGPT) 17, Alkaline Phosphatase 56, Troponin I 0.895, B-Type Natriuretic Peptide 159.5, Total Protein 6.5, Albumin 3.3, Procalcitonin 0.18 10/29/22 05:00: White Blood Count 6.7, Red Blood Count 3.52, Hemoglobin 10.3, Hematocrit 33, Mean Corpuscular Volume 94, Mean Corpuscular Hemoglobin 29, Mean Corpuscular Hemoglobin Concent 31, Red Cell Distribution Width 16.3, Platelet Count 143, Mean Platelet Volume 11.3, Immature Granulocyte % (Auto) 1, Neutrophils (%) (Auto) 56, Lymphocytes (%) (Auto) 32, Monocytes (%) (Auto) 11, Eosinophils (%) (Auto) 1, Basophils (%) (Auto) 0, Neutrophils # (Auto) 3.7, Lymphocytes # (Auto) 2.1, Monocytes # (Auto) 0.7, Eosinophils # (Auto) 0.0, Basophils # (Auto) 0.0, Immature Granulocyte # (Auto) 0.1, Sodium Level 143, Potassium Level 5.6, Chloride Level 103, Carbon Dioxide Level 26, Anion Gap 14, Blood Urea Nitrogen 38, Creatinine 1.65, Estimat Glomerular Filtration Rate 45, BUN/Creatinine Ratio 23, Glucose Level 93, Calcium Level 7.9, Corrected Calcium 8.8, Total Bilirubin 0.3, Aspartate Amino Transf (AST/SGOT) 36, Alanine Aminotransferase (ALT/SGPT) 14, Alkaline Phosphatase 50, Troponin I 0.752, Total Protein 6.8, Albumin 2.9, Phosphorus Level 3.6, Magnesium Level 1.5, Smear Scan YES 10/29/22 05:25: Glucometer 81 10/29/22 05:30: Blood Gas Puncture Site R RAD, Blood Gas Patient Temperature 37, Arterial Blood pH 7.28, Arterial Blood Partial Pressure CO2 69, Arterial Blood Partial Pressure O2 106, Arterial Blood HCO3 31, Arterial Blood Total CO2 33.4, Arterial Blood Oxygen Saturation 99, Arterial Blood Base Excess 4.9, Maurisio Test YES-POS, Blood Gas Ventilator Setting NO, Blood Gas Inspired Oxygen 80% 10/29/22 05:40: Urine Color YELLOW, Urine Clarity SL CLOUDY, Urine pH 5.5, Urine Specific [place] 1.025, Urine Protein 1+, Urine Glucose (UA) NEGATIVE, Urine Ketones NEGATIVE, Urine Nitrite NEGATIVE, Urine Bilirubin NEGATIVE, Urine Urobilinogen 0.2, Urine Leukocyte Esterase TRACE, Urine RBC (Auto) TRACE-I, Urine RBC 2-5, Urine WBC 5-10, Urine Squamous Epithelial Cells 0-2, Urine Crystals PRESENT, Urine Amorphous Sediment LARGE SOLIS URATES, Urine Bacteria MODERATE, Urine Casts NONE, Urine Mucus NEGATIVE, Urine Culture Indicated CULTURE PENDING 10/29/22 10:25: Potassium Level 4.4, Glucometer 99 10/29/22 16:46: Glucometer 127 10/29/22 20:53: Glucometer 99 10/30/22 05:12: White Blood Count 6.7, Red Blood Count 3.59, Hemoglobin 10.5, Hematocrit 34, Mean Corpuscular Volume 94, Mean Corpuscular Hemoglobin 29, Mean Corpuscular Hemoglobin Concent 31, Red Cell Distribution Width 16.0, Platelet Count 151, Mean Platelet Volume 10.7, Immature Granulocyte % (Auto) 1, Neutrophils (%) (Auto) 76, Lymphocytes (%) (Auto) 15, Monocytes (%) (Auto) 7, Eosinophils (%) (Auto) 1, Basophils (%) (Auto) 0, Neutrophils # (Auto) 5.0, Lymphocytes # (Auto) 1.0, Monocytes # (Auto) 0.5, Eosinophils # (Auto) 0.1, Basophils # (Auto) 0.0, Immature Granulocyte # (Auto) 0.0, Sodium Level 144, Potassium Level 5.1, Chloride Level 106, Carbon Dioxide Level 26, Anion Gap 12, Blood Urea Nitrogen 30, Creatinine 1.18, Estimat Glomerular Filtration Rate 67, BUN/Creatinine Ratio 25, Glucose Level 95, Calcium Level 8.4, Corrected Calcium 9.1, Phosphorus Level 2.9, Magnesium Level 1.9, Total Bilirubin 0.4, Aspartate Amino Transf (AST/SGOT) 21, Alanine Aminotransferase (ALT/SGPT) 15, Alkaline Phosphatase 54, Total Protein 6.4, Albumin 3.1 10/30/22 06:46: Blood Gas Puncture Site R RAD, Blood Gas Patient Temperature 36.5, Arterial Blood pH 7.30, Arterial Blood Partial Pressure CO2 62, Arterial Blood Partial Pressure O2 130, Arterial Blood HCO3 30, Arterial Blood Total CO2 32.3, Arterial Blood Oxygen Saturation 99, Arterial Blood Base Excess 4.3, Maurisio Test YES-POS, Blood Gas Ventilator Setting NO, Blood Gas Inspired Oxygen 80% 10/30/22 10:31: Glucometer 98 10/30/22 16:00: Glucometer 107 10/30/22 21:07: Glucometer 148 10/31/22 03:46: White Blood Count 7.8, Red Blood Count 3.82, Hemoglobin 11.1, Hematocrit 35, Mean Corpuscular Volume 93, Mean Corpuscular Hemoglobin 29, Mean Corpuscular Hem oglobin Concent 31, Red Cell Distribution Width 15.6, Platelet Count 167, Mean Platelet Volume 10.4, Immature Granulocyte % (Auto) 1, Neutrophils (%) (Auto) 74, Lymphocytes (%) (Auto) 16, Monocytes (%) (Auto) 7, Eosinophils (%) (Auto) 2, Basophils (%) (Auto) 0, Neutrophils # (Auto) 5.8, Lymphocytes # (Auto) 1.3, Monocytes # (Auto) 0.6, Eosinophils # (Auto) 0.2, Basophils # (Auto) 0.0, Immature Granulocyte # (Auto) 0.1, Sodium Level 141, Potassium Level 5.1, Chloride Level 106, Carbon Dioxide Level 22, Anion Gap 13, Blood Urea Nitrogen 23, Creatinine 1.08, Estimat Glomerular Filtration Rate 74, BUN/Creatinine Ratio 21, Glucose Level 187, Calcium Level 8.8, Corrected Calcium 9.4, Phosphorus Level 2.5, Magnesium Level 2.1, Total Bilirubin 0.4, Aspartate Amino Transf (AST/SGOT) 18, Alanine Aminotransferase (ALT/SGPT) 11, Alkaline Phosphatase 60, Total Protein 6.9, Albumin 3.3 10/31/22 03:47: Blood Gas Puncture Site LRAD, Blood Gas Patient Temperature 37.1, Arterial Blood pH 7.31, Arterial Blood Partial Pressure CO2 59, Arterial Blood Partial Pressure O2 55, Arterial Blood HCO3 29, Arterial Blood Total CO2 30.8, Arterial Blood Oxygen Saturation 89, Arterial Blood Base Excess 3.3, Maurisio Test YES-POS, Blood Gas Ventilator Setting NO, Blood Gas Inspired Oxygen 35% 10/31/22 06:14: Glucometer 175 10/31/22 10:27: Glucometer 161 10/31/22 15:46: Glucometer 119 10/31/22 20:21: Glucometer 165 11/01/22 03:48: White Blood Count 9.2, Red Blood Count 4.02, Hemoglobin 11.8, Hematocrit 37, Mean Corpuscular Volume 92, Mean Corpuscular Hemoglobin 29, Mean Corpuscular Hemoglobin Concent 32, Red Cell Distribution Width 15.1, Platelet Count 165, Mean Platelet Volume 10.1, Immature Granulocyte % (Auto) 1, Neutrophils (%) (Auto) 72, Lymphocytes (%) (Auto) 17, Monocytes (%) (Auto) 9, Eosinophils (%) (Auto) 1, Basophils (%) (Auto) 0, Neutrophils # (Auto) 6.6, Lymphocytes # (Auto) 1.5, Monocytes # (Auto) 0.9, Eosinophils # (Auto) 0.1, Basophils # (Auto) 0.0, Immature Granulocyte # (Auto) 0.1, Sodium Level 144, Potassium Level 5.1, Chloride Level 108, Carbon Dioxide Level 22, Anion Gap 14, Blood Urea Nitrogen 21, Creatinine 1.01, Estimat Glomerular Filtration Rate 81, BUN/Creatinine Ratio 21, Glucose Level 164, Calcium Level 9.0, Corrected Calcium 9.6, Phosphorus Level 2.8, Magnesium Level 2.0, Total Bilirubin 0.6, Aspartate Amino Transf (AST/SGOT) 17, Alanine Aminotransferase (ALT/SGPT) 15, Alkaline Phosphatase 58, Total Protein 6.8, Albumin 3.2 11/01/22 05:00: Blood Gas Puncture Site LEFT RADIAL, Blood Gas Patient Temperature 36.2, Arterial Blood pH 7.35, Arterial Blood Partial Pressure CO2 50, Arterial Blood Partial Pressure O2 60, Arterial Blood HCO3 27, Arterial Blood Total CO2 28.7, Arterial Blood Oxygen Saturation 92, Arterial Blood Base Excess 1.9, Maurisio Test YES-POS, Blood Gas Ventilator Setting NO, Blood Gas Inspired Oxygen 40% 11/01/22 10:47: Glucometer 137 11/01/22 13:50: White Blood Count 9.8, Red Blood Count 3.99, Hemoglobin 11.6, Hematocrit 37, Mean Corpuscular Volume 92, Mean Corpuscular Hemoglobin 29, Mean Corpuscular Hemoglobin Concent 32, Red Cell Distribution Width 15.0, Platelet Count 197, Mean Platelet Volume 10.3, Immature Granulocyte % (Auto) 1, Neutrophils (%) (Auto) 86, Lymphocytes (%) (Auto) 6, Monocytes (%) (Auto) 6, Eosinophils (%) (Auto) 1, Basophils (%) (Auto) 0, Neutrophils # (Auto) 8.4, Lymphocytes # (Auto) 0.5, Monocytes # (Auto) 0.6, Eosinophils # (Auto) 0.1, Basophils # (Auto) 0.0, Immature Granulocyte # (Auto) 0.1, Neutrophils % (Manual) 73, Lymphocytes % (Ma nual) 8, Monocytes % (Manual) 6, Eosinophils % (Manual) 1, Basophils % (Manual) 1, Band Neutrophils 11, Toxic Granulation 1+, Polychromasia SLIGHT, Basophilic Stippling SLIGHT, Anisocytosis SLIGHT, Sodium Level 143, Potassium Level 6.0, Chloride Level 106, Carbon Dioxide Level 24, Anion Gap 13, Blood Urea Nitrogen 25, Creatinine 1.10, Estimat Glomerular Filtration Rate 73, BUN/Creatinine Ratio 23, Glucose Level 169, Calcium Level 9.1, Triglycerides Level 158 11/01/22 14:51: Blood Gas Puncture Site RT RADIAL, Blood Gas Patient Temperature 36.1, Arterial Blood pH 7.38, Arterial Blood Partial Pressure CO2 47, Arterial Blood Partial Pressure O2 80, Arterial Blood HCO3 27, Arterial Blood Total CO2 28.7, Arterial Blood Oxygen Saturation 97, Arterial Blood Base Excess 2.4, Maurisio Test YES-POS, Blood Gas Ventilator Setting NO, Blood Gas Inspired Oxygen 65% 11/01/22 18:14: Glucometer 163 11/02/22 00:04: Glucometer 141 11/02/22 01:05: Blood Gas Puncture Site RIGHT RADIAL, Blood Gas Patient Temperature 37, Arterial Blood pH 7.37, Arterial Blood Partial Pressure CO2 50, Arterial Blood Partial Pressure O2 74, Arterial Blood HCO3 28, Arterial Blood Total CO2 29.8, Arterial Blood Oxygen Saturation 95, Arterial Blood Base Excess 3.4, Maurisio Test YES-POS, Blood Gas Ventilator Setting YES, Blood Gas Inspired Oxygen NA 11/02/22 03:55: Blood Gas Puncture Site RIGHT RADIAL, Blood Gas Patient Temperature 98.6, Arterial Blood pH 7.38, Arterial Blood Partial Pressure CO2 50, Arterial Blood Partial Pressure O2 69, Arterial Blood HCO3 29, Arterial Blood Total CO2 30.4, Arterial Blood Oxygen Saturation 94, Arterial Blood Base Excess 4.1, Maurisio Test YES-POS, Blood Gas Ventilator Setting YES, Blood Gas Inspired Oxygen NA 11/02/22 04:11: White Blood Count 20.1, Red Blood Count 3.77, Hemoglobin 11.7, Hematocrit 35, Mean Corpuscular Volume 92, Mean Corpuscular Hemoglobin 31, Mean Corpuscular Hemoglobin Concent 34, Red Cell Distribution Width 16.0, Platelet Count 306, Mean Platelet Volume 9.6, Immature Granulocyte % (Auto) 14, Neutrophils (%) (Auto) 77, Lymphocytes (%) (Auto) 5, Monocytes (%) (Auto) 4, Eosinophils (%) (Auto) 0, Basophils (%) (Auto) 1, Neutrophils # (Auto) 15.4, Lymphocytes # (Auto) 1.0, Monocytes # (Auto) 0.7, Eosinophils # (Auto) 0.0, Basophils # (Auto) 0.1, Immature Granulocyte # (Auto) 2.9, Sodium Level 137, Potassium Level 5.3, Chloride Level 103, Carbon Dioxide Level 22, Anion Gap 12, Blood Urea Nitrogen 4 5, Creatinine 1.09, Estimat Glomerular Filtration Rate 73, BUN/Creatinine Ratio 41, Glucose Level 166, Calcium Level 8.8, Corrected Calcium 9.7, Phosphorus Level 4.3, Magnesium Level 2.2, Total Bilirubin 0.3, Aspartate Amino Transf (AST/SGOT) 20, Alanine Aminotransferase (ALT/SGPT) 22, Alkaline Phosphatase 53, Total Protein 5.3, Albumin 2.9 11/02/22 17:39: Glucometer 144 11/02/22 23:55: Glucometer 151 11/03/22 03:19: White Blood Count 7.6, Red Blood Count 3.51, Hemoglobin 10.4, Hematocrit 32, Mean Corpuscular Volume 90, Mean Corpuscular Hemoglobin 30, Mean Corpuscular Hemoglobin Concent 33, Red Cell Distribution Width 15.2, Platelet Count 220, Mean Platelet Volume 10.3, Immature Granulocyte % (Auto) 0, Neutrophils (%) (Auto) 77, Lymphocytes (%) (Auto) 12, Monocytes (%) (Auto) 7, Eosinophils (%) (Auto) 4, Basophils (%) (Auto) 0, Neutrophils # (Auto) 5.9, Lymphocytes # (Auto) 0.9, Monocytes # (Auto) 0.5, Eosinophils # (Auto) 0.3, Basophils # (Auto) 0.0, Immature Granulocyte # (Auto) 0.0, Sodium Level 140, Potassium Level 3.3, Chloride Level 104, Carbon Dioxide Level 22, Anion Gap 14, Blood Urea Nitrogen 21, Creatinine 0.92, Estimat Glomerular Filtration Rate 90, BUN/Creatinine Ratio 23, Glucose Level 131, Calcium Level 8.0, Corrected Calcium 9.1, Phosphorus Level 3.1, Magnesium Level 1.2, Total Bilirubin 0.8, Aspartate Amino Transf (AST/SGOT) 12, Alanine Aminotransferase (ALT/SGPT) 6, Alkaline Phosphatase 52, Total Protein 6.4, Albumin 2.6, Triglycerides Level 689 11/03/22 03:25: Blood Gas Puncture Site LEFT RADIAL, Blood Gas Patient Temperature 36.2, Arteri al Blood pH 7.44, Arterial Blood Partial Pressure CO2 45, Arterial Blood Partial Pressure O2 57, Arterial Blood HCO3 31, Arterial Blood Total CO2 32.0, Arterial Blood Oxygen Saturation 91, Arterial Blood Base Excess 6.2, Maurisio Test YES-POS, Blood Gas Ventilator Setting YES, Blood Gas Inspired Oxygen NA 11/03/22 11:52: Glucometer 152 11/03/22 18:42: Glucometer 157 11/03/22 23:55: Glucometer 142 11/04/22 03:29: White Blood Count 7.3, Red Blood Count 3.54, Hemoglobin 10.6, Hematocrit 32, Mean Corpuscular Volume 90, Mean Corpuscular Hemoglobin 30, Mean Corpuscular Hemoglobin Concent 33, Red Cell Distribution Width 15.1, Platelet Count 245, Mean Platelet Volume 10.3, Immature Granulocyte % (Auto) 1, Neutrophils (%) (Auto) 74, Lymphocytes (%) (Auto) 12, Monocytes (%) (Auto) 7, Eosinophils (%) (Auto) 6, Basophils (%) (Auto) 0, Neutrophils # (Auto) 5.4, Lymphocytes # (Auto) 0.9, Monocytes # (Auto) 0.5, Eosinophils # (Auto) 0.4, Basophils # (Auto) 0.0, Immature Granulocyte # (Auto) 0.1, Sodium Level 137, Potassium Level 3.5, Chloride Level 98, Carbon Dioxide Level 23, Anion Gap 16, Blood Urea Nitrogen 23, Creatinine 1.14, Estimat Glomerular Filtration Rate 70, BUN/Creatinine Ratio 20, Glucose Level 164, Calcium Level 8.7, Corrected Calcium 9.7, Phosphorus Level 3.8, Magnesium Level 1.8, Total Bilirubin 0.9, Aspartate Amino Transf (AST/SGOT) 14, Alanine Aminotransferase (ALT/SGPT) 10, Alkaline Phosphatase 54, Total Protein 6.9, Albumin 2.7 11/04/22 03:32: Blood Gas Puncture Site RIGHT RADIAL, Blood Gas Patient Temperature 36.2, Arterial Blood pH 7.44, Arterial Blood Partial Pressure CO2 46, Arterial Blood Partial Pressure O2 58, Arterial Blood HCO3 31, Arterial Blood Total CO2 32.6, Arterial Blood Oxygen Saturation 90, Arterial Blood Base Excess 6.8, Maurisio Test YES-POS, Blood Gas Ventilator Setting YES, Blood Gas Inspired Oxygen 75% 11/04/22 12:02: Glucometer 183 11/04/22 17:45: Glucometer 185 11/05/22 00:02: Glucometer 181 11/05/22 04:20: Blood Gas Puncture Site RIGHT RADIAL, Blood Gas Patient Temperature 37, Arterial Blood pH 7.38, Arterial Blood Partial Pressure CO2 50, Arterial Blood Partial Pressure O2 71, Arterial Blood HCO3 29, Arterial Blood Total CO2 30.1, Arterial Blood Oxygen Saturation 93, Arterial Blood Base Excess 3.8, Maurisio Test YES-POS, Blood Gas Ventilator Setting YES, Blood Gas Inspired Oxygen 60% 11/05/22 04:40: White Blood Count 6.7, Red Blood Count 3.37, Hemoglobin 9.6, Hematocrit 31, Mean Corpuscular Volume 92, Mean Corpuscular Hemoglobin 29, Mean Corpuscular Hemoglobin Concent 31, Red Cell Distribution Width 15.6, Platelet Count 269, Mean Platelet Volume 10.4, Immature Granulocyte % (Auto) 1, Neutrophils (%) (Auto) 67, Lymphocytes (%) (Auto) 18, Monocytes (%) (Auto) 8, Eosinophils (%) (Auto) 5, Basophils (%) (Auto) 1, Neutrophils # (Auto) 4.5, Lymphocytes # (Auto) 1.2, Monocytes # (Auto) 0.6, Eosinophils # (Auto) 0.4, Basophils # (Auto) 0.0, Immature Granulocyte # (Auto) 0.1, Sodium Level 140, Potassium Level 4.1, Chloride Level 102, Carbon Dioxide Level 26, Anion Gap 12, Blood Urea Nitrogen 28, Creatinine 1.47, Estimat Glomerular Filtration Rate 51, BUN/Creatinine Ratio 19, Glucose Level 205, Calcium Level 8.7, Corrected Calcium 9.8, Phosphorus Level 3.9, Magnesium Level 1.8, Total Bilirubin 0.8, Aspartate Amino Transf (AST/SGOT) 26, Alanine Aminotransferase (ALT/SGPT) 9, Alkaline Phosphatase 61, Total Protein 6.6, Albumin 2.6, Triglycerides Level 196 11/05/22 11:48: Glucometer 200 11/05/22 17:26: Glucometer 196 11/06/22 00:07: Glucometer 194 11/06/22 04:30: White Blood Count 6.8, Red Blood Count 3.37, Hemoglobin 9.7, Hematocrit 31, Mean Corpuscular Volume 92, Mean Corpuscular Hemoglobin 29, Mean Corpuscular Hemoglobin Concent 31, Red Cell Distribution Width 15.9, Platelet Count 277, Mean Platelet Volume 10.4, Immature Granulocyte % (Auto) 1, Neutrophils (%) (Auto) 69, Lymphocytes (%) (Auto) 15, Monocytes (%) (Auto) 10, Eosinophils (%) (Auto) 4, Basophils (%) (Auto) 1, Neutrophils # (Auto) 4.7, Lymphocytes # (Auto) 1.0, Monocytes # (Auto) 0.7, Eosinophils # (Auto) 0.3, Basophils # (Auto) 0.0, Immature Granulocyte # (Auto) 0.1, Blood Gas Puncture Site LEFT RADIAL, Blood Gas Patient Temperature 36.6, Arterial Blood pH 7.34, Arterial Blood Partial Pressure CO2 54, Arterial Blood Partial Pressure O2 68, Arterial Blood HCO3 28, Arterial Blood Total CO2 30.0, Arterial Blood Oxygen Saturation 92, Arterial Blood Base Excess 3.0, Maurisio Test YES-POS, Blood Gas Ventilator Setting YES, Blood Gas Inspired Oxygen 65%, Sodium Level 141, Potassium Level 3.9, Chloride Level 105, Carbon Dioxide Level 25, Anion Gap 11, Blood Urea Nitrogen 28, Creatinine 1.39, Estimat Glomerular Filtration Rate 55, BUN/Creatinine Ratio 20, Glucose Level 206, Calcium Level 8.8, Corrected Calcium 9.9, Phosphorus Level 3.4, Magnesium Level 1.6, Total Bilirubin 0.8, Aspartate Amino Transf (AST/SGOT) 33, Alanine Aminotransferase (ALT/SGPT) 14, Alkaline Phosphatase 68, Total Protein 6.7, Albumin 2.6 11/06/22 13:01: Glucometer 213 11/06/22 18:27: Glucometer 187 11/07/22 04:15: White Blood Count 7.9, Red Blood Count 3.16, Hemoglobin 8.9, Hematocrit 29, Mean Corpuscular Volume 93, Mean Corpuscular Hemoglobin 28, Mean Corpuscular Hemoglobin Concent 30, Red Cell Distribution Width 16.0, Platelet Count 269, Mean Platelet Volume 10.4, Immature Granulocyte % (Auto) 2, Neutrophils (%) (Auto) 66, Lymphocytes (%) (Auto) 16, Monocytes (%) (Auto) 11, Eosinophils (%) (Auto) 5, Basophils (%) (Auto) 1, Neutrophils # (Auto) 5.2, Lymphocytes # (Auto) 1.3, Monocytes # (Auto) 0.8, Eosinophils # (Auto) 0.4, Basophils # (Auto) 0.1, Immature Granulocyte # (Auto) 0.1, Sodium Level 140, Potassium Level 4.4, Chloride Level 106, Carbon Dioxide Level 23, Anion Gap 11, Blood Urea Nitrogen 34, Creatinine 2.08, Estimat Glomerular Filtration Rate 34, BUN/Creatinine Ratio 16, Glucose Level 192, Calcium Level 8.7, Corrected Calcium 10.0, Phosphorus Level 3.9, Magnesium Level 1.8, Total Bilirubin 1.1, Aspartate Amino Transf (AST/SGOT) 60, Alanine Aminotransferase (ALT/SGPT) 17, Alkaline Phosphatase 70, Total Protein 6.5, Albumin 2.4, Triglycerides Level 174 11/07/22 04:22: Blood Gas Puncture Site LRAD, Blood Gas Patient Temperature 36.6, Arterial Blood pH 7.32, Arterial Blood Partial Pressure CO2 51, Arterial Blood Partial Pressure O2 64, Arterial Blood HCO3 26, Arterial Blood Total CO2 27.7, Arterial Blood Oxygen Saturation 92, Arterial Blood Base Excess 0.6, Maurisio Test YES-POS, Blood Gas Ventilator Setting YES, Blood Gas Inspired Oxygen 65% 11/07/22 11:37: Glucometer 175 11/07/22 17:45: Glucometer 166 11/08/22 04:55: White Blood Count 8.4, Red Blood Count 2.92, Hemoglobin 8.7, Hematocrit 27, Mean Corpuscular Volume 93, Mean Corpuscular Hemoglobin 30, Mean Corpuscular Hemogl obin Concent 32, Red Cell Distribution Width 16.0, Platelet Count 289, Mean Platelet Volume 11.0, Immature Granulocyte % (Auto) 3, Neutrophils (%) (Auto) 71, Lymphocytes (%) (Auto) 14, Monocytes (%) (Auto) 9, Eosinophils (%) (Auto) 3, Basophils (%) (Auto) 1, Neutrophils # (Auto) 5.9, Lymphocytes # (Auto) 1.2, Monocytes # (Auto) 0.7, Eosinophils # (Auto) 0.3, Basophils # (Auto) 0.1, Immature Granulocyte # (Auto) 0.2, Sodium Level 138, Potassium Level 4.2, Chloride Level 106, Carbon Dioxide Level 19, Anion Gap 13, Blood Urea Nitrogen 35, Creatinine 2.01, Estimat Glomerular Filtration Rate 35, BUN/Creatinine Ratio 17, Glucose Level 170, Calcium Level 8.2, Corrected Calcium 9.6, Phosphorus Level 4.1, Magnesium Level 1.9, Total Bilirubin 1.0, Aspartate Amino Transf (AST/SGOT) 41, Alanine Aminotransferase (ALT/SGPT) 26, Alkaline Phosphatase 74, Total Protein 6.5, Albumin 2.2 11/08/22 05:00: Blood Gas Puncture Site L RAD, Blood Gas Patient Temperature 37.2, Arterial Blood pH 7.30, Arterial Blood Partial Pressure CO2 51, Arterial Blood Partial Pressure O2 73, Arterial Blood HCO3 24, Arterial Blood Total CO2 25.6, Arterial Blood Oxygen Saturation 92, Arterial Blood Base Excess -1.5, Maurisio Test YES-POS, Blood Gas Ventilator Setting YES, Blood Gas Inspired Oxygen 75% 11/08/22 11:24: Glucometer 156 11/08/22 18:21: Glucometer 170 11/08/22 23:52: Glucometer 137 11/09/22 00:32: Blood Gas Puncture Site RR, Blood Gas Patient Temperature 36.4, Arterial Blood pH 7.24, Arterial Blood Partial Pressure CO2 51, Arterial Blood Partial Pressure O2 77, Arterial Blood HCO3 22, Arterial Blood Total CO2 23.1, Arterial Blood Oxygen Saturation 94, Arterial Blood Base Excess -4.9, Maurisio Test YES-POS, Blood Gas Ventilator Setting YES, Blood Gas Inspired Oxygen 100% 11/09/22 03:51: White Blood Count 8.0, Red Blood Count 2.84, Hemoglobin 8.5, Hematocrit 26, Mean Corpuscular Volume 92, Mean Corpuscular Hemoglobin 30, Mean Corpuscular Hemoglobin Concent 32, Red Cell Distribution Width 16.3, Platelet Count 310, Mean Platelet Volume 11.1, Immature Granulocyte % (Auto) 3, Neutrophils (%) (Auto) 70, Lymphocytes (%) (Auto) 15, Monocytes (%) (Auto) 9, Eosinophils (%) (Auto) 3, Basophils (%) (Auto) 1, Neutrophils # (Auto) 5.6, Lymphocytes # (Auto) 1.2, Monocytes # (Auto) 0.7, Eosinophils # (Auto) 0.2, Basophils # (Auto) 0.0, Immature Granulocyte # (Auto) 0.3, Sodium Level 138, Potassium Level 4.2, Chloride Level 109, Carbon Dioxide Level 17, Anion Gap 12, Blood Urea Nitrogen 39, Creatinine 2.22, Estimat Glomerular Filtration Rate 31, BUN/Creatinine Ratio 18, Glucose Level 149, Calcium Level 7.9, Magnesium Level 1.6, Triglycerides Level 945 11/09/22 03:55: Blood Gas Puncture Site RR, Blood Gas Patient Temperature 36.1, Arterial Blood pH 7.31, Arterial Blood Partial Pressure CO2 42, Arterial Blood Partial Pressure O2 78, Arterial Blood HCO3 21, Arterial Blood Total CO2 21.9, Arterial Blood Oxygen Saturation 96, Arterial Blood Base Excess -4.8, Maurisio Test YES-POS, Blood Gas Ventilator Setting YES, Blood Gas Inspired Oxygen 100% 11/09/22 11:51: Glucometer 156 11/09/22 17:40: Glucometer 151 11/09/22 23:59: Glucometer 131 11/10/22 04:05: Blood Gas Puncture Site LRAD, Blood Gas Patient Temperature 37, Arterial Blood pH 7.26, Arterial Blood Partial Pressure CO2 43, Arterial Blood Partial Pressure O2 76, Arterial Blood HCO3 19, Arterial Blood Total CO2 20.0, Arterial Blood Oxygen Saturation 94, Arterial Blood Base Excess -7.1, Maurisio Test YES-POS, Blood Gas Ventilator Setting NO, Blood Gas Inspired Oxygen 100% 11/10/22 04:12: White Blood Count 8.3, Red Blood Count 2.89, Hemoglobin 8.4, Hematocrit 27, Mean Corpuscular Volume 92, Mean Corpuscular Hemoglobin 29, Mean Corpuscular Hemoglobin Concent 32, Red Cell Distribution Width 16.0, Platelet Count 322, Mean Platelet Volume 11.0, Immature Granulocyte % (Auto) 4, Neutrophils (%) (Auto) 70, Lymphocytes (%) (Auto) 13, Monocytes (%) (Auto) 10, Eosinophils (%) (Auto) 3, Basophils (%) (Auto) 1, Neutrophils # (Auto) 5.8, Lymphocytes # (Auto) 1.0, Monocytes # (Auto) 0.8, Eosinophils # (Auto) 0.3, Basophils # (Auto) 0.1, Immature Granulocyte # (Auto) 0.3, Sodium Level 139, Potassium Level 4.3, Chloride Level 111, Carbon Dioxide Level 14, Anion Gap 14, Blood Urea Nitrogen 40, Creatinine 2.17, Estimat Glomerular Filtration Rate 32, BUN/Creatinine Ratio 18, Glucose Level 132, Calcium Level 7.9, Magnesium Level 1.5 11/10/22 11:25: Glucometer 157 Discharge Home Medications: Active Scripts Active Reported Furosemide 20 Mg Tablet 40 Mg PO DAILY TAKES 2 (20MG) TABS Flomax (Tamsulosin HCl) 0.4 Mg Cap 0.4 Mg PO 1800 Symbicort 160-4.5 Mcg Inhaler (Budesonide/Formoterol Fumarate) 160 Mcg-4.5 Mcg/Actuation Hfa.aer.ad 2 Puff INH BID Guaifenesin 200 Mg Tablet 200 Mg PO BID Losartan Potassium 25 Mg Tablet 25 Mg PO DAILY Neurontin (Gabapentin) 300 Mg Capsule 600 Mg PO BID TAKES 2 (300MG) CAPS Levetiracetam 500 Mg Tablet 1,000 Mg PO BID TAKES 2 (500MG) TABS Atorvastatin Calcium 20 Mg Tablet 20 Mg PO HS Famotidine 20 Mg Tablet 20 Mg PO BID Ventolin Hfa (Albuterol Sulfate) 1 Puff Puff 2 Puff IH Q4H PRN Albuterol Sulfate 2.5 Mg/0.5 Ml Vial.neb 2.5 Mg INH Q4H PRN Hydrocodone-Acetamin 5-325 mg (Hydrocodone/Acetaminophen) 1 Each Tablet 1 Ea PO BID PRN Mirtazapine 15 Mg Tablet 15 Mg PO HS PRN Glimepiride 2 Mg Tablet 2 Mg PO DAILY Sildenafil (Sildenafil Citrate) 20 Mg Tablet 20 Mg PO TID Aspirin EC (Aspirin) 81 Mg Tablet.dr 81 Mg PO DAILY Clopidogrel (Clopidogrel Bisulfate) 75 Mg Tablet 75 Mg PO DAILY Multivitamins with Minerals (Multivitamin with Minerals) 1 Each Tablet 1 Tab PO DAILY Instructions to patient/family Please see electronic discharge instructions given to patient. Diagnosis/Problems Diagnosis/Problems (1) Respiratory failure, acute and chronic (2) Acute on chronic diastolic heart failure with preserved ejection fraction Status: Acute (3) Noncompliance Status: Chronic (4) Hypertension Status: Chronic (5) PVD (peripheral vascular disease) Status: Chronic JASPER LONG DO Nov 10, 2022 15:09
[2022-11-10] MEDS ORDERED: fentaNYL DRIP PRE-MIX 250 ML IV SCH (15:15)
[2022-11-10] MEDS ORDERED: DexMEDEtomidine 250 ML DRIP 250 ML IV SCH (15:15)
[2022-11-10] MEDS ORDERED: PROPOFOL DRIP (ICU) 100 ML IV SCH (15:15)
[2022-11-10 16:07] VITALS: BP 117/58
== END 2022-11-10 17:22 | disposition expired | DRG 207 ==
LOC: ICU 19:33
PROVIDERS: ADMIT Internal Medicine; ATTEND Internal Medicine
PROC: 5A09357 Assistance with Respiratory Ventilation, Less than 24 Consecutive Hours, Continuous Positive Airway Pressure (ICD-10-PCS; 2022-10-28)
PROC: 5A0935A Assistance with Respiratory Ventilation, Less than 24 Consecutive Hours, High Flow/Velocity Cannula (ICD-10-PCS; 2022-10-29)
PROC: 5A1955Z Respiratory Ventilation, Greater than 96 Consecutive Hours (ICD-10-PCS; principal; 2022-11-01)
PROC: 0BH18EZ Insertion of Endotracheal Airway into Trachea, Via Natural or Artificial Opening Endoscopic (ICD-10-PCS; 2022-11-01)
DX: J96.22 Acute and chronic respiratory failure with hypercapnia (principal); J18.9 Pneumonia, unspecified organism; I21.A1 Myocardial infarction type 2; I50.43 Acute on chronic combined systolic (congestive) and diastolic (congestive) heart failure; G93.41 Metabolic encephalopathy; N17.9 Acute kidney failure, unspecified; I13.0 Hypertensive heart and chronic kidney disease with heart failure and stage 1 through stage 4 chronic kidney disease, or unspecified chronic kidney disease; J44.1 Chronic obstructive pulmonary disease with (acute) exacerbation; J44.0 Chronic obstructive pulmonary disease with (acute) lower respiratory infection; E66.2 Morbid (severe) obesity with alveolar hypoventilation; Z68.41 Body mass index [BMI] 40.0-44.9, adult; Z66 Do not resuscitate; Z51.5 Encounter for palliative care; E11.22 Type 2 diabetes mellitus with diabetic chronic kidney disease; N18.30 Chronic kidney disease, stage 3 unspecified; E11.42 Type 2 diabetes mellitus with diabetic polyneuropathy; I25.10 Atherosclerotic heart disease of native coronary artery without angina pectoris; I73.9 Peripheral vascular disease, unspecified; D75.1 Secondary polycythemia; D69.6 Thrombocytopenia, unspecified; M17.11 Unilateral primary osteoarthritis, right knee; Z86.16 Personal history of COVID-19; Z79.84 Long term (current) use of oral hypoglycemic drugs; Z95.1 Presence of aortocoronary bypass graft; Z91.199 Patient's noncompliance with other medical treatment and regimen due to unspecified reason; E78.5 Hyperlipidemia, unspecified; Z79.82 Long term (current) use of aspirin
CPT/HCPCS: 36415; 36569; 36600; 71045; 74018; 76937; 80048; 80053; 81000; 82805; 82947; 83605; 83735; 83880; 84100; 84132; 84145; 84478; 84484; 85007; 85025; 85027; 85379; 85610; 85730; 87040; 87081; 87088; 93005; 93306; 94002; 94003; 94640; 94660; 94799